=== PATIENT | female | born 1940 | race Caucasian/White ===

== ENCOUNTER → 2018-12-23 14:48 | Outpatient (CLI) | payer MEDICARE, OTHER, SELFPAY ==
[2018-12-22 13:47] VITALS: BMI 26.0
[2018-12-23 16:11] LABS: Mucous, Urine 0 SEEN /hpf (<or=2+)
[2018-12-23 16:23] LABS: Color, Urine Yellow (Yellow); Glucose, Dipstick Normal (Normal); Ketone-Dipstick Negative (Negative); Leukocyte Esterase-Dipstick 500 /ul (Negative); Nitrite-Dipstick Positive (Negative); Occult Blood-Urine 250 /ul (Negative); Protein-Dipstick 30 mg/dl (Negative); Urine Bilirubin Dipstick Negative (Negative); Urine Clarity Cloudy (Clear); Urine Urobilinogen Normal (Normal)
[2018-12-23 17:07] LABS: Bacteria 1+ /hpf (None Seen); Red Blood Cells-Urine 25-50 SEEN /hpf (0-5); Squamous Epithelial Cells - UA 0-5 SEEN /hpf (5-10); White Blood Cells 10-25 SEEN /hpf (0-5)
== END ==
PROVIDERS: Referring Provider Physician Assistant; Visit Provider Physician Assistant
DX: R30.0 Dysuria (principal)
CPT/HCPCS: 81001; 87077; 87086; 87088; 87186

== ENCOUNTER → 2020-07-12 16:30 | Outpatient (CLI) | payer MEDICARE, OTHER, SELFPAY ==
[2019-07-15 10:30] VITALS: BMI 26.0
--- NOTE | 2020-07-12 16:34 | RAD_ITS ---
STUDY: X-RAY - LEFT HAND REASON FOR EXAM: Female, 80 years old. fell today, 3rd and 4th mtp joints painful and starting to bruise TECHNIQUE: 3 view(s) of the hand. COMPARISON: None. FINDINGS: Normal radiocarpal articulation. Normal distal radioulnar joint. Normal visualized carpal bones. Normal carpal articulations Normal carpometacarpal articulation of the thumb. Normal second through fifth carpometacarpal joints. Normal metacarpi. No visualized acute fracture. Some mild degenerative changes are present in several digits. The soft tissue structures are unremarkable. RAD/Hand Min 3 Views IMPRESSION: No visualized acute process. Electronically Signed: Norris Jane MD at 17:37 EDT , Service support ,
== END ==
PROVIDERS: Referring Provider Physician Assistant Surgical; Visit Provider Physician Assistant Surgical
DX: S60.222A Contusion of left hand, initial encounter (principal); S60.00XA Contusion of unspecified finger without damage to nail, initial encounter; W19.XXXA Unspecified fall, initial encounter
CPT/HCPCS: 73130

== ENCOUNTER 2021-06-05 10:02 | Outpatient (CLI) | payer MEDICARE, OTHER, SELFPAY ==
[2021-06-05 12:07] LABS: Absolute Lymphocyte Count 20.85 X10^3/uL (0.83-4.51); Absolute Neutrophil Count 4.3 X10^3/uL (2.0-7.7); Basophil# 0.08 X10^3/uL; Basophil% 0.3 % (0-1); Eosinophil# 0.19 X10^3/uL; Eosinophils% 0.7 % (0-5); Hematocrit 37.7 % (37-47); Hemoglobin 11.7 g/dL (12.0-15.0); Lymphocyte # 20.85 X10^3/ul (0.83-4.51); Lymphocyte % 80.5 % (19-41); Mean Corpuscular Hgb 29.5 pg (27.0-32.0); Mean Platelet Vol. 10.4 fl (6.2-12.0); Monocyte# 0.44 X10^3/uL; Monocyte% 1.7 % (0-10); NRBC Flagged by Analyzer 0 % (0-5); Neutrophil % 16.6 % (47-70); POSITIVE DIFFERENTIAL YES; POSITIVE MORPHOLOGY YES; Platelet Count 229 K/mm3 (150-450); RBC Distribution Width CV 14.2 % (11.6-14.6); RBC Distribution Width SD 49.2 fl (35.1-43.9); Red Blood Count 3.97 M/mm3 (4.2-5.4); White Blood Count 25.9 K/mm3 (4.4-11.0)
[2021-06-05 12:15] LABS: Differential Indicated SCAN CRITERIA MET
[2021-06-05 12:27] LABS: Vitamin D,25 Hydroxy 20.4 ng/mL
[2021-06-05 12:43] LABS: AST(SGOT) 22 U/L (15-37); Alanine Aminotransfer ALT/SGPT 23 U/L (13-56); Albumin, Serum 3.5 g/dL (3.2-5.0); Alkaline Phosphatase 76 U/L (45-117); Anion Gap 4 (5-15); BUN 15 mg/dL (7-18); Calcium,Total 9.2 mg/dL (8.5-10.1); Chloride 111 mmol/L (98-107); Cholesterol 188 mg/dL (200); EST Glomerular Filtration Rate 56 mL/min (>60); Est Glom Filt Rate - Afr Amer 68 mL/min (>60); Globulin 3.6 g/dL (2.2-4.2); Glucose 99 mg/dL (74-106); High Density Lipoprotein 76 mg/dL; Potassium 4.7 mmol/L (3.5-5.1); Protein, Total 7.1 g/dL (6.4-8.2); Sodium Level 140 mmol/L (136-145); Thyroid Stim Hormone (TSH) 6.33 uIU/mL (0.358-3.74); Triglycerides 89 mg/dL; Very Low Density Lipoprotein 18 mg/dL (5-40)
[2021-06-05 13:49] LABS: Free T3 2.6 pg/mL (2.18-3.98); T4 Free Direct 0.81 ng/dL (0.76-1.46)
== END 2021-06-05 23:59 | disposition home or self-care (01) ==
LOC: BIMLAB 10:03
PROVIDERS: PCP Internal Medicine; Referring Provider Internal Medicine; Visit Provider Internal Medicine
DX: I35.0 Nonrheumatic aortic (valve) stenosis (principal); I35.1 Nonrheumatic aortic (valve) insufficiency; R03.0 Elevated blood-pressure reading, without diagnosis of hypertension; H40.9 Unspecified glaucoma; E55.9 Vitamin D deficiency, unspecified
CPT/HCPCS: 36415; 80053; 80061; 82306; 84439; 84443; 84481; 85025

== ENCOUNTER 2021-06-05 14:10 | Outpatient (CLI) | payer MEDICARE, OTHER, SELFPAY ==
--- NOTE | 2021-06-05 14:11 | ECHOD_ITS ---
Reason For Study: Preop Procedure This was a 2D Doppler, Color Flow transthoracic echocardiogram. Exam performed in department. Left Ventricle Normal LV size. Left ventricular systolic function is normal. Stage 1 diastolic dysfunction. No regional wall motion abnormalities noted. Right Ventricle Normal RV size. Normal systolic function. Atria Normal left atrium. Normal right atrium. Mitral Valve Normal mitral valve. Mild (1+) eccentric mitral valve insufficiency. Tricuspid Valve Normal tricuspid valve. Mild to moderate (1-2+) tricuspid valve insufficiency. Pulmonary artery systolic pressure is 40 mmHg. Aortic Valve Trisinus/trileaflet aortic valve. Moderate focal aortic valve calcification. Peak aortic valve gradient 78 mmHg. Mean aortic valve gradient 41 mmHg. Severe aortic stenosis. Mild (1+) aortic valve insufficiency. Pericardium/Pleural No pericardial effusion. MMode/2D Measurements & Calculations LVIDd: 4.6 cm IVSd: 0.78 cm LVOT diam: 1.8 cm LVIDs: 2.6 cm LVPWd: 0.81 cm LVOT area: 2.5 cm2 RVDd: 2.9 cm FS: 43.5 % Ao root diam: 2.6 cm LAV(MOD-bp): 35.2 ml LVAd ap4: 22.5 cm2 LAV(MOD-bp) Indexed: 23.6 ml/m2 LVLd ap4: 7.2 cm LAV(MOD-sp2): 41.9 ml EDV(MOD-sp4): 57.5 ml LAV(MOD-sp4): 28.6 ml EDV(sp4-el): 59.9 ml LVAs ap4: 11.0 cm2 LVLs ap4: 5.5 cm ESV(MOD-sp4): 17.7 ml ESV(sp4-el): 18.6 ml EF(MOD-sp4): 69.2 % EF(sp4-el): 69.0 % SV(MOD-sp4): 39.8 ml SV(sp4-el): 41.4 ml LA A4 area: 13.0 cm2 LA dimension(2D): 4.3 cm RA A4 area: 12.7 cm2 Doppler Measurements & Calculations MV E max moi: 84.1 cm/sec Med Peak E' Moi: 6.9 cm/sec Ao V2 max: 442.7 cm/sec MV A max moi: 115.4 cm/sec E/E' med: 12.2 Ao max P.4 mmHg MV E/A: 0.73 Ao V2 mean: 302.6 cm/sec Ao mean P.1 mmHg Ao V2 VTI: 106.4 cm THALIA(I,D): 0.74 cm2 THALIA(V,D): 0.74 cm2 AI max moi: 481.0 cm/sec LV V1 max: 130.0 cm/sec SV(LVOT): 78.6 ml AI max P.8 mmHg LV V1 max P.8 mmHg AI dec slope: 357.3 cm/sec2 LV V1 mean P.5 mmHg AI P1/2t: 394.4 msec LV V1 mean: 87.8 cm/sec LV V1 VTI: 31.1 cm PA V2 max: 102.0 cm/sec TR max moi: 303.6 cm/sec TR max P.9 mmHg ECHO/Echo Complete Interpretation Summary Normal LV size. Left ventricular systolic function is normal. Stage 1 diastolic dysfunction. Severe aortic stenosis. Mild (1+) aortic valve insufficiency. Mean aortic valve gradient 41 mmHg. Ordering Physician: Megan Bernardo Referring Physician: Megan Bernardo Performed By: Ilana Eldridge RDCS, RVT
--- NOTE | 2021-06-06 10:10 | EKG12_ITS ---
Test Reason : PRE OP Blood Pressure : / mmHG Vent. Rate : 063 BPM Atrial Rate : 063 BPM P-R Int : 170 ms QRS Dur : 084 ms QT Int : 428 ms P-R-T Axes : 066 002 046 degrees QTc Int : 437 ms Normal sinus rhythm Nonspecific ST abnormality Abnormal ECG Confirmed by WILL ALONZO, ENOCH ([id number]), publishing editor RUSTY GABRIEL ([id number]) on 06/06/2021 10:11:14 AM Referred By: Megan Bernardo Confirmed By:ENOCH SOLIS MD
== END 2021-06-05 23:59 | disposition home or self-care (01) ==
PROVIDERS: PCP Internal Medicine; Referring Provider Internal Medicine; Visit Provider Internal Medicine
DX: Z01.818 Encounter for other preprocedural examination (principal); I35.0 Nonrheumatic aortic (valve) stenosis; I35.1 Nonrheumatic aortic (valve) insufficiency; H40.9 Unspecified glaucoma; I10 Essential (primary) hypertension; E55.9 Vitamin D deficiency, unspecified
CPT/HCPCS: 36415; 80053; 80061; 82306; 84439; 84443; 84481; 85025; 93005; 93306

== ENCOUNTER 2021-06-13 07:58 | Outpatient (CLI) | payer MEDICARE, OTHER, SELFPAY | END 2021-06-13 23:59 | disposition home or self-care (01) | PROVIDERS: PCP Internal Medicine; Referring Provider Internal Medicine; Visit Provider Internal Medicine | DX: C91.10 Chronic lymphocytic leukemia of B-cell type not having achieved remission (principal) | CPT/HCPCS: 36415 ==

== ENCOUNTER → 2021-08-23 | Outpatient (CLI) | payer MEDICARE, OTHER, SELFPAY ==
--- NOTE | 2021-08-23 12:19 | US_ITS ---
STUDY: SUPERFICIAL ULTRASOUND - REASON FOR EXAM: Female, 81 years old. soft tissue lump left inner knee TECHNIQUE: A superficial ultrasound was performed with real-time and static jeffers-scale imaging. COMPARISON: None. FINDINGS: Limited images area of clinical concern medial aspect of the left knee. No definite fluid collection or soft tissue abnormality identified in the region. US/Ext Non Vasc Limited/Soft Tiss IMPRESSION: No definite abnormality. Electronically Signed: Brenda Mart MD at 4:15 EDT ,
--- NOTE | 2021-08-23 12:19 | CDU_ITS ---
Reason For Study: Tinnitus, HTN Rt. Velocities/BP Lt. Velocities/BP Prox CCA 104.7/20.0 cm/sec. Prox CCA 78.3/15.7 cm/sec. Mid CCA 89.1/16.0 cm/sec. Mid CCA 67.3/15.7 cm/sec. Dist CCA 43.4/10.8 cm/sec. Dist CCA 67.3/16.8 cm/sec. Prox ICA 55.3/13.5 cm/sec. Prox ICA 55.3/12.4 cm/sec. Mid ICA 65.1/15.7 cm/sec. Mid ICA 112.4/25.6 cm/sec. Dist ICA 104.7/18.8 cm/sec. Dist ICA 83.9/19.0 cm/sec. Rt. ICA/CCA = 1.2. Lt. ICA/CCA = 1.7. Prox ECA 132.1/13.3 cm/sec. Prox ECA 47.6/6.9 cm/sec. Rt. Vert. 95.5/13.3 cm/sec. Lt. Vert. 75.0/15.7 cm/sec. Right Extracranial There is intimal thickening but no significant atherosclerotic plaque noted in the right common carotid artery. There is intimal thickening but no significant atherosclerotic plaque noted in the right internal carotid artery. There is homogeneous, smooth atherosclerotic plaque noted in the right external carotid artery. Antegrade flow is noted in the right vertebral artery. Left Extracranial There is intimal thickening but no significant atherosclerotic plaque noted in the left common carotid artery. There is intimal thickening but no significant atherosclerotic plaque noted in the left internal carotid artery. There is homogeneous, smooth atherosclerotic plaque noted in the left external carotid artery. Antegrade flow is noted in the left vertebral artery. Procedure Carotid Duplex [id number]. This is a Carotid Duplex examination using B-mode, color flow and specral Doppler. The exam was diagnostic. Exam performed in department. VL/Carotid Duplex Ultrasound Interpretation Summary Intimal thickening of the proximal right internal carotid artery with less than 50% stenosis Less than 50% stenosis right external carotid artery Minimal smooth plaque at the proximal left internal carotid artery with less th an 50% stenosis Less than 50% stenosis left external carotid artery Patent and antegrade vertebral arteries bilaterally Ordering Physician: Megan Bernardo Performed By: Marlon Anne RVT
== END | disposition home or self-care (01) ==
PROVIDERS: PCP Internal Medicine; Referring Provider Internal Medicine; Visit Provider Internal Medicine
DX: I10 Essential (primary) hypertension (principal); I79.8 Other disorders of arteries, arterioles and capillaries in diseases classified elsewhere; I35.1 Nonrheumatic aortic (valve) insufficiency; I35.0 Nonrheumatic aortic (valve) stenosis; H93.19 Tinnitus, unspecified ear; M79.9 Soft tissue disorder, unspecified
CPT/HCPCS: 76882; 93880

== ENCOUNTER → 2021-09-14 | Outpatient (CLI) | payer MEDICARE, OTHER, SELFPAY ==
--- NOTE | 2021-09-14 16:30 | RAD_ITS ---
STUDY: XR Chest 2 Views 09/14/2021 4:34 PM REASON FOR EXAM: Female, 81 years old. CHEST PAIN aortic valve stenosis COMPARISON: None TECHNIQUE: XR Chest 2 Views FINDINGS: There is no demonstrated pleural abnormality. Normal heart size. Normal mediastinum. Normal juan manuel. Prominent appearing increased interstitial lung markings. Normal visualized pulmonary arteries. There is atherosclerotic calcification of the aortic arch with tortuosity. There are diffuse degenerative changes of the visualized thoracic spine. There is degenerative osteoarthritis of the bilateral shoulders. There is no demonstrated abnormality of the visualized soft tissue structures of the upper abdomen. RAD/Chest PA and Lateral IMPRESSION: There are no acute findings. Electronically Signed: Terrence Nice MD at 16:44 EDT ,
[2021-09-14 17:53] LABS: Absolute Lymphocyte Count 23.56 X10^3/uL (0.83-4.51); Basophil# 0.09 X10^3/uL; Basophil% 0.3 % (0-1); Eosinophil# 0.11 X10^3/uL; Eosinophils% 0.4 % (0-5); Hematocrit 36.3 % (37-47); Hemoglobin 11.3 g/dL (12.0-15.0); Lymphocyte # 23.56 X10^3/ul (0.83-4.51); Lymphocyte % 80.4 % (19-41); Mean Corp Hgb Conc 31.1 g/dL (32-36); Mean Corpuscular Hgb 29.4 pg (27.0-32.0); Mean Corpuscular Volume 94.5 fL (81-99); Mean Platelet Vol. 10.5 fl (6.2-12.0); Monocyte# 0.51 X10^3/uL; Monocyte% 1.7 % (0-10); NRBC Flagged by Analyzer 0 % (0-5); Neutrophil # 4.97 X10^3/uL (2.7-7.7); POSITIVE DIFFERENTIAL YES; POSITIVE MORPHOLOGY YES; Platelet Count 276 K/mm3 (150-450); RBC Distribution Width CV 13.9 % (11.6-14.6); RBC Distribution Width SD 48.3 fl (35.1-43.9); Red Blood Count 3.84 M/mm3 (4.2-5.4); White Blood Count 29.3 K/mm3 (4.4-11.0)
[2021-09-14 18:02] LABS: Prothrombin Time (Protime)PT. 12.8 SECONDS (11.7-14.9)
[2021-09-14 18:03] LABS: Partial Thromboplast Time 29.2 Seconds (24.1-36.2)
[2021-09-14 18:32] LABS: Differential Indicated SCAN CRITERIA MET
[2021-09-14 18:48] LABS: Anion Gap 4 (5-15); BUN 26 mg/dL (7-18); BUN/Creat Ratio 22.4 RATIO (10-20); Calcium,Total 9.1 mg/dL (8.5-10.1); Chloride 110 mmol/L (98-107); Creatinine, Serum 1.16 mg/dL (0.55-1.02); EST Glomerular Filtration Rate 48 mL/min (>60); Est Glom Filt Rate - Afr Amer 58 mL/min (>60); Glucose 99 mg/dL (74-106); Potassium 4.9 mmol/L (3.5-5.1); Sodium Level 140 mmol/L (136-145)
[2021-09-14 18:52] LABS: Anisocytosis RARE; Atypical Lymphocyte 1+ %; Macrocytosis RARE; Platelet Estimate ADEQUATE (ADEQ); Red Cell Morphology N CHROM NORMAL (NORM C&C)
[2021-09-15 13:53] LABS: Pathologist Review Reviewed
== END | disposition home or self-care (01) ==
PROVIDERS: PCP Internal Medicine; Visit Provider Internal Medicine Cardiovascular Disease
DX: I65.29 Occlusion and stenosis of unspecified carotid artery (principal); C91.10 Chronic lymphocytic leukemia of B-cell type not having achieved remission; I35.2 Nonrheumatic aortic (valve) stenosis with insufficiency; I10 Essential (primary) hypertension; S60.222A Contusion of left hand, initial encounter; S60.00XA Contusion of unspecified finger without damage to nail, initial encounter
CPT/HCPCS: 36415; 71046; 80048; 85025; 85610; 85730

== ENCOUNTER 2021-09-29 08:24 | Day surgery (SDC) | payer MEDICARE, OTHER, SELFPAY ==
--- NOTE | 2021-09-26 18:40 | HP.PCM_ITS ---
History and Physical Date of Admission: 09/29/21 [facility] [address] [place] [address] OFFICE VISIT Date of Service:? 09/14/21 MR#: [id number] Acct: [id number] Name:ASHLEY ROQUE Rep #: [id number] : 1940 Provider: Dr. Maurice Puri MD Age/Sex:? 81/F Location[place] [facility] [place] Status: Signed HPI HPI History of Present Illness Surgical H&P: Yes Details: This is an 81-year-old white female who presents today for outpatient cardiovascular consultation based upon concerns of aortic valve stenosis/insufficiency.? She states that she has been diagnosed with a cardiac murmur.? This led to evaluation with a transthoracic echocardiogram.? Based upon the transthoracic echocardiogram report she was diagnosed with severe aortic valve stenosis and mild aortic valve insufficiency. She also states she has been diagnosed with carotid artery disease based upon a recent carotid artery duplex study.? The report is noted below. Overall the patient states she remains active.? She states she works approximately 20 hours/week at [employer].? She notes that overall she believes she feels well.? She states she has had 2 episodes where she felt chest tightness.? She felt it was related to her bra being tight .? However she states she has not sure if that is what it was or whether it was truly something else.? She appears to deny ongoing chest discomfort on a routine basis at rest or with exertion.? She denies any episodes compatible with acute CHF or pulmonary edema.? She does not seem to complain of progressive shortness of breath/dyspnea.? She remains without any near-syncope or syncope.? She remains active. To the best of her knowledge she has not had cardiovascular studies in the past.? She is noted in the office today to have an ECG that demonstrated sinus rhythm with an occasional PAC. She states she has a sister with a similar heart valve problem that recently had a TAVR procedure performed at [facility]. Of note she also carries a diagnosis of CLL.? She follows with [facility] hematology oncology.? She notes thus far she has been stable and has not required any therapy. She did have lipid labs performed on 06-05-2021.? The total cholesterol was 188 with an LDL of 94 and an HDL 76.? The triglycerides are 89.? Of note the patient is not on lipid-lowering medical therapy. Intake Vital Signs ? 06/06/2207:43 09/14/2213:28 09/14/2213:33 Height 4 ft 11 in 4 ft 11 in 4 ft 11 in Weight: ? ? 120 lb BMI ? ? 24.2 BP ? ? 134/84 H Blood Pressure Location ? ? Lt brachial Position ? ? Sitting Respiration ? ? 16 Pulse ? ? 64 Pulse Source ? ? Auscultation Intake Visit Reasons:?AORTIC STENOSIS/REF. ETHEL Youth Worker Required: No Accompanied by: Daughter Allergies No Known Allergies Allergy (Verified 09/14/21 14:33) Medications calcium carbonate 600 mg calcium (1,500 mg) tablet (Calcium) 600 mg PO DAILY 06/05/21 [History Confirmed 09/14/21] magnesium 200 mg tablet 200 mg PO DAILY 06/05/21 [History Confirmed 09/14/21] zinc acetate 25 mg (zinc) capsule (Galzin) 25 mg PO DAILY 06/05/21 [History Confirmed 09/14/21] lisinopril 10 mg tablet 10 mg PO DAILY #60 tabs 08/09/21 [Rx Confirmed 09/14/21] ascorbic acid (vitamin C) 500 mg capsule 500 mg PO DAILY PRN 09/14/21 [History Confirmed 09/14/21] aspirin 81 mg tablet,delayed release 81 mg PO DAILY #1 TAB 09/14/21 [Rx Confirmed 09/14/21] PFSH Medical History? Aortic regurgitation Aortic stenosis Diarrhea Incontinence Limb weakness Nonrheumatic aortic (valve) stenosis with insufficiency Shoulder pain Surgical History? History of bilateral cataract extraction Family History? Other Colon cancer Diabetes Myocardial infarction Social History? household members:? other details: number of children:? 4 current occupational status:? 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 Former smoker alcohol intake:? never substance use type:? does not use caffeine:? Yes Type: tea Number of servings: 1 ROS Const Const: Negative for fatigue, weakness, body ache, fever(s), headache(s), chills, frequent falls, night sweats, daytime sleepiness, difficulty sleeping, excessive sweating, weight gain, weight loss, increased appetite, poor appetite, anorexia or other Eyes Eyes: Negative for blurry vision or double vision ENT ENT: Negative for headache(s), dizziness or balance problems Cardio Chest Pain: No Palpitations: No Edema: None Muscle aches with walking: None Resp Respiratory: Negative for SOB with activity, SOB at rest, SOB orthopnea\SOB lying down, Cough, Coughing up blood/hemoptysis, chest congestion, pain on inspiration, snoring, stridor, wheezing, crackles, paroxysmal nocturnal dyspnea or other Musc Musc: Negative for muscle aches/ myalgia, muscle weakness, joint pain or balance problems Neuro Neuro: Negative for dizziness, lightheadedness, near syncope, syncope, orthostatic symptoms, frequent falls, headache(s), weakness, confusion, memory loss, restless legs, blurry vision, double vision, vertigo, seizures, lack of coordination or other Endo Endo: Negative for fatigue or excessive sweating Cardiology Exam Const Appearance: cooperative, healthy appearing, comfortable, no acute distress, well developed and well groomed Nutritional Appearance: average body habitus Orientation: alert, awake and oriented x3 Head Head: normal to inspection, normocephalic and atraumatic Ears: hearing grossly normal bilaterally Nose: external nose normal Face and Sinus: face symmetric Eyes Eyelids: eyelids normal Conjunctivae: conjunctivae normal Pupils: PERRL EOM: EOM intact bilaterally Neck Neck: normal visual inspection and full ROM Carotids: delayed carotid upstroke Chest Chest inspection: normal inspection of the chest, symmetric chest movement and normal respiratory effort Auscultation: Bilateral: Clear to Auscultation Cardio Palpation: normal PMI Rate: regular rate Rhythm: regular rhythm Heart sounds: S1 normal, S2 normal, murmur and diminished A2 Murmur: Grade 3/6, harsh, mid systolic, crescendo, LLSB, LVOT, sternal notch and radiates to carotids Grade 2/6 soft diastolic murmur at the lower left sternal border GI GI: normal to inspection, soft and bowel sounds present Neuro General: patient alert, patient awake, patient oriented x3 and moves all extremities Skin Skin: no rashes or lesions noted Extremities Pulses: Normal: Right Radial Pulse and Left Radial Pulse Lower Extremity Edema: None: Bilateral Musculoskel Musculoskeletal: joint tenderness Supplemental Info Supplemental Information Transthoracic echocardiogram: 06-05-2021 Reason For Study: Preop Procedure This was a 2D Doppler, Color Flow transthoracic echocardiogram. Exam performed in department. Left Ventricle Normal LV size. Left ventricular systolic function is normal. Stage 1 diastolic dysfunction. No regional wall motion abnormalities noted. Right Ventricle Normal RV size. Normal systolic function. Atria Normal left atrium. Normal right atrium. Mitral Valve Normal mitral valve. Mild (1+) eccentric mitral valve insufficiency. Tricuspid Valve Normal tricuspid valve. Mild to moderate (1-2+) tricuspid valve insufficiency. Pulmonary artery systolic pressure is 40 mmHg. Aortic Valve Trisinus/trileaflet aortic valve. Moderate focal aortic valve calcification. Peak aortic valve gradient 78 mmHg. Mean aortic valve gradient 41 mmHg. Severe aortic stenosis. Mild (1+) aortic valve insufficiency. Pericardium/Pleural No pericardial effusion. MMode/2D Measurements & Calculations LVIDd: 4.6 cm ? IVSd: 0.78 cm ? LVOT diam: 1.8 cm LVIDs: 2.6 cm ? LVPWd: 0.81 cm? LVOT area: 2.5 cm2 RVDd: 2.9 cm? FS: 43.5 % ? Ao root diam: 2.6 cm? LAV(MOD-bp): 35.2 ml ? LVAd ap4: 22.5 cm2 ? LAV(MOD-bp) Indexed: 23.6 ml/m2 ? LVLd ap4: 7.2 cm ? LAV(MOD-sp2): 41.9 ml ? EDV(MOD- sp4): 57.5 ml ? LAV(MOD-sp4): 28.6 ml ? EDV(sp4- el): 59.9 ml ? LVAs ap4: 11.0 cm2 ? LVLs ap4: 5.5 cm ? ESV(MOD- sp4): 17.7 ml ? ESV(sp4- el): 18.6 ml ? EF(MOD- sp4): 69.2 % ? EF(sp4- el): 69.0 % ? _ SV(MOD-sp4): 39.8 ml? SV(sp4-el): 41.4 ml ? LA A4 area: 13.0 cm2 ? _ LA dimension(2D): 4.3 cm ? RA A4 area: 12.7 cm2 Doppler Measurements & Calculations MV E max moi: 84.1 cm/sec? Med Peak E' Moi: 6.9 cm/sec ? ? ? Ao V2 max: 442.7 cm/sec MV A max moi: 115.4 cm/sec ? E/E' med: 12.2? Ao max P.4 mmHg MV E/A: 0.73 ? Ao V2 mean: 302.6 cm/sec ? Ao mean P.1 mmHg ? Ao V2 VTI: 106.4 cm ? THALIA(I,D): 0.74 cm2 ? THALIA(V,D): 0.74 cm2 ? _ AI max moi: 481.0 cm/sec ? LV V1 max: 130.0 cm/sec ? SV(LVOT): 78.6 ml AI max P.8 mmHg ? LV V1 max P.8 mmHg AI dec slope: 357.3 cm/sec2? LV V1 mean P.5 mmHg AI P1/2t: 394.4 msec ? LV V1 mean: 87.8 cm/sec ? LV V1 VTI: 31.1 cm ? _ PA V2 max: 102.0 cm/sec? TR max moi: 303.6 cm/sec ? TR max P.9 mmHg ECHO/Echo Complete Interpretation Summary Normal LV size. Left ventricular systolic function is normal. Stage 1 diastolic dysfunction. Severe aortic stenosis. Mild (1+) aortic valve insufficiency. Mean aortic valve gradient 41 mmHg. ? Ordering Physician: Megan Bernardo Referring Physician: Megan Bernardo Performed By: Ilana Eldridge, EPIFANIO, RVT Carotid artery study: 08/23/2021 Interpretation Summary Intimal thickening of the proximal right internal carotid artery with less than 50% stenosis Less than 50% stenosis right external carotid artery Minimal smooth plaque at the proximal left internal carotid artery with less than 50% stenosis Less than 50% stenosis left external carotid artery Patent and antegrade vertebral arteries bilaterally Labs: ?? ? LDL Cholesterol 94 mg/dL (0-130) ?? ? HDL Cholesterol 76 mg/dL (40-) ?? ? Triglycerides 89 mg/dL (-199) ?? ? VLDL Cholesterol 18 mg/dL (5-40) Diagnostics: ?? ? Electrocardiogram ? Echocardiogram ? Pulmonary: ?? ? No Data to Display Assessment and Plan Assessment and Plan (1) Nonrheumatic aortic (valve) stenosis with insufficiency: ?Status:?Acute ?Plan: She does have both aortic valve stenosis/insufficiency. Based upon her examination and her echocardiogram the aortic valve stenosis appears to be significant/severe. It is unclear as to whether or not her chest tightness that she describes is related to her aortic valve findings versus another cardiovascular finding versus a noncardiac issue. At the present time it was felt reasonable based upon her objective findings that she proceed with further diagnostic studies that would include a diagnostic cardiac catheterization to evaluate for any obvious CAD that would be required to know prior to proceeding to any type of aortic valve intervention. Following her evaluation she would then be referred to a tertiary care center to be evaluated for aortic valve replacement and depending upon her findings whether this would be surgically based or percutaneously based such as a TAVR procedure. (2) Essential hypertension: ?Status:?Acute ?Plan: She we will continue the patient care with adjustment of her medicines as deemed appropriate. (3) Carotid artery stenosis: ?Status:?Acute ?Plan: Her carotid arteries have been evaluated with carotid artery duplex study.? The results are noted below. 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 The present time it does not appear she requires additional therapy per her report or her daughter's report. ? ? ? Orders: Orders 12 Lead EKG performed by [facility] Today I10 - Essential (primary) hypertension, I35.2 - Nonrheumatic aortic (valve) stenosis with insufficiency ? Left & Right Heart Cath Today C91.10 - Chronic lymphocytic leukemia of B-cell type not having achieved remission, I10 - Essential (primary) hypertension, I35.2 - Nonrheumatic aortic (valve) stenosis with insufficiency, I65.29 - Occlusion and stenosis of unspecified carotid artery ? Basic Metabolic Profile (BMP) Today C91.10 - Chronic lymphocytic leukemia of B- cell type not having achieved remission, I10 - Essential (primary) hypertension, I35.2 - Nonrheumatic aortic (valve) stenosis with insufficiency, I65.29 - Occlusion and stenosis of unspecified carotid artery ? Partial Thromboplast Time Today C91.10 - Chronic lymphocytic leukemia of B-cell type not having achieved remission, I10 - Essential (primary) hypertension, I35.2 - Nonrheumatic aortic (valve) stenosis with insufficiency, I65.29 - Occlusion and stenosis of unspecified carotid artery, S60.00XA - Contusion of unspecified finger without damage to nail, initial encounter, S60.222A - Contusion of left hand, initial encounter ? Prothrombin Time w/INR Today C91.10 - Chronic lymphocytic leukemia of B-cell type not having achieved remission, I10 - Essential (primary) hypertension, I35.2 - Nonrheumatic aortic (valve) stenosis with insufficiency, I65.29 - Occlusion and stenosis of unspecified carotid artery, S60.00XA - Contusion of unspecified finger without damage to nail, initial encounter, S60.222A - Contusion of left hand, initial encounter ? CBC W/Diff, Automated Today C91.10 - Chronic lymphocytic leukemia of B-cell type not having achieved remission, I10 - Essential (primary) hypertension, I35.2 - Nonrheumatic aortic (valve) stenosis with insufficiency, I65.29 - Occlusion and stenosis of unspecified carotid artery, S60.00XA - Contusion of unspecified finger without damage to nail, initial encounter, S60.222A - Contusion of left hand, initial encounter ? Chest PA and Lateral Today C91.10 - Chronic lymphocytic leukemia of B-cell type not having achieved remission, I10 - Essential (primary) hypertension, I35.2 - Nonrheumatic aortic (valve) stenosis with insufficiency, I65.29 - Occlusion and stenosis of unspecified carotid artery ? Medications: New aspirin 81 mg? PO DAILY 1 TAB 0RF ? ? Plan Details Additional Comments: The above was discussed with the patient with her daughter present. The cardiac catheterization procedure with respect to the risks and benefits were discussed. The patient and daughter had the opportunity to ask questions and have their questions answered as best as possible. They were agreeable with this approach. Thank you for allowing me to participate in the care of your patient.? Please don't hesitate to call if any issues arise. This note was generated using a voice recognition system and there may be incorrect words, spelling or punctuation that were not noted when reviewing the office note prior to saving. Follow Up: ? ? 3 Months (PFM ) COVID (Procedure Consent) Procedure Criteria Procedure Criteria: Yes Elective The surgeon/proceduralist and patient have discussed in detail the risk of exposure to and/or potential harm posed by the COVID-19 virus with having a surgery/procedure at this time versus the risk of? delaying the surgery/procedure. It is not possible to know either the risk of delaying the surgery or procedure or chance of getting an infection with perfect accuracy, but a joint decision was made between the patient and the surgeon/proceduralist ?to proceed at this time with the scheduled surgery/procedure as indicated on the consent form. Coding Level of Care Code Off vis,new,level 5 Diagnoses Nonrheumatic aortic (valve) stenosis with insufficiency? I35.2 Essential hypertension? I10 Carotid artery stenosis? I65.29 CLL (chronic lymphocytic leukemia)? C91.10 Coding Level of Care Code Off vis,new,level 5 Diagnoses Nonrheumatic aortic (valve) stenosis with insufficiency? I35.2 Essential hypertension? I10 Carotid artery stenosis? I65.29 CLL (chronic lymphocytic leukemia)? C91.10 09/14/21 1601 <Electronically signed by Maurice Puri MD> Date Maurice Gutierrezigndasia Signature: Date (if applicable) CC:? Dr. Megan Bernardo MD ~ Assessment & Plan Addt'l Comments I have re-examined the patient. There are no clinical changes since date of exam
[2021-09-28 09:02] VITALS: BMI 24.2
[2021-09-29 10:50] LABS: Blood Gas Specimen Type VEN; VBG BASE EXCESS -11 mmol/L (-1.0-3.5); VBG Bicarbonate 16 mmol/L (22-26); VBG PO2 48 mmHg (25-40); VBG SO2 79 % (50-70); VBG TCO2 17 mmol/L (23-33); VBG pCO2 35.3 mmHg (41-51); VBG pH 7.27 (7.32-7.42)
[2021-09-29 10:50] LABS: Blood Gas Specimen Type VEN; VBG BASE EXCESS -10 mmol/L (-1.0-3.5); VBG Bicarbonate 17 mmol/L (22-26); VBG PO2 45 mmHg (25-40); VBG SO2 74 % (50-70); VBG TCO2 19 mmol/L (23-33); VBG pCO2 38.9 mmHg (41-51); VBG pH 7.26 (7.32-7.42)
[2021-09-29 10:56] LABS: Base Excess -11 mmol/L (-2 to +2); Bicarbonate 16.7 mmol/L (22-26); Blood Gas Specimen Type ART; PO2 84 mmHG (75-100); SO2 95 % (95-99); Total Carbon Dioxide 18 mmol/L; pCO2 37.5 mmHg (35-45); pH 7.26 (7.35-7.45)
[2021-09-29 11:05] LABS: Blood Gas Specimen Type VEN; VBG BASE EXCESS -11 mmol/L (-1.0-3.5); VBG Bicarbonate 17 mmol/L (22-26); VBG PO2 49 mmHg (25-40); VBG SO2 78 % (50-70); VBG TCO2 18 mmol/L (23-33); VBG pCO2 38.9 mmHg (41-51); VBG pH 7.24 (7.32-7.42)
--- NOTE | 2021-09-29 11:45 | CL.D_ITS ---
Patient Name: ASHLEY ALCANTAR Study Date: 09/29/2021 Performing: Maurice Puri MD Ht: 59.05 inches 150 cm : 1940 Wt: 119.05 lbs 54 kg Age: 81 Gender: female BSA: 1.48 PROCEDURE(S) PERFORMED [id number])RHC/LHC/COR CLINICAL PROFILE AND INDICATIONS Indications: Valvular Disease, Pre-Operative Evaluation Heart Failure: None Stress/Imaging Stress/Image Study Performed: No Angina Classification Anginal Classification w/in 2 Weeks: No symptoms CAD Presentations: No Sxs, no angina. CONCLUSIONS Right heart pressures - Normal Intracardiac shunting: None Single vessel CAD of the LAD: non obstructive RECOMMENDATIONS Risk factor modification Medical therapy Surgery consult for Valve Replacement surgery (possible TAVR) DESCRIPTION OF PROCEDURE The patient arrived to the procedure lab. The risks and benefits of the procedure as well as a full d escription of our services here and current unavailability of surgical backup were fully explained to the patient and/or their significant other prior to the catheterization. The Timeout was completed, verifying the correct patient and procedure. The patient's procedural site was prepped and draped in the usual fashion. Local anesthetic was given subcutaneously to right radial region with Lidocaine 2% . Local anesthetic was given subcutaneously to right groin region with Lidocaine 2%. Using a modified Seldinger technique, arterial access was obtained via the right femoral artery, a 4Fr sheath was ins erted Venous access was obtained via the right brachiocephalic vein, a 7Fr sheath was inserted. A 7Fr thermal dilution catheter was inserted and right heart pressures were recorded, it was then advanced to PA position for cardiac outputs. Thermal dilution cardiac outputs were then recorded. O2 saturations were then obtained. Left Coronary Artery selective angiography was performed in multip le views using a 4 Fr. JL5 catheter. Right Coronary Artery selective angiography was then performed i n multiple views using a 4 Fr. 3DRC catheter. The Thermal dilution catheter was then removed.The mac rial sheath was pulled and manual compression applied until hemostasis is achieved.. The venous sheat h was then pulled and manual compression applied until hemostasis achieved CORONARY ANGIOGRAPHY DOMINANCE: Co- Dominant LEFT HEART ASSESSMENT Left Ventricular Ejection Fraction: Not assessed RIGHT HEART ASSESSMENT Thermal CO: 3.96 Thermal CI: 2.68 Paula CO: 8 Paula CI: 5.41 PW: 03/11 9 PA: 25/01 17 RV: 27/04 9 RA: 11/05 5 PVR: 162 SVR: 1677 Right Heart pressures - normal Intracardiac shunting: None LEFT MAIN: Angiographically normal LEFT ANTERIOR DESCENDING ARTERY: MID LAD: 25 % Stenosis CIRCUMFLEX ARTERY: Angiographically normal RIGHT CORONARY ARTERY: Angiographically normal COMPLICATIONS No Complications PROCEDURE MEDICATIONS Versed 1 mg IV Fentanyl 50 mcg IV Versed 1 mg IV Fentanyl 50 mcg IV SUMMARY OF HEMODYNAMIC DATA Time AIR REST ECG 08:48:37 RA 11/05 (5) SV 10:42:25 RV 27/04, 9 10:42:40 PA 25/01 (17) PA 10:43:02 PW 03/11 (9) PV 10:44:38 AO 111/70 (88) SA 10:58:26 Type SV CO (l/m) CI (l/m/ HR Time AIR REST Thermal 69.50 3.96 2.68 57 08:48:37 Paula 140.40 8.00 5.41 57 08:48:37 Label % O2 Pres/Loc Time AIR REST AO 94 PV 10:52:10 SVC 77 11:00:36 IVC 78 SV 11:00:40 PA 73 PA 11:00:47 Signed By Maurice Puri MD On 09/29/2021 11:44:35 AM Maurice Puri MD
== END 2021-09-29 15:24 | disposition home or self-care (01) ==
LOC: CLSP 08:26
PROVIDERS: PCP Internal Medicine; Referring Provider Internal Medicine Cardiovascular Disease; Visit Provider Internal Medicine Cardiovascular Disease
DX: I35.2 Nonrheumatic aortic (valve) stenosis with insufficiency (principal); C91.10 Chronic lymphocytic leukemia of B-cell type not having achieved remission; I10 Essential (primary) hypertension; Z87.891 Personal history of nicotine dependence; Z79.82 Long term (current) use of aspirin
CPT/HCPCS: 82803; 93456; 99152; 99153; J7040; C1751; C1769; C1894; Q9967

== ENCOUNTER → 2021-10-18 | Outpatient (CLI) | payer MEDICARE, OTHER, SELFPAY ==
[2021-10-18 15:53] LABS: Mucous, Urine 0 SEEN /hpf (<or=2+); Red Blood Cells-Urine 0 SEEN /hpf (0-5); Squamous Epithelial Cells - UA 0 SEEN /hpf (5-10)
[2021-10-18 16:03] LABS: Color, Urine Straw (Yellow); Glucose, Dipstick Normal (Normal); Ketone-Dipstick Negative (Negative); Leukocyte Esterase-Dipstick 25 /ul (Negative); Nitrite-Dipstick Negative (Negative); Occult Blood-Urine Negative /ul (Negative); Protein-Dipstick Negative (Negative); Specific Gravity, Urine 1.015 (1.002-1.030); Urine Bilirubin Dipstick Negative (Negative); Urine Clarity Clear (Clear); Urine Urobilinogen Normal (Normal)
[2021-10-18 23:40] LABS: Bacteria 1+ /hpf (None Seen); White Blood Cells 0-5 SEEN /hpf (0-5)
== END | disposition home or self-care (01) ==
LOC: LABSPEC 15:18
PROVIDERS: PCP Internal Medicine; Referring Provider Physician Assistant; Visit Provider Physician Assistant
DX: R53.83 Other fatigue (principal)
CPT/HCPCS: 81001; 87086; 87088

== ENCOUNTER → 2022-02-23 | Outpatient (CLI) | payer MEDICARE, OTHER, SELFPAY | END | disposition home or self-care (01) | LOC: LABSPEC 09:56 | PROVIDERS: PCP Internal Medicine; Referring Provider Physician Assistant Surgical; Visit Provider Physician Assistant Surgical | DX: N39.0 Urinary tract infection, site not specified (principal); R31.9 Hematuria, unspecified | CPT/HCPCS: 87077; 87086; 87088; 87186 ==

== ENCOUNTER → 2022-03-29 | Outpatient (CLI) | payer MEDICARE, OTHER, SELFPAY ==
[2022-03-29 17:49] LABS: Bacteria 0 SEEN /hpf (None Seen); Mucous, Urine 0 SEEN /hpf (<or=2+); Red Blood Cells-Urine 0 SEEN /hpf (0-5)
[2022-03-29 19:32] LABS: Color, Urine Straw (Yellow); Glucose, Dipstick Normal (Normal); Ketone-Dipstick Negative (Negative); Leukocyte Esterase-Dipstick 25 /ul (Negative); Nitrite-Dipstick Negative (Negative); Occult Blood-Urine Negative /ul (Negative); Protein-Dipstick 15 mg/dl (Negative); Specific Gravity, Urine 1.015 (1.002-1.030); Urine Bilirubin Dipstick Negative (Negative); Urine Clarity Clear (Clear); Urine Urobilinogen Normal (Normal)
[2022-03-29 21:10] LABS: Squamous Epithelial Cells - UA 0-5 SEEN /hpf (5-10); White Blood Cells 0-5 SEEN /hpf (0-5)
== END | disposition home or self-care (01) ==
PROVIDERS: PCP Internal Medicine; Visit Provider Physician Assistant Surgical
DX: R30.0 Dysuria (principal); N39.0 Urinary tract infection, site not specified; R31.9 Hematuria, unspecified
CPT/HCPCS: 81001; 87086; 87088

== ENCOUNTER → 2022-04-04 | Outpatient (CLI) | payer MEDICARE, OTHER, SELFPAY ==
[2022-04-04 15:02] LABS: Absolute Lymphocyte Count 23.94 X10^3/uL (0.83-4.51); Absolute Neutrophil Count 5.9 X10^3/uL (2.0-7.7); Basophil# 0.09 X10^3/uL; Basophil% 0.3 % (0-1); Eosinophil# 0.17 X10^3/uL; Eosinophils% 0.5 % (0-5); Hematocrit 36.7 % (37-47); Hemoglobin 11.2 g/dL (12.0-15.0); Lymphocyte # 23.94 X10^3/ul (0.83-4.51); Lymphocyte % 77.2 % (19-41); Mean Corp Hgb Conc 30.5 g/dL (32-36); Mean Corpuscular Hgb 28.8 pg (27.0-32.0); Mean Corpuscular Volume 94.3 fL (81-99); Mean Platelet Vol. 9.8 fl (6.2-12.0); Monocyte# 0.84 X10^3/uL; Monocyte% 2.7 % (0-10); NRBC Flagged by Analyzer 0 % (0-5); Neutrophil # 5.88 X10^3/uL (2.7-7.7); POSITIVE COUNT YES; POSITIVE DIFFERENTIAL YES; POSITIVE MORPHOLOGY YES; Platelet Count 249 K/mm3 (150-450); RBC Distribution Width CV 12.6 % (11.6-14.6); RBC Distribution Width SD 43.5 fl (35.1-43.9); Red Blood Count 3.89 M/mm3 (4.2-5.4)
--- NOTE | 2022-04-04 15:05 | CT_ITS ---
EXAM: CT ABDOMEN AND PELVIS WITH INTRAVENOUS CONTRAST CLINICAL INDICATION: abd pain TECHNIQUE: Helically acquired images were obtained of the abdomen and pelvis with intravenous contrast. This CT exam was performed using one or more of the following dose reduction techniques: automated exposure control, adjustment of the mA and/or kV according to patient size, and/or use of iterative reconstruction technique. This report was created using [employer] report generation technology. CONTRAST: gastrografin and amp; 75mL Isovue 300 COMPARISON: None. FINDINGS: LOWER THORAX: Unremarkable. Lung bases are clear. No cardiomegaly. No significant pericardial effusion. ABDOMEN: LIVER: Unremarkable. Homogeneous. No focal mass. GALLBLADDER AND BILE DUCTS: Unremarkable. No calcified gallstones. No gallbladder distention or wall edema. No intra- or extrahepatic biliary ductal dilation. PANCREAS: Unremarkable. No focal cystic or solid mass. SPLEEN: Unremarkable. Normal size without focal cystic or solid mass. ADRENALS: Unremarkable. No nodules. KIDNEYS AND URETERS: There are low-density lesions on both kidneys compatible with simple cysts. No follow-up imaging is necessary. No hydronephrosis. STOMACH AND BOWEL: There are several borderline dilated loops of small bowel in the left lower abdomen which may represent enteritis. Contrast is seen throughout the small bowel and position of the colon with no evidence of obstruction. PELVIS: APPENDIX: No evidence of acute appendicitis. BLADDER: Unremarkable. REPRODUCTIVE: There is a low-density mass anterior to the uterus that measures 7.2 x 7.9 x 6.3 cm and may represent a large exophytic fibroid. ABDOMEN and PELVIS: INTRAPERITONEAL SPACE: There is free fluid seen within the upper abdomen and pelvis. No free air. BONES/JOINTS: Unremarkable. No suspicious lytic or blastic abnormality. SOFT TISSUES: There are small bilateral inguinal hernias slightly larger on the right than on the left with fluid extending into the hernia sac. VASCULATURE: There are multiple varices in the pelvis which may represent pelvic congestion syndrome. Abdominal aorta is non-dilated. LYMPH NODES: Unremarkable. No enlarged lymph nodes. CT/Abdomen/Pelvis WITH Contrast IMPRESSION: 1. Low-density mass in the pelvis which may represent a large exophytic fibroid. Further evaluation with pelvic ultrasound may be beneficial. 2. Moderate amount of free fluid in the abdomen and pelvis which may represent ascites. 3. 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 4. Borderline dilated loops of small bowel in the lower abdomen which may represent enteritis. There is no obstruction. Electronically Signed: Rodrigue Wood MD at 17:45 EST ,
[2022-04-04 15:08] LABS: Differential Indicated SCAN CRITERIA MET
[2022-04-04 15:20] LABS: ALB/GLOB Ratio 0.9 RATIO (0.9-2.4); AST(SGOT) 17 U/L (15-37); Alanine Aminotransfer ALT/SGPT 13 U/L (13-56); Albumin, Serum 3.1 g/dL (3.2-5.0); Alkaline Phosphatase 72 U/L (45-117); Anion Gap 6 (5-15); BUN 13 mg/dL (7-18); BUN/Creat Ratio 13.1 RATIO (10-20); Calcium,Total 8.9 mg/dL (8.5-10.1); Chloride 109 mmol/L (98-107); Creatinine, Serum 0.99 mg/dL (0.55-1.02); EST Glomerular Filtration Rate 57 mL/min (>60); Est Glom Filt Rate - Afr Amer 69 mL/min (>60); Globulin 3.6 g/dL (2.2-4.2); Glucose 107 mg/dL (74-106); Protein, Total 6.7 g/dL (6.4-8.2); Sodium Level 141 mmol/L (136-145)
[2022-04-04 15:51] LABS: Atypical Lymphocyte 1+ %; Differential Comment SEE COMMENTS; Reactive Lymphocyte 1+
[2022-04-04 15:52] LABS: Anisocytosis RARE; Macrocytosis RARE; Platelet Estimate ADEQUATE (ADEQ); Red Cell Morphology N CHROM NORMAL (NORM C&C)
[2022-04-06 09:48] LABS: Pathologist Review Reviewed
== END | disposition home or self-care (01) ==
LOC: CT 14:58
PROVIDERS: PCP Internal Medicine; Referring Provider Surgery; Visit Provider Surgery
DX: K46.9 Unspecified abdominal hernia without obstruction or gangrene (principal); K40.90 Unilateral inguinal hernia, without obstruction or gangrene, not specified as recurrent; R10.9 Unspecified abdominal pain
CPT/HCPCS: 36415; 74177; 80053; 85025; Q9967; A4216

== ENCOUNTER 2022-04-05 10:03 | Outpatient (CLI) | payer MEDICARE, OTHER, SELFPAY ==
--- NOTE | 2022-04-05 15:46 | US_ITS ---
INDICATION: PELVIC MASS SEEN ON CT EXAMINATION: Ultrasound US Pelvis Non-OB Complete TECHNIQUE: Transabdominal and transvaginal pelvic ultrasound was performed. Grayscale, spectral waveform, and color flow Doppler evaluation of the adnexa. COMPARISON: None. FINDINGS: UTERUS: Anteverted. The uterus measures 5.9 x 4.7 x 2.7 cm. There is a large pedunculated fibroid on the left measuring 6.1 x 8.4 x 6.4 cm The endometrial stripe measures 3 mm in AP diameter which is within normal limits. The normal ovaries are not visualized due to bowel gas producing artifact FREE FLUID: Moderate US/Pelvic (Non ) IMPRESSION: Large pedunculated fibroid in the left adnexa with moderate ascites. No definitive evidence for ovarian mass however the ovaries are not visualized due to bowel gas producing artifact MRI would be helpful for further evaluation if clinically warranted Electronically Signed: Damon Zambrano MD at 16:31 EST ,
== END 2022-04-05 23:59 | disposition home or self-care (01) ==
PROVIDERS: PCP Internal Medicine; Referring Provider Surgery; Visit Provider Surgery
DX: R93.5 Abnormal findings on diagnostic imaging of other abdominal regions, including retroperitoneum (principal); R19.00 Intra-abdominal and pelvic swelling, mass and lump, unspecified site; R10.9 Unspecified abdominal pain
CPT/HCPCS: 36415; 76856; 86304

== ENCOUNTER → 2022-04-06 | Outpatient (CLI) | payer MEDICARE, OTHER, SELFPAY ==
[2022-04-06 16:57] LABS: Potassium 3.7 mmol/L (3.5-5.1)
== END | disposition home or self-care (01) ==
LOC: LAB 15:46
PROVIDERS: PCP Internal Medicine; Referring Provider Surgery; Visit Provider Surgery
DX: E87.6 Hypokalemia (principal)
CPT/HCPCS: 36415; 84132

== ENCOUNTER → 2022-04-16 | Outpatient (CLI) | payer MEDICARE, OTHER, SELFPAY ==
[2022-04-16 15:37] LABS: Anion Gap 9 (5-15); BUN 19 mg/dL (7-18); BUN/Creat Ratio 15.3 RATIO (10-20); Calcium,Total 8.7 mg/dL (8.5-10.1); Chloride 107 mmol/L (98-107); Creatinine, Serum 1.24 mg/dL (0.55-1.02); EST Glomerular Filtration Rate 44 mL/min (>60); Est Glom Filt Rate - Afr Amer 53 mL/min (>60); Glucose 121 mg/dL (74-106); Potassium 3.8 mmol/L (3.5-5.1); Sodium Level 137 mmol/L (136-145)
== END | disposition home or self-care (01) ==
PROVIDERS: PCP Internal Medicine; Referring Provider Surgery; Visit Provider Surgery
DX: E87.6 Hypokalemia (principal)
CPT/HCPCS: 36415; 80048

== ENCOUNTER → 2022-04-25 | Outpatient (CLI) | payer MEDICARE, OTHER, SELFPAY ==
--- NOTE | 2022-04-25 14:47 | CT_ITS ---
STUDY: CT CHEST WITHOUT CONTRAST REASON FOR EXAM: Female, 81 years old. CHRONIC LYMPHOCYTIC LEUKEMIA RADIATION DOSAGE (If Supplied By Facility): CTDIvol = ( 8.26 ) mGy, DLP = ( 224.78 ) mGycm TECHNIQUE: Transaxial imaging was performed without the administration of intravenous contrast material. Multiplanar coronal and sagittal images were reformatted. Individualized dose optimization techniques were used for this CT. COMPARISON: Comparison is made with prior chest radiograph dated 09/14/2021. FINDINGS: CHEST There are small bilateral axillary lymph nodes. Scarring at the lung apices more prominent on the right side. No focal consolidation or mass lesion is seen. There is no demonstrated pleural abnormality. Status post covered stent of the aortic valve and the proximal descending thoracic aorta. Normal mediastinum. Normal hilar regions. Normal unenhanced pulmonary arteries. Normal aorta arch and descending thoracic aorta. There are degenerative changes of the thoracic spine. Fluid surrounding the liver and spleen in keeping with ascites. CT/Chest WITH Contrast IMPRESSION: Ascites in the upper abdomen. Scarring at the lung apices more prominent on the right side. Small bilateral axillary lymph nodes. Mild scarring at the lung apices more prominent on the right side. Electronically Signed: Mahad Rojas MD at 15:27 [facility] ,
== END | disposition home or self-care (01) ==
LOC: CT 14:46
PROVIDERS: PCP Internal Medicine; Referring Provider Obstetrics & Gynecology Gynecologic Oncology; Visit Provider Obstetrics & Gynecology Gynecologic Oncology
DX: C91.10 Chronic lymphocytic leukemia of B-cell type not having achieved remission (principal)
CPT/HCPCS: 71260; Q9967

== ENCOUNTER 2022-04-28 10:23 | Inpatient (IN) | payer MEDICARE, OTHER, SELFPAY ==
[2022-04-28 10:25] VITALS: BP 104/60; PULSE 74; RESP 16; TEMP 36.2; O2SAT 97; BMI 23.6
--- NOTE | 2022-04-28 10:47 | EX.ED.DYSGE1 ---
HPI History of Present Illness Chief Complaint: Abd Pain Informant: patient Narrative Narrative: Patient presents stating that her doctor called her and advised she needs to be admitted for IV antibiotics. Patient was initially seen by her primary care physician in late March with lower abdominal pain. She was found to have an inguinal hernia and was evaluated by Dr. Morse on April 04. A CT scan was performed that revealed a pelvic mass, questionable fibroid and moderate free fluid. An ultrasound revealed a large fibroid with moderate ascites. Ovaries are not well visualized. Patient's CA125 is elevated. She has now been following with Dr. Mar, GynOnc at [facility]. About a week ago she had a very small amount of fluid removed with paracentesis. This revealed no evidence of malignant cells, but sufficient fluid quantity for further testing was not possible. Patient underwent ultrasound-guided paracentesis yesterday at [facility]. She states they removed 2.3 L of fluid from her abdomen. She received a phone call this morning that the fluid is infected and she needs to present to the local hospital to be admitted for IV antibiotics. I was able to review the lab findings that are available in [facility]. Her abdominal fluid contained 1531 white blood cells and 3000 RBCs. Differential includes 55% neutrophils, 26% lymphocytes, 18% monocytes. Patient reports having intermittent fevers for the last several weeks. She believes her last fever was at least 2 days ago, but states she has been taking Tylenol regularly. She reports that her abdominal pain seems to be improved after the paracentesis yesterday. [facility] Medical History Aortic regurgitation Aortic stenosis CKD (chronic kidney disease) Contact with and (suspected) exposure to other viral communicable diseases Diarrhea History of right and left heart catheterization (LHC) (~09/29/21) Incontinence Limb weakness Mixed hyperlipidemia Nonrheumatic aortic (valve) stenosis with insufficiency Shoulder pain Urinary tract infection with hematuria Home Medications aspirin 81 mg tablet,delayed release 81 mg PO DAILY #1 TAB 09/14/21 [Rx Last Taken 04/26/22] ferrous sulfate 325 mg (65 mg iron) tablet 325 mg PO QODAY 01/29/22 [History Last Taken 04/25/22] amoxicillin 500 mg capsule 500 mg PO TID sinus pain #21 caps 04/21/22 [Rx Last Taken 04/27/22] atorvastatin 20 mg tablet 20 mg PO QHS CHOLESTEROL 04/28/22 [History Last Taken Unknown] lisinopril 40 mg tablet 40 mg PO DAILY BP 04/28/22 [History Last Taken 04/23/22] Allergy/AdvReac Type Severity Reaction Status Date / Time Keflex Allergy Severe Swollen Uncoded 04/28/22 10:24 lips Family History Other Colon cancer Diabetes Myocardial infarction Surgical History History of bilateral cataract extraction S/P TAVR (transcatheter aortic valve replacement) (~12/14/21) Social History household members: other details: number of children: 4 current occupational 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 Smoking Status: Former smoker alcohol intake: never substance use type: does not use caffeine: Yes Type: tea Number of servings: 1 ROS ROS ED Constitutional Constitutional ED: Reports fever(s); Denies chills Eyes Eyes: Denies change in vision or discharge from eye(s) ENT ENT ED: Denies discharge from eye(s), rhinorrhea or sore throat Cardiovascular Cardiovascular: Denies chest pain or palpitations Respiratory/Chest Respiratory/Chest: Denies cough or dyspnea Gastrointestinal Gastrointestinal: Reports abdominal pain; Denies diarrhea, nausea or vomiting Genitourinary Genitourinary ED: Denies difficulty urinating or dysuria Musculoskeletal Musculoskeletal: Denies back pain or extremity pain Integumentary Denies Abrasions or rash Neurologic Neurologic: Denies headache(s) or weakness Psychiatric Psychiatric: Denies anxiety or depression Allergic/Immunologic Allergic/Immunologic ED: Denies lip swelling or urticaria EXAM Physical Exam Const Vital Signs: 04/28/22 10:25 Temperature 97.2 F L Temperature Source Temporal Pulse Rate 74 Respiratory Rate 16 Blood Pressure 104/60 Blood Pressure Mean 74 Pulse Ox 97 Oxygen Delivery Method Room Air Positive well nourished and well developed General Appearance ED: well developed HEENT Reports normocephalic and head/scalp atraumatic Eyes PERRL and EOMs intact bilaterally Neck supple Chest Wall inspection of chest normal and palpation of chest normal Resp normal respiratory effort and clear to auscultation bilaterally Cardio regular rate and regular rhythm GI GI Narrative: Abdomen is soft and mildly distended. No focal tenderness. Dressing in place to left lower quadrant at her paracentesis site. Palpation: soft Back/Spine no CVA tenderness Extremity normal to inspection Neuro oriented x3 and no sensory deficits noted Sensorium / Orientation: alert Motor Exam: strength 5/5 throughout Psych mental status grossly normal Skin no rashes or lesions noted MDM MDM MDM Narrative Medical decision making narrative: Lab work obtained along with blood cultures. Patient given a dose of IV Zosyn. Lab work from outside hospital was reviewed. Lab Data Attestation: I reviewed the patient's lab results. Labs: Laboratory Results - last 24 hr 04/28/22 04/28/22 04/28/22 11:05 11:05 11:05 WBC 53.6 H* RBC 3.21 L Hgb 9.0 L Hct 28.8 L MCV 89.7 MCH 28.0 MCHC 31.3 L RDW Std Deviation 45.3 H RDW Coeff of Zack 13.9 Plt Count 574 H MPV 9.4 Immature Gran % (Auto) 0.400 Neut % (Auto) 20.5 L Lymph % (Auto) 77.1 H Logan % (Auto) 1.5 Eos % (Auto) 0.4 Baso % (Auto) 0.1 Absolute Neuts (auto) 11.0 H Absolute Lymphs (auto) 41.32 H Nucleated RBC % 0 PT 15.6 H INR 1.3 APTT 48.6 H Sodium 136 Potassium 3.4 L Chloride 108 H Carbon Dioxide 18.0 L Anion Gap 10 BUN 24 H Creatinine 1.12 H Estim Creat Clear Calc 32.50 Est GFR (MDRD) Af Amer 60 Est GFR (MDRD) Non-Af 49 L BUN/Creatinine Ratio 21.4 H Glucose 118 H Calcium 8.1 L Total Bilirubin 0.30 Direct Bilirubin 0.11 AST 18 ALT 9 L Alkaline Phosphatase 71 Total Protein 5.5 L Albumin 1.7 L Globulin 3.8 Treatment and Re-Evaluation Narrative: White blood cell count today is 53.6 up from 31,000 earlier this month. She does have a history of CLL with chronically elevated white count. She has 20% neutrophils and 77% lymphocytes. Coags are largely unremarkable. Chemistry studies reveal slightly low potassium at 3.4. Bicarb slightly low at 18. BUN is 24 and creatinine is 1.12. This does appear to be consistent with her baseline. LFTs are unremarkable. Blood cultures are pending. I have given the patient a dose of Zosyn. I will speak with hospitalist regarding admission for further antibiotic therapy while awaiting culture results from her paracentesis fluid. Discharge Plan Triage Chief Complaint: Abd Pain ED Provider: Monica Dueñas Dx/Rx/DC Orders Clinical Impression: Peritonitis Prescriptions: No Action aspirin 81 mg tablet,delayed release (DR/EC) 81 mg PO DAILY Qty: 1 0RF ferrous sulfate 325 mg (65 mg iron) tablet 325 mg PO QODAY lisinopril 40 mg tablet 40 mg PO DAILY Label Comments: TAKE 1 TABLET BY MOUTH ONCE DAILY atorvastatin 20 mg tablet 20 mg PO QHS amoxicillin 500 mg capsule 500 mg PO TID Qty: 21 0RF Primary Care Provider: Megan Bernardo Referrals: Megan Bernardo MD [Primary Care Provider] - Disposition Disposition: Acute Care Hospital [facility]
[2022-04-28 11:31] LABS: Basophil% 0.1 % (0-1); Eosinophils% 0.4 % (0-5); Hematocrit 28.8 % (37-47); Lymphocyte # 41.32 X10^3/ul (0.83-4.51); Lymphocyte % 77.1 % (19-41); Mean Corp Hgb Conc 31.3 g/dL (32-36); Mean Corpuscular Volume 89.7 fL (81-99); Mean Platelet Vol. 9.4 fl (6.2-12.0); Monocyte% 1.5 % (0-10); Neutrophil # 10.96 X10^3/uL (2.7-7.7); Neutrophil % 20.5 % (47-70); POSITIVE COUNT YES; POSITIVE DIFFERENTIAL YES; POSITIVE MORPHOLOGY YES; Platelet Count 574 K/mm3 (150-450); RBC Distribution Width CV 13.9 % (11.6-14.6); RBC Distribution Width SD 45.3 fl (35.1-43.9); Red Blood Count 3.21 M/mm3 (4.2-5.4); White Blood Count 53.6 K/mm3 (4.4-11.0)
[2022-04-28 11:32] LABS: Absolute Lymphocyte Count 41.32 X10^3/uL (0.83-4.51); Basophil# 0.06 X10^3/uL; Eosinophil# 0.19 X10^3/uL; NRBC Flagged by Analyzer 0 % (0-5)
[2022-04-28 11:38] LABS: International Normalized Ratio 1.3; Partial Thromboplast Time 48.6 Seconds (24.1-36.2); Prothrombin Time (Protime)PT. 15.6 SECONDS (11.7-14.9)
[2022-04-28 11:40] LABS: Differential Indicated SCAN CRITERIA MET
[2022-04-28 11:45] LABS: BUN 24 mg/dL (7-18); Creatinine, Serum 1.12 mg/dL (0.55-1.02); Glucose 118 mg/dL (74-106)
[2022-04-28 11:46] LABS: AST(SGOT) 18 U/L (15-37); Alanine Aminotransfer ALT/SGPT 9 U/L (13-56); Albumin, Serum 1.7 g/dL (3.2-5.0); Alkaline Phosphatase 71 U/L (45-117); Anion Gap 10 (5-15); BUN/Creat Ratio 21.4 RATIO (10-20); Bilirubin, Direct 0.11 mg/dL (0.00-0.30); Calcium,Total 8.1 mg/dL (8.5-10.1); Chloride 108 mmol/L (98-107); EST Glomerular Filtration Rate 49 mL/min (>60); Est Glom Filt Rate - Afr Amer 60 mL/min (>60); Globulin 3.8 g/dL (2.2-4.2); Potassium 3.4 mmol/L (3.5-5.1); Protein, Total 5.5 g/dL (6.4-8.2); Sodium Level 136 mmol/L (136-145)
[2022-04-28 12:04] LABS: Differential Comment SCANNED
[2022-04-28 12:35] VITALS: BP 104/78; PULSE 74; RESP 16; TEMP 36.6; O2SAT 99
[2022-04-28 12:43] VITALS: BMI 24.0
[2022-04-28 13:31] VITALS: BP 111/48; PULSE 67; RESP 18; TEMP 36.6; O2SAT 100
--- NOTE | 2022-04-28 15:05 | PCM.HP.STD ---
HPI - General General Date of Admission: 04/28/22 Date of Service: 04/28/22 Chief Complaint: Abnormal outpatient lab HPI Narrative ASHLEY ALCANTAR, is a 81 F who presents to the emergency room at [facility] at the direction of her personnel manager/oncology physician. Patient had a paracentesis performed yesterday at the [facility] under her doctors direction, it returned white blood cells in the paracentesis fluid and she was advised to go to the emergency room and be admitted for IV antibiotics for possible peritonitis. 2.3 L of fluid was removed yesterday, emergency room physician told me that her white blood cell count was 1531 in the fluid. Patient denies any fevers or chills recently, she states that approximately 2 weeks ago she did not feel well and at that time she did have some chills and felt feverish. Patient states earlier this month that she had a CAT scan performed due to abdominal distention, it showed an abnormality in the pelvic area with fluid accumulation, there was discussion between the surgeon who ordered the CAT scan and the patient's primary care physician about who should follow-up on this fluid, patient became impatient and was referred to an ENGINEERING DESIGN SUPERVISOR-oncologist at the [facility], she went for a second opinion to another gynecological oncologist and he ordered a paracentesis after first trying to remove some fluid in his office approximately a week ago without obtaining very much fluid. Again, 2.3 L were removed yesterday. There was noted to be 1531 white cells in the fluid with 55% neutrophils, there were 3000 red blood cells noted. Culture results were not back at this time. Patient has a history of CLL, she does not take any medications for this. Lab in the emergency room today showed a white blood cell count at 53.6, hemoglobin was 9, platelet count was 574,000. Chemistry profile was abnormal for creatinine of 1.12, BUN 24, and a potassium of 3.4. I talked by phone with Dr. Patricio who is the patient's oncologist in town for her CLL, he states that her total white blood cell count on April 18 of this year was 49,000. Blood cultures were obtained in the emergency room, patient was given IV Zosyn will be admitted to [place] [id number] for spontaneous bacterial peritonitis. Patient does not look toxic at this point. [facility] Medical History (Updated 04/28/22 @ 13:02 by Scarlett Ospina) Anxiety Aortic regurgitation Aortic stenosis CKD (chronic kidney disease) Contact with and (suspected) exposure to other viral communicable diseases Diarrhea History of right and left heart catheterization (LHC) (~09/29/21) Incontinence Limb weakness Mixed hyperlipidemia Nonrheumatic aortic (valve) stenosis with insufficiency Shoulder pain Urinary tract infection with hematuria Home Medications aspirin 81 mg tablet,delayed release 81 mg PO DAILY #1 TAB 09/14/21 [Rx Last Taken 04/26/22] ferrous sulfate 325 mg (65 mg iron) tablet 325 mg PO QODAY 01/29/22 [History Last Taken 04/25/22] amoxicillin 500 mg capsule 500 mg PO TID sinus pain #21 caps 04/21/22 [Rx Last Taken 04/27/22] atorvastatin 20 mg tablet 20 mg PO QHS CHOLESTEROL 04/28/22 [History Last Taken Unknown] lisinopril 40 mg tablet 40 mg PO DAILY BP 04/28/22 [History Last Taken 04/23/22] Allergy/AdvReac Type Severity Reaction Status Date / Time cephalexin [From Keflex] Allergy Severe Other Verified 04/28/22 13:13 Family History Other Colon cancer Diabetes Myocardial infarction Surgical History History of bilateral cataract extraction S/P TAVR (transcatheter aortic valve replacement) (~12/14/21) Social History household members: other details: number of children: 4 current occupational 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 Smoking Status: Former smoker alcohol intake: never substance use type: does not use caffeine: Yes Type: tea Number of servings: 1 ROS Constitutional Constitutional: Denies anorexia, change in weight, chills, fatigue, fever(s), malaise, night sweats or weakness Eyes Eyes: Denies blurry vision, change in vision, discharge from eye(s) or eye pain Cardiovascular Cardiovascular: Denies chest pain, claudication, dyspnea on exertion, edema, lightheadedness or palpitations Respiratory/Chest Respiratory/Chest: Denies cough, dyspnea, hemoptysis, productive cough, shortness of breath at rest or shortness of breath with exertion Gastrointestinal Gastrointestinal: Denies abdominal pain, constipation, diarrhea, dyspepsia, hematemesis, hematochezia, melena, nausea or vomiting Genitourinary Genitourinary: Denies difficulty urinating, dysuria, hematuria, nocturia, urinary frequency, urinary hesitancy, urinary incontinence or urinary urgency Musculoskeletal Musculoskeletal: Denies back pain, joint pain, joint stiffness, joint swelling, myalgias or neck pain Neurologic Neurologic: Denies abnormal gait, abnormal speech, confusion, disequilibrium, dizziness, focal weakness, headache(s), loss of vision, numbness, other visual disturbances, paresthesias, syncope or tingling Psychiatric Psychiatric: Denies anxiety, cognitive impairment, depression, irritability, mood swings or suicidal ideation Endocrine Endocrinology: Denies change in body appearance, cold intolerance, excessive sweating, heat intolerance, polydipsia or polyuria Hematologic/Lymphatic Hematologic/Lymphatic: Denies none, anemia, easy bleeding, easy bruising or lymphadenopathy Allergic/Immunologic Allergic/Immunologic: Denies rhinitis, urticaria, eczemia or asthma Vital Signs Vital Signs Vital Signs: 04/28/22 10:25 04/28/22 12:35 04/28/22 13:31 Temperature 97.2 F L 97.8 F 97.9 F Temperature Source Temporal Oral Oral Pulse Rate 74 74 67 Respiratory Rate 16 16 18 Blood Pressure 104/60 104/78 111/48 L Blood Pressure Mean 74 86 69 Blood Pressure Source Monitor Blood Pressure Position Semi-Fowlers Blood Pressure Location Right Arm Pulse Ox 97 99 100 Oxygen Delivery Method Room Air Room Air Room Air Weight Weight: 52.1 kg Body Mass Index (BMI) 24.0 Physical Exam Const alert, oriented x3, no apparent distress, average body habitus and healthy appearing Constitutional Narrative: Patient appears her stated age General Appearance: cooperative, well kempt and well developed Orientation / Consciousness: awake, oriented to person, oriented to place and oriented to time HEENT normocephalic, head/scalp atraumatic, hearing grossly normal bilaterally and moist oral mucous membranes Eyes PERRL, EOMs intact bilaterally and conjunctivae normal Neck supple, no JVD, thyroid normal and no carotid bruits General: trachea midline Resp normal respiratory effort, no retractions, no use of accessory muscles and clear to auscultation bilaterally Auscultation: Negative for rales, rhonchi or wheezes Cardio regular rate, regular rhythm, S1 normal heart sound, S2 normal heart sound, no murmurs, no rub and no gallops GI normal to inspection, nondistended, normoactive bowel sounds, soft to palpation, non-tender and non-distended GI Narrative: No rebound abdominal tenderness was noted Extremity no clubbing, cyanosis or edema Skin no rashes or lesions noted General Skin Exam: no breakdown Neuro oriented x3, CN's II-XII intact bilaterally, moves all extremities, no focal motor deficits and no sensory deficits noted Sensorium / Orientation: awake, alert, oriented to person, oriented to place and oriented to time Speech: speech normal Psych affect normal Results Lab / Micro Data Result Diagrams: 04/28/22 11:05 04/28/22 11:05 Labs: Laboratory Results - last 24 hr 04/28/22 11:05: WBC 53.6 H*, RBC 3.21 L, Hgb 9.0 L, Hct 28.8 L, MCV 89.7, MCH 28.0, MCHC 31.3 L, RDW Std Deviation 45.3 H, RDW Coeff of Zack 13.9, Plt Count 574 H, MPV 9.4, Immature Gran % (Auto) 0.400, Neut % (Auto) 20.5 L, Lymph % (Auto) 77.1 H, [place] % (Auto) 1.5, Eos % (Auto) 0.4, Baso % (Auto) 0.1, Absolute Neuts (auto) 11.0 H, Absolute Lymphs (auto) 41.32 H, Nucleated RBC % 0, Differential Comment SCANNED, Diff Path Review July foll 04/28/22 11:05: PT 15.6 H, INR 1.3, APTT 48.6 H 04/28/22 11:05: Sodium 136, Potassium 3.4 L, Chloride 108 H, Carbon Dioxide 18.0 L, Anion Gap 10, BUN 24 H, Creatinine 1.12 H, Estim Creat Clear Calc 32.50, Est GFR (MDRD) Af Amer 60, Est GFR (MDRD) Non-Af 49 L, BUN/Creatinine Ratio 21.4 H, Glucose 118 H, Calcium 8.1 L, Total Bilirubin 0.30, Direct Bilirubin 0.11, AST 18, ALT 9 L, Alkaline Phosphatase 71, Total Protein 5.5 L, Albumin 1.7 L, Globulin 3.8 Assessment & Plan Assessment/Plan (1) Peritonitis: PLAN: Plan 1. Spontaneous bacterial peritonitis-patient was admitted to [facility] 3, IV Zosyn will be continued, CBC will be repeated tomorrow morning. #2 chronic lymphocytic leukemia-patient is not under treatment for this, complicates care, medical course, recovery, and prognosis #3 pelvic mass-etiology unclear at this point, patient is undergoing a further work-up as an outpatient #4 essential hypertension-patient will remain on lisinopril #5 hyperlipidemia-patient is on atorvastatin Total clinical time spent by myself addressing the patient's medical issues, reviewing the data, and discussing her care with her caregivers: 75 minutes Charges/Coding Visit Charges Inpatient E&M: 00138 Init Hosp L3
[2022-04-28] MEDS: Ferrous Sulfate 325 MG Tablet PO (17:34)
[2022-04-28] MEDS: Acetaminophen 325 MG Tablet 650 MG PO (19:39)
[2022-04-28 19:49] VITALS: BP 107/43; PULSE 79; RESP 16; TEMP 37.3; O2SAT 99
[2022-04-28] MEDS: 0.9% Saline Lock 10 ML Syringe IV (21:40)
[2022-04-29 04:00] VITALS: BP 101/47; PULSE 72; RESP 16; TEMP 36.8; O2SAT 94
[2022-04-29] MEDS: Acetaminophen 325 MG Tablet 650 MG PO ×2 (04:05→19:56)
[2022-04-29 05:04] LABS: Absolute Lymphocyte Count 39.33 X10^3/uL (0.83-4.51); Absolute Neutrophil Count 9.2 X10^3/uL (2.0-7.7); Basophil# 0.07 X10^3/uL; Basophil% 0.1 % (0-1); Eosinophils% 0.8 % (0-5); Hematocrit 28.9 % (37-47); Hemoglobin 8.8 g/dL (12.0-15.0); Lymphocyte # 39.33 X10^3/ul (0.83-4.51); Lymphocyte % 78.3 % (19-41); Mean Corp Hgb Conc 30.4 g/dL (32-36); Mean Corpuscular Hgb 27.5 pg (27.0-32.0); Mean Corpuscular Volume 90.3 fL (81-99); Mean Platelet Vol. 9.1 fl (6.2-12.0); Monocyte# 0.95 X10^3/uL; Monocyte% 1.9 % (0-10); NRBC Flagged by Analyzer 0 % (0-5); Neutrophil # 9.22 X10^3/uL (2.7-7.7); Neutrophil % 18.3 % (47-70); POSITIVE COUNT YES; POSITIVE DIFFERENTIAL YES; POSITIVE MORPHOLOGY YES; Platelet Count 529 K/mm3 (150-450); RBC Distribution Width CV 13.8 % (11.6-14.6); RBC Distribution Width SD 45.4 fl (35.1-43.9)
[2022-04-29 05:08] LABS: Differential Indicated SCAN CRITERIA MET
[2022-04-29 05:09] LABS: White Blood Count 50.3 K/mm3 (4.4-11.0)
[2022-04-29 06:23] LABS: Differential Comment SCANNED; Smudge Cells 2+
[2022-04-29] MEDS: Ondansetron 4 MG/2 ML Vial IV (09:24)
[2022-04-29] MEDS: 0.9% Saline Lock 10 ML Syringe IV ×2 (09:24→20:59)
[2022-04-29] MEDS: Enoxaparin 40 MG/0.4 ML Syringe SC (09:25)
[2022-04-29] MEDS: Aspirin E.C. 81 MG Tablet PO (09:25)
--- NOTE | 2022-04-29 09:28 | NURSING ---
Dr. Das in to see patient states patient is nauseated. Patient has breakfast at bedside was eating it with no nausea. In to give patient Zofran iv for nausea. Patient on the phone with daughter wont hang up the phone to talk to nurse. Zofran given. Patient continues to talk on phone.
[2022-04-29 10:00] VITALS: BP 97/43; PULSE 71; RESP 18; TEMP 36.8; O2SAT 96
[2022-04-29 14:00] VITALS: BP 102/58; PULSE 78; RESP 18; TEMP 36.9; O2SAT 95
--- NOTE | 2022-04-29 14:40 | PN.HOSP_ITS ---
Subjective Subjective Patient was seen and examined today, she does not complain of any fevers or chills, she is complaining of some slight nausea today. I went over with her the possibility of having infectious diseases see the patient tomorrow to see if she needs continued antibiotics, I talked with Dr. Rdz by phone and I think it is best that he evaluate her for continued antibiotic usage. I will attempt to call tomorrow to see if I can get culture results from the patient's peritoneal fluid. Objective Data Objective Data Vital Signs: Vital Signs Temp Pulse Resp BP Pulse Ox O2 Del Method 98.3 F 71 18 97/43 L 96 Room Air 04/29/22 10:00 04/29/22 10:00 04/29/22 10:00 04/29/22 10:00 04/29/22 10:00 04/29/22 10:00 Oxygen Delivery Method Room Air Weight: 52.1 kg Body Mass Index (BMI) 24.0 Intake & Output: Intake and Output for Last 24 Hours 04/27/22 04/28/22 04/29/22 23:59 23:59 23:59 Intake Total 630 / 630 450 / 450 Balance 630 / 630 450 / 450 Lab / Micro Data Result Diagrams: 04/29/22 04:30 04/28/22 11:05 Labs: Laboratory Results - last 24 hr 04/29/22 04:30: WBC 50.3 H*, RBC 3.20 L, Hgb 8.8 L, Hct 28.9 L, MCV 90.3, MCH 27.5, MCHC 30.4 L, RDW Std Deviation 45.4 H, RDW Coeff of Zack 13.8, Plt Count 529 H, MPV 9.1, Immature Gran % (Auto) 0.600, Neut % (Auto) 18.3 L, Lymph % (Auto) 78.3 H, [place] % (Auto) 1.9, Eos % (Auto) 0.8, Baso % (Auto) 0.1, Absolute Neuts (auto) 9.2 H, Absolute Lymphs (auto) 39.33 H, Nucleated RBC % 0, Differential Comment SCANNED, Diff Path Review May foll, Smudge Cells 2+ Physical Exam Narrative alert, oriented x3, no apparent distress, average body habitus and healthy appearing Constitutional Narrative: Patient appears her stated age General Appearance: cooperative, well kempt and well developed Orientation / Consciousness: awake, oriented to person, oriented to place and oriented to time HEENT normocephalic, head/scalp atraumatic, hearing grossly normal bilaterally and moist oral mucous membranes Eyes PERRL, EOMs intact bilaterally and conjunctivae normal Neck supple, no JVD, thyroid normal and no carotid bruits General: trachea midline Resp normal respiratory effort, no retractions, no use of accessory muscles and clear to auscultation bilaterally Auscultation: Negative for rales, rhonchi or wheezes Cardio regular rate, regular rhythm, S1 normal heart sound, S2 normal heart sound, no murmurs, no rub and no gallops GI normal to inspection, nondistended, normoactive bowel sounds, soft to palpation, non-tender and non-distended GI Narrative: No rebound abdominal tenderness was noted Extremity no clubbing, cyanosis or edema Skin no rashes or lesions noted General Skin Exam: no breakdown Neuro oriented x3, CN's II-XII intact bilaterally, moves all extremities, no focal motor deficits and no sensory deficits noted Sensorium / Orientation: awake, alert, oriented to person, oriented to place and oriented to time Speech: speech normal Psych affect normal Assessment & Plan Assessment/Plan (1) Peritonitis: PLAN: Plan 1. Spontaneous bacterial peritonitis-patient will remain on IV Zosyn for now, I will attempt to obtain culture results on her peritoneal fluid tomorrow from the [facility]. I will have infectious diseases see the patient tomorrow. #2 chronic lymphocytic leukemia-patient is not under treatment for this, complicates care, medical course, recovery, and prognosis #3 pelvic mass-etiology unclear at this point, patient is undergoing a further work-up as an outpatient #4 essential hypertension-nursing found out today the patient does not take daily lisinopril, her blood pressure has been low at times during her hospitalization here, I have elected to stop her lisinopril #5 hyperlipidemia-patient is on atorvastatin Total clinical time spent by myself addressing the patient's medical issues, reviewing the data, and discussing her care with her caregivers: 35 minutes Charges/Coding Visit Charges Inpatient E&M: 11132 Subs Hosp L2
[2022-04-29 19:50] VITALS: BP 115/55; PULSE 75; RESP 16; TEMP 37.4; O2SAT 99
[2022-04-30 02:13] VITALS: BP 113/55; PULSE 69; RESP 20; TEMP 36.7; O2SAT 100
[2022-04-30 06:15] VITALS: BP 97/43; PULSE 66; RESP 18; TEMP 37; O2SAT 97
[2022-04-30] MEDS: Ondansetron 4 MG/2 ML Vial IV (06:25)
[2022-04-30] MEDS: 0.9% Saline Lock 10 ML Syringe IV (06:27)
[2022-04-30] MEDS: Aspirin E.C. 81 MG Tablet PO (07:27)
[2022-04-30 08:22] LABS: Absolute Lymphocyte Count 57.39 X10^3/uL (0.83-4.51); Absolute Neutrophil Count 10.3 X10^3/uL (2.0-7.7); Basophil# 0.11 X10^3/uL; Basophil% 0.2 % (0-1); Eosinophil# 0.59 X10^3/uL; Eosinophils% 0.8 % (0-5); Hematocrit 36.7 % (37-47); Hemoglobin 10.9 g/dL (12.0-15.0); Lymphocyte # 57.39 X10^3/ul (0.83-4.51); Lymphocyte % 82.5 % (19-41); Mean Corp Hgb Conc 29.7 g/dL (32-36); Mean Corpuscular Hgb 27.2 pg (27.0-32.0); Mean Corpuscular Volume 91.5 fL (81-99); Mean Platelet Vol. 9.1 fl (6.2-12.0); Monocyte% 1.1 % (0-10); NRBC Flagged by Analyzer 0 % (0-5); Neutrophil # 10.29 X10^3/uL (2.7-7.7); Neutrophil % 14.8 % (47-70); POSITIVE COUNT YES; POSITIVE DIFFERENTIAL YES; POSITIVE MORPHOLOGY YES; Platelet Count 726 K/mm3 (150-450); RBC Distribution Width CV 14.1 % (11.6-14.6); RBC Distribution Width SD 46.5 fl (35.1-43.9); Red Blood Count 4.01 M/mm3 (4.2-5.4)
[2022-04-30 08:27] VITALS: BP 101/58; PULSE 70; RESP 18; TEMP 37.2; O2SAT 97
[2022-04-30 08:27] LABS: Differential Indicated SCAN CRITERIA MET; White Blood Count 69.6 K/mm3 (4.4-11.0)
[2022-04-30 08:28] VITALS: RESP 18
[2022-04-30] MEDS: Ferrous Sulfate 325 MG Tablet PO (10:58)
[2022-04-30] MEDS: Enoxaparin 40 MG/0.4 ML Syringe SC (10:58)
--- NOTE | 2022-04-30 11:30 | CASEMGMT ---
RN?CM?ELECTRONICS TEACHER?CM?to room to meet with patient for initial transition planning/care coordination?assessment.?RN?CM?introduced self and role at [facility].? Pt voices understanding and consents to?assessment?at this time.? Pt resting in bed in no distress at this time.? Pt is A/O at this time and answers all questions appropriately.?? Care providers, pharmacy, and demographics verified/updated at this time. PCP: Dr Bernardo Specialists: Dr Patricio-oncology, Dr Mar-DIRECTOR EMPLOYEE SAFETY AND HEALTH/ON @ [facility], Dr Puri-cardiology Preferred Pharmacy: [facility] Insurance: [employer] Prescription Benefit:?Yes Living Will/HPOA:?Pt does not currently have LW/HCPOA and declines info at this time. LNOK: daughter, Giovanna. 3 sons. Living Arrangements: Lives alone in one-story home. No steps to enter thru one of the entrances, but does have a flight of stairs to enter, depending on where she becerra. She states she is independent w/ADL's and IADL's and manages her own medications. She works part-time @ [email or web address] in the [employer]. Transportation:?Pt states drives self and states no transportation concerns at this time.? DME: ? Denies using any DME and denies needs.? HHC/SNF: Denies hx of either and denies needs for HHC. No needs identified. Pt wishes to return home and states has no concerns with going home at time of discharge.? CM?to follow for any discharge planning/needs.? Pt voices no further concerns/needs at this time.? Advised pt to ask for?CM?if any further questions/concerns/needs arise.? Voices understanding. PLAN:??Home Lisa CAVANAUGHN?RN?CM
[2022-04-30 13:27] VITALS: BP 111/48; PULSE 72; RESP 18; TEMP 37.1; O2SAT 97
[2022-04-30 13:50] LABS: Pathologist Review Reviewed
[2022-04-30 13:52] LABS: Pathologist Review Reviewed
[2022-04-30 14:07] LABS: Pathologist Review Reviewed
--- NOTE | 2022-04-30 14:37 | PCM.CONS.GEN ---
Assessment & Plan Assessment/Plan (1) CLL (chronic lymphocytic leukemia): (2) Ascites: PLAN: Mildly elevated peritoneal wbc count, suspect this is due to her high wbc from her CLL. Reviewed [facility] records. Fluid cx remains neg. Ok for d/c home off of abx. Will follow as needed, thank you, d/w Dr. Das HPI Consult Data Date of Consult: 04/30/22 HPI Narrative Reason for Consultation: abnormal peritoneal fluid HPI Narrative: ASHLEY ALCANTAR, is a 81 F with h/o CLL, presented due to abnormal paracentesis results. Reports about a month of progressive abd pain, distension. CT showed ascities, had tap done 04/27/22. Told to go to ED for iv abx. No fever. Abd fluid slowly returning. Full ROS performed and neg except as noted above. [facility] Medical History Anxiety Aortic regurgitation Aortic stenosis CKD (chronic kidney disease) Contact with and (suspected) exposure to other viral communicable diseases Diarrhea History of right and left heart catheterization (LHC) (~09/29/21) Incontinence Limb weakness Mixed hyperlipidemia Nonrheumatic aortic (valve) stenosis with insufficiency Shoulder pain Urinary tract infection with hematuria Home Medications aspirin 81 mg tablet,delayed release 81 mg PO DAILY #1 TAB 09/14/21 [Rx Last Taken 04/26/22] ferrous sulfate 325 mg (65 mg iron) tablet 325 mg PO QODAY 01/29/22 [History Last Taken 04/25/22] amoxicillin 500 mg capsule 500 mg PO TID sinus pain #21 caps 04/21/22 [Rx Last Taken 04/27/22] atorvastatin 20 mg tablet 20 mg PO QHS CHOLESTEROL 04/28/22 [History Last Taken Unknown] lisinopril 40 mg tablet 40 mg PO DAILY BP 04/28/22 [History Last Taken 04/23/22] Allergy/AdvReac Type Severity Reaction Status Date / Time cephalexin [From Keflex] Allergy Severe Other Verified 04/28/22 13:13 Family History Other Colon cancer Diabetes Myocardial infarction Surgical History History of bilateral cataract extraction S/P TAVR (transcatheter aortic valve replacement) (~12/14/21) Social History household members: other details: number of children: 4 current occupational 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 Smoking Status: Former smoker alcohol intake: never substance use type: does not use caffeine: Yes Type: tea Number of servings: 1 Physical Exam Const alert, oriented x3 and no apparent distress General Appearance: cooperative and well developed HEENT normocephalic and head/scalp atraumatic Eyes PERRL and EOMs intact bilaterally Neck supple and No nodes Resp normal air movement and clear to auscultation bilaterally Cardio regular rate and regular rhythm GI soft to palpation, non-tender and non-distended Extremity General Extremity: Negative for edema Skin no rashes or lesions noted Neuro CN's II-XII intact bilaterally Medical Records Data Attestation: I reviewed the patient's medical records Lab / Micro Data Result Diagrams: 04/30/22 08:12 04/28/22 11:05 Labs: Laboratory Results - last 24 hr 04/28/22 11:05: Diff Path Review Reviewed 04/29/22 04:30: Diff Path Review Reviewed 04/30/22 08:12: WBC 69.6 H*, RBC 4.01 L, Hgb 10.9 L, Hct 36.7 L, MCV 91.5, MCH 27.2, MCHC 29.7 L, RDW Std Deviation 46.5 H, RDW Coeff of Zack 14.1, Plt Count 726 H, MPV 9.1, Immature Gran % (Auto) 0.600, Neut % (Auto) 14.8 L, Lymph % (Auto) 82.5 H, [place] % (Auto) 1.1, Eos % (Auto) 0.8, Baso % (Auto) 0.2, Absolute Neuts (auto) 10.3 H, Absolute Lymphs (auto) 57.39 H, Nucleated RBC % 0, Differential Comment COMMENT, Diff Path Review Reviewed
--- NOTE | 2022-04-30 14:50 | DCINST_ITS ---
Discharge Instructions Diet Discharge Diet: No restrictions Activity Discharge Activity: Return to Normal Activity Weight Bearing Status: Full weight bearing Follow Up Care Test Results: Test results from this visit will be discussed in further detail at your follow- up appointment, if applicable. Discharge Plan Admission Admit Date/Time: 04/28/22 11:58 Primary Reason for Your Visit: white blood cell in ascitics Attending Provider: Haim Das Primary Care Provider: Megan Bernardo Consulting Providers: Vince Rdz Instructions Additional Instructions / Restrictions: Follow up with Dr. Mra as directed Discharge Orders/Prescriptions Prescriptions: Continued aspirin 81 mg tablet,delayed release (DR/EC) 81 mg PO DAILY Qty: 1 0RF ferrous sulfate 325 mg (65 mg iron) tablet 325 mg PO QODAY lisinopril 40 mg tablet 40 mg PO DAILY Label Comments: TAKE 1 TABLET BY MOUTH ONCE DAILY atorvastatin 20 mg tablet 20 mg PO QHS Discontinued amoxicillin 500 mg capsule 500 mg PO TID Qty: 21 0RF Referrals / Follow Up: Megan Bernardo MD [Primary Care Provider] - Disposition Disposition (needs filled in before D/C Order can be placed): Home, Self Care
--- NOTE | 2022-04-30 15:26 | PCM.DC.SUM ---
Providers Date of Admission: 04/28/22 Date of Discharge: 04/30/22 Primary Care Physician: Dr. Megan Bernardo MD Consultations 04/29/22 14:21 Consult: Infectious Disease Routine Consulting Provider: Vince Rdz Reason for Consult: de-escalation of antibiotics, ? peritonitis EMERGENT Consult: No MD Notified: Yes Date Notified: 04/29/22 Time Notified: 14:21 Method of Notification: Verbal Reason For Visit: PERITONITIS Diagnosis Discharge Diagnosis (1) CLL (chronic lymphocytic leukemia): Status: Chronic Code(s): C91.10 - Chronic lymphocytic leukemia of B-cell type not having achieved remission (2) Ascites: Status: Acute Code(s): R18.8 - Other ascites (3) Peritonitis: Status: Acute Code(s): K65.9 - Peritonitis, unspecified Plan 1. Presence of white blood cells in ascitic fluid-no evidence of spontaneous bacterial peritonitis #2 chronic lymphocytic leukemia-patient is not under treatment for this, complicates care, medical course, recovery, and prognosis #3 pelvic mass-etiology unclear at this point, patient is undergoing a further work-up as an outpatient #4 essential hypertension-nursing found out today the patient does not take daily lisinopril, her blood pressure has been low at times during her hospitalization here, I have elected to stop her lisinopril #5 hyperlipidemia-patient is on atorvastatin Total clinical time spent by myself addressing the patient's medical issues, reviewing the data, and discussing her care with her caregivers: 35 minutes Medications at Discharge Home Medications aspirin 81 mg tablet,delayed release 81 mg PO DAILY #1 TAB 09/14/21 ferrous sulfate 325 mg (65 mg iron) tablet 325 mg PO QODAY 01/29/22 atorvastatin 20 mg tablet 20 mg PO QHS CHOLESTEROL 04/28/22 lisinopril 40 mg tablet 40 mg PO DAILY BP 04/28/22 Hospital Course Operations None Procedures None Summary of Care Provided Minutes Spent on Discharge: 31 Hospital Course: This 81-year-old white female was seen in the emergency room at [facility] after being directed to go to the emergency room due to an abnormal paracentesis which had been performed today earlier in [place], patient had been told that she had an elevated white blood cell count and her peritoneal fluid and she should be admitted to the hospital for IV antibiotic therapy. Lab obtained in the emergency room showed an elevated white blood cell count-however the patient had a chronically elevated white blood cell count due to chronic lymphocytic leukemia. Patient was afebrile, she did not appear to be unwell, and she had no fever or abdominal pain. Patient was admitted to [place] [address] for suspected spontaneous bacterial peritonitis, she was placed on IV Zosyn, she remained asymptomatic during her hospital stay and did not run a temperature. I contacted infectious diseases and have them see the patient, they saw the patient on 04/30/22 and did not feel that the patient needed to be continued on antibiotics and that she could go home on no antibiotic treatment. In addition I called the patient's gynecological oncologist-Dr. Juan Mar-in [place] and talked with him at length about her care, he did not know that she had been admitted to the hospital in [place] and was okay with the patient going home on no antibiotics with follow-up to him. It did not appear that the patient had spontaneous bacterial peritonitis, she only had the presence of white blood cells in the patient's ascitic fluid. On 04/30/2022, patient was seen and examined: On examination she appeared in good health and spirits, she does not appear to be in any distress. Vital signs as documented. Skin warm and dry and without overt rashes. Neck without JVD, thyroid appears normal, trachea is midline, neck is supple. Lungs clear, normal air movement was noted. Heart exam notable for regular rhythm, normal sounds and absence of murmurs, rubs or gallops. Abdomen unremarkable and without evidence of organomegaly, masses, or abdominal aortic enlargement, bowel sounds are present in all 4 quadrants, no abdominal tenderness was noted. Extremities nonedematous, no cyanosis was noted, no clubbing was noted. Neuro: Cranial nerves II through XII are grossly intact, no focal motor deficits were noted, sensation to light touch and pinprick is intact, motor exam 5/5 throughout. Psych: Patient is alert and oriented x3, she does not appear anxious or depressed, she does not appear agitated. On 04/30/2022, patient was seen and examined and felt to be in stable condition for discharge home Weight / BMI Weight Weight: 52.1 kg Body Mass Index (BMI) 24.0 ABG / Lab / Microbiology Data Result Diagrams: 04/30/22 08:12 04/28/22 11:05 Laboratory: Laboratory Results - last 24 hr 04/28/22 11:05: Diff Path Review Reviewed 04/29/22 04:30: Diff Path Review Reviewed 04/30/22 08:12: WBC 69.6 H*, RBC 4.01 L, Hgb 10.9 L, Hct 36.7 L, MCV 91.5, MCH 27.2, MCHC 29.7 L, RDW Std Deviation 46.5 H, RDW Coeff of Zack 14.1, Plt Count 726 H, MPV 9.1, Immature Gran % (Auto) 0.600, Neut % (Auto) 14.8 L, Lymph % (Auto) 82.5 H, [place] % (Auto) 1.1, Eos % (Auto) 0.8, Baso % (Auto) 0.2, Absolute Neuts (auto) 10.3 H, Absolute Lymphs (auto) 57.39 H, Nucleated RBC % 0, Differential Comment COMMENT, Diff Path Review Reviewed D/C Instructions Discharge Diet: No restrictions Weight Bearing Status: Full weight bearing Meaningful Use Info Meaningful Use Diagnoses (Choose all that apply): None applicable Discharge Plan Admission Admit Date/Time: 04/28/22 11:58 Primary Reason for Your Visit: white blood cell in ascitics Attending Provider: Haim Das Primary Care Provider: Megan Bernardo Consulting Providers: Vince Rdz Instructions Additional Instructions / Restrictions: Follow up with Dr. Mar as directed Discharge Orders/Prescriptions Prescriptions: Continued aspirin 81 mg tablet,delayed release (DR/EC) 81 mg PO DAILY Qty: 1 0RF ferrous sulfate 325 mg (65 mg iron) tablet 325 mg PO QODAY lisinopril 40 mg tablet 40 mg PO DAILY Label Comments: TAKE 1 TABLET BY MOUTH ONCE DAILY atorvastatin 20 mg tablet 20 mg PO QHS Discontinued amoxicillin 500 mg capsule 500 mg PO TID Qty: 21 0RF Referrals / Follow Up: Megan Bernardo MD [Primary Care Provider] - Disposition Disposition (needs filled in before D/C Order can be placed): Home, Self Care Charges/Coding Visit Charges Inpatient E&M: 76599 Disch Hosp >30min
== END 2022-04-30 16:10 | disposition home or self-care (01) | DRG 948 ==
LOC: ED 11:59 → MS3 12:15
PROVIDERS: Admitting Provider Internal Medicine; Emergency Provider Emergency Medicine; PCP Internal Medicine; Visit Provider Internal Medicine
DX: R18.8 Other ascites (principal); C91.10 Chronic lymphocytic leukemia of B-cell type not having achieved remission; E78.2 Mixed hyperlipidemia; I12.9 Hypertensive chronic kidney disease with stage 1 through stage 4 chronic kidney disease, or unspecified chronic kidney disease; N18.9 Chronic kidney disease, unspecified; Z79.82 Long term (current) use of aspirin; Z79.899 Other long term (current) drug therapy; Z87.891 Personal history of nicotine dependence
CPT/HCPCS: 36415; 71260; 80048; 80076; 85025; 85610; 85730; 87040; 99284; J7050; Q9967; A4216; J2405

== ENCOUNTER 2022-05-20 13:30 | Emergency (ER) | payer MEDICARE, OTHER, SELFPAY ==
[2022-05-20] VITALS (9 sets, daily range): BP systolic 118–127; BP diastolic 62–71; PULSE 94–110; RESP 16–30; TEMP 35.6; O2SAT 87–99; BMI 25.0
--- NOTE | 2022-05-20 14:03 | EDS_ITS ---
HPI History of Present Illness Chief Complaint: Shortness of Breath Informant: patient and family Onset/Context/Timing Onset: Yesterday Context: gradual Quality: Positive for Dyspnea on exertion and Orthopnea Worsened by: Lying flat Relieved by: Nothing Associated Symptoms cough, sore throat and green sputum; Negative for rhinorrhea, post nasal drip, ear pain, fever or chills Chest Pain: Positive for - (Patient has chest pain with deep breathing only) Narrative Narrative: Patient presents with shortness of breath that began yesterday evening. Patient states it is gradually gotten worse. Patient states her breathing is worse whenever she lays flat and with any exertion. Patient states she has some pain in her chest with deep breathing. Patient coughed with some green sputum. Patient also admits to mild sore throat. Patient states her primary care physic ahmet prescribed her Zithromax yesterday. Patient took 2 pills yesterday and 1 today. Patient states she does not feel much better. Patient did have a recent laparoscopy procedure for ascites. PE Risk Factors: Positive for Cancer and Recent surgery PFSH [facility] Medical History Acute maxillary sinusitis, unspecified Acute sinusitis Acute sinusitis Anxiety Aortic regurgitation Aortic stenosis CKD (chronic kidney disease) Contact with and (suspected) exposure to other viral communicable diseases Contusion of left hand including fingers Diarrhea Elevated blood pressure reading in office without diagnosis of hypertension Elevated TSH Glaucoma Hematuria History of right and left heart catheterization (LHC) (~09/29/21) Incontinence Limb weakness Mixed hyperlipidemia Nonrheumatic aortic (valve) stenosis with insufficiency Post herpetic neuralgia Preop exam for internal medicine Shoulder pain Strain of right trapezius muscle Tinnitus Urinary tract infection with hematuria UTI (urinary tract infection) Home Medications aspirin 81 mg tablet,delayed release 81 mg PO DAILY #1 TAB 09/14/21 [Rx Last Taken 04/26/22] ferrous sulfate 325 mg (65 mg iron) tablet 325 mg PO QODAY 01/29/22 [History Last Taken 04/25/22] atorvastatin 20 mg tablet 20 mg PO QHS CHOLESTEROL 04/28/22 [History Last Taken Unknown] lisinopril 40 mg tablet 40 mg PO DAILY BP 04/28/22 [History Last Taken 04/23/22] furosemide 20 mg tablet 20 mg PO BID #180 tabs 05/14/22 [Rx Last Taken Unknown] potassium chloride 10 mEq tablet,extended release(part/cryst) 10 meq PO DAILY #90 tabs 05/14/22 [Rx Last Taken Unknown] azithromycin 250 mg tablet See Rx Instructions PO .COMPLEX #6 tabs 05/19/22 [Rx Last Taken Unknown] guaifenesin 100 mg/5 mL oral liquid 200 mg (10 mL) PO Q4H PRN cough #200 mL 05/19/22 [Rx Last Taken Unknown] Allergy/AdvReac Type Severity Reaction Status Date / Time cephalexin [From Keflex] Allergy Severe Other Verified 05/20/22 13:53 Family History Other Colon cancer Diabetes Myocardial infarction Surgical History History of bilateral cataract extraction History of transcatheter aortic valve replacement (TAVR) (~12/14/21) Social History household members: other details: number of children: 4 current occupational status: employed current occupation: [employer] Smoking Status: Former smoker alcohol intake: never substance use type: does not use caffeine: Yes Type: tea Number of servings: 1 ROS ROS ED Constitutional Constitutional ED: Denies chills or fever(s) Eyes Eyes: Denies blurry vision or change in vision ENT ENT ED: Reports sore throat; Denies rhinorrhea Cardiovascular Cardiovascular: Denies chest pain or palpitations Respiratory/Chest Respiratory/Chest: Reports cough and dyspnea Gastrointestinal Gastrointestinal: Reports abdominal pain; Denies nausea or vomiting Genitourinary Genitourinary ED: Denies dysuria or hematuria Musculoskeletal Musculoskeletal: Reports back pain; Denies neck pain Integumentary Denies abscess or rash Neurologic Neurologic: Denies headache(s) or weakness Allergic/Immunologic Allergic/Immunologic ED: Denies mouth swelling or urticaria EXAM Physical Exam Const Vital Signs: 05/20/22 13:31 05/20/22 13:47 05/20/22 13:54 Temperature 96.0 F L Temperature Source Temporal Pulse Rate 102 H 96 94 Respiratory Rate 16 20 H 30 H Respiratory Effort Respiratory Depth Respiratory Pattern Blood Pressure 118/68 125/62 H 125/62 H Blood Pressure Mean 84 83 83 Pulse Ox 96 92 92 Oxygen Delivery Method Room Air Room Air Room Air Oxygen Flow Rate (L/min) 05/20/22 14:21 05/20/22 15:00 05/20/22 15:27 Temperature Temperature Source Pulse Rate Respiratory Rate Respiratory Effort Normal Non-Labored Respiratory Depth Normal Respiratory Pattern Normal Blood Pressure Blood Pressure Mean Pulse Ox 87 94 Oxygen Delivery Method Room Air Room Air Nasal Cannula Oxygen Flow Rate (L/min) 2 05/20/22 16:13 Temperature Temperature Source Pulse Rate 98 Respiratory Rate 16 Respiratory Effort Respiratory Depth Respiratory Pattern Blood Pressure 127/71 H Blood Pressure Mean 89 Pulse Ox 95 Oxygen Delivery Method Nasal Cannula Oxygen Flow Rate (L/min) 2 Positive well nourished and well developed General Appearance ED: well developed HEENT Reports moist mucous membranes Neck supple and no JVD Resp normal respiratory effort Auscultation: diminished lung sounds diffuse Cardio regular rate and regular rhythm GI normal to inspection, nondistended, normoactive bowel sounds and non-tender Palpation: soft; Negative for guarding Extremity normal to inspection General Extremety ED: Negative for edema or tenderness General Extremity: Negative for edema Neuro oriented x3, CN's II-XII intact bilaterally and no sensory deficits noted Sensorium / Orientation: alert Motor Exam: strength 5/5 throughout Psych mental status grossly normal Skin no rashes or lesions noted MDM MDM MDM Narrative Medical decision making narrative: Differential diagnosis includes pulmonary embolism, cardiac dysrhythmia, cardiac ischemia, pneumonia, ascites, congestive heart failure, and pleural effusions. EKG will be obtained to assess for cardiac dysrhythmia and cardiac ischemia. CBC will be obtained to assess for leukocytosis and anemia. Comprehensive metabolic profile will be obtained to assess for hepatic function, renal function, and electrolyte abnormality. High-sensitivity troponin will be obtained to assess for cardiac ischemia. BNP will be obtained to assess for congestive heart failure. CTA of the chest will be obtained to assess for pulmonary embolism. Lab Data Attestation: I reviewed the patient's lab results. Lab results narrative: CBC was reviewed. Patient has a white blood cell count of 58.3. Previous outpatient labs were reviewed and this is consistent with prior results. Patient has a history of CLL. There is a mild anemia with a hemoglobin of 10.5 and hematocrit 34.9. Platelets were normal. Comprehensive metabolic profile was reviewed and was essentially within normal limits. BNP was reviewed and was normal at 90. High-sensitivity troponin was normal at 21. Labs: Laboratory Results - last 24 hr 05/20/22 05/20/22 05/20/22 13:53 13:53 13:53 WBC 58.3 H* RBC 3.76 L Hgb 10.5 L Hct 34.9 L MCV 92.8 MCH 27.9 MCHC 30.1 L RDW Std Deviation 50.3 H RDW Coeff of Zack 15.6 H Plt Count 365 MPV 9.6 Immature Gran % (Auto) 0.400 Neut % (Auto) 15.7 L Lymph % (Auto) 81.[address] [facility] % (Auto) 1.7 Eos % (Auto) 0.5 Baso % (Auto) 0.2 Absolute Neuts (auto) 9.1 H Absolute Lymphs (auto) 47.54 H Nucleated RBC % 0 Diff Path Review May foll Toxic Vacuolation 2+ Sodium 137 Potassium 3.4 L Chloride 103 Carbon Dioxide 25.0 Anion Gap 9 BUN 17 Creatinine 1.13 H Estim Creat Clear Calc 32.98 Est GFR (MDRD) Af Amer 59 L Est GFR (MDRD) Non-Af 49 L BUN/Creatinine Ratio 15.0 Glucose 121 H Calcium 7.8 L Total Bilirubin 0.40 AST 29 ALT 12 L Alkaline Phosphatase 75 Troponin I High Sens 21 B-Natriuretic Peptide 90.4 Total Protein 5.4 L Albumin 1.8 L Globulin 3.6 Albumin/Globulin Ratio 0.5 L Radiography Diagnostic Testing: Clinical Impression(s) from Imaging Studies Chest CTA 05/20/22 14:12 IMPRESSION: Interval development of large right pleural effusion or hepatic hydrothorax. Mild left pleural effusion. Persistent ascites in the upper abdomen. Moderate atelectasis in the right lung base and atelectasis in the left lung base. No evidence of pulmonary embolism. Electronically Signed: Dacia Enriquez MD at 15:18 EST , CTA of the chest was obtained. On my independent review, there is no evidence of pulmonary embolism or aortic dissection. There is a right pleural effusion and a mild left pleural effusion. Radiologist also interpreted the CT scan and noted some persistent ascites in the upper abdomen and atelectasis in the bases bilaterally. EKG Initial EKG: Attestation: I personally reviewed and interpreted this EKG as follows: Interpretation: Sinus Rhythm (92) and Non-Specific ST Changes Comments: EKG was obtained. On my independent interpretation, it showed a normal sinus rhythm with a rate of 92. [place] interval, QRS interval, and QTc intervals were all normal. [place] was normal. There are nonspecific ST-T wave changes. Prior EKG tracings: available for review Prior: Unchanged (06/05/2021) Treatment and Re-Evaluation Narrative: Patient had an episode where she felt anxious and her oxygen saturation dropped into the 80s. Patient was placed on oxygen at that time. Patient was given a dose of Lasix for the pleural effusion. Patient is feeling better. Patient was given a dose of Ativan to help with her anxiety. Patient was able to ambulate down the sultana on room air and maintain oxygen saturation of 93%. Patient wants to go home. Patient was instructed to continue the antibiotic as prescribed until gone. Patient was instructed to follow-up with her primary care physician in 5 to 7 days. Patient was instructed return if worse in any way. Patient and family understood and were agreeable to plan. All questions were answered. Discharge Plan Triage Chief Complaint: Shortness of Breath ED Provider: Khari Clarke Dx/Rx/DC Orders Clinical Impression: Dyspnea, CLL (chronic lymphocytic leukemia), Pleural effusion Instructions: ED Dyspnea, ED Pleural Effusion Prescriptions: No Action aspirin 81 mg tablet,delayed release (DR/EC) 81 mg PO DAILY Qty: 1 0RF ferrous sulfate 325 mg (65 mg iron) tablet 325 mg PO QODAY lisinopril 40 mg tablet 40 mg PO DAILY Hold Instructions: hypotension Label Comments: TAKE 1 TABLET BY MOUTH ONCE DAILY atorvastatin 20 mg tablet 20 mg PO QHS furosemide 20 mg tablet 20 mg PO BID Qty: 180 3RF potassium chloride 10 mEq tablet,ER particles/crystals 10 meq PO DAILY Qty: 90 3RF azithromycin 250 mg tablet See Rx Instructions PO .COMPLEX Qty: 6 0RF Rx Instructions: For 250 mg dose pack: take 500 mg today (day 1), then 250 mg for 4 days (days 2-5) PO guaifenesin 100 mg/5 mL liquid 200 mg PO Q4H PRN (Reason: cough) Qty: 200 0RF Primary Care Provider: Megan Bernardo Referrals: Megan Bernardo MD [Primary Care Provider] - 5-7 Days Disposition Disposition: Home, Self Care
--- NOTE | 2022-05-20 14:11 | EKG12_ITS ---
Test Reason : SOB Blood Pressure : / mmHG Vent. Rate : 092 BPM Atrial Rate : 092 BPM P-R Int : 154 ms QRS Dur : 078 ms QT Int : 388 ms P-R-T Axes : 087 027 083 degrees QTc Int : 479 ms Normal sinus rhythm Nonspecific ST and T wave abnormality Abnormal ECG When compared with ECG of 05-JUN-2021 15:19, Nonspecific T wave abnormality now evident in Anterolateral leads Confirmed by WILL ALONZO, ENOCH ([id number]), videotape editor RUSTY GABRIEL ([id number]) on 05/22/2022 11:14:21 AM Referred By: Confirmed By:ENOCH SOLIS MD
--- NOTE | 2022-05-20 14:12 | CT_ITS ---
HISTORY: SOB for a couple days, placed on antibiotics for respiratory illness. TECHNIQUE: CT angiogram of the chest was performed after the intravenous administration of 100 mL Isovue 370. Post-processing of the angiographic images was performed with multiplanar reformation and 3D reconstruction. Individualized dose optimization techniques were used for this CT. 1161 images. COMPARISON: 04/25/2022. FINDINGS: CENTRAL AIRWAYS: Narrowing of the right middle and lower lobe airways. LUNGS: Mild right upper lobe groundglass opacities. Moderate right middle and lower lobe atelectasis. Mild left lower lobe atelectasis. PLEURA: Large right pleural effusion with leftward mediastinal shift. Mild left pleural effusion. HEART/PERICARDIUM: Heart within normal limits in size. No pericardial effusion. PULMONARY ARTERIES: No filling defect. AORTA/VESSELS: No thoracic aortic aneurysm or dissection flap. Aortic valve prosthesis in place. MEDIASTINUM/CJ: No pathologically enlarged lymph nodes. OSSEOUS STRUCTURES: Degenerative change. Mild chest wall edema. UPPER ABDOMEN: Persistent ascites. CT/CTA Chest W/WO Contrast IMPRESSION: Interval development of large right pleural effusion or hepatic hydrothorax. Mild left pleural effusion. Persistent ascites in the upper abdomen. Moderate atelectasis in the right lung base and atelectasis in the left lung base. No evidence of pulmonary embolism. Electronically Signed: Dacia Enriquez MD at 15:18 EST ,
[2022-05-20 14:22] LABS: Absolute Lymphocyte Count 47.54 X10^3/uL (0.83-4.51); Absolute Neutrophil Count 9.1 X10^3/uL (2.0-7.7); Basophil% 0.2 % (0-1); Eosinophil# 0.31 X10^3/uL; Eosinophils% 0.5 % (0-5); Hematocrit 34.9 % (37-47); Hemoglobin 10.5 g/dL (12.0-15.0); Lymphocyte # 47.54 X10^3/ul (0.83-4.51); Lymphocyte % 81.5 % (19-41); Mean Corp Hgb Conc 30.1 g/dL (32-36); Mean Corpuscular Hgb 27.9 pg (27.0-32.0); Mean Corpuscular Volume 92.8 fL (81-99); Mean Platelet Vol. 9.6 fl (6.2-12.0); Monocyte# 1.01 X10^3/uL; Monocyte% 1.7 % (0-10); NRBC Flagged by Analyzer 0 % (0-5); Neutrophil % 15.7 % (47-70); POSITIVE COUNT YES; POSITIVE DIFFERENTIAL YES; POSITIVE MORPHOLOGY YES; Platelet Count 365 K/mm3 (150-450); RBC Distribution Width CV 15.6 % (11.6-14.6); RBC Distribution Width SD 50.3 fl (35.1-43.9); Red Blood Count 3.76 M/mm3 (4.2-5.4); White Blood Count 58.3 K/mm3 (4.4-11.0)
[2022-05-20 14:23] LABS: Differential Indicated SCAN CRITERIA MET
--- NOTE | 2022-05-20 14:30 | NURSING ---
call from lab , WBC 53.8. Dr tomas made aware.
[2022-05-20 14:40] LABS: ALB/GLOB Ratio 0.5 RATIO (0.9-2.4); AST(SGOT) 29 U/L (15-37); Alanine Aminotransfer ALT/SGPT 12 U/L (13-56); Albumin, Serum 1.8 g/dL (3.2-5.0); Alkaline Phosphatase 75 U/L (45-117); Anion Gap 9 (5-15); BUN 17 mg/dL (7-18); Calcium,Total 7.8 mg/dL (8.5-10.1); Chloride 103 mmol/L (98-107); Creatinine, Serum 1.13 mg/dL (0.55-1.02); EST Glomerular Filtration Rate 49 mL/min (>60); Est Glom Filt Rate - Afr Amer 59 mL/min (>60); Estimated Creatinine Clearance 32.98 ml/min; Globulin 3.6 g/dL (2.2-4.2); Glucose 121 mg/dL (74-106); Potassium 3.4 mmol/L (3.5-5.1); Protein, Total 5.4 g/dL (6.4-8.2); Sodium Level 137 mmol/L (136-145); Troponin-I HS 21 pg/mL (3.0-54.0)
[2022-05-20 14:46] LABS: Vacuolated Cells 2+
[2022-05-20 14:51] LABS: BNP,B-Type NATRIURETIC PEPTIDE 90.4 pg/mL (0-100)
[2022-05-20] MEDS: Furosemide 40 MG/4 ML Vial IV (16:14)
[2022-05-20] MEDS: LORazepam 0.5 MG Tablet PO (18:26)
[2022-05-22 09:32] LABS: Pathologist Review Reviewed
== END 2022-05-20 18:44 | disposition home or self-care (01) ==
PROVIDERS: Emergency Provider Emergency Medicine; PCP Internal Medicine; Visit Provider Emergency Medicine
DX: C91.10 Chronic lymphocytic leukemia of B-cell type not having achieved remission (principal); J90 Pleural effusion, not elsewhere classified; R06.00 Dyspnea, unspecified; J02.9 Acute pharyngitis, unspecified; N18.9 Chronic kidney disease, unspecified; Z87.891 Personal history of nicotine dependence; E78.2 Mixed hyperlipidemia
CPT/HCPCS: 71275; 80053; 83880; 84484; 85025; 93005; 96374; 99285; Q9967; A4216; J1940

== ENCOUNTER 2022-05-24 12:28 | Inpatient (IN) | payer MEDICARE, OTHER, SELFPAY ==
[2022-05-24] VITALS (9 sets, daily range): BP systolic 93–130; BP diastolic 52–89; PULSE 63–85; RESP 16–26; TEMP 36.1–36.7; O2SAT 88–98; BMI 56.9; BMI 25.2
--- NOTE | 2022-05-24 | FLU_PTH ---
PATIENT: ASHLEY ALCANTAR LOC: MS3 U#:[id number] AGE/SX: 81/F ROOM: [facility] RE05/25/[address]: Dr. Piedad Hester MD : 1940 BED: 1 DIS: 05/31/2022 SPEC #: [id number] RECD: 05/24/22 14:46 STATUS: TYLER REDanie #: [id number] JIMENA: 05/24/22 00:[address]: Sai Lee DEPT: CYTOLOGY RECD BY: Karen Ramires ENTERED: 05/25/22 07:36 SP TYPE: Fluid OTHR DR: Dr. Megan Bernardo MD Tissues: Pleural fluid, NOS Procedures: Special Stain Group II Surgery Specimen Level IV Cytospin Fluid HEADER OPERATION: Thoracentesis PRE-OP DIAGNOSIS: Pleural effusion TISSUE SUBMITTED: Thoracentesis fluid for cytology DIAGNOSIS CYTOLOGY Thoracentesis fluid for cytology (cytospin and cell block): Negative for malignant cells. Bloody specimen. See comment. SJ:bess 05/28/2022 COMMENT Correlation with clinical findings and appropriate follow up are necessary. CYTOLOGY STUDY Slides are reviewed. CYTOLOGY GROSS Received is 90 ml of red cloudy fluid labeled with the patient's name and and designated per the requisition as thoracentesis. Submitted for cytology preparation including cell block. / bess 05/25/2022 TC: CPT: 91758, [id number]
--- NOTE | 2022-05-24 12:52 | RAD_ITS ---
STUDY: X-RAY CHEST REASON FOR EXAM: Female, 81 years old. , [place], absent breath sounds distal half on right TECHNIQUE: PA and lateral views of the chest. COMPARISON: Comparison is made with prior study dated 09/14/2021. FINDINGS: EKG electrodes are seen. New large right pleural effusion with compressive atelectasis and/or infiltration in the right lung base. Blunting of the left cosmetic angle with increased markings at the left lung base. There is evidence of a stent in the region of the aortic valve. Normal size heart. Normal mediastinum and juan manuel. Normal visualized pulmonary arteries. Normal visualized aortic arch and descending thoracic aorta. There is demineralization of the osseous structures. Normal visualized ribs, clavicles, and shoulders. There is no demonstrated abnormality of the visualized soft tissue structures of the upper abdomen. RAD/Chest PA and Lateral IMPRESSION: Large right pleural effusion with compressive atelectasis in the right lung. Blunting of the left costophrenic angle with atelectasis at the left lung base. Stent is seen in the region of the aortic valve. Electronically Signed: Mahad Rojas MD at 14:02 EST ,
[2022-05-24 13:14] LABS: Absolute Lymphocyte Count 52.11 X10^3/uL (0.83-4.51); Absolute Neutrophil Count 7.8 X10^3/uL (2.0-7.7); Basophil# 0.14 X10^3/uL; Basophil% 0.2 % (0-1); Eosinophil# 0.59 X10^3/uL; Hematocrit 33.9 % (37-47); Lymphocyte # 52.11 X10^3/ul (0.83-4.51); Mean Corp Hgb Conc 29.5 g/dL (32-36); Mean Corpuscular Hgb 27.3 pg (27.0-32.0); Mean Corpuscular Volume 92.6 fL (81-99); Mean Platelet Vol. 9.1 fl (6.2-12.0); Monocyte# 1.06 X10^3/uL; Monocyte% 1.7 % (0-10); NRBC Flagged by Analyzer 0 % (0-5); Neutrophil # 7.84 X10^3/uL (2.7-7.7); Neutrophil % 12.6 % (47-70); POSITIVE COUNT YES; POSITIVE DIFFERENTIAL YES; POSITIVE MORPHOLOGY YES; Platelet Count 396 K/mm3 (150-450); RBC Distribution Width CV 15.9 % (11.6-14.6); RBC Distribution Width SD 52.1 fl (35.1-43.9); Red Blood Count 3.66 M/mm3 (4.2-5.4)
[2022-05-24 13:27] LABS: Differential Indicated SCAN CRITERIA MET; White Blood Count 62.1 K/mm3 (4.4-11.0)
[2022-05-24 13:31] LABS: ALB/GLOB Ratio 0.6 RATIO (0.9-2.4); AST(SGOT) 29 U/L (15-37); Alanine Aminotransfer ALT/SGPT 15 U/L (13-56); Alkaline Phosphatase 71 U/L (45-117); Anion Gap 10 (5-15); BUN 23 mg/dL (7-18); BUN/Creat Ratio 14.3 RATIO (10-20); Calcium,Total 8.1 mg/dL (8.5-10.1); Chloride 99 mmol/L (98-107); Creatinine, Serum 1.61 mg/dL (0.55-1.02); EST Glomerular Filtration Rate 33 mL/min (>60); Est Glom Filt Rate - Afr Amer 39 mL/min (>60); Estimated Creatinine Clearance 52.57 ml/min; Globulin 3.6 g/dL (2.2-4.2); Glucose 102 mg/dL (74-106); Potassium 3.5 mmol/L (3.5-5.1); Protein, Total 5.6 g/dL (6.4-8.2); Sodium Level 135 mmol/L (136-145)
--- NOTE | 2022-05-24 14:03 | EDS_ITS ---
HPI History of Present Illness Chief Complaint: General Illness Detail of Chief Complaint: Dyspnea, dyspnea on exertion and pulse ox of 81% after activity Informant: patient, family and PCP Onset/Context/Timing Onset: Days Context: Gradual Onset Timing: Continuous and Waxes and wanes Quality: Shortness of breath is worse with activity Location: Not applicable Current Severity: Mild Maximum Severity: Severe Worsened by: Activity or exertion Relieved by: Better with rest Associated Symptoms Associated Symptoms: Patient was recently seen and declined admission. Please read HPI narrativ Narrative Narrative: Patient is an 81-year-old woman who was sent to the emergency room by her primary care physician Dr. Megan Bernardo. Pulse ox was 81% after walking. She is tachypneic at rest. She reports dyspnea on exertion. She had a recent procedure at the [facility] to diagnose intra-abdominal mass. C125 level was elevated. She was referred to Dr. Vince Morse. She subsequently was transferred to [facility] for work-up. Patient does have MyChart. The path report is not available for her review. She was seen May 20 in the emergency department. She was noted to have a significant pleural effusion on the right and small pleural effusion on the left. She declined admission. Patient denies fever or chills. She has had occasional sweats. She reports increased abdominal girth. She states the fluid has been drawn more than once while admitted at the [facility]. Cytology is not known. She has not had a thoracentesis performed. Prior similar symptoms: Yes Recent Illness/Hospitalization: Yes [facility] Medical History Acute maxillary sinusitis, unspecified Acute sinusitis Acute sinusitis Anxiety Aortic regurgitation Aortic stenosis CKD (chronic kidney disease) Contact with and (suspected) exposure to other viral communicable diseases Contusion of left hand including fingers Diarrhea Elevated blood pressure reading in office without diagnosis of hypertension Elevated TSH Glaucoma Hematuria History of right and left heart catheterization (LHC) (~09/29/21) Incontinence Limb weakness Mixed hyperlipidemia Nonrheumatic aortic (valve) stenosis with insufficiency Post herpetic neuralgia Preop exam for internal medicine Shoulder pain Strain of right trapezius muscle Tinnitus Urinary tract infection with hematuria UTI (urinary tract infection) Home Medications aspirin 81 mg tablet,delayed release 81 mg PO DAILY #1 TAB 09/14/21 [Rx Last Taken 04/26/22] ferrous sulfate 325 mg (65 mg iron) tablet 325 mg PO QODAY 01/29/22 [History Last Taken 04/25/22] atorvastatin 20 mg tablet 20 mg PO QHS CHOLESTEROL 04/28/22 [History Last Taken Unknown] lisinopril 40 mg tablet 40 mg PO DAILY BP 04/28/22 [History Last Taken 04/23/22] furosemide 20 mg tablet 20 mg PO BID #180 tabs 05/14/22 [Rx Last Taken Unknown] potassium chloride 10 mEq tablet,extended release(part/cryst) 10 meq PO DAILY #90 tabs 05/14/22 [Rx Last Taken Unknown] guaifenesin 100 mg/5 mL oral liquid 200 mg (10 mL) PO Q4H PRN cough #200 mL 05/19/22 [Rx Last Taken Unknown] escitalopram oxalate 5 mg tablet (Lexapro) 5 mg PO DAILY #30 tabs 05/21/22 [Rx Last Taken Unknown] Allergy/AdvReac Type Severity Reaction Status Date / Time cephalexin [From Keflex] Allergy Severe Other Verified 05/24/22 11:08 Family History Other Colon cancer Diabetes Myocardial infarction Surgical History History of bilateral cataract extraction History of transcatheter aortic valve replacement (TAVR) (~12/14/21) Social History household members: other details: number of children: 4 current occupational 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 Smoking Status: Former smoker alcohol intake: never substance use type: does not use caffeine: Yes Type: tea Number of servings: 1 ROS ROS ED Constitutional Constitutional ED: Reports sweats; Denies chills, fever(s), subjective or weight loss Eyes Eyes: Denies blurry vision, change in vision or diplopia ENT ENT ED: Denies ear pain, rhinorrhea or sore throat Cardiovascular Cardiovascular: Reports orthopnea; Denies chest pain, palpitations, paroxysmal nocturnal dyspnea or racing heartbeat Respiratory/Chest Respiratory/Chest: Reports cough, dyspnea, dyspnea on exertion and orthopnea; Denies paroxysmal nocturnal dyspnea Gastrointestinal Gastrointestinal: Reports other Details: Increased abdominal girth ; Denies abdominal pain, constipation, diarrhea, melena, nausea or vomiting Genitourinary Genitourinary ED: Denies dysuria, hematuria or urinary frequency Musculoskeletal Musculoskeletal: Denies arthralgias, back pain or myalgias Integumentary Denies rash Neurologic Neurologic: Reports weakness; Denies paresthesias Endocrine Endocrinology: Denies cold intolerance or heat intolerance Hematologic/Lymphatic Hematologic/Lymphatic: Reports anemia and other Details: History of CLL EXAM Physical Exam Const Vital Signs: 05/24/22 12:30 05/24/22 13:25 05/24/22 13:29 Temperature 97.0 F L Temperature Source Temporal Pulse Rate 85 72 Respiratory Rate 16 24 H Respiratory Effort Short of Breath Respiratory Pattern Tachypnea Blood Pressure 116/66 104/65 Blood Pressure Mean 82 78 Pulse Ox 93 88 Oxygen Delivery Method Room Air Room Air Oxygen Flow Rate (L/min) 05/24/22 15:16 Temperature Temperature Source Pulse Rate 65 Respiratory Rate 16 Respiratory Effort Respiratory Pattern Blood Pressure 94/52 L Blood Pressure Mean 66 Pulse Ox 96 Oxygen Delivery Method Nasal Cannula Oxygen Flow Rate (L/min) 1 Positive well nourished and well developed Constitutional Narrative: Patient is tachypneic at rest. There is no use of accessory muscles. General Appearance ED: well developed and pallor; Negative for cyanotic, diaphoretic or NAD HEENT Reports moist mucous membranes HEENT Narrative: Head is atraumatic normocephalic. Ears are normal. Nares are patent. Posterior pharynx is normal. Eyes PERRL and EOMs intact bilaterally General Eye ED: Negative for scleral icterus Neck no lymphadenopathy, supple and no JVD Chest Wall inspection of chest normal and palpation of chest normal Resp No normal respiratory effort and No clear to auscultation bilaterally Resp Narrative: There are no breath sounds 1/2-2/3 of the right hemothorax. There is dullness to percussion consistent with an effusion. Auscultation: rales left base Cardio regular rate, regular rhythm, S1 normal heart sound, S2 normal heart sound and no murmurs GI non-tender and non-distended; Negative for hepatosplenomegaly GI Narrative: Patient has a fluid wave. There is shifting dullness to percussion consistent with Auscultation: hypoactive bowel sounds Palpation: soft; Negative for tender, guarding, splenomegaly, mass or rebound tenderness present Back/Spine no CVA tenderness Cervical Spine: Negative for cervical spine tenderness Thoracic Spine / Upper Back: Negative for thoracic spinal tenderness Lumbar Spine / Lower Back: Negative for lumbar spinal tenderness Extremity Negative for normal to inspection General Extremety ED: Yes edema General Extremity: edema Neuro oriented x3, CN's II-XII intact bilaterally and no sensory deficits noted Sensorium / Orientation: alert Psych Mood & Affect: depressed Skin No no rashes or lesions noted, no wounds and No skin turgor normal General Skin Exam: pallor; Negative for jaundice MDM MDM MDM Narrative Medical decision making narrative: Suspect patient's hypoxia, respiratory symptoms are due to a large right pleural effusion. X-ray was obtained to confirm suspicion for a large right pleural effusion. CBC was obtained because patient appears pale and to compare to prior. We will also obtain electrolyte panel to assess BUN/creatinine and electrolyte. Liver profile was obtained to assess transaminases and determine if there is any concern for metastasis of this intra-abdominal mass. Ultrasound-guided thoracentesis was ordered. This was performed by Dr. Glasgow. 1700 cc of bloody cloudy fluid was obtained. Fluid was sent for site allergy. Patient is scheduled for paracentesis tomorrow. The biological science technician fish will contact Dr. Murrieta to change orders for paracentesis to be performed at [facility] which would be much more convenient for the patient. Lab Data Attestation: I reviewed the patient's lab results. Lab results narrative: White count is 62,000 with predominant lymphocytes consistent with CLL. Comprehensive metabolic panel is marked for BUN/creatinine of 23 and 1.61. GFR is 33. Total albumin and total protein are low at 2.0 and 5.6 respectively. Creatinine is elevated from baseline 1.16-1.61. Postthoracentesis chest x-ray reveals residual right pleural effusion. There is no evidence of pneumothorax. Labs: Laboratory Results - last 24 hr 05/24/22 05/24/22 13:00 13:00 WBC 62.1 H* RBC 3.66 L Hgb 10.0 L Hct 33.9 L MCV 92.6 MCH 27.3 MCHC 29.5 L RDW Std Deviation 52.1 H RDW Coeff of Zack 15.9 H Plt Count 396 MPV 9.1 Immature Gran % (Auto) 0.500 Neut % (Auto) 12.6 L Lymph % (Auto) 84.0 H [place] % (Auto) 1.7 Eos % (Auto) 1.0 Baso % (Auto) 0.2 Absolute Neuts (auto) 7.8 H Absolute Lymphs (auto) 52.11 H Eosinophils % (Manual) 0.59 Nucleated RBC % 0 Differential Comment SCANNED Diff Path Review May foll Smudge Cells 3+ Sodium 135 L Potassium 3.5 Chloride 99 Carbon Dioxide 26.0 Anion Gap 10 BUN 23 H Creatinine 1.61 H Estim Creat Clear Calc 52.57 Est GFR (MDRD) Af Amer 39 L Est GFR (MDRD) Non-Af 33 L BUN/Creatinine Ratio 14.3 Glucose 102 Calcium 8.1 L Total Bilirubin 0.30 AST 29 ALT 15 Alkaline Phosphatase 71 Total Protein 5.6 L Albumin 2.0 L Globulin 3.6 Albumin/Globulin Ratio 0.6 L Radiography Chest X-Ray - ED: 2 View and Read by ED Physician (There is a small left pleural effusion. There is a significant right pleural effusion which occupies two thirds of one half of the right thorax. The right cardiac silhouette is obscured. There is no significant bony abnormalities noted. This was independently reviewed and interpreted by me.) Diagnostic Testing: Clinical Impression(s) from Imaging Studies Chest X-Ray 05/24/22 12:52 IMPRESSION: Large right pleural effusion with compressive atelectasis in the right lung. Blunting of the left costophrenic angle with atelectasis at the left lung base. Stent is seen in the region of the aortic valve. Electronically Signed: Mahad Rojas MD at 14:02 EST , Thoracentesis Ultrasound 05/24/22 14:12 IMPRESSION: Ultrasound-guided right thoracentesis. Electronically Signed: Mahad Rojas MD at 15:09 EST , Chest X-Ray 05/24/22 14:55 IMPRESSION: No evidence of pneumothorax following right thoracentesis. Electronically Signed: Mahad Rojas MD at 15:10 EST , Treatment and Re-Evaluation Narrative: Patient was 95% on 1 L. Oxygen was removed. Patient dropped to 88%. She was placed back on oxygen. There was a good waveform when pulse ox read 88%. Will contact hospitalist for observation for oxygen therapy and discussed possibility of having the paracentesis done here at [facility] versus [facility]. Discharge Plan Dx/Rx/DC Orders Clinical Impression: Bilateral pleural effusion, Abdominal ascites, Elevated CA-125, Hypoxia, Abdominal mass, CLL (chronic lymphocytic leukemia), Malignant ascites, Acute kidney insufficiency Disposition Disposition: Acute Care Hospital [facility]
--- NOTE | 2022-05-24 14:12 | US_ITS ---
PROCEDURE: ULTRASOUND GUIDED THORACENTESIS. DATE: 05/24/2022. INDICATION: Female, 81 years old. Right pleural effusion. PHYSICIAN: Mahad Rojas M.D. PROCEDURE: The risks, benefits, and alternatives to the procedure were explained to the patient. The specific risks of bleeding, infection, and pneumothorax requiring chest tube insertion were discussed and accepted. Written informed consent was obtained. Ultrasonographic evaluation of the right lower pleural space was carried out. An adequate pocket was identified. The patient was placed in the sitting, upright position. The overlying skin was prepped and draped in sterile fashion. 1% lidocaine was administered subcutaneously for local anesthesia. Under ultrasound guidance, a 5 Filipino thoracentesis needle/catheter system was advanced into the right posterior lower pleural fluid collection. Approximately 1750 mL of blood tinged fluid was drained. The catheter was removed, and a sterile dressing was applied. A specimen was collected and sent to the laboratory for analysis, as requested by the referring clinician. The patient tolerated the procedure well. A chest x-ray was ordered. US/Thoracentesis W US IMPRESSION: Ultrasound-guided right thoracentesis. Electronically Signed: Mahad Rojas MD at 15:09 EST ,
[2022-05-24 14:20] LABS: Smudge Cells 3+
[2022-05-24 14:24] LABS: Differential Comment SCANNED; Eosinophil 0.59 % (0-5)
[2022-05-24] MEDS: Lidocaine 2% (20 ml mdv) 20 ML Vial INFILT (14:40)
--- NOTE | 2022-05-24 14:55 | RAD_ITS ---
STUDY: X-RAY CHEST REASON FOR EXAM: Female, 81 years old. Dyspnea, hypoxia due to large right pleural effusion TECHNIQUE: AP inspiration and expiration views. COMPARISON: Comparison is made with prior study done earlier in the day. FINDINGS: The patient is status post right thoracentesis. Mild residual pleural-parenchymal changes are seen at the right lung base. There is no evidence of pneumothorax. RAD/Chest Insp/Exp 2 View IMPRESSION: No evidence of pneumothorax following right thoracentesis. Electronically Signed: Mahad Rojas MD at 15:10 EST ,
--- NOTE | 2022-05-24 15:47 | PCM.HP.STD ---
HPI - General General Date of Admission: 05/24/22 Date of Service: 05/24/22 Chief Complaint: Shortness of breath, cough for 6 days HPI Narrative ASHLEY ALCANTAR, is a 81 F with history of CLL, pelvic mass with recent laparoscopic biopsy including clinic main campus on 05/16 came to ED for shortness of breath, could not lay flat, exertional dyspnea and cough for 6 days. She came to ED on 05/20 for cough sore throat, exertional dyspnea and orthopnea. Her PCP prescribed Zithromax and cough guaifenesin on 05/19. She was sent home and she was able to ambulate and maintain pulse ox 93% on room air. She saw her PCP Dr. Megan Bernardo for worsening shortness of breath, increasing right pleural effusion, hypoxic, pulse ox 81% on walking and tachypneic therefore sent to ED. Biopsy result from pelvic mass still not available. In ED today, she has exertional dyspnea,Hypoxic 88% on room air, BP 100/65 heart rate 72/min. Chest x-ray shows a large right pleural effusion. Therefore had ultrasound-guided right thoracocentesis today. She had 1700 mL mild bloody thoracocentesis. Patient states she had paracentesis done during laparoscopic biopsy and requires weekly paracentesis. She already had 3 paracentesis in the month of May 2022. She wants to come to [facility] for paracentesis. Besides that, she has history of CLL with her last admission in April 2022. [facility] Medical History Acute maxillary sinusitis, unspecified Acute sinusitis Acute sinusitis Anxiety Aortic regurgitation Aortic stenosis CKD (chronic kidney disease) Contact with and (suspected) exposure to other viral communicable diseases Contusion of left hand including fingers Diarrhea Elevated blood pressure reading in office without diagnosis of hypertension Elevated TSH Glaucoma Hematuria History of right and left heart catheterization (LHC) (~09/29/21) Incontinence Limb weakness Mixed hyperlipidemia Nonrheumatic aortic (valve) stenosis with insufficiency Post herpetic neuralgia Preop exam for internal medicine Shoulder pain Strain of right trapezius muscle Tinnitus Urinary tract infection with hematuria UTI (urinary tract infection) Home Medications aspirin 81 mg tablet,delayed release 81 mg PO DAILY #1 TAB 09/14/21 [Rx Last Taken 04/26/22] ferrous sulfate 325 mg (65 mg iron) tablet 325 mg PO QODAY 01/29/22 [History Last Taken 04/25/22] atorvastatin 20 mg tablet 20 mg PO QHS CHOLESTEROL 04/28/22 [History Last Taken Unknown] lisinopril 40 mg tablet 40 mg PO DAILY BP 04/28/22 [History Last Taken 04/23/22] furosemide 20 mg tablet 20 mg PO BID #180 tabs 05/14/22 [Rx Last Taken Unknown] potassium chloride 10 mEq tablet,extended release(part/cryst) 10 meq PO DAILY #90 tabs 05/14/22 [Rx Last Taken Unknown] guaifenesin 100 mg/5 mL oral liquid 200 mg (10 mL) PO Q4H PRN cough #200 mL 05/19/22 [Rx Last Taken Unknown] escitalopram oxalate 5 mg tablet (Lexapro) 5 mg PO DAILY #30 tabs 05/21/22 [Rx Last Taken Unknown] Allergy/AdvReac Type Severity Reaction Status Date / Time cephalexin [From Keflex] Allergy Severe Other Verified 05/24/22 11:08 Family History Other Colon cancer Diabetes Myocardial infarction Surgical History History of bilateral cataract extraction History of transcatheter aortic valve replacement (TAVR) (~12/14/21) Social History household members: other details: number of children: 4 current occupational 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 Smoking Status: Former smoker alcohol intake: never substance use type: does not use caffeine: Yes Type: tea Number of servings: 1 ROS ROS Narrative Constitutional: Reports fatigue and weakness, not able to lay flat. HEENT: Reports systems reviewed and no addt'l complaints, except as documented Respiratory/Chest: Mild cough, improved after thoracocentesis. Dyspnea at rest and minimal exertion. Orthopnea. Large right pleural effusion. CVS: No chest pain pressure or tightness. Had cardiac cath in September 2021, no significant CAD Gastrointestinal: Denies coffee ground emesis, hematemesis or vomiting Genitourinary: External urinary catheter, no urine output. Feels urge for urination. Denies burning urination Musculoskeletal: Reports joint pain and limited range of motion. Bilateral lower leg swelling/edema Neurologic: Denies seizure-like activity skin: No ulcer. No rash Endocrinology: Reports systems reviewed and no addt'l complaints, except as documented Hematologic/Lymphatic: CLL. Follows [facility] oncologist. Reports systems reviewed and no addt'l complaints, except as documented Rest 14 ROS are negative except as mentioned in HPI Vital Signs Vital Signs Vital Signs: 05/24/22 12:30 05/24/22 13:25 05/24/22 13:29 Temperature 97.0 F L Temperature Source Temporal Pulse Rate 85 72 Respiratory Rate 16 24 H Respiratory Effort Short of Breath Respiratory Pattern Tachypnea Blood Pressure 116/66 104/65 Blood Pressure Mean 82 78 Pulse Ox 93 88 Oxygen Delivery Method Room Air Room Air Oxygen Flow Rate (L/min) 05/24/22 15:16 Temperature Temperature Source Pulse Rate 65 Respiratory Rate 16 Respiratory Effort Respiratory Pattern Blood Pressure 94/52 L Blood Pressure Mean 66 Pulse Ox 96 Oxygen Delivery Method Nasal Cannula Oxygen Flow Rate (L/min) 1 Weight Weight: 272 lb 7.861 oz Body Mass Index (BMI) 56.9 Physical Exam Narrative Physical exam General: Alert, Oriented x3, Cooperative, BMI 25.2 kg/m? HEENT: Atraumatic, PERRLA, EOMI, Normocephalic Oral: Oral mucosa moist. No Gingival or Mucosal Lesions/ Ulcerations Neck: Supple, No JVD, Negative Carotid Bruits Lungs: Air entry diminished in bilateral lung bases. Status post thoracocentesis. Dressing dry. No crepitation/rhonchi Cardiovascular: Regular rate, Regular Rhythm, Normal S1, Normal S2, no audible murmur. Abdomen: Bowel Sounds Present, Soft, Non Tender, mild distention, ascites. : No renal angle tenderness. No suprapubic tenderness. Extremities: Bilateral LE, pitting edema 3+, Capillary Refill Less than 3 Seconds Skin: No rashes, No breakdown Musculoskeletal: No Tenderness to Palpation of Joints or Extremities, ROM restricted due to swelling. Neurological: Cranial nerves II-XII grossly intact, DTR 2+/4 and Symmetrical, Neuro grossly intact Psych/Mental Status: Flat affect. Results Lab / Micro Data Result Diagrams: 05/24/22 13:00 05/24/22 13:00 Labs: Laboratory Results - last 24 hr 05/24/22 13:00: WBC 62.1 H*, RBC 3.66 L, Hgb 10.0 L, Hct 33.9 L, MCV 92.6, MCH 27.3, MCHC 29.5 L, RDW Std Deviation 52.1 H, RDW Coeff of Zack 15.9 H, Plt Count 396, MPV 9.1, Immature Gran % (Auto) 0.500, Neut % (Auto) 12.6 L, Lymph % (Auto) 84.0 H, [place] % (Auto) 1.7, Eos % (Auto) 1.0, Baso % (Auto) 0.2, Absolute Neuts (auto) 7.8 H, Absolute Lymphs (auto) 52.11 H, Eosinophils % (Manual) 0.59, Nucleated RBC % 0, Differential Comment SCANNED, Diff Path Review May foll, Smudge Cells 3+ 05/24/22 13:00: Sodium 135 L, Potassium 3.5, Chloride 99, Carbon Dioxide 26.0, Anion Gap 10, BUN 23 H, Creatinine 1.61 H, Estim Creat Clear Calc 52.57, Est GFR (MDRD) Af Amer 39 L, Est GFR (MDRD) Non-Af 33 L, BUN/Creatinine Ratio 14.3, Glucose 102, Calcium 8.1 L, Total Bilirubin 0.30, AST 29, ALT 15, Alkaline Phosphatase 71, Total Protein 5.6 L, Albumin 2.0 L, Globulin 3.6, Albumin/Globulin Ratio 0.6 L Radiology Impression Chest X-Ray 05/24/22 12:52 IMPRESSION: Large right pleural effusion with compressive atelectasis in the right lung. Blunting of the left costophrenic angle with atelectasis at the left lung base. Stent is seen in the region of the aortic valve. Electronically Signed: Mahad Rojas MD at 14:02 EST , Thoracentesis Ultrasound 05/24/22 14:12 IMPRESSION: Ultrasound-guided right thoracentesis. Electronically Signed: Mahad Rojas MD at 15:09 EST , Chest X-Ray 05/24/22 14:55 IMPRESSION: No evidence of pneumothorax following right thoracentesis. Electronically Signed: Mahad Rojas MD at 15:10 EST , Assessment & Plan Assessment/Plan (1) Bilateral pleural effusion: (2) Malignant ascites: PLAN: Plan 1. Right large pleural effusion most likely malignant and associated with mild cough, dyspnea at rest and hypoxia: Chest x-ray shows two third of right chest filled with pleural effusion. Had ultrasound-guided thoracocentesis by Dr. Alfonso, 1750 mL blood-tinged fluid drained. Pleural fluid cytology and culture ordered. Pleural fluid analysis pending. Patient is on 1 to 2 L of oxygen. She can lay flat/supine. Cough is also better. Continue guaifenesin and incentive spirometry. She had Zithromax as an outpatient. I think cough is due to large pleural effusion. 2. Ascites most likely malignant ascites status post 3 paracentesis in 2022: I ordered ultrasound-guided paracentesis for tomorrow AM. Labs ordered. 3. Pelvic mass: Patient had ultrasound in April 2022 which shows large pedunculated fibroid in left adnexa and moderate ascites. She had laparoscopic biopsy with ascites drainage on 04/15/2022Saturday as per daughter. As per daughter, mass is situated in the left adnexal area. Pathology of the mass is pending. Advised follow-up with PCP and [facility] oncologist 4. Chronic lymphocytic leukemia oncologist: She follows at the [facility]. She has chronically elevated WBC count. WBC 62,000, H&H 10/34%, platelet count 396,000. Mild chronic normocytic normochromic anemia 5. Aortic stenosis/AI status post TAVR in November 2021: Last echo in January 2020 to include in clinic. EF 65%. RV normal in size and systolic function. RA moderately dilated. Status post TAVR, portico prosthetic AV size #25. Mild 1+ AR. Mild MR and TR. She had right and left cardiac cath by Dr. Puri in September 2021 reported right heart pressure normal, no intracardiac shunting. Mid LAD 25% otherwise angiographically normal coronary arteries. ALC 52,000 6. RINA on CKD stage IIIb most likely due to recurrent paracentesis: BUN/creatinine 23/1.61. Last BUN/creatinine 17/1.13 on 05/20/2022 with estimated creatinine 132 mL/min. Patient also on furosemide 20 mg twice daily. Hold Lasix and lisinopril. 7. Essential hypertension-BP in ED is low therefore hold antihypertensive medication. 8. Hyperlipidemia-patient is on atorvastatin Living will/advanced directive/end of life care: Patient doesn't have living will or advanced directive. Her daughter is power of document review attorney for health. After discussion of benefits/risks procedures involved with full code, DNR CC arrest and DNR CC, the patient and her daughter opted for full code. Patient does want artificial life support including intubation, tube feed, ventilator and/chest compression, central venous catheter, vasopressor and DC shock if needed Total time spent in [id number] encounter in discussion of advanced directive 17 minutes. Laboratory Results 05/24/22 13:00: WBC 62.1 H*, RBC 3.66 L, Hgb 10.0 L, Hct 33.9 L, MCV 92.6, MCH 27.3, MCHC 29.5 L, RDW Std Deviation 52.1 H, RDW Coeff of Zack 15.9 H, Plt Count 396, MPV 9.1, Immature Gran % (Auto) 0.500, Neut % (Auto) 12.6 L, Lymph % (Auto) 84.0 H, [place] % (Auto) 1.7, Eos % (Auto) 1.0, Baso % (Auto) 0.2, Absolute Neuts (auto) 7.8 H, Absolute Lymphs (auto) 52.11 H, Eosinophils % (Manual) 0.59, Nucleated RBC % 0, Differential Comment SCANNED, Diff Path Review May foll, Smudge Cells 3+ 05/24/22 13:00: Sodium 135 L, Potassium 3.5, Chloride 99, Carbon Dioxide 26.0, Anion Gap 10, BUN 23 H, Creatinine 1.61 H, Estim Creat Clear Calc 52.57, Est GFR (MDRD) Af Amer 39 L, Est GFR (MDRD) Non-Af 33 L, BUN/Creatinine Ratio 14.3, Glucose 102, Calcium 8.1 L, Total Bilirubin 0.30, AST 29, ALT 15, Alkaline Phosphatase 71, Total Protein 5.6 L, Albumin 2.0 L, Globulin 3.6, Albumin/Globulin Ratio 0.6 L 05/24/22 14:13: Fluid Glucose Pending, Fluid Total Protein Pending, Fluid LDH Pending 05/24/22 14:25: Fluid Source Pending, Fluid Color Pending, Fluid Appearance Pending, Fluid WBC Pending, Fluid RBC Pending, Fluid Tot Cell Count Pending, Fl Pathologist Comment Pending, Fluid Comment 2 Pending Charges/Coding Visit Charges Inpatient E&M: 93034 Init Hosp L3 Procedures Hospitalists Procedures: 84538 Advncd Care Plan 30 Min
[2022-05-24 15:53] LABS: Glucose, Body Fluid 109 mg/dL (40-70); LDH,Body Fluid 496 Units/l (Not Establ.); Protein, Body Fluid 3.1 g/dL (Not Establ.)
[2022-05-24 16:02] LABS: Body Fluid Mononuclear WBC # 0.685 10^3/uL; Body Fluid Mononuclear WBC % 86.1 %; Body Fluid Polynuclear WBC % 13.9 %; Body Fluid Total Cells Counted 0.932 10^3/ul; Red Cell Count/Body Fluid 0.051 10^6/ul; White Blood Count/Body Fluid 0.795 10^3/uL
[2022-05-24 16:20] LABS: LDH 419 U/L (84-246)
[2022-05-24 18:48] LABS: Auto B Fluid Analyzer BKGD Ct COUNTS W/IN LIMITS (W/IN LIMITS); Lymphocytes 47 %; Macrophages 2 %; Mesothelial Cells 28 %; Monocytes 8 %; Neutrophil (Segs) 15 %
[2022-05-24 18:49] LABS: Appearance/Body Fluid CLOUDY; Color/Body Fluid RED; Source- Body Fluid THORACENTESIS
[2022-05-24 18:50] LABS: Body Fluid QC Type(s) BF1Q
[2022-05-24] MEDS: guaiFENesin/D-Methorphan TAB.SR.12H 2 TABLET PO (21:39)
[2022-05-25] VITALS (11 sets, daily range): BP systolic 95–109; BP diastolic 49–73; PULSE 58–68; RESP 16–18; TEMP 36.6–36.9; O2SAT 93–96; BMI 25.9
[2022-05-25 06:01] LABS: Absolute Lymphocyte Count 41.75 X10^3/uL (0.83-4.51); Basophil# 0.17 X10^3/uL; Basophil% 0.3 % (0-1); Eosinophil# 0.89 X10^3/uL; Eosinophils% 1.7 % (0-5); Hematocrit 30.3 % (37-47); Lymphocyte # 41.75 X10^3/ul (0.83-4.51); Lymphocyte % 80.3 % (19-41); Mean Corp Hgb Conc 29.7 g/dL (32-36); Mean Corpuscular Hgb 27.5 pg (27.0-32.0); Mean Corpuscular Volume 92.7 fL (81-99); Mean Platelet Vol. 9.7 fl (6.2-12.0); Monocyte# 0.97 X10^3/uL; Monocyte% 1.9 % (0-10); NRBC Flagged by Analyzer 0 % (0-5); Neutrophil % 15.4 % (47-70); POSITIVE COUNT YES; POSITIVE DIFFERENTIAL YES; POSITIVE MORPHOLOGY YES; Platelet Count 357 K/mm3 (150-450); RBC Distribution Width CV 16.2 % (11.6-14.6); RBC Distribution Width SD 53.1 fl (35.1-43.9); Red Blood Count 3.27 M/mm3 (4.2-5.4)
[2022-05-25 06:14] LABS: Differential Indicated SCAN CRITERIA MET
[2022-05-25 06:24] LABS: Albumin, Serum 1.5 g/dL (3.2-5.0); Anion Gap 6 (5-15); BUN 23 mg/dL (7-18); BUN/Creat Ratio 17.8 RATIO (10-20); Calcium,Total 7.7 mg/dL (8.5-10.1); Chloride 101 mmol/L (98-107); Creatinine, Serum 1.29 mg/dL (0.55-1.02); EST Glomerular Filtration Rate 42 mL/min (>60); Est Glom Filt Rate - Afr Amer 51 mL/min (>60); Estimated Creatinine Clearance 29.72 ml/min; Glucose 100 mg/dL (74-106); Potassium 3.7 mmol/L (3.5-5.1); Sodium Level 134 mmol/L (136-145)
[2022-05-25 06:49] LABS: Differential Comment SCANNED; Smudge Cells 1+
[2022-05-25] MEDS: Escitalopram Oxalate 10 MG Tablet 5 MG PO (08:42)
[2022-05-25] MEDS: Potassium Chloride Oral Tablet 10 MEQ PO (08:42)
[2022-05-25] MEDS: guaiFENesin/D-Methorphan TAB.SR.12H 2 TABLET PO ×2 (08:42→21:51)
[2022-05-25 10:34] LABS: Pathologist Comment/Body Fluid Reviewed
[2022-05-25 10:37] LABS: Pathologist Review Reviewed
--- NOTE | 2022-05-25 12:09 | PCM.PN.HOSP ---
Reason for Visit Reason for Visit: Diagnoses Pleural effusion, not elsewhere classified (05/24/22) Malignant ascites (05/24/22) Subjective Subjective Breathing ok after thoracentesis. Abdomen is slightly distress, but nontender. Objective Data Objective Data Vital Signs: Vital Signs Temp Pulse Resp BP Pulse Ox O2 Del Method O2 Flow Rate 36.8 C 61 18 99/51 L 93 Nasal Cannula 3 05/25/22 10:51 05/25/22 10:51 05/25/22 10:51 05/25/22 10:51 05/25/22 10:51 05/25/22 10:51 05/25/22 10:51 Oxygen Flow Rate (L/min) [4] 2 Oxygen Flow Rate (L/min) [3] 4 Oxygen Flow Rate (L/min) [2] 4 Oxygen Flow Rate (L/min) [1 ( 4 Initial Baseline)] Oxygen Flow Rate (L/min) 3 Oxygen Delivery Method [4] Nasal Cannula Oxygen Delivery Method [3] Nasal Cannula Oxygen Delivery Method [2] Nasal Cannula Oxygen Delivery Method [1 ( Nasal Cannula Initial Baseline)] Oxygen Delivery Method Nasal Cannula Weight: 56 kg Body Mass Index (BMI) 25.9 Intake & Output: Intake and Output for Last 24 Hours 05/23/22 05/24/22 05/25/22 23:59 23:59 23:59 Intake Total 400 / 400 Output Total 1750 / 1750 Balance -1750 / -1750 400 / 400 Lab / Micro Data Result Diagrams: 05/25/22 04:40 05/25/22 04:40 Labs: Laboratory Results - last 24 hr 05/24/22 13:00: WBC 62.1 H*, RBC 3.66 L, Hgb 10.0 L, Hct 33.9 L, MCV 92.6, MCH 27.3, MCHC 29.5 L, RDW Std Deviation 52.1 H, RDW Coeff of Zack 15.9 H, Plt Count 396, MPV 9.1, Immature Gran % (Auto) 0.500, Neut % (Auto) 12.6 L, Lymph % (Auto) 84.0 H, [place] % (Auto) 1.7, Eos % (Auto) 1.0, Baso % (Auto) 0.2, Absolute Neuts (auto) 7.8 H, Absolute Lymphs (auto) 52.11 H, Eosinophils % (Manual) 0.59, Nucleated RBC % 0, Differential Comment SCANNED, Diff Path Review Reviewed, Smudge Cells 3+ 05/24/22 13:00: Sodium 135 L, Potassium 3.5, Chloride 99, Carbon Dioxide 26.0, Anion Gap 10, BUN 23 H, Creatinine 1.61 H, Estim Creat Clear Calc 52.57, Est GFR (MDRD) Af Amer 39 L, Est GFR (MDRD) Non-Af 33 L, BUN/Creatinine Ratio 14.3, Glucose 102, Calcium 8.1 L, Total Bilirubin 0.30, AST 29, ALT 15, Alkaline Phosphatase 71, Total Protein 5.6 L, Albumin 2.0 L, Globulin 3.6, Albumin/Globulin Ratio 0.6 L 05/24/22 13:00: Lactate Dehydrogenase 419 H 05/24/22 13:00: Magnesium 2.0 05/24/22 14:13: Fluid Glucose 109 H, Fluid Total Protein 3.1, Fluid LDH 496 05/24/22 14:25: Fluid Source THORACENTESIS, Fluid Color RED, Fluid Appearance CLOUDY, Fluid WBC 0.795, Fluid RBC 0.051, Fluid Tot Cell Count 0.932 H, Fld Polynuclear WBCs # 0.110, Fld Polynuclear WBCs % 13.9, Fluid Mononuclear WBCs 0.685, Fld Mononuclear WBCs % 86.1, Fluid Neutrophils 15, Fluid Lymphocytes 47, Fluid Monocytes 8, Fluid Macrophages 2, Fld Mesothelial Cells 28, Fl Pathologist Comment Reviewed, Fluid Comment 2 SEE COMMENT 05/25/22 04:40: WBC 52.0 H*, RBC 3.27 L, Hgb 9.0 L, Hct 30.3 L, MCV 92.7, MCH 27.5, MCHC 29.7 L, RDW Std Deviation 53.1 H, RDW Coeff of Zack 16.2 H, Plt Count 357, MPV 9.7, Immature Gran % (Auto) 0.400, Neut % (Auto) 15.4 L, Lymph % (Auto) 80.3 H, [place] % (Auto) 1.9, Eos % (Auto) 1.7, Baso % (Auto) 0.3, Absolute Neuts (auto) 8.0 H, Absolute Lymphs (auto) 41.75 H, Nucleated RBC % 0, Differential Comment SCANNED, Diff Path Review May foll, Smudge Cells 1+ H 05/25/22 04:40: Sodium 134 L, Potassium 3.7, Chloride 101, Carbon Dioxide 27.0, Anion Gap 6, BUN 23 H, Creatinine 1.29 H, Estim Creat Clear Calc 29.72, Est GFR (MDRD) Af Amer 51 L, Est GFR (MDRD) Non-Af 42 L, BUN/Creatinine Ratio 17.8, Glucose 100, Calcium 7.7 L, Albumin 1.5 L Radiography Diagnostic Testing: Radiology Impression Chest X-Ray 05/24/22 12:52 IMPRESSION: Large right pleural effusion with compressive atelectasis in the right lung. Blunting of the left costophrenic angle with atelectasis at the left lung base. Stent is seen in the region of the aortic valve. Electronically Signed: Mahad Rojas MD at 14:02 EST , Thoracentesis Ultrasound 05/24/22 14:12 IMPRESSION: Ultrasound-guided right thoracentesis. Electronically Signed: Mahad Rojas MD at 15:09 EST , Chest X-Ray 05/24/22 14:55 IMPRESSION: No evidence of pneumothorax following right thoracentesis. Electronically Signed: Mahad Rojas MD at 15:10 EST , Physical Exam Const alert and no apparent distress HEENT head/scalp atraumatic Neck no lymphadenopathy Resp normal respiratory effort and no retractions Resp Narrative: diminished RLL. Cardio regular rate, regular rhythm, S1 normal heart sound and S2 normal heart sound GI normal to inspection, nondistended, normoactive bowel sounds Extremity Extremity Narrative: +2 edema bilateral LE. Neuro oriented x3 and moves all extremities Psych affect normal Assessment & Plan Assessment/Plan (1) Bilateral pleural effusion: PLAN: R>L S/P right sided thoracentesis w removal of 1.75L Appear exudative. Cannot rule out communication with ascites (2) Malignant ascites: PLAN: suspected 2/2 pelvic mass hold off on paracentesis for now as abdomen appear soft. furosemide (3) Hypoalbuminemia: PLAN: Albumin 1.5. Complicates pleural effusion and ascites Will give albumin (4) Hypotension: PLAN: Replace albumin. Start midodrine (5) Pelvic mass: PLAN: had biopsy last week follow up with Dr. Mar Tentative plan for neoadjuvant chemotherapy, then surgery (6) RINA (acute kidney injury): PLAN: Resolved RINA on CKD stage IIIb most likely due to recurrent paracentesis: BUN/creatinine 23/1.61. Last BUN/creatinine 17/1.13 on 05/20/2022 with estimated creatinine 132 mL/min. PLAN: Plan Chronic conditions: Chronic lymphocytic leukemia oncologist: She follows at the [facility]. She has chronically elevated WBC count. WBC 62,000, H&H 10/34%, platelet count 396,000. Mild chronic normocytic normochromic anemia Aortic stenosis/AI status post TAVR in November 2021: Last echo in January 2020 to include in clinic. EF 65%. RV normal in size and systolic function. RA moderately dilated. Status post TAVR, portico prosthetic AV size #25. Mild 1+ AR. Mild MR and TR. She had right and left cardiac cath by Dr. Puri in September 2021 reported right heart pressure normal, no intracardiac shunting. Mid LAD 25% otherwise angiographically normal coronary arteries. ALC 52,000 Essential hypertension-BP in ED is low therefore hold antihypertensive medication. Hyperlipidemia-patient is on atorvastatin VTE prophylaxis: SCDs. Charges/Coding Visit Charges Inpatient E&M: 71098 Subs Hosp L3
[2022-05-25 12:35] LABS: Pathologist Review Reviewed
[2022-05-25] MEDS: Ondansetron 4 MG/2 ML Vial IV (12:50)
[2022-05-25] MEDS: 0.9% Saline Lock 10 ML Syringe IV ×2 (12:51→15:07)
[2022-05-25] MEDS: Albumin Human 25% (50 mL) 12.5 GM/50 ML IV.SOLN IV (13:56)
--- NOTE | 2022-05-25 15:18 | CASEMGMT ---
REG VERNON Readmission Note Previous Admission:? 04/28/22-04/30/22? Diagnosis:?peritonitis DC Disposition: Home Current Admission? Current diagnosis: hypoxia, malignant pleural effusion Pt presented to the ER with shortness of breath. Pt is 81 F with history of CLL, pelvic mass with recent laparoscopic biopsy at [facility] on 05/16. Pt reports she has followed up with [facility] physicians since last hospital stay. Pt reports she is I in ADL's at home and has been taking her medications as ordered. Per notes, pt receives weekly paracentesis. Pt currently on oxygen in hospital but does not have at home. Discussed homegoing oxygen process should pt need oxygen upon dc. Provided pt with a verbal local in network list of DME companies, pt chose [employer]. Green sheet on the chart. Pt denies any homegoing needs or services/education in the home. DC Plan: Home, follow for oxygen
[2022-05-25] MEDS: Midodrine HCl 5 MG Tablet 10 MG PO (17:41)
[2022-05-25] MEDS: Furosemide 40 MG Tablet PO (17:41)
[2022-05-25] MEDS: Enoxaparin 40 MG/0.4 ML Syringe SC (21:49)
[2022-05-25] MEDS: traZODone 50 MG Tablet 25 MG PO (21:50)
[2022-05-26] VITALS (9 sets, daily range): BP systolic 91–127; BP diastolic 43–82; PULSE 54–57; RESP 16–18; TEMP 36.7–37; O2SAT 94–97; BMI 26.6
--- NOTE | 2022-05-26 05:55 | RAD_ITS ---
INDICATION: pleural effusion EXAMINATION/TECHNIQUE: X-RAY - XR Chest 1 View AP portable. 6:08 AM COMPARISON: 05/24/2022. FINDINGS: LINES/DEVICES: None. LUNGS: Large right pleural effusion is increased. Increased consolidation or atelectasis in the right lung base. Minimal left pleural effusion is decreased. No pneumothorax. MEDIASTINUM: Unremarkable. CARDIAC SILHOUETTE: Not enlarged. Vascular stent. BONES AND SOFT TISSUES: No acute abnormalities. RAD/Chest 1 View (Portable) IMPRESSION: Increased right pleural effusion and basilar atelectasis/consolidation. Electronically Signed: Brenda Mart MD at 7:10 EST ,
[2022-05-26 07:03] LABS: Absolute Lymphocyte Count 38.51 X10^3/uL (0.83-4.51); Basophil# 0.18 X10^3/uL; Basophil% 0.4 % (0-1); Eosinophil# 0.72 X10^3/uL; Eosinophils% 1.5 % (0-5); Hematocrit 29.6 % (37-47); Hemoglobin 8.9 g/dL (12.0-15.0); Lymphocyte # 38.51 X10^3/ul (0.83-4.51); Mean Corp Hgb Conc 30.1 g/dL (32-36); Mean Corpuscular Hgb 27.6 pg (27.0-32.0); Mean Corpuscular Volume 91.9 fL (81-99); Mean Platelet Vol. 9.7 fl (6.2-12.0); Monocyte# 0.94 X10^3/uL; NRBC Flagged by Analyzer 0 % (0-5); Neutrophil # 6.97 X10^3/uL (2.7-7.7); Neutrophil % 14.7 % (47-70); POSITIVE COUNT YES; POSITIVE DIFFERENTIAL YES; POSITIVE MORPHOLOGY YES; Platelet Count 352 K/mm3 (150-450); RBC Distribution Width CV 16.2 % (11.6-14.6); RBC Distribution Width SD 53.1 fl (35.1-43.9); Red Blood Count 3.22 M/mm3 (4.2-5.4)
[2022-05-26 07:14] LABS: Differential Indicated SCAN CRITERIA MET; White Blood Count 47.5 K/mm3 (4.4-11.0)
[2022-05-26 07:46] LABS: ALB/GLOB Ratio 0.6 RATIO (0.9-2.4); AST(SGOT) 24 U/L (15-37); Alanine Aminotransfer ALT/SGPT 10 U/L (13-56); Albumin, Serum 1.7 g/dL (3.2-5.0); Alkaline Phosphatase 55 U/L (45-117); Anion Gap 6 (5-15); BUN 19 mg/dL (7-18); BUN/Creat Ratio 16.5 RATIO (10-20); Calcium,Total 7.6 mg/dL (8.5-10.1); Chloride 100 mmol/L (98-107); Creatinine, Serum 1.15 mg/dL (0.55-1.02); EST Glomerular Filtration Rate 48 mL/min (>60); Est Glom Filt Rate - Afr Amer 58 mL/min (>60); Estimated Creatinine Clearance 34.36 ml/min; Globulin 2.9 g/dL (2.2-4.2); Glucose 90 mg/dL (74-106); Potassium 3.3 mmol/L (3.5-5.1); Protein, Total 4.6 g/dL (6.4-8.2); Sodium Level 135 mmol/L (136-145)
--- NOTE | 2022-05-26 07:50 | PN.HOSP_ITS ---
Reason for Visit Reason for Visit: Diagnoses Other disorders of plasma-protein metabolism, not elsewhere classified ( 3) Hypotension, unspecified (05/25/22) Pleural effusion, not elsewhere classified (05/25/22) Acute kidney failure, unspecified (05/25/22) Malignant ascites (05/25/22) Intra-abdominal and pelvic swelling, mass and lump, unspecified site (05/25/22) Subjective Subjective Still feels short of breath. Abdomen still feels flat. Objective Data Objective Data Vital Signs: Vital Signs Temp Pulse Resp BP Pulse Ox O2 Del Method O2 Flow Rate 36.9 C 54 L 16 99/64 94 Nasal Cannula 2 05/26/22 03:00 05/26/22 04:01 05/26/22 03:00 05/26/22 03:00 05/26/22 07:14 05/26/22 07:14 05/26/22 07:14 Oxygen Flow Rate (L/min) [4] 2 Oxygen Flow Rate (L/min) [3] 4 Oxygen Flow Rate (L/min) [2] 4 Oxygen Flow Rate (L/min) [1 ( 4 Initial Baseline)] Oxygen Flow Rate (L/min) 2 Oxygen Delivery Method [4] Nasal Cannula Oxygen Delivery Method [3] Nasal Cannula Oxygen Delivery Method [2] Nasal Cannula Oxygen Delivery Method [1 ( Nasal Cannula Initial Baseline)] Oxygen Delivery Method Nasal Cannula Weight: 57.7 kg Body Mass Index (BMI) 26.6 Intake & Output: Intake and Output for Last 24 Hours 05/24/22 05/25/22 05/26/22 23:59 23:59 23:59 Intake Total 450 / 450 550 / 550 Output Total 1750 / 1750 400 / 400 Balance -1750 / -1750 450 / 450 150 / 150 Lab / Micro Data Result Diagrams: 05/26/22 05:32 05/26/22 05:32 Labs: Laboratory Results - last 24 hr 05/24/22 13:00: Diff Path Review Reviewed 05/24/22 14:25: Fl Pathologist Comment Reviewed 05/25/22 04:40: Diff Path Review Reviewed 05/26/22 05:32: WBC 47.5 H*, RBC 3.22 L, Hgb 8.9 L, Hct 29.6 L, MCV 91.9, MCH 2 7.6, MCHC 30.1 L, RDW Std Deviation 53.1 H, RDW Coeff of Zack 16.2 H, Plt Count 352, MPV 9.7, Immature Gran % (Auto) 0.400, Neut % (Auto) 14.7 L, Lymph % (Auto) 81.0 H, [place] % (Auto) 2.0, Eos % (Auto) 1.5, Baso % (Auto) 0.4, Absolute Neuts (auto) 7.0, Absolute Lymphs (auto) 38.51 H, Nucleated RBC % 0 05/26/22 05:32: Sodium 135 L, Potassium 3.3 L, Chloride 100, Carbon Dioxide 29.0, Anion Gap 6, BUN 19 H, Creatinine 1.15 H, Estim Creat Clear Calc 34.36, Est GFR (MDRD) Af Amer 58 L, Est GFR (MDRD) Non-Af 48 L, BUN/Creatinine Ratio 16.5, Glucose 90, Calcium 7.6 L, Total Bilirubin 0.30, AST 24, ALT 10 L, Alkaline Phosphatase 55, Total Protein 4.6 L, Albumin 1.7 L, Globulin 2.9, Albumin/Globulin Ratio 0.6 L Radiography Diagnostic Testing: Radiology Impression Chest X-Ray 05/26/22 05:55 IMPRESSION: Increased right pleural effusion and basilar atelectasis/consolidation. Electronically Signed: Brenda Mart MD at 7:10 EST , Physical Exam Const alert and no apparent distress Resp Resp Narrative: Diminished breath sounds in the right lower lobe with dullness to percussion. Cardio regular rate, regular rhythm, S1 normal heart sound and S2 normal heart sound GI GI Narrative: More distended today but soft. Extremity normal to inspection Assessment & Plan Assessment/Plan (1) Bilateral pleural effusion: PLAN: R>L Appear exudative. Cannot rule out communication with ascites 05/25: S/P right sided thoracentesis w removal of 1.75L 05/26: Repeat chest x-ray shows reaccumulation of the pleural effusion. Discussed with patient. Recommend patient have a thoracentesis. That be performed on the unless becomes cutely urgent in the interim. (2) Malignant ascites: PLAN: suspected 2/2 pelvic mass hold off on paracentesis for now as abdomen appear soft. furosemide Abdomen appears more distended. Patient may require repeat paracentesis. (3) Hypoalbuminemia: PLAN: Albumin 1.5. Complicates pleural effusion and ascites Will give albumin again (4) Hypotension: PLAN: Replace albumin. Start midodrine (5) Pelvic mass: PLAN: had biopsy last week. Reviewed on MyChart that the final pathology is st ill pending. This was the patient's daughter who was able to pull that up. 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 Not further identified beyond that. follow up with Dr. Mar Tentative plan for neoadjuvant chemotherapy, then surgery (6) RINA (acute kidney injury): PLAN: Resolved RINA on CKD stage IIIb most likely due to recurrent paracentesis: BUN/creatinine 23/1.61. Last BUN/creatinine 17/1.13 on 05/20/2022 with estimated creatinine 132 mL/min. PLAN: Plan Chronic conditions: * Chronic lymphocytic leukemia oncologist: She follows at the [facility]. She has chronically elevated WBC count. WBC 62,000, H&H 10/34%, platelet count 396,000. Mild chronic normocytic normochromic anemia * Aortic stenosis/AI status post TAVR in November 2021: Last echo in January 2020 to include in clinic. EF 65%. RV normal in size and systolic function. RA moderately dilated. Status post TAVR, portico prosthetic AV size #25. Mild 1+ AR. Mild MR and TR. She had right and left cardiac cath by Dr. Puri in September 2021 reported right heart pressure normal, no intracardiac shunting. Mid LAD 25% otherwise angiographically normal coronary arteries. ALC 52,000 * Essential hypertension-BP in ED is low therefore hold antihypertensive medication. * Hyperlipidemia-patient is on atorvastatin VTE prophylaxis: SCDs. Case discussed with the patient's daughter at bedside. Review through [facility], recent results, surgical notes. Charges/Coding Visit Charges Inpatient E&M: 44946 Subs Hosp L3
[2022-05-26] MEDS: Midodrine HCl 5 MG Tablet 10 MG PO ×3 (08:22→17:09)
[2022-05-26] MEDS: Potassium Chloride Oral Tablet 10 MEQ PO (08:22)
[2022-05-26 08:40] LABS: Anisocytosis 1+; Hypochromasia 1+; Poikilocytosis 1+; Polychromasia RARE; Tear Drop Cell RARE
[2022-05-26 08:41] LABS: Burr Cells 1+; Ovalocyte 1+; Platelet Estimate ADEQUATE (ADEQ)
[2022-05-26] MEDS: Aspirin E.C. 81 MG Tablet PO (10:42)
[2022-05-26] MEDS: Escitalopram Oxalate 10 MG Tablet 5 MG PO (10:43)
[2022-05-26] MEDS: guaiFENesin/D-Methorphan TAB.SR.12H 2 TABLET PO ×2 (10:44→20:40)
[2022-05-26] MEDS: Furosemide 40 MG Tablet PO ×2 (10:46→17:51)
[2022-05-26] MEDS: Enoxaparin 40 MG/0.4 ML Syringe SC (12:15)
[2022-05-26] MEDS: Spironolactone 25 MG Tablet PO (16:58)
[2022-05-26] MEDS: 0.9% Saline Lock 10 ML Syringe IV ×2 (16:59→17:51)
[2022-05-26] MEDS: Albumin Human 25% (50 mL) 12.5 GM/50 ML IV.SOLN IV (16:59)
[2022-05-26] MEDS: Ferrous Sulfate 325 MG Tablet PO (17:02)
[2022-05-26] MEDS: traZODone 50 MG Tablet 25 MG PO (20:39)
[2022-05-27] VITALS (7 sets, daily range): BP systolic 105–163; BP diastolic 52–60; PULSE 52–64; RESP 18–20; TEMP 36.8–37; O2SAT 88–96; BMI 24.5
[2022-05-27 05:58] LABS: Absolute Neutrophil Count 7.2 X10^3/uL (2.0-7.7); Basophil# 0.13 X10^3/uL; Basophil% 0.3 % (0-1); Eosinophil# 0.56 X10^3/uL; Eosinophils% 1.2 % (0-5); Hematocrit 29.6 % (37-47); Hemoglobin 8.9 g/dL (12.0-15.0); Lymphocyte % 80.3 % (19-41); Mean Corp Hgb Conc 30.1 g/dL (32-36); Mean Corpuscular Hgb 27.6 pg (27.0-32.0); Mean Corpuscular Volume 91.6 fL (81-99); Mean Platelet Vol. 9.5 fl (6.2-12.0); Monocyte# 0.97 X10^3/uL; Monocyte% 2.1 % (0-10); NRBC Flagged by Analyzer 0 % (0-5); Neutrophil # 7.22 X10^3/uL (2.7-7.7); Neutrophil % 15.7 % (47-70); POSITIVE COUNT YES; POSITIVE DIFFERENTIAL YES; POSITIVE MORPHOLOGY YES; Platelet Count 376 K/mm3 (150-450); RBC Distribution Width CV 16.4 % (11.6-14.6); RBC Distribution Width SD 53.7 fl (35.1-43.9); Red Blood Count 3.23 M/mm3 (4.2-5.4)
[2022-05-27 06:02] LABS: Differential Indicated SCAN CRITERIA MET
[2022-05-27 06:03] LABS: White Blood Count 45.9 K/mm3 (4.4-11.0)
[2022-05-27 06:20] LABS: Differential Comment SCANNED; Smudge Cells 2+
[2022-05-27 06:36] LABS: Anion Gap 7 (5-15); BUN 20 mg/dL (7-18); BUN/Creat Ratio 18.2 RATIO (10-20); Calcium,Total 7.7 mg/dL (8.5-10.1); Chloride 99 mmol/L (98-107); EST Glomerular Filtration Rate 50 mL/min (>60); Est Glom Filt Rate - Afr Amer 61 mL/min (>60); Estimated Creatinine Clearance 33.24 ml/min; Glucose 98 mg/dL (74-106); Potassium 3.6 mmol/L (3.5-5.1); Sodium Level 135 mmol/L (136-145)
--- NOTE | 2022-05-27 07:22 | PN.HOSP_ITS ---
Reason for Visit Reason for Visit: Diagnoses Other disorders of plasma-protein metabolism, not elsewhere classified ( 3) Hypotension, unspecified (05/25/22) Pleural effusion, not elsewhere classified (05/25/22) Acute kidney failure, unspecified (05/25/22) Malignant ascites (05/25/22) Intra-abdominal and pelvic swelling, mass and lump, unspecified site (05/25/22) Objective Data Objective Data Vital Signs: Vital Signs Temp Pulse Resp BP Pulse Ox O2 Del Method O2 Flow Rate 36.9 C 56 L 18 106/52 L 93 Nasal Cannula 2.5 05/27/22 02:06 05/27/22 02:06 05/27/22 02:06 05/27/22 02:06 05/27/22 03:53 05/27/22 03:53 05/27/22 03:53 Oxygen Flow Rate (L/min) [4] 2 Oxygen Flow Rate (L/min) [3] 4 Oxygen Flow Rate (L/min) [2] 4 Oxygen Flow Rate (L/min) [1 ( 4 Initial Baseline)] Oxygen Flow Rate (L/min) 2.5 Oxygen Delivery Method [4] Nasal Cannula Oxygen Delivery Method [3] Nasal Cannula Oxygen Delivery Method [2] Nasal Cannula Oxygen Delivery Method [1 ( Nasal Cannula Initial Baseline)] Oxygen Delivery Method Nasal Cannula Weight: 53.4 kg Body Mass Index (BMI) 24.5 Intake & Output: Intake and Output for Last 24 Hours 05/25/22 05/26/22 05/27/22 23:59 23:59 23:59 Intake Total 450 / 450 1250 / 1250 Output Total 400 / 400 Balance 450 / 450 850 / 850 Lab / Micro Data Result Diagrams: 05/27/22 04:53 05/27/22 04:53 Labs: Laboratory Results - last 24 hr 05/26/22 05:32: Diff Path Review July, Platelet Estimate ADEQUATE, Polychromasia RARE, Hypochromasia 1+, Poikilocytosis 1+, Anisocytosis 1+, Tear Drop Cells RARE, Ovalocytes 1+, Crystal Cells 1+ 05/26/22 05:32: Sodium 135 L, Potassium 3.3 L, Chloride 100, Carbon Dioxide 29 .0, Anion Gap 6, BUN 19 H, Creatinine 1.15 H, Estim Creat Clear Calc 34.36, Est GFR (MDRD) Af Amer 58 L, Est GFR (MDRD) Non-Af 48 L, BUN/Creatinine Ratio 16.5, Glucose 90, Calcium 7.6 L, Total Bilirubin 0.30, AST 24, ALT 10 L, Alkaline Phosphatase 55, Total Protein 4.6 L, Albumin 1.7 L, Globulin 2.9, Al bumin/Globulin Ratio 0.6 L 05/27/22 04:53: WBC 45.9 H*, RBC 3.23 L, Hgb 8.9 L, Hct 29.6 L, MCV 91.6, MCH 27.6, MCHC 30.1 L, RDW Std Deviation 53.7 H, RDW Coeff of Zack 16.4 H, Plt Count 376, MPV 9.5, Immature Gran % (Auto) 0.400, Neut % (Auto) 15.7 L, Lymph % (Auto) 80.3 H, [place] % (Auto) 2.1, Eos % (Auto) 1.2, Baso % (Auto) 0.3, Absolute Neuts (auto) 7.2, Absolute Lymphs (auto) 36.80 H, Nucleated RBC % 0, Differential Comment SCANNED, Diff Path Review May foll, Smudge Cells 2+ 05/27/22 04:53: Sodium 135 L, Potassium 3.6, Chloride 99, Carbon Dioxide 29.0, Anion Gap 7, BUN 20 H, Creatinine 1.10 H, Estim Creat Clear Calc 33.24, Est GFR (MDRD) Af Amer 61, Est GFR (MDRD) Non-Af 50 L, BUN/Creatinine Ratio 18.2, Glucose 98, Calcium 7.7 L Assessment & Plan Assessment/Plan (1) Bilateral pleural effusion: PLAN: R>L Appear exudative. Cannot rule out communication with ascites 05/25: S/P right sided thoracentesis w removal of 1.75L 05/26: Repeat chest x-ray shows reaccumulation of the pleural effusion. Discussed with patient. Recommend patient have a thoracentesis. That be performed on the unless becomes cutely urgent in the interim. (2) Malignant ascites: PLAN: suspected 2/2 pelvic mass hold off on paracentesis for now as abdomen appear soft. furosemide Abdomen appears more distended. Patient may require repeat paracentesis. (3) Hypoalbuminemia: PLAN: Albumin 1.5. Complicates pleural effusion and ascites Will give albumin again (4) Hypotension: PLAN: Replace albumin. Start midodrine (5) Pelvic mass: PLAN: had biopsy last week. Reviewed on MyChart that the final pathology is still pending. This was the patient's daughter who was able to pull that up. 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 Not further identified beyond that. follow up with Dr. Mar Tentative plan for neoadjuvant chemotherapy, then surgery (6) RINA (acute kidney injury): PLAN: Resolved RINA on CKD stage IIIb most likely due to recurrent paracentesis: BUN/creatinine 23/1.61. Last BUN/creatinine 17/1.13 on 05/20/2022 with estimated creatinine 132 mL/min. PLAN: Plan Chronic conditions: * Chronic lymphocytic leukemia oncologist: She follows at the [facility]. She has chronically elevated WBC count. WBC 62,000, H&H 10/34%, platelet count 396,000. Mild chronic normocytic normochromic anemia * Aortic stenosis/AI status post TAVR in November 2021: Last echo in January 2020 to include in clinic. EF 65%. RV normal in size and systolic function. RA moderately dilated. Status post TAVR, portico prosthetic AV size #25. Mild 1+ AR. Mild MR and TR. She had right and left cardiac cath by Dr. Puri in September 2021 reported right heart pressure normal, no intracardiac shunting. Mid LAD 25% otherwise angiographically normal coronary arteries. ALC 52,000 * Essential hypertension-BP in ED is low therefore hold antihypertensive medi cation. * Hyperlipidemia-patient is on atorvastatin VTE prophylaxis: SCDs.
[2022-05-27] MEDS: guaiFENesin/D-Methorphan TAB.SR.12H 2 TABLET PO ×2 (08:14→20:48)
[2022-05-27] MEDS: Enoxaparin 40 MG/0.4 ML Syringe SC (08:14)
[2022-05-27] MEDS: Escitalopram Oxalate 10 MG Tablet 5 MG PO (08:15)
[2022-05-27] MEDS: Spironolactone 25 MG Tablet PO (08:15)
[2022-05-27] MEDS: Potassium Chloride Oral Tablet 10 MEQ PO (08:17)
[2022-05-27] MEDS: Midodrine HCl 5 MG Tablet 10 MG PO ×3 (08:17→18:33)
[2022-05-27] MEDS: Aspirin E.C. 81 MG Tablet PO (08:17)
[2022-05-27] MEDS: Furosemide 40 MG Tablet PO ×2 (08:17→18:34)
[2022-05-27] MEDS: Senna/Docusate Sodium 1 Tablet 2 TABLET PO (08:24)
--- NOTE | 2022-05-27 11:55 | PN.HOSP_ITS ---
Reason for Visit Reason for Visit: Diagnoses Other disorders of plasma-protein metabolism, not elsewhere classified ( 3) Hypotension, unspecified (05/25/22) Pleural effusion, not elsewhere classified (05/25/22) Acute kidney failure, unspecified (05/25/22) Malignant ascites (05/25/22) Intra-abdominal and pelvic swelling, mass and lump, unspecified site (05/25/22) Subjective Subjective Some dyspnea last night. Breathing okay currently. Objective Data Objective Data Vital Signs: Vital Signs Temp Pulse Resp BP Pulse Ox O2 Del Method O2 Flow Rate 36.8 C 64 20 H 105/55 L 95 Nasal Cannula 2.5 05/27/22 08:05 05/27/22 08:05 05/27/22 08:05 05/27/22 08:05 05/27/22 08:05 05/27/22 08:05 05/27/22 08:05 Oxygen Flow Rate (L/min) [4] 2 Oxygen Flow Rate (L/min) [3] 4 Oxygen Flow Rate (L/min) [2] 4 Oxygen Flow Rate (L/min) [1 ( 4 Initial Baseline)] Oxygen Flow Rate (L/min) 2.5 Oxygen Delivery Method [4] Nasal Cannula Oxygen Delivery Method [3] Nasal Cannula Oxygen Delivery Method [2] Nasal Cannula Oxygen Delivery Method [1 ( Nasal Cannula Initial Baseline)] Oxygen Delivery Method Nasal Cannula Weight: 53.4 kg Body Mass Index (BMI) 24.5 Intake & Output: Intake and Output for Last 24 Hours 05/25/22 05/26/22 05/27/22 23:59 23:59 23:59 Intake Total 450 / 450 1250 / 1250 Output Total 400 / 400 Balance 450 / 450 850 / 850 Lab / Micro Data Result Diagrams: 05/27/22 04:53 05/27/22 04:53 Labs: Laboratory Results - last 24 hr 05/27/22 04:53: WBC 45.9 H*, RBC 3.23 L, Hgb 8.9 L, Hct 29.6 L, MCV 91.6, MCH 27.6, MCHC 30.1 L, RDW Std Deviation 53.7 H, RDW Coeff of Zack 16.4 H, Plt Count 376, MPV 9.5, Immature Gran % (Auto) 0.400, Neut % (Auto) 15.7 L, Lymph % (Auto) 80.3 H, [place] % (Auto) 2.1, Eos % (Auto) 1.2, Baso % (Auto) 0.3, Absolute Neuts (auto) 7.2, Absolute Lymphs (auto) 36.80 H, Nucleated RBC % 0, Differential Comment SCANNED, Diff Path Review May foll, Smudge Cells 2+ 05/27/22 04:53: Sodium 135 L, Potassium 3.6, Chloride 99, Carbon Dioxide 29.0, Anion Gap 7, BUN 20 H, Creatinine 1.10 H, Estim Creat Clear Calc 33.24, Est GFR (MDRD) Af Amer 61, Est GFR (MDRD) Non-Af 50 L, BUN/Creatinine Ratio 18.2, Glucose 98, Calcium 7.7 L Physical Exam Const alert and no apparent distress HEENT head/scalp atraumatic and moist oral mucous membranes Resp normal respiratory effort and no retractions Resp Narrative: Diminished in right mid and lower lobes with dullness to percussion. Cardio regular rate, regular rhythm, S1 normal heart sound and S2 normal heart sound GI normal to inspection, nondistended, normoactive bowel sounds, soft to palpation, non-tender and non-distended Neuro Sensorium / Orientation: awake and alert Assessment & Plan Assessment/Plan (1) Bilateral pleural effusion: PLAN: R>L Appear exudative. Cannot rule out communication with ascites 05/25: S/P right sided thoracentesis w removal of 1.75L 05/26: Repeat chest x-ray shows reaccumulation of the pleural effusion. Discussed with patient. Recommend patient have a thoracentesis. That be performed on the unless becomes cutely urgent in the interim. (2) Malignant ascites: PLAN: suspected 2/2 pelvic mass hold off on paracentesis for now as abdomen appear soft. furosemide Abdomen appears more distended. Patient may require repeat paracentesis. (3) Hypoalbuminemia: PLAN: Albumin 1.5. Complicates pleural effusion and ascites Will give albumin again (4) Hypotension: PLAN: Replace albumin. Start midodrine (5) Pelvic mass: PLAN: had biopsy last week. Reviewed on MyChart that the final pathology is still pending. This was the patient's daughter who was able to pull that up. 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 Not further identified beyond that. Did inform the patient about this finding on the surgical report which was not known to her. follow up with Dr. Mar Tentative plan for neoadjuvant chemotherapy, then surgery (6) RINA (acute kidney injury): PLAN: Resolved RINA on CKD stage IIIb most likely due to recurrent paracentesis: BUN/creatinine 23/1.61. Last BUN/creatinine 17/1.13 on 05/20/2022 with estimated creatinine 132 mL/min. PLAN: Plan Chronic conditions: * Chronic lymphocytic leukemia oncologist: She follows at the [facility]. She has chronically elevated WBC count. WBC 62,000, H&H 10/34%, platelet count 396,000. Mild chronic normocytic normochromic anemia * Aortic stenosis/AI status post TAVR in November 2021: Last echo in January 2020 to include in clinic. EF 65%. RV normal in size and systolic function. RA moderately dilated. Status post TAVR, portico prosthetic AV size #25. Mild 1+ AR. Mild MR and TR. She had right and left cardiac cath by Dr. Puri in September 2021 reported right heart pressure normal, no intracardiac shunting. Mid LAD 25% otherwise angiographically normal coronary arteries. ALC 52,000 * Essential hypertension-BP in ED is low therefore hold antihypertensive medication. * Hyperlipidemia-patient is on atorvastatin VTE prophylaxis: SCDs. Charges/Coding Visit Charges Inpatient E&M: 69295 Subs Hosp L2
[2022-05-27] MEDS: 0.9% Saline Lock 10 ML Syringe IV (15:33)
[2022-05-27] MEDS: Ondansetron 4 MG/2 ML Vial IV (15:33)
[2022-05-27] MEDS: Acetaminophen 325 MG Tablet 650 MG PO (18:41)
[2022-05-27] MEDS: traZODone 50 MG Tablet 25 MG PO (20:47)
[2022-05-28] VITALS (16 sets, daily range): BP systolic 93–145; BP diastolic 41–76; PULSE 50–105; RESP 12–22; TEMP 36.6–37.1; O2SAT 87–98; BMI 24.5
[2022-05-28 05:45] LABS: Absolute Lymphocyte Count 46.11 X10^3/uL (0.83-4.51); Absolute Neutrophil Count 8.1 X10^3/uL (2.0-7.7); Basophil# 0.24 X10^3/uL; Basophil% 0.4 % (0-1); Eosinophil# 0.68 X10^3/uL; Eosinophils% 1.2 % (0-5); Hematocrit 31.1 % (37-47); Hemoglobin 9.5 g/dL (12.0-15.0); Lymphocyte # 46.11 X10^3/ul (0.83-4.51); Mean Corp Hgb Conc 30.5 g/dL (32-36); Mean Corpuscular Hgb 27.9 pg (27.0-32.0); Mean Corpuscular Volume 91.2 fL (81-99); Mean Platelet Vol. 9.5 fl (6.2-12.0); Monocyte# 0.86 X10^3/uL; Monocyte% 1.5 % (0-10); NRBC Flagged by Analyzer 0 % (0-5); Neutrophil # 8.11 X10^3/uL (2.7-7.7); Neutrophil % 14.5 % (47-70); POSITIVE COUNT YES; POSITIVE DIFFERENTIAL YES; POSITIVE MORPHOLOGY YES; Platelet Count 439 K/mm3 (150-450); RBC Distribution Width CV 16.3 % (11.6-14.6); RBC Distribution Width SD 53.1 fl (35.1-43.9); Red Blood Count 3.41 M/mm3 (4.2-5.4)
[2022-05-28 06:04] LABS: International Normalized Ratio 1.1; Prothrombin Time (Protime)PT. 13.6 SECONDS (11.7-14.9)
[2022-05-28 06:11] LABS: Differential Indicated SCAN CRITERIA MET
[2022-05-28 06:12] LABS: White Blood Count 56.2 K/mm3 (4.4-11.0)
[2022-05-28 06:28] LABS: Anion Gap 10 (5-15); BUN 20 mg/dL (7-18); BUN/Creat Ratio 16.8 RATIO (10-20); Calcium,Total 8.2 mg/dL (8.5-10.1); Chloride 99 mmol/L (98-107); Creatinine, Serum 1.19 mg/dL (0.55-1.02); EST Glomerular Filtration Rate 46 mL/min (>60); Est Glom Filt Rate - Afr Amer 56 mL/min (>60); Estimated Creatinine Clearance 30.73 ml/min; Glucose 106 mg/dL (74-106); Potassium 3.7 mmol/L (3.5-5.1); Sodium Level 137 mmol/L (136-145)
[2022-05-28 06:42] LABS: Differential Comment SCANNED; Smudge Cells 2+
[2022-05-28] MEDS: guaiFENesin/D-Methorphan TAB.SR.12H 2 TABLET PO ×2 (07:33→21:04)
[2022-05-28] MEDS: Midodrine HCl 5 MG Tablet 10 MG PO ×3 (07:34→17:56)
[2022-05-28] MEDS: Potassium Chloride Oral Tablet 10 MEQ PO (07:34)
--- NOTE | 2022-05-28 08:21 | PN.HOSP_ITS ---
Reason for Visit Reason for Visit: Diagnoses Other disorders of plasma-protein metabolism, not elsewhere classified ( 3) Hypotension, unspecified (05/25/22) Pleural effusion, not elsewhere classified (05/25/22) Acute kidney failure, unspecified (05/25/22) Malignant ascites (05/25/22) Intra-abdominal and pelvic swelling, mass and lump, unspecified site (05/25/22) Subjective Subjective Went down for Thora centesis today with 2 L of blood-tinged fluid off. Was up ambulating the halls after exam did feel slightly lightheaded and had to sit down, had a pulse ox of 87 on room air and improved with 2 to 3 L. Reports poor p.o. intake which happens when she has worsening abdominal ascites and had some nausea yesterday, does report having bowel movements. Feels her abdomen is getting more distended. Denies worsening of breathing, no significant cough Objective Data Objective Data Vital Signs: Vital Signs Temp Pulse Resp BP Pulse Ox O2 Del Method O2 Flow Rate 97.8 F 60 20 H 117/69 94 Nasal Cannula 3 05/28/22 08:00 05/28/22 08:05 05/28/22 08:05 05/28/22 04:34 05/28/22 08:05 05/28/22 08:05 05/28/22 08:05 Oxygen Flow Rate (L/min) [4] 2 Oxygen Flow Rate (L/min) [3] 4 Oxygen Flow Rate (L/min) [2] 4 Oxygen Flow Rate (L/min) [1 ( 4 Initial Baseline)] Oxygen Flow Rate (L/min) 3 Oxygen Delivery Method [4] Nasal Cannula Oxygen Delivery Method [3] Nasal Cannula Oxygen Delivery Method [2] Nasal Cannula Oxygen Delivery Method [1 ( Nasal Cannula Initial Baseline)] Oxygen Delivery Method Nasal Cannula Weight: 53.4 kg Body Mass Index (BMI) 24.5 Intake & Output: Intake and Output for Last 24 Hours 05/26/22 05/27/22 05/28/22 23:59 23:59 23:59 Intake Total 1250 / 1250 360 / 360 Output Total 400 / 400 Balance 850 / 850 360 / 360 Lab / Micro Data Result Diagrams: 05/28/22 04:50 05/28/22 04:50 Labs: Laboratory Results - last 24 hr 05/28/22 04:50: WBC 56.2 H*, RBC 3.41 L, Hgb 9.5 L, Hct 31.1 L, MCV 91.2, MCH 27.9, MCHC 30.5 L, RDW Std Deviation 53.1 H, RDW Coeff of Zack 16.3 H, Plt Count 439, MPV 9.5, Immature Gran % (Auto) 0.400, Neut % (Auto) 14.5 L, Lymph % (Auto) 82.0 H, [place] % (Auto) 1.5, Eos % (Auto) 1.2, Baso % (Auto) 0.4, Absolute Neuts (auto) 8.1 H, Absolute Lymphs (auto) 46.11 H, Nucleated RBC % 0, Differential Comment SCANNED, Diff Path Review May marc, Smudge Cells 2+ 05/28/22 04:50: PT 13.6, INR 1.1 05/28/22 04:50: Sodium 137, Potassium 3.7, Chloride 99, Carbon Dioxide 28.0, Anion Gap 10, BUN 20 H, Creatinine 1.19 H, Estim Creat Clear Calc 30.73, Est GFR (MDRD) Af Amer 56 L, Est GFR (MDRD) Non-Af 46 L, BUN/Creatinine Ratio 16.8, Glucose 106, Calcium 8.2 L Physical Exam Narrative General: Alert, oriented, appears tired HEENT: Atraumatic, normocephalic Eyes: Anicteric, normal conjunctiva, extraocular movements grossly intact Neck: Supple Respiratory: Slightly diminished in right lower lobe, normal respiratory effort Cardiovascular: Regular rate and rhythm GI: Soft, no significant tenderness, is full but soft Extremities: Trace edema Musculoskeletal: Moving all extremities Neuro: No overt focal neurological deficits Skin: No rashes appreciated Psych: Cooperative Assessment & Plan Assessment/Plan (1) Bilateral pleural effusion: PLAN: Plan 81-year-old with history of CLL, TAVR November 2021, pelvic mass with recent laparoscopic biopsy at [facility] 05/16, hyper tension, CKD stage IIIb presented 05/24 with shortness of breath and cough for 6 days. She had been seen in her PCPs office on 05/19 and given Zithromax and guaifenesin and was sent home, she had been able to ambulate and maintain pulse ox at 93% on room air. Due to worsening symptoms she was sent to ED. She had an O2 sat of 88% on room air, exertional dyspnea, BP 100/65, chest x-ray with a large right pleural effusion and she had ultrasound-guided thoracentesis on 05/24 with a 1700 mL mildly bloody fluid. She also had a paracentesis done during laparoscopic biopsy and requires weekly paracenteses and already had 3 in the month of May 2022. Additional history of CLL with last admission April 2022. #Shortness of breath with mild hypoxia likely secondary to bilateral pleural effusions right greater than left -On admission chest x-ray shows two third of right chest cavity filled with pleural effusion and she had a ultrasound-guided thoracentesis by Dr. Rojsa 05/24 with 1700 cc of blood-tinged fluid drained. She is on 1 to 2 L of O2 and guaifenesin and incentive spirometry were continued. -Concern for exudative effusion -Thoracentesis to be performed 05/28 with 2L of serosanguinous fluid out -Did require 2 L of O2 to maintain an O2 sat of 88% on 05/27, saturations improved on room air 05/28 but still required O2 with ambulation -We will repeat a.m. chest x-ray #Ascites most likely malignant -status post 3 paracentesis in May 2022 -Furosemide resumed and spironolactone started -Has pelvic mass that had biopsy last week and pathology is pending. 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 and some nausea and concern for fluid reaccumulation. Will order abdominal paracentesis. Paracentesis will give further albumin and can likely be discharged home the next morning if stable #Hypoalbuminemia -Albumin 1.5 -This complicates pleural effusion and ascites and has received albumin, received albumin again today #Hypotension -Hold antihypertensives, albumin given, midodrine started #Aortic stenosis/AI status post TAVR November 2021 -Last echo January 2020 EF 65% -Had left cardiac cath by Dr. Puri September 2021 with normal right heart pressures and no intracardiac shunting, mid LAD 25% with otherwise angiographically normal coronary arteries #RINA on CKD stage IIIb -On admission creatinine 1.61 with her previous at 1.13 on 05/20, her Lasix and lisinopril were held on admission -RINA resolved and furosemide resumed #CLL -Follows with [facility] #DVT ppx: miesha subq Piedad Hester MD Time spent in the patient's overall evaluation,decision-making process, review of diagnostic data, adjustment of management, discussion with other providers, nursing nursing and ancillary staff involved in patient's care documentation, 45 Minutes Charges/Coding Visit Charges Inpatient E&M: 08880 Subs Hosp L2
[2022-05-28] MEDS: Spironolactone 25 MG Tablet PO (11:06)
[2022-05-28] MEDS: Aspirin E.C. 81 MG Tablet PO (11:06)
[2022-05-28] MEDS: Enoxaparin 40 MG/0.4 ML Syringe SC (11:07)
[2022-05-28] MEDS: Furosemide 40 MG Tablet PO ×2 (11:07→17:55)
[2022-05-28] MEDS: Escitalopram Oxalate 10 MG Tablet 5 MG PO (11:09)
--- NOTE | 2022-05-28 11:57 | US_ITS ---
PROCEDURE: ULTRASOUND GUIDED THORACENTESIS. DATE: 05/28/2022. INDICATION: Female, 81 years old. Right pleural effusion PHYSICIAN: Mahad Rojas M.D. PROCEDURE: The risks, benefits, and alternatives to the procedure were explained to the patient. The specific risks of bleeding, infection, and pneumothorax requiring chest tube insertion were discussed and accepted. Written informed consent was obtained. Ultrasonographic evaluation of the right lower pleural space was carried out. An adequate pocket was identified. The patient was placed in the sitting, upright position. The overlying skin was prepped and draped in sterile fashion. 1% lidocaine was administered subcutaneously for local anesthesia. Under ultrasound guidance, a 5 Azeri thoracentesis needle/catheter system was advanced into the right posterior lower pleural fluid collection. Approximately 2060 mL of blood tinged fluid was drained. The catheter was removed, and a sterile dressing was applied. The patient tolerated the procedure well. A chest x-ray was ordered. US/Thoracentesis W US IMPRESSION: Ultrasound-guided right thoracentesis. Electronically Signed: Mahad Rojas MD at 14:01 EST ,
[2022-05-28] MEDS: Lidocaine 2% (20 ml mdv) 20 ML Vial INFILT (12:45)
--- NOTE | 2022-05-28 12:50 | RAD_ITS ---
STUDY: X-RAY CHEST REASON FOR EXAM: Female, 81 years old. Post thora TECHNIQUE: AP inspiration and expiration views. COMPARISON: Comparison is made with prior study dated 05/26/2022. FINDINGS: The patient is status post right thoracentesis. Mild residual pleural parenchymal changes are seen at the right lung base. No evidence of pneumothorax. RAD/Chest Insp/Exp 2 View IMPRESSION: No evidence of pneumothorax following the right thoracentesis. Mild degree of residual pleural parenchymal changes at the right lung base. Electronically Signed: Mahad Rojas MD at 13:14 EST ,
--- NOTE | 2022-05-28 14:04 | CASEMGMT ---
Social Work? SW in to pt room to verify advance directives. Pt confirmed has AD and named?Martina Johnson, daughter , as agent. SW made pt aware documents are not on file and if pt would like to bring these documents in the documents can be dropped off at the Medical Records department. Pt voiced understanding.?? KAI Gomez?
[2022-05-28 14:16] LABS: Pathologist Review Reviewed
[2022-05-28 14:17] LABS: Pathologist Review Reviewed
[2022-05-28 14:17] LABS: Pathologist Review Reviewed
--- NOTE | 2022-05-28 17:52 | NURSING ---
albumin not on unit for pt adm
[2022-05-28] MEDS: Ferrous Sulfate 325 MG Tablet PO (17:56)
--- NOTE | 2022-05-28 19:42 | NURSING ---
albumin still not on unit for pt administration
[2022-05-28] MEDS: Albumin Human 25% (50 mL) 12.5 GM/50 ML IV.SOLN IV (20:58)
[2022-05-28] MEDS: 0.9% Saline Lock 10 ML Syringe IV (21:03)
[2022-05-28] MEDS: traZODone 50 MG Tablet 25 MG PO (21:05)
[2022-05-29] VITALS (7 sets, daily range): BP systolic 84–134; BP diastolic 42–64; PULSE 53–69; RESP 18–22; TEMP 37.1–37.3; O2SAT 95–97
[2022-05-29] MEDS: Acetaminophen 325 MG Tablet 650 MG PO (02:47)
[2022-05-29] MEDS: 0.9% Saline Lock 10 ML Syringe IV ×2 (02:49→12:57)
--- NOTE | 2022-05-29 02:56 | EKG12_ITS ---
Test Reason : CP Blood Pressure : / mmHG Vent. Rate : 055 BPM Atrial Rate : 055 BPM P-R Int : 168 ms QRS Dur : 090 ms QT Int : 504 ms P-R-T Axes : 070 054 075 degrees QTc Int : 482 ms Sinus bradycardia Otherwise normal ECG Confirmed by ISAIAH ALONZO, RUDDY ([id number]), editor sound RUSTY GABRIEL ([id number]) on 05/30/2022 1:28:33 PM Referred By: Confirmed By:RUDDY COLON MD
--- NOTE | 2022-05-29 05:55 | RAD_ITS ---
INDICATION: effusion EXAMINATION/TECHNIQUE: X-RAY - XR Chest 1 View COMPARISON: 05/28/2022 FINDINGS: LINES/DEVICES: None. LUNGS: There is large right pleural effusion has increased in size since the previous study. There is compressive atelectasis in the right lung. MEDIASTINUM AND CARDIOVASCULAR STRUCTURES: Cardiac silhouette not enlarged. Central airways and mediastinal contour are unremarkable. BONES AND SOFT TISSUES: Unremarkable. RAD/Chest 1 View (Portable) IMPRESSION: There is large right pleural effusion has increased in size since the previous study. There is compressive atelectasis in the right lung. Electronically Signed: Evgeny Goncalves MD at 7:08 EST ,
[2022-05-29 06:45] LABS: Absolute Lymphocyte Count 34.49 X10^3/uL (0.83-4.51); Absolute Neutrophil Count 6.6 X10^3/uL (2.0-7.7); Basophil# 0.11 X10^3/uL; Basophil% 0.3 % (0-1); Eosinophil# 0.53 X10^3/uL; Eosinophils% 1.2 % (0-5); Hematocrit 29.2 % (37-47); Hemoglobin 8.8 g/dL (12.0-15.0); Lymphocyte # 34.49 X10^3/ul (0.83-4.51); Lymphocyte % 80.6 % (19-41); Mean Corp Hgb Conc 30.1 g/dL (32-36); Mean Corpuscular Hgb 27.3 pg (27.0-32.0); Mean Corpuscular Volume 90.7 fL (81-99); Mean Platelet Vol. 9.4 fl (6.2-12.0); Monocyte% 2.1 % (0-10); NRBC Flagged by Analyzer 0 % (0-5); Neutrophil # 6.62 X10^3/uL (2.7-7.7); Neutrophil % 15.4 % (47-70); POSITIVE COUNT YES; POSITIVE DIFFERENTIAL YES; POSITIVE MORPHOLOGY YES; Platelet Count 367 K/mm3 (150-450); RBC Distribution Width CV 16.3 % (11.6-14.6); RBC Distribution Width SD 52.9 fl (35.1-43.9); Red Blood Count 3.22 M/mm3 (4.2-5.4)
[2022-05-29 06:54] LABS: Differential Indicated SCAN CRITERIA MET; White Blood Count 42.8 K/mm3 (4.4-11.0)
--- NOTE | 2022-05-29 07:00 | US_ITS ---
STUDY: ABDOMINAL ULTRASOUND - ascites survey. REASON FOR VISIT: Female, 81 years old recurrent abdominal ascites -- TECHNIQUE: Ultrasound evaluation of the 4 quadrants was performed with real-time and static jeffers-scale imaging. TECHNICAL QUALITY: Adequate. COMPARISON: None. FINDINGS: No significant amount of free fluid is seen. US/Abdomen Limited IMPRESSION: No significant amount of ascites. Paracentesis was not performed. Electronically Signed: Mahad Rojas MD at 11:18 EST ,
[2022-05-29 07:13] LABS: ALB/GLOB Ratio 0.7 RATIO (0.9-2.4); AST(SGOT) 23 U/L (15-37); Alanine Aminotransfer ALT/SGPT 13 U/L (13-56); Albumin, Serum 1.9 g/dL (3.2-5.0); Alkaline Phosphatase 50 U/L (45-117); Anion Gap 5 (5-15); BUN 24 mg/dL (7-18); BUN/Creat Ratio 19.7 RATIO (10-20); Chloride 98 mmol/L (98-107); Creatinine, Serum 1.22 mg/dL (0.55-1.02); EST Glomerular Filtration Rate 45 mL/min (>60); Est Glom Filt Rate - Afr Amer 54 mL/min (>60); Estimated Creatinine Clearance 29.97 ml/min; Globulin 2.8 g/dL (2.2-4.2); Glucose 98 mg/dL (74-106); Potassium 3.7 mmol/L (3.5-5.1); Protein, Total 4.7 g/dL (6.4-8.2); Sodium Level 134 mmol/L (136-145)
--- NOTE | 2022-05-29 08:03 | NURSING ---
Left floor via bed at this time to go to radiology for Paracentesis.
[2022-05-29 08:13] LABS: Differential Comment SCANNED; Hypochromasia 2+; Smudge Cells 3+
--- NOTE | 2022-05-29 08:26 | PCM.PN.HOSP ---
Reason for Visit Reason for Visit: Diagnoses Other disorders of plasma-protein metabolism, not elsewhere classified (05/25/22) Hypotension, unspecified (05/25/22) Pleural effusion, not elsewhere classified (05/25/22) Acute kidney failure, unspecified (05/25/22) Malignant ascites (05/25/22) Intra-abdominal and pelvic swelling, mass and lump, unspecified site (05/25/22) Subjective Subjective Reports having some lower abdominal soreness, does feel abdomen slightly more distended, ate slightly better last night but still poor appetite, breathing has improved Objective Data Objective Data Vital Signs: Vital Signs Temp Pulse Resp BP Pulse Ox O2 Del Method O2 Flow Rate 99.0 F 59 L 22 H 95/42 L 95 Nasal Cannula 2 05/29/22 02:35 05/29/22 02:35 05/29/22 02:35 05/29/22 02:35 05/29/22 02:35 05/29/22 07:51 05/29/22 07:51 Oxygen Flow Rate (L/min) [4] 2 Oxygen Flow Rate (L/min) [3] 4 Oxygen Flow Rate (L/min) [2] 4 Oxygen Flow Rate (L/min) [1 ( 4 Initial Baseline)] Oxygen Flow Rate (L/min) [At 2 REST with Oxygen] Oxygen Flow Rate (L/min) [ 3 AMBULATING with Oxygen #1] Oxygen Flow Rate (L/min) 2 Oxygen Delivery Method [4] Room Air Oxygen Delivery Method [3] Room Air Oxygen Delivery Method [2] Room Air Oxygen Delivery Method [1 ( Room Air Initial Baseline)] Oxygen Delivery Method Nasal Cannula Weight: 53.4 kg Body Mass Index (BMI) 24.5 Intake & Output: Intake and Output for Last 24 Hours 05/27/22 05/28/22 05/29/22 23:59 23:59 23:59 Intake Total 360 / 360 600 / 800 200 / 200 Output Total 4120 / 4120 Balance 360 / 360 -3520 / -3320 200 / 200 Lab / Micro Data Result Diagrams: 05/29/22 06:00 05/29/22 06:00 Labs: Laboratory Results - last 24 hr 05/26/22 05:32: Diff Path Review Reviewed 05/27/22 04:53: Diff Path Review Reviewed 05/28/22 04:50: Diff Path Review Reviewed 05/29/22 06:00: WBC 42.8 H*, RBC 3.22 L, Hgb 8.8 L, Hct 29.2 L, MCV 90.7, MCH 27.3, MCHC 30.1 L, RDW Std Deviation 52.9 H, RDW Coeff of Zack 16.3 H, Plt Count 367, MPV 9.4, Immature Gran % (Auto) 0.400, Neut % (Auto) 15.4 L, Lymph % (Auto) 80.6 H, Johnston % (Auto) 2.1, Eos % (Auto) 1.2, Baso % (Auto) 0.3, Absolute Neuts (auto) 6.6, Absolute Lymphs (auto) 34.49 H, Nucleated RBC % 0, Differential Comment SCANNED, Diff Path Review May foll, Smudge Cells 3+, Hypochromasia 2+ 05/29/22 06:00: Sodium 134 L, Potassium 3.7, Chloride 98, Carbon Dioxide 31.0, Anion Gap 5, BUN 24 H, Creatinine 1.22 H, Estim Creat Clear Calc 29.97, Est GFR (MDRD) Af Amer 54 L, Est GFR (MDRD) Non-Af 45 L, BUN/Creatinine Ratio 19.7, Glucose 98, Calcium 8.0 L, Total Bilirubin 0.30, AST 23, ALT 13, Alkaline Phosphatase 50, Total Protein 4.7 L, Albumin 1.9 L, Globulin 2.8, Albumin/Globulin Ratio 0.7 L Radiography Diagnostic Testing: Radiology Impression Thoracentesis Ultrasound 05/28/22 11:57 IMPRESSION: Ultrasound-guided right thoracentesis. Electronically Signed: Mahad Rojas MD at 14:01 EST , Chest X-Ray 05/28/22 12:50 IMPRESSION: No evidence of pneumothorax following the right thoracentesis. Mild degree of residual pleural parenchymal changes at the right lung base. Electronically Signed: Mahad Rojas MD at 13:14 EST , Chest X-Ray 05/29/22 05:55 IMPRESSION: There is large right pleural effusion has increased in size since the previous study. There is compressive atelectasis in the right lung. Electronically Signed: Evgeny Goncalves MD at 7:08 EST Reading Location ID and State: [facility] / [place] Tel , Service support , Physical Exam Narrative General: Alert, oriented, appears tired HEENT: Atraumatic, normocephalic Eyes: Anicteric, normal conjunctiva, extraocular movements grossly intact Neck: Supple Respiratory: Slightly diminished in right lower lobe, normal respiratory effort Cardiovascular: Regular rate and rhythm GI: Soft, slight tender in lower abdomen, is full but not firm Extremities: Trace edema Musculoskeletal: Moving all extremities Neuro: No overt focal neurological deficits Skin: No rashes appreciated Psych: Cooperative Assessment & Plan Assessment/Plan (1) Bilateral pleural effusion: PLAN: Plan 81-year-old with history of CLL, TAVR November 2021, pelvic mass with recent laparoscopic biopsy at [facility] 05/16, hyper tension, CKD stage IIIb presented 05/24 with shortness of breath and cough for 6 days. She had been seen in her PCPs office on 05/19 and given Zithromax and guaifenesin and was sent home, she had been able to ambulate and maintain pulse ox at 93% on room air. Due to worsening symptoms she was sent to ED. She had an O2 sat of 88% on room air, exertional dyspnea, BP 100/65, chest x-ray with a large right pleural effusion and she had ultrasound-guided thoracentesis on 05/24 with a 1700 mL mildly bloody fluid. She also had a paracentesis done during laparoscopic biopsy and requires weekly paracenteses and already had 3 in the month of May 2022. Additional history of CLL with last admission April 2022. #Shortness of breath with mild hypoxia likely secondary to bilateral pleural effusions right greater than left -On admission chest x-ray shows two third of right chest cavity filled with pleural effusion and she had a ultrasound-guided thoracentesis by Dr. Rojas 05/24 with 1700 cc of blood-tinged fluid drained. She is on 1 to 2 L of O2 and guaifenesin and incentive spirometry were continued. -Concern for exudative effusion -Thoracentesis to be performed 05/28 with 2L of serosanguinous fluid out -Did require 2 L of O2 to maintain an O2 sat of 88% on 05/27, saturations improved on room air 05/28 but still required O2 with ambulation -We will repeat a.m. chest x-ray -05/29: Reports breathing is improving, will need to reassess home O2 needs tomorrow prior to discharge, will also decrease Lasix as BUN and creatinine slightly increasing and breathing is improving #Ascites most likely malignant -status post 3 paracentesis in May 2022 -Furosemide resumed and spironolactone started -Has pelvic mass that had biopsy last week and pathology is pending. 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 and some nausea and concern for fluid reaccumulation. Will order abdominal paracentesis. Paracentesis will give further albumin and can likely be discharged home the next morning if stable -05/29: Reevaluate for paracentesis, ideally will have paracentesis today if applicable and DC tomorrow if stable #Hypoalbuminemia -Albumin 1.5 -This complicates pleural effusion and ascites and has received albumin, received albumin again today #Hypotension -Hold antihypertensives, albumin given, midodrine started #Aortic stenosis/AI status post TAVR November 2021 -Last echo January 2020 EF 65% -Had left cardiac cath by Dr. Puri September 2021 with normal right heart pressures and no intracardiac shunting, mid LAD 25% with otherwise angiographically normal coronary arteries #RINA on CKD stage IIIb -On admission creatinine 1.61 with her previous at 1.13 on 05/20, her Lasix and lisinopril were held on admission -RINA resolved and furosemide resumed -05/29: BUN and creatinine trending up, will scale back on Lasix very slightly and continue spironolactone #CLL -Follows with [facility] #DVT ppx: miesha marioq Piedad Hester MD Time spent in the patient's overall evaluation,decision-making process, review of diagnostic data, adjustment of management, discussion with other providers, nursing nursing and ancillary staff involved in patient's care documentation, 30 Minutes Charges/Coding Visit Charges Inpatient E&M: 48217 Subs Hosp L2
[2022-05-29] MEDS: Midodrine HCl 5 MG Tablet 10 MG PO ×3 (10:45→18:33)
[2022-05-29] MEDS: Escitalopram Oxalate 10 MG Tablet 5 MG PO (10:46)
[2022-05-29] MEDS: Aspirin E.C. 81 MG Tablet PO (10:46)
[2022-05-29] MEDS: guaiFENesin/D-Methorphan TAB.SR.12H 2 TABLET PO ×2 (10:46→20:28)
[2022-05-29] MEDS: Potassium Chloride Oral Tablet 10 MEQ PO (10:46)
[2022-05-29] MEDS: Enoxaparin 30 MG/0.3 ML Syringe SC (10:53)
--- NOTE | 2022-05-29 11:31 | NURSING ---
1045 lasix and aldactone held at this time due to bp 84/48. REG Johnson made aware. Will recheck.
[2022-05-29] MEDS: Albumin Human 25% (50 mL) 12.5 GM/50 ML IV.SOLN IV (12:46)
[2022-05-29 13:15] LABS: Pathologist Review Reviewed
[2022-05-29] MEDS: traZODone 50 MG Tablet 25 MG PO (20:35)
[2022-05-30] VITALS (10 sets, daily range): BP systolic 87–136; BP diastolic 48–65; PULSE 55–77; RESP 16–18; TEMP 36.6–37.4; O2SAT 91–96; BMI 24.7
[2022-05-30 06:18] LABS: Absolute Lymphocyte Count 32.41 X10^3/uL (0.83-4.51); Absolute Neutrophil Count 6.3 X10^3/uL (2.0-7.7); Basophil# 0.07 X10^3/uL; Basophil% 0.2 % (0-1); Eosinophil# 0.54 X10^3/uL; Eosinophils% 1.3 % (0-5); Hematocrit 29.4 % (37-47); Hemoglobin 8.9 g/dL (12.0-15.0); Lymphocyte # 32.41 X10^3/ul (0.83-4.51); Lymphocyte % 80.5 % (19-41); Mean Corp Hgb Conc 30.3 g/dL (32-36); Mean Corpuscular Hgb 27.7 pg (27.0-32.0); Mean Corpuscular Volume 91.6 fL (81-99); Mean Platelet Vol. 9.3 fl (6.2-12.0); Monocyte# 0.84 X10^3/uL; Monocyte% 2.1 % (0-10); NRBC Flagged by Analyzer 0 % (0-5); Neutrophil % 15.6 % (47-70); POSITIVE COUNT YES; POSITIVE DIFFERENTIAL YES; POSITIVE MORPHOLOGY YES; Platelet Count 352 K/mm3 (150-450); RBC Distribution Width CV 16.6 % (11.6-14.6); RBC Distribution Width SD 54.6 fl (35.1-43.9); Red Blood Count 3.21 M/mm3 (4.2-5.4)
[2022-05-30 06:34] LABS: Differential Indicated SCAN CRITERIA MET
[2022-05-30 06:36] LABS: White Blood Count 40.3 K/mm3 (4.4-11.0)
[2022-05-30 06:57] LABS: ALB/GLOB Ratio 0.7 RATIO (0.9-2.4); AST(SGOT) 19 U/L (15-37); Alanine Aminotransfer ALT/SGPT 10 U/L (13-56); Albumin, Serum 1.9 g/dL (3.2-5.0); Alkaline Phosphatase 51 U/L (45-117); Anion Gap 3 (5-15); BUN 26 mg/dL (7-18); BUN/Creat Ratio 24.3 RATIO (10-20); Chloride 101 mmol/L (98-107); Creatinine, Serum 1.07 mg/dL (0.55-1.02); EST Glomerular Filtration Rate 52 mL/min (>60); Est Glom Filt Rate - Afr Amer 63 mL/min (>60); Globulin 2.8 g/dL (2.2-4.2); Glucose 105 mg/dL (74-106); Potassium 4.3 mmol/L (3.5-5.1); Protein, Total 4.7 g/dL (6.4-8.2); Sodium Level 136 mmol/L (136-145)
[2022-05-30] MEDS: Potassium Chloride Oral Tablet 10 MEQ PO (08:42)
[2022-05-30] MEDS: Midodrine HCl 5 MG Tablet 10 MG PO ×3 (08:50→21:21)
[2022-05-30 09:02] LABS: Differential Comment SCANNED; Smudge Cells 2+
--- NOTE | 2022-05-30 10:20 | RAD_ITS ---
STUDY: X-RAY CHEST REASON FOR EXAM: Female, 81 years old. Increased cough, recent effusions w/ thoracentesis TECHNIQUE: Single AP portable view of the chest. COMPARISON: Comparison is made with prior study dated 05/29/2022. FINDINGS: EKG electrodes are seen. Progressive increase in size of the right pleural effusion. Patient status post mitral valve replacement. Normal size heart. Normal mediastinum and juan manuel. Normal visualized pulmonary arteries. There is atherosclerotic calcification of the aortic arch with tortuosity. Normal visualized thoracic spine. Sclerotic lesion seen in the proximal shaft of the right humerus. There is no demonstrated abnormality of the visualized soft tissue structures of the upper abdomen. RAD/Chest 1 View (Portable) IMPRESSION: Progressive increase in size of the right pleural effusion. Electronically Signed: Mahad Rojas MD at 15:30 EST ,
--- NOTE | 2022-05-30 10:47 | PCM.PN.HOSP ---
Reason for Visit Reason for Visit: Diagnoses Other disorders of plasma-protein metabolism, not elsewhere classified (05/25/22) Hypotension, unspecified (05/25/22) Pleural effusion, not elsewhere classified (05/25/22) Acute kidney failure, unspecified (05/25/22) Malignant ascites (05/25/22) Intra-abdominal and pelvic swelling, mass and lump, unspecified site (05/25/22) Subjective Subjective Still poor appetite, slight cough this morning she was worried her lungs may be feeling up again with fluid, no change in abdominal pain Objective Data Objective Data Vital Signs: Vital Signs Temp Pulse Resp BP Pulse Ox O2 Del Method O2 Flow Rate 98.6 F 77 18 128/48 H 91 Room Air 2 05/30/22 10:01 05/30/22 08:37 05/30/22 08:37 05/30/22 10:01 05/30/22 10:09 05/30/22 10:09 05/30/22 04:00 Oxygen Flow Rate (L/min) [4] 2 Oxygen Flow Rate (L/min) [3] 4 Oxygen Flow Rate (L/min) [2] 4 Oxygen Flow Rate (L/min) [1 ( 4 Initial Baseline)] Oxygen Flow Rate (L/min) [At 2 REST with Oxygen] Oxygen Flow Rate (L/min) [ 3 AMBULATING with Oxygen #1] Oxygen Flow Rate (L/min) 2 Oxygen Delivery Method [4] Room Air Oxygen Delivery Method [3] Room Air Oxygen Delivery Method [2] Room Air Oxygen Delivery Method [1 ( Room Air Initial Baseline)] Oxygen Delivery Method Room Air Weight: 53.6 kg Body Mass Index (BMI) 24.7 Intake & Output: Intake and Output for Last 24 Hours 05/28/22 05/29/22 05/30/22 23:59 23:59 23:59 Intake Total 600 / 800 730 / 730 Output Total 4120 / 4120 Balance -3520 / -3320 730 / 730 Lab / Micro Data Result Diagrams: 05/30/22 05:50 05/30/22 05:50 Labs: Laboratory Results - last 24 hr 05/29/22 06:00: Diff Path Review Reviewed 05/30/22 05:50: WBC 40.3 H*, RBC 3.21 L, Hgb 8.9 L, Hct 29.4 L, MCV 91.6, MCH 27.7, MCHC 30.3 L, RDW Std Deviation 54.6 H, RDW Coeff of Zack 16.6 H, Plt Count 352, MPV 9.3, Immature Gran % (Auto) 0.300, Neut % (Auto) 15.6 L, Lymph % (Auto) 80.5 H, Vinton % (Auto) 2.1, Eos % (Auto) 1.3, Baso % (Auto) 0.2, Absolute Neuts (auto) 6.3, Absolute Lymphs (auto) 32.41 H, Nucleated RBC % 0, Differential Comment SCANNED, Diff Path Review May foll, Smudge Cells 2+ 05/30/22 05:50: Sodium 136, Potassium 4.3, Chloride 101, Carbon Dioxide 32.0, Anion Gap 3 L, BUN 26 H, Creatinine 1.07 H, Estim Creat Clear Calc 34.30, Est GFR (MDRD) Af Amer 63, Est GFR (MDRD) Non-Af 52 L, BUN/Creatinine Ratio 24.3 H, Glucose 105, Calcium 8.0 L, Total Bilirubin 0.30, AST 19, ALT 10 L, Alkaline Phosphatase 51, Total Protein 4.7 L, Albumin 1.9 L, Globulin 2.8, Albumin/Globulin Ratio 0.7 L Radiography Diagnostic Testing: Radiology Impression Abdomen Ultrasound 05/29/22 07:00 IMPRESSION: No significant amount of ascites. Paracentesis was not performed. Electronically Signed: Mahad Rojas MD at 11:18 EST , Physical Exam Narrative General: Alert, oriented HEENT: Atraumatic, normocephalic Eyes: Anicteric, normal conjunctiva, extraocular movements grossly intact Neck: Supple Respiratory: Diminished breath sounds right middle and lower lobes, normal respiratory effort Cardiovascular: Regular rate and rhythm GI: Soft, slight tender in lower abdomen, is full but not firm Extremities: Trace edema Musculoskeletal: Moving all extremities Neuro: No overt focal neurological deficits Skin: No rashes appreciated Psych: Cooperative Assessment & Plan Assessment/Plan (1) Bilateral pleural effusion: PLAN: Plan 81-year-old with history of CLL, TAVR November 2021, pelvic mass with recent laparoscopic biopsy at [facility] 05/16, hyper tension, CKD stage IIIb presented 05/24 with shortness of breath and cough for 6 days. She had been seen in her PCPs office on 05/19 and given Zithromax and guaifenesin and was sent home, she had been able to ambulate and maintain pulse ox at 93% on room air. Due to worsening symptoms she was sent to ED. She had an O2 sat of 88% on room air, exertional dyspnea, BP 100/65, chest x-ray with a large right pleural effusion and she had ultrasound-guided thoracentesis on 05/24 with a 1700 mL mildly bloody fluid. She also had a paracentesis done during laparoscopic biopsy and requires weekly paracenteses and already had 3 in the month of May 2022. Additional history of CLL with last admission April 2022. #Shortness of breath with mild hypoxia likely secondary to bilateral pleural effusions right greater than left -On admission chest x-ray shows two third of right chest cavity filled with pleural effusion and she had a ultrasound-guided thoracentesis by Dr. Rojas 05/24 with 1700 cc of blood-tinged fluid drained. She is on 1 to 2 L of O2 and guaifenesin and incentive spirometry were continued. -Concern for exudative effusion -Thoracentesis to be performed 05/28 with 2L of serosanguinous fluid out -Did require 2 L of O2 to maintain an O2 sat of 88% on 05/27, saturations improved on room air 05/28 but still required O2 with ambulation -We will repeat a.m. chest x-ray -05/29: Reports breathing is improving, will need to reassess home O2 needs tomorrow prior to discharge, will also decrease Lasix as BUN and creatinine slightly increasing and breathing is improving -05/30: Had cough and slight downtrend in O2, repeat chest x-ray with reaccumulation of fluid. Pulmonology consulted, given she is not symptomatic they recommended obtaining walking pulse ox and supplemental O2 if needed and outpatient thoracentesis and paracentesis when symptomatic. If doing well tomorrow will ambulate and discharge if possible, adjusted timing of midodrine to optimize BP so that Lasix and spironolactone can be resumed #Ascites in setting of poorly differentiated carcinoma stage IIIb after omental biopsy at [facility] last month -status post 3 paracentesis in May 2022 -Furosemide resumed and spironolactone started -Has pelvic mass that had biopsy last week and pathology is pending. 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 and some nausea and concern for fluid reaccumulation. Will order abdominal paracentesis. Paracentesis will give further albumin and can likely be discharged home the next morning if stable -05/29: Reevaluate for paracentesis, ideally will have paracentesis today if applicable and DC tomorrow if stable -05/30: Abdominal exam benign, will follow-up outpatient #Hypoalbuminemia -Albumin 1.5 -This complicates pleural effusion and ascites and has received albumin #Hypotension -Hold antihypertensives, albumin given, midodrine started -05/30: Adjusted timing of midodrine and diuretics #Aortic stenosis/AI status post TAVR November 2021 -Last echo January 2020 EF 65% -Had left cardiac cath by Dr. Puri September 2021 with normal right heart pressures and no intracardiac shunting, mid LAD 25% with otherwise angiographically normal coronary arteries #RINA on CKD stage IIIb -On admission creatinine 1.61 with her previous at 1.13 on 05/20, her Lasix and lisinopril were held on admission -RINA resolved and furosemide resumed -05/29: BUN and creatinine trending up, will scale back on Lasix very slightly and continue spironolactone -05/30: Stable #CLL -Follows with [facility] #DVT ppx: miesha subq Piedad Hester MD Time spent in the patient's overall evaluation,decision-making process, review of diagnostic data, adjustment of management, discussion with other providers, nursing nursing and ancillary staff involved in patient's care documentation, 30 Minutes Charges/Coding Visit Charges Inpatient E&M: 58208 Subs Hosp L2
[2022-05-30] MEDS: Aspirin E.C. 81 MG Tablet PO (11:16)
[2022-05-30] MEDS: Spironolactone 25 MG Tablet 12.5 MG PO (11:16)
[2022-05-30] MEDS: Escitalopram Oxalate 10 MG Tablet 5 MG PO (11:17)
[2022-05-30] MEDS: Furosemide 20 MG Tablet PO (11:17)
[2022-05-30] MEDS: Enoxaparin 30 MG/0.3 ML Syringe SC (11:18)
[2022-05-30] MEDS: guaiFENesin/D-Methorphan TAB.SR.12H 2 TABLET PO ×2 (11:18→21:21)
--- NOTE | 2022-05-30 14:14 | CASEMGMT ---
Noted therapy is recommending further therapy. REG VERNON in to pt room. Pt with visitors at bedside, one being dtr. Discussed HHC. Pt dtr states that she was planning on taking pt to her home in [place] post hospitalization but she is unsure of how long she will stay with her. She asked if she could bring pt back to her home for the HHC visits. Made her aware that an agency could be set up that goes to [place]. They want to talk this over and decide if they want HHC right away or when pt returns back to her own home. They are aware that HHC can be set up as an outpt. REG VERNON to check back tomorrow.
--- NOTE | 2022-05-30 16:56 | CON.PCM.CC_ITS ---
Assessment & Plan Assessment/Plan (1) Bilateral pleural effusion: (2) Pelvic mass: PLAN: Plan RECOMMENDATIONS: 1. Obtain walking oximetry and provide supplemental oxygen if necessary 2. Hold on further thoracentesis unless symptomatic 3. Coordinate for chemotherapy as soon as possible 4. Arrange for outpatient thoracentesis and paracentesis when symptomatic 5. Consider supplementation of diet at home given frailty 6. Okay to discharge from a pulmonary perspective once supportive services in place IMPRESSIONS: 1. Recurrent right pleural effusion secondary to malignant ascites Clinical suspicion is the development of a rift in the diaphragm leading to rapid accumulation of right pleural effusion. Family is very clear that the patient wishes to be aggressive in management moving forward. Clinical suspici on is fluid will continue to rapidly reaccumulate until chemotherapy is initiated. If chemotherapy can slow down the rate, patient may benefit from paracentesis followed by thoracentesis. High clinical suspicion patient will require supplemental oxygen on ambulation. Patient instructed that she can keep her saturations above 90% at all times. Likely not prudent to continue with repeated thoracentesis until chemotherapy can be initiated. 2. 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 Family is clear that they want to follow-up with Dr. Patricio as an outpatient. We need to coordinate patient to initiate chemotherapy as soon as possible as the carcinomatosis is likely leading to rapid reaccumulation and problem #1. 3. Hypotension/aortic stenosis status post TAVR/hypoalbuminemia/acute kidney injury on CKD stage IIIb/CLL Complicates care, management, recovery and prognosis. Patient may require albumin infusions after thoracentesis and paracentesis. Management of patient's intravascular volume will be very difficult, especially with chemotherapy. Okay to continue with midodrine at this time. Patient will need to be closely monitored for orthostatic changes. HPI Consult Data Date of Consult: 05/30/22 HPI Narrative Reason for Consultation: Recurrent pleural effusion HPI Narrative: ASHLEY ALCANTAR is an 81 F, with past medical history listed below, who presents to [facility] on 05/24/2022 secondary to progressive shortness of breath and hypoxia. Patient reportedly was to see her primary care physician and developed hypoxia with ambulation to 81% on room air. Patient also noted to be tachypneic at rest. Patient recently had been seen at the [facility] [place] with a work-up secondary to an intra-abdominal mass and elevated CA125 levels. Patient had been seen in the emergency department on May 20 and noted to velez ve a significant right-sided pleural effusion, but declined admission at that time. Patient not reported any fevers, chills, nausea or vomiting. Patient does report anorexia. The work-up from [facility] was not available at the time of admission. In the ER, patient was afebrile, normotensive and saturating well on room air. Patient was tachypneic as high as 24 breaths/min. Laboratory work-up showed a white blood cell count of 62.1, hemoglobin of 10 and platelets of 396. Chemistries showed a bicarbonate of 26, creatinine of 1.6 and a normal glucose of 102. Chest x-ray showed a large right pleural effusion with atelectasis and slight blunting of the left costophrenic angle. Patient had a thoracentesis, but remained hypoxic, so was admitted to the hospital for further evaluation. Since admission, patient has had another subsequent thoracentesis with almost 2 L removed. Despite this procedure, patient has had reaccumulation in less than a week. Patient states that diagnosis is known from [facility] and they plan on following Dr. Patricio. Family is very adamant that the patient will be aggressive with therapy. Prior to the development of pleural effusion, patient had been receiving a paracentesis approximately once a week for this abdominal mass. The exact diagnosis of the abdominal mass is not available at this time. Patient overall feels subjectively unchanged. Patient states that she felt better after her thoracentesis, but this rapidly went back to the same level. Patient states she is relatively asymptomatic at rest, but gets short of breath with minimal exertion. Review of systems otherwise negative from a constitutional, HEENT, respiratory, cardiovascular, GI, genitourinary, musculoskeletal, skin, neurologic, psychiatric and hematologic system unless stated above. [facility] Medical History Acute maxillary sinusitis, unspecified Acute sinusitis Acute sinusitis Anxiety Aortic regurgitation Aortic stenosis CKD (chronic kidney disease) Contact with and (suspected) exposure to other viral communicable diseases Contusion of left hand including fingers Diarrhea Elevated blood pressure reading in office without diagnosis of hypertension Elevated TSH Glaucoma Hematuria History of right and left heart catheterization (LHC) (~09/29/21) Incontinence Limb weakness Mixed hyperlipidemia Nonrheumatic aortic (valve) stenosis with insufficiency Pelvic mass Post herpetic neuralgia Preop exam for internal medicine Shoulder pain Strain of right trapezius muscle Tinnitus Urinary tract infection with hematuria UTI (urinary tract infection) Home Medications aspirin 81 mg tablet,delayed release 81 mg PO DAILY #1 TAB 09/14/21 [Rx Last Taken 04/26/22] ferrous sulfate 325 mg (65 mg iron) tablet 325 mg PO QODAY 01/29/22 [History Last Taken 04/25/22] atorvastatin 20 mg tablet 20 mg PO QHS CHOLESTEROL 04/28/22 [History Last Taken Unknown] lisinopril 40 mg tablet 40 mg PO DAILY BP 04/28/22 [History Last Taken 04/23/22] furosemide 20 mg tablet 20 mg PO BID #180 tabs 05/14/22 [Rx Last Taken Unknown] potassium chloride 10 mEq tablet,extended release(part/cryst) 10 meq PO DAILY #90 tabs 05/14/22 [Rx Last Taken Unknown] guaifenesin 100 mg/5 mL oral liquid 200 mg (10 mL) PO Q4H PRN cough #200 mL 05/19/22 [Rx Last Taken Unknown] escitalopram oxalate 5 mg tablet (Lexapro) 5 mg PO DAILY #30 tabs 05/21/22 [Rx Last Taken Unknown] Allergy/AdvReac Type Severity Reaction Status Date / Time cephalexin [From Keflex] Allergy Severe Other Verified 05/24/22 11:08 Family History Other Colon cancer Diabetes Myocardial infarction Surgical History History of bilateral cataract extraction History of transcatheter aortic valve replacement (TAVR) (~12/14/21) Social History household members: other details: number of children: 4 current occupational 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 Smoking Status: Former smoker alcohol intake: never substance use type: does not use caffeine: Yes Type: tea Number of servings: 1 ROS ROS Narrative See HPI Physical Exam Const alert and no apparent distress General Appearance: frail HEENT head/scalp atraumatic and moist oral mucous membranes Eyes PERRL, EOMs intact bilaterally, conjunctivae normal and no scleral icterus Neck full ROM Neck Narrative: JVD noted Resp normal respiratory effort and no retractions Auscultation: diminished lung sounds; Negative for rales, rhonchi or wheezes Percussion: dullness Mid: right and Lower: right Cardio regular rate, regular rhythm, S1 normal heart sound, S2 normal heart sound, no murmurs, no rub and no gallops GI normal to inspection, nondistended, normoactive bowel sounds, soft to palpation, non-tender and non-distended Back/Spine no CVA tenderness Extremity no clubbing, cyanosis or edema Neuro oriented x3, CN's II-XII intact bilaterally and moves all extremities Medical Records Data Attestation: I reviewed the patient's medical records Medical records narrative: Review of thoracentesis labs are consistent with an exudate etiology Lab / Micro Data Attestation: I reviewed the patient's lab results. Result Diagrams: 05/30/22 05:50 05/30/22 05:50 Labs: Laboratory Results - last 24 hr 05/30/22 05:50: WBC 40.3 H*, RBC 3.21 L, Hgb 8.9 L, Hct 29.4 L, MCV 91.6, MCH 27.7, MCHC 30.3 L, RDW Std Deviation 54.6 H, RDW Coeff of Zack 16.6 H, Plt Count 352, MPV 9.3, Immature Gran % (Auto) 0.300, Neut % (Auto) 15.6 L, Lymph % (Auto) 80.5 H, [place] % (Auto) 2.1, Eos % (Auto) 1.3, Baso % (Auto) 0.2, Absolute Neuts (auto) 6.3, Absolute Lymphs (auto) 32.41 H, Nucleated RBC % 0, Differential Comment SCANNED, Diff Path Review May foll, Smudge Cells 2+ 05/30/22 05:50: Sodium 136, Potassium 4.3, Chloride 101, Carbon Dioxide 32.0, Anion Gap 3 L, BUN 26 H, Creatinine 1.07 H, Estim Creat Clear Calc 34.30, Est GFR (MDRD) Af Amer 63, Est GFR (MDRD) Non-Af 52 L, BUN/Creatinine Ratio 24.3 H, Glucose 105, Calcium 8.0 L, Total Bilirubin 0.30, AST 19, ALT 10 L, Alkaline Phosphatase 51, Total Protein 4.7 L, Albumin 1.9 L, Globulin 2.8, Albumin/Globulin Ratio 0.7 L Radiology Impression Chest X-Ray 05/30/22 10:20 IMPRESSION: Progressive increase in size of the right pleural effusion. Electronically Signed: Mahad Rojas MD at 15:30 EST , Charges/Coding Visit Charges Inpatient E&M: 52631 Init Hosp L2
[2022-05-30] MEDS: Ferrous Sulfate 325 MG Tablet PO (18:07)
[2022-05-30] MEDS: 0.9% Saline Lock 10 ML Syringe IV (22:33)
[2022-05-30] MEDS: Ondansetron 4 MG/2 ML Vial IV (22:33)
[2022-05-31] VITALS (10 sets, daily range): BP systolic 105–155; BP diastolic 51–89; PULSE 56–60; RESP 16–18; TEMP 36.8–37.2; O2SAT 87–98; BMI 24.5
[2022-05-31] MEDS: Midodrine HCl 5 MG Tablet 10 MG PO ×2 (06:31→15:53)
[2022-05-31] MEDS: Ondansetron 4 MG/2 ML Vial IV (09:13)
[2022-05-31 09:20] LABS: Pathologist Review Reviewed
[2022-05-31 09:38] LABS: Absolute Lymphocyte Count 48.04 X10^3/uL (0.83-4.51); Absolute Neutrophil Count 8.4 X10^3/uL (2.0-7.7); Basophil# 0.11 X10^3/uL; Basophil% 0.2 % (0-1); Eosinophil# 0.48 X10^3/uL; Eosinophils% 0.8 % (0-5); Hematocrit 31.7 % (37-47); Hemoglobin 9.7 g/dL (12.0-15.0); Lymphocyte # 48.04 X10^3/ul (0.83-4.51); Lymphocyte % 82.7 % (19-41); Mean Corp Hgb Conc 30.6 g/dL (32-36); Mean Corpuscular Hgb 27.6 pg (27.0-32.0); Mean Corpuscular Volume 90.3 fL (81-99); Mean Platelet Vol. 8.8 fl (6.2-12.0); Monocyte# 0.93 X10^3/uL; Monocyte% 1.6 % (0-10); NRBC Flagged by Analyzer 0 % (0-5); Neutrophil # 8.38 X10^3/uL (2.7-7.7); Neutrophil % 14.4 % (47-70); POSITIVE COUNT YES; POSITIVE DIFFERENTIAL YES; POSITIVE MORPHOLOGY YES; Platelet Count 399 K/mm3 (150-450); RBC Distribution Width CV 16.8 % (11.6-14.6); Red Blood Count 3.51 M/mm3 (4.2-5.4)
[2022-05-31 09:51] LABS: Differential Indicated SCAN CRITERIA MET; White Blood Count 58.1 K/mm3 (4.4-11.0)
[2022-05-31 09:54] LABS: Anion Gap 7 (5-15); BUN 28 mg/dL (7-18); BUN/Creat Ratio 23.9 RATIO (10-20); Chloride 98 mmol/L (98-107); Creatinine, Serum 1.17 mg/dL (0.55-1.02); EST Glomerular Filtration Rate 47 mL/min (>60); Est Glom Filt Rate - Afr Amer 57 mL/min (>60); Estimated Creatinine Clearance 31.25 ml/min; Glucose 103 mg/dL (74-106); Sodium Level 137 mmol/L (136-145)
--- NOTE | 2022-05-31 09:55 | PCM.PN.INT ---
Assessment & Plan Assessment/Plan (1) Bilateral pleural effusion: (2) Pelvic mass: PLAN: Plan RECOMMENDATIONS: 1. Confirmed that supplemental oxygen will be available at discharge 2. Hold on further thoracentesis unless symptomatic 3. Coordinate for chemotherapy as soon as possible 4. Arrange for outpatient thoracentesis and paracentesis when symptomatic 5. Consider supplementation of diet at home given frailty 6. Okay to discharge from a pulmonary perspective once supportive services in place IMPRESSIONS: 1. Recurrent right pleural effusion secondary to malignant ascites Clinical suspicion is the development of a rift in the diaphragm leading to rapid accumulation of right pleural effusion. Family is very clear that the patient wishes to be aggressive in management moving forward. Clinical suspicion is fluid will continue to rapidly reaccumulate until chemotherapy is initiated. If chemotherapy can slow down the rate, patient may benefit from paracentesis followed by thoracentesis. High clinical suspicion patient will require supplemental oxygen on ambulation. Patient instructed that she can keep her saturations above 90% at all times. Likely not prudent to continue with repeated thoracentesis until chemotherapy can be initiated. Once chemotherapy is initiated, may attempt drainage and monitor for reaccumulation. Anticipate pleural effusion will reaccumulate initially with subsequent ascites once pressure has equalized on the right. Unclear if patient will require outpatient pulmonary follow-up. Would defer to oncology. 2. 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 Family is clear that they want to follow-up with Dr. Patricio as an outpatient. We need to coordinate patient to initiate chemotherapy as soon as possible as the carcinomatosis is likely leading to rapid reaccumulation and problem #1. 3. Hypotension/aortic stenosis status post TAVR/hypoalbuminemia/acute kidney injury on CKD stage IIIb/CLL Complicates care, management, recovery and prognosis. Patient may require albumin infusions after thoracentesis and paracentesis. Management of patient's intravascular volume will be very difficult, especially with chemotherapy. Okay to continue with midodrine at this time. Patient will need to be closely monitored for orthostatic changes. Subjective Subjective Patient did well overnight. No subjective change in overall condition. Patient wants to get on with chemotherapy. Patient does feel subjectively that the oxygen is helpful, especially with movement. Objective Data Objective Data Vital Signs: Vital Signs Temp Pulse Resp BP Pulse Ox O2 Del Method O2 Flow Rate 36.8 C 58 L 18 105/55 L 93 Nasal Cannula 2 05/31/22 08:32 05/31/22 08:32 05/31/22 08:32 05/31/22 08:32 05/31/22 08:32 05/31/22 08:35 05/31/22 08:35 Oxygen Flow Rate (L/min) [4] 2 Oxygen Flow Rate (L/min) [3] 4 Oxygen Flow Rate (L/min) [2] 4 Oxygen Flow Rate (L/min) [1 ( 4 Initial Baseline)] Oxygen Flow Rate (L/min) [At 2 REST with Oxygen] Oxygen Flow Rate (L/min) [ 3 AMBULATING with Oxygen #1] Oxygen Flow Rate (L/min) 2 Oxygen Delivery Method [4] Room Air Oxygen Delivery Method [3] Room Air Oxygen Delivery Method [2] Room Air Oxygen Delivery Method [1 ( Room Air Initial Baseline)] Oxygen Delivery Method Nasal Cannula Weight: 53.4 kg Body Mass Index (BMI) 24.5 Intake & Output: Intake and Output for Last 24 Hours 05/29/22 05/30/22 05/31/22 23:59 23:59 23:59 Intake Total 730 / 730 Balance 730 / 730 Lab / Micro Data Attestation: I reviewed the patient's lab results. Result Diagrams: 05/31/22 09:25 05/31/22 09:25 Labs: Laboratory Results - last 24 hr 05/30/22 05:50: Diff Path Review Reviewed 05/31/22 09:25: WBC 58.1 H*, RBC 3.51 L, Hgb 9.7 L, Hct 31.7 L, MCV 90.3, MCH 27.6, MCHC 30.6 L, RDW Std Deviation 54.0 H, RDW Coeff of Zack 16.8 H, Plt Count 399, MPV 8.8, Immature Gran % (Auto) 0.300, Neut % (Auto) 14.4 L, Lymph % (Auto) 82.7 H, [place] % (Auto) 1.6, Eos % (Auto) 0.8, Baso % (Auto) 0.2, Absolute Neuts (auto) 8.4 H, Absolute Lymphs (auto) 48.04 H, Nucleated RBC % 0 05/31/22 09:25: Sodium 137, Potassium 5.0, Chloride 98, Carbon Dioxide 32.0, Anion Gap 7, BUN 28 H, Creatinine 1.17 H, Estim Creat Clear Calc 31.25, Est GFR (MDRD) Af Amer 57 L, Est GFR (MDRD) Non-Af 47 L, BUN/Creatinine Ratio 23.9 H, Glucose 103, Calcium 8.0 L Radiography Diagnostic Testing: Radiology Impression Chest X-Ray 05/30/22 10:20 IMPRESSION: Progressive increase in size of the right pleural effusion. Electronically Signed: Mahda Rojas MD at 15:30 EST , Physical Exam Const alert and no apparent distress General Appearance: frail HEENT head/scalp atraumatic and moist oral mucous membranes Eyes PERRL, EOMs intact bilaterally, conjunctivae normal and no scleral icterus Neck full ROM Neck Narrative: JVD noted Resp normal respiratory effort and no retractions Auscultation: diminished lung sounds; Negative for rales, rhonchi or wheezes Percussion: dullness Mid: right and Lower: right Cardio regular rate, regular rhythm, S1 normal heart sound, S2 normal heart sound, no murmurs, no rub and no gallops GI normal to inspection, nondistended, normoactive bowel sounds, soft to palpation, non-tender and non-distended Back/Spine no CVA tenderness Extremity no clubbing, cyanosis or edema Neuro oriented x3, CN's II-XII intact bilaterally and moves all extremities Charges/Coding Visit Charges Inpatient E&M: 40142 Subs Hosp L2
[2022-05-31 10:12] LABS: Differential Comment SCANNED; Red Cell Morphology NORM C+C NORMAL (NORM C&C)
[2022-05-31] MEDS: Potassium Chloride Oral Tablet 10 MEQ PO (10:39)
[2022-05-31] MEDS: Spironolactone 25 MG Tablet 12.5 MG PO (10:41)
[2022-05-31] MEDS: Aspirin E.C. 81 MG Tablet PO (10:42)
[2022-05-31] MEDS: Furosemide 20 MG Tablet PO (10:42)
[2022-05-31] MEDS: Escitalopram Oxalate 10 MG Tablet 5 MG PO (10:43)
[2022-05-31] MEDS: Enoxaparin 30 MG/0.3 ML Syringe SC (10:43)
[2022-05-31] MEDS: guaiFENesin/D-Methorphan TAB.SR.12H 2 TABLET PO (10:44)
--- NOTE | 2022-05-31 12:50 | CASEMGMT ---
Addendum entered by Anirudh Blackmon 05/31/22 16:06: Home amb testing has been completed. Pt qualifies for O2 @ 2 l/m w/exertion. Script received from Dr Hester and referral for O2 sent to [facility] via [facility]. Call to Rema @ [employer] and she was notified. Rema up to floor to deliver O2 to pt's room w/instructions. Addendum entered by Anirudh Blackmon 05/31/22 13:33: Per [employer] message, [facility]. Call placed to pt's dtr, Igovanna, and she was made aware. Also notified her [employer] will be reaching out to either her or her mother re: scheduling SOC. She voices understanding and has [facility] contact #. Original Note: RN CM NOTE: Per Dr Hester, pt is discharging home today. Call placed to pt's dtr, Giovanna. She confirms pt is discharging to her home in [place] and they do want HHC. [facility] Call placed to Marvin @ [facility], who states they will most likely be able to accept her, but to send referral through [facility] for official review/acceptance. Referral sent via [facility] at this time. RN CM did specify in referral that pt is going to her dtr's home in [place] initially and address provided in [facility]. Awaiting answer re: acceptance. Amb pulse ox to be completed prior to discharge. RN CM will follow. Per Dr Hester, Dr Martínez spoke w/Dr Patricio re: patient. Dtr made aware of same and was advised to call Dr Patricio's office to schedule an appt. She voices appreciation. Lisa WADDELL RN CM
[2022-05-31 13:04] LABS: Pathologist Review Reviewed
--- NOTE | 2022-05-31 13:38 | DCINST_ITS ---
Discharge Instructions Diet Discharge Diet: - (Would recommend adding Ensure or boost 3 times daily with meals) Activity Discharge Activity: Return to Normal Activity Follow Up Care Test Results: Test results from this visit will be discussed in further detail at your follow- up appointment, if applicable. Discharge Plan Admission Admit Date/Time: 05/25/22 15:08 Primary Reason for Your Visit: Shortness of breath and cough for 6 days Attending Provider: Piedad Hester Primary Care Provider: Megan Bernardo Consulting Providers: Sai Lee ; Khari Oliva ; Pravin Martínez ; Bud Hanna ; Wade Marcus ; Kane Borges ; Nani Crowder ALLEY WORKER Instructions Patient Instructions: VICTORIA RN Thoracentesis Dc Additional Instructions / Restrictions: DISCHARGE INSTRUCTIONS PLEASE READ *Please take this with you to your next doctors appointment* -You have an appointment with Dr. Patricio tomorrow 06/01/2022 at 8:30 AM. Please call his office for any questions or concerns. -Due to the fluid building up in your belly and your lung you were started spironolactone in addition to your furosemide which are water pills which you will take daily. Your furosemide was decreased to 20 mg daily because of your blood pressure and you will take 12.5 mg of spironolactone -Midodrine and spironolactone have been sent to your preferred pharmacy on file, [facility] in [place] -Your lisinopril was held due to your low blood pressure -Would recommend weighing yourself every morning and keeping a log of this, if you gain more than 3 pounds in 24 hours please call your primary provider -You had low blood pressure during your admission and was started on a medicine called midodrine, you will be discharged with this and you will take it 3 times daily. Would recommend taking these as close to 8 hours apart as possible. - Would recommend lab work (BMP) to check your potassium in 3 to 5 days through your primary care physician's office to assess if your need to restart potassium supplementation. Given that spironolactone was started as likely will not need further supplementation. Please call their office upon discharge to obtain order for lab work. -Please call your primary care provider's office upon discharge to schedule a hospital follow up within 1 week. -For any concerning signs or symptoms please call 911 or proceed to the nearest emergency department Discharge Orders/Prescriptions Prescriptions: New midodrine 5 mg Tablet 10 mg PO TID 30 Days Qty: 180 0RF spironolactone 25 mg Tablet 12.5 mg PO DAILY 30 Days Qty: 15 0RF Continued aspirin 81 mg tablet,delayed release (DR/EC) 81 mg PO DAILY Qty: 1 0RF ferrous sulfate 325 mg (65 mg iron) tablet 325 mg PO QODAY atorvastatin 20 mg tablet 20 mg PO QHS guaifenesin 100 mg/5 mL liquid 200 mg PO Q4H PRN (Reason: cough) Qty: 200 0RF escitalopram oxalate [Lexapro] 5 mg tablet 5 mg PO DAILY Qty: 30 1RF Changed furosemide 20 mg tablet 20 mg PO DAILY Qty: 180 3RF Discontinued lisinopril 40 mg tablet 40 mg PO DAILY Hold Instructions: hypotension Label Comments: TAKE 1 TABLET BY MOUTH ONCE DAILY potassium chloride 10 mEq tablet,ER particles/crystals 10 meq PO DAILY Qty: 90 3RF Referrals / Follow Up: Megan Bernardo MD [Primary Care Provider] - Within 1 Week Maurice Patricio DO [Med Staff - Active Staff] - 06/01/22 8:30 am Disposition Disposition (needs filled in before D/C Order can be placed): Home Health Service
--- NOTE | 2022-05-31 13:59 | PCM.DC.SUM ---
Providers Date of Admission: 05/25/22 Date of Discharge: 05/31/22 Primary Care Physician: Dr. Megan Bernardo MD Consultations 05/30/22 11:04 Consult: Tower Helper / Pulmonary Medicine Routine Consulting Provider: Pulmonary Medicine paula Perez Reason for Consult: recurrent R pleural effusion despite thoracentesis x2 EMERGENT Consult: No MD Notified: Yes Date Notified: 05/30/22 Time Notified: 11:04 Method of Notification: Moses spoke with Mauricio Reason For Visit: HYPOXIA, MALIGNANT PLEURAL EFFUSION, MALIGNANT Diagnosis Discharge Diagnosis (1) Bilateral pleural effusion: Status: Acute Code(s): J90 - Pleural effusion, not elsewhere classified (2) Pelvic mass: Status: Acute Code(s): R19.00 - Intra-abdominal and pelvic swelling, mass and lump, unspecified site Plan #Shortness of breath with mild hypoxia secondary to bilateral pleural effusions right greater than left #Ascites in setting of poorly differentiated carcinoma stage IIIb after omental biopsy at [facility] last month #Hypotension #Aortic stenosis/AI status post TAVR November 2021 #RINA resolved #CKD stage IIIb #CLL Medications at Discharge Home Medications aspirin 81 mg tablet,delayed release 81 mg PO DAILY #1 TAB 09/14/21 ferrous sulfate 325 mg (65 mg iron) tablet 325 mg PO QODAY 01/29/22 atorvastatin 20 mg tablet 20 mg PO QHS CHOLESTEROL 04/28/22 guaifenesin 100 mg/5 mL oral liquid 200 mg (10 mL) PO Q4H PRN cough #200 mL 05/19/22 escitalopram oxalate 5 mg tablet (Lexapro) 5 mg PO DAILY #30 tabs 05/21/22 furosemide 20 mg tablet 20 mg PO DAILY #180 tabs 05/31/22 midodrine 5 mg tablet 10 mg PO TID 30 days #180 tabs 05/31/22 spironolactone 25 mg tablet 12.5 mg PO DAILY 30 days #15 tabs 05/31/22 Hospital Course Procedures - (Thoracentesis x2) Summary of Care Provided Minutes Spent on Discharge: 40 Hospital Course: 81-year-old with history of CLL, TAVR November 2021, pelvic mass with recent laparoscopic biopsy at [facility] 05/16, hypertension, CKD stage IIIb presented 05/24 with shortness of breath and cough for 6 days. She had been seen in her PCPs office on 05/19 and given Zithromax and guaifenesin and was sent home, she had been able to ambulate and maintain pulse ox at 93% on room air. Due to worsening symptoms she was sent to ED. She had an O2 sat of 88% on room air, exertional dyspnea, BP 100/65, chest x-ray with a large right pleural effusion and she had ultrasound-guided thoracentesis on 05/24 with a 1700 mL mildly bloody fluid. She also had a paracentesis done during laparoscopic biopsy and requires weekly paracenteses and already had 3 in the month of May 2022. Additional history of CLL with last admission April 2022. While she was admitted there was concern for reaccumulated fluid which was confirmed and repeat thoracentesis done on 05/28 with 2 L of serosanguineous fluid out. O2 needs had decreased and she was doing better. Was evaluated to see if she needed further paracentesis and it was deemed she did not. Did have low blood pressure and was started on midodrine and was given albumin several times, once the spacing of the midodrine was adjusted this did help significantly. Initially did well on diuretics but after low BP these were decreased. Her hospital stay was complicated by RINA which resolved. On the day she was planned to be discharged 05/30 she reported increased dry cough and had some dullness that increased on the right side of her chest. Chest x-ray showed reaccumulation of effusion and pulmonology consulted. Review of external records showed her omental biopsy results as poorly differentiated carcinoma stage IIIb. Discussed with pulmonology and it was felt repeat thoracentesis would not be helpful as the fluid will continue to accumulate until the underlying malignancy was addressed and as long she was not overly symptomatic further thoracentesis could be done on an outpatient basis as needed. Dr. Martínez did talk to her cancer doctor, Dr. Patricio, who is aware of her diagnosis and present situation and set up an appointment for 06/01 at 8:30 AM. Prior to discharge she was ambulated to assess for home O2 needs. On day of discharge she had a little bit of nausea in the morning which she accounted to her room being too warm and this did improve and she was able to tolerate food and wanted to go home. Still some abdominal fullness but not overtly changed from the day prior. Denied other new or acute complaints. Discharge instructions as follows: DISCHARGE INSTRUCTIONS PLEASE READ *Please take this with you to your next doctors appointment* -You have an appointment with Dr. Patricio tomorrow 06/01/2022 at 8:30 AM. Please call his office for any questions or concerns. -Due to the fluid building up in your belly and your lung you were started spironolactone in addition to your furosemide which are water pills which you will take daily. Your furosemide was decreased to 20 mg daily because of your blood pressure and you will take 12.5 mg of spironolactone -Midodrine and spironolactone have been sent to your preferred pharmacy on file, [facility] on [facility] in [place] -Your lisinopril was held due to your low blood pressure -Would recommend weighing yourself every morning and keeping a log of this, if you gain more than 3 pounds in 24 hours please call your primary provider -You had low blood pressure during your admission and was started on a medicine called midodrine, you will be discharged with this and you will take it 3 times daily. Would recommend taking these as close to 8 hours apart as possible. -You will be discharged with home oxygen, please use this as directed. -- Would recommend lab work (BMP) to check your potassium in 3 to 5 days through your primary care physician's office to assess if your need to restart potassium supplementation. Given that spironolactone was started as likely will not need further supplementation. Please call their office upon discharge to obtain order for lab work. -Please call your primary care provider's office upon discharge to schedule a hospital follow up within 1 week. -For any concerning signs or symptoms please call 911 or proceed to the nearest emergency department Physical Exam Narrative General: Alert, oriented HEENT: Atraumatic, normocephalic Eyes: Anicteric, normal conjunctiva, extraocular movements grossly intact Neck: Supple Respiratory: Diminished breath sounds right middle and lower lobes, normal respiratory effort Cardiovascular: Regular rate and rhythm GI: Soft, slight tender in lower abdomen, is full but not firm Extremities: Trace edema Musculoskeletal: Moving all extremities Neuro: No overt focal neurological deficits Skin: No rashes appreciated Psych: Cooperative Weight / BMI Weight Weight: 53.4 kg Body Mass Index (BMI) 24.5 ABG / Lab / Microbiology Data Result Diagrams: 05/31/22 09:25 05/31/22 09:25 Laboratory: Laboratory Results - last 24 hr 05/30/22 05:50: Diff Path Review Reviewed 05/31/22 09:25: WBC 58.1 H*, RBC 3.51 L, Hgb 9.7 L, Hct 31.7 L, MCV 90.3, MCH 27.6, MCHC 30.6 L, RDW Std Deviation 54.0 H, RDW Coeff of Zack 16.8 H, Plt Count 399, MPV 8.8, Immature Gran % (Auto) 0.300, Neut % (Auto) 14.4 L, Lymph % (Auto) 82.7 H, Yancey % (Auto) 1.6, Eos % (Auto) 0.8, Baso % (Auto) 0.2, Absolute Neuts (auto) 8.4 H, Absolute Lymphs (auto) 48.04 H, Nucleated RBC % 0, Differential Comment SCANNED, Diff Path Review Reviewed, RBC Morphology NORM C+C 05/31/22 09:25: Sodium 137, Potassium 5.0, Chloride 98, Carbon Dioxide 32.0, Anion Gap 7, BUN 28 H, Creatinine 1.17 H, Estim Creat Clear Calc 31.25, Est GFR (MDRD) Af Amer 57 L, Est GFR (MDRD) Non-Af 47 L, BUN/Creatinine Ratio 23.9 H, Glucose 103, Calcium 8.0 L Radiography Diagnostic Testing: Radiology Impression Chest X-Ray 05/30/22 10:20 IMPRESSION: Progressive increase in size of the right pleural effusion. Electronically Signed: Mahad Rojas MD at 15:30 EST , D/C Instructions Discharge Diet: - (Would recommend adding Ensure or boost 3 times daily with meals) Meaningful Use Info Meaningful Use Diagnoses (Choose all that apply): None applicable Discharge Plan Admission Admit Date/Time: 05/25/22 15:08 Primary Reason for Your Visit: Shortness of breath and cough for 6 days Attending Provider: Piedad Hester Primary Care Provider: Megan Bernardo Consulting Providers: Sai Lee ; Khari Oliva ; Pravin Martínez ; Bud Hanna ; Wade Marcus ; Kane Borges ; Nani Crowder HAND SHAKER Instructions Patient Instructions: VICTORIA FINNEY Thoracentesis Dc Additional Instructions / Restrictions: DISCHARGE INSTRUCTIONS PLEASE READ *Please take this with you to your next doctors appointment* -You have an appointment with Dr. Patricio tomorrow 06/01/2022 at 8:30 AM. Please call his office for any questions or concerns. -Due to the fluid building up in your belly and your lung you were started spironolactone in addition to your furosemide which are water pills which you will take daily. Your furosemide was decreased to 20 mg daily because of your blood pressure and you will take 12.5 mg of spironolactone -Midodrine and spironolactone have been sent to your preferred pharmacy on file, [facility] [place] on [facility] in [place] -Your lisinopril was held due to your low blood pressure -Would recommend weighing yourself every morning and keeping a log of this, if you gain more than 3 pounds in 24 hours please call your primary provider -You had low blood pressure during your admission and was started on a medicine called midodrine, you will be discharged with this and you will take it 3 times daily. Would recommend taking these as close to 8 hours apart as possible. - Would recommend lab work (BMP) to check your potassium in 3 to 5 days through your primary care physician's office to assess if your need to restart potassium supplementation. Given that spironolactone was started as likely will not need further supplementation. Please call their office upon discharge to obtain order for lab work. -Please call your primary care provider's office upon discharge to schedule a hospital follow up within 1 week. -For any concerning signs or symptoms please call 911 or proceed to the nearest emergency department Discharge Orders/Prescriptions Prescriptions: New midodrine 5 mg Tablet 10 mg PO TID 30 Days Qty: 180 0RF spironolactone 25 mg Tablet 12.5 mg PO DAILY 30 Days Qty: 15 0RF Continued aspirin 81 mg tablet,delayed release (DR/EC) 81 mg PO DAILY Qty: 1 0RF ferrous sulfate 325 mg (65 mg iron) tablet 325 mg PO QODAY atorvastatin 20 mg tablet 20 mg PO QHS [facility]/5 mL liquid 200 mg PO Q4H PRN (Reason: cough) Qty: 200 0RF escitalopram oxalate [Lexapro] 5 mg tablet 5 mg PO DAILY Qty: 30 1RF Changed furosemide 20 mg tablet 20 mg PO DAILY Qty: 180 3RF Discontinued lisinopril 40 mg tablet 40 mg PO DAILY Hold Instructions: hypotension Label Comments: TAKE 1 TABLET BY MOUTH ONCE DAILY potassium chloride 10 mEq tablet,ER particles/crystals 10 meq PO DAILY Qty: 90 3RF Referrals / Follow Up: Megan Bernardo MD [Primary Care Provider] - Within 1 Week Maurice Patricio DO [Med Staff - Active Staff] - 06/01/22 8:30 am Disposition Disposition (needs filled in before D/C Order can be placed): Home Health Service Charges/Coding Visit Charges Inpatient E&M: 00973 Disch Hosp >30min
--- NOTE | 2022-05-31 15:10 | PHA.DC.MC ---
Pharmacy Service has performed discharge medication reconciliation and counseling for this patient. The patient was counseled on the following discharge medications and changes in medications for homegoing were reviewed. 1. ZOFRAN 2. ALDACTONE 3. MIDODRINE The Reason for Use, instructions for use, and potential side effects were reviewed for all new medications. The patient's questions regarding all of their medications were answered. The patient was able to verbally demonstrate an understanding of their discharge medications. Home Medications aspirin 81 mg tablet,delayed release 81 mg PO DAILY #1 TAB 09/14/21 ferrous sulfate 325 mg (65 mg iron) tablet 325 mg PO QODAY 01/29/22 atorvastatin 20 mg tablet 20 mg PO QHS CHOLESTEROL 04/28/22 guaifenesin 100 mg/5 mL oral liquid 200 mg (10 mL) PO Q4H PRN cough #200 mL 05/19/22 escitalopram oxalate 5 mg tablet (Lexapro) 5 mg PO DAILY #30 tabs 05/21/22 furosemide 20 mg tablet 20 mg PO DAILY #180 tabs 05/31/22 midodrine 5 mg tablet 10 mg PO TID 30 days #180 tabs 05/31/22 ondansetron 4 mg disintegrating tablet 4 mg PO Q8H PRN nausea and vomiting #20 tabs 05/31/22 spironolactone 25 mg tablet 12.5 mg PO DAILY 30 days #15 tabs 05/31/22 The patient's discharge medication list was reviewed for discrepancies and discrepancies were resolved. NOTE: patient and family requested an antinausea medication upon discharge, which was not originally ordered. Contacted hospitalist and she agreed to call in Zofran for the patient. Updated family and provided [employer] with information and directions for use. All questions answered at this time.
== END 2022-05-31 16:57 | disposition home health service (06) | DRG 187 ==
LOC: ED 15:54 → MS3 16:22
PROVIDERS: Admitting Provider Internal Medicine; Emergency Provider Emergency Medicine; PCP Internal Medicine; Visit Provider Internal Medicine
DX: J90 Pleural effusion, not elsewhere classified (principal); C48.1 Malignant neoplasm of specified parts of peritoneum; R18.0 Malignant ascites; N17.9 Acute kidney failure, unspecified; C91.10 Chronic lymphocytic leukemia of B-cell type not having achieved remission; E88.09 Other disorders of plasma-protein metabolism, not elsewhere classified; I95.9 Hypotension, unspecified; N18.32 Chronic kidney disease, stage 3b; E78.2 Mixed hyperlipidemia; I35.0 Nonrheumatic aortic (valve) stenosis; I12.9 Hypertensive chronic kidney disease with stage 1 through stage 4 chronic kidney disease, or unspecified chronic kidney disease; Z53.8 Procedure and treatment not carried out for other reasons; R09.02 Hypoxemia; Z79.82 Long term (current) use of aspirin; Z79.899 Other long term (current) drug therapy; Z87.891 Personal history of nicotine dependence; Z95.2 Presence of prosthetic heart valve
CPT/HCPCS: 32555; 36415; 71045; 71046; 76705; 80048; 80053; 82040; 82945; 83615; 83735; 84157; 85025; 85610; 88108; 88305; 88313; 89050; 93005; 94668; 97110; 97116; 97162; 97166; 97530; 97535; 99252; 99285; P9047; A4216; G0463; J2405

== ENCOUNTER → 2022-06-05 | Outpatient (CLI) | payer MEDICARE, OTHER, SELFPAY ==
--- NOTE | 2022-06-05 08:05 | US_ITS ---
PROCEDURE: ULTRASOUND GUIDED THORACENTESIS. DATE: June 05, 2022. INDICATION: Female, 81 years old. Right pleural effusion PHYSICIAN: Mahad Rojas M.D. PROCEDURE: The risks, benefits, and alternatives to the procedure were explained to the patient. The specific risks of bleeding, infection, and pneumothorax requiring chest tube insertion were discussed and accepted. Written informed consent was obtained. Ultrasonographic evaluation of the lower pleural space was carried out. An adequate pocket was identified. The patient was placed in the sitting, upright position. The overlying skin was prepped and draped in sterile fashion. 1% lidocaine was administered subcutaneously for local anesthesia. Under ultrasound guidance, a 5 Belarusian thoracentesis needle/catheter system was advanced into the right posterior lower pleural fluid collection. Approximately 2280 mL of blood-tinged fluid was drained. The catheter was removed, and a sterile dressing was applied. The patient tolerated the procedure well. A chest x-ray was ordered. US/Thoracentesis W US IMPRESSION: Ultrasound-guided right thoracentesis. Electronically Signed: Mahad Rojas MD at 9:31 EST ,
--- NOTE | 2022-06-05 08:15 | RAD_ITS ---
STUDY: X-RAY CHEST REASON FOR EXAM: Female, 81 years old. POST THORA TECHNIQUE: AP inspiration and expiration views. COMPARISON: Comparison is made with prior study May 30, 2022. FINDINGS: The patient is status post right thoracentesis. No evidence pneumothorax. RAD/Chest Insp/Exp 2 View IMPRESSION: No evidence of pneumothorax following the right thoracentesis. Electronically Signed: Mahad Rojas MD at 9:32 EST ,
[2022-06-05 08:25] VITALS: BP 110/65; BP 113/56; BP 114/56; BP 118/62; BP 152/68; BP 169/92; PULSE 76; PULSE 77; PULSE 78; RESP 18; RESP 20; RESP 22; TEMP 36.6; O2SAT 96; O2SAT 97
[2022-06-05] MEDS: Lidocaine 2% (20 ml mdv) 20 ML Vial INFILT (09:13)
== END | disposition home or self-care (01) ==
LOC: US 08:03
PROVIDERS: PCP Internal Medicine
DX: C91.10 Chronic lymphocytic leukemia of B-cell type not having achieved remission (principal)
CPT/HCPCS: 32555; 71046

== ENCOUNTER → 2022-06-07 | Outpatient (CLI) | payer MEDICARE, OTHER, SELFPAY ==
--- NOTE | 2022-06-07 08:07 | US_ITS ---
PROCEDURE: Ultrasound guided paracentesis. DATE OF EXAMINATION: June 07, 2022. INDICATION: Female, 81 years old. Ascites. PHYSICIAN: Mahad Rojas M.D. TECHNIQUE: The risks, benefits, and alternatives to the procedure were explained to the patient. The specific risks of bleeding, infection, and damage to bowel were detailed and accepted. Witnessed informed consent was obtained. The abdomen was ultrasonographically surveyed. An appropriate pocket of fluid was identified at the right lower quadrant. The skin were cleaned and prepped in the usual sterile fashion. Using ultrasound guidance, the peritoneal cavity was accessed with a 5-Kinyarwanda paracentesis needle/catheter system. The trocar was removed. A total of 2150 ml of maegan-colored fluid were removed from the peritoneal cavity. The catheter was removed and a sterile dressing was applied. The procedure was well tolerated. US/Thoracentesis W US IMPRESSION: Ultrasound guided paracentesis. Electronically Signed: Mahad Rojas MD at 9:50 EST ,
[2022-06-07 08:15] VITALS: BP 106/43; BP 111/47; BP 94/37; BP 97/36; BP 98/38; BP 99/42; BP 99/43; PULSE 56; PULSE 59; PULSE 60; PULSE 61; PULSE 65; PULSE 79; RESP 18; TEMP 35.9; O2SAT 100; O2SAT 95; O2SAT 97; O2SAT 98; O2SAT 99
[2022-06-07] MEDS: Lidocaine 2% (20 ml mdv) 20 ML Vial INFILT (08:24)
--- NOTE | 2022-06-07 08:35 | RAD_ITS ---
STUDY: X-RAY CHEST REASON FOR EXAM: Female, 81 years old. Pneumothorax -- immediately post thoracentesis TECHNIQUE: AP inspiration and expiration views. COMPARISON: Comparison is made with prior study of June 05, 2022. FINDINGS: The patient is status post thoracentesis. Minimal blunting of the right costophrenic angle persists. There is no evidence of pneumothorax. RAD/Chest Insp/Exp 2 View IMPRESSION: No evidence of pneumothorax. Minimal residual blunting of the right costophrenic angle. Electronically Signed: Mahad Rojas MD at 9:35 EST ,
== END | disposition home or self-care (01) ==
PROVIDERS: PCP Internal Medicine
DX: C91.10 Chronic lymphocytic leukemia of B-cell type not having achieved remission (principal); J95.811 Postprocedural pneumothorax
CPT/HCPCS: 32555; 71046

== ENCOUNTER → 2022-06-11 | Outpatient (CLI) | payer MEDICARE, OTHER, SELFPAY ==
--- NOTE | 2022-06-11 13:34 | US_ITS ---
EXAM: Fluoroscopically guided thoracentesis HISTORY: CHRONIC LYMPOCYTIC LEUKEMIA, difficulty breathing, right pleural effusion COMPARISON: None Technique: Ultrasound-guided FINDINGS: After informed consent was obtained, which included discussion of risks and benefits of the procedure including pneumothorax and chest tube placement, an appropriate site for thoracentesis was determined using sonographic guidance. The area was prepped and draped in a sterile manner and 1% lidocaine was used as local anesthetic. Under sonographic guidance, a valved Yeuh drainage catheter was advanced into the right hemithorax without difficulty. Approximately 2600 mL of red-tinged serous fluid was withdrawn from the right hemithorax without difficulty. Patient tolerated procedure well. A post procedural chest x-ray however did show a small right apical pneumothorax estimated at 5% or less of the right hemithorax and there was no mediastinal shift. US/Thoracentesis W US IMPRESSION: Successful sonographically guided thoracentesis, minimal right pneumothorax noted after the procedure Electronically Signed: Flip Felix MD at 14:58 EDT ,
[2022-06-11] MEDS: Lidocaine 2% (20 ml mdv) 20 ML Vial INFILT (13:57)
--- NOTE | 2022-06-11 14:11 | RAD_ITS ---
STUDY: X-RAY CHEST REASON FOR EXAM: Female, 81 years old. Postthoracentesis TECHNIQUE: 2 AP portable views, one in inspiration, one in expiration. COMPARISON: 06/07/2022 FINDINGS: There is a tiny, less than 5% right apical pneumothorax present after thoracentesis, no evidence of mediastinal shift. Lungs are otherwise clear and well expanded with near complete resolution of the previously noted large right pleural effusion. Normal size heart. Normal mediastinum and juan manuel. Normal visualized pulmonary arteries. Normal visualized aortic arch and descending thoracic aorta. There are diffuse degenerative changes of the visualized thoracic spine. Normal visualized ribs, clavicles, and shoulders. There is no demonstrated abnormality of the visualized soft tissue structures of the upper abdomen. RAD/Chest Insp/Exp 2 View IMPRESSION: Tiny right apical pneumothorax after thoracentesis, approximate 5% without mediastinal shift. Near complete resolution of the previous noted large right pleural effusion. Only a small residual right pleural effusion remains. Left lung is clear Electronically Signed: Flip Felix MD at 14:29 EDT ,
[2022-06-11 14:38] VITALS: BP 104/72; BP 107/64; BP 109/71; BP 111/63; BP 87/52; PULSE 91; PULSE 94; PULSE 97; RESP 18; TEMP 36.5; O2SAT 97; O2SAT 98; O2SAT 99
== END | disposition home or self-care (01) ==
PROVIDERS: PCP Internal Medicine; Visit Provider Internal Medicine Hematology & Oncology
DX: C91.10 Chronic lymphocytic leukemia of B-cell type not having achieved remission (principal)
CPT/HCPCS: 32555; 71046

== ENCOUNTER → 2022-06-13 | Outpatient (CLI) | payer MEDICARE, OTHER, SELFPAY ==
--- NOTE | 2022-06-13 12:08 | US_ITS ---
EXAM: US Abdomen Limited (quadrant) HISTORY: CHRONIC LYMPHOCYTIC LEUKEMIA COMPARISON: None Technique: Limited ultrasound of the abdomen to assess for possible ascites and paracentesis FINDINGS: No need to perform a paracentesis as there was no significant anechoic ascites noted within the abdomen or pelvis in the 4 quadrants visualized. US/Abdomen Limited IMPRESSION: Limited abdominal sonogram shows no significant ascites Electronically Signed: Flip Felix MD at 13:21 EDT ,
--- NOTE | 2022-06-13 12:25 | RAD_ITS ---
STUDY: X-RAY CHEST REASON FOR EXAM: Female, 81 years old. prior to thoracentesis TECHNIQUE: Single AP portable view of the chest. COMPARISON: 06/11/2022. FINDINGS: A previously noted small right apical pneumothorax has increased in size since the previous study now affecting approximately 10% of the right hemithorax. There is no mediastinal shift, and the patient is not overly short of breath. Nonetheless, the thoracentesis scheduled for today will be postponed. The left lung is clear and normally expanded. There is opacification the right lung base are likely combination of effusion and atelectasis. Normal size heart. Normal mediastinum and juan manuel. Normal visualized pulmonary arteries. Normal visualized aortic arch and descending thoracic aorta. There are diffuse degenerative changes of the visualized thoracic spine. There is degenerative osteoarthritis of the bilateral shoulders. There is no demonstrated abnormality of the visualized soft tissue structures of the upper abdomen. RAD/Chest 1 View IMPRESSION: Previous noted right pneumothorax is increased in size and now affects approximately 10% of the right hemithorax without mediastinal shift. Scheduled thoracentesis will be postponed until Saturday Right pleural effusion with associated atelectasis Left lung is clear Electronically Signed: Flip Felix MD at 12:54 EDT ,
== END | disposition home or self-care (01) ==
PROVIDERS: PCP Internal Medicine; Referring Provider Nurse Practitioner Family; Visit Provider Internal Medicine Hematology & Oncology
DX: C91.10 Chronic lymphocytic leukemia of B-cell type not having achieved remission (principal)
CPT/HCPCS: 32554; 71045; 76705

== ENCOUNTER → 2022-06-15 | Outpatient (CLI) | payer MEDICARE, OTHER, SELFPAY ==
--- NOTE | 2022-06-15 08:20 | RAD_ITS ---
STUDY: X-RAY CHEST REASON FOR EXAM: Female, 81 years old. Right-sided chest pain, known pneumothorax TECHNIQUE: Single AP portable view of the chest. COMPARISON: 06/13/2022 FINDINGS: The previously noted right apical pneumothorax has decreased in size since the previous study has returned to less than 5% of the right hemithorax and there is no mediastinal shift. There has been a slight increase in size of the right pleural effusion since the previous study, if there is large enough effusion to safely perform thoracentesis, it will be performed today. Left lung is free of a superimposed process. Normal size heart with stable appearance of the aortic valve stent. Normal mediastinum and juan manuel. Normal visualized pulmonary arteries. Normal visualized aortic arch and descending thoracic aorta. Normal visualized thoracic spine. Normal visualized ribs, clavicles, and shoulders. There is no demonstrated abnormality of the visualized soft tissue structures of the upper abdomen. RAD/Chest 1 View (Portable) IMPRESSION: Previous noted right pneumothorax has decreased in size since the previous study and occupies less than 5% of the right hemithorax. Thoracentesis will be performed if there is a large enough pleural effusion, for the exam to be performed safely There has been an increase in size of the previous noted right pleural effusion Left lung is free of a superimposed process Electronically Signed: Flip Felix MD at 8:43 EDT ,
--- NOTE | 2022-06-15 08:30 | US_ITS ---
EXAM: Ultrasound-guided thoracentesis HISTORY: CHRONIC LYMPHOCYTIC LEUKEMIA, right pleural effusion COMPARISON: None FINDINGS: The preprocedural chest x-ray showed a persistent though tiny right pneumothorax. Risks and benefits of the procedure were discussed with the patient including the possibility of increasing the size of the right pneumothorax and the possibility of chest tube insertion. Patient agreed to proceed. Appropriate site for thoracentesis was determined using sonographic guidance The area was prepped and draped in a sterile manner, 2% Xylocaine was used as local anesthetic. Under sonographic guidance, a 14-gauge valved drainage catheter was advanced into the right hemithorax, fluid return noted. Approximately 1680 mL of red-tinged serous fluid was withdrawn from the right hemithorax. Patient tolerated the procedure well with no immediate complications. Post procedural chest x-ray showed persistence of the small right apical pneumothorax, but it has not increased in size from the preprocedural study. US/Thoracentesis W US IMPRESSION: Successful sonographically guided thoracentesis Electronically Signed: Flip Felix MD at 10:21 EDT ,
[2022-06-15 09:25] VITALS: BP 105/64; BP 108/63; BP 118/62; BP 120/66; PULSE 86; PULSE 87; PULSE 88; PULSE 89; RESP 16; RESP 18; TEMP 36.6; O2SAT 96; O2SAT 97; O2SAT 98; O2SAT 99
[2022-06-15] MEDS: Lidocaine 2% (20 ml mdv) 20 ML Vial INFILT (09:30)
--- NOTE | 2022-06-15 09:35 | RAD_ITS ---
STUDY: X-RAY CHEST REASON FOR EXAM: Female, 81 years old. Postthoracentesis TECHNIQUE: Portable inspiratory and expiratory views COMPARISON: Earlier today FINDINGS: Persistence of a small right apical pneumothorax after thoracentesis. It is essentially unchanged from the pneumothorax noted preprocedurally. There is no mediastinal shift. Approximate size of the pneumothorax is 5% of the right hemithorax. Lungs are clear and well-expanded, previous noted right pleural effusion has resolved after thoracentesis Normal size heart. Normal mediastinum and juan manuel. Normal visualized pulmonary arteries. Normal visualized aortic arch and descending thoracic aorta. Normal visualized thoracic spine. Normal visualized ribs, clavicles, and shoulders. There is no demonstrated abnormality of the visualized soft tissue structures of the upper abdomen. RAD/Chest Insp/Exp 2 View IMPRESSION: Stable 5% or less right apical pneumothorax without mediastinal shift. Resolution of right pleural effusion after thoracentesis Electronically Signed: Flip Felix MD at 10:30 EDT ,
== END | disposition home or self-care (01) ==
PROVIDERS: PCP Internal Medicine; Referring Provider Nurse Practitioner Family; Visit Provider Nurse Practitioner Family
DX: J95.811 Postprocedural pneumothorax (principal); R07.89 Other chest pain; J90 Pleural effusion, not elsewhere classified
CPT/HCPCS: 32555; 71045; 71046

== ENCOUNTER → 2022-06-22 | Outpatient (CLI) | payer MEDICARE, OTHER, SELFPAY ==
--- NOTE | 2022-06-22 13:39 | US_ITS ---
PROCEDURE: ULTRASOUND GUIDED THORACENTESIS. DATE: June 22, 2022.. INDICATION: Female, 81 years old. Right pleural effusion. PHYSICIAN: Mahad Rojas M.D. PROCEDURE: The risks, benefits, and alternatives to the procedure were explained to the patient. The specific risks of bleeding, infection, and pneumothorax requiring chest tube insertion were discussed and accepted. Written informed consent was obtained. Ultrasonographic evaluation of the right lower pleural space was carried out. An adequate pocket was identified. The patient was placed in the sitting, upright position. The overlying skin was prepped and draped in sterile fashion. 1% lidocaine was administered subcutaneously for local anesthesia. Under ultrasound guidance, a 5 Latvian thoracentesis needle/catheter system was advanced into the right posterior lower pleural fluid collection. Approximately 1970 mL of maegan-colored fluid was drained. The catheter was removed, and a sterile dressing was applied. The patient tolerated the procedure well. A chest x-ray was ordered. US/Thoracentesis W US IMPRESSION: Ultrasound-guided right thoracentesis. Electronically Signed: Mahad Rojas MD at 14:41 EDT ,
--- NOTE | 2022-06-22 13:45 | RAD_ITS ---
STUDY: X-RAY CHEST REASON FOR EXAM: Female, 81 years old. Post thora TECHNIQUE: AP inspiration and expiration views. COMPARISON: Comparison is made with prior study of June 15, 2022. FINDINGS: The patient is status post right thoracentesis. There is no evidence of pneumothorax. _ RAD/Chest Insp/Exp 2 View IMPRESSION: No evidence of pneumothorax on the post right thoracentesis imaging. Electronically Signed: Mahad Rojas MD at 15:30 EDT ,
[2022-06-22] MEDS: Lidocaine 2% (20 ml mdv) 20 ML Vial INFILT (14:05)
[2022-06-22 14:29] VITALS: BP 109/69; BP 112/62; BP 113/62; BP 113/64; BP 135/98; PULSE 69; PULSE 72; PULSE 73; RESP 16; RESP 18; O2SAT 100; O2SAT 98; O2SAT 99
== END | disposition home or self-care (01) ==
LOC: US 13:38
PROVIDERS: PCP Internal Medicine; Visit Provider Nurse Practitioner Family
DX: C91.10 Chronic lymphocytic leukemia of B-cell type not having achieved remission (principal)
CPT/HCPCS: 32555; 71046

== ENCOUNTER → 2022-06-25 | Outpatient (CLI) | payer MEDICARE, OTHER, SELFPAY ==
--- NOTE | 2022-06-25 14:28 | US_ITS ---
PROCEDURE: ULTRASOUND GUIDED THORACENTESIS. DATE: June 25, 2022. INDICATION: Female, 81 years old. Right pleural effusion. PHYSICIAN: Mahad Rojas M.D. PROCEDURE: The risks, benefits, and alternatives to the procedure were explained to the patient. The specific risks of bleeding, infection, and pneumothorax requiring chest tube insertion were discussed and accepted. Written informed consent was obtained. Ultrasonographic evaluation of the right lower pleural space was carried out. An adequate pocket was identified. The patient was placed in the sitting, upright position. The overlying skin was prepped and draped in sterile fashion. 1% lidocaine was administered subcutaneously for local anesthesia. Under ultrasound guidance, a 5 Uzbek thoracentesis needle/catheter system was advanced into the right posterior lower pleural fluid collection. Approximately 1900 mL of maegan-colored fluid was drained. The catheter was removed, and a sterile dressing was applied. The patient tolerated the procedure well. A chest x-ray was ordered. US/Thoracentesis W US IMPRESSION: Ultrasound-guided right thoracentesis. Electronically Signed: Mahad Rojas MD at 15:40 EDT ,
[2022-06-25 15:05] VITALS: BP 108/54; BP 112/59; BP 95/46; BP 95/53; PULSE 66; PULSE 68; PULSE 71; PULSE 72; RESP 16; RESP 18; TEMP 36.2; O2SAT 96; O2SAT 98
[2022-06-25] MEDS: Lidocaine 2% (20 ml mdv) 20 ML Vial INFILT (15:15)
--- NOTE | 2022-06-25 15:24 | RAD_ITS ---
STUDY: X-RAY CHEST REASON FOR EXAM: Female, 81 years old. Pneumothorax -- immediately post thoracentesis TECHNIQUE: AP inspiration and expiration views following a right thoracentesis. COMPARISON: Comparison is made with prior study done earlier in the day. FINDINGS: There is no evidence of pneumothorax on the immediate post right thoracentesis. RAD/Chest Insp/Exp 2 View IMPRESSION: No evidence of pneumothorax on the post right thoracentesis. Electronically Signed: Mahad Rojas MD at 15:39 EDT ,
== END | disposition home or self-care (01) ==
LOC: US 14:28
PROVIDERS: PCP Internal Medicine; Visit Provider Nurse Practitioner Family
DX: J95.811 Postprocedural pneumothorax (principal); J90 Pleural effusion, not elsewhere classified
CPT/HCPCS: 32555; 71046

== ENCOUNTER 2022-06-29 20:34 | Emergency (ER) | payer MEDICARE, OTHER, SELFPAY ==
[2022-06-29 20:35] VITALS: BP 110/69; PULSE 70; RESP 16; TEMP 36.6; O2SAT 98; BMI 26.7
--- NOTE | 2022-06-29 20:38 | EKG12_ITS ---
Test Reason : CP Blood Pressure : / mmHG Vent. Rate : 063 BPM Atrial Rate : 063 BPM P-R Int : 154 ms QRS Dur : 074 ms QT Int : 428 ms P-R-T Axes : 073 023 063 degrees QTc Int : 437 ms Normal sinus rhythm Normal ECG Confirmed by JACOBO ALONZO, SHREYA ([id number]), supervising editor news reel NINFA GREEN ([id number]) on 07/02/2022 11:10:51 AM Referred By: PL Confirmed By:AVRIL CENTENO MD
[2022-06-29 21:00] LABS: Absolute Neutrophil Count 3.5 X10^3/uL (2.0-7.7); Basophil# 0.05 X10^3/uL; Basophil% 0.2 % (0-1); Eosinophil# 0.29 X10^3/uL; Eosinophils% 1.1 % (0-5); Hemoglobin 9.4 g/dL (12.0-15.0); Lymphocyte % 84.1 % (19-41); Mean Corp Hgb Conc 30.3 g/dL (32-36); Mean Corpuscular Hgb 29.3 pg (27.0-32.0); Mean Corpuscular Volume 96.6 fL (81-99); Mean Platelet Vol. 9.6 fl (6.2-12.0); Monocyte# 0.29 X10^3/uL; Monocyte% 1.1 % (0-10); NRBC Flagged by Analyzer 0 % (0-5); Neutrophil # 3.54 X10^3/uL (2.7-7.7); Neutrophil % 13.3 % (47-70); POSITIVE DIFFERENTIAL YES; POSITIVE MORPHOLOGY YES; Platelet Count 162 K/mm3 (150-450); RBC Distribution Width CV 20.5 % (11.6-14.6); RBC Distribution Width SD 70.4 fl (35.1-43.9); Red Blood Count 3.21 M/mm3 (4.2-5.4); White Blood Count 26.5 K/mm3 (4.4-11.0)
--- NOTE | 2022-06-29 21:00 | RAD_ITS ---
INDICATION: chest pain EXAMINATION/TECHNIQUE: X-RAY - XR Chest 1 View COMPARISON: 06/29/2022 at 10:54 hours. FINDINGS: LINES/DEVICES: None. LUNGS: No consolidation, edema or effusion. No pneumothorax. MEDIASTINUM AND CARDIOVASCULAR STRUCTURES: Cardiac silhouette not enlarged. There is an aortic stent in place. Central airways and mediastinal contour are unremarkable. BONES AND SOFT TISSUES: Unremarkable. RAD/Chest 1 View (Portable) IMPRESSION: No radiographic evidence of acute cardiopulmonary disease. Electronically Signed: Rohit Calixto DO at 22:43 EDT ,
[2022-06-29 21:07] LABS: Differential Indicated SCAN CRITERIA MET
[2022-06-29 21:19] LABS: Anion Gap 2 (5-15); BUN 23 mg/dL (7-18); BUN/Creat Ratio 24.4 RATIO (10-20); Calcium,Total 7.7 mg/dL (8.5-10.1); Chloride 106 mmol/L (98-107); Creatinine, Serum 0.94 mg/dL (0.55-1.02); EST Glomerular Filtration Rate 60 mL/min (>60); Est Glom Filt Rate - Afr Amer 73 mL/min (>60); Estimated Creatinine Clearance 42.29 ml/min; Glucose 101 mg/dL (74-106); Potassium 4.2 mmol/L (3.5-5.1); Sodium Level 135 mmol/L (136-145); Troponin-I HS (w/2H Reflex) 20 pg/mL (3.0-54.0)
[2022-06-29 21:22] LABS: Prothrombin Time (Protime)PT. 12.8 SECONDS (11.7-14.9)
[2022-06-29 22:04] LABS: Smudge Cells 2+
--- NOTE | 2022-06-29 22:12 | ED.VIS.CHEST ---
HPI History of Present Illness Chief Complaint: Chest Pain Informant: patient Onset/Context/Timing Onset: Today Narrative Narrative: Patient presents secondary to an episode of chest pain. Pain started around 8:15 PM and lasted approximately 30 minutes. She reportedly took 2 full aspirin at home and Tums. In route to the hospital the pain seemed to subside. While in triage she states she did belch but pain had subsided prior to this. She did have dinner shortly prior to onset of pain and she is unsure if this might be reflux related. She denies shortness of breath. She is pain-free at this time. Patient does have history of aortic valve replacement. She denies known history of coronary artery disease. I did find a heart cath from September 2021 at which time she was noted to have a 25% stenosis of the mid LAD with single-vessel disease only. [facility] Medical History Acute maxillary sinusitis, unspecified Acute sinusitis Anxiety Aortic regurgitation Aortic stenosis CKD (chronic kidney disease) CLL (chronic lymphocytic leukemia) Contact with and (suspected) exposure to other viral communicable diseases Contusion of left hand including fingers Diarrhea Elevated blood pressure reading in office without diagnosis of hypertension Elevated TSH Glaucoma Hematuria History of right and left heart catheterization (LHC) (~09/29/21) Hypotension Incontinence Limb weakness Mixed hyperlipidemia Nonrheumatic aortic (valve) stenosis with insufficiency Pelvic mass Post herpetic neuralgia Preop exam for internal medicine Recurrent right pleural effusion Shoulder pain Strain of right trapezius muscle Tinnitus Urinary tract infection with hematuria UTI (urinary tract infection) Home Medications aspirin 81 mg tablet,delayed release 81 mg PO DAILY #1 TAB 09/14/21 [Rx Last Taken 04/26/22] ferrous sulfate 325 mg (65 mg iron) tablet 325 mg PO QODAY 01/29/22 [History Last Taken 04/25/22] midodrine 5 mg tablet 10 mg PO TID 30 days #180 tabs 05/31/22 [Rx Last Taken Unknown] ondansetron 4 mg disintegrating tablet 4 mg PO Q8H PRN nausea and vomiting #20 tabs 05/31/22 [Rx Last Taken Unknown] escitalopram oxalate 5 mg tablet (Lexapro) 5 mg PO DAILY PRN PRN Anxiety 06/29/22 [History Last Taken Unknown] Allergy/AdvReac Type Severity Reaction Status Date / Time cephalexin [From Keflex] Allergy Severe Other Verified 06/29/22 20:36 Family History Other Colon cancer Diabetes Myocardial infarction Surgical History History of bilateral cataract extraction History of transcatheter aortic valve replacement (TAVR) (~12/14/21) Social History household members: other details: number of children: 4 current occupational status: employed current occupation: [employer] Smoking Status: Former smoker alcohol intake: never substance use type: does not use caffeine: Yes Type: tea Number of servings: 1 ROS ROS ED Constitutional Constitutional ED: Denies chills or fever(s) Eyes Eyes: Denies change in vision or discharge from eye(s) ENT ENT ED: Denies discharge from eye(s), rhinorrhea or sore throat Cardiovascular Cardiovascular: Reports chest pain; Denies palpitations Respiratory/Chest Respiratory/Chest: Denies cough or dyspnea Gastrointestinal Gastrointestinal: Denies abdominal pain, diarrhea, nausea or vomiting Genitourinary Genitourinary ED: Denies difficulty urinating or dysuria Musculoskeletal Musculoskeletal: Denies back pain or extremity pain Integumentary Denies Abrasions or rash Neurologic Neurologic: Denies headache(s) or weakness Psychiatric Psychiatric: Denies anxiety or depression Allergic/Immunologic Allergic/Immunologic ED: Denies lip swelling or urticaria EXAM Physical Exam Const Vital Signs: 06/29/22 20:35 06/29/22 20:51 06/29/22 23:51 Temperature 98 F Temperature Source Temporal Pulse Rate 70 76 Respiratory Rate 16 18 Blood Pressure 110/69 Blood Pressure Mean 82 Pulse Ox 98 98 Oxygen Delivery Method Room Air Room Air Positive well nourished and well developed General Appearance ED: well developed HEENT Reports normocephalic and head/scalp atraumatic Eyes PERRL and EOMs intact bilaterally Neck supple Chest Wall inspection of chest normal and palpation of chest normal Resp normal respiratory effort and clear to auscultation bilaterally Cardio regular rate and regular rhythm GI soft to palpation and non-tender Extremity normal to inspection Neuro oriented x3 and no sensory deficits noted Sensorium / Orientation: alert Motor Exam: strength 5/5 throughout Psych mental status grossly normal Skin no rashes or lesions noted Heart Score History: Slightly/Non-Suspicious ECG: Normal Age: >/= 65 years Risk Factors: 1 or 2 Risk Factors Troponin: </= Normal Limit Score: 3 MDM MDM MDM Narrative Medical decision making narrative: Patient had taken aspirin prior to arrival so therefore no aspirin given. Patient placed on cardiac catheterization technician. Labwork obtained to evaluate for leukocytosis, anemia, and electrolyte derangement. EKG obtained to evaluate for cardiac arrhythmia/ischemia. Chest x-ray obtained to evaluate for acute lung pathology, cardiac size, or mediastinal abnormality. History & Record Review Discussion w/independent historian: Patient and Family Lab Data Attestation: I reviewed the patient's lab results. Labs: Laboratory Results - last 24 hr 06/29/22 06/29/22 06/29/22 20:52 20:52 20:52 WBC 26.5 H RBC 3.21 L Hgb 9.4 L Hct 31.0 L MCV 96.6 MCH 29.3 MCHC 30.3 L RDW Std Deviation 70.4 H RDW Coeff of Zack 20.5 H Plt Count 162 MPV 9.6 Immature Gran % (Auto) 0.200 Neut % (Auto) 13.3 L Lymph % (Auto) 84.1 H [place] % (Auto) 1.1 Eos % (Auto) 1.1 Baso % (Auto) 0.2 Absolute Neuts (auto) 3.5 Absolute Lymphs (auto) 22.30 H Nucleated RBC % 0 Differential Comment SCANNED Diff Path Review May foll Smudge Cells 2+ Anisocytosis 2+ Microcytosis 1+ Macrocytosis 1+ PT 12.8 INR 1.0 Sodium 135 L Potassium 4.2 Chloride 106 Carbon Dioxide 27.0 Anion Gap 2 L BUN 23 H Creatinine 0.94 Estim Creat Clear Calc 42.29 Est GFR (MDRD) Af Amer 73 Est GFR (MDRD) Non-Af 60 BUN/Creatinine Ratio 24.4 H Glucose 101 Calcium 7.7 L Troponin I High Sens Cancelled 06/29/22 06/29/22 20:52 23:00 WBC RBC Hgb Hct MCV MCH MCHC RDW Std Deviation RDW Coeff of Zack Plt Count MPV Immature Gran % (Auto) Neut % (Auto) Lymph % (Auto) [place] % (Auto) Eos % (Auto) Baso % (Auto) Absolute Neuts (auto) Absolute Lymphs (auto) Nucleated RBC % Differential Comment Diff Path Review Smudge Cells Anisocytosis Microcytosis Macrocytosis PT INR Sodium Potassium Chloride Carbon Dioxide Anion Gap BUN Creatinine Estim Creat Clear Calc Est GFR (MDRD) Af Amer Est GFR (MDRD) Non-Af BUN/Creatinine Ratio Glucose Calcium Troponin I High Sens 20 21 Radiography Chest X-Ray - ED: 1 View, Read by ED Physician and Chronic Changes Diagnostic Testing: Clinical Impression(s) from Imaging Studies Chest X-Ray 06/29/22 21:00 IMPRESSION: No radiographic evidence of acute cardiopulmonary disease. Electronically Signed: Rohit Calixto DO at 22:43 EDT Reading Location ID and State: [facility] / [place] Tel [phone], Service support , EKG Initial EKG: Attestation: I personally reviewed and interpreted this EKG as follows: Interpretation: Sinus Rhythm (Sinus at 63 with no acute ischemia) Treatment and Re-Evaluation :: EKG reveals no evidence of acute ischemia. Chest x-ray per my interpretation was chronic changes with no acute findings. CBC reveals a white count of 26.5, but patient does have history of CLL and this is actually improved when compared to prior values. Chemistry studies unremarkable. Coags normal. Initial troponin is 20 with a 2-hour repeat at 21. Patient has had no further symptoms while in the emergency room. With 2 normal troponins I do feel she can safely be discharged to home. I was also able to review her cardiac cath from September of last year at which point it was noted she only had single-vessel disease with a 25% lesion in the mid LAD. Patient and family are comfortable with the plan. Return instructions provided. Discharge Plan Triage Chief Complaint: Chest Pain ED Provider: Monica Dueñas Dx/Rx/DC Orders Clinical Impression: Chest pain Instructions: ED Chest Pain, Uncertain Cause Prescriptions: No Action aspirin 81 mg tablet,delayed release (DR/EC) 81 mg PO DAILY Qty: 1 0RF ferrous sulfate 325 mg (65 mg iron) tablet 325 mg PO QODAY midodrine 5 mg Tablet 10 mg PO TID 30 Days Qty: 180 0RF ondansetron 4 mg tablet,disintegrating 4 mg PO Q8H PRN (Reason: nausea and vomiting) Qty: 20 0RF escitalopram oxalate [Lexapro] 5 mg tablet 5 mg PO DAILY PRN PRN (Reason: Anxiety) Primary Care Provider: Megan Bernardo Referrals: Megan Bernardo MD [Primary Care Provider] - 5-7 Days Disposition Disposition: Home, Self Care Discharge Date/Time: 06/29/22 23:51
[2022-06-29 22:19] LABS: Differential Comment SCANNED
[2022-06-29 22:20] LABS: Anisocytosis 2+; Macrocytosis 1+; Microcytosis 1+
[2022-06-29 23:00] LABS: Reflex Troponin-HS? (from REC) Y
[2022-06-29 23:28] LABS: Troponin-I HS 21 pg/mL (3.0-54.0)
[2022-06-29 23:51] VITALS: PULSE 76; RESP 18; O2SAT 98
[2022-07-02 13:05] LABS: Pathologist Review Reviewed
== END 2022-06-29 23:51 | disposition home or self-care (01) ==
PROVIDERS: Emergency Provider Emergency Medicine; PCP Internal Medicine; Visit Provider Emergency Medicine
DX: R07.9 Chest pain, unspecified (principal); N18.9 Chronic kidney disease, unspecified; Z87.891 Personal history of nicotine dependence; E78.2 Mixed hyperlipidemia; Z79.82 Long term (current) use of aspirin; J95.811 Postprocedural pneumothorax; J90 Pleural effusion, not elsewhere classified
CPT/HCPCS: 32555; 71045; 71046; 80048; 84484; 85025; 85610; 93005; 99283; A4216

== ENCOUNTER → 2022-06-29 | Outpatient (CLI) | payer MEDICARE, OTHER, SELFPAY ==
--- NOTE | 2022-06-29 10:30 | US_ITS ---
PROCEDURE: ULTRASOUND GUIDED THORACENTESIS. DATE: June 29, 2022. INDICATION: Female, 81 years old. Right pleural effusion. PHYSICIAN: Mahad Rojas M.D. PROCEDURE: The risks, benefits, and alternatives to the procedure were explained to the patient. The specific risks of bleeding, infection, and pneumothorax requiring chest tube insertion were discussed and accepted. Written informed consent was obtained. Ultrasonographic evaluation of the right lower pleural space was carried out. An adequate pocket was identified. The patient was placed in the sitting, upright position. The overlying skin was prepped and draped in sterile fashion. 1% lidocaine was administered subcutaneously for local anesthesia. Under ultrasound guidance, a 5 Greek thoracentesis needle/catheter system was advanced into the right posterior lower pleural fluid collection. Approximately 1660 mL of maegan-colored fluid fluid was drained. The catheter was removed, and a sterile dressing was applied. The patient tolerated the procedure well. A chest x-ray was ordered. US/Thoracentesis W US IMPRESSION: Ultrasound-guided right thoracentesis. Electronically Signed: Mahad Rojas MD at 12:08 EDT ,
[2022-06-29] MEDS: Lidocaine 2% (20 ml mdv) 20 ML Vial INFILT (10:48)
--- NOTE | 2022-06-29 10:55 | RAD_ITS ---
STUDY: X-RAY CHEST REASON FOR EXAM: Female, 81 years old. Pneumothorax -- immediately post thoracentesis TECHNIQUE: AP and special expiration views. COMPARISON: Comparison is made with prior study dated June 25, 2022. FINDINGS: The patient is status post right thoracentesis. There is no evidence of pneumothorax. RAD/Chest Insp/Exp 2 View IMPRESSION: No evidence of pneumothorax on the post right thoracentesis images. Electronically Signed: Mahad Rojas MD at 11:51 EDT ,
[2022-06-29 11:17] VITALS: BP 115/62; BP 118/52; PULSE 75; PULSE 79; RESP 18; TEMP 36.6; O2SAT 99
== END | disposition home or self-care (01) ==
LOC: US 10:29
PROVIDERS: PCP Internal Medicine; Referring Provider Nurse Practitioner Family; Visit Provider Nurse Practitioner Family
DX: J95.811 Postprocedural pneumothorax (principal); J90 Pleural effusion, not elsewhere classified
CPT/HCPCS: 32555; 71046

== ENCOUNTER → 2022-07-17 | Outpatient (CLI) | payer MEDICARE, OTHER, SELFPAY ==
--- NOTE | 2022-07-17 13:58 | VDLE_ITS ---
Reason For Study: LEG SWELLING RIGHT LEFT GSV is normal. GSV is normal. CFV is compressible, spontaneous, phasic, CFV is compressible, spontaneous, phasic, competent and demonstrates normal competent, and demonstrates normal augmentation. augmentation. FV is compressible, spontaneous, phasic, FV is compressible, spontaneous, phasic, competent and demonstrates normal competent and demonstrates normal augmentation. augmentation. POP V is compressible, spontaneous, phasic, POP V is compressible, spontaneous, phasic, competent and demonstrates normal competent and demonstrates normal augmentation. augmentation. T/P Trunk is compressible. T/P Trunk is compressible. PTV is compressible. PTV is compressible. RT PerV is compressible. LT PerV is compressible. Procedure This is a venous duplex using B-mode, color flow and spectral Doppler. Exam performed in department. The exam was diagnostic. A preliminary report was called and/or faxed to Dr. Patricio's office. VL/Venous Duplex US - Leo Extrem Interpretation Summary No evidence for acute deep venous thrombosis bilateral lower extremities with p atent and compressible bilateral great saphenous veins. Ordering Physician: Maurice Patricio Referring Physician: Megan Bernardo M.D. Performed By: Henry Daniels RVT
== END | disposition home or self-care (01) ==
LOC: CVS 13:55
PROVIDERS: PCP Internal Medicine; Referring Provider Internal Medicine Hematology & Oncology; Visit Provider Internal Medicine Hematology & Oncology
DX: C55 Malignant neoplasm of uterus, part unspecified (principal); M79.89 Other specified soft tissue disorders
CPT/HCPCS: 93970

== ENCOUNTER → 2022-11-27 | Outpatient (CLI) | payer MEDICARE, OTHER, SELFPAY ==
[2022-11-27 11:12] LABS: Absolute Lymphocyte Count 7.52 X10^3/uL (0.83-4.51); Absolute Neutrophil Count 0.8 X10^3/uL (2.0-7.7); Basophil# 0.02 X10^3/uL; Basophil% 0.2 % (0-1); Eosinophil# 0.01 X10^3/uL; Eosinophils% 0.1 % (0-5); Hematocrit 28.9 % (37-47); Hemoglobin 8.8 g/dL (12.0-15.0); Lymphocyte # 7.52 X10^3/ul (0.83-4.51); Lymphocyte % 86.5 % (19-41); Mean Corp Hgb Conc 30.4 g/dL (32-36); Mean Corpuscular Hgb 31.3 pg (27.0-32.0); Mean Corpuscular Volume 102.8 fL (81-99); Mean Platelet Vol. 11.4 fl (6.2-12.0); Monocyte# 0.32 X10^3/uL; Monocyte% 3.7 % (0-10); NRBC Flagged by Analyzer 0 % (0-5); Neutrophil # 0.81 X10^3/uL (2.7-7.7); Neutrophil % 9.4 % (47-70); POSITIVE COUNT YES; POSITIVE DIFFERENTIAL YES; Platelet Count 98 K/mm3 (150-450); RBC Distribution Width CV 13.3 % (11.6-14.6); RBC Distribution Width SD 49.8 fl (35.1-43.9); Red Blood Count 2.81 M/mm3 (4.2-5.4); White Blood Count 8.7 K/mm3 (4.4-11.0)
[2022-11-27 11:14] LABS: Differential Indicated SCAN CRITERIA MET
[2022-11-27 11:38] LABS: Platelet Estimate MOD DEC (ADEQ)
[2022-11-27 11:46] LABS: ALB/GLOB Ratio 0.9 RATIO (0.9-2.4); AST(SGOT) 16 U/L (15-37); Alanine Aminotransfer ALT/SGPT 16 U/L (13-56); Albumin, Serum 3.2 g/dL (3.2-5.0); Alkaline Phosphatase 78 U/L (45-117); Anion Gap 10 (5-15); BUN 28 mg/dL (7-18); BUN/Creat Ratio 24.3 RATIO (10-20); Calcium,Total 8.7 mg/dL (8.5-10.1); Chloride 109 mmol/L (98-107); Cholesterol 161 mg/dL (200); Creatinine, Serum 1.15 mg/dL (0.55-1.02); EST Glomerular Filtration Rate 48 mL/min (>60); Est Glom Filt Rate - Afr Amer 58 mL/min (>60); Globulin 3.5 g/dL (2.2-4.2); Glucose 89 mg/dL (74-106); High Density Lipoprotein 55 mg/dL; Potassium 3.6 mmol/L (3.5-5.1); Protein, Total 6.7 g/dL (6.4-8.2); Sodium Level 140 mmol/L (136-145); T4 Free Direct 0.88 ng/dL (0.76-1.46); Thyroid Stim Hormone (TSH) 4.86 uIU/mL (0.358-3.74); Triglycerides 123 mg/dL; Very Low Density Lipoprotein 25 mg/dL (5-40)
== END | disposition home or self-care (01) ==
LOC: LAB 09:49
PROVIDERS: PCP Internal Medicine; Referring Provider Internal Medicine; Visit Provider Internal Medicine
DX: E03.9 Hypothyroidism, unspecified (principal); C91.10 Chronic lymphocytic leukemia of B-cell type not having achieved remission; I10 Essential (primary) hypertension; E78.2 Mixed hyperlipidemia
CPT/HCPCS: 36415; 80053; 80061; 84439; 84443; 84481; 85025

== ENCOUNTER → 2023-04-02 | Outpatient (CLI) | payer MEDICARE, OTHER, SELFPAY ==
[2023-04-02 14:41] LABS: T4 Free Direct 0.98 ng/dL (0.76-1.46); Thyroid Stim Hormone (TSH) 4.39 uIU/mL (0.358-3.74)
== END | disposition home or self-care (01) ==
LOC: LAB 13:23
PROVIDERS: PCP Internal Medicine; Referring Provider Internal Medicine; Visit Provider Internal Medicine
DX: E03.9 Hypothyroidism, unspecified (principal)
CPT/HCPCS: 36415; 84439; 84443; 84481

== ENCOUNTER → 2023-07-23 | Outpatient (CLI) | payer MEDICARE, OTHER, SELFPAY ==
[2023-07-23 13:27] LABS: Free T3 1.3 pg/mL (2.18-3.98); T4 Free Direct 0.93 ng/dL (0.76-1.46); Thyroid Stim Hormone (TSH) 2.13 uIU/mL (0.358-3.74)
== END | disposition home or self-care (01) ==
LOC: LAB 10:48
PROVIDERS: PCP Internal Medicine; Referring Provider Internal Medicine; Visit Provider Internal Medicine
DX: E03.9 Hypothyroidism, unspecified (principal)
CPT/HCPCS: 36415; 84439; 84443; 84481

== ENCOUNTER → 2023-08-12 | Outpatient (CLI) | payer MEDICARE, OTHER, SELFPAY ==
--- NOTE | 2023-08-12 15:53 | RAD_ITS ---
INDICATION: Right wrist pain EXAMINATION/TECHNIQUE: X-RAY - RIGHT XR Wrist 2 Views COMPARISON: None. FINDINGS: 2 views of the right wrist. BONES: Normal anatomic alignment without evidence of fracture or subluxation. No concerning bony lesion or abnormal sclerosis to suggest lesion. JOINTS: Mild first CMC joint degenerative change. Mild radiocarpal degenerative change as well. SOFT TISSUES: Unremarkable. RAD/Wrist 2 Views IMPRESSION: Mild degenerative change as above without acute osseous abnormality of the right wrist. Electronically Signed: Reilly Burns MD at 3:20 EDT ,
== END | disposition home or self-care (01) ==
LOC: MTRAD 15:52
PROVIDERS: PCP Internal Medicine; Referring Provider Internal Medicine; Visit Provider Internal Medicine
DX: M25.531 Pain in right wrist (principal)
CPT/HCPCS: 73100

== ENCOUNTER → 2024-05-01 | Outpatient (CLI) | payer MEDICARE, OTHER, SELFPAY ==
[2024-05-01 14:22] LABS: Absolute Lymphocyte Count 10.03 X10^3/uL (0.83-4.51); Absolute Neutrophil Count 3.1 X10^3/uL (2.0-7.7); Basophil# 0.06 X10^3/uL; Basophil% 0.4 % (0-1); Eosinophil# 0.13 X10^3/uL; Eosinophils% 0.9 % (0-5); Hematocrit 37.3 % (37-47); Lymphocyte # 10.03 X10^3/ul (0.83-4.51); Lymphocyte % 69.5 % (19-41); Mean Corp Hgb Conc 32.2 g/dL (32-36); Mean Corpuscular Hgb 31.9 pg (27.0-32.0); Mean Corpuscular Volume 99.2 fL (81-99); Mean Platelet Vol. 9.8 fl (6.2-12.0); Monocyte# 1.06 X10^3/uL; Monocyte% 7.3 % (0-10); NRBC Flagged by Analyzer 0 % (0-5); Neutrophil # 3.14 X10^3/uL (2.7-7.7); Neutrophil % 21.8 % (47-70); POSITIVE DIFFERENTIAL YES; Platelet Count 177 K/mm3 (150-450); RBC Distribution Width CV 14.4 % (11.6-14.6); RBC Distribution Width SD 52.7 fl (35.1-43.9); Red Blood Count 3.76 M/mm3 (4.2-5.4); White Blood Count 14.4 K/mm3 (4.4-11.0)
[2024-05-01 14:24] LABS: Differential Indicated SCAN CRITERIA MET
[2024-05-01 15:05] LABS: ALB/GLOB Ratio 1.1 RATIO (0.9-2.4); AST(SGOT) 28 U/L (15-37); Alanine Aminotransfer ALT/SGPT 26 U/L (13-56); Albumin, Serum 3.5 g/dL (3.2-5.0); Alkaline Phosphatase 89 U/L (45-117); Anion Gap 6 (5-15); BUN 23 mg/dL (7-18); BUN/Creat Ratio 14.4 RATIO (10-20); Calcium,Total 8.6 mg/dL (8.5-10.1); Chloride 108 mmol/L (98-107); EST Glomerular Filtration Rate 33 mL/min (>60); Est Glom Filt Rate - Afr Amer 39 mL/min (>60); Free T3 2.4 pg/mL (2.18-3.98); Globulin 3.2 g/dL (2.2-4.2); Glucose 98 mg/dL (74-106); Magnesium 2.1 mg/dL (1.6-2.6); Potassium 4.4 mmol/L (3.5-5.1); Protein, Total 6.7 g/dL (6.4-8.2); Sodium Level 139 mmol/L (136-145); T4 Free Direct 1.07 ng/dL (0.76-1.46)
[2024-05-01 17:00] LABS: Differential Comment SCANNED
[2024-05-02 10:46] LABS: Vitamin D,25 Hydroxy 32.2 ng/mL
== END | disposition home or self-care (01) ==
LOC: LAB 13:42
PROVIDERS: PCP Internal Medicine; Referring Provider Internal Medicine; Visit Provider Internal Medicine
DX: C91.10 Chronic lymphocytic leukemia of B-cell type not having achieved remission (principal); C55 Malignant neoplasm of uterus, part unspecified; E87.6 Hypokalemia; I12.9 Hypertensive chronic kidney disease with stage 1 through stage 4 chronic kidney disease, or unspecified chronic kidney disease; N18.9 Chronic kidney disease, unspecified; E03.9 Hypothyroidism, unspecified; E55.9 Vitamin D deficiency, unspecified
CPT/HCPCS: 36415; 80053; 82306; 83735; 84439; 84443; 84481; 85025

== ENCOUNTER 2025-01-24 15:54 | Emergency (ER) | payer MEDICARE, OTHER, SELFPAY ==
[2025-01-24] VITALS (8 sets, daily range): BP systolic 113–164; BP diastolic 54–97; PULSE 52–63; RESP 13–21; TEMP 36.8; O2SAT 98–100; BMI 26.1
--- NOTE | 2025-01-24 16:13 | EDS_ITS ---
HPI History of Present Illness Chief Complaint: Chest Pain Informant: patient and family (Nephew) Narrative Narrative: 84-year-old female presenting to the emergency room for evaluation of chest pain. Patient states that 2 weeks ago she had some baked beans and afterwards had an uncomfortable feeling in her chest described as more is a heat sensation over the lower anterior chest. She states that it has been intermittent sometimes lasting 20 minutes and then gone for several hours. She states that she has not felt that now for about 30 minutes. She had it a couple times today. She has not felt much like eating over the past several days because she is afraid it is going to make it worse. She has a history of aortic valve replacement. She has a history of CLL and uterine cancer. She is on apixaban. She denies any vomiting but does endorse nausea. She has not ate much today. Daughter states that she told her to take a couple Tums and her symptoms have improved. She denies any leg symptoms. Patient had a heart cath with minimal LAD disease in 2021 [facility] Medical History Groin discomfort Cyst of right kidney Cyst of left kidney Fatty liver Recurrent right pleural effusion Pelvic mass Hypotension CLL (chronic lymphocytic leukemia) Anxiety Mixed hyperlipidemia Acute sinusitis CKD (chronic kidney disease) Contact with and (suspected) exposure to other viral communicable diseases Urinary tract infection with hematuria History of right and left heart catheterization (LHC) (~09/29/21) Nonrheumatic aortic (valve) stenosis with insufficiency Tinnitus Elevated TSH Preop exam for internal medicine Aortic regurgitation Aortic stenosis Elevated blood pressure reading in office without diagnosis of hypertension Glaucoma Contusion of left hand including fingers Acute maxillary sinusitis, unspecified Hematuria UTI (urinary tract infection) Post herpetic neuralgia Strain of right trapezius muscle Incontinence Limb weakness Diarrhea Shoulder pain Home Medications ?Medication ?Instructions ?Recorded ?Last Taken ?Type ferrous sulfate 325 mg (65 mg 325 mg PO QODAY 01/29/22 04/25/22 History iron) tablet Lactobacillus acidophilus 1 1,000 mmu cells PO DAILY 0 07/18/23 Unknown History billion cell capsule (Probiotic Gold Acidophilus) ascorbic acid (vitamin C) 500 mg 500 mg PO DAILY 07/17 Unknown History tablet cholecalciferol (vitamin D3) 25 25 mcg PO DAILY Unknown History mcg (1,000 unit) tablet pyridoxine (vitamin B6) 100 mg 100 mg PO DAILY 4 Unknown History tablet apixaban 5 mg tablet (Eliquis) 5 mg PO BID #180 tabs 0 04/07/24 Unknown Rx cranberry extract 200 mg capsule 200 mg PO QDAY Unknown History levothyroxine 75 mcg tablet 75 mcg PO DAILY #90 tabs 0 10/23/24 Unknown Rx olaparib 100 mg tablet (Lynparza) 100 mg PO BID Unknown History pantoprazole 20 mg tablet,delayed 20 mg PO DAILY #14 t abs 01/24/25 Unknown Rx release (Protonix) Allergy/AdvReac Type Severity Reaction Status Date / Time cephalexin (From Keflex) Allergy Severe Other Verified 01/24/25 15:54 Family History Other Colon cancer Diabetes Myocardial infarction Surgical History H/O: hysterectomy History of transcatheter aortic valve replacement (TAVR) (~12/14/21) History of bilateral cataract extraction Social History household members: other details: number of children: 4 current occupational 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 Smoking Status: Former smoker alcohol intake: never substance use type: does not use caffeine: Yes Type: tea Number of servings: 1 ROS ROS ED Constitutional Constitutional ED: Denies chills, fever(s) or weight loss Eyes Eyes: Denies change in vision or diplopia ENT ENT ED: Denies ear pain, rhinorrhea or sore throat Cardiovascular Cardiovascular: Reports as per HPI and chest pain; Denies orthopnea, palpitations or racing heartbeat Respiratory/Chest Respiratory/Chest: Denies cough, dyspnea or orthopnea Gastrointestinal Gastrointestinal: Reports nausea; Denies abdominal pain, diarrhea or vomiting Genitourinary Genitourinary ED: Denies dysuria, hematuria or urinary frequency Musculoskeletal Musculoskeletal: Reports back pain; Denies arthralgias or myalgias Integumentary Denies abscess or rash Neurologic Neurologic: Denies headache(s) or weakness Psychiatric Psychiatric: Denies anxiety, depression, suicidal ideation or suicidal thoughts Endocrine Endocrinology: Denies polydipsia, polyphagia or polyuria Allergic/Immunologic Allergic/Immunologic ED: Denies mouth swelling, tongue swelling or urticaria EXAM Physical Exam Const Vital Signs: 01/24/25 15:54 01/24/25 16:59 01/24/25 17:00 Temperature 98.3 F Temperature Source Oral Pulse Rate 63 54 L 52 L Respiratory Rate 16 19 H 13 Blood Pressure 113/97 H 139/54 H Blood Pressure Mean 102 78 Pulse Ox 100 100 100 Oxygen Delivery Method Room Air Room Air 01/24/25 17:37 01/24/25 17:45 01/24/25 18:00 Temperature Temperature Source Pulse Rate 53 L 58 L 55 L Respiratory Rate 17 13 Blood Pressure 161/67 H 162/62 H Blood Pressure Mean 94 91 Pulse Ox 100 100 100 Oxygen Delivery Method Room Air Room Air 01/24/25 19:00 Temperature Temperature Source Pulse Rate 52 L Respiratory Rate 21 H Blood Pressure 164/71 H Blood Pressure Mean 102 Pulse Ox 100 Oxygen Delivery Method Room Air Positive well nourished and well developed General Appearance ED: well developed HEENT Reports normocephalic, head/scalp atraumatic and moist mucous membranes Eyes PERRL and EOMs intact bilaterally Neck no lymphadenopathy, supple and no JVD Resp normal respiratory effort and clear to auscultation bilaterally Cardio regular rate, regular rhythm and no murmurs GI normal to inspection, nondistended, normoactive bowel sounds and non-tender Palpation: soft Back/Spine no CVA tenderness and normal ROM Extremity normal to inspection General Extremety ED: Negative for edema General Extremity: Negative for edema Neuro oriented x3 and CN's II-XII intact bilaterally Sensorium / Orientation: alert Motor Exam: strength 5/5 throughout Psych mental status grossly normal Mood & Affect: Negative for depressed or tearful Skin no rashes or lesions noted and no wounds MDM MDM MDM Narrative Medical decision making narrative: Differential diagnosis includes but not limited to acute coronary syndrome GERD aortic dissection aneurysm pleural effusion pancreatitis biliary colic EKG shows sinus bradycardia rate of 57. My independent interpretation of the chest x-ray is no acute process.2 cardiac enzymes are 24 and 23. Normal lipase. LFTs show direct bilirubin of 0.34 with a total bilirubin of 0.8. CBC is stable for the patient. Patient's had no events on the monitor Clinically I do not see evidence of ACS. I do wonder about her. I think it is reasonable to do a trial of Protonix. She may require further evaluation with EGD or continuation of Protonix or going up on dose. She is to follow-up with primary care 1 to 2 weeks. Intermittent Tums would be acceptable. History & Record Review Discussion w/independent historian: Patient and Family Lab Data Attestation: I reviewed the patient's lab results. Labs: Laboratory Results - last 24 hr 01/24/25 01/24/25 16:21 18:12 WBC 12.8 H RBC 3.67 L Hgb 11.8 L Hct 35.8 L MCV 97.5 MCH 32.2 H MCHC 33.0 RDW Std Deviation 51.7 H RDW Coeff of Zack 14.2 Plt Count 207 MPV 9.7 Immature Gran % (Auto) 0.400 Neut % (Auto) 25.9 L Lymph % (Auto) 70.8 H [place] % (Auto) 2.2 Eos % (Auto) 0.4 Baso % (Auto) 0.3 Absolute Neuts (auto) 3.3 Absolute Lymphs (auto) 9.07 H Nucleated RBC % 0 Differential Comment SCANNED Diff Path Review May foll Platelet Estimate ADEQUATE Sodium 139 Potassium 3.9 Chloride 101 Carbon Dioxide 24.6 Anion Gap 13 BUN 21 H Creatinine 1.39 H Estim Creat Clear Calc 23.35 L Est GFR (MDRD) Non-Af 37 L BUN/Creatinine Ratio 15.3 Glucose 119 H Calcium 9.7 Total Bilirubin 0.80 Direct Bilirubin 0.34 H AST 25 ALT 13 Alkaline Phosphatase 94 Troponin T High Sens 24 H Troponin T Hi Sens 2 Hr 23 H Total Protein 7.5 Albumin 4.2 Globulin 3.3 Lipase 20 EKG Initial EKG: Attestation: I personally reviewed and interpreted this EKG as follows: Comments: Sinus bradycardia ventricular to 47 bpm Discharge Plan Triage Chief Complaint: Chest Pain ED Provider: Swapnil Parson Dx/Rx/DC Orders Clinical Impression: GERD (gastroesophageal reflux disease), Chest pain Instructions: ED GERD (Adult) Prescriptions: New pantoprazole [Protonix] 20 mg tablet,delayed release (DR/EC) 20 mg PO DAILY Qty: 14 0RF No Action ferrous sulfate 325 mg (65 mg iron) tablet 325 mg PO QODAY ascorbic acid (vitamin C) 500 mg tablet 500 mg PO DAILY pyridoxine (vitamin B6) 100 mg tablet 100 mg PO DAILY cholecalciferol (vitamin D3) 25 mcg (1,000 unit) tablet 25 mcg PO DAILY Probiotic Gold Acidophilus 1 billion cell capsule 1,000 mmu cells PO DAILY cranberry extract 200 mg capsule 200 mg PO QDAY Rx Instructions: administer with a meal Lynparza 100 mg tablet 100 mg PO BID Eliquis 5 mg tablet 5 mg PO BID Qty: 180 3RF levothyroxine 75 mcg tablet 75 mcg PO DAILY Qty: 90 1RF Primary Care Provider: Megan eBrnardo Referrals: Megan Bernardo MD [Primary Care Provider, Internal Medicine - [facility]] - 1-2 Weeks Print Language: Citizen Of [place] Disposition Disposition: Home, Self Care
--- NOTE | 2025-01-24 16:28 | RAD_ITS ---
PROCEDURE: CHEST 1 VIEW (PORTABLE) 01/24/2025 REASON FOR EXAM: CHEST PAIN TECHNIQUE: Frontal view of the chest. FINDINGS: No focal consolidation. No pleural effusion or pneumothorax. Cardiac silhouette is within normal limits. TAVR noted. No acute fractures. RAD/Chest 1 View (Portable) IMPRESSION: No focal consolidations. Reading Location: [id number]
[2025-01-24 16:33] LABS: Hematocrit 35.8 % (37-47); Hemoglobin 11.8 g/dL (12.0-15.0); Immature Granulocytes Count 0.050 X10^3/uL (0.0-0.0); Mean Corp Hgb Conc 33.0 g/dL (32-36); Mean Corpuscular Volume 97.5 fL (81-99); Mean Platelet Vol. 9.7 fl (6.2-12.0); NRBC Flagged by Analyzer 0 % (0-5); POSITIVE DIFFERENTIAL YES; POSITIVE MORPHOLOGY YES; Platelet Count 207 K/mm3 (150-450); RBC Distribution Width CV 14.2 % (11.6-14.6); RBC Distribution Width SD 51.7 fl (35.1-43.9); Red Blood Count 3.67 M/mm3 (4.2-5.4); White Blood Count 12.8 K/mm3 (4.4-11.0)
[2025-01-24 16:39] LABS: Differential Indicated SCAN CRITERIA MET
--- OUTSIDE RECORDS SUMMARY | 2025-01-24 16:46 | XMS RPT_ITS | CCD ---
Author Organization [facility] Care Team Providers Care Deck Officer Name Role Phone Care Physician, No Primary Primary Care Provider Unavailable Care Physician, No Primary Referring Provider Un available CHAY Ramirze Attending Provider Dr. Vern Bernardo Attending Provider [phone] Dr. Vern Bernardo Primary Care Provider Dr. Constantino Crisostomo Attending Provider [phone] Vern Bernardo Referring Provider [phone] Vern Bernardo MD Primary Care Provider [phone] Care Physician, No Primary Primary Care Provider Unavailable Care Physician, No Primary Referring Provider Un available CHAY Ayers Attending Provider Unavailab Dr. Vince Pinon Attending Provider Kimberly Peoples Attending Provider Unavailable Dr. Ruddy Puri Attending Provider [phone] Dr. Ruddy Puri Referring Provider [phone] Dr. Ruddy Puri Other Provider [phone] Vern Bernardo Primary Care Provider Dr. Vern Bernardo Referring Provider [phone] Dr. Vern Bernardo Attending Provider [phone] CHAY Coffman Attending Provider Ruddy Puri Unavailable Nir Roth MD Unavailable Vern Bernardo MD Primary Care Provider [phone] Ruddy Puri Unavailable Gonzalez MD, Nir Unavailable Vern Bernardo MD Primary Care Provider Ruddy Puri Unavailable Ruddy Patricio DO Unavailable Vern Bernardo MD Primary Care Provider Ruddy Puri Unavailable Gonzalez ALONZO, Nir Unavailable Ruddy Patricio DO Unavailable Dr. Vern Bernardo Primary Care Provider Dr. Vern Bernardo Referring Provider Dr. Ruddy Puri Attending Provider CHAY Ibarra Attending Provider Dr. Vern Bernardo Attending Provider [phone] Vince Morse Attending Provider Dr. Vern Bernardo Primary Care Provider Dr. Vern Bernardo Referring Provider [phone] Ruddy Puri Attending Provider [phone] BRITTANI ANTONIO Attending Unavailable EMILY JACOBS Referring Unavailable VERN BERNARDO Primary Care Unavailable BRITTANI ANTONIO Referring Unavailable VERN BERNARDO Primary Care Unavailable Dr. Monica Dueñas Emergency Provider Dr. Haim Das Admit Provider Dr. Haim Das Attending Provider Dr. Haim Das Other Provider Dr. Vince Rdz Other Provider Scott FINNEY, Alexandra Abel Unavailable Unavaila ble Dr. Vern Bernardo Primary Care Provider Dr. Vern Bernardo Referring Provider [phone] João Palacios Emergency Provider Dr. Sai Lee Admit Provider Dr. Sai Lee Attending Provider Jesus, Dr. Gibbs Other Provider Dr. Khari Oliva Attending Provider Dr. Khari Oliva Other Provider Dr. Piedad Hester Attending Provider Dr. Piedad Hester Other Provider Dr. Pravin Martínez Other Provider Dr. Bud Hanna Other Provider Dr. Wade Marcus Other Provider Dr. Kane Borges Other Provider Unavailab james Crowder SUPERVISOR BOTTLE MACHINES, SUPERVISOR BOTTLE MACHINES-C Nani Other Provider Dr. Pravin Martínez Attending Provider Ary Borden MD Unavailable Jaye MULTICUT LINE OPERATOR.STORE LOSS PREVENTION MANAGER, Samra M Unavailable Dr. Vern Bernardo Primary Care Provider Dr. Vern Bernardo Referring Provider CHAY Ibarra Attending Provider Dr. Vern Bernardo Attending Provider Dr. Vince Morse Attending Provider Dr. Monica Dueñas Emergency Provider Dr. Haim Das Admit Provider Dr. Haim Das Attending Provider Dr. Haim Das Other Provider Dr. Vince Rdz Other Provider Dr. João Palacios Emergency Provider [phone] Sai Lee Admit Provider Dr. Sai Lee Attending Provider Jesus, Dr. Gibbs Other Provider Dr. Khari Oliva Attending Provider Dr. Khari Oliva Other Provider Dr. Piedad Hester Attending Provider Dr. Piedad Hester Other Provider Dr. Ruddy Puri Attending Provider Dr. Ruddy Puri Referring Provider Dr. Pravin Martínez Other Provider Dr. Bud Hanna Other Provider Dr. Wade Marcus Other Provider Dr. Kane Borges Other Provider Unavailab james Crowder SUPERVISOR BOTTLE MACHINES, SUPERVISOR BOTTLE MACHINES-C Nani Other Provider Dr. Pravin Martínez Attending Provider Dokt RN, Maegan Unavailable Unavailable Dr. Vern Bernardo Primary Care Provider Dr. Vern Bernardo Referring Provider CHAY Ibarra Attending Provider [phone] Vern Bernardo Attending Provider [phone] Vince Morse Attending Provider Dr. Monica Dueñas Emergency Provider Dr. Haim Das Admit Provider Dr. Haim Das Attending Provider Dr. Haim Das Other Provider Dr. Vince Rdz Other Provider Dr. João Palacios Emergency Provider Dr. Sai Lee Admit Provider Dr. Sai Lee Attending Provider Dr. Sai Lee Other Provider Dr. Khari Oliva Attending Provider Dr. Khari Oliva Other Provider Dr. Piedad Hester Attending Provider Dr. Piedad Hester Other Provider Dr. Ruddy Puri Attending Provider Dr. Ruddy Puri Referring Provider Dr. Pravin Martínez Other Provider Dr. Bud Hanna Other Provider Dr. Wade Marcus Other Provider Dr. Kane Borges Other Provider Unavailab james Crowder SUPERVISOR BOTTLE MACHINES, SUPERVISOR BOTTLE MACHINES-C Nani Other Provider Dr. Pravin Martínez Attending Provider Marla CARTWRIGHT, PA Terrell Saenz Attending Provider Dr. Constantino Crisostomo Attending Provider VISHAL PICHARDO Admitting Unavailable VISHAL PICHARDO Attending Unavailable VERN BERNARDO Primary Care Unavailable Dr. Piedad Hester Referring Provider Ruddy Puri Unavailable Gonzalez ALONZO, Nir Unavailable Blade RN, Maegan Unavailable Unavailable Dr. Vern Bernardo Primary Care Provider Dr. Vern Bernardo Attending Provider [phone] Tiffany Cedeño Unavailable Unavailabl e Ruddy Puri MD Unavailable Vern Bernardo MD Primary Care Provider [phone] Dr. Vern Bernardo Primary Care Provider Dr. Vern Bernardo Attending Provider [phone] Vern Bernardo MD Primary Care Provider Dr. Vern Bernardo Primary Care Provider Dr. Vern Bernardo Referring Provider [phone] Vickey CARTWRIGHT PA Armen Attending Provider Dr. Vern Bernardo Attending Provider [phone] Jaxson ALONZO, Ruddy F Unavailable [phone] Jaxson ALONZO, Ruddy F Unavailable Jaxson ALONZO, Ruddy F Unavailable Ethel ALONZO, Dr. Guzman Primary Care Provider Ethel ALONZO, Dr. Guzman Attending Provider Ethel ALONZO, Dr. Guzman Referring Provider Terrell Coffman Attending Provider Ethel ALONZO, Dr. Guzman Primary Care Provider Ethel ALONZO, Dr. Guzman Attending Provider Ethel ALONZO, Dr. Guzman Referring Provider Armen Ibarra Attending Provider Terrell Coffman Attending Unavailable Ethel, Vern Primary Care Unavailable EthelVern michelle Referring Unavailable EthelVern michelle Attending Unavailable Ethel, Vern Primary Care Unavailable EthelVern bui Attending Unavailable Ethel, Vern Primary Care Unavailable EthelVern michelle Referring Unavailable EthelVern Referring Unavailable Armen Ibarra Attending Unavailable Ethel, Vern Primary Care Unavailable MASCI, RUDDY A Attending Unavailable MASCI, RUDDY A Referring Unavailable ETHEL, VERN M Primary Care Unavailable MASCI, RUDDY A Referring Unavailable ETHEL, VERN M Primary Care Unavailable ETHEL, VERN Primary Care Unavailable MASCI, RUDDY A Referring Unavailable MASCI, RUDDY A Referring Unavailable ETHEL, VERN M Primary Care Unavailable MASCI, RUDDY A Referring Unavailable ETHEL, VERN M Primary Care Unavailable MASCI, RUDDY A Referring Unavailable ETHEL, VERN M Primary Care Unavailable MASCI, RUDDY A Referring Unavailable ETHEL, VERN M Primary Care Unavailable MASCI, RUDDY A Referring Unavailable ETHEL, VERN M Primary Care Unavailable MASCI, RUDDY A Referring Unavailable ETHEL, VERN M Primary Care Unavailable ETHEL, VERN M Primary Care Unavailable MASCI, RUDDY A Referring Unavailable ETHEL, VERN M Primary Care Unavailable ETHEL, VERN M Primary Care Unavailable ETHEL, VERN M Primary Care Unavailable VENKAT RUDDY A Referring Unavailable FRANKLYN CORONEL Attending Unavailable ETHELVERN Primary Care Unavailable VENKAT RUDDY Pardo Referring Unavailable ETHELVERN MICHELLE Primary Care Unavailable RUDDY PATRICIO A Referring Unavailable VERN BERNARDO Primary Care Unavailable VENKAT, RUDDY A Referring Unavailable VERN BERNARDO Primary Care Unavailable RUDDY PATRICIO A Referring Unavailable ETHEL VERN Saenz Primary Care Unavailable VENKAT RUDDY Pardo Attending Unavailable ETHELVERN Primary Care Unavailable VENKAT RUDDY A Referring Unavailable VERN BERNARDO Primary Care Unavailable VERN BERNARDO Primary Care Unavailable RUDDY PATRICIO A Referring Unavailable ETHELVERN Primary Care Unavailable Allergies Allergy Classification Reported Allergen(s) Allergy Type Date of Onset Reaction(s) Facility Cephalosporins (antibiotic) (1 source) Cephalexin Drug Allergy 12-22-2021 [facility] (20 sources) Cephalexin; Translations: [CEPHALEXIN] Drug Allergy 12-22-2021 [facility] Work Phone: Comment on above: SWOLLEN LIPS (20 sources) Adhesive Tape-Silicones; Translations: [ADHESIVE TAPE-SILICONES] Drug Allergy 07-05-2022 [facility] (1 source) Cephalexin Drug Allergy 10-16-2024 [facility] Repository Medications Current Medications Medication Drug Class(es) Dates Sig (Normalized) Sig (Original) acetaminophen 500 mg oral tablet (20 sources) Start: 05-16-2022 take 2 tablets by mouth every six hours acetaminophen (TYLENOL EXTRA STRENGTH) 500 mg tablet Take 2 tablets by mouth every 6 hours. 30 tablet 05/16/2022 12:17 PM EST 05/16/2022 Active Comment on above: Take 2 tablets by mo ut every 6 hours. ascorbic acid 500 mg oral tablet (20 sources) Vitamin C Start: 07-18-2023 take 1 tablet by mouth once daily Ascorbic Acid (Vitamin C) 500 mg tablet Active 500 mg PO DAILY July 18, 2023 12:00am Start: 06-05-2021 End: 06-01-2022 take 1 capsule by mouth once daily Ascorbic Acid (Vitamin C) 500 mg capsule Discontinued 500 mg PO DAILY September 14, 2021 2:34pm December 19, 2021 3:07pm Start: 06-05-2021 End: 09-14-2021 Ascorbic Acid (Vitamin C) Discontinued MG PO June 05, 2021 1:00am September 14, 2021 2:34pm Comment on above: Take 500 mg by mouth once daily. b12 (5 sources) Start: 11-26-2022 b12 Active PO November 25, 2022 11:00pm Start: 11-26-2022 b12 Active PO November 26, 2022 12:00am cephalexin 500 mg oral capsule (20 sources) Cephalosporin Antibacterial Start: 12-14-2021 End: 12-22-2021 take 1 capsule by mouth every twelve hours cephALEXin (KEFLEX) 500 mg capsule Take 1 capsule by mouth every 12 hours for 10 doses. 10 capsule 0 12/14/2021 12/22/2021 Discontinued Start: 10-18-2021 End: 10-19-2021 take 1 capsule by mouth three times daily Cephalexin 500 mg capsule Discontinued 500 mg PO THREE TIMES A DAY October 18, 2021 12:00am October 19, 2021 3:45pm Start: 10-18-2021 End: 10-19-2021 Comment on above: Take 1 capsule by mo [facility] every 12 hours for 10 doses. cholecalciferol 0.025 mg oral tablet (3 sources) Vitamin D Start: 07-18-19 24 take 1 tablet by mouth once daily Cholecalciferol (Vitamin D3) 25 mcg (1,000 unit) tablet Active 25 ug PO DAILY July 18, 2023 12:00am Cranberry Extract (2 sources) Non-Standardized Food Allergenic Extract, Non-Standardized Plant Allergenic Extract Start: 07-10-19 take 1 capsule by mouth once daily Cranberry Extract 200 mg capsule Active 200 mg PO daily July 09, 2024 12:00am administer with a meal doxycycline monohydrate 100 mg oral tablet (20 sources) Tetracycline-class Drug Start: 10-17-19 take 1 tablet by mouth twice daily Doxycycline Monohydrate 100 mg tablet Active 100 mg PO TWICE A DAY October 16, 2024 12:00am October 25, 2024 12:00am Start: 02-21-2022 End: 04-18-2022 take 1 capsule by mouth twice daily Doxycycline Hyclate 100 mg capsule Discontinued 100 mg PO TWICE A DAY March 29, 2022 1:00am April 07, 2022 1:00am April 08, 2022 1:04am Acute sinusitis, unspecified Comment on above: Take 100 mg by mouth twice daily. 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) , Uterine carcinosarcoma (HCC) For CT ABD/PEL W IVCON Routine order Administer, As Directed One Time Only, via Oral, Rectal, both Oral and Rectal, Enteric Tube, Stoma or Indwelling Catheter, Enteric Contrast as designated per enteric contrast guidelines 1 Each 04/13/2024 04/14/2024 Active Start: 06-05-2022 End: 05-12-2024 enteric contrast (will be pr ovided with radiology test) Indications: Carcinosarcoma (HCC) For CT CHESTABD/PEL W IVCON Routine order Administer, As Directed One Time Only, via Oral, Rectal, both Oral and Rectal, Enteric Tube, Stoma or Indwelling Catheter, Enteric Contrast as designated per enteric contrast guidelines 1 Each 06/05/2022 05/12/2024 Discontinued Start: 06-05-[address] (will be provided with radiology test) Indications: Carcinosarcoma (HCC) For CT CHESTABD/PEL W IVCON Routine order Administer, As Directed One Time Only, via Oral, Rectal, both Oral and Rectal, Enteric Tube, Stoma or Indwelling Catheter, Enteric Contrast as designated per enteric contrast guidelines 1 Each 06/05/2022 Active Start: 06-05-[address] (will be provided with radiology test) Indications: Carcinosarcoma (HCC) For CT CHESTABD/PEL W IVCON Routine order Administer, As Directed One Time Only, via Oral, Rectal, both Oral and Rectal, Enteric Tube, Stoma or Indwelling Catheter, Enteric Contrast as designated per enteric contrast guidelines 1 Each 0 06/05/2022 Active Comment on above: For CT CHESTABD/PEL W IVCON Routine order Administer, As Directed One Time Only, via Oral, Rectal, both Oral and Rectal, Enteric Tube, Stoma or Indwelling Catheter, Enteric Contrast as designated per enteric contrast guidelines ferrous sulfate 325 mg oral tablet (20 sources) Start: 01-29-2022 take 1 tablet by mouth every other day ferrous sulfate 325 mg (65 mg iron) tablet Take 325 mg by mouth every other day. 01/29/2022 Active Start: 01-29-2022 End: 05-11-2024 take 1 tablet by mouth every other day ferrous sulfate 325 mg (65 mg iron) tablet Take 1 tablet by mouth every other day. 01/29/2022 05/11/2024 Discontinued (Other) Start: 01-29-2022 take 1 tablet by rosa th once daily ferrous sulfate 325 mg (65 mg iron) tablet Take 1 tablet by mouth once daily. 0 01/29/2022 Active Comment on above: Take 1 tablet by rosa th once daily. Take 1 tablet by rosa th every other day. 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 Discontinue saline lock post exam. If Pt. has a central line or IVAD, may access for administration according to line specific nursing protocol. Once exam is complete flush line and de-access according to line specific nursing protocol in the CT contrast administration guidelines link. 1 Each 04/13/2024 04/14/2024 Active Start: 06-05-2022 End: 05-12-2024 iv contrast (will be provide d with radiology test) Indications: Carcinosarcoma (HCC) CT Chest ABD/PEL-Inject, intravenously, once for 1 dose.No IV access, insert saline lock prior to the beginning of sedation, infusion, injection of imaging exam. Discontinue saline lock post exam. If Pt. has a central line or IVAD, may access for administration according to line specific nursing protocol. Once exam is complete flush line and de-access according to line specific nursing protocol in the CT contrast administration guidelines link. 1 Each 06/05/2022 05/12/2024 Discontinued Start: 06-05-2022 iv contrast (w ill be provided with radiology test) Indications: Carcinosarcoma (HCC) CT Chest ABD/PEL-Inject, intravenously, once for 1 dose.No IV access, insert saline lock prior to the beginning of sedation, infusion, injection of imaging exam. Discontinue saline lock post exam. If Pt. has a central line or IVAD, may access for administration according to line specific nursing protocol. Once exam is complete flush line and de-access according to line specific nursing protocol in the CT contrast administration guidelines link. 1 Each 06/05/2022 Active Start: 06-05-2022 iv contrast (w ill be provided with radiology test) Indications: Carcinosarcoma (HCC) CT Chest ABD/PEL-Inject, intravenously, once for 1 dose.No IV access, insert saline lock prior to the beginning of sedation, infusion, injection of imaging exam. Discontinue saline lock post exam. If Pt. has a central line or IVAD, may access for administration according to line specific nursing protocol. Once exam is complete flush line and de-access according to line specific nursing protocol in the CT contrast administration guidelines link. 1 Each 0 06/05/2022 Active Start: 04-23-2022 End: 04-24-2022 iv contrast (will be provide d with radiology test) Indications: Lung nodules CT Chest W -Inject, intravenously, once for 1 dose.No IV access, insert saline lock prior to the beginning of sedation, infusion, injection of imaging exam. Discontinue saline lock post exam. If Pt. has a central line or IVAD, may access for administration according to line specific nursing protocol. Once exam is complete flush line and de-access according to line specific nursing protocol in the CT contrast administration guidelines link. 1 Each 0 04/23/2022 04/24/2022 Active Start: 10-11-2021 End: 10-12-2021 inject 1 dose intravenously once iv contrast (will be provided with radiology test) CTA CHST/ABD/PEL. No IV access, insert saline lock prior to the sedation, infusion, injection for imaging exam. Discontinue saline lock post exam. If Pt. has a central line or IVAD, may access for administration according to line specific nursing protocol. Once exam is complete flush line and de-access according to line specific nursing protocol in the CT contrast administration guidelines link. 1 Each 0 10/11/2021 10/12/2021 Active Comment on above: CTA CHST/ABD/PEL. No IV access, insert saline lock prior to the sedation, infusion, injection for imaging exam. Discontinue saline lock post exam. If Pt. has a central line or IVAD, may access for administration according to line specific nursing protocol. Once exam is complete flush line and de-access according to line specific nursing protocol in the CT contrast administration guidelines link. CT Chest W -Inject, intravenously, once for 1 dose.No IV access, insert saline lock prior to the beginning of sedation, infusion, injection of imaging exam. Discontinue saline lock post exam. If Pt. has a central line or IVAD, may access for administration according to line specific nursing protocol. Once exam is complete flush line and de-access according to line specific nursing protocol in the CT contrast administration guidelines link. CT Chest ABD/PEL-Inj ect, intravenously, once for 1 dose.No IV access, insert saline lock prior to the beginning of sedation, infusion, injection of imaging exam. Discontinue saline lock post exam. If Pt. has a central line or IVAD, may access for administration according to line specific nursing protocol. Once exam is complete flush line and de-access according to line specific nursing protocol in the CT contrast administration guidelines link. L.acidophilus-L.rha mnosus (PROBIOTIC) 15 billion cell capsule (20 sources) take 1 capsule by mouth once daily L.acidophilus-L.rha mnosus (PROBIOTIC) 15 billion cell capsule Take 1 capsule by mouth once daily. Active take 1 capsule by mo [facility] once daily L.acidophilus-L.rhamnosus (PROBIOTIC) 15 billion cell capsule Take 1 capsule by mouth once daily. 0 Active lactobacillus acidophilus [id number] unt oral capsule (3 sources) Start: 07-18-2023 take 1 capsule by mouth once daily Lactobacillus Acidophilus (Probiotic Gold Acidophilus) 1 billion cell capsule Active 1000 NMA PO DAILY July 18, 2023 12:00am levothyroxine sodium 0.075 mg oral tablet (20 sources) l-Thyroxi ne Start: 05-04-2024 take 1 tablet by mouth once daily Levothyroxine 75 mcg tablet Active 75 ug PO DAILY 90 May 04, 2024 11:23am Start: 11-27-2022 End: 05-04-2024 take 1 tablet by mouth once daily Levothyroxine 50 mcg tablet Discontinued 50 ug PO DAILY 90 March 27, 2024 11:39am May 04, 2024 11:24am Start: 10-16-2022 take 3 tablets by mo uth once daily in the morning levothyroxine (SYNTHROID) 25 mcg tablet Take 75 mcg by mouth daily at 6 am. 10/16/2022 Active Start: 10-16-2022 take 2 tablets by mo uth once daily, then take 6 tablets by mouth in the morning levothyroxine (SYNTHROID) 25 mcg tablet Take 50 mcg by mouth DAILY (6 AM). 10/16/2022 Active Start: 10-16-2022 take 1 tablet by rosa th once daily, then take 6 tablets by mouth in the morning levothyroxine (SYNTHROID) 25 mcg tablet Take 25 mcg by mouth DAILY (6 AM). 0 10/16/2022 Active Comment on above: Take 25 mcg by mouth DAILY (6 AM). Take 50 mcg by mouth DAILY (6 AM). lisinopril 5 mg oral tablet (20 sources) Angiotensin Converting Enzyme Inhibitor Start: take 2 tablets by mouth once daily Lisinopril 5 mg tablet Active 10 mg PO DAILY 90 July 09, 2024 4:29pm Start: 08-23-2023 take 1 tablet by rosa th once daily lisinopril (ZESTRIL) 5 mg tablet Take 1 tablet by mouth once daily. 30 tablet 5 08/23/2023 Active Start: 02-23-2022 End: 07-02-2022 take 1 tablet by mouth once daily Lisinopril 40 mg tablet Discontinued 40 mg PO DAILY April 28, 2022 1:00am May 31, 2022 2:54pm BP On Hold: hypotension Start: 01-29-2022 End: 01-29-2022 take 10 mg by mouth once daily Lisinopril 20 mg tablet Discontinued 10 mg PO DAILY 90 January 29, 2022 2:33pm January 29, 2022 2:35pm Start: 01-29-2022 End: 01-29-2022 take 10 mg by mouth once daily Lisinopril Discontinued 10 MG PO DAILY 90 January 29, 2022 2:33pm January 29, 2022 2:35pm Start: 01-29-2022 End: 05-24-2022 Start: 01-29-2022 End: 03-05-2022 take 40 mg by mouth once daily Lisinopril Active 40 MG PO DAILY March 05, 2022 2:16pm Start: 01-29-2022 End: 03-05-2022 take 1 tablet by mouth once daily Lisinopril 20 mg tablet Discontinued 20 mg PO DAILY 90 January 29, 2022 2:34pm March 05, 2022 3:16pm Start: 2021 End: 2021 take 1 tablet by mouth once daily Lisinopril 20 mg tablet Discontinued 20 mg PO DAILY 30 2 2021 10:44am 2021 2:14pm Start: 2021 End: 2021 Start: 06-07-2021 End: 07-09-2024 take 1 tablet by mouth once daily Lisinopril 10 mg tablet Discontinued 10 mg PO DAILY April 07, 2024 12:50pm July 09, 2024 4:29pm Comment on above: Take 10 mg by mouth once daily. Take 1 tablet by rosa th once daily. Take 1.5 tablets by mouth once daily. Take 20 mg by mouth once daily. Take 40 mg by mouth once daily. Take 10 mg by mouth once daily. Take only if BP 139/ or higher LORazepam 0.5 mg oral tablet (18 sources) Benzodiazepine Start: 06-02-19 End: 06-16-19 take 1 tablet by mouth twice daily as needed LORazepam (ATIVAN) 0.5 mg Indications: Uterine carcinosarcoma (HCC) , Omental metastasis (HCC) Take 1 tablet by mouth twice daily as needed for up to 14 days. 28 tablet 0 06/01/2022 06/15/2022 Active Comment on above: Take 1 tablet by rosa th twice daily as needed for up to 14 days. Magnesium (20 sources) Start: 06-06-19 take 200 mg by mouth once daily Magnesium Active 200 MG PO DAILY June 05, 2021 9:37am Start: 06-05-2021 End: 12-19-2021 take 1 tablet by mouth once daily Magnesium 200 mg tablet Discontinued 200 mg PO DAILY June 05, 2021 1:00am December 19, 2021 3:07pm Start: 06-05-2021 End: 12-19-2021 take 200 mg by mouth once daily Magnesium Discontinued 200 MG PO DAILY June 05, 2021 1:00am December 19, 2021 3:07pm Start: 06-05-2021 End: 12-19-2021 take 200 mg by mouth once daily Magnesium Discontinued 200 MG PO DAILY June 05, 2021 12:00am December 19, 2021 2:07pm Start: 06-05-2021 take 200 mg by mouth once maida y Magnesium Active 200 MG PO DAILY June 05, 2021 1:00am End: 05-11-2024 take 1 tablet by mouth once daily Magnesium 200 mg tab Take 1 tablet by mouth once daily. 05/11/2024 Discontinued (Patient chooses alternative therapy) take 1 tablet by rosa th once daily Magnesium 200 mg tab Take 1 tablet by mouth once daily. Active take 1 tablet by rosa th once daily Magnesium 200 mg tab Take 1 tablet by mouth once daily. 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 120 tablet 5 02/19/2023 12/25/2023 Discontinued Comment on above: Take 2 tablets (200 mg) by mouth two times a day. perflutren lipid microspheres 1.3 mL in NaCl (PF) 0.9% 10 mL injection (DEFINITY) (20 sources) Start: 12-13-2022 End: 03-13-2024 perflutren lipid microspheres 1.3 mL in NaCl (PF) 0.9% 10 mL injection (DEFINITY) Start: 06-26-2022 End: 12-13-2022 perflutren lipid microsphere s 1.3 mL in NaCl (PF) 0.9% 10 mL injection (DEFINITY) Start: 06-26-2022 End: 09-25-2023 perflutren lipid microsphere s 1.3 mL in NaCl (PF) 0.9% 10 mL injection (DEFINITY) Start: 06-01-2022 End: 12-13-2022 perflutren lipid microsphere s 1.3 mL in NaCl (PF) 0.9% 10 mL injection (DEFINITY) Start: 06-01-2022 End: 08-31-2023 perflutren lipid microsphere s 1.3 mL in NaCl (PF) 0.9% 10 mL injection (DEFINITY) Start: 02-23-2022 End: 12-13-2022 perflutren lipid microsphere s 1.3 mL in NaCl (PF) 0.9% 10 mL injection (DEFINITY) Start: 02-23-2022 End: 05-25-2023 perflutren lipid microsphere s 1.3 mL in NaCl (PF) 0.9% 10 mL injection (DEFINITY) Start: 12-22-2021 End: 12-13-2022 perflutren lipid microsphere s 1.3 mL in NaCl (PF) 0.9% 10 mL injection (DEFINITY) Start: 12-22-2021 End: 03-23-2023 perflutren lipid microsphere s 1.3 mL in NaCl (PF) 0.9% 10 mL injection (DEFINITY) Start: 12-14-2021 End: 12-14-2021 perflutren lipid microsphere s 1.3 mL in NaCl (PF) 0.9% 10 mL injection (DEFINITY) Start: 10-11-2021 End: 01-10-2023 perflutren lipid microsphere s 1.3 mL in NaCl (PF) 0.9% 10 mL injection (DEFINITY) prochlorperazine 10 mg oral tablet (20 sources) Phenothiazine Start: 06-01-2022 take 1 tablet by mouth every six hours as needed prochlorperazine (COMPAZINE) 10 mg tablet Take 1 tablet by mouth every 6 hours as needed. 30 tablet 2 06/01/2022 Active Comment on above: Take 1 tablet by rosa th every 6 hours as needed. 125 ml sodium chloride 9 mg/ml prefilled syringe (20 sources) Start: 10-11-2021 End: 03-13-2024 sodium chloride 0.9 % (flush) 10 mL (BD POSIFLUSH) Comment on above: Inject 2-10 mL intra venously as directed. For Echo procedure spironolactone 25 mg oral tablet (20 sources) Aldosterone Antagonist Start: 05-31-2022 take 12.5 mg by mouth once daily Spironolactone Active 12.5 MG PO DAILY May 31, 2022 1:00am End: 06-28-2022 spironolactone (ALDACTONE) 2 5 mg tablet Take 12.5 mg by mouth once daily. 0 06/28/2022 Discontinued Comment on above: Take 12.5 mg by mout h once daily. vitamin b6 100 mg oral tablet (3 sources) Start: 07-18-2023 take 1 tablet by mouth once daily Pyridoxine (Vitamin B6) 100 mg tablet Active 100 mg PO DAILY July 18, 2023 12:00am Completed/Discontinued Medications Medication Drug Class(es) Dates Sig (Normalized) Sig (Original) acetaminophen 325 mg / oxyCODONE hydrochloride 5 mg oral tablet (4 sources) Opioid Agonist Start: 07-02-2022 End: 07-05-2022 take 1 tablet by mouth every six hours as needed for pain oxyCODONE-acetamin ophen (PERCOCET) 5-325 mg tablet Indications: Pleural effusion Take 1 tablet by mouth every 6 hours as needed for pain for up to 3 days. 6 tablet 0 07/02/2022 07/05/2022 Comment on above: Take 1 tablet by rosa th every 6 hours as needed for pain for up to 3 days. amoxicillin 500 mg oral tablet (20 sources) Penicillin-class Antibacterial Start: 09-19-2023 End: 09-24-2023 take 1 tablet by mouth twice daily Amoxicillin 500 mg tablet Discontinued 500 mg PO TWICE A DAY 10 5 0 September 19, 2023 12:00am September 23, 2023 12:00am September 24, 2023 6:45am Start: 04-21-2022 End: 04-30-2022 take 1 capsule by mouth three times daily Amoxicillin 500 mg capsule Discontinued 500 mg PO THREE TIMES A DAY April 21, 2022 12:58pm April 30, 2022 4:19pm Acute sinusitis Acute sinusitis, unspecified sinus pain Start: 02-19-2021 End: 06-05-2021 take 1 capsule by mouth three times daily Amoxicillin 500 mg capsule Discontinued 500 mg PO THREE TIMES A DAY 20 February 19, 2021 1:00am June 05, 2021 9:35am Acute sinusitis Acute sinusitis, unspecified sinus pain Start: 07-15-2019 End: 07-25-2019 take 2 capsules by mouth twice daily Amoxicillin 500 mg capsule Discontinued 1000 mg PO TWICE A DAY 40 10 July 15, 2019 12:00am July 24, 2019 12:00am July 25, 2019 12:02am Start: 07-15-2019 End: 07-25-2019 take 1000 mg by mouth twice daily Amoxicillin Discontinued 1000 MG PO TWICE A DAY 40 July 15, 2019 12:00am July 25, 2019 12:02am Start: 07-15-2019 End: 07-25-2019 apixaban 5 mg oral tablet (20 sources) Factor Xa Inhibitor Start: 09-19-2023 End: 04-07-2024 take 1 tablet by mouth twice daily Apixaban (Eliquis) 5 mg tablet Discontinued 5 mg PO TWICE A DAY 180 February 05, 2024 10:56am April 07, 2024 12:50pm Start: 09-04-2023 take 1 tablet by rosa th twice daily apixaban (ELIQUIS) 5 mg (74 tabs) Take 1 tablet by mouth two times a day. 09/04/2023 Active Start: 09-04-2023 take 1 tablet by rosa th twice daily apixaban (ELIQUIS) 5 mg (74 tabs) Take 1 tablet by mouth two times a day. 0 09/04/2023 Active aspirin 81 mg chewable tablet (20 sources) Platelet Aggregation Inhibitor, Nonsteroidal Anti-inflammatory Drug Start: 12-14-2021 End: 05-11-2024 take 1 tablet by mouth once daily aspirin 81 mg chewable tablet Take 1 tablet by mouth once daily. 90 tablet 3 12/14/2021 05/11/2024 Discontinued (Discontinued by another Health Care Provider) Start: 09-14-2021 End: 09-19-2023 take 1 tablet by mouth once daily Aspirin 81 mg tablet,delayed release (DR/EC) Discontinued 81 mg PO DAILY 1 September 14, 2021 12:00am September 19, 2023 1:42pm Comment on above: Take 1 tablet by rosa th once daily. aspirin 400 mg / caffeine 32 mg oral tablet (20 sources) Platelet Aggregation Inhibitor, Nonsteroidal Anti-inflammatory Drug, Central Nervous System Stimulant, Methylxanthine Start: 11-27-2018 End: 06-05-2021 Aspirin-Caffeine (Anacin) 400-32 mg tablet Discontinued 1 {tbl} PO EVERY 6 HOURS November 27, 2018 12:00am June 05, 2021 9:35am Start: 11-27-2018 End: 06-05-2021 atorvastatin 20 mg oral tablet (20 sources) HMG-CoA Reductase Inhibitor Start: 03-05-2022 End: 06-01-2022 take 1 tablet by mouth at bedtime Atorvastatin 20 mg tablet Discontinued 20 mg PO AT BEDTIME 30 March 05, 2022 3:30pm April 28, 2022 12:31pm Comment on above: Take 20 mg by mouth daily at bedtime. azithromycin 250 mg oral tablet (20 sources) Macrolide Antimicrobial Start: 03-18-2024 End: 07-09-2024 Azithromycin (Zithromax) 250 mg tablet Discontinued 0 PO .COMPLEX 6 0 March 18, 2024 1:00am July 09, 2024 2:34pm For 250 mg dose pack: take 500 mg today (day 1), then 250 mg for 4 days (days 2-5) PO Start: 12-20-2022 End: 05-30-2023 Azithromycin (Zithromax) 250 mg tablet Discontinued 0 PO .COMPLEX 6 0 December 20, 2022 12:00am May 30, 2023 12:40pm For 250 mg dose pack: take 500 mg today (day 1), then 250 mg for 4 days (days 2-5) PO Start: 07-17-2022 End: 10-19-2022 azithromycin (ZITHROMAX Z-PA K) 250 mg tablet TAKE 2 TABS ON THE FIRST DAY, THEN ONE TAB DAILY FOR 4 DAYS. 6 tablet 0 07/17/2022 10/19/2022 Discontinued Start: 05-19-2022 End: 05-24-2022 Azithromycin 250 mg tablet D iscontinued 0 PO .COMPLEX 6 0 May 19, 2022 1:00am May 24, 2022 12:09pm For 250 mg dose pack: take 500 mg today (day 1), then 250 mg for 4 days (days 2-5) PO Start: 05-19-2022 End: 05-24-2022 Azithromycin Discontinued 0 PO .COMPLEX 6 May 19, 2022 1:00am May 24, 2022 12:09pm For 250 mg dose pack: take 500 mg today (day 1), then 250 mg for 4 days (days 2-5) PO Start: 10-30-2021 End: 11-05-2021 azithromycin (ZITHROMAX) 250 mg tablet 250 mg once daily. 0 10/30/2021 11/05/2021 Active Start: 10-19-2021 End: 10-19-2021 Azithromycin 250 mg tablet D iscontinued 250 mg PO daily 6 October 19, 2021 12:00am October 19, 2021 3:46pm 2 tablets today, then 1 tablet daily on days 2 through 5 Comment on above: 250 mg once daily. TAKE 2 TABS ON THE IRST DAY, THEN ONE TAB DAILY FOR 4 DAYS. bromfenac 0.7 mg/ml ophthalmic solution (6 sources) Nonsteroidal Anti-inflammatory Drug Start: 2 End: 2 PROLENSA 0.07 % drop once daily. 0 07/07/2021 11/03/2021 Discontinued (Course of therapy completed) Comment on above: once daily. calcium carbonate 1500 mg oral tablet (20 sources) Start: 2 End: 3 take 1 tablet by mouth once daily Calcium Carbonate (Calcium 600) 600 mg calcium (1,500 mg) tablet Discontinued 600 mg PO DAILY June 05, 2021 1:00am December 19, 2021 3:07pm Comment on above: Take 600 mg by mouth once daily. cyanocobalamin, vitamin B-12, (VITAMIN B-12 ORAL) (20 sources) End: 5 take 1 tablet by mouth once daily cyanocobalamin, vitamin B-12, (VITAMIN B-12 ORAL) Take 1 tablet by mouth once daily. 05/11/2024 Discontinued (Other) take 1 tablet by rosa th once daily cyanocobalamin, vitamin B-12, (VITAMIN B-12 ORAL) Take 1 tablet by mouth once daily. Active take 1 tablet by rosa th once daily cyanocobalamin, vitamin B-12, (VITAMIN B-12 ORAL) Take 1 tablet by mouth once daily. 0 Active End: 06-01-2022 cyanocobalamin, vitamin B-12 , (VITAMIN B-12 ORAL) Take by mouth. 0 06/01/2022 Discontinued cyanocobalamin, vitamin B-12, (VITAMIN B-12 ORAL) Take by mouth. 0 Active Comment on above: Take by mouth. Take 1 tablet by rosa th once daily. cyclobenzaprine hydrochloride 5 mg oral tablet (20 sources) Muscle Relaxant Start: 11-28-19 End: 12-23-19 take 1 tablet by mouth at bedtime as needed for muscle spasms Cyclobenzaprine 5 mg tablet Discontinued 5 mg PO AT BEDTIME as needed for muscle spasm 10 0 November 27, 2018 12:00am December 22, 2018 1:47pm Start: 11-27-2018 End: 12-22-2018 dexamethasone 4 mg oral tablet (20 sources) Corticosteroid Start: 10-19-2022 End: 05-11-2024 dexAMETHasone (DECADRON) 4 mg tablet Take 2 tablets 12 and 6 hours prior to chemotherapy treatment. 8 tablet 10/19/2022 05/11/2024 Discontinued (Course of therapy completed) Start: 06-01-2022 End: 06-26-2022 dexAMETHasone (DECADRON) 4 m g tablet Take 5 tablets 12 and 6 hours prior to chemotherapy treatment. 10 tablet 5 06/01/2022 06/26/2022 Discontinued Comment on above: Take 5 tablets 12 an d 6 hours prior to chemotherapy treatment. Take 2 tablets 12 an d 6 hours prior to chemotherapy treatment. docusate sodium 50 mg / sennosides, senior living 8.6 mg oral tablet (20 sources) Start: 05-16-19 End: 05-11-19 take 1-2 tablets by mouth once daily as needed, then take 1 tablet by mouth once daily as needed senna-docusate (SENNA WITH DOCUSATE SODIUM) 8.6-50 mg per tablet Take 1-2 tablets by mouth once daily. May increase or decrease as needed to have one soft bowel movement daily 30 tablet 05/16/2022 12:17 PM EST 05/16/2022 05/11/2024 Discontinued (Other) Comment on above: Take 1-2 tablets by mouth once daily. May increase or decrease as needed to have one soft bowel movement daily escitalopram 5 mg oral tablet (20 sources) Serotonin Reuptake Inhibitor Start: 05-21-19 End: 11-27-19 take 1 tablet by mouth once daily as needed for anxiety Escitalopram Oxalate (Lexapro) 5 mg tablet Discontinued 5 mg PO DAILY NEEDED as needed for Anxiety June 29, 2022 9:00pm November 26, 2022 11:30am Comment on above: Take 5 mg by mouth o nce daily. furosemide 20 mg oral tablet (20 sources) Loop Diuretic Start: 05-09-19 End: 05-14-19 take 10 mg by mouth twice daily Furosemide 20 mg tablet Discontinued 10 mg PO TWICE A DAY 0 May 09, 2022 8:07pm May 14, 2022 3:59pm Start: 05-07-2022 End: 05-09-2022 take 10 mg by mouth once daily Furosemide 20 mg tablet Discontinued 10 mg PO DAILY 10 3 0 May 07, 2022 1:00am May 09, 2022 1:00am May 09, 2022 8:07pm Start: 05-07-2022 End: 05-11-2024 take 1 tablet by mouth twice daily Furosemide 20 mg tablet Discontinued 20 mg PO TWICE A DAY 180 May 14, 2022 1:00am May 31, 2022 2:56pm Start: 05-07-2022 End: 05-09-2022 take 10 mg by mouth once daily Furosemide Discontinued 10 MG PO DAILY 10 May 07, 2022 1:00am May 09, 2022 8:07pm Start: 05-07-2022 End: 05-31-2022 take 10 mg by mouth twice daily Furosemide Discontinue d 10 MG PO TWICE A DAY 0 May 09, 2022 8:07pm May 14, 2022 3:59pm Start: 05-07-2022 End: 05-31-2022 take 20 mg by mouth once daily Furosemide Active 20 MG PO DAILY 180 May 31, 2022 2:56pm Comment on above: Take 20 mg by mouth twice daily. Take 20 mg by mouth as needed. gabapentin 100 mg oral capsule (20 sources) Anti-epileptic Agent Start: 9 End: 2 take 1 capsule by mouth three times daily Gabapentin 100 mg capsule Discontinued 100 mg PO THREE TIMES A DAY 30 0 December 22, 2018 12:00am June 05, 2021 9:35am 12 hr guaiFENesin 600 mg extended release oral tablet (20 sources) Start: 3 End: 4 take 1 tablet by mouth every twelve hours as needed for congestion, then take 1 tablet by mouth every twelve hours as needed for congestion Guaifenesin (Mucinex) 600 mg tablet extended release 12hr Discontinued 600 mg PO Q12H as needed for congestion 20 0 December 20, 2022 12:00am July 18, 2023 1:11pm Start: 05-19-2022 take 200 mg by mouth every four hours Guaifenesin Active 200 MG PO Q4H May 19, 2022 1:00am End: 07-02-2022 guaiFENesin 200 mg/5 mL liqd Take by mouth as needed. 0 07/02/2022 Discontinued Comment on above: Take by mouth as nee ded. hydroCHLOROthiazide 12.5 mg / lisinopril 20 mg oral tablet (20 sources) Thiazide Diuretic, Angiotensin Converting Enzyme Inhibitor Start: 2021 End: 11-03-2021 Lisinopril-Hydrochloro thiazide 20-12.5 mg tablet Discontinued 1 {tbl} PO DAILY 60 1 2021 12:00am August 23, 2021 1:44pm On Hold: Order Changed Start: 2021 End: 08-23-2021 take 1 tablet by mouth once daily Lisinopril-Hydrochlorothiazide Discontin ued 1 TABLET PO DAILY 60 2021 12:00am August 23, 2021 1:44pm On Hold: Order Changed Start: 2021 End: 08-23-2021 Comment on above: Take 1 tablet by rosa once daily. ibuprofen 200 mg oral capsule (20 sources) Nonsteroidal Anti-inflammatory Drug Start: 2018 End: 2021 take 1 capsule by mouth every six hours Ibuprofen (Motrin Ib) 200 mg capsule Discontinued 200 mg PO EVERY 6 HOURS November 27, 2018 12:00am June 05, 2021 9:35am magnesium oxide 200 mg oral tablet (20 sources) Start: 2021 End: 2022 take 1 tablet by mouth once daily magnesium oxide 200 mg magnesium tab Take 200 mg by mouth once daily. 0 06/05/2021 05/14/2022 Discontinued Comment on above: Take 200 mg by mouth once daily. methylPREDNISolone 4 mg oral tablet (3 sources) Corticosteroid Start: 2023 End: 2023 take 1 tablet by mouth once Methylprednisolone (Medrol (Asif)) 4 mg tablets,dose pack Discontinued 0 PO per package directions July 18, 2023 12:00am September 19, 2023 1:44pm PO PER PKG DIR for 6 days midodrine hydrochloride 5 mg oral tablet (20 sources) alpha-Adrenergic Agonist Start: 2022 End: 2022 midodrine (PROAMITINE) 5 mg tablet Take 5 mg by mouth as needed. 0 05/31/2022 07/02/2022 Discontinued Start: 05-31-2022 End: 11-26-2022 take 2 tablets by mouth three times daily Midodrine 5 mg Tablet Discontinued 10 mg PO THREE TIMES A DAY 180 30 May 31, 2022 1:00am November 26, 2022 11:30am Start: 05-31-2022 End: 11-26-2022 take 10 mg by mouth three times daily Midodrine Discontinued 10 MG PO THREE TIMES A DAY 180 30 May 31, 2022 1:00am November 26, 2022 11:30am Comment on above: Take 10 mg by mouth three times daily. Take 5 mg by mouth a s needed. nitrofurantoin, macrocrystals 25 mg / nitrofurantoin, monohydrate 75 mg oral capsule (20 sources) Nitrofuran Antibacterial Start: End: take 1 capsule by mouth twice daily at mealtime Nitrofurantoin Monohyd/M-Cryst 100 mg capsule Discontinued 100 mg PO TWICE A DAY 10 December 22, 2018 12:00am July 12, 2020 4:30pm must administer with a meal/food ondansetron 8 mg oral tablet (20 sources) Serotonin-3 Receptor Antagonist Start: 023 End: 025 take 1 tablet by mouth every eight hours as needed for nausea ondansetron (ZOFRAN) 8 mg tablet Indications: cancer chemotherapy-induced nausea and vomiting Take 1 tablet by mouth every 8 hours as needed for nausea/vomiting. 30 tablet 2 06/01/2022 05/11/2024 Discontinued (Patient chooses alternative therapy) Start: 05-31-2022 End: 05-11-2024 take 1 tablet by mouth every eight hours as needed for nausea and vomiting Ondansetron 4 mg tablet,disintegrating Discontinued 4 mg PO Q8H as needed for nausea and vomiting May 31, 2022 1:00am July 18, 2023 1:11pm Comment on above: Take 4 mg by mouth a s needed. Take 1 tablet by rosa th every 8 hours as needed for nausea/vomiting. oxyCODONE hydrochloride 5 mg oral tablet (9 sources) Opioid Agonist Start: 05-16-19 End: 06-02-19 take 1 tablet by mouth every six hours as needed for pain oxyCODONE IR (ROXICODONE) 5 mg immediate release tablet Indications: Postoperative state Take 1 tablet by mouth every 6 hours as needed for pain. 5 tablet 0 05/16/2022 06/01/2022 Discontinued Comment on above: Take 1 tablet by rosa th every 6 hours as needed for pain. microencapsulated potassium chloride 20 meq extended release oral tablet (20 sources) Start: 07-18-19 End: 10-20-19 take 1 tablet by mouth once daily potassium chloride ER (KLOR-CON) 20 mEq tablet Take 1 tablet by mouth once daily. 30 tablet 2 07/17/2022 10/19/2022 Discontinued Start: 05-14-2022 End: 07-02-2022 take 1 tablet by mouth once daily Potassium Chloride 10 mEq tablet,ER particles/crystals Discontinued 10 meq PO DAILY 90 May 14, 2022 1:00am May 31, 2022 2:55pm Start: 04-06-2022 End: 04-06-2022 take 1 tablet by mouth once daily Potassium Chloride 20 mEq tablet extended release Discontinued 20 meq PO DAILY April 06, 2022 1:00am April 06, 2022 3:59pm Start: 04-06-2022 End: 04-06-2022 Start: 04-04-2022 End: 06-01-2022 potassium chloride ER (K-DUR , KLOR-CON) 20 mEq tablet Take 20 mEq by mouth twice daily. 0 04/04/2022 06/01/2022 Discontinued Comment on above: Take 20 mEq by mouth twice daily. Take 1 tablet by rosa once daily. Take 10 mEq by mouth once daily. prednisoLONE acetate 10 mg/ml ophthalmic suspension (6 sources) Corticosteroid Start: 07-07-2021 End: 11-03-2021 prednisoLONE acetate (PRED FORTE, ECONOPRED PLUS) 1 % ophthalmic suspension Instill 1 drop into left eye six times a day Start after surgery, bring unopened bottle with you to surgery. 0 07/07/2021 11/03/2021 Discontinued (Course of therapy completed) Comment on above: Instill 1 drop into left eye six times a day Start after surgery, bring unopened bottle with you to surgery. predniSONE 10 mg oral tablet (20 sources) Start: 09-06-2023 End: 05-11-2024 predniSONE (DELTASONE) 10 mg tablet Indications: Tendonitis of wrist, right 6 tabs po day 1, then 5 tabs day 2, 4 tabs day 3, 3 tabs day 4, 2 tabs day 5, 1 tab day 6. 21 tablet 09/06/2023 05/11/2024 Discontinued (Other) Start: 11-27-2018 End: 12-02-2018 take 2 tablets by mouth once daily Prednisone 20 mg tablet Discontinued 40 mg PO DAILY 10 5 0 November 27, 2018 12:00am December 01, 2018 12:00am December 02, 2018 12:07am Start: 11-27-2018 End: 12-02-2018 take 40 mg by mouth once daily Prednisone Discontinued 40 MG PO DAILY 10 5 November 27, 2018 12:00am December 02, 2018 12:07am vit C/E/cuperic/zinc/lutein (EYE MULTIVIT-LUTEIN,C-E-CU-ZN, ORAL) (20 sources) End: 05-11-2024 vit C/E/cuperic/zinc/lutein (EYE MULTIVIT-LUTEIN,C-E-CU-ZN, ORAL) Take by mouth. 05/11/2024 Discontinued (Other) vit C/E/cuperic/ zinc/lutein (EYE MULTIVIT-LUTEIN,C-E-CU-ZN, ORAL) Take by mouth. Active vit C/E/cuperic/ zinc/lutein (EYE MULTIVIT-LUTEIN,C-E-CU-ZN, ORAL) Take by mouth. 0 Active Comment on above: Take by mouth. Zinc (19 sources) End: 05-11-2024 take 1 tablet by mouth once daily ZINC ORAL Take 1 tablet by mouth once daily. 05/11/2024 Discontinued (Patient chooses alternative therapy) take 1 tablet by mouth once maida y ZINC ORAL Take 1 tablet by mouth once daily. Active take 1 tablet by mouth once maida y ZINC ORAL Take 1 tablet by mouth once daily. 0 Active zinc acetate 25 mg oral capsule (20 sources) Start: 06-05-2021 End: 05-14-2022 take 1 capsule by mouth once daily Zinc Acetate (Galzin) 25 mg (zinc) capsule Discontinued 25 mg PO DAILY June 05, 2021 1:00am December 19, 2021 3:07pm Comment on above: Take 25 mg by mouth once daily. (4 sources) Start: 06-05-2021 End: 12-19-2021 Problems Active Problems Problem Classification Problem Date Documented Da te Episodic/Chronic Abdominal hernia (20 sources) Right inguinal hernia ; Translations: [Unilateral inguinal hernia, without obstruction or gangrene, not specified as recurrent] Episodic Abdominal pain (20 sources) Abdominal pain; Translations: [Unspecified abdominal pain] Episodic Administrative/social admission (4 sources) Persons encountering health services in other specified circumstances; Translations: [Other reasons for seeking consultation] Episodic Allergic reactions (4 sources) Contact dermatitis; Translations: [Unspecified contact dermatitis, unspecified cause] 07-18-2023 Episodic Benign neoplasm of uterus (1 source) Uterine leiomyoma; Translations: [Leiomyoma of uterus, unspecified] Episodic Cancer of ovary (3 sources) Malignant tumor of ovary; Translations: [Malignant neoplasm of unspecified ovary] Onset: 5 03-01-2023 Chronic Cancer of uterus (20 sources) Carcinosarcoma of uterus; Translations: [Malignant neoplasm of uterus, part unspecified] Onset: Chronic Cardiac dysrhythmias (20 sources) Cardiac arrhythmia; Translations: [Cardiac arrhythmia, unspecified] Chronic Chronic kidney disease (20 sources) Chronic kidney disease stage 3B ; Translations: [Stage 3b chronic kidney disease (HCC)] Onset: 3 Chronic Congestive heart failure; nonhypertensive (20 sources) Combined systolic and diastolic dysfunction; Translations: [Unspecified combined systolic (congestive) and diastolic (congestive) heart failure] Onset: 2 Chronic Coronary atherosclerosis and other heart disease (20 sources) Coronary atherosclerosis; Translations: [Atherosclerotic heart disease of [place] coronary artery with other forms of angina pectoris] Onset: 3 Chronic Deficiency and other anemia (2 sources) Anemia; Translations: [Anemia, unspecified] Episodic Diseases of white blood cells (20 sources) Lymphocytosis; 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)] Onset: 2 Chronic Disorders of lipid metabolism (20 sources) Mixed hyperlipidemia; Translations: [Mixed hyperlipidemia] 03-05-2022 Chronic Esophageal disorders (20 sources) Gastroesophageal reflux disease; Translations: [Gastro-esophageal reflux disease without esophagitis] Onset: 3 Chronic Essential hypertension (20 sources) Essential hypertension; Translations: [Essential (primary) hypertension] Onset: 2 Chronic Fever of unknown origin (1 source) Fever, unspecified; Translations: [Fever, unspecified] Onset: 5 Episodic Fluid and electrolyte disorders (20 sources) Hypokalemia; Translations: [Hypokalemia] 04-06-2022 Episodic Genitourinary symptoms and ill-defined conditions (20 sources) Blood in urine; Translations: [Hematuria, unspecified] 12-22-2018 Episodic Glaucoma (20 sources) Glaucoma; Translations: [Unspecified glaucoma] Chronic Heart valve disorders (20 sources) Aortic valve regurgitation; Translations: [Nonrheumatic aortic (valve) insufficiency] Onset: 2 Chronic Hypertension with complications and secondary hypertension (1 source) Hypertensive heart failure; Translations: [Hypertensive heart disease with heart failure] Chronic Immunizations and screening for infectious disease (20 sources) Contact with and (suspected) exposure to other viral communicable diseases; Translations: [Contact with or suspected exposure to other viral communicable disease] Episodic Leukemias (20 sources) Chronic lymphoid leukemia, disease; 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] Onset: Chronic Malignant neoplasm without specification of site (1 source) Malignant neoplastic disease; Translations: [Malignant (primary) neoplasm, unspecified] Chronic Neoplasms of unspecified nature or uncertain behavior (1 source) Neoplastic disease; Translations: [Neoplasm of unspecified behavior of unspecified site] Episodic Nonspecific chest pain (11 sources) Chest pain; Translations: [Chest pain, unspecified] 06-29-2022 Episodic Occlusion or stenosis of precerebral arteries (20 sources) Carotid artery stenosis; Translations: [Occlusion and stenosis of unspecified carotid artery] Chronic Other circulatory disease (20 sources) Elevated blood-pressure reading without diagnosis of hypertension; Translations: [Elevated blood-pressure reading, without diagnosis of hypertension] 06-05-2021 Episodic Other circulatory disease (4 sources) Elevated blood-pressure reading, without diagnosis of hypertension; Translations: [Elevated blood pressure reading without diagnosis of hypertension] Episodic Other circulatory disease (15 sources) Low blood pressure; Translations: [Hypotension, unspecified] 05-25-2022 Episodic Other circulatory disease (1 source) Hypotension, unspecified; Translations: [Hypotension, unspecified] 05-31-2022 Episodic Other connective tissue disease (20 sources) Mass of soft tissue; Translations: [Other specified soft tissue disorders] 08-09-2021 Episodic Other connective tissue disease (4 sources) Other specified soft tissue disorders; Translations: [Other disorders of soft tissue] Episodic Other connective tissue disease (2 sources) Pain in right hand; Translations: [Pain in right hand] 09-06-2023 Episodic Other connective tissue disease (1 source) Tendonitis of right wrist; Translations: [Other enthesopathies, not elsewhere classified] 09-06-2023 Episodic Other connective tissue disease (1 source) Radial styloid tenosynovitis; Translations: [Radial styloid tenosynovitis [de Quervain]] 09-06-2023 Episodic Other diseases of kidney and ureters (2 sources) Acute renal insufficiency; Translations: [Disorder of kidney and ureter, unspecified] 05-24-2022 Episodic Other diseases of kidney and ureters (2 sources) Disorder of kidney and ureter, unspecified; Translations: [Unspecified disorder of kidney and ureter] 05-24-2022 Episodic Other ear and sense organ disorders (20 sources) Tinnitus; Translations: [Tinnitus, unspecified ear] 2021 Episodic Other eye disorders (20 sources) H/O: Bilateral cataract extraction; Translations: [Cataract extraction status, right eye] 09-14-2021 Episodic Other gastrointestinal disorders (20 sources) Altered bowel function; Translations: [Change in bowel habit] 04-04-2022 Episodic Other gastrointestinal disorders (20 sources) Pelvic mass; Translations: [Intra-abdominal and pelvic swelling, mass and lump, unspecified site] 04-05-2022 Episodic Other gastrointestinal disorders (18 sources) Change in bowel habit; Translations: [Other symptoms involving digestive system] Episodic Other gastrointestinal disorders (1 source) Finding of abdomen; Translations: [Generalized intra-abdominal and pelvic swelling, mass and lump] Episodic Other gastrointestinal disorders (6 sources) Swelling; Translations: [Other intra-abdominal and pelvic swelling, mass and lump] Episodic Other gastrointestinal disorders (1 source) Other intra-abdominal and pelvic swelling, mass and lump; Translations: [Other intra-abdominal and pelvic swelling, mass and lump] Onset: Episodic Other gastrointestinal disorders (20 sources) Other ascites; Translations: [Other ascites] 04-30-2022 Episodic Other gastrointestinal disorders (2 sources) Abdominal mass; Translations: [Intra-abdominal and pelvic swelling, mass and lump, unspecified site] 05-24-2022 Episodic Other gastrointestinal disorders (12 sources) Intra-abdominal and pelvic swelling, mass and lump, unspecified site; Translations: [Abdominal or pelvic swelling, mass, or lump, unspecified site] 05-24-2022 Episodic Other inflammatory condition of skin (3 sources) Pruritus of skin; Translations: [Pruritus, unspecified] 05-30-2023 Episodic Other inflammatory condition of skin (1 source) Pruritus, unspecified; Translations: [Unspecified pruritic disorder] 05-30-2023 Episodic Other lower respiratory disease (1 source) Nodule of lung; Translations: [Solitary pulmonary nodule] Episodic Other lower respiratory disease (1 source) Multiple nodules of lung; Translations: [Other nonspecific abnormal finding of lung field] Episodic Other lower respiratory disease (17 sources) Dyspnea; Translations: [Dyspnea, unspecified] 05-20-2022 Episodic Other lower respiratory disease (16 sources) Hypoxia; Translations: [Hypoxemia] 05-24-2022 Episodic Other lower respiratory disease (1 source) Dyspnea, unspecified; Translations: [Other respiratory abnormalities] 05-24-2022 Episodic Other lower respiratory disease (11 sources) Hypoxemia; Translations: [Hypoxemia] 05-24-2022 Episodic Other nervous system disorders (3 sources) Neuropathy caused by chemical substance; 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 Other nervous system disorders (1 source) Drug-induced polyneuropathy; 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)] Onset: Chronic Other nervous system disorders (1 source) Numbness of hand; Translations: [Anesthesia of skin] 09-06-2023 Episodic Other non-traumatic joint disorders (2 sources) Pain in wrist; Translations: [Pain in right wrist] 08-12-2023 Episodic Other nutritional; endocrine; and metabolic disorders (1 source) Hypoalbuminemia; Translations: [Other disorders of plasma-protein metabolism, not elsewhere classified] 05-25-2022 Chronic Other nutritional; endocrine; and metabolic disorders (1 source) Other disorders of plasma-protein metabolism, not elsewhere classified; 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] 05-31-2022 Chronic Other upper respiratory infections (20 sources) Acute maxillary sinusitis; Translations: [Acute maxillary sinusitis, unspecified] Onset: Episodic Otitis media and related conditions (2 sources) Eustachian tube salpingitis; Translations: [Unspecified Eustachian salpingitis, unspecified ear] 09-19-2023 Episodic Christal-; endo-; and myocarditis; cardiomyopathy (except that caused by tuberculosis or sexually transmitted disease) (1 source) Pericardial effusion - noninflammatory; Translations: [Pericardial effusion (noninflammatory)] Episodic Peritonitis and intestinal abscess (4 sources) Peritonitis; Translations: [Peritonitis, unspecified] 04-28-2022 Episodic Pulmonary heart disease (3 sources) Chronic pulmonary embolism; Translations: [Chronic pulmonary embolism] Onset: 5 02-17-2024 Chronic Residual codes; unclassified (17 sources) Edema of lower extremity; Translations: [Localized edema] 05-14-2022 Episodic Residual codes; unclassified (1 source) Postoperative state; Translations: [Other specified postprocedural states] Episodic Residual codes; unclassified (11 sources) Localized edema; Translations: [Edema] 05-24-2022 Episodic Secondary malignancies (16 sources) Malignant ascites; Translations: [Malignant ascites] 05-24-2022 Chronic Secondary malignancies (20 sources) Malignant ascites; Translations: [Malignant ascites] 05-24-2022 Chronic Secondary malignancies (20 sources) Secondary malignant neoplasm of omentum; 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] Onset: 3 Chronic Secondary malignancies (1 source) Secondary malignant neoplasm of retroperitoneum and peritoneum; 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)] Onset: 3 Chronic Sprains and strains (20 sources) Strain of trapezius muscle; Translations: [Strain of other muscles, fascia and tendons at shoulder and upper arm level, right arm, initial encounter] 11-27-2018 Episodic Superficial injury; contusion (20 sources) Contusion of hand; Translations: [Contusion of left hand, initial encounter] 07-12-2020 Episodic Thyroid disorders (8 sources) Hypothyroidism; Translations: [Hypothyroidism, unspecified] 11-15-2022 Chronic Unclassified (5 sources) Discomfort of groin; Translations: [R10.30 - Lower abdominal pain, unspecified] Urinary tract infections (20 sources) Urinary tract infectious disease; Translations: [Urinary tract infection, site not specified] Episodic Viral infection (20 sources) Postherpetic neuralgia; Translations: [Other postherpetic nervous system involvement] 12-22-2018 Episodic Past or Other Problems Problem Classification Problem Date Documented Date Episodic/Chronic Acute and unspecified renal failure (20 sources) Injury of kidney; Translations: [Acute kidney failure, unspecified] Onset: 5 05-25-2022 Episodic Deficiency and other anemia (20 sources) Iron deficiency anemia; Translations: [Other iron deficiency anemias] Onset: 3 Episodic E Codes: Adverse effects of medical drugs (1 source) Adverse effect of antineoplastic and immunosuppressive drugs, initial encounter; 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)] Onset: 5 Episodic Other gastrointestinal disorders (20 sources) Ascites; Translations: [Other ascites] Onset: 3 Episodic Other screening for suspected conditions (not mental disorders or infectious disease) (20 sources) Raised TSH level; Translations: [Other specified abnormal findings of blood chemistry] Onset: 3 Episodic Pleurisy; pneumothorax; pulmonary collapse (20 sources) Pleural effusion; Translations: [Pleural effusion, not elsewhere classified] Onset: 3 05-20-2022 Episodic Residual codes; unclassified (20 sources) History of cardiac catheterization; Translations: [Other specified postprocedural states] Onset: 2 09-29-2021 Episodic Comment on above: RIGHT HEART ASSESSME NTThermal CO: 3.96 Thermal CI: 2.68Fick CO: 8 Paula CI: 5.41PW: 03/11 9PA: 25/01 17RV: 27/04 9RA: 11/05 5PVR: 162 SVR: 1677Right Heart pressures - normalIntracardiac shunting: NoneLEFT MAIN: Angiographically normal; LEFT ANTERIOR DESCENDING ARTERY: MID LAD: 25 % Stenosis; CIRCUMFLEX ARTERY: Angiographically normal; RIGHT CORONARY ARTERY: Angiographically normal; RECOMMENDATIONS: Surgery consult for Valve Replacement surgery (possible TAVR) per cardiac cath Dr. Puri 09/29/21 Screening and history of mental health and substance abuse codes (20 sources) Ex-smoker; Translations: [Personal history of nicotine dependence] Onset: 3 Episodic Results Test Name Value Interpretation Reference Range Facility CBC W Auto Differential pane l (Bld)on 12-28-2024 Basophils (Bld) [#/Vol] 0.15 10*3/uL High <0.11 [facility] Comment on above: Order Comment: Speci men Type: BLOOD SPECIMENOrdering Facility: [facility] Address: [address] [place] [address] Performed By: #### 5 7021-8 ####[facility] [id number] [place] [id number] [place] [facility] LABCLIA [id number] [address] OF [facility] Basophils/100 WBC (Bld) 1.0 % Normal [facility] Comment on above: Order Comment: Speci men Type: BLOOD SPECIMENOrdering Facility: [facility] Address: [address] [place] [address] Performed By: #### 5 7021-8 ####[facility] MILLTOWNCLIA [id number] [place] [address] [place] [facility] LABCLIA [id number] [place] [id number] [place] Dacrocytes LM Ql (Bld) Few Normal Cl [facility] Comment on above: Order Comment: Speci men Type: BLOOD SPECIMENOrdering Facility: [facility] Address: [address] [place] [address] Performed By: #### 5 7021-8 ####[facility] HOS[facility]ITALWNCLIA [id number] [place] [address] [place] [facility] LABCLIA [id number] [place] [address] [place] Differential cell count method Nom (Bld) Manual Normal [facility] Comment on above: Order Comment: Speci men Type: BLOOD SPECIMENOrdering Facility: [facility] Address: [address] [place] [address] Performed By: #### 5 7021-8 ####[facility] MILLWNCLIA [id number] [place] [address] [place] [facility] LABCLIA [id number] [place] [address] [place] Eosinophils (Bld) [#/Vol] 0.31 10*3/uL Normal <0.46 [facility] Comment on above: Order Comment: Speci men Type: BLOOD SPECIMENOrdering Facility: [facility] Address: [address] [place] [address] Performed By: #### 5 7021-8 ####[facility] MILLWNCLIA [id number] [address] LABCLIA [id number] [facility] [address] [place] [address] [place] Eosinophils/100 WBC (Bld) 2.0 % Normal [facility] Comment on above: Order Comment: Speci men Type: BLOOD SPECIMENOrdering Facility: [facility] Address: [address] [place] [address] Performed By: #### 5 7021-8 ####[facility] MILLWNCLIA [id number] [address] LABCLIA [id number] [facility] [address] [place] [address] [place] Erythrocyte distribution width (RBC) [Ratio] 14.5 % Normal 11.5-15.0 [facility] Comment on above: Order Comment: Speci men Type: BLOOD SPECIMENOrdering Facility: [facility] Address: [address] [place] [address] Performed By: #### 5 7021-8 ####[facility] HOSPITALWSCLIA [id number] [address] LABCLIA [id number] [address] [place] [address] [place] Hematocrit (Bld) [Volume fraction] 37.4 % Normal 36.0-46.0 [facility] Comment on above: Order Comment: Speci men Type: BLOOD SPECIMENOrdering Facility: [facility] Address: [address] [place], [place] [address] Performed By: #### 5 7021-8 ####[facility]OS[facility]ITALWNCLIA [id number] [address] LABCLIA [id number] [facility] [address] [place] [address] [place] Hemoglobin (Bld) [Mass/Vol] 12.3 g/dL Normal 11.5-15.5 [facility] Comment on above: Order Comment: Speci men Type: BLOOD SPECIMENOrdering Facility: [facility] Address: [address] [place] [address] Performed By: #### 5 7021-8 ####[facility]OS[facility]ITALWNCLIA [id number] [address] LABCLIA [id number] [place] [address] [place] Lymphocytes (Bld) [#/Vol] 10.86 10*3/uL High 1.00-4.00 [facility] Comment on above: Order Comment: Speci men Type: BLOOD SPECIMENOrdering Facility: [facility] Address: [address] [place] [address] Performed By: #### 5 7021-8 ####[facility]NCLIA [id number] [address] LABCLIA [id number] [place] [id number] [place] Lymphocytes/100 WBC (Bld) 71.0 % Normal [facility] Comment on above: Order Comment: Speci men Type: BLOOD SPECIMENOrdering Facility: [facility] Address: [address] [place] [address] Performed By: #### 5 7021-8 ####[facility]CL[facility] [id number] [address] LABCLIA [id number] [place] [id number] [place] MCH (RBC) [Entitic mass] 31.7 pg Normal 26.0-34.0 [facility] Comment on above: Order Comment: Speci men Type: BLOOD SPECIMENOrdering Facility: [facility] Address: [address] [place] [address] Performed By: #### 5 7021-8 ####[facility] MILLTOWNCLIA [id number] [address] LABCLIA [id number] [place] [address] [place] MCHC (RBC) [Mass/Vol] 32.9 g/dL Normal 30.5-36.0 [facility] Comment on above: Order Comment: Speci men Type: BLOOD SPECIMENOrdering Facility: [facility] Address: [address] [place] [address] Performed By: #### 5 7021-8 ####[facility] [id number] [address] LABCLIA [id number] [place] [address] [place] MCV (RBC) [Entitic vol] 96.4 fL Normal 80.0-100.0 [facility] Comment on above: Order Comment: Speci men Type: BLOOD SPECIMENOrdering Facility: [facility] Address: [address] [place] [address] Performed By: #### 5 7021-8 ####[facility]OSPITALWNCLIA [id number] [address] LABCLIA [id number] [place] [address] [place] Monocytes (Bld) [#/Vol] 1.07 10*3/uL High <0.87 [facility] Comment on above: Order Comment: Speci men Type: BLOOD SPECIMENOrdering Facility: [facility] Address: [address] [place] [address] Performed By: #### 5 7021-8 ####[facility] MILLTOWNCLIA [id number] [address] LABCLIA [id number] [address] [address] [place] Monocytes/100 WBC (Bld) 7.0 % Normal [facility] Comment on above: Order Comment: Speci men Type: BLOOD SPECIMENOrdering Facility: [facility] Address: [address] [place] [address] Performed By: #### 5 7021-8 ####[facility] MILLTOWNCLIA [id number] [place] [address] [place] [facility] LABCLIA [id number] [place] [address] [place] Neutrophils (Bld) [#/Vol] 2.91 10*3/uL Normal 1.45-7.50 [facility] Comment on above: Order Comment: Speci men Type: BLOOD SPECIMENOrdering Facility: [facility] Address: [address] [place] [address] Performed By: #### 5 7021-8 ####[facility] MILLWNCLIA [id number] [address] LABCLIA [id number] [address] [place] Neutrophils/100 WBC (Bld) 19.0 % Normal [facility] Comment on above: Order Comment: Speci men Type: BLOOD SPECIMENOrdering Facility: [facility] Address: [address] [place] [address] Performed By: #### 5 7021-8 ####[facility] MILLTOWNCLIA [id number] [place] [address] [place] [facility] LABCLIA [id number] [place] [address] [place] Nucleated RBC (Bld) [#/Vol] 10*3/uL Normal <0.01 [facility] Comment on above: Order Comment: Speci men Type: BLOOD SPECIMENOrdering Facility: [facility] Address: [address] [place] [address] Performed By: #### 5 7021-8 ####[facility] MILLTOWNCLIA [id number] [place] [address] [place] [facility] LABCLIA [id number] [place] [address] [place] Nucleated RBC/100 WBC (Bld) [Ratio] 0.0 /100 WBC Normal [facility] Comment on above: Order Comment: Speci men Type: BLOOD SPECIMENOrdering Facility: [facility] Address: [address] [place] [address] Performed By: #### 5 7021-8 ####[facility]ITALWNCLIA [id number] [place] [address] [place] [facility] LABCLIA [id number] [place] [address] [place] Ovalocytes LM Ql (Bld) Few Normal Cl [facility] Comment on above: Order Comment: Speci men Type: BLOOD SPECIMENOrdering Facility: [facility] Address: [address] [place] [address] Performed By: #### 5 7021-8 ####[facility]ITALWNCLIA [id number] [place] [address] [place] [facility] LABCLIA [id number] [address] [place] [facility] [place] Platelet mean volume (Bld) [Entitic vol] 9.9 fL Normal 9.0-12.7 [facility] Comment on above: Order Comment: Speci men Type: BLOOD SPECIMENOrdering Facility: [facility] Address: [address] [place] [address] Performed By: #### 5 7021-8 ####[facility] MILLTOWNCLIA [id number] [place] [address] [place] [facility] LABCLIA [id number] [address] [address] [place] Platelets (Bld) [#/Vol] 170 10*3/uL Normal 150-400 [facility] Comment on above: Order Comment: Speci men Type: BLOOD SPECIMENOrdering Facility: [facility] Address: [address] [place] [address] Performed By: #### 5 7021-8 ####[facility] MILLTOWNCLIA [id number] [address] LABCLIA [id number] [place] [address] [place] Platelets Estimate (Bld) [#/Vol] Adequate Normal [facility] Comment on above: Order Comment: Speci men Type: BLOOD SPECIMENOrdering Facility: [facility] Address: [address] [place] [address] Performed By: #### 5 7021-8 ####[facility]ITALWNCLIA [id number] [address] LABCLIA [id number] [address] [address] [place] RBC (Bld) [#/Vol] 3.88 10*6/uL Low 3.90-5.20 [facility] Comment on above: Order Comment: Speci men Type: BLOOD SPECIMENOrdering Facility: [facility] Address: [address] [place] [address] Performed By: #### 5 7021-8 ####[facility] MILLWNCLIA [id number] [address] LABCLIA [id number] [address] [address] [place] RED CELL MORPH Reviewed: see result s of individual morphologies Normal [facility] Comment on above: Order Comment: Speci men Type: BLOOD SPECIMENOrdering Facility: [facility] Address: [address] [place] [address] Performed By: #### 5 7021-8 ####[facility]ITALWNCLIA [id number] [address] LABCLIA [id number] [place] [address] [place] Target cells LM Ql (Bld) Few Normal [facility] Comment on above: Order Comment: Speci men Type: BLOOD SPECIMENOrdering Facility: [facility] Address: [address] [place] [address] Performed By: #### 5 7021-8 ####[facility] [id number] [address] LABCLIA [id number] [place] [address] [place] WBC (Bld) [#/Vol] 15.29 10*3/uL High 3.70-11.00 [facility] Comment on above: Order Comment: Speci men Type: BLOOD SPECIMENOrdering Facility: [facility] Address: [address] [place] [address] Performed By: #### 5 7021-8 ####[facility] [id number] [address] LABCLIA [id number] [place] [address] [place] Cancer Ag125 SerPl-aCncon Cancer Ag 125 Qn 19 [arb'U]/mL Normal <39 [facility] Comment on above: Order Comment: Speci men Type: BLOOD SPECIMENOrdering Facility: [facility] Address: [address] [place] [address] Result Comment: CA 1 25 test methodology used is the Electrochemiluminescence Immunoassay by [employer]. Results obtained with different methods or kits cannot be used interchangeably.The reference interval is based on the 95th percentile of 240 apparently healthy premenopausal and postmenopausal women. At a cutoff value of 65 U/mL, the test sensitivity to distinguish ovarian carcinoma (FIGO stage I to IV) versus benign gynecological disease is 79%, with a specificity of 82%.Reference: Cancer Antigen 125 (CA 125 II) [package insert V 1.0 [place]]. [employer], [place], [place] (December 2014) Performed By: #### 1 0334-1 ####[facility] LABCLIA [id number] [place] [address] [place] Comprehensive metabolic 2000 panelon 12-28-2024 Albumin [Mass/Vol] 4.2 g/dL Normal 3.9-4.9 [facility] Comment on above: Order Comment: Speci men Type: BLOOD SPECIMENOrdering Facility: [facility] Address: [address] [place] [address] Performed By: #### 2 4323-8 ####[facility] HOSPITALWSCLIA [id number] [place] [address] [place] ALP [Catalytic activity/Vol] 89 U/L Normal 34-123 [facility] Comment on above: Order Comment: Speci men Type: BLOOD SPECIMENOrdering Facility: [facility] Address: [address] [place] [address] Performed By: #### 2 4323-8 ####[facility] HOSPITALWNCLIA [id number] [place] [address] [place] ALT [Catalytic activity/Vol] 10 U/L Normal 7-38 [facility] Comment on above: Order Comment: Speci men Type: BLOOD SPECIMENOrdering Facility: [facility] Address: [address] [place] [address] Performed By: #### 2 4323-8 ####[facility] HOSPITALWNCLIA [id number] [place] [address] [place] Anion gap [Moles/Vol] 15 mmol/L Normal 8-15 [facility] Comment on above: Order Comment: Speci men Type: BLOOD SPECIMENOrdering Facility: [facility] Address: [address] [place] [address] Performed By: #### 2 4323-8 ####[facility] HOSPITALWNCLIA [id number] [place] [address] [place] AST [Catalytic activity/Vol] 23 U/L Normal 13-35 [facility] Comment on above: Order Comment: Speci men Type: BLOOD SPECIMENOrdering Facility: [facility] Address: [address] [place] [address] Performed By: #### 2 4323-8 ####[facility] PINELLASNCLIA [id number] [place] [address] [place] Bilirubin [Mass/Vol] 0.9 mg/dL Normal 0.2-1.3 [facility] Comment on above: Order Comment: Speci men Type: BLOOD SPECIMENOrdering Facility: [facility] Address: [address] [place] [address] Performed By: #### 2 4323-8 ####[facility] PINELLASNCLIA [id number] [place] [address] [place] Calcium [Mass/Vol] 9.2 mg/dL Normal 8.5-10.2 [facility] Comment on above: Order Comment: Speci men Type: BLOOD SPECIMENOrdering Facility: [facility] Address: [address] [place] [address] Performed By: #### 2 4323-8 ####[facility] P[facility]LLASNCLIA [id number] [place] [address] [place] Chloride [Moles/Vol] 104 mmol/L Normal 98-107 [facility] Comment on above: Order Comment: Speci men Type: BLOOD SPECIMENOrdering Facility: [facility] Address: [address] [place] [address] Performed By: #### 2 4323-8 ####[facility] MARIANNEWNCLIA [id number] [place] [address] [place] CO2 [Moles/Vol] 19 mmol/L Low 22-30 [facility] Comment on above: Order Comment: Speci men Type: BLOOD SPECIMENOrdering Facility: [facility] Address: [address] [place] [address] Performed By: #### 2 4323-8 ####[facility] P[facility]LLASNCLIA [id number] [place] [address] [place] Creatinine [Mass/Vol] 1.50 mg/dL High 0.58-0.96 [facility] Comment on above: Order Comment: Speci men Type: BLOOD SPECIMENOrdering Facility: [facility] Address: [address] [place] [address] Performed By: #### 2 4323-8 ####[facility] P[facility]LLASNCLIA [id number] [place] [address] [place] eGFRcr SerPlBld CKD-EPI 2020 34 mL/min/1.73m??? Low >=60 [facility] Comment on above: Order Comment: Speci men Type: BLOOD SPECIMENOrdering Facility: [facility] Address: [address] [place] [address] Result Comment: Irina mated Glomerular Filtration Rate (eGFR) is calculated using the 2020 CKD-EPI creatinine equation. This equation utilizes serum creatinine, sex, and age as parameters. The creatinine assay has traceable calibration to isotope dilution-mass spectrometry. Refer to KDIGO guidelines for clinical interpretation. In patients with unstable renal function, e.g. those with acute kidney injury, the eGFR may not accurately reflect actual GFR. Performed By: #### 2 4323-8 ####[facility] ANDRESWNCLIA [id number] [place] [address] [place] Glucose [Mass/Vol] 99 mg/dL Normal 74-99 [facility] Comment on above: Order Comment: Speci men Type: BLOOD SPECIMENOrdering Facility: [facility] Address: [address] [place], [place] [address] Result Comment: The [place] Diabetes Association (ADA) provides guidance for cutoff values for fasting glucose and random glucose. The ADA defines fasting as no caloric intake for at least 8 hours. Fasting plasma glucose results between 100 to 125 mg/dL indicate increased risk for diabetes (prediabetes).Fasting plasma glucose results greater than or equal to 126 mg/dL meet the criteria for diagnosis of diabetes. In the absence of unequivocal hyperglycemia, results should be confirmed by repeat testing. In a patient with classic symptoms of hyperglycemia or hyperglycemic crisis, random plasma glucose results greater than or equal to 200 mg/dL meet the criteria for diagnosis of diabetes.Reference: Standards of Medical Care in Diabetes 2016, [place] Diabetes Association. Diabetes Care. 2016.39(Suppl 1). Performed By: #### 2 4323-8 ####[facility]THTOWNCLIA [id number] [place] [address] [place] Potassium [Moles/Vol] 4.3 mmol/L Normal 3.7-5.1 [facility] Comment on above: Order Comment: Speci men Type: BLOOD SPECIMENOrdering Facility: [facility] Address: [address] [place], [place] [address] Performed By: #### 2 4323-8 ####[facility]THTOWNCLIA [id number] [place] [address] [place] Protein [Mass/Vol] 6.7 g/dL Normal 6.3-8.0 [facility] Comment on above: Order Comment: Speci men Type: BLOOD SPECIMENOrdering Facility: [facility] Address: [address] [place], [place] [address] Performed By: #### 2 4323-8 ####[facility] HOSPITALWNCLIA [id number] [place] [address] [place] Sodium [Moles/Vol] 138 mmol/L Normal 136-144 [facility] Comment on above: Order Comment: Speci men Type: BLOOD SPECIMENOrdering Facility: [facility] Address: [address] [place] [address] Performed By: #### 2 4323-8 ####[facility] ROSALIAA [id number] [place] [address] [place] Urea nitrogen [Mass/Vol] 22 mg/dL High 7-21 [facility] Comment on above: Order Comment: Speci men Type: BLOOD SPECIMENOrdering Facility: [facility] Address: [address] [place] [address] Performed By: #### 2 4323-8 ####[facility]ERTA [id number] [place] [address] [place] CNPNon 12-21-2024 CNPN Normal [facility] CBC W Auto Differential pane l (Bld)on 12-01-2024 Basophils (Bld) [#/Vol] 0.16 10*3/uL High <0.11 [facility] Comment on above: Order Comment: Speci men Type: BLOOD SPECIMENOrdering Facility: [facility] Address: [address] [place] [address] Performed By: #### 5 7021-8 ####[facility] MARIANNEWGRICELA [id number] [address] STATES [facility] LABORATORYCLIA [id number] [place] [address] [place] Basophils/100 WBC (Bld) 1.0 % Normal [facility] Comment on above: Order Comment: Speci men Type: BLOOD SPECIMENOrdering Facility: [facility] Address: [address] [place] [address] Performed By: #### 5 7021-8 ####[facility]THTOWNCLIA [id number] [address] LABORATORYCLIA [id number] [place] [address] [place] Differential cell count method Nom (Bld) Manual Normal [facility] Comment on above: Order Comment: Speci men Type: BLOOD SPECIMENOrdering Facility: [facility] Address: [address] [place] [address] Performed By: #### 5 7021-8 ####[facility] HOSPITALWNCLIA [id number] [address] LABORATORYCLIA [id number] [place] [address] [place] Eosinophils (Bld) [#/Vol] 0.32 10*3/uL Normal <0.46 [facility] Comment on above: Order Comment: Speci men Type: BLOOD SPECIMENOrdering Facility: [facility] Address: [address] [place] [address] Performed By: #### 5 7021-8 ####[facility] HOSPITALLIA [id number] [address] LABORATORYCLIA [id number] [place] [address] [place] Eosinophils/100 WBC (Bld) 2.0 % Normal [facility] Comment on above: Order Comment: Speci men Type: BLOOD SPECIMENOrdering Facility: [facility] Address: [address] [place] [address] Performed By: #### 5 7021-8 ####[facility] HOSPITALLIA [id number] [address] LABORATORYCLIA [id number] [place] [address] [place] Erythrocyte distribution width (RBC) [Ratio] 14.7 % Normal 11.5-15.0 [facility] Comment on above: Order Comment: Speci men Type: BLOOD SPECIMENOrdering Facility: [facility] Address: [address] [place] [address] Performed By: #### 5 7021-8 ####[facility] HOSPITALWNCLIA [id number] [address] LABORATORYCLIA [id number] [place] [address] [place] Hematocrit (Bld) [Volume fraction] 40.0 % Normal 36.0-46.0 [facility] Comment on above: Order Comment: Speci men Type: BLOOD SPECIMENOrdering Facility: [facility] Address: [address] [place] [address] Performed By: #### 5 7021-8 ####[facility] HOSPITALLIA [id number] [address] LABORATORYCLIA [id number] [place] [address] [place] Hemoglobin (Bld) [Mass/Vol] 13.1 g/dL Normal 11.5-15.5 [facility] Comment on above: Order Comment: Speci men Type: BLOOD SPECIMENOrdering Facility: [facility] Address: [address] [place] [address] Performed By: #### 5 7021-8 ####[facility] HOSPITALLIA [id number] [address] LABORATORYIA [id number] [place] [address] [place] Lymphocytes (Bld) [#/Vol] 12.57 10*3/uL High 1.00-4.00 [facility] Comment on above: Order Comment: Speci men Type: BLOOD SPECIMENOrdering Facility: [facility] Address: [address] [place] [address] Performed By: #### 5 7021-8 ####[facility] MILLTOWNCLIA [id number] [address] LABORATORYCLIA [id number] [address] Lymphocytes/100 WBC (Bld) 79.0 % Normal [facility] Comment on above: Order Comment: Speci men Type: BLOOD SPECIMENOrdering Facility: [facility] Address: [address] [place] [address] Performed By: #### 5 7021-8 ####[facility] MILLWNCLIA [id number] [address] LABORATORYCLIA [id number] [place] [address] [place] MCH (RBC) [Entitic mass] 32.3 pg Normal 26.0-34.0 [facility] Comment on above: Order Comment: Speci men Type: BLOOD SPECIMENOrdering Facility: [facility] Address: [address] [place] [address] Performed By: #### 5 7021-8 ####[facility]TOWNCLIA [id number] [address] LABORATORYCLIA [id number] [place] [address] [place] MCHC (RBC) [Mass/Vol] 32.8 g/dL Normal 30.5-36.0 [facility] Comment on above: Order Comment: Speci men Type: BLOOD SPECIMENOrdering Facility: [facility] Address: [address] [place] [address] Performed By: #### 5 7021-8 ####[facility] MILLTOWNCLIA [id number] [address] LABORATORYCLIA [id number] [address] STATES OF [facility] MCV (RBC) [Entitic vol] 98.5 fL Normal 80.0-100.0 [facility] Comment on above: Order Comment: Speci men Type: BLOOD SPECIMENOrdering Facility: [facility] Address: [address] [place] [address] Performed By: #### 5 7021-8 ####[facility] HOSPITALWNCLIA [id number] [address] LABORATORYCLIA [id number] [place] [address] [place] Monocytes (Bld) [#/Vol] 0.48 10*3/uL Normal <0.87 [facility] Comment on above: Order Comment: Speci men Type: BLOOD SPECIMENOrdering Facility: [facility] Address: [address] [place] [address] Performed By: #### 5 7021-8 ####[facility] HOSPITALWSCLIA [id number] [address] LABORATORYCLIA [id number] [address] Monocytes/100 WBC (Bld) 3.0 % Normal [facility] Comment on above: Order Comment: Speci men Type: BLOOD SPECIMENOrdering Facility: [facility] Address: [address] [place] [address] Performed By: #### 5 7021-8 ####[facility]LLASNCLIA [id number] [address] LABORATORYCLIA [id number] [address] [place] Neutrophils (Bld) [#/Vol] 2.39 10*3/uL Normal 1.45-7.50 [facility] Comment on above: Order Comment: Speci men Type: BLOOD SPECIMENOrdering Facility: [facility] Address: [address] [place] [address] Performed By: #### 5 7021-8 ####[facility] MILLTOWNCLIA [id number] [address] LABORATORYCLIA [id number] [place] [address] [place] Neutrophils/100 WBC (Bld) 15.0 % Normal [facility] Comment on above: Order Comment: Speci men Type: BLOOD SPECIMENOrdering Facility: [facility] Address: [address] [place] [address] Performed By: #### 5 7021-8 ####[facility] HOSPITALWNCLIA [id number] [address] LABORATORYCLIA [id number] [place] [address] [place] Nucleated RBC (Bld) [#/Vol] 10*3/uL Normal <0.01 [facility] Comment on above: Order Comment: Speci men Type: BLOOD SPECIMENOrdering Facility: [facility] Address: [address] [place] [address] Performed By: #### 5 7021-8 ####[facility]THTOWNCLIA [id number] [address] LABORATORYCLIA [id number] [place] [address] [place] Nucleated RBC/100 WBC (Bld) [Ratio] 0.0 /100 WBC Normal [facility] Comment on above: Order Comment: Speci men Type: BLOOD SPECIMENOrdering Facility: [facility] Address: [address] [place] [address] Performed By: #### 5 7021-8 ####[facility] MILLTOWNCLIA [id number] [address] LABORATORYCLIA [id number] [place] [address] [place] Ovalocytes LM Ql (Bld) Few Normal Cl [facility] Comment on above: Order Comment: Speci men Type: BLOOD SPECIMENOrdering Facility: [facility] Address: [address] [place] [address] Performed By: #### 5 7021-8 ####[facility] MILLTOWNCLIA [id number] [address] LABORATORYCLIA [id number] [place] [address] [place] Platelet mean volume (Bld) [Entitic vol] 9.4 fL Normal 9.0-12.7 [facility] Comment on above: Order Comment: Speci men Type: BLOOD SPECIMENOrdering Facility: [facility] Address: [address] [place] [address] Performed By: #### 5 7021-8 ####[facility] MILLTOWNCLIA [id number] [address] LABORATORYCLIA [id number] [place] [address] [place] Platelets (Bld) [#/Vol] 145 10*3/uL Low 150-400 [facility] Comment on above: Order Comment: Speci men Type: BLOOD SPECIMENOrdering Facility: [facility] Address: [address] [place] [address] Performed By: #### 5 7021-8 ####[facility] MILLTOWNCLIA [id number] [address] LABORATORYCLIA [id number] [place] [address] [place] Platelets Estimate (Bld) [#/Vol] Decreased Normal [facility] Comment on above: Order Comment: Speci men Type: BLOOD SPECIMENOrdering Facility: [facility] Address: [address] [place] [address] Performed By: #### 5 7021-8 ####[facility] ANDRESTOWNCLIA [id number] [address] LABORATORYCLIA [id number] [place] [address] [facility] [place] RBC (Bld) [#/Vol] 4.06 10*6/uL Normal 3.90-5.20 [facility] Comment on above: Order Comment: Speci men Type: BLOOD SPECIMENOrdering Facility: [facility] Address: [address] [place] [address] Performed By: #### 5 7021-8 ####[facility] HOSPITALWNCLIA [id number] [address] LABORATORYCLIA [id number] [place] [address] [place] RED CELL MORPH Reviewed: see result s of individual morphologies Normal [facility] Comment on above: Order Comment: Speci men Type: BLOOD SPECIMENOrdering Facility: [facility] Address: [address] [place] [address] Performed By: #### 5 7021-8 ####[facility] HOSPITALWNCLIA [id number] [address] LABORATORYCLIA [id number] [place] [address] [place] WBC (Bld) [#/Vol] 15.91 10*3/uL High 3.70-11.00 [facility] Comment on above: Order Comment: Speci men Type: BLOOD SPECIMENOrdering Facility: [facility] Address: [address] [place] [address] Performed By: #### 5 7021-8 ####[facility] MILLTOWNCLIA [id number] [address] LABORATORYCLIA [id number] [place] [address] [place] Cancer Ag125 SerPl-aCncon Cancer Ag 125 Qn 19 [arb'U]/mL Normal <39 [facility] Comment on above: Order Comment: Speci men Type: BLOOD SPECIMENOrdering Facility: [facility] Address: [address] [place] [address] Result Comment: CA 1 25 test methodology used is the Electrochemiluminescence Immunoassay by [employer]. Results obtained with different methods or kits cannot be used interchangeably.The reference interval is based on the 95th percentile of 240 apparently healthy premenopausal and postmenopausal women. At a cutoff value of 65 U/mL, the test sensitivity to distinguish ovarian carcinoma (FIGO stage I to IV) versus benign gynecological disease is 79%, with a specificity of 82%.Reference: Cancer Antigen 125 (CA 125 II) [package insert V 1.0 [place]]. [employer], [place], [place] (December 2014) Performed By: #### 1 0334-1 ####[facility] LABCLIA [id number] [place] [address] [place] Comprehensive metabolic 2000 panelon 12-01-2024 Albumin [Mass/Vol] 4.4 g/dL Normal 3.9-4.9 [facility] Comment on above: Order Comment: Speci men Type: BLOOD SPECIMENOrdering Facility: [facility] Address: [address] [place] [address] Performed By: #### 2 4323-8 ####[facility] [id number] [place] [address] [place] ALP [Catalytic activity/Vol] 96 U/L Normal 34-123 [facility] Comment on above: Order Comment: Speci men Type: BLOOD SPECIMENOrdering Facility: [facility] Address: [address] [place] [address] Performed By: #### 2 4323-8 ####[facility] MILLTOWNCLIA [id number] [place] [address] [place] ALT [Catalytic activity/Vol] 13 U/L Normal 7-38 [facility] Comment on above: Order Comment: Speci men Type: BLOOD SPECIMENOrdering Facility: [facility] Address: [address] [place] [address] Performed By: #### 2 4323-8 ####[facility] MILLTOWNCLIA [id number] [place] [address] [place] Anion gap [Moles/Vol] 13 mmol/L Normal 8-15 [facility] Comment on above: Order Comment: Speci men Type: BLOOD SPECIMENOrdering Facility: [facility] Address: [address] [place] [address] Performed By: #### 2 4323-8 ####[facility] MILLTOWNCLIA [id number] [place] [address] [place] AST [Catalytic activity/Vol] 25 U/L Normal 13-35 [facility] Comment on above: Order Comment: Speci men Type: BLOOD SPECIMENOrdering Facility: [facility] Address: [address] [place] [address] Performed By: #### 2 4323-8 ####[facility] MILLTOWNCLIA [id number] [place] [address] [place] Bilirubin [Mass/Vol] 0.7 mg/dL Normal 0.2-1.3 [facility] Comment on above: Order Comment: Speci men Type: BLOOD SPECIMENOrdering Facility: [facility] Address: [address] [place] [address] Performed By: #### 2 4323-8 ####[facility] MILLTOWNCLIA [id number] [place] [address] [place] Calcium [Mass/Vol] 9.6 mg/dL Normal 8.5-10.2 [facility] Comment on above: Order Comment: Speci men Type: BLOOD SPECIMENOrdering Facility: [facility] Address: [address] [place] [address] Performed By: #### 2 4323-8 ####[facility] HOSPITALWNCLIA [id number] [place] [address] [place] Chloride [Moles/Vol] 102 mmol/L Normal 98-107 [facility] Comment on above: Order Comment: Speci men Type: BLOOD SPECIMENOrdering Facility: [facility] Address: [address] [place] [address] Performed By: #### 2 4323-8 ####[facility] HOSPITALWNCLIA [id number] [place] [address] [place] CO2 [Moles/Vol] 23 mmol/L Normal 22-30 [facility] Comment on above: Order Comment: Speci men Type: BLOOD SPECIMENOrdering Facility: [facility] Address: [address] [place] [address] Performed By: #### 2 4323-8 ####[facility] [id number] [place] [address] [place] Creatinine [Mass/Vol] 1.23 mg/dL High 0.58-0.96 [facility] Comment on above: Order Comment: Speci men Type: BLOOD SPECIMENOrdering Facility: [facility] Address: [address] [place] [address] Performed By: #### 2 4323-8 ####[facility] PINELLASNCLIA [id number] [place] [address] [place] eGFRcr SerPlBld CKD-EPI 2020 43 mL/min/1.73m??? Low >=60 [facility] Comment on above: Order Comment: Speci men Type: BLOOD SPECIMENOrdering Facility: [facility] Address: [address] [place] [address] Result Comment: Irina mated Glomerular Filtration Rate (eGFR) is calculated using the 2020 CKD-EPI creatinine equation. This equation utilizes serum creatinine, sex, and age as parameters. The creatinine assay has traceable calibration to isotope dilution-mass spectrometry. Refer to KDIGO guidelines for clinical interpretation. In patients with unstable renal function, e.g. those with acute kidney injury, the eGFR may not accurately reflect actual GFR. Performed By: #### 2 4323-8 ####[facility] WILLISTONChar [id number] [place] [address] [place] Glucose [Mass/Vol] 117 mg/dL High 74-99 [facility] Comment on above: Order Comment: Zeus stanton Type: BLOOD SPECIMENOrdering Facility: [facility] Address: [address] [place] [address] Result Comment: The [place] Diabetes Association (ADA) provides guidance for cutoff values for fasting glucose and random glucose. The ADA defines fasting as no caloric intake for at least 8 hours. Fasting plasma glucose results between 100 to 125 mg/dL indicate increased risk for diabetes (prediabetes).Fasting plasma glucose results greater than or equal to 126 mg/dL meet the criteria for diagnosis of diabetes. In the absence of unequivocal hyperglycemia, results should be confirmed by repeat testing. In a patient with classic symptoms of hyperglycemia or hyperglycemic crisis, random plasma glucose results greater than or equal to 200 mg/dL meet the criteria for diagnosis of diabetes.Reference: Standards of Medical Care in Diabetes 2016, [place] Diabetes Association. Diabetes Care. 2016.39(Suppl 1). Performed By: #### 2 4323-8 ####[facility] [id number] [place] [address] [place] Potassium [Moles/Vol] 4.6 mmol/L Normal 3.7-5.1 [facility] Comment on above: Order Comment: Zeus stanton Type: BLOOD SPECIMENOrdering Facility: [facility] Address: [address] [place] [address] Performed By: #### 2 4323-8 ####[facility] [id number] [place] [address] [place] Protein [Mass/Vol] 6.9 g/dL Normal 6.3-8.0 [facility] Comment on above: Order Comment: Speci men Type: BLOOD SPECIMENOrdering Facility: [facility] Address: [address] [place] [address] Performed By: #### 2 4323-8 ####[facility] [id number] [place] [address] [place] Sodium [Moles/Vol] 138 mmol/L Normal 136-144 [facility] Comment on above: Order Comment: Speci men Type: BLOOD SPECIMENOrdering Facility: [facility] Address: [address] [place] [address] Performed By: #### 2 4323-8 ####[facility] [id number] [address] STATES [facility] Urea nitrogen [Mass/Vol] 29 mg/dL High 7-21 [facility] Comment on above: Order Comment: Speci men Type: BLOOD SPECIMENOrdering Facility: [facility] Address: [address] [place] [address] Performed By: #### 2 4323-8 ####[facility] [id number] [place] [address] [place] CBC W Auto Differential pane l (Bld)on 11-02-2024 Basophils (Bld) [#/Vol] 0.14 10*3/uL High <0.11 [facility] Comment on above: Order Comment: Speci men Type: BLOOD SPECIMENOrdering Facility: [facility] Address: [address] [place] [address] Performed By: #### 5 7021-8 ####[facility] [id number] [address] STATES OF [facility] LABORATORYCLIA [id number] [place] [address] [place] Basophils/100 WBC (Bld) 1.0 % Normal [facility] Comment on above: Order Comment: Speci men Type: BLOOD SPECIMENOrdering Facility: [facility] Address: [address] [place] [address] Performed By: #### 5 7021-8 ####[facility] MILLWNCLIA [id number] [address] LABORATORYCLIA [id number] [place] [address] [place] Differential cell count method Nom (Bld) Manual Normal [facility] Comment on above: Order Comment: Speci men Type: BLOOD SPECIMENOrdering Facility: [facility] Address: [address] [place] [address] Performed By: #### 5 7021-8 ####[facility] HOSPITALWSCLIA [id number] [address] LABORATORYCLIA [id number] [place] [address] [place] Eosinophils (Bld) [#/Vol] 0.14 10*3/uL Normal <0.46 [facility] Comment on above: Order Comment: Speci men Type: BLOOD SPECIMENOrdering Facility: [facility] Address: [address] [place] [address] Performed By: #### 5 7021-8 ####[facility] HOSPITALWNCLIA [id number] [address] LABORATORYCLIA [id number] [place] [address] [place] Eosinophils/100 WBC (Bld) 1.0 % Normal [facility] Comment on above: Order Comment: Speci men Type: BLOOD SPECIMENOrdering Facility: [facility] Address: [address] [place], [place] [address], [place] [address] Performed By: #### 5 7021-8 ####[facility] ANDRESMIRALIA [id number] [address] LABORATORYCLIA [id number] [place] [address] [place] Erythrocyte distribution width (RBC) [Ratio] 14.4 % Normal 11.5-15.0 [facility] Comment on above: Order Comment: Speci men Type: BLOOD SPECIMENOrdering Facility: [facility] Address: [facility] [place] [address] Performed By: #### 5 7021-8 ####[facility]LLASGRICELA [id number] [address] LABORATORYIA [id number] [place] [address] [place] Hematocrit (Bld) [Volume fraction] 35.7 % Low 36.0-46.0 [facility] Comment on above: Order Comment: Speci men Type: BLOOD SPECIMENOrdering Facility: [facility] Address: [facility] [place] [address] Performed By: #### 5 7021-8 ####[facility] ANDRESMIRALIA [id number] [address] LABORATORYIA [id number] [place] [address] [place] Hemoglobin (Bld) [Mass/Vol] 11.7 g/dL Normal 11.5-15.5 [facility] Comment on above: Order Comment: Speci men Type: BLOOD SPECIMENOrdering Facility: [facility] Address: [facility] [place] [id number] Performed By: #### 5 7021-8 ####[facility] ANDRESMIRALIA [id number] [place] [address] LABORATORYCLIA [id number] [place] [address] [place] Lymphocytes (Bld) [#/Vol] 10.61 10*3/uL High 1.00-4.00 [facility] Comment on above: Order Comment: Speci men Type: BLOOD SPECIMENOrdering Facility: [facility] Address: [address] [place] [address] Performed By: #### 5 7021-8 ####[facility] MILLTOWNCLIA [id number] [address] LABORATORYCLIA [id number] [address] Lymphocytes/100 WBC (Bld) 77.0 % Normal [facility] Comment on above: Order Comment: Speci men Type: BLOOD SPECIMENOrdering Facility: [facility] Address: [address] [place] [address] Performed By: #### 5 7021-8 ####[facility] MILLTOWNCLIA [id number] [address] LABORATORYCLIA [id number] [address] MCH (RBC) [Entitic mass] 32.2 pg Normal 26.0-34.0 [facility] Comment on above: Order Comment: Speci men Type: BLOOD SPECIMENOrdering Facility: [facility] Address: [address] [place] [address] Performed By: #### 5 7021-8 ####[facility] MILLTOWNCLIA [id number] [address] LABORATORYCLIA [id number] [place] [address] [place] MCHC (RBC) [Mass/Vol] 32.8 g/dL Normal 30.5-36.0 [facility] Comment on above: Order Comment: Speci men Type: BLOOD SPECIMENOrdering Facility: [facility] Address: [address] [place] [address] Performed By: #### 5 7021-8 ####[facility] MILLTOWNCLIA [id number] [address] LABORATORYCLIA [id number] [place] [address] [place] MCV (RBC) [Entitic vol] 98.3 fL Normal 80.0-100.0 [facility] Comment on above: Order Comment: Speci men Type: BLOOD SPECIMENOrdering Facility: [facility] Address: [address] [place] [address] Performed By: #### 5 7021-8 ####[facility] [id number] [address] LABORATORYIA [id number] [place] [address] [place] Monocytes (Bld) [#/Vol] 0.41 10*3/uL Normal <0.87 [facility] Comment on above: Order Comment: Speci men Type: BLOOD SPECIMENOrdering Facility: [facility] Address: [address] [place] [address] Performed By: #### 5 7021-8 ####[facility] MILLWNCLIA [id number] [address] LABORATORYCLIA [id number] [address] [place] Monocytes/100 WBC (Bld) 3.0 % Normal [facility] Comment on above: Order Comment: Speci men Type: BLOOD SPECIMENOrdering Facility: [facility] Address: [address] [place] [address] Performed By: #### 5 7021-8 ####[facility]CL[facility] [id number] [address] LABORATORYCLIA [id number] [place] [address] [place] Neutrophils (Bld) [#/Vol] 2.48 10*3/uL Normal 1.45-7.50 [facility] Comment on above: Order Comment: Speci men Type: BLOOD SPECIMENOrdering Facility: [facility] Address: [address] [place] [address] Performed By: #### 5 7021-8 ####[facility] MILLWNCLIA [id number] [address] LABORATORYCLIA [id number] [place] [address] [place] Neutrophils/100 WBC (Bld) 18.0 % Normal [facility] Comment on above: Order Comment: Speci men Type: BLOOD SPECIMENOrdering Facility: [facility] Address: [address] [place] [address] Performed By: #### 5 7021-8 ####[facility]CL[facility] [id number] [address] LABORATORYCLIA [id number] [place] [address] [place] Nucleated RBC (Bld) [#/Vol] 10*3/uL Normal <0.01 [facility] Comment on above: Order Comment: Speci men Type: BLOOD SPECIMENOrdering Facility: [facility] Address: [address] [place] [address] Performed By: #### 5 7021-8 ####[facility] MILLTOWNCLIA [id number] [address] LABORATORYCLIA [id number] [place] [address] [place] Nucleated RBC/100 WBC (Bld) [Ratio] 0.0 /100 WBC Normal [facility] Comment on above: Order Comment: Speci men Type: BLOOD SPECIMENOrdering Facility: [facility] Address: [address] [place] [address] Performed By: #### 5 7021-8 ####[facility] HOSPITALWNCLIA [id number] [address] LABORATORYCLIA [id number] [place] [address] [place] Ovalocytes LM Ql (Bld) Few Normal [facility] Comment on above: Order Comment: Speci men Type: BLOOD SPECIMENOrdering Facility: [facility] Address: [address] [place] [address] Performed By: #### 5 7021-8 ####[facility] [id number] [address] LABORATORYCLIA [id number] [place] [address] [place] Platelet mean volume (Bld) [Entitic vol] 10.1 fL Normal 9.0-12.7 [facility] Comment on above: Order Comment: Speci men Type: BLOOD SPECIMENOrdering Facility: [facility] Address: [address] [place] [address] Performed By: #### 5 7021-8 ####[facility] [id number] [address] LABORATORYCLIA [id number] [place] [address] [place] Platelets (Bld) [#/Vol] 222 10*3/uL Normal 150-400 [facility] Comment on above: Order Comment: Speci men Type: BLOOD SPECIMENOrdering Facility: [facility] Address: [address] [place] [address] Performed By: #### 5 7021-8 ####[facility] MILLTOWNCLIA [id number] [address] LABORATORYCLIA [id number] [place] [address] [place] Platelets Estimate (Bld) [#/Vol] Adequate Normal [facility] Comment on above: Order Comment: Speci men Type: BLOOD SPECIMENOrdering Facility: [facility] Address: [address] [place] [address] Performed By: #### 5 7021-8 ####[facility] HOSPITALWNCLIA [id number] [address] LABORATORYCLIA [id number] [place] [address] [place] [facility] RBC (Bld) [#/Vol] 3.63 10*6/uL Low 3.90-5.20 [facility] Comment on above: Order Comment: Speci men Type: BLOOD SPECIMENOrdering Facility: [facility] Address: [address] [place] [address] Performed By: #### 5 7021-8 ####[facility] HOSPITALWNCLIA [id number] [address] LABORATORYCLIA [id number] [place] [address] [place] RBC FRAGMENTS Few Abnormal None Seen [facility] Comment on above: Order Comment: Speci men Type: BLOOD SPECIMENOrdering Facility: [facility] Address: [address] [place] [address] Performed By: #### 5 7021-8 ####[facility] MILLTOWNCLIA [id number] [address] LABORATORYCLIA [id number] [address] [place] RED CELL MORPH Reviewed: see result s of individual morphologies Normal [facility] Comment on above: Order Comment: Speci men Type: BLOOD SPECIMENOrdering Facility: [facility] Address: [address] [place] [address] Performed By: #### 5 7021-8 ####[facility] [id number] [address] LABORATORYCLIA [id number] [address] WBC (Bld) [#/Vol] 13.78 10*3/uL High 3.70-11.00 [facility] Comment on above: Order Comment: Speci men Type: BLOOD SPECIMENOrdering Facility: [facility] Address: [address] [place] [address] Performed By: #### 5 7021-8 ####[facility] [id number] [address] LABORATORYCLIA [id number] [address] Cancer Ag125 SerPl-aCncon Cancer Ag 125 Qn 21 [arb'U]/mL Normal <39 [facility] Comment on above: Order Comment: Speci men Type: BLOOD SPECIMENOrdering Facility: [facility] Address: [address] [place] [address] Result Comment: CA 1 25 test methodology used is the Electrochemiluminescence Immunoassay by [employer]. Results obtained with different methods or kits cannot be used interchangeably.The reference interval is based on the 95th percentile of 240 apparently healthy premenopausal and postmenopausal women. At a cutoff value of 65 U/mL, the test sensitivity to distinguish ovarian carcinoma (FIGO stage I to IV) versus benign gynecological disease is 79%, with a specificity of 82%.Reference: Cancer Antigen 125 (CA 125 II) [package insert V 1.0 [place]]. [employer], [place], [place] (December 2014) Performed By: #### 1 0334-1 ####[facility] LABCLIA [id number] [place] [address] [place] Comprehensive metabolic 2000 panelon 11-02-2024 Albumin [Mass/Vol] 3.9 g/dL Normal 3.9-4.9 [facility] Comment on above: Order Comment: Speci men Type: BLOOD SPECIMENOrdering Facility: [facility] Address: [address] [place] [address] Performed By: #### 2 4323-8 ####[facility] MILLWNCLIA [id number] [place] [address] [place] ALP [Catalytic activity/Vol] 90 U/L Normal 34-123 [facility] Comment on above: Order Comment: Speci men Type: BLOOD SPECIMENOrdering Facility: [facility] Address: [address] [place] [address] Performed By: #### 2 4323-8 ####[facility] HOSPITALWNCLIA [id number] [place] [address] [place] ALT [Catalytic activity/Vol] 7 U/L Normal 7-38 [facility] Comment on above: Order Comment: Speci men Type: BLOOD SPECIMENOrdering Facility: [facility] Address: [address] [place] [address] Performed By: #### 2 4323-8 ####[facility] HOSPITALWNCLIA [id number] [place] [address] [place] Anion gap [Moles/Vol] 12 mmol/L Normal 8-15 [facility] Comment on above: Order Comment: Speci men Type: BLOOD SPECIMENOrdering Facility: [facility] Address: [address] [place] [address] Performed By: #### 2 4323-8 ####[facility] HOSPITALWNCLIA [id number] [place] [address] [place] AST [Catalytic activity/Vol] 16 U/L Normal 13-35 [facility] Comment on above: Order Comment: Speci men Type: BLOOD SPECIMENOrdering Facility: [facility] Address: [address] [place] [address] Performed By: #### 2 4323-8 ####[facility] HOSPITALWNCBLUE MOUNTAIN [facility]ITAL, INC[facility] [id number] [place] [address] [place] Bilirubin [Mass/Vol] 0.3 mg/dL Normal 0.2-1.3 [facility] Comment on above: Order Comment: Speci men Type: BLOOD SPECIMENOrdering Facility: [facility] Address: [address] [place] [address] Performed By: #### 2 4323-8 ####[facility] [id number] [place] [address] [place] Calcium [Mass/Vol] 9.3 mg/dL Normal 8.5-10.2 [facility] Comment on above: Order Comment: Speci men Type: BLOOD SPECIMENOrdering Facility: [facility] Address: [address] [place] [address] Performed By: #### 2 4323-8 ####[facility]LLASNCBLUE MOUNTAIN HOSP[facility], INC[facility] [id number] [place] [address] [place] Chloride [Moles/Vol] 103 mmol/L Normal 98-107 [facility] Comment on above: Order Comment: Speci men Type: BLOOD SPECIMENOrdering Facility: [facility] Address: [address] [place], [place] [address] Performed By: #### 2 4323-8 ####[facility] PINELLASNCLI [id number] [place] [address] [place] CO2 [Moles/Vol] 21 mmol/L Low 22-30 [facility] Comment on above: Order Comment: Speci men Type: BLOOD SPECIMENOrdering Facility: [facility] Address: [address] [place] [address] Performed By: #### 2 4323-8 ####[facility] ANDRESARDMORENCBLUE MOUNTAIN HOSPITAL, INC. [id number] [place] [address] [place] Creatinine [Mass/Vol] 1.30 mg/dL High 0.58-0.96 [facility] Comment on above: Order Comment: Zeus men Type: BLOOD SPECIMENOrdering Facility: [facility] Address: [address] [place] [address] Performed By: #### 2 4323-8 ####[facility] PINELLASNCLI [id number] [place] [address] [place] eGFRcr SerPlBld CKD-EPI 2020 40 mL/min/1.73m??? Low >=60 [facility] Comment on above: Order Comment: Zeus men Type: BLOOD SPECIMENOrdering Facility: [facility] Address: [address] [place] [address] Result Comment: Irina mated Glomerular Filtration Rate (eGFR) is calculated using the 2020 CKD-EPI creatinine equation. This equation utilizes serum creatinine, sex, and age as parameters. The creatinine assay has traceable calibration to isotope dilution-mass spectrometry. Refer to KDIGO guidelines for clinical interpretation. In patients with unstable renal function, e.g. those with acute kidney injury, the eGFR may not accurately reflect actual GFR. Performed By: #### 2 4323-8 ####[facility]ITALL[facility] [id number] [place] [address] [place] Glucose [Mass/Vol] 96 mg/dL Normal 74-99 [facility] Comment on above: Order Comment: Zeus men Type: BLOOD SPECIMENOrdering Facility: [facility] Address: [address] [place] [address] Result Comment: The [place] Diabetes Association (ADA) provides guidance for cutoff values for fasting glucose and random glucose. The ADA defines fasting as no caloric intake for at least 8 hours. Fasting plasma glucose results between 100 to 125 mg/dL indicate increased risk for diabetes (prediabetes).Fasting plasma glucose results greater than or equal to 126 mg/dL meet the criteria for diagnosis of diabetes. In the absence of unequivocal hyperglycemia, results should be confirmed by repeat testing. In a patient with classic symptoms of hyperglycemia or hyperglycemic crisis, random plasma glucose results greater than or equal to 200 mg/dL meet the criteria for diagnosis of diabetes.Reference: Standards of Medical Care in Diabetes 2016, [place] [employer] Association. Diabetes Care. 2016.39(Suppl 1). Performed By: #### 2 4323-8 ####[facility] MILLTOWNCLIA [id number] [place] [address] [place] Potassium [Moles/Vol] 4.7 mmol/L Normal 3.7-5.1 [facility] Comment on above: Order Comment: Speci men Type: BLOOD SPECIMENOrdering Facility: [facility] Address: [address] [place] [address] Performed By: #### 2 4323-8 ####[facility] HOSPITALWSCLIA [id number] [place] [address] [place] Protein [Mass/Vol] 6.5 g/dL Normal 6.3-8.0 [facility] Comment on above: Order Comment: Rubinai men Type: BLOOD SPECIMENOrdering Facility: [facility] Address: [address] [place] [address] Performed By: #### 2 4323-8 ####[facility] HOSPITALWSCLIA [id number] [place] [address] [place] Sodium [Moles/Vol] 136 mmol/L Normal 136-144 [facility] Comment on above: Order Comment: Speci men Type: BLOOD SPECIMENOrdering Facility: [facility] Address: [address] [place] [address] Performed By: #### 2 4323-8 ####[facility] HOSPITALWNCLIA [id number] [place] [address] [place] Urea nitrogen [Mass/Vol] 27 mg/dL High 7-21 [facility] Comment on above: Order Comment: Speci men Type: BLOOD SPECIMENOrdering Facility: [facility] Address: [place] [id number] Performed By: #### 2 4323-8 ####[facility] [id number] [place], [place] [address] [place] [address] [place] Urgent Care Visit Reporton 0 10-16-2024 Urgent Care Visit Report [facility] [address] [place] [id number] OFFICE VISIT Date of Service: 10/16/24 MR#: [id number] Acct: [id number] Name: ASHLEY ALCANTAR Rep #: [id number] : 1940 Provider: CHAY Lacy Age/Sex: 84/F Location: [facility] Status: Signed Intake Vital Signs 07/09/24 14:44 10/16/24 10:56 Height 4 ft 10 in Weight: 127 lb BMI 26.5 BP 124/68 H 138/66 H Blood Pressure Location Rt brachial Lt brachial Position Sitting Sitting Respiration 16 16 Pulse 56 L 63 Pulse Source Monitor NIBP Temp 98.0 F 98.5 F Temp Source Temporal Oral Pulse Oximetry (%) 96 97 Oxygen Delivery Method room air room air Intake Visit Reasons: CONCERN FOR SINUS INFECTION Chief Complaint: ST, left ear, left face, drainage, VELEZ Sink Cutter Required: No Is patient in pain?: Yes Allergies cephalexin (From Keflex) Allergy (Severe, Verified 10/16/24 10:56) Other Is last menstrual period known: No Post menopausal: Yes Patient : No Have you fallen in the past year?: No Nurse's Note: ST, left ear, left face, drainage, VELEZ x 24 hours. declines covid testing, concern for sinus infection [facility] Medical History (Updated 10/16/24 @ 11:24 by Armen CARTWRIGHT, PA) Groin discomfort Cyst of right kidney Cyst of left kidney Fatty liver Recurrent right pleural effusion Pelvic mass Hypotension CLL (chronic lymphocytic leukemia) Anxiety Mixed hyperlipidemia Acute sinusitis CKD (chronic kidney disease) Contact with and (suspected) exposure to other viral communicable diseases Urinary tract infection with hematuria History of right and left heart catheterization (LHC) ( 09/29/21) Nonrheumatic aortic (valve) stenosis with insufficiency Tinnitus Elevated TSH Preop exam for internal medicine Aortic regurgitation Aortic stenosis Elevated blood pressure reading in office without diagnosis of hypertension Glaucoma Contusion of left hand including fingers Acute maxillary sinusitis, unspecified Hematuria UTI (urinary tract infection) Post herpetic neuralgia Strain of right trapezius muscle Incontinence Limb weakness Diarrhea Shoulder pain Surgical History H/O: hysterectomy History of transcatheter aortic valve replacement (TAVR) ( 12/14/21) History of bilateral cataract extraction Family History Other Colon cancer Diabetes Myocardial infarction Social History household members: other details: number of children: 4 current occupational status: employed current occupation: [employer] Smoking Status: Former smoker alcohol intake: never substance use type: does not use caffeine: Yes Type: tea Number of servings: 1 HPI HPI Chief Complaint: ST, left ear, left face, drainage, VELEZ Details: ASHLEY ALCANTAR, is a 84 F who presents to the office today for complaint sore throat, left ear pain, left facial pressure and pain as well as sinus headache. Patient states this feels like most of the previous sinus infections she has had in the past. She denies fever, chills or sweats. No nausea, vomiting or diarrhea. No hemoptysis, shortness of breath or difficulty breathing. No other associated symptoms or alleviating/aggravating factors. ROS Const Constitutional: No other (As above) Exam Const General: cooperative and healthy appearing HENMT Head: normal to inspection Ears: hearing grossly normal bilaterally, TM's normal bilaterally and EAC's normal Nose: nasal discharge purulent Face and sinus: sinus tenderness frontal and maxillary Mouth: oral mucosae normal Throat: abnormal tonsil bilaterally erythema and hypertrophy 1+ and postnasal drainage Resp Effort Inspection: normal respiratory effort Auscultation: Bilateral: Clear to Auscultation Cardio Palpation: normal PMI Rate: regular rate Rhythm: regular rhythm Neuro General: patient alert and CN's II-XI intact bilaterally Psych Appearance: grossly normal Mental Status: mental status grossly normal Coding Level of Care Code Off vis,est,level 3 Diagnoses Acute sinusitis J01.90 Assessment and Plan Assessment and Plan (1) Acute sinusitis: Status: Acute Plan: Doxycycline and Atrovent as prescribed today. Encouraged to get plenty of rest, drink lots of clear liquids, and use Tylenol or Ibuprofen (unless contraindicated) for fever and comfort. Patient also educated on other symptomatic management techniques. To be seen in 7-10 days if no improvement; sooner if worsening of symptoms. Patient advised of potential red flags and when appropriate to report to the ED. Patient verbalized understanding and agreement with all the above. Orders: Ord (more content not included)... Normal [facility] CBC W Auto Differential pane l (Bld)on 10-05-2024 Basophils (Bld) [#/Vol] 0.00 10*3/uL Normal <0.11 [facility] Comment on above: Order Comment: Specarnoldo stanton Type: BLOOD SPECIMENOrdering Facility: [facility] Address: [address] [place] [address] Performed By: #### 5 7021-8 ####[facility] [id number] [address] LABORATORYCLIA [id number] [address] OF [facility] Basophils/100 WBC (Bld) 0.0 % Normal [facility] Comment on above: Order Comment: Specarnoldo stanton Type: BLOOD SPECIMENOrdering Facility: [facility] Address: [address] [place] [address] Performed By: #### 5 7021-8 ####[facility] [id number] [address] LABORATORYCLIA [id number] [address] [place] Differential cell count method Nom (Bld) Manual Normal [facility] Comment on above: Order Comment: Speci men Type: BLOOD SPECIMENOrdering Facility: [facility] Address: [address] [place] [address] Performed By: #### 5 7021-8 ####[facility] MILLTOWNCLIA [id number] [address] LABORATORYCLIA [id number] [place] [address] [place] Eosinophils (Bld) [#/Vol] 0.15 10*3/uL Normal <0.46 [facility] Comment on above: Order Comment: Speci men Type: BLOOD SPECIMENOrdering Facility: [facility] Address: [address] [place] [address] Performed By: #### 5 7021-8 ####[facility]ITALWNCLIA [id number] [address] LABORATORYCLIA [id number] [place] [address] [place] Eosinophils/100 WBC (Bld) 1.0 % Normal [facility] Comment on above: Order Comment: Speci men Type: BLOOD SPECIMENOrdering Facility: [facility] Address: [address] [place] [address] Performed By: #### 5 7021-8 ####[facility] ANDRESTOWNCLIA [id number] [address] LABORATORYCLIA [id number] [place] [address] [place] Erythrocyte distribution width (RBC) [Ratio] 14.6 % Normal 11.5-15.0 [facility] Comment on above: Order Comment: Speci men Type: BLOOD SPECIMENOrdering Facility: [facility] Address: [address] [place] [address] Performed By: #### 5 7021-8 ####[facility] MILLTOWNCLIA [id number] [address] LABORATORYCLIA [id number] [place] [address] [place] Hematocrit (Bld) [Volume fraction] 33.9 % Low 36.0-46.0 [facility] Comment on above: Order Comment: Speci men Type: BLOOD SPECIMENOrdering Facility: [facility] Address: [address] [place] [address] Performed By: #### 5 7021-8 ####[facility] [id number] [address] LABORATORYCLIA [id number] [place] [address] [place] Hemoglobin (Bld) [Mass/Vol] 11.3 g/dL Low 11.5-15.5 [facility] Comment on above: Order Comment: Speci men Type: BLOOD SPECIMENOrdering Facility: [facility] Address: [address] [place] [address] Performed By: #### 5 7021-8 ####[facility] [id number] [address] LABORATORYCLIA [id number] [place] [address] [place] Lymphocytes (Bld) [#/Vol] 11.26 10*3/uL High 1.00-4.00 [facility] Comment on above: Order Comment: Speci men Type: BLOOD SPECIMENOrdering Facility: [facility] Address: [address] [place], [place] [address] Performed By: #### 5 7021-8 ####[facility] [id number] [address] LABORATORYCLIA [id number] [place] [address] [place] Lymphocytes/100 WBC (Bld) 77.0 % Normal [facility] Comment on above: Order Comment: Speci men Type: BLOOD SPECIMENOrdering Facility: [facility] Address: [address] [place] [address] Performed By: #### 5 7021-8 ####[facility] [id number] [address] LABORATORYCLIA [id number] [place] [address] [place] MCH (RBC) [Entitic mass] 32.6 pg Normal 26.0-34.0 [facility] Comment on above: Order Comment: Speci men Type: BLOOD SPECIMENOrdering Facility: [facility] Address: [address] [place] [address] Performed By: #### 5 7021-8 ####[facility] [id number] [address] LABORATORYCLIA [id number] [place] [address] [place] MCHC (RBC) [Mass/Vol] 33.3 g/dL Normal 30.5-36.0 [facility] Comment on above: Order Comment: Speci men Type: BLOOD SPECIMENOrdering Facility: [facility] Address: [address] [place] [address] Performed By: #### 5 7021-8 ####[facility] [id number] [address] LABORATORYCLIA [id number] [place] [address] [place] MCV (RBC) [Entitic vol] 97.7 fL Normal 80.0-100.0 [facility] Comment on above: Order Comment: Speci men Type: BLOOD SPECIMENOrdering Facility: [facility] Address: [address] [place] [address] Performed By: #### 5 7021-8 ####[facility] MILLTOWNCLIA [id number] [address] LABORATORYCLIA [id number] [place] [address] [place] Monocytes (Bld) [#/Vol] 0.88 10*3/uL High <0.87 [facility] Comment on above: Order Comment: Speci men Type: BLOOD SPECIMENOrdering Facility: [facility] Address: [address] [place] [address] Performed By: #### 5 7021-8 ####[facility] [id number] [address] LABORATORYCLIA [id number] [place] [address] [place] Monocytes/100 WBC (Bld) 6.0 % Normal [facility] Comment on above: Order Comment: Speci men Type: BLOOD SPECIMENOrdering Facility: [facility] Address: [address] [place] [address] Performed By: #### 5 7021-8 ####[facility] HOSPITALWNCLIA [id number] [address] LABORATORYCLIA [id number] [place] [address] [place] Neutrophils (Bld) [#/Vol] 2.34 10*3/uL Normal 1.45-7.50 [facility] Comment on above: Order Comment: Speci men Type: BLOOD SPECIMENOrdering Facility: [facility] Address: [address] [place] [address] Performed By: #### 5 7021-8 ####[facility] MILLTOWNCLIA [id number] [address] LABORATORYCLIA [id number] [place] [address] [place] Neutrophils/100 WBC (Bld) 16.0 % Normal [facility] Comment on above: Order Comment: Speci men Type: BLOOD SPECIMENOrdering Facility: [facility] Address: [address] [place] [address] Result Comment: Diff erential done with albumin Performed By: #### 5 7021-8 ####[facility] MILLTOWNCLIA [id number] [address] LABORATORYCLIA [id number] [place] [address] [place] Nucleated RBC (Bld) [#/Vol] 10*3/uL Normal <0.01 [facility] Comment on above: Order Comment: Speci men Type: BLOOD SPECIMENOrdering Facility: [facility] Address: [address] [place] [address] Performed By: #### 5 7021-8 ####[facility]OSPITALWNCLIA [id number] [address] LABORATORYCLIA [id number] [place] [address] [place] Nucleated RBC/100 WBC (Bld) [Ratio] 0.0 /100 WBC Normal [facility] Comment on above: Order Comment: Speci men Type: BLOOD SPECIMENOrdering Facility: [facility] Address: [address] [place] [address] Performed By: #### 5 7021-8 ####[facility]OS[facility]ITALWNCLIA [id number] [address] LABORATORYCLIA [id number] [place] [address] [place] Ovalocytes LM Ql (Bld) Few Normal [facility] Comment on above: Order Comment: Speci men Type: BLOOD SPECIMENOrdering Facility: [facility] Address: [address] [place] [address] Performed By: #### 5 7021-8 ####[facility] MILLTOWNCLIA [id number] [address] LABORATORYCLIA [id number] [place] [address] [place] Platelet mean volume (Bld) [Entitic vol] 9.8 fL Normal 9.0-12.7 [facility] Comment on above: Order Comment: Speci men Type: BLOOD SPECIMENOrdering Facility: [facility] Address: [address] [place] [address] Performed By: #### 5 7021-8 ####[facility]ITALWNCLIA [id number] [address] LABORATORYCLIA [id number] [place] [address] [place] Platelets (Bld) [#/Vol] 173 10*3/uL Normal 150-400 [facility] Comment on above: Order Comment: Speci men Type: BLOOD SPECIMENOrdering Facility: [facility] Address: [address] [place] [address] Performed By: #### 5 7021-8 ####[facility] MARIANNEWNCLIA [id number] [address] LABORATORYCLIA [id number] [place] [address] [place] Platelets Estimate (Bld) [#/Vol] Adequate Normal [facility] Comment on above: Order Comment: Speci men Type: BLOOD SPECIMENOrdering Facility: [facility] Address: [address] [place], [place] [address] Performed By: #### 5 7021-8 ####[facility] MILLTOWNCLIA [id number] [address] LABORATORYCLIA [id number] [place] [address] [place] RBC (Bld) [#/Vol] 3.47 10*6/uL Low 3.90-5.20 [facility] Comment on above: Order Comment: Speci men Type: BLOOD SPECIMENOrdering Facility: [facility] Address: [address] [place] [address] Performed By: #### 5 7021-8 ####[facility]OS[facility]ITALWNCLIA [id number] [address] LABORATORYCLIA [id number] [place] [address] [place] [facility] RED CELL MORPH Reviewed: see result s of individual morphologies Normal [facility] Comment on above: Order Comment: Speci men Type: BLOOD SPECIMENOrdering Facility: [facility] Address: [address] [place] [address] Performed By: #### 5 7021-8 ####[facility] [id number] [address] LABORATORYCLIA [id number] [place] [address] [place] WBC (Bld) [#/Vol] 14.62 10*3/uL High 3.70-11.00 [facility] Comment on above: Order Comment: Speci men Type: BLOOD SPECIMENOrdering Facility: [facility] Address: [address] [place] [address] Performed By: #### 5 7021-8 ####[facility] [id number] [address] LABORATORYCLIA [id number] [place] [address] [place] Cancer Ag125 SerPl-aCncon Cancer Ag 125 Qn 19 [arb'U]/mL Normal <39 [facility] Comment on above: Order Comment: Speci men Type: BLOOD SPECIMENOrdering Facility: [facility] Address: [address] [place] [address] Result Comment: CA 1 25 test methodology used is the Electrochemiluminescence Immunoassay by [employer]. Results obtained with different methods or kits cannot be used interchangeably.The reference interval is based on the 95th percentile of 240 apparently healthy premenopausal and postmenopausal women. At a cutoff value of 65 U/mL, the test sensitivity to distinguish ovarian carcinoma (FIGO stage I to IV) versus benign gynecological disease is 79%, with a specificity of 82%.Reference: Cancer Antigen 125 (CA 125 II) [package insert V 1.0 [place]]. [employer], [place], [place] (December 2014) Performed By: #### 1 0334-1 ####[facility] LABCLIA [id number] [address] OF [facility] Comprehensive metabolic 2000 panelon 10-05-2024 Albumin [Mass/Vol] 4.1 g/dL Normal 3.9-4.9 [facility] Comment on above: Order Comment: Speci men Type: BLOOD SPECIMENOrdering Facility: [facility] Address: [address] [place] [address] Performed By: #### 2 4323-8 ####[facility] [id number] [address] [place] LABCLIA [id number] [place], [place] [address] [place] [address] OF [facility] ALP [Catalytic activity/Vol] 84 U/L Normal 34-123 [facility] Comment on above: Order Comment: Speci men Type: BLOOD SPECIMENOrdering Facility: [facility] Address: [address] [place] [address] Performed By: #### 2 4323-8 ####[facility]LLASNCA [id number] [address] [place] LABCLIA [id number] [place] [address] [place] ALT [Catalytic activity/Vol] 8 U/L Normal 7-38 [facility] Comment on above: Order Comment: Speci men Type: BLOOD SPECIMENOrdering Facility: [facility] Address: [address] [place] [address] Performed By: #### 2 4323-8 ####[facility] MILLTOWNCLIA [id number] [address] [place] LABCLIA [id number] [place] [address] [place] Anion gap [Moles/Vol] 15 mmol/L Normal 8-15 [facility] Comment on above: Order Comment: Speci men Type: BLOOD SPECIMENOrdering Facility: [facility] Address: [address] [place] [address] Performed By: #### 2 4323-8 ####[facility] MILLTOWNCLIA [id number] [address] [place] LABCLIA [id number] [facility] [place] [address] [place] AST [Catalytic activity/Vol] 24 U/L Normal 13-35 [facility] Comment on above: Order Comment: Speci men Type: BLOOD SPECIMENOrdering Facility: [facility] Address: [address] [place] [address] Performed By: #### 2 4323-8 ####[facility] MILLTOWNCLIA [id number] [address] [facility] [place] LABCLIA [id number] [place] [address] [place] Bilirubin [Mass/Vol] 0.7 mg/dL Normal 0.2-1.3 [facility] Comment on above: Order Comment: Speci men Type: BLOOD SPECIMENOrdering Facility: [facility] Address: [address] [place] [address] Performed By: #### 2 4323-8 ####[facility] MILLTOWNCLIA [id number] [place] [address] [place] [facility] [place] LABCLIA [id number] [place] [address] [place] Calcium [Mass/Vol] 9.1 mg/dL Normal 8.5-10.2 [facility] Comment on above: Order Comment: Speci men Type: BLOOD SPECIMENOrdering Facility: [facility] Address: [address] [place], [place] [address] Performed By: #### 2 4323-8 ####[facility] MILLTOWNCLIA [id number] [place] [address] [place] [facility] [place] LABCLIA [id number] [place] [address] [place] Chloride [Moles/Vol] 103 mmol/L Normal 98-107 [facility] Comment on above: Order Comment: Speci men Type: BLOOD SPECIMENOrdering Facility: [facility] Address: [address] [place] [address] Performed By: #### 2 4323-8 ####[facility] MILLTOWNCLIA [id number] [place] [address] [place] [facility] [place] LABCLIA [id number] [place] [address] [place] CO2 [Moles/Vol] 20 mmol/L Low 22-30 [facility] Comment on above: Order Comment: Speci men Type: BLOOD SPECIMENOrdering Facility: [facility] Address: [address] [place] [address] Performed By: #### 2 4323-8 ####[facility] MILLTOWNCLIA [id number] [place] [address] [place] [facility] [place] LABCLIA [id number] [place] [address] [place] [facility] Creatinine [Mass/Vol] 1.26 mg/dL High 0.58-0.96 [facility] Comment on above: Order Comment: Zeus stanton Type: BLOOD SPECIMENOrdering Facility: [facility] Address: [address] [place] [address] Performed By: #### 2 4323-8 ####[facility] [id number] [address] LABCLIA [id number] [address] Creatinine and Glomerular filtration rate.predicted panel (S/P/Bld) 42 mL/min/1.73m??? Low >=60 [facility] Comment on above: Order Comment: Zeus stanton Type: BLOOD SPECIMENOrdering Facility: [facility] Address: [address] [place] [address] Result Comment: Irina mated Glomerular Filtration Rate (eGFR) is calculated using the 2020 CKD-EPI creatinine equation. This equation utilizes serum creatinine, sex, and age as parameters. The creatinine assay has traceable calibration to isotope dilution-mass spectrometry. Refer to KDIGO guidelines for clinical interpretation. In patients with unstable renal function, e.g. those with acute kidney injury, the eGFR may not accurately reflect actual GFR. Performed By: #### 2 4323-8 ####[facility] [id number] [address] LABCLIA [id number] [place] [address] [place] [facility] Glucose [Mass/Vol] 99 mg/dL Normal 74-99 [facility] Comment on above: Order Comment: Zeus stanton Type: BLOOD SPECIMENOrdering Facility: [facility] Address: [address] [place] [address] Result Comment: The [place] Diabetes Association (ADA) provides guidance for cutoff values for fasting glucose and random glucose. The ADA defines fasting as no caloric intake for at least 8 hours. Fasting plasma glucose results between 100 to 125 mg/dL indicate increased risk for diabetes (prediabetes).Fasting plasma glucose results greater than or equal to 126 mg/dL meet the criteria for diagnosis of diabetes. In the absence of unequivocal hyperglycemia, results should be confirmed by repeat testing. In a patient with classic symptoms of hyperglycemia or hyperglycemic crisis, random plasma glucose results greater than or equal to 200 mg/dL meet the criteria for diagnosis of diabetes.Reference: Standards of Medical Care in Diabetes 2016, [place] Diabetes Association. Diabetes Care. 2016.39(Suppl 1). Performed By: #### 2 4323-8 ####[facility] MILLTOWNCLIA [id number] [address] [place] LABCLIA [id number] [place] [address] [place] Potassium [Moles/Vol] 4.7 mmol/L Normal 3.7-5.1 [facility] Comment on above: Order Comment: Zeus stanton Type: BLOOD SPECIMENOrdering Facility: [facility] Address: [address] [place] [address] Performed By: #### 2 4323-8 ####[facility]ITALWNCLIA [id number] [address] [place] LABCLIA [id number] [place] [address] [place] Protein [Mass/Vol] 6.2 g/dL Low 6.3-8.0 [facility] Comment on above: Order Comment: Zeus stanton Type: BLOOD SPECIMENOrdering Facility: [facility] Address: [address] [place] [address] Performed By: #### 2 4323-8 ####[facility] MILLTOWNCLIA [id number] [address] [place] LABCLIA [id number] [place] [address] [place] Sodium [Moles/Vol] 138 mmol/L Normal 136-144 [facility] Comment on above: Order Comment: Speci men Type: BLOOD SPECIMENOrdering Facility: [facility] Address: [address] [place] [address] Performed By: #### 2 4323-8 ####[facility]ITALWNCLIA [id number] [address] [place] LABCLIA [id number] [place] [address] [place] Urea nitrogen [Mass/Vol] 22 mg/dL High 7-21 [facility] Comment on above: Order Comment: Speci men Type: BLOOD SPECIMENOrdering Facility: [facility] Address: [address] [place] [address] Performed By: #### 2 4323-8 ####[facility] [id number] [address] [place] LABCLIA [id number] [place] [address] [place] CBC W Auto Differential pane l (Bld)on 09-07-2024 Basophils (Bld) [#/Vol] 0.00 10*3/uL Normal <0.11 [facility] Comment on above: Order Comment: Speci men Type: BLOOD SPECIMENOrdering Facility: [facility] Address: [address] [place] [address] Performed By: #### 5 7021-8 ####[facility] [id number] [address] LABORATORYCLIA [id number] [address] STATES OF [facility] Basophils/100 WBC (Bld) 0.0 % Normal [facility] Comment on above: Order Comment: Speci men Type: BLOOD SPECIMENOrdering Facility: [facility] Address: [address] [place] [address] Performed By: #### 5 7021-8 ####[facility] HOSPITALWNCLIA [id number] [address] LABORATORYCLIA [id number] [place] [address] [place] Differential cell count method Nom (Bld) Manual Normal [facility] Comment on above: Order Comment: Speci men Type: BLOOD SPECIMENOrdering Facility: [facility] Address: [address] [place] [address] Performed By: #### 5 7021-8 ####[facility] HOSPITALWNCLIA [id number] [address] LABORATORYCLIA [id number] [place] [address] [place] Eosinophils (Bld) [#/Vol] 0.15 10*3/uL Normal <0.46 [facility] Comment on above: Order Comment: Speci men Type: BLOOD SPECIMENOrdering Facility: [facility] Address: [address] [place] [address] Performed By: #### 5 7021-8 ####[facility]ITALLIA [id number] [address] LABORATORYCLIA [id number] [place] [address] [place] Eosinophils/100 WBC (Bld) 1.0 % Normal [facility] Comment on above: Order Comment: Speci men Type: BLOOD SPECIMENOrdering Facility: [facility] Address: [address] [place] [address] Performed By: #### 5 7021-8 ####[facility] HOSPITALWNCLIA [id number] [address] LABORATORYCLIA [id number] [place] [address] [place] Erythrocyte distribution width (RBC) [Ratio] 14.3 % Normal 11.5-15.0 [facility] Comment on above: Order Comment: Speci men Type: BLOOD SPECIMENOrdering Facility: [facility] Address: [address] [place] [address] Performed By: #### 5 7021-8 ####[facility]OSPITALWNCLIA [id number] [address] LABORATORYCLIA [id number] [place] [address] [place] Hematocrit (Bld) [Volume fraction] 38.0 % Normal 36.0-46.0 [facility] Comment on above: Order Comment: Speci men Type: BLOOD SPECIMENOrdering Facility: [facility] Address: [address] [place] [address] Performed By: #### 5 7021-8 ####[facility] [id number] [address] LABORATORYCLIA [id number] [place] [address] [place] Hemoglobin (Bld) [Mass/Vol] 12.3 g/dL Normal 11.5-15.5 [facility] Comment on above: Order Comment: Speci men Type: BLOOD SPECIMENOrdering Facility: [facility] Address: [address] [place] [address] Performed By: #### 5 7021-8 ####[facility]OS[facility]ITALLIA [id number] [address] LABORATORYCLIA [id number] [place] [address] [place] Lymphocytes (Bld) [#/Vol] 8.53 10*3/uL High 1.00-4.00 [facility] Comment on above: Order Comment: Speci men Type: BLOOD SPECIMENOrdering Facility: [facility] Address: [address] [place] [address] Performed By: #### 5 7021-8 ####[facility] MILLTOWNCLIA [id number] [address] LABORATORYCLIA [id number] [address] STATES OF [facility] Lymphocytes/100 WBC (Bld) 57.0 % Normal [facility] Comment on above: Order Comment: Speci men Type: BLOOD SPECIMENOrdering Facility: [facility] Address: [address] [place] [address] Performed By: #### 5 7021-8 ####[facility] MILLWNCLIA [id number] [address] LABORATORYCLIA [id number] [place] [address] [place] MCH (RBC) [Entitic mass] 31.8 pg Normal 26.0-34.0 [facility] Comment on above: Order Comment: Speci men Type: BLOOD SPECIMENOrdering Facility: [facility] Address: [address] [place] [address] Performed By: #### 5 7021-8 ####[facility] MILLTOWNCLIA [id number] [address] LABORATORYCLIA [id number] [place] [address] [place] MCHC (RBC) [Mass/Vol] 32.4 g/dL Normal 30.5-36.0 [facility] Comment on above: Order Comment: Speci men Type: BLOOD SPECIMENOrdering Facility: [facility] Address: [address] [place], [place] [address] Performed By: #### 5 7021-8 ####[facility] MILLTOWNCLIA [id number] [address] LABORATORYCLIA [id number] [place] [address] [place] MCV (RBC) [Entitic vol] 98.2 fL Normal 80.0-100.0 [facility] Comment on above: Order Comment: Speci men Type: BLOOD SPECIMENOrdering Facility: [facility] Address: [address] [place] [address] Performed By: #### 5 7021-8 ####[facility] HOSPITALWNCLIA [id number] [address] LABORATORYCLIA [id number] [place] [address] [place] Monocytes (Bld) [#/Vol] 0.90 10*3/uL High <0.87 [facility] Comment on above: Order Comment: Speci men Type: BLOOD SPECIMENOrdering Facility: [facility] Address: [address] [place] [address] Performed By: #### 5 7021-8 ####[facility]OSPITALWNCLIA [id number] [address] LABORATORYCLIA [id number] [address] [place] Monocytes/100 WBC (Bld) 6.0 % Normal [facility] Comment on above: Order Comment: Speci men Type: BLOOD SPECIMENOrdering Facility: [facility] Address: [address] [place] [address] Performed By: #### 5 7021-8 ####[facility]OS[facility]ITALWNCLIA [id number] [address] LABORATORYCLIA [id number] [place] [address] [place] Neutrophils (Bld) [#/Vol] 5.39 10*3/uL Normal 1.45-7.50 [facility] Comment on above: Order Comment: Speci men Type: BLOOD SPECIMENOrdering Facility: [facility] Address: [address] [place] [address] Performed By: #### 5 7021-8 ####[facility] ANDRESTOWNCLIA [id number] [address] LABORATORYCLIA [id number] [place] [address] [place] Neutrophils/100 WBC (Bld) 36.0 % Normal [facility] Comment on above: Order Comment: Speci men Type: BLOOD SPECIMENOrdering Facility: [facility] Address: [address] [place] [address] Performed By: #### 5 7021-8 ####[facility]OS[facility]ITALWNCLIA [id number] [address] LABORATORYCLIA [id number] [place] [address] [place] Nucleated RBC (Bld) [#/Vol] 10*3/uL Normal <0.01 [facility] Comment on above: Order Comment: Speci men Type: BLOOD SPECIMENOrdering Facility: [facility] Address: [address] [place] [address] Performed By: #### 5 7021-8 ####[facility] ANDRESTOWNCLIA [id number] [address] LABORATORYCLIA [id number] [place] [address] [place] Nucleated RBC/100 WBC (Bld) [Ratio] 0.0 /100 WBC Normal [facility] Comment on above: Order Comment: Speci men Type: BLOOD SPECIMENOrdering Facility: [facility] Address: [address] [place] [address] Performed By: #### 5 7021-8 ####[facility]TOWNCLIA [id number] [address] LABORATORYCLIA [id number] [place] [address] [place] Ovalocytes LM Ql (Bld) Few Normal Cl [facility] Comment on above: Order Comment: Speci men Type: BLOOD SPECIMENOrdering Facility: [facility] Address: [address] [place] [address] Performed By: #### 5 7021-8 ####[facility] MILLTOWNCLIA [id number] [address] LABORATORYCLIA [id number] [place] [address] [place] Platelet mean volume (Bld) [Entitic vol] 10.1 fL Normal 9.0-12.7 [facility] Comment on above: Order Comment: Speci men Type: BLOOD SPECIMENOrdering Facility: [facility] Address: [address] [place] [address] Performed By: #### 5 7021-8 ####[facility]TOWNCLIA [id number] [address] LABORATORYCLIA [id number] [place] [address] [place] Platelets (Bld) [#/Vol] 244 10*3/uL Normal 150-400 [facility] Comment on above: Order Comment: Speci men Type: BLOOD SPECIMENOrdering Facility: [facility] Address: [address] [place] [address] Performed By: #### 5 7021-8 ####[facility] MILLTOWNCLIA [id number] [address] LABORATORYCLIA [id number] [place] [address] [place] Platelets Estimate (Bld) [#/Vol] Adequate Normal [facility] Comment on above: Order Comment: Speci men Type: BLOOD SPECIMENOrdering Facility: [facility] Address: [address] [place] [address] Performed By: #### 5 7021-8 ####[facility] ANDRESMIRALIA [id number] [address] LABORATORYCLIA [id number] [place] [address] [place] RBC (Bld) [#/Vol] 3.87 10*6/uL Low 3.90-5.20 [facility] Comment on above: Order Comment: Speci men Type: BLOOD SPECIMENOrdering Facility: [facility] Address: [address] [place] [address] Performed By: #### 5 7021-8 ####[facility]LLASNCLIA [id number] [address] LABORATORYCLIA [id number] [address] [place] RBC FRAGMENTS Few Abnormal None Seen [facility] Comment on above: Order Comment: Speci men Type: BLOOD SPECIMENOrdering Facility: [facility] Address: [address] [place] [address] Performed By: #### 5 7021-8 ####[facility] ANDRESMIRALIA [id number] [address] LABORATORYCLIA [id number] [address] [place] CELL MORPH Reviewed: see result s of individual morphologies Normal [facility] Comment on above: Order Comment: Speci men Type: BLOOD SPECIMENOrdering Facility: [facility] Address: [address] [place] [address] Performed By: #### 5 7021-8 ####[facility] PINELLASTAYLORLIA [id number] [address] LABORATORYCLIA [id number] [place] [address] [place] WBC (Bld) [#/Vol] 14.96 10*3/uL High 3.70-11.00 [facility] Comment on above: Order Comment: Speci men Type: BLOOD SPECIMENOrdering Facility: [facility] Address: [address] [place] [address] Performed By: #### 5 7021-8 ####[facility] [id number] [address] LABORATORYCLIA [id number] [address] [place] CNPNon 09-07-2024 CNPN Normal [facility] Cancer Ag125 SerPl-aCncon Cancer Ag 125 Qn 21 [arb'U]/mL Normal <39 [facility] Comment on above: Order Comment: Speci [facility] Type: BLOOD SPECIMENOrdering Facility: [facility] Address: [address] [place] [address] Result Comment: CA 1 25 test methodology used is the Electrochemiluminescence Immunoassay by [employer]. Results obtained with different methods or kits cannot be used interchangeably.The reference interval is based on the 95th percentile of 240 apparently healthy premenopausal and postmenopausal women. At a cutoff value of 65 U/mL, the test sensitivity to distinguish ovarian carcinoma (FIGO stage I to IV) versus benign gynecological disease is 79%, with a specificity of 82%.Reference: Cancer Antigen 125 (CA 125 II) [package insert V 1.0 [place]]. [employer], [place], [place] (December 2014) Performed By: #### 1 0334-1 ####[facility] LABCLIA [id number] [place] [address] [place] Comprehensive metabolic 2000 panelon 09-07-2024 Albumin [Mass/Vol] 4.5 g/dL Normal 3.9-4.9 [facility] Comment on above: Order Comment: Speci men Type: BLOOD SPECIMENOrdering Facility: [facility] Address: [address] [place] [address] Performed By: #### 2 4323-8 ####[facility] MILLTOWNCLIA [id number] [place] [address] [place] ALP [Catalytic activity/Vol] 93 U/L Normal 34-123 [facility] Comment on above: Order Comment: Speci men Type: BLOOD SPECIMENOrdering Facility: [facility] Address: [address] [place] [address] Performed By: #### 2 4323-8 ####[facility] MILLTOWNCLIA [id number] [place] [address] [place] ALT [Catalytic activity/Vol] 9 U/L Normal 7-38 [facility] Comment on above: Order Comment: Speci men Type: BLOOD SPECIMENOrdering Facility: [facility] Address: [address] [place] [address] Performed By: #### 2 4323-8 ####[facility] MILLTOWNCLIA [id number] [place] [address] [place] Anion gap [Moles/Vol] 19 mmol/L High 8-15 [facility] Comment on above: Order Comment: Speci men Type: BLOOD SPECIMENOrdering Facility: [facility] Address: [address] [place] [address] Performed By: #### 2 4323-8 ####[facility] MILLTOWNCLIA [id number] [place] [address] [place] AST [Catalytic activity/Vol] 21 U/L Normal 13-35 [facility] Comment on above: Order Comment: Speci men Type: BLOOD SPECIMENOrdering Facility: [facility] Address: [address] [place] [address] Performed By: #### 2 4323-8 ####[facility] MILLTOWNCLIA [id number] [place] [address] [place] Bilirubin [Mass/Vol] 0.6 mg/dL Normal 0.2-1.3 [facility] Comment on above: Order Comment: Speci men Type: BLOOD SPECIMENOrdering Facility: [facility] Address: [address] [place] [address] Performed By: #### 2 4323-8 ####[facility] MILLTOWNCLIA [id number] [place] [address] [place] Calcium [Mass/Vol] 9.7 mg/dL Normal 8.5-10.2 [facility] Comment on above: Order Comment: Speci men Type: BLOOD SPECIMENOrdering Facility: [facility] Address: [address] [place] [address] Performed By: #### 2 4323-8 ####[facility] P[facility]LLASNCLIA [id number] [place] [address] [place] Chloride [Moles/Vol] 99 mmol/L Normal 98-107 [facility] Comment on above: Order Comment: Speci men Type: BLOOD SPECIMENOrdering Facility: [facility] Address: [address] [place] [address] Performed By: #### 2 4323-8 ####[facility] MILLWNCLIA [id number] [place] [address] [place] CO2 [Moles/Vol] 19 mmol/L Low 22-30 [facility] Comment on above: Order Comment: Speci men Type: BLOOD SPECIMENOrdering Facility: [facility] Address: [address] [place] [address] Performed By: #### 2 4323-8 ####[facility] MILLTOWNCLIA [id number] [place] [address] [place] Creatinine [Mass/Vol] 1.47 mg/dL High 0.58-0.96 [facility] Comment on above: Order Comment: Zeus stanton Type: BLOOD SPECIMENOrdering Facility: [facility] Address: [address] [place] [address] Performed By: #### 2 4323-8 ####[facility] [id number] [place] [address] [place] Creatinine and Glomerular filtration rate.predicted panel (S/P/Bld) 35 mL/min/1.73m??? Low >=60 [facility] Comment on above: Order Comment: Zeus stanton Type: BLOOD SPECIMENOrdering Facility: [facility] Address: [address] [place] [address] Result Comment: Irina mated Glomerular Filtration Rate (eGFR) is calculated using the 2020 CKD-EPI creatinine equation. This equation utilizes serum creatinine, sex, and age as parameters. The creatinine assay has traceable calibration to isotope dilution-mass spectrometry. Refer to KDIGO guidelines for clinical interpretation. In patients with unstable renal function, e.g. those with acute kidney injury, the eGFR may not accurately reflect actual GFR. Performed By: #### 2 4323-8 ####[facility] [id number] [place] [address] [place] Glucose [Mass/Vol] 118 mg/dL High 74-99 [facility] Comment on above: Order Comment: Zeus stanton Type: BLOOD SPECIMENOrdering Facility: [facility] Address: [address] [place] [address] Result Comment: The [place] Diabetes Association (ADA) provides guidance for cutoff values for fasting glucose and random glucose. The ADA defines fasting as no caloric intake for at least 8 hours. Fasting plasma glucose results between 100 to 125 mg/dL indicate increased risk for diabetes (prediabetes).Fasting plasma glucose results greater than or equal to 126 mg/dL meet the criteria for diagnosis of diabetes. In the absence of unequivocal hyperglycemia, results should be confirmed by repeat testing. In a patient with classic symptoms of hyperglycemia or hyperglycemic crisis, random plasma glucose results greater than or equal to 200 mg/dL meet the criteria for diagnosis of diabetes.Reference: Standards of Medical Care in Diabetes 2016, [place] Diabetes Association. Diabetes Care. 2016.39(Suppl 1). Performed By: #### 2 4323-8 ####[facility] MILLTOWNCLIA [id number] [place] [address] [place] Potassium [Moles/Vol] 4.7 mmol/L Normal 3.7-5.1 [facility] Comment on above: Order Comment: Speci men Type: BLOOD SPECIMENOrdering Facility: [facility] Address: [address] [place] [address] Performed By: #### 2 4323-8 ####[facility] MILLTOWNCLIA [id number] [place] [address] [place] Protein [Mass/Vol] 7.1 g/dL Normal 6.3-8.0 [facility] Comment on above: Order Comment: Speci men Type: BLOOD SPECIMENOrdering Facility: [facility] Address: [address] [place] [address] Performed By: #### 2 4323-8 ####[facility]LLASNCLIA [id number] [place] [address] [place] Sodium [Moles/Vol] 137 mmol/L Normal 136-144 [facility] Comment on above: Order Comment: Speci men Type: BLOOD SPECIMENOrdering Facility: [facility] Address: [address] [place] [address] Performed By: #### 2 4323-8 ####[facility] MILLTOWNCLIA [id number] [place] [address] [place] Urea nitrogen [Mass/Vol] 20 mg/dL Normal 7-21 [facility] Comment on above: Order Comment: Speci men Type: BLOOD SPECIMENOrdering Facility: [facility] Address: [address] [place] [address] Performed By: #### 2 4323-8 ####[facility] MILLTOWNCLIA [id number] [place] [address] [place] CBC W Auto Differential pane l (Bld)on 08-31-2024 Basophils (Bld) [#/Vol] 0.00 10*3/uL Normal <0.11 [facility] Comment on above: Order Comment: Speci men Type: BLOOD SPECIMENOrdering Facility: [facility] Address: [address] [place] [address] Performed By: #### 5 7021-8 ####[facility] MILLTOWNCLIA [id number] [address] LABORATORYCLIA [id number] [place] [address] [place] Basophils/100 WBC (Bld) 0.0 % Normal [facility] Comment on above: Order Comment: Speci men Type: BLOOD SPECIMENOrdering Facility: [facility] Address: [address] [place] [address] Performed By: #### 5 7021-8 ####[facility]ITALL[facility] [id number] [address] LABORATORYCLIA [id number] [place] [address] [place] [facility] Differential cell count method Nom (Bld) Manual Normal [facility] Comment on above: Order Comment: Speci men Type: BLOOD SPECIMENOrdering Facility: [facility] Address: [address] [place] [address] Performed By: #### 5 7021-8 ####[facility] HOSPITALWNCLIA [id number] [address] LABORATORYCLIA [id number] [place] [address] [place] Eosinophils (Bld) [#/Vol] 0.20 10*3/uL Normal <0.46 [facility] Comment on above: Order Comment: Speci men Type: BLOOD SPECIMENOrdering Facility: [facility] Address: [address] [place] [address] Performed By: #### 5 7021-8 ####[facility] MILLTOWNCLIA [id number] [address] LABORATORYCLIA [id number] [place] [address] [place] Eosinophils/100 WBC (Bld) 2.0 % Normal [facility] Comment on above: Order Comment: Speci men Type: BLOOD SPECIMENOrdering Facility: [facility] Address: [address] [place] [address] Performed By: #### 5 7021-8 ####[facility]CL[facility] [id number] [address] LABORATORYCLIA [id number] [place] [address] [place] Erythrocyte distribution width (RBC) [Ratio] 14.1 % Normal 11.5-15.0 [facility] Comment on above: Order Comment: Speci men Type: BLOOD SPECIMENOrdering Facility: [facility] Address: [address] [place] [address] Performed By: #### 5 7021-8 ####[facility] MILLTOWNCLIA [id number] [address] LABORATORYCLIA [id number] [place] [address] [place] Hematocrit (Bld) [Volume fraction] 37.0 % Normal 36.0-46.0 [facility] Comment on above: Order Comment: Speci men Type: BLOOD SPECIMENOrdering Facility: [facility] Address: [address] [place] [address] Performed By: #### 5 7021-8 ####[facility] MILLTOWNCLIA [id number] [address] LABORATORYCLIA [id number] [place] [address] [place] Hemoglobin (Bld) [Mass/Vol] 11.8 g/dL Normal 11.5-15.5 [facility] Comment on above: Order Comment: Speci men Type: BLOOD SPECIMENOrdering Facility: [facility] Address: [address] [place] [address] Performed By: #### 5 7021-8 ####[facility] MILLTOWNCLIA [id number] [address] LABORATORYCLIA [id number] [place] [address] [place] Lymphocytes (Bld) [#/Vol] 5.72 10*3/uL High 1.00-4.00 [facility] Comment on above: Order Comment: Speci men Type: BLOOD SPECIMENOrdering Facility: [facility] Address: [address] [place] [address] Performed By: #### 5 7021-8 ####[facility] HOSPITALWNCLIA [id number] [address] LABORATORYCLIA [id number] [place] [address] [place] Lymphocytes/100 WBC (Bld) 56.0 % Normal [facility] Comment on above: Order Comment: Speci men Type: BLOOD SPECIMENOrdering Facility: [facility] Address: [address] [place] [address] Performed By: #### 5 7021-8 ####[facility]LLASNCLIA [id number] [address] LABORATORYCLIA [id number] [place] [address] [place] MCH (RBC) [Entitic mass] 31.6 pg Normal 26.0-34.0 [facility] Comment on above: Order Comment: Speci men Type: BLOOD SPECIMENOrdering Facility: [facility] Address: [address] [place] [address] Performed By: #### 5 7021-8 ####[facility] HOSPITALWNCLIA [id number] [address] LABORATORYCLIA [id number] [address] [place] MCHC (RBC) [Mass/Vol] 31.9 g/dL Normal 30.5-36.0 [facility] Comment on above: Order Comment: Speci men Type: BLOOD SPECIMENOrdering Facility: [facility] Address: [address] [place] [address] Performed By: #### 5 7021-8 ####[facility] [id number] [address] LABORATORYCLIA [id number] [place] [address] [place] MCV (RBC) [Entitic vol] 98.9 fL Normal 80.0-100.0 [facility] Comment on above: Order Comment: Speci men Type: BLOOD SPECIMENOrdering Facility: [facility] Address: [address] [place] [address] Performed By: #### 5 7021-8 ####[facility] [id number] [address] LABORATORYCLIA [id number] [address] [place] Monocytes (Bld) [#/Vol] 0.20 10*3/uL Normal <0.87 [facility] Comment on above: Order Comment: Speci men Type: BLOOD SPECIMENOrdering Facility: [facility] Address: [address] [place] [address] Performed By: #### 5 7021-8 ####[facility] MILLTOWNCLIA [id number] [address] LABORATORYCLIA [id number] [place] [address] [place] Monocytes/100 WBC (Bld) 2.0 % Normal [facility] Comment on above: Order Comment: Speci men Type: BLOOD SPECIMENOrdering Facility: [facility] Address: [address] [place] [address] Performed By: #### 5 7021-8 ####[facility] MILLTOWNCLIA [id number] [address] LABORATORYCLIA [id number] [place] [address] [place] Neutrophils (Bld) [#/Vol] 4.09 10*3/uL Normal 1.45-7.50 [facility] Comment on above: Order Comment: Speci men Type: BLOOD SPECIMENOrdering Facility: [facility] Address: [address] [place] [address] Performed By: #### 5 7021-8 ####[facility] MILLTOWNCLIA [id number] [address] LABORATORYCLIA [id number] [place] [address] [place] Neutrophils/100 WBC (Bld) 40.0 % Normal [facility] Comment on above: Order Comment: Speci men Type: BLOOD SPECIMENOrdering Facility: [facility] Address: [address] [place], [place] [address] Performed By: #### 5 7021-8 ####[facility] MILLTOWNCLIA [id number] [address] LABORATORYCLIA [id number] [place] [address] [place] Nucleated RBC (Bld) [#/Vol] 10*3/uL Normal <0.01 [facility] Comment on above: Order Comment: Speci men Type: BLOOD SPECIMENOrdering Facility: [facility] Address: [address] [place] [address] Performed By: #### 5 7021-8 ####[facility] [id number] [address] LABORATORYCLIA [id number] [place] [address] [place] Nucleated RBC/100 WBC (Bld) [Ratio] 0.0 /100 WBC Normal [facility] Comment on above: Order Comment: Speci men Type: BLOOD SPECIMENOrdering Facility: [facility] Address: [address] [place] [address] Performed By: #### 5 7021-8 ####[facility] [id number] [address] LABORATORYCLIA [id number] [address] [place] Ovalocytes LM Ql (Bld) Few Normal Cl [facility] Comment on above: Order Comment: Speci men Type: BLOOD SPECIMENOrdering Facility: [facility] Address: [address] [place] [address] Performed By: #### 5 7021-8 ####[facility] [id number] [address] LABORATORYCLIA [id number] [place] [address] [place] [facility] Platelet mean volume (Bld) [Entitic vol] 10.3 fL Normal 9.0-12.7 [facility] Comment on above: Order Comment: Speci men Type: BLOOD SPECIMENOrdering Facility: [facility] Address: [address] [place] [address] Performed By: #### 5 7021-8 ####[facility] MILLTOWNCLIA [id number] [address] LABORATORYCLIA [id number] [place] [address] [place] Platelets (Bld) [#/Vol] 167 10*3/uL Normal 150-400 [facility] Comment on above: Order Comment: Speci men Type: BLOOD SPECIMENOrdering Facility: [facility] Address: [facility] [place] [address] Performed By: #### 5 7021-8 ####[facility] HOSPITALWNCLIA [id number] [address] LABORATORYCLIA [id number] [place] [address] [place] Platelets Estimate (Bld) [#/Vol] Adequate Normal [facility] Comment on above: Order Comment: Speci men Type: BLOOD SPECIMENOrdering Facility: [facility] Address: [facility] [place] [address] Performed By: #### 5 7021-8 ####[facility] HOSPITALWNCLIA [id number] [address] LABORATORYCLIA [id number] [place] [address] [place] RBC (Bld) [#/Vol] 3.74 10*6/uL Low 3.90-5.20 [facility] Comment on above: Order Comment: Speci men Type: BLOOD SPECIMENOrdering Facility: [facility] Address: [address] [place] [address] Performed By: #### 5 7021-8 ####[facility] MILLTOWNCLIA [id number] [address] LABORATORYCLIA [id number] [place] [address] [place] RBC FRAGMENTS Few Abnormal None Seen [facility] Comment on above: Order Comment: Speci men Type: BLOOD SPECIMENOrdering Facility: [facility] Address: [address] [place] [address] Performed By: #### 5 7021-8 ####[facility] [id number] [address] LABORATORYCLIA [id number] [place] [address] [place] RED CELL MORPH Reviewed: see result s of individual morphologies Normal [facility] Comment on above: Order Comment: Speci men Type: BLOOD SPECIMENOrdering Facility: [facility] Address: [address] [place] [address] Performed By: #### 5 7021-8 ####[facility] [id number] [address] LABORATORYCLIA [id number] [place] [address] [place] WBC (Bld) [#/Vol] 10.22 10*3/uL Normal 3.70-11.00 [facility] Comment on above: Order Comment: Speci men Type: BLOOD SPECIMENOrdering Facility: [facility] Address: [address] [place] [address] Performed By: #### 5 7021-8 ####[facility] [id number] [address] LABORATORYCLIA [id number] [place] [address] [place] CNPNon 08-31-2024 CNPN Normal [facility] Cancer Ag125 SerPl-aCncon Cancer Ag 125 Qn 20 [arb'U]/mL Normal <39 [facility] Comment on above: Order Comment: Speci men Type: BLOOD SPECIMENOrdering Facility: [facility] Address: [address] [place] [address] Result Comment: CA 1 25 test methodology used is the Electrochemiluminescence Immunoassay by [employer]. Results obtained with different methods or kits cannot be used interchangeably.The reference interval is based on the 95th percentile of 240 apparently healthy premenopausal and postmenopausal women. At a cutoff value of 65 U/mL, the test sensitivity to distinguish ovarian carcinoma (FIGO stage I to IV) versus benign gynecological disease is 79%, with a specificity of 82%.Reference: Cancer Antigen 125 (CA 125 II) [package insert V 1.0 [place]]. [employer]jug, [place], [place] (December 2014) Performed By: #### 1 0334-1 ####[facility] LABCLIA [id number] [place] [address] [place] Comprehensive metabolic 2000 panelon 08-31-2024 Albumin [Mass/Vol] 3.9 g/dL Normal 3.9-4.9 [facility] Comment on above: Order Comment: Speci men Type: BLOOD SPECIMENOrdering Facility: [facility] Address: [address] [place] [address] Performed By: #### 2 4323-8 ####[facility] [id number] [place] [address] [place] ALP [Catalytic activity/Vol] 78 U/L Normal 34-123 [facility] Comment on above: Order Comment: Speci men Type: BLOOD SPECIMENOrdering Facility: [facility] Address: [address] [place] [address] Performed By: #### 2 4323-8 ####[facility] [id number] [place] [address] [place] ALT [Catalytic activity/Vol] 7 U/L Normal 7-38 [facility] Comment on above: Order Comment: Speci men Type: BLOOD SPECIMENOrdering Facility: [facility] Address: [address] [place] [address] Performed By: #### 2 4323-8 ####[facility] MILLTOWNCLIA [id number] [place] [address] [place] Anion gap [Moles/Vol] 14 mmol/L Normal 8-15 [facility] Comment on above: Order Comment: Speci men Type: BLOOD SPECIMENOrdering Facility: [facility] Address: [address] [place] [address] Performed By: #### 2 4323-8 ####[facility] MILLWNCLIA [id number] [place] [address] [place] AST [Catalytic activity/Vol] 18 U/L Normal 13-35 [facility] Comment on above: Order Comment: Speci men Type: BLOOD SPECIMENOrdering Facility: [facility] Address: [address] [place] [address] Performed By: #### 2 4323-8 ####[facility] HOSPITALWNCLIA [id number] [place] [address] [place] Bilirubin [Mass/Vol] 0.5 mg/dL Normal 0.2-1.3 [facility] Comment on above: Order Comment: Speci men Type: BLOOD SPECIMENOrdering Facility: [facility] Address: [address] [place] [address] Performed By: #### 2 4323-8 ####[facility] MILLTOWNCLIA [id number] [place] [address] [place] Calcium [Mass/Vol] 8.9 mg/dL Normal 8.5-10.2 [facility] Comment on above: Order Comment: Speci men Type: BLOOD SPECIMENOrdering Facility: [facility] Address: [address] [place] [address] Performed By: #### 2 4323-8 ####[facility] MILLWNCLIA [id number] [place] [address] [place] Chloride [Moles/Vol] 101 mmol/L Normal 98-107 [facility] Comment on above: Order Comment: Speci men Type: BLOOD SPECIMENOrdering Facility: [facility] Address: [address] [place] [address] Performed By: #### 2 4323-8 ####[facility] [id number] [place] [address] [place] CO2 [Moles/Vol] 22 mmol/L Normal 22-30 [facility] Comment on above: Order Comment: Speci men Type: BLOOD SPECIMENOrdering Facility: [facility] Address: [address] [place] [address] Performed By: #### 2 4323-8 ####[facility] [id number] [place] [address] [place] Creatinine [Mass/Vol] 1.34 mg/dL High 0.58-0.96 [facility] Comment on above: Order Comment: Speci men Type: BLOOD SPECIMENOrdering Facility: [facility] Address: [address] [place] [address] Performed By: #### 2 4323-8 ####[facility] [id number] [place] [address] [facility] Creatinine and Glomerular filtration rate.predicted panel (S/P/Bld) 39 mL/min/1.73m??? Low >=60 [facility] Comment on above: Order Comment: Speci men Type: BLOOD SPECIMENOrdering Facility: [facility] Address: [address] [place] [address] Result Comment: Irina mated Glomerular Filtration Rate (eGFR) is calculated using the 2020 CKD-EPI creatinine equation. This equation utilizes serum creatinine, sex, and age as parameters. The creatinine assay has traceable calibration to isotope dilution-mass spectrometry. Refer to KDIGO guidelines for clinical interpretation. In patients with unstable renal function, e.g. those with acute kidney injury, the eGFR may not accurately reflect actual GFR. Performed By: #### 2 4323-8 ####[facility] [id number] [place] [address] [place] Glucose [Mass/Vol] 98 mg/dL Normal 74-99 [facility] Comment on above: Order Comment: Speci men Type: BLOOD SPECIMENOrdering Facility: [facility] Address: [address] [place] [address] Result Comment: The [place] Diabetes Association (ADA) provides guidance for cutoff values for fasting glucose and random glucose. The ADA defines fasting as no caloric intake for at least 8 hours. Fasting plasma glucose results between 100 to 125 mg/dL indicate increased risk for diabetes (prediabetes).Fasting plasma glucose results greater than or equal to 126 mg/dL meet the criteria for diagnosis of diabetes. In the absence of unequivocal hyperglycemia, results should be confirmed by repeat testing. In a patient with classic symptoms of hyperglycemia or hyperglycemic crisis, random plasma glucose results greater than or equal to 200 mg/dL meet the criteria for diagnosis of diabetes.Reference: Standards of Medical Care in Diabetes 2016, [place] Diabetes Association. Diabetes Care. 2016.39(Suppl 1). Performed By: #### 2 4323-8 ####[facility]NCLIA [id number] [place] [address] [place] Potassium [Moles/Vol] 4.2 mmol/L Normal 3.7-5.1 [facility] Comment on above: Order Comment: Rubinai men Type: BLOOD SPECIMENOrdering Facility: [facility] Address: [address] [place] [address] Performed By: #### 2 4323-8 ####[facility]NCL[facility] [id number] [place] [address] [place] Protein [Mass/Vol] 6.5 g/dL Normal 6.3-8.0 [facility] Comment on above: Order Comment: Rubinai men Type: BLOOD SPECIMENOrdering Facility: [facility] Address: [address] [place] [address] Performed By: #### 2 4323-8 ####[facility]CL[facility] [id number] [place] [address] [place] Sodium [Moles/Vol] 137 mmol/L Normal 136-144 [facility] Comment on above: Order Comment: Speci men Type: BLOOD SPECIMENOrdering Facility: [facility] Address: [address] [place] [address] Performed By: #### 2 4323-8 ####[facility] [id number] [place] [address] [place] Urea nitrogen [Mass/Vol] 17 mg/dL Normal 7-21 [facility] Comment on above: Order Comment: Speci men Type: BLOOD SPECIMENOrdering Facility: [facility] Address: [address] [place] [address] Performed By: #### 2 4323-8 ####[facility]CL[facility] [id number] [place] [address] [place] Laboratory - Microbiology an d Antimicrobial susceptibilityOrdered By: Terrell Gutiérrez on 08-25-2024 SARS-CoV-2 (COVID-19) RNA MARYJO+probe Ql (Unsp spec) Not detected [facility] No Panel InformationOrdered By: Terrell Gutiérrez on 08-25-2024 Influenza Types A,B Rapid (Clinic) Negative [facility] Urgent Care Visit Reporton 0 08-25-2024 Urgent Care Visit Report [facility] [address] [place] [address] OFFICE VISIT Date of Service: 08/25/24 MR#: [id number] Acct: [id number] Name: ASHLEY ALCANTAR Rep #: [id number] : 1940 Provider: CHAY Fernández Age/Sex: 84/F Location: [facility] Status: Signed Intake Vital Signs 07/09/24 14:44 08/25/24 16:33 Height 4 ft 10 in Weight: 127 lb BMI 26.5 BP 124/68 H 120/80 Blood Pressure Location Rt brachial Position Sitting Sitting Respiration 16 Pulse 56 L 64 Pulse Source Monitor Temp 98.0 F 98.3 F Temp Source Temporal Oral Pulse Oximetry (%) 96 99 Oxygen Delivery Method room air room air Intake Visit Reasons: NAUSEA/BA/FEVER Accompanied by: Self Allergies cephalexin (From Keflex) Allergy (Severe, Verified 08/25/24 16:29) Other Medications ???Medication ???Instructions ???Recorded ???Confirmed ???Type ferrous sulfate 325 mg (65 mg 325 mg PO QODAY 01/29/22 08/25/24 History iron) tablet b12 PO 11/26/22 08/25/24 History Lactobacillus acidophilus 1 1,000 mmu cells PO DAILY 07/18/23 08/25/24 History billion cell capsule (Probiotic Gold Acidophilus) ascorbic acid (vitamin C) 500 mg 500 mg PO DAILY 07/18/23 08/25/24 History tablet cholecalciferol (vitamin D3) 25 25 mcg PO DAILY 07/18/23 08/25/24 History mcg (1,000 unit) tablet olaparib 100 mg tablet (Lynparza) 100 mg PO BID 07/18/23 08/25/24 H istory pyridoxine (vitamin B6) 100 mg 100 mg PO DAILY 07/18/23 08/25/24 History tablet apixaban 5 mg tablet (Eliquis) 5 mg PO BID #180 tabs 04/07/24 Rx levothyroxine 75 mcg tablet 75 mcg PO DAILY #90 tabs 05/04/24 08/25/24 Rx cranberry extract 200 mg capsule 200 mg PO QDAY 07/09/24 08/25/24 H istory lisinopril 5 mg tablet 10 mg (2 x 5 mg) PO DAILY #90 tabs 07/09/24 08/25/24 Rx Have you fallen in the past year?: No Nurse's Note: Patient has nausea,BA and fever with Leo ear pain. Patient states it started Sun night and she woke up around 2am and throw up and had diarrhea. Patient hasn't puked or had diarrhea since then. Patient states last night that she had a fever of 100.6. [facility] Medical History (Updated 07/09/24 @ 16:[address] Vern Bernardo MD) Groin discomfort Cyst of right kidney Cyst of left kidney Fatty liver Recurrent right pleural effusion Pelvic mass Hypotension CLL (chronic lymphocytic leukemia) Anxiety Mixed hyperlipidemia Acute sinusitis CKD (chronic kidney disease) Contact with and (suspected) exposure to other viral communicable diseases Urinary tract infection with hematuria History of right and left heart catheterization (LHC) ( 09/29/21) Nonrheumatic aortic (valve) stenosis with insufficiency Tinnitus Elevated TSH Preop exam for internal medicine Aortic regurgitation Aortic stenosis Elevated blood pressure reading in office without diagnosis of hypertension Glaucoma Contusion of left hand including fingers Acute maxillary sinusitis, unspecified Hematuria UTI (urinary tract infection) Post herpetic neuralgia Strain of right trapezius muscle Incontinence Limb weakness Diarrhea Shoulder pain Surgical History H/O: hysterectomy History of transcatheter aortic valve replacement (TAVR) ( 12/14/21) History of bilateral cataract extraction Family History Other Colon cancer Diabetes Myocardial infarction Social History household members: other details: number of children: 4 current occupational 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 Though patient notes feeling much better today, nonetheless would like to be screened for COVID-19 and influenza. Currently no complaints of fever, chills, sweats, lightheadedness/dizziness, chest pain or shortness of breath or dyspnea on exertion. Unsure if close contacts recently dx???d w/ similar URI complaints. No rrxh-nno-npidxoz taken to assist. Patient admits to eating potato salad 2 evenings ago and developed the above symptoms within an hour or 2 afterwards. No other associated symptoms and no other alleviating/aggravating factors. ROS Const Constitutional: No other (As above) Exam Const General: cooperative, healthy appearing and no acute distre (more content not included)... Normal [facility] CNPNon 08-18-2024 CNPN Normal [facility] CBC W Auto Differential pane l (Bld)on 08-17-2024 Basophils (Bld) [#/Vol] 0.00 10*3/uL Normal <0.11 [facility] Comment on above: Order Comment: Speci men Type: BLOOD SPECIMENOrdering Facility: [facility] Address: [address] [place] [address] Performed By: #### 5 7021-8 ####[facility] [id number] [address] LABORATORYCLIA [id number] [place] [address] [place] Basophils/100 WBC (Bld) 0.0 % Normal [facility] Comment on above: Order Comment: Speci men Type: BLOOD SPECIMENOrdering Facility: [facility] Address: [address] [place] [address] Performed By: #### 5 7021-8 ####[facility] [id number] [address] LABORATORYCLIA [id number] [place] [address] [place] Differential cell count method Nom (Bld) Manual Normal [facility] Comment on above: Order Comment: Speci men Type: BLOOD SPECIMENOrdering Facility: [facility] Address: [address] [place] [address] Performed By: #### 5 7021-8 ####[facility] [id number] [address] LABORATORYCLIA [id number] [place] [address] [place] Eosinophils (Bld) [#/Vol] 0.14 10*3/uL Normal <0.46 [facility] Comment on above: Order Comment: Speci men Type: BLOOD SPECIMENOrdering Facility: [facility] Address: [address] [place] [address] Performed By: #### 5 7021-8 ####[facility] MILLTOWSCLIA [id number] [address] LABORATORYCLIA [id number] [place] [address] [place] Eosinophils/100 WBC (Bld) 1.0 % Normal [facility] Comment on above: Order Comment: Speci men Type: BLOOD SPECIMENOrdering Facility: [facility] Address: [address] [place] [address] Performed By: #### 5 7021-8 ####[facility] [id number] [address] LABORATORYCLIA [id number] [address] [facility] Erythrocyte distribution width (RBC) [Ratio] 14.6 % Normal 11.5-15.0 [facility] Comment on above: Order Comment: Speci men Type: BLOOD SPECIMENOrdering Facility: [facility] Address: [address] [place] [address] Performed By: #### 5 7021-8 ####[facility] [id number] [address] LABORATORYCLIA [id number] [address] [place] Hematocrit (Bld) [Volume fraction] 38.1 % Normal 36.0-46.0 [facility] Comment on above: Order Comment: Speci men Type: BLOOD SPECIMENOrdering Facility: [facility] Address: [address] [place] [address] Performed By: #### 5 7021-8 ####[facility] MARIANNEWTAYLORLIA [id number] [address] LABORATORYCLIA [id number] [place] [address] [place] Hemoglobin (Bld) [Mass/Vol] 12.4 g/dL Normal 11.5-15.5 [facility] Comment on above: Order Comment: Speci men Type: BLOOD SPECIMENOrdering Facility: [facility] Address: [address] [place] [address] Performed By: #### 5 7021-8 ####[facility] HOSPITALWTAYLORLIA [id number] [address] LABORATORYCLIA [id number] [place] [address] [place] Lymphocytes (Bld) [#/Vol] 10.00 10*3/uL High 1.00-4.00 [facility] Comment on above: Order Comment: Speci men Type: BLOOD SPECIMENOrdering Facility: [facility] Address: [address] [place] [address] Performed By: #### 5 7021-8 ####[facility] ALYSONTAYLORLIA [id number] [address] LABORATORYCLIA [id number] [place] [address] [place] Lymphocytes/100 WBC (Bld) 71.0 % Normal [facility] Comment on above: Order Comment: Speci men Type: BLOOD SPECIMENOrdering Facility: [facility] Address: [address] [place] [address] Performed By: #### 5 7021-8 ####[facility] MARIANNEWTAYLORLIA [id number] [address] LABORATORYCLIA [id number] [place] [address] [place] [facility] MCH (RBC) [Entitic mass] 31.8 pg Normal 26.0-34.0 [facility] Comment on above: Order Comment: Speci men Type: BLOOD SPECIMENOrdering Facility: [facility] Address: [address] [place] [address] Performed By: #### 5 7021-8 ####[facility] MILLTOWNCLIA [id number] [address] LABORATORYCLIA [id number] [place] [address] [place] [facility] MCHC (RBC) [Mass/Vol] 32.5 g/dL Normal 30.5-36.0 [facility] Comment on above: Order Comment: Speci men Type: BLOOD SPECIMENOrdering Facility: [facility] Address: [address] [place] [address] Performed By: #### 5 7021-8 ####[facility] HOSPITALWNCLIA [id number] [address] LABORATORYCLIA [id number] [address] [facility] MCV (RBC) [Entitic vol] 97.7 fL Normal 80.0-100.0 [facility] Comment on above: Order Comment: Speci men Type: BLOOD SPECIMENOrdering Facility: [facility] Address: [address] [place] [address] Performed By: #### 5 7021-8 ####[facility]CLIA [id number] [address] LABORATORYCLIA [id number] [place] [address] [place] Monocytes (Bld) [#/Vol] 0.56 10*3/uL Normal <0.87 [facility] Comment on above: Order Comment: Speci men Type: BLOOD SPECIMENOrdering Facility: [facility] Address: [address] [place] [address] Performed By: #### 5 7021-8 ####[facility]TOWNCLIA [id number] [address] LABORATORYCLIA [id number] [place] [address] [place] Monocytes/100 WBC (Bld) 4.0 % Normal [facility] Comment on above: Order Comment: Speci men Type: BLOOD SPECIMENOrdering Facility: [facility] Address: [address] [place] [address] Performed By: #### 5 7021-8 ####[facility] [id number] [address] LABORATORYCLIA [id number] [place] [address] [place] Neutrophils (Bld) [#/Vol] 3.38 10*3/uL Normal 1.45-7.50 [facility] Comment on above: Order Comment: Speci men Type: BLOOD SPECIMENOrdering Facility: [facility] Address: [address] [place] [address] Performed By: #### 5 7021-8 ####[facility] HOSPITALLIA [id number] [address] LABORATORYCLIA [id number] [place] [address] [place] Neutrophils/100 WBC (Bld) 24.0 % Normal [facility] Comment on above: Order Comment: Speci men Type: BLOOD SPECIMENOrdering Facility: [facility] Address: [address] [place] [address] Performed By: #### 5 7021-8 ####[facility] MILLTOWNCLIA [id number] [address] LABORATORYCLIA [id number] [place] [address] [place] Nucleated RBC (Bld) [#/Vol] 10*3/uL Normal <0.01 [facility] Comment on above: Order Comment: Speci men Type: BLOOD SPECIMENOrdering Facility: [facility] Address: [address] [place] [address] Performed By: #### 5 7021-8 ####[facility] HOSPITALWNCLIA [id number] [address] LABORATORYCLIA [id number] [place] [address] [place] Nucleated RBC/100 WBC (Bld) [Ratio] 0.0 /100 WBC Normal [facility] Comment on above: Order Comment: Speci men Type: BLOOD SPECIMENOrdering Facility: [facility] Address: [address] [place] [address] Performed By: #### 5 7021-8 ####[facility] HOSPITALLIA [id number] [address] LABORATORYCLIA [id number] [place] [address] [place] Ovalocytes LM Ql (Bld) Few Normal [facility] Comment on above: Order Comment: Speci men Type: BLOOD SPECIMENOrdering Facility: [facility] Address: [address] [place] [address] Performed By: #### 5 7021-8 ####[facility] HOSPITALWNCLIA [id number] [address] LABORATORYCLIA [id number] [place] [address] [place] Platelet mean volume (Bld) [Entitic vol] 10.6 fL Normal 9.0-12.7 [facility] Comment on above: Order Comment: Speci men Type: BLOOD SPECIMENOrdering Facility: [facility] Address: [address] [place] [address] Performed By: #### 5 7021-8 ####[facility]LLASNCLIA [id number] [address] LABORATORYCLIA [id number] [place] [address] [place] Platelets (Bld) [#/Vol] 169 10*3/uL Normal 150-400 [facility] Comment on above: Order Comment: Speci men Type: BLOOD SPECIMENOrdering Facility: [facility] Address: [address] [place] [address] Performed By: #### 5 7021-8 ####[facility] [id number] [address] LABORATORYCLIA [id number] [place] [address] [place] Platelets Estimate (Bld) [#/Vol] Adequate Normal [facility] Comment on above: Order Comment: Speci men Type: BLOOD SPECIMENOrdering Facility: [facility] Address: [address] [place] [address] Performed By: #### 5 7021-8 ####[facility] HOSPITALLIA [id number] [address] LABORATORYCLIA [id number] [place] [address] [place] RBC (Bld) [#/Vol] 3.90 10*6/uL Normal 3.90-5.20 [facility] Comment on above: Order Comment: Speci men Type: BLOOD SPECIMENOrdering Facility: [facility] Address: [address] [place] [address] Performed By: #### 5 7021-8 ####[facility] MILLTOWNCLIA [id number] [address] LABORATORYCLIA [id number] [place] [address] [place] RBC FRAGMENTS Few Abnormal None Seen [facility] Comment on above: Order Comment: Speci men Type: BLOOD SPECIMENOrdering Facility: [facility] Address: [address] [place] [address] Performed By: #### 5 7021-8 ####[facility] MILLWNCLIA [id number] [address] LABORATORYCLIA [id number] [place] [address] [place] RED CELL MORPH Reviewed: see result s of individual morphologies Normal [facility] Comment on above: Order Comment: Speci men Type: BLOOD SPECIMENOrdering Facility: [facility] Address: [address] [place] [address] Performed By: #### 5 7021-8 ####[facility] HOSPITALWNCLIA [id number] [address] LABORATORYCLIA [id number] [place] [address] [place] WBC (Bld) [#/Vol] 14.09 10*3/uL High 3.70-11.00 [facility] Comment on above: Order Comment: Speci men Type: BLOOD SPECIMENOrdering Facility: [facility] Address: [address] [place] [address] Performed By: #### 5 7021-8 ####[facility] MILLTOWNCLIA [id number] [address] LABORATORYCLIA [id number] [address] [place] [facility] Comprehensive metabolic 2000 panelon 08-17-2024 Albumin [Mass/Vol] 4.2 g/dL Normal 3.9-4.9 [facility] Comment on above: Order Comment: Speci men Type: BLOOD SPECIMENOrdering Facility: [facility] Address: [address] [place] [address] Performed By: #### 2 4323-8 ####[facility] HOSPITALLIA [id number] [place] [address] [place] ALP [Catalytic activity/Vol] 83 U/L Normal 34-123 [facility] Comment on above: Order Comment: Speci men Type: BLOOD SPECIMENOrdering Facility: [facility] Address: [address] [place] [address] Performed By: #### 2 4323-8 ####[facility] PINELLASTAYLORLIA [id number] [place] [address] [place] ALT [Catalytic activity/Vol] 10 U/L Normal 7-38 [facility] Comment on above: Order Comment: Speci men Type: BLOOD SPECIMENOrdering Facility: [facility] Address: [address] [place] [address] Performed By: #### 2 4323-8 ####[facility] HOSPITALLIA [id number] [place] [address] [place] Anion gap [Moles/Vol] 13 mmol/L Normal 8-15 [facility] Comment on above: Order Comment: Speci men Type: BLOOD SPECIMENOrdering Facility: [facility] Address: [address] [place] [address] Performed By: #### 2 4323-8 ####[facility] PINELLASNCLIA [id number] [place] [address] [place] AST [Catalytic activity/Vol] 22 U/L Normal 13-35 [facility] Comment on above: Order Comment: Speci men Type: BLOOD SPECIMENOrdering Facility: [facility] Address: [address] [place] [address] Performed By: #### 2 4323-8 ####[facility] ANDRESALEXWNCLIA [id number] [place] [address] [place] Bilirubin [Mass/Vol] 0.7 mg/dL Normal 0.2-1.3 [facility] Comment on above: Order Comment: Speci men Type: BLOOD SPECIMENOrdering Facility: [facility] Address: [address] [place] [address] Performed By: #### 2 4323-8 ####[facility] PINELLASTAYLORLIA [id number] [place] [address] [place] Calcium [Mass/Vol] 9.1 mg/dL Normal 8.5-10.2 [facility] Comment on above: Order Comment: Speci men Type: BLOOD SPECIMENOrdering Facility: [facility] Address: [address] [place] [address] Performed By: #### 2 4323-8 ####[facility] HOSPITALKEANUA [id number] [place] [address] [place] Chloride [Moles/Vol] 102 mmol/L Normal 98-107 [facility] Comment on above: Order Comment: Speci men Type: BLOOD SPECIMENOrdering Facility: [facility] Address: [address] [place] [address] Performed By: #### 2 4323-8 ####[facility] MILLTOWNCLIA [id number] [place] [address] [place] CO2 [Moles/Vol] 18 mmol/L Low 22-30 [facility] Comment on above: Order Comment: Speci men Type: BLOOD SPECIMENOrdering Facility: [facility] Address: [address] [place] [address] Performed By: #### 2 4323-8 ####[facility] PINELLASTAYLORLI [id number] [place] [address] [place] Creatinine [Mass/Vol] 1.30 mg/dL High 0.58-0.96 [facility] Comment on above: Order Comment: Zeus stanton Type: BLOOD SPECIMENOrdering Facility: [facility] Address: [address] [place] [address] Performed By: #### 2 4323-8 ####[facility] [id number] [place] [address] [place] Creatinine and Glomerular filtration rate.predicted panel (S/P/Bld) 40 mL/min/1.73m??? Low >=60 [facility] Comment on above: Order Comment: Zeus stanton Type: BLOOD SPECIMENOrdering Facility: [facility] Address: [address] [place] [address] Result Comment: Irina mated Glomerular Filtration Rate (eGFR) is calculated using the 2020 CKD-EPI creatinine equation. This equation utilizes serum creatinine, sex, and age as parameters. The creatinine assay has traceable calibration to isotope dilution-mass spectrometry. Refer to KDIGO guidelines for clinical interpretation. In patients with unstable renal function, e.g. those with acute kidney injury, the eGFR may not accurately reflect actual GFR. Performed By: #### 2 4323-8 ####[facility] [id number] [place] [address] [place] Glucose [Mass/Vol] 97 mg/dL Normal 74-99 [facility] Comment on above: Order Comment: Zeus stanton Type: BLOOD SPECIMENOrdering Facility: [facility] Address: [address] [place] [address] Result Comment: The [place] Diabetes Association (ADA) provides guidance for cutoff values for fasting glucose and random glucose. The ADA defines fasting as no caloric intake for at least 8 hours. Fasting plasma glucose results between 100 to 125 mg/dL indicate increased risk for diabetes (prediabetes).Fasting plasma glucose results greater than or equal to 126 mg/dL meet the criteria for diagnosis of diabetes. In the absence of unequivocal hyperglycemia, results should be confirmed by repeat testing. In a patient with classic symptoms of hyperglycemia or hyperglycemic crisis, random plasma glucose results greater than or equal to 200 mg/dL meet the criteria for diagnosis of diabetes.Reference: Standards of Medical Care in Diabetes 2016, [place] [employer] Association. Diabetes Care. 2016.39(Suppl 1). Performed By: #### 2 4323-8 ####[facility] HOSPITALLIChar [id number] [place] [address] [place] Potassium [Moles/Vol] 4.6 mmol/L Normal 3.7-5.1 [facility] Comment on above: Order Comment: Speci men Type: BLOOD SPECIMENOrdering Facility: [facility] Address: [address] [place] [address] Performed By: #### 2 4323-8 ####[facility]ONChar [id number] [place] [address] [place] Protein [Mass/Vol] 6.7 g/dL Normal 6.3-8.0 [facility] Comment on above: Order Comment: Speci men Type: BLOOD SPECIMENOrdering Facility: [facility] Address: [address] [place] [address] Performed By: #### 2 4323-8 ####[facility] HOSPITALLI [id number] [place] [address] [place] Sodium [Moles/Vol] 133 mmol/L Low 136-144 [facility] Comment on above: Order Comment: Speci men Type: BLOOD SPECIMENOrdering Facility: [facility] Address: [address] [place], [place] [address] Performed By: #### 2 4323-8 ####[facility] HOSPITALLI [id number] [place] [address] [place] Urea nitrogen [Mass/Vol] 24 mg/dL High 7-21 [facility] Comment on above: Order Comment: Speci men Type: BLOOD SPECIMENOrdering Facility: [facility] Address: [address] [place] [address] Performed By: #### 2 4323-8 ####[facility] HOSPITALWTAYLORLIA [id number] [place] [address] [place] CBC W Auto Differential pane l (Bld)on 08-10-2024 Anisocytosis Ql (Bld) Present Normal [facility] Comment on above: Order Comment: Speci men Type: BLOOD SPECIMENOrdering Facility: [facility] Address: [address] [place] [address] Performed By: #### 5 7021-8 ####[facility] HOSPITALWTAYLORA [id number] [address] LABORATORYCLIA [id number] [place] [address] [place] Basophils (Bld) [#/Vol] 0.00 10*3/uL Normal <0.11 [facility] Comment on above: Order Comment: Speci men Type: BLOOD SPECIMENOrdering Facility: [facility] Address: [address] [place] [address] Performed By: #### 5 7021-8 ####[facility] PINELLASTAYLORLIA [id number] [address] LABORATORYCLIA [id number] [place] [address] [place] Basophils/100 WBC (Bld) 0.0 % Normal [facility] Comment on above: Order Comment: Speci men Type: BLOOD SPECIMENOrdering Facility: [facility] Address: [address] [place] [address] Performed By: #### 5 7021-8 ####[facility] HOSPITALWNCLIA [id number] [address] LABORATORYCLIA [id number] [place] [address] [place] Differential cell count method Nom (Bld) Manual Normal [facility] Comment on above: Order Comment: Speci men Type: BLOOD SPECIMENOrdering Facility: [facility] Address: [address] [place] [address] Performed By: #### 5 7021-8 ####[facility] HOSPITALWSCLIA [id number] [address] LABORATORYCLIA [id number] [place] [address] [place] Eosinophils (Bld) [#/Vol] 0.18 10*3/uL Normal <0.46 [facility] Comment on above: Order Comment: Speci men Type: BLOOD SPECIMENOrdering Facility: [facility] Address: [address] [place] [address] Performed By: #### 5 7021-8 ####[facility] [id number] [address] LABORATORYIA [id number] [place] [address] [place] Eosinophils/100 WBC (Bld) 1.0 % Normal [facility] Comment on above: Order Comment: Speci men Type: BLOOD SPECIMENOrdering Facility: [facility] Address: [address] [place] [address] Performed By: #### 5 7021-8 ####[facility] [id number] [address] LABORATORYCLIA [id number] [place] [address] [place] Erythrocyte distribution width (RBC) [Ratio] 15.8 % High 11.5-15.0 [facility] Comment on above: Order Comment: Speci men Type: BLOOD SPECIMENOrdering Facility: [facility] Address: [address] [place] [address] Performed By: #### 5 7021-8 ####[facility] MILLALEXWNCLIA [id number] [address] LABORATORYCLIA [id number] [place] [address] [place] Hematocrit (Bld) [Volume fraction] 38.3 % Normal 36.0-46.0 [facility] Comment on above: Order Comment: Speci men Type: BLOOD SPECIMENOrdering Facility: [facility] Address: [facility] [place] [address] Performed By: #### 5 7021-8 ####[facility] HOSPITALWTAYLORLIA [id number] [address] LABORATORYCLIA [id number] [place] [address] [place] Hemoglobin (Bld) [Mass/Vol] 12.7 g/dL Normal 11.5-15.5 [facility] Comment on above: Order Comment: Speci men Type: BLOOD SPECIMENOrdering Facility: [facility] Address: [facility] [place] [address] Performed By: #### 5 7021-8 ####[facility]ALEXWNCLIA [id number] [address] LABORATORYCLIA [id number] [place] [address] [place] Lymphocytes (Bld) [#/Vol] 14.11 10*3/uL High 1.00-4.00 [facility] Comment on above: Order Comment: Speci men Type: BLOOD SPECIMENOrdering Facility: [facility] Address: [address] [place] [address] Performed By: #### 5 7021-8 ####[facility] HOSPITALWTAYLORLIA [id number] [address] LABORATORYCLIA [id number] [place] [address] [place] Lymphocytes/100 WBC (Bld) 78.0 % Normal [facility] Comment on above: Order Comment: Speci men Type: BLOOD SPECIMENOrdering Facility: [facility] Address: [address] [place] [address] Performed By: #### 5 7021-8 ####[facility] HOSPITALLIA [id number] [address] LABORATORYCLIA [id number] [place] [address] [place] MCH (RBC) [Entitic mass] 32.2 pg Normal 26.0-34.0 [facility] Comment on above: Order Comment: Speci men Type: BLOOD SPECIMENOrdering Facility: [facility] Address: [address] [place] [address] Performed By: #### 5 7021-8 ####[facility] [id number] [address] LABORATORYCLIA [id number] [place] [address] [place] MCHC (RBC) [Mass/Vol] 33.2 g/dL Normal 30.5-36.0 [facility] Comment on above: Order Comment: Speci men Type: BLOOD SPECIMENOrdering Facility: [facility] Address: [address] [place] [address] Performed By: #### 5 7021-8 ####[facility] [id number] [address] LABORATORYCLIA [id number] [place] [address] [place] MCV (RBC) [Entitic vol] 97.0 fL Normal 80.0-100.0 [facility] Comment on above: Order Comment: Speci men Type: BLOOD SPECIMENOrdering Facility: [facility] Address: [address] [place] [address] Performed By: #### 5 7021-8 ####[facility]TOWNCLIA [id number] [address] LABORATORYCLIA [id number] [place] [address] [place] Monocytes (Bld) [#/Vol] 0.18 10*3/uL Normal <0.87 [facility] Comment on above: Order Comment: Speci men Type: BLOOD SPECIMENOrdering Facility: [facility] Address: [address] [place] [address] Performed By: #### 5 7021-8 ####[facility] PINELLASNCLIA [id number] [address] LABORATORYCLIA [id number] [place] [address] [place] Monocytes/100 WBC (Bld) 1.0 % Normal [facility] Comment on above: Order Comment: Speci men Type: BLOOD SPECIMENOrdering Facility: [facility] Address: [address] [place] [address] Performed By: #### 5 7021-8 ####[facility] PINELLASNCLIA [id number] [address] LABORATORYCLIA [id number] [place] [address] [place] Neutrophils (Bld) [#/Vol] 3.62 10*3/uL Normal 1.45-7.50 [facility] Comment on above: Order Comment: Speci men Type: BLOOD SPECIMENOrdering Facility: [facility] Address: [address] [place] [address] Performed By: #### 5 7021-8 ####[facility] MILLTOWNCLIA [id number] [address] LABORATORYCLIA [id number] [place] [address] [place] [facility] Neutrophils/100 WBC (Bld) 20.0 % Normal [facility] Comment on above: Order Comment: Speci men Type: BLOOD SPECIMENOrdering Facility: [facility] Address: [address] [place] [address] Performed By: #### 5 7021-8 ####[facility] HOSPITALWNCLIA [id number] [address] LABORATORYCLIA [id number] [place] [address] [place] Nucleated RBC (Bld) [#/Vol] 10*3/uL Normal <0.01 [facility] Comment on above: Order Comment: Speci men Type: BLOOD SPECIMENOrdering Facility: [facility] Address: [address] [place] [address] Performed By: #### 5 7021-8 ####[facility] [id number] [address] LABORATORYCLIA [id number] [place] [address] [place] Nucleated RBC/100 WBC (Bld) [Ratio] 0.0 /100 WBC Normal [facility] Comment on above: Order Comment: Speci men Type: BLOOD SPECIMENOrdering Facility: [facility] Address: [address] [place] [address] Performed By: #### 5 7021-8 ####[facility] PINELLASNCLIA [id number] [address] LABORATORYCLIA [id number] [place] [address] [place] Ovalocytes LM Ql (Bld) Few Normal Cl [facility] Comment on above: Order Comment: Speci men Type: BLOOD SPECIMENOrdering Facility: [facility] Address: [address] [place] [address] Performed By: #### 5 7021-8 ####[facility] HOSPITALWNCLIA [id number] [address] LABORATORYCLIA [id number] [place] [address] [place] Platelet mean volume (Bld) [Entitic vol] 10.4 fL Normal 9.0-12.7 [facility] Comment on above: Order Comment: Speci men Type: BLOOD SPECIMENOrdering Facility: [facility] Address: [address] [place] [address] Performed By: #### 5 7021-8 ####[facility] HOSPITALLIA [id number] [address] LABORATORYCLIA [id number] [place] [address] [place] Platelets (Bld) [#/Vol] 199 10*3/uL Normal 150-400 [facility] Comment on above: Order Comment: Speci men Type: BLOOD SPECIMENOrdering Facility: [facility] Address: [address] [place] [address] Performed By: #### 5 7021-8 ####[facility] HOSPITALWNCLIA [id number] [address] LABORATORYCLIA [id number] [place] [address] [place] Platelets Estimate (Bld) [#/Vol] Adequate Normal [facility] Comment on above: Order Comment: Speci men Type: BLOOD SPECIMENOrdering Facility: [facility] Address: [address] [place] [address] Performed By: #### 5 7021-8 ####[facility] MILLTOWNCLIA [id number] [address] LABORATORYCLIA [id number] [place] [address] [place] RBC (Bld) [#/Vol] 3.95 10*6/uL Normal 3.90-5.20 [facility] Comment on above: Order Comment: Speci men Type: BLOOD SPECIMENOrdering Facility: [facility] Address: [address] [place] [address] Performed By: #### 5 7021-8 ####[facility]LLASTAYLORLIA [id number] [address] LABORATORYCLIA [id number] [place] [address] [place] RED CELL MORPH Reviewed: see result s of individual morphologies Normal [facility] Comment on above: Order Comment: Speci men Type: BLOOD SPECIMENOrdering Facility: [facility] Address: [address] [place] [address] Performed By: #### 5 7021-8 ####[facility] PINELLASNCLIA [id number] [address] LABORATORYCLIA [id number] [place] [address] [place] WBC (Bld) [#/Vol] 18.09 10*3/uL High 3.70-11.00 [facility] Comment on above: Order Comment: Speci men Type: BLOOD SPECIMENOrdering Facility: [facility] Address: [address] [place] [address] Performed By: #### 5 7021-8 ####[facility] MILLWNCLIA [id number] [address] LABORATORYCLIA [id number] [address] [place] CNOVSPon 08-10-2024 CNOVSP Normal [facility] CNPNon 08-10-2024 CNPN Normal [facility] Cancer Ag125 SerPl-aCncon Cancer Ag 125 Qn 18 [arb'U]/mL Normal <39 [facility] Comment on above: Order Comment: Speci men Type: BLOOD SPECIMENOrdering Facility: [facility] Address: [address] [place] [address] Result Comment: CA 1 25 test methodology used is the Electrochemiluminescence Immunoassay by [employer]. Results obtained with different methods or kits cannot be used interchangeably.The reference interval is based on the 95th percentile of 240 apparently healthy premenopausal and postmenopausal women. At a cutoff value of 65 U/mL, the test sensitivity to distinguish ovarian carcinoma (FIGO stage I to IV) versus benign gynecological disease is 79%, with a specificity of 82%.Reference: Cancer Antigen 125 (CA 125 II) [package insert V 1.0 [place]]. [facility], [place], [place] (December 2014) Performed By: #### 1 0334-1 ####[facility] LABCLIA [id number] [place] [address] [place] Comprehensive metabolic 2000 panelon 08-10-2024 Albumin [Mass/Vol] 4.3 g/dL Normal 3.9-4.9 [facility] Comment on above: Order Comment: Speci men Type: BLOOD SPECIMENOrdering Facility: [facility] Address: [address] [place] [address] Performed By: #### 2 4323-8 ####[facility] PINELLASDEB [id number] [place] [address] [place] ALP [Catalytic activity/Vol] 84 U/L Normal 34-123 [facility] Comment on above: Order Comment: Speci men Type: BLOOD SPECIMENOrdering Facility: [facility] Address: [address] [place] [address] Performed By: #### 2 4323-8 ####[facility] P[facility]LLASDEB [id number] [place] [address] [place] ALT [Catalytic activity/Vol] 11 U/L Normal 7-38 [facility] Comment on above: Order Comment: Speci men Type: BLOOD SPECIMENOrdering Facility: [facility] Address: [address] [place] [address] Performed By: #### 2 4323-8 ####[facility] HOSPITALWTAYLORLIA [id number] [place] [address] [place] Anion gap [Moles/Vol] 11 mmol/L Normal 8-15 [facility] Comment on above: Order Comment: Speci men Type: BLOOD SPECIMENOrdering Facility: [facility] Address: [address] [place] [address] Performed By: #### 2 4323-8 ####[facility] PINELLASNCLIChar [id number] [place] [address] [place] AST [Catalytic activity/Vol] Normal [facility] Comment on above: Order Comment: Speci men Type: BLOOD SPECIMENOrdering Facility: [facility] Address: [address] [place] [address] Result Comment: Unab le to assay. Specimen significantly hemolyzed. Performed By: #### 2 4323-8 ####[facility] P[facility]LLASTAYLORLIA [id number] [place] [address] [place] Bilirubin [Mass/Vol] 0.6 mg/dL Normal 0.2-1.3 [facility] Comment on above: Order Comment: Speci men Type: BLOOD SPECIMENOrdering Facility: [facility] Address: [address] [place] [address] Performed By: #### 2 4323-8 ####[facility] HOSPITALWNCLIA [id number] [place] [address] [place] Calcium [Mass/Vol] 9.3 mg/dL Normal 8.5-10.2 [facility] Comment on above: Order Comment: Speci men Type: BLOOD SPECIMENOrdering Facility: [facility] Address: [address] [place] [address] Performed By: #### 2 4323-8 ####[facility] HOSPITALWNCLIA [id number] [place] [address] [place] Chloride [Moles/Vol] 99 mmol/L Normal 98-107 [facility] Comment on above: Order Comment: Speci men Type: BLOOD SPECIMENOrdering Facility: [facility] Address: [address] [place] [address] Performed By: #### 2 4323-8 ####[facility] P[facility]LLASNCLIA [id number] [place] [address] [place] CO2 [Moles/Vol] 22 mmol/L Normal 22-30 [facility] Comment on above: Order Comment: Speci men Type: BLOOD SPECIMENOrdering Facility: [facility] Address: [address] [place] [address] Performed By: #### 2 4323-8 ####[facility] HOSPITALLIA [id number] [place] [address] [place] Creatinine [Mass/Vol] 1.51 mg/dL High 0.58-0.96 [facility] Comment on above: Order Comment: Speci men Type: BLOOD SPECIMENOrdering Facility: [facility] Address: [address] [place] [address] Performed By: #### 2 4323-8 ####[facility] P[facility]LLASNCLIA [id number] [place] [address] [place] Creatinine and Glomerular filtration rate.predicted panel (S/P/Bld) 34 mL/min/1.73m??? Low >=60 [facility] Comment on above: Order Comment: Speci men Type: BLOOD SPECIMENOrdering Facility: [facility] Address: [address] [place] [address] Result Comment: Irina mated Glomerular Filtration Rate (eGFR) is calculated using the 2020 CKD-EPI creatinine equation. This equation utilizes serum creatinine, sex, and age as parameters. The creatinine assay has traceable calibration to isotope dilution-mass spectrometry. Refer to KDIGO guidelines for clinical interpretation. In patients with unstable renal function, e.g. those with acute kidney injury, the eGFR may not accurately reflect actual GFR. Performed By: #### 2 4323-8 ####[facility] [id number] [place] [address] [place] Glucose [Mass/Vol] 97 mg/dL Normal 74-99 [facility] Comment on above: Order Comment: Zeus stanton Type: BLOOD SPECIMENOrdering Facility: [facility] Address: [address] [place] [address] Result Comment: The [place] Diabetes Association (ADA) provides guidance for cutoff values for fasting glucose and random glucose. The ADA defines fasting as no caloric intake for at least 8 hours. Fasting plasma glucose results between 100 to 125 mg/dL indicate increased risk for diabetes (prediabetes).Fasting plasma glucose results greater than or equal to 126 mg/dL meet the criteria for diagnosis of diabetes. In the absence of unequivocal hyperglycemia, results should be confirmed by repeat testing. In a patient with classic symptoms of hyperglycemia or hyperglycemic crisis, random plasma glucose results greater than or equal to 200 mg/dL meet the criteria for diagnosis of diabetes.Reference: Standards of Medical Care in Diabetes 2016, [place] Diabetes Association. Diabetes Care. 2016.39(Suppl 1). Performed By: #### 2 4323-8 ####[facility] HOSPITALLIA [id number] [place] [address] [place] Potassium [Moles/Vol] 5.5 mmol/L High 3.7-5.1 [facility] Comment on above: Order Comment: Zeus stanton Type: BLOOD SPECIMENOrdering Facility: [facility] Address: [address] [place] [address] Performed By: #### 2 4323-8 ####[facility] HOSPITALWTAYLORLIA [id number] [place] [address] [place] Protein [Mass/Vol] 7.1 g/dL Normal 6.3-8.0 [facility] Comment on above: Order Comment: Speci men Type: BLOOD SPECIMENOrdering Facility: [facility] Address: [address] [place] [address] Performed By: #### 2 4323-8 ####[facility] HOSPITALEliasDEB [id number] [place] [address] [place] Sodium [Moles/Vol] 132 mmol/L Low 136-144 [facility] Comment on above: Order Comment: Speci men Type: BLOOD SPECIMENOrdering Facility: [facility] Address: [address] [place] [address] Performed By: #### 2 4323-8 ####[facility] P[facility]LLASTAYLORChar [id number] [place] [address] [place] Urea nitrogen [Mass/Vol] 40 mg/dL High 7-21 [facility] Comment on above: Order Comment: Speci men Type: BLOOD SPECIMENOrdering Facility: [facility] Address: [address] [place] [address] Performed By: #### 2 4323-8 ####[facility] PINELLASGRICELA [id number] [place] [address] [place] CBC W Auto Differential pane l (Bld)on 07-13-2024 Basophils (Bld) [#/Vol] 0.00 10*3/uL Normal <0.11 [facility] Comment on above: Order Comment: Speci men Type: BLOOD SPECIMENOrdering Facility: [facility] Address: [address] [place] [address] Performed By: #### 5 7021-8 ####[facility] P[facility]LLASDEB [id number] [address] LABORATORYCLIA [id number] [place] [address] [place] Basophils/100 WBC (Bld) 0.0 % Normal [facility] Comment on above: Order Comment: Speci men Type: BLOOD SPECIMENOrdering Facility: [facility] Address: [address] [place] [address] Performed By: #### 5 7021-8 ####[facility] MILLTOWNCLIA [id number] [address] LABORATORYCLIA [id number] [place] [address] [place] Differential cell count method Nom (Bld) Manual Normal [facility] Comment on above: Order Comment: Speci men Type: BLOOD SPECIMENOrdering Facility: [facility] Address: [address] [place] [address] Performed By: #### 5 7021-8 ####[facility] MILLTOWNCLIA [id number] [address] LABORATORYCLIA [id number] [place] [address] [place] Eosinophils (Bld) [#/Vol] 0.36 10*3/uL Normal <0.46 [facility] Comment on above: Order Comment: Speci men Type: BLOOD SPECIMENOrdering Facility: [facility] Address: [address] [place] [address] Performed By: #### 5 7021-8 ####[facility] MILLTOWNCLIA [id number] [address] LABORATORYCLIA [id number] [place] [address] [place] Eosinophils/100 WBC (Bld) 2.0 % Normal [facility] Comment on above: Order Comment: Speci men Type: BLOOD SPECIMENOrdering Facility: [facility] Address: [address] [place] [address] Performed By: #### 5 7021-8 ####[facility] ANDRESTOWNCLIA [id number] [address] LABORATORYCLIA [id number] [place] [address] [place] Erythrocyte distribution width (RBC) [Ratio] 13.9 % Normal 11.5-15.0 [facility] Comment on above: Order Comment: Speci men Type: BLOOD SPECIMENOrdering Facility: [facility] Address: [address] [place] [address] Performed By: #### 5 7021-8 ####[facility] P[facility]LLASTAYLORLIA [id number] [address] LABORATORYCLIA [id number] [place] [address] [place] [facility] Hematocrit (Bld) [Volume fraction] 37.4 % Normal 36.0-46.0 [facility] Comment on above: Order Comment: Speci men Type: BLOOD SPECIMENOrdering Facility: [facility] Address: [address] [place] [address] Performed By: #### 5 7021-8 ####[facility] MARIANNEWNCLIA [id number] [address] LABORATORYCLIA [id number] [place] [address] [place] Hemoglobin (Bld) [Mass/Vol] 12.4 g/dL Normal 11.5-15.5 [facility] Comment on above: Order Comment: Speci men Type: BLOOD SPECIMENOrdering Facility: [facility] Address: [address] [place] [address] Performed By: #### 5 7021-8 ####[facility] MILLTOWNCLIA [id number] [address] LABORATORYCLIA [id number] [place] [address] [place] Lymphocytes (Bld) [#/Vol] 13.77 10*3/uL High 1.00-4.00 [facility] Comment on above: Order Comment: Speci men Type: BLOOD SPECIMENOrdering Facility: [facility] Address: [address] [place] [address] Performed By: #### 5 7021-8 ####[facility] MILLTOWNCLIA [id number] [address] LABORATORYCLIA [id number] [place] [address] [place] Lymphocytes/100 WBC (Bld) 77.0 % Normal [facility] Comment on above: Order Comment: Speci men Type: BLOOD SPECIMENOrdering Facility: [facility] Address: [address] [place] [address] Performed By: #### 5 7021-8 ####[facility]TOWNCLIA [id number] [address] LABORATORYCLIA [id number] [place] [address] [place] MCH (RBC) [Entitic mass] 32.1 pg Normal 26.0-34.0 [facility] Comment on above: Order Comment: Speci men Type: BLOOD SPECIMENOrdering Facility: [facility] Address: [address] [place] [address] Performed By: #### 5 7021-8 ####[facility] MILLTOWNCLIA [id number] [address] LABORATORYCLIA [id number] [place] [address] [place] MCHC (RBC) [Mass/Vol] 33.2 g/dL Normal 30.5-36.0 [facility] Comment on above: Order Comment: Speci men Type: BLOOD SPECIMENOrdering Facility: [facility] Address: [address] [place] [address] Performed By: #### 5 7021-8 ####[facility] HOSPITALWNCLIA [id number] [address] LABORATORYCLIA [id number] [place] [address] [place] MCV (RBC) [Entitic vol] 96.9 fL Normal 80.0-100.0 [facility] Comment on above: Order Comment: Speci men Type: BLOOD SPECIMENOrdering Facility: [facility] Address: [address] [place] [address] Performed By: #### 5 7021-8 ####[facility] [id number] [address] LABORATORYIA [id number] [place] [address] [place] Monocytes (Bld) [#/Vol] 0.36 10*3/uL Normal <0.87 [facility] Comment on above: Order Comment: Speci men Type: BLOOD SPECIMENOrdering Facility: [facility] Address: [address] [place] [address] Performed By: #### 5 7021-8 ####[facility] P[facility]LLASNCLIA [id number] [address] LABORATORYCLIA [id number] [address] [place] Monocytes/100 WBC (Bld) 2.0 % Normal [facility] Comment on above: Order Comment: Speci men Type: BLOOD SPECIMENOrdering Facility: [facility] Address: [address] [place] [address] Performed By: #### 5 7021-8 ####[facility] MILLTOWNCLIA [id number] [address] LABORATORYCLIA [id number] [place] [address] [place] Neutrophils (Bld) [#/Vol] 3.40 10*3/uL Normal 1.45-7.50 [facility] Comment on above: Order Comment: Speci men Type: BLOOD SPECIMENOrdering Facility: [facility] Address: [address] [place] [address] Performed By: #### 5 7021-8 ####[facility] MILLTOWNCLIA [id number] [address] LABORATORYCLIA [id number] [place] [address] [place] Neutrophils/100 WBC (Bld) 19.0 % Normal [facility] Comment on above: Order Comment: Speci men Type: BLOOD SPECIMENOrdering Facility: [facility] Address: [address] [place] [address] Performed By: #### 5 7021-8 ####[facility] HOSPITALWNCLIA [id number] [address] LABORATORYCLIA [id number] [place] [address] [place] Nucleated RBC (Bld) [#/Vol] 10*3/uL Normal <0.01 [facility] Comment on above: Order Comment: Speci men Type: BLOOD SPECIMENOrdering Facility: [facility] Address: [address] [place] [address] Performed By: #### 5 7021-8 ####[facility] MILLTOWNCLIA [id number] [address] LABORATORYCLIA [id number] [place] [address] [place] Nucleated RBC/100 WBC (Bld) [Ratio] 0.0 /100 WBC Normal [facility] Comment on above: Order Comment: Speci men Type: BLOOD SPECIMENOrdering Facility: [facility] Address: [address] [place] [address] Performed By: #### 5 7021-8 ####[facility] MILLTOWNCLIA [id number] [address] LABORATORYCLIA [id number] [place] [address] [place] Ovalocytes LM Ql (Bld) Few Normal [facility] Comment on above: Order Comment: Speci men Type: BLOOD SPECIMENOrdering Facility: [facility] Address: [address] [place] [address] Performed By: #### 5 7021-8 ####[facility] [id number] [address] LABORATORYCLIA [id number] [place] [address] [place] Platelet mean volume (Bld) [Entitic vol] 9.8 fL Normal 9.0-12.7 [facility] Comment on above: Order Comment: Speci men Type: BLOOD SPECIMENOrdering Facility: [facility] Address: [address] [place] [address] Performed By: #### 5 7021-8 ####[facility] HOSPITALWNCLIA [id number] [address] LABORATORYCLIA [id number] [place] [address] [place] Platelets (Bld) [#/Vol] 180 10*3/uL Normal 150-400 [facility] Comment on above: Order Comment: Speci men Type: BLOOD SPECIMENOrdering Facility: [facility] Address: [address] [place], [place] [address] Performed By: #### 5 7021-8 ####[facility] MILLTOWNCLIA [id number] [address] LABORATORYCLIA [id number] [address] [place] Platelets Estimate (Bld) [#/Vol] Adequate Normal [facility] Comment on above: Order Comment: Speci men Type: BLOOD SPECIMENOrdering Facility: [facility] Address: [address] [place] [address] Performed By: #### 5 7021-8 ####[facility] P[facility]LLASNCLIA [id number] [address] LABORATORYCLIA [id number] [place] [address] [place] [facility] RBC (Bld) [#/Vol] 3.86 10*6/uL Low 3.90-5.20 [facility] Comment on above: Order Comment: Speci men Type: BLOOD SPECIMENOrdering Facility: [facility] Address: [address] [place] [address] Performed By: #### 5 7021-8 ####[facility] P[facility]LLASNCLIA [id number] [address] LABORATORYCLIA [id number] [address] RED CELL MORPH Reviewed: see result s of individual morphologies Normal [facility] Comment on above: Order Comment: Speci men Type: BLOOD SPECIMENOrdering Facility: [facility] Address: [address] [place] [address] Performed By: #### 5 7021-8 ####[facility] HOSPITALWNCLIA [id number] [address] LABORATORYCLIA [id number] [address] WBC (Bld) [#/Vol] 17.88 10*3/uL High 3.70-11.00 [facility] Comment on above: Order Comment: Speci men Type: BLOOD SPECIMENOrdering Facility: [facility] Address: [address] [place] [address] Performed By: #### 5 7021-8 ####[facility] [id number] [address] LABORATORYCLIA [id number] [address] Cancer Ag125 SerPl-aCncon Cancer Ag 125 Qn 20 [arb'U]/mL Normal <39 [facility] Comment on above: Order Comment: Zeus stanton Type: BLOOD SPECIMENOrdering Facility: [facility] Address: [address] [place] [address] Result Comment: CA 1 25 test methodology used is the Electrochemiluminescence Immunoassay by [employer]. Results obtained with different methods or kits cannot be used interchangeably.The reference interval is based on the 95th percentile of 240 apparently healthy premenopausal and postmenopausal women. At a cutoff value of 65 U/mL, the test sensitivity to distinguish ovarian carcinoma (FIGO stage I to IV) versus benign gynecological disease is 79%, with a specificity of 82%.Reference: Cancer Antigen 125 (CA 125 II) [package insert V 1.0 [place]]. [facility], [place], [place] (December 2014) Performed By: #### 1 0334-1 ####[facility] LABCLIA [id number] [address] [place] Comprehensive metabolic 2000 panelon 07-13-2024 Albumin [Mass/Vol] 4.2 g/dL Normal 3.9-4.9 [facility] Comment on above: Order Comment: Rubinai romy Type: BLOOD SPECIMENOrdering Facility: [facility] Address: [address] [place] [address] Performed By: #### 2 4323-8 ####[facility] MILLTOWNCLIA [id number] [place] [address] [place] ALP [Catalytic activity/Vol] 82 U/L Normal 34-123 [facility] Comment on above: Order Comment: Speci men Type: BLOOD SPECIMENOrdering Facility: [facility] Address: [address] [place] [address] Performed By: #### 2 4323-8 ####[facility] MILLTOWNCLIA [id number] [place] [address] [place] ALT [Catalytic activity/Vol] 11 U/L Normal 7-38 [facility] Comment on above: Order Comment: Speci men Type: BLOOD SPECIMENOrdering Facility: [facility] Address: [address] [place] [address] Performed By: #### 2 4323-8 ####[facility] HOSPITALLIA [id number] [place] [address] [place] Anion gap [Moles/Vol] 12 mmol/L Normal 8-15 [facility] Comment on above: Order Comment: Speci men Type: BLOOD SPECIMENOrdering Facility: [facility] Address: [address] [place] [address] Performed By: #### 2 4323-8 ####[facility] HOSPITALWNCLIA [id number] [place] [address] [place] AST [Catalytic activity/Vol] 28 U/L Normal 13-35 [facility] Comment on above: Order Comment: Speci men Type: BLOOD SPECIMENOrdering Facility: [facility] Address: [address] [place] [address] Performed By: #### 2 4323-8 ####[facility] HOSPITALWNCLIA [id number] [place] [address] [place] Bilirubin [Mass/Vol] 0.7 mg/dL Normal 0.2-1.3 [facility] Comment on above: Order Comment: Speci men Type: BLOOD SPECIMENOrdering Facility: [facility] Address: [address] [place] [address] Performed By: #### 2 4323-8 ####[facility] HOSPITALWNCLIA [id number] [place] [address] [place] Calcium [Mass/Vol] 9.6 mg/dL Normal 8.5-10.2 [facility] Comment on above: Order Comment: Speci men Type: BLOOD SPECIMENOrdering Facility: [facility] Address: [address] [place] [address] Performed By: #### 2 4323-8 ####[facility]LLASNCLIA [id number] [place] [address] [place] Chloride [Moles/Vol] 99 mmol/L Normal 98-107 [facility] Comment on above: Order Comment: Speci men Type: BLOOD SPECIMENOrdering Facility: [facility] Address: [address] [place], [place] [address] Performed By: #### 2 4323-8 ####[facility] PINELLASNCA [id number] [place] [address] [place] CO2 [Moles/Vol] 23 mmol/L Normal 22-30 [facility] Comment on above: Order Comment: Speci men Type: BLOOD SPECIMENOrdering Facility: [facility] Address: [address] [place] [address] Performed By: #### 2 4323-8 ####[facility] PINELLASNCA [id number] [place] [address] [place] Creatinine [Mass/Vol] 1.44 mg/dL High 0.58-0.96 [facility] Comment on above: Order Comment: Speci men Type: BLOOD SPECIMENOrdering Facility: [facility] Address: [address] [place] [address] Performed By: #### 2 4323-8 ####[facility] HOSPITALWNCLIA [id number] [place] [address] [place] Creatinine and Glomerular filtration rate.predicted panel (S/P/Bld) 36 mL/min/1.73m??? Low >=60 [facility] Comment on above: Order Comment: eZus stanton Type: BLOOD SPECIMENOrdering Facility: [facility] Address: [address] [place] [address] Result Comment: Irina mated Glomerular Filtration Rate (eGFR) is calculated using the 2020 CKD-EPI creatinine equation. This equation utilizes serum creatinine, sex, and age as parameters. The creatinine assay has traceable calibration to isotope dilution-mass spectrometry. Refer to KDIGO guidelines for clinical interpretation. In patients with unstable renal function, e.g. those with acute kidney injury, the eGFR may not accurately reflect actual GFR. Performed By: #### 2 4323-8 ####[facility] [id number] [place] [address] [place] Glucose [Mass/Vol] 100 mg/dL High 74-99 [facility] Comment on above: Order Comment: Zeus stanton Type: BLOOD SPECIMENOrdering Facility: [facility] Address: [address] [place] [address] Result Comment: The [place] Diabetes Association (ADA) provides guidance for cutoff values for fasting glucose and random glucose. The ADA defines fasting as no caloric intake for at least 8 hours. Fasting plasma glucose results between 100 to 125 mg/dL indicate increased risk for diabetes (prediabetes).Fasting plasma glucose results greater than or equal to 126 mg/dL meet the criteria for diagnosis of diabetes. In the absence of unequivocal hyperglycemia, results should be confirmed by repeat testing. In a patient with classic symptoms of hyperglycemia or hyperglycemic crisis, random plasma glucose results greater than or equal to 200 mg/dL meet the criteria for diagnosis of diabetes.Reference: Standards of Medical Care in Diabetes 2016, [place] Diabetes Association. Diabetes Care. 2016.39(Suppl 1). Performed By: #### 2 4323-8 ####[facility] HOSPITALLIA [id number] [place] [address] [place] Potassium [Moles/Vol] 4.5 mmol/L Normal 3.7-5.1 [facility] Comment on above: Order Comment: Speci men Type: BLOOD SPECIMENOrdering Facility: [facility] Address: [address] [place] [address] Performed By: #### 2 4323-8 ####[facility] MILLTOWNCLIA [id number] [place] [address] [place] Protein [Mass/Vol] 6.6 g/dL Normal 6.3-8.0 [facility] Comment on above: Order Comment: Speci men Type: BLOOD SPECIMENOrdering Facility: [facility] Address: [address] [place] [address] Performed By: #### 2 4323-8 ####[facility]ASNCLIA [id number] [place] [address] [place] Sodium [Moles/Vol] 134 mmol/L Low 136-144 [facility] Comment on above: Order Comment: Speci men Type: BLOOD SPECIMENOrdering Facility: [facility] Address: [address] [place] [address] Performed By: #### 2 4323-8 ####[facility] MILLALEXWNCLIA [id number] [place] [address] [place] Urea nitrogen [Mass/Vol] 29 mg/dL High 7-21 [facility] Comment on above: Order Comment: Speci men Type: BLOOD SPECIMENOrdering Facility: [facility] Address: [address] [place] [address] Performed By: #### 2 4323-8 ####[facility] MILLWNCLIA [id number] [place] [address] [place] MR/Balbina 07-09-2024 MR/BMS.IMB [facility] [address] [place] [address] OFFICE VISIT Date of Service: 07/09/24 MR#: [id number] Acct: [id number] Name: ASHLEY ALCANTAR Rep #: [id number] : 1940 Provider: Dr. Vern forman MD Age/Sex: 84/F Location: [facility] Status: Signed Intake Vital Signs 09/19/23 13:40 07/09/24 14:44 Height 4 ft 10 in 4 ft 10 in Weight: 124 lb 127 lb BMI 25.9 26.5 BP 146/74 H 124/68 H Blood Pressure Location Lt brachial Rt brachial Position Sitting Sitting Respiration 18 16 Pulse 100 56 L Pulse Source Monitor Monitor Temp 98.2 F 98.0 F Temp Source Temporal Temporal Pulse Oximetry (%) 98 96 Oxygen Delivery Method room air room air Intake Visit Reasons: Arm Redness, Nausea Chief Complaint: Arm Redness, Nausea Sink Cutter Required: No Accompanied by: Self Is patient in pain?: No Allergies cephalexin (From Keflex) Allergy (Severe, Verified 07/09/24 14:34) Other Medications ???Medication ???Instructions ???Recorded ???Confirmed ???Type ferrous sulfate 325 mg (65 mg 325 mg PO QODAY 01/29/22 07/09/24 History iron) tablet b12 PO 11/26/22 07/09/24 History Lactobacillus acidophilus 1 1,000 mmu cells PO DAILY 07/18/23 07/09/24 History billion cell capsule (Probiotic Gold Acidophilus) ascorbic acid (vitamin C) 500 mg 500 mg PO DAILY 07/18/23 07/09/24 History tablet cholecalciferol (vitamin D3) 25 25 mcg PO DAILY 07/18/23 07/09/24 History mcg (1,000 unit) tablet olaparib 100 mg tablet (Lynparza) 100 mg PO BID 07/18/23 07/09/24 H istory pyridoxine (vitamin B6) 100 mg 100 mg PO DAILY 07/18/23 07/09/24 History tablet apixaban 5 mg tablet (Eliquis) 5 mg PO BID #180 tabs 04/07/2401/23 Rx levothyroxine 75 mcg tablet 75 mcg PO DAILY #90 tabs 05/04/24 07/09/24 Rx cranberry extract 200 mg capsule 200 mg PO QDAY 07/09/24 07/09/24 H istory lisinopril 5 mg tablet 10 mg (2 x 5 mg) PO DAILY #90 tabs 07/09/24 07/09/24 Rx Have you fallen in the past year?: No PFSH Medical History (Updated 07/09/24 @ 16:[address] Vern Bernardo MD) Groin discomfort Cyst of right kidney Cyst of left kidney Fatty liver Recurrent right pleural effusion Pelvic mass Hypotension CLL (chronic lymphocytic leukemia) Anxiety Mixed hyperlipidemia Acute sinusitis CKD (chronic kidney disease) Contact with and (suspected) exposure to other viral communicable diseases Urinary tract infection with hematuria History of right and left heart catheterization (LHC) ( 09/29/21) Nonrheumatic aortic (valve) stenosis with insufficiency Tinnitus Elevated TSH Preop exam for internal medicine Aortic regurgitation Aortic stenosis Elevated blood pressure reading in office without diagnosis of hypertension Glaucoma Contusion of left hand including fingers Acute maxillary sinusitis, unspecified Hematuria UTI (urinary tract infection) Post herpetic neuralgia Strain of right trapezius muscle Incontinence Limb weakness Diarrhea Shoulder pain Surgical History H/O: hysterectomy History of transcatheter aortic valve replacement (TAVR) ( 12/14/21) History of bilateral cataract extraction Family History Other Colon cancer Diabetes Myocardial infarction Social History household members: other details: number of children: 4 current occupational 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 Smoking Status: Former smoker alcohol intake: never substance use type: does not use caffeine: Yes Type: tea Number of servings: 1 HPI HPI Chief Complaint: Arm Redness, Nausea Details: ASHLEY ALCANTAR, is a 84 F who presents to the office today for an acute care follow-up visit. She has hypertension and we discussed that issue in some detail. She will start on lisinopril 5 mg every day. She has been previously on 10 mg however she has been reluctant to take it every day and has been doing more of a catch-up routine if it is elevated she will take it. I have advised strongly against doing that and recommend she take it each morning same time a day. She would monitor blood pressures at home and report those in the next few weeks. The second issue which she really did present for was that she had a recent shingles vaccine, second dose. She believes the first 1 was in the left arm but not sure. This was done through pharmacy. With the second dose, she developed injection site redness, soreness, mild swelling, nausea, flulike feeling. She seemed to be relatively unaware that all of those are potential side effects with this very immunogenic vaccine. We reviewed that in detail. She now has improvement in the redness (more content not included)... Normal [facility] CBC W Auto Differential pane l (Bld)on 06-08-2024 Basophils (Bld) [#/Vol] 0.00 10*3/uL Normal <0.11 [facility] Comment on above: Order Comment: Speci men Type: BLOOD SPECIMENOrdering Facility: [facility] Address: [address] [place] [address] Performed By: #### 5 7021-8 ####[facility] [id number] [address] LABORATORYCLIA [id number] [place] [address] [place] Basophils/100 WBC (Bld) 0.0 % Normal [facility] Comment on above: Order Comment: Speci men Type: BLOOD SPECIMENOrdering Facility: [facility] Address: [address] [place] [address] Performed By: #### 5 7021-8 ####[facility] [id number] [address] LABORATORYCLIA [id number] [place] [address] [place] Differential cell count method Nom (Bld) Manual Normal [facility] Comment on above: Order Comment: Speci men Type: BLOOD SPECIMENOrdering Facility: [facility] Address: [address] [place] [address] Performed By: #### 5 7021-8 ####[facility] ANDRESTOWNCLIA [id number] [address] LABORATORYCLIA [id number] [place] [address] [place] Eosinophils (Bld) [#/Vol] 0.32 10*3/uL Normal <0.46 [facility] Comment on above: Order Comment: Speci men Type: BLOOD SPECIMENOrdering Facility: [facility] Address: [address] [place] [address] Performed By: #### 5 7021-8 ####[facility] MARIANNEWNCLIA [id number] [address] LABORATORYCLIA [id number] [place] [address] [place] Eosinophils/100 WBC (Bld) 2.0 % Normal [facility] Comment on above: Order Comment: Speci men Type: BLOOD SPECIMENOrdering Facility: [facility] Address: [address] [place] [address] Performed By: #### 5 7021-8 ####[facility] ANDRESTOWNCLIA [id number] [address] LABORATORYCLIA [id number] [place] [address] [place] Erythrocyte distribution width (RBC) [Ratio] 14.2 % Normal 11.5-15.0 [facility] Comment on above: Order Comment: Speci men Type: BLOOD SPECIMENOrdering Facility: [facility] Address: [address] [place] [address] Performed By: #### 5 7021-8 ####[facility] MILLTOWNCLIA [id number] [address] LABORATORYCLIA [id number] [place] [address] [place] Hematocrit (Bld) [Volume fraction] 38.2 % Normal 36.0-46.0 [facility] Comment on above: Order Comment: Speci men Type: BLOOD SPECIMENOrdering Facility: [facility] Address: [address] [place] [address] Performed By: #### 5 7021-8 ####[facility] [id number] [address] LABORATORYIA [id number] [place] [address] [place] Hemoglobin (Bld) [Mass/Vol] 12.6 g/dL Normal 11.5-15.5 [facility] Comment on above: Order Comment: Speci men Type: BLOOD SPECIMENOrdering Facility: [facility] Address: [facility] [place] [address] Performed By: #### 5 7021-8 ####[facility] [id number] [address] LABORATORYCLIA [id number] [place] [address] [place] Lymphocytes (Bld) [#/Vol] 12.49 10*3/uL High 1.00-4.00 [facility] Comment on above: Order Comment: Speci men Type: BLOOD SPECIMENOrdering Facility: [facility] Address: [facility] [place] [address] Performed By: #### 5 7021-8 ####[facility]LLASNCLIA [id number] [address] LABORATORYIA [id number] [place] [address] [place] [facility] Lymphocytes/100 WBC (Bld) 79.0 % Normal [facility] Comment on above: Order Comment: Speci men Type: BLOOD SPECIMENOrdering Facility: [facility] Address: [address] [place] [address] Performed By: #### 5 7021-8 ####[facility]OS[facility]ITALLIA [id number] [address] LABORATORYCLIA [id number] [place] [address] [place] MCH (RBC) [Entitic mass] 32.6 pg Normal 26.0-34.0 [facility] Comment on above: Order Comment: Speci men Type: BLOOD SPECIMENOrdering Facility: [facility] Address: [address] [place] [address] Performed By: #### 5 7021-8 ####[facility] [id number] [address] LABORATORYCLIA [id number] [place] [address] [place] MCHC (RBC) [Mass/Vol] 33.0 g/dL Normal 30.5-36.0 [facility] Comment on above: Order Comment: Speci men Type: BLOOD SPECIMENOrdering Facility: [facility] Address: [address] [place] [address] Performed By: #### 5 7021-8 ####[facility] [id number] [address] LABORATORYCLIA [id number] [address] STATES OF [facility] MCV (RBC) [Entitic vol] 99.0 fL Normal 80.0-100.0 [facility] Comment on above: Order Comment: Speci men Type: BLOOD SPECIMENOrdering Facility: [facility] Address: [address] [place] [address] Performed By: #### 5 7021-8 ####[facility] MILLTOWNCLIA [id number] [address] LABORATORYCLIA [id number] [place] [address] [place] Monocytes (Bld) [#/Vol] 0.47 10*3/uL Normal <0.87 [facility] Comment on above: Order Comment: Speci men Type: BLOOD SPECIMENOrdering Facility: [facility] Address: [facility] [place] [address] Performed By: #### 5 7021-8 ####[facility] HOSPITALWNCLIA [id number] [address] LABORATORYCLIA [id number] [place] [address] [place] Monocytes/100 WBC (Bld) 3.0 % Normal [facility] Comment on above: Order Comment: Speci men Type: BLOOD SPECIMENOrdering Facility: [facility] Address: [facility] [place] [address] Performed By: #### 5 7021-8 ####[facility]OS[facility]ITALWNCLIA [id number] [address] LABORATORYCLIA [id number] [place] [address] [place] Neutrophils (Bld) [#/Vol] 2.53 10*3/uL Normal 1.45-7.50 [facility] Comment on above: Order Comment: Speci men Type: BLOOD SPECIMENOrdering Facility: [facility] Address: [address] [place] [place] [address] Performed By: #### 5 7021-8 ####[facility] MILLTOWNCLIA [id number] [address] LABORATORYCLIA [id number] [place] [address] [place] Neutrophils/100 WBC (Bld) 16.0 % Normal [facility] Comment on above: Order Comment: Speci men Type: BLOOD SPECIMENOrdering Facility: [facility] Address: [address] [place] [address] Performed By: #### 5 7021-8 ####[facility] MILLWNCLIA [id number] [address] LABORATORYCLIA [id number] [place] [address] [place] Nucleated RBC (Bld) [#/Vol] 10*3/uL Normal <0.01 [facility] Comment on above: Order Comment: Speci men Type: BLOOD SPECIMENOrdering Facility: [facility] Address: [address] [place] [address] Performed By: #### 5 7021-8 ####[facility]OS[facility]ITALWNCLIA [id number] [address] LABORATORYCLIA [id number] [place] [address] [place] Nucleated RBC/100 WBC (Bld) [Ratio] 0.0 /100 WBC Normal [facility] Comment on above: Order Comment: Speci men Type: BLOOD SPECIMENOrdering Facility: [facility] Address: [address] [place] [address] Performed By: #### 5 7021-8 ####[facility]OS[facility]ITALWNCLIA [id number] [address] LABORATORYCLIA [id number] [place] [address] [place] Ovalocytes LM Ql (Bld) Few Normal [facility] Comment on above: Order Comment: Speci men Type: BLOOD SPECIMENOrdering Facility: [facility] Address: [address] [place] [address] Performed By: #### 5 7021-8 ####[facility] MILLTOWNCLIA [id number] [address] LABORATORYCLIA [id number] [place] [address] [place] Platelet mean volume (Bld) [Entitic vol] 10.1 fL Normal 9.0-12.7 [facility] Comment on above: Order Comment: Speci men Type: BLOOD SPECIMENOrdering Facility: [facility] Address: [address] [place] [address] Performed By: #### 5 7021-8 ####[facility]LL[facility]NCLIA [id number] [address] LABORATORYCLIA [id number] [place] [address] [place] Platelets (Bld) [#/Vol] 143 10*3/uL Low 150-400 [facility] Comment on above: Order Comment: Speci men Type: BLOOD SPECIMENOrdering Facility: [facility] Address: [address] [place] [address] Performed By: #### 5 7021-8 ####[facility] MARIANNEWNCLIA [id number] [address] LABORATORYCLIA [id number] [place] [address] [place] Platelets Estimate (Bld) [#/Vol] Decreased Normal [facility] Comment on above: Order Comment: Speci men Type: BLOOD SPECIMENOrdering Facility: [facility] Address: [address] [place] [address] Performed By: #### 5 7021-8 ####[facility] MILLTOWNCLIA [id number] [address] [facility] LABORATORYCLIA [id number] [place] [address] [place] RBC (Bld) [#/Vol] 3.86 10*6/uL Low 3.90-5.20 [facility] Comment on above: Order Comment: Speci men Type: BLOOD SPECIMENOrdering Facility: [facility] Address: [address] [place] [address] Performed By: #### 5 7021-8 ####[facility]ITALLIA [id number] [address] LABORATORYIA [id number] [place] [address] [place] RED CELL MORPH Reviewed: see result s of individual morphologies Normal [facility] Comment on above: Order Comment: Speci men Type: BLOOD SPECIMENOrdering Facility: [facility] Address: [address] [place] [address] Performed By: #### 5 7021-8 ####[facility] [id number] [address] LABORATORYCLIA [id number] [place] [address] [place] WBC (Bld) [#/Vol] 15.81 10*3/uL High 3.70-11.00 [facility] Comment on above: Order Comment: Speci men Type: BLOOD SPECIMENOrdering Facility: [facility] Address: [address] [place] [address] Performed By: #### 5 7021-8 ####[facility] [id number] [address] LABORATORYCLIA [id number] [place] [address] [place] Cancer Ag125 SerPl-aCncon Cancer Ag 125 Qn 19 [arb'U]/mL Normal <39 [facility] Comment on above: Order Comment: Speci men Type: BLOOD SPECIMENOrdering Facility: [facility] Address: [address] [place] [address] Result Comment: CA 1 25 test methodology used is the Electrochemiluminescence Immunoassay by [employer]. Results obtained with different methods or kits cannot be used interchangeably.The reference interval is based on the 95th percentile of 240 apparently healthy premenopausal and postmenopausal women. At a cutoff value of 65 U/mL, the test sensitivity to distinguish ovarian carcinoma (FIGO stage I to IV) versus benign gynecological disease is 79%, with a specificity of 82%.Reference: Cancer Antigen 125 (CA 125 II) [package insert V 1.0 [place]]. [employer], [place], [place] (December 2014) Performed By: #### 1 0334-1 ####[facility] LABCLIA [id number] [place] [address] [place] Comprehensive metabolic 2000 panelon 06-08-2024 Albumin [Mass/Vol] 4.3 g/dL Normal 3.9-4.9 [facility] Comment on above: Order Comment: Speci men Type: BLOOD SPECIMENOrdering Facility: [facility] Address: [address] [place] [address] Performed By: #### 2 4323-8 ####[facility] [id number] [place] [address] [place] ALP [Catalytic activity/Vol] 85 U/L Normal 34-123 [facility] Comment on above: Order Comment: Speci men Type: BLOOD SPECIMENOrdering Facility: [facility] Address: [address] [place] [address] Performed By: #### 2 4323-8 ####[facility] [id number] [place] [address] [place] ALT [Catalytic activity/Vol] 9 U/L Normal 7-38 [facility] Comment on above: Order Comment: Speci men Type: BLOOD SPECIMENOrdering Facility: [facility] Address: [address] [place] [address] Performed By: #### 2 4323-8 ####[facility] MILLTOWNCLIA [id number] [place] [address] [place] Anion gap [Moles/Vol] 10 mmol/L Normal 8-15 [facility] Comment on above: Order Comment: Speci men Type: BLOOD SPECIMENOrdering Facility: [facility] Address: [address] [place] [address] Performed By: #### 2 4323-8 ####[facility] MILLTOWNCLIA [id number] [place] [address] [place] AST [Catalytic activity/Vol] 18 U/L Normal 13-35 [facility] Comment on above: Order Comment: Speci men Type: BLOOD SPECIMENOrdering Facility: [facility] Address: [address] [place] [address] Performed By: #### 2 4323-8 ####[facility] MILLWNCLIA [id number] [place] [address] [place] Bilirubin [Mass/Vol] 0.5 mg/dL Normal 0.2-1.3 [facility] Comment on above: Order Comment: Speci men Type: BLOOD SPECIMENOrdering Facility: [facility] Address: [address] [place] [address] Performed By: #### 2 4323-8 ####[facility] MILLTOWNCLIA [id number] [place] [address] [place] Calcium [Mass/Vol] 9.3 mg/dL Normal 8.5-10.2 [facility] Comment on above: Order Comment: Speci men Type: BLOOD SPECIMENOrdering Facility: [facility] Address: [address] [place] [address] Performed By: #### 2 4323-8 ####[facility] MILLTOWNCLIA [id number] [place] [address] [place] Chloride [Moles/Vol] 103 mmol/L Normal 98-107 [facility] Comment on above: Order Comment: Speci men Type: BLOOD SPECIMENOrdering Facility: [facility] Address: [address] [place] [address] Performed By: #### 2 4323-8 ####[facility] [id number] [place] [address] [place] CO2 [Moles/Vol] 25 mmol/L Normal 22-30 [facility] Comment on above: Order Comment: Speci men Type: BLOOD SPECIMENOrdering Facility: [facility] Address: [address] [place] [address] Performed By: #### 2 4323-8 ####[facility] [id number] [place] [address] [place] Creatinine [Mass/Vol] 1.23 mg/dL High 0.58-0.96 [facility] Comment on above: Order Comment: Speci men Type: BLOOD SPECIMENOrdering Facility: [facility] Address: [address] [place] [address] Performed By: #### 2 4323-8 ####[facility] [id number] [place] [address] [facility] Creatinine and Glomerular filtration rate.predicted panel (S/P/Bld) 43 mL/min/1.73m??? Low >=60 [facility] Comment on above: Order Comment: Speci men Type: BLOOD SPECIMENOrdering Facility: [facility] Address: [address] [place] [address] Result Comment: Irina mated Glomerular Filtration Rate (eGFR) is calculated using the 2020 CKD-EPI creatinine equation. This equation utilizes serum creatinine, sex, and age as parameters. The creatinine assay has traceable calibration to isotope dilution-mass spectrometry. Refer to KDIGO guidelines for clinical interpretation. In patients with unstable renal function, e.g. those with acute kidney injury, the eGFR may not accurately reflect actual GFR. Performed By: #### 2 4323-8 ####[facility]CL[facility] [id number] [place] [address] [place] Glucose [Mass/Vol] 92 mg/dL Normal 74-99 [facility] Comment on above: Order Comment: Zeus stanton Type: BLOOD SPECIMENOrdering Facility: [facility] Address: [address] [place], [place] [address] Result Comment: The [place] Diabetes Association (ADA) provides guidance for cutoff values for fasting glucose and random glucose. The ADA defines fasting as no caloric intake for at least 8 hours. Fasting plasma glucose results between 100 to 125 mg/dL indicate increased risk for diabetes (prediabetes).Fasting plasma glucose results greater than or equal to 126 mg/dL meet the criteria for diagnosis of diabetes. In the absence of unequivocal hyperglycemia, results should be confirmed by repeat testing. In a patient with classic symptoms of hyperglycemia or hyperglycemic crisis, random plasma glucose results greater than or equal to 200 mg/dL meet the criteria for diagnosis of diabetes.Reference: Standards of Medical Care in Diabetes 2016, [place] Diabetes Association. Diabetes Care. 2016.39(Suppl 1). Performed By: #### 2 4323-8 ####[facility]LLASNCA [id number] [place] [address] [place] Potassium [Moles/Vol] 4.7 mmol/L Normal 3.7-5.1 [facility] Comment on above: Order Comment: Zeus stanton Type: BLOOD SPECIMENOrdering Facility: [facility] Address: [address] [place] [address] Performed By: #### 2 4323-8 ####[facility] [id number] [place] [address] [place] Protein [Mass/Vol] 6.6 g/dL Normal 6.3-8.0 [facility] Comment on above: Order Comment: Zeus stanton Type: BLOOD SPECIMENOrdering Facility: [facility] Address: [address] [place] [address] Performed By: #### 2 4323-8 ####[facility]LLASNCLIA [id number] [place] [address] [place] Sodium [Moles/Vol] 138 mmol/L Normal 136-144 [facility] Comment on above: Order Comment: Speci men Type: BLOOD SPECIMENOrdering Facility: [facility] Address: [address] [place] [address] Performed By: #### 2 4323-8 ####[facility]NCLI [id number] [place] [address] [place] Urea nitrogen [Mass/Vol] 23 mg/dL High 7-21 [facility] Comment on above: Order Comment: Speci men Type: BLOOD SPECIMENOrdering Facility: [facility] Address: [address] [place] [address] Performed By: #### 2 4323-8 ####[facility] H[facility]ITALLIA [id number] [place] [address] [place] CNPNon 05-18-2024 CNPN Normal [facility] Prot/Creat Uron 05-14-2024 Protein/Creatinine (U) [Mass ratio] 0.12 mg/mg Normal <0.15 [facility] Comment on above: Order Comment: Speci men Type: URINE SPECIMENOrdering Facility: [facility] Address: [address] [place] [address] Result Comment: Adul t Proteinuria Categories:<0.15 mg/mg is considered normal to mildly increased0.15 - 0.50 mg/mg is considered moderately increased>0.50 mg/mg is considered severely increasedKDIGO. (2013). KDIGO 2012 Clinical Practice Guideline for the Evaluation and Management of Chronic Kidney Disease. Official Journal of the International Society of Nephrology, 3(1), 1-150. Performed By: #### 2 890-2 ####[facility] LABORATORYCLIA [id number] [place] [address] [place] Protein/Creatinine (U) [Mass ratio]on 05-14-2024 Creatinine (U) [Mass/Vol] 40.5 mg/dL Low 42.2-237.9 [facility] Comment on above: Order Comment: Speci men Type: URINE SPECIMENOrdering Facility: [facility] Address: [address] [place] [address] Performed By: #### 2 890-2 ####[facility] LABORATORYIA [id number] [place] [id number] [place] Protein (U) [Mass/Vol] 5 mg/dL Normal 0-20 Cl [facility] Comment on above: Order Comment: Speci men Type: URINE SPECIMENOrdering Facility: [facility] Address: [address] [place] [address] Performed By: #### 2 890-2 ####[facility]ITAL[facility] [id number] [place] [id number] [place] US KIDNEY/BLADDERon 05-14-19 25 US KIDNEY/BLADDER Normal [facility] Urinalysis complete panel (U )on 05-14-2024 Bacteria LM.HPF (Urine sed) [#/Area] Negative Normal Negative [facility] Comment on above: Order Comment: Speci men Type: URINE SPECIMENOrdering Facility: [facility] Address: [address] [place] [address] Performed By: #### 2 4356-8 ####[facility] LABCLIA [id number] [place] [address] [place] Bilirubin Ql (U) Negative Normal Negative [facility] Comment on above: Order Comment: Speci men Type: URINE SPECIMENOrdering Facility: [facility] Address: [address] [place] [address] Performed By: #### 2 4356-8 ####[facility] LABCLIA [id number] [place] [address] [place] Clarity (Unsp spec) Clear Normal Clear [facility] Comment on above: Order Comment: Speci men Type: URINE SPECIMENOrdering Facility: [facility] Address: [address] [place] [address] Performed By: #### 2 4356-8 ####[facility] LABCLIA [id number] [place] [address] [place] Color (U) Yellow Normal Yellow [facility] Comment on above: Order Comment: Speci men Type: URINE SPECIMENOrdering Facility: [facility] Address: [address] [place] [address] Performed By: #### 2 4356-8 ####[facility] LABCLIA [id number] [place] [address] [place] Epithelial cells LM.HPF (Urine sed) [#/Area] None Seen Normal [facility] Comment on above: Order Comment: Speci men Type: URINE SPECIMENOrdering Facility: [facility] Address: [address] [place] [address] Performed By: #### 2 4356-8 ####[facility] LABCLIA [id number] [place] [address] [place] Glucose Test strip (U) [Mass/Vol] Negative Normal Negative [facility] Comment on above: Order Comment: Speci men Type: URINE SPECIMENOrdering Facility: [facility] Address: [address] [place] [address] Performed By: #### 2 4356-8 ####[facility] LABCLIA [id number] [place] [address] [place] Hemoglobin Ql (U) Negative Normal Negative [facility] Comment on above: Order Comment: Speci men Type: URINE SPECIMENOrdering Facility: [facility] Address: [address] [place] [address] Performed By: #### 2 4356-8 ####[facility] LABCLIA [id number] [address] [address] [id number] [address] [place] Hyaline casts (Urine sed) [#/Area] 0 /[LPF] Normal 0 /LPF [facility] Comment on above: Order Comment: Speci men Type: URINE SPECIMENOrdering Facility: [facility] Address: [address] [place] [address] Performed By: #### 2 4356-8 ####[facility] LABCLIA [id number] [place] [address] [place] Ketones Ql (U) Negative Normal Negative [facility] Comment on above: Order Comment: Speci men Type: URINE SPECIMENOrdering Facility: [facility] Address: [address] [place] [address] Performed By: #### 2 4356-8 ####[facility] LABCLIA [id number] [place] [address] [place] Leukocyte esterase Test strip Ql (U) Negative Normal Negative [facility] Comment on above: Order Comment: Speci men Type: URINE SPECIMENOrdering Facility: [facility] Address: [address] [place] [address] Performed By: #### 2 4356-8 ####[facility] LABCLIA [id number] [place] [address] [place] Nitrite Ql (U) Negative Normal Negative [facility] Comment on above: Order Comment: Speci men Type: URINE SPECIMENOrdering Facility: [facility] Address: [address] [place] [address] Performed By: #### 2 4356-8 ####[facility] LABCLIA [id number] [place] [address] [place] pH (U) 6.0 [pH] Normal <8.5 [facility] Comment on above: Order Comment: Speci men Type: URINE SPECIMENOrdering Facility: [facility] Address: [address] [place] [address] Performed By: #### 2 4356-8 ####[facility] LABCLIA [id number] [place] [address] [place] Protein (U) [Mass/Vol] Negative Normal Negative [facility] Comment on above: Order Comment: Speci men Type: URINE SPECIMENOrdering Facility: [facility] Address: [address] [place] [address] Performed By: #### 2 4356-8 ####[facility] LABIA [id number] [place] [address] [place] RBC LM.HPF (Urine sed) [#/Area] 0-2 /HPF Normal 0-2 /HPF [facility] Comment on above: Order Comment: Speci men Type: URINE SPECIMENOrdering Facility: [facility] Address: [address] [place] [address] Performed By: #### 2 4356-8 ####[facility] LABIA [id number] [place] [address] [place] Specific gravity (U) [Rel density] 1.008 Normal 1.005-1.030 [facility] Comment on above: Order Comment: Speci men Type: URINE SPECIMENOrdering Facility: [facility] Address: [address] [place] [address] Performed By: #### 2 4356-8 ####[facility] LABIA [id number] [place] [address] [place] Urobilinogen Ql (U) 0.2 EU/dL Normal 0.2-1.0 EU/dL [facility] Comment on above: Order Comment: Speci men Type: URINE SPECIMENOrdering Facility: [facility] Address: [address] [place] [address] Performed By: #### 2 4356-8 ####[facility] LABIA [id number] [place] [address] [place] WBC LM.HPF (Urine sed) [#/Area] 0-5 /HPF Normal 0-5 /HPF [facility] Comment on above: Order Comment: Speci men Type: URINE SPECIMENOrdering Facility: [facility] Address: [address] [place] [address] Performed By: #### 2 4356-8 ####[facility] LABCLIA [id number] [id number] [place], [place] [id number] [place] CNPNon 05-12-2024 CNPN Normal [facility] CBC W Auto Differential pane l (Bld)on 05-11-2024 Basophils (Bld) [#/Vol] 0.00 10*3/uL Normal <0.11 [facility] Comment on above: Order Comment: Speci men Type: BLOOD SPECIMENOrdering Facility: [facility] Address: [address] [place] [address] Performed By: #### 5 7021-8 ####[facility] MILLTOWTAYLORLIA [id number] [address] LABORATORYCLIA [id number] [place] [address] [place] Basophils/100 WBC (Bld) 0.0 % Normal [facility] Comment on above: Order Comment: Speci men Type: BLOOD SPECIMENOrdering Facility: [facility] Address: [address] [place] [address] Performed By: #### 5 7021-8 ####[facility] MILLTOWNCLIA [id number] [address] LABORATORYCLIA [id number] [place] [address] [place] Differential cell count method Nom (Bld) Manual Normal [facility] Comment on above: Order Comment: Speci men Type: BLOOD SPECIMENOrdering Facility: [facility] Address: [address] [place] [address] Performed By: #### 5 7021-8 ####[facility] [id number] [address] LABORATORYCLIA [id number] [place] [address] [place] Eosinophils (Bld) [#/Vol] 0.00 10*3/uL Normal <0.46 [facility] Comment on above: Order Comment: Speci men Type: BLOOD SPECIMENOrdering Facility: [facility] Address: [address] [place] [address] Performed By: #### 5 7021-8 ####[facility] [id number] [address] LABORATORYCLIA [id number] [place] [address] [place] Eosinophils/100 WBC (Bld) 0.0 % Normal [facility] Comment on above: Order Comment: Speci men Type: BLOOD SPECIMENOrdering Facility: [facility] Address: [address] [place] [address] Performed By: #### 5 7021-8 ####[facility] [id number] [address] LABORATORYCLIA [id number] [place] [address] [place] Erythrocyte distribution width (RBC) [Ratio] 14.5 % Normal 11.5-15.0 [facility] Comment on above: Order Comment: Speci men Type: BLOOD SPECIMENOrdering Facility: [facility] Address: [address] [place] [address] Performed By: #### 5 7021-8 ####[facility]ALLIA [id number] [address] LABORATORYCLIA [id number] [place] [address] [place] Hematocrit (Bld) [Volume fraction] 38.6 % Normal 36.0-46.0 [facility] Comment on above: Order Comment: Speci men Type: BLOOD SPECIMENOrdering Facility: [facility] Address: [address] [place] [address] Performed By: #### 5 7021-8 ####[facility] [id number] [address] LABORATORYCLIA [id number] [place] [address] [place] Hemoglobin (Bld) [Mass/Vol] 12.6 g/dL Normal 11.5-15.5 [facility] Comment on above: Order Comment: Speci men Type: BLOOD SPECIMENOrdering Facility: [facility] Address: [address] [place] [address] Performed By: #### 5 7021-8 ####[facility] [id number] [address] LABORATORYCLIA [id number] [place] [address] [place] Lymphocytes (Bld) [#/Vol] 13.80 10*3/uL High 1.00-4.00 [facility] Comment on above: Order Comment: Speci men Type: BLOOD SPECIMENOrdering Facility: [facility] Address: [address] [place] [address] Performed By: #### 5 7021-8 ####[facility] HOSPITALWNCLIA [id number] [address] LABORATORYCLIA [id number] [place] [address] [place] Lymphocytes/100 WBC (Bld) 76.0 % Normal [facility] Comment on above: Order Comment: Speci men Type: BLOOD SPECIMENOrdering Facility: [facility] Address: [address] [place] [address] Performed By: #### 5 7021-8 ####[facility] MILLTOWNCLIA [id number] [address] LABORATORYCLIA [id number] [address] MCH (RBC) [Entitic mass] 32.1 pg Normal 26.0-34.0 [facility] Comment on above: Order Comment: Speci men Type: BLOOD SPECIMENOrdering Facility: [facility] Address: [address] [place] [address] Performed By: #### 5 7021-8 ####[facility] [id number] [address] LABORATORYCLIA [id number] [address] [facility] MCHC (RBC) [Mass/Vol] 32.6 g/dL Normal 30.5-36.0 [facility] Comment on above: Order Comment: Speci men Type: BLOOD SPECIMENOrdering Facility: [facility] Address: [address] [place] [address] Performed By: #### 5 7021-8 ####[facility]LLASNCLIA [id number] [address] LABORATORYCLIA [id number] [address] MCV (RBC) [Entitic vol] 98.2 fL Normal 80.0-100.0 [facility] Comment on above: Order Comment: Speci men Type: BLOOD SPECIMENOrdering Facility: [facility] Address: [address] [place] [address] Performed By: #### 5 7021-8 ####[facility]NCLIA [id number] [address] LABORATORYCLIA [id number] [place] [address] [place] Monocytes (Bld) [#/Vol] 0.91 10*3/uL High <0.87 [facility] Comment on above: Order Comment: Speci men Type: BLOOD SPECIMENOrdering Facility: [facility] Address: [address] [place] [address] Performed By: #### 5 7021-8 ####[facility] HOSPITALWNCLIA [id number] [address] LABORATORYCLIA [id number] [place] [address] [place] Monocytes/100 WBC (Bld) 5.0 % Normal C [facility] Comment on above: Order Comment: Speci men Type: BLOOD SPECIMENOrdering Facility: [facility] Address: [address] [place] [address] Performed By: #### 5 7021-8 ####[facility] [id number] [address] LABORATORYCLIA [id number] [place] [address] [place] Neutrophils (Bld) [#/Vol] 3.45 10*3/uL Normal 1.45-7.50 [facility] Comment on above: Order Comment: Speci men Type: BLOOD SPECIMENOrdering Facility: [facility] Address: [address] [place] [address] Performed By: #### 5 7021-8 ####[facility] HOS[facility]ITALWNCLIA [id number] [address] LABORATORYCLIA [id number] [place] [address] [place] Neutrophils/100 WBC (Bld) 19.0 % Normal [facility] Comment on above: Order Comment: Speci men Type: BLOOD SPECIMENOrdering Facility: [facility] Address: [address] [place] [address] Result Comment: Diff erential done with albumin Performed By: #### 5 7021-8 ####[facility] MARIANNEWNCLIA [id number] [address] LABORATORYCLIA [id number] [place] [address] [place] Nucleated RBC (Bld) [#/Vol] 10*3/uL Normal <0.01 [facility] Comment on above: Order Comment: Speci men Type: BLOOD SPECIMENOrdering Facility: [facility] Address: [address] [place] [address] Performed By: #### 5 7021-8 ####[facility] HOSPITALWNCLIA [id number] [address] LABORATORYCLIA [id number] [place] [address] [place] Nucleated RBC/100 WBC (Bld) [Ratio] 0.0 /100 WBC Normal [facility] Comment on above: Order Comment: Speci men Type: BLOOD SPECIMENOrdering Facility: [facility] Address: [address] [place] [address] Performed By: #### 5 7021-8 ####[facility]ALL[facility] [id number] [address] LABORATORYCLIA [id number] [place] [address] [place] Ovalocytes LM Ql (Bld) Few Normal [facility] Comment on above: Order Comment: Speci men Type: BLOOD SPECIMENOrdering Facility: [facility] Address: [address] [place] [address] Performed By: #### 5 7021-8 ####[facility] HOSPITALWNCLIA [id number] [address] LABORATORYCLIA [id number] [place] [address] [place] Platelet mean volume (Bld) [Entitic vol] 10.3 fL Normal 9.0-12.7 [facility] Comment on above: Order Comment: Speci men Type: BLOOD SPECIMENOrdering Facility: [facility] Address: [address] [place] [address] Performed By: #### 5 7021-8 ####[facility] MILLTOWNCLIA [id number] [address] LABORATORYCLIA [id number] [place] [address] [place] Platelets (Bld) [#/Vol] 157 10*3/uL Normal 150-400 [facility] Comment on above: Order Comment: Speci men Type: BLOOD SPECIMENOrdering Facility: [facility] Address: [address] [place] [address] Performed By: #### 5 7021-8 ####[facility]ALL[facility] [id number] [address] LABORATORYCLIA [id number] [place] [address] [place] Platelets Estimate (Bld) [#/Vol] Adequate Normal [facility] Comment on above: Order Comment: Speci men Type: BLOOD SPECIMENOrdering Facility: [facility] Address: [address] [place] [address] Performed By: #### 5 7021-8 ####[facility] MILLTOWNCLIA [id number] [address] LABORATORYCLIA [id number] [place] [address] [place] RBC (Bld) [#/Vol] 3.93 10*6/uL Normal 3.90-5.20 [facility] Comment on above: Order Comment: Speci men Type: BLOOD SPECIMENOrdering Facility: [facility] Address: [address] [place] [address] Performed By: #### 5 7021-8 ####[facility] [id number] [address] LABORATORYCLIA [id number] [place] [address] [place] RED CELL MORPH Reviewed: see result s of individual morphologies Normal [facility] Comment on above: Order Comment: Speci men Type: BLOOD SPECIMENOrdering Facility: [facility] Address: [address] [place] [address] Performed By: #### 5 7021-8 ####[facility]LLASNCA [id number] [address] LABORATORYIA [id number] [place] [address] [place] WBC (Bld) [#/Vol] 18.16 10*3/uL High 3.70-11.00 [facility] Comment on above: Order Comment: Speci men Type: BLOOD SPECIMENOrdering Facility: [facility] Address: [address] [place] [address] Performed By: #### 5 7021-8 ####[facility] [id number] [address] LABORATORYIA [id number] [place] [address] [place] CNOVSPon 05-11-2024 CNOVSP Normal [facility] Cancer Ag125 SerPl-aCncon Cancer Ag 125 Qn 18 [arb'U]/mL Normal <39 [facility] Comment on above: Order Comment: Speci men Type: BLOOD SPECIMENOrdering Facility: [facility] Address: [address] [place] [address] Result Comment: CA 1 25 test methodology used is the Electrochemiluminescence Immunoassay by [employer]. Results obtained with different methods or kits cannot be used interchangeably.The reference interval is based on the 95th percentile of 240 apparently healthy premenopausal and postmenopausal women. At a cutoff value of 65 U/mL, the test sensitivity to distinguish ovarian carcinoma (FIGO stage I to IV) versus benign gynecological disease is 79%, with a specificity of 82%.Reference: Cancer Antigen 125 (CA 125 II) [package insert V 1.0 [place]]. [employer], [place], [place] (December 2014) Performed By: #### 1 0334-1 ####[facility] LABCLIA [id number] [place] [address] [place] Comprehensive metabolic 2000 panelon 05-11-2024 Albumin [Mass/Vol] 4.5 g/dL Normal 3.9-4.9 [facility] Comment on above: Order Comment: Speci men Type: BLOOD SPECIMENOrdering Facility: [facility] Address: [address] [place] [address] Performed By: #### 2 4323-8 ####[facility] [id number] [place] [address] [place] ALP [Catalytic activity/Vol] 98 U/L Normal 34-123 [facility] Comment on above: Order Comment: Speci men Type: BLOOD SPECIMENOrdering Facility: [facility] Address: [address] [place] [address] Performed By: #### 2 4323-8 ####[facility] [id number] [place] [address] [place] ALT [Catalytic activity/Vol] 14 U/L Normal 7-38 [facility] Comment on above: Order Comment: Speci men Type: BLOOD SPECIMENOrdering Facility: [facility] Address: [address] [place] [address] Performed By: #### 2 4323-8 ####[facility] MILLTOWNCLIA [id number] [place] [address] [place] Anion gap [Moles/Vol] 10 mmol/L Normal 8-15 [facility] Comment on above: Order Comment: Speci men Type: BLOOD SPECIMENOrdering Facility: [facility] Address: [address] [place] [address] Performed By: #### 2 4323-8 ####[facility] MARIANNEWNCLIA [id number] [place] [address] [place] AST [Catalytic activity/Vol] 27 U/L Normal 13-35 [facility] Comment on above: Order Comment: Speci men Type: BLOOD SPECIMENOrdering Facility: [facility] Address: [address] [place] [address] Performed By: #### 2 4323-8 ####[facility]CL[facility] [id number] [place] [address] [place] Bilirubin [Mass/Vol] 1.0 mg/dL Normal 0.2-1.3 [facility] Comment on above: Order Comment: Speci men Type: BLOOD SPECIMENOrdering Facility: [facility] Address: [address] [place] [address] Performed By: #### 2 4323-8 ####[facility] P[facility]LLASTAYLORLIA [id number] [place] [address] [place] Calcium [Mass/Vol] 9.8 mg/dL Normal 8.5-10.2 [facility] Comment on above: Order Comment: Speci men Type: BLOOD SPECIMENOrdering Facility: [facility] Address: [address] [place] [address] Performed By: #### 2 4323-8 ####[facility]NCLIA [id number] [place] [address] [place] Chloride [Moles/Vol] 102 mmol/L Normal 98-107 [facility] Comment on above: Order Comment: Speci men Type: BLOOD SPECIMENOrdering Facility: [facility] Address: [address] [place] [address] Performed By: #### 2 4323-8 ####[facility] [id number] [place] [address] [place] CO2 [Moles/Vol] 24 mmol/L Normal 22-30 [facility] Comment on above: Order Comment: Speci men Type: BLOOD SPECIMENOrdering Facility: [facility] Address: [address] [place] [address] Performed By: #### 2 4323-8 ####[facility] [id number] [place] [address] [place] Creatinine [Mass/Vol] 1.42 mg/dL High 0.58-0.96 [facility] Comment on above: Order Comment: Speci men Type: BLOOD SPECIMENOrdering Facility: [facility] Address: [address] [place] [address] Performed By: #### 2 4323-8 ####[facility] [id number] [address] [facility] Creatinine and Glomerular filtration rate.predicted panel (S/P/Bld) 37 mL/min/1.73m??? Low >=60 [facility] Comment on above: Order Comment: Speci men Type: BLOOD SPECIMENOrdering Facility: [facility] Address: [address] [place] [address] Result Comment: Irina mated Glomerular Filtration Rate (eGFR) is calculated using the 2020 CKD-EPI creatinine equation. This equation utilizes serum creatinine, sex, and age as parameters. The creatinine assay has traceable calibration to isotope dilution-mass spectrometry. Refer to KDIGO guidelines for clinical interpretation. In patients with unstable renal function, e.g. those with acute kidney injury, the eGFR may not accurately reflect actual GFR. Performed By: #### 2 4323-8 ####[facility] HOSPITALWNCLIA [id number] [place] [address] [place] Glucose [Mass/Vol] 103 mg/dL High 74-99 [facility] Comment on above: Order Comment: Speci men Type: BLOOD SPECIMENOrdering Facility: [facility] Address: [address] [place] [address] Result Comment: The [place] Diabetes Association (ADA) provides guidance for cutoff values for fasting glucose and random glucose. The ADA defines fasting as no caloric intake for at least 8 hours. Fasting plasma glucose results between 100 to 125 mg/dL indicate increased risk for diabetes (prediabetes).Fasting plasma glucose results greater than or equal to 126 mg/dL meet the criteria for diagnosis of diabetes. In the absence of unequivocal hyperglycemia, results should be confirmed by repeat testing. In a patient with classic symptoms of hyperglycemia or hyperglycemic crisis, random plasma glucose results greater than or equal to 200 mg/dL meet the criteria for diagnosis of diabetes.Reference: Standards of Medical Care in Diabetes 2016, [place] Diabetes Association. Diabetes Care. 2016.39(Suppl 1). Performed By: #### 2 4323-8 ####[facility]NCLIA [id number] [place] [address] [place] Potassium [Moles/Vol] 4.8 mmol/L Normal 3.7-5.1 [facility] Comment on above: Order Comment: Speci men Type: BLOOD SPECIMENOrdering Facility: [facility] Address: [address] [place] [address] Performed By: #### 2 4323-8 ####[facility]ASNCLIA [id number] [place] [address] [place] Protein [Mass/Vol] 7.1 g/dL Normal 6.3-8.0 [facility] Comment on above: Order Comment: Speci men Type: BLOOD SPECIMENOrdering Facility: [facility] Address: [address] [place], [place] [address] Performed By: #### 2 4323-8 ####[facility]ASNCLIA [id number] [place] [address] [place] Sodium [Moles/Vol] 136 mmol/L Normal 136-144 [facility] Comment on above: Order Comment: Speci men Type: BLOOD SPECIMENOrdering Facility: [facility] Address: [address] [place] [address] Performed By: #### 2 4323-8 ####[facility]ITALL[facility] [id number] [place] [address] [place] Urea nitrogen [Mass/Vol] 28 mg/dL High 7-21 [facility] Comment on above: Order Comment: Speci men Type: BLOOD SPECIMENOrdering Facility: [facility] Address: [address] [place] [address] Performed By: #### 2 4323-8 ####[facility] [id number] [place] [address] [place] Vitamin D,25 Hydroxyon 05-02 Vitamin D 25-OH 32.2 ng/mL Normal [facility] Comment on above: Result Comment: Nicole min D 25(OH) Status Range Deficiency <20 ng/mL (50nmol/L) Insufficiency 20 - 30 ng/mL (50 - 75 nmol/L) Sufficiency 30 - 100 ng/mL (75 - 250 nmol/L) Toxicity >100 ng/mL (>250 nmol/L) Performed By: #### L 501.99000, L506.0400, L501.5200, L506.1000, L100.0100, L500.4050, L501.9520 #### [facility] [address] [place], [place], [id number] Absolute lymphocyte countOrd ered By: Vern Bernardo on 05-01-2024 Lymphocytes Auto (Unsp spec) [#/Vol] 10.03 10*3/uL High 0.83-4.51 [facility] Absolute neutrophil countOrd ered By: Vern Bernardo on 05-01-2024 Neutrophils (Bld) [#/Vol] 3.1 10*3/uL 2.0-7.7 [facility] Albumin to globulin ratioOrd ered By: Vern Bernardo on 05-01-2024 Albumin/Globulin [Mass ratio] 1.1 {ratio} 0.9-2.4 [facility] Automated lymphocyte count a s percentage of total leukocytesOrdered By: Vern Bernardo on 05-01-2024 Lymphocytes/100 WBC Auto (Unsp spec) 69.5 % High 19-41 [facility] Basophil percentageOrdered B y: Vern Bernardo on 05-01-2024 Basophils/100 WBC (Bld) 0.4 % 0-1 [facility] Bilirubin, totalOrdered By: Vern Bernardo on 05-01-2024 Bilirubin [Mass/Vol] 0.60 mg/dL 0.20-1.00 [facility] Comment on above: For patients on eltr ombopag therapy, use of Dimension [place] TBIL is not recommended. Blood manual differential co mment interpretation (narrative result)Ordered By: Vern Bernardo on 05-01-2024 Manual differential comment Joe (Bld) [Interp] SCANNED [facility] Blood urea nitrogen (BUN)/cr eatinine ratioOrdered By: Vern Bernardo on 05-01-2024 Urea nitrogen/Creatinine [Mass ratio] 14.4 mg/mg 10-20 [facility] CBC W/Diff, Automatedon 04-03 SMEAR COMMENT SCANNED Normal [facility] Comment on above: Performed By: #### L 501.50373, L506.0400, L501.5200, L506.1000, L100.0100, L500.4050, L501.9520 #### [facility] Laboratory [facility] [place], [address] Carbon dioxide measurementOr dered By: Vern Bernardo on 05-01-2024 CO2 [Moles/Vol] 25.0 mmol/L 21.0-32.0 [facility] Chloride measurementOrdered By: Vern Bernardo on 05-01-2024 Chloride [Moles/Vol] 108 mmol/L High 98-107 [facility] Comprehensive Metabolic Prof ilon 05-01-2024 Albumin [Mass/Vol] 3.5 g/dL Normal 3.2-5.0 [facility] Comment on above: Performed By: #### L 501.90709, L506.0400, L501.5200, L506.1000, L100.0100, L500.4050, L501.9520 #### [facility] [address] [place], [address] Albumin/Globulin [Mass ratio] 1.1 {ratio} Normal 0.9-2.4 [facility] Comment on above: Performed By: #### L 501.72569, L506.0400, L501.5200, L506.1000, L100.0100, L500.4050, L501.9520 #### [facility] [address] [place], [address] ALK P 89 U/L Normal 45-117 [facility] Comment on above: Performed By: #### L 501.57444, L506.0400, L501.5200, L506.1000, L100.0100, L500.4050, L501.9520 #### [facility] [address] [place], [address] ALT [Catalytic activity/Vol] 26 U/L Normal 13-56 [facility] Comment on above: Performed By: #### L 501.02723, L506.0400, L501.5200, L506.1000, L100.0100, L500.4050, L501.9520 #### [facility] [address] [place], [address] AST [Catalytic activity/Vol] 28 U/L Normal 15-37 [facility] Comment on above: Performed By: #### L 501.82201, L506.0400, L501.5200, L506.1000, L100.0100, L500.4050, L501.9520 #### [facility] [address] [place], [address] Bilirubin [Mass/Vol] 0.60 mg/dL Normal 0.20-1.00 [facility] Comment on above: Result Comment: For patients on eltrombopag therapy, use of Dim[place] TBIL is not recommended. Performed By: #### L 501.83223, L506.0400, L501.5200, L506.1000, L100.0100, L500.4050, L501.9520 #### [facility] [address] [place], [address] BUN/CRE 14.4 RATIO Normal 10-20 [facility] Comment on above: Performed By: #### L 501.43133, L506.0400, L501.5200, L506.1000, L100.0100, L500.4050, L501.9520 #### [facility] [address] [place], [address] CA,Total 8.6 mg/dL Normal 8.5-10.1 [facility] Comment on above: Performed By: #### L 501.43225, L506.0400, L501.5200, L506.1000, L100.0100, L500.4050, L501.9520 #### [facility] [address] [place], [address] Chloride [Moles/Vol] 108 mmol/L High 98-107 [facility] Comment on above: Performed By: #### L 501.46992, L506.0400, L501.5200, L506.1000, L100.0100, L500.4050, L501.9520 #### [facility] [address] [place], [address] CO2 [Moles/Vol] 25.0 mmol/L Normal 21.0-32.0 [facility] Comment on above: Performed By: #### L 501.88515, L506.0400, L501.5200, L506.1000, L100.0100, L500.4050, L501.9520 #### [facility] [address] [place], [address] Creatinine [Mass/Vol] 1.60 mg/dL High 0.55-1.02 [facility] Comment on above: Result Comment: The validity of the calculated GFR GFRAA in patients over 70 years has not been determined. Clinical correlation is essential. Performed By: #### L 501.37728, L506.0400, L501.5200, L506.1000, L100.0100, L500.4050, L501.9520 #### [facility] [address] [place], [address] EST GFR - AA 39 mL/min Low >60 [facility] Comment on above: Result Comment: Afri can [place]ian GFR Calc Performed By: #### L 501.74461, L506.0400, L501.5200, L506.1000, L100.0100, L500.4050, L501.9520 #### [facility] [address] [place], [address] GAP 6 Normal 5-15 [facility] Comment on above: Performed By: #### L 501.55713, L506.0400, L501.5200, L506.1000, L100.0100, L500.4050, L501.9520 #### [facility] [address] [place], [address] GFR/1.73 sq M.predicted among non-blacks MDRD (S/P/Bld) [Vol rate/Area] 33 mL/min/{1.73_m2} Low >60 [facility] Comment on above: Result Comment: Non- GFR Calc Performed By: #### L 501.75308, L506.0400, L501.5200, L506.1000, L100.0100, L500.4050, L501.9520 #### [facility] [address] [place], [address] Globulin (S) [Mass/Vol] 3.2 g/dL Normal 2.2-4.2 [facility] Comment on above: Performed By: #### L 501.96647, L506.0400, L501.5200, L506.1000, L100.0100, L500.4050, L501.9520 #### [facility] [address] [place], [address] Glucose [Mass/Vol] 98 mg/dL Normal 74-106 [facility] Comment on above: Performed By: #### L 501.48376, L506.0400, L501.5200, L506.1000, L100.0100, L500.4050, L501.9520 #### [facility] [address] [place], [address] Potassium [Moles/Vol] 4.4 mmol/L Normal 3.5-5.1 [facility] Comment on above: Performed By: #### L 501.24257, L506.0400, L501.5200, L506.1000, L100.0100, L500.4050, L501.9520 #### [facility] [address] [place], [address] Sodium [Moles/Vol] 139 mmol/L Normal 136-145 [facility] Comment on above: Performed By: #### L 501.46077, L506.0400, L501.5200, L506.1000, L100.0100, L500.4050, L501.9520 #### [facility] [address] [place], [address] T PROT 6.7 g/dL Normal 6.4-8.2 [facility] Comment on above: Performed By: #### L 501.42173, L506.0400, L501.5200, L506.1000, L100.0100, L500.4050, L501.9520 #### [facility] [address] [place], [address] Urea nitrogen [Mass/Vol] 23 mg/dL High 7-18 [facility] Comment on above: Performed By: #### L 501.28156, L506.0400, L501.5200, L506.1000, L100.0100, L500.4050, L501.9520 #### [facility] [address] [place], [place], [id number] Direct serum free thyroxine (FT4) measurementOrdered By: Vern Bernardo on 05-01-2024 Free T4 [Mass/Vol] 1.07 ng/dL 0.76-1.46 [facility] Eosinophil percentageOrdered By: Vern Bernardo on 05-01-2024 Eosinophils/100 WBC (Bld) 0.9 % 0-5 [facility] Erythrocyte distribution wid th ratioOrdered By: Vern Bernardo on 05-01-2024 Erythrocyte distribution width (RBC) [Ratio] 14.4 % 11.6-14.6 [facility] Erythrocyte distribution wid th standard deviationOrdered By: Vern Bernardo on 05-01-2024 Erythrocyte distribution width (RBC) [Ratio] 52.7 fl High 35.1-43.9 [facility] Free T3on 05-01-2024 Free T3 [Mass/Vol] 2.4 pg/mL Normal 2.18-3.98 [facility] Comment on above: Performed By: #### L 501.48333, L506.0400, L501.5200, L506.1000, L100.0100, L500.4050, L501.9520 #### [facility] [address] [place], [place], [id number] Free H3Jwqgwth By: Vern bui on 05-01-2024 Free T3 [Mass/Vol] 2.4 pg/mL 2.18-3.98 [facility] Glomerular filtration rate ( GFR) estimationOrdered By: Vern Bernardo on 05-01-2024 GFR/1.73 sq M.predicted among non-blacks MDRD (S/P/Bld) [Vol rate/Area] 33 mL/min/{1.73_m2} Low >60 [facility] Comment on above: Non- GFR Calc Glucose measurementOrdered B y: Vern Bernardo on 05-01-2024 Glucose [Mass/Vol] 98 mg/dL 74-106 [facility] Hematocrit Auto (Bld) [Volum e fraction]Ordered By: Vern Bernardo on 05-01-2024 Hematocrit (Bld) [Volume fraction] 37.3 % 37-47 [facility] Hemoglobin measurementOrdere d By: Vern Bernardo on 05-01-2024 Hemoglobin (Bld) [Mass/Vol] 12.0 g/dL 12.0-15.0 [facility] Immature granulocytes/100 WB C Auto (Bld)Ordered By: Vern Bernardo on 05-01-2024 Immature granulocytes/100 WBC (Bld) 0.100 % 0.0-0.9 [facility] Comment on above: IG% - Immature Granu locytes (promyelocytes, myelocytes and metamyelocytes) > 1% indicates that a LEFT SHIFT is Present. Laboratory - Chemistry and C hemistry - challengeOrdered By: Vern Bernardo on 05-01-2024 AST [Catalytic activity/Vol] 28 U/L 15-37 [facility] MCV (mean corpuscular volume ) determinationOrdered By: Vern Bernardo on 05-01-2024 MCV (RBC) [Entitic vol] 99.2 fL High 81-99 [facility] Magnesiumon 05-01-2024 Magnesium [Mass/Vol] 2.1 mg/dL Normal 1.6-2.6 [facility] Comment on above: Performed By: #### L 501.83531, L506.0400, L501.5200, L506.1000, L100.0100, L500.4050, L501.9520 #### [facility] [address], [address] Magnesium measurementOrdered By: Vern Bernardo on 05-01-2024 Magnesium [Mass/Vol] 2.1 mg/dL 1.6-2.6 [facility] Mean corpuscular hemoglobin (MCH) determinationOrdered By: Vern Bernardo on 05-01-2024 MCH (RBC) [Entitic mass] 31.9 pg 27.0-32.0 [facility] Mean corpuscular hemoglobin concentration (MCHC) determinationOrdered By: Vern Bernardo on 05-01-2024 MCHC (RBC) [Mass/Vol] 32.2 g/dL 32-36 [facility] Mean platelet volume determi nationOrdered By: Vern Bernardo on 05-01-2024 Platelet mean volume (Bld) [Entitic vol] 9.8 fL 6.2-12.0 [facility] Monocyte percentageOrdered B y: Vern Bernardo on 05-01-2024 Monocytes/100 WBC (Bld) 7.3 % 0-10 [facility] Neutrophil percentageOrdered By: Vern Bernardo on 05-01-2024 Neutrophils/100 WBC (Bld) 21.8 % Low 47-70 [facility] Nucleated red blood cell per centageOrdered By: Vern Bernardo on 05-01-2024 Nucleated RBC/100 WBC (Bld) [Ratio] 0 % 0-5 [facility] Platelet countOrdered By: Lisy Bernardo on 05-01-2024 Platelets (Bld) [#/Vol] 177 10*3/uL 150-450 [facility] Potassium measurementOrdered By: Vern Bernardo on 05-01-2024 Potassium [Moles/Vol] 4.4 mmol/L 3.5-5.1 [facility] RBC Auto (Bld) [#/Vol]Ordere d By: Vern Bernardo on 05-01-2024 RBC (Bld) [#/Vol] 3.76 10*6/uL Low 4.2-5.4 [facility] Serum anion gap measurementO rdered By: Vern Bernardo on 05-01-2024 Anion gap [Moles/Vol] 6 mmol/L 5-15 [facility] Serum globulin measurementOr dered By: Vern Bernardo on 05-01-2024 Globulin (S) [Mass/Vol] 3.2 g/dL 2.2-4.2 [facility] Serum or plasma alanine mcgovern otransferase (ALT) measurementOrdered By: Vern Bernardo on 05-01-2024 ALT [Catalytic activity/Vol] 26 U/L 13-56 [facility] Serum or plasma albumin pedro urement (mass/volume)Ordered By: Vern Bernardo on 05-01-2024 Albumin [Mass/Vol] 3.5 g/dL 3.2-5.0 [facility] Serum or plasma alkaline sujatha sphatase measurementOrdered By: Vern Bernardo on 05-01-2024 ALP [Catalytic activity/Vol] 89 U/L 45-117 [facility] Serum or plasma calcium pedro urement (mass/volume)Ordered By: Vern Bernardo on 05-01-2024 Calcium [Mass/Vol] 8.6 mg/dL 8.5-10.1 [facility] Serum or plasma creatinine m easurement (mass/volume)Ordered By: Vern Bernardo on 05-01-2024 Creatinine [Mass/Vol] 1.60 mg/dL High 0.55-1.02 [facility] Comment on above: The validity of the calculated GFR & GFRAA in patients over 70 years has not been determined. Clinical correlation is essential. Serum or plasma thyroid stim ulating hormone (TSH) measurement (units/volume)Ordered By: Vern Bernardo on 05-01-2024 TSH Qn 4.270 uIU/mL High 0.358-3.740 [facility] Serum or plasma urea nitroge n measurement (mass/volume)Ordered By: Vern Bernardo on 05-01-2024 Urea nitrogen [Mass/Vol] 23 mg/dL High 7-18 [facility] Sodium levelOrdered By: Lulú Bernardo on 05-01-2024 Sodium [Moles/Vol] 139 mmol/L 136-145 [facility] T4 Free Directon 05-01-2024 T4 FREE DIRECT 1.07 ng/dL Normal 0.76-1.46 [facility] [facility] Comment on above: Performed By: #### L 501.77395, L506.0400, L501.5200, L506.1000, L100.0100, L500.4050, L501.9520 #### [facility] [address] [facility]. [place], [place], [id number] Thyroid Stim Hormone (TSH)on 05-01-2024 TSH 4.270 uIU/mL High 0.358-3.740 [facility] Comment on above: Performed By: #### L 501.50584, L506.0400, L501.5200, L506.1000, L100.0100, L500.4050, L501.9520 #### [facility] [address] [facility] [place], [place], [id number] Total proteinOrdered By: Danae Bernardo on 05-01-2024 Protein [Mass/Vol] 6.7 g/dL 6.4-8.2 [facility] White blood cell (WBC) count Ordered By: Vern Bernardo on 05-01-2024 WBC (Bld) [#/Vol] 14.4 10*3/uL High 4.4-11.0 [facility] CNPNon 04-28-2024 CNPN Normal [facility] US ABD RIGHT UPPER QUADRANTo n 04-27-2024 US ABD RIGHT UPPER QUADRANT Normal [facility] US ABD SPLEEN -NBon 04-27-19 US ABD SPLEEN -NB Normal [facility] CNPNon 04-24-2024 CNPN Normal [facility] CNPNon 04-23-2024 CNPN Normal [facility] CBC W Auto Differential pane l (Bld)on 04-17-2024 Basophils (Bld) [#/Vol] 0.00 10*3/uL Normal <0.11 [facility] Comment on above: Order Comment: Speci men Type: BLOOD SPECIMENOrdering Facility: [facility] Address: [address] [place] [address] Performed By: #### 5 7021-8 ####[facility] MILLTOWNCLIA [id number] [address] LABORATORYCLIA [id number] [place] [address] [place] Basophils/100 WBC (Bld) 0.0 % Normal C [facility] Comment on above: Order Comment: Speci men Type: BLOOD SPECIMENOrdering Facility: [facility] Address: [address] [place] [address] Performed By: #### 5 7021-8 ####[facility] MILLWNCLIA [id number] [address] LABORATORYCLIA [id number] [place] [address] [place] Differential cell count method Nom (Bld) Manual Normal [facility] Comment on above: Order Comment: Speci men Type: BLOOD SPECIMENOrdering Facility: [facility] Address: [address] [place] [address] Performed By: #### 5 7021-8 ####[facility] HOSPITALWNCLIA [id number] [address] LABORATORYCLIA [id number] [place] [address] [place] Eosinophils (Bld) [#/Vol] 0.16 10*3/uL Normal <0.46 [facility] Comment on above: Order Comment: Speci men Type: BLOOD SPECIMENOrdering Facility: [facility] Address: [address] [place] [address] Performed By: #### 5 7021-8 ####[facility] MILLTOWNCLIA [id number] [address] LABORATORYCLIA [id number] [place] [address] [place] Eosinophils/100 WBC (Bld) 1.0 % Normal [facility] Comment on above: Order Comment: Speci men Type: BLOOD SPECIMENOrdering Facility: [facility] Address: [address] [place] [address] Performed By: #### 5 7021-8 ####[facility] MILLTOWNCLIA [id number] [address] LABORATORYCLIA [id number] [place] [address] [place] Erythrocyte distribution width (RBC) [Ratio] 14.2 % Normal 11.5-15.0 [facility] Comment on above: Order Comment: Speci men Type: BLOOD SPECIMENOrdering Facility: [facility] Address: [address] [place] [address] Performed By: #### 5 7021-8 ####[facility] HOSPITALWSCLIA [id number] [address] LABORATORYCLIA [id number] [place] [address] [place] Hematocrit (Bld) [Volume fraction] 37.9 % Normal 36.0-46.0 [facility] Comment on above: Order Comment: Speci men Type: BLOOD SPECIMENOrdering Facility: [facility] Address: [address] [place] [address] Performed By: #### 5 7021-8 ####[facility] HOSPITALWNCLIA [id number] [address] LABORATORYCLIA [id number] [place] [address] [place] Hemoglobin (Bld) [Mass/Vol] 12.6 g/dL Normal 11.5-15.5 [facility] Comment on above: Order Comment: Speci men Type: BLOOD SPECIMENOrdering Facility: [facility] Address: [address] [place] [address] Performed By: #### 5 7021-8 ####[facility] ANDRESALEXWNCLIA [id number] [address] LABORATORYCLIA [id number] [place] [address] [place] Lymphocytes (Bld) [#/Vol] 13.51 10*3/uL High 1.00-4.00 [facility] Comment on above: Order Comment: Speci men Type: BLOOD SPECIMENOrdering Facility: [facility] Address: [address] [place] [address] Performed By: #### 5 7021-8 ####[facility]LLASNCLIA [id number] [address] LABORATORYCLIA [id number] [address] [place] Lymphocytes/100 WBC (Bld) 82.0 % Normal [facility] Comment on above: Order Comment: Speci men Type: BLOOD SPECIMENOrdering Facility: [facility] Address: [address] [place] [address] Performed By: #### 5 7021-8 ####[facility] P[facility]LLASNCLIA [id number] [address] LABORATORYCLIA [id number] [place] [address] [place] MCH (RBC) [Entitic mass] 32.6 pg Normal 26.0-34.0 [facility] Comment on above: Order Comment: Speci men Type: BLOOD SPECIMENOrdering Facility: [facility] Address: [address] [place] [address] Performed By: #### 5 7021-8 ####[facility] HOSPITALWNCLIA [id number] [address] [facility] LABORATORYCLIA [id number] [place] [address] [place] MCHC (RBC) [Mass/Vol] 33.2 g/dL Normal 30.5-36.0 [facility] Comment on above: Order Comment: Speci men Type: BLOOD SPECIMENOrdering Facility: [facility] Address: [address] [place] [address] Performed By: #### 5 7021-8 ####[facility] MILLTOWNCLIA [id number] [address] LABORATORYCLIA [id number] [place] [address] [place] [facility] MCV (RBC) [Entitic vol] 97.9 fL Normal 80.0-100.0 [facility] Comment on above: Order Comment: Speci men Type: BLOOD SPECIMENOrdering Facility: [facility] Address: [address] [place] [address] Performed By: #### 5 7021-8 ####[facility] MILLTOWNCLIA [id number] [address] LABORATORYCLIA [id number] [address] [facility] Monocytes (Bld) [#/Vol] 0.66 10*3/uL Normal <0.87 [facility] Comment on above: Order Comment: Speci men Type: BLOOD SPECIMENOrdering Facility: [facility] Address: [address] [place] [address] Performed By: #### 5 7021-8 ####[facility] MILLTOWNCLIA [id number] [address] LABORATORYCLIA [id number] [address] [place] Monocytes/100 WBC (Bld) 4.0 % Normal C [facility] Comment on above: Order Comment: Speci men Type: BLOOD SPECIMENOrdering Facility: [facility] Address: [address] [place] [address] Performed By: #### 5 7021-8 ####[facility] HOSPITALWNCLIA [id number] [address] LABORATORYCLIA [id number] [place] [address] [place] Neutrophils (Bld) [#/Vol] 2.14 10*3/uL Normal 1.45-7.50 [facility] Comment on above: Order Comment: Speci men Type: BLOOD SPECIMENOrdering Facility: [facility] Address: [address] [place] [address] Performed By: #### 5 7021-8 ####[facility]LLASNCLIA [id number] [address] LABORATORYCLIA [id number] [place] [address] [place] Neutrophils/100 WBC (Bld) 13.0 % Normal [facility] Comment on above: Order Comment: Speci men Type: BLOOD SPECIMENOrdering Facility: [facility] Address: [address] [place] [address] Result Comment: Diff erential done with albumin Performed By: #### 5 7021-8 ####[facility]LLASNCLIA [id number] [address] LABORATORYCLIA [id number] [place] [address] [place] Nucleated RBC (Bld) [#/Vol] 10*3/uL Normal <0.01 [facility] Comment on above: Order Comment: Speci men Type: BLOOD SPECIMENOrdering Facility: [facility] Address: [address] [place] [address] Performed By: #### 5 7021-8 ####[facility] MILLTOWNCLIA [id number] [address] LABORATORYCLIA [id number] [place] [address] [place] Nucleated RBC/100 WBC (Bld) [Ratio] 0.0 /100 WBC Normal [facility] Comment on above: Order Comment: Speci men Type: BLOOD SPECIMENOrdering Facility: [facility] Address: [address] [place] [address] Performed By: #### 5 7021-8 ####[facility] HOSPITALLIA [id number] [address] LABORATORYIA [id number] [place] [address] [place] Ovalocytes LM Ql (Bld) Few Normal Cl [facility] Comment on above: Order Comment: Speci men Type: BLOOD SPECIMENOrdering Facility: [facility] Address: [address] [place] [address] Performed By: #### 5 7021-8 ####[facility] HOSPITALLIA [id number] [address] LABORATORYIA [id number] [place] [address] [place] Platelet mean volume (Bld) [Entitic vol] 9.8 fL Normal 9.0-12.7 [facility] Comment on above: Order Comment: Speci men Type: BLOOD SPECIMENOrdering Facility: [facility] Address: [address] [place] [address] Performed By: #### 5 7021-8 ####[facility]ASNCLIA [id number] [address] LABORATORYIA [id number] [place] [address] [place] Platelets (Bld) [#/Vol] 172 10*3/uL Normal 150-400 [facility] Comment on above: Order Comment: Speci men Type: BLOOD SPECIMENOrdering Facility: [facility] Address: [address] [place] [address] Performed By: #### 5 7021-8 ####[facility] HOSPITALWNCLIA [id number] [address] LABORATORYCLIA [id number] [place] [address] [place] Platelets Estimate (Bld) [#/Vol] Adequate Normal [facility] Comment on above: Order Comment: Speci men Type: BLOOD SPECIMENOrdering Facility: [facility] Address: [address] [place] [address] Performed By: #### 5 7021-8 ####[facility]OSPITALLIA [id number] [address] LABORATORYCLIA [id number] [place] [address] [place] RBC (Bld) [#/Vol] 3.87 10*6/uL Low 3.90-5.20 [facility] Comment on above: Order Comment: Speci men Type: BLOOD SPECIMENOrdering Facility: [facility] Address: [address] [place] [address] Performed By: #### 5 7021-8 ####[facility] HOSPITALLIA [id number] [address] LABORATORYCLIA [id number] [place] [address] [place] RED CELL MORPH Reviewed: see result s of individual morphologies Normal [facility] Comment on above: Order Comment: Speci men Type: BLOOD SPECIMENOrdering Facility: [facility] Address: [address] [place] [address] Performed By: #### 5 7021-8 ####[facility] ANDRESWNCLIA [id number] [address] LABORATORYCLIA [id number] [place] [address] [place] [facility] [place] WBC (Bld) [#/Vol] 16.48 10*3/uL High 3.70-11.00 [facility] Comment on above: Order Comment: Speci men Type: BLOOD SPECIMENOrdering Facility: [facility] Address: [address] [place] [address] Performed By: #### 5 7021-8 ####[facility] [id number] [address] LABORATORYCLIA [id number] [address] [place] ABD/PEL W IVCONon 025 CT ABD/PEL W IVCON Normal [facility] CT CHEST WO IVCONon 04-17-[address] CHEST WO IVCON Normal [facility] Cancer Ag125 SerPl-aCncon Cancer Ag 125 Qn 18 [arb'U]/mL Normal <39 [facility] Comment on above: Order Comment: Speci men Type: BLOOD SPECIMENOrdering Facility: [facility] Address: [address] [place] [address] Result Comment: CA 1 25 test methodology used is the Electrochemiluminescence Immunoassay by [employer]. Results obtained with different methods or kits cannot be used interchangeably.The reference interval is based on the 95th percentile of 240 apparently healthy premenopausal and postmenopausal women. At a cutoff value of 65 U/mL, the test sensitivity to distinguish ovarian carcinoma (FIGO stage I to IV) versus benign gynecological disease is 79%, with a specificity of 82%.Reference: Cancer Antigen 125 (CA 125 II) [package insert V 1.0 [place]]. [employer], [place], [place] (December 2014) Performed By: #### 1 0334-1 ####[facility] LABCLIA [id number] AMANDA [place]ÑEZDESK [id number] [id number] [place] Comprehensive metabolic 2000 panelon 04-17-2024 Albumin [Mass/Vol] 4.0 g/dL Normal 3.9-4.9 [facility] Comment on above: Order Comment: Speci men Type: BLOOD SPECIMENOrdering Facility: [facility] Address: [address] [place] [address] Performed By: #### 2 4323-8 ####[facility] MILLTOWNCLIA [id number] [place] [address] [place] ALP [Catalytic activity/Vol] 86 U/L Normal 34-123 [facility] Comment on above: Order Comment: Speci men Type: BLOOD SPECIMENOrdering Facility: [facility] Address: [address] [place] [address] Performed By: #### 2 4323-8 ####[facility] MILLWNCLIA [id number] [place] [address] [place] ALT [Catalytic activity/Vol] 12 U/L Normal 7-38 [facility] Comment on above: Order Comment: Speci men Type: BLOOD SPECIMENOrdering Facility: [facility] Address: [address] [place] [address] Performed By: #### 2 4323-8 ####[facility] HOSPITALWNCLIA [id number] [place] [address] [place] Anion gap [Moles/Vol] 10 mmol/L Normal 8-15 [facility] Comment on above: Order Comment: Speci men Type: BLOOD SPECIMENOrdering Facility: [facility] Address: [address] [place] [address] Performed By: #### 2 4323-8 ####[facility] MILLTOWNCLIA [id number] [place] [address] [place] AST [Catalytic activity/Vol] 21 U/L Normal 13-35 [facility] Comment on above: Order Comment: Speci men Type: BLOOD SPECIMENOrdering Facility: [facility] Address: [address] [place] [address] Performed By: #### 2 4323-8 ####[facility] SHIELDSNCLIA [id number] [place] [address] [place] Bilirubin [Mass/Vol] 0.5 mg/dL Normal 0.2-1.3 [facility] Comment on above: Order Comment: Speci men Type: BLOOD SPECIMENOrdering Facility: [facility] Address: [address] [place] [address] Performed By: #### 2 4323-8 ####[facility] HOSPITALWGRICELA [id number] [place] [address] [place] Calcium [Mass/Vol] 9.5 mg/dL Normal 8.5-10.2 [facility] Comment on above: Order Comment: Speci men Type: BLOOD SPECIMENOrdering Facility: [facility] Address: [address] [place] [address] Performed By: #### 2 4323-8 ####[facility] ANDRESARDMOREGRICELA [id number] [place] [address] [place] Chloride [Moles/Vol] 103 mmol/L Normal 98-107 [facility] Comment on above: Order Comment: Speci men Type: BLOOD SPECIMENOrdering Facility: [facility] Address: [address] [place] [address] Performed By: #### 2 4323-8 ####[facility]LL[facility]NCLIA [id number] [place] [address] [place] CO2 [Moles/Vol] 24 mmol/L Normal 22-30 [facility] Comment on above: Order Comment: Speci men Type: BLOOD SPECIMENOrdering Facility: [facility] Address: [address] [place] [address] Performed By: #### 2 4323-8 ####[facility] P[facility]LLASNCLI [id number] [place] [address] [place] Creatinine [Mass/Vol] 1.22 mg/dL High 0.58-0.96 [facility] Comment on above: Order Comment: Speci romy Type: BLOOD SPECIMENOrdering Facility: [facility] Address: [address] [place] [address] Performed By: #### 2 4323-8 ####[facility] [id number] [place] [address] [place] Creatinine and Glomerular filtration rate.predicted panel (S/P/Bld) 44 mL/min/1.73m??? Low >=60 [facility] Comment on above: Order Comment: Zeus stanton Type: BLOOD SPECIMENOrdering Facility: [facility] Address: [address] [place] [address] Result Comment: Irina mated Glomerular Filtration Rate (eGFR) is calculated using the 2020 CKD-EPI creatinine equation. This equation utilizes serum creatinine, sex, and age as parameters. The creatinine assay has traceable calibration to isotope dilution-mass spectrometry. Refer to KDIGO guidelines for clinical interpretation. In patients with unstable renal function, e.g. those with acute kidney injury, the eGFR may not accurately reflect actual GFR. Performed By: #### 2 4323-8 ####[facility] [id number] [place] [address] [place] Glucose [Mass/Vol] 102 mg/dL High 74-99 [facility] Comment on above: Order Comment: Speci romy Type: BLOOD SPECIMENOrdering Facility: [facility] Address: [address] [place] [address] Result Comment: The [place] Diabetes Association (ADA) provides guidance for cutoff values for fasting glucose and random glucose. The ADA defines fasting as no caloric intake for at least 8 hours. Fasting plasma glucose results between 100 to 125 mg/dL indicate increased risk for diabetes (prediabetes).Fasting plasma glucose results greater than or equal to 126 mg/dL meet the criteria for diagnosis of diabetes. In the absence of unequivocal hyperglycemia, results should be confirmed by repeat testing. In a patient with classic symptoms of hyperglycemia or hyperglycemic crisis, random plasma glucose results greater than or equal to 200 mg/dL meet the criteria for diagnosis of diabetes.Reference: Standards of Medical Care in Diabetes 2016, [place] Diabetes Association. Diabetes Care. 2016.39(Suppl 1). Performed By: #### 2 4323-8 ####[facility] MILLWTAYLORLIA [id number] [place] [address] [place] Potassium [Moles/Vol] 4.8 mmol/L Normal 3.7-5.1 [facility] Comment on above: Order Comment: Speci men Type: BLOOD SPECIMENOrdering Facility: [facility] Address: [address] [place] [address] Performed By: #### 2 4323-8 ####[facility] HOS[facility]ITALLIA [id number] [place] [address] [place] Protein [Mass/Vol] 6.7 g/dL Normal 6.3-8.0 [facility] Comment on above: Order Comment: Rubinai men Type: BLOOD SPECIMENOrdering Facility: [facility] Address: [address] [place] [address] Performed By: #### 2 4323-8 ####[facility] HOSPITALLIA [id number] [place] [address] [place] Sodium [Moles/Vol] 137 mmol/L Normal 136-144 [facility] Comment on above: Order Comment: Speci men Type: BLOOD SPECIMENOrdering Facility: [facility] Address: [address] [place] [address] Performed By: #### 2 4323-8 ####[facility]NCLIA [id number] [place] [address] [place] Urea nitrogen [Mass/Vol] 27 mg/dL High 7-21 [facility] Comment on above: Order Comment: Speci men Type: BLOOD SPECIMENOrdering Facility: [facility] Address: [address] [place] [address] Performed By: #### 2 4323-8 ####[facility] MARIANNEWTAYLORLIA [id number] [place] [address] [place] CBC W Auto Differential pane l (Bld)on 02-17-2024 Basophils (Bld) [#/Vol] 0.00 10*3/uL Normal <0.11 [facility] Comment on above: Order Comment: Speci men Type: BLOOD SPECIMENOrdering Facility: [facility] Address: [address] [place] [address] Performed By: #### 5 7021-8 ####[facility]LLASNCLIA [id number] [address] LABORATORYCLIA [id number] [place] [address] [place] Basophils/100 WBC (Bld) 0.0 % Normal [facility] Comment on above: Order Comment: Speci men Type: BLOOD SPECIMENOrdering Facility: [facility] Address: [address] [place] [address] Performed By: #### 5 7021-8 ####[facility] PINELLASTAYLORLIA [id number] [address] LABORATORYCLIA [id number] [place] [address] [place] Differential cell count method Nom (Bld) Manual Normal [facility] Comment on above: Order Comment: Speci men Type: BLOOD SPECIMENOrdering Facility: [facility] Address: [address] [place] [address] Performed By: #### 5 7021-8 ####[facility] PINELLASTAYLORLIA [id number] [address] LABORATORYCLIA [id number] [place] [address] [place] Eosinophils (Bld) [#/Vol] 0.16 10*3/uL Normal <0.46 [facility] Comment on above: Order Comment: Speci men Type: BLOOD SPECIMENOrdering Facility: [facility] Address: [address] [place] [address] Performed By: #### 5 7021-8 ####[facility] MILLTOWNCLIA [id number] [address] LABORATORYCLIA [id number] [place] [address] [place] Eosinophils/100 WBC (Bld) 1.0 % Normal [facility] Comment on above: Order Comment: Speci men Type: BLOOD SPECIMENOrdering Facility: [facility] Address: [address] [place] [address] Performed By: #### 5 7021-8 ####[facility] MILLTOWNCLIA [id number] [address] LABORATORYCLIA [id number] [place] [address] [place] Erythrocyte distribution width (RBC) [Ratio] 14.5 % Normal 11.5-15.0 [facility] Comment on above: Order Comment: Speci men Type: BLOOD SPECIMENOrdering Facility: [facility] Address: [address] [place] [address] Performed By: #### 5 7021-8 ####[facility] MILLTOWNCLIA [id number] [address] LABORATORYCLIA [id number] [place] [address] [place] Hematocrit (Bld) [Volume fraction] 38.0 % Normal 36.0-46.0 [facility] Comment on above: Order Comment: Speci men Type: BLOOD SPECIMENOrdering Facility: [facility] Address: [address] [place] [address] Performed By: #### 5 7021-8 ####[facility] ANDRESTOWNCLIA [id number] [address] LABORATORYCLIA [id number] [place] [address] [place] Hemoglobin (Bld) [Mass/Vol] 12.4 g/dL Normal 11.5-15.5 [facility] Comment on above: Order Comment: Speci men Type: BLOOD SPECIMENOrdering Facility: [facility] Address: [address] [place] [address] Performed By: #### 5 7021-8 ####[facility] ANDRESWNCLIA [id number] [address] LABORATORYCLIA [id number] [place] [address] [place] Lymphocytes (Bld) [#/Vol] 11.74 10*3/uL High 1.00-4.00 [facility] Comment on above: Order Comment: Speci men Type: BLOOD SPECIMENOrdering Facility: [facility] Address: [address] [place] [address] Performed By: #### 5 7021-8 ####[facility] ANDRESTOWNCLIA [id number] [address] LABORATORYCLIA [id number] [place] [address] [place] Lymphocytes/100 WBC (Bld) 72.0 % Normal [facility] Comment on above: Order Comment: Speci men Type: BLOOD SPECIMENOrdering Facility: [facility] Address: [address] [place] [address] Performed By: #### 5 7021-8 ####[facility]LLASNCLIA [id number] [address] LABORATORYCLIA [id number] [place] [address] [place] [facility] MCH (RBC) [Entitic mass] 32.1 pg Normal 26.0-34.0 [facility] Comment on above: Order Comment: Speci men Type: BLOOD SPECIMENOrdering Facility: [facility] Address: [address] [place] [address] Performed By: #### 5 7021-8 ####[facility] H[facility]ITALLIA [id number] [address] LABORATORYCLIA [id number] [place] [address] [place] [facility] MCHC (RBC) [Mass/Vol] 32.6 g/dL Normal 30.5-36.0 [facility] Comment on above: Order Comment: Speci men Type: BLOOD SPECIMENOrdering Facility: [facility] Address: [address] [place] [address] Performed By: #### 5 7021-8 ####[facility] HOSPITALLIA [id number] [address] LABORATORYCLIA [id number] [address] [place] MCV (RBC) [Entitic vol] 98.4 fL Normal 80.0-100.0 [facility] Comment on above: Order Comment: Speci men Type: BLOOD SPECIMENOrdering Facility: [facility] Address: [address] [place], [place] [address] Performed By: #### 5 7021-8 ####[facility]LLASNCLIA [id number] [address] LABORATORYCLIA [id number] [place] [address] [place] Monocytes (Bld) [#/Vol] 0.49 10*3/uL Normal <0.87 [facility] Comment on above: Order Comment: Speci men Type: BLOOD SPECIMENOrdering Facility: [facility] Address: [address] [place] [address] Performed By: #### 5 7021-8 ####[facility]ITALLIA [id number] [address] LABORATORYCLIA [id number] [place] [address] [place] Monocytes/100 WBC (Bld) 3.0 % Normal [facility] Comment on above: Order Comment: Speci men Type: BLOOD SPECIMENOrdering Facility: [facility] Address: [address] [place] [address] Performed By: #### 5 7021-8 ####[facility] [id number] [address] LABORATORYCLIA [id number] [place] [address] [place] Neutrophils (Bld) [#/Vol] 3.91 10*3/uL Normal 1.45-7.50 [facility] Comment on above: Order Comment: Speci men Type: BLOOD SPECIMENOrdering Facility: [facility] Address: [address] [place] [address] Performed By: #### 5 7021-8 ####[facility]OS[facility]ITALLIA [id number] [address] LABORATORYCLIA [id number] [place] [address] [place] Neutrophils/100 WBC (Bld) 24.0 % Normal [facility] Comment on above: Order Comment: Speci men Type: BLOOD SPECIMENOrdering Facility: [facility] Address: [address] [place] [address] Performed By: #### 5 7021-8 ####[facility] MILLTOWNCLIA [id number] [address] LABORATORYCLIA [id number] [address] [place] Nucleated RBC (Bld) [#/Vol] 10*3/uL Normal <0.01 [facility] Comment on above: Order Comment: Speci men Type: BLOOD SPECIMENOrdering Facility: [facility] Address: [address] [place] [address] Performed By: #### 5 7021-8 ####[facility] HOSPITALWNCLIA [id number] [address] LABORATORYCLIA [id number] [place] [address] [place] Nucleated RBC/100 WBC (Bld) [Ratio] 0.0 /100 WBC Normal [facility] Comment on above: Order Comment: Speci men Type: BLOOD SPECIMENOrdering Facility: [facility] Address: [address] [place] [address] Performed By: #### 5 7021-8 ####[facility] HOSPITALWNCLIA [id number] [address] LABORATORYCLIA [id number] [address] [place] Ovalocytes LM Ql (Bld) Few Normal [facility] Comment on above: Order Comment: Speci men Type: BLOOD SPECIMENOrdering Facility: [facility] Address: [address] [place] [address] Performed By: #### 5 7021-8 ####[facility] HOSPITALWNCLIA [id number] [address] LABORATORYCLIA [id number] [place] [address] [place] Platelet mean volume (Bld) [Entitic vol] 10.4 fL Normal 9.0-12.7 [facility] Comment on above: Order Comment: Speci men Type: BLOOD SPECIMENOrdering Facility: [facility] Address: [address] [place] [address] Performed By: #### 5 7021-8 ####[facility] MILLTOWNCLIA [id number] [address] LABORATORYCLIA [id number] [place] [address] [place] Platelets (Bld) [#/Vol] 154 10*3/uL Normal 150-400 [facility] Comment on above: Order Comment: Speci men Type: BLOOD SPECIMENOrdering Facility: [facility] Address: [address] [place] [address] Performed By: #### 5 7021-8 ####[facility] HOSPITALWSCLIA [id number] [address] LABORATORYCLIA [id number] [place] [address] [place] Platelets Estimate (Bld) [#/Vol] Adequate Normal [facility] Comment on above: Order Comment: Speci men Type: BLOOD SPECIMENOrdering Facility: [facility] Address: [address] [place] [address] Performed By: #### 5 7021-8 ####[facility]ITALLIA [id number] [address] LABORATORYCLIA [id number] [place] [address] [place] RBC (Bld) [#/Vol] 3.86 10*6/uL Low 3.90-5.20 [facility] Comment on above: Order Comment: Speci men Type: BLOOD SPECIMENOrdering Facility: [facility] Address: [address] [place] [address] Performed By: #### 5 7021-8 ####[facility]LLASNCLIA [id number] [address] LABORATORYCLIA [id number] [place] [address] [place] RED CELL MORPH Reviewed: see result s of individual morphologies Normal [facility] Comment on above: Order Comment: Speci men Type: BLOOD SPECIMENOrdering Facility: [facility] Address: [address] [place] [address] Performed By: #### 5 7021-8 ####[facility]LLASNCBLUE [facility]OUNT[facility], [facility] [id number] [address] LABORATORYCLIA [id number] [place] [address] [place] WBC (Bld) [#/Vol] 16.31 10*3/uL High 3.70-11.00 [facility] Comment on above: Order Comment: Speci men Type: BLOOD SPECIMENOrdering Facility: [facility] Address: [address] [place] [address] Performed By: #### 5 7021-8 ####[facility]LLASNCBLUE MOUNTAIN [facility], INC[facility] [id number] [address] LABORATORYCLIA [id number] [place] [address] [place] CNOVSPon 02-17-2024 CNOVSP Normal [facility] Cancer Ag125 SerPl-aCncon Cancer Ag 125 Qn 18 [arb'U]/mL Normal <39 [facility] Comment on above: Order Comment: Speci men Type: BLOOD SPECIMENOrdering Facility: [facility] Address: [address] [place] [address] Result Comment: CA 1 25 test methodology used is the Electrochemiluminescence Immunoassay by [employer]. Results obtained with different methods or kits cannot be used interchangeably.The reference interval is based on the 95th percentile of 240 apparently healthy premenopausal and postmenopausal women. At a cutoff value of 65 U/mL, the test sensitivity to distinguish ovarian carcinoma (FIGO stage I to IV) versus benign gynecological disease is 79%, with a specificity of 82%.Reference: Cancer Antigen 125 (CA 125 II) [package insert V 1.0 [place]]. [employer]vin Adjug, [place], [place] (December 2014) Performed By: #### 1 0334-1 ####[facility] LABCLIA [id number] [place] [address] [place] Comprehensive metabolic 2000 panelon 02-17-2024 Albumin [Mass/Vol] 4.3 g/dL Normal 3.9-4.9 [facility] Comment on above: Order Comment: Speci men Type: BLOOD SPECIMENOrdering Facility: [facility] Address: [address] [place] [address] Performed By: #### 2 4323-8 ####[facility] [id number] [place] [address] [place] ALP [Catalytic activity/Vol] 103 U/L Normal 34-123 [facility] Comment on above: Order Comment: Speci men Type: BLOOD SPECIMENOrdering Facility: [facility] Address: [address] [place] [address] Performed By: #### 2 4323-8 ####[facility] [id number] [place] [address] [place] ALT [Catalytic activity/Vol] 15 U/L Normal 7-38 [facility] Comment on above: Order Comment: Speci men Type: BLOOD SPECIMENOrdering Facility: [facility] Address: [address] [place] [address] Performed By: #### 2 4323-8 ####[facility] HOSPITALLIA [id number] [place] [address] [place] Anion gap [Moles/Vol] 10 mmol/L Normal 8-15 [facility] Comment on above: Order Comment: Speci men Type: BLOOD SPECIMENOrdering Facility: [facility] Address: [address] [place] [address] Performed By: #### 2 4323-8 ####[facility] MILLWNCLIA [id number] [place] [address] [place] AST [Catalytic activity/Vol] 27 U/L Normal 13-35 [facility] Comment on above: Order Comment: Speci men Type: BLOOD SPECIMENOrdering Facility: [facility] Address: [address] [place] [address] Performed By: #### 2 4323-8 ####[facility] P[facility]LLASNCLIA [id number] [place] [address] [place] Bilirubin [Mass/Vol] 0.6 mg/dL Normal 0.2-1.3 [facility] Comment on above: Order Comment: Speci men Type: BLOOD SPECIMENOrdering Facility: [facility] Address: [address] [place] [address] Performed By: #### 2 4323-8 ####[facility] HOSPITALLIA [id number] [place] [address] [place] Calcium [Mass/Vol] 9.3 mg/dL Normal 8.5-10.2 [facility] Comment on above: Order Comment: Speci men Type: BLOOD SPECIMENOrdering Facility: [facility] Address: [address] [place], [place] [address] Performed By: #### 2 4323-8 ####[facility]LLASNCLIA [id number] [place] [address] [place] Chloride [Moles/Vol] 101 mmol/L Normal 98-107 [facility] Comment on above: Order Comment: Speci men Type: BLOOD SPECIMENOrdering Facility: [facility] Address: [address] [place] [address] Performed By: #### 2 4323-8 ####[facility]LLASNCBL[facility]OUNT[facility], INC[facility] [id number] [place] [address] [place] CO2 [Moles/Vol] 21 mmol/L Low 22-30 [facility] Comment on above: Order Comment: Speci men Type: BLOOD SPECIMENOrdering Facility: [facility] Address: [address] [place] [address] Performed By: #### 2 4323-8 ####[facility]ASNCBL[facility], INC[facility] [id number] [place] [address] [place] Creatinine [Mass/Vol] 1.33 mg/dL High 0.58-0.96 [facility] Comment on above: Order Comment: Speci men Type: BLOOD SPECIMENOrdering Facility: [facility] Address: [address] [place] [address] Performed By: #### 2 4323-8 ####[facility] PINELLASNCA [id number] [place] [address] [place] Creatinine and Glomerular filtration rate.predicted panel (S/P/Bld) 40 mL/min/1.73m??? Low >=60 [facility] Comment on above: Order Comment: Speci men Type: BLOOD SPECIMENOrdering Facility: [facility] Address: [address] [place] [address] Result Comment: Irina mated Glomerular Filtration Rate (eGFR) is calculated using the 2020 CKD-EPI creatinine equation. This equation utilizes serum creatinine, sex, and age as parameters. The creatinine assay has traceable calibration to isotope dilution-mass spectrometry. Refer to KDIGO guidelines for clinical interpretation. In patients with unstable renal function, e.g. those with acute kidney injury, the eGFR may not accurately reflect actual GFR. Performed By: #### 2 4323-8 ####[facility] HOSPITALWNCLIA [id number] [place] [address] [place] Glucose [Mass/Vol] 95 mg/dL Normal 74-99 [facility] Comment on above: Order Comment: Speci men Type: BLOOD SPECIMENOrdering Facility: [facility] Address: [address] [place] [address] Result Comment: The [place] Diabetes Association (ADA) provides guidance for cutoff values for fasting glucose and random glucose. The ADA defines fasting as no caloric intake for at least 8 hours. Fasting plasma glucose results between 100 to 125 mg/dL indicate increased risk for diabetes (prediabetes).Fasting plasma glucose results greater than or equal to 126 mg/dL meet the criteria for diagnosis of diabetes. In the absence of unequivocal hyperglycemia, results should be confirmed by repeat testing. In a patient with classic symptoms of hyperglycemia or hyperglycemic crisis, random plasma glucose results greater than or equal to 200 mg/dL meet the criteria for diagnosis of diabetes.Reference: Standards of Medical Care in Diabetes 2016, [place] Diabetes Association. Diabetes Care. 2016.39(Suppl 1). Performed By: #### 2 4323-8 ####[facility] MILLTOWNCLIA [id number] [place] [address] [place] Potassium [Moles/Vol] 4.6 mmol/L Normal 3.7-5.1 [facility] Comment on above: Order Comment: Speci men Type: BLOOD SPECIMENOrdering Facility: [facility] Address: [address] [place] [address] Performed By: #### 2 4323-8 ####[facility] MILLALEXWNCLIA [id number] [place] [address] [place] Protein [Mass/Vol] 6.6 g/dL Normal 6.3-8.0 [facility] Comment on above: Order Comment: Speci men Type: BLOOD SPECIMENOrdering Facility: [facility] Address: [address] [place], [place] [address] Performed By: #### 2 4323-8 ####[facility] MILLALEXWNCLIA [id number] [place] [address] [place] Sodium [Moles/Vol] 132 mmol/L Low 136-144 [facility] Comment on above: Order Comment: Speci men Type: BLOOD SPECIMENOrdering Facility: [facility] Address: [address] [place] [address] Performed By: #### 2 4323-8 ####[facility] HOSPITALWTAYLORLIA [id number] [place] [address] [place] [facility] Urea nitrogen [Mass/Vol] 22 mg/dL High 10-19 [facility] Comment on above: Order Comment: Speci men Type: BLOOD SPECIMENOrdering Facility: [facility] Address: [address] [place] [address] Performed By: #### 2 4323-8 ####[facility]LLASNCLIA [id number] [address] CBC W Auto Differential pane l (Bld)on 01-20-2024 Basophils (Bld) [#/Vol] 0.00 10*3/uL Normal <0.11 [facility] Comment on above: Order Comment: Speci men Type: BLOOD SPECIMENOrdering Facility: [facility] Address: [address] [place] [address] Performed By: #### 5 7021-8 ####[facility] PINELLASGRICELA [id number] [address] LABORATORYCLIA [id number] [address] [facility] Basophils/100 WBC (Bld) 0.0 % Normal [facility] Comment on above: Order Comment: Speci men Type: BLOOD SPECIMENOrdering Facility: [facility] Address: [address] [place] [address] Performed By: #### 5 7021-8 ####[facility] P[facility]LLASNCLIA [id number] [address] LABORATORYCLIA [id number] [place] [address] [place] Differential cell count method Nom (Bld) Manual Normal [facility] Comment on above: Order Comment: Speci men Type: BLOOD SPECIMENOrdering Facility: [facility] Address: [address] [place] [address] Performed By: #### 5 7021-8 ####[facility] MILLTOWNCLIA [id number] [address] LABORATORYCLIA [id number] [place] [address] [place] Eosinophils (Bld) [#/Vol] 0.19 10*3/uL Normal <0.46 [facility] Comment on above: Order Comment: Speci men Type: BLOOD SPECIMENOrdering Facility: [facility] Address: [address] [place] [address] Performed By: #### 5 7021-8 ####[facility] MILLTOWNCLIA [id number] [address] LABORATORYCLIA [id number] [place] [address] [place] Eosinophils/100 WBC (Bld) 1.0 % Normal [facility] Comment on above: Order Comment: Speci men Type: BLOOD SPECIMENOrdering Facility: [facility] Address: [address] [place] [address] Performed By: #### 5 7021-8 ####[facility] MILLTOWNCLIA [id number] [address] LABORATORYCLIA [id number] [place] [address] [place] Erythrocyte distribution width (RBC) [Ratio] 14.4 % Normal 11.5-15.0 [facility] Comment on above: Order Comment: Speci men Type: BLOOD SPECIMENOrdering Facility: [facility] Address: [address] [place] [address] Performed By: #### 5 7021-8 ####[facility] ANDRESTOWNCLIA [id number] [address] LABORATORYCLIA [id number] [place] [address] [place] Hematocrit (Bld) [Volume fraction] 39.5 % Normal 36.0-46.0 [facility] Comment on above: Order Comment: Speci men Type: BLOOD SPECIMENOrdering Facility: [facility] Address: [address] [place] [address] Performed By: #### 5 7021-8 ####[facility] HOSPITALWTAYLORLIA [id number] [address] LABORATORYCLIA [id number] [place] [address] [place] Hemoglobin (Bld) [Mass/Vol] 12.7 g/dL Normal 11.5-15.5 [facility] Comment on above: Order Comment: Speci men Type: BLOOD SPECIMENOrdering Facility: [facility] Address: [address] [place] [address] Performed By: #### 5 7021-8 ####[facility] HOSPITALWTAYLORLIA [id number] [address] LABORATORYCLIA [id number] [place] [address] [place] Lymphocytes (Bld) [#/Vol] 13.98 10*3/uL High 1.00-4.00 [facility] Comment on above: Order Comment: Speci men Type: BLOOD SPECIMENOrdering Facility: [facility] Address: [address] [place] [address] Performed By: #### 5 7021-8 ####[facility] PINELLASTAYLORLIA [id number] [address] LABORATORYCLIA [id number] [place] [address] [place] Lymphocytes/100 WBC (Bld) 73.0 % Normal [facility] Comment on above: Order Comment: Speci men Type: BLOOD SPECIMENOrdering Facility: [facility] Address: [address] [place] [address] Performed By: #### 5 7021-8 ####[facility]OS[facility]ITALLIA [id number] [address] LABORATORYIA [id number] [place] [address] [place] MCH (RBC) [Entitic mass] 32.0 pg Normal 26.0-34.0 [facility] Comment on above: Order Comment: Speci men Type: BLOOD SPECIMENOrdering Facility: [facility] Address: [address] [place] [address] Performed By: #### 5 7021-8 ####[facility] [id number] [address] LABORATORYCLIA [id number] [place] [address] [place] MCHC (RBC) [Mass/Vol] 32.2 g/dL Normal 30.5-36.0 [facility] Comment on above: Order Comment: Speci men Type: BLOOD SPECIMENOrdering Facility: [facility] Address: [address] [place], [place] [address] Performed By: #### 5 7021-8 ####[facility]OS[facility]ITALLIA [id number] [address] LABORATORYCLIA [id number] [place] [address] [place] MCV (RBC) [Entitic vol] 99.5 fL Normal 80.0-100.0 [facility] Comment on above: Order Comment: Speci men Type: BLOOD SPECIMENOrdering Facility: [facility] Address: [address] [place] [address] Performed By: #### 5 7021-8 ####[facility] HOSPITALWSCLIA [id number] [address] LABORATORYCLIA [id number] [place] [address] [place] Monocytes (Bld) [#/Vol] 0.57 10*3/uL Normal <0.87 [facility] Comment on above: Order Comment: Speci men Type: BLOOD SPECIMENOrdering Facility: [facility] Address: [address] [place] [address] Performed By: #### 5 7021-8 ####[facility] [id number] [address] LABORATORYCLIA [id number] [place] [address] [place] Monocytes/100 WBC (Bld) 3.0 % Normal [facility] Comment on above: Order Comment: Speci men Type: BLOOD SPECIMENOrdering Facility: [facility] Address: [address] [place] [address] Performed By: #### 5 7021-8 ####[facility] HOSPITALLIA [id number] [address] LABORATORYCLIA [id number] [place] [address] [place] Neutrophils (Bld) [#/Vol] 4.40 10*3/uL Normal 1.45-7.50 [facility] Comment on above: Order Comment: Speci men Type: BLOOD SPECIMENOrdering Facility: [facility] Address: [address] [place] [address] Performed By: #### 5 7021-8 ####[facility] MILLTOWNCLIA [id number] [address] LABORATORYCLIA [id number] [place] [address] [place] Neutrophils/100 WBC (Bld) 23.0 % Normal [facility] Comment on above: Order Comment: Speci men Type: BLOOD SPECIMENOrdering Facility: [facility] Address: [address] [place] [address] Performed By: #### 5 7021-8 ####[facility] HOSPITALWNCLIA [id number] [address] LABORATORYCLIA [id number] [place] [address] [place] Nucleated RBC (Bld) [#/Vol] 10*3/uL Normal <0.01 [facility] Comment on above: Order Comment: Speci men Type: BLOOD SPECIMENOrdering Facility: [facility] Address: [address] [place] [address] Performed By: #### 5 7021-8 ####[facility] HOSPITALWNCLIA [id number] [address] LABORATORYCLIA [id number] [place] [address] [place] Nucleated RBC/100 WBC (Bld) [Ratio] 0.0 /100 WBC Normal [facility] Comment on above: Order Comment: Speci men Type: BLOOD SPECIMENOrdering Facility: [facility] Address: [address] [place] [address] Performed By: #### 5 7021-8 ####[facility] [id number] [address] LABORATORYCLIA [id number] [place] [address] [place] Ovalocytes LM Ql (Bld) Few Normal Cl [facility] Comment on above: Order Comment: Speci men Type: BLOOD SPECIMENOrdering Facility: [facility] Address: [address] [place], [place] [address] Performed By: #### 5 7021-8 ####[facility] MILLTOWNCLIA [id number] [address] LABORATORYCLIA [id number] [place] [address] [place] Platelet mean volume (Bld) [Entitic vol] 10.4 fL Normal 9.0-12.7 [facility] Comment on above: Order Comment: Speci men Type: BLOOD SPECIMENOrdering Facility: [facility] Address: [address] [place] [address] Performed By: #### 5 7021-8 ####[facility] MILLTOWNCLIA [id number] [address] LABORATORYCLIA [id number] [place] [address] [place] Platelets (Bld) [#/Vol] 161 10*3/uL Normal 150-400 [facility] Comment on above: Order Comment: Speci men Type: BLOOD SPECIMENOrdering Facility: [facility] Address: [address] [place] [address] Performed By: #### 5 7021-8 ####[facility] HOSPITALWNCLIA [id number] [address] LABORATORYCLIA [id number] [place] [address] [place] Platelets Estimate (Bld) [#/Vol] Adequate Normal [facility] Comment on above: Order Comment: Speci men Type: BLOOD SPECIMENOrdering Facility: [facility] Address: [address] [place] [address] Performed By: #### 5 7021-8 ####[facility] MILLTOWNCLIA [id number] [address] LABORATORYCLIA [id number] [address] [place] RBC (Bld) [#/Vol] 3.97 10*6/uL Normal 3.90-5.20 [facility] Comment on above: Order Comment: Speci men Type: BLOOD SPECIMENOrdering Facility: [facility] Address: [facility] [place] [address] Performed By: #### 5 7021-8 ####[facility]ASNCLIA [id number] [address] [facility]ORYCENTR[facility] [id number] [place] [address] [place] [facility] RED CELL MORPH Reviewed: see result s of individual morphologies Normal [facility] Comment on above: Order Comment: Speci men Type: BLOOD SPECIMENOrdering Facility: [facility] Address: [facility] [place] [address] Performed By: #### 5 7021-8 ####[facility] HOS[facility]ITALWNCLIA [id number] [address] LABORATORYCLIA [id number] [place] [address] [place] WBC (Bld) [#/Vol] 19.15 10*3/uL High 3.70-11.00 [facility] Comment on above: Order Comment: Speci men Type: BLOOD SPECIMENOrdering Facility: [facility] Address: [facility] [place] [address] Performed By: #### 5 7021-8 ####[facility] MILLTOWNCLIA [id number] [address] [facility] LABORATORYCLIA [id number] [place] [address] [place] Cancer Ag125 SerPl-aCncon Cancer Ag 125 Qn 20 [arb'U]/mL Normal <39 [facility] Comment on above: Order Comment: Speci men Type: BLOOD SPECIMENOrdering Facility: [facility] Address: [address] [place] [address] Result Comment: CA 1 25 test methodology used is the Electrochemiluminescence Immunoassay by [employer]. Results obtained with different methods or kits cannot be used interchangeably.The reference interval is based on the 95th percentile of 240 apparently healthy premenopausal and postmenopausal women. At a cutoff value of 65 U/mL, the test sensitivity to distinguish ovarian carcinoma (FIGO stage I to IV) versus benign gynecological disease is 79%, with a specificity of 82%.Reference: Cancer Antigen 125 (CA 125 II) [package insert V 1.0 [place]]. [employer], [place], [place] (December 2014) Performed By: #### 1 0334-1 ####[facility] LABCLIA [id number] [place] [address] [facility] [place] Comprehensive metabolic 2000 panelon 01-20-2024 Albumin [Mass/Vol] 4.3 g/dL Normal 3.9-4.9 [facility] Comment on above: Order Comment: Speci men Type: BLOOD SPECIMENOrdering Facility: [facility] Address: [address] [place] [address] Performed By: #### 2 4323-8 ####[facility]LLASNCRUBIA [id number] [place] [address] [place] ALP [Catalytic activity/Vol] 99 U/L Normal 34-123 [facility] Comment on above: Order Comment: Speci men Type: BLOOD SPECIMENOrdering Facility: [facility] Address: [address] [place] [address] Performed By: #### 2 4323-8 ####[facility]LL[facility]NCBL[facility] [id number] [place] [address] [place] ALT [Catalytic activity/Vol] 15 U/L Normal 7-38 [facility] Comment on above: Order Comment: Speci men Type: BLOOD SPECIMENOrdering Facility: [facility] Address: [address] [place] [address] Performed By: #### 2 4323-8 ####[facility] MILLTOWNCLIA [id number] [place] [address] [place] Anion gap [Moles/Vol] 13 mmol/L Normal 8-15 [facility] Comment on above: Order Comment: Speci men Type: BLOOD SPECIMENOrdering Facility: [facility] Address: [address] [place] [address] Performed By: #### 2 4323-8 ####[facility] MILLWNCLIA [id number] [place] [address] [place] AST [Catalytic activity/Vol] 28 U/L Normal 13-35 [facility] Comment on above: Order Comment: Speci men Type: BLOOD SPECIMENOrdering Facility: [facility] Address: [address] [place] [address] Performed By: #### 2 4323-8 ####[facility] HOSPITALWNCLIA [id number] [place] [address] [place] Bilirubin [Mass/Vol] 0.7 mg/dL Normal 0.2-1.3 [facility] Comment on above: Order Comment: Speci men Type: BLOOD SPECIMENOrdering Facility: [facility] Address: [address] [place], [place] [address] Performed By: #### 2 4323-8 ####[facility] MILLTOWNCLIA [id number] [place] [address] [place] Calcium [Mass/Vol] 9.4 mg/dL Normal 8.5-10.2 [facility] Comment on above: Order Comment: Speci men Type: BLOOD SPECIMENOrdering Facility: [facility] Address: [address] [place] [address] Performed By: #### 2 4323-8 ####[facility] [id number] [place] [address] [place] Chloride [Moles/Vol] 103 mmol/L Normal 98-107 [facility] Comment on above: Order Comment: Speci men Type: BLOOD SPECIMENOrdering Facility: [facility] Address: [address] [place] [address] Performed By: #### 2 4323-8 ####[facility] [id number] [place] [address] [place] CO2 [Moles/Vol] 20 mmol/L Low 22-30 [facility] Comment on above: Order Comment: Speci men Type: BLOOD SPECIMENOrdering Facility: [facility] Address: [address] [place] [address] Performed By: #### 2 4323-8 ####[facility] [id number] [place] [address] [place] Creatinine [Mass/Vol] 1.34 mg/dL High 0.58-0.96 [facility] Comment on above: Order Comment: Speci men Type: BLOOD SPECIMENOrdering Facility: [facility] Address: [address] [place] [address] Performed By: #### 2 4323-8 ####[facility] [id number] [place] [address] [place] Creatinine and Glomerular filtration rate.predicted panel (S/P/Bld) 39 mL/min/1.73m??? Low >=60 [facility] Comment on above: Order Comment: Speci men Type: BLOOD SPECIMENOrdering Facility: [facility] Address: [address] [place] [address] Result Comment: Irina mated Glomerular Filtration Rate (eGFR) is calculated using the 2020 CKD-EPI creatinine equation. This equation utilizes serum creatinine, sex, and age as parameters. The creatinine assay has traceable calibration to isotope dilution-mass spectrometry. Refer to KDIGO guidelines for clinical interpretation. In patients with unstable renal function, e.g. those with acute kidney injury, the eGFR may not accurately reflect actual GFR. Performed By: #### 2 4323-8 ####[facility]LLASDEB [id number] [place] [address] [place] Glucose [Mass/Vol] 96 mg/dL Normal 74-99 [facility] Comment on above: Order Comment: Zeus stanton Type: BLOOD SPECIMENOrdering Facility: [facility] Address: [address] [place] [address] Result Comment: The [place] Diabetes Association (ADA) provides guidance for cutoff values for fasting glucose and random glucose. The ADA defines fasting as no caloric intake for at least 8 hours. Fasting plasma glucose results between 100 to 125 mg/dL indicate increased risk for diabetes (prediabetes).Fasting plasma glucose results greater than or equal to 126 mg/dL meet the criteria for diagnosis of diabetes. In the absence of unequivocal hyperglycemia, results should be confirmed by repeat testing. In a patient with classic symptoms of hyperglycemia or hyperglycemic crisis, random plasma glucose results greater than or equal to 200 mg/dL meet the criteria for diagnosis of diabetes.Reference: Standards of Medical Care in Diabetes 2016, [place] Diabetes Association. Diabetes Care. 2016.39(Suppl 1). Performed By: #### 2 4323-8 ####[facility] [id number] [place] [address] [place] Potassium [Moles/Vol] 4.1 mmol/L Normal 3.7-5.1 [facility] Comment on above: Order Comment: Zeus stanton Type: BLOOD SPECIMENOrdering Facility: [facility] Address: [address] [place] [address] Performed By: #### 2 4323-8 ####[facility] PINELLASTAYLORLIA [id number] [place] [address] [place] Protein [Mass/Vol] 7.0 g/dL Normal 6.3-8.0 [facility] Comment on above: Order Comment: Speci men Type: BLOOD SPECIMENOrdering Facility: [facility] Address: [address] [place] [address] Performed By: #### 2 4323-8 ####[facility] MILLWNCLIA [id number] [place] [address] [place] Sodium [Moles/Vol] 136 mmol/L Normal 136-144 [facility] Comment on above: Order Comment: Speci men Type: BLOOD SPECIMENOrdering Facility: [facility] Address: [address] [place] [address] Performed By: #### 2 4323-8 ####[facility] HOSPITALWSCLIA [id number] [place] [address] [place] Urea nitrogen [Mass/Vol] 28 mg/dL High 7-21 [facility] Comment on above: Order Comment: Speci men Type: BLOOD SPECIMENOrdering Facility: [facility] Address: [address] [place] [address] Performed By: #### 2 4323-8 ####[facility] MILLWSCLIA [id number] [address] [place] No Panel InformationOrdered By: Vern Bernardo on 07-23-2023 Free Triiodothyronine (T3) pg/dL 1.3 pg/mL 2.18-3.98 [facility] Serum or plasma thyroid stim ulating hormone (TSH) measurement (units/volume)Ordered By: Vern Bernardo on 07-23-2023 TSH Qn 2.13 uIU/mL 0.358-3.74 [facility] Thin prep Papanicolaou smear with manual screeningOrdered By: Vern Bernardo on 07-23-2023 Thin prep Papanicolaou smear with manual screening 0.93 ng/dL 0.76-1.46 [facility] Laboratory - Chemistry and C hemistry - challengeOrdered By: Vernsheyla MuñizEthel on 04-02-2023 Free T4 [Mass/Vol] 0.98 ng/dL 0.76-1.46 [facility] No Panel InformationOrdered By: Vern Bernardo on 04-02-2023 Free Triiodothyronine (T3) pg/dL 2.0 pg/mL 2.18-3.98 [facility] Thyroid Stimulating Hormone (TSH) 4.39 uIU/mL 0.358-3.74 [facility] Absolute lymphocyte countOrd ered By: Vern Bernardo on 11-27-2022 Lymphocytes Auto (Unsp spec) [#/Vol] 7.52 10*3/uL 0.83-4.51 [facility] Basophil percentageOrdered B y: Vern Bernardo on 11-27-2022 Basophils/100 WBC (Bld) 0.2 % 0-1 [facility] Bilirubin [Mass/Vol] 0.30 mg/dL 0.20-1.00 [facility] Comment on above: For patients on eltr ombopag therapy, use of Dimension [place] TBIL is not recommended. Chloride [Moles/Vol] 109 mmol/L 98-107 [facility] Cholesterol [Mass/Vol] 161 mg/dL <200 [facility] Comment on above: <200 mg/dL Desirable 200-240 mg/dL Borderline >240 mg/dL High Risk Eosinophils/100 WBC (Bld) 0.1 % 0-5 [facility] Glucose [Mass/Vol] 89 mg/dL 74-106 [facility] Neutrophils (Bld) [#/Vol] 0.8 10*3/uL 2.0-7.7 [facility] Neutrophils/100 WBC (Bld) 9.4 % 47-70 [facility] Potassium [Moles/Vol] 3.6 mmol/L 3.5-5.1 [facility] Protein [Mass/Vol] 6.7 g/dL 6.4-8.2 [facility] Sodium [Moles/Vol] 140 mmol/L 136-145 [facility] Triglyceride [Mass/Vol] 123 mg/dL <199 [facility] Comment on above: The drugs N-Acetylcy steine and Metamizole may falsely depress this assay.Serum Triglycerides Reference Interval Normal <150 mg/dL Borderline high 150 - 199 mg/dL High 200 - 499 mg/dL Very High > or = 500 mg/dL WBC (Bld) [#/Vol] 8.7 10*3/uL 4.4-11.0 [facility] Blood erythrocytes count (nu mber/volume)Ordered By: Vern Bernardo on 11-27-2022 RBC (Bld) [#/Vol] 2.81 10*6/uL 4.2-5.4 [facility] Blood hemoglobin measurement (mass/volume)Ordered By: Vern Bernardo on 11-27-2022 Hemoglobin (Bld) [Mass/Vol] 8.8 g/dL 12.0-15.0 [facility] Blood lymphocytes/100 leukoc ytesOrdered By: Vern Bernardo on 11-27-2022 Lymphocytes/100 WBC (Bld) 86.5 % 19-41 [facility] Blood manual differential co mment interpretation (narrative result)Ordered By: Vern Bernardo on 11-27-2022 Manual differential comment Joe (Bld) [Interp] COMMENT [facility] Comment on above: LYMPHOCYTOSIS.NEUTRO PENIA. Blood monocytes/100 leukocyt esOrdered By: Vern Bernardo on 11-27-2022 Monocytes/100 WBC (Bld) 3.7 % 0-10 [facility] Blood platelet adequacy dete ction by light microscopyOrdered By: Vern Bernardo on 11-27-2022 Platelets LM Ql (Bld) MOD DEC ADEQ [facility] Blood platelet mean volumeOr dered By: Vern Bernardo on 11-27-2022 Platelet mean volume (Bld) [Entitic vol] 11.4 fL 6.2-12.0 [facility] Determination of erythrocyte mean corpuscular volume (MCV)Ordered By: Vern Bernardo on 11-27-2022 MCV (RBC) [Entitic vol] 102.8 fL 81-99 [facility] Hematocrit Auto (Bld) [Volum e fraction]Ordered By: Vern Bernardo on 11-27-2022 Hematocrit (Bld) [Volume fraction] 28.9 % 37-47 [facility] Laboratory - Chemistry and C hemistry - challengeOrdered By: Vern Bernardo on 11-27-2022 ALP [Catalytic activity/Vol] 78 U/L 45-117 [facility] ALT [Catalytic activity/Vol] 16 U/L 13-56 [facility] CO2 [Moles/Vol] 21.0 mmol/L 21.0-32.0 [facility] Free T4 [Mass/Vol] 0.88 ng/dL 0.76-1.46 [facility] Globulin (S) [Mass/Vol] 3.5 g/dL 2.2-4.2 [facility] Urea nitrogen/Creatinine [Mass ratio] 24.3 mg/mg 10-20 [facility] Laboratory - Hematology and Cell countsOrdered By: Vern Bernardo on 11-27-2022 Erythrocyte distribution width (RBC) [Entitic vol] 49.8 fL 35.1-43.9 [facility] Erythrocyte distribution width (RBC) [Ratio] 13.3 % 11.6-14.6 [facility] Immature granulocytes/100 WBC (Bld) 0.100 % 0.0-0.9 [facility] Comment on above: IG% - Immature Granu locytes (promyelocytes, myelocytes and metamyelocytes) > 1% indicates that a LEFT SHIFT is Present. MCH (RBC) [Entitic mass] 31.3 pg 27.0-32.0 [facility] Nucleated RBC/100 WBC (Bld) [Ratio] 0 % 0-5 [facility] MCHC Auto (RBC) [Mass/Vol]Or dered By: Vern Bernardo on 11-27-2022 MCHC (RBC) [Mass/Vol] 30.4 g/dL 32-36 [facility] No Panel InformationOrdered By: Vern Bernardo on 11-27-2022 Estimated GFR (MDRD) Amer 58 mL/min >60 [facility] Comment on above: GFR Calc Estimated GFR (MDRD) Non-Af Amer 48 mL/min >60 [facility] Comment on above: Non- GFR Calc Free Triiodothyronine (T3) pg/dL 2.0 pg/mL 2.18-3.98 [facility] Thyroid Stimulating Hormone (TSH) 4.86 uIU/mL 0.358-3.74 [facility] Platelets bldOrdered By: Danae Bernardo on 11-27-2022 Platelets (Bld) [#/Vol] 98 10*3/uL 150-450 [facility] Serum or plasma albumin pedro urement (mass/volume)Ordered By: Vern Bernardo on 11-27-2022 Albumin [Mass/Vol] 3.2 g/dL 3.2-5.0 [facility] Serum or plasma albumin/glob ulin mass ratioOrdered By: Vern Bernardo on 11-27-2022 Albumin/Globulin [Mass ratio] 0.9 {ratio} 0.9-2.4 [facility] Serum or plasma calcium pedro urement (mass/volume)Ordered By: Vern Bernardo on 11-27-2022 Calcium [Mass/Vol] 8.7 mg/dL 8.5-10.1 [facility] Serum or plasma cholesterol in HDL measurement (mass/volume)Ordered By: Vern Bernardo on 11-27-2022 Cholesterol in HDL [Mass/Vol] 55 mg/dL >40 [facility] Comment on above: The drugs N-Acetylcy steine and Metamizole may falsely depress this assay. Reference Range HDL <40 mg/dL Low HDL Cholesterol HDL >or= 60 mg/dL High HDL Cholesterol Serum or plasma cholesterol in VLDL measurement (mass/volume)Ordered By: Vern Bernardo on 11-27-2022 Cholesterol in VLDL [Mass/Vol] 25 mg/dL 5-40 [facility] Serum or plasma creatinine m easurement (mass/volume)Ordered By: Vern Bernardo on 11-27-2022 Creatinine [Mass/Vol] 1.15 mg/dL 0.55-1.02 [facility] Comment on above: The validity of the calculated GFR & GFRAA in patients over 70 years has not been determined. Clinical correlation is essential. Serum or plasma low density lipoprotein (LDL) cholesterol measurement (mass/volume)Ordered By: Vern Bernardo on 11-27-2022 Cholesterol in LDL [Mass/Vol] 81 mg/dL 0-130 [facility] Serum or plasma urea nitroge n measurement (mass/volume)Ordered By: Vern Bernardo on 11-27-2022 Urea nitrogen [Mass/Vol] 28 mg/dL 7-18 [facility] Thin prep Papanicolaou smear with manual screeningOrdered By: Vern Bernardo on 11-27-2022 Thin prep Papanicolaou smear with manual screening 16 U/L 15-37 [facility] Thin prep Papanicolaou smear with manual screening 10 5-15 [facility] XR CHEST 2V FRONTAL/LATon [facility] XR CHEST 2V FRONTAL/LATon [facility] XR CHEST 2V FRONTAL/LATon [facility] XR CHEST 2V FRONTAL/LATon [facility] No Panel Informationon 07-05 [facility] ANES POSTPROC EVALon 023 ANES POSTPROC EVAL HNO ID: [id number] Author: Yasmeen Castellanos MD Service: Anesthesiology Author Type: Anesthesiologist Type: Anesthesia Postprocedure Evaluation Filed: 07/02/2022 1:59 PM Note Text: POST ANESTHESIA EVALUATION NOTE : 1940 Procedure Summary Date: 07/02/22 [facility] An[facility]hesia Start: 1219 Anesthesia Stop: 1308 Procedure: INSERTION PLEURAL CATHETER (Right) Diagnosis: Pleural effusion (Pleural effusion [J90]) Surgeons: Vishal Pichardo MD Responsible Provider: Yasmeen Castellanos MD Anesthesia Type: MAC ASA Status: 3 Anesthesia Type: MAC Last Vitals Vitals Value Taken Time BP 122/62 07/02/22 1345 Temp 36.2 ?C (97.2 ?F) 07/02/22 1313 Pulse 63 07/02/22 1348 Resp 25 07/02/22 1348 SpO2 98 % 07/02/22 1348 Vitals shown include unvalidated device data. Post Anesthesia Patient Status Patient Evaluation: PACU. PACU/ICU Patient Condition: stable. Anticipated Disposition: phase 2 then home. Neurological Status: aware and responsive. Pulmonary Status: breathing comfortably on room air Airway Control: returned to baseline unsupported. Cardiovascular Status: stable. Pain Management: clinically adequate - multimodal analgesia pain management approach Postoperative Hydration: acceptable. Intraoperative Events: no significant anesthesia events Post Operative Nausea/Vomiting Status: no significant post operative nausea or vomiting Recommendation: continue current plan of care. Anesthesia Observations No Documentation SIGNATURE: Yasmeen Castellanos MD PATIENT NAME: Ashley Alcantar DATE: July 02, 2022 TIME: 1:58 PM CSN: [id number] [facility] ANES PRE-OPon 07-02-2022 ANES PRE-OP HNO ID: [id number] Author: Yasmeen Castellanos MD Service: Anesthesiology Author Type: Anesthesiologist Type: Anesthesia Preprocedure Evaluation Filed: 07/02/2022 11:24 AM Note Text: ANESTHESIOLOGY DAY OF SURGERY NOTE : 1940 Procedure Information Date/Time: 07/02/22 1142 Procedure: INSERTION PLEURAL CATHETER (Right) [facility] Surgeons: Vishal Pichardo MD Estimated body mass index is 24.54 kg/m? as calculated from the following: Height as of 06/28/22: 147.3 cm (4' 10). Weight as of 06/28/22: 53.3 kg (117 lb 6.4 oz). Most recent hematocrit and potassium results: Hematocrit 32.6 06/26/2022 Potassium 4.0 06/26/2022 Relevant Problems CARDIO (+) Coronary artery disease involving tangirnaq coronary artery of tangirnaq heart without angina pectoris (+) Nonrheumatic aortic valve insufficiency (+) Nonrheumatic aortic valve stenosis (+) Nonrheumatic mitral valve regurgitation (+) Primary hypertension GI (+) GERD (gastroesophageal reflux disease) -RENAL (+) CKD (chronic kidney disease) Other (+) CLL (chronic lymphocytic leukemia) (HCC) I - PHYSICAL EVALUATION AIRWAY Patient intubated: No. Tracheostomy tube not present Mallampati: II. TM distance: >3 FB. Neck ROM: full ROM without neurological symptoms. Mouth opening: adequate. Short neck: no. Thick neck: no DENTAL Dental findings: teeth intact. Additional exam findings: no II - ANESTHESIA PLAN ASA Score: 3 Anesthetic Plan: MAC The patient is not a current smoker. Beta Simran Monitoring Plan Monitoring plan: standard ASA. Post Procedure Analgesic Plan Postoperative analgesic plan: multimodal analgesia. Patient / Surrogate agrees to blood products: blood products not planned DNR status not reviewed with patient and/or family prior to surgery. Significant changes in the patient condition since the History and Physical, not otherwise documented in primary service progress note: no. Potential Anesthesia issues that may suggest increased risk of complications or contraindication to planned procedure: none. No vitals data found for the desired time range. Facility-Administered Medications as of 07/02/2022 Medication Dose Route Frequency - lidocaine (PF) 10 mg/mL (1 %) 1-2 mg injection (XYLOCAINE) 0.1-0.2 mL INTRADERMAL PRN - lactated ringers iv infusion 5-30 mL/hr INTRAVENOUS CONTINUOUS - NaCl 0.9% iv flush bag 20 mL INTRAVENOUS PRN - clindamycin iv piggyback 900 mg in D5W 50 mL (CLEOCIN) 900 mg INTRAVENOUS Pre-Op Once Outpatient Medications as of 07/02/2022 Medication Sig - senna-docusate (SENNA WITH DOCUSATE SODIUM) 8.6-50 mg per tablet Take 1-2 tablets by mouth once daily. May increase or decrease as needed to have one soft bowel movement daily - furosemide (LASIX) 20 mg tablet Take 20 mg by mouth twice daily. - ferrous sulfate 325 mg (65 mg iron) tablet Take 1 tablet by mouth every other day. - aspirin 81 mg chewable tablet Take 1 tablet by mouth once daily. - potassium chloride ER (KLOR-CON M10) 10 mEq tablet Take 10 mEq by mouth once daily. - iv contrast (will be provided with radiology test) CT Chest ABD/PEL-Inject, intravenously, once for 1 dose.No IV access, insert saline lock prior to the beginning of sedation, infusion, injection of imaging exam. Discontinue saline lock post exam. If Pt. has a central line or IVAD, may access for administration according to line specific nursing protocol. Once exam is complete flush line and de-access according to line specific nursing protocol in the CT contrast administration guidelines link. (Patient not taking: Reported on 06/28/2022) - enteric contrast (will be provided with radiology test) For CT CHESTABD/PEL W IVCON Routine order Administer, As Directed One Time Only, via Oral, Rectal, both Oral and Rectal, Enteric Tube, Stoma or Indwelling Catheter, Enteric Contrast as designated per enteric contrast guidelines (Patient not taking: Reported on 06/28/2022) - midodrine (PROAMITINE) 5 mg tablet Take 5 mg by mouth as needed. - ondansetron orally disintegrating (ZOFRAN ODT) 4 mg disintegrating tablet Take 4 mg by mouth as needed. - guaiFENesin 200 mg/5 mL liqd Take by mouth as needed. (Patient not taking: No sig reported) - prochlorperazine (COMPAZINE) 10 mg tablet Take 1 tablet by mouth every 6 hours as needed. - ondansetron (ZOFRAN) 8 mg tablet Take 1 tablet by mouth every 8 hours as needed for nausea/vomiting. - acetaminophen (TYLENOL EXTRA STRENGTH) 500 mg tablet Take 2 tablets by mouth every 6 hours. - lisinopril (ZESTRIL, PRINIVIL) 40 mg tablet Take 40 mg by mouth once daily. (Patient not taking: No sig reported) - vit C/E/cuperic/zinc/lutein (EYE MULTIVIT-LUTEIN,C-E-CU-ZN, ORAL) Take by mouth. (Patient not taking: Reported on 06/28/2022) I have interviewed and examined the patient. I have reviewed the medical record and/or the pre-anesthesia evaluation, pertinent labs, and test results. This (more content not included)... [facility] BRIEF OP NOTon 07-02-2022 BRIEF OP NOT HNO ID: [id number] Author: Vishal Pichardo MD Service: General Surgery Author Type: Physician Type: Brief Op Note Filed: 07/02/2022 1:11 PM Note Text: BRIEF OPERATIVE NOTATION FOR SURGICAL PROCEDURE. Ashley Alcantar 1940 [id number] female LOG ID: [id number] Surgery/Procedure Date: 07/02/2022 Incision/Procedure Start Time: 12:42 PM Incision Close/Procedure End Time: 1:00 PM Surgeon(s)/Proceduralist(s ) and Pole Framer(s): Surgeon(s) and Role: * Vishal Pichardo MD - Primary Physician Pole Framer: Clarita Hardin PA-C REFERRING PHYSICIAN: Venkat Outpatient DEPT: GUILLERMO PROVIDER: Nancy POS: [id number] ANESTHESIA: Monitored Anesthesia Care ASA CLASS: 3 - Severe DIAGNOSIS: right pleural effusion PROCEDURE: 55655 - Insertion of Tunnelled Pleural Catheter - Right and 93377 - Ultrasound Guidance for Needle Placement IVF: 800 EBL: minimal Specimens: Right pleural effusion 1550cc ADDITIONAL DIAGNOSES: FINDINGS: as above COMPLICATIONS: None PMHx - PAST MEDICAL HISTORY Diagnosis Date Anemia Aortic stenosis CLL (chronic lymphocytic leukemia) (HCC) Essential hypertension COMORBIDITIES - Cancer Metastasis and Chronic Pulmonary Post Op Occurrences - None Wound Classification - Clean Operative note dictated in the dictation system. - [id number] Vishal Pichardo MD [facility] CYTOLOGY NON-GYNon CASE REPORT [facility] Comment on above: Order Comment: Speci romy Type: THORACENTESIS Ordering Facility: [facility] Address: [address] [place] [address] Result Comment: [facility] Cytology Report Case: [id number] Authorizing Provider: Vishal Pichardo MD Collected: 07/02/2022 12:53 PM Ordering Location: [facility] Surgery Received: 07/02/2022 03:02 PM Pathologist: Anna Neely MD Specimen: PLEURAL FLUID RIGHT Performed By: #### C YTONON #### [facility] CLIA [id number] [address] [place] [address] [facility] CLIA [id number] [address] [place], [place] [address] [place] [address] OF [place] CLINICAL HISTORY [facility] Comment on above: Order Comment: Zeus stanton Type: THORACENTESIS Ordering Facility: [facility] Address: [address] [place] [address] Result Comment: Pre- op diagnosis: Pleural effusion [J90] Performed By: #### C YTONON #### [facility] CLIA [id number] [address] [place], [place] [address] CLIA [id number] [address] FINAL DIAGNOSIS [facility] Comment on above: Order Comment: Zeus stanton Type: THORACENTESIS Ordering Facility: [facility] Address: [address] [place] [address] Result Comment: A - PLEURAL FLUID RIGHT Rare atypical cells present. The following cell blocks were associated with this case: A1 Cell Block, Alcohol Fixed Performed By: #### C YTONON #### [facility] CLIA [id number] [address] [facility] CLIA [id number] [address] FINAL PERFORMING LAB [facility] Comment on above: Order Comment: Speci men Type: THORACENTESIS Ordering Facility: [facility] Address: [address] [place] [address] Result Comment: Tech nical component, field marketing team leader screening performed at [facility], [address] [id number] CLIA# [id number] Diagnostic interpretation performed at [facility], [facility] [id number] CLIA# [id number] Cost Controller: Raffi Aviles M.D. Performed By: #### C YTONON #### [facility] CLIA [id number] [address] [place] [address] [facility] CLIA [id number] [address] GROSS DESCRIPTION [facility] Comment on above: Order Comment: Speci men Type: THORACENTESIS Ordering Facility: [facility] Address: [address] [place] [address] Result Comment: A. P LEURAL FLUID RIGHT 400 cc cloudy maegan fluid with material. ThinPrep and Cell Block prepared. Performed By: #### C YTONON #### [facility] CLIA [id number] [address] [place] [facility] CLIA [id number] [address] ORDER COMMENT [facility] Comment on above: Order Comment: Speci men Type: THORACENTESIS Ordering Facility: [facility] Address: [address] [place] [address] Result Comment: Pre- op diagnosis: Pleural effusion [J90] Performed By: #### C YTONON #### [facility] CLIA [id number] [address] [id number] [facility] CLIA [id number] [address] [place] [address] [facility] HISTORY PHYSICALon HISTORY PHYSICAL HNO ID: [id number] Author: Vishal Pichardo MD Service: General Surgery Author Type: Physician Type: HANDP Filed: 07/02/2022 11:32 AM Note Text: HISTORY AND PHYSICAL Ashley Alcantar 1940 REFERRING PHYSICIAN: Ruddy Patricio DO CHIEF COMPLAINT: Consult (Pleurex cath consult referred by Dr patricio) HPI: The patient is a 81 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 Ashley is have recurrent accumulation of right pleural effusion. Ashley has had the need for multiple thoracenteses at this point twice a week. The patient underwent thoracentesis this past Saturday and had I understand 1600 cc of fluid removed. I obtained a chest x-ray today that already shows significant reaccumulation of the fluid. She is scheduled to have repeat thoracentesis tomorrow. The patient is referred for evaluation for placement of a tunnelled right pleural catheter or Pleurex catheter. Additionally, the patient will be traveling down to [place] for second opinion at [facility]. The family tells me that they are planning to start driving on July 06 but that the visit at [facility] is not scheduled until July 12. The patient is being seen by me today at the request of Dr. Patricio for my opinion and advice regarding rapidly recurring reaccumulating right pleural fluid. PAST MEDICAL HISTORY PAST MEDICAL HISTORY Diagnosis Date Anemia Aortic stenosis CLL (chronic lymphocytic leukemia) (HCC) Essential hypertension PAST SURGICAL HISTORY PAST SURGICAL HISTORY Procedure Laterality Date ANESTH, SECTION 11/19/1970 PARACENTESIS x2 PERCUTANEOUS AORTIC VALVE REPLACEMENT 11/2021 REMV CATARACT EXTRACAP,INSERT LENS Right 06/20/2021 REMV CATARACT EXTRACAP,INSERT LENS Left 07/11/2021 TONSILLECTOMY AND ADENOIDECTOMY age 28 TOOTH EXTRACTION 11/01/2021 CURRENT MEDICATIONS Current Outpatient Medications Medication Sig Dispense Refill midodrine (PROAMITINE) 5 mg tablet Take 5 mg by mouth as needed. ondansetron orally disintegrating (ZOFRAN ODT) 4 mg disintegrating tablet Take 4 mg by mouth as needed. prochlorperazine (COMPAZINE) 10 mg tablet Take 1 tablet by mouth every 6 hours as needed. 30 tablet 2 ondansetron (ZOFRAN) 8 mg tablet Take 1 tablet by mouth every 8 hours as needed for nausea/vomiting. 30 tablet 2 acetaminophen (TYLENOL EXTRA STRENGTH) 500 mg tablet Take 2 tablets by mouth every 6 hours. 30 tablet 0 senna-docusate (SENNA WITH DOCUSATE SODIUM) 8.6-50 mg per tablet Take 1-2 tablets by mouth once daily. May increase or decrease as needed to have one soft bowel movement daily 30 tablet 0 ferrous sulfate 325 mg (65 mg iron) tablet Take 1 tablet by mouth every other day. aspirin 81 mg chewable tablet Take 1 tablet by mouth once daily. 90 tablet 3 potassium chloride ER (KLOR-CON M10) 10 mEq tablet Take 10 mEq by mouth once daily. iv contrast (will be provided with radiology test) CT Chest ABD/PEL-Inject, intravenously, once for 1 dose.No IV access, insert saline lock prior to the beginning of sedation, infusion, injection of imaging exam. Discontinue saline lock post exam. If Pt. has a central line or IVAD, may access for administration according to line specific nursing protocol. Once exam is complete flush line and de-access according to line specific nursing protocol in the CT contrast administration guidelines link. (Patient not taking: Reported on 06/28/2022) 1 Each 0 enteric contrast (will be provided with radiology test) For CT CHESTABD/PEL W IVCON Routine order Administer, As Directed One Time Only, via Oral, Rectal, both Oral and Rectal, Enteric Tube, Stoma or Indwelling Catheter, Enteric Contrast as designated per enteric contrast guidelines (Patient not taking: Reported on 06/28/2022) 1 Each 0 guaiFENesin 200 mg/5 mL liqd Take by mouth as needed. (Patient not taking: No sig reported) lisinopril (ZESTRIL, PRINIVIL) 40 mg tablet Take 40 mg by mouth once daily. (Patient not taking: No sig reported) furosemide (LASIX) 20 mg tablet Take 20 mg by mouth twice daily. (Patient not taking: Reported on 06/28/2022) vit C/E/cuperic/zinc/lutein (EYE MULTIVIT-LUTEIN,C-E-CU-ZN, ORAL) Take by mouth. (Patient not taking: Reported on 06/28/2022) Current Facility-Administered Medications Medication Dose Route Frequency Provider Last Rate Last Admin perflutren lipid microspheres 1.3 mL in NaCl (PF) 0.9% 10 mL injection (DEFINITY) INTRAVENOUS DIRECTED PRN Ruddy Mazariegosi, DO sodium chloride 0.9 % (flush) 10 mL (BD POSIFLUSH) 10 mL INTRAVENOUS DIRECTED PRN Ruddy Pardo Masci, DO perflutren lipid microspheres 1.3 mL in NaCl (PF) 0.9% 10 mL injection (DEFINITY) INTRAVENOUS DIRECTED PRN Ruddy Pardo Masci, DO sodium chloride 0.9 % (flush) 10 mL (BD POSIFLUSH) 10 mL INTRAVENOUS DIRECTED PRN Ruddy Mazariegosi, DO perflutren lipid microspheres 1.3 mL in NaCl (PF) 0.9% 10 mL injection (DEFINITY) INTRAVENOUS DIRECTED PRN Nir Roth MD sodium chl (more content not included)... [facility] OPERATIVE NOon 07-02-2022 OPERATIVE NO HNO ID: [id number] Author: Vishal Pichardo MD Service: General Surgery Author Type: Physician Type: Operative Report Filed: 2022 5:59 AM Note Text: [facility] - Operative Report ASHLEY ALCANTAR : 1940 AGE: 82. SEX: F PATIENT TYPE: A [facility] [place] LOCATION: [facility] ATTENDING PHYSICIAN: Vishal Pichardo M.D. CSN NUMBER: [id number] DATE OF SURGERY/PROCEDURE: 07/02/2022 INCISION/PROCEDURE START TIME: 4:42 p.m. INCISION CLOSE/PROCEDURE END TIME: 1:00 p.m. PREOPERATIVE DIAGNOSIS: Right pleural effusion. POSTOPERATIVE DIAGNOSIS: Right pleural effusion status post placement of PleurX catheter draining 1550 mL of pleural fluid. SURGEON: Vishal Pichardo M.D. ELECTRIC LINEMAN: none SURGERY/PROCEDURE: Ultrasound guidance for right tunneled pleural catheter/PleurX insertion. ANESTHESIA: Monitored anesthetic care. LOGIN ID#: [id number] ANESTHESIOLOGIST: Dr. Castellanos. ASA: 3. INTRAVENOUS FLUIDS: 800 mL. ESTIMATED BLOOD LOSS: Minimal. TOTAL PLEURAL FLUID ASPIRATED: 1550 mL, approximately 400 sent for cytology. DRAINS: The PleurX catheter was dressed. COMPLICATIONS: None. DISPOSITION: Patient taken to PACU in stable condition. DESCRIPTION OF PROCEDURE: Patient's left chest was marked in the holding area. The patient concurred this as the site that has been undergoing thoracentesis. She had dullness to percussion. Decreased breath sounds about mcc up the right pleural side. Sign-in was performed, verifying patient, site, procedure, position, critical nursing information, VTE, and antibiotic prophylaxis. Patient had sequential compression devices placed, received 900 mg of clindamycin due to a Keflex allergy. She was brought back to the operative suite. After she was sedated, the right chest and upper abdomen were prepped and draped in usual fashion. Prior to prepping, ultrasound was used to demonstrate a nice pleural fluid pocket just at the level of the nipple on the anterior axillary line, in which the site was marked. After the site was prepped, a time-out was performed verifying patient site, procedure, position. Local anesthetic was injected in the skin. Finally, it was used to access the pleural space returning straw-colored with slightly blood-tinged fluid. A Seldinger needle was inserted returning straw-colored to slightly blood-tinged fluid and a wire was inserted through the Seldinger needle and it was withdrawn. This wire was secured. Local anesthetic was injected at the planned tube insertion, actually skin excision site, and then local anesthetic was tunneled from the skin site to the thoracic site. Following this, incision made on the wire and the wire and incision on the chest. The catheter tunneled from the right upper quadrant abdominal site to the wire. Then, an introducer sheath and dilator were inserted through the wire. The wire and introducer were removed. Fluid was allowed to roll out of the introducer sheath into a bucket, which was then caught. Following this, the catheter was inserted into the thoracic space. The introducer sheath removed. The catheter was affixed to a syringe and aspiration of fluid both through the syringe and then using the PleurX bottle for a total of 1550 mL was performed. Once this was aspirated, the catheter was capped. The thoracic site was closed with interrupted 4-0 Monocryl suture. The catheter exit site was secured with a 3-0 silk. Dermabond was applied on thoracic site, a dressing site there, and the PleurX dressing applied over the tube exit of the skin site. Following this, the patient was brought to recovery in stable condition with plans for postprocedure chest x- ray. Vishal Pichardo M.D. RG:[id number] /[id number] [facility] XR CHEST 1V FRONTAL PORTon 0 07-02-2022 XR CHEST 1V FRONTAL PORT * * *Final Report* * * DATE OF EXAM: Jul 02 2022 1:29PM MDX [id number] - XR CHEST 1V FRONTAL PORT / PROCEDURE REASON: Evaluate tube, line or lead position * * * * Physician Interpretation * * * * EXAMINATION: CHEST RADIOGRAPH (PORTABLE SINGLE VIEW AP) Exam Date/Time: 07/02/2022 1:29 PM CLINICAL HISTORY: Evaluate tube, line or lead position MQ: XCPR_5 Comparison: 06/28/2022 RESULT: Lines, tubes, and devices: Left thoracotomy tube with its tip on the upper right medially. Aortic root stent Lungs and pleura: Previous large right pleural effusion has been drained. The lungs are well expanded and clear. Cardiomediastinal silhouette: Stable cardiomediastinal silhouette. Other: . IMPRESSION: Chest appears clear. Thoracotomy tube in satisfactory position. Dental Equipment Installer And Servicer: NARGIS Transcribe Date/Time: Jul 02 2022 1:45P Dictated by : YADY MARKS MD This examination was interpreted and the report reviewed and electronically signed by: YADY MARKS MD on Jul 02 2022 1:46PM EST [id number] [facility] Absolute lymphocyte countOrd ered By: ED PROVIDER on 06-29-2022 Lymphocytes Auto (Unsp spec) [#/Vol] 22.30 10*3/uL 0.83-4.51 [facility] Basophil percentageOrdered B y: ED PROVIDER on 06-29-2022 Basophil percentage 101 mg/dL 74-106 [facility] Basophil percentage 135 mmol/L 136-145 [facility] Basophil percentage 4.2 mmol/L 3.5-5.1 [facility] Basophil percentage 106 mmol/L 98-107 [facility] Basophils (Bld) [#/Vol] 26.5 10*3/uL 4.4-11.0 [facility] Basophils (Bld) [#/Vol] 3.5 10*3/uL 2.0-7.7 [facility] Basophils/100 WBC (Bld) 13.3 % 47-70 [facility] Basophils/100 WBC (Bld) 1.1 % 0-5 [facility] Basophils/100 WBC (Bld) 0.2 % 0-1 [facility] Blood erythrocytes count (nu mber/volume)Ordered By: ED PROVIDER on 06-29-2022 RBC (Bld) [#/Vol] 3.21 10*6/uL 4.2-5.4 [facility] Blood hemoglobin measurement (mass/volume)Ordered By: ED PROVIDER on 06-29-2022 Hemoglobin (Bld) [Mass/Vol] 9.4 g/dL 12.0-15.0 [facility] Blood lymphocytes/100 leukoc ytesOrdered By: ED PROVIDER on 06-29-2022 Lymphocytes/100 WBC (Bld) 84.1 % 19-41 [facility] Blood manual differential co mment interpretation (narrative result)Ordered By: ED PROVIDER on 06-29-2022 Manual differential comment Joe (Bld) [Interp] SCANNED [facility] Blood monocytes/100 leukocyt esOrdered By: ED PROVIDER on 06-29-2022 Monocytes/100 WBC (Bld) 1.1 % 0-10 [facility] Blood platelet mean volumeOr dered By: ED PROVIDER on 06-29-2022 Platelet mean volume (Bld) [Entitic vol] 9.6 fL 6.2-12.0 [facility] Determination of erythrocyte mean corpuscular volume (MCV)Ordered By: ED PROVIDER on 06-29-2022 MCV (RBC) [Entitic vol] 96.6 fL 81-99 [facility] Hematocrit Auto (Bld) [Volum e fraction]Ordered By: ED PROVIDER on 06-29-2022 Hematocrit (Bld) [Volume fraction] 31.0 % 37-47 [facility] INR in Blood by Coagulation assayOrdered By: ED PROVIDER on 06-29-2022 INR Coag (Bld) [Relative time] 1.0 {INR} [facility] MCHC Auto (RBC) [Mass/Vol]Or dered By: ED PROVIDER on 06-29-2022 MCHC (RBC) [Mass/Vol] 30.3 g/dL 32-36 [facility] Macrocytes detectionOrdered By: ED PROVIDER on 06-29-2022 Macrocytes Ql (Bld) 1+ [facility] No Panel InformationOrdered By: Dr. Dueñas on 06-29-2022 21 pg/mL 3.0-54.0 [facility] No Panel InformationOrdered By: ED PROVIDER on 06-29-2022 29.3 pg 27.0-32.0 [facility] 20.5 % 11.6-14.6 [facility] 70.4 fl 35.1-43.9 [facility] 0.200 % 0.0-0.9 [facility] 0 % 0-5 [facility] 2+ [facility] 12.8 SECONDS 11.7-14.9 [facility] 60 mL/min >60 [facility] 73 mL/min >60 [facility] 42.29 ml/min [facility] 24.4 RATIO 10-20 [facility] 27.0 mmol/L 21.0-32.0 [facility] Platelets bldOrdered By: ED PROVIDER on 06-29-2022 Platelets (Bld) [#/Vol] 162 10*3/uL 150-450 [facility] Review by pathologistOrdered By: ED PROVIDER on 06-29-2022 Pathologist review Joe (Unsp spec) [Interp] May foll [facility] Pathologist review Joe (Unsp spec) [Interp] Reviewed [facility] Serum or plasma calcium pedro urement (mass/volume)Ordered By: ED PROVIDER on 06-29-2022 Calcium [Mass/Vol] 7.7 mg/dL 8.5-10.1 [facility] Serum or plasma creatinine m easurement (mass/volume)Ordered By: ED PROVIDER on 06-29-2022 Creatinine [Mass/Vol] 0.94 mg/dL 0.55-1.02 [facility] Serum or plasma urea nitroge n measurement (mass/volume)Ordered By: ED PROVIDER on 06-29-2022 Urea nitrogen [Mass/Vol] 23 mg/dL 7-18 [facility] Smudge cell detectionOrdered By: ED PROVIDER on 06-29-2022 Smudge cells LM Ql (Bld) 2+ [facility] Thin prep Papanicolaou smear with manual screeningOrdered By: ED PROVIDER on 06-29-2022 Thin prep Papanicolaou smear with manual screening 1+ [facility] Thin prep Papanicolaou smear with manual screening 2 5-15 [facility] XR CHEST 2V FRONTAL/LATon [facility] CBC W Auto Differential pane l (Bld)on 06-01-2022 Anisocytosis Ql (Bld) Present [facility] Basophils (Bld) [#/Vol] 0.00 10*3/uL <0.11 k/uL [facility] Basophils/100 WBC (Bld) 0.0 % [facility] Differential cell count method Nom (Bld) Manual [facility] Eosinophils (Bld) [#/Vol] 0.72 10*3/uL High <0.46 k/uL [facility] Eosinophils/100 WBC (Bld) 1.0 % [facility] Erythrocyte distribution width (RBC) [Ratio] 17.1 % High 11.5 - 15.0 % [facility] Hematocrit (Bld) [Volume fraction] 33.7 % Low 36.0 - 46.0 % [facility] Hemoglobin (Bld) [Mass/Vol] 10.3 g/dL Low 11.5 - 15.5 g/dL [facility] Lymphocytes (Bld) [#/Vol] 62.24 10*3/uL High 1.00 - 4.00 k/uL [facility] Lymphocytes/100 WBC (Bld) 87.0 % [facility] MCH (RBC) [Entitic mass] 27.6 pg 26.0 - 34.0 pg [facility] MCHC (RBC) [Mass/Vol] 30.6 g/dL 30.5 - 36.0 g/dL [facility] MCV (RBC) [Entitic vol] 90.3 fL 80.0 - 100.0 fL [facility] Monocytes (Bld) [#/Vol] 0.72 10*3/uL <0.87 k/uL [facility] Monocytes/100 WBC (Bld) 1.0 % [facility] Neutrophils (Bld) [#/Vol] 7.87 10*3/uL High 1.45 - 7.50 k/uL [facility] Neutrophils/100 WBC (Bld) 11.0 % [facility] Nucleated RBC (Bld) [#/Vol] <0.01 k/uL [facility] Nucleated RBC/100 WBC (Bld) [Ratio] 0.0 /100 WBC [facility] Ovalocytes LM Ql (Bld) Few Cl [facility] Platelet mean volume (Bld) [Entitic vol] 9.1 fL 9.0 - 12.7 fL [facility] Platelets (Bld) [#/Vol] 472 10*3/uL High 150 - 400 k/uL [facility] Platelets Estimate (Bld) [#/Vol] Increased [facility] Polychromasia LM Ql (Bld) Slight [facility] RBC (Bld) [#/Vol] 3.73 10*6/uL Low 3.90 - 5.2 0 m/uL [facility] Red Cell Morph Reviewed: see result s of individual morphologies [facility] WBC (Bld) [#/Vol] 71.54 10*3/uL High 3.70 - 11.00 k/uL [facility] Comprehensive metabolic 2000 panelon 06-01-2022 Albumin [Mass/Vol] 2.9 g/dL Low 3.9 - 4.9 g/dL [facility] ALP [Catalytic activity/Vol] 64 U/L 34 - 123 U/L [facility] ALT [Catalytic activity/Vol] 7 U/L 7 - 38 U/L [facility] Anion gap [Moles/Vol] 8 mmol/L Low 9 - 18 mmol/L [facility] AST [Catalytic activity/Vol] 20 U/L 13 - 35 U/L [facility] Bilirubin [Mass/Vol] 0.3 mg/dL 0.2 - 1 .3 mg/dL [facility] Calcium [Mass/Vol] 8.6 mg/dL 8.5 - 10. 2 mg/dL [facility] Chloride [Moles/Vol] 97 mmol/L 97 - 10 5 mmol/L [facility] CO2 [Moles/Vol] 28 mmol/L 22 - 30 mmol/L [facility] Creatinine [Mass/Vol] 1.34 mg/dL High 0.58 - 0.96 mg/dL [facility] Estimated Glomerular Filtration Rate 40 mL/min/1.73m Low >=60 mL/min/1.73 m [facility] Glucose [Mass/Vol] 115 mg/dL High 74 - 99 mg/dL [facility] Potassium [Moles/Vol] 4.8 mmol/L 3.7 - 5.1 mmol/L [facility] Protein [Mass/Vol] 5.5 g/dL Low 6.3 - 8.0 g/dL [facility] Sodium [Moles/Vol] 133 mmol/L Low 136 - 144 mmol/L [facility] Urea nitrogen [Mass/Vol] 32 mg/dL High 7 - 21 mg/dL [facility] REFERRAL FOR ADDITIONAL BIOM ARKER AND MOLECULAR TESTINGon 06-01-2022 APMOLR [facility] Absolute lymphocyte countOrd ered By: Dr. Hester on 05-31-2022 Lymphocytes Auto (Unsp spec) [#/Vol] 48.04 10*3/uL 0.83-4.51 [facility] Basophil percentageOrdered B y: Dr. Hester on 05-31-2022 Basophil percentage 103 mg/dL 74-106 [facility] Basophil percentage 137 mmol/L 136-145 [facility] Basophil percentage 5.0 mmol/L 3.5-5.1 [facility] Basophil percentage 98 mmol/L 98-107 [facility] Basophils (Bld) [#/Vol] 58.1 10*3/uL 4.4-11.0 [facility] Basophils (Bld) [#/Vol] 8.4 10*3/uL 2.0-7.7 [facility] Basophils/100 WBC (Bld) 0.2 % 0-1 [facility] Basophils/100 WBC (Bld) 14.4 % 47-70 [facility] Basophils/100 WBC (Bld) 0.8 % 0-5 [facility] Chloride [Moles/Vol] 98 mmol/L 98-107 [facility] Eosinophils/100 WBC (Bld) 0.8 % 0-5 [facility] Glucose [Mass/Vol] 103 mg/dL 74-106 [facility] Comment on above: Fasting Glucose resu lt from 100 to 125 mg/dL suggests IMPAIRED HOMEOSTASIS per A.D.A. criteria. Neutrophils (Bld) [#/Vol] 8.4 10*3/uL 2.0-7.7 [facility] Neutrophils/100 WBC (Bld) 14.4 % 47-70 [facility] Potassium [Moles/Vol] 5.0 mmol/L 3.5-5.1 [facility] Sodium [Moles/Vol] 137 mmol/L 136-145 [facility] WBC (Bld) [#/Vol] 58.1 10*3/uL 4.4-11.0 [facility] Comment on above: CRITICAL VALUE VERIF IED. CALLED TO AKKLAVG19/02/23 0948 Kennedi Buchanan.RESULTS READ BACK BY SAME . Blood erythrocytes count (nu mber/volume)Ordered By: Dr. Hester on 05-31-2022 RBC (Bld) [#/Vol] 3.51 10*6/uL 4.2-5.4 [facility] Blood hemoglobin measurement (mass/volume)Ordered By: Dr. Hester on 05-31-2022 Hemoglobin (Bld) [Mass/Vol] 9.7 g/dL 12.0-15.0 [facility] Blood lymphocytes/100 leukoc ytesOrdered By: Dr. Hester on 05-31-2022 Lymphocytes/100 WBC (Bld) 82.7 % 19-41 [facility] Blood manual differential co mment interpretation (narrative result)Ordered By: Dr. Hester on 05-31-2022 Manual differential comment Joe (Bld) [Interp] SCANNED [facility] Blood monocytes/100 leukocyt esOrdered By: Dr. Hester on 05-31-2022 Monocytes/100 WBC (Bld) 1.6 % 0-10 [facility] Blood platelet mean volumeOr dered By: Dr. Hester on 05-31-2022 Platelet mean volume (Bld) [Entitic vol] 8.8 fL 6.2-12.0 [facility] Determination of erythrocyte mean corpuscular volume (MCV)Ordered By: Dr. Hester on 05-31-2022 MCV (RBC) [Entitic vol] 90.3 fL 81-99 [facility] Hematocrit Auto (Bld) [Volum e fraction]Ordered By: Dr. Hester on 05-31-2022 Hematocrit (Bld) [Volume fraction] 31.7 % 37-47 [facility] Laboratory - Chemistry and C hemistry - challengeOrdered By: Dr. Hester on 05-31-2022 CO2 [Moles/Vol] 32.0 mmol/L 21.0-32.0 [facility] Urea nitrogen/Creatinine [Mass ratio] 23.9 mg/mg 10-20 [facility] Laboratory - Hematology and Cell countsOrdered By: Dr. Hester on 05-31-2022 Erythrocyte distribution width (RBC) [Entitic vol] 54.0 fL 35.1-43.9 [facility] Erythrocyte distribution width (RBC) [Ratio] 16.8 % 11.6-14.6 [facility] Immature granulocytes/100 WBC (Bld) 0.300 % 0.0-0.9 [facility] Comment on above: IG% - Immature Granu locytes (promyelocytes, myelocytes and metamyelocytes) > 1% indicates that a LEFT SHIFT is Present. MCH (RBC) [Entitic mass] 27.6 pg 27.0-32.0 [facility] Nucleated RBC/100 WBC (Bld) [Ratio] 0 % 0-5 [facility] MCHC Auto (RBC) [Mass/Vol]Or dered By: Dr. Hester on 05-31-2022 MCHC (RBC) [Mass/Vol] 30.6 g/dL 32-36 [facility] No Panel InformationOrdered By: Dr. Hester on 05-31-2022 Estimated Creatinine Clearance Calc 31.25 ml/min [facility] Estimated GFR (MDRD) Amer 57 mL/min >60 [facility] Comment on above: GFR Calc Estimated GFR (MDRD) Non-Af Amer 47 mL/min >60 [facility] Comment on above: Non- GFR Calc 27.6 pg 27.0-32.0 [facility] 16.8 % 11.6-14.6 [facility] 54.0 fl 35.1-43.9 [facility] 0.300 % 0.0-0.9 [facility] 0 % 0-5 [facility] 47 mL/min >60 [facility] 57 mL/min >60 [facility] 31.25 ml/min [facility] 23.9 RATIO 10-20 [facility] 32.0 mmol/L 21.0-32.0 [facility] Platelets bldOrdered By: Dr. Hester on 05-31-2022 Platelets (Bld) [#/Vol] 399 10*3/uL 150-450 [facility] RBC morphologyOrdered By: Dr Mikhail Hester on 05-31-2022 RBC morphology finding Nom (Bld) NORM C+C NORMAL NORM C&C [facility] Review by pathologistOrdered By: Dr. Hester on 05-31-2022 Pathologist review Joe (Unsp spec) [Interp] Reviewed [facility] Comment on above: Previous reported re sult: Kristel tran Edited by: WEI on 05/31/22:1304Absolute lymphocytosis suggestive of low grade lympho-proliferative disorder.Normocytic anemia.Clinical correlation is necessary. Rao Perez M.D. 05/31/22 AMENDED REPORT 05/31/22 1304 PATH REV previously reported as: Kristel tran Serum or plasma calcium pedro urement (mass/volume)Ordered By: Dr. Hester on 05-31-2022 Calcium [Mass/Vol] 8.0 mg/dL 8.5-10.1 [facility] Serum or plasma creatinine m easurement (mass/volume)Ordered By: Dr. Hester on 05-31-2022 Creatinine [Mass/Vol] 1.17 mg/dL 0.55-1.02 [facility] Comment on above: The validity of the calculated GFR & GFRAA in patients over 70 years has not been determined. Clinical correlation is essential. Serum or plasma urea nitroge n measurement (mass/volume)Ordered By: Dr. Hester on 05-31-2022 Urea nitrogen [Mass/Vol] 28 mg/dL 7-18 [facility] Thin prep Papanicolaou smear with manual screeningOrdered By: Dr. Hester on 05-31-2022 Thin prep Papanicolaou smear with manual screening 7 5-15 [facility] Basophil percentageOrdered B y: Dr. Hester on 05-30-2022 Basophil percentage 4.7 g/dL 6.4-8.2 [facility] Basophil percentage 0.30 mg/dL 0.20-1.00 [facility] Bilirubin [Mass/Vol] 0.30 mg/dL 0.20-1.00 [facility] Comment on above: For patients on eltr ombopag therapy, use of Dimension [place] TBIL is not recommended. Protein [Mass/Vol] 4.7 g/dL 6.4-8.2 [facility] Laboratory - Chemistry and C hemistry - challengeOrdered By: Dr. Hester on 05-30-2022 ALP [Catalytic activity/Vol] 51 U/L [facility] ALT [Catalytic activity/Vol] 10 U/L [facility] Globulin (S) [Mass/Vol] 2.8 g/dL 2.2-4.2 [facility] No Panel InformationOrdered By: Dr. Hester on 05-30-2022 2.8 g/dL 2.2-4.2 [facility] 51 U/L [facility] 10 U/L [facility] Serum or plasma albumin pedro urement (mass/volume)Ordered By: Dr. Hester on 05-30-2022 Albumin [Mass/Vol] 1.9 g/dL 3.2-5.0 [facility] Serum or plasma albumin/glob ulin mass ratioOrdered By: Dr. Hester on 05-30-2022 Albumin/Globulin [Mass ratio] 0.7 {ratio} 0.9-2.4 [facility] Smudge cell detectionOrdered By: Dr. Hester on 05-30-2022 Smudge cells LM Ql (Bld) 2+ [facility] Thin prep Papanicolaou smear with manual screeningOrdered By: Dr. Hester on 05-30-2022 Thin prep Papanicolaou smear with manual screening 19 U/L 15-37 [facility] Hypochromatic red blood cell detectionOrdered By: Dr. Hester on 05-29-2022 Hypochromia Ql (Bld) 2+ [facility] INR in Blood by Coagulation assayOrdered By: Dr. Oliva on 05-28-2022 INR Coag (Bld) [Relative time] 1.1 {INR} [facility] Laboratory - CoagulationOrde red By: Dr. Oliva on 05-28-2022 PT Coag (PPP) [Time] 13.6 s 11.7-14.9 [facility] No Panel InformationOrdered By: Dr. Oliva on 05-28-2022 13.6 SECONDS 11.7-14.9 [facility] Blood violetta cells detection b y light microscopyOrdered By: Dr. Oliva on 05-26-2022 [place] cells LM Ql (Bld) 1+ [facility] Blood platelet adequacy dete ction by light microscopyOrdered By: Dr. Oliva on 05-26-2022 Platelets LM Ql (Bld) ADEQUATE ADEQ [facility] Blood poikilocytosis detecti on by light microscopyOrdered By: Dr. Oliva on 05-26-2022 Poikilocytosis LM Ql (Bld) 1+ [facility] Blood polychromasia detectio n by light microscopyOrdered By: Dr. Oliva on 05-26-2022 Polychromasia LM Ql (Bld) RARE [facility] Laboratory - Hematology and Cell countsOrdered By: Dr. Oliva on 05-26-2022 Anisocytosis Ql (Bld) 1+ [facility] No Panel InformationOrdered By: Dr. Oliva on 05-26-2022 1+ [facility] Ovalocyte detectionOrdered B y: Dr. Oliva on 05-26-2022 Ovalocytes LM Ql (Bld) 1+ [facility] Teardrop cell detectionOrder ed By: Dr. Oliva on 05-26-2022 Dacrocytes LM Ql (Bld) RARE [facility] Absolute lymphocyte countOrd ered By: Dr. Palacios on 05-24-2022 Lymphocytes Auto (Unsp spec) [#/Vol] 52.11 10*3/uL 0.83-4.51 [facility] Basophil percentageOrdered B y: Dr. Lee on 05-24-2022 Basophil percentage 419 U/L [facility] LDH [Catalytic activity/Vol] 419 U/L [facility] Basophil percentageOrdered B y: Dr. Palacios on 05-24-2022 Basophils/100 WBC (Bld) 0.2 % 0-1 [facility] Bilirubin [Mass/Vol] 0.30 mg/dL 0.20-1.00 [facility] Comment on above: For patients on eltr ombopag therapy, use of Dimension [place] TBIL is not recommended. Chloride [Moles/Vol] 99 mmol/L 98-107 [facility] Eosinophils/100 WBC (Bld) 1.0 % 0-5 [facility] Glucose [Mass/Vol] 102 mg/dL 74-106 [facility] Comment on above: Fasting Glucose resu lt from 100 to 125 mg/dL suggests IMPAIRED HOMEOSTASIS per A.D.A. criteria. Neutrophils (Bld) [#/Vol] 7.8 10*3/uL 2.0-7.7 [facility] Neutrophils/100 WBC (Bld) 12.6 % 47-70 [facility] Potassium [Moles/Vol] 3.5 mmol/L 3.5-5.1 [facility] Protein [Mass/Vol] 5.6 g/dL 6.4-8.2 [facility] Sodium [Moles/Vol] 135 mmol/L 136-145 [facility] WBC (Bld) [#/Vol] 62.1 10*3/uL 4.4-11.0 [facility] Comment on above: CRITICAL VALUE VERIF IED. [facility]05/24/22 1326 Kennedi Buchanan.RESULTS READ BACK BY SAME. Blood eosinophils/100 leukoc ytesOrdered By: Dr. Palacios on 05-24-2022 Eosinophils/100 WBC (Bld) 0.59 % 0-5 [facility] Blood erythrocytes count (nu mber/volume)Ordered By: Dr. Palacios on 05-24-2022 RBC (Bld) [#/Vol] 3.66 10*6/uL 4.2-5.4 [facility] Blood hemoglobin measurement (mass/volume)Ordered By: Dr. Palacios on 05-24-2022 Hemoglobin (Bld) [Mass/Vol] 10.0 g/dL 12.0-15.0 [facility] Blood lymphocytes/100 leukoc ytesOrdered By: Dr. Palacios on 05-24-2022 Lymphocytes/100 WBC (Bld) 84.0 % 19-41 [facility] Blood manual differential co mment interpretation (narrative result)Ordered By: Dr. Palacios on 05-24-2022 Manual differential comment Joe (Bld) [Interp] SCANNED [facility] Blood monocytes/100 leukocyt esOrdered By: Dr. Palacios on 05-24-2022 Monocytes/100 WBC (Bld) 1.7 % 0-10 [facility] Blood platelet mean volumeOr dered By: Dr. Palacios on 05-24-2022 Platelet mean volume (Bld) [Entitic vol] 9.1 fL 6.2-12.0 [facility] Body fluid appearanceOrdered By: Dr. Palacios on 05-24-2022 Appearance (Body fld) CLOUDY [facility] Body fluid color determinati onOrdered By: Dr. Palacios on 05-24-2022 Color (Body fld) RED [facility] Body fluid erythrocytes coun t (number/volume)Ordered By: Dr. Palacios on 05-24-2022 RBC (Body fld) [#/Vol] 51 10*3/uL [facility] Body fluid lactate dehydroge nase measurement (enzymatic activity/volume) by pyruvateOrdered By: Dr. Palacios on 05-24-2022 LDH Pyruvate to lactate reaction (Body fld) [Catalytic activity/Vol] 496 Units/l Not Establ. [facility] Body fluid leukocytes count (number/volume)Ordered By: Dr. Palacios on 05-24-2022 WBC (Body fld) [#/Vol] 0.795 10*3/uL [facility] Body fluid lymphocytes/100 l eukocytesOrdered By: Dr. Palacios on 05-24-2022 Lymphocytes/100 WBC (Body fld) 47 % [facility] Body fluid macrophage countO rdered By: Dr. Palacios on 05-24-2022 Macrophages (Body fld) [#/Vol] 2 % [facility] Body fluid mesothelial cell percentageOrdered By: Dr. Palacios on 05-24-2022 Mesothelial cells/100 WBC (Body fld) 28 % [facility] Body fluid protein measureme nt (mass/volume)Ordered By: Dr. Palacios on 05-24-2022 Protein (Body fld) [Mass/Vol] 3.1 g/dL Not Establ. [facility] Body fluid segmented neutrop hils count (number/volume)Ordered By: Dr. Palacios on 05-24-2022 Segmented neutrophils (Body fld) [#/Vol] 15 % [facility] Determination of erythrocyte mean corpuscular volume (MCV)Ordered By: Dr. Palacios on 05-24-2022 MCV (RBC) [Entitic vol] 92.6 fL 81-99 [facility] Hematocrit Auto (Bld) [Volum e fraction]Ordered By: Dr. Palacios on 05-24-2022 Hematocrit (Bld) [Volume fraction] 33.9 % 37-47 [facility] Laboratory - Chemistry and C hemistry - challengeOrdered By: Dr. Palacios on 05-24-2022 ALP [Catalytic activity/Vol] 71 U/L 45-117 [facility] ALT [Catalytic activity/Vol] 15 U/L 13-56 [facility] CO2 [Moles/Vol] 26.0 mmol/L 21.0-32.0 [facility] Globulin (S) [Mass/Vol] 3.6 g/dL 2.2-4.2 [facility] Urea nitrogen/Creatinine [Mass ratio] 14.3 mg/mg 10-20 [facility] Laboratory - Chemistry and C hemistry - challengeOrdered By: Dr. Lee on 05-24-2022 Magnesium [Mass/Vol] 2.0 mg/dL 1.6-2.6 [facility] Laboratory - Hematology and Cell countsOrdered By: Dr. Palacios on 05-24-2022 Erythrocyte distribution width (RBC) [Entitic vol] 52.1 fL 35.1-43.9 [facility] Erythrocyte distribution width (RBC) [Ratio] 15.9 % 11.6-14.6 [facility] Immature granulocytes/100 WBC (Bld) 0.500 % 0.0-0.9 [facility] Comment on above: IG% - Immature Granu locytes (promyelocytes, myelocytes and metamyelocytes) > 1% indicates that a LEFT SHIFT is Present. MCH (RBC) [Entitic mass] 27.3 pg 27.0-32.0 [facility] Nucleated RBC/100 WBC (Bld) [Ratio] 0 % 0-5 [facility] MCHC Auto (RBC) [Mass/Vol]Or dered By: Dr. Palacios on 05-24-2022 MCHC (RBC) [Mass/Vol] 29.5 g/dL 32-36 [facility] Mononuclear cells Auto (Body fld) [#/Vol]Ordered By: Dr. Palacios on 05-24-2022 Mononuclear cells (Body fld) [#/Vol] 0.685 10*3/uL [facility] No Panel InformationOrdered By: Dr. Palacios on 05-24-2022 Body Fluid Comment 2 SEE COMMENT [facility] Body Fluid Mononuclear WBCs (%) 86.1 % [facility] Body Fluid Pathologist Comment Reviewed [facility] Comment on above: Previous reported re sult: May follow Edited by: WEI on 05/25/22:1032Negative for malignant cells.Bloody specimen.Please also refer to cytology report [id number].Rao Perez M.D. 05/25/22 AMENDED REPORT 05/25/22 1032 PATH COMM/BF previously reported as: May follow Body Fluid Polynuclear WBCs (#) 0.110 10^3/uL [facility] Body Fluid Polynuclear WBCs (%) 13.9 % [facility] 13.9 % [facility] 86.1 % [facility] 0.110 10^3/uL [facility] Reviewed [facility] SEE COMMENT [facility] Body Fluid Glucose 109 mg/dL 40-70 [facility] 109 mg/dL 40-70 [facility] Estimated Creatinine Clearance Calc 52.57 ml/min [facility] Estimated GFR (MDRD) Amer 39 mL/min >60 [facility] Comment on above: GFR Calc Estimated GFR (MDRD) Non-Af Amer 33 mL/min >60 [facility] Comment on above: Non- GFR Calc No Panel InformationOrdered By: Dr. Lee on 05-24-2022 2.0 mg/dL 1.6-2.6 [facility] Platelets bldOrdered By: Dr. Palacios on 05-24-2022 Platelets (Bld) [#/Vol] 396 10*3/uL 150-450 [facility] Review by pathologistOrdered By: Dr. Palacios on 05-24-2022 Pathologist review Joe (Unsp spec) [Interp] May marc [facility] Serum or plasma albumin pedro urement (mass/volume)Ordered By: Dr. Palacios on 05-24-2022 Albumin [Mass/Vol] 2.0 g/dL 3.2-5.0 [facility] Serum or plasma albumin/glob ulin mass ratioOrdered By: Dr. Palacios on 05-24-2022 Albumin/Globulin [Mass ratio] 0.6 {ratio} 0.9-2.4 [facility] Serum or plasma calcium pedro urement (mass/volume)Ordered By: Dr. Palacios on 05-24-2022 Calcium [Mass/Vol] 8.1 mg/dL 8.5-10.1 [facility] Serum or plasma creatinine m easurement (mass/volume)Ordered By: Dr. Palacios on 05-24-2022 Creatinine [Mass/Vol] 1.61 mg/dL 0.55-1.02 [facility] Comment on above: The validity of the calculated GFR & GFRAA in patients over 70 years has not been determined. Clinical correlation is essential. Serum or plasma urea nitroge n measurement (mass/volume)Ordered By: Dr. Palacios on 05-24-2022 Urea nitrogen [Mass/Vol] 23 mg/dL 7-18 [facility] Smudge cell detectionOrdered By: Dr. Palacios on 05-24-2022 Smudge cells LM Ql (Bld) 3+ [facility] Specimen source identificati on of body fluidOrdered By: Dr. Palacios on 05-24-2022 Specimen source Nom (Body fld) THORACENTESIS [facility] Thin prep Papanicolaou smear with manual screeningOrdered By: Dr. Palacios on 05-24-2022 Thin prep Papanicolaou smear with manual screening 8 % [facility] Thin prep Papanicolaou smear with manual screening 29 U/L 15-37 [facility] Thin prep Papanicolaou smear with manual screening 10 5-15 [facility] Total cell countOrdered By: Dr. Palacios on 05-24-2022 Cells counted Molgen (Bld/Tiss) [#] 0.932 10^3/ul 0.000-0.000 [facility] Comment on above: This is the Total Nu mber of Nucleated Cell Types in the Body Fluid. Absolute lymphocyte countOrd ered By: Dr. Clarke on 05-20-2022 Lymphocytes Auto (Unsp spec) [#/Vol] 47.54 10*3/uL 0.83-4.51 [facility] Basophil percentageOrdered B y: Dr. Clarke on 05-20-2022 Basophil percentage 121 mg/dL 74-106 [facility] Basophil percentage 5.4 g/dL 6.4-8.2 [facility] Basophil percentage 0.40 mg/dL 0.20-1.00 [facility] Basophil percentage 137 mmol/L 136-145 [facility] Basophil percentage 3.4 mmol/L 3.5-5.1 [facility] Basophil percentage 103 mmol/L 98-107 [facility] Basophils (Bld) [#/Vol] 58.3 10*3/uL 4.4-11.0 [facility] Basophils (Bld) [#/Vol] 9.1 10*3/uL 2.0-7.7 [facility] Basophils/100 WBC (Bld) 0.2 % 0-1 [facility] Basophils/100 WBC (Bld) 15.7 % 47-70 [facility] Basophils/100 WBC (Bld) 0.5 % 0-5 [facility] Bilirubin [Mass/Vol] 0.40 mg/dL 0.20-1.00 [facility] Comment on above: For patients on eltr ombopag therapy, use of Dimension [place] TBIL is not recommended. Chloride [Moles/Vol] 103 mmol/L 98-107 [facility] Eosinophils/100 WBC (Bld) 0.5 % 0-5 [facility] Glucose [Mass/Vol] 121 mg/dL 74-106 [facility] Comment on above: Fasting Glucose resu lt from 100 to 125 mg/dL suggests IMPAIRED HOMEOSTASIS per A.D.A. criteria. Neutrophils (Bld) [#/Vol] 9.1 10*3/uL 2.0-7.7 [facility] Neutrophils/100 WBC (Bld) 15.7 % 47-70 [facility] Potassium [Moles/Vol] 3.4 mmol/L 3.5-5.1 [facility] Protein [Mass/Vol] 5.4 g/dL 6.4-8.2 [facility] Sodium [Moles/Vol] 137 mmol/L 136-145 [facility] WBC (Bld) [#/Vol] 58.3 10*3/uL 4.4-11.0 [facility] Blood erythrocytes count (nu mber/volume)Ordered By: Dr. Clarke on 05-20-2022 RBC (Bld) [#/Vol] 3.76 10*6/uL 4.2-5.4 [facility] Blood hemoglobin measurement (mass/volume)Ordered By: Dr. Clarke on 05-20-2022 Hemoglobin (Bld) [Mass/Vol] 10.5 g/dL 12.0-15.0 [facility] Blood lymphocytes/100 leukoc ytesOrdered By: Dr. Clarke on 05-20-2022 Lymphocytes/100 WBC (Bld) 81.5 % 19-41 [facility] Blood monocytes/100 leukocyt esOrdered By: Dr. Clarke on 05-20-2022 Monocytes/100 WBC (Bld) 1.7 % 0-10 [facility] Blood platelet mean volumeOr dered By: Dr. Clarke on 05-20-2022 Platelet mean volume (Bld) [Entitic vol] 9.6 fL 6.2-12.0 [facility] Blood vacuolated neutrophils detection by light microscopyOrdered By: Dr. Clarke on 05-20-2022 Neutrophils.vacuolated LM Ql (Bld) 2+ [facility] Determination of erythrocyte mean corpuscular volume (MCV)Ordered By: Dr. Clarke on 05-20-2022 MCV (RBC) [Entitic vol] 92.8 fL 81-99 [facility] Hematocrit Auto (Bld) [Volum e fraction]Ordered By: Dr. Clarke on 05-20-2022 Hematocrit (Bld) [Volume fraction] 34.9 % 37-47 [facility] Laboratory - Chemistry and C hemistry - challengeOrdered By: Dr. Clarke on 05-20-2022 ALP [Catalytic activity/Vol] 75 U/L 45-117 [facility] ALT [Catalytic activity/Vol] 12 U/L 13-56 [facility] CO2 [Moles/Vol] 25.0 mmol/L 21.0-32.0 [facility] Globulin (S) [Mass/Vol] 3.6 g/dL 2.2-4.2 [facility] Natriuretic peptide B (Bld) [Mass/Vol] 90.4 pg/mL 0-100 [facility] Urea nitrogen/Creatinine [Mass ratio] 15.0 mg/mg 10-20 [facility] Laboratory - Hematology and Cell countsOrdered By: Dr. Clarke on 05-20-2022 Erythrocyte distribution width (RBC) [Entitic vol] 50.3 fL 35.1-43.9 [facility] Erythrocyte distribution width (RBC) [Ratio] 15.6 % 11.6-14.6 [facility] Immature granulocytes/100 WBC (Bld) 0.400 % 0.0-0.9 [facility] Comment on above: IG% - Immature Granu locytes (promyelocytes, myelocytes and metamyelocytes) > 1% indicates that a LEFT SHIFT is Present. MCH (RBC) [Entitic mass] 27.9 pg 27.0-32.0 [facility] Nucleated RBC/100 WBC (Bld) [Ratio] 0 % 0-5 [facility] MCHC Auto (RBC) [Mass/Vol]Or dered By: Dr. Clarke on 05-20-2022 MCHC (RBC) [Mass/Vol] 30.1 g/dL 32-36 [facility] No Panel InformationOrdered By: Dr. Clarke on 05-20-2022 Estimated Creatinine Clearance Calc 32.98 ml/min [facility] Estimated GFR (MDRD) Amer 59 mL/min >60 [facility] Comment on above: GFR Calc Estimated GFR (MDRD) Non-Af Amer 49 mL/min >60 [facility] Comment on above: Non- GFR Calc Troponin I High Sensitivity 21 pg/mL 3.0-54.0 [facility] Comment on above: Please Note: New [place] t Units and Gender Specific Reference Ranges. For more information see Policy Stat Procedure [place] High Sensitivity Troponin (TNIH) and attachments. 27.9 pg 27.0-32.0 [facility] 15.6 % 11.6-14.6 [facility] 50.3 fl 35.1-43.9 [facility] 0.400 % 0.0-0.9 [facility] 0 % 0-5 [facility] 49 mL/min >60 [facility] 59 mL/min >60 [facility] 32.98 ml/min [facility] 15.0 RATIO 10-20 [facility] 3.6 g/dL 2.2-4.2 [facility] 21 pg/mL 3.0-54.0 [facility] 75 U/L 45-117 [facility] 12 U/L 13-56 [facility] 25.0 mmol/L 21.0-32.0 [facility] 90.4 pg/mL 0-100 [facility] Platelets bldOrdered By: Dr. Clakre on 05-20-2022 Platelets (Bld) [#/Vol] 365 10*3/uL 150-450 [facility] Review by pathologistOrdered By: Dr. Clarke on 05-20-2022 Pathologist review Joe (Unsp spec) [Interp] Kristel tran [facility] Pathologist review Joe (Unsp spec) [Interp] Reviewed [facility] Comment on above: Previous reported re sult: Kristel tran Edited by: RGOOD on 05/22/22:0931Absolute lymphocytosis suggestive of low grade lympho-proliferative disorder.Normocytic anemia.Clinical correlation is necessary. Rao Perez M.D. 05/22/22 AMENDED REPORT 05/22/22 0931 PATH REV previously reported as: Kristel tran Serum or plasma albumin pedro urement (mass/volume)Ordered By: Dr. Clarke on 05-20-2022 Albumin [Mass/Vol] 1.8 g/dL 3.2-5.0 [facility] Serum or plasma albumin/glob ulin mass ratioOrdered By: Dr. Clarke on 05-20-2022 Albumin/Globulin [Mass ratio] 0.5 {ratio} 0.9-2.4 [facility] Serum or plasma calcium pedro urement (mass/volume)Ordered By: Dr. Clarke on 05-20-2022 Calcium [Mass/Vol] 7.8 mg/dL 8.5-10.1 [facility] Serum or plasma creatinine m easurement (mass/volume)Ordered By: Dr. Clarke on 05-20-2022 Creatinine [Mass/Vol] 1.13 mg/dL 0.55-1.02 [facility] Comment on above: The validity of the calculated GFR & GFRAA in patients over 70 years has not been determined. Clinical correlation is essential. Serum or plasma urea nitroge n measurement (mass/volume)Ordered By: Dr. Clarke on 05-20-2022 Urea nitrogen [Mass/Vol] 17 mg/dL 7-18 [facility] Thin prep Papanicolaou smear with manual screeningOrdered By: Dr. Clarke on 05-20-2022 Thin prep Papanicolaou smear with manual screening 29 U/L 15-37 [facility] Thin prep Papanicolaou smear with manual screening 9 5-15 [facility] Laboratory - Microbiology an d Antimicrobial susceptibilityOrdered By: Dr. Dueñas on 05-03-2022 Bacteria identified Cx Nom (Bld) No growth in 5 days. [facility] No Panel InformationOrdered By: Dr. Dueñas on 05-03-2022 No growth in 5 days. [facility] Absolute lymphocyte countOrd ered By: Dr. Das on 04-30-2022 Lymphocytes Auto (Unsp spec) [#/Vol] 57.39 10*3/uL 0.83-4.51 [facility] Basophil percentageOrdered B y: Dr. Das on 04-30-2022 Basophils (Bld) [#/Vol] 69.6 10*3/uL 4.4-11.0 [facility] Basophils (Bld) [#/Vol] 10.3 10*3/uL 2.0-7.7 [facility] Basophils/100 WBC (Bld) 0.2 % 0-1 [facility] Basophils/100 WBC (Bld) 14.8 % 47-70 [facility] Basophils/100 WBC (Bld) 0.8 % 0-5 [facility] Eosinophils/100 WBC (Bld) 0.8 % 0-5 [facility] Neutrophils (Bld) [#/Vol] 10.3 10*3/uL 2.0-7.7 [facility] Neutrophils/100 WBC (Bld) 14.8 % 47-70 [facility] WBC (Bld) [#/Vol] 69.6 10*3/uL 4.4-11.0 [facility] Comment on above: CRITICAL VALUE VERIF IED. CALLED TO AMANDA FINNEY (MS3)04/30/22 0820 Nikolas Conway.RESULTS READ BACK BY SAME. Blood erythrocytes count (nu mber/volume)Ordered By: Dr. Das on 04-30-2022 RBC (Bld) [#/Vol] 4.01 10*6/uL 4.2-5.4 [facility] Blood hemoglobin measurement (mass/volume)Ordered By: Dr. Das on 04-30-2022 Hemoglobin (Bld) [Mass/Vol] 10.9 g/dL 12.0-15.0 [facility] Blood lymphocytes/100 leukoc ytesOrdered By: Dr. Das on 04-30-2022 Lymphocytes/100 WBC (Bld) 82.5 % 19-41 [facility] Blood manual differential co mment interpretation (narrative result)Ordered By: Dr. Das on 04-30-2022 Manual differential comment Joe (Bld) [Interp] COMMENT [facility] Comment on above: LYMPHOCYTOSIS.LEUKOC YTOSIS. Blood monocytes/[address] leukocyt esOrdered [address]: [address] Das on 04-30-2022 Monocytes/100 WBC (Bld) 1.1 % 0-10 [facility] Blood platelet mean volumeOr dered By: Dr. Das on 04-30-2022 Platelet mean volume (Bld) [Entitic vol] 9.1 fL 6.2-12.0 [facility] Determination of erythrocyte mean corpuscular volume (MCV)Ordered By: Dr. Das on 04-30-2022 MCV (RBC) [Entitic vol] 91.5 fL 81-99 [facility] Hematocrit Auto (Bld) [Volum e fraction]Ordered By: Dr. Das on 04-30-2022 Hematocrit (Bld) [Volume fraction] 36.7 % 37-47 [facility] Laboratory - Hematology and Cell countsOrdered By: Dr. Das on 04-30-2022 Erythrocyte distribution width (RBC) [Entitic vol] 46.5 fL 35.1-43.9 [facility] Erythrocyte distribution width (RBC) [Ratio] 14.1 % 11.6-14.6 [facility] Immature granulocytes/100 WBC (Bld) 0.600 % 0.0-0.9 [facility] Comment on above: IG% - Immature Granu locytes (promyelocytes, myelocytes and metamyelocytes) > 1% indicates that a LEFT SHIFT is Present. MCH (RBC) [Entitic mass] 27.2 pg 27.0-32.0 [facility] Nucleated RBC/100 WBC (Bld) [Ratio] 0 % 0-5 [facility] MCHC Auto (RBC) [Mass/Vol]Or dered By: Dr. Das on 04-30-2022 MCHC (RBC) [Mass/Vol] 29.7 g/dL 32-36 [facility] No Panel InformationOrdered By: Dr. Das on 04-30-2022 27.2 pg 27.0-32.0 [facility] 14.1 % 11.6-14.6 [facility] 46.5 fl 35.1-43.9 [facility] 0.600 % 0.0-0.9 [facility] 0 % 0-5 [facility] Platelets bldOrdered By: Dr. Das on 04-30-2022 Platelets (Bld) [#/Vol] 726 10*3/uL 150-450 [facility] Review by pathologistOrdered By: Dr. Das on 04-30-2022 Pathologist review Joe (Unsp spec) [Interp] Reviewed [facility] Comment on above: Previous reported re sult: Kristel tran Edited by: RGOOD on 04/30/22:1406Marked Lymphocytosis consistent with lymphoproliferative disorder.Normocytic anemia.Thrombocytosis.Clinical correlation necessary.Keshav Werner D.O. 04/30/22 AMENDED REPORT 04/30/22 1406 PATH REV previously reported as: Kristel tran Smudge cell detectionOrdered By: Dr. Das on 04-29-2022 Smudge cells LM Ql (Bld) 2+ [facility] Absolute lymphocyte countOrd ered By: Dr. Dueñas on 04-28-2022 Lymphocytes Auto (Unsp spec) [#/Vol] 41.32 10*3/uL 0.83-4.51 [facility] Basophil percentageOrdered B y: Dr. Dueñas on 04-28-2022 Basophil percentage 118 mg/dL 74-106 [facility] Basophil percentage 5.5 g/dL 6.4-8.2 [facility] Basophil percentage 0.30 mg/dL 0.20-1.00 [facility] Basophil percentage 136 mmol/L 136-145 [facility] Basophil percentage 3.4 mmol/L 3.5-5.1 [facility] Basophil percentage 108 mmol/L 98-107 [facility] Basophils/100 WBC (Bld) 0.1 % 0-1 [facility] Bilirubin [Mass/Vol] 0.30 mg/dL 0.20-1.00 [facility] Comment on above: For patients on eltr ombopag therapy, use of Dimension [place] TBIL is not recommended. Chloride [Moles/Vol] 108 mmol/L 98-107 [facility] Eosinophils/100 WBC (Bld) 0.4 % 0-5 [facility] Glucose [Mass/Vol] 118 mg/dL 74-106 [facility] Comment on above: Fasting Glucose resu lt from 100 to 125 mg/dL suggests IMPAIRED HOMEOSTASIS per A.D.A. criteria. Neutrophils (Bld) [#/Vol] 11.0 10*3/uL 2.0-7.7 [facility] Neutrophils/100 WBC (Bld) 20.5 % 47-70 [facility] Potassium [Moles/Vol] 3.4 mmol/L 3.5-5.1 [facility] Protein [Mass/Vol] 5.5 g/dL 6.4-8.2 [facility] Sodium [Moles/Vol] 136 mmol/L 136-145 [facility] WBC (Bld) [#/Vol] 53.6 10*3/uL 4.4-11.0 [facility] Blood erythrocytes count (nu mber/volume)Ordered By: Dr. Dueñas on 04-28-2022 RBC (Bld) [#/Vol] 3.21 10*6/uL 4.2-5.4 [facility] Blood hemoglobin measurement (mass/volume)Ordered By: Dr. Dueñas on 04-28-2022 Hemoglobin (Bld) [Mass/Vol] 9.0 g/dL 12.0-15.0 [facility] Blood lymphocytes/100 leukoc ytesOrdered By: Dr. Dueñas on 04-28-2022 Lymphocytes/100 WBC (Bld) 77.1 % 19-41 [facility] Blood manual differential co mment interpretation (narrative result)Ordered By: Dr. Dueñas on 04-28-2022 Manual differential comment Joe (Bld) [Interp] SCANNED [facility] Comment on above: LYMPHOCYTOSIS Blood monocytes/100 leukocyt esOrdered By: Dr. Dueñas on 04-28-2022 Monocytes/100 WBC (Bld) 1.5 % 0-10 [facility] Blood platelet mean volumeOr dered By: Dr. Dueñas on 04-28-2022 Platelet mean volume (Bld) [Entitic vol] 9.4 fL 6.2-12.0 [facility] Determination of erythrocyte mean corpuscular volume (MCV)Ordered By: Dr. Dueñas on 04-28-2022 MCV (RBC) [Entitic vol] 89.7 fL 81-99 [facility] Direct bilirubinOrdered By: Dr. Dueñas on 04-28-2022 Bilirubin.direct [Mass/Vol] 0.11 mg/dL 0.00-0.30 [facility] Hematocrit Auto (Bld) [Volum e fraction]Ordered By: Dr. Dueñas on 04-28-2022 Hematocrit (Bld) [Volume fraction] 28.8 % 37-47 [facility] INR in Blood by Coagulation assayOrdered By: Dr. Dueñas on 04-28-2022 INR Coag (Bld) [Relative time] 1.3 {INR} [facility] Laboratory - Chemistry and C hemistry - challengeOrdered By: Dr. Dueñas on 04-28-2022 ALP [Catalytic activity/Vol] 71 U/L 45-117 [facility] ALT [Catalytic activity/Vol] 9 U/L 13-56 [facility] CO2 [Moles/Vol] 18.0 mmol/L 21.0-32.0 [facility] Globulin (S) [Mass/Vol] 3.8 g/dL 2.2-4.2 [facility] Urea nitrogen/Creatinine [Mass ratio] 21.4 mg/mg 10- [facility] Laboratory - CoagulationOrde red By: Dr. Dueñas on 04-28-2022 aPTT Coag (Bld) [Time] 48.6 s 24.1-36.2 [facility] PT Coag (PPP) [Time] 15.6 s 11.7-14.9 [facility] Laboratory - Hematology and Cell countsOrdered By: Dr. Dueñas on 04-28-2022 Erythrocyte distribution width (RBC) [Entitic vol] 45.3 fL 35.1-43.9 [facility] Erythrocyte distribution width (RBC) [Ratio] 13.9 % 11.6-14.6 [facility] Immature granulocytes/100 WBC (Bld) 0.400 % 0.0-0.9 [facility] Comment on above: IG% - Immature Granu locytes (promyelocytes, myelocytes and metamyelocytes) > 1% indicates that a LEFT SHIFT is Present. MCH (RBC) [Entitic mass] 28.0 pg 27.0-32.0 [facility] Nucleated RBC/100 WBC (Bld) [Ratio] 0 % 0-5 [facility] MCHC Auto (RBC) [Mass/Vol]Or dered By: Dr. Dueñas on 04-28-2022 MCHC (RBC) [Mass/Vol] 31.3 g/dL 32-36 [facility] No Panel InformationOrdered By: Dr. Dueñas on 04-28-2022 Estimated Creatinine Clearance Calc 32.50 ml/min [facility] Estimated GFR (MDRD) Amer 60 mL/min >60 [facility] Comment on above: GFR Calc Estimated GFR (MDRD) Non-Af Amer 49 mL/min >60 [facility] Comment on above: Non- GFR Calc 15.6 SECONDS 11.7-14.9 [facility] 48.6 Seconds 24.1-36.2 [facility] 49 mL/min >60 [facility] 60 mL/min >60 [facility] 32.50 ml/min [facility] 21.4 RATIO 10-20 [facility] 3.8 g/dL 2.2-4.2 [facility] 71 U/L 45-117 [facility] 9 U/L 13-56 [facility] 18.0 mmol/L 21.0-32.0 [facility] Platelets bldOrdered By: Dr. Dueñas on 04-28-2022 Platelets (Bld) [#/Vol] 574 10*3/uL 150-450 [facility] Review by pathologistOrdered By: Dr. Dueñas on 04-28-2022 Pathologist review Joe (Unsp spec) [Interp] July [facility] Serum or plasma albumin pedro urement (mass/volume)Ordered By: Dr. Dueñas on 04-28-2022 Albumin [Mass/Vol] 1.7 g/dL 3.2-5.0 [facility] Serum or plasma calcium pedro urement (mass/volume)Ordered By: Dr. Dueñas on 04-28-2022 Calcium [Mass/Vol] 8.1 mg/dL 8.5-10.1 [facility] Serum or plasma creatinine m easurement (mass/volume)Ordered By: Dr. Dueñas on 04-28-2022 Creatinine [Mass/Vol] 1.12 mg/dL 0.55-1.02 [facility] Comment on above: The validity of the calculated GFR & GFRAA in patients over 70 years has not been determined. Clinical correlation is essential. Serum or plasma urea nitroge n measurement (mass/volume)Ordered By: Dr. Dueñas on 04-28-2022 Urea nitrogen [Mass/Vol] 24 mg/dL 7-18 [facility] Thin prep Papanicolaou smear with manual screeningOrdered By: Dr. Dueñas on 04-28-2022 Thin prep Papanicolaou smear with manual screening 18 U/L 15-37 [facility] Thin prep Papanicolaou smear with manual screening 10 5-15 [facility] BODY FLUID CELL COUNTon 04-02 Clarity (Unsp spec) Slightly Cloudy Abnormal Clear [facility] Clarity (Unsp spec) Clear Clear [facility] RBC Manual cnt (Body fld) [#/Vol] 3000 /uL High <2,000 /uL [facility] Specimen source Nom (Body fld) ABDOMINAL FLUID. [facility] WBC Manual cnt (Body fld) [#/Vol] 1531 /uL High <1,000 /uL [facility] Laboratory - Specimen inform ationon 04-27-2022 Color (Body fld) [facility] PROTEIN BFLon 04-27-2022 Protein (Body fld) [Mass/Vol] 3.9 g/dL See Comment g/dL [facility] US PARACENTESIS (POC) DDI US E ONLYon 04-27-2022 [facility] CA 125 Don 04-19-2022 Cancer Ag 125 Qn 474 [arb'U]/mL High <39 U/mL [facility] CA 19-9 Don 04-19-2022 Cancer Ag 19-9 Qn 4.5 [arb'U]/mL <36.0 U/mL [facility] CNPNon 04-19-2022 CNPN Telephone (AGGYNONPO B) -- ASHLEY ALCANTAR ([id number]) 1940 F Date Time Provider Department 04/19/22 BRITTANI ANTONIO During your visit today, we recorded the following information about you: Vida Johnston 04/19/2022 1:13 PM Signed Spoke to Daughter and she stated that they got a second opinion with [facility] Dr. Borden and said that he wanted to do chemo before surgery and they agree with him. Asked for surgery and any associated appts. Vida Jonhston 04/19/22 Allergies As of Date: 04/19/2022 Noted Allergy Reaction KEFLEX (CEPHALEXIN) 12/22/2021 2 - Rash Comments: Mouth blisters, thrush Date Reviewed: 04/19/2022 Reviewed by: Marisa Handy - Fully Assessed Reason for Visit: Appointment [186] Prescriptions as of 04/19/2022 - vit C/E/cuperic/zinc/lutein (EYE MULTIVIT-LUTEIN,C-E-CU-ZN, ORAL) Take by mouth. - cyanocobalamin, vitamin B-12, (VITAMIN B-12 ORAL) Take by mouth. - ferrous sulfate 325 mg (65 mg iron) tablet Take 1 tablet by mouth once daily. - lisinopril (PRINIVIL) 20 mg tablet Take 1.5 tablets by mouth once daily. - aspirin 81 mg chewable tablet Take 1 tablet by mouth once daily. - magnesium oxide 200 mg magnesium tab Take 200 mg by mouth once daily. - ascorbic acid, vitamin C, 500 mg cap Take 500 mg by mouth once daily. - Zinc Acetate, Oral, 25 mg (zinc) cap Take 25 mg by mouth once daily. Facility-Administered Medications as of 04/19/2022 - perflutren lipid microspheres 1.3 mL in NaCl (PF) 0.9% 10 mL injection (DEFINITY) - sodium chloride 0.9 % (flush) 10 mL (BD POSIFLUSH) - perflutren lipid microspheres 1.3 mL in NaCl (PF) 0.9% 10 mL injection (DEFINITY) - sodium chloride 0.9 % (flush) 10 mL (BD POSIFLUSH) Problem List As Of Date 04/19/2022 Noted Resolved Nonrheumatic aortic valve stenosis [I35.0] 10/11/2021 Leukocytosis [D72.829] 12/13/2021 CLL (chronic lymphocytic leukemia) (HCC) [C91.1*12/14/2021 Primary hypertension [I10] 12/14/2021 Chronic diastolic heart failure (HCC) [I50.32] 12/14/2021 Nonrheumatic mitral valve regurgitation [I34.0] 12/14/2021 Nonrheumatic aortic valve insufficiency [I35.1] 12/14/2021 Nonrheumatic tricuspid valve regurgitation [I36*12/14/2021 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 Encounter Status:Closed by VIDA JOHNSTON on 04/19/22 [facility] CBC W Auto Differential pane l (Bld)on 04-18-2022 Basophils (Bld) [#/Vol] 0.00 10*3/uL <0.11 k/uL [facility] Basophils/100 WBC (Bld) 0.0 % [facility] Differential cell count method Nom (Bld) Manual [facility] Eosinophils (Bld) [#/Vol] 0.49 10*3/uL High <0.46 k/uL [facility] Eosinophils/100 WBC (Bld) 1.0 % [facility] Erythrocyte distribution width (RBC) [Ratio] 13.2 % 11.5 - 15.0 % [facility] Hematocrit (Bld) [Volume fraction] 34.5 % Low 36.0 - 46.0 % [facility] Hemoglobin (Bld) [Mass/Vol] 10.5 g/dL Low 11.5 - 15.5 g/dL [facility] Lymphocytes (Bld) [#/Vol] 39.81 10*3/uL High 1.00 - 4.00 k/uL [facility] Lymphocytes/100 WBC (Bld) 81.0 % [facility] MCH (RBC) [Entitic mass] 27.9 pg 26.0 - 34.0 pg [facility] MCHC (RBC) [Mass/Vol] 30.4 g/dL Low 30.5 - 36.0 g/dL [facility] MCV (RBC) [Entitic vol] 91.8 fL 80.0 - 100.0 fL [facility] Monocytes (Bld) [#/Vol] 0.49 10*3/uL <0.87 k/uL [facility] Monocytes/100 WBC (Bld) 1.0 % [facility] Neutrophils (Bld) [#/Vol] 8.36 10*3/uL High 1.45 - 7.50 k/uL [facility] Neutrophils/100 WBC (Bld) 17.0 % [facility] Nucleated RBC (Bld) [#/Vol] <0.01 k/uL [facility] Nucleated RBC/100 WBC (Bld) [Ratio] 0.0 /100 WBC [facility] Platelet mean volume (Bld) [Entitic vol] 9.8 fL 9.0 - 12.7 fL [facility] Platelets (Bld) [#/Vol] 528 10*3/uL High 150 - 400 k/uL [facility] Platelets Estimate (Bld) [#/Vol] Increased [facility] RBC (Bld) [#/Vol] 3.76 10*6/uL Low 3.90 - 5.2 0 m/uL [facility] Red Cell Morph Reviewed: unremarkable [facility] WBC (Bld) [#/Vol] 49.15 10*3/uL High 3.70 - 11.00 k/uL [facility] Basophils (Bld) [#/Vol] 0.00 10*3/uL Normal <0.11 [facility] Comment on above: Order Comment: Speci men Type: BLOOD SPECIMEN Ordering Facility: [facility] Address: [address] [place] [address] Performed By: #### 5 7021-8 #### [facility] CLIA [id number] [address] Basophils/100 WBC (Bld) 0.0 % Normal A [facility] Comment on above: Order Comment: Speci men Type: BLOOD SPECIMEN Ordering Facility: [facility] Address: [address] [place] [address] Performed By: #### 5 7021-8 #### [facility] CLIA [id number] [address] Differential cell count method Nom (Bld) Manual Normal [facility] Comment on above: Order Comment: Speci men Type: BLOOD SPECIMEN Ordering Facility: [facility] Address: [address] [place] [address] Performed By: #### 5 7021-8 #### [facility] CLIA [id number] [address] [facility] Eosinophils (Bld) [#/Vol] 0.49 10*3/uL High <0.46 [facility] Comment on above: Order Comment: Speci men Type: BLOOD SPECIMEN Ordering Facility: [facility] Address: [address] [address] Performed By: #### 5 7021-8 #### [facility] CLIA [id number] [address] [address] Eosinophils/100 WBC (Bld) 1.0 % Normal [facility] Comment on above: Order Comment: Speci men Type: BLOOD SPECIMEN Ordering Facility: [facility] Address: [address] [address] Performed By: #### 5 7021-8 #### [facility] CLIA [id number] [address] [place] Erythrocyte distribution width (RBC) [Ratio] 13.2 % Normal 11.5-15.0 [facility] Comment on above: Order Comment: Speci men Type: BLOOD SPECIMEN Ordering Facility: [facility] Address: [address] [address] Performed By: #### 5 7021-8 #### [facility] CLIA [id number] [address] [place] Hematocrit (Bld) [Volume fraction] 34.5 % Low 36.0-46.0 [facility] Comment on above: Order Comment: Speci men Type: BLOOD SPECIMEN Ordering Facility: [facility] Address: [address] [place] [address] Performed By: #### 5 7021-8 #### [facility] CLIA [id number] [address] [place] Hemoglobin (Bld) [Mass/Vol] 10.5 g/dL Low 11.5-15.5 [facility] Comment on above: Order Comment: Speci men Type: BLOOD SPECIMEN Ordering Facility: [facility] Address: [address] [place] [address] Performed By: #### 5 7021-8 #### [facility] CLIA [id number] [address] [place] Lymphocytes (Bld) [#/Vol] 39.81 10*3/uL High 1.00-4.00 [facility] Comment on above: Order Comment: Speci men Type: BLOOD SPECIMEN Ordering Facility: [facility] Address: [address] [place] [address] Performed By: #### 5 7021-8 #### [facility] CLIA [id number] [address] [place] Lymphocytes/100 WBC (Bld) 81.0 % Normal [facility] Comment on above: Order Comment: Speci men Type: BLOOD SPECIMEN Ordering Facility: [facility] Address: [address] [address] Performed By: #### 5 7021-8 #### [facility] CLIA [id number] [address] MCH (RBC) [Entitic mass] 27.9 pg Normal 26.0-34.0 [facility] Comment on above: Order Comment: Speci men Type: BLOOD SPECIMEN Ordering Facility: [facility] Address: [address] [address] Performed By: #### 5 7021-8 #### [facility] CLIA [id number] [address] MCHC (RBC) [Mass/Vol] 30.4 g/dL Low 30.5-36.0 [facility] Comment on above: Order Comment: Speci men Type: BLOOD SPECIMEN Ordering Facility: [facility] Address: [address] [address] Performed By: #### 5 7021-8 #### [facility] CLIA [id number] [address] MCV (RBC) [Entitic vol] 91.8 fL Normal 80.0-100.0 A [facility] Comment on above: Order Comment: Speci men Type: BLOOD SPECIMEN Ordering Facility: [facility] Address: [address] [address] Performed By: #### 5 7021-8 #### [facility] CLIA [id number] [address] Monocytes (Bld) [#/Vol] 0.49 10*3/uL Normal <0.87 [facility] Comment on above: Order Comment: Speci men Type: BLOOD SPECIMEN Ordering Facility: [facility] Address: [address] [place] [address] Performed By: #### 5 7021-8 #### [facility] CLIA [id number] [address] [place] Monocytes/100 WBC (Bld) 1.0 % Normal A [facility] Comment on above: Order Comment: Speci men Type: BLOOD SPECIMEN Ordering Facility: [facility] Address: [address] [place] [address] Performed By: #### 5 7021-8 #### [facility] CLIA [id number] [address] [place] Neutrophils (Bld) [#/Vol] 8.36 10*3/uL High 1.45-7.50 [facility] Comment on above: Order Comment: Speci men Type: BLOOD SPECIMEN Ordering Facility: [facility] Address: [address] [place] [address] Performed By: #### 5 7021-8 #### [facility] CLIA [id number] [address] Neutrophils/100 WBC (Bld) 17.0 % Normal [facility] Comment on above: Order Comment: Speci men Type: BLOOD SPECIMEN Ordering Facility: [facility] Address: [address] [place] [address] Result Comment: Diff erential done with albumin Performed By: #### 5 7021-8 #### [facility] CLIA [id number] [address] [place] Nucleated RBC (Bld) [#/Vol] 10*3/uL Normal <0.01 [facility] Comment on above: Order Comment: Speci men Type: BLOOD SPECIMEN Ordering Facility: [facility] Address: [address] [place] [address] Performed By: #### 5 7021-8 #### [facility] CLIA [id number] [address] [place] Nucleated RBC/100 WBC (Bld) [Ratio] 0.0 /100 WBC Normal [facility] Comment on above: Order Comment: Speci men Type: BLOOD SPECIMEN Ordering Facility: [facility] Address: [address] [place] [address] Performed By: #### 5 7021-8 #### [facility] CLIA [id number] [address] Platelet mean volume (Bld) [Entitic vol] 9.8 fL Normal 9.0-12.7 [facility] Comment on above: Order Comment: Speci men Type: BLOOD SPECIMEN Ordering Facility: [facility] Address: [address] [place] [address] Performed By: #### 5 7021-8 #### [facility] CLIA [id number] [address] [place] Platelets (Bld) [#/Vol] 528 10*3/uL High 150-400 [facility] Comment on above: Order Comment: Speci men Type: BLOOD SPECIMEN Ordering Facility: [facility] Address: [address] [place] [address] Performed By: #### 5 7021-8 #### [facility] CLIA [id number] [address] Platelets Estimate (Bld) [#/Vol] Increased Normal [facility] Comment on above: Order Comment: Speci men Type: BLOOD SPECIMEN Ordering Facility: [facility] Address: [address] [place] [address] Performed By: #### 5 7021-8 #### [facility] CLIA [id number] [address] [place] RBC (Bld) [#/Vol] 3.76 10*6/uL Low 3.90-5.20 [facility] Comment on above: Order Comment: Speci men Type: BLOOD SPECIMEN Ordering Facility: [facility] Address: [address] [place] [address] Performed By: #### 5 7021-8 #### [facility] CLIA [id number] [address] RED CELL MORPH Reviewed: unremarkable Normal [facility] Comment on above: Order Comment: Speci men Type: BLOOD SPECIMEN Ordering Facility: [facility] Address: [address] [address] Performed By: #### 5 7021-8 #### [facility] CLIA [id number] [address] OF [facility] WBC (Bld) [#/Vol] 49.15 10*3/uL High 3.70-11.00 [facility] Comment on above: Order Comment: Zeus stanton Type: BLOOD SPECIMEN Ordering Facility: [facility] Address: [address] [address] Result Comment: Revi ewed Performed By: #### 5 7021-8 #### [facility] CLIA [id number] [address] CEA BLDon 04-18-2022 Carcinoembryonic Ag [Mass/Vol] 1.6 ng/mL <3.0 ng/mL [facility] CEA SerPl-mCncon 04-18-2022 Carcinoembryonic Ag [Mass/Vol] 1.6 ng/mL Normal <3.0 [facility] Comment on above: Order Comment: Specarnoldo stanton Type: BLOOD SPECIMEN Ordering Facility: [facility] Address: [address] [place] [address] Result Comment: This is a [employer] assay using chemiluminescence test methodology. Results determined by different manufacturers may not be comparable Performed By: #### 2 039-6, 25062-0 #### [facility] CLIA [id number] [address] [place] [address] OF [facility] CNOVSPon 04-18-2022 CNOVSP Visit (SP) Office (AGGYNONPOB) -- ASHLEY ALCANTAR ([id number]) 1940 F Date Time Provider Department 04/18/22 11:30 AM BRITTANI ANTONIO During your visit today, we recorded the following information about you: Temperature Pulse Blood pressure Weight 98.5 degrees 80/minute 102/64 53.6 kg Height 1.486 m Brittani Antonio MD 04/23/2022 5:44 PM Signed GYNECOLOGIC ONCOLOGY HISTORY AND PHYSICAL EXAMINATION SERVICE DATE: 04/18/22 SERVICE TIME: 3:30 PM PRIMARY CARE PHYSICIAN: Vern Bernardo MD CHIEF COMPLAINT/HISTORY OF PRESENT ILLNESS/ROS: CC: Pelvic mass Referring Provider: Emily Jacobs MD HPI: Patient noted lower abdominal pain in bilateral lower quadrants in January 2022 which continued and worsened into March leading toevaluation with her PCP and general surgeon which led to CT reviewed below. She was also told she had bilateral inguinal hernias. Taking tylenol extra strength 1-2 times daily for her abdominal pain. She reports occasional nausea and loss of appetite but nothing sustained. Denies bloating or increasing abdominal girth. Denies changes in bowel or bladder habits, no constipation or diarrhea. The history is provided by the patient and a caregiver (patient's daughter). ROS: Review of Systems Constitutional: Negative for activity change, diaphoresis, fever and unexpected weight change. HENT: Negative for ear pain, hearing loss and mouth sores. Eyes: Negative for pain and visual disturbance. Respiratory: Negative for cough, chest tightness and shortness of breath. Cardiovascular: Negative for chest pain and palpitations. Gastrointestinal: Positive for abdominal pain. Negative for constipation, diarrhea, nausea and vomiting. Endocrine: Negative for cold intolerance and heat intolerance. Genitourinary: Positive for pelvic pain. Negative for dysuria, frequency, hematuria, urgency, vaginal bleeding, vaginal discharge and vaginal pain. Musculoskeletal: Negative for arthralgias and myalgias. Skin: Negative for rash and wound. Neurological: Negative for dizziness, syncope, light-headedness and headaches. Psychiatric/Behavioral: Negative for agitation. The patient is not nervous/anxious. 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 HRT use: No. History of abnormal pap: Denies Last pap: >15 years ago Last HPV: >15 years ago Last mammogram: Maybe >10 years ago Last colonoscopy: Has never had -- no history of CRC screening, denies melena or bloody stools FAMILY HISTORY Problem Relation Age of Onset other (ALS) Mother other (CHF) Mother Emphysema Father Heart Sister Heart Attack Sister Tuberculosis Sister Tuberculosis Sister Colon Cancer Sister Diabetes Sister Diabetes Brother Diabetes Brother Diabetes Brother other (atrial fibrillation) Child Social History Socioeconomic History Marital status: Tobacco Use Smoking status: Former Packs/day: 0.50 Years: 25.00 Pack years: 12.5 Types: Cigarettes Quit date: 06/03/2014 Years since quittin.8 Smokeless tobacco: Never Vaping Use Vaping Use: Never used Substance and Sexual Activity Alcohol use: Never Drug use: Never Social History Narrative Lives by herself but her daughter and niece are her neighbor in the [place] area. MEDICATIONS / ALLERGIES: Current Outpatient Medications Medication Sig vit C/E/cuperic/zinc/lutein (EYE MULTIVIT-LUTEIN,C-E-CU-ZN, ORAL) Take by mouth. cyanocobalamin, vitamin B-12, (VITAMIN B-12 ORAL) Take by mouth. ferrous sulfate 325 mg (65 mg iron) tablet Take 1 tablet by mouth once daily. lisinopril (PRINIVIL) 20 mg tablet Take 1.5 tablets by mouth once daily. (Patient taking differently: Take 40 mg by mouth once daily.) aspirin 81 mg chewable tablet Take 1 tablet by mouth once daily. magnesium oxide 200 mg magnesium tab Take 200 mg by mouth once daily. ascorbic acid, vitamin C, 500 mg cap Take 500 (more content not included)... Normal [facility] Cancer Ag125 SerPl-aCncon Cancer Ag 125 Qn 474 [arb'U]/mL High <39 [facility] Comment on above: Order Comment: Zeus stanton Type: BLOOD SPECIMEN Ordering Facility: [facility] Address: [address] [place] [id number] Result Comment: CA 1 25 test methodology used is the Electrochemiluminescence Immunoassay by [employer]. Results obtained with different methods or kits cannot be used interchangeably. The reference interval is based on the 95th percentile of 240 apparently healthy premenopausal and postmenopausal women. At a cutoff value of 65 U/mL, the test sensitivity to distinguish ovarian carcinoma (FIGO stage I to IV) versus benign gynecological disease is 79%, with a specificity of 82%. Reference: Cancer Antigen 125 (CA 125 II) [package insert V 1.0 [place]]. [employer], [place], [place] (December 2014) Please note testing method change from Siemens Centaur to [employer] electrochemiluminescence immunoassay on 03/06/2022. Parallel testing using both instruments was performed on all patient specimens between 03/06/2022-05/29/2022. The Siemens Centaur value for this patient sample was 443.7 Performed By: #### 1 0334-1 #### [facility] CLIA [id number] [address] Cancer Ag19-9 SerPl-aCncon 0 04-18-2022 Cancer Ag 19-9 Qn 4.5 [arb'U]/mL Normal <36.0 [facility] Comment on above: Order Comment: Zeus stanton Type: BLOOD SPECIMEN Ordering Facility: [facility] Address: [address] [place] [phone] Result Comment: Can er antigen 19-9 test is used as an aid in monitoring response to treatment or recurrence in patients with established pancreatic, hepatobiliary, or gastrointestinal malignancies. Clinical correlation is required. Please note testing method change from Siemens Centaur to [employer] electrochemiluminescence immunoassay on 03/06/2022. Parallel testing using both instruments was performed on all patient specimens between 03/06/2022-05/29/2022. The [employer] Centaur value for this patient sample was <1.20 Performed By: #### 2 4108-3 #### [facility] CLIA [id number] [address] [place] Renal function 2000 panelon 04-18-2022 Albumin [Mass/Vol] 3.4 g/dL Low 3.9 - 4.9 g/dL [facility] Anion gap [Moles/Vol] 14 mmol/L 9 - 18 mmol/L [facility] Calcium [Mass/Vol] 9.2 mg/dL 8.5 - 10. 2 mg/dL [facility] Chloride [Moles/Vol] 104 mmol/L 97 - 10 5 mmol/L [facility] CO2 [Moles/Vol] 19 mmol/L Low 22 - 30 mmol/L [facility] Creatinine [Mass/Vol] 1.12 mg/dL High 0.58 - 0.96 mg/dL [facility] Estimated Glomerular Filtration Rate 49 mL/min/1.73m Low >=60 mL/min/1.73 m [facility] Glucose [Mass/Vol] 103 mg/dL High 74 - 99 mg/dL [facility] Phosphate [Mass/Vol] 4.1 mg/dL 2.7 - 4 .8 mg/dL [facility] Potassium [Moles/Vol] 3.9 mmol/L 3.7 - 5.1 mmol/L [facility] Sodium [Moles/Vol] 137 mmol/L 136 - 144 mmol/L [facility] Urea nitrogen [Mass/Vol] 20 mg/dL 7 - 21 mg/dL [facility] Albumin [Mass/Vol] 3.4 g/dL Low 3.9-4.9 [facility] Comment on above: Order Comment: Speci men Type: BLOOD SPECIMEN Ordering Facility: [facility] Address: [address] [address] Performed By: #### 2 039-6, 07352-2 #### [facility] CLIA [id number] [address] OF [facility] Anion gap [Moles/Vol] 14 mmol/L Normal 9-18 [facility] Comment on above: Order Comment: Speci men Type: BLOOD SPECIMEN Ordering Facility: [facility] Address: [address] [address] Performed By: #### 2 039-6, 35886-8 #### [facility] CLIA [id number] [address] [place] Calcium [Mass/Vol] 9.2 mg/dL Normal 8.5-10.2 [facility] Comment on above: Order Comment: Speci men Type: BLOOD SPECIMEN Ordering Facility: [facility] Address: [address] [place] [address] Performed By: #### 2 039-6, 68433-9 #### [facility] CLIA [id number] [address] [place] Chloride [Moles/Vol] 104 mmol/L Normal 97-105 [facility] Comment on above: Order Comment: Speci men Type: BLOOD SPECIMEN Ordering Facility: [facility] Address: [address] [place] [address] Performed By: #### 2 039-6, 30480-5 #### [facility] CLIA [id number] [address] CO2 [Moles/Vol] 19 mmol/L Low 22-30 [facility] Comment on above: Order Comment: Speci men Type: BLOOD SPECIMEN Ordering Facility: [facility] Address: [address] [place] [address] Performed By: #### 2 039-6, 85350-4 #### [facility] CLIA [id number] [address] [place] Creatinine [Mass/Vol] 1.12 mg/dL High 0.58-0.96 [facility] Comment on above: Order Comment: Speci men Type: BLOOD SPECIMEN Ordering Facility: [facility] Address: [address] [place] [address] Performed By: #### 2 039-6, 69833-9 #### [facility] CLIA [id number] [address] [place] ESTIMATED GLOMERULAR FILTRATION RATE 49 mL/min/1.73m??? Low >=60 [facility] Comment on above: Order Comment: Speci men Type: BLOOD SPECIMEN Ordering Facility: [facility] Address: [address] [address] Result Comment: Irina mated Glomerular Filtration Rate (eGFR) is calculated using the 2020 CKD-EPI creatinine equation. This equation utilizes serum creatinine, sex, and age as parameters. The creatinine assay has traceable calibration to isotope dilution-mass spectrometry. Refer to KDIGO guidelines for clinical interpretation. In patients with unstable renal function, e.g. those with acute kidney injury, the eGFR may not accurately reflect actual GFR. Performed By: #### 2 039-6, 73884-7 #### [facility] CLIA [id number] 1 [place] [address] [place] Glucose [Mass/Vol] 103 mg/dL High 74-99 [facility] Comment on above: Order Comment: Zeus stanton Type: BLOOD SPECIMEN Ordering Facility: [facility] Address: [address] [place] [address] Result Comment: The [place] Diabetes Association (ADA) provides guidance for cutoff values for fasting glucose and random glucose. The ADA defines fasting as no caloric intake for at least 8 hours. Fasting plasma glucose results between 100 to 125 mg/dL indicate increased risk for diabetes (prediabetes). Fasting plasma glucose results greater than or equal to 126 mg/dL meet the criteria for diagnosis of diabetes. In the absence of unequivocal hyperglycemia, results should be confirmed by repeat testing. In a patient with classic symptoms of hyperglycemia or hyperglycemic crisis, random plasma glucose results greater than or equal to 200 mg/dL meet the criteria for diagnosis of diabetes. Reference: Standards of Medical Care in Diabetes 2016, [place] Diabetes Association. Diabetes Care. 2016.39(Suppl 1). Performed By: #### 2 039-6, 33226-7 #### [facility] CLIA [id number] 1 [place] [address] [place] Phosphate [Mass/Vol] 4.1 mg/dL Normal 2.7-4.8 [facility] Comment on above: Order Comment: Zeus stanton Type: BLOOD SPECIMEN Ordering Facility: [facility] Address: [address] [place], [place] [id number] Performed By: #### 2 039-6, 88746-7 #### [facility] CLIA [id number] [address] [place] Potassium [Moles/Vol] 3.9 mmol/L Normal 3.7-5.1 [facility] Comment on above: Order Comment: Speci men Type: BLOOD SPECIMEN Ordering Facility: [facility] Address: [address] [place] [address] Performed By: #### 2 039-6, 73552-5 #### [facility] CLIA [id number] [address] [place] Sodium [Moles/Vol] 137 mmol/L Normal 136-144 [facility] Comment on above: Order Comment: Speci men Type: BLOOD SPECIMEN Ordering Facility: [facility] Address: [address] [place] [address] Performed By: #### 2 039-6, 43295-0 #### [facility] CLIA [id number] [address] STATES OF [facility] Urea nitrogen [Mass/Vol] 20 mg/dL Normal 7-21 [facility] Comment on above: Order Comment: Speci men Type: BLOOD SPECIMEN Ordering Facility: [facility] Address: [address] [place] [address] Performed By: #### 2 039-6, 31706-5 #### [facility] CLIA [id number] [address] TYPE AND SCREEN,30 DAYon ABO A [facility] HIstorical Ab Scr Status Negative [facility] Rh Nom (Bld) Positive [facility] ABO A Normal [facility] Comment on above: Order Comment: Speci men Type: BLOOD SPECIMEN Ordering Facility: [facility] Address: [address] [place] [address] Performed By: #### T SCR30 #### [facility] CLIA [id number] [address] HISTORICAL AB SCR STATUS Negative Normal [facility] Comment on above: Order Comment: Speci men Type: BLOOD SPECIMEN Ordering Facility: [facility] Address: [address] [place] [address] Performed By: #### T SCR30 #### [facility] CLIA [id number] 1 [place] [address] [place] Rh Nom (Bld) Positive Normal [facility] Comment on above: Order Comment: Speci men Type: BLOOD SPECIMEN Ordering Facility: [facility] Address: [address] [address] Performed By: #### T SCR30 #### [facility] CLIA [id number] [address] [place] Basophil percentageOrdered B y: Dr. Morse on 04-16-2022 Basophil percentage 121 mg/dL 74-106 [facility] Basophil percentage 137 mmol/L 136-145 [facility] Basophil percentage 3.8 mmol/L 3.5-5.1 [facility] Basophil percentage 107 mmol/L 98-107 [facility] Chloride [Moles/Vol] 107 mmol/L 98-107 [facility] Glucose [Mass/Vol] 121 mg/dL 74-106 [facility] Comment on above: Fasting Glucose resu lt from 100 to 125 mg/dL suggests IMPAIRED HOMEOSTASIS per A.D.A. criteria. Potassium [Moles/Vol] 3.8 mmol/L 3.5-5.1 [facility] Sodium [Moles/Vol] 137 mmol/L 136-145 [facility] [facility] - Chemistry and C hemistry - challengeOrdered By: Dr. Morse on 04-16-2022 CO2 [Moles/Vol] 21.0 mmol/L 21.0-32.0 [facility] Urea nitrogen/Creatinine [Mass ratio] 15.3 mg/mg 10-20 [facility] No Panel InformationOrdered By: Dr. Morse on 04-16-2022 Estimated GFR (MDRD) Amer 53 mL/min >60 [facility] Comment on above: GFR Calc Estimated GFR (MDRD) Non-Af Amer 44 mL/min >60 [facility] Comment on above: Non- GFR Calc 44 mL/min >60 [facility] 53 mL/min >60 [facility] 15.3 RATIO 10-20 [facility] 21.0 mmol/L 21.0-32.0 [facility] Serum or plasma calcium pedro urement (mass/volume)Ordered By: Dr. Morse on 04-16-2022 Calcium [Mass/Vol] 8.7 mg/dL 8.5-10.1 [facility] Serum or plasma creatinine m easurement (mass/volume)Ordered By: Dr. Morse on 04-16-2022 Creatinine [Mass/Vol] 1.24 mg/dL 0.55-1.02 [facility] Comment on above: The validity of the calculated GFR & GFRAA in patients over 70 years has not been determined. Clinical correlation is essential. Serum or plasma urea nitroge n measurement (mass/volume)Ordered By: Dr. Morse on 04-16-2022 Urea nitrogen [Mass/Vol] 19 mg/dL 7-18 [facility] Thin prep Papanicolaou smear with manual screeningOrdered By: Dr. Morse on 04-16-2022 Thin prep Papanicolaou smear with manual screening 9 5-15 [facility] Basophil percentageOrdered B y: Dr. Morse on 04-06-2022 Basophil percentage 3.7 mmol/L 3.5-5.1 [facility] Potassium [Moles/Vol] 3.7 mmol/L 3.5-5.1 [facility] No Panel InformationOrdered By: Dr. Morse on 04-05-2022 CA 125 Antigen Serial Monitor Not Reportable [facility] Not Reportable [facility] Serum or plasma cancer antig en 125 (CA-125) measurement (units/volume)Ordered By: Dr. Morse on 04-05-2022 Cancer Ag 125 Qn 290.0 [arb'U]/mL 0.0-38.1 [facility] Comment on above: [facility] [employer] El ectrochemiluminescence Immunoassay(ECLIA)Values obtained with different assay methods or kits cannotbe used interchangeably. Results cannot be interpreted asabsolute evidence of the presence or absence of malignantdisease.Performed at: [employer] [id number] Director: Yousuf Myers PhD, Phone: [phone] Absolute lymphocyte countOrd ered By: Dr. Morse on 04-04-2022 Lymphocytes Auto (Unsp spec) [#/Vol] 23.94 10*3/uL 0.83-4.51 [facility] Basophil percentageOrdered B y: Dr. Morse on 04-04-2022 Basophil percentage 107 mg/dL 74-106 [facility] Basophil percentage 6.7 g/dL 6.4-8.2 [facility] Basophil percentage 0.70 mg/dL 0.20-1.00 [facility] Basophil percentage 141 mmol/L 136-145 [facility] Basophil percentage 3.0 mmol/L 3.5-5.1 [facility] Basophil percentage 109 mmol/L 98-107 [facility] Basophils (Bld) [#/Vol] 31.0 10*3/uL 4.4-11.0 [facility] Basophils (Bld) [#/Vol] 5.9 10*3/uL 2.0-7.7 [facility] Basophils/100 WBC (Bld) 0.3 % 0-1 [facility] Basophils/100 WBC (Bld) 19.0 % 47-70 [facility] Basophils/100 WBC (Bld) 0.5 % 0-5 [facility] Bilirubin [Mass/Vol] 0.70 mg/dL 0.20-1.00 [facility] Comment on above: For patients on eltr ombopag therapy, use of [employer] [place] TBIL is not recommended. Chloride [Moles/Vol] 109 mmol/L 98-107 [facility] Eosinophils/100 WBC (Bld) 0.5 % 0-5 [facility] Glucose [Mass/Vol] 107 mg/dL 74-106 [facility] Comment on above: Fasting Glucose resu lt from 100 to 125 mg/dL suggests IMPAIRED HOMEOSTASIS per A.D.A. criteria. Neutrophils (Bld) [#/Vol] 5.9 10*3/uL 2.0-7.7 [facility] Neutrophils/100 WBC (Bld) 19.0 % 47-70 [facility] Potassium [Moles/Vol] 3.0 mmol/L 3.5-5.1 [facility] Protein [Mass/Vol] 6.7 g/dL 6.4-8.2 [facility] Sodium [Moles/Vol] 141 mmol/L 136-145 [facility] WBC (Bld) [#/Vol] 31.0 10*3/uL 4.4-11.0 [facility] Comment on above: CRITICAL VALUE VERIF IED. CALLED TO LARON ÁLVAREZ RN (SURGERY)04/04/22 1507 Nikolas Conway.RESULTS READ BACK BY SAME. Blood erythrocytes count (nu mber/volume)Ordered By: Dr. Morse on 04-04-2022 RBC (Bld) [#/Vol] 3.89 10*6/uL 4.2-5.4 [facility] Blood hemoglobin measurement (mass/volume)Ordered By: Dr. Morse on 04-04-2022 Hemoglobin (Bld) [Mass/Vol] 11.2 g/dL 12.0-15.0 [facility] Blood lymphocytes/100 leukoc ytesOrdered By: Dr. Morse on 04-04-2022 Lymphocytes/100 WBC (Bld) 77.2 % 19-41 [facility] Blood manual differential co mment interpretation (narrative result)Ordered By: Dr. Morse on 04-04-2022 Manual differential comment Joe (Bld) [Interp] SEE COMMENTS [facility] Comment on above: LYMPHOCYTOSIS NOTEDL EUKOCYTOSIS NOTED Blood monocytes/100 leukocyt esOrdered By: Dr. Morse on 04-04-2022 Monocytes/100 WBC (Bld) 2.7 % 0-10 [facility] Blood platelet adequacy dete ction by light microscopyOrdered By: Dr. Morse on 04-04-2022 Platelets LM Ql (Bld) ADEQUATE ADEQ [facility] Blood platelet mean volumeOr dered By: Dr. Morse on 04-04-2022 Platelet mean volume (Bld) [Entitic vol] 9.8 fL 6.2-12.0 [facility] Determination of erythrocyte mean corpuscular volume (MCV)Ordered By: Dr. Morse on 04-04-2022 MCV (RBC) [Entitic vol] 94.3 fL 81-99 [facility] Hematocrit Auto (Bld) [Volum e fraction]Ordered By: Dr. Morse on 04-04-2022 Hematocrit (Bld) [Volume fraction] 36.7 % 37-47 [facility] Laboratory - Chemistry and C hemistry - challengeOrdered By: Dr. Morse on 04-04-2022 ALP [Catalytic activity/Vol] 72 U/L 45-117 [facility] ALT [Catalytic activity/Vol] 13 U/L 13-56 [facility] CO2 [Moles/Vol] 26.0 mmol/L 21.0-32.0 [facility] Globulin (S) [Mass/Vol] 3.6 g/dL 2.2-4.2 [facility] Urea nitrogen/Creatinine [Mass ratio] 13.1 mg/mg 10-20 [facility] Laboratory - Hematology and Cell countsOrdered By: Dr. Morse on 04-04-2022 Anisocytosis Ql (Bld) RARE [facility] Erythrocyte distribution width (RBC) [Entitic vol] 43.5 fL 35.1-43.9 [facility] Erythrocyte distribution width (RBC) [Ratio] 12.6 % 11.6-14.6 [facility] Immature granulocytes/100 WBC (Bld) 0.300 % 0.0-0.9 [facility] Comment on above: IG% - Immature Granu locytes (promyelocytes, myelocytes and metamyelocytes) > 1% indicates that a LEFT SHIFT is Present. MCH (RBC) [Entitic mass] 28.8 pg 27.0-32.0 [facility] Nucleated RBC/100 WBC (Bld) [Ratio] 0 % 0-5 [facility] MCHC Auto (RBC) [Mass/Vol]Or dered By: Dr. Morse on 04-04-2022 MCHC (RBC) [Mass/Vol] 30.5 g/dL 32-36 [facility] Macrocytes detectionOrdered By: Dr. Morse on 04-04-2022 Macrocytes Ql (Bld) RARE [facility] No Panel InformationOrdered By: Dr. Morse on 04-04-2022 Atypical Lymphocytes 1+ % [facility] Estimated GFR (MDRD) Amer 69 mL/min >60 [facility] Comment on above: GFR Calc Estimated GFR (MDRD) Non-Af Amer 57 mL/min >60 [facility] Comment on above: Non- GFR Calc Reactive Lymphocytes 1+ [facility] 28.8 pg 27.0-32.0 [facility] 12.6 % 11.6-14.6 [facility] 43.5 fl 35.1-43.9 [facility] 0.300 % 0.0-0.9 [facility] 0 % 0-5 [facility] 1+ % [facility] 1+ [facility] RARE [facility] 57 mL/min >60 [facility] 69 mL/min >60 [facility] 13.1 RATIO 10-20 [facility] 3.6 g/dL 2.2-4.2 [facility] 72 U/L 45-117 [facility] 13 U/L 13-56 [facility] 26.0 mmol/L 21.0-32.0 [facility] Platelets bldOrdered By: Dr. Morse on 04-04-2022 Platelets (Bld) [#/Vol] 249 10*3/uL 150-450 [facility] RBC morphologyOrdered By: Dr Mikhail Morse on 04-04-2022 RBC morphology finding Nom (Bld) N CHROM NORMAL NORM C&C [facility] Review by pathologistOrdered By: Dr. Morse on 04-04-2022 Pathologist review Joe (Unsp spec) [Interp] Reviewed [facility] Comment on above: Previous reported re sult: Kristel tran Edited by: RGOOD on 04/06/22:0947Absolute lymphocytosis suggestive of lymphoproliferative disorder.Normocytic anemia.Clinical correlation necessary.Keshav Werner D.O. 04/06/22 AMENDED REPORT 04/06/22 0947 PATH REV previously reported as: Kristel tran Serum or plasma albumin pedro urement (mass/volume)Ordered By: Dr. Morse on 04-04-2022 Albumin [Mass/Vol] 3.1 g/dL 3.2-5.0 [facility] Serum or plasma albumin/glob ulin mass ratioOrdered By: Dr. oMrse on 04-04-2022 Albumin/Globulin [Mass ratio] 0.9 {ratio} 0.9-2.4 [facility] Serum or plasma calcium pedro urement (mass/volume)Ordered By: Dr. Morse on 04-04-2022 Calcium [Mass/Vol] 8.9 mg/dL 8.5-10.1 [facility] Serum or plasma creatinine m easurement (mass/volume)Ordered By: Dr. Morse on 04-04-2022 Creatinine [Mass/Vol] 0.99 mg/dL 0.55-1.02 [facility] Comment on above: The validity of the calculated GFR & GFRAA in patients over 70 years has not been determined. Clinical correlation is essential. Serum or plasma urea nitroge n measurement (mass/volume)Ordered By: Dr. Morse on 04-04-2022 Urea nitrogen [Mass/Vol] 13 mg/dL 7-18 [facility] Thin prep Papanicolaou smear with manual screeningOrdered By: Dr. Morse on 04-04-2022 Thin prep Papanicolaou smear with manual screening 17 U/L 15-37 [facility] Thin prep Papanicolaou smear with manual screening 6 5-15 [facility] Bacteria identified Cx Nom ( U)Ordered By: Armen Hurd on 03-31-2022 Culture, urine Mixed Gram Pos & Gra m Neg Org [facility] Culture, urineOrdered By: Shanel Hurd on 03-31-2022 Bacteria identified Cx Nom (U) Mixed Gram Pos & Gram Neg Org [facility] Basophil percentageOrdered B y: Armen Hurd on 03-29-2022 Basophil percentage 0-5 SEEN /hpf 0-5 [facility] Bilirubin Test strip Ql (U)O rdered By: Armen Hurd on 03-29-2022 Bilirubin Ql (U) Negative Negative [facility] Ketones Test strip Ql (U)Ord ered By: Armen Hurd on 03-29-2022 Ketones Ql (U) Negative Negative [facility] Laboratory - Chemistry and C hemistry - challengeon 03-29-2022 Bilirubin Ql (U) Negative [facility] Glucose Ql (U) Negative [facility] Ketones Ql (U) Negative [facility] pH (U) 6.0 [pH] [facility] Specific gravity (U) [Rel density] 1.005 [facility] Urobilinogen (U) [Mass/Vol] Negative [facility] Laboratory - Hematology and Cell countson 03-29-2022 Hemoglobin Ql (U) Negative [facility] Laboratory - Specimen inform ationon 03-29-2022 Clarity (U) Cloudy [facility] Color (U) YELLOW [facility] Laboratory - Urinalysison Nitrite Ql (U) Negative [facility] Protein Ql (U) Negative [facility] Mucus LM Ql (Urine sed)Order ed By: Armen Hurd on 03-29-2022 Mucus Ql (Urine sed) 0 SEEN /hpf [facility] Nitrite Test strip Ql (U)Ord ered By: Armen Hurd on 03-29-2022 Nitrite Ql (U) Negative Negative [facility] No Panel Informationon 03-29 Urine Leukocytes Positive [facility] Urine Non-Hemolyzed Blood Negative [facility] YELLOW [facility] Cloudy [facility] Negative [facility] 1.005 [facility] 6.0 [facility] Positive [facility] Protein Test strip Ql (U)Ord ered By: Armen Hurd on 03-29-2022 Protein Ql (U) 15 mg/dl Negative [facility] Squamous epithelial cells de tection in urine sediment by light microscopyOrdered By: Armen Hurd on 03-29-2022 Epithelial cells.squamous LM Ql (Urine sed) 0-5 SEEN /hpf 5-10 [facility] Urine blood detectionOrdered By: Armen Hurd on 03-29-2022 RBC Ql (U) Negative Negative [facility] RBC Ql (U) 0 SEEN /hpf 0-5 [facility] Urine clarityOrdered By: Eren Hurd on 03-29-2022 Clarity (U) Clear Clear [facility] Urine color determinationOrd ered By: Armen Hurd on 03-29-2022 Color (U) Straw Yellow [facility] Urine glucose detectionOrder ed By: Armen Hurd on 03-29-2022 Glucose Ql (U) Normal mg/dl Normal [facility] Urine leukocyte esterase det ection by dipstickOrdered By: Armen Hurd on 03-29-2022 Leukocyte esterase Test strip Ql (U) 25 /ul Negative [facility] Urine pHOrdered By: Armen cuadra on 03-29-2022 pH (U) 6.0 [pH] 5.0 - 8.0 [facility] Urine sediment bacteria coun t by microscopy (number/high power field)Ordered By: Armen Hurd on 03-29-2022 Bacteria LM.HPF (Urine sed) [#/Area] 0 /[HPF] None Seen [facility] Urine specific gravity measu rementOrdered By: Armen Hurd on 03-29-2022 Specific gravity (U) [Rel density] 1.015 1.002-1.030 [facility] Urobilinogen Auto test strip Ql (U)Ordered By: Armen Hurd on 03-29-2022 Urobilinogen Ql (U) Normal mg/dl Normal [facility] Culture, urineOrdered By: Shanel Hurd on 02-25-2022 Bacteria identified Cx Nom (U) Escherichia coli [facility] Laboratory - Chemistry and C hemistry - challengeon 02-21-2022 Bilirubin Ql (U) Negative [facility] Glucose Ql (U) Negative [facility] Ketones Ql (U) Negative [facility] pH (U) 5.0 [pH] [facility] Specific gravity (U) [Rel density] 1.020 [facility] Urobilinogen (U) [Mass/Vol] Negative [facility] Laboratory - Hematology and Cell countson 02-21-2022 Hemoglobin Ql (U) Moderate [facility] Laboratory - Specimen inform ationon 02-21-2022 Clarity (U) Turbid [facility] Color (U) YELLOW [facility] Laboratory - Urinalysison Nitrite Ql (U) Negative [facility] Protein Ql (U) Negative [facility] No Panel Informationon 02-21 Urine Leukocytes Positive [facility] Urine Non-Hemolyzed Blood Non-Hemolyzed [facility] CREATININE, BLOOD (POC)on Creatinine [Mass/Vol] 1.10 mg/dL 0.7 - 1.4 mg/dL [facility] eGFR (POCT) 50 mL/min/1.73 m2 [facility] CTA CHEST/ABD/PEL (GATED) W IVCONon 11-03-2021 Radiology Result ACTIONABLE Abnormal [facility] XR CHEST 2V FRONTAL/LATon [facility] Basophil percentageon 2021 Basophil percentage 0-5 SEEN /hpf 0-5 [facility] Work Phone: Bilirubin Test strip Ql (U)o n 10-18-2021 Bilirubin Ql (U) Negative Negative [facility] Work Phone: Ketones Test strip Ql (U)on 10-18-2021 Ketones Ql (U) Negative Negative [facility] Work Phone: Laboratory - Chemistry and C hemistry - challengeon 10-18-2021 Bilirubin Ql (U) Negative [facility] Work Phone: Glucose Ql (U) Negative [facility] Work Phone: Ketones Ql (U) Trace (5) [facility] Work Phone: pH (U) 6.0 [pH] [facility] Work Phone: Specific gravity (U) [Rel density] 1.020 [facility] Work Phone: [phone] Urobilinogen (U) [Mass/Vol] Negative [facility] Work Phone: Laboratory - Hematology and Cell countson 10-18-2021 Hemoglobin Ql (U) Trace [facility] Work Phone: Laboratory - Microbiology an d Antimicrobial susceptibilityon 10-18-2021 SARS-CoV-2 (COVID-19) RNA MARYJO+probe Ql (Unsp spec) Not detected [facility] Work Phone: Laboratory - Specimen inform ationon 10-18-2021 Clarity (U) Hazy [facility] Work Phone: Color (U) STRAW [facility] Work Phone: Laboratory - Urinalysison Nitrite Ql (U) Negative [facility] Work Phone: Protein Ql (U) Negative [facility] Work Phone: Mucus LM Ql (Urine sed)on Mucus Ql (Urine sed) 0 SEEN /hpf [facility] Work Phone: Nitrite Test strip Ql (U)on 10-18-2021 Nitrite Ql (U) Negative Negative [facility] Work Phone: No Panel Informationon 10-18 Influenza Types A,B Rapid (Clinic) Not detected [facility] Work Phone: Urine Leukocytes Positive [facility] Work Phone: Urine Non-Hemolyzed Blood Non-Hemolyzed [facility] Work Phone: Protein Test strip Ql (U)on 10-18-2021 Protein Ql (U) Negative Negative [facility] Work Phone: Squamous epithelial cells de tection in urine sediment by light microscopyon 10-18-2021 Epithelial cells.squamous LM Ql (Urine sed) 0 SEEN /hpf 5-10 [facility] Work Phone: Urine blood detectionon 09-30-2021 RBC Ql (U) Negative Negative [facility] Work Phone: RBC Ql (U) 0 SEEN /hpf 0-5 [facility] Work Phone: Urine clarityon 10-18-2021 Clarity (U) Clear Clear [facility] Work Phone: Urine color determinationon 10-18-2021 Color (U) Straw Yellow [facility] Work Phone: Urine glucose detectionon Glucose Ql (U) Normal mg/dl Normal [facility] Work Phone: Urine leukocyte esterase det ection by dipstickon 10-18-2021 Leukocyte esterase Test strip Ql (U) 25 /ul Negative [facility] Work Phone: Urine pHon 10-18-2021 pH (U) 6.0 [pH] 5.0 - 8.0 [facility] Work Phone: Urine sediment bacteria coun t by microscopy (number/high power field)on 10-18-2021 Bacteria LM.HPF (Urine sed) [#/Area] 1 /[HPF] None Seen [facility] Work Phone: Urine specific gravity measu rementon 10-18-2021 Specific gravity (U) [Rel density] 1.015 1.002-1.030 [facility] Work Phone: Urobilinogen Auto test strip Ql (U)on 10-18-2021 Urobilinogen Ql (U) Normal mg/dl Normal [facility] Work Phone: [phone] Base excesson 09-29-2021 Base excess Calc (BldV) [Moles/Vol] -11 mmol/L -2-2 [facility] Work Phone: [phone] Basophil percentageon 2021 Basophil percentage 16.7 mmol/L 22-26 [facility] Work Phone: [phone] Basophils/100 WBC (Bld) 95 % 95-99 [facility] Work Phone: [phone] CO2 (BldA) [Partial pressure ]on 09-29-2021 CO2 (Bld) [Partial pressure] 37.5 mm[Hg] 35-45 [facility] Work Phone: [phone] HCO3 (BldA) [Moles/Vol]on HCO3 (Bld) [Moles/Vol] 17 mmol/L 22-26 [facility] Work Phone: Laboratory - Chemistry and C hemistry - challengeon 09-29-2021 CO2 [Moles/Vol] 18 mmol/L 23-33 [facility] Work Phone: No Panel Informationon 09-29 Bed Mix Venous Bld PCO2 at Pat Temp 38.9 mmHg 41-51 [facility] Work Phone: [phone] Blood Gas Specimen Type ROBERTO [facility] Work Phone: Venous Blood Base Excess -11 mmol/L -1.0-3.5 [facility] Work Phone: Blood Gas Total CO2 18 mmol/L [facility] Work Phone: Oxygen (BldA) [Partial press ure]on 09-29-2021 Oxygen (Bld) [Partial pressure] 84 mmHG 75-100 [facility] Work Phone: PO2 venouson 09-29-2021 Oxygen (BldV) [Partial pressure] 49 mm[Hg] 25-40 [facility] Work Phone: Vital signson 09-29-2021 Oxygen saturation in Blood 78 % 50-70 [facility] Work Phone: pH measurementon 09-29-2021 pH (Unsp spec) 7.24 [pH] 7.32-7.42 [facility] Work Phone: pH (Unsp spec) 7.26 [pH] 7.35-7.45 [facility] Work Phone: Absolute lymphocyte counton 09-14-2021 Lymphocytes Auto (Unsp spec) [#/Vol] 23.56 10*3/uL 0.83-4.51 [facility] Work Phone: Basophil percentageon 2021 Basophils/100 WBC (Bld) 0.3 % 0-1 [facility] Work Phone: Chloride [Moles/Vol] 110 mmol/L 98-107 [facility] Work Phone: Eosinophils/100 WBC (Bld) 0.4 % 0-5 [facility] Work Phone: Glucose [Mass/Vol] 99 mg/dL 74-106 [facility] Work Phone: Neutrophils (Bld) [#/Vol] 5.0 10*3/uL 2.0-7.7 [facility] Work Phone: Neutrophils/100 WBC (Bld) 17.0 % 47-70 [facility] Work Phone: Potassium [Moles/Vol] 4.9 mmol/L 3.5-5.1 [facility] Work Phone: Sodium [Moles/Vol] 140 mmol/L 136-145 [facility] Work Phone: [phone] WBC (Bld) [#/Vol] 29.3 10*3/uL 4.4-11.0 [facility] Work Phone: Blood erythrocytes count (nu mber/volume)on 09-14-2021 RBC (Bld) [#/Vol] 3.84 10*6/uL 4.2-5.4 [facility] Work Phone: Blood hemoglobin measurement (mass/volume)on 09-14-2021 Hemoglobin (Bld) [Mass/Vol] 11.3 g/dL 12.0-15.0 [facility] Work Phone: [phone] Blood lymphocytes/100 leukoc yteson 09-14-2021 Lymphocytes/100 WBC (Bld) 80.4 % 19-41 [facility] Work Phone: Blood manual differential co mment interpretation (narrative result)on 09-14-2021 Manual differential comment Joe (Bld) [Interp] SEE COMMENT [facility] Work Phone: Comment on above: LYMPHOCYTOSIS NOTED Blood monocytes/100 leukocyt eson 09-14-2021 Monocytes/100 WBC (Bld) 1.7 % 0-10 [facility] Work Phone: Blood platelet adequacy dete ction by light microscopyon 09-14-2021 Platelets LM Ql (Bld) ADEQUATE ADEQ [facility] Work Phone: [phone] Blood platelet mean volumeon 09-14-2021 Platelet mean volume (Bld) [Entitic vol] 10.5 fL 6.2-12.0 [facility] Work Phone: Determination of erythrocyte mean corpuscular volume (MCV)on 09-14-2021 MCV (RBC) [Entitic vol] 94.5 fL 81-99 [facility] Work Phone: Hematocrit Auto (Bld) [Volum e fraction]on 09-14-2021 Hematocrit (Bld) [Volume fraction] 36.3 % 37-47 [facility] Work Phone: [phone] INR in Blood by Coagulation assayon 09-14-2021 INR Coag (Bld) [Relative time] 1.0 {INR} [facility] Work Phone: [phone] Laboratory - Chemistry and C hemistry - challengeon 09-14-2021 CO2 [Moles/Vol] 26.0 mmol/L 21.0-32.0 [facility] Work Phone: Urea nitrogen/Creatinine [Mass ratio] 22.4 mg/mg 10-20 [facility] Work Phone: Laboratory - Coagulationon 0 09-14-2021 aPTT Coag (Bld) [Time] 29.2 s 24.1-36.2 [facility] Work Phone: PT Coag (PPP) [Time] 12.8 s 11.7-14.9 [facility] Work Phone: [phone] Laboratory - Hematology and Cell countson 09-14-2021 Anisocytosis Ql (Bld) RARE [facility] Work Phone: Erythrocyte distribution width (RBC) [Entitic vol] 48.3 fL 35.1-43.9 [facility] Work Phone: Erythrocyte distribution width (RBC) [Ratio] 13.9 % 11.6-14.6 [facility] Work Phone: Immature granulocytes/100 WBC (Bld) 0.200 % 0.0-0.9 [facility] Work Phone: Comment on above: IG% - Immature Granu locytes (promyelocytes, myelocytes and metamyelocytes) > 1% indicates that a LEFT SHIFT is Present. MCH (RBC) [Entitic mass] 29.4 pg 27.0-32.0 [facility] Work Phone: Nucleated RBC/100 WBC (Bld) [Ratio] 0 % 0-5 [facility] Work Phone: MCHC Auto (RBC) [Mass/Vol]on 06-16-2022 MCHC (RBC) [Mass/Vol] 31.1 g/dL 32-36 [facility] Work Phone: Macrocytes detectionon 09-14 Macrocytes Ql (Bld) RARE [facility] Work Phone: No Panel Informationon 09-14 Atypical Lymphocytes 1+ % [facility] Work Phone: Estimated GFR (MDRD) Amer 58 mL/min >60 [facility] Work Phone: Comment on above: GFR Calc Estimated GFR (MDRD) Non-Af Amer 48 mL/min >60 [facility] Work Phone: Comment on above: Non- GFR Calc Platelets bldon 09-14-2021 Platelets (Bld) [#/Vol] 276 10*3/uL 150-450 [facility] Work Phone: RBC morphologyon 09-14-2021 RBC morphology finding Nom (Bld) N CHROM NORMAL NORM C&C [facility] Work Phone: Review by pathologiston 08-30 Pathologist review Joe (Unsp spec) [Interp] Reviewed [facility] Work Phone: Comment on above: Previous reported re sult: Kristel tran Edited by: RGOOD on 09/15/21:1353Absolute lymphocytosis suggestive of low grade lympho-proliferative disorder.Clinical correlation is necessary. Rao Perez M.D. 09/15/21 AMENDED REPORT 09/15/21 1353 PATH REV previously reported as: Kristel tran Serum or plasma calcium pedro urement (mass/volume)on 09-14-2021 Calcium [Mass/Vol] 9.1 mg/dL 8.5-10.1 [facility] Work Phone: Serum or plasma creatinine m easurement (mass/volume)on 09-14-2021 Creatinine [Mass/Vol] 1.16 mg/dL 0.55-1.02 [facility] Work Phone: Comment on above: The validity of the calculated GFR & GFRAA in patients over 70 years has not been determined. Clinical correlation is essential. Serum or plasma urea nitroge n measurement (mass/volume)on 09-14-2021 Urea nitrogen [Mass/Vol] 26 mg/dL 7-18 [facility] Work Phone: Thin prep Papanicolaou smear with manual screeningon 09-14-2021 Thin prep Papanicolaou smear with manual screening 4 5-15 [facility] Work Phone: Comprehensive metabolic 2000 panelon 08-03-2021 Albumin [Mass/Vol] 4.5 g/dL 3.9 - 4.9 g/dL [facility] ALP [Catalytic activity/Vol] 69 U/L 34 - 123 U/L [facility] ALT [Catalytic activity/Vol] 12 U/L 7 - 38 U/L [facility] Anion gap [Moles/Vol] 13 mmol/L 9 - 18 mmol/L [facility] AST [Catalytic activity/Vol] 25 U/L 13 - 35 U/L [facility] Bilirubin [Mass/Vol] 0.7 mg/dL 0.2 - 1 .3 mg/dL [facility] Calcium [Mass/Vol] 9.6 mg/dL 8.5 - 10. 2 mg/dL [facility] Chloride [Moles/Vol] 108 mmol/L High 97 - 10 5 mmol/L [facility] CO2 [Moles/Vol] 18 mmol/L Low 22 - 30 mmol/L [facility] Creatinine [Mass/Vol] 1.42 mg/dL High 0.58 - 0.96 mg/dL [facility] Estimated Glomerular Filtration Rate 37 mL/min/1.73m Low >=60 mL/min/1.73 m [facility] Glucose [Mass/Vol] 103 mg/dL High 74 - 99 mg/dL [facility] Potassium [Moles/Vol] 4.3 mmol/L 3.7 - 5.1 mmol/L [facility] Protein [Mass/Vol] 7.3 g/dL 6.3 - 8.0 g/dL [facility] Sodium [Moles/Vol] 139 mmol/L 136 - 144 mmol/L [facility] Urea nitrogen [Mass/Vol] 40 mg/dL High 7 - 21 mg/dL [facility] LD LACTATE DEHYDROon 05-05-2 022 LDH [Catalytic activity/Vol] 202 U/L 135 - 214 U/L [facility] RETIC COUNTon 08-03-2021 Reticulocytes (Bld) [#/Vol] 0.25881 10*3/uL 0.018 - 0.100 M/uL [facility] Reticulocytes (Bld) [#/Vol]o n 08-03-2021 Reticulocytes/100 RBC (Bld) 1.5 % 0.4 - 2.0 % [facility] URIC ACID BLOODon 08-03-2021 Urate [Mass/Vol] 7.5 mg/dL High 2.5 - 6.6 mg/dL [facility] No Panel Informationon 06-13 Miscellaneous Test See comment [facility]: Comment on above: TEST RESULT LIMITSCo mp panel: Leukemia/LymphomaFlow InterpretationChronic lymphocytic leukemia (CLL), bi-clonal, positive for CD19, CD20 and CD22 and negative for CD38, see commentFlow Comment CLL FISH testing and IGHV mutation analysis are recommended for prognosis assessment on initial workup of CLL patients.Two monoclonal B cell populations were detected which have an identical phenotype except for light chain expression. The presence of biclonal CLL has been reported. The clinical significance is unknown. (Am J Clin Pathol 2000; 113:798-804.)Clinical InformationA recent CBC has been reviewed in preparing this report and it shows significant lymphocytosis.Specimen Type Peripheral bloodAssessment of Leukocytes A CD5+/CD23+ monoclonal B cell population is detected with labda light chain restriction, representing 98% of B-cells and 80% of leukocytes, immunophenotype consistent with chronic lymphocytic leukemia/small lymphocytic lymphoma. CD38 expression is negative.A second and minor CD5+/CD23+ monoclonal B cell population is detected with kappa light chain restriction, representing 2% of B-cells and 2% of leukocytes, immunophenotype consistent with chronic lymphocytic leukemia/small lymphocytic lymphoma. CD38 expression is negative.There is no loss of, or aberrant expression of, the lopez T cell antigens to suggest a neoplastic T cell process.CD4:CD8 ratio 1.4No circulating blasts are detected.There is no immunophenotypic evidence of abnormal myeloid maturation.Analysis of the leukocyte population shows: granulocytes 10%, monocytes 1%, lymphocytes 89%, blasts <0.1%, B cells 82%, T cells 6%, NK cells 1%.Viability 93%Immunophenotypic Profile Abnormal cell population: present-80% of total cells (Phenotype below),2% of total cells (Phenotype below)Analysis and Gating Strategy 8 color analysis with CD45/SSCPhenotype Chart CD2 N N CD3 N NCD4 N N CD5 P PCD7 N N CD8 N NCD10 N N CD11b N NCD11c PD PD CD13 N NCD14 N N CD15 N NCD16 N N CD19 P PCD20 PD PD CD22 PD PDCD23 PB PB CD33 N NCD34 N N CD38 N NCD45 P P CD56 N NCD57 N N CD103 N VMN120 N N [facility]-7 N NHLA-DR P P KAPPA N PDLAMBDA PD N CD64 N NResulting Path Name Suleman Nicolas M.D. Ph.DComment: Each antibody in this assay was utilized to assess for potential abnormalities of studied cell populations or to characterize identified abnormalities.This test was developed and its performance characteristics determined by [facility]. It has not been cleared or approved by the U.S. Food and Drug Administration.The FDA has determined that such clearance or approval is not necessary. This test is used for clinical purposes. It should not be regarded as investigational or for research. ____ TESTING PERFORMED AT [facility]. ORIGINAL REPORT ON FILE IN LAB CONTAINS ADDITIONAL TEST SITE INFORMATION. Absolute lymphocyte counton 06-05-2021 Lymphocytes Auto (Unsp spec) [#/Vol] 20.85 10*3/uL 0.83-4.51 [facility] Work Phone: Basophil percentageon 2021 Basophils/100 WBC (Bld) 0.3 % 0-1 [facility] Work Phone: Bilirubin [Mass/Vol] 0.70 mg/dL 0.20-1.00 [facility] Work Phone: [phone] Comment on above: For patients on eltr ombopag therapy, use of [employer] [place] TBIL is not recommended. Chloride [Moles/Vol] 111 mmol/L 98-107 [facility] Work Phone: [phone] Cholesterol [Mass/Vol] 188 mg/dL <200 [facility] Work Phone: [phone] Comment on above: <200 mg/dL Desirable 200-240 mg/dL Borderline >240 mg/dL High Risk Eosinophils/100 WBC (Bld) 0.7 % 0-5 [facility] Work Phone: [phone] Glucose [Mass/Vol] 99 mg/dL 74-106 [facility] Work Phone: [phone] Neutrophils (Bld) [#/Vol] 4.3 10*3/uL 2.0-7.7 [facility] Work Phone: [phone] Neutrophils/100 WBC (Bld) 16.6 % 47-70 [facility] Work Phone: [phone] Potassium [Moles/Vol] 4.7 mmol/L 3.5-5.1 [facility] Work Phone: [phone] Protein [Mass/Vol] 7.1 g/dL 6.4-8.2 [facility] Work Phone: [phone] Sodium [Moles/Vol] 140 mmol/L 136-145 [facility] Work Phone: [phone] Triglyceride [Mass/Vol] 89 mg/dL <199 [facility] Work Phone: [phone] Comment on above: The drugs N-Acetylcy steine and Metamizole may falsely depress this assay.Serum Triglycerides Reference Interval Normal <150 mg/dL Borderline high 150 - 199 mg/dL High 200 - 499 mg/dL Very High > or = 500 mg/dL WBC (Bld) [#/Vol] 25.9 10*3/uL 4.4-11.0 [facility] Work Phone: [phone] Blood erythrocytes count (nu mber/volume)on 06-05-2021 RBC (Bld) [#/Vol] 3.97 10*6/uL 4.2-5.4 [facility] Work Phone: Blood hemoglobin measurement (mass/volume)on 06-05-2021 Hemoglobin (Bld) [Mass/Vol] 11.7 g/dL 12.0-15.0 [facility] Work Phone: Blood lymphocytes/100 leukoc yteson 06-05-2021 Lymphocytes/100 WBC (Bld) 80.5 % 19-41 [facility] Work Phone: Blood manual differential co mment interpretation (narrative result)on 06-05-2021 Manual differential comment Joe (Bld) [Interp] COMMENT [facility] Work Phone: Comment on above: LYMPHOCYTOSIS. Blood monocytes/100 leukocyt eson 06-05-2021 Monocytes/100 WBC (Bld) 1.7 % 0-10 [facility] Work Phone: Blood platelet mean volumeon 06-05-2021 Platelet mean volume (Bld) [Entitic vol] 10.4 fL 6.2-12.0 [facility] Work Phone: Determination of erythrocyte mean corpuscular volume (MCV)on 06-05-2021 MCV (RBC) [Entitic vol] 95.0 fL 81-99 [facility] Work Phone: Hematocrit Auto (Bld) [Volum e fraction]on 06-05-2021 Hematocrit (Bld) [Volume fraction] 37.7 % 37-47 [facility] Work Phone: Laboratory - Chemistry and C hemistry - challengeon 06-05-2021 ALP [Catalytic activity/Vol] 76 U/L 45-117 [facility] Work Phone: ALT [Catalytic activity/Vol] 23 U/L 13-56 [facility] Work Phone: CO2 [Moles/Vol] 25.0 mmol/L 21.0-32.0 [facility] Work Phone: Globulin (S) [Mass/Vol] 3.6 g/dL 2.2-4.2 [facility] Work Phone: Urea nitrogen/Creatinine [Mass ratio] 15.0 mg/mg 10-20 [facility] Work Phone: Free T4 [Mass/Vol] 0.81 ng/dL 0.76-1.46 [facility] Work Phone: Laboratory - Hematology and Cell countson 06-05-2021 Erythrocyte distribution width (RBC) [Entitic vol] 49.2 fL 35.1-43.9 [facility] Work Phone: Erythrocyte distribution width (RBC) [Ratio] 14.2 % 11.6-14.6 [facility] Work Phone: Immature granulocytes/100 WBC (Bld) 0.200 % 0.0-0.9 [facility] Work Phone: Comment on above: IG% - Immature Granu locytes (promyelocytes, myelocytes and metamyelocytes) > 1% indicates that a LEFT SHIFT is Present. MCH (RBC) [Entitic mass] 29.5 pg 27.0-32.0 [facility] Work Phone: Nucleated RBC/100 WBC (Bld) [Ratio] 0 % 0-5 [facility] Work Phone: MCHC Auto (RBC) [Mass/Vol]on 06-05-2021 MCHC (RBC) [Mass/Vol] 31.0 g/dL 32-36 [facility] Work Phone: No Panel Informationon 06-05 Estimated GFR (MDRD) Amer 68 mL/min >60 [facility] Work Phone: Comment on above: GFR Calc Estimated GFR (MDRD) Non-Af Amer 56 mL/min >60 [facility] Work Phone: Comment on above: Non- GFR Calc Thyroid Stimulating Hormone (TSH) 6.33 uIU/mL 0.358-3.74 [facility] Work Phone: Vitamin D 25-Hydroxy 20.4 ng/mL [facility] Work Phone: Comment on above: Vitamin D 25(OH) Sta tus Range Deficiency <20 ng/mL (50nmol/L) Insufficiency 20 - 30 ng/mL (50 - 75 nmol/L) Sufficiency 30 - 100 ng/mL (75 - 250 nmol/L) Toxicity >100 ng/mL (>250 nmol/L) Free Triiodothyronine (T3) pg/dL 2.6 pg/mL 2.18-3.98 [facility] Work Phone: Platelets bldon 06-05-2021 Platelets (Bld) [#/Vol] 229 10*3/uL 150-450 [facility] Work Phone: Serum or plasma albumin perdo urement (mass/volume)on 06-05-2021 Albumin [Mass/Vol] 3.5 g/dL 3.2-5.0 [facility] Work Phone: Serum or plasma albumin/glob ulin mass ratioon 06-05-2021 Albumin/Globulin [Mass ratio] 1.0 {ratio} 0.9-2.4 [facility] Work Phone: Serum or plasma calcium pedro urement (mass/volume)on 06-05-2021 Calcium [Mass/Vol] 9.2 mg/dL 8.5-10.1 [facility] Work Phone: Serum or plasma cholesterol in HDL measurement (mass/volume)on 06-05-2021 Cholesterol in HDL [Mass/Vol] 76 mg/dL >40 [facility] Work Phone: Comment on above: The drugs N-Acetylcy steine and Metamizole may falsely depress this assay. Reference Range HDL <40 mg/dL Low HDL Cholesterol HDL >or= 60 mg/dL High HDL Cholesterol Serum or plasma cholesterol in VLDL measurement (mass/volume)on 06-05-2021 Cholesterol in VLDL [Mass/Vol] 18 mg/dL 5-40 [facility] Work Phone: Serum or plasma creatinine m easurement (mass/volume)on 06-05-2021 Creatinine [Mass/Vol] 1.00 mg/dL 0.55-1.02 [facility] Work Phone: Comment on above: The validity of the calculated GFR & GFRAA in patients over 70 years has not been determined. Clinical correlation is essential. Serum or plasma low density lipoprotein (LDL) cholesterol measurement (mass/volume)on 06-05-2021 Cholesterol in LDL [Mass/Vol] 94 mg/dL 0-130 [facility] Work Phone: Serum or plasma urea nitroge n measurement (mass/volume)on 06-05-2021 Urea nitrogen [Mass/Vol] 15 mg/dL 7-18 [facility] Work Phone: Thin prep Papanicolaou smear with manual screeningon 06-05-2021 Thin prep Papanicolaou smear with manual screening 22 U/L 15-37 [facility] Work Phone: Thin prep Papanicolaou smear with manual screening 4 5-15 [facility] Work Phone: ABDOM PARACENTESIS DX/THER W IMAGING GUIDANCE [facility] Culture, urine Bacteria identified Cx Nom (U) Positive [facility] Work Phone: Bacteria identified Cx Nom (U) Escherichia coli [facility] Work Phone: Bacteria identified Cx Nom (U) Mixed Gram Pos & Gram Neg Org [facility] Work Phone: Vital Signs Date Time Vital Sign Value Performing Clinician Facility 10-16-2024 10:56-0400 Body temperature 98.5 [degF] Dr. Vern Bernardo MD Work Phone: [facility] 10-16-2024 10:56-0400 Diastolic blood pressure 66 mm[Hg] Dr. Vern Bernardo MD Work Phone: [facility] 10-16-2024 10:56-0400 Heart rate 63 /min Dr. Vern Bernardo MD Work Phone: [facility] 10-16-2024 10:56-0400 Respiratory rate 16 /min Dr. Vern Bernardo MD Work Phone: [facility] 10-16-2024 10:56-0400 SaO2% (BldA) [Mass fraction] 97 % Dr. Vern Bernardo MD Work Phone: [facility] 10-16-2024 10:56-0400 Systolic blood pressure 138 mm[Hg] Dr. Vern Bernardo MD Work Phone: [facility] 08-25-2024 16:33-0400 Body temperature 98.3 [degF] Dr. Vern Bernardo MD Work Phone: [facility] 08-25-2024 16:33-0400 Diastolic blood pressure 80 mm[Hg] Dr. Vern Bernardo MD Work Phone: [facility] 08-25-2024 16:33-0400 Heart rate 64 /min Dr. Vern Bernardo MD Work Phone: [facility] 08-25-2024 16:33-0400 SaO2% (BldA) [Mass fraction] 99 % Dr. Vern Bernardo MD Work Phone: [facility] 08-25-2024 16:33-0400 Systolic blood pressure 120 mm[Hg] Dr. Vern Bernardo MD Work Phone: [facility] 08-10-2024 08:51-0400 Body height 147 cm Ruddy Patricio DO Work Phone: [facility] 08-10-2024 08:51-0400 Body mass index (BMI) [Ratio] 26.87 kg/m2 Ruddy Patricio DO Work Phone: [facility] 08-10-2024 08:51-0400 Body temperature 96.91 [degF] Ruddy Patricio DO Work Phone: [facility] 08-10-2024 08:51-0400 Body weight 58.06 kg Ruddy Patricio DO Work Phone: [facility] 08-10-2024 08:51-0400 Diastolic blood pressure 58 mm[Hg] Ruddy Masci DO Work Phone: [facility] 08-10-2024 08:51-0400 Heart rate 50 /min Ruddy Mazariegosi DO Work Phone: [facility] 08-10-2024 08:51-0400 SaO2% (BldA) [Mass fraction] 99 % Ruddy Patricio DO Work Phone: [facility] 08-10-2024 08:51-0400 Systolic blood pressure 120 mm[Hg] Ruddy Patricio DO Work Phone: [facility] 07-09-2024 14:44-0400 Body height 147.[address] Vern Bernardo MD Work Phone: [facility] 07-09-2024 14:44-0400 Body mass index (BMI) [Ratio] 26.5 kg/m2 Dr. Vern Bernardo MD Work Phone: [facility] 07-09-2024 14:44-0400 Body temperature 98 [degF] Dr. Vern Bernardo MD Work Phone: [facility] 07-09-2024 14:44-0400 Body weight 57.[address] Vern Bernardo MD Work Phone: [facility] 07-09-2024 14:44-0400 Diastolic blood pressure 68 mm[Hg] Dr. Vern Bernardo MD Work Phone: [facility] 07-09-2024 14:44-0400 Heart rate 56 /min Dr. Vern Bernardo MD Work Phone: [facility] 07-09-2024 14:44-0400 Respiratory rate 16 /min Dr. Vern Bernardo MD Work Phone: [facility] 07-09-2024 14:44-0400 SaO2% (BldA) [Mass fraction] 96 % Dr. Vern Bernardo MD Work Phone: [facility] 07-09-2024 14:44-0400 Systolic blood pressure 124 mm[Hg] Dr. Vern Bernardo MD Work Phone: [facility] 05-11-2024 11:52-0500 Body mass index (BMI) [Ratio] 27.4 kg/m2 Franklyn Coronel M[employer] LINE OPERATOR.STORE LOSS PREVENTION MANAGER Work Phone: [facility] 05-11-2024 11:52-0500 Body temperature 97.39 [degF] Franklyn Coronel M[employer]IC[employer] LINE OPERATOR.STORE LOSS PREVENTION MANAGER Work Phone: [facility] 05-11-2024 11:52-0500 Body weight 59.2 kg Franklyn Coronel M[employer]IC[employer] LINE OPERATOR.STORE LOSS PREVENTION MANAGER Work Phone: [facility] 05-11-2024 11:52-0500 Diastolic blood pressure 75 mm[Hg] Franklyn Coronel M[employer]IC[employer] LINE OPERATOR.STORE LOSS PREVENTION MANAGER Work Phone: [facility] 05-11-2024 11:52-0500 Heart rate 91 /min Franklyn Coronel M[employer]IC[employer] LINE OPERATOR.STORE LOSS PREVENTION MANAGER Work Phone: [facility] 05-11-2024 11:52-0500 SaO2% (BldA) [Mass fraction] 93 % Franklyn Coronel M[employer]IC[employer] LINE OPERATOR.STORE LOSS PREVENTION MANAGER Work Phone: [facility] 05-11-2024 11:52-0500 Systolic blood pressure 122 mm[Hg] Franklyn Coronel M[employer]IC[employer] LINE OPERATOR.STORE LOSS PREVENTION MANAGER Work Phone: [facility] 02-17-2024 08:38-0500 Body mass index (BMI) [Ratio] 27.6 kg/m2 Ruddy Masci DO Work Phone: [facility] 02-17-2024 08:38-0500 Body temperature 97.59 [degF] Ruddy Masci DO Work Phone: [facility] 02-17-2024 08:38-0500 Body weight 59.65 kg Ruddy Masci DO Work Phone: [facility] 02-17-2024 08:38-0500 Diastolic blood pressure 80 mm[Hg] Ruddy Masci DO Work Phone: [facility] 02-17-2024 08:38-0500 Heart rate 54 /min Ruddy Masci DO Work Phone: [facility] 02-17-2024 08:38-0500 SaO2% (BldA) [Mass fraction] 98 % Ruddy Masci DO Work Phone: [facility] 02-17-2024 08:38-0500 Systolic blood pressure 131 mm[Hg] Ruddy Masci DO Work Phone: [facility] 11-25-2023 08:50-0400 Body mass index (BMI) [Ratio] 26.76 kg/m2 Ruddy Masci DO Work Phone: [facility] 11-25-2023 08:50-0400 Body temperature 97.3 [degF] Ruddy Masci DO Work Phone: [facility] 11-25-2023 08:50-0400 Body weight 57.83 kg Ruddy Masci DO Work Phone: [facility] 11-25-2023 08:50-0400 Diastolic blood pressure 72 mm[Hg] Ruddy Masci DO Work Phone: [facility] 11-25-2023 08:50-0400 Heart rate 53 /min Ruddy Masci DO Work Phone: [facility] 11-25-2023 08:50-0400 SaO2% (BldA) [Mass fraction] 99 % Ruddy Masci DO Work Phone: [facility] 11-25-2023 08:50-0400 Systolic blood pressure 126 mm[Hg] Ruddy Masci DO Work Phone: [facility] 08-23-2023 08:27-0400 Body mass index (BMI) [Ratio] 25.5 kg/m2 Ruddy Masci DO Work Phone: [facility] 08-23-2023 08:27-0400 Body temperature 97.9 [degF] Ruddy Masci DO Work Phone: [facility] 08-23-2023 08:27-0400 Body weight 55.11 kg Ruddy Masci DO Work Phone: [facility] 08-23-2023 08:27-0400 Diastolic blood pressure 59 mm[Hg] Ruddy Patricio DO Work Phone: [facility] 08-23-2023 08:27-0400 Heart rate 56 /min Ruddy Patricio DO Work Phone: [facility] 08-23-2023 08:27-0400 SaO2% (BldA) [Mass fraction] 97 % Ruddy Patricio DO Work Phone: [facility] 08-23-2023 08:27-0400 Systolic blood pressure 103 mm[Hg] Ruddy Patricio DO Work Phone: [facility] 07-18-2023 08:58-0400 Body height 147.[address] Vern Bernardo Work Phone: [facility] 07-18-2023 08:58-0400 Body mass index (BMI) [Ratio] 24.8 kg/m2 Dr. Vern Bernardo Work Phone: [facility] 07-18-2023 08:58-0400 Body temperature 98.2 [degF] Dr. Vern Bernardo Work Phone: [facility] 07-18-2023 08:58-0400 Body weight 53.[address] Vern Bernardo Work Phone: [facility] 07-18-2023 08:58-0400 Diastolic blood pressure 68 mm[Hg] Dr. Vern Bernardo Work Phone: [facility] 07-18-2023 08:58-0400 Heart rate 57 /min Dr. Vern Bernardo Work Phone: [facility] 07-18-2023 08:58-0400 Respiratory rate 18 /min Dr. Vern Bernardo Work Phone: [facility] 07-18-2023 08:58-0400 SaO2% (BldA) [Mass fraction] 97 % Dr. Vern Bernardo Work Phone: [facility] 07-18-2023 08:58-0400 Systolic blood pressure 108 mm[Hg] Dr. Vern Bernardo Work Phone: [facility] 05-30-2023 11:37-0500 Body mass index (BMI) [Ratio] 24 kg/m2 Dr. Vern Bernardo Work Phone: [facility] 05-30-2023 11:37-0500 Body temperature 97.8 [degF] Dr. Vern Bernardo Work Phone: [facility] 05-30-2023 11:37-0500 Body weight 52.[address] Vern Bernardo Work Phone: [facility] 05-30-2023 11:37-0500 Diastolic blood pressure 86 mm[Hg] Dr. Vern Bernardo Work Phone: [facility] 05-30-2023 11:37-0500 Heart rate 70 /min Dr. Vern Bernardo Work Phone: [facility] 05-30-2023 11:37-0500 Respiratory rate 16 /min Dr. Vern Bernardo Work Phone: [facility] 05-30-2023 11:37-0500 SaO2% (BldA) [Mass fraction] 99 % Dr. Vern Bernardo Work Phone: [facility] 05-30-2023 11:37-0500 Systolic blood pressure 142 mm[Hg] Dr. Vern Bernardo Work Phone: [facility] 12-20-2022 15:00-0400 Body height 147.[address] Vern Bernardo Work Phone: [facility] 12-20-2022 15:00-0400 Body mass index (BMI) [Ratio] 22.8 kg/m2 Dr. Vern Bernardo Work Phone: [facility] 12-20-2022 15:00-0400 Body temperature 97.3 [degF] Dr. Vern Bernardo Work Phone: [facility] 12-20-2022 15:00-0400 Body weight 49.[address] Vern Bernardo Work Phone: [facility] 12-20-2022 15:00-0400 Diastolic blood pressure 71 mm[Hg] Dr. Vern Bernardo Work Phone: [facility] 12-20-2022 15:00-0400 Heart rate 69 /min Dr. Vern Bernardo Work Phone: [facility] 12-20-2022 15:00-0400 Respiratory rate 18 /min Dr. Vern Bernardo Work Phone: [facility] 12-20-2022 15:00-0400 SaO2% (BldA) [Mass fraction] 97 % Dr. Vern Bernardo Work Phone: [facility] 12-20-2022 15:00-0400 Systolic blood pressure 113 mm[Hg] Dr. Vern Bernardo Work Phone: [facility] 12-05-2022 09:27-0400 Body temperature 97.59 [degF] Treatment Wstr Work Phone: [facility] 12-05-2022 09:27-0400 Body weight 50.12 kg Treatment Wstr Work Phone: [facility] 12-05-2022 09:27-0400 Diastolic blood pressure 60 mm[Hg] Treatment Wstr Work Phone: [facility] 12-05-2022 09:27-0400 Heart rate 61 /min Treatment Wstr Work Phone: [facility] 12-05-2022 09:27-0400 Respiratory rate 18 /min Treatment Wstr Work Phone: [facility] 12-05-2022 09:27-0400 SaO2% (BldA) [Mass fraction] 99 % Treatment Wstr Work Phone: [facility] 12-05-2022 09:27-0400 Systolic blood pressure 119 mm[Hg] Treatment Wstr Work Phone: [facility] 11-28-2022 14:35-0400 Body temperature 97.81 [degF] Ruddy Mazariegosi DO Work Phone: [facility] 11-28-2022 14:35-0400 Body weight 48.53 kg Ruddy Delilahi DO Work Phone: [facility] 11-28-2022 14:35-0400 Diastolic blood pressure 58 mm[Hg] Ruddy Delilahi DO Work Phone: [facility] 11-28-2022 14:35-0400 Heart rate 60 /min Ruddy Delilahi DO Work Phone: [facility] 11-28-2022 14:35-0400 SaO2% (BldA) [Mass fraction] 96 % Ruddy Mazariegosi DO Work Phone: [facility] 11-28-2022 14:35-0400 Systolic blood pressure 123 mm[Hg] Ruddy Mazariegosi DO Work Phone: [facility] 11-26-2022 11:26-0400 Body height 147.[address] Vern Bernardo Work Phone: [facility] 11-26-2022 11:26-0400 Body mass index (BMI) [Ratio] 22.1 kg/m2 Dr. Vern Bernardo Work Phone: [facility] 11-26-2022 11:26-0400 Body temperature 98.2 [degF] Dr. Vern Bernardo Work Phone: [facility] 11-26-2022 11:26-0400 Body weight 48.[address] Vern Bernardo Work Phone: [facility] 11-26-2022 11:26-0400 Diastolic blood pressure 74 mm[Hg] Dr. Vern Bernardo Work Phone: [facility] 11-26-2022 11:26-0400 Heart rate 70 /min Dr. Vern Bernardo Work Phone: [facility] 11-26-2022 11:26-0400 Respiratory rate 16 /min Dr. Vern Bernardo Work Phone: [facility] 11-26-2022 11:26-0400 SaO2% (BldA) [Mass fraction] 98 % Dr. Vern Bernardo Work Phone: [facility] 11-26-2022 11:26-0400 Systolic blood pressure 128 mm[Hg] Dr. Vern Bernardo Work Phone: [facility] 11-13-2022 08:25-0400 Body temperature 97.5 [degF] Treatment Wstr Work Phone: [facility] 11-13-2022 08:25-0400 Body weight 48.99 kg Treatment Wstr Work Phone: [facility] 11-13-2022 08:25-0400 Diastolic blood pressure 54 mm[Hg] Treatment Wstr Work Phone: [facility] 11-13-2022 08:25-0400 Heart rate 61 /min Treatment Wstr Work Phone: [facility] 11-13-2022 08:25-0400 Respiratory rate 16 /min Treatment Wstr Work Phone: [facility] 11-13-2022 08:25-0400 Systolic blood pressure 114 mm[Hg] Treatment Wstr Work Phone: [facility] 11-05-2022 10:42-0400 Body temperature 97 [degF] Ruddy Masci DO Work Phone: [facility] 11-05-2022 10:42-0400 Body weight 50.35 kg Ruddy Masci DO Work Phone: [facility] 11-05-2022 10:42-0400 Diastolic blood pressure 54 mm[Hg] Ruddy Masci DO Work Phone: [facility] 11-05-2022 10:42-0400 Heart rate 58 /min Ruddy Masci DO Work Phone: [facility] 11-05-2022 10:42-0400 SaO2% (BldA) [Mass fraction] 99 % Ruddy Masci DO Work Phone: [facility] 11-05-2022 10:42-0400 Systolic blood pressure 126 mm[Hg] Ruddy Patricio DO Work Phone: [facility] 08-01-2022 08:00-0400 Body temperature 97.59 [degF] Treatment Wstr Work Phone: [facility] 08-01-2022 08:00-0400 Body weight 48.99 kg Treatment Wstr Work Phone: [facility] 08-01-2022 08:00-0400 Diastolic blood pressure 60 mm[Hg] Treatment Wstr Work Phone: [facility] 08-01-2022 08:00-0400 Heart rate 63 /min Treatment Wstr Work Phone: [facility] 08-01-2022 08:00-0400 SaO2% (BldA) [Mass fraction] 98 % Treatment Wstr Work Phone: [facility] 08-01-2022 08:00-0400 Systolic blood pressure 129 mm[Hg] Treatment Wstr Work Phone: [facility] 07-26-2022 13:34-0400 Body height 147.3 cm Vishal Pichardo MD Work Phone: [facility] 07-26-2022 13:34-0400 Body temperature 97.59 [degF] Vishal Pichardo MD Work Phone: [facility] 07-26-2022 13:34-0400 Body weight 49.8 kg Vishal Pichardo MD Work Phone: [facility] 07-26-2022 13:34-0400 Diastolic blood pressure 68 mm[Hg] Vishal Pichardo MD Work Phone: [facility] 07-26-2022 13:34-0400 Heart rate 84 /min Vishal Pichardo MD Work Phone: [facility] 07-26-2022 13:34-0400 SaO2% (BldA) [Mass fraction] 98 % Vishal Pichardo MD Work Phone: [facility] 07-26-2022 13:34-0400 Systolic blood pressure 122 mm[Hg] Vishal Pichardo MD Work Phone: [facility] 07-25-2022 08:23-0400 Body temperature 97.11 [degF] Treatment Wstr Work Phone: [facility] 07-25-2022 08:23-0400 Body weight 49.67 kg Treatment Wstr Work Phone: [facility] 07-25-2022 08:23-0400 Diastolic blood pressure 62 mm[Hg] Treatment Wstr Work Phone: [facility] 07-25-2022 08:23-0400 Heart rate 68 /min Treatment Wstr Work Phone: [facility] 07-25-2022 08:23-0400 Respiratory rate 18 /min Treatment Wstr Work Phone: [facility] 07-25-2022 08:23-0400 SaO2% (BldA) [Mass fraction] 98 % Treatment Wstr Work Phone: [facility] 07-25-2022 08:23-0400 Systolic blood pressure 135 mm[Hg] Treatment Wstr Work Phone: [facility] 07-04-2022 08:59-0400 Body temperature 97.3 [degF] Treatment Wstr Work Phone: [facility] 07-04-2022 08:59-0400 Diastolic blood pressure 61 mm[Hg] Treatment Wstr Work Phone: [facility] 07-04-2022 08:59-0400 Heart rate 73 /min Treatment Wstr Work Phone: [facility] 07-04-2022 08:59-0400 Respiratory rate 16 /min Treatment Wstr Work Phone: [facility] 07-04-2022 08:59-0400 Systolic blood pressure 99 mm[Hg] Treatment Wstr Work Phone: [facility] 06-29-2022 23:51-0400 Heart rate 76 /min Dr. Vern Bernardo Work Phone: [facility] 06-29-2022 23:51-0400 Respiratory rate 18 /min Dr. Vern Bernardo Work Phone: [facility] 06-29-2022 23:51-0400 SaO2% (BldA) [Mass fraction] 98 % Dr. Vern Bernardo Work Phone: [facility] 06-29-2022 20:35-0400 Body height 147.[address] Vern Bernardo Work Phone: [facility] 06-29-2022 20:35-0400 Body mass index (BMI) [Ratio] 26.7 kg/m2 Dr. Vern Bernardo Work Phone: [facility] 06-29-2022 20:35-0400 Body temperature 98 [degF] Dr. Vern Bernardo Work Phone: [facility] 06-29-2022 20:35-0400 Body weight 58.[address] Vern Bernardo Work Phone: [facility] 06-29-2022 20:35-0400 Diastolic blood pressure 69 mm[Hg] Dr. Vern Bernardo Work Phone: [facility] 06-29-2022 20:35-0400 Systolic blood pressure 110 mm[Hg] Dr. Vern Bernardo Work Phone: [facility] 06-29-2022 11:17-0400 Body temperature 97.8 [degF] Dr. Vern Bernardo Work Phone: [facility] 06-29-2022 11:17-0400 Diastolic blood pressure 52 mm[Hg] Dr. Vern Bernardo Work Phone: [facility] 06-29-2022 11:17-0400 Heart rate 75 /min Dr. Vern Bernardo Work Phone: [facility] 06-29-2022 11:17-0400 Respiratory rate 18 /min Dr. Vern Bernardo Work Phone: [facility] 06-29-2022 11:17-0400 Systolic blood pressure 118 mm[Hg] Dr. Vern Bernardo Work Phone: [facility] 06-27-2022 09:00-0400 Body temperature 97.9 [degF] Treatment Wstr Work Phone: [facility] 06-27-2022 09:00-0400 Diastolic blood pressure 50 mm[Hg] Treatment Wstr Work Phone: [facility] 06-27-2022 09:00-0400 Heart rate 68 /min Treatment Wstr Work Phone: [facility] 06-27-2022 09:00-0400 Systolic blood pressure 104 mm[Hg] Treatment Wstr Work Phone: [facility] 06-25-2022 15:05-0400 Body temperature 97.2 [degF] Dr. Vern Bernardo Work Phone: [facility] 06-25-2022 15:05-0400 Diastolic blood pressure 53 mm[Hg] Dr. Vern Bernardo Work Phone: [facility] 06-25-2022 15:05-0400 Heart rate 66 /min Dr. Vern Bernardo Work Phone: [facility] 06-25-2022 15:05-0400 Respiratory rate 18 /min Dr. Vern Bernardo Work Phone: [facility] 06-25-2022 15:05-0400 Systolic blood pressure 95 mm[Hg] Dr. Vern Bernardo Work Phone: [facility] 06-25-2022 10:33-0400 Body temperature 98.2 [degF] Dr. Vern Bernardo Work Phone: [facility] 06-25-2022 10:33-0400 Diastolic blood pressure 50 mm[Hg] Dr. Vern Bernardo Work Phone: [facility] 06-25-2022 10:33-0400 Heart rate 67 /min Dr. Vern Bernardo Work Phone: [facility] 06-25-2022 10:33-0400 Respiratory rate 16 /min Dr. Vern Bernardo Work Phone: [facility] 06-25-2022 10:33-0400 SaO2% (BldA) [Mass fraction] 95 % Dr. Vern Bernardo Work Phone: [facility] 06-25-2022 10:33-0400 Systolic blood pressure 105 mm[Hg] Dr. Vern Bernardo Work Phone: [facility] 06-22-2022 14:29-0400 Diastolic blood pressure 64 mm[Hg] Dr. Vern Bernardo Work Phone: [facility] 06-22-2022 14:29-0400 Heart rate 72 /min Dr. Vern Bernardo Work Phone: [facility] 06-22-2022 14:29-0400 Respiratory rate 18 /min Dr. Vern Bernardo Work Phone: [facility] 06-22-2022 14:29-0400 Systolic blood pressure 113 mm[Hg] Dr. Vern Bernardo Work Phone: [facility] 06-15-2022 09:25-0400 Body temperature 97.8 [degF] Dr. Vern Bernardo Work Phone: [facility] 06-15-2022 09:25-0400 Diastolic blood pressure 62 mm[Hg] Dr. Vern Bernardo Work Phone: [facility] 06-15-2022 09:25-0400 Heart rate 88 /min Dr. Vern Bernardo Work Phone: [facility] 06-15-2022 09:25-0400 Respiratory rate 16 /min Dr. Vern Bernardo Work Phone: [facility] 06-15-2022 09:25-0400 Systolic blood pressure 118 mm[Hg] Dr. Vern Bernardo Work Phone: [facility] 06-13-2022 13:00-0400 Body temperature 97.7 [degF] Treatment Wstr Work Phone: [facility] 06-13-2022 13:00-0400 Body weight 48.08 kg Treatment Wstr Work Phone: [facility] 06-13-2022 13:00-0400 Diastolic blood pressure 76 mm[Hg] Treatment Wstr Work Phone: [facility] 06-13-2022 13:00-0400 Heart rate 86 /min Treatment Wstr Work Phone: [facility] 06-13-2022 13:00-0400 Systolic blood pressure 137 mm[Hg] Treatment Wstr Work Phone: [facility] 06-11-2022 14:38-0400 Body temperature 97.7 [degF] Dr. Vern Bernardo Work Phone: [facility] 06-11-2022 14:38-0400 Diastolic blood pressure 71 mm[Hg] Dr. Vern Bernardo Work Phone: [facility] 06-11-2022 14:38-0400 Heart rate 94 /min Dr. Vern Bernardo Work Phone: [facility] 06-11-2022 14:38-0400 Inhaled oxygen flow rate 2 L/min Dr. Vern Bernardo Work Phone: [facility] 06-11-2022 14:38-0400 Respiratory rate 18 /min Dr. Vern Bernardo Work Phone: [facility] 06-11-2022 14:38-0400 Systolic blood pressure 109 mm[Hg] Dr. Vern Bernardo Work Phone: [facility] 06-07-2022 08:15-0500 Body temperature 96.6 [degF] Dr. Vern Bernardo Work Phone: [facility] 06-07-2022 08:15-0500 Diastolic blood pressure 42 mm[Hg] Dr. Vern Bernardo Work Phone: [facility] 06-07-2022 08:15-0500 Heart rate 56 /min Dr. Vern Bernardo Work Phone: [facility] 06-07-2022 08:15-0500 Inhaled oxygen flow rate 2 L/min Dr. Vern Bernardo Work Phone: [facility] 06-07-2022 08:15-0500 Respiratory rate 18 /min Dr. Vern Bernardo Work Phone: [facility] 06-07-2022 08:15-0500 Systolic blood pressure 99 mm[Hg] Dr. Vern Bernardo Work Phone: [facility] 06-05-2022 08:25-0500 Body temperature 97.8 [degF] Dr. Vern Bernardo Work Phone: [facility] 06-05-2022 08:25-0500 Diastolic blood pressure 56 mm[Hg] Dr. Vern Bernardo Work Phone: [facility] 06-05-2022 08:25-0500 Heart rate 77 /min Dr. Vern Bernardo Work Phone: [facility] 06-05-2022 08:25-0500 Inhaled oxygen flow rate 2 L/min Dr. Vern Bernardo Work Phone: [facility] 06-05-2022 08:25-0500 Respiratory rate 18 /min Dr. Vern Bernardo Work Phone: [facility] 06-05-2022 08:25-0500 Systolic blood pressure 114 mm[Hg] Dr. Vern Bernardo Work Phone: [facility] 06-01-2022 08:47-0500 Body temperature 97.5 [degF] Ruddy Patricio DO Work Phone: [facility] 06-01-2022 08:47-0500 Body weight 52.62 kg Ruddy Patricio DO Work Phone: [facility] 06-01-2022 08:47-0500 Diastolic blood pressure 64 mm[Hg] Ruddy Mazariegosi DO Work Phone: [facility] 06-01-2022 08:47-0500 Heart rate 71 /min Ruddy Mazariegosi DO Work Phone: [facility] 06-01-2022 08:47-0500 SaO2% (BldA) [Mass fraction] 97 % Ruddy Mazariegosi DO Work Phone: [facility] 06-01-2022 08:47-0500 Systolic blood pressure 112 mm[Hg] Ruddy Mazariegosi DO Work Phone: [facility] 05-31-2022 14:52-0500 Body temperature 98.4 [degF] Dr. Vern Bernardo Work Phone: [facility] 05-31-2022 14:52-0500 Diastolic blood pressure 89 mm[Hg] Dr. Vern Bernardo Work Phone: [facility] 05-31-2022 14:52-0500 Heart rate 56 /min Dr. Vern Bernardo Work Phone: [facility] 05-31-2022 14:52-0500 Respiratory rate 18 /min Dr. Vren Bernardo Work Phone: [facility] 05-31-2022 14:52-0500 SaO2% (BldA) [Mass fraction] 94 % Dr. Vern Bernrado Work Phone: [facility] 05-31-2022 14:52-0500 Systolic blood pressure 123 mm[Hg] Dr. Vern Bernardo Work Phone: [facility] 05-31-2022 14:21-0500 Inhaled oxygen flow rate 2 L/min Dr. Vern Bernardo Work Phone: [facility] 05-31-2022 05:47-0500 Body mass index (BMI) [Ratio] 24.5 kg/m2 Dr. Vern Bernardo Work Phone: [facility] 05-31-2022 05:47-0500 Body weight 53.[address] Vern Bernardo Work Phone: [facility] 05-29-2022 10:42-0500 Body height 147.[address] Vern Bernardo Work Phone: [facility] 05-24-2022 16:03-0500 Body temperature 98 [degF] Dr. Vern Bernardo Work Phone: [facility] 05-24-2022 16:03-0500 Diastolic blood pressure 53 mm[Hg] Dr. Vern Bernardo Work Phone: [facility] 05-24-2022 16:03-0500 Heart rate 65 /min Dr. Vern Bernardo Work Phone: [facility] 05-24-2022 16:03-0500 Inhaled oxygen flow rate 1 L/min Dr. Vern Bernardo Work Phone: [facility] 05-24-2022 16:03-0500 Respiratory rate 22 /min Dr. Vern Bernardo Work Phone: [facility] 05-24-2022 16:03-0500 SaO2% (BldA) [Mass fraction] 94 % Dr. Vern Bernardo Work Phone: [facility] 05-24-2022 16:03-0500 Systolic blood pressure 97 mm[Hg] Dr. Vern Bernardo Work Phone: [facility] 05-24-2022 12:30-0500 Body height 147.[address] Vern Bernardo Work Phone: [facility] 05-24-2022 12:30-0500 Body mass index (BMI) [Ratio] 56.9 kg/m2 Dr. Vern Bernardo Work Phone: [facility] 05-24-2022 12:30-0500 Body weight 123.[address] Vern Bernardo Work Phone: [facility] 05-24-2022 11:07-0500 Body temperature 97.8 [degF] Dr. Vern Bernardo Work Phone: [facility] 05-24-2022 11:07-0500 Body weight 56.[address] Vern Bernardo Work Phone: [facility] 05-24-2022 11:07-0500 Diastolic blood pressure 58 mm[Hg] Dr. Vern Bernardo Work Phone: [facility] 05-24-2022 11:07-0500 Heart rate 80 /min Dr. Vern Bernardo Work Phone: [facility] 05-24-2022 11:07-0500 Respiratory rate 16 /min Dr. Vern Bernardo Work Phone: [facility] 05-24-2022 11:07-0500 SaO2% (BldA) [Mass fraction] 90 % Dr. Vern Bernardo Work Phone: [facility] 05-24-2022 11:07-0500 Systolic blood pressure 113 mm[Hg] Dr. Vern Bernardo Work Phone: [facility] 05-20-2022 18:39-0500 Heart rate 110 /min Dr. Vern Bernardo Work Phone: [facility] 05-20-2022 18:39-0500 SaO2% (BldA) [Mass fraction] 99 % Dr. Vern Bernardo Work Phone: [facility] 05-20-2022 16:13-0500 Diastolic blood pressure 71 mm[Hg] Dr. Vern Bernardo Work Phone: [facility] 05-20-2022 16:13-0500 Inhaled oxygen flow rate 2 L/min Dr. Vern Bernardo Work Phone: [facility] 05-20-2022 16:13-0500 Respiratory rate 16 /min Dr. Vern Bernardo Work Phone: [facility] 05-20-2022 16:13-0500 Systolic blood pressure 127 mm[Hg] Dr. Vern Bernardo Work Phone: [facility] 05-20-2022 13:31-0500 Body height 147.[address] Vern Bernardo Work Phone: [facility] 05-20-2022 13:31-0500 Body mass index (BMI) [Ratio] 25 kg/m2 Dr. Vern Bernardo Work Phone: [facility] 05-20-2022 13:31-0500 Body temperature 96 [degF] Dr. Vern Bernardo Work Phone: [facility] 05-20-2022 13:31-0500 Body weight 54.[address] Vern Bernardo Work Phone: [facility] 05-14-2022 15:10-0500 Body height 148.6 cm Pacc 1 Work Phone: [facility] 05-14-2022 15:10-0500 Body temperature 98.91 [degF] Pacc 1 Work Phone: [facility] 05-14-2022 15:10-0500 Body weight 57.61 kg Pacc 1 Work Phone: [facility] 05-14-2022 15:10-0500 Diastolic blood pressure 70 mm[Hg] Pacc 1 Work Phone: [facility] 05-14-2022 15:10-0500 Heart rate 99 /min Pacc 1 Work Phone: [facility] 05-14-2022 15:10-0500 Respiratory rate 14 /min Pacc 1 Work Phone: [facility] 05-14-2022 15:10-0500 SaO2% (BldA) [Mass fraction] 98 % Pacc 1 Work Phone: [facility] 05-14-2022 15:10-0500 Systolic blood pressure 118 mm[Hg] [facility] 1 Work Phone: [facility] 04-30-2022 15:51-0500 Body height 147.[address] Vern Bernardo Work Phone: [facility] 04-30-2022 15:51-0500 Body weight 52.[address] Vern Bernardo Work Phone: [facility] 04-30-2022 13:27-0500 Body temperature 98.8 [degF] Dr. Vern Bernardo Work Phone: [facility] 04-30-2022 13:27-0500 Diastolic blood pressure 48 mm[Hg] Dr. Vern Bernardo Work Phone: [facility] 04-30-2022 13:27-0500 Heart rate 72 /min Dr. Vern Bernardo Work Phone: [facility] 04-30-2022 13:27-0500 Respiratory rate 18 /min Dr. Vern Bernardo Work Phone: [facility] 04-30-2022 13:27-0500 SaO2% (BldA) [Mass fraction] 97 % Dr. Vern Bernardo Work Phone: [facility] 04-30-2022 13:27-0500 Systolic blood pressure 111 mm[Hg] Dr. Vern Bernardo Work Phone: [facility] 04-28-2022 12:43-0500 Body mass index (BMI) [Ratio] 24 kg/m2 Dr. Vern Bernardo Work Phone: [facility] 04-28-2022 12:35-0500 Body temperature 97.8 [degF] Dr. Vern Bernardo Work Phone: [facility] 04-28-2022 12:35-0500 Diastolic blood pressure 78 mm[Hg] Dr. Vern Bernardo Work Phone: [facility] 04-28-2022 12:35-0500 Heart rate 74 /min Dr. Vern Bernardo Work Phone: [facility] 04-28-2022 12:35-0500 Respiratory rate 16 /min Dr. Vern Bernardo Work Phone: [facility] 04-28-2022 12:35-0500 SaO2% (BldA) [Mass fraction] 99 % Dr. Vern Bernardo Work Phone: [facility] [facility] 04-28-2022 12:35-0500 Systolic blood pressure 104 mm[Hg] Dr. Vern Bernardo Work Phone: [facility] 04-28-2022 10:25-0500 Body height 149.[address] Vern Bernardo Work Phone: [facility] 04-28-2022 10:25-0500 Body mass index (BMI) [Ratio] 23.6 kg/m2 Dr. Vern Bernardo Work Phone: [facility] 04-28-2022 10:25-0500 Body weight 53.[address] Vern Bernardo Work Phone: [facility] 04-27-2022 10:36-0500 Body weight 53.34 kg Hepatology [address] 04-27-2022 10:36-0500 Diastolic blood pressure 58 mm[Hg] Hepatology [address] 04-27-2022 10:36-0500 Heart rate 73 /min Hep[facility]ology [address] 04-27-2022 10:36-0500 Respiratory rate 16 /min Hepatology [address] 04-27-2022 10:36-0500 SaO2% (BldA) [Mass fraction] 99 % [facility] [address] 04-27-2022 10:36-0500 Systolic blood pressure 126 mm[Hg] Hepatology [address] 04-27-2022 09:56-0500 Body temperature 97.2 [degF] Hepatology [address] 04-19-2022 11:14-0500 Body height 148.6 cm Ary Borden MD Work Phone: [facility] 04-19-2022 11:14-0500 Body temperature 98.4 [degF] Ary Borden MD Work Phone: [facility] 04-19-2022 11:14-0500 Body weight 53.07 kg Ary Borden MD Work Phone: [facility] 04-19-2022 11:14-0500 Diastolic blood pressure 57 mm[Hg] Ary Borden MD Work Phone: [facility] 04-19-2022 11:14-0500 Heart rate 87 /min Ary Borden MD Work Phone: [facility] 04-19-2022 11:14-0500 SaO2% (BldA) [Mass fraction] 100 % Ary Borden MD Work Phone: [facility] 04-19-2022 11:14-0500 Systolic blood pressure 131 mm[Hg] Ary Borden MD Work Phone: [facility] 04-18-2022 11:41-0500 Body height 148.6 cm Brittani Antonio MD Work Phone: [facility] 04-18-2022 11:41-0500 Body temperature 98.49 [degF] Brittani Antonio MD Work Phone: [facility] 04-18-2022 11:41-0500 Body weight 53.62 kg Brittani Antonio MD Work Phone: [facility] 04-18-2022 11:41-0500 Diastolic blood pressure 64 mm[Hg] Brittani Antonio MD Work Phone: [facility] 04-18-2022 11:41-0500 Heart rate 80 /min Brittani Antonio MD Work Phone: [facility] 04-18-2022 11:41-0500 SaO2% (BldA) [Mass fraction] 99 % Brittani Antonio MD Work Phone: [facility] 04-18-2022 11:41-0500 Systolic blood pressure 102 mm[Hg] Brittani Antonio MD Work Phone: [facility] 04-13-2022 11:08-0500 Body weight 53.8 kg Emily Jacobs MD Work Phone: [facility] 04-13-2022 11:08-0500 Diastolic blood pressure 68 mm[Hg] Emily Jacobs MD Work Phone: [facility] 04-13-2022 11:08-0500 Systolic blood pressure 112 mm[Hg] Emily Jacobs MD Work Phone: [facility] 04-04-2022 14:07-0500 Body temperature 97.3 [degF] Dr. Vern Bernardo Work Phone: [facility] 04-04-2022 14:07-0500 Diastolic blood pressure 67 mm[Hg] Dr. Vern Bernardo Work Phone: [facility] 04-04-2022 14:07-0500 Heart rate 68 /min Dr. Vern Bernardo Work Phone: [facility] 04-04-2022 14:07-0500 Respiratory rate 17 /min Dr. Vern Bernardo Work Phone: [facility] 04-04-2022 14:07-0500 SaO2% (BldA) [Mass fraction] 99 % Dr. Vern Bernardo Work Phone: [facility] 04-04-2022 14:07-0500 Systolic blood pressure 126 mm[Hg] Dr. Vern Bernardo Work Phone: [facility] 04-04-2022 10:33-0500 Body temperature 97.5 [degF] Dr. Vern Bernardo Work Phone: [facility] 04-04-2022 10:33-0500 Body weight 54.[address] Vern Bernardo Work Phone: [facility] 04-04-2022 10:33-0500 Diastolic blood pressure 76 mm[Hg] Dr. Vern Bernardo Work Phone: [facility] 04-04-2022 10:33-0500 Heart rate 85 /min Dr. Vern Bernardo Work Phone: [facility] 04-04-2022 10:33-0500 Respiratory rate 16 /min Dr. Vern Bernardo Work Phone: [facility] 04-04-2022 10:33-0500 SaO2% (BldA) [Mass fraction] 96 % Dr. Vern Bernardo Work Phone: [facility] 04-04-2022 10:33-0500 Systolic blood pressure 135 mm[Hg] Dr. Vern Bernardo Work Phone: [facility] 04-03-2022 10:10-0500 Body height 149.[address] Vern Bernardo Work Phone: [facility] 03-29-2022 15:38-0500 Body temperature 98 [degF] Dr. Vern Bernardo Work Phone: [facility] 03-29-2022 15:38-0500 Diastolic blood pressure 80 mm[Hg] Dr. Vern Bernardo Work Phone: [facility] 03-29-2022 15:38-0500 Heart rate 73 /min Dr. Vern Bernardo Work Phone: [facility] 03-29-2022 15:38-0500 Respiratory rate 16 /min Dr. Vern Brenardo Work Phone: [facility] 03-29-2022 15:38-0500 SaO2% (BldA) [Mass fraction] 73 % Dr. Vern Bernardo Work Phone: [facility] 03-29-2022 15:38-0500 Systolic blood pressure 118 mm[Hg] Dr. Vern Bernardo Work Phone: [facility] 02-23-2022 15:08-0500 Diastolic blood pressure 60 mm[Hg] Nir Roth MD Work Phone: [facility] 02-23-2022 15:08-0500 Systolic blood pressure 156 mm[Hg] Nir Roth MD Work Phone: [facility] 02-23-2022 15:07-0500 Body height 148.6 cm Nir Roth MD Work Phone: [facility] 02-23-2022 15:07-0500 Body weight 53.48 kg Nir Roth MD Work Phone: [facility] 02-23-2022 15:07-0500 Heart rate 54 /min Nir Roth MD Work Phone: [facility] 02-23-2022 15:07-0500 Respiratory rate 17 /min Nir Roth MD Work Phone: [facility] 02-23-2022 15:07-0500 SaO2% (BldA) [Mass fraction] 100 % Nir Roth MD Work Phone: [facility] 02-21-2022 17:29-0500 Body temperature 97.1 [degF] Dr. Vern Bernardo Work Phone: [facility] 02-21-2022 17:29-0500 Diastolic blood pressure 72 mm[Hg] Dr. Vern Bernardo Work Phone: [facility] 02-21-2022 17:29-0500 Heart rate 60 /min Dr. Vern Bernardo Work Phone: [facility] 02-21-2022 17:29-0500 Respiratory rate 14 /min Dr. Vern Bernardo Work Phone: [facility] 02-21-2022 17:29-0500 SaO2% (BldA) [Mass fraction] 98 % Dr. Vern Bernardo Work Phone: [facility] 02-21-2022 17:29-0500 Systolic blood pressure 152 mm[Hg] Dr. Vern Bernardo Work Phone: [facility] 01-29-2022 14:01-0400 Body height 149.[address] Vern Bernardo Work Phone: [facility] Work Phone: 01-29-2022 14:01-0400 Body mass index (BMI) [Ratio] 24.1 kg/m2 Dr. Vern Bernardo Work Phone: [facility] 01-29-2022 14:01-0400 Body weight 54.[address] Vern Bernardo Work Phone: [facility] 01-29-2022 14:01-0400 Diastolic blood pressure 60 mm[Hg] Dr. Vern Bernardo Work Phone: [facility] 01-29-2022 14:01-0400 Heart rate 64 /min Dr. Vern Bernardo Work Phone: [facility] 01-29-2022 14:01-0400 Respiratory rate 16 /min Dr. Vern Bernardo Work Phone: [facility] 01-29-2022 14:01-0400 Systolic blood pressure 132 mm[Hg] Dr. Vern Bernardo Work Phone: [facility] 12-25-2021 10:23-0400 Body temperature 97.59 [degF] Ruddy Patricio DO Work Phone: [facility] 12-25-2021 10:23-0400 Body weight 53.98 kg Ruddy Mazariegosi DO Work Phone: [facility] 12-25-2021 10:23-0400 Diastolic blood pressure 59 mm[Hg] Ruddy Patricio DO Work Phone: [facility] 12-25-2021 10:23-0400 Heart rate 55 /min Ruddy Mazariegosi DO Work Phone: [facility] 12-25-2021 10:23-0400 Systolic blood pressure 158 mm[Hg] Ruddy Patricio DO Work Phone: [facility] 12-22-2021 08:06-0400 Body height 147.3 cm Khadijah Bartone PA-C Work Phone: [facility] 12-22-2021 08:06-0400 Body weight 51.71 kg Khadijah Bartone PA-C Work Phone: [facility] 12-22-2021 08:06-0400 Diastolic blood pressure 60 mm[Hg] Khadijah Bartone PA-C Work Phone: [facility] 12-22-2021 08:06-0400 Heart rate 57 /min Khadijah Bartone PA-C Work Phone: [facility] 12-22-2021 08:06-0400 Systolic blood pressure 147 mm[Hg] Khadijah Bartone PA-C Work Phone: [facility] 12-19-2021 15:05-0400 Diastolic blood pressure 60 mm[Hg] Dr. Vern Bernardo Work Phone: [facility] Work Phone: 12-19-2021 15:05-0400 Heart rate 56 /min Dr. Vern Bernardo Work Phone: [facility] Work Phone: 12-19-2021 15:05-0400 Respiratory rate 16 /min Dr. Vern Bernardo Work Phone: [facility] Work Phone: 12-19-2021 15:05-0400 Systolic blood pressure 138 mm[Hg] Dr. Vern Bernardo Work Phone: [facility] Work Phone: 12-13-2021 13:12-0400 Body height 146.5 cm [facility] 12-13-2021 13:12-0400 Body weight 52.16 kg [facility] 12-13-2021 13:12-0400 Diastolic blood pressure 53 mm[Hg] [facility] 12-13-2021 13:12-0400 Heart rate 52 /min [facility] 12-13-2021 13:12-0400 SaO2% (BldA) [Mass fraction] 100 % [facility] 12-13-2021 13:12-0400 Systolic blood pressure 119 mm[Hg] [facility] 11-03-2021 09:33-0400 Diastolic blood pressure 59 mm[Hg] Nir Roth MD Work Phone: [facility] 11-03-2021 09:33-0400 Systolic blood pressure 150 mm[Hg] Nir Roth MD Work Phone: [facility] 11-03-2021 09:28-0400 Body height 146.5 cm Nir Roth MD Work Phone: [facility] 11-03-2021 09:28-0400 Body weight 52.62 kg Nir Roth MD Work Phone: [facility] 11-03-2021 09:28-0400 Heart rate 54 /min Nir Roth MD Work Phone: [facility] 11-03-2021 09:28-0400 SaO2% (BldA) [Mass fraction] 100 % Nir Roth MD Work Phone: [facility] 10-18-2021 11:25-0400 Body temperature 98 [degF] Dr. Vern Bernardo Work Phone: [facility] Work Phone: 10-18-2021 11:25-0400 Diastolic blood pressure 62 mm[Hg] Dr. Vern Bernardo Work Phone: [facility] Work Phone: 10-18-2021 11:25-0400 Heart rate 55 /min Dr. Vern Beranrdo Work Phone: [facility] Work Phone: 10-18-2021 11:25-0400 Respiratory rate 14 /min Dr. Vern Bernardo Work Phone: [facility] Work Phone: 10-18-2021 11:25-0400 SaO2% (BldA) [Mass fraction] 99 % Dr. Vern Bernardo Work Phone: [facility] Work Phone: 10-18-2021 11:25-0400 Systolic blood pressure 124 mm[Hg] Dr. Vern Bernardo Work Phone: [facility] Work Phone: 09-29-2021 08:46-0400 Body height 149.86 cm No Primary Care Physician [facility] Work Phone: 09-29-2021 08:46-0400 Body weight 54.43 kg No Primary Care Physician [facility] Work Phone: 09-28-2021 09:02-0400 Body mass index (BMI) [Ratio] 24.2 kg/m2 No Primary Care Physician [facility] Work Phone: 09-14-2021 14:33-0400 Body height 149.86 cm No Primary Care Physician [facility] Work Phone: 09-14-2021 14:33-0400 Body mass index (BMI) [Ratio] 24.2 kg/m2 No Primary Care Physician [facility] Work Phone: 09-14-2021 14:33-0400 Body weight 54.43 kg No Primary Care Physician [facility] Work Phone: 09-14-2021 14:33-0400 Diastolic blood pressure 84 mm[Hg] No Primary Care Physician [facility] Work Phone: 09-14-2021 14:33-0400 Heart rate 64 /min No Primary Care Physician [facility] Work Phone: 09-14-2021 14:33-0400 Respiratory rate 16 /min No Primary Care Physician [facility] Work Phone: 09-14-2021 14:33-0400 Systolic blood pressure 134 mm[Hg] No Primary Care Physician [facility] Work Phone: 08-09-2021 15:39-0400 Body mass index (BMI) [Ratio] 44 kg/m2 No Primary Care Physician [facility] Work Phone: 08-09-2021 15:39-0400 Body temperature 98.2 [degF] No Primary Care Physician [facility] Work Phone: 08-09-2021 15:39-0400 Body weight 98.88 kg No Primary Care Physician [facility] Work Phone: 08-09-2021 15:39-0400 Diastolic blood pressure 74 mm[Hg] No Primary Care Physician [facility] Work Phone: 08-09-2021 15:39-0400 Heart rate 68 /min No Primary Care Physician [facility] Work Phone: 08-09-2021 15:39-0400 Respiratory rate 14 /min No Primary Care Physician [facility] Work Phone: 08-09-2021 15:39-0400 SaO2% (BldA) [Mass fraction] 97 % No Primary Care Physician [facility] Work Phone: 08-09-2021 15:39-0400 Systolic blood pressure 102 mm[Hg] No Primary Care Physician [facility] Work Phone: 08-09-2021 15:39-0400 Body height 149.86 cm No Primary Care Physician [facility] Work Phone: 08-09-2021 15:39-0400 Body mass index (BMI) [Ratio] 44 kg/m2 No Primary Care Physician [facility] Work Phone: 08-09-2021 15:39-0400 Body temperature 98.2 [degF] No Primary Care Physician [facility] Work Phone: 08-09-2021 15:39-0400 Body weight 98.88 kg No Primary Care Physician [facility] Work Phone: 08-09-2021 15:39-0400 Diastolic blood pressure 74 mm[Hg] No Primary Care Physician [facility] Work Phone: 08-09-2021 15:39-0400 Heart rate 68 /min No Primary Care Physician [facility] Work Phone: 08-09-2021 15:39-0400 Respiratory rate 14 /min No Primary Care Physician [facility] Work Phone: 08-09-2021 15:39-0400 SaO2% (BldA) [Mass fraction] 97 % No Primary Care Physician [facility] Work Phone: 08-09-2021 15:39-0400 Systolic blood pressure 102 mm[Hg] No Primary Care Physician [facility] Work Phone: 08-03-2021 15:23-0400 Body height 147 cm Ruddy Mazariegosearthmine Work Phone: [facility] 08-03-2021 15:23-0400 Body temperature 97.3 [degF] Ruddy Mazariegosi DO Work Phone: [facility] 08-03-2021 15:23-0400 Body weight 53.3 kg Ruddy Mazariegosi DO Work Phone: [facility] 08-03-2021 15:23-0400 Diastolic blood pressure 53 mm[Hg] Ruddy Mazariegosi DO Work Phone: [facility] 08-03-2021 15:23-0400 Heart rate 79 /min Ruddy Mazariegosi DO Work Phone: [facility] 08-03-2021 15:23-0400 SaO2% (BldA) [Mass fraction] 98 % Ruddy Mazariegosi Startist Work Phone: [facility] 08-03-2021 15:23-0400 Systolic blood pressure 105 mm[Hg] Ruddy Delilahi DO Work Phone: [facility] 2021 08:42-0400 Diastolic blood pressure 80 mm[Hg] No Primary Care Physician [facility] Work Phone: 2021 08:42-0400 Heart rate 58 /min No Primary Care Physician [facility] Work Phone: 2021 08:42-0400 Respiratory rate 16 /min No Primary Care Physician [facility] Work Phone: 2021 08:42-0400 SaO2% (BldA) [Mass fraction] 99 % No Primary Care Physician [facility] Work Phone: 2021 08:42-0400 Systolic blood pressure 168 mm[Hg] No Primary Care Physician [facility] Work Phone: 2021 08:42-0400 Diastolic blood pressure 80 mm[Hg] No Primary Care Physician [facility] Work Phone: 2021 08:42-0400 Heart rate 58 /min No Primary Care Physician [facility] Work Phone: 2021 08:42-0400 Respiratory rate 16 /min No Primary Care Physician [facility] Work Phone: 2021 08:42-0400 SaO2% (BldA) [Mass fraction] 99 % No Primary Care Physician [facility] Work Phone: 2021 08:42-0400 Systolic blood pressure 168 mm[Hg] No Primary Care Physician [facility] Work Phone: 06-07-2021 14:37-0500 Body temperature 97.7 [degF] No Primary Care Physician [facility] Work Phone: 06-07-2021 14:37-0500 Diastolic blood pressure 98 mm[Hg] No Primary Care Physician [facility] Work Phone: 06-07-2021 14:37-0500 Heart rate 69 /min No Primary Care Physician [facility] Work Phone: 06-07-2021 14:37-0500 Respiratory rate 16 /min No Primary Care Physician [facility] Work Phone: 06-07-2021 14:37-0500 SaO2% (BldA) [Mass fraction] 98 % No Primary Care Physician [facility] Work Phone: 06-07-2021 14:37-0500 Systolic blood pressure 220 mm[Hg] No Primary Care Physician [facility] Work Phone: 06-07-2021 13:37-0500 Body temperature 97.7 [degF] No Primary Care Physician [facility] Work Phone: 06-07-2021 13:37-0500 Diastolic blood pressure 98 mm[Hg] No Primary Care Physician [facility] Work Phone: 06-07-2021 13:37-0500 Heart rate 69 /min No Primary Care Physician [facility] Work Phone: 06-07-2021 13:37-0500 Respiratory rate 16 /min No Primary Care Physician [facility] Work Phone: 06-07-2021 13:37-0500 SaO2% (BldA) [Mass fraction] 98 % No Primary Care Physician [facility] Work Phone: 06-07-2021 13:37-0500 Systolic blood pressure 220 mm[Hg] No Primary Care Physician [facility] Work Phone: 06-05-2021 08:43-0500 Body mass index (BMI) [Ratio] 24.6 kg/m2 No Primary Care Physician [facility] Work Phone: 06-05-2021 08:43-0500 Body temperature 96.3 [degF] No Primary Care Physician [facility] Work Phone: 06-05-2021 08:43-0500 Body weight 55.33 kg No Primary Care Physician [facility] Work Phone: 06-05-2021 08:43-0500 Diastolic blood pressure 78 mm[Hg] No Primary Care Physician [facility] Work Phone: 06-05-2021 08:43-0500 Heart rate 78 /min No Primary Care Physician [facility] Work Phone: 06-05-2021 08:43-0500 Respiratory rate 16 /min No Primary Care Physician [facility] Work Phone: 06-05-2021 08:43-0500 SaO2% (BldA) [Mass fraction] 98 % No Primary Care Physician [facility] Work Phone: 06-05-2021 08:43-0500 Systolic blood pressure 180 mm[Hg] No Primary Care Physician [facility] Work Phone: 06-05-2021 07:43-0500 Body height 149.86 cm No Primary Care Physician [facility] Work Phone: 06-05-2021 07:43-0500 Body mass index (BMI) [Ratio] 24.6 kg/m2 No Primary Care Physician [facility] Work Phone: 06-05-2021 07:43-0500 Body temperature 96.3 [degF] No Primary Care Physician [facility] Work Phone: 06-05-2021 07:43-0500 Body weight 55.33 kg No Primary Care Physician [facility] Work Phone: 06-05-2021 07:43-0500 Diastolic blood pressure 78 mm[Hg] No Primary Care Physician [facility] Work Phone: 06-05-2021 07:43-0500 Heart rate 78 /min No Primary Care Physician [facility] Work Phone: 06-05-2021 07:43-0500 Respiratory rate 16 /min No Primary Care Physician [facility] Work Phone: 06-05-2021 07:43-0500 SaO2% (BldA) [Mass fraction] 98 % No Primary Care Physician [facility] Work Phone: 06-05-2021 07:43-0500 Systolic blood pressure 180 mm[Hg] No Primary Care Physician [facility] Work Phone: Encounters Encounter Date Encounter Type Care Provider Facility Start: 12-28-2024 End: 12-28-2024 ambulatory RUDDY PATRICIO Facility:[facility] Start: 12-01-2024 End: 12-01-2024 ambulatory RUDDY A MASCI Facility:[facility] Start: 11-18-2024 End: 11-18-2024 Refill Tiffany ROSEN Hematology/Oncology Comment on above: Refill Request Start: 11-02-2024 End: 11-02-2024 ambulatory VERN BERNARDO Facility:[facility] Start: 10-16-2024 End: 10-16-2024 Patient encounter procedure Armen Hurd [place] [facility] Work Phone: Start: 10-16-2024 End: 10-16-[address] Vern Bernardo MD Work Phone: [facility] Start: 10-05-2024 End: 10-05-2024 ambulatory RUDDY A MASCI Facility:[facility] Start: 09-07-2024 End: 09-07-2024 Telephone encounter Ruddy A Masci DO Work Phone: Hematology/Oncology Comment on above: Results (Blood press ure) Start: 09-07-2024 End: 09-07-2024 ambulatory RUDDY A MASCI Facility:[facility] Start: 08-31-2024 End: 08-31-2024 Telephone encounter Ruddy A Masci DO Work Phone: Hematology/Oncology Comment on above: Blood Pressure Start: 08-31-2024 End: 08-31-2024 ambulatory RUDDY A MASCI Facility:[facility] Start: 08-25-2024 End: 08-25-2024 Patient encounter procedure Terrell Gutiérrez [place] [facility] Work Phone: Start: 08-25-2024 End: 08-25-[address] 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 Vern Bernardo MD -[facility] Work Phone: Start: 07-09-2024 End: 07-09-2024 ambulatory Vern Bernardo Facility:[facility] Start: 06-08-2024 End: 06-08-2024 ambulatory VERN BERNARDO Facility:[facility] Start: 05-18-2024 End: 05-18-2024 Telephone encounter Ruddy Patricio DO Work Phone: Hematology/Oncology Comment on above: Results Start: 05-14-2024 End: 05-14-2024 ambulatory RUDDY PATRICIO Facility:[facility] Start: 05-14-2024 End: 05-14-2024 Subsequent hospital visit by physician [facility] Work Phone: Radiology Comment on above: RINA (acute kidney in jury) (HCC) [N17.9] Start: 05-12-2024 End: 05-13-2024 Telephone encounter Ruddy Patricio DO Work Phone: Hematology/Oncology Comment on above: Results Start: 05-11-2024 End: 05-11-2024 ambulatory Franklyn Coronel APRN.[employer]NAGER Work Phone: Hematology/Oncology Comment on above: Uterine carcinosarco ma (HCC) (Primary Dx); 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 Vern Bernardo MD -Laboratory Work Phone: Start: 05-01-2024 End: 05-01-2024 ambulatory Vern Bernardo Facility:[facility] Start: 04-28-2024 End: 04-29-2024 Telephone encounter Ruddy Patricio DO Work Phone: Hematology/Oncology Comment on above: Results Start: 04-27-2024 End: 04-27-2024 ambulatory RUDDY PATRICIO Facility:[facility] Start: 04-27-2024 End: 04-27-2024 Subsequent [facility] Work Phone: Radiology Comment on above: Abnormal CT of liver [R93.2] Start: 04-24-2024 End: 04-24-2024 Telephone encounter Tiffany ROSNE Hematology/Oncology Comment on above: 2024 Mary darden Start: 04-23-2024 End: 04-23-2024 Telephone encounter Ruddy Patricio DO Work Phone: Hematology/Oncology Comment on above: Results Start: 04-17-2024 End: 04-17-2024 ambulatory RUDDY PATRICIO Facility:[facility] Start: 04-17-2024 End: 04-17-2024 Subsequent hospital visit by physician [facility] Work Phone: Cat Scan Comment on above: Malignant neoplasm m etastatic to omentum (HCC) [C78.6] Start: 04-10-2024 End: 04-13-2024 Refill Ruddy Patricio DO Work Phone: Hematology/Oncology Start: 03-09-2024 End: 03-10-2024 Social Work Tiffany ROSEN Hematology/Oncology Start: 02-17-2024 End: 02-17-2024 Patient encounter procedure Ruddy Patriico DO Work Phone: Hematology/Oncology Start: 02-17-2024 End: 02-17-2024 ambulatory Ruddy Patricio DO Work Phone: Hematology/Oncology Comment on above: Uterine carcinosarco ma (HCC) (Primary Dx); 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); Pleural effusion; CLL (chronic lymphocytic leukemia) (HCC); Chemotherapy-induced neuropathy (HCC); Other chronic pulmonary embolism without acute cor pulmonale (HCC) Start: 01-20-2024 End: 01-20-2024 ambulatory RUDDY PATRICIO Facility:[facility] Start: 12-25-2023 End: 12-30-2023 Telephone encounter Ruddy Patricio DO Work Phone: Hematology/Oncology Comment on above: Patient Question Start: 11-25-2023 End: 11-25-2023 ambulatory Ruddy Patricio DO Work Phone: Hematology/Oncology Comment on above: Uterine carcinosarco ma (HCC) (Primary Dx); 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); CLL (chronic lymphocytic leukemia) (HCC) Start: 11-25-2023 End: 11-25-2023 Patient encounter procedure Ruddy Patricio DO Work Phone: Hematology/Oncology Start: 10-01-2023 Telephone encounter Ruddy arevalo DO Work Phone: Hematology/Oncology Comment on above: Patient Question Start: 09-24-2023 Telephone encounter Amarilis tineo PA-C Work Phone: Orthopaedics Comment on above: Patient Question Start: 09-06-2023 Telephone encounter Ruddy arevalo DO Work Phone: Hematology/Oncology Comment on above: Patient Question Start: 09-06-2023 End: 09-06-2023 Subsequent hospital visit by physician Preeti [facility] Chris Shoemaker Work Phone: Radiology Comment on above: Pain of right hand [ M79.641] Start: 09-06-2023 End: 09-06-2023 Patient encounter procedure Amarilis Garduno PA-C Work Phone: Orthopaedics Comment on above: De Quervain's diseas e (tenosynovitis) (Primary Dx); Pain of right hand; Tendonitis of wrist, right; Bilateral hand numbness Start: 09-02-2023 Telephone encounter Ruddy arevalo DO Work Phone: Hematology/Oncology Comment on above: Results Start: 08-23-2023 End: 08-23-2023 ambulatory Ruddy Patricio DO Work Phone: Hematology/Oncology Comment on above: Uterine carcinosarco ma (HCC) (Primary Dx); 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 Vern Bernardo Work Phone: [facility] Work Phone: Start: 07-23-2023 End: 07-23-[address] Vern Bernardo Work Phone: [facility]-Laboratory Work Phone: Start: 07-18-2023 End: 07-18-[address] Vern Bernardo Work Phone: [facility] Work Phone: Start: 05-30-2023 End: 05-30-[address] Vern Bernardo Work Phone: [facility] Work Phone: Start: 05-20-2023 Telephone encounter Ruddy arevalo DO Work Phone: Hematology/Oncology Start: 05-13-2023 Telephone encounter Ruddy arevalo DO Work Phone: Hematology/Oncology Comment on above: Results Start: 04-02-2023 End: 04-02-[address] Vern Bernardo Work Phone: [facility] Work Phone: Start: 04-02-2023 End: 04-02-[address] Vern Bernardo Work Phone: [facility]-Laboratory Work Phone: Start: 03-21-2023 Telephone encounter Ruddy arevalo DO Work Phone: Hematology/Oncology Comment on above: Results Start: 03-12-2023 Telephone encounter Maegan Murguia RN He matology/Oncology Comment on above: Chief Of Service - O ther (Oral Anti-Cancer Agents Follow-up (olaparib) ) Start: 03-01-2023 Telephone encounter Ruddy arevalo DO Work Phone: Hematology/Oncology Comment on above: Chief Of Service - O ther (Received olaparib ) Start: 02-19-2023 Refill Ruddy Juares Work Phone: Hematology/Oncology Comment on above: Refill Request Start: 02-08-2023 Telephone encounter Maegan Murguia RN He matology/Oncology Comment on above: Chief Of Service - O ther (Oral Anti-Cancer Agents (Olaparib) ) Start: 01-31-2023 Telephone encounter Ruddy arevalo DO Work Phone: Hematology/Oncology Comment on above: Appointment Start: 12-28-2022 Telephone encounter Tiffany ROSEN Hematology/Oncology Comment on above: Social Work Services Start: 12-21-2022 Telephone encounter Ruddy arevalo DO Work Phone: Hematology/Oncology Comment on above: Question Start: 12-20-2022 End: 12-20-[address] 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 Start: 11-28-2022 Telephone encounter Ruddy arevalo DO Work Phone: Hematology/Oncology Comment on above: Results Start: 11-27-2022 End: 11-27-[address] Vern Bernardo Work Phone: [facility] Work Phone: Start: 11-27-2022 End: 11-27-[address] Vern Bernardo Work Phone: [facility]-Laboratory Work Phone: Start: 11-26-2022 End: 11-26-[address] 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) Start: 11-05-2022 End: 11-05-2022 ambulatory Ruddy Patricio DO Work Phone: Hematology/Oncology Comment on above: Uterine carcinosarco ma (HCC) (Primary Dx); CLL (chronic lymphocytic leukemia) (HCC) Start: 11-05-2022 End: 11-05-2022 Patient encounter procedure Ruddy Patricio DO [facility] Phone[facility] Start: 11-02-2022 Orders Only Ruddy Patricio D O Work Phone: Hematology/Oncology Comment on above: Uterine carcinosarco ma (HCC) (Primary Dx); 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) Start: 10-01-2022 Telephone encounter Ruddy arevalo DO Work Phone: Hematology/Oncology Comment on above: Patient Update; CHEM O RESTART Start: 09-06-2022 End: 09-06-2022 Subsequent hospital visit by physician Xr [facility] Chris Mob Work Phone: Radiology Comment on above: Pleural effusion [J9 0] Start: 08-30-2022 Telephone encounter Ruddy arevalo DO Work Phone: Hematology/Oncology Comment on above: Results Start: 08-29-2022 Telephone encounter Vishal Pichardo MD Work Phone: General Surgery Comment on above: Patient Question Start: 08-01-2022 Telephone encounter Ruddy arevalo DO Work Phone: Hematology/Oncology Comment on above: Results (Low potassi um) Start: 08-01-2022 End: 08-01-2022 ambulatory Treatment Rm 10 Rubin [facility] Work Phone: Hematology/Oncology Comment on above: Uterine carcinosarco ma (HCC) (Primary Dx); 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) Start: 07-31-2022 Orders Only Ruddy Juares Work Phone: Hematology/Oncology Comment on above: Uterine carcinosarco ma (HCC) (Primary Dx); 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); S/P TAVR (transcatheter aortic valve replacement); CLL (chronic lymphocytic leukemia) (HCC) Start: 07-26-2022 End: 07-26-2022 Patient encounter procedure Vishal Pichardo MD Work Phone: General Surgery Comment on above: Pleural effusion (Pr imary Dx) Start: 07-25-2022 End: 07-25-2022 Subsequent hospital visit by physician Xr [facility] Work Phone: Radiology Comment on above: Pleural effusion [J9 0] Start: 07-25-2022 End: 07-25-2022 ambulatory Treatment Rm 8 [facility] Work Phone: Hematology/Oncology Comment on above: Uterine carcinosarco ma (HCC) (Primary Dx); 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 Records Start: 07-18-2022 End: 07-18-2022 Nursing evaluation of patient and report Nurse Yousif [facility] [employer] Work Phone: General Surgery Comment on above: Pleural effusion (Pr imary Dx) Start: 07-18-2022 Telephone encounter Ruddy arevalo DO Work Phone: Hematology/Oncology Comment on above: Patient Question Start: 07-17-2022 End: 07-17-[address] Vern Bernardo Work Phone: [facility] Work Phone: Start: 07-17-2022 End: 07-17-2022 Dr. 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 Start: 07-11-2022 End: 07-11-2022 Nutrition therapy Regina Westfall RD Work Phone: Nutrition Therapy Comment on above: Nutrition Counseling Start: 07-05-2022 End: 07-05-2022 Subsequent hospital visit by physician Xr [facility] [employer] Work Phone: Radiology Comment on above: Pleural effusion [J9 0] Start: 07-05-2022 Telephone encounter Regina granda PA-C Work Phone: General Surgery Comment on above: Results Start: 07-05-2022 End: 07-05-2022 Patient encounter procedure Regina Ramirez PA-C Work Phone: General Surgery Comment on above: Pleural effusion (Pr imary Dx); Chest discomfort Start: 07-04-2022 End: 07-04-2022 ambulatory Treatment Rm 10 Rubin [facility] Work Phone: Hematology/Oncology Comment on above: Uterine carcinosarco ma (HCC) (Primary Dx); 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 Start: 06-29-2022 End: 06-29-2022 Emergency department patient visit Dr. Vern Bernardo Work Phone: [facility] Work Phone: Start: 06-29-2022 End: 06-29-2022 Dr. Vern Bernardo Work Phone: [facility]-Emergency Department Start: 06-29-2022 End: 06-29-[address] Vern Bernardo Work Phone: [facility] Work Phone: Start: 06-29-2022 End: 06-29-2022 Dr. Vern Bernardo Work Phone: [facility] Start: 06-28-2022 End: 06-28-2022 Subsequent hospital visit by physician Xr [facility] Work Phone: Radiology Comment on above: Pleural effusion [J9 0] Start: 06-27-2022 Telephone encounter Ruddy arevalo DO Work Phone: Hematology/Oncology Comment on above: Patient Update Start: 06-27-2022 End: 06-27-2022 ambulatory Treatment Rm 5 Rubin [facility] Work Phone: Hematology/Oncology Comment on above: Uterine carcinosarco ma (HCC) (Primary Dx); Omental metastasis (HCC) Start: 06-26-2022 Telephone encounter Ruddy arevalo DO Work Phone: Hematology/Oncology Comment on above: Results (Echocardiog jaime) Start: 06-25-2022 End: 06-25-2022 Dr. Vern Bernardo Work Phone: [facility] Start: 06-25-2022 End: 06-25-2022 Orders Only Ruddy Patricio DO Work Phone: Hematology/Oncology Comment on above: Uterine carcinosarco ma (HCC) (Primary Dx); Omental metastasis (HCC); Other ascites; Pleural effusion; CLL (chronic lymphocytic leukemia) (HCC); S/P TAVR (transcatheter aortic valve replacement); Elevated cancer antigen 125 (CA 125) Patient Update Start: 06-25-2022 End: 06-25-2022 Dr. Vern Bernardo Work Phone: [facility] Start: 06-22-2022 End: 06-22-2022 Dr. Vern Bernardo Work Phone: [facility] Start: 06-18-2022 Telephone encounter Financial Navigator Rubin Work Phone: Financial Services Comment on above: Benefits Investigati on Start: 06-15-2022 End: 06-15-[address] Vern Bernardo Work Phone: [facility] Work Phone: Start: 06-15-2022 End: 06-15-[address] Vern Bernardo Work Phone: [facility] Start: 06-15-2022 End: 06-15-2022 Dr. Vern Bernardo Work Phone: [facility] Start: 06-14-2022 Telephone encounter Maegan Murguia RN He matology/Oncology Comment on above: Chief Of Service - O ther (Toxicity Check ) Start: 06-13-2022 Telephone encounter Ruddy arevalo DO Work Phone: Hematology/Oncology Comment on above: Patient Update Start: 06-13-2022 End: 06-13-2022 ambulatory Treatment Rm 5 Rubin [facility] Work Phone: Hematology/Oncology Comment on above: Uterine carcinosarco ma (HCC) (Primary Dx); Omental metastasis (HCC) Start: 06-13-2022 End: 06-13-[address] Vern Bernardo Work Phone: [facility] Work Phone: Start: 06-13-2022 End: 06-13-[address] Vern Bernardo Work Phone: [facility] Start: 06-13-2022 End: 06-13-2022 Dr. Vern Bernardo Work Phone: [facility] Start: 06-12-2022 Orders Only Ruddy Pardo Venkat Juares Work Phone: Hematology/Oncology Comment on above: Uterine carcinosarco ma (HCC) (Primary Dx); Omental metastasis (HCC); Other ascites; Pleural effusion; CLL (chronic lymphocytic leukemia) (HCC) Start: 06-11-2022 End: 06-11-[address] Vern Bernardo Work Phone: [facility] Work Phone: Start: 06-11-2022 End: 06-11-[address] Vern Bernardo Work Phone: [facility] Start: 06-11-2022 End: 06-11-2022 Dr. Vern Bernardo Work Phone: [facility] Start: 06-08-2022 Telephone encounter Tiffany ROSEN Hematology/Oncology Comment on above: Social Work Services Start: 06-08-2022 End: 06-08-[address] Work Phone: [facility] Start: 06-08-2022 End: 06-08-2022 Nutrition therapy Regina Westfall RD Work Phone: Nutrition Therapy Comment on above: Nutrition Assessment Start: 06-07-2022 Telephone encounter Maegan Murguia RN He matology/Oncology Comment on above: Chief Of Service - O ther (C1D1 Post Treatment Call (Taxol/Carbo) ) Start: 06-07-2022 End: 06-07-[address] Vern Bernardo Work Phone: [facility] Work Phone: Start: 06-07-2022 End: 06-07-[address] Vern Bernardo Work Phone: [facility] Start: 06-07-2022 End: 06-07-2022 Dr. Vern Bernardo Work Phone: [facility], [facility] Start: 06-05-2022 End: 06-06-2022 ambulatory Ary Borden MD Work Phone: Gynecology Oncology Comment on above: Carcinosarcoma (HCC) (Primary Dx) Start: 06-05-2022 End: 06-06-2022 Telemedicine consultation with patient Ary Borden MD Work Phone: [facility] Start: 06-05-2022 Telephone encounter Ruddy arevalo DO Work Phone: Hematology/Oncology Comment on above: chemo appt. Start: 06-05-2022 End: 06-05-[address] Vern Bernardo Work Phone: [facility] Work Phone: Start: 06-05-2022 End: 06-05-[address] Vern Bernardo Work Phone: [facility] Start: 06-05-2022 End: 06-05-2022 Dr. Vern Bernardo Work Phone: [facility] Start: 06-04-2022 Telephone encounter Ruddy arevalo DO Work Phone: Hematology/Oncology Comment on above: Patient Question Returning Patient's Call Appointment Start: 06-04-2022 End: 06-04-2022 seedling puller [facility] Work Phone: Hematology/Oncology Comment on above: Encounter for educat ion (Primary Dx) Start: 06-01-2022 End: 06-01-2022 ambulatory Ruddy Patricio DO Work Phone: Hematology/Oncology Comment on above: Uterine carcinosarco ma (HCC) (Primary Dx); Omental metastasis (HCC); Other ascites; Pleural effusion; CLL (chronic lymphocytic leukemia) (HCC); S/P TAVR (transcatheter aortic valve replacement) Start: 06-01-2022 End: 06-01-2022 Patient encounter procedure Ruddy Patricio Work Phone: [facility] Comment on above: Chemo appointment Start: 06-01-2022 Telephone encounter Maegan Murguia RN He matology/Oncology Comment on above: Chief Of Service - O ther (Introduction ) Orders AVS 06/01/22 Start: 05-31-2022 Non-patient / Non-visit Dr. Lisy Bernardo Work Phone: [facility] Start: 05-31-2022 Dr. Vern ruedar Work Phone: [facility] Start: 05-31-2022 Non-patient / Non-visit Dr. Lisy Bernardo Work Phone: [facility] Start: 05-31-2022 Dr. Vern ruedar Work Phone: [facility] Start: 05-30-2022 Non-patient / Non-visit Dr. Lisy Bernardo Work Phone: [facility] Start: 05-30-2022 Dr. Vern Be hner Work Phone: [facility] Start: 05-30-2022 Non-patient / Non-visit Dr. Lisy Bernardo Work Phone: [facility] Start: 05-30-2022 Dr. Vern ruedar Work Phone: [facility] Start: 05-29-2022 Telephone encounter Samra Cee APRN.CNP Work Phone: Gynecology Oncology Comment on above: Results (Biopsy resu lts) Start: 05-29-2022 Non-patient / Non-visit Dr. Lisy Bernardo Work Phone: [facility] Start: 05-29-2022 Dr. Vern Be hner Work Phone: [facility] Start: 05-29-2022 End: 05-29-2022 Non-patient / Non-visit Dr. Vern Bernardo Work Phone: [facility] Start: 05-29-2022 End: 05-29-2022 Dr. Vern Bernardo Work Phone: [facility] Start: 05-28-2022 Non-patient / Non-visit Dr. Lisy Bernardo Work Phone: [facility] Start: 05-28-2022 Dr. Vern Be hner Work Phone: [facility] Start: 05-27-2022 Non-patient / Non-visit Dr. Lisy Bernardo Work Phone: [facility] Start: 05-27-2022 Dr. Vern ruedar Work Phone: [facility] Start: 05-26-2022 Telephone encounter Helena sutton MD Work Phone: Gynecology Comment on above: Patient Question Start: 05-26-2022 Non-patient / Non-visit Dr. Lisy Bernardo Work Phone: [facility] Start: 05-26-2022 Dr. Vern Be hner Work Phone: [facility] Start: 05-25-2022 End: 05-31-2022 Evaluation and management of inpatient Dr. Vern Bernardo Work Phone: [facility] Start: 05-25-2022 End: 05-31-2022 Dr. Vern Bernardo Work Phone: [facility] Start: 05-25-2022 Non-patient / Non-visit Dr. Lisy Bernardo Work Phone: [facility] Start: 05-25-2022 Dr. Vern Be hner Work Phone: [facility] Start: 05-24-2022 Evaluation and management of inpatient Dr. Vern Bernardo Work Phone: [facility] 3 Start: 05-24-2022 Non-patient / Non-visit Dr. Lisy Bernardo Work Phone: [facility] Start: 05-24-[address] Lulú Bernardo Work Phone: [facility] Work Phone: Start: 05-24-2022 Dr. Vern ruedar Work Phone: [facility] Start: 05-24-2022 Telephone encounter Alexandra Chavez RN Gynecology Oncology Comment on above: Returning Patient's Call Appointment Patient Update Start: 05-24-2022 End: 05-24-[address] Vern Bernardo Work Phone: [facility] [place] Start: 05-24-2022 End: 05-24-2022 Dr. Vern Bernardo Work Phone: [facility] Start: 05-21-2022 End: 05-21-2022 ambulatory Samra Cee MULTICUT LINE OPERATOR.STORE LOSS PREVENTION MANAGER Work Phone: Gynecology Oncology Comment on above: Post-operative state (Primary Dx) Start: 05-21-2022 End: 05-21-2022 Telemedicine consultation with patient Samra Saenz Jaye MULTICUT LINE OPERATOR.STORE LOSS PREVENTION MANAGER Work Phone: [facility] Start: 05-20-2022 ambulatory Ary Martínez Work Phone: Gynecology Oncology Comment on above: Test results Start: 05-20-2022 End: 05-20-2022 Emergency department patient visit Dr. Vern Bernardo Work Phone: [facility]-Emergency Department Start: 05-20-2022 End: 05-20-2022 Dr. Vern Bernardo Work Phone: [facility]-Emergency Department Start: 05-15-2022 Preprocedural examination done Marisel Cook APRN.STORE LOSS PREVENTION MANAGER Work Phone: Gynecology Oncology Start: 05-15-2022 Telephone encounter Marisel ravi Joey MULTICUT LINE OPERATOR.STORE LOSS PREVENTION MANAGER Work Phone: Gynecology Oncology Comment on above: Question Returning Patient's Call (Verified name and . Patient wanted to know what her Potassium level was because her PCP called in a script for potassium and should she take the potassium dose in the morning before her surgery. I informed the patient that her potassium level is 3.6 and she should take her dose tonight and tomorrow. Also that we will have her potassium level redrawn tomorrow. Patient was appreciative for the information. 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; Gastroesophageal reflux disease, unspecified whether esophagitis present; Chronic kidney disease, unspecified CKD stage; Iron deficiency anemia, unspecified iron deficiency anemia type; Other ascites Start: 05-14-2022 End: 05-14-2022 Preprocedural examination done [place] [id number] Work Phone: Pre Anesthesia Start: 05-09-2022 End: 05-09-2022 ambulatory Ary Borden MD Work Phone: Gynecology Oncology Comment on above: Pre/Post-Op Informat ion Educational circumst ances (Primary Dx) Start: 05-09-2022 E-mail encounter fro m caregiver Ary Borden MD Work Phone: [facility] Start: 05-09-2022 End: 05-09-2022 Telemedicine consultation with patient Packaging Mechanic Onc Nurse Ca 4 Work Phone: [facility] Start: 05-03-2022 End: 05-04-2022 Manual pelvic examination Ary Borden MD Work Phone: Gynecology Oncology Comment on above: Other intra-abdomina l and pelvic swelling, mass and lump (Primary Dx); Other abnormal tumor markers; Neoplasm of unspecified behavior of unspecified site ; Preop examination Start: 05-03-2022 End: 05-04-2022 Preprocedural examination done Ary Borden MD Work Phone: Gynecology Oncology Start: 05-03-2022 End: 05-04-2022 Telemedicine consultation with patient Ary Borden MD Work Phone: [facility] Start: 04-30-2022 Non-patient / Non-visit Dr. Lisy Bernardo Work Phone: [facility] Start: 04-30-2022 Dr. Vern ruedar Work Phone: [facility] Start: 04-29-2022 Non-patient / Non-visit Dr. Lisy Bernardo Work Phone: [facility] Start: 04-29-2022 Dr. Vern ruedar Work Phone: [facility] Start: 04-28-2022 Non-patient / Non-visit Dr. Lisy Bernardo Work Phone: [facility] Start: 04-28-2022 Dr. Vern Be hner Work Phone: [facility] Start: 04-28-[address] chopra MULTICUT LINE OPERATOR.STORE LOSS PREVENTION MANAGER Work Phone: Gastroenterology Comment on above: Results (Paracentesi s 04/27 positive for SBP ) Start: 04-28-2022 End: 04-30-2022 Evaluation and management of inpatient Dr. Vern Bernardo Work Phone: [facility] 3 Start: 04-28-2022 End: 04-30-2022 Dr. Vern Bernardo Work Phone: [facility] Start: 04-27-2022 End: 04-27-2022 Subsequent hospital visit by physician Hepatology Procedures Q3 Gastroenterology Comment on above: Other intra-abdomina l and pelvic swelling, mass and lump [R19.09] Start: 04-25-2022 End: 04-25-[address] Vern Bernardo Work Phone: [facility] Work Phone: Start: 04-25-2022 End: 04-25-[address] Vern Bernardo Work Phone: [facility] Start: 04-25-2022 End: 04-25-2022 Dr. Vern Bernardo Work Phone: [facility] Start: 04-23-2022 Manual pelvic examination Samra Cee MULTICUT LINE OPERATOR.STORE LOSS PREVENTION MANAGER Work Phone: Gynecology Oncology Comment on above: Other intra-abdomina l and pelvic swelling, mass and lump (Primary Dx) Lung nodules (Primar y Dx) Start: 04-23-2022 Telephone encounter Alexandra Chavez dial lathe operator Oncology Comment on above: Returning Patient's Call Start: 04-20-2022 Telephone encounter Alexandra Chavez dial lathe operator Oncology Comment on above: Returning Patient's Call (Returning daughter's call) Start: 04-19-2022 Telephone encounter Brittani Antonio MD Work Phone: [facility] Gynecology Oncology Comment on above: Appointment Start: 04-19-2022 End: 04-19-2022 Manual pelvic examination Ary Borden MD Work Phone: Gynecology Oncology Comment on above: Other intra-abdomina l and pelvic swelling, mass and lump (Primary Dx); Other ascites Start: 04-19-2022 End: 04-19-2022 Patient encounter procedure Ary Borden MD Work Phone: [facility] Start: 04-18-2022 End: 04-19-2022 ambulatory BRITTANI ANTONIO Facility:[facility] Start: 04-18-2022 End: 04-18-2022 Manual pelvic examination Brittani Antonio MD Work Phone: [facility] Gynecology Oncology Comment on above: Generalized abdomina l or pelvic swelling or mass or lump (Primary Dx) Other intra-abdomina l and pelvic swelling, mass and lump (Primary Dx); Other abnormal tumor markers Start: 04-18-2022 End: 04-18-2022 ambulatory BRITTANI ANTONIO Facility:[facility] Start: 04-18-2022 End: 04-18-2022 Patient encounter procedure Brittani Antonio MD Work Phone: [facility] Start: 04-16-2022 End: 04-16-[address] Vern Bernardo Work Phone: [facility] Start: 04-16-2022 End: 04-16-2022 Dr. Vern Bernardo Work Phone: [facility] Start: 04-13-2022 End: 04-13-2022 Patient encounter procedure Emily Jacobs MD Work Phone: OB/Gynecology Comment on above: Uterine leiomyoma, u nspecified location (Primary Dx); Elevated cancer antigen 125 (CA-125); Other ascites Start: 04-06-2022 End: 04-06-[address] Vern Bernardo Work Phone: [facility] Work Phone: Start: 04-06-2022 End: 04-06-[address] Vern Bernardo Work Phone: [facility] Start: 04-06-2022 End: 04-06-2022 Dr. Vern Bernardo Work Phone: [facility] Start: 04-05-2022 End: 04-05-[address] Vern Bernardo Work Phone: [facility] Work Phone: Start: 04-05-2022 End: 04-05-[address] [facility] Start: 04-05-2022 End: 04-05-2022 Dr. Vern Bernardo [facility] Start: 04-04-2022 End: 04-04-[address] Vern Bernardo [facility] Start: 04-04-2022 End: 04-04-2022 Dr. Vern Bernardo Work Phone: [facility] Start: 04-04-2022 End: 04-04-[address] Vern Bernardo Work Phone: [facility] Start: 04-04-2022 End: 04-04-2022 Dr. Vern Bernardo Work Phone: [facility] Start: 04-04-2022 End: 04-04-[address] Vern Bernardo Work Phone: [facility] Start: 04-04-2022 End: 04-04-2022 Dr. Vern Bernardo Work Phone: [facility] Start: 03-29-2022 End: 03-29-[address] Vern Bernardo Work Phone: [facility] Work Phone: Start: 03-29-2022 End: 03-29-[address] Vern Bernardo [facility] Start: 03-29-2022 End: 03-29-2022 Dr. Vern Bernardo [facility] Start: 03-29-2022 End: 03-29-[address] Vern Bernardo Work Phone: [facility] Start: 03-29-2022 End: 03-29-2022 Dr. 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 Vern Bernardo Work Phone: [facility] Work Phone: Start: 02-23-2022 End: 02-23-[address] Vern Bernardo [facility] Start: 02-21-2022 End: 02-21-[address] Vern Bernardo Work Phone: [facility] Start: 02-10-2022 Telephone encounter Rosa Miller Cardiology Comment on above: Post Dc Program Call - Fyi Start: 01-29-2022 End: 01-29-[address] Vern Bernardo Work Phone: [facility] Start: 12-27-2021 Telephone encounter Ruddy Pardo Toño irina DO Work Phone: Hematology/Oncology Comment on above: Follow Up (Low iron) Start: 12-25-2021 End: 12-25-2021 ambulatory Ruddy Pardo Venkat DO Work Phone: Hematology/Oncology Comment on above: CLL (chronic lymphoc ytic leukemia) (HCC) (Primary Dx); Stage 3b chronic kidney disease (HCC); Other iron deficiency anemia Start: 12-25-2021 End: 12-25-2021 Patient encounter procedure Ruddy Patricio DO Work Phone: 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) Start: 12-13-2021 End: 12-13-2021 Admission to same day surgery center Anesthesia Clearance Work Phone: Cardiothoracic Start: 12-13-2021 End: 12-13-2021 Patient encounter procedure [facility] Cardiology Comment on above: Nonrheumatic aortic valve stenosis (Primary Dx); Pre-op exam; Other elevated white blood cell (WBC) count Encounter for preope rative anesthesiology assessment for cardiac surgery (Primary Dx) Start: 12-13-2021 End: 12-13-2021 Preprocedural examination done [facility] Start: 12-01-2021 ambulatory Mindi Ratliff APRN.STORE LOSS PREVENTION MANAGER Work Phone: Cardiology Comment on above: [place] TAVR Start: 11-20-2021 ambulatory Nani Burns Pulmonar y Medicine Start: 11-13-2021 ambulatory Eliza ALANIZ RN.STORE LOSS PREVENTION MANAGER Work Phone: Pulmonary Medicine Start: 11-06-2021 End: 11-06-2021 ambulatory Pulm J-2 Pulmonary Medicine Comment on above: Spirometry Start: 11-06-2021 End: 11-06-2021 Patient encounter status Pulm J-2 Pulmonary Medicine Start: 11-06-2021 End: 11-06-2021 Patient encounter procedure Swapnil Serna MD Work Phone: Cardiothoracic Comment on above: Nonrheumatic aortic valve stenosis (Primary Dx) Start: 11-03-2021 End: 11-03-2021 Patient encounter status Xr J1 Work Phone: Radiology Start: 11-03-2021 End: 11-03-2021 Subsequent hospital visit by physician Xr Chest Main J1 Work Phone: Radiology Comment on above: Encounter for prepro cedural cardiovascular examination [Z01.810] Start: 11-03-2021 End: 11-03-[address] (I-Stat) Work Phone: Radiology Start: 11-03-2021 End: 11-03-2021 Subsequent hospital visit by physician Ct Main F30 (I-Stat) Work Phone: Radiology Comment on above: Encounter for prepro cedural cardiovascular examination [Z01.810] Start: 11-03-2021 End: 11-03-2021 Patient encounter procedure Nir Roth MD Work Phone: Cardiology Comment on above: Nonrheumatic aortic valve stenosis (Primary Dx); 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 Vern Bernardo Work Phone: [facility], Specimen Start: 10-18-2021 End: 10-18-[address] Vern Bernardo Work Phone: [facility] Start: 10-11-2021 ambulatory Janneth Stover Larisa CHAPMANN.SENIOR CIVIL ENGINEER Work Phone: [facility] Start: 10-11-2021 Patient encounter procedure Janneth Stover Larisa LOMELI.SENIOR CIVIL ENGINEER Work Phone: Cardiology Comment on above: tavr referral Start: 10-11-2021 Patient encounter status Janneth Stover Larsia LOMELI.SENIOR CIVIL ENGINEER Work Phone: Cardiology Start: 10-06-2021 Patient encounter status Skyler Freire MD Work Phone: Cardiothoracic Start: 10-06-2021 Telephone encounter Skyler vazquez MD Work Phone: Cardiothoracic Comment on above: Case Review Start: 09-29-2021 End: 09-29-2021 Admission to same day surgery center No Primary Care Physician [facility] Surgical/Special Procedures Start: 09-26-2021 Non-patient / Non-visit No [facility] Care Physician [facility] Start: 09-14-2021 End: 09-14-2021 Patient encounter procedure No Primary Care Physician [facility]-Radiology, [facility] Start: 09-14-2021 End: 09-14-2021 Patient encounter procedure No Primary Care Physician [facility] Start: 08-23-2021 Non-patient / Non-visit No Shanda gutierrez Care Physician [facility] Start: 08-23-2021 End: 08-23-2021 Patient encounter procedure No Primary Care Physician [facility]-Cardiovascular Services Start: 08-09-2021 End: 08-09-2021 Patient encounter procedure No Primary Care Physician [facility] Start: 08-08-2021 ambulatory [facility] Provider Hematology /Oncology Comment on above: results Start: 08-08-2021 E-mail encounter fro m caregiver [facility] Provider [facility] Start: 08-03-2021 End: 08-03-2021 ambulatory Ruddy Patricio DO Work Phone: Hematology/Oncology Comment on above: CLL (chronic lymphoc ytic leukemia) (HCC) (Primary Dx); Lymphocytosis; Anemia, unspecified type Start: 08-03-2021 End: 08-03-2021 Patient encounter procedure Ruddy Patricio DO Work Phone: [facility] Start: 2021 End: 2021 Patient encounter procedure No Primary Care Physician [facility] Start: 06-13-2021 End: 06-13-2021 Patient encounter procedure No Primary Care Physician [facility], [facility] Start: 06-07-2021 End: 06-07-2021 Emergency department patient visit No Primary Care Physician [facility] Start: 06-07-2021 End: 06-07-2021 Patient encounter procedure No Primary Care Physician [facility] Start: 06-05-2021 Non-patient / Non-visit No Shanda gutierrez Care Physician [facility] Start: 06-05-2021 End: 06-05-2021 Patient encounter procedure No Primary Care Physician [facility]-Cardiovascular Services Start: 06-05-2021 End: 06-05-2021 Patient encounter procedure No Primary Care Physician [facility], [facility] Start: 06-05-2021 Patient encounter status No Primary Care Physician [facility] Start: 06-05-2021 End: 06-05-2021 Emergency department patient visit No Primary Care Physician [facility] Start: 06-05-2021 End: 06-05-2021 Patient encounter procedure No Primary Care Physician [facility] Start: 03-30-2021 End: 03-30-2021 Patient encounter procedure No Primary Care Physician [facility] Procedures Date Procedure Procedure Detail Performing Clinician Start: 05-01-2024 Measurement of renal function Dr. Vern Bernardo MD Work Phone: Comment on above: GFR Calc Start: 05-01-2024 Vitamin D, 25-hydrox y measurement Dr. Vern Bernardo MD Work Phone: Comment on above: Vitamin D 25(OH) Sta tus Range Deficiency <20 ng/mL (50nmol/L) Insufficiency 20 - 30 ng/mL (50 - 75 nmol/L) Sufficiency 30 - 100 ng/mL (75 - 250 nmol/L) Toxicity >100 ng/mL (>250 nmol/L) Start: 09-06-2022 Radiologic exam ches t 2 views Ruddy Patricio DO Work Phone: Start: 07-25-2022 Radiologic exam ches t 2 views Vishal Pichardo MD Work Phone: Start: 07-17-2022 Radiologic exam ches t 2 views Ruddy Patricio DO Work Phone: Start: 07-05-2022 Radiologic exam ches t single view Regina Ramirez PA-C Work Phone: Start: 06-29-2022 End: 06-29-2022 Plain chest X-ray Dr. Vern Bernardo Work Phone: Start: 06-29-2022 Ultrasonic guidance for thoracentesis Dr. Vern Bernardo Work Phone: Start: 06-28-2022 Radiologic exam ches t 2 views Vishal Pichardo MD Work Phone: Start: 06-25-2022 Plain chest X-ray Dr. Jolanta Bernardo Work Phone: Start: 06-25-2022 Ultrasonic guidance for thoracentesis Dr[address] Vern Bernardo Work Phone: Start: 06-25-2022 Plain chest X-ray Dr. Jolanta Bernardo Work Phone: Start: 06-22-2022 Plain chest X-ray Dr. Jolanta Bernardo Work Phone: Start: 06-22-2022 Ultrasonic guidance for thoracentesis Dr. Vern Bernardo Work Phone: Start: 06-15-2022 Plain chest X-ray Dr. Jolanta Bernardo Work Phone: Start: 06-15-2022 Ultrasonic guidance for thoracentesis Dr. Vern Bernardo Work Phone: Start: 06-15-2022 Plain chest X-ray Dr. Jolanta Bernardo Work Phone: Start: 06-13-2022 End: 06-13-2022 Plain chest X-ray Dr. Vern Bernardo Work Phone: Start: 06-11-2022 Plain chest X-ray Dr. Jolanta Bernardo Work Phone: Start: 06-11-2022 Ultrasonic guidance for thoracentesis Dr. Vern Bernardo Work Phone: Start: 06-07-2022 Plain chest X-ray Dr. Jolanta Bernardo Work Phone: Start: 06-07-2022 Ultrasonic guidance for thoracentesis Dr. Vern Bernardo Work Phone: Start: 06-05-2022 Plain chest X-ray Dr. Jolanta Bernardo Work Phone: Start: 06-05-2022 Ultrasonic guidance for thoracentesis Dr. Vern Bernardo Work Phone: Start: 06-01-2022 Gen seq analys jackie org/hemtolmphoid modesta 51/> gen Ruddy A Delilahi DO Work Phone: Start: 05-30-2022 Plain chest X-ray Dr. Jolanta Bernardo Work Phone: Start: 05-29-2022 End: 05-29-2022 Plain chest X-ray Dr. Vern Bernardo Work Phone: Start: 05-28-2022 Plain chest X-ray Dr. Jolanta Bernardo Work Phone: Start: 05-28-2022 Ultrasonic guidance for thoracentesis Dr. Vern Bernardo Work Phone: Start: 05-26-2022 Plain chest X-ray Dr. Jolanta Bernardo Work Phone: Start: 05-24-2022 Plain chest X-ray Dr. Jolanta Bernardo Work Phone: Start: 05-24-2022 Ultrasonic guidance for thoracentesis Dr. Vern Bernardo Work Phone: Start: 05-24-2022 Plain chest X-ray Dr. Jolanta Bernardo Work Phone: Start: 05-20-2022 CT angiography of ch est with contrast Dr. Vern Bernardo Work Phone: Start: 04-27-2022 Abdom paracentesis d x/ther w/imaging guidance Samra Cee MULTICUT LINE OPERATOR.STORE LOSS PREVENTION MANAGER Work Phone: Start: 04-27-[address] MULTICUT LINE OPERATOR.STORE LOSS PREVENTION MANAGER Work Phone: Start: 04-27-2022 Cell count misc body fluids w/differential count Ave Pino MULTICUT LINE OPERATOR.STORE LOSS PREVENTION MANAGER Work Phone: Start: 04-27-2022 Cul bact xcpt urine blood/stool aerobic isol [address] Pino MULTICUT LINE OPERATOR.STORE LOSS PREVENTION MANAGER Work Phone: Start: 04-27-2022 Protein [facility] [address] MULTICUT LINE OPERATOR.STORE LOSS PREVENTION MANAGER Work Phone: Start: 04-27-2022 US PARACENTESIS (POC ) DDI USE ONLY Ave Velaalaina MULTICUT LINE OPERATOR.STORE LOSS PREVENTION MANAGER Work Phone: Start: 04-25-2022 CT of thorax with contrast Dr. Vern Bernardo Work Phone: Start: 04-18-2022 End: 04-18-2022 Antibody screen Brittani Antonio MD Work Phone: Comment on above: Order Comment: Speci men Type: BLOOD SPECIMEN Ordering Facility: [facility] Address: [address] [place], [place] [id number] Performed By: #### T [id number] #### [facility] CLIA [id number] [address] Start: 04-05-[address] Jolanta Bernardo Work Phone: Start: 04-04-2022 Computed tomography of abdomen and pelvis with contrast Dr. Vern Bernardo Work Phone: Start: 11-06-2021 Spmtry w/vc expirato ry lorri w/wo mxml vol vntj Janneth Peres MULTICUT LINE OPERATOR.SENIOR CIVIL ENGINEER Work Phone: Start: 11-03-2021 Radiologic exam ches t 2 views Janneth Peres MULTICUT LINE OPERATOR.SENIOR CIVIL ENGINEER Work Phone: Start: 11-03-2021 CTA CHEST/ABD/PEL (G ATED) W IVCON Janneth Stover Held MULTICUT LINE OPERATOR.SENIOR CIVIL ENGINEER Work Phone: Start: 11-03-2021 Creatinine [Mass/vol ume] in Serum or Plasma [facility] Provider Start: 09-14-2021 Plain chest X-ray No Pr imary Care Physician Start: 08-23-2021 Ultrasonography of limb No Primary Care Physician Bacteria identified in Blood by Culture Dr. Vern Bernardo Work Phone: Laboratory test resu lt abnormal Other abnormal tumor markers Brittani Antonio MD Work Phone: Laboratory test resu lt abnormal Other abnormal tumor markers Ary Borden MD Work Phone: Urine culture Dr. Vern Be hner Work Phone: Urine culture Dr. Vern Be hner Work Phone: Urine culture Dr. Vern Be hner Work Phone: Dr. Vern Carson ner Work Phone: Plan of Treatment Date Care Activity Detail Author Start: 11-03-2027 Diabetes Screening Diabetes Screening [facility] Start: 09-08-2027 Diabetes Screening Diabetes Screening [facility] Start: 09-01-2027 Diabetes Screening Diabetes Screening [facility] Start: 08-18-2027 Diabetes Screening Diabetes Screening [facility] Start: 08-11-2027 Diabetes Screening Diabetes Screening [facility] Start: 05-11-2027 Diabetes Screening Diabetes Screening [facility] Start: 04-17-2027 Diabetes Screening Diabetes Screening [facility] Start: 02-16-2027 Diabetes Screening Diabetes Screening [facility] Start: 12-22-2026 Diabetes Screening Diabetes Screening [facility] Start: 11-24-2026 Diabetes Screening Diabetes Screening [facility] Start: 09-29-2026 Diabetes Screening Diabetes Screening [facility] Start: 09-16-2026 Diabetes Screening Diabetes Screening [facility] Start: 09-03-2026 Diabetes Screening Diabetes Screening [facility] Start: 09-01-2026 Diabetes Screening Diabetes Screening [facility] Start: 08-20-2026 Diabetes Screening Diabetes Screening [facility] Start: 07-25-2026 Diabetes Screening Diabetes Screening [facility] Start: 05-20-2026 Diabetes Screening [facility] Start: 05-09-2026 Diabetes Screening [facility] Start: 03-19-2026 Diabetes Screening [facility] Start: 12-12-2025 Diabetes Screening [facility] Start: 12-05-2025 DIABETES SCREEN [facility]CRE[facility] Start: 11-28-2025 DIABETES SCREEN [facility]CRE[facility] Start: 11-09-2025 DIABETES SCREEN DIABETES SCREEN [facility] Start: 11-05-2025 DIABETES SCREEN DIABETES SCREEN [facility] Start: 10-19-2025 DIABETES SCREEN DIABETES SCRE[facility] Start: 09-03-2025 DIABETES SCREEN DIABETES SCREEN [facility] Start: 08-23-2025 DIABETES SCREEN DIABETES SCREEN [facility] Start: 08-01-2025 DIABETES SCREEN DIABETES SCREEN [facility] Start: 07-25-2025 DIABETES SCREEN DIABETES SCREEN [facility] Start: 07-17-2025 DIABETES SCREEN DIABETES SCREEN [facility] Start: 07-04-2025 DIABETES SCREEN DIABETES SCREEN [facility] Start: 06-26-2025 DIABETES SCREEN DIABETES SCREEN [facility] Start: 06-13-2025 DIABETES SCREEN DIABETES SCREEN [facility] Start: 06-06-2025 DIABETES SCREEN DIABETES SCREEN [facility] Start: 06-01-2025 DIABETES SCREEN DIABETES SCREEN [facility] Start: 05-14-2025 DIABETES SCREEN DIABETES SCREEN [facility] Start: 02-08-2025 End: 02-08-2025 [facility] Comment on above: QMO. (SO)CBC/CMP(S)/CA125 6 MO OV/EARLY LABS QMO(SO)CBC/CMP(S)/CA 125* LAB EARLY/6 MO OV* Start: 01-25-2025 End: 01-25-2025 [facility] Comment on above: QMO. (SO)CBC/CMP(S)/CA125 QMO(SO)CBC/CMP(S)/CA 125* Start: 12-28-2024 End: 12-28-2024 [facility] Comment on above: QMO. (SO)CBC/CMP(S)/CA125 QMO(SO)CBC/CMP(S)/CA 125* Start: 12-15-2024 DIABETES SCREEN DIABETES SCREEN [facility] Start: 12-13-2024 DIABETES SCREEN DIABETES SCREEN [facility] Start: 12-01-2024 End: 12-01-2024 [facility] Comment on above: QMO. (SO)CBC/CMP(S)/CA125 QMO(SO)CBC/CMP(S)/CA 125* Start: 11-30-2024 [facility]enza [facility] Start: 11-03-2024 DIABETES SCREEN DIABETES SCREEN [facility] Start: 11-02-2024 End: 11-02-2024 ambulatory [facility] Laboratory Comment on above: QMO. (SO)CBC/CMP(S)/CA125 QMO(SO)CBC/CMP(S)/CA 125* Start: 10-05-2024 End: 10-05-2024 ambulatory [facility] Laboratory Comment on above: QMO. (SO)CBC/CMP(S)/CA125 QMO(SO)CBC/CMP(S)/CA 125* Start: 09-07-2024 End: 09-07-2024 ambulatory [facility] Comment on above: QMO. (SO)CBC/CMP(S)/CA125 QMO(SO)CBC/CMP(S)/CA 125* Start: 08-17-2024 End: 08-17-2024 ambulatory 08/17/2024 8:30 AM EDT Results Only [facility] [address] [place] [address] CBC CMP* [facility] Comment on above: CBC CMP* Start: 08-10-2024 End: 08-10-2024 ambulatory [facility] Comment on above: CBC/CMP/CA125 3 MO OV Start: 08-03-2024 DIABETES SCREEN DIABETES SCREEN [facility] Start: 07-13-2024 End: 07-13-2024 ambulatory 07/13/2024 8:30 AM EDT [facility] [address] [place] [address] CBC/CMP/CA125 [facility] Comment on above: CBC/CMP/CA125 Start: 07-09-2024 Patient referral [facility] Work Phone: Start: 06-08-2024 End: 06-08-2024 ambulatory 06/08/2024 8:30 AM EDT Results Only [facility] Laboratory [address] [place] [address] CBC/CMP/CA125 [facility] Comment on above: CBC/CMP/CA125 Start: 05-14-2024 End: 05-14-2024 Patient encounter procedure 05/14/2024 1:45 PM EST Appointment Radiology [address] [place] [address] Dx: RINA (acute kidney injury) (HCC) [N17.9] Radiology Comment on above: Dx: RINA (acute kidney injury) (HCC) [N17 .9] Start: 05-12-2024 End: 08-11-2024 Protein/Creatinine [Mass Ratio] in Urine PROTEIN / CREATININE RATIO Lab Routine RINA (acute kidney injury) (HCC) Expected: 05/12/2024, Expires: 08/11/2024 [facility] Comment on above: Expected: 05/12/2024, Expires: Start: 05-12-2024 End: 08-11-2024 Urinalysis complete panel - Urine URINALYSIS, WITH MICROSCOPIC Lab Routine RINA (acute kidney injury) (HCC) Expected: 05/12/2024, Expires: 08/11/2024 [facility] Comment on above: Expected: 05/12/2024, Expires: Start: 05-11-2024 End: 05-11-2024 ambulatory [facility] Comment on above: (SO)CBC/CMP(S)/CA125* 3 MO OV/LABS EARLY* QMO (SO)CBC/CMP(S)/C A125* Start: 04-30-2024 Shingrix Vaccine (2 of 2) Shingrix Vaccine (2 of 2) [facility] Start: 04-27-2024 End: 04-27-2024 Patient encounter procedure 04/27/2024 10:45 AM EST Appointment Radiology [address] [place] [address] of liver [R93.2] Radiology Comment on above: Abnormal CT of liver [R93.2] Start: 04-17-2024 End: 04-17-2024 ambulatory 04/17/2024 9:30 AM EST Results Only [facility] [address] [place] [address] QMO CBC/CMP/CA125 [facility] Comment on above: QMO CBC/CMP/CA125 Start: 04-17-2024 End: 04-17-2024 Patient encounter procedure Cat Scan Comment on above: 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] Start: 04-01-2024 Advance Directive Discussion Advance Directive Discussion [facility] Start: 02-17-2024 End: 02-17-2024 ambulatory [facility] Comment on above: QMO (SO)CBC/CMP/CA125* CBC/CMP/CA125/3 MO O V* QMO (SO)CBC/CMP(S)/C A125* (LAB EARLY)/3 MO OV* Start: 01-20-2024 End: 01-20-2024 ambulatory [facility] Comment on above: QMO (SO)CBC/CMP* QMO (SO)CBC/CMP(S)* Start: 12-23-2023 End: 12-23-2023 ambulatory 12/23/2023 8:15 AM EDT Results Only [facility] [address] [place] [address] QMO (SO)CBC/CMP* [facility] Comment on above: QMO (SO)CBC/CMP* Start: 12-01-2023 Covid-19 Vaccine ( season) Covid-19 Vaccine ( season) [facility] Start: 12-01-2023 Influenza vaccination Influenza Vaccine (#1) [facility] Start: 11-25-2023 End: 11-25-2023 ambulatory [facility] Comment on above: Q2WK (SO)CBC/CMP/CEA* CBC/CMP/CEA/3 MO OV* * Start: 11-11-2023 End: 11-11-2023 ambulatory [facility] Comment on above: Q2WK (SO)CBC/CMP* Q2WK (SO)CBC/CMP(S)* Start: 10-28-2023 End: 10-28-2023 ambulatory [facility] Comment on above: Q2WK (SO)CBC/CMP* Q2WK (SO)CBC/CMP(S)* Start: 10-14-2023 End: 10-14-2023 ambulatory [facility] [place] Laboratory Comment on above: Q2WK (SO)CBC/CMP* Q2WK (SO)CBC/CMP(S)* Start: 09-30-2023 End: 09-30-2023 ambulatory [facility] Comment on above: Q2WK (SO)CBC/CMP* Q2WK (SO)CBC/CMP(S)* Start: 09-16-2023 End: 09-16-2023 ambulatory 09/16/2023 8:15 AM EDT Results Only [facility] Laboratory [address] [place] [address] Q2WK (SO)CBC/CMP* [facility] Comment on above: Q2WK (SO)CBC/CMP* Start: 09-06-2023 End: 09-06-2023 Patient encounter procedure 09/06/2023 1:00 PM EDT Office Visit Orthopaedics [address] [place] [address] Amarilis Garduno PA-C [address] [place] [address] RT ARM TENDONITIS Orthopaedics Comment on above: RT ARM TENDONITIS Start: 09-02-2023 End: 09-02-2023 ambulatory 09/02/2023 8:15 AM EDT Results Only [facility] Laboratory [address] [place] [address] Q2WK (SO)CBC/CMP* [facility] Comment on above: Q2WK (SO)CBC/CMP* Start: 08-23-2023 End: 08-23-2023 Follow-up encounter 08/23/2023 8:00 AM EDT Visit (SP) Office Hematology/Oncology [address] [place] [address] Ruddy Patricio DO [address] [place] [address] follow up ov* Hematology/Oncology Comment on above: follow up ov* Start: 08-23-2023 End: 08-23-2023 ambulatory [facility] [place] [facility] Laboratory Comment on above: monthly labs/ request diomedes* CBC/CMP/CA125/monthl y labs/ request diomedes* Start: 07-26-2023 End: 07-26-2023 ambulatory 07/26/2023 10:00 AM EDT Results Only [facility] [place] [facility] Laboratory [address] [place] [address] monthly labs/ request diomedes* [place] [facility] Laboratory Comment on above: monthly labs/ request diomedes* Start: 04-01-2023 Advance Directive Discussion Advance Directive Discussion [facility] Start: 04-01-2023 Behavioral Health Screening Behavioral Health Screening [facility] Start: 04-01-2023 Depression Assessment Depression Assessment [facility] Start: 11-30-2022 Covid-19 Vaccine () Covid-19 Vaccine () [facility] Start: 11-30-2022 Influenza vaccination [facility] Start: 09-05-2022 End: 07-07-2023 Ct abdomen & pelvis w/contrast material CT ABD/PEL W IVCON Radiology Routine Carcinosarcoma (HCC) Expected: 09/05/2022 (Approximate), Expires: 07/07/2023 [facility] Work Phone: Comment on above: Expected: 09/05/2022 (Approximate), Expi res: 07/07/2023 Start: 09-05-2022 End: 07-07-2023 CT CHEST W IVCON CT CHEST W IVCON Radiology Routine Carcinosarcoma (HCC) Expected: 09/05/2022 (Approximate), Expires: 07/07/2023 [facility] Work Phone: Comment on above: Expected: 09/05/2022 (Approximate), Expi res: 07/07/2023 Start: 08-29-2022 End: 10-29-2022 CBC W Auto Differential panel - Blood CBC + DIFF Lab STAT 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) Expected: 08/29/2022, Expires: 10/29/2022 [facility] Work Phone: Comment on above: Expected: 08/29/2022, Expires: Start: 08-01-2022 End: 10-01-2022 Basic metabolic 2000 panel - Serum or Plasma BASIC METABOLIC PNL Lab STAT 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) CLL (chronic lymphocytic leukemia) (HCC) Expected: 08/01/2022, Expires: 10/01/2022 [facility] Work Phone: Comment on above: Expected: 08/01/2022, Expires: Start: 08-01-2022 End: 10-01-2022 CBC W Auto Differential panel - Blood CBC + DIFF Lab STAT 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) CLL (chronic lymphocytic leukemia) (HCC) Expected: 08/01/2022, Expires: 10/01/2022 [facility] Work Phone: Comment on above: Expected: 08/01/2022, Expires: Start: 07-04-2022 End: 09-03-2022 Basic metabolic 2000 panel - Serum or Plasma BASIC METABOLIC PNL Lab STAT Uterine carcinosarcoma (HCC) CLL (chronic lymphocytic leukemia) (HCC) Expected: 07/04/2022, Expires: 09/03/2022 [facility] Work Phone: Comment on above: Expected: 07/04/2022, Expires: 3 Start: 07-04-2022 End: 09-03-2022 CBC W Auto Differential panel - Blood CBC + DIFF Lab STAT Uterine carcinosarcoma (HCC) CLL (chronic lymphocytic leukemia) (HCC) Expected: 07/04/2022, Expires: 09/03/2022 [facility] Work Phone: Comment on above: Expected: 07/04/2022, Expires: 3 Start: 06-30-2022 [facility] Start: 06-29-2022 [facility] Start: 06-29-2022 Thoracentesis needle/cath pleura w/imaging [facility] Start: 06-29-2022 Patient discharge [facility] Start: 06-29-2022 Vital signs measurements [facility] Start: 06-26-2022 End: 08-26-2022 Cancer Ag 125 [Units/volume] in Serum or Plasma CA 125 BLD Lab Routine Uterine carcinosarcoma (HCC) Omental metastasis (HCC) Other ascites Pleural effusion CLL (chronic lymphocytic leukemia) (HCC) S/P TAVR (transcatheter aortic valve replacement) Elevated cancer antigen 125 (CA 125) Expected: 06/26/2022, Expires: 08/26/2022 [facility] Work Phone: Comment on above: Expected: 06/26/2022, Expires: 3 Start: 06-26-2022 End: 08-26-2022 CBC W Auto Differential panel - Blood CBC + DIFF Lab STAT Uterine carcinosarcoma (HCC) Omental metastasis (HCC) Other ascites Pleural effusion CLL (chronic lymphocytic leukemia) (HCC) S/P TAVR (transcatheter aortic valve replacement) Expected: 06/26/2022, Expires: 08/26/2022 [facility] Work Phone: Comment on above: Expected: 06/26/2022, Expires: 3 Start: 06-26-2022 End: 08-26-2022 Chronic hepatitis differentiation between hepatitis B and C virus panel - Serum or Plasma HEP REMOTE PANEL BL Lab Routine Uterine carcinosarcoma (HCC) Omental metastasis (HCC) Other ascites Pleural effusion CLL (chronic lymphocytic leukemia) (HCC) S/P TAVR (transcatheter aortic valve replacement) Expected: 06/26/2022, Expires: 08/26/2022 [facility] Work Phone: Comment on above: Expected: 06/26/2022, Expires: 3 Start: 06-26-2022 End: 08-26-2022 Comprehensive metabolic 2000 panel - Serum or Plasma COMP METABOLIC PANEL Lab STAT Uterine carcinosarcoma (HCC) Omental metastasis (HCC) Other ascites Pleural effusion CLL (chronic lymphocytic leukemia) (HCC) S/P TAVR (transcatheter aortic valve replacement) Expected: 06/26/2022, Expires: 08/26/2022 [facility] Work Phone: Comment on above: Expected: 06/26/2022, Expires: 3 Start: 06-25-2022 Patient discharge [facility] Start: 06-25-2022 Vital signs measurements [facility] Start: 06-22-2022 Patient discharge [facility] Start: 06-22-2022 Vital signs measurements [facility] Start: 06-15-2022 Patient discharge [facility] Start: 06-15-2022 Vital signs measurements [facility] Start: 06-13-2022 End: 08-13-2022 Basic metabolic 2000 panel - Serum or Plasma BASIC METABOLIC PNL Lab STAT Uterine carcinosarcoma (HCC) Omental metastasis (HCC) Other ascites Pleural effusion CLL (chronic lymphocytic leukemia) (HCC) Expected: 06/13/2022, Expires: 08/13/2022 [facility] Work Phone: Comment on above: Expected: 06/13/2022, Expires: 3 Start: 06-13-2022 End: 08-13-2022 CBC W Auto Differential panel - Blood CBC + DIFF Lab STAT Uterine carcinosarcoma (HCC) Omental metastasis (HCC) Other ascites Pleural effusion CLL (chronic lymphocytic leukemia) (HCC) Expected: 06/13/2022, Expires: 08/13/2022 [facility] Work Phone: Comment on above: Expected: 06/13/2022, Expires: 3 Start: 06-13-2022 Thoracentesis needle/cath pleura w/o imaging [facility] Start: 06-13-2022 Patient discharge [facility] Start: 06-13-2022 Ultrasonic guidance for thoracentesis Thoracentesis W US [facility] Start: 06-13-2022 Plain chest X-ray Chest Insp/Exp 2 View [facility] Start: 06-13-2022 Vital signs measurements [facility] Start: 06-11-2022 Patient discharge [facility] Start: 06-11-2022 Vital signs measurements [facility] Start: 06-07-2022 Patient discharge [facility] Start: 06-07-2022 Vital signs measurements [facility] Start: 06-05-2022 Patient discharge [facility] Start: 06-05-2022 Vital signs measurements [facility] Start: 06-01-2022 End: 08-01-2022 Cancer Ag 125 [Units/volume] in Serum or Plasma [facility] Work Phone: Comment on above: Expected: 06/01/2022, Expires: 3 Start: 06-01-2022 End: 08-01-2022 Chronic hepatitis differentiation between hepatitis B and C virus panel - Serum or Plasma [facility] Work Phone: Comment on above: Expected: 06/01/2022, Expires: 3 Start: 05-31-2022 Patient discharge [facility] Start: 05-31-2022 Referral to service [facility] Start: 05-30-2022 Consultation [facility] Start: 05-28-2022 Glucose measurement, body fluid [facility] Start: 05-28-2022 Vital signs measurements [facility] Start: 05-28-2022 [facility] Start: 05-25-2022 Admission procedure [facility] Start: 05-25-2022 Application of intermittent pneumatic compression device [facility] Start: 05-25-2022 [facility] Start: 05-25-2022 Bacteria identified in Body fluid by Culture [facility] Start: 05-25-2022 Cell count and Differential panel - Body fluid [facility] Start: 05-24-2022 Oxygen therapy [facility] Start: 05-24-2022 Ambulation without limitation [facility] Start: 05-24-2022 Assessment of risk of venous thromboembolism [facility] Start: 05-24-2022 Insertion of catheter into peripheral vein [facility] Start: 05-24-2022 Measuring intake and output [facility] Start: 05-24-2022 Providing care according to standard [facility] Start: 05-24-2022 Referral to occupational therapist [facility] Start: 05-24-2022 Referral to service [facility] Start: 05-24-2022 [facility] Start: 05-24-2022 Following clinical pathway protocol [facility] Start: 05-24-2022 Cell count and Differential panel - Body fluid [facility] Start: 05-24-2022 Glucose measurement, body fluid [facility] Start: 05-24-2022 Verification routine [facility] Start: 05-24-2022 Admission procedure [facility] Start: 05-24-2022 Bacteria identified in Body fluid by Culture [facility] Start: 05-24-2022 Microscopic observation [Identifier] in Body fluid by Cyto stain [facility] Start: 05-20-2022 [facility] Start: 05-05-2022 COVID-19 VACCINE (6 - Pfizer risk series) COVID-19 VACCINE (6 - Pfizer risk series) [facility] Start: 05-03-2022 End: 05-03-2023 aPTT in Platelet poor plasma by Coagulation assay ACTIVATED PTT Lab Routine Other intra-abdominal and pelvic swelling, mass and lump Other abnormal tumor markers Neoplasm of unspecified behavior of unspecified site Preop examination Expected: 05/03/2022, Expires: 05/03/2023 [facility] Work Phone: Comment on above: Expected: 05/03/2022, Expires: Start: 05-03-2022 End: 05-31-2022 CBC panel - Blood by Automated count CBC Lab Routine Other intra-abdominal and pelvic swelling, mass and lump Other abnormal tumor markers Preop examination Expected: 05/03/2022 (Approximate), Expires: 05/31/2022 [facility] Work Phone: Comment on above: Expected: 05/03/2022 (Approximate), Expi res: 05/31/2022 Start: 05-03-2022 End: 05-31-2022 Comprehensive metabolic 2000 panel - Serum or Plasma COMP METABOLIC PANEL Lab Routine Other intra-abdominal and pelvic swelling, mass and lump Other abnormal tumor markers Preop examination Expected: 05/03/2022 (Approximate), Expires: 05/31/2022 [facility] Work Phone: Comment on above: Expected: 05/03/2022 (Approximate), Expi res: 05/31/2022 Start: 05-03-2022 End: 2022 CONFIRM BLOOD TYPE CONFIRM BLOOD TYPE Blood Bank Routine Other intra-abdominal and pelvic swelling, mass and lump Other abnormal tumor markers Preop examination Expected: 05/03/2022 (Approximate), Expires: 2022 [facility] Work Phone: Comment on above: Expected: 05/03/2022 (Approximate), Expi res: 2022 Start: 05-03-2022 End: 05-03-2023 PT panel - Platelet poor plasma by Coagulation assay PROTHROMBIN TIME/PT Lab Routine Other intra-abdominal and pelvic swelling, mass and lump Other abnormal tumor markers Neoplasm of unspecified behavior of unspecified site Preop examination Expected: 05/03/2022, Expires: 05/03/2023 [facility] Work Phone: Comment on above: Expected: 05/03/2022, Expires: 4 Start: 05-03-2022 End: 05-03-2023 TYPE AND SCREEN,30 DAY TYPE AND SCREEN,30 DAY Blood Bank Routine Other intra-abdominal and pelvic swelling, mass and lump Other abnormal tumor markers Preop examination Expected: 05/03/2022, Expires: 05/03/2023 [facility] Work Phone: Comment on above: Expected: 05/03/2022, Expires: 4 Start: 04-30-2022 Patient discharge [facility] Start: 04-29-2022 Consultation [facility] Start: 04-28-2022 Following clinical pathway protocol [facility] Start: 04-28-2022 Ambulation without limitation [facility] Start: 04-28-2022 Assessment of risk of venous thromboembolism [facility] Start: 04-28-2022 Catheterization of vein [facility] Start: 04-28-2022 Insertion of catheter into peripheral vein [facility] Start: 04-28-2022 Providing care according to standard [facility] Start: 04-28-2022 [facility] Start: 04-28-2022 Verification routine [facility] Start: 04-28-2022 Admission procedure [facility] Start: 04-28-2022 Blood culture [facility] Start: 04-04-2022 Patient referral [facility] Work Phone: Start: 04-01-2022 ADVANCE DIRECTIVE DISCUSSION ADVANCE DIRECTIVE DISCUSSION [facility] Start: 04-01-2022 DEPRESSION ASSESSMENT DEPRESSION ASSESSMENT [facility] Start: 12-25-2021 End: 02-24-2022 CBC W Auto Differential panel - Blood CBC + DIFF Lab STAT CLL (chronic lymphocytic leukemia) (HCC) Lymphocytosis Anemia, unspecified type Expected: 12/25/2021, Expires: 02/24/2022 [facility] Work Phone: Comment on above: Expected: 12/25/2021, Expires: 2 Start: 12-25-2021 End: 02-24-2022 Ferritin [Mass/volume] in Serum or Plasma [facility] Work Phone: Comment on above: Expected: 12/25/2021, Expires: 2 Start: 12-25-2021 End: 02-24-2022 Iron and Iron binding capacity panel - Serum or Plasma [facility] Work Phone: Comment on above: Expected: 12/25/2021, Expires: 2 Start: 12-21-2021 COVID-19 VACCINE (5 - Booster for Pfizer series) COVID-19 VACCINE (5 - Booster for Pfizer series) [facility] Start: 12-14-2021 End: 02-13-2022 CBC panel - Blood by Automated count CBC Lab Routine S/P TAVR (transcatheter aortic valve replacement) Expected: 12/14/2021, Expires: 02/13/2022 [facility] Work Phone: Comment on above: Expected: 12/14/2021, Expires: 2 Start: 12-14-2021 End: 02-13-2022 Comprehensive metabolic 2000 panel - Serum or Plasma COMP METABOLIC PANEL Lab Routine S/P TAVR (transcatheter aortic valve replacement) Expected: 12/14/2021, Expires: 02/13/2022 [facility] Work Phone: Comment on above: Expected: 12/14/2021, Expires: 2 Start: 12-14-2021 End: 02-13-2022 HIGH SENSITIVITY TROPONIN T HIGH SENSITIVITY TROPONIN T Lab Routine S/P TAVR (transcatheter aortic valve replacement) Expected: 12/14/2021, Expires: 02/13/2022 [facility] Work Phone: Comment on above: Expected: 12/14/2021, Expires: 2 Start: 12-14-2021 End: 02-13-2022 Natriuretic peptide.B prohormone N-Terminal [Mass/volume] in Serum or Plasma NT PRO BNP Lab Routine S/P TAVR (transcatheter aortic valve replacement) 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) Expected: 12/14/2021, Expires: 02/13/2022 [facility] Work Phone: Comment on above: Expected: 12/14/2021, Expires: 2 Start: 12-01-2021 End: 01-31-2022 CBC W Auto Differential panel - Blood CBC + DIFF Lab STAT Aortic valve disorder Expected: 12/01/2021, Expires: 01/31/2022 [facility] Work Phone: Comment on above: Expected: 12/01/2021, Expires: 2 Start: 12-01-2021 End: 01-31-2022 Comprehensive metabolic 2000 panel - Serum or Plasma COMP METABOLIC PANEL Lab STAT Aortic valve disorder Expected: 12/01/2021, Expires: 01/31/2022 [facility] Work Phone: Comment on above: Expected: 12/01/2021, Expires: 2 Start: 12-01-2021 End: 01-31-2022 CONFIRM BLOOD TYPE CONFIRM BLOOD TYPE Blood Bank Routine Nonrheumatic aortic valve stenosis Expected: 12/01/2021, Expires: 01/31/2022 [facility] Work Phone: Comment on above: Expected: 12/01/2021, Expires: 2 Start: 12-01-2021 End: 01-31-2022 Natriuretic peptide.B prohormone N-Terminal [Mass/volume] in Serum or Plasma NT PRO BNP Lab STAT Nonrheumatic aortic valve stenosis Acute diastolic (congestive) heart failure (HCC) Expected: 12/01/2021, Expires: 01/31/2022 [facility] Work Phone: Comment on above: Expected: 12/01/2021, Expires: 2 Start: 12-01-2021 End: 01-31-2022 PT panel - Platelet poor plasma by Coagulation assay PROTHROMBIN TIME/PT Lab STAT Nonrheumatic aortic valve stenosis Expected: 12/01/2021, Expires: 01/31/2022 [facility] Work Phone: Comment on above: Expected: 12/01/2021, Expires: 2 Start: 12-01-2021 End: 04-02-2022 SARS-CoV-2 (COVID-19) RNA [Presence] in Respiratory specimen by MARYJO with probe detection INTERMEDIATE RAPID COVID Microbiology Routine Nonrheumatic aortic valve stenosis Expected: 12/01/2021, Expires: 04/02/2022 [facility] Work Phone: Comment on above: Expected: 12/01/2021, Expires: 3 Start: 12-01-2021 End: 01-31-2022 TYPE AND SCREEN,30 DAY TYPE AND SCREEN,30 DAY Blood Bank Routine Nonrheumatic aortic valve stenosis Expected: 12/01/2021, Expires: 01/31/2022 [facility] Work Phone: Comment on above: Expected: 12/01/2021, Expires: 2 Start: 11-30-2021 Influenza vaccination [facility] Start: 11-06-2021 End: 01-06-2022 CBC W Auto Differential panel - Blood CBC + DIFF Lab Routine Encounter for preprocedural cardiovascular examination Aortic valve disorder Expected: 11/06/2021 (Approximate), Expires: 01/06/2022 [facility] Work Phone: Comment on above: Expected: 11/06/2021 (Approximate), Expi res: 01/06/2022 Start: 11-06-2021 End: 01-06-2022 Comprehensive metabolic 2000 panel - Serum or Plasma COMP METABOLIC PANEL Lab Routine Encounter for preprocedural cardiovascular examination Aortic valve disorder Expected: 11/06/2021 (Approximate), Expires: 01/06/2022 [facility] Work Phone: Comment on above: Expected: 11/06/2021 (Approximate), Expi res: 01/06/2022 Start: 11-06-2021 End: 01-06-2022 HIGH SENSITIVITY TROPONIN T HIGH SENSITIVITY TROPONIN T Lab Routine Encounter for preprocedural cardiovascular examination Aortic valve disorder Expected: 11/06/2021 (Approximate), Expires: 01/06/2022 [facility] Work Phone: Comment on above: Expected: 11/06/2021 (Approximate), Expi res: 01/06/2022 Start: 11-06-2021 End: 01-06-2022 Natriuretic peptide.B prohormone N-Terminal [Mass/volume] in Serum or Plasma NT PRO BNP Lab Routine Encounter for preprocedural cardiovascular examination Aortic valve disorder Heart failure due to valvular disease, unspecified failure chronicity, combined (HCC) Expected: 11/06/2021 (Approximate), Expires: 01/06/2022 [facility] Work Phone: Comment on above: Expected: 11/06/2021 (Approximate), Expi res: 01/06/2022 Start: 10-15-2021 COVID-19 VACCINE (5 - Booster for Pfizer series) COVID-19 VACCINE (5 - Booster for Pfizer series) [facility] Start: 10-11-2021 End: 12-11-2021 CREATININE BLD CREATININE BLD Lab Routine Nonrheumatic aortic valve stenosis Encounter for preprocedural cardiovascular examination Aortic valve disorder Expected: 10/11/2021, Expires: 12/11/2021 [facility] Work Phone: Comment on above: Expected: 10/11/2021, Expires: 2 Start: 09-29-2021 Pulse taking [facility] Work Phone: Start: 09-29-2021 Notification of physician [facility] Work Phone: Start: 09-29-2021 Patient discharge [facility] Work Phone: Start: 09-29-2021 Provision of activity privileges [facility] Work Phone: Start: 09-29-2021 Scheduling [facility] Work Phone: Start: 09-29-2021 Taking patient vital signs [facility] Work Phone: Start: 09-29-2021 Vascular disease risk assessment [facility] Work Phone: Start: 09-29-2021 End: 09-29-2021 [facility] Work Phone: Start: 09-29-2021 Vital signs measurements [facility] Work Phone: Start: 08-03-2021 End: 10-03-2021 JERALD DIRECT [facility] Work Phone: Comment on above: Expected: 08/03/2021, Expires: 2 Start: 08-03-2021 End: 10-03-2021 COPPER BLOOD [facility] Work Phone: Comment on above: Expected: 08/03/2021, Expires: 2 Start: 08-03-2021 End: 10-03-2021 FERRITIN BLD [facility] Work Phone: Comment on above: Expected: 08/03/2021, Expires: 2 Start: 08-03-2021 End: 10-03-2021 FLOW CYTOMETRY PERIPHERAL BLOOD LEUK/LYMPH (FCLEUK) [facility] Work Phone: Comment on above: Expected: 08/03/2021, Expires: 2 Start: 08-03-2021 End: 10-03-2021 Haptoglobin [Mass/volume] in Serum or Plasma [facility] Work Phone: Comment on above: Expected: 08/03/2021, Expires: 2 Start: 08-03-2021 End: 10-03-2021 IRON + TIBC [facility] Work Phone: Comment on above: Expected: 08/03/2021, Expires: 2 Start: 08-03-2021 End: 10-03-2021 VITAMIN B12 BLOOD [facility] Work Phone: Comment on above: Expected: 08/03/2021, Expires: 2 Start: 06-07-2021 Patient referral [facility] Work Phone: Start: 04-27-2021 COVID-19 VACCINE (4 - Booster for Pfizer series) COVID-19 VACCINE (4 - Booster for Pfizer series) [facility] Start: 04-01-2021 ADVANCE DIRECTIVE DISCUSSION ADVANCE DIRECTIVE DISCUSSION [facility] Start: 04-01-2021 DEPRESSION ASSESSMENT DEPRESSION ASSESSMENT [facility] Start: 07-02-2004 BONE DENSITY BONE DENSITY [facility] Start: 07-02-2004 Bone Density Screening Bone Density Screening [facility] Start: 07-02-2004 PNEUMOCOCCAL: 65+ (1 - PCV) PNEUMOCOCCAL: 65+ (1 - PCV) [facility] Start: 07-02-2004 PNEUMOVAX AGE 65 AND OVER WITH 5YR LOOKBACK (#1) PNEUMOVAX AGE 65 AND OVER WITH 5YR LOOKBACK (#1) [facility] Start: 07-02-2004 Screening for osteoporosis Bone Density Screening [facility] Start: 06-30-2004 Medicare Annual Wellness Visit Medicare Annual Wellness Visit [facility] Start: 1999 RSV Vaccine (1 - 1-dose 60+ series) RSV Vaccine (1 - 1-dose 60+ series) [facility] Start: 07-02-1989 SHINGRIX VACCINE (1 of 2) SHINGRIX VACCINE (1 of 2) [facility] Start: 07-02-1958 SHINGRIX VACCINE (1 of 2) SHINGRIX VACCINE (1 of 2) [facility] Start: 07-02-1958 Urine microalbumin profile [facility] Start: 07-02-1957 Anxiety Screening Anxiety Screening [facility] Start: 07-02-1957 Depression Screening Depression Screening [facility] Start: 07-02-1957 Hepatitis B surface antibody level LDL CHOLESTEROL [facility] Start: 07-02-1950 Screening for malignant neoplasm of cervix Cervical Cancer Screening [facility] Start: 07-02-1945 Pneumococcal Vaccine: 65+ (1 - PCV) Pneumococcal Vaccine: 65+ (1 - PCV) [facility] Start: 07-02-1945 Pneumococcal Vaccine: 65+ (1 of 2 - PCV) Pneumococcal Vaccine: 65+ (1 of 2 - PCV) [facility] Start: 07-02-1945 PNEUMOCOCCAL: 65+ (1 - PCV) PNEUMOCOCCAL: 65+ (1 - PCV) [facility] Abdom paracentesis dx/ther w/imaging guidance IMAGING GUIDED PARACENTESIS Radiology Routine Other intra-abdominal and pelvic swelling, mass and lump Ordered: 04/19/2022 [facility] Work Phone: Comment on above: Ordered: 04/19/2022 End: 04-23-2023 Abdom paracentesis dx/ther w/imaging guidance ABDOM PARACENTESIS DX/THER W IMAGING GUIDANCE Endoscopy Routine Other intra-abdominal and pelvic swelling, mass and lump 1 Occurrences starting 04/23/2022 until 04/23/2023 [facility] Work Phone: Comment on above: 1 Occurrences starting 04/23/2022 until 04/23/2023 Albumin [Mass/volume ] in Body fluid [facility] Work Phone: Comment on above: Release Upon Ordering for 1 Occurrences starting 04/27/2022, 1 completed Amylase [Enzymatic activity/volume] in Body fluid [facility] Work Phone: Comment on above: Release Upon Ordering for 1 Occurrences starting 04/27/2022, 1 completed Bacteria identified in Blood by Culture Blood Culture [facility] Bacteria identified in Body fluid by Culture BODY FLUID CULTURE AND GRAM STAIN Microbiology Routine Other intra-abdominal and pelvic swelling, mass and lump 04/27/2022 10:25 AM [facility] Work Phone: Bacteria identified in Unspecified specimen by Anaerobe culture [facility] Work Phone: Comment on above: Release Upon Ordering for 1 Occurrences starting 04/27/2022 End: 11-16-2023 Basic metabolic 2000 panel - Serum or Plasma BASIC METABOLIC PNL Lab STAT 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) CLL (chronic lymphocytic leukemia) (HCC) Once per week for 52 Occurrences starting 11/17/2022 until 11/16/2023 [facility] Work Phone: Comment on above: Once per week for 52 Occurrences startin g 11/17/2022 until 11/16/2023 BF MANUAL DIFF BF MANUAL DIFF L ab Routine Other intra-abdominal and pelvic swelling, mass and lump 04/27/2022 10:25 AM [facility] Work Phone: End: 07-16-2023 Cancer Ag 125 [Units/volume] in Serum or Plasma CA 125 BLD Lab Routine 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) CLL (chronic lymphocytic leukemia) (HCC) Elevated cancer antigen 125 (CA 125) Every 3 weeks for 18 Occurrences starting 07/16/2022 until 07/16/2023 [facility] Work Phone: Comment on above: Every 3 weeks for 18 Occurrences startin g 07/16/2022 until 07/16/2023 End: 02-29-2024 Cancer Ag 125 [Units/volume] in Serum or Plasma CA 125 BLD Lab Routine 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, unspecified laterality (HCC) Once per month for 20 Occurrences starting 03/01/2023 until 02/29/2024 [facility] Work Phone: Comment on above: Once per month for 20 Occurrences starti ng 03/01/2023 until 02/29/2024 End: 04-13-2025 Cancer Ag 125 [Units/volume] in Serum or Plasma CA 125 Lab Routine 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, unspecified laterality (HCC) Once per week for 52 Occurrences starting 04/13/2024 until 04/13/2025 [facility] Comment on above: Once per week for 52 Occurrences startin g 04/13/2024 until 04/13/2025 CBC W Auto Different ial panel - Blood CBC + DIFF Lab Routine Lymphocytosis Anemia, unspecified type 08/03/2021 4:07 PM EDT [facility] Work Phone: End: 07-16-2023 CBC W Auto Differential panel - Blood CBC + DIFF Lab STAT 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) CLL (chronic lymphocytic leukemia) (HCC) Every 3 weeks for 18 Occurrences starting 07/16/2022 until 07/16/2023 [facility] Work Phone: Comment on above: Every 3 weeks for 18 Occurrences startin g 07/16/2022 until 07/16/2023 End: 02-29-2024 CBC W Auto Differential panel - Blood CBC + DIFF Lab STAT Uterine carcinosarcoma (HCC) Once per month for 20 Occurrences starting 03/01/2023 until 02/29/2024 [facility] Work Phone: Comment on above: Once per month for 20 Occurrences starti ng 03/01/2023 until 02/29/2024 End: 04-13-2025 CBC W Auto Differential panel - Blood COMPLETE BLOOD COUNT AND DIFFERENTIAL Lab STAT 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) Once per week for 52 Occurrences starting 04/13/2024 until 04/13/2025 [facility] Comment on above: Once per week for 52 Occurrences startin g 04/13/2024 until 04/13/2025 End: 07-16-2023 Comprehensive metabolic 2000 panel - Serum or Plasma COMP METABOLIC PANEL Lab STAT 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) CLL (chronic lymphocytic leukemia) (HCC) Every 3 weeks for 18 Occurrences starting 07/16/2022 until 07/16/2023 [facility] Work Phone: Comment on above: Every 3 weeks for 18 Occurrences startin g 07/16/2022 until 07/16/2023 End: 02-29-2024 Comprehensive metabolic 2000 panel - Serum or Plasma COMP METABOLIC PANEL Lab STAT Uterine carcinosarcoma (HCC) Once per month for 20 Occurrences starting 03/01/2023 until 02/29/2024 [facility] Work Phone: Comment on above: Once per month for 20 Occurrences starti ng 03/01/2023 until 02/29/2024 End: 04-13-2025 Comprehensive metabolic 2000 panel - Serum or Plasma COMPREHENSIVE METABOLIC PANEL Lab Routine 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) Once per week for 52 Occurrences starting 04/13/2024 until 04/13/2025 [facility] Comment on above: Once per week for 52 Occurrences startin g 04/13/2024 until 04/13/2025 End: 05-13-2025 CT Abdomen and Pelvis W contrast IV CT ABD/PEL W IVCON Radiology Routine 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) 1 Occurrences starting 04/13/2024 until 05/13/2025 [facility] Comment on above: 1 Occurrences starting 04/13/2024 until 05/13/2025 CT Abdomen and Pelvi s W contrast IV CT ABD/PEL W IVCON Radiology Routine 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) 04/17/2024 11:05 AM [facility] End: 05-23-2023 CT CHEST W IVCON CT CHEST W IVCON Radiology Routine Lung nodules 1 Occurrences starting 04/23/2022 until 05/23/2023 [facility] Work Phone: Comment on above: 1 Occurrences starting 04/23/2022 until 05/23/2023 End: 05-13-2025 CT Chest WO contrast CT CHEST WO IVCON Radiology Routine 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) 1 Occurrences starting 04/13/2024 until 05/13/2025 [facility] Work Phone: Comment on above: 1 Occurrences starting 04/13/2024 until 05/13/2025 CT Chest WO contrast CT CHEST WO IVCON Radiology Routine 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) 04/17/2024 11:05 AM EST [facility] Work Phone: End: 08-12-2023 CTA CHEST/ABD/PEL (GATED) W IVCON CTA CHEST/ABD/PEL (GATED) W IVCON Radiology Routine Encounter for preprocedural cardiovascular examination Aortic valve disorder 1 Occurrences starting 10/11/2021 until 11/10/2022 [facility] Work Phone: Comment on above: 1 Occurrences starting 10/11/2021 until 11/10/2022 CYTOLOGY NON-CONFERENCE RESERVATIONIST [facility] Work Phone: Comment on above: Ordered: 04/19/2022 CYTOLOGY NON-CONFERENCE RESERVATIONIST [facility] Work Phone: Comment on above: Release Upon Ordering for 1 Occurrences starting 04/27/2022 End: 10-11-2022 ECG COMPLETE ECG COMPLETE ECG Routine Aortic valve disorder 1 Occurrences starting 10/11/2021 until 10/11/2022 [facility] Work Phone: Comment on above: 1 Occurrences starting 10/11/2021 until 10/11/2022 End: 12-01-2022 ECG COMPLETE ECG COMPLETE ECG Routine Aortic valve disorder 1 Occurrences starting 12/01/2021 until 12/01/2022 [facility] Work Phone: Comment on above: 1 Occurrences starting 12/01/2021 until 12/01/2022 End: 12-14-2022 ECG COMPLETE ECG COMPLETE ECG Routine S/P TAVR (transcatheter aortic valve replacement) 1 Occurrences starting 12/14/2021 until 12/14/2022 [facility] Work Phone: Comment on above: 1 Occurrences starting 12/14/2021 until 12/14/2022 End: 05-03-2023 ECG COMPLETE ECG COMPLETE ECG Routine Other intra-abdominal and pelvic swelling, mass and lump Other abnormal tumor markers Preop examination 1 Occurrences starting 05/03/2022 until 05/03/2023 [facility] Work Phone: Comment on above: 1 Occurrences starting 05/03/2022 until 05/03/2023 End: 12-01-2022 ECHO TRANSESOPHAGEAL ECHO TRANSESOPHAGEAL Cardiology Routine Nonrheumatic aortic valve stenosis 1 Occurrences starting 12/01/2021 until 12/01/2022 [facility] Work Phone: Comment on above: 1 Occurrences starting 12/01/2021 until 12/01/2022 End: 10-11-2022 Echocardiography ECHO Cardiology Routine Encounter for preprocedural cardiovascular examination Aortic valve disorder 1 Occurrences starting 10/11/2021 until 10/11/2022 [facility] Work Phone: Comment on above: 1 Occurrences starting 10/11/2021 until 10/11/2022 End: 12-14-2022 Echocardiography ECHO Cardiology Routine S/P TAVR (transcatheter aortic valve replacement) 1 Occurrences starting 12/14/2021 until 12/14/2022 [facility] Work Phone: Comment on above: 1 Occurrences starting 12/14/2021 until 12/14/2022 End: 12-22-2022 Echocardiography ECHO Cardiology Routine S/P TAVR (transcatheter aortic valve replacement) 1 Occurrences starting 12/22/2021 until 12/22/2022 [facility] Work Phone: Comment on above: 1 Occurrences starting 12/22/2021 until 12/22/2022 End: 02-23-2023 Echocardiography ECHO Cardiology Routine 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) 1 Occurrences starting 02/23/2022 until 02/23/2023 [facility] Work Phone: Comment on above: 1 Occurrences starting 02/23/2022 until 02/23/2023 End: 06-02-2023 Echocardiography ECHO Cardiology Routine 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) 1 Occurrences starting 06/01/2022 until 06/02/2023 [facility] Work Phone: Comment on above: 1 Occurrences starting 06/01/2022 until 06/02/2023 End: 06-27-2023 Echocardiography ECHO Cardiology STAT S/P TAVR (transcatheter aortic valve replacement) Pericardial effusion (noninflammatory) Uterine carcinosarcoma (HCC) 1 Occurrences starting 06/26/2022 until 06/27/2023 [facility] Work Phone: Comment on above: 1 Occurrences starting 06/26/2022 until 06/27/2023 Glucose measurement, body fluid [facility] Hematocrit [Volume Fraction] of Blood [facility] Hemoglobin [Mass/vol ume] in Blood [facility] Lactate dehydrogenas e [Enzymatic activity/volume] in Body fluid by Pyruvate to lactate reaction [facility] Leukocytes [#/volume ] in Blood [facility] End: 11-10-2022 LUNG DIFFUSION CAPACITY (DLCO) LUNG DIFFUSION CAPACITY (DLCO) PFT Routine Encounter for preprocedural cardiovascular examination Aortic valve disorder 1 Occurrences starting 10/11/2021 until 11/10/2022 [facility] Work Phone: Comment on above: 1 Occurrences starting 10/11/2021 until 11/10/2022 Magnesium [Mass/volu me] in Serum or Plasma [facility] End: 11-02-2023 Magnesium [Mass/volume] in Serum or Plasma MAGNESIUM BLD Lab STAT 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) Every 3 weeks for 18 Occurrences starting 11/03/2022 until 11/02/2023 [facility] Work Phone: Comment on above: Every 3 weeks for 18 Occurrences startin g 11/03/2022 until 11/02/2023 Mean corpuscular hemoglobin concentration determination [facility] Mean corpuscular hemoglobin determination [facility] Neutrophil count [facility] Neutrophil percent differential count [facility] End: 11-10-2022 NM SPECT/CT CARDIAC AMYLOID NM SPECT/CT CARDIAC AMYLOID Radiology Routine Encounter for preprocedural cardiovascular examination Aortic valve disorder 1 Occurrences starting 10/11/2021 until 11/10/2022 [facility] Work Phone: Comment on above: 1 Occurrences starting 10/11/2021 until 11/10/2022 Patient Education [facility] Work Phone: Patient referral [facility] Work Phone: Platelets [#/volume] in Blood [facility] Protein [Mass/volume ] in Body fluid [facility] Protein [Mass/volume ] in Body fluid [facility] End: 11-10-2022 Radiologic exam chest 2 views XR CHEST 2V FRONTAL/LAT Radiology Routine Encounter for preprocedural cardiovascular examination Aortic valve disorder 1 Occurrences starting 10/11/2021 until 11/10/2022 [facility] Work Phone: Comment on above: 1 Occurrences starting 10/11/2021 until 11/10/2022 End: 12-31-2022 Radiologic exam chest 2 views XR CHEST 2V FRONTAL/LAT Radiology Routine Nonrheumatic aortic valve stenosis 1 Occurrences starting 12/01/2021 until 12/31/2022 [facility] Work Phone: Comment on above: 1 Occurrences starting 12/01/2021 until 12/31/2022 End: 06-01-2023 Radiologic exam chest 2 views XR CHEST 2V FRONTAL/LAT Radiology Routine Other intra-abdominal and pelvic swelling, mass and lump Other abnormal tumor markers Preop examination 1 Occurrences starting 05/03/2022 until 06/01/2023 [facility] Work Phone: Comment on above: 1 Occurrences starting 05/03/2022 until 06/01/2023 Red blood cell count [facility] RED BLOOD CELLS, ADULT RED BLOOD CELLS, ADULT Blood Bank Routine Nonrheumatic aortic valve stenosis 1 Occurrences starting 12/01/2021 [facility] Work Phone: Comment on above: 1 Occurrences starting 12/01/2021 Red cell distributio n width determination [facility] REFER FOR ADMIT INTERVIEW REFER FOR ADMIT INTERVIEW Procedures Routine Other intra-abdominal and pelvic swelling, mass and lump Other abnormal tumor markers Preop examination Ordered: 05/03/2022 [facility] Work Phone: Comment on above: Ordered: 05/03/2022 Specimen description [facility] Specimen processing [facility] End: 11-10-2022 SPIROMETRY BASELINE ONLY SPIROMETRY BASELINE ONLY PFT Routine Encounter for preprocedural cardiovascular examination Aortic valve disorder 1 Occurrences starting 10/11/2021 until 11/10/2022 [facility] Work Phone: Comment on above: 1 Occurrences starting 10/11/2021 until 11/10/2022 SPIROMETRY BASELINE ONLY SPIROME TRY BASELINE ONLY PFT Routine Encounter for preprocedural cardiovascular examination Aortic valve disorder 11/06/2021 10:23 AM EDT [facility] Work Phone: End: 05-23-2025 US Abdomen RUQ US ABD RIGHT UPPER QUADRANT Radiology Routine Abnormal CT of liver 1 Occurrences starting 04/23/2024 until 05/23/2025 [facility] Work Phone: Comment on above: 1 Occurrences starting 04/23/2024 until 05/23/2025 US Abdomen RUQ US ABD RIGHT UPP ER QUADRANT Radiology Routine Abnormal CT of liver 04/27/2024 11:29 AM EST [facility] Work Phone: End: 06-11-2025 US Kidney - bilateral and Urinary bladder US KIDNEY/BLADDER Radiology Routine RINA (acute kidney injury) (HCC) 1 Occurrences starting 05/12/2024 until 06/11/2025 [facility] Work Phone: Comment on above: 1 Occurrences starting 05/12/2024 until 06/11/2025 US Kidney - bilatera l and Urinary bladder US KIDNEY/BLADDER Radiology Routine RINA (acute kidney injury) (HCC) 05/14/2024 2:19 PM EST [facility] Work Phone: XR Hand - right PA a nd Lateral and Oblique XR HAND GENERAL 3V PA/LAT/OBL RIGHT Radiology Routine Pain of right hand 09/06/2023 1:51 PM EDT [facility] Work Phone: End: 10-05-2024 XR Hand - right PA and Lateral and Oblique XR HAND GENERAL 3V PA/LAT/OBL RIGHT Radiology Routine Pain of right hand 1 Occurrences starting 09/06/2023 until 10/05/2024 [facility] Work Phone: Comment on above: 1 Occurrences starting 09/06/2023 until 10/05/2024 [facility] Immunizations Immunization Date Immunization Notes Care Provider [facility] 07-04-[address] Vern Bernardo MD Work Phone: [facility] 03-05-[address] Vern Bernardo MD Work Phone: [facility] 02-25-2024 influenza virus vaccine, unspecified formulation Tiffany ROSEN [facility] 04-05-2023 Pneumococcal Vaccine PCV20 (Prevnar 20) Dr. Vern Bernardo MD Work Phone: [facility] 04-04-2023 RSV Adult Recombinan t (Arexvy) Dr. Vern Bernardo MD Work Phone: [facility] 12-20-2022 influenza, injectabl e, quadrivalent, preservative free Dr. Vern Bernardo Work Phone: [facility] 12-20-2022 influenza virus vaccine, unspecified formulation Ruddy Patricio DO Work Phone: [facility] 03-10-2022 Covid Pfizer Bivalen t Booster Dr. Vern Bernardo Work Phone: [facility] 01-19-2022 Influenza, high dose seasonal Dr. Vern Bernardo MD Work Phone: [facility] 01-19-2022 influenza, high dose seasonal, preservative-free Dr. Vern Bernardo Work Phone: [facility] 01-19-2022 influenza, injectabl e, quadrivalent, preservative free Dr. Vern Bernardo MD Work Phone: [facility] 01-19-2022 influenza virus vaccine, unspecified formulation Nir Roth MD Work Phone: [facility] 08-20-2021 Covid (Pfizer) Dr. Vern bui Work Phone: [facility] 12-26-2020 Covid (Pfizer) Dr. Vern bui Work Phone: [facility] 05-12-2020 Covid (Pfizer) Dr. Vren bui Work Phone: [facility] 04-21-2020 Covid (Pfizer) Dr. Vern bui Work Phone: [facility] 01-30-2020 Influenza, injectabl e, Madin [place] Canine Kidney, preservative free, quadrivalent Dr. Vern Bernardo MD Work Phone: [facility] 03-12-2019 influenza, injectabl e, quadrivalent, preservative free Dr. Vern Bernardo MD Work Phone: [facility] 01-16-2018 Influenza, injectabl e, Madin [place] Canine Kidney, preservative free, quadrivalent Dr. Vern Bernardo MD Work Phone: [facility] 04-29-2017 Influenza, injectabl e, Madin Frank[place] Canine Kidney, preservative free, quadrivalent Dr. Vern Bernardo MD Work Phone: [facility] Payers Date Payer Category Payer Self-pay [id number] 2020 Unknown [employer] [id number] 2020-Present [phone] [place] [place] [address] Indemnity [id number] 2006 Private Health Insurance [employer] [id number] 2006 Unknown [id number] 2006 Unknown [id number] 2004 Medicare MEDICARE MEDICAR E A AND B [id number] 2004-Present [phone] [place] [address] Medicare [id number] 2004 Medicare [id number] 2004 Medicare [id number] Unknown [id number] Unknown [id number] Unknown [id number] Unknown [id number] Social History Date Type Detail Facility Start: 06-07-2021 End: 07-18-2023 Tobacco smoking status VAIS Unknown if ever smoked [facility] Start: 1940 Sex Assigned At Female W [facility] Start: 08-03-2021 End: 12-22-2021 Tobacco smoking status NHIS Ex-smoker [facility] Start: 06-03-1989 End: 06-03-2014 History of tobacco use Current smoker [facility] Start: 08-03-2021 End: 12-22-2021 Tobacco use and exposure Smokeless tobacco non-user [facility] Start: 08-03-2021 End: 08-10-2024 Alcohol intake Lifetime non-drinker (finding) [facility] Start: 08-03-2021 History SDOH Alcohol Frequency 1 [facility] Start: 1940 Sex Assigned At Not on file [facility] Start: 07-24-2021 End: 02-23-2022 Exposure to SARS-CoV-2 (event) Not sure [facility] Start: 06-03-1989 End: 06-03-2014 History of tobacco use Cigarette Smoker [facility] Start: 08-03-2021 End: 04-13-2022 Cigarettes smoked current (pack per day) - Reported 0.5 [facility] Start: 04-13-2022 End: 10-19-2022 Tobacco use panel [facility] Start: 07-05-2021 Adult Depression Screening Assessment 2 [facility] Start: 06-04-2022 Gender identity Identifies as female gender (finding) [facility] Start: 06-04-2022 Sexual orientation Heterosexual (fin ding) [facility] Medical Equipment Procedure Code Equipment Code Equipment Origin al Text Equipment Identifier Dates [id number] Implant - [id number] Start: 12-14-2021 Goals Date Patient Goal Desired Activity /State Functional Status Date Assessment Result Facility 05-31-2022 Functional status Chair;Bathroom Privileg e [facility] Work Phone: 04-30-2022 Functional status Ambulates;Up ad james [facility] Work Phone: 12-15-2021 Are you deaf, or do you have serious difficulty hearing No [facility] 12-15-2021 Are you blind, or do you have serious difficulty seeing, even when wearing glasses No [facility] 12-15-2021 Do you have serious difficulty walking or climbing stairs No [facility] 12-15-2021 Do you have difficul ty dressing or bathing No [facility] 12-15-2021 Because of a physica l, mental, or emotional condition, do you have difficulty doing errands alone such as visiting a physician's office or shopping No [facility] Mental Status Date Assessment Result Facility 06-29-2022 Cognitive function Awake;Alert;[facility] Work Phone: 06-25-2022 Cognitive function Awake;Alert;A ppropriate;Fol lows Commands [facility] Work Phone: 06-22-2022 Cognitive function Awake;Alert;A ppropriate;Fol lows Commands [facility] Work Phone: 06-15-2022 Cognitive function Awake;Alert;[facility] Work Phone: 06-11-2022 Cognitive function Awake;Alert;[facility] Work Phone: 06-07-2022 Cognitive function Awake;Alert;A ppropriate;Fol lows Commands [facility] Work Phone: 06-05-2022 Cognitive function Awake;Alert;A ppropriate;Fol lows Commands [facility] Work Phone: 05-31-2022 Cognitive function Voice/Name [facility] Work Phone: 05-28-2022 Cognitive function Awake;Alert [facility] Work Phone: 05-24-2022 Cognitive function Level Of Cons ciousness Awake;Alert;Appropriate;Fol lows Commands [facility] Work Phone: 05-24-2022 Cognitive function Level Of Cons ciousness Awake;Alert;Appropriate;Fol lows Commands [facility] Work Phone: 04-30-2022 Cognitive function Voice/Name [facility] Work Phone: 12-15-2021 Because of a physica l, mental, or emotional condition, do you have serious difficulty concentrating, remembering, or making decisions No [facility] Clinical Notes 08-03-2021 to 11-18-2024 Telephone Encounter - Sherine Martinez LPN - 11/18/2024 11:24 AM EDTTelephone Encounter - Sherine Martinez LPN - 11/18/2024 11:24 AM EDT Note Date & Type Note Facility 11-18-2024 Telephone encounter Note Form atting of this note might be different from the original. Pended. Sherine Martinez LPN [facility] 11-18-2024 Miscellaneous Notes Formattin g of this note might be different from the original. Pended. Sherine Martinez LPN November 18, 2024 Fax received from [place] requesting [place] new [place] for pt's Lynparza. Please send script to: [facility] [id number] [place] [address], [place] [address] Thank you, MARCELLE Hagan documented in this encounter [facility] 11-18-2024 Telephone encounter Note Form atting of this note might be different from the original. November 18, 2024 Fax received from [place] requesting a new prescription for pt's Lynparza. Please send script to: [facility]: [id number] [place] [address], [place] [address] Thank you, MARCELLE Hagan [facility] 10-16-2024 Progress note [facility] 10-16-2024 Progress note Note Date/Time October 16, 2024 11:25am [facility] [address], [address] [place] [address] OFFICE VISIT Date of Service: 10/16/24 MR#: [id number] Acct: [id number] Name: ASHLEY ALCANTAR Rep #: [id number] : 1940 Provider: CHAY Hess Age/Sex: 84/F Location: [facility] Status: Signed Intake Vital Signs 07/09/24 14:44 10/16/24 10:56 Height 4 ft 10 in Weight: 127 lb BMI 26.5 BP 124/68 H 138/66 H Blood Pressure Location Rt brachial Lt brachial Position Sitting Sitting Respiration 16 16 Pulse 56 L 63 Pulse Source Monitor NIBP Temp 98.0 F 98.5 F Temp Source Temporal Oral Pulse Oximetry (%) 96 97 Oxygen Delivery Method room air room air Intake Visit Reasons: CONCERN FOR SINUS INFECTION Chief Complaint: ST, left ear, left face, drainage, VELEZ Sink Cutter Required: No Is patient in pain?: Yes Allergies cephalexin (From Keflex) Allergy (Severe, Verified 10/16/24 10:56) Other Is last menstrual period known: No Post menopausal: Yes Patient : No Have you fallen in the past year?: No Nurse's Note: ST, left ear, left face, drainage, VELEZ x 24 hours. declines covid testing, concern for sinus infection [facility] Medical History (Updated 10/16/24 @ 11:24 by Armen CARTWRIGHT, PA) Groin discomfort Cyst of right kidney Cyst of left kidney Fatty liver Recurrent right pleural effusion Pelvic mass Hypotension CLL (chronic lymphocytic leukemia) Anxiety Mixed hyperlipidemia Acute sinusitis CKD (chronic kidney disease) Contact with and (suspected) exposure to other viral communicable diseases Urinary tract infection with hematuria History of right and left heart catheterization (LHC) (~09/29/21) Nonrheumatic aortic (valve) stenosis with insufficiency Tinnitus Elevated TSH Preop exam for internal medicine Aortic regurgitation Aortic stenosis Elevated blood pressure reading in office without diagnosis of hypertension Glaucoma Contusion of left hand including fingers Acute maxillary sinusitis, unspecified Hematuria UTI (urinary tract infection) Post herpetic neuralgia Strain of right trapezius muscle Incontinence Limb weakness Diarrhea Shoulder pain Surgical History H/O: hysterectomy History of transcatheter aortic valve replacement (TAVR) (~12/14/21) History of bilateral cataract extraction Family History Other Colon cancer Diabetes Myocardial infarction Social History household members: other details: number of children: 4 current occupational 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 Patient states this feels like most of the previous sinus infections she has hadin the past. She denies fever, chills or sweats. No nausea, vomiting or diarrhea. No hemoptysis, shortness of breath or difficulty breathing. No otherassociated symptoms or alleviating/aggravating factors. ROS Const Constitutional: No other (As above) Exam Const General: cooperative and healthy appearing HENKY Head: normal to inspection Ears: hearing grossly normal bilaterally, TM's normal bilaterally and EAC's normal Nose: nasal discharge purulent Face and sinus: sinus tenderness frontal and maxillary Mouth: oral mucosae normal Throat: abnormal tonsil bilaterally erythema and hypertrophy 1+ and postnasal drainage Resp Effort & Inspection: normal respiratory effort Auscultation: Bilateral: Clear to Auscultation Cardio Palpation: normal PMI Rate: regular rate Rhythm: regular rhythm Neuro General: patient alert and CN's II-XI intact bilaterally Psych Appearance: grossly normal Mental Status: mental status grossly normal Coding Level of Care Code Off vis,est,level 3 Diagnoses Acute sinusitis J01.90 Assessment and Plan Assessment and Plan (1) Acute sinusitis: Status: Acute Plan: Doxycycline and Atrovent as prescribed today. Encouraged to get plenty of rest,drink lots of clear liquids, and use Tylenol or Ibuprofen (unless contraindicated) for fever and comfort. Patient also educated on other symptomatic management techniques. To be seen in 7-10 days if no improvement; sooner if worsening of symptoms. Patient advised of potential red flags and when appropriate to report to the ED. Patient verbalized understanding and agreement with all the above. Orders: Orders POC Rapid SARS Antigen Today Medications: New doxycycline monohydrate 100 mg PO BID 10 days 20 tabs 0RF ipratropium bromide administer into each nostril 2 sprays intranasal BID-TID PRN 30 mL 0RF postnasal drainage Clinical Quality Measures Falls Risk Screening/Assistive Devices Have you fallen in the past year?: No 10/16/24 1812 <Electronically signed by Armen CARTWRIGHT> Date _ Armen CARTWRIGHT Cosigner Signature: Date (if applicable) CC: ~ [facility] Work Phone: [phone] Telephone encounter Note* Telephone Encounter - Gloria Barreto LPN - 09/07/2024 2:14 PM EDT Patient stopped in to the office with last week's blood pressure readin/67 HR 61 135/69 HR 54 126/66 HR 57 141/72 HR 49 145/75 HR 58 130/74 HR 62 Patient is not taking lisinopril as instructed. Dr. Patricio is aware of readings. Gloria Barreto LPN [facility]06-09-2025 Miscellaneous Notes* Telephone Encounter - Gloria Barreto LPN - 09/07/2024 2:14 PM EDT Patient stopped in to the office with last week's blood pressure readin/67 HR 61 135/69 HR 54 126/66 HR 57 141/72 HR 49 145/75 HR 58 130/74 HR 62 Patient is not taking lisinopril as instructed. Dr. Patricio is aware of readings. Gloria Barreto LPN [facility] Telephone encounter Note * Telephone Encounter - Gloria Barreto LPN - 08/31/2024 1:39 PM EDT Patient notified and verbalized understanding. Gloria Barreto LPN [facility]06-02-2025 Miscellaneous Notes* Telephone Encounter - Gloria Barreto LPN - 08/31/2024 1:39 PM EDT Patient notified and verbalized understanding. Gloria Barreto LPN * Telephone Encounter - Ruddy Patricio DO - 08/31/2024 1:06 PM EDT Blood pressures are doing pretty well off lisinopril. She can continue taking blood pressure perhaps twice a week and update us every 2 weeks. * Telephone Encounter - Gloria Barreto LPN - 08/31/2024 10:00 AM EDT Patient stopped by the desk today to drop off her current BP readings: 08/26/2024 129/64 HR56 08/27/2024 119/68 HR55 08/31/2024 148/68 and 132/64 HR49-52 Patient is currently holding lisinopril. Gloria Barreto LPN [facility] Telephone encounter Note * Telephone Encounter - Ruddy Patricio DO - 08/31/2024 1:06 PM EDT Blood pressures are doing pretty well off lisinopril. She can continue taking blood pressure perhaps twice a week and update us every 2 weeks. [facility]06-02-2025 Telephone encounter Note* Telephone Encounter - Gloria Barreto LPN - 08/31/2024 10:00 AM EDT Patient stopped by the desk today to drop off her current BP readings: 08/26/2024 129/64 HR56 08/27/2024 119/68 HR55 08/31/2024 148/68 and 132/64 HR49-52 Patient is currently holding lisinopril. Gloria Barreto LPN [facility]05-12-2025 History of Present illness Narrative* Ruddy Patricio DO - 08/10/2024 8:50 AM EDT Oncologic problem(s): 1) Uterine carcinosarcoma. 2) CLL. HPI: The patient is an 84-year-old female has a past medical history significant for hypertension and aortic stenosis. She had a CBC on 06/05/2021 as part of work-up for cataract surgery. She was incidentally found to have a white count of 25,900. Hemoglobin was 11.7 g/dL and the platelet count was 229,000. Differential significant for an absolute lymphocyte count of 20,850. Flow cytometry in mid May identified 2 populations of CD5 positive, CD23 positive monoclonal B cells. 1 representing 98% was lambda light chain restricted and the other 2% was kappa light chain restricted. Chemistry panel revealed a normal total bilirubin, AST, ALT and alkaline phosphatase. Total protein, albumin and globulin levels were normal. Serum creatinine was 1.0 mg/dL. Serum calcium was 9.2 mg/dL. As of initial visit: She has no complaints today. She is active. 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 She lives independently and is capable of all ADLs and IADLs. She has noticed some increase inshortness of breath over the last several weeks. She is scheduled to see a plastic die maker apprentice in [place] history of aortic stenosis. She has not had any unusual bleeding or unexplained bruising. 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 Didn't feel much different. She was seen by her PCP on 04/04/2022 with complaints of change in bowel habits associated with pain and pressure in the lower abdomen. She was referred to general surgery. On exam she was observed to have a right inguinal hernia most noticeable when she stood upright. It was easily reducible. In themedial right groin she had a somewhat mobile 1/2 cm subcutaneous nodule that was not reducible. Limited ultrasound suggested was a cystic lesion with some internal debris. Unclear whether it extendedsubfascially. An abdominal pelvic CT scan on 04/04/2022 revealed a low-density mass anterior to the uterus that measured 7.2 x 7.9 x 6.3 cm potentially representing a large exophytic fibroid. There was free fluid observed in the upper abdomen and pelvis. Small bilateral inguinal hernias were also noted slightly larger on the right with fluid extending into the hernia sacs. Multiple varices were observed in the pelvis potentially representing pelvic congestion syndrome. Pelvic ultrasound 04/05 demonstrated a large pedunculated fibroid in the left adnexa with moderate ascites. There was no definitive evidence for an ovarian mass however the ovaries were not visualized due to bowel gas producing artifact. Patient was evaluated by Dr. Borden at [facility]. Radiographic imaging was obtained. CT chest 04/25 demonstrated upper abdominal ascites with scarring at the lung apices more prominent on the right. There were small bilateral axillary lymph nodes and mild scarring of the lung apicesmost prominent on the right. Patient underwent diagnostic laparoscopy, peritoneal biopsies and drainage of ascites on 05/16/2022 at [facility] by Dr. Ary Borden. 4 L of ascites was aspirated during the procedure. 3 of which were submitted for cytology. A friable mass was identified in the pelvis adherent to the sigmoid colon and this was easily biopsied as it was quite friable. Frozen section of the mass demonstrated poorly differentiated carcinoma. Pathology: A and B. 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 Mismatch repair (MMR) interpretation: Proficient (microsatellite stable) Results Mismatch Repair Protein Immunohistochemistry Results: MLH1: Normal/Intact Nuclear Expression PMS2: Normal/Intact Nuclear Expression MSH2: Normal/Intact Nuclear Expression MSH6: Normal/Intact Nuclear Expression A - PELVIC FLUID. - ascities Atypical cells present. Patient had 1 visit to the [facility] ED on 05/20. Admitted to [facility] after saw PCP 05/24/2022. Patient had a right-sided thoracentesis ultrasound-guided on 05/24/2022. Approximately 1750 mL of blood-tinged fluid was drained. Cytology was negative for malignant cells. She underwent a second right sided ultrasound-guided thoracentesis on 05/28/2022. 2060 mL of blood-tinged fluid was drained. Cytology was not performed. An ultrasound of the abdomen on 05/29 did not identify a significant amount of ascites. Previous therapy: 1) Carboplatin and paclitaxel. Started cycle 1 on 06/06/2022. Competed 4 cycles. Had PleurX removed. Radical tumor reductive surgery including total abdominal hysterectomy and bilateral salpingo-oophorectomy, infracolic omentectomy, small bowel oversew, and bilateral inguinal herniorrhaphy on 09/19/22. Pathology: A: Ovary and fallopian tube, left: OVARY, CARCINOSARCOMA WITH HETEROLOGOUS ELEMENTS. (SEE SYNOPTIC AND COMMENT) FALLOPIAN TUBE, HIGH GRADE CARCINOMA IN A BACKGROUND OF FIBROSIS AND THERAPY RELATED CHANGES. B: Ovary and fallopian tube, right: Ovary, no tumor present. Fallopian tube, no tumor present. C: Uterus and cervix: Uterine cervix, no tumor present. Inactive endometrium. Adenomyosis. Uterine leiomyomata. Adenomyoma. Uterine serosa, dense fibrous adhesions. D: Left inguinal hernia sac: Fibroadipose and fibrous tissue with mesothelial lining, consistent with hernia sac. No tumor present. E: Omentum: Fibroadipose tissue with scattered chronic inflammation, no tumor present. The tumor shows extensive therapy related changes. The tumors a bi-phasic appearance, with portionsof tumor consistent with a high grade carcinoma component with foci of a sarcomatous component. Immunohistochemical stains are performed and show the tumor cells to be positive for MOC31, cytokeratin7, PAX- 8, WT-1, p53 (aberrant, cytoplasmic), ER (rare, weak) and LA (10%, moderate). Areas of spindled cells are positive for desmin, while negative for caldesmon, myogenin, myoD1, lopez-cytokeratin and cytokeratin 7. The sarcomatous component is predominantly a high grade spindled sarcoma, with focal heterologous component of cartilaginous differentiation; focally, rhabdoid features are seen but are not entirely supported by immunohistochemical stains. The findings are consistent with a carcinosarcoma with heterologous elements. Addendum 1 This addendum is issued to report findings of immunohistochemical studies performed at the request of the treating clinician. Immunohistochemistry for DNA mismatch repair proteins was performed using formalin-fixed, paraffin-embedded sections of the tumor. Both tumor cell nuclei and stromal cells have positive expression ofMLH1, MSH2, MSH6, and PMS2. Carcinomas with intact positive IHC expression of mismatch repair proteins are typically sporadic/microsatellite stable in nature. However, a subset of MSI- high carcinomas is associated with intact positive expression of mismatch repair proteins. Consider referral to genetic counseling if there is family history suggestive of a hereditary cancer syndrome She made a very nice recovery from surgery. She received Taxol at 175 mg meter squared on day 1 with cycle 5. For about a week she had malaise,loss of appetite, abdominal pain and diarrhea. Received 3 further cycles of carboplatin and Taxol following surgery. Last 2 cycles Taxol was dose to 80 mg meter squared weekly on days 1 and 8. Current therapy: 1) Olaparib. Started 01/2023. Was started on olaparib 200 mg twice daily secondary to renal function. Had worsening CKD with acute on chronic kidney disease while on that dose. Decreased to 100 mg BID. Underwent diagnostic laparotomy of abdomen, peritoneum and omentum JF--path in Care Everywhere. Presents for ongoing oncologic management. Interim history: Had injection site reaction to second Shingrix injection about months ago. Had flu-like symptoms for about a week, but they self resolved. Tolerating apixaban well with no unusual bleeding or unexplained bruising-Verified. Normal appetite. No nausea. Occasional reflux--if eats peppers. No recent abdominal pain. Occasional constipation. Occasionally has to push on bladder to void completely. Still has transient symptoms of numbness in the hands and feet. Still working at [employer] up to 25 to 30 hours a week. PMH, medications and allergies personally reviewed by me today. Any changes documented in appropriate section. ROS: Constitutional: Denies episodes of fever and night sweats. Neuro: Denies VELZE, vertigo, dizziness and imbalance. HEENT: No recent change in voice, vision or hearing. Resp: See HPI. CVS: Denies exertional chest pain, PND, orthopnea. GI: See HPI. : Denies dysuria or gross hematuria. Endo: Denies hot flashes. Denies polyuria and polydipsia. Denies heat and cold intolerance. Musculoskeletal: Denies bone, back, joint and muscular pain. Derm: Denies rash. Denies jaundice and diffuse pruritis. Heme: Denies unusual bleeding and unexplained bruising. Psych: Normal mood. PHYSICAL EXAM: Vitals: Blood pressure 120/58, pulse (!) 50, temperature 36.1 C (96.9 F), temperature source Temporal, height 147 cm (4' 9.87), weight 58.1 kg (128 lb), SpO2 99%. Well-appearing and in no acute distress. EYES: Sclerae are anicteric bilaterally. LYMPHATIC: There is no palpable cervical or supraclavicular adenopathy. RESPIRATORY: Clear inspiratory vesicular sounds throughout. CARDIOVASCULAR: Rhythm is regular. ABDOMEN: The abdomen is nondistended. No organomegaly. No tenderness. No fluid wave. SKIN: No jaundice. 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 -Underwent exploratory laparotomy 01/09/2023. Multiple biopsies all negative for disease. -No concerning symptoms or exam findings today. -CA125 remains in normal range as of 07/13/2024. -Per her oncologist at [facility]: We discussed that her imaging and labs are all consistent withno evidence of disease. We recommended that she continue the Olaparib maintenance, and if tolerating the 100mg BID that this would be fine to continue given her CKD. We discussed options for follow-up include coming here every [address] and follow-up, versus having scans (CT chest/abdome n/pelvis with contrast) every 6 months and letting our team know if there are any concerns for progression/recurrence, or a combination of follow-ups here and at home. We recommended 2 years of olaparib maintenance so long as she continues to tolerate it without evidence of recurrence. We recommended continuing eliquis while on treatment given risk of VTE and current PE. Plan: -Continue Lynparza 100 mg twice daily. -Monthly CBC/CMP/CA125. -Imaging every 6 months--scheduled for CTs at [facility] in September. Office visit in 6 months. -Follow-up with PCP for management of blood pressure and other healthcare needs. (C91.10) CLL (chronic lymphocytic leukemia) (HCC) Assessment: -Incidentally diagnosed with CLL when establishing medical care for need for cataract surgery. -Counts overall stable. Plan: -Routine monitoring as above. (J90) Pleural effusion Assessment: -Thoracentesis 07/02/2022. -Cytology showed rare atypical cells. -No exam evidence of recurrence. Plan: -Monitor by exam and imaging as above. 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 -Allows continued therapy. Plan: -Monitor. (I27.82) Other chronic pulmonary embolism without acute cor pulmonale (HCC) Assessment: -Diagnosed on CT at [facility] 08/2023. -Tolerating apixaban well with no unusual bleeding Bruising. -CBC reviewed. Platelet count normal. Allows continued therapy. Plan: -Continue apixaban 5 mg twice daily. Portions of this documentation were copied and pasted from my previous office visit note dated 02/17/2024 in order to provide a cohesive continuity of the history. The note has been reviewed and edited and updated as necessary. I spent a total of 20 minutes on the date of the service which included preparing to see the patient, [id number] patient care, completing clinical documentation, performing a medically appropriate examination, counseling and educating the patient/family/caregiver, communicating with other HCPs (not separately reported), and communicating results to the patient/family/caregiver. Ruddy Patricio DO documented in this encounterC[facility] Evaluation note* Diagnosis Onset Date Resolution Status Admit Date Essential hypertension acute Ap ril 2024 2:32pm Groin discomfort acute July 092024 2:32pm Right inguinal hernia acute Apr 2024 2:32pm CKD (chronic kidney disease) chronic July 09, 2024 2:32pm CLL (chronic lymphocytic leukemia) chronic July 09, 2024 2:32pm [employer] Work Phone: 1(343) 360-523604-10-2025 Evaluation note* Diagnosis Onset Date Resolution Status Admit Date Essential hypertension acute Ap ril 2024 2:32pm Groin discomfort acute July 092024 2:32pm Right inguinal hernia acute Apr 2024 2:32pm CKD (chronic kidney disease) chronic July 09, 2024 2:32pm CLL (chronic lymphocytic leukemia) chronic July 09, 2024 2:32pm Acute sinusitis acute September 10:41am [facility] [employer] Work Phone: 1(902) 887-342102-17-2025 Telephone encounter Note* Telephone Encounter - Gloria Barreto LPN - 05/18/2024 1:22 PM EST Patient aware of all information. All medication instructions reviewed. Gloria Barreto LPN [facility]02-17-2025 Miscellaneous Notes* Telephone Encounter - Gloria Barreto LPN - 05/18/2024 1:22 PM EST Patient aware of all information. All medication instructions reviewed. Gloria Barreto LPN * Telephone Encounter - Gloria Barreto LPN - 05/18/2024 1:06 PM EST Left message for patient to contact office. Gloria Barreto LPN * Telephone Encounter - Ruddy Patricio DO - 05/18/2024 12:56 PM EST Can let her know the urine test and the ultrasound showed no particular reason as to why serum creatinine elevated. Could be from Lynparza or episodes of low blood pressure and/or dehydration. Encourage adequate hydration, take blood pressure every morning and hold lisinopril (she is on very low-dose) if systolic blood pressure under 120. Follow-up lab work as scheduled. Ruddy Patricio DO documented in this encounterCleveland [facility]02-[facility]-2025 Telephone encounter Note * Telephone Encounter - Gloria Barreto LPN - 05/18/2024 1:06 PM EST Left message for patient to contact office. Gloria Barreto LPN [facility]02-17-2025 Telephone encounter Note* Telephone Encounter - Ruddy Patricio DO - 05/18/2024 12:56 PM EST Can let her know the urine test and the ultrasound showed no particular reason as to why serum creatinine elevated. Could be from Lynparza or episodes of low blood pressure and/or dehydration. Encourage adequate hydration, take blood pressure every morning and hold lisinopril (she is on very low-dose) if systolic blood pressure under 120. Follow-up lab work as scheduled. Ruddy Patricio DO [facility]02-13-2025 History of Present illness Narrative* Ave Mccarty RDMS - 05/14/2024 1:45 PM EST Radiology Service Progress Note PATIENT NAME: Ashley Alcantar DATE OF SERVICE: May 14, 2024 TIME: 2:23 PM PATIENT IDENTITY VERIFICATION COMPLETED USING TWO (2) IDENTIFIERS: Name and Date of confirmedby patient verbally. FALL SCREENING: Has the patient had 2 falls in the last year or 1 fall with injury or currently using an Ambulatory Assistive Device (Walker, Cane, Wheelchair, Crutches, etc.)? No PATIENT GENDER DATA: Assigned female at . status: : No status:NO. PATIENT RELEVANT IMPLANT DATA REVIEWED: Not Applicable PATIENT PRESENTS WITH AN IMPLANTABLE OR ATTACHED RURAL ELECTRIFICATION ENGINEER: No RADIOLOGY DEPARTMENT: Ultrasound PERIPHERAL IV DATA: Not applicable SIGNED BY: Ave Mccarty RDMS RVT May 14, 2024 2:23 PM documented in this encounterCleveland Clinic [facility]02-13-2025 Note[facility]02-12-[facility] Telephone encounter Note* Telephone Encounter - Sherine Martinez LPN - 05/13/2024 11:54 AM EST Pt notified of results, reviewed labs. Pt voices understanding Sherine Martinez LPN [facility]02-12-2025 Miscellaneous Notes* Telephone Encounter - Sherine Martinez LPN - 05/13/2024 11:54 AM EST Pt notified of results, reviewed labs. Pt voices understanding Sherine Martinez LPN * Telephone Encounter - Gloria Barreto LPN - 05/13/2024 11:46 AM EST Left message for patient to contact office for questions. Gloria Barreto LPN * Telephone Encounter - Marisa Prieto - 05/13/2024 8:48 AM EST Ultrasound scheduled Patient has questions regarding results * Telephone Encounter - Hayley Jeronimo LPN - 05/12/2024 4:58 PM EST Message left on voicemail to check her my chart concerning recent lab results. Hayley Jeronimo LPN * Telephone Encounter - Ruddy Patricio DO - 05/12/2024 4:41 PM EST Her kidney function has been gradually getting worse the last few times it has been checked. Pleasehave her provide urine sample and get ultrasound of kidney and bladder. Avoid NSAIDs. Tylenol okay to take for pain if needed. Ruddy Patricio DO documented in this encounterC[facility]02-12-2025 Telephone encounter Note * Telephone Encounter - Gloria Barreto LPN - 05/13/2024 11:46 AM EST Left message for patient to contact office for questions. Gloria Barreto LPN [facility]02-12-2025 Telephone encounter Note* Telephone Encounter - Marisa Prieto - 05/13/2024 8:48 AM EST Ultrasound scheduled Patient has questions regarding results [facility] Work Phone: 1(220) 891-584402-11-2025 Telephone encounter Note* Telephone Encounter - Hayley Jeronimo LPN - 05/12/2024 4:58 PM EST Message left on voicemail to check her my chart concerning recent lab results. Hayley Jeronimo LPN [facility]02-11-2025 Telephone encounter Note* Telephone Encounter - Ruddy Patricio DO - 05/12/2024 4:41 PM EST Her kidney function has been gradually getting worse the last few times it has been checked. Pleasehave her provide urine sample and get ultrasound of kidney and bladder. Avoid NSAIDs. Tylenol okay to take for pain if needed. Ruddy Patricio DO [facility]02-10-2025 Note[facility]02-10-2025 History of Present illness Narrative* Franklyn Coronel APRN.STORE LOSS PREVENTION MANAGER - 05/11/2024 11:50 AM EST Chief Complaint Patient presents with: Established Patient HPI: Ashley Alcantar is a 83 year old female who presents here today for follow up uterine carcinosarcoma. Per Dr. Patricio's previous note: H/o hypertension and aortic stenosis. She had a CBC on 06/05/2021 as part of work-up for cataract surgery. She was incidentally found to have a white count of 25,900. Hemoglobin was 11.7 g/dL and the platelet count was 229,000. Differential significant for an absolute lymphocyte count of 20,850. Flow cytometry in mid May identified 2 populations of CD5 positive, CD23 positive monoclonal B cells. 1 representing 98% was lambda light chain restricted and the other 2% was kappa light chain restricted. Chemistry panel revealed a normal total bilirubin, AST, ALT and alkaline phosphatase. Total protein, albumin and globulin levels were normal. Serum creatinine was 1.0 mg/dL. Serum calcium was 9.2 mg/dL. As of initial visit: She has no complaints today. She is active. 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 She lives independently and is capable of all ADLs and IADLs. She has noticed some increase inshortness of breath over the last several weeks. She is scheduled to see a plastic die maker apprentice in August history of aortic stenosis. She has not had any unusual bleeding or unexplained bruising. 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 Didn't feel much different. She was seen by her PCP on 04/04/2022 with complaints of change in bowel habits associated with pain and pressure in the lower abdomen. She was referred to general surgery. On exam she was observed to have a right inguinal hernia most noticeable when she stood upright. It was easily reducible. In themedial right groin she had a somewhat mobile 1/2 cm subcutaneous nodule that was not reducible. Limited ultrasound suggested was a cystic lesion with some internal debris. Unclear whether it extendedsubfascially. An abdominal pelvic CT scan on 04/04/2022 revealed a low-density mass anterior to the uterus that measured 7.2 x 7.9 x 6.3 cm potentially representing a large exophytic fibroid. There was free fluid observed in the upper abdomen and pelvis. Small bilateral inguinal hernias were also noted slightly larger on the right with fluid extending into the hernia sacs. Multiple varices were observed in the pelvis potentially representing pelvic congestion syndrome. Pelvic ultrasound 04/05 demonstrated a large pedunculated fibroid in the left adnexa with moderate ascites. There was no definitive evidence for an ovarian mass however the ovaries were not visualized due to bowel gas producing artifact. Patient was evaluated by Dr. Borden at [facility]. Radiographic imaging was obtained. CT chest 04/25 demonstrated upper abdominal ascites with scarring at the lung apices more prominent on the right. There were small bilateral axillary lymph nodes and mild scarring of the lung apicesmost prominent on the right. Patient underwent diagnostic laparoscopy, peritoneal biopsies and drainage of ascites on 05/16/2022 at [facility] by Dr. Ary Borden. 4 L of ascites was aspirated during the procedure. 3 of which were submitted for cytology. A friable mass was identified in the pelvis adherent to the sigmoid colon and this was easily biopsied as it was quite friable. Frozen section of the mass demonstrated poorly differentiated carcinoma. Pathology: A and B. 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 Mismatch repair (MMR) interpretation: Proficient (microsatellite stable) Results Mismatch Repair Protein Immunohistochemistry Results: MLH1: Normal/Intact Nuclear Expression PMS2: Normal/Intact Nuclear Expression MSH2: Normal/Intact Nuclear Expression MSH6: Normal/Intact Nuclear Expression A - PELVIC FLUID. - ascities Atypical cells present. Patient had 1 visit to the [facility] ED on 05/20. Admitted to [facility] after saw PCP 05/24/2022. Patient had a right-sided thoracentesis ultrasound-guided on 05/24/2022. Approximately 1750 mL of blood-tinged fluid was drained. Cytology was negative for malignant cells. She underwent a second right sided ultrasound-guided thoracentesis on 05/28/2022. 2060 mL of blood-tinged fluid was drained. Cytology was not performed. An ultrasound of the abdomen on 05/29 did not identify a significant amount of ascites. Previous therapy: 1) Carboplatin and paclitaxel. Started cycle 1 on 06/06/2022. Competed 4 cycles. Had PleurX removed. Radical tumor reductive surgery including total abdominal hysterectomy and bilateral salpingo-oophorectomy, infracolic omentectomy, small bowel oversew, and bilateral inguinal herniorrhaphy on 09/19/22. Pathology: A: Ovary and fallopian tube, left: OVARY, CARCINOSARCOMA WITH HETEROLOGOUS ELEMENTS. (SEE SYNOPTIC AND COMMENT) FALLOPIAN TUBE, HIGH GRADE CARCINOMA IN A BACKGROUND OF FIBROSIS AND THERAPY RELATED CHANGES. B: Ovary and fallopian tube, right: Ovary, no tumor present. Fallopian tube, no tumor present. C: Uterus and cervix: Uterine cervix, no tumor present. Inactive endometrium. Adenomyosis. Uterine leiomyomata. Adenomyoma. Uterine serosa, dense fibrous adhesions. D: Left inguinal hernia sac: Fibroadipose and fibrous tissue with mesothelial lining, consistent with hernia sac. No tumor present. E: Omentum: Fibroadipose tissue with scattered chronic inflammation, no tumor present. The tumor shows extensive therapy related changes. The tumors a bi-phasic appearance, with portionsof tumor consistent with a high grade carcinoma component with foci of a sarcomatous component. Immunohistochemical stains are performed and show the tumor cells to be positive for MOC31, cytokeratin7, PAX- 8, WT-1, p53 (aberrant, cytoplasmic), ER (rare, weak) and LA (10%, moderate). Areas of spindled cells are positive for desmin, while negative for caldesmon, myogenin, myoD1, lopez-cytokeratin and cytokeratin 7. The sarcomatous component is predominantly a high grade spindled sarcoma, with focal heterologous component of cartilaginous differentiation; focally, rhabdoid features are seen but are not entirely supported by immunohistochemical stains. The findings are consistent with a carcinosarcoma with heterologous elements. Addendum 1 This addendum is issued to report findings of immunohistochemical studies performed at the request of the treating clinician. Immunohistochemistry for DNA mismatch repair proteins was performed using formalin-fixed, paraffin-embedded sections of the tumor. Both tumor cell nuclei and stromal cells have positive expression ofMLH1, MSH2, MSH6, and PMS2. Carcinomas with intact positive IHC expression of mismatch repair proteins are typically sporadic/microsatellite stable in nature. However, a subset of MSI- high carcinomas is associated with intact positive expression of mismatch repair proteins. Consider referral to genetic counseling if there is family history suggestive of a hereditary cancer syndrome She made a very nice recovery from surgery. She received Taxol at 175 mg meter squared on day 1 with cycle 5. For about a week she had malaise,loss of appetite, abdominal pain and diarrhea. Received 3 further cycles of carboplatin and Taxol following surgery. Last 2 cycles Taxol was dose to 80 mg meter squared weekly on days 1 and 8. Current therapy: 1) Olaparib. Was started on olaparib 200 mg twice daily secondary to renal function. Had worsening CKD with acute on chronic kidney disease while on that dose. Decreased to 100 mg BID. Underwent diagnostic laparotomy of abdomen, peritoneum and omentum JF--path in Care Everywhere. Was not made aware but she had a CT when she was at [facility] in August. Multiple pulmonary emboli.Started on apixaban. Found to have right inguinal hernia. She was told that as part of her debulking surgery she had a dirty repair of the hernia previously. Tolerating apixaban well with no unusual bleeding or unexplained bruising. No new concerns today. Appetite:Good. Wt. stable. Energy level:I'm ok if I keep moving. Works at [employer]-3-4 days/week. Denies fevers. Mouth:denies sores Resp:denies cough or sob Cardiac:denies chest pain/palpitations GI:denies abd pain, n/v, moving bowels regularly :denies dysuria/hematuria Extrem:denies new pain Endo:denies hot flashes Neuro:denies symptoms of neuropathy, L trigger finger 4th finger Skin:denies rashes Heme:denies bleeding, on eliquis The ROS is otherwise negative. Past medical history, appointments, medications, allergies reviewed. No changes. EXAM: BP 122/75 Pulse 91 Temp 36.3 C (97.4 F) (Temporal) Wt 59.2 kg (130 lb 8.2 oz) SpO2 93% BMI 27.40 kg/m APPEARANCE Well appearing, alert, in no acute distress, well-hydrated, well nourished. HEART RRR with normal S1 and S2, no murmurs LUNG clear to auscultation LYMPH NODES No cervical lymphadenopathy, No supraclavicular lymphadenopathy, and No axillary lymphadenopathy. ABDOMEN bowel sounds normoactive, soft, non-tender, non-distended EXTREMITIES No edema NEURO Awake, alert and oriented x 3, Normal gait, and No involuntary motions. SKIN Skin color, texture, turgor normal, no suspicious rashes or lesions LABS: Latest Ref Rng 02/17/2024 04/17/2024 05/11/2024 WBC 3.70 - 11.00 k/uL 16.31 (H) 16.48 (H) 18.16 (H) (P) RBC 3.90 - 5.20 m/uL 3.86 (L) 3.87 (L) 3.93 (P) Hemoglobin 11.5 - 15.5 g/dL 12.4 12.6 12.6 (P) Hematocrit 36.0 - 46.0 % 38.0 37.9 38.6 (P) MCV 80.0 - 100.0 fL 98.4 97.9 98.2 (P) MCH 26.0 - 34.0 pg 32.1 32.6 32.1 (P) MCHC 30.5 - 36.0 g/dL 32.6 33.2 32.6 (P) RDW-CV 11.5 - 15.0 % 14.5 14.2 14.5 (P) Platelet Count 150 - 400 k/uL 154 172 157 (P) MPV 9.0 - 12.7 fL 10.4 9.8 10.3 (P) NRBC /100 WBC 0.0 0.0 Absolute nRBC <0.01 k/uL <0.01 <0.01 Neut% % 24.0 13.0 Abs Neut (ANC) 1.45 - 7.50 k/uL 3.91 2.14 Lymph% % 72.0 82.0 Abs Lymph 1.00 - 4.00 k/uL 11.74 (H) 13.51 (H) [place]% % 3.0 4.0 Abs [place] <0.87 k/uL 0.49 0.66 Eosin% % 1.0 1.0 Abs Eosin <0.46 k/uL 0.16 0.16 Baso% % 0.0 0.0 Abs Baso <0.11 k/uL 0.00 0.00 Platelet Estimate Adequate Adequate Red Cell Morph Reviewed: see results of individual morphologies Reviewed: see results of individualmorphologies Ovalocytes Few Few DTYPE Manual Manual CMP/CA125: Pending ASSESSMENT/PLAN: 1. 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 CLL (chronic lymphocytic leukemia) (HCC) - ICD9: 204.10, ICD10: C91.10 4. Chemotherapy-induced neuropathy (HCC) - ICD9: 357.6, E933.1, ICD10: G62.0, T45.1X5A - Overall tolerating lynparza well. - Reviewed CBC/imaging with pt. - CMP/CA125 pending. - Multiple questions answered. - Continue eliquis-no bleeding issues. - Continue lynparza at current dose. - Follow up with Dr. Patricio in 3 months with CBC/CMP/CA125. - Pt. aware to call office with any questions/concerns. The patient indicates understanding of these issues and agrees with the plan. All documentation from previous visit of 02/17/24-Dr. Patricio was copied and pasted, documentation has been reviewed and edited as necessary for today's visit. Franklyn oCronel APRN.JOSE documented in this encounterCleveland Clinic [facility]01-29-2025 Telephone encounter Note * Telephone Encounter - Sherine Martinez LPN - 04/29/2024 8:44 AM EST Pt notified of results and voices understanding. Sherine Martinez LPN [facility]01-29-2025 Miscellaneous Notes* Telephone Encounter - Sherine Martinez LPN - 04/29/2024 8:44 AM EST Pt notified of results and voices understanding. Sherine Martinez LPN * Telephone Encounter - Ruddy Patricio DO - 04/28/2024 6:02 PM EST Can let her know the ultrasound showed fatty liver without evidence of cirrhosis. Ruddy Patricio DO documented in this encounterC[facility] Telephone encounter Note * Telephone Encounter - Ruddy Patricio DO - 04/28/2024 6:02 PM EST Can let her know the ultrasound showed fatty liver without evidence of cirrhosis. Ruddy Patricio DO [facility]01-27-2025 History of Present illness Narrative* Mirian Banuelos RDMS - 04/27/2024 10:45 AM EST Radiology Service Progress Note PATIENT NAME: Ashley Alcantar DATE OF SERVICE: April 27, 2024 TIME: 3:08 PM PATIENT IDENTITY VERIFICATION COMPLETED USING TWO (2) IDENTIFIERS: Name and Date of confirmedby patient verbally. FALL SCREENING: Has the patient had 2 falls in the last year or 1 fall with injury or currently using an Ambulatory Assistive Device (Walker, Cane, Wheelchair, Crutches, etc.)? No PATIENT GENDER DATA: Assigned female at . status: : No status:NO. PATIENT RELEVANT IMPLANT DATA REVIEWED: Not Applicable PATIENT PRESENTS WITH AN IMPLANTABLE OR ATTACHED RURAL ELECTRIFICATION ENGINEER: No RADIOLOGY DEPARTMENT: Ultrasound PERIPHERAL IV DATA: Not applicable SIGNED BY: Mirian Banuelos RDMS April 27, 2024 3:08 PM documented in this encounterC[facility]01-27-[facility]25 [facility] Telephone encounter Note* Telephone Encounter - Tiffany To LISW - 04/24/2024 11:12 AM EST SOCIAL WORK FOLLOW UP NOTE: [facility] Date of service: April 24, 2024 Fax received this date that pt has been approved for free Lynparza through 03/31/2025. Fax states pt's meds will be sipped to her in 3-5 business days. Fax sent to internal scanning, no other needs identified. Company info: [employer] P: [phone] SILAS Hagan-S [facility]01-24-2025 Miscellaneous Notes* Telephone Encounter - Tiffany To LISW - 04/24/2024 11:12 AM EST SOCIAL WORK FOLLOW UP NOTE: [facility]ER CENTER Date of service: April 24, 2024 Fax received this date that pt has been approved for free Lynparza through 03/31/2025. Fax states pt's meds will be sipped to her in 3-5 business days. Fax sent to internal scanning, no other needs identified. Company info: [employer] P: [phone] SILAS Hagan-S documented in this encounterC[facility]01-23-[facility]25 Telephone encounter Note * Telephone Encounter - Marisa Prieto - 04/23/2024 10:07 AM EST Patient scheduled [facility] Work Phone: [phone] 442-149601-23-2025 Miscellaneous Notes* Telephone Encounter - Marisa Prieto - 04/23/2024 10:07 AM EST Patient scheduled * Telephone Encounter - Marisa Prieto - 04/23/2024 9:53 AM EST 1st attempt. Message left for patient to schedule Ultrasound. * Telephone Encounter - Gloria Barreto LPN - 04/23/2024 9:10 AM EST PSS- please contact patient to schedule US liver. She is aware of all information. Gloria Barreto LPN * Telephone Encounter - Gloria Barreto LPN - 04/23/2024 8:42 AM EST Left message for patient to contact office. Gloria Barreto LPN * Telephone Encounter - Ruddy Patricio DO - 04/23/2024 8:27 AM EST Can let her know the CT scan showed no evidence of cancer. The radiologist commented that the livermay appear cirrhotic. CT scan is a very unreliable way of assessing if so please schedule for ultrasound as filed under this encounter. Ruddy Patricio DO documented in this encounterC[facility]01-23-2025 [facility]01[facility] Telephone encounter Note* Telephone Encounter - Marisa Prieto - 04/23/2024 9:53 AM EST 1st attempt. Message left for patient to schedule Ultrasound. [facility]01-23-[facility]25 Telephone encounter Note* Telephone Encounter - Gloria Barreto LPN - 04/23/2024 9:10 AM EST PSS- please contact patient to schedule US liver. She is aware of all information. Gloria Barreto LPN [facility]01-23-2025 Telephone encounter Note* Telephone Encounter - Gloria Barreto LPN - 04/23/2024 8:42 AM EST Left message for patient to contact office. Gloria Barreto LPN [facility]01-23-2025 Telephone encounter Note* Telephone Encounter - Ruddy Patricio DO - 04/23/2024 8:27 AM EST Can let her know the CT scan showed no evidence of cancer. The radiologist commented that the livermay appear cirrhotic. CT scan is a very unreliable way of assessing if so please schedule for ultrasound as filed under this encounter. Ruddy Patricio DO [facility]01-17-2025 History of Present illness Narrative* Reef Rosa Sheridan, (R) - 04/17/2024 10:20 AM EST Radiology Service Progress Note DATE OF SERVICE: April 17, 2024 TIME: 12:46 PM PATIENT IDENTITY VERIFICATION COMPLETED USING TWO (2) STANDARD IDENTIFIERS: Name and Date of confirmed by patient verbally. FALL SCREENING: Has the patient had 2 falls in the last year or 1 fall with injury or currently using an Ambulatory Assistive Device (Walker, Cane, Wheelchair, Crutches, etc.)? No PATIENT GENDER DATA: Assigned female at . status: : No status:NO. PATIENT RELEVANT IMPLANT DATA REVIEWED: Yes PATIENT PRESENTS WITH AN IMPLANTABLE OR ATTACHED RURAL ELECTRIFICATION ENGINEER: No ALLERGIES: Reviewed and unchanged CONTRAST ALLERGY: NO. EXAM: CT -CONTRAST INDUCED NEPHROPATHY RISK FACTORS: Patient age > 60 years CREATININE: Creatinine Date Value Ref Range Status 04/17/2024 1.22 (H) 0.58 - 0.96 mg/dL Final 02/17/2024 1.33 (H) 0.58 - 0.96 mg/dL Final 01/20/2024 1.34 (H) 0.58 - 0.96 mg/dL Final Estimated Glomerular Filtration Rate Date Value Ref Range Status 04/17/2024 44 (L) >=60 mL/min/1.73m Final Comment: Estimated Glomerular Filtration Rate (eGFR) is calculated using the 2020 CKD-EPI creatinine equation. This equation utilizes serum creatinine, sex, and age as parameters. The creatinine assay has traceable calibration to isotope dilution- mass spectrometry. Refer to KDIGO guidelines for clinical interpretation. In patients with unstable renal function, e.g. those with acute kidney injury, the eGFRmay not accurately reflect actual GFR. P.O.C.T. RESULTS: POC done: Yes, See Lab Tab April 17, 2024 TREATMENT: N/A PERIPHERAL IV DATA: Ambulatory: A peripheral IV was started in the Left antecubital site with a Angio cath: 22 gauge. RADIOLOGY DEPARTMENT: CT; Exam(s) Completed: Chest Abdomen Pelvis SIGNATURE: RT Rito(R) PATIENT NAME: Ashley Alcantar DATE: April 17, 2024 TIME: 12:46 PM documented in this encounterCleveland Clinic [facility]01-17-2025 [facility]01-13-2025 Telephone encounter Note* Telephone Encounter - Amina Cadena - 04/13/2024 9:33 AM EST Patient called back and has been scheduled for this week Saturday04/17/24 @ 9:20 am arrival for lab work and CT Scans. Patient confirmed this date and these times. Amina Rodriges [facility]01-13-2025 Miscellaneous Notes* Telephone Encounter - Amina Cadena - 04/13/2024 9:33 AM EST Patient called back and has been scheduled for this week Saturday04/17/24 @ 9:20 am arrival for lab work and CT Scans. Patient confirmed this date and these times. Amina Rodriges * Telephone Encounter - Amina Cadena - 04/13/2024 9:07 AM EST I called and left a message for Ashley to call us back to schedule the CT scans and labwork sometime soon(This month), as she is schedule next month for the next monthly lab work with the follow-up visit Please see below for scheduling Amina Parisi Pss * Telephone Encounter - Sherine Martinez LPN - 04/13/2024 8:40 AM EST Orders pended. PSS please schedule monthly labs and CT as able with pt's availability. * Telephone Encounter - Ruddy Patricio DO - 04/10/2024 4:53 PM EST Schedule her for monthly CBC/CMP/CA125. Go ahead and pend orders for CT chest, abdomen pelvis with IV contrast. As scheduled otherwise. Ruddy Patricio DO * Telephone Encounter - Sherine Martinez LPN - 04/10/2024 11:31 AM EST Pt calls and states she was told by Dr Dex Hale at [facility] that she should be getting a monthly lab draw while on [facility] and she was to get a CT scan in March. Last note here with Dr Patricio states monthly CBC/CMP. Pt has not had labs scheduled since January and next lab draw scheduled for May with OV. Note from August at [facility] states: We discussed options for follow-up include coming here every [address] scans and follow-up, versus having scans (CT chest/abdomen/pelvis with contrast) every 6 months and letting our team know if there are any concerns for progression/recurrence, or a combination of follow- ups here and at home. Plan: Tentatively placed follow-up orders for 1-year CT / Labs here, may reassess pending patient preference I will have the PSR's reach out to her to get Monthly CBC/CMP labs scheduled. CT? documented in this encounterCleveland Clinic [facility]01-13-2025 Telephone encounter Note * Telephone Encounter - Amina Cadena - 04/13/2024 9:07 AM EST I called and left a message for Ashley to call us back to schedule the CT scans and labwork sometime soon(This month), as she is schedule next month for the next monthly lab work with the follow-up visit Please see below for scheduling Amina Parisi Pss [facility]01-13-2025 Telephone encounter Note* Telephone Encounter - Sherine Martinez LPN - 04/13/2024 8:40 AM EST Orders pended. PSS please schedule monthly labs and CT as able with pt's availability. [facility]01-10-2025 Telephone encounter Note* Telephone Encounter - Ruddy Patricio DO - 04/10/2024 4:53 PM EST Schedule her for monthly CBC/CMP/CA125. Go ahead and pend orders for CT chest, abdomen pelvis with IV contrast. As scheduled otherwise. Ruddy Patricio DO [facility]01-10-2025 Telephone encounter Note* Telephone Encounter - Sherine Martinez LPN - 04/10/2024 11:31 AM EST Pt calls and states she was told by Dr Dex Hale at [facility] that she should be getting a monthly lab draw while on lynparza and she was to get a CT scan in March. Last note here with Dr Patricio states monthly CBC/CMP. Pt has not had labs scheduled since January and next lab draw scheduled for May with OV. Note from August at [facility] states: We discussed options for follow-up include coming here every [address] and follow-up, versus having scans (CT chest/abdomen/pelvis with contrast) every 6 months and letting our team know if there are any concerns for progression/recurrence, or a combination of follow- ups here and at home. Plan: Tentatively placed follow-up orders for 1-year CT / Labs here, may reassess pending patient preference I will have the PSR's reach out to her to get Monthly CBC/CMP labs scheduled. CT? [facility]12-10-2024 [facility]12-10-2024 History of Present illness Narrative* Tiffany To LISW - 03/10/2024 11:41 AM EST SOCIAL WORK FOLLOW UP NOTE: [facility]CER CENTER Date of service: March 09, 2024 SW met with pt this date and reviewed re-enrollment forms she received from [employer] for 2024 renewal of Mary assistance. SW completed application with pt and obtained her signature. SW reviewedwith physician and obtained his signature as well. SW also printed 3 [employer] closures and faxed along with this application today. Forms sent to internal scanning. No other needs identified at this time, pt reports she is doing very well. SILAS Hagan-Neelam documented in this encounterCleveland Clinic [facility]11-18-2024 [facility]11-18-2024 History of Present illness Narrative* Ruddy Patricio DO - 02/17/2024 8:52 AM EST Oncologic problem(s): 1) Uterine carcinosarcoma. 2) CLL. HPI: The patient is an 83-year-old female has a past medical history significant for hypertension and aortic stenosis. She had a CBC on 06/05/2021 as part of work-up for cataract surgery. She was incidentally found to have a white count of 25,900. Hemoglobin was 11.7 g/dL and the platelet count was 229,000. Differential significant for an absolute lymphocyte count of 20,850. Flow cytometry in mid May identified 2 populations of CD5 positive, CD23 positive monoclonal B cells. 1 representing 98% was lambda light chain restricted and the other 2% was kappa light chain restricted. Chemistry panel revealed a normal total bilirubin, AST, ALT and alkaline phosphatase. Total protein, albumin and globulin levels were normal. Serum creatinine was 1.0 mg/dL. Serum calcium was 9.2 mg/dL. As of initial visit: She has no complaints today. She is active. 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 She lives independently and is capable of all ADLs and IADLs. She has noticed some increase inshortness of breath over the last several weeks. She is scheduled to see a plastic die maker apprentice in [place] history of aortic stenosis. She has not had any unusual bleeding or unexplained bruising. 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 Didn't feel much different. She was seen by her PCP on 04/04/2022 with complaints of change in bowel habits associated with pain and pressure in the lower abdomen. She was referred to general surgery. On exam she was observed to have a right inguinal hernia most noticeable when she stood upright. It was easily reducible. In themedial right groin she had a somewhat mobile 1/2 cm subcutaneous nodule that was not reducible. Limited ultrasound suggested was a cystic lesion with some internal debris. Unclear whether it extendedsubfascially. An abdominal pelvic CT scan on 04/04/2022 revealed a low-density mass anterior to the uterus that measured 7.2 x 7.9 x 6.3 cm potentially representing a large exophytic fibroid. There was free fluid observed in the upper abdomen and pelvis. Small bilateral inguinal hernias were also noted slightly larger on the right with fluid extending into the hernia sacs. Multiple varices were observed in the pelvis potentially representing pelvic congestion syndrome. Pelvic ultrasound 04/05 demonstrated a large pedunculated fibroid in the left adnexa with moderate ascites. There was no definitive evidence for an ovarian mass however the ovaries were not visualized due to bowel gas producing artifact. Patient was evaluated by Dr. Borden at [facility]. Radiographic imaging was obtained. CT chest 04/25 demonstrated upper abdominal ascites with scarring at the lung apices more prominent on the right. There were small bilateral axillary lymph nodes and mild scarring of the lung apicesmost prominent on the right. Patient underwent diagnostic laparoscopy, peritoneal biopsies and drainage of ascites on 05/16/2022 at [facility] by Dr. Ary Borden. 4 L of ascites was aspirated during the procedure. 3 of which were submitted for cytology. A friable mass was identified in the pelvis adherent to the sigmoid colon and this was easily biopsied as it was quite friable. Frozen section of the mass demonstrated poorly differentiated carcinoma. Pathology: A and B. 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 Mismatch repair (MMR) interpretation: Proficient (microsatellite stable) Results Mismatch Repair Protein Immunohistochemistry Results: MLH1: Normal/Intact Nuclear Expression PMS2: Normal/Intact Nuclear Expression MSH2: Normal/Intact Nuclear Expression MSH6: Normal/Intact Nuclear Expression A - PELVIC FLUID. - ascities Atypical cells present. Patient had 1 visit to the [facility] ED on 05/20. Admitted to [facility] after saw PCP 05/24/2022. Patient had a right-sided thoracentesis ultrasound-guided on 05/24/2022. Approximately 1750 mL of blood-tinged fluid was drained. Cytology was negative for malignant cells. She underwent a second right sided ultrasound-guided thoracentesis on 05/28/2022. 2060 mL of blood-tinged fluid was drained. Cytology was not performed. An ultrasound of the abdomen on 05/29 did not identify a significant amount of ascites. Previous therapy: 1) Carboplatin and paclitaxel. Started cycle 1 on 06/06/2022. Competed 4 cycles. Had PleurX removed. Radical tumor reductive surgery including total abdominal hysterectomy and bilateral salpingo-oophorectomy, infracolic omentectomy, small bowel oversew, and bilateral inguinal herniorrhaphy on 09/19/22. Pathology: A: Ovary and fallopian tube, left: OVARY, CARCINOSARCOMA WITH HETEROLOGOUS ELEMENTS. (SEE SYNOPTIC AND COMMENT) FALLOPIAN TUBE, HIGH GRADE CARCINOMA IN A BACKGROUND OF FIBROSIS AND THERAPY RELATED CHANGES. B: Ovary and fallopian tube, right: Ovary, no tumor present. Fallopian tube, no tumor present. C: Uterus and cervix: Uterine cervix, no tumor present. Inactive endometrium. Adenomyosis. Uterine leiomyomata. Adenomyoma. Uterine serosa, dense fibrous adhesions. D: Left inguinal hernia sac: Fibroadipose and fibrous tissue with mesothelial lining, consistent with hernia sac. No tumor present. E: Omentum: Fibroadipose tissue with scattered chronic inflammation, no tumor present. The tumor shows extensive therapy related changes. The tumors a bi-phasic appearance, with portionsof tumor consistent with a high grade carcinoma component with foci of a sarcomatous component. Immunohistochemical stains are performed and show the tumor cells to be positive for MOC31, cytokeratin7, PAX- 8, WT-1, p53 (aberrant, cytoplasmic), ER (rare, weak) and LA (10%, moderate). Areas of spindled cells are positive for desmin, while negative for caldesmon, myogenin, myoD1, lopez-cytokeratin and cytokeratin 7. The sarcomatous component is predominantly a high grade spindled sarcoma, with focal heterologous component of cartilaginous differentiation; focally, rhabdoid features are seen but are not entirely supported by immunohistochemical stains. The findings are consistent with a carcinosarcoma with heterologous elements. Addendum 1 This addendum is issued to report findings of immunohistochemical studies performed at the request of the treating clinician. Immunohistochemistry for DNA mismatch repair proteins was performed using formalin-fixed, paraffin-embedded sections of the tumor. Both tumor cell nuclei and stromal cells have positive expression ofMLH1, MSH2, MSH6, and PMS2. Carcinomas with intact positive IHC expression of mismatch repair proteins are typically sporadic/microsatellite stable in nature. However, a subset of MSI- high carcinomas is associated with intact positive expression of mismatch repair proteins. Consider referral to genetic counseling if there is family history suggestive of a hereditary cancer syndrome She made a very nice recovery from surgery. She received Taxol at 175 mg meter squared on day 1 with cycle 5. For about a week she had malaise,loss of appetite, abdominal pain and diarrhea. Received 3 further cycles of carboplatin and Taxol following surgery. Last 2 cycles Taxol was dose to 80 mg meter squared weekly on days 1 and 8. Current therapy: 1) Olaparib. Was started on olaparib 200 mg twice daily secondary to renal function. Had worsening CKD with acute on chronic kidney disease while on that dose. Decreased to 100 mg BID. Underwent diagnostic laparotomy of abdomen, peritoneum and omentum JF--path in Care Everywhere. Presents for ongoing oncologic management. Interim history: I was not made aware but she had a CT when she was at [facility] in August. Multiple pulmonary emboli. Started on apixaban. Found to have right inguinal hernia. She was told that as part of her debulking surgery she had a dirty repair of the hernia previously. Tolerating apixaban well with no unusual bleeding or unexplained bruising. Good appetite. Too good. No nausea. No reflux. Occasional RUQ pain. Lifting can trigger it. Occasional sharp pain off and on right groin. Started several months ago. Had hernia repair at [facility] summer 2022. Pain relieved when stands. Bowels moving regularly. Still has transient symptoms of numbness in the hands and feet. Still working at [employer] up to 25 to 30 hours a week. PMH, medications and allergies personally reviewed by me today. Any changes documented in appropriate section. ROS: Constitutional: Denies episodes of fever and night sweats. Neuro: Denies VELEZ, vertigo, dizziness and imbalance. HEENT: No recent change in voice, vision or hearing. Resp: See HPI. CVS: Denies exertional chest pain, PND, orthopnea. GI: See HPI. : Denies dysuria or gross hematuria. Endo: Denies hot flashes. Denies polyuria and polydipsia. Denies heat and cold intolerance. Musculoskeletal: Denies bone, back, joint and muscular pain. Derm: Denies rash. Denies jaundice and diffuse pruritis. Heme: Denies unusual bleeding and unexplained bruising. Psych: Normal mood. PHYSICAL EXAM: Vitals:Blood pressure 131/80, pulse (!) 54, temperature 36.4 C (97.6 F), temperature source Temporal, weight 59.6 kg (131 lb 8 oz), SpO2 98%. Well-appearing and in no acute distress. EYES: Sclerae are anicteric bilaterally. LYMPHATIC: There is no palpable cervical or supraclavicular adenopathy. RESPIRATORY: Clear inspiratory vesicular sounds throughout. CARDIOVASCULAR: Rhythm is regular. ABDOMEN: The abdomen is nondistended. No organomegaly. No tenderness. No fluid wave. SKIN: No jaundice. 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 -Underwent exploratory laparotomy 01/09/2023. Multiple biopsies all negative for disease. -No concerning symptoms or exam findings today. -CA125 remains in normal range. Plan: -Continue Lynparza 100 mg twice daily. -Monthly CBC/CMP. -Continue monitoring CA125 every 3 months. -Imaging as indicated clinically or biochemically. -Follow-up with PCP for management of blood pressure and other healthcare needs. (C91.10) CLL (chronic lymphocytic leukemia) (HCC) Assessment: -Incidentally diagnosed with CLL when establishing medical care for need for cataract surgery. She was also diagnosed with aortic stenosis. -Counts overall stable. Plan: -Routine monitoring as above. (J90) Pleural effusion Assessment: -Thoracentesis 07/02/2022. -Cytology showed rare atypical cells. -No exam evidence of recurrence. Plan: -Monitor by exam. 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 -Allows continued therapy. Plan: -Monitor. (I27.82) Other chronic pulmonary embolism without acute cor pulmonale (HCC) Assessment: -Diagnosed on CT at [facility] 08/2023. -Tolerating apixaban well with no unusual bleeding Bruising. -CBC reviewed. Platelet count normal. Allows continued therapy. Plan: Continue apixaban 5 mg twice daily. Portions of this documentation were copied and pasted from previous office visit notes in order to provide a cohesive continuity of the history. The note has been reviewed and edited and updated as necessary. I spent a total of 20 minutes on the date of the service which included preparing to see the patient, [id number] patient care, completing clinical documentation, obtaining and/or reviewing separately obtained history, performing a medically appropriate examination, counseling and educating the pat ient/family/caregiver, ordering medications, tests, or procedures, communicating with other HCPs (not separately reported), and communicating results to the patient/family/caregiver. Ruddy Patricio DO documented in this encounterCleveland Clinic [facility]09-30-2024 Telephone encounter Note * Telephone Encounter - Gloria Barreto LPN - 12/30/2023 11:44 AM EDT Left message for Giovanna to check NextDigest messages. Gloria Barreto LPN [facility]09-30-2024 Miscellaneous Notes* Telephone Encounter - Gloria Barreto LPN - 12/30/2023 11:44 AM EDT Left message for Giovanna to check [employer] messages. Gloria Barreto LPN * Telephone Encounter - Ruddy Patricio DO - 12/25/2023 2:40 PM EDT The following approved medication requests have been transmitted electronically. Requested Prescriptions Signed Prescriptions Disp Refills olaparib (LYNPARZA) 100 mg tablet 60 tablet 5 Sig: Take 1 tablet (100 mg) by mouth two times a day. Authorizing Provider: RUDDY PATRICIO DO * Telephone Encounter - Gloria Barreto LPN - 12/25/2023 1:31 PM EDT Patient has been enrolled to receive free Lynparza through the [employer] ([employer]) Program with approval dates 02/18/2023 through 03/31/2024. Please send Rx. Gloria Barreto LPN * Telephone Encounter - Marisa Prieto - 12/25/2023 1:10 PM EDT Patient called stating Dr. Patricio was going to speak with nurse about her chemo pill. She doesn't know the name of it, however, states it is very expensive. She has a few left and wasn't sure if someone was working on this for her. Please advise [facility] Telephone encounter Note * Telephone Encounter - Ruddy Patricio DO - 12/25/2023 2:40 PM EDT The following approved medication requests have been transmitted electronically. Requested Prescriptions Signed Prescriptions Disp Refills olaparib (LYNPARZA) 100 mg tablet 60 tablet 5 Sig: Take 1 tablet (100 mg) by mouth two times a day. Authorizing Provider: RUDDY PATRICIO DO [facility]09-25-[facility]24 Telephone encounter Note* Telephone Encounter - Gloria Barreto LPN - 12/25/2023 1:31 PM EDT Patient has been enrolled to receive free Lynparza through the [employer] ([employer]) Program with approval dates 02/18/2023 through 03/31/2024. Please send Rx. Gloria Barreto LPN [facility]09-25-[facility] Telephone encounter Note* Telephone Encounter - Marisa Prieto - 12/25/2023 1:10 PM EDT Patient called stating Dr. Patricio was going to speak with nurse about her chemo pill. She doesn't know the name of it, however, states it is very expensive. She has a few left and wasn't sure if someone was working on this for her. 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 HPI: The patient is an 83-year-old female has a past medical history significant for hypertension and aortic stenosis. She had a CBC on 06/05/2021 as part of work-up for cataract surgery. She was incidentally found to have a white count of 25,900. Hemoglobin was 11.7 g/dL and the platelet count was 229,000. Differential significant for an absolute lymphocyte count of 20,850. Flow cytometry in mid May identified 2 populations of CD5 positive, CD23 positive monoclonal B cells. 1 representing 98% was lambda light chain restricted and the other 2% was kappa light chain restricted. Chemistry panel revealed a normal total bilirubin, AST, ALT and alkaline phosphatase. Total protein, albumin and globulin levels were normal. Serum creatinine was 1.0 mg/dL. Serum calcium was 9.2 mg/dL. As of initial visit: She has no complaints today. She is active. 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 She lives independently and is capable of all ADLs and IADLs. She has noticed some increase inshortness of breath over the last several weeks. She is scheduled to see a plastic die maker apprentice in [place] history of aortic stenosis. She has not had any unusual bleeding or unexplained bruising. 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 Didn't feel much different. She was seen by her PCP on 04/04/2022 with complaints of change in bowel habits associated with pain and pressure in the lower abdomen. She was referred to general surgery. On exam she was observed to have a right inguinal hernia most noticeable when she stood upright. It was easily reducible. In themedial right groin she had a somewhat mobile 1/2 cm subcutaneous nodule that was not reducible. Limited ultrasound suggested was a cystic lesion with some internal debris. Unclear whether it extendedsubfascially. An abdominal pelvic CT scan on 04/04/2022 revealed a low-density mass anterior to the uterus that measured 7.2 x 7.9 x 6.3 cm potentially representing a large exophytic fibroid. There was free fluid observed in the upper abdomen and pelvis. Small bilateral inguinal hernias were also noted slightly larger on the right with fluid extending into the hernia sacs. Multiple varices were observed in the pelvis potentially representing pelvic congestion syndrome. Pelvic ultrasound 04/05 demonstrated a large pedunculated fibroid in the left adnexa with moderate ascites. There was no definitive evidence for an ovarian mass however the ovaries were not visualized due to bowel gas producing artifact. Patient was evaluated by Dr. Borden at [facility]. Radiographic imaging was obtained. CT chest 04/25 demonstrated upper abdominal ascites with scarring at the lung apices more prominent on the right. There were small bilateral axillary lymph nodes and mild scarring of the lung apicesmost prominent on the right. Patient underwent diagnostic laparoscopy, peritoneal biopsies and drainage of ascites on 05/16/2022 at [facility] by Dr. Ary Borden. 4 L of ascites was aspirated during the procedure. 3 of which were submitted for cytology. A friable mass was identified in the pelvis adherent to the sigmoid colon and this was easily biopsied as it was quite friable. Frozen section of the mass demonstrated poorly differentiated carcinoma. Pathology: A and B. 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 Mismatch repair (MMR) interpretation: Proficient (microsatellite stable) Results Mismatch Repair Protein Immunohistochemistry Results: MLH1: Normal/Intact Nuclear Expression PMS2: Normal/Intact Nuclear Expression MSH2: Normal/Intact Nuclear Expression MSH6: Normal/Intact Nuclear Expression A - PELVIC FLUID. - ascities Atypical cells present. Patient had 1 visit to the [facility] ED on 05/20. Admitted to [facility] after saw PCP 05/24/2022. Patient had a right-sided thoracentesis ultrasound-guided on 05/24/2022. Approximately 1750 mL of blood-tinged fluid was drained. Cytology was negative for malignant cells. She underwent a second right sided ultrasound-guided thoracentesis on 05/28/2022. 2060 mL of blood-tinged fluid was drained. Cytology was not performed. An ultrasound of the abdomen on 05/29 did not identify a significant amount of ascites. Previous therapy: 1) Carboplatin and paclitaxel. Started cycle 1 on 06/06/2022. Competed 4 cycles. Had PleurX removed. Radical tumor reductive surgery including total abdominal hysterectomy and bilateral salpingo-oophorectomy, infracolic omentectomy, small bowel oversew, and bilateral inguinal herniorrhaphy on 09/19/22. Pathology: A: Ovary and fallopian tube, left: OVARY, CARCINOSARCOMA WITH HETEROLOGOUS ELEMENTS. (SEE SYNOPTIC AND COMMENT) FALLOPIAN TUBE, HIGH GRADE CARCINOMA IN A BACKGROUND OF FIBROSIS AND THERAPY RELATED CHANGES. B: Ovary and fallopian tube, right: Ovary, no tumor present. Fallopian tube, no tumor present. C: Uterus and cervix: Uterine cervix, no tumor present. Inactive endometrium. Adenomyosis. Uterine leiomyomata. Adenomyoma. Uterine serosa, dense fibrous adhesions. D: Left inguinal hernia sac: Fibroadipose and fibrous tissue with mesothelial lining, consistent with hernia sac. No tumor present. E: Omentum: Fibroadipose tissue with scattered chronic inflammation, no tumor present. The tumor shows extensive therapy related changes. The tumors a bi-phasic appearance, with portionsof tumor consistent with a high grade carcinoma component with foci of a sarcomatous component. Immunohistochemical stains are performed and show the tumor cells to be positive for MOC31, cytokeratin7, PAX- 8, WT-1, p53 (aberrant, cytoplasmic), ER (rare, weak) and LA (10%, moderate). Areas of spindled cells are positive for desmin, while negative for caldesmon, myogenin, myoD1, lopez-cytokeratin and cytokeratin 7. The sarcomatous component is predominantly a high grade spindled sarcoma, with focal heterologous component of cartilaginous differentiation; focally, rhabdoid features are seen but are not entirely supported by immunohistochemical stains. The findings are consistent with a carcinosarcoma with heterologous elements. Addendum 1 This addendum is issued to report findings of immunohistochemical studies performed at the request of the treating clinician. Immunohistochemistry for DNA mismatch repair proteins was performed using formalin-fixed, paraffin-embedded sections of the tumor. Both tumor cell nuclei and stromal cells have positive expression ofMLH1, MSH2, MSH6, and PMS2. Carcinomas with intact positive IHC expression of mismatch repair proteins are typically sporadic/microsatellite stable in nature. However, a subset of MSI- high carcinomas is associated with intact positive expression of mismatch repair proteins. Consider referral to genetic counseling if there is family history suggestive of a hereditary cancer syndrome She made a very nice recovery from surgery. She received Taxol at 175 mg meter squared on day 1 with cycle 5. For about a week she had malaise,loss of appetite, abdominal pain and diarrhea. Received 3 further cycles of carboplatin and Taxol following surgery. Last 2 cycles Taxol was dose to 80 mg meter squared weekly on days 1 and 8. Current therapy: 1) Olaparib. Was started on olaparib 200 mg twice daily secondary to renal function. Had worsening CKD with acute on chronic kidney disease while on that dose. Decreased to 100 mg BID. Underwent diagnostic laparotomy of abdomen, peritoneum and omentum JF--path in Care Everywhere. Presents for ongoing oncologic management. Interim history: Only complaint is the tendinitis and tenosynovitis of her right arm. She is under the care of her PCP and orthopedic surgery for this. Good appetite. No nausea. No abdominal pain. Bowels moving regularly. Still some symptoms of numbness in the hands and feet but this is fleeting in nature and is not a constant symptom. Tolerating Lynparza well without any subjective side effect. Still working [place] [employer] up to 25 to 30 hours a week. She is now allowed to have a water bottlewith her. PMH, medications and allergies personally reviewed by me today. Any changes documented in appropriate section. ROS: Constitutional: Denies episodes of fever and night sweats. Neuro: Denies VELEZ, vertigo, dizziness and imbalance. HEENT: No recent change in voice, vision or hearing. Resp: See HPI. CVS: Denies exertional chest pain, PND, orthopnea. GI: See HPI. : Denies dysuria or gross hematuria. Endo: Denies hot flashes. Denies polyuria and polydipsia. Denies heat and cold intolerance. Musculoskeletal: Denies bone, back, joint and muscular pain. Derm: Denies rash. Denies jaundice and diffuse pruritis. Heme: Denies unusual bleeding and unexplained bruising. Psych: Normal mood. PHYSICAL EXAM: Vitals:Blood pressure 126/72, pulse (!) 53, temperature 36.3 C (97.3 F), temperature source Temporal, weight 57.8 kg (127 lb 8 oz), SpO2 99%. Well-appearing and in no acute distress. EYES: Sclerae are anicteric bilaterally. LYMPHATIC: There is no palpable cervical or supraclavicular adenopathy. RESPIRATORY: Clear inspiratory vesicular sounds throughout. CARDIOVASCULAR: Rhythm is regular. ABDOMEN: The abdomen is nondistended. No organomegaly. No tenderness. No fluid wave. SKIN: No jaundice. 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 -Underwent exploratory laparotomy 01/09/2023. Multiple biopsies all negative for disease. -No concerning symptoms or exam findings today. -CA125 has remained in normal range. -Reviewed recent labs. Plan: -Continue Lynparza 100 mg twice daily. -Monthly CBC/CMP.. -Continue monitoring CA125 every 3 months. -Imaging as indicated clinically or biochemically. -Follow-up with PCP for management of blood pressure and other healthcare needs. (C91.10) CLL (chronic lymphocytic leukemia) (HCC) Assessment: -Incidentally diagnosed with CLL when establishing medical care for need for cataract surgery. She was also diagnosed with aortic stenosis. -Counts overall stable. Plan: -Routine monitoring as above. Portions of this documentation were copied and pasted from previous office visit notes in order to provide a cohesive continuity of the history. The note has been reviewed and edited and updated as necessary. I spent a total of 15 minutes on the date of the service which included preparing to see the patient, [id number] patient care, completing clinical documentation, obtaining and/or reviewing separately obtained history, performing a medically appropriate examination, counseling and educating the pat ient/family/caregiver, ordering medications, tests, or procedures, communicating with other HCPs (not separately reported), and communicating results to the patient/family/caregiver. Ruddy Patricio DO documented in this encounterC[facility]07-[facility] Telephone encounter Note * Telephone Encounter - Maegan Murguia RN - 10/01/2023 3:50 PM EDT Daughter informed that Dr. Patricio is out of the office until 10/14/23. Daughter is going to contact prescribing doctor or PCP for a refill. Maegan Murguia RN [facility]07-02-2024 Miscellaneous Notes* Telephone Encounter - Maegan Murguia RN - 10/01/2023 3:50 PM EDT Daughter informed that Dr. Patricio is out of the office until 10/14/23. Daughter is going to contact prescribing doctor or PCP for a refill. Maegan Murguia RN * Telephone Encounter - Marisa Prieto - 10/01/2023 3:25 PM EDT Patient called stating she was prescribed a blood thinner for clots by a provider in [place]. She states Dr. Patricio is aware of this and told her to continue taking as prescribed. She states she has 3 days left and is asking if she should get a refill or stop taking all together documented in this encounterC[facility]07[facility] Telephone encounter Note * Telephone Encounter - Marisa Prieto - 10/01/2023 3:25 PM EDT Patient called stating she was prescribed a blood thinner for clots by a provider in [place]. She states Dr. Patricio is aware of this and told her to continue taking as prescribed. She states she has 3 days left and is asking if she should get a refill or stop taking all together [facility] Work Phone: [phone]) 308-494206-26-2024 Telephone encounter Note* Telephone Encounter - Vicky Langston MA - 09/25/2023 1:55 PM EDT Patient stopped by the office. She did not have any forms that needed to be filled out. The paperwork she had was for her record. They were asking for a letter with supporting documentation for the reason that she was off. This information was faxed to Jenn Newman at [phone]. Confirmation received. [facility]06-26-2024 Miscellaneous Notes* Telephone Encounter - Vicky Langston MA - 09/25/2023 1:55 PM EDT Patient stopped by the office. She did not have any forms that needed to be filled out. The paperwork she had was for her record. They were asking for a letter with supporting documentation for the reason that she was off. [facility] at [phone]. Confirmation received. * Telephone Encounter - Amarilis Garduno PA-C - 09/24/2023 2:25 PM EDT Fine with her being off work. 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 Patient states that she will be bringing a form into the office. Madeline Chan RN documented in this encounterC[facility]06-[facility] Telephone encounter Note * Telephone Encounter - Amarilis Garduno PA-C - 09/24/2023 2:25 PM EDT Fine with her being off work. 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 [facility]06-[facility] Telephone encounter Note* Telephone Encounter - Madeline Chan RN - 09/24/2023 12:40 PM EDT Patient calling asking if she can have a form filled out to be off of work for a couple more weeks.States that she works at [employer] and is concerned about returning to work right away stating that her tendonitis is just starting to feel better. Patient states that she will be bringing a form into the office. Madeline Chan RN [facility]06-10-20[facility] Telephone encounter Note* Telephone Encounter - Hayley Jeronimo LPN - 09/09/2023 8:56 AM EDT spoke with pt. , informed Dr. Patricio did not need to see her. Keep upcoming appts. For labs. Pt. Voiced understanding. Hayley Jeronimo LPN [facility]06-10-2024 Miscellaneous Notes* Telephone Encounter - Hayley Jeronimo LPN - 09/09/2023 8:56 AM EDT spoke with pt. , informed Dr. Patricio did not need to see her. Keep upcoming appts. For labs. Pt. Voiced understanding. Hayley Jeronimo LPN * Telephone Encounter - Ruddy Patricio DO - 09/06/2023 5:15 PM EDT I do not necessarily have to see her for an office visit for this. She should continue Eliquis as prescribed. We have her scheduled for routine follow-up blood work. Ruddy Patricio DO * Telephone Encounter - Vera Shi - 09/06/2023 1:44 PM EDT Patients daughter stopped by and said that pt just had scans done at [facility] where they found blood clots on her lungs and started her on Eliquis on 09/03. Patient is wondering if would like to see her for an office visit. I scanned in the report her daughter brought into her chart. Vera Webb documented in this encounterC[facility]06-[facility] Telephone encounter Note * Telephone Encounter - Ruddy Patricio DO - 09/06/2023 5:15 PM EDT I do not necessarily have to see her for an office visit for this. She should continue Eliquis as prescribed. We have her scheduled for routine follow-up blood work. Ruddy Patricio DO [facility]06-07-[facility] History of Present illness Narrative* Amarilis Garduno PA-C - 09/06/2023 1:53 PM EDT Amairlis Garduno PA-C Department of Orthopaedics Orthopaedics [address] [place] [id number] Dept: [phone] Dept September 06, 2023 CHIEF COMPLAINT: New and Pain of the Right Wrist Ms. Ashley Alcantar is a 83 year old female who presents with multiple complaints, first she has pain and swelling along the radial aspect of her wrist which has been bothering her for the past several months. She also has some swelling and discomfort in the right index finger. She complains that one of the fingers on her right hand occasionally locks up, she cannot recall which finger it is. She also complains of some numbness and tingling in both hands. She is very active, works at [id number]. She also enjoys gardening. She lives alone. She is unable to tolerate oral NSAIDs asshe has chronic kidney disease, she is also anticoagulated following an aortic valve replacement. She has uterine cancer and receives chemotherapy. She tried some braces that she obtained [id number], they are uncomfortable and put pressure on the knuckles. [id number]. ASSESSMENT: M79.641 Pain of right hand (primary encounter diagnosis) M77.8 Tendonitis of wrist, right PLAN: She certainly seems to have some first dorsal compartment tendinitis. We discussed trying an oral steroid taper and getting her into a more appropriate brace. I suspect that the remainder of the swelling in her hands is due to arthritis. Will get an x-ray for further evaluation. If tendinitisdoes not resolve we can certainly have her back and try a corticosteroid injection. I suggested trying some pmfq-wtg-[id number] topical Voltaren. Once we get her wrist tendinitis seldom we could always order an EMG, though I suspect that the numbness and tingling in her hands may be related to her chemotherapy treatments. Ms. Ashley Alcantar was advised as to contrast therapies and/or to take analgesics/anti-inflammatoriesas needed and all contraindications were reviewed. OBJECTIVE: Ms. Ashley Alcantar is a pleasant 83 year old in no apparent distress. Gen:There were no vitals taken for this visit. nl development, non obese, no deformities ENT: Normocephalic, normal hearing, moist mucosa CV: Pulses:Radial= 2+ and symmetric, capillary refill < 2 secs, no peripheral edema/varicosities Skin: no rash, bruising or lesions. Good turgor. Psych: cooperative and appropriate, alert and oriented x 3, good mood and affect. Musculoskeletal: Right wrist with moderate edema over the first dorsal compartment, tenderness palpation over the first dorsal compartment. Patient is nontender at the basal joint, grind testing does not elicit pain.There is arthritic changes throughout the knuckles, most notably at the index finger metacarpal phalangeal joint. Patient is able to form a loose composite fist and extend all digits without any locking or catching, there is no palpable discomfort, locking or catching in any of the A1 mary sites on any of the digits on the right hand. Subjective numbness in all the digits on the right hand. Imaging: Ordered today Supporting Subjective Information Below: Past Surgical History: PAST SURGICAL HISTORY Procedure Laterality Date ANESTH, SECTION 11/19/1970 PARACENTESIS x2 PERCUTANEOUS AORTIC VALVE REPLACEMENT 11/2021 REMV CATARACT EXTRACAP,INSERT LENS Right 06/20/2021 REMV CATARACT EXTRACAP,INSERT LENS Left 07/11/2021 TONSILLECTOMY & ADENOIDECTOMY <AGE 11 age 28 TOOTH EXTRACTION 11/01/2021 Medications: Current Outpatient Medications Medication Sig apixaban (ELIQUIS) 5 mg (74 tabs) Take 1 tablet by mouth two times a day. ZINC ORAL Take 1 tablet by mouth once daily. Magnesium 200 mg tab Take 1 tablet by mouth once daily. L.acidophilus-L.rhamnosus (PROBIOTIC) 15 billion cell capsule Take 1 capsule by mouth once daily. olaparib (LYNPARZA) 100 mg tablet Take 2 tablets (200 mg) by mouth two times a day. levothyroxine (SYNTHROID) 25 mcg tablet Take 50 mcg by mouth DAILY (6 AM). cyanocobalamin, vitamin B-12, (VITAMIN B-12 ORAL) Take 1 tablet by mouth once daily. ferrous sulfate 325 mg (65 mg iron) tablet Take 1 tablet by mouth every other day. predniSONE (DELTASONE) 10 mg tablet 6 tabs po day 1, then 5 tabs day 2, 4 tabs day 3, 3 tabs day 4,2 tabs day 5, 1 tab day 6. lisinopril (ZESTRIL) 5 mg tablet Take 1 tablet by mouth once daily. dexAMETHasone (DECADRON) 4 mg tablet Take 2 tablets 12 and 6 hours prior to chemotherapy treatment.(Patient not taking: Reported on 04/23/2023) iv contrast (will be provided with radiology test) CT Chest ABD/PEL-Inject, intravenously, once for1 dose.No IV access, insert saline lock prior to the beginning of sedation, infusion, injection of imaging exam. Discontinue saline lock post exam. If Pt. has a central line or IVAD, may access for administration according to line specific nursing protocol. Once exam is complete flush line and de-access according to line specific nursing protocol in the CT contrast administration guidelines link. enteric contrast (will be provided with radiology test) For CT CHESTABD/PEL W IVCON Routine order Administer, As Directed One Time Only, via Oral, Rectal, both Oral and Rectal, Enteric Tube, Stoma orIndwelling Catheter, Enteric Contrast as designated per enteric contrast guidelines (Patient taking differently: For CT CHESTABD/PEL W IVCON Routine order Administer, As Directed One Time Only, via Oral, Rectal, both Oral and Rectal, Enteric Tube, Stoma or Indwelling Catheter, Enteric Contrast as designated per enteric contrast guidelines) ondansetron orally disintegrating (ZOFRAN ODT) 4 mg disintegrating tablet Take 4 mg by mouth as needed. (Patient not taking: Reported on 04/23/2023) prochlorperazine (COMPAZINE) 10 mg tablet Take 1 tablet by mouth every 6 hours as needed. (Patient not taking: Reported on 04/23/2023) ondansetron (ZOFRAN) 8 mg tablet Take 1 tablet by mouth every 8 hours as needed for nausea/vomiting. (Patient not taking: Reported on 04/23/2023) acetaminophen (TYLENOL EXTRA STRENGTH) 500 mg tablet Take 2 tablets by mouth every 6 hours. senna-docusate (SENNA WITH DOCUSATE SODIUM) 8.6-50 mg per tablet Take 1-2 tablets by mouth once daily. May increase or decrease as needed to have one soft bowel movement daily (Patient not taking: Reported on 04/23/2023) furosemide (LASIX) 20 mg tablet Take 20 mg by mouth as needed. (Patient not taking: Reported on 08/23/2023) vit C/E/cuperic/zinc/lutein (EYE MULTIVIT-LUTEIN,C-E-CU-ZN, ORAL) Take by mouth. (Patient not taking: Reported on 09/11/2022) aspirin 81 mg chewable tablet Take 1 tablet by mouth once daily. Current Facility-Administered Medications Medication Dose Route Frequency perflutren lipid microspheres 1.3 mL in NaCl (PF) 0.9% 10 mL injection (DEFINITY) INTRAVENOUS DIRECTED PRN sodium chloride 0.9 % (flush) 10 mL (BD POSIFLUSH) 10 mL INTRAVENOUS DIRECTED PRN sodium chloride 0.9 % (flush) 10 mL (BD POSIFLUSH) 10 mL INTRAVENOUS DIRECTED PRN Allergies: Keflex [Cephalexin] and Adhesive Tape-Silicones ROS: General (negative for fatigue, malaise, weight loss/gain) HEENT (negative for headache, earache, recent vision changes, sinus pain, sore throat) Respiratory (no recent shortness of breath, hemoptysis) CV (negative for chest tightness, palpitations) Musculoskeletal (see HPI) Psych (no depression, anxiety) This note was partially generated using [employer] voice recognition system, and there may be some incorrect words, spellings, and punctuation that were not noted in checking the note before saving. Amarilis Garduno PA-C * Vicky Langston MA - 09/06/2023 12:59 PM EDT AMB ROOMING INTAKE FLOWSHEET DATA Pain Pain Level: 8 Pain Location: Wrist-Right Description: Sharp Duration Amount of Time: 1 Duration Units: Months Frequency: Intermittent Intervention/Comfort measure: Cold Patient here today for right wrist pain that starts at her thumb and goes up to the elbow. She is right hand dominant. Works at [employer]. documented in this encounterC[facility] History of Present illness Narrative* Marisa Hall RT(R) - 09/06/2023 1:50 PM EDT Radiology Service Progress Note PATIENT NAME: Ashley Alcantar DATE OF SERVICE: September 06, 2023 TIME: 2:09 PM PATIENT IDENTITY VERIFICATION COMPLETED USING TWO (2) IDENTIFIERS: Name and Date of confirmedby patient verbally. FALL SCREENING: Has the patient had 2 falls in the last year or 1 fall with injury or currently using an Ambulatory Assistive Device (Walker, Cane, Wheelchair, Crutches, etc.)? No PATIENT GENDER DATA: Female. status: : No status: NO. PATIENT RELEVANT IMPLANT DATA REVIEWED: Not Applicable PATIENT PRESENTS WITH AN IMPLANTABLE OR ATTACHED RURAL ELECTRIFICATION ENGINEER: No RADIOLOGY DEPARTMENT: General X-ray: Exam(s) Completed: Upper Extremity X- Ray(s): Hand, right PERIPHERAL IV DATA: Not applicable SIGNED BY: RT Ivanna(R) September 06, 2023 2:09 PM documented in this encounterCleveland [facility]06-[facility] Telephone encounter Note * Telephone Encounter - Vera Shi - 09/06/2023 1:44 PM EDT Patients daughter stopped by and said that pt just had scans done at [facility] where they found blood clots on her lungs and started her on Eliquis on 09/03. Patient is wondering if would like to see her for an office visit. I scanned in the report her daughter brought into her chart. Vera Webb [facility]06-03-[facility]24 Telephone encounter Note* Telephone Encounter - Hayley Jeronimo LPN - 09/02/2023 2:54 PM EDT FYArnoldo pt. Wanted Dr. Patricio to be aware that this next week pt. Will be going to [facility] for her check up. Hayley Jeronimo LPN [facility]06-03-2024 Miscellaneous Notes* Telephone Encounter - Hayley Jeronimo LPN - 09/02/2023 2:54 PM EDT MINERV[place] pt. Wanted Dr. Patricio to be aware that this next week pt. Will be going to [facility] for her check up. Hayley Jeronimo LPN * Telephone Encounter - Hayley Jeronimo LPN - 09/02/2023 2:51 PM EDT Pt. Notified of kidney function results, recheck as scheduled. Pt. Voiced understanding. Hayley Jeronimo LPN * Telephone Encounter - Ruddy Patricio DO - 09/02/2023 2:31 PM EDT Kidney function stable. Recheck as scheduled. documented in this encounterC[facility]06-[facility] Telephone encounter Note * Telephone Encounter - Hayley Jeronimo LPN - 09/02/2023 2:51 PM EDT Pt. Notified of kidney function results, recheck as scheduled. Pt. Voiced understanding. Hayley Jeronimo LPN [facility]06-[facility] Telephone encounter Note* Telephone Encounter - Ruddy Patricio DO - 09/02/2023 2:31 PM EDT Kidney function stable. Recheck as scheduled. 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 HPI: The patient is an 82-year-old female has a past medical history significant for hypertension and aortic stenosis. She had a CBC on 06/05/2021 as part of work-up for cataract surgery. She was incidentally found to have a white count of 25,900. Hemoglobin was 11.7 g/dL and the platelet count was 229,000. Differential significant for an absolute lymphocyte count of 20,850. Flow cytometry in mid May identified 2 populations of CD5 positive, CD23 positive monoclonal B cells. 1 representing 98% was lambda light chain restricted and the other 2% was kappa light chain restricted. Chemistry panel revealed a normal total bilirubin, AST, ALT and alkaline phosphatase. Total protein, albumin and globulin levels were normal. Serum creatinine was 1.0 mg/dL. Serum calcium was 9.2 mg/dL. As of initial visit: She has no complaints today. She is active. 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 She lives independently and is capable of all ADLs and IADLs. She has noticed some increase inshortness of breath over the last several weeks. She is scheduled to see a plastic die maker apprentice in [place] history of aortic stenosis. She has not had any unusual bleeding or unexplained bruising. 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 Didn't feel much different. She was seen by her PCP on 04/04/2022 with complaints of change in bowel habits associated with pain and pressure in the lower abdomen. She was referred to general surgery. On exam she was observed to have a right inguinal hernia most noticeable when she stood upright. It was easily reducible. In themedial right groin she had a somewhat mobile 1/2 cm subcutaneous nodule that was not reducible. Limited ultrasound suggested was a cystic lesion with some internal debris. Unclear whether it extendedsubfascially. An abdominal pelvic CT scan on 04/04/2022 revealed a low-density mass anterior to the uterus that measured 7.2 x 7.9 x 6.3 cm potentially representing a large exophytic fibroid. There was free fluid observed in the upper abdomen and pelvis. Small bilateral inguinal hernias were also noted slightly larger on the right with fluid extending into the hernia sacs. Multiple varices were observed in the pelvis potentially representing pelvic congestion syndrome. Pelvic ultrasound 04/05 demonstrated a large pedunculated fibroid in the left adnexa with moderate ascites. There was no definitive evidence for an ovarian mass however the ovaries were not visualized due to bowel gas producing artifact. Patient was evaluated by Dr. Borden at [facility]. Radiographic imaging was obtained. CT chest 04/25 demonstrated upper abdominal ascites with scarring at the lung apices more prominent on the right. There were small bilateral axillary lymph nodes and mild scarring of the lung apicesmost prominent on the right. Patient underwent diagnostic laparoscopy, peritoneal biopsies and drainage of ascites on 05/16/2022 at [facility] by Dr. Ary Borden. 4 L of ascites was aspirated during the procedure. 3 of which were submitted for cytology. A friable mass was identified in the pelvis adherent to the sigmoid colon and this was easily biopsied as it was quite friable. Frozen section of the mass demonstrated poorly differentiated carcinoma. Pathology: A and B. 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 Mismatch repair (MMR) interpretation: Proficient (microsatellite stable) Results Mismatch Repair Protein Immunohistochemistry Results: MLH1: Normal/Intact Nuclear Expression PMS2: Normal/Intact Nuclear Expression MSH2: Normal/Intact Nuclear Expression MSH6: Normal/Intact Nuclear Expression A - PELVIC FLUID. - ascities Atypical cells present. Patient had 1 visit to the [facility] ED on 05/20. Admitted to [facility] after saw PCP 05/24/2022. Patient had a right-sided thoracentesis ultrasound-guided on 05/24/2022. Approximately 1750 mL of blood-tinged fluid was drained. Cytology was negative for malignant cells. She underwent a second right sided ultrasound-guided thoracentesis on 05/28/2022. 2060 mL of blood-tinged fluid was drained. Cytology was not performed. An ultrasound of the abdomen on 05/29 did not identify a significant amount of ascites. Previous therapy: 1) Carboplatin and paclitaxel. Started cycle 1 on 06/06/2022. Competed 4 cycles. Had PleurX removed. Radical tumor reductive surgery including total abdominal hysterectomy and bilateral salpingo-oophorectomy, infracolic omentectomy, small bowel oversew, and bilateral inguinal herniorrhaphy on 09/19/22. Pathology: A: Ovary and fallopian tube, left: OVARY, CARCINOSARCOMA WITH HETEROLOGOUS ELEMENTS. (SEE SYNOPTIC AND COMMENT) FALLOPIAN TUBE, HIGH GRADE CARCINOMA IN A BACKGROUND OF FIBROSIS AND THERAPY RELATED CHANGES. B: Ovary and fallopian tube, right: Ovary, no tumor present. Fallopian tube, no tumor present. C: Uterus and cervix: Uterine cervix, no tumor present. Inactive endometrium. Adenomyosis. Uterine leiomyomata. Adenomyoma. Uterine serosa, dense fibrous adhesions. D: Left inguinal hernia sac: Fibroadipose and fibrous tissue with mesothelial lining, consistent with hernia sac. No tumor present. E: Omentum: Fibroadipose tissue with scattered chronic inflammation, no tumor present. The tumor shows extensive therapy related changes. The tumors a bi-phasic appearance, with portionsof tumor consistent with a high grade carcinoma component with foci of a sarcomatous component. Immunohistochemical stains are performed and show the tumor cells to be positive for MOC31, cytokeratin7, PAX- 8, WT-1, p53 (aberrant, cytoplasmic), ER (rare, weak) and LA (10%, moderate). Areas of spindled cells are positive for desmin, while negative for caldesmon, myogenin, myoD1, lopez-cytokeratin and cytokeratin 7. The sarcomatous component is predominantly a high grade spindled sarcoma, with focal heterologous component of cartilaginous differentiation; focally, rhabdoid features are seen but are not entirely supported by immunohistochemical stains. The findings are consistent with a carcinosarcoma with heterologous elements. Addendum 1 This addendum is issued to report findings of immunohistochemical studies performed at the request of the treating clinician. Immunohistochemistry for DNA mismatch repair proteins was performed using formalin-fixed, paraffin-embedded sections of the tumor. Both tumor cell nuclei and stromal cells have positive expression ofMLH1, MSH2, MSH6, and PMS2. Carcinomas with intact positive IHC expression of mismatch repair proteins are typically sporadic/microsatellite stable in nature. However, a subset of MSI- high carcinomas is associated with intact positive expression of mismatch repair proteins. Consider referral to genetic counseling if there is family history suggestive of a hereditary cancer syndrome She made a very nice recovery from surgery. She received Taxol at 175 mg meter squared on day 1 with cycle 5. For about a week she had malaise,loss of appetite, abdominal pain and diarrhea. Received 3 further cycles of carboplatin and Taxol following surgery. Last 2 cycles Taxol was dose to 80 mg meter squared weekly on days 1 and 8. Current therapy: 1) Olaparib. Underwent diagnostic laparotomy of abdomen, peritoneum and omentum JF--path in Care Everywhere. Presents for ongoing oncologic management. Interim history: Was started on olaparib 200 mg twice daily secondary to renal function. Decreased to 100 mg BID. She was diagnosed with tendinitis and tenosynovitis of her right arm. Occasionally has some symptoms of numbness in the hands and feet but this is fleeting in nature and is not a constant symptom. Tolerating Lynparza well without any subjective side effect. Still working at [employer] up to 25 to 30 hours a week. She is not allowed to have a water bottlewith her, only allowed to drink when she is on break. PMH, medications and allergies personally reviewed by me today. Any changes documented in appropriate section. ROS: Constitutional: Denies episodes of fever and night sweats. Neuro: Denies VELEZ, vertigo, dizziness and imbalance. HEENT: No recent change in voice, vision or hearing. Resp: See HPI. CVS: Denies exertional chest pain, PND, orthopnea. GI: See HPI. : Denies dysuria or gross hematuria. Endo: Denies hot flashes. Denies polyuria and polydipsia. Denies heat and cold intolerance. Musculoskeletal: Denies bone, back, joint and muscular pain. Derm: Denies rash. Denies jaundice and diffuse pruritis. Heme: Denies unusual bleeding and unexplained bruising. Psych: Normal mood. PHYSICAL EXAM: Vitals: Blood pressure 103/59, pulse (!) 56, temperature 36.6 C (97.9 F), temperature source Temporal, weight 55.1 kg (121 lb 8 oz), SpO2 97%. Well-appearing and in no acute distress. EYES: Sclerae are anicteric bilaterally. LYMPHATIC: There is no palpable cervical or supraclavicular adenopathy. RESPIRATORY: Still has auscultatory findings of small effusion right base. Otherwise clear inspiratory vesicular sounds throughout. Contract tube underskin it is tender but there is no redness or induration. CARDIOVASCULAR: Rhythm is regular. ABDOMEN: The abdomen is nondistended. No organomegaly. No tenderness. No fluid wave. SKIN: No jaundice. LABS: Latest Ref Rn 08/21/2023 WBC 3.70 - 11.00 k/uL 19.38 (H) RBC 3.90 - 5.20 m/uL 3.94 Hemoglobin 11.5 - 15.5 g/dL 12.8 Hematocrit 36.0 - 46.0 % 39.9 MCV 80.0 - 100.0 fL 101.3 (H) MCH 26.0 - 34.0 pg 32.5 MCHC 30.5 - 36.0 g/dL 32.1 RDW-CV 11.5 - 15.0 % 13.8 Platelet Count 150 - 400 k/uL 163 MPV 9.0 - 12.7 fL 10.2 NRBC /100 WBC 0.0 Absolute nRBC <0.01 k/uL <0.01 Neut% % 15.0 Abs Neut (ANC) 1.45 - 7.50 k/uL 2.91 Lymph% % 81.0 Abs Lymph 1.00 - 4.00 k/uL 15.70 (H) [place]% % 3.0 Abs [place] <0.87 k/uL 0.58 Eosin% % 0.0 Abs Eosin <0.46 k/uL 0.00 Baso% % 1.0 Abs Baso <0.11 k/uL 0.19 (H) Platelet Estimate Adequate Red Cell Morph Reviewed: see results of individual morphologies Ovalocytes Few RBC Fragments None Seen Few ! 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 -Underwent exploratory laparotomy 01/09/2023. Multiple biopsies all negative for disease. -Olaparib started 200 mg twice daily due to chronic kidney disease. -No concerning symptoms or exam findings today. -CA125 has remained in normal range. -Had worsening CKD with acute on chronic kidney disease while on olaparib. -Reviewed recent labs. Serum creatinine increased. Mild hyperkalemia. She has been using [id number] mg pretty much on a consistent basis every day. Plan: -Note provided to her employer to allow her to have a water bottle with her so she can keep well-hydrated. -Every other week CBC/CMP for the time being. -Decrease lisinopril to 5 mg, but hold unless SBP >140 or DBP >90 -Continue monitoring CA125 every 3 months. -Imaging as indicated clinically or biochemically. (C91.10) CLL (chronic lymphocytic leukemia) ([facility]) Assessment: -Incidentally diagnosed with CLL when establishing medical care for need for cataract surgery. She was also diagnosed with aortic stenosis. -Some mild progression of lymphocytosis but no lymphadenopathy or symptoms otherwise. Plan: -Routine monitoring as above. Portions of this documentation were copied and pasted from previous office visit notes in order to provide a cohesive continuity of the history. The note has been reviewed and edited and updated as necessary. I spent a total of 20 minutes on the date of the service which included preparing to see the patient, [id number] patient care, completing clinical documentation, obtaining and/or reviewing separately obtained history, performing a medically appropriate examination, counseling and educating the pat ient/family/caregiver, ordering medications, tests, or procedures, communicating with other HCPs (not separately reported), and communicating results to the patient/family/caregiver. Ruddy Patricio DO documented in this encounterC[facility] Clinic [facility]04-30-[facility] Telephone encounter Note * Telephone Encounter - Maegan Murguia RN - 07/30/2023 8:35 AM EDT Daughter notified. Maegan Murguia RN [facility]04-30-[facility] Telephone encounter Note* Telephone Encounter - Maegan Murguia RN - 07/30/2023 8:35 AM EDT ----- Message from Ruddy Patricio DO sent at 07/29/2023 4:58 PM EDT ----- White blood cell count is elevated from the CLL. Other blood counts are doing well however. So no need for CLL treatment. CA125 remains within normal range which is good news. Follow-up as scheduled.When she is here for lab work repeat CBC/CMP/CA125. [facility]04-30-[facility] Miscellaneous Notes* Telephone Encounter - Maegan Murguia RN - 07/30/2023 8:35 AM EDT Daughter notified. Maegan Murguia RN * Telephone Encounter - Maegan Murguia RN - 07/30/2023 8:35 AM EDT ----- Message from Ruddy Patricio DO sent at 07/29/2023 4:58 PM EDT ----- White blood cell count is elevated from the CLL. Other blood counts are doing well however. So no need for CLL treatment. CA125 remains within normal range which is good news. Follow-up as scheduled.When she is here for lab work repeat CBC/CMP/CA125. documented in this encounterC[facility]04-25-[facility] Telephone encounter Note * Telephone Encounter - Vera Shi - 07/25/2023 4:53 PM EDT Patient called in and scheduled Thanks [facility]04-25-2024 Miscellaneous Notes* Telephone Encounter - Vera Shi - 07/25/2023 4:53 PM EDT Patient called in and scheduled Thanks * Telephone Encounter - Vera Shi - 07/24/2023 4:51 PM EDT Called and spoke with patients daughter Giovanna. She stated she will talk to patient about scheduling because patient is going to have scan/labs and follow up in [place] on July 30. She will call in to schedule monthly labs and 3 month ov. Vera Webb * Telephone Encounter - Ruddy Patricio DO - 07/24/2023 12:51 PM EDT Yes, needs to continue monthly CBC/CMP starting this week. Also add CA125 this week. She should be having an office visit at least every 3 months with me or [employer]--due now. Ruddy Patricio DO * Telephone Encounter - Gloria Barreto LPN - 07/24/2023 10:20 AM EDT Patient's daughter, Giovanna, calling office to see if patient should be getting monthly labs (CBC/CMP). Patient is on Lynparza and does not have any follow up scheduled here. How often does she need CA 125? Last OV 04/23/2023. Gloria Barreto LPN documented in this encounterCleveland Clinic [facility]04-[facility] Telephone encounter Note * Telephone Encounter - Vera Shi - 07/24/2023 4:51 PM EDT Called and spoke with patients daughter Giovanna. She stated she will talk to patient about scheduling because patient is going to have scan/labs and follow up in [place] on July 30. She will call in to schedule monthly labs and 3 month ov. Vera Webb [facility]04-24-[facility] Telephone encounter Note* Telephone Encounter - Ruddy Patricio DO - 07/24/2023 12:51 PM EDT Yes, needs to continue monthly CBC/CMP starting this week. Also add CA125 this week. She should be having an office visit at least every 3 months with me or [employer]--due now. Ruddy Patricio DO [facility]04-24-[facility] Telephone encounter Note* Telephone Encounter - Gloria Barreto LPN - 07/24/2023 10:20 AM EDT Patient's daughter, Giovanna, calling office to see if patient should be getting monthly labs (CBC/CMP). Patient is on Lynparza and does not have any follow up scheduled here. How often does she need CA 125? Last OV 04/23/2023. Gloria Barreto LPN [facility]02-19-[facility] Miscellaneous Notes* Telephone Encounter - Hayley Jeronimo LPN - 05/20/2023 3:38 PM EST ----- Message from Ruddy Patricio, sent at 05/20/2023 12:26 PM EST ----- Kidney function better. Continue Lynparza 100 mg BID. documented in this encounterCleveland Clinic [facility]02-13-2024 Miscellaneous Notes* Telephone Encounter - Hayley Jeronimo LPN - 05/14/2023 8:24 AM EST Lab appt. Scheduled for 05/20 Hayley Jeronimo LPN * Telephone Encounter - Gloria Barreto LPN - 05/13/2023 3:09 PM EST Patient's daughter notified and verbalized understanding. Daughter will have patient check her schedule and call back to schedule labs for next week. Gloria Barreto LPN * Telephone Encounter - Gloria Barreto LPN - 05/13/2023 8:33 AM EST Left message for patient's daughter, Giovanna, to contact office. Gloria Barreto LPN * Telephone Encounter - Gloria Barreto LPN - 05/13/2023 8:33 AM EST ----- Message from Ruddy Patricio DO sent at 05/10/2023 5:06 PM EST ----- Decrease Lynparza to 100 mg twice daily. Recheck CBC/CMP in a week. documented in this encounterCleveland Clinic [facility]12-[facility]-2023 Miscellaneous Notes* Telephone Encounter - Hayley Jeronimo LPN - 03/21/2023 9:57 AM EST Spoke with pt.encouraged her that she needed to drink more fluids. Hayley Jeronimo LPN * Telephone Encounter - Ruddy Patricio DO - 03/21/2023 9:49 AM EST Thank you. Just encourage plenty of liberal hydration. Recheck as scheduled. Ruddy Patricio DO * Telephone Encounter - Sherine Martinez LPN - 03/21/2023 8:31 AM EST Daughter denies Lasix use. Daughter states fluid intake and appetite have been normal. Sherine Matrinez LPN * Telephone Encounter - Hayley Jeronimo LPN - 03/21/2023 8:28 AM EST ----- Message from Ruddy Patricio DO sent at 03/20/2023 1:47 PM EST ----- Serum creatinine is increased a little bit. This may be from some mild dehydration. Has she been using Lasix lately? documented in [facility] encounterC[facility] Miscellaneous Notes* Telephone Encounter - Maegan Murguia RN - 03/12/2023 4:07 PM EST ORAL ANTI-CANCER AGENTS FOLLOW-UP PHONE CALL/VISIT Patient identified by name and date of . YES Patient is on cycle 1, week 2, day 8 of olaparib for Uterine carcinosarcoma SYMPTOM ASSESSMENT Headache: No Visual Changes: No Dizziness: No Do you have any periods of confusion? No Mood changes: No Mouth or throat pain: No Appetite: no changes in appetite, appetite good Taste changes: No Nausea: No Vomiting: No Heartburn: No. Weight gain/loss: No Episodes of palpitations/chest discomfort/pressure/pain No Shortness of breath: No Cough: No Diarrhea: yes, a couple episodes yesterday, took imodium which helped. Constipation: no Bladder/Urinary Changes: None Pain: No=0 (pain 0 on a scale of 0-10). Fever: No Chills: No Cold sensitivity: No Numbness/weakness: wake up in the middle of the night and her fingers are asleep. Resolves when I'm up and moving around. Started prior to olaparib. Patient instructed to follow-up with her PCP regarding this. Edema: No Skin changes: No Itching: No Yellowing of skin or eyes: No Musculoskeletal/joint changes/issues No Bleeding issues: No Activity Level: good Do you need to take naps? No Blood pressure: patient stated her BP has been higher than usual, in the 140's. Patient was instructed to contact her PCP with her BP readings for further guidance on managing. Does the patient need interventions or same day appointment:No ADDITIONAL FOLLOW UP: The next outreach call is due on: TBD and was scheduled patient instructed to call with any worsening symptoms The following lab tests are due: CBC/CMP 03/19/23 Verified patient is aware of next appointment in the cancer center: Yes. Verified patient verbalized how to correctly refill the oral agent prescription. Yes Does the patient have any financial difficulties affording this medication? No Patient verbalizes understanding of when to seek Medical Attention? YES Patient verbalizes understanding of after-hours and weekend phone number? YES Patient verbalized importance of medication compliance in taking the oral agent as prescribed. Patient instructed to call if unable to comply. Maegan Murguia RN * Telephone Encounter - Maegan Murguia RN - 03/12/2023 9:33 AM EST ORAL ANTI-CANCER AGENTS FOLLOW-UP PHONE CALL/VISIT Called patient, no answer, unable to leave a VM d/t VM box being full. Maegan Murguia RN documented in this encounterC[facility]12-07-[facility] Miscellaneous Notes* Telephone Encounter - Gely Rogel - 03/07/2023 4:56 PM EST Spoke with pt and scheduled as directed * Telephone Encounter - Gely Rogel - 03/05/2023 10:21 AM EST Spoke with pt's daughter as her number is listed as primary. Pt's daughter stated pt is at work andwould be best to schedule with. Pt's daughter also informed that the pt's VM may be full. That she would reach out to PT and have her contact us to schedule. * Telephone Encounter - Maegan Murguia RN - 03/04/2023 4:03 PM EST Patient started/will start taking Lynparza on March 05. CBC/CMP in 2 weeks then CBC/CMP/CA125 then OV in about 4-6 weeks after starting. Please contact patient to schedule lab appointments and OV. Patient also asked about getting COVID, RSV, pneumonia, and shingles vaccines. Patient informed shecan get these vaccines. Maegan Murguia RN * Telephone Encounter - Maegan Murguia RN - 03/04/2023 3:20 PM EST Called patient, no answer, unable to leave a VM d/t VM being full. Maegan Murguia RN * Telephone Encounter - Amina Cadena - 03/04/2023 2:13 PM EST Patient called back, Maegan was not available. Patient requested Maegan call back sometimes after 3:15 pm. Thank you, Amina Parisi Pss * Telephone Encounter - Maegan Murguia RN - 03/04/2023 10:04 AM EST [facility] Care Coordination FOLLOW-UP NOTE Care Coordination Plan: called patient, no answer, left a VM requesting a call back from patient. Maegan Murguia RN March 04, 2023 * Telephone Encounter - Maegan Murguia RN - 03/01/2023 5:04 PM EST Tried to call patient however there was an error message when dialed and the call was unable to connect. Will try again on Saturday. Maegan Murguia RN * Telephone Encounter - Ruddy Patricio DO - 03/01/2023 5:00 PM EST She can start Saturday. Agree with follow-up plan for lab work and OV as outlined below. Ruddy Patricio DO * Telephone Encounter - Maegan Murguia RN - 03/01/2023 4:45 PM EST Please advise when patient can start olaparib. CBC/CMP in 2 weeks then CBC/CMP/CA125 then OV in about 4-6 weeks after starting? Orders pended. Maegan Murguia RN * Telephone Encounter - Gely Rogel - 03/01/2023 4:39 PM EST Pt calling in stating that she got her Lynparza Pt is wondering what the next steps are Please contact and advise Thank you! documented in this encounterC[facility]11-21-2023 Miscellaneous Notes* Telephone Encounter - Hermes Moore RPh - 02/19/2023 4:54 PM EST Ashley Rhodes has been approved for free drug for Lynparza. Please sign this order to have order sent to appropriate pharmacy. Thank you Hermes Moore PharmD Clinical Pharmacist, Oncology [facility] P: ; F: Pool: P [facility] Pool #: [id number] documented in this encounterC[facility]11-13-2023 Miscellaneous Notes* Telephone Encounter - Maegan Murguia RN - 02/11/2023 11:07 AM EST [facility] Care Coordination FOLLOW-UP NOTE Patient identified by name and date of . YES Care Coordination Plan: patient informed of Dr. Patricio's response, stated understanding. Patient will call this nurse once she has a delivery date. Maegan Murguia RN February 11, 2023 * Telephone Encounter - Ruddy Patricio DO - 02/10/2023 4:54 PM EST The oncologist at [facility] recommended a lower starting dose which is what I prescribed. It should have no impact on her CLL at all. I would encourage her to try it because it may help her maintain remission significantly longer than if she does not take them. If she has significant side effects, we can either stop or dose reduce the drug. Ruddy Patricio DO * Telephone Encounter - Maegan Murguia RN - 02/08/2023 1:46 PM EST Spoke to patient to complete lynparza education. Patient stated she looked up the medication onlineand is concerned about starting this medication due to already being anemic, having CLL, etc. Patient is asking what her quality of life will be while on this medication and if the benefits outweigh the risks related to side effects. Patient stated she does not feel she had a good discussion with the doctor in [place] about the benefits to taking this medication. Do you want to set her up with an OV to discuss or this nurse can relay a message to her? Thank you. Maegan Murguia RN * Telephone Encounter - Maegan Murguia RN - 02/08/2023 1:25 PM EST ORAL ANTI-CANCER AGENTS EDUCATION patient called today for oral medication education of lynparza for Ovarian Cancer READINESS TO LEARN Cognitive Ability: Alert and oriented Motivation to Learn: Interested Family Support: Unable to assess - Family not present Instruction Provided to: Patient Patient learns best by: Multiple Methods Factors affecting learning: None Physical limitation affecting learning: None JOSEPH ASSESSMENT: 1.) Verified that patient knows that the oral agents are for cancer and are taken by mouth. Yes 2.) Medication review completed during visit. No 3.) Patient is able to swallow pills. Yes 4.) Patient is able to read the drug label/information. Yes 5.) Patient is able to open the medication bottles and packages. Yes 6.) Has patient taken other pills for cancer? No 7.) Is patient experiencing any symptoms that would affect their ability to keep down pills, for example nausea or vomiting? No 8.) Verified that patient understands prescription delivery, benefit investigation and refill process. Yes DRUG-SPECIFIC EDUCATION: 1.) Verified patient knows the drug name. Yes 2.) Verified patient understands the dose and schedule of oral anti cancer agent. Yes 3.) Verified patient knows what to do if a medication dose is missed. Yes 4.) Verified patient understands where to store the drug. Yes 5.) Verified patient understands potential side effects and how to manage them. Yes 6.)Verified patient understands handling precautions of oral anti cancer agent. Yes 7.) Verified patient was given written instructions and understands when and whom to call with questions. Yes 8.) Verified patient understands where and how to return drug. Yes 9.) Verified patient received drug specific adult education handout and neutropenic wallet card Yes EVALUATE: The patient demonstrated an understanding of all the above education using the teach-back method. Yes Instructed to call us with any questions, concerns, and/or unresolved symptoms. Will continue to follow up and provide reinforcement of teaching topics as needed. Maegan Murguia RN documented in this encounterC[facility]11-03-2023 Miscellaneous Notes* Telephone Encounter - Sherine Martinez LPN - 02/01/2023 9:08 AM EDT I requested records, I will scan them into her chart. Sherine Martinez LPN * Telephone Encounter - Maegan Murguia RN - 01/31/2023 3:47 PM EDT [facility] Care Coordination FOLLOW-UP NOTE Care Coordination Plan: called daughter, no answer, left a VM requesting a call back. Called and spoke to patient. Patient informed that an OV is not needed at this time. Dr. Patricio sent in a prescription for the lynparza; [facility] was [facility] to the [facility]. [facility] will start the prior authorization process and see if we are able to fill at our pharmacy. If we are able to fill the medication, [facility] will contact patient to discuss cost and set up a delivery date. Patient was instructed to call us when shereceives a delivery date, then we can set up her OV and lab appointments. Patient aware this nurse will call her within the next week to discuss lynparza information. Patient stated understanding. Maegan Murguia RN January 31, 2023 * Telephone Encounter - Sherine Martinez LPN - 01/31/2023 11:00 AM EDT Called and spoke to daughter. They have an order to start an oral medication, she has the paperworkwith the name of the medication, she sent the info in a JPEG image in a Next[employer] message. OK to make apt? Sherine Martinez LPN * Telephone Encounter - Mickey RodrigesMarisa - 01/31/2023 10:40 AM EDT Patient called in stating she needs an appt with Dr. Patricio and to have a maintenance chemo that a provider from [place] requests. She states Dr. Patricio is aware of treatment. Please advise. documented in this encounterC[facility]09-29-2023 Miscellaneous Notes* Telephone Encounter - Tiffany To LISW - 12/28/2022 1:03 PM EDT SOCIAL WORK FOLLOW UP NOTE: [facility]CER CENTER Date of service: December 28, 2022 Ashley Alcantar is being seen for a follow up social work visit. Today's visit includes: patient TOPICS ADDRESSED: SW spoke to pt this date. Pt is inquiring about an extension on her paxcuf-[id number]-[id number] date. Pt is asking for a letter completed by Dr. Patricio allowing her to be off through 01/16/23. SWcompleted letter and reviewed with Dr. Patricio. SW called pt and informed her letter is ready to pickup. PLAN: Continue follow up as needed F/U APPOINTMENT: PRN Assigned SW listed in Care Team tab: Yes MARCELLE Hagan documented in this encounterC[facility] Clinic [facility]09-22-2023 Miscellaneous Notes* Telephone Encounter - Giovanna Ferrari - 12/21/2022 12:41 PM EDT Cancelled as directed. Spoke with patient's daughter and advised the same. Giovanna Ferrari * Telephone Encounter - Ruddy Patricio DO - 12/21/2022 12:26 PM EDT No. And agree she has completed chemotherapy for now. Ruddy Patricio DO * Telephone Encounter - Gloria Barreto LPN - 12/21/2022 12:09 PM EDT I spoke with patient's daughter, Giovanna. Last treatment 12/12/2022. Scheduled for treatment here 12/25/2022 and 01/01/2023. Patient has follow up appointments at [facility] beginning 01/07/2023, and is to be off of chemotherapy for at least [address] Patricio- does patient need to keep lab and OV appointment 12/24/2022? Gloria Barreto LPN * Telephone Encounter - Giovanna Ferrari - 12/21/2022 11:46 AM EDT Patient called in. She stated she thought she was done with infusions, but she is scheduled fro next week. Please advise. Giovanna Ferrari documented in this encounterC[facility]09-06-2023 History of Present illness Narrative* Alistair Wood RN - 12/05/2022 10:41 AM EDT Prelim ANC 1.83 per lab. documented in this encounterCleveland Clinic [facility]08-31-2023 Miscellaneous Notes* Telephone Encounter - Gely Escobar - 11/29/2022 8:33 AM EDT Scheduled lab. Spoke with pt's daughter and informed of apt * Telephone Encounter - Hayley Jeronimo LPN - 11/29/2022 8:14 AM EDT Appt. Notes edited to reflect CBC next week. PSS please reach out to pt. And schedule lab appt. Just prior to treatment on 12/05 Hayley Jeronimo LPN * Telephone Encounter - Ruddy Patricio DO - 11/28/2022 7:38 PM EDT She needs a repeat CBC when here for chemotherapy next week. Ruddy Patricio DO documented in this encounterCleveland Clinic [facility]08-30-2023 History of Present illness Narrative* Ruddy Patricio DO - 11/28/2022 2:43 PM EDT Oncologic problem(s): 1) Uterine carcinosarcoma. 2) CLL. HPI: The patient is an 82-year-old female has a past medical history significant for hypertension and aortic stenosis. She had a CBC on 06/05/2021 as part of work-up for cataract surgery. She was incidentally found to have a white count of 25,900. Hemoglobin was 11.7 g/dL and the platelet count was 229,000. Differential significant for an absolute lymphocyte count of 20,850. Flow cytometry in mid May identified 2 populations of CD5 positive, CD23 positive monoclonal B cells. 1 representing 98% was lambda light chain restricted and the other 2% was kappa light chain restricted. Chemistry panel revealed a normal total bilirubin, AST, ALT and alkaline phosphatase. Total protein, albumin and globulin levels were normal. Serum creatinine was 1.0 mg/dL. Serum calcium was 9.2 mg/dL. As of initial visit: She has no complaints today. She is active. 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 She lives independently and is capable of all ADLs and IADLs. She has noticed some increase inshortness of breath over the last several weeks. She is scheduled to see a plastic die maker apprentice in [place] history of aortic stenosis. She has not had any unusual bleeding or unexplained bruising. 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 Didn't feel much different. She was seen by her PCP on 04/04/2022 with complaints of change in bowel habits associated with pain and pressure in the lower abdomen. She was referred to general surgery. On exam she was observed to have a right inguinal hernia most noticeable when she stood upright. It was easily reducible. In themedial right groin she had a somewhat mobile 1/2 cm subcutaneous nodule that was not reducible. Limited ultrasound suggested was a cystic lesion with some internal debris. Unclear whether it extendedsubfascially. An abdominal pelvic CT scan on 04/04/2022 revealed a low-density mass anterior to the uterus that measured 7.2 x 7.9 x 6.3 cm potentially representing a large exophytic fibroid. There was free fluid observed in the upper abdomen and pelvis. Small bilateral inguinal hernias were also noted slightly larger on the right with fluid extending into the hernia sacs. Multiple varices were observed in the pelvis potentially representing pelvic congestion syndrome. Pelvic ultrasound 04/05 demonstrated a large pedunculated fibroid in the left adnexa with moderate ascites. There was no definitive evidence for an ovarian mass however the ovaries were not visualized due to bowel gas producing artifact. Patient was evaluated by Dr. Borden at [facility]. Radiographic imaging was obtained. CT chest 04/25 demonstrated upper abdominal ascites with scarring at the lung apices more prominent on the right. There were small bilateral axillary lymph nodes and mild scarring of the lung apicesmost prominent on the right. Patient underwent diagnostic laparoscopy, peritoneal biopsies and drainage of ascites on 05/16/2022 at [facility] by Dr. Ary Borden. 4 L of ascites was aspirated during the procedure. 3 of which were submitted for cytology. A friable mass was identified in the pelvis adherent to the sigmoid colon and this was easily biopsied as it was quite friable. Frozen section of the mass demonstrated poorly differentiated carcinoma. Pathology: A and B. 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 Mismatch repair (MMR) interpretation: Proficient (microsatellite stable) Results Mismatch Repair Protein Immunohistochemistry Results: MLH1: Normal/Intact Nuclear Expression PMS2: Normal/Intact Nuclear Expression MSH2: Normal/Intact Nuclear Expression MSH6: Normal/Intact Nuclear Expression A - PELVIC FLUID. - ascities Atypical cells present. Patient had 1 visit to the [facility] ED on 05/20. Admitted to [facility] after saw PCP 05/24/2022. Patient had a right-sided thoracentesis ultrasound-guided on 05/24/2022. Approximately 1750 mL of blood-tinged fluid was drained. Cytology was negative for malignant cells. She underwent a second right sided ultrasound-guided thoracentesis on 05/28/2022. 2060 mL of blood-tinged fluid was drained. Cytology was not performed. An ultrasound of the abdomen on 05/29 did not identify a significant amount of ascites. Current therapy: 1) Carboplatin and paclitaxel. Started cycle 1 on 06/06/2022. Competed 4 cycles. Had PleurX removed. Radical tumor reductive surgery including total abdominal hysterectomy and bilateral salpingo-oophorectomy, infracolic omentectomy, small bowel oversew, and bilateral inguinal herniorrhaphy on 09/19/22. Pathology: A: Ovary and fallopian tube, left: OVARY, CARCINOSARCOMA WITH HETEROLOGOUS ELEMENTS. (SEE SYNOPTIC AND COMMENT) FALLOPIAN TUBE, HIGH GRADE CARCINOMA IN A BACKGROUND OF FIBROSIS AND THERAPY RELATED CHANGES. B: Ovary and fallopian tube, right: Ovary, no tumor present. Fallopian tube, no tumor present. C: Uterus and cervix: Uterine cervix, no tumor present. Inactive endometrium. Adenomyosis. Uterine leiomyomata. Adenomyoma. Uterine serosa, dense fibrous adhesions. D: Left inguinal hernia sac: Fibroadipose and fibrous tissue with mesothelial lining, consistent with hernia sac. No tumor present. E: Omentum: Fibroadipose tissue with scattered chronic inflammation, no tumor present. The tumor shows extensive therapy related changes. The tumors a bi-phasic appearance, with portionsof tumor consistent with a high grade carcinoma component with foci of a sarcomatous component. Immunohistochemical stains are performed and show the tumor cells to be positive for MOC31, cytokeratin7, PAX- 8, WT-1, p53 (aberrant, cytoplasmic), ER (rare, weak) and LA (10%, moderate). Areas of spindled cells are positive for desmin, while negative for caldesmon, myogenin, myoD1, lopez-cytokeratin and cytokeratin 7. The sarcomatous component is predominantly a high grade spindled sarcoma, with focal heterologous component of cartilaginous differentiation; focally, rhabdoid features are seen but are not entirely supported by immunohistochemical stains. The findings are consistent with a carcinosarcoma with heterologous elements. Addendum 1 This addendum is issued to report findings of immunohistochemical studies performed at the request of the treating clinician. Immunohistochemistry for DNA mismatch repair proteins was performed using formalin-fixed, paraffin-embedded sections of the tumor. Both tumor cell nuclei and stromal cells have positive expression ofMLH1, MSH2, MSH6, and PMS2. Carcinomas with intact positive IHC expression of mismatch repair proteins are typically sporadic/microsatellite stable in nature. However, a subset of MSI- high carcinomas is associated with intact positive expression of mismatch repair proteins. Consider referral to genetic counseling if there is family history suggestive of a hereditary cancer syndrome She made a very nice recovery from surgery. She received Taxol at 175 mg meter squared on day 1 with cycle 5. For about a week she had malaise,loss of appetite, abdominal pain and diarrhea. Presents for ongoing oncologic management. Interim history: She continues to tolerate treatment overall very well. First week typically has loss of appetite. Occasional right and left lower quadrant pain. No symptoms of sensory neuropathy. PMH, medications and allergies personally reviewed by me today. Any changes documented in appropriate section. ROS: Constitutional: Denies episodes of fever and night sweats. Neuro: Denies VELEZ, vertigo, dizziness and imbalance. HEENT: No recent change in voice, vision or hearing. Resp: See HPI. CVS: Denies exertional chest pain, PND, orthopnea. GI: See HPI. : Denies dysuria or gross hematuria. Endo: Denies hot flashes. Denies polyuria and polydipsia. Denies heat and cold intolerance. Musculoskeletal: Denies bone, back, joint and muscular pain. Derm: Denies rash. Denies jaundice and diffuse pruritis. Heme: Denies unusual bleeding and unexplained bruising. Psych: Normal mood. PHYSICAL EXAM: Vitals: Blood pressure 123/58, pulse 60, temperature 36.6 C (97.8 F), weight 48.5 kg (107 lb), [id number] %. Well-appearing and in no acute distress. EYES: Sclerae are anicteric bilaterally. LYMPHATIC: There is no palpable cervical or supraclavicular adenopathy. RESPIRATORY: Still has auscultatory findings of small effusion right base. Otherwise clear inspiratory vesicular sounds throughout. Contract tube underskin it is tender but there is no redness or induration. CARDIOVASCULAR: Rhythm is regular. ABDOMEN: The abdomen is nondistended. No organomegaly. No tenderness. No fluid wave. SKIN: No jaundice. 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 Good pathologic response and she tolerated therapy very well. -She completed 6 cycles of therapy on 11/13. Plan at that time was for her to return to [facility] for recommendations on maintenance therapy. She was not scheduled for anything. But now scheduled for surgery in December. -Continues tolerate treatment well. Plan: -She will contact her surgeon at [facility] to see if she is to continue chemotherapy for the timebeing. -She will contact cardiology at [facility] regarding need for echocardiogram for preperative evaluation. (C91.10) CLL (chronic lymphocytic leukemia) ([facility]) Assessment: -Incidentally diagnosed with CLL when establishing medical care for need for cataract surgery. She was also diagnosed with aortic stenosis. -Lymphocyte count decreased initially with chemotherapy and is now stable around 11,000 cells per microliter. Plan: -Routine monitoring throughout chemotherapy. Portions of this documentation were copied and pasted from previous office visit notes in order to provide a cohesive continuity of the history. The note has been reviewed and edited and updated as necessary. I spent a total of 20 minutes on the date of the service which included preparing to see the patient, [id number] patient care, completing clinical documentation, obtaining and/or reviewing separately obtained history, performing a medically appropriate examination, counseling and educating the pat ient/family/caregiver, ordering medications, tests, or procedures, communicating with other HCPs (not separately reported), and communicating results to the patient/family/caregiver. Ruddy Patricio DO documented in this encounterCleveland [facility] History of Present illness Narrative* Ruddy Patricio DO - 11/05/2022 10:48 AM EDT Oncologic problem(s): 1) Uterine carcinosarcoma. 2) CLL. HPI: The patient is an 82-year-old female has a past medical history significant for hypertension and aortic stenosis. She had a CBC on 06/05/2021 as part of work-up for cataract surgery. She was incidentally found to have a white count of 25,900. Hemoglobin was 11.7 g/dL and the platelet count was 229,000. Differential significant for an absolute lymphocyte count of 20,850. Flow cytometry in mid May identified 2 populations of CD5 positive, CD23 positive monoclonal B cells. 1 representing 98% was lambda light chain restricted and the other 2% was kappa light chain restricted. Chemistry panel revealed a normal total bilirubin, AST, ALT and alkaline phosphatase. Total protein, albumin and globulin levels were normal. Serum creatinine was 1.0 mg/dL. Serum calcium was 9.2 mg/dL. As of initial visit: She has no complaints today. She is active. 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 She lives independently and is capable of all ADLs and IADLs. She has noticed some increase inshortness of breath over the last several weeks. She is scheduled to see a plastic die maker apprentice in August forthe history of aortic stenosis. She has not had any unusual bleeding or unexplained bruising. 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 Didn't feel much different. She was seen by her PCP on 04/04/2022 with complaints of change in bowel habits associated with pain and pressure in the lower abdomen. She was referred to general surgery. On exam she was observed to have a right inguinal hernia most noticeable when she stood upright. It was easily reducible. In themedial right groin she had a somewhat mobile 1/2 cm subcutaneous nodule that was not reducible. Limited ultrasound suggested was a cystic lesion with some internal debris. Unclear whether it extendedsubfascially. An abdominal pelvic CT scan on 04/04/2022 revealed a low-density mass anterior to the uterus that measured 7.2 x 7.9 x 6.3 cm potentially representing a large exophytic fibroid. There was free fluid observed in the upper abdomen and pelvis. Small bilateral inguinal hernias were also noted slightly larger on the right with fluid extending into the hernia sacs. Multiple varices were observed in the pelvis potentially representing pelvic congestion syndrome. Pelvic ultrasound 04/05 demonstrated a large pedunculated fibroid in the left adnexa with moderate ascites. There was no definitive evidence for an ovarian mass however the ovaries were not visualized due to bowel gas producing artifact. Patient was evaluated by Dr. Borden at [facility]. Radiographic imaging was obtained. CT chest 04/25 demonstrated upper abdominal ascites with scarring at the lung apices more prominent on the right. There were small bilateral axillary lymph nodes and mild scarring of the lung apicesmost prominent on the right. Patient underwent diagnostic laparoscopy, peritoneal biopsies and drainage of ascites on 05/16/2022 at [facility] by Dr. Ary Borden. 4 L of ascites was aspirated during the procedure. 3 of which were submitted for cytology. A friable mass was identified in the pelvis adherent to the sigmoid colon and this was easily biopsied as it was quite friable. Frozen section of the mass demonstrated poorly differentiated carcinoma. Pathology: A and B. 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 Mismatch repair (MMR) interpretation: Proficient (microsatellite stable) Results Mismatch Repair Protein Immunohistochemistry Results: MLH1: Normal/Intact Nuclear Expression PMS2: Normal/Intact Nuclear Expression MSH2: Normal/Intact Nuclear Expression MSH6: Normal/Intact Nuclear Expression A - PELVIC FLUID. - ascities Atypical cells present. Patient had 1 visit to the [facility] ED on 05/20. Admitted to [facility] after saw PCP 05/24/2022. Patient had a right-sided thoracentesis ultrasound-guided on 05/24/2022. Approximately 1750 mL of blood-tinged fluid was drained. Cytology was negative for malignant cells. She underwent a second right sided ultrasound-guided thoracentesis on 05/28/2022. 2060 mL of blood-tinged fluid was drained. Cytology was not performed. An ultrasound of the abdomen on 05/29 did not identify a significant amount of ascites. Current therapy: 1) Carboplatin and paclitaxel. Started cycle 1 on 06/06/2022. Competed 4 cycles. Had PleurX removed. Presents for ongoing oncologic management. Interim history: Radical tumor reductive surgery including total abdominal hysterectomy and bilateral salpingo-oophorectomy, infracolic omentectomy, small bowel oversew, and bilateral inguinal herniorrhaphy on 09/19/22. Pathology: A: Ovary and fallopian tube, left: OVARY, CARCINOSARCOMA WITH HETEROLOGOUS ELEMENTS. (SEE SYNOPTIC AND COMMENT) FALLOPIAN TUBE, HIGH GRADE CARCINOMA IN A BACKGROUND OF FIBROSIS AND THERAPY RELATED CHANGES. B: Ovary and fallopian tube, right: Ovary, no tumor present. Fallopian tube, no tumor present. C: Uterus and cervix: Uterine cervix, no tumor present. Inactive endometrium. Adenomyosis. Uterine leiomyomata. Adenomyoma. Uterine serosa, dense fibrous adhesions. D: Left inguinal hernia sac: Fibroadipose and fibrous tissue with mesothelial lining, consistent with hernia sac. No tumor present. E: Omentum: Fibroadipose tissue with scattered chronic inflammation, no tumor present. The tumor shows extensive therapy related changes. The tumors a bi-phasic appearance, with portionsof tumor consistent with a high grade carcinoma component with foci of a sarcomatous component. Immunohistochemical stains are performed and show the tumor cells to be positive for MOC31, cytokeratin7, PAX- 8, WT-1, p53 (aberrant, cytoplasmic), ER (rare, weak) and LA (10%, moderate). Areas of spindled cells are positive for desmin, while negative for caldesmon, myogenin, myoD1, lopez-cytokeratin and cytokeratin 7. The sarcomatous component is predominantly a high grade spindled sarcoma, with focal heterologous component of cartilaginous differentiation; focally, rhabdoid features are seen but are not entirely supported by immunohistochemical stains. The findings are consistent with a carcinosarcoma with heterologous elements. Addendum 1 This addendum is issued to report findings of immunohistochemical studies performed at the request of the treating clinician. Immunohistochemistry for DNA mismatch repair proteins was performed using formalin-fixed, paraffin-embedded sections of the tumor. Both tumor cell nuclei and stromal cells have positive expression ofMLH1, MSH2, MSH6, and PMS2. Carcinomas with intact positive IHC expression of mismatch repair proteins are typically sporadic/microsatellite stable in nature. However, a subset of MSI- high carcinomas is associated with intact positive expression of mismatch repair proteins. Consider referral to genetic counseling if there is family history suggestive of a hereditary cancer syndrome She made a very nice recovery from surgery. Presents for ongoing oncologic management. Interim history: She received Taxol at 175 mg meter squared on day 1 with cycle 5. For about a week she had malaise,loss of appetite, abdominal pain and diarrhea. Symptoms of recovered this past week. She received her 1 unit red blood cell transfusion last week as well. Appetite improving. Bowels moving more regularly. No symptoms of sensory neuropathy. PMH, medications and allergies personally reviewed by me today. Any changes documented in appropriate section. ROS: Constitutional: Denies episodes of fever and night sweats. Neuro: Denies VELEZ, vertigo, dizziness and imbalance. HEENT: No recent change in voice, vision or hearing. Resp: See HPI. CVS: Denies exertional chest pain, PND, orthopnea. GI: See HPI. : Denies dysuria or gross hematuria. Endo: Denies hot flashes. Denies polyuria and polydipsia. Denies heat and cold intolerance. Musculoskeletal: Denies bone, back, joint and muscular pain. Derm: Denies rash. Denies jaundice and diffuse pruritis. Heme: Denies unusual bleeding and unexplained bruising. Psych: Normal mood. PHYSICAL EXAM: Vitals: Blood pressure 126/54, pulse (!) 58, temperature 36.1 C (97 F), weight 50.3 kg (111 lb), SpO2 99 %. Well-appearing and in no acute distress. EYES: Sclerae are anicteric bilaterally. LYMPHATIC: There is no palpable cervical or supraclavicular adenopathy. RESPIRATORY: Still has auscultatory findings of small effusion right base. Otherwise clear inspiratory vesicular sounds throughout. Contract tube underskin it is tender but there is no redness or induration. CARDIOVASCULAR: Rhythm is regular. ABDOMEN: The abdomen is nondistended. No organomegaly. No tenderness. No fluid wave. Extremities: Mild symmetric nonpitting edema about one third of the way up the lower legs bilaterally. No calf tenderness. SKIN: No jaundice or rash. No petechiae. LABS: Component Latest Ref Rng & Units 10/19/2022 11/05/2022 WBC 3.70 - 11.00 k/uL 14.08 (H) 9.12 RBC 3.90 - 5.20 m/uL 3.16 (L) 2.91 (L) Hemoglobin 11.5 - 15.5 g/dL 10.2 (L) 9.3 (L) Hematocrit 36.0 - 46.0 % 32.7 (L) 30.5 (L) MCV 80.0 - 100.0 fL 103.5 (H) 104.8 (H) MCH 26.0 - 34.0 pg 32.3 32.0 MCHC 30.5 - 36.0 g/dL 31.2 30.5 RDW-CV 11.5 - 15.0 % 13.9 13.9 Platelet Count 150 - 400 k/uL 149 (L) 129 (L) MPV 9.0 - 12.7 fL 9.9 10.5 NRBC /100 WBC 0.0 Absolute nRBC <0.01 k/uL <0.01 Neut% % 16.0 Abs Neut (ANC) 1.45 - 7.50 k/uL 2.25 Lymph% % 81.0 Abs Lymph 1.00 - 4.00 k/uL 11.40 (H) [place]% % 2.0 Abs [place] <0.87 k/uL 0.28 Eosin% % 1.0 Abs Eosin <0.46 k/uL 0.14 Baso% % 0.0 Abs Baso <0.11 k/uL 0.00 Platelet Estimate Decreased Red Cell Morph Reviewed: see results of individual morphologies Anisocytosis Present Ovalocytes Few Tear Drop Few DTYPE Manual ASSESSMENT/PLAN: (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 Good pathologic response and she tolerated therapy very well. -Discussed plan for two further cycles. Following that she will return to [facility] for imaging and recommendations on maintenance therapy. -We also discussed changing to paclitaxel on day 1 only rather than doing a split dose. This was recommended by her gynecologic oncology surgeon at [facility]. Plan: -Okay for cycle #6 on Saturday. Change paclitaxel back to day 1 and 8 schedule. -Monitor CA125. -Scheduled to return to [facility] for laparoscopy and recommendations on maintenance therapy. (C91.10) CLL (chronic lymphocytic leukemia) ([facility]) Assessment: -Incidentally diagnosed with CLL when establishing medical care for need for cataract surgery. She was also diagnosed with aortic stenosis. -Lymphocyte count decreased initially with chemotherapy and is now stable around 11,000 cells per microliter. Plan: -Routine monitoring throughout chemotherapy. Portions of this documentation were copied and pasted from previous office visit notes in order to provide a cohesive continuity of the history. The note has been reviewed and edited and updated as necessary. I spent a total of 25 minutes on the date of the service which included preparing to see the patient, [id number] patient care, completing clinical documentation, obtaining and/or reviewing separately obtained history, performing a medically appropriate examination, counseling and educating the pat ient/family/caregiver, ordering medications, tests, or procedures, communicating with other HCPs (not separately reported), and communicating results to the patient/family/caregiver. Ruddy Patricio DO documented in this encounterCleveland Clinic [facility]2023 Miscellaneous Notes* Telephone Encounter - Gely Escobar - 10/01/2022 4:09 PM EDT Scheduled as directed. Spoke with pt's daughter and confirmed apts * Telephone Encounter - Maegan Murguia RN - 10/01/2022 1:44 PM EDT Patient will need CBC/CMP/CA-125/OV with Dr. Patricio prior to next chemotherapy treatment. Thank you. Maegan Murguia RN * Telephone Encounter - Gely Escobar - 10/01/2022 1:24 PM EDT Pt's daughter calling in stating that pt's follow from surgery is scheduled for 10/16 and that she would be good to restart chemo after. Please advise on next steps for scheduling. Thank you! documented in this encounterCleveland Clinic [facility]06-08-2023 History of Present illness Narrative* Marisa Hall, RT(R) - 09/06/2022 1:30 PM EDT Radiology Service Progress Note PATIENT NAME: Ashley Alcantar DATE OF SERVICE: September 06, 2022 TIME: 2:13 PM PATIENT IDENTITY VERIFICATION COMPLETED USING TWO (2) IDENTIFIERS: Name and Date of confirmedby patient verbally. FALL SCREENING: Has the patient had 2 falls in the last year or 1 fall with injury or currently using an Ambulatory Assistive Device (Walker, Cane, Wheelchair, Crutches, etc.)? No PATIENT GENDER DATA: Female. status: : No status: NO. PATIENT RELEVANT IMPLANT DATA REVIEWED: Not Applicable RADIOLOGY DEPARTMENT: General X-ray: Exam(s) Completed: Chest X-Ray PERIPHERAL IV DATA: Not applicable SIGNED BY: RT Ivanna(R) September 06, 2022 2:13 PM documented in this encounterCleveland Clinic [facility]06-02-2023 Miscellaneous Notes* Telephone Encounter - Marisa Rodriges - 08/31/2022 12:07 PM EDT Appointment scheduled * Telephone Encounter - Hayley Felix LPN - 08/31/2022 11:52 AM EDT Pt. Called office, given information PSS please put on lab schedule for Sunday 09/03 @ 9:30 am CBC Hayley Felix LPN * Telephone Encounter - Gloria Barreto LPN - 08/31/2022 8:26 AM EDT Message left for patient's daughter, Giovanna LOTT), to contact office for information and to schedule lab appointment for Saturday. Gloria Barreto LPN * Telephone Encounter - Ruddy Patricio DO - 08/30/2022 7:04 PM EDT ANC is very low. Advise her to go to [place] ED if develops fever. Recheck CBC on Saturday. Ruddy Patricio DO documented in this encounterCleveland Clinic [facility]05-31-2023 Miscellaneous Notes* Telephone Encounter - Gloria Barreto LPN - 08/29/2022 3:[address] Patricio- the pleurx catheter stays in for the time being.. Patient's daughter is aware. Gloria Barreto LPN * Telephone Encounter - Gloria Barreto LPN - 08/29/2022 3:51 PM EDT Patient's daughter notified. She is also still wanting an answer to question below regarding when drain can be removed? Prior tosurgery in August in [place]? I did tell her that I thought the drain would remain in but did want to clarify. Gloria Barreto LPN * Telephone Encounter - Ruddy Patricio DO - 08/29/2022 3:40 PM EDT Her CA125 has come down, so hopefully pleural fluid is slowing, so okay to extend time between draining. Ruddy Patricio DO * Telephone Encounter - Mary Jang RN - 08/29/2022 2:46 PM EDT Ashley called. She had been draining her Plurex catheter every 2 days, which is what Dr. Pichardo told her to do. This last week, her niece could not get to it and it had to wait for 3 days, but theyonly got 25 mL out. Ashley is asking if they can extend the drainage to 3 or 4 days instead of every other day? Also, Ashley states that she is going to [place] to have surgery done and she would like to know if she has to keep the catheter in when she goes in August of if she can have it removed? Advised that I would send a message to both Dr. Pichardo and Dr. Patricio and ask for advice. Mary Jang RN documented in this encounterCleveland Clinic [facility]05-31-2023 Miscellaneous Notes* Telephone Encounter - Marisa Arevalo Pss - 08/29/2022 3:54 PM EDT Completed * Telephone Encounter - Sherine Martinez LPN - 08/29/2022 3:49 PM EDT Please make lab apt for 08/30/22 for a morning apt. she is unsure when she will be in. Please schedule CBC possible transfusion. Sherine Martinez LPN * Telephone Encounter - Ruddy Patricio DO - 08/29/2022 3:31 PM EDT Filed. Ruddy Patricio DO * Telephone Encounter - Sherine Martinez LPN - 08/29/2022 2:29 PM EDT Yes. CBC possible tx. Her hgb was 8 on 08/23. I called and spoke to daughter. She was unsure if she would be able to get here by 3:30 today, if not she will be in tomorrow. Pended cbc possible tx. Sherine Martinez LPN * Telephone Encounter - Marisa Arevalo Pss - 08/29/2022 2:17 PM EDT Patient states when she was in on 08/23 for chemo, she was informed by nurse to come in for labs today. Please advise. documented in this encounterCleveland Clinic [facility]05-04-2023 Miscellaneous Notes* Telephone Encounter - Ruddy Patricio DO - 08/02/2022 12:39 PM EDT Noted. Thank you. Ruddy Patricio DO * Telephone Encounter - Marisa Arevalo Pss - 08/02/2022 10:49 AM EDT Patient called and states she takes prescription potassium. Prescribed by Dr. Patricio. She states she had forgotten to take them for about 6 days, however, she is taking them again. * Telephone Encounter - Hayley Felix LPN - 08/02/2022 8:08 AM EDT Spoke with pts. Daughter believes her mother is taking an OTC potassium. Informed to have her mother contact office and let us know. Hayley Felix LPN * Telephone Encounter - Ruddy Patricio DO - 08/01/2022 7:34 PM EDT Verify she's been taking potassium as prescribed. Ruddy Patricio DO documented in this encounterCleveland Clinic [facility]04-27-2023 History of Present illness Narrative* Vishal Pichardo MD - 07/26/2022 2:49 PM EDT FOLLOW UP VISIT - POST OP - NAME: Ashley Alcantar [facility] NO[facility] [id number] DATE OF SERVICE: 07/26/2022 : 1940 REFERRING PHYSICIAN: Vern Bernardo MD Ashley is a patient I am following for a recurring right pleural effusion. The patient was requiring frequent thoracenteses prior to the placement of the catheter. I saw her on June 28, 2022 and noted: Ashley has had the need for multiple thoracenteses at this point twice a week. The patient underwent thoracentesis this past Saturday and had I understand 1600 cc of fluid removed. I obtained a chest x-ray today that already shows significant reaccumulation of the fluid. She is scheduled to have repeat thoracentesis tomorrow. The patient is referred for evaluation for placement of a tunnelled right pleural catheter or Pleurex catheter. Additionally, the patient will be traveling down to [place] for second opinion at [facility]. The family tells me that they are planning to start driving on July 06 but that the visit [facility] is not scheduled until July 12. The patient is being seen by me at the request of Dr. Patricio for my opinion and advice regarding rapidly recurring reaccumulating right pleural fluid. We discussed the rationale for placing the catheter including the fact that if we kept tapping her dry every 2 days there was a decent chance she would get an auto pleurodesis and that the fluid would not be able to reaccumulate. I performed a right breast thoracic pleurex catheter placement on July 02, 2022. I drained a total of 1550 mL of fluid at that time. The postprocedure chest x-ray demonstrated that she was tapped nearly completely dry. Patient was seen by Regina Ramirez and had 250 cc of fluid drained on July 05. The patient traveled to [place]. She did not drain her system at all during that time. She presented to Dr. Patricio's office asking to have the catheter removed because she felt it was causing her itching and was an annoyance. A chest x-ray was obtained at that time on July 17 which demonstrated reaccumulation of fluid to the right hemithorax approximately one half the hemithorax. I was contacted and I recommended they perform drainage of the system every other day as initially directed. The patient presents to me today with a family member. They last drained the catheter on Saturday and removed proximately 1000 cc. A chest x-ray was obtained yesterday which still demonstrated some accumulated fluid but was significantly less than that seen on the chest x-ray from July 17 Output from the pleurex catheter has been VITALS: Blood pressure 122/68, pulse 84, temperature 36.4 C (97.6 F), height 147.3 cm (4' 10), weight 49.8 kg (109 lb 12.8 oz), SpO2 98 %. On examination, the pleurex catheter incision sites are clean and intact. The catheter was attachedto a vaccuum bottle. 700cc was evacuated from the right chest. The dressing was replaced. Assessment IMPRESSION: Status post drainage of right thoracic pleurex catheter placement PLAN: If the patient notes any problems or signs of wound infections, she should contact me immediately. The patient should continue drainage every other day as directed. I reiterated the importance reasonfor the catheter to be drained every other day. I have ordered a chest x-ray for today to assess whether she had complete evacuation of the fluid. The patient stated she was also concerned because she was told she had a pneumothorax after her previous thoracenteses and that she should not fly an airplane. I informed her that since the Pleurx catheter has been in place she has had multiple x-rays and has no pneumothoraces and should not develop a pneumothorax while draining the Pleurx catheter. Diagnoses: (J90) Pleural effusion (primary encounter diagnosis) Return to Clinic: The patient is instructed to follow-up with me as needed. Vishal Pichardo MD documented in this encounterCleveland Clinic [facility]04-26-2023 History of Present illness Narrative* Bob Ledbetter RT(R) - 07/25/2022 11:40 AM EDT Radiology Service Progress Note PATIENT NAME: Ashley Alcantar DATE OF SERVICE: July 25, 2022 TIME: 11:38 AM PATIENT IDENTITY VERIFICATION COMPLETED USING TWO (2) IDENTIFIERS: Name and Date of confirmedby patient verbally. FALL SCREENING: Has the patient had 2 falls in the last year or 1 fall with injury or currently using an Ambulatory Assistive Device (Walker, Cane, Wheelchair, Crutches, etc.)? No PATIENT GENDER DATA: Female. status: : No status: NO. PATIENT RELEVANT IMPLANT DATA REVIEWED: Not Applicable RADIOLOGY DEPARTMENT: General X-ray: Exam(s) Completed: Chest X-Ray PERIPHERAL IV DATA: Not applicable SIGNED BY: RT Larry(R) July 25, 2022 11:38 AM documented in this [facility]04-[facility] Miscellaneous Notes* Telephone Encounter - Maegan Murguia RN - 07/24/2022 4:55 PM EDT Patients daughter informed that patient does not need to take the dexamethasone prior to treatmentsgoing forward. Daughter stated patient filled the dexamethasone already and might take it because she has it on hand, daughter informed that would be fine but going forward, she does not need to filland take prior to chemo. Daughter stated understanding. Maegan Murguia RN * Telephone Encounter - Marisa Rodriges - 07/24/2022 4:26 PM EDT Patient called asking if she is to take medication prior to treatment scheduled tomorrow morning. She states there are 5 pills. Please advise patient. Appointment is at 830. documented in this encounterCleveland Clinic [facility]04-20-2023 Miscellaneous Notes* Telephone Encounter - Marisa Rodriges - 07/19/2022 3:12 PM EDT Please disregard. They were able to pull records online. * Telephone Encounter - Marisa Rodriges - 07/19/2022 3:09 PM EDT Received call from Dr. Bernardo's office requesting last office notes/labs/testing. documented in this [facility]04-19-[facility] Nurse Note* Mary Jang RN - 07/18/2022 5:24 PM EDT Ashley received a call from Dr. Patricio's office, stating that she needed to have her Plurex catheter drained, but the family does not feel comfortable draining it. Patient here with daughter and niece. Family instructed on sterile procedure. Reviewed how to remove the cap, cleanse it with alcohol, make sure the roller clamp is closed before connecting the bottle to the patient, listen for the click when the tubing is connected, remove the guard on the bottle before piercing the bottle, move theroller clamp into the open position slowly to avoid Ashley having chest pain as she has had previously. Removed 1100 mL of serosanguinous fluid, Ashley denied any shortness of breath or chest pain and tolerated the procedure well. Family instructed on closing the roller clamp before disconnectingthe tubing from the patient's chest tube, instructed not to touch the end of the chest tube and howto properly align the cap with the chest tube, applying the soft foam dressing against the patientsskin, coiling the chest tube neatly, covering it with gauze and how to properly maneuver the patient's skin so that the dressing does not pull when she stands up. The family was also instructed on how to properly dispose of the drainage. The family was given the opportunity to ask question. Advisedthat if they had any additional questions, please call the office. They voiced understanding. Dr. Lary Blakely assisted during the entire procedure. Mary Jang RN documented in this encounterC[facility] Miscellaneous Notes* Telephone Encounter - Gloria Barreto LPN - 07/18/2022 4:21 PM EDT Patient's daughter is aware of CXR results. They will drain fluid with pleurx cath as instructed. Gloria Barreto LPN * Telephone Encounter - Ruddy Patricio DO - 07/18/2022 4:04 PM EDT Needs to use the PleurX to drain it. Ruddy Patricio DO * Telephone Encounter - Gloria Barreto LPN - 07/18/2022 3:32 PM EDT Today's xray result: IMPRESSION: Interval development of large amount of fluid and atelectasis at the right base. Right hemithorax is approximately one half opacified. Similar to 06/28/2022 Gloria Barreto LPN * Telephone Encounter - Gloria Barreto LPN - 07/18/2022 10:21 AM EDT Patient's daughter is aware that xray results are still pending. Daughter states patient denies SOB and in the 2 weeks she's had the pleurx cath in, she hasn't had to drain it once. Daughter is aware that we will contact her/patient when xray is resulted. Gloria Barreto LPN * Telephone Encounter - Marisa Arevalo Pss - 07/18/2022 10:14 AM EDT Patient calling for xray results from yesterday. Also would like to have drainage tube removed. She is asking if she can contact Dr. Pichardo to remove. documented in this encounterC[facility]04[facility] History of Present illness Narrative* Regina Westfall RD - 07/11/2022 10:52 AM EDT Oncology Nutrition Therapy Reassessment Called patient during phone appointment time. Pt did not answer. Left message to call back. Signed by: Regina Westfall RD, LD documented in this encounterC[facility]04-[facility] Miscellaneous Notes* Telephone Encounter - Renee Parrish LPN - 07/05/2022 3:16 PM EDT Called and spoke to patient daughter Giovanna, updated chest xray was okay. And updated per Amandawho spoke to Dr Pichardo that rash maybe from the adhesive on the drape used during surgery. Giovanna voiced understanding. Renee Parrish LPN * Telephone Encounter - Regina Ramirez PA-C - 07/05/2022 2:45 PM EDT Please let patient know chest xray looked good, no concerning findings documented in this encounterC[facility]04[facility] History of Present illness Narrative* Regina Ramirez PA-C - 07/05/2022 2:25 PM EDT Ashley Alcantar is a 82 year old female who presents with family members for PleurX drainage teaching.Patient underwent placement of PleurX catheter by Dr. Pichardo on 07/02/22 for a right pleural effusion. She had 1550 mL of pleural fluid drained at that time. Patient denies any concerns since PleurX placement. Her family who is with her today is concerned about a rash lateral to the dressing site. Patient states she had not noticed this herself and is unsure when it presented. Family members are unsure when this was first noticed but think possibly within the last day or so. Patient denies fever, chills, itching or burning. On examination: Patient alert, cooperative, pleasant and in no acute distress Rash lateral to dressing site, suspect contact dermatitis from surgical drape adhesive-Dr. Pichardo notified, per RG okay to proceed with drainage. Remainder of dressing site and site directly around catheter without any skin disturbance. Catheter c/d/I Adhesive added to patient's allergy list Patient and family instructed to follow up with PCP if rash worsens or is not resolving in the nextfew days Patient and family members instructed in PleurX drainage process and had opportunity to ask questions and have questions answered Pt complaining of chest discomfort during drainage procedure, drainage stopped. 250 mL total of blood-tinged serous fluid drained New dressing placed Chest xray ordered and reviewed, no concerning findings noted Patient will attempt next drainage on Saturday Patient to contact office immediately if any questions or concerns Patient verbalized understanding of all above and agreed with the plan. Regina Ramirez PA-C documented in this [facility]04-06-[facility] History of Present illness Narrative* Jacqui Kauffman RT(R) - 07/05/2022 2:20 PM EDT Radiology Service Progress Note PATIENT NAME: Ashley Alcantar DATE OF SERVICE: July 05, 2022 TIME: 2:16 PM PATIENT IDENTITY VERIFICATION COMPLETED USING TWO (2) IDENTIFIERS: Name and Date of confirmedby patient verbally. FALL SCREENING: Has the patient had 2 falls in the last year or 1 fall with injury or currently using an Ambulatory Assistive Device (Walker, Cane, Wheelchair, Crutches, etc.)? No PATIENT GENDER DATA: Female. status: : No status: NO. PATIENT RELEVANT IMPLANT DATA REVIEWED: Yes RADIOLOGY DEPARTMENT: General X-ray: Exam(s) Completed: Chest X-Ray PA only PERIPHERAL IV DATA: Not applicable SIGNED BY: RT Ivan(R) July 05, 2022 2:16 PM documented in this [facility]04-06-2023 Instructions* Patient Instructions* Regina Ramirez PA-C - 07/05/2022 2:03 PM EDT -Check chest xray today documented in this [facility]04-03-2023 NoteHNO ID: [id number] Author: RT Lashanda(R) Service: Radiology Author Type: Technologist Type: Progress Notes Filed: 07/02/2022 1:31 PM Note Text: Radiology Service Progress Note PATIENT NAME: Ashley Alcantar DATE OF SERVICE: July 02, 2022 TIME: 1:30 PM PATIENT IDENTITY VERIFICATION COMPLETED USING TWO (2) IDENTIFIERS: Name and Date of confirmed by patient verbally. FALL SCREENING: Has the patient had 2 falls in the last year or 1 fall with injury or currently using an Ambulatory Assistive Device (Walker, Cane, Wheelchair, Crutches, etc.)? Inpatient: Screened on floor PATIENT GENDER DATA: Female. status: : No status: N/A PATIENT RELEVANT IMPLANT DATA REVIEWED: Not Applicable RADIOLOGY DEPARTMENT: General X-ray: Exam(s) Completed: Chest X-Ray PERIPHERAL IV DATA: Not applicable SIGNED BY: RT Lashanda(R) July 02, 2022 1:30 PMRegency Hospital [id number] History of Present illness Narrative* Marisa Hall RT(R) - 06/28/2022 8:40 AM EDT Radiology Service Progress Note PATIENT NAME: Ashley Alcantar DATE OF SERVICE: June 28, 2022 TIME: 9:33 AM PATIENT IDENTITY VERIFICATION COMPLETED USING TWO (2) IDENTIFIERS: Name and Date of confirmedby patient verbally. FALL SCREENING: Has the patient had 2 falls in the last year or 1 fall with injury or currently using an Ambulatory Assistive Device (Walker, Cane, Wheelchair, Crutches, etc.)? No PATIENT GENDER DATA: Female. status: : No status: NO. PATIENT RELEVANT IMPLANT DATA REVIEWED: Not Applicable RADIOLOGY DEPARTMENT: General X-ray: Exam(s) Completed: Chest X-Ray PERIPHERAL IV DATA: Not applicable SIGNED BY: RT Ivanna(R) June 28, 2022 9:33 AM documented in this encounterC[facility]03-29-2023 Miscellaneous Notes* Telephone Encounter - Ruddy Patricio DO - 06/27/2022 7:52 PM EDT Yes, dose changed. Ruddy Patricio DO * Telephone Encounter - Giovanna Lua RN - 06/27/2022 10:07 AM EDT Pt experiencing restless legs today due to the IV Benadryl. States she has never had this issue before. Pt currently receiving 50mg as a premed. OK to decrease to 25mg for next treatment? Please advise. documented in this encounterC[facility]03-29-2023 Miscellaneous Notes* Telephone Encounter - Gely Escobar - 06/27/2022 9:13 AM EDT Spoke with pt and son. Pt scheduled * Telephone Encounter - Giovanna Lua RN - 06/27/2022 8:57 AM EDT Pt notified chairside. Son will help pt schedule with printed products assembler. * Telephone Encounter - Hayley Felix LPN - 06/26/2022 4:42 PM EDT Left message on daughters voicemail to contact office tomorrow concerning low albumin and need for nutrition assessment with Regina Westfall. Hayley Felix LPN * Telephone Encounter - Ruddy Patricio DO - 06/26/2022 4:29 PM EDT The low albumin in the bloodstream is due to increased metabolism from cancer. Please schedule her to see Regina Westfall for nutrition assessment. Ruddy Patricio DO * Telephone Encounter - Giovanna Ferrari - 06/26/2022 3:21 PM EDT Spoke with patient's daughter and scheduled echo on 07/17, same day prior to Dr. Patricio appointment as she has to take the entire day off from work for each appointment. Giovanna Ferrari * Telephone Encounter - Lexis Guevara RN - 06/26/2022 2:45 PM EDT Call to patient, spoke with daughter. Patient is out with her son at time of phone call. Below message from Dr. Patricio relayed to Giovanna. Questions answered. Giovanna Rhodes is asking about patient's low albumin today. States she was getting infusions in the hospital. PSS: please call patient/daughter and schedule ECHO for Saturday AM on 07/16/22. Chen Guevara RN * Telephone Encounter - Ruddy Patricio DO - 06/26/2022 1:34 PM EDT Can let her or her daughter know that the echocardiogram from today showed that her heart function is normal but there is fluid in the pericardial sac around the heart. I spoke with one of the cardiologists who reviewed the images. Right now the fluid does not seem to be causing any consequence to her cardiac function but I was advised to repeat the echocardiogram in about 3 weeks. If she develops any chest pain, chest pressure, lightheadedness or worsening shortness of breath then she needs togo to the ER right away. Schedule next echo Saturday, 07/16. Ruddy Patricio DO documented in this encounterC[facility]03-27-2023 Miscellaneous Notes* Telephone Encounter - Ruddy Patricio DO - 06/25/2022 5:29 PM EDT I'm seeing her for OV tomorrow. Ruddy Patricio DO * Telephone Encounter - Hayley Felix LPN - 06/25/2022 4:33 PM EDT Fluid was sent 1 time 05/24/2022 Thoracentesis fluid for cytology 90 ml fluid sent results: Negative for malignant cells Bloody specimen Correlation with clinical findings and appropriate follow up are necessary Slides were reviewed , signed by Dr. Roa Perez @ [facility] Hayley Felix LPN * Telephone Encounter - Ruddy Patricio DO - 06/25/2022 3:40 PM EDT Can you see if they have been sending fluid for cytology? Ruddy Patricio DO * Telephone Encounter - Gloria Barreto LPN - 06/25/2022 3:30 PM EDT MINERVA Farrell from [facility] called to inform Dr. Patricio that the patient is now requiring a thoracentesis twice a week and has for the last 3 weeks. Gloria Barreto LPN documented in this encounterC[facility]03-20-2023 Miscellaneous Notes* Telephone Encounter - Herbert Worthy - 06/18/2022 8:56 AM EDT This is a 1st-time treatment report for this patient. The patient is active with Medicare A & [employer] with [facility] life and casualty supplement and has a $ 226.00 deductible, with an Udt-Xv-Lrtrdg of $ 1600.00 OOP and has $ 1600.00 remaining. An estimate shows patient's financial responsibility is $ 209.00 for each treatment in 2022 until the Ejf-Ol-Rrqrla max is reached. The reference number for this estimate is [id number]. This patient is receiveing treatment for a Chemo treatment. The patient currently has a self pay balance of $ 0.00. EC Hardship letter sent no. documented in this encounterC[facility]03-16-2023 Miscellaneous Notes* Telephone Encounter - Maegan Murguia RN - 06/14/2022 12:24 PM EDT TOXICITY CHECK SYMPTOM ASSESSMENT The patient is on Carboplatin/Paclitaxel Headache: No Visual Changes: No Dizziness: No Do you have any periods of confusion? No Mood changes: No Mouth or throat pain: No Appetite: no changes in appetite, appetite good really good last week Taste changes: No Nausea: No Vomiting: No Heartburn: No. Weight gain/loss: No Episodes of palpitations/chest discomfort/pressure/pain No Shortness of breath: No Cough: No Diarrhea: no Constipation: no Bladder/Urinary Changes: None Pain: No=0 (pain 0 on a scale of 0-10). Fever: No Chills: No Cold sensitivity: No Numbness/weakness: No Edema: No Skin changes: No Itching: No Yellowing of skin or eyes: No Musculoskeletal/joint changes/issues No Bleeding issues: No Activity Level: Good. Patient did not sleep well last night d/t receiving steroids with treatment. Daughter advised to have patient try melatonin or benadryl if needed for sleep disturbances, daughter stated understanding. Spoke to daughter who has no symptom concerns today. Does the patient need interventions or same day appointment:No Reinforced CURRENT treatment education based on current and anticipated symptoms. Discussed port/line care and patient verbalizes understanding: Not Applicable Patient instructed to contact office or after hours Hematology/Oncology fellow for: temperature ? 100.4; questions or concerns. Patient verbalized understanding of when to seek medical attention and after hours number protocol. Maegan Murguia RN documented in this encounterC[facility]03-15-2023 Miscellaneous Notes* Telephone Encounter - Gloria Barreto LPN - 06/13/2022 3:20 PM EDT Patient's daughter, Giovanna, is aware of symptoms to watch for and to go to ED if needed. Gloria Barreto LPN * Telephone Encounter - Ruddy Patricio DO - 06/13/2022 2:43 PM EDT Noted. Thank you. I am sure they instructed her to go to the ER if she develops chest pain or difficulty breathing. Best to verify that with her. Ruddy Patricio DO * Telephone Encounter - Gloria Barreto LPN - 06/13/2022 1:22 PM EDT ODILON Rizo, from [facility], contacted the office to update Dr. Patricio. Patient had a thoracentesis on Saturday and developed a small pneumothorax that has slightly increased in size as of today. Radiologist does not feel that this needs intervention at this point but did caution patient against flying to [place] until completely healed. Patient is scheduled for another thoracentesis on Saturday (standing order from [facility] [place]). Gloria Barreto LPN documented in this encounterC[facility]03-10-2023 Miscellaneous Notes* Telephone Encounter - SILAS Hagan - 06/08/2022 3:18 PM EST SOCIAL WORK DISTRESS ASSESSMENT Referral made due to:Moderate distress Contact was made: By telephone call with patient PHQ-9 06/01/2022 Score 17 Pt noted on the PRO report for a 17 on a recent PHQ and a 9/10 on the NCCN distress scale. Problems Addressed: Practical: N/A Family: N/A Emotional: Nervousness and Worry - Pt reports she struggles with anxiety from time to time and has been feeling much better since beginning the Ambien prescription from Dr. Patricio. She reports she will worry and gets a little anxious. She reports she has excellent supports including her daughter. She reports she is feeling better since beginning chemotherapy and not having any side effects currently. Spiritual Concerns: N/A Physical Problems: N/A Exercising: No Stress Management: No Is the patient's distress related to a change in quality of life? No Patient with current Suicidal Ideation: No MENTAL HEALTH HISTORY: Yes Diagnosis: Pt reports she has a history of anxiety. Substance Use and Treatment History: denied History of Abuse: denied History of combat/trauma: No INTERVENTION/PLAN: Monitor patient response to treatment Communicate pertinent medical/psychosocial information to Cancer Center team Provide emotional support to patient/family Continue follow up as needed Resources and Referrals: Internal: Nael Gaffney External: [facility] Follow up appointment with SW in: PRN Assigned SW listed in Care Team tab: Yes Assessment Completed SILAS Hagan-Neelam documented in this encounterC[facility]03-10-20[facility] History of Present illness Narrative* Regina Westfall, RD - 06/08/2022 11:00 AM EST Oncology Nutrition Therapy Initial Assessment I have communicated my name and active licensure. The patient's identity and physical location wereverified at the time of this visit. Either the patient or their legal sales representative marine supplies has been informed of the risks and benefits of -- and alternatives to -- treatment through a remote evaluation andconsents to proceed with the evaluation remotely. RECOMMENDED MALNUTRITION DIAGNOSIS: SEVERE PROTEIN-CALORIE MALNUTRITION In the context of Chronic Illness or Injury based on: Unintentional Weight Loss: >5% in 1 month Insufficient Energy Intake: Less than 75% energy intake compared to estimated needs for greater than or equal to 1 month Some elements copied from my note on NA first note, have been updated and all reflect current decision making from today, 06/08/2022 Nutriscore: No Data Recorded Nutrition Diagnosis: Malnutrition, related to, poor intake and weight loss, as evidenced by patientrecords and interview. Nutrition Intervention: -Consider meal prepping prior to treatment. - aim for 5-6 small/frequent meals - incorporate lean sources of protein/plant based proteins at meals - Stay well hydrated - sip on fluids throughout the day - continue supplementation: Ensure Plus Nutrition Monitoring & Evaluation: PO intake Supplement tolerance Wt status Biochemical Markers Skin integrity Plan of care Date of last encounter: NA first encounter Patient met goal(s): No Patient Condition: Pt presents for nutrition counseling for CLL. Pt is currently being treated with Paclitaxel, carboplatin. Pt denies food allergies/intolerances. Interval History: An ultrasound of the abdomen on 05/29 did not identify a significant amount of ascites. Discharged yesterday. Decreased appetite. Occasional nausea. Bowels moved yesterday. No black or bloody stools. Bladder--can void to completion. Denies pain. I have confirmed and edited as necessary the interval history obtained by Dr. Patricio on 06/01/22 and all reflect current status. Nutrition Assessment: Patient is at risk from a nutritional standpoint. Diet History (24hr recall): Breakfast - ensure, 2 eggs, pc toast, grapes, coffee Snack - Lunch - Cottage cheese, fruit cocktail, bowl of soup, salad, ensure 1/2 Snack - Dinner - Mohawk - chicken Pt states that If she has an appetite she will eat. Discussed eating small frequent meals. Using ONS regularly. She does not like the idea of eating on a schedule or routine. Emphasized the importance of intake of nutrition and fluids even if the body is not queuing for it. Stated she understands. Educational materials provided: none this visit Readiness to Learn: Cognitive ability: Confused at times Motivation to learn: Disinterested / avoidant Family support: Unable to assess - Family not present Instruction provided to: Patient Patient learns best by: Multiple Methods Factors affecting learning: None Physical limitations affecting learning: None Anthropometrics: HT/WT/BMI HEIGHT WEIGHT BODY MASS INDEX 12/14/2021 53.978 kg 25.15 12/22/2021 4' 10 51.71 kg 23.83 12/25/2021 53.978 kg 24.87 02/23/2022 4' 10.5 53.479 kg 24.22 04/13/2022 53.797 kg 24.37 04/18/2022 4' 10.5 53.615 kg 24.28 04/19/2022 4' 10.5 53.071 kg 24.04 04/27/2022 53.343 kg 24.16 05/14/2022 4' 10.5 57.607 kg 26.09 05/16/2022 4' 10.5 57.607 kg 26.09 06/01/2022 52.617 kg 23.83 Estimated body mass index is 23.83 kg/m as calculated from the following: Height as of 05/16/22: 148.6 cm (4' 10.5). Weight as of 06/01/22: 52.6 kg (116 lb). Resting Metabolic Rate: 889 Weight Change: 8.7% WEIGHT LOSS Dosing Weight: 52.6 kg Estimated kilocalorie needs: 7937-6974 kilocalories determined by 30-35 kcal/kg Estimated protein needs: 63-79 grams determined by 1.2-1.5 g/kg Dosing weight Estimated fluid needs: 1800 milliliters based on 1 mL per kcal Nutrition Focused Physical Exam: Unable to perform exam due to patient unavailable, will re-attemptduring reassessment. Potential Signs of Inflammation: chronic condition Allergies: Keflex [Cephalexin] Medications: Current Outpatient Medications Medication Sig Dispense Refill iv contrast (will be provided with radiology test) CT Chest ABD/PEL-Inject, intravenously, once for1 dose.No IV access, insert saline lock prior to the beginning of sedation, infusion, injection of imaging exam. Discontinue saline lock post exam. If Pt. has a central line or IVAD, may access for administration according to line specific nursing protocol. Once exam is complete flush line and de-access according to line specific nursing protocol in the CT contrast administration guidelines link.1 Each 0 enteric contrast (will be provided with radiology test) For CT CHESTABD/PEL W IVCON Routine order Administer, As Directed One Time Only, via Oral, Rectal, both Oral and Rectal, Enteric Tube, Stoma orIndwelling Catheter, Enteric Contrast as designated per enteric contrast guidelines 1 Each 0 midodrine (PROAMITINE) 5 mg tablet Take 10 mg by mouth three times daily. ondansetron orally disintegrating (ZOFRAN ODT) 4 mg disintegrating tablet Take 4 mg by mouth as needed. spironolactone (ALDACTONE) 25 mg tablet Take 12.5 mg by mouth once daily. guaiFENesin 200 mg/5 mL liqd Take by mouth as needed. (Patient not taking: Reported on 06/01/2022) dexAMETHasone (DECADRON) 4 mg tablet Take 5 tablets 12 and 6 hours prior to chemotherapy treatment.10 tablet 5 prochlorperazine (COMPAZINE) 10 mg tablet Take 1 tablet by mouth every 6 hours as needed. 30 tablet2 ondansetron (ZOFRAN) 8 mg tablet Take 1 tablet by mouth every 8 hours as needed for nausea/vomiting. 30 tablet 2 LORazepam (ATIVAN) 0.5 mg Take 1 tablet by mouth twice daily as needed for up to 14 days. 28 tablet0 acetaminophen (TYLENOL EXTRA STRENGTH) 500 mg tablet Take 2 tablets by mouth every 6 hours. 30 tablet 0 senna-docusate (SENNA WITH DOCUSATE SODIUM) 8.6-50 mg per tablet Take 1-2 tablets by mouth once daily. May increase or decrease as needed to have one soft bowel movement daily 30 tablet 0 lisinopril (ZESTRIL, PRINIVIL) 40 mg tablet Take 40 mg by mouth once daily. (Patient not taking: Reported on 06/01/2022) furosemide (LASIX) 20 mg tablet Take 20 mg by mouth twice daily. vit C/E/cuperic/zinc/lutein (EYE MULTIVIT-LUTEIN,C-E-CU-ZN, ORAL) Take by mouth. (Patient not taking: Reported on 06/01/2022) ferrous sulfate 325 mg (65 mg iron) tablet Take 1 tablet by mouth once daily. aspirin 81 mg chewable tablet Take 1 tablet by mouth once daily. 90 tablet 3 Current Facility-Administered Medications Medication Dose Route Frequency Provider Last Rate Last Admin perflutren lipid microspheres 1.3 mL in NaCl (PF) 0.9% 10 mL injection (DEFINITY) INTRAVENOUS DIRECTED PRN Ruddy Patricio, sodium chloride 0.9 % (flush) 10 mL (BD POSIFLUSH) 10 mL INTRAVENOUS DIRECTED PRN Ruddy Patricio DO perflutren lipid microspheres 1.3 mL in NaCl (PF) 0.9% 10 mL injection (DEFINITY) INTRAVENOUS DIRECTED PRN Nir Roth MD sodium chloride 0.9 % (flush) 10 mL (BD POSIFLUSH) 10 mL INTRAVENOUS DIRECTED PRN Nir Roth MD perflutren lipid microspheres 1.3 mL in NaCl (PF) 0.9% 10 mL injection (DEFINITY) INTRAVENOUS DIRECTED PRN Nir Roth MD sodium chloride 0.9 % (flush) 10 mL (BD POSIFLUSH) 10 mL INTRAVENOUS DIRECTED PRN Nir Roth MD Need for Follow up: Will follow up as needed Referred/Supervised by: Dr. Venkat PRINCE Billing Type: Initial Assess/15 min 2 units Billed Time: 30 minutes Signed by: Regina Westfall RD, LD documented in this encounterCleveland Clinic [facility] Miscellaneous Notes* Telephone Encounter - Maegan Murguia RN - 06/07/2022 9:59 AM EST CYCLE 1/DAY 1 POST TREATMENT CALL Today's date: June 07, 2022 Treatment Regimen: Carboplatin/Taxol C1D1 Date: 06/06/2022 Called patient to follow-up on symptom management. Spoke with patients daughter SYMPTOM ASSESSMENT Neuro: None CV/Resp: None GI/: None. Patient took compazine yesterday, denies nausea concerns. Daughter stated patient had an increased appetite yesterday which patient hasn't had much of an appetite for awhile. Per daughter she was eating like a horse. Discussed steroids with daughter and how most people have increased appetites after receiving steroids. Daughter will continue to monitor patients appetite and will encourageboost/ensures/breakfast carnation drinks if needed along the way to help maintain weight. Patient is meeting with air hammer operator tomorrow and daughter aware Regina will have great advice for helping maintain weight during treatment. Integument: None Activity: Patient reported unchanged from normal baseline. Pain: No=0 (pain 0 on a scale of 0-10). Fever: No Chills: No Any new referrals needed? No Reinforced CURRENT treatment education based on current and anticipated symptoms. Discussed port/line care and patient verbalizes understanding: Not Applicable Patient instructed to contact office or after hours Hematology/Oncology fellow for: temperature ? 100.4; questions or concerns. Patient verbalized understanding of when to seek medical attention and after hours number protocol. Maegan Murguia RN documented in this encounterCleveland Clinic [facility]03-07-[facility] History of Present illness Narrative* Ary Borden MD - 06/05/2022 2:40 PM EST TELEVISIT PROGRESS NOTE This is a telephone encounter initiated for an established patient, parent or guardian not originating from a related Evaluation & Management service provided within the previous 7 days nor leading to an Evaluation & Management service or procedure within the next 24 hours or soonest available appointment. Gynecologic Oncology [facility] Follow up Re: Ashley Alcantar [facility]#: [id number] Date of service: 06/05/2022 Dr. Brittani Rodriguez presents today for a follow-up televisit regarding carcinosarcoma compatible with cirilo kuo. Briefly, she is an 81 year old female who has a past medical history of Anemia, Aorticstenosis, CLL (chronic lymphocytic leukemia) (HCC), and Essential hypertension. She was initially referred for evaluation of pelvic mass, elevated CA 125, and ascites. Patient was seen by Dr. Brittani Antonio on 04/18/2022. HPI taken from Dr. Antonio's 04/18/2022 note: Patient noted lower abdominal pain in bilateral lower quadrants in January 2022 which continued and worsened into March leading to evaluation with her PCP and general surgeon which led to CT reviewed below. She was also told she had bilateral inguinal hernias. Taking tylenol extra strength 1-2times daily for her abdominal pain. She reports occasional nausea and loss of appetite but nothingsustained. Denies bloating or increasing abdominal girth. Denies changes in bowel or bladder habits, no constipation or diarrhea. TREATMENT HISTORY: Pelvic US 04/05/2022: FINDINGS: UTERUS: Anteverted. The uterus measures 5.9 x 4.7 x 2.7 cm. There is a large pedunculated fibroid on the left measuring 6.1 x 8.4 x 6.4 cm The endometrial stripe measures 3 mm in AP diameter which is within normal limits. The normal ovaries are not visualized due to bowel gas producing artifact FREE FLUID: Moderate IMPRESSION: Large pedunculated fibroid in the left adnexa with moderate ascites. No definitive evidence for ovarian mass however the ovaries are not visualized due to bowel gas producing artifact CT w/ IV contrast, chest/abdomen/pelvis 11/03/2021: From Results of report- ABDOMEN: The liver, gallbladder, spleen, and pancreas appear normal. The adrenal glands appear normal. Multiple bilateral renal cyst (largest measures 2.7 cm on the right and 4.2 cm and left Both kidneys are normal in size, shape, and density. There is no abnormal mass or hydronephrosis. PELVIS: There is no significant retroperitoneal adenopathy. No free fluid or free air within the abdomen or pelvis. Small bowel containing RIGHT inguinal hernia. Mild prominence of pelvic vasculature and gonadal veins. The bowel appears unremarkable on this non-GI contrast examination. The urinary bladder appears normal. There are scattered phleboliths within the deep pelvis. BONES: Diffuse osteopenia ASSESSMENT/PLAN per Dr. Antonio 04/18/2022- Ashley Alcantar is a 81 year old with a recently diagnosed pelvic mass upon work up for abdominal pain. 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 -We reviewed the pelvic mass imaging in detail and reviewed radiologic findings arguing for and against malignancy. Specifically, we discussed that on my comparison of most recent CT abdomen/pelvis 04/04/[address] chest/abdomen/pelvis from 11/03/2021 there is interval development of an 8cm non enhancing, heterogenous appearing, mass that appears anterior to the uterus and may represent an ovarian cystic mass and less likely a fibroid given is recent development despite ultrasound appearance consisted with solid components of the mass -We discussed that complex pelvic masses can be malignant in 5-7% of all cases but that given the appearance of her mass, my recommendation would be to proceed with removal for definitive pathologic evaluation. We discussed that not removing the mass could lead to spread of a cancer, increase in size of mass leading to worsening or new symptoms. -Role for surgical removal vs surveillance and risks and benefits of each was discussed. - Once removed, we discussed the 3 likely outcomes of frozen section and final pathology would be benign, borderline, and carcinoma. We reviewed that borderline tumors are not malignant, but require additional peritoneal and omental biopsies for staging to determine spread. We briefly discussed their risk for recurrence, mostly as borderline tumors in contralateral ovary (if not removed). We alsodiscussed staging lymphadenectomy, omentectomy, possible open surgery in the event of a carcinoma. # Preoperative Discussion: - We made a shared decision to proceed with exam under anesthesia, diagnostic laparoscopy, removal of pelvic mass, total laparoscopic hysterectomy and bilateral salpingoophorectomy, possible omentectomy and lymphadenectomy, possible blood transfusion and any other indicated procedure. With intraoper ative frozen section to guide need for omentectomy or lymphadenectomy. -We discussed the general recovery time frame and symptoms and the risks of the surgery, including but not limited to: bleeding requiring a transfusion, infection, VTE, injury to adjacent structures,pain, and poor healing/cosmesis. [ ] f/u T&S, tumor markers, CBC, RFP [ ] cardiac clearance from her Griddle Attendant, Ruddy Puri 04/05/2022 CA 125 290 04/18/2022 Tumor markers CEA 1.6 CA 125 474 CA 19-9 4.5 04/19/2022 Consult: 81yo female presents today with her daughter for a second opinion regarding pedunculated fibroid, elevated CA 125, and ascites. - Reports mild abdominal distention. - Daughter reports her mother underwent TF MALCOLM with 25 mm Portico NG on 12/14/2021. 02/23/2022 LVEF65%. - 04/05/2022 elevated CA 125 at 290 - 04/18/2022 tumor markers CEA at 1.6; CA 125 at 474; CA 19-9 at 4.5 - Reviewed evidence of ascites on 04/04/2022 CT scan which is new compared to her 11/03/2021 scan. A low-density mass anterior to the uterus measuring 7.2 x 7.9 x 6.3 cm which has increased in size when compared to previous imaging. Discussed a plan for ultrasound guided paracentesis performed in office today as long as there is a safe window to draw off the fluid. Otherwise we will schedule her for a CT guided paracentesis. Plan to send the fluid off for cytologic and protein staining studies. Patient agreed to proceed and consent was obtained. Patient tolerated the procedure well. Not much fluid drawn from today's paracentesis. Plan to send the collected fluid off for cytology and put in an order for CT guided paracentesis in case the submitted fluid is not satisfactory for evaluation. - Discussed a plan to initiate neoadjuvant systemic chemotherapy if her paracentesis studies come back showing evidence of malignant cells and gynecologic primary. The patient can pursue chemotherapyin [place]. If she has favorable response to chemotherapy then we will plan for interval debulking s urgery which will be less extensive as compared to primary cytoreductive surgery. Reviewed an article cited below discussing about 30-day mortality after primary cytoreductive surgery for advanced ovarian cancer in the elderly. A copy of the study was provided to her daughter. - Few tiny (< 3 mm) pulmonary nodules on 11/03/2021 CT scan. Plan to obtain CT chest now for re-assessment. 04/19/2022 US guided paracentesis (30 cc hazy colorless fluid) ABDOMINAL FLUID Negative for malignant cells 04/27/2022 CT guided paracentesis (1400 cc cloudy yellow fluid with material) ABDOMINAL FLUID Negative for malignant cells 05/03/2022 Televisit: The first phone call was made to the patient's daughter. Discussed that the cytologic studies of her paracenteses were negative for malignant cells but lab showed elevated WBC which was consistent with her history of CLL. No growth on culture. Daughter reports her mother is feeling better after the paracenteses but the ascites is starting to come back already. Discussed a planfor a laparoscopy and biopsies with possible removal of ovaries and tubes. Daughter reports her mother will be leaving to [place] this Saturday to celebrate her sister's birthday and plan to come back next Saturday. Reviewed a plan for surgery on 05/16. As daughter does not have power of consumer attorney,she can't sign the consent form for her mother's surgery. Another phone call was made to the patient. Reviewed the plan for surgery and an informed consent was obtained over the phone today. Thirty-day mortality after primary cytoreductive surgery for advanced ovarian cancer in the elderly. Nohemy MM, Zakia BA, Nicki RG, Nelia DR, Pablo HJ. Obstet Gynecol. 2010;118(3):537-547. 05/07/2022 [facility] ED 81-year-old female history of aortic valve replacement (anticoagulated with aspirin), CLL, presents today complaints of abdominal distention and ascites. Patient is currently visiting from [place] and will be returning to [place] in 5 days. Approximate 10 days ago she had a paracentesis. She would like to have her paracentesis performed and that she can follow-up at her home. She denies any chest pain or shortness of breath. No vomiting or diarrhea. No abnormal bleeding. No jaundice. No other complaints. Left Prior to Treatment Completion 05/16/2022 Surgery - Diagnostic laparoscopy, peritoneal biopsies, and drainage of ascites PREOPERATIVE DIAGNOSIS: Ascites and pelvic mass. POSTOPERATIVE DIAGNOSIS: Ascites and pelvic mass. SPECIMENS: Omental biopsy and peritoneal cytology. FINDINGS: 4L ascites. Sub-cm nodules of the omentum, miliary. 3cm friable nodule of the sigmoid colon, biopsied and sent for frozen - poorly differentiated carcinoma. Stage IIIB PELVIC FLUID Atypical cells present. FINAL DIAGNOSIS A and B. 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 Diagnosis Comment Sections show fragments of high-grade malignant neoplasm with spindled and epithelioid features (predominantly spindled). Immunohistochemical stains are performed to assist in the diagnosis. Cytokeratin AE1/3, CAM5.2, FLORY, and CK7 are positive in the epithelioid component. P53 shows an aberrant staining pattern (null), and p16 is diffusely and strongly positive in both spindled and epithelioid components. WT1 and SMARCA4 are positive, Roscoe 8 and CD10 stains are focal and weak. The tumor cells are negative for desmin, HMB45, ALK, SMA, CDX2, GATA3, CK20, ER and LA. MMR is proficient. 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 The immunoprofile is not specific but compatible with m llerian origin if the possibility of other primary sites is excluded. Clinical and radiographic correlation is recommended. This case has been reviewed at the gynecological pathology consensus meeting with Blanca Ramos, Naheed Marmolejo, Giorgio, and Neris with concurrence. Mismatch Repair Protein Immunohistochemistry Results: MLH1: Normal/Intact Nuclear Expression PMS2: Normal/Intact Nuclear Expression MSH2: Normal/Intact Nuclear Expression MSH6: Normal/Intact Nuclear Expression NEGATIVE for HER2 (ERBB2) Expression Score: 0 05/21/2022 Televisit with Samra Cee APRN.STORE LOSS PREVENTION MANAGER ASSESSMENT: 81 year old female with ascites and pelvic mass s/p Diagnostic laparoscopy, peritoneal biopsies, and drainage of ascites on 05/16/22. PLAN: 1. Patient informed that final pathology is still in process~ daughter present for visit today, patient request that our office call her daughter Giovanna with the pathology results. 2. Postop restrictions reviewed. 3. Patient informed that she has a post op follow up apt scheduled with Dr. Borden on 06/07/22. 05/25 - 05/31/2022 [facility] admission - HYPOXIA, MALIGNANT PLEURAL EFFUSION, MALIGNANT Hospital Course Procedures (Thoracentesis x2) Hospital Course: 81-year-old with history of CLL, TAVR November 2021, pelvic mass with recent laparoscopic biopsy at [facility] 05/16, hypertension, CKD stage IIIb presented 05/24 with shortness of breath and cough for 6 days. She had been seen in her PCPs office on 05/19 and given Zithromax and guaifenesin andwas sent home, she had been able to ambulate and maintain pulse ox at 93% on room air. Due to worsening symptoms she was sent to ED. She had an O2 sat of 88% on room air, exertional dyspnea, BP 100/65, chest x-ray with a large right pleural effusion and she had ultrasound-guided thoracentesis on 05/24 with a 1700mL mildly bloody fluid. She also had a paracentesis done during laparoscopic biopsy and requires weekly paracenteses and already had 3 in the month of May 2022. Additional history of CLL with last admission April 2022. While she was admitted there was concern for reaccumulated fluid which was confirmed and repeat thoracentesis done on 05/28 with 2 L of serosanguineous fluid out. O2 needs had decreased and she was doing better. Was evaluated to see if she needed further paracentesis and it was deemed she did not. Did have low blood pressure and was started on midodrine and was given albumin several times, once the spacing of the midodrine was adjusted this did help significantly. Initially did well on diuretics but after low BP these were decreased. Her hospital stay was complicated by RINA which resolved. On the dayshe was planned to be discharged 05/30 she reported increased dry cough and had some dullness that increased on the right side of her chest. Chest x-ray showedreaccumulation of effusion and pulmonology consulted. Review of external records showed her omental biopsy results as poorly differentiated carcinoma stage IIIb. Discussed with pulmonolog y and it was felt repeat thoracentesis would not be helpful as the fluid will continue to accumulate until the underlying malignancy was addressed and as long she was not overly symptomatic further thoracentesis could be done on an outpatient basis as needed. Dr. Martínez did talk to her cancer doctor, Dr. Patricio, who is aware of her diagnosis and present situation and set up an appointment for 06/01 at 8:30 AM. Prior to discharge she was ambulated to assess for home O2 needs. On day of discharge she had a little bit of nausea in the morning which she accounted to her room being too warm and this did improve and she was able to tolerate food and wantedto go home. Still some abdominal fullness but not overtly changed from the day prior. Denied other new or acute complaints. 05/30/2022 CXR IMPRESSION: Progressive increase in size of the right pleural effusion. 06/01/2022 CA 125 236 HEALTH MAINTENANCE: Last pap: >15 years ago Last HPV: >15 years ago Last mammogram: Maybe >10 years ago Last colonoscopy: Has never had -- no history of CRC screening, denies melena or bloody stools SUBJECTIVE/INTERVAL HISTORY: Patient is feeling better after her thoracentesis this morning. She is scheduled for a paracentesisthis . She denies any shortness of breath, nausea, vomiting, constipation, problems urinating, unexplained weight loss, or vaginal bleeding. OBJECTIVE: Deferred for televisit IMPRESSION/PLAN: 06/05/2022 Dx: carcinosarcoma compatible with m llerian origin Patient and her daughter present for a 15 minute televisit. Daughter reports that her mother underwent a thoracentesis this morning at [facility] during which 2.2 L of fluid was drawnoff. Patient is feeling much better now. She could breath better. She is scheduled for a paracentesis this . Reviewed the pathology of her omental biopsies showing carcinosarcoma which is more aggressive than the common serous carcinoma. Informed them that I spoke with Dr. Patricio today to review my recommendation for a frequent lower dose of chemo regimen with D1 D8 taxol 60 mg/m2 and D1 carboplatin AUC of 5. Her response to treatment will be evaluated with interval CA [address] scan will be obtained after 3 cycles. Depending on her response, we will evaluate her for interval debulking surgery accordingly. Patient and daughter expressed understanding and agreement with the plan. Plan to have patient follow up here in 9 weeks. ATTESTATION: By signing my name below, Iris Morales, attest that this documentation has been prepared under the direction and in the presence of Ary Borden MD. Electronically signed: Jeremy Frances, June 05, 2022 4:14 PM Provider Attestation: Ary Morales MD, personally performed the services described in this documentation. All medicalrecord entries made by the jeremy were at my direction and in my presence. I have reviewed the chart and discharge instructions (if applicable) and agree that the record reflects my personal performance and is accurate and complete. Ary Borden MD June 06, 2022 4:31 AM I have confirmed and edited as necessary, the history of the present illness (HPI). Interval changes in the history of present illness are noted. I have confirmed and edited as necessary, the PFSH and ROS obtained by others. I saw the patient and personally participated in the joseph components and agree with the documented findings and plan. Sincerely, Ary Borden M.D. Reviewed and corrected by Ary Borden M.D. The previous note written by Dr. Borden dated 05/03/2022 was copied forward and the necessary changes were made. CC: Vern Bernardo MD (PCP) Dr. Ruddy Patricio documented in this encounterCleveland Clinic [facility]03-07-[facility]23 Miscellaneous Notes* Telephone Encounter - Hayley Felix LPN - 06/05/2022 8:40 AM EST Spoke with Giovanna( pts. Daughter) informed in looking at the schedule we have no openings until Saturday to start her mothers treatment. She is scheduled for televisit today with Dr. Borden and we wanted to be sure he didn't want to do the surgery first. Daughter informed that Dr. Borden stated the surgery will be done after pt. Has had her chemo treatment. Daughter aware that if we get an opening for chemo prior to Sunday 06/11 we will contact her. Daughter also stated that they were told the fluid in her lungs would decrease after she starts chemo and that is why they wanted to get started PHUONG. Hayley Felix LPN documented in this encounterCleveland Clinic [facility]03-06-2023 Miscellaneous Notes* Telephone Encounter - Alexandra Chavez RN - 06/04/2022 3:19 PM EST Called [facility] and spoke to Brynn FINNEY who is familiar with this family. After discussing the patient's symptoms, Brynn voiced that she could possibly get patient in at 0800 on 06/05. An order for a therapeutic Thoracentesis was faxed to [facility] today 06/04 at [phone]. Brynn voices that she will call Giovanna and make a plan for tomorrow 06/05, but will direct her to ER if warranted. Appreciative of the team effort. Alexandra Chavez RN Gyn/Onc Chief Of Service documented in this encounterCleveland Clinic [facility]03-06-2023 Miscellaneous Notes* Telephone Encounter - Alexandra Chavez RN - 06/04/2022 2:52 PM EST Returned patient's daughter's Giovanna's call about her concerns regarding the patient receiving athoracentesis. Giovanna voices that she would like to bring the patient to receive a thoracentesistomorrow 06/05 to [facility] when she has to bring the patient for her 230 pm appointment. Giovannaalsromel voices that maybe Chris can get her in today and asked that a standing order be sent to Chris. When the patient's symptoms were reviewed, it was found that patient was discharged home with 02 a week ago and is currently SOB while on 02. Giovanna also voiced that patient's right side of her chest is filling up and so is her abdomen. Advised Giovanna that seeing as though her mom is symptomatic that she may worsen overnight. It was advised to her not to wait for the appointment tomorrow and to take patient to the ER. Giovanna voices again that maybe Chris can get her in today and asked that a standing order is sent to Chris. Discussed with Giovanna that I will call the [facility] RN to speak to her about an appointment for thoracentesis. [phone]. Giovanna appreciative of call. Alexandra Chavez RN Gyn/Onc Chief Of Service documented in this encounterCleveland Clinic [facility]03-06-2023 Miscellaneous Notes* Telephone Encounter - Maegan Murguia RN - 06/04/2022 11:47 AM EST Daughter aware we received [employer] message from 06/01 and our office will work on getting her scheduled sooner if possible. Maegan Murguia RN * Telephone Encounter - Elizabeth Hester Pss - 06/04/2022 9:04 AM EST Daughter calling asking if there is anywhere she can take her mother to in order to begin chemo sooner than next June 11. Please advise and call daughter. documented in this encounterCleveland Clinic [facility]03-06-2023 Nurse Note* Maegan Murguia RN - 06/04/2022 11:46 AM EST This visit was completed via telephone. Maegan Murguia RN * Maegan Murguia RN - 06/04/2022 11:42 AM EST ONCOLOGY PATIENT EDUCATION NOTE TOPIC: Chemotherapy, Medications: Carboplatin/Taxol/Herceptin READINESS TO LEARN: COGNITIVE ABILITY: Alert and oriented MOTIVATION TO LEARN: Interested FAMILY SUPPORT: High - Very involved in pt care INSTRUCTION PROVIDED TO: Patient and family member INSTRUCTION PROVIDED BY: Nurse Coordinator PATIENT LEARNS BEST BY: Multiple Methods FACTORS AFFECTING LEARNING: None PHYSICAL LIMITATIONS AFFECTING LEARNING: None LEARNING RESPONSE DIAGNOSIS: Uterine carcinosarcoma METHOD OF INSTRUCTION: Individual instruction Written instruction - handouts Verbal instruction PATIENT/FAMILY RESPONSE: Verbalizes understanding of: CHEMOTHERAPY-Regimen, toxicity and side effects FOLLOW UP PLAN: Patient instructed to call with any further issues Recommend - Recommend continued instruction and follow up as directed Follow up phone call. Contact information given. SUPPLEMENTAL MATERIAL: Written material was provided at this visit with the following information: - Chemotherapy education was provided by a pharmacist YES - Side effect management information was provided/discussed including but not limited to: abdominaldiscomfort, anemia, appetite changes, arthralgia, bowel habit changes, diet, electrolyte disturbances, fatigue, hair loss, hypersensitivity reaction, infection, mouth hygiene, mucositis, myalgia, naus ea/vomitting, neuropathy, neutropenia, peripheral neuropathy, rash, shortness of breath, skin changes, taste changes, thrombocytopenia YES - Provided important phone numbers and contacts during and after hours. YES - Provided information on symptoms that require immediate assistance. YES - Provided Chemotherapy when to call handouts YES - Preventing infection. YES - Treatment schedule and confirmation of appointment times. YES - Available support groups. YES - The importance of contraception during the course of chemotherapy YES - Neutropenic fever protocol discussed with patient, which included the importance of reporting anyfever of 100.4F (38.0C) or greater to the healthcare team as noted on the provided wallet card and/or magnet. YES Time Spent: 60 minutes REFERRAL (RECOMMENDATION): Nutrition and Social Work Maegan Murguia RN * Maegan Murguia RN - 06/04/2022 11:42 AM EST Chief Of Service Pre Chemo Patient identified by name and date of . YES Confirmed date and time for chemotherapy ? YES Other appointments (labs, imaging) discussed? YES Discussed where to park (validation consultant), charge for parking YES Discussed where to report (building/floor) YES Any pre-medications ordered? YES Described the infusion room and what to expect. (What to wear, what to bring [iPad, books] amount of time treatment can take, meals and CC options for food) YES Note: Discussed whether the patient can eat prior to labs and treatment. YES Who is driving you to and from treatment? Daughter Discussed why it is important to bring someone with you. Yes, for the first treatment Resources discussed (music therapy, Art therapy, pet therapy, etc.) NO Education on chemotherapy (drug, side effects) discussed and that the patient will be receiving a C1D1 call within 7 days of treatment. YES Other topics discussed, interventions needed: Maegan Murguia RN documented in this encounterC[facility] Miscellaneous Notes* Telephone Encounter - Gloria Barreto LPN - 06/04/2022 7:[address] Sandy Harvey tried to get her in sooner here but there is nothing available. Gloria Barreto LPN documented in this encounterC[facility]03[facility] Miscellaneous Notes* Telephone Encounter - Candice Ford RN - 06/01/2022 11:52 AM EST Patient scheduled for 06/11 (first available). Candice Ford RN * Telephone Encounter - Gely Shawn - 06/01/2022 10:49 AM ESTSummary: AVS 06/01/22 Check out comments: Labs today. Chemotherapy teaching. Nutrition consult. Echo when able. Does not have to be before chemotherapy start. CBC/CMP/Hep remote/CA125 today. Straight back for first cycle. OV/CBC/CMP/Hep remote/CA125 for cycle #2. Labs - done Chemo ED - 06/14 Nutrition - Echo - 06/08 Nurse manager branch is working on the START documented in this encounterC[facility]03[facility] Miscellaneous Notes* Telephone Encounter - Ruddy Patricio DO - 06/01/2022 10:12 AM EST Orders filed. Ruddy Patricio DO * Telephone Encounter - Hayley Felix LPN - 06/01/2022 10:03 AM EST Please sign orders so pt. Can get labs today. Hayley Felix LPN documented in this encounterC[facility]03-[facility] Miscellaneous Notes* Telephone Encounter - Maegan Murguia RN - 06/01/2022 10:10 AM EST Met with patient and introduced myself. Patient was given a My Journey binder with chemocare information, office contact information, thermometer, and additional chemotherapy resource booklets. Patient aware this nurse will review on scheduled appointment date. Maegan Murguia RN documented in this encounterC[facility]03[facility] History of Present illness Narrative* Ruddy Patricio, DO - 06/01/2022 8:20 AM EST Oncologic problem(s): 1) CLL. HPI: The patient is an 81-year-old female has a past medical history significant for hypertension and aortic stenosis. She had a CBC on 06/05/2021 as part of work-up for cataract surgery. She was incidentally found to have a white count of 25,900. Hemoglobin was 11.7 g/dL and the platelet count was 229,000. Differential significant for an absolute lymphocyte count of 20,850. Flow cytometry in mid May identified 2 populations of CD5 positive, CD23 positive monoclonal B cells. 1 representing 98% was lambda light chain restricted and the other 2% was kappa light chain restricted. Chemistry panel revealed a normal total bilirubin, AST, ALT and alkaline phosphatase. Total protein, albumin and globulin levels were normal. Serum creatinine was 1.0 mg/dL. Serum calcium was 9.2 mg/dL. As of initial visit: She has no complaints today. She is active. 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 She lives independently and is capable of all ADLs and IADLs. She has noticed some increase inshortness of breath over the last several weeks. She is scheduled to see a plastic die maker apprentice in [place] history of aortic stenosis. She has not had any unusual bleeding or unexplained bruising. 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 Didn't feel much different. Presents for ongoing oncologic management. Interim history: She was seen by her PCP on 04/04/2022 with complaints of change in bowel habits associated with pain and pressure in the lower abdomen. She was referred to general surgery. On exam she was observed to have a right inguinal hernia most noticeable when she stood upright. It was easily reducible. In themedial right groin she had a somewhat mobile 1/2 cm subcutaneous nodule that was not reducible. Limited ultrasound suggested was a cystic lesion with some internal debris. Unclear whether it extendedsubfascially. An abdominal pelvic CT scan on 04/04/2022 revealed a low-density mass anterior to the uterus that measured 7.2 x 7.9 x 6.3 cm potentially representing a large exophytic fibroid. There was free fluid observed in the upper abdomen and pelvis. Small bilateral inguinal hernias were also noted slightly larger on the right with fluid extending into the hernia sacs. Multiple varices were observed in the pelvis potentially representing pelvic congestion syndrome. Pelvic ultrasound 04/05 demonstrated a large pedunculated fibroid in the left adnexa with moderate ascites. There was no definitive evidence for an ovarian mass however the ovaries were not visualized due to bowel gas producing artifact. Patient was evaluated by Dr. Borden at [facility]. Radiographic imaging was obtained. CT chest 04/25 demonstrated upper abdominal ascites with scarring at the lung apices more prominent on the right. There were small bilateral axillary lymph nodes and mild scarring of the lung apicesmost prominent on the right. Patient underwent diagnostic laparoscopy, peritoneal biopsies and drainage of ascites on 05/16/2022 at [facility] by Dr. Ary Borden. 4 L of ascites was aspirated during the procedure. 3 of which were submitted for cytology. A friable mass was identified in the pelvis adherent to the sigmoid colon and this was easily biopsied as it was quite friable. Frozen section of the mass demonstrated poorly differentiated carcinoma. Pathology: A and B. 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 Mismatch repair (MMR) interpretation: Proficient (microsatellite stable) Results Mismatch Repair Protein Immunohistochemistry Results: MLH1: Normal/Intact Nuclear Expression PMS2: Normal/Intact Nuclear Expression MSH2: Normal/Intact Nuclear Expression MSH6: Normal/Intact Nuclear Expression A - PELVIC FLUID. - ascities Atypical cells present. Patient had 1 visit to the [facility] ED on 05/20. Admitted to [facility] after saw PCP 05/24/2022. Patient had a right-sided thoracentesis ultrasound-guided on 05/24/2022. Approximately 1750 mL of blood-tinged fluid was drained. Cytology was negative for malignant cells. She underwent a second right sided ultrasound-guided thoracentesis on 05/28/2022. 2060 mL of blood-tinged fluid was drained. Cytology was not performed. An ultrasound of the abdomen on 05/29 did not identify a significant amount of ascites. Discharged yesterday. Decreased appetite. Occasional nausea. Bowels moved yesterday. No black or bloody stools. Bladder--can void to completion. Denies pain. PMH, medications and allergies personally reviewed by me today. Any changes documented in appropriate section. ROS: Constitutional: Denies episodes of fever and night sweats. Not significantly fatigued. Normal appetite. Neuro: Denies VELEZ, vertigo, dizziness and imbalance. Denies symptoms of neuropathy. HEENT: No recent change in voice, vision or hearing. Resp: Denies cough, wheeze and hemoptysis. Denies shortness of breath at rest. CVS: Denies exertional chest pain, PND, orthopnea and LE edema. GI: Denies dysgeusia. Denies symptoms of stomatitis. Denies dysphagia and odynophagia. Denies reflux, n/v, change in bowel habits and abdominal pain. : Denies dysuria or gross hematuria. No symptoms of bladder outlet obstruction. Endo: Denies hot flashes. Denies polyuria and polydipsia. Denies heat and cold intolerance. Musculoskeletal: Denies bone, back, joint and muscular pain. Derm: Denies rash. Denies jaundice and diffuse pruritis. Heme: Denies unusual bleeding and unexplained bruising. Psych: Normal mood. PHYSICAL EXAM: Vitals: Blood pressure 112/64, pulse 71, temperature 36.4 C (97.5 F), weight 52.6 kg (116 lb), [id number] %. Well-appearing and in no acute distress. EYES: Sclerae are anicteric bilaterally. LYMPHATIC: There is no palpable cervical, supraclavicular, axillary or inguinal adenopathy. RESPIRATORY: Inspiratory breath sounds are of normal intensity in all sweet. No rales, wheezes or rhonchi. CARDIOVASCULAR: Rhythm is regular. ABDOMEN: The abdomen is nondistended. No organomegaly. No tenderness. Extremities: No swelling or edema. SKIN: No jaundice or rash. No petechiae. LABS: Component Latest Ref Rng & Units 12/15/2021 12/25/2021 WBC 3.70 - 11.00 k/uL 15.76 (H) 25.62 (H) RBC 3.90 - 5.20 m/uL 3.36 (L) 3.42 (L) Hemoglobin 11.5 - 15.5 g/dL 9.8 (L) 10.1 (L) Hematocrit 36.0 - 46.0 % 30.7 (L) 31.6 (L) MCV 80.0 - 100.0 fL 91.4 92.4 MCH 26.0 - 34.0 pg 29.2 29.5 MCHC 30.5 - 36.0 g/dL 31.9 32.0 RDW-CV 11.5 - 15.0 % 13.2 13.6 Platelet Count 150 - 400 k/uL 109 (L) 173 MPV 9.0 - 12.7 fL 10.0 9.3 NRBC /100 WBC 0.0 Absolute nRBC <0.01 k/uL <0.01 Neut% % 17.0 Abs Neut (ANC) 1.45 - 7.50 k/uL 2.68 Lymph% % 83.0 Abs Lymph 1.00 - 4.00 k/uL 13.08 (H) [place]% % 0.0 Abs [place] <0.87 k/uL 0.00 Eosin% % 0.0 Abs Eosin <0.46 k/uL 0.00 Baso% % 0.0 Abs Baso <0.11 k/uL 0.00 Platelet Estimate Decreased Red Cell Morph Reviewed: see results of individual morphologies Ovalocytes Few DTYPE Manual ASSESSMENT/PLAN: (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 -Unclear if there is a plan for upfront surgery but certainly she would require chemotherapy at some point in her disease course. I recommended carboplatin and paclitaxel with the possible addition of trastuzumab based on her to testing. I discussed the natural history, treated course, and prognosis of stage IIIB with the patient and daughter. Explained goals of care are prolongation of survival and palliation of symptoms. Also discussed the rationale, logistics, potential risks (including but not limited to alopecia, infusion reactions, neuropathy, cytopenias, fatigue, nausea and vomiting, diarrhea, infections and the small potential for as a consequence of severe toxicity/complications of therapy), benefits and alternatives, as well as the personnel involved in the administration of carboplatin and paclitaxel with potential addition of trastuzumab. I answered her questions in detail and she verbalized understanding and agreed with the recommended therapy. Please see the electronic consent document for details of doses and schedule. -Discussed plan with career services manager. Plan: -CBC/CMP/Hep remote/CA125 today. -Chemotherapy teaching. -Nutrition consult. -Echo when able. Does not have to be before chemotherapy start. -Straight back for first cycle. -OV/CBC/CMP/Hep remote/CA125 for cycle #2. -Plan to begin treatment next Saturday. Patient has appointment with Dr. Borden on 06/04. We will proceed with treatment on Saturday if he agrees with the plan. (C91.10) CLL (chronic lymphocytic leukemia) (HCC) Assessment: -Incidentally diagnosed with CLL when establishing medical care for need for cataract surgery. She was also diagnosed with aortic stenosis. -Again discussed indications for treatment of CLL. She has no clear indication at this point. Plan: -Routine monitoring throughout chemotherapy. Portions of this documentation were copied and pasted from previous office visit notes in order to provide a cohesive continuity of the history. The note has been reviewed and edited and updated as necessary. I spent a total of 60 minutes on the date of the service which included preparing to see the patient, [id number] patient care, completing clinical documentation, obtaining and/or reviewing separately obtained history, performing a medically appropriate examination, counseling and educating the pat ient/family/caregiver, ordering medications, tests, or procedures, communicating with other HCPs (not separately reported), independently interpreting results (not separately reported), communicatingresults to the patient/family/caregiver, and care coordination (not separately reported). Ruddy Patricio DO documented in this encounterC[facility]03-02-[address] Hester [facility] May 31, 2022 2:15pm Note Date/Time May 31, 2022 2:06 pm [facility] Medical Records Department [address] [place] [address] Discharge Summary 05/31/22 1359 MR#: [id number] Acct: [id number] Name: KATHARINEASHLEY A Rep #:[id number] : 1940 81 From: Piedad Hester MD PCP: Dr. Vern Bernardo MD Status:ADM IN Location: [place] [address]1 Providers Date of Admission: 05/25/22 Date of Discharge: 05/31/22 Primary Care Physician: Dr. Vern Bernardo MD Consultations 05/30/22 11:04 Consult: Analysis Specialist / Pulmonary Medicine Routine Consulting Provider: Pulmonary Medicine paula [place] Reason for Consult: recurrent R pleural effusion despite thoracentesis x2 EMERGENT Consult: No MD Notified: Yes Date Notified: 05/30/22 Time Notified: 11:04 Method of Notification: Moses spoke with Mauricio Reason For Visit: HYPOXIA, MALIGNANT PLEURAL EFFUSION, MALIGNANT Diagnosis Discharge Diagnosis (1) Bilateral pleural effusion: Status: Acute Code(s): J90 - Pleural effusion, not elsewhere classified (2) Pelvic mass: Status: Acute Code(s): R19.00 - Intra-abdominal and pelvic swelling, mass and lump, unspecified site Plan #Shortness of breath with mild hypoxia secondary to bilateral pleural effusions right greater than left #Ascites in setting of poorly differentiated carcinoma stage IIIb after omental biopsy at [facility] last month #Hypotension #Aortic stenosis/AI status post TAVR November 2021 #RINA resolved #CKD stage IIIb #CLL Medications at Discharge Home Medications aspirin 81 mg tablet,delayed release 81 mg PO DAILY #1 TAB 09/14/21 ferrous sulfate 325 mg (65 mg iron) tablet 325 mg PO QODAY 01/29/22 atorvastatin 20 mg tablet 20 mg PO QHS CHOLESTEROL 04/28/22 guaifenesin 100 mg/5 mL oral liquid 200 mg (10 mL) PO Q4H PRN cough #200 mL 05/19/22 escitalopram oxalate 5 mg tablet (Lexapro) 5 mg PO DAILY #30 tabs 05/21/22 furosemide 20 mg tablet 20 mg PO DAILY #180 tabs 05/31/22 midodrine 5 mg tablet 10 mg PO TID 30 days #180 tabs 05/31/22 spironolactone 25 mg tablet 12.5 mg PO DAILY 30 days #15 tabs 05/31/22 Hospital Course Procedures - (Thoracentesis x2) Summary of Care Provided Minutes Spent on Discharge: 40 Hospital Course: 81-year-old with history of CLL, TAVR November 2021, pelvic mass with recent laparoscopic biopsy at [facility] 05/16, hypertension, CKD stage IIIb presented 05/24 with shortness of breath and cough for 6 days. She had been seen in her PCPs office on 05/19 and given Zithromax and guaifenesin andwas sent home, she had been able to ambulate and maintain pulse ox at 93% on room air. Due to worsening symptoms she was sent to ED. She had an O2 sat of 88% on room air, exertional dyspnea, BP 100/65, chest x-ray with a large right pleural effusion and she had ultrasound-guided thoracentesis on 05/24 with a 1700mL mildly bloody fluid. She also had a paracentesis done during laparoscopic biopsy and requires weekly paracenteses and already had 3 in the month of May 2022. Additional history of CLL with last admission April 2022. While she was admitted there was concern for reaccumulated fluid which was confirmed and repeat thoracentesis done on 05/28 with 2 L of serosanguineous fluid out. O2 needs had decreased and she was doing better. Was evaluated to see if she needed further paracentesis and it was deemed she did not. Did have low blood pressure and was started on midodrine and was given albumin several times, once the spacing of the midodrine was adjusted this did help significantly. Initially did well on diuretics but after low BP these were decreased. Her hospital stay was complicated by RINA which resolved. On the dayshe was planned to be discharged 05/30 she reported increased dry cough and had some dullness that increased on the right side of her chest. Chest x-ray showedreaccumulation of effusion and pulmonology consulted. Review of external records showed her omental biopsy results as poorly differentiated carcinoma stage IIIb. Discussed with pulmonology and it was felt repeat thoracentesis would not be helpful as the fluid will continue to accumulate until the underlying malignancy was addressed and as long she was not overly symptomatic further thoracentesis could be done on an outpatient basis as needed. Dr. Martínez did talk to her cancer doctor, Dr. Patricio, who is aware of her diagnosis and present situation and set up an appointment for 06/01 at 8:30 AM. Prior to discharge she was ambulated to assess for home O2 needs. On day of discharge she had a little bit of nausea in the morning which she accounted to her room being too warm and this did improve and she was able to tolerate food and wantedto go home. Still some abdominal fullness but not overtly changed from the day prior. Denied other new or acute complaints. Discharge instructions as follows: DISCHARGE INSTRUCTIONS PLEASE READ *Please take this with you to your next doctors appointment* -You have an appointment with Dr. Patricio tomorrow 06/01/2022 at 8:30 AM. Please call his office for any questions or concerns. -Due to the fluid building up in your belly and your lung you were started spironolactone in addition to your furosemide which are water pills which you will take daily. Your furosemide was decreased to 20 mg daily because of your blood pressure and you will take 12.5 mg of spironolactone -Midodrine and spironolactone have been sent to your preferred pharmacy on file,[facility] in [place] -Your lisinopril was held due to your low blood pressure -Would recommend weighing yourself every morning and keeping a log of this, if you gain more than 3 pounds in 24 hours please call your primary provider -You had low blood pressure during your admission and was started on a medicine called midodrine, you will be discharged with this and you will take it 3 times daily. Would recommend taking these as close to 8 hours apart as possible. -You will be discharged with home oxygen, please use this as directed. -- Would recommend lab work (BMP) to check your potassium in 3 to 5 days throughyour primary care physician's office to assess if your need to restart potassiumsupplementation. Given that spironolactone was started as likely will not need further supplementation. Please call their office upon discharge to obtain order for lab work. -Please call your primary care provider's office upon discharge to schedule a hospital follow up within 1 week. -For any concerning signs or symptoms please call 911 or proceed to the nearest emergency department Physical Exam Narrative General: Alert, oriented HEENT: Atraumatic, normocephalic Eyes: Anicteric, normal conjunctiva, extraocular movements grossly intact Neck: Supple Respiratory: Diminished breath sounds right middle and lower lobes, normal respiratory effort Cardiovascular: Regular rate and rhythm GI: Soft, slight tender in lower abdomen, is full but not firm Extremities: Trace edema Musculoskeletal: Moving all extremities Neuro: No overt focal neurological deficits Skin: No rashes appreciated Psych: Cooperative Weight / BMI Weight Weight: 53.4 kg Body Mass Index (BMI) 24.5 ABG / Lab / Microbiology Data Result Diagrams: 05/31/22 09:25 05/31/22 09:25 Laboratory: Laboratory Results - last 24 hr 05/30/22 05:50: Diff Path Review Reviewed 05/31/22 09:25: WBC 58.1 H*, RBC 3.51 L, Hgb 9.7 L, Hct 31.7 L, MCV 90.3, MCH 27.6, MCHC 30.6 L, RDW Std Deviation 54.0 H, RDW Coeff of Zack 16.8 H, Plt Count 399, MPV 8.8, Immature Gran % (Auto) 0.300, Neut % (Auto) 14.4 L, Lymph % (Auto)82.7 H, [place] % (Auto) 1.6, Eos % (Auto) 0.8, Baso % (Auto) 0.2, Absolute Neuts (auto) 8.4 H, Absolute Lymphs (auto) 48.04 H, Nucleated RBC % 0, Differential Comment SCANNED, Diff Path Review Reviewed, RBC Morphology NORM C+C 05/31/22 09:25: Sodium 137, Potassium 5.0, Chloride 98, Carbon Dioxide 32.0, Anion Gap 7, BUN 28 H, Creatinine 1.17 H, Estim Creat Clear Calc 31.25, Est GFR (MDRD) Af Amer 57 L, Est GFR (MDRD) Non-Af 47 L, BUN/Creatinine Ratio 23.9 H, Glucose 103, Calcium 8.0 L Radiography Diagnostic Testing: Radiology Impression Chest X-Ray 05/30/22 10:20 IMPRESSION: Progressive increase in size of the right pleural effusion. Electronically Signed: Mahad Rojas MD at 15:30 EST , D/C Instructions Discharge Diet: - (Would recommend adding Ensure or boost 3 times daily with meals) Meaningful Use Info Meaningful Use Diagnoses (Choose all that apply): None applicable Discharge Plan Admission Admit Date/Time: 05/25/22 15:08 Primary Reason for Your Visit: Shortness of breath and cough for 6 days Attending Provider: Piedad Hester Primary Care Provider: Vern Bernardo Consulting Providers: Sai Lee ; Khari Oliva ; Pravin Martínez ; Bud Hanna ; Wade Marcus ; Kane Borges ; Nani Crowder SUPERVISOR [employer] Instructions Patient Instructions: VICTORIA RN Thoracentesis Dc Additional Instructions / Restrictions: DISCHARGE INSTRUCTIONS PLEASE READ *Please take this with you to your next doctors appointment* -You have an appointment with Dr. Patricio tomorrow 06/01/2022 at 8:30 AM. Please call his office for any questions or concerns. -Due to the fluid building up in your belly and your lung you were started spironolactone in addition to your furosemide which are water pills which you will take daily. Your furosemide was decreased to 20 mg daily because of your blood pressure and you will take 12.5 mg of spironolactone -Midodrine and spironolactone have been sent to your preferred pharmacy on file,[facility] on [facility] in [place] -Your lisinopril was held due to your low blood pressure -Would recommend weighing yourself every morning and keeping a log of this, if you gain more than 3 pounds in 24 hours please call your primary provider -You had low blood pressure during your admission and was started on a medicine called midodrine, you will be discharged with this and you will take it 3 times daily. Would recommend taking these as close to 8 hours apart as possible. - Would recommend lab work (BMP) to check your potassium in 3 to 5 days through your primary care physician's office to assess if your need to restart potassiumsupplementation. Given that spironolactone was started as likely will not need further supplementation. Please call their office upon discharge to obtain order for lab work. -Please call your primary care provider's office upon discharge to schedule a hospital follow up within 1 week. -For any concerning signs or symptoms please call 911 or proceed to the nearest emergency department Discharge Orders/Prescriptions Prescriptions: New midodrine 5 mg Tablet 10 mg PO TID 30 Days Qty: 180 0RF spironolactone 25 mg Tablet 12.5 mg PO DAILY 30 Days Qty: 15 0RF Continued aspirin 81 mg tablet,delayed release (DR/EC) 81 mg PO DAILY Qty: 1 0RF ferrous sulfate 325 mg (65 mg iron) tablet 325 mg PO QODAY atorvastatin 20 mg tablet 20 mg PO QHS guaifenesin 100 mg/5 mL liquid 200 mg PO Q4H PRN (Reason: cough) Qty: 200 0RF escitalopram oxalate [Lexapro] 5 mg tablet 5 mg PO DAILY Qty: 30 1RF Changed furosemide 20 mg tablet 20 mg PO DAILY Qty: 180 3RF Discontinued lisinopril 40 mg tablet 40 mg PO DAILY Hold Instructions: hypotension Label Comments: TAKE 1 TABLET BY MOUTH ONCE DAILY potassium chloride 10 mEq tablet,ER particles/crystals 10 meq PO DAILY Qty: 90 3RF Referrals / Follow Up: Vern Bernardo MD [Primary Care Provider] - Within 1 Week Ruddy Patricio DO [Med Staff - Active Staff] - 06/01/22 8:30 am Disposition Disposition (needs filled in before D/C Order can be placed): Home Health Service Charges/Coding Visit Charges Inpatient E&M: 76111 Disch Hosp >30min 05/31/22 1415 <Electronically signed by Piedad Hester MD> Cosigner Signature (if applicable): CC: Dr. Vern Bernardo MD; Dr. Piedad Hester MD~ Signed [facility] Work Phone: 1(570) 529-394203-02-[address] Hester [facility] May 31, 2022 1:59pm Note Date/Time May 31, 2022 1:42 pm [facility] Medical Records Department [address] [place] [address] Instructions for Home/Discharge Instructions 05/31/22 1338 MR#: [id number] Acct: [id number] Name: ASHLEY ALCANTAR Rep #:[id number] : 1940 81 From: Piedad Hester MD PCP: Dr. Vern Bernardo MD Status:ADM IN Discharge Instructions Diet Discharge Diet: - (Would recommend adding Ensure or boost 3 times daily with meals) Activity Discharge Activity: Return to Normal Activity Follow Up Care Test Results: Test results from this visit will be discussed in further detail at your follow- up appointment, if applicable. Discharge Plan Admission Admit Date/Time: 05/25/22 15:08 Primary Reason for Your Visit: Shortness of breath and cough for 6 days Attending Provider: Piedad Hester Primary Care Provider: Vern Bernardo Consulting Providers: Sai Lee ; Khari Oliva ; Pravin Martínez ; Bud Hanna ; Wade Marcus ; Kane Borges ; Nani Crowder [employer] Instructions Patient Instructions: VICTORIA RN Thoracentesis Dc Additional Instructions / Restrictions: DISCHARGE INSTRUCTIONS PLEASE READ *Please take this with you to your next doctors appointment* -You have an appointment with Dr. Patricio tomorrow 06/01/2022 at 8:30 AM. Please call his office for any questions or concerns. -Due to the fluid building up in your belly and your lung you were started spironolactone in addition to your furosemide which are water pills which you will take daily. Your furosemide was decreased to 20 mg daily because of your blood pressure and you will take 12.5 mg of spironolactone -Midodrine and spironolactone have been sent to your preferred pharmacy on file,[facility] in [place] -Your lisinopril was held due to your low blood pressure -Would recommend weighing yourself every morning and keeping a log of this, if you gain more than 3 pounds in 24 hours please call your primary provider -You had low blood pressure during your admission and was started on a medicine called midodrine, you will be discharged with this and you will take it 3 times daily. Would recommend taking these as close to 8 hours apart as possible. - Would recommend lab work (BMP) to check your potassium in 3 to 5 days through your primary care physician's office to assess if your need to restart potassiumsupplementation. Given that spironolactone was started as likely will not need further supplementation. Please call their office upon discharge to obtain order for lab work. -Please call your primary care provider's office upon discharge to schedule a hospital follow up within 1 week. -For any concerning signs or symptoms please call 911 or proceed to the nearest emergency department Discharge Orders/Prescriptions Prescriptions: New midodrine 5 mg Tablet 10 mg PO TID 30 Days Qty: 180 0RF spironolactone 25 mg Tablet 12.5 mg PO DAILY 30 Days Qty: 15 0RF Continued aspirin 81 mg tablet,delayed release (DR/EC) 81 mg PO DAILY Qty: 1 0RF ferrous sulfate 325 mg (65 mg iron) tablet 325 mg PO QODAY atorvastatin 20 mg tablet 20 mg PO QHS aifenesin 100 mg/5 mL liquid 200 mg PO Q4H PRN (Reason: cough) Qty: 200 0RF escitalopram oxalate [Lexapro] 5 mg tablet 5 mg PO DAILY Qty: 30 1RF Changed furosemide 20 mg tablet 20 mg PO DAILY Qty: 180 3RF Discontinued lisinopril 40 mg tablet 40 mg PO DAILY Hold Instructions: hypotension Label Comments: TAKE 1 TABLET BY MOUTH ONCE DAILY potassium chloride 10 mEq tablet,ER particles/crystals 10 meq PO DAILY Qty: 90 3RF Referrals / Follow Up: Vern Bernardo MD [Primary Care Provider] - Within 1 Week Ruddy Patricio DO [Med Staff - Active Staff] - 06/01/22 8:30 am Disposition Disposition (needs filled in before D/C Order can be placed): Home Health Service 05/31/22 4438<Electronically signed by Piedad Hester MD>Piedad Hester MD CC: [employer]-Kerrie Crowder; Dr. Pravin Martínez MD; Dr. Bud Hanna DO; Dr. Cayla DO; Dr. Wade Marcus MD; Dr. Vern Bernardo MD; Dr. Sai Lee MD; Dr. Kane Borges MD ~ Signed [facility] Work Phone: 1(427) 745-242503-02-[address] Martínez [facility] May 31, 2022 1:59pm Note Date/Time May 31, 2022 9:58 am [facility] Medical Records Department [address] [place] [address] Progress Note - Analysis Specialist 05/31/22 0955 MR#: [id number] Acct: [id number] Name: ASHLEY ALCANTAR Rep #:[id number] : 1940 81 From: Pravin Martínez MD PCP: Dr. Vern Bernardo MD Status:ADM IN [facility] Assessment & Plan Assessment/Plan (1) Bilateral pleural effusion: (2) Pelvic mass: PLAN: Plan RECOMMENDATIONS: 1. Confirmed that supplemental oxygen will be available at discharge 2. Hold on further thoracentesis unless symptomatic 3. Coordinate for chemotherapy as soon as possible 4. Arrange for outpatient thoracentesis and paracentesis when symptomatic 5. Consider supplementation of diet at home given frailty 6. Okay to discharge from a pulmonary perspective once supportive services in place IMPRESSIONS: 1. Recurrent right pleural effusion secondary to malignant ascites Clinical suspicion is the development of a rift in the diaphragm leading to rapid accumulation of right pleural effusion. Family is very clear that the patient wishes to be aggressive in management moving forward. Clinical suspicion is fluid will continue to rapidly reaccumulate until chemotherapy is initiated. If chemotherapy can slow down the rate, patient may benefit from paracentesis followed by thoracentesis. High clinical suspicion patient will require supplemental oxygen on ambulation. Patient instructed that she can keepher saturations above 90% at all times. Likely not prudent to continue with repeated thoracentesis until chemotherapy can be initiated. Once chemotherapy is initiated, may attempt drainage and monitor for reaccumulation. Anticipate pleural effusion will reaccumulate initially with subsequent ascites once pressure has equalized on the right. Unclear if patient will require outpatientpulmonary follow-up. Would defer to oncology. 2. 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 Family is clear that they want to follow-up with Dr. Patricio as an outpatient. We need to coordinate patient to initiate chemotherapy as soon as possible as the carcinomatosis is likely leading to rapid reaccumulation and problem #1. 3. Hypotension/aortic stenosis status post TAVR/hypoalbuminemia/acute kidneyinjury on CKD stage IIIb/CLL Complicates care, management, recovery and prognosis. Patient may requirealbumin infusions after thoracentesis and paracentesis. Management of patient'sintravascular volume will be very difficult, especially with chemotherapy. Okayto continue with midodrine at this time. Patient will need to be closely monitored for orthostatic changes. Subjective Subjective Patient did well overnight. No subjective change in overall condition. Patientwants to get on with chemotherapy. Patient does feel subjectively that the oxygen is helpful, especially with movement. Objective Data Objective Data Vital Signs: Vital Signs Temp Pulse Resp BP Pulse Ox O2 Del Method O2 Flow Rate 36.8 C 58 L 18 105/55 L 93 Nasal Cannula 2 05/31/22 08:32 05/31/22 08:32 05/31/22 08:32 05/31/22 08:32 05/31/22 08:32 05/31/22 08:35 05/31/22 08:35 Oxygen Flow Rate (L/min) [4] 2 Oxygen Flow Rate (L/min) [3] 4 Oxygen Flow Rate (L/min) [2] 4 Oxygen Flow Rate (L/min) [1 ( 4 Initial Baseline)] Oxygen Flow Rate (L/min) [At 2 REST with Oxygen] Oxygen Flow Rate (L/min) [ 3 AMBULATING with Oxygen #1] Oxygen Flow Rate (L/min) 2 Oxygen Delivery Method [4] Room Air Oxygen Delivery Method [3] Room Air Oxygen Delivery Method [2] Room Air Oxygen Delivery Method [1 ( Room Air Initial Baseline)] Oxygen Delivery Method Nasal Cannula Weight: 53.4 kg Body Mass Index (BMI) 24.5 Intake & Output: Intake and Output for Last 24 Hours 05/29/22 05/30/22 05/31/22 23:59 23:59 23:59 Intake Total 730 / 730 Balance 730 / 730 Lab / Micro Data Attestation: I reviewed the patient's lab results. Result Diagrams: 05/31/22 09:25 05/31/22 09:25 Labs: Laboratory Results - last 24 hr 05/30/22 05:50: Diff Path Review Reviewed 05/31/22 09:25: WBC 58.1 H*, RBC 3.51 L, Hgb 9.7 L, Hct 31.7 L, MCV 90.3, MCH 27.6, MCHC 30.6 L, RDW Std Deviation 54.0 H, RDW Coeff of Zack 16.8 H, Plt Count 399, MPV 8.8, Immature Gran % (Auto) 0.300, Neut % (Auto) 14.4 L, Lymph % (Auto)82.7 H, [place] % (Auto) 1.6, Eos % (Auto) 0.8, Baso % (Auto) 0.2, Absolute Neuts (auto) 8.4 H, Absolute Lymphs (auto) 48.04 H, Nucleated RBC % 0 05/31/22 09:25: Sodium 137, Potassium 5.0, Chloride 98, Carbon Dioxide 32.0, Anion Gap 7, BUN 28 H, Creatinine 1.17 H, Estim Creat Clear Calc 31.25, Est GFR (MDRD) Af Amer 57 L, Est GFR (MDRD) Non-Af 47 L, BUN/Creatinine Ratio 23.9 H, Glucose 103, Calcium 8.0 L Radiography Diagnostic Testing: Radiology Impression Chest X-Ray 05/30/22 10:20 IMPRESSION: Progressive increase in size of the right pleural effusion. Electronically Signed: Mahad Rojas MD at 15:30 EST Reading Location ID and State: [facility] / [place] , Service support , Physical Exam Const alert and no apparent distress General Appearance: frail HEENT head/scalp atraumatic and moist oral mucous membranes Eyes PERRL, EOMs intact bilaterally, conjunctivae normal and no scleral icterus Neck full ROM Neck Narrative: JVD noted Resp normal respiratory effort and no retractions Auscultation: diminished lung sounds; Negative for rales, rhonchi or wheezes Percussion: dullness Mid: right and Lower: right Cardio regular rate, regular rhythm, S1 normal heart sound, S2 normal heart sound, no murmurs, no rub and no gallops GI normal to inspection, nondistended, normoactive bowel sounds, soft to palpation,non-tender and non-distended Back/Spine no CVA tenderness Extremity no clubbing, cyanosis or edema Neuro oriented x3, CN's II-XII intact bilaterally and moves all extremities Charges/Coding Visit Charges Inpatient E&M: 22248 Subs Hosp L2 05/31/22 1359 <Electronically signed by Pravin Martínez MD> Cosigner Signature (if applicable): CC: ~ Signed [facility] Work Phone: 1(170) 496-222803-01-[address] Hester [facility] May 30, 2022 5:45pm Note Date/Time May 30, 2022 10:4 7am [facility] Medical Records Department [address] [place] [address] Progress Note - Hospitalist 05/30/22 1047 MR#: [id number] Acct: [id number] Name: ASHLEY ALCANTAR Rep #:[id number] : 1940 81 From: Piedad Hester MD PCP: Dr. Vern Bernardo MD Status:ADM IN Location: [place] [address]-1 Reason for Visit Reason for Visit: Diagnoses Other disorders of plasma-protein metabolism, not elsewhere classified (05/25/22) Hypotension, unspecified (05/25/22) Pleural effusion, not elsewhere classified (05/25/22) Acute kidney failure, unspecified (05/25/22) Malignant ascites (05/25/22) Intra-abdominal and pelvic swelling, mass and lump, unspecified site (05/25/22) Subjective Subjective Still poor appetite, slight cough this morning she was worried her lungs may be feeling up again with fluid, no change in abdominal pain Objective Data Objective Data Vital Signs: Vital Signs Temp Pulse Resp BP Pulse Ox O2 Del Method O2 Flow Rate 98.6 F 77 18 128/48 H 91 Room Air 2 05/30/22 10:01 05/30/22 08:37 05/30/22 08:37 05/30/22 10:01 05/30/22 10:09 05/30/22 10:09 05/30/22 04:00 Oxygen Flow Rate (L/min) [4] 2 Oxygen Flow Rate (L/min) [3] 4 Oxygen Flow Rate (L/min) [2] 4 Oxygen Flow Rate (L/min) [1 ( 4 Initial Baseline)] Oxygen Flow Rate (L/min) [At 2 REST with Oxygen] Oxygen Flow Rate (L/min) [ 3 AMBULATING with Oxygen #1] Oxygen Flow Rate (L/min) 2 Oxygen Delivery Method [4] Room Air Oxygen Delivery Method [3] Room Air Oxygen Delivery Method [2] Room Air Oxygen Delivery Method [1 ( Room Air Initial Baseline)] Oxygen Delivery Method Room Air Weight: 53.6 kg Body Mass Index (BMI) 24.7 Intake & Output: Intake and Output for Last 24 Hours 05/28/22 05/29/22 05/30/22 23:59 23:59 23:59 Intake Total 600 / 800 730 / 730 Output Total 4120 / 4120 Balance -3520 / -3320 730 / 730 Lab / Micro Data Result Diagrams: 05/30/22 05:50 05/30/22 05:50 Labs: Laboratory Results - last 24 hr 05/29/22 06:00: Diff Path Review Reviewed 05/30/22 05:50: WBC 40.3 H*, RBC 3.21 L, Hgb 8.9 L, Hct 29.4 L, MCV 91.6, MCH 27.7, MCHC 30.3 L, RDW Std Deviation 54.6 H, RDW Coeff of Zack 16.6 H, Plt Count 352, MPV 9.3, Immature Gran % (Auto) 0.300, Neut % (Auto) 15.6 L, Lymph % (Auto)80.5 H, [place] % (Auto) 2.1, Eos % (Auto) 1.3, Baso % (Auto) 0.2, Absolute Neuts (auto) 6.3, Absolute Lymphs (auto) 32.41 H, Nucleated RBC % 0, Differential Comment SCANNED, Diff Path Review May foll, Smudge Cells 2+ 05/30/22 05:50: Sodium 136, Potassium 4.3, Chloride 101, Carbon Dioxide 32.0, Anion Gap 3 L, BUN 26 H, Creatinine 1.07 H, Estim Creat Clear Calc 34.30, Est GFR (MDRD) Af Amer 63, Est GFR (MDRD) Non-Af 52 L, BUN/Creatinine Ratio 24.3 H, Glucose 105, Calcium 8.0 L, Total Bilirubin 0.30, AST 19, ALT 10 L, Alkaline Phosphatase 51, Total Protein 4.7 L, Albumin 1.9 L, Globulin 2.8, Albumin/Globulin Ratio 0.7 L Radiography Diagnostic Testing: Radiology Impression Abdomen Ultrasound 05/29/22 07:00 IMPRESSION: No significant amount of ascites. Paracentesis was not performed. Electronically Signed: Mahad Rojas MD at 11:18 EST , Physical Exam Narrative General: Alert, oriented HEENT: Atraumatic, normocephalic Eyes: Anicteric, normal conjunctiva, extraocular movements grossly intact Neck: Supple Respiratory: Diminished breath sounds right middle and lower lobes, normal respiratory effort Cardiovascular: Regular rate and rhythm GI: Soft, slight tender in lower abdomen, is full but not firm Extremities: Trace edema Musculoskeletal: Moving all extremities Neuro: No overt focal neurological deficits Skin: No rashes appreciated Psych: Cooperative Assessment & Plan Assessment/Plan (1) Bilateral pleural effusion: PLAN: Plan 81-year-old with history of CLL, TAVR November 2021, pelvic mass with recent laparoscopic biopsy at [facility] 05/16, hyper tension, CKD stage IIIb presented 05/24 with shortness of breath and cough for 6 days. She had been seen in her PCPs office on 05/19 and given Zithromax and guaifenesin andwas sent home, she had been able to ambulate and maintain pulse ox at 93% on room air. Due to worsening symptoms she was sent to ED. She had an O2 sat of 88% on room air, exertional dyspnea, BP 100/65, chest x-ray with a large right pleural effusion and she had ultrasound-guided thoracentesis on 05/24 with a 1700mL mildly bloody fluid. She also had a paracentesis done during laparoscopic biopsy and requires weekly paracenteses and already had 3 in the month of May 2022. Additional history of CLL with last admission April 2022. #Shortness of breath with mild hypoxia likely secondary to bilateral pleural effusions right greater than left -On admission chest x-ray shows two third of right chest cavity filled with pleural effusion and she had a ultrasound-guided thoracentesis by Dr. Rojas 05/24 with 1700 cc of blood-tinged fluid drained. She is on 1 to 2 L of O2 and guaifenesin and incentive spirometry were continued. -Concern for exudative effusion -Thoracentesis to be performed 05/28 with 2L of serosanguinous fluid out -Did require 2 L of O2 to maintain an O2 sat of 88% on 05/27, saturations improved on room air 05/28 but still required O2 with ambulation -We will repeat a.m. chest x-ray -05/29: Reports breathing is improving, will need to reassess home O2 needs tomorrow prior to discharge, will also decrease Lasix as BUN and creatinine slightly increasing and breathing is improving -05/30: Had cough and slight downtrend in O2, repeat chest x-ray with reaccumulation of fluid. Pulmonology consulted, given she is not symptomatic they recommended obtaining walking pulse ox and supplemental O2 if needed and outpatient thoracentesis and paracentesis when symptomatic. If doing well tomorrow will ambulate and discharge if possible, adjusted timing of midodrine to optimize BP so that Lasix and spironolactone can be resumed #Ascites in setting of poorly differentiated carcinoma stage IIIb after omental biopsy at [facility] last month -status post 3 paracentesis in May 2022 -Furosemide resumed and spironolactone started -Has pelvic mass that had biopsy last week and pathology is pending. 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 and some nausea and concern for fluid reaccumulation. Will order abdominal paracentesis. Paracentesis willgive further albumin and can likely be discharged home the next morning if stable -05/29: Reevaluate for paracentesis, ideally will have paracentesis today if applicable and DC tomorrow if stable -05/30: Abdominal exam benign, will follow-up outpatient #Hypoalbuminemia -Albumin 1.5 -This complicates pleural effusion and ascites and has received albumin #Hypotension -Hold antihypertensives, albumin given, midodrine started -05/30: Adjusted timing of midodrine and diuretics #Aortic stenosis/AI status post TAVR November 2021 -Last echo January 2020 EF 65% -Had left cardiac cath by Dr. Puri September 2021 with normal right heart pressures and no intracardiac shunting, mid LAD 25% with otherwise angiographically normal coronary arteries #RINA on CKD stage IIIb -On admission creatinine 1.61 with her previous at 1.13 on 05/20, her Lasix and lisinopril were held on admission -RINA resolved and furosemide resumed -05/29: BUN and creatinine trending up, will scale back on Lasix very slightly and continue spironolactone -05/30: Stable #CLL -Follows with [facility] #DVT ppx: miesha subq Piedad Hester MD Time spent in the patient's overall evaluation,decision-making process, review of diagnostic data, adjustment of management, discussion with other providers, nursing nursing and ancillary staff involved in patient's care documentation, 30Minutes Charges/Coding Visit Charges Inpatient E&M: 95783 Subs Hosp L2 05/30/22 4285 <Electronically signed by Piedad Hester MD> Cosigner Signature (if applicable): CC: ~ Signed [facility] Work Phone: 1(115) 932-465003-01-[address] Martínez [facility] May 30, 2022 5:08pm Note Date/Time May 30, 2022 5:[address] [facility] Medical Records Department [address] [place] [address] Consultation - Analysis Specialist 05/30/22 1656 MR#: [id number] Acct: [id number] Name: ASHLEY ALCANTAR Rep #:[id number] : 1940 81 From: Pravin Martínez MD PCP: Dr. Vern Bernardo MD Status:ADM IN [facility] Assessment & Plan Assessment/Plan (1) Bilateral pleural effusion: (2) Pelvic mass: PLAN: Plan RECOMMENDATIONS: 1. Obtain walking oximetry and provide supplemental oxygen if necessary 2. Hold on further thoracentesis unless symptomatic 3. Coordinate for chemotherapy as soon as possible 4. Arrange for outpatient thoracentesis and paracentesis when symptomatic 5. Consider supplementation of diet at home given frailty 6. Okay to discharge from a pulmonary perspective once supportive services in place IMPRESSIONS: 1. Recurrent right pleural effusion secondary to malignant ascites Clinical suspicion is the development of a rift in the diaphragm leading to rapid accumulation of right pleural effusion. Family is very clear that the patient wishes to be aggressive in management moving forward. Clinical suspicion is fluid will continue to rapidly reaccumulate until chemotherapy is initiated. If chemotherapy can slow down the rate, patient may benefit from paracentesis followed by thoracentesis. High clinical suspicion patient will require supplemental oxygen on ambulation. Patient instructed that she can keepher saturations above 90% at all times. Likely not prudent to continue with repeated thoracentesis until chemotherapy can be initiated. 2. 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 Family is clear that they want to follow-up with Dr. Patricio as an outpatient. We need to coordinate patient to initiate chemotherapy as soon as possible as the carcinomatosis is likely leading to rapid reaccumulation and problem #1. 3. Hypotension/aortic stenosis status post TAVR/hypoalbuminemia/acute kidneyinjury on CKD stage IIIb/CLL Complicates care, management, recovery and prognosis. Patient may requirealbumin infusions after thoracentesis and paracentesis. Management of patient'sintravascular volume will be very difficult, especially with chemotherapy. Okayto continue with midodrine at this time. Patient will need to be closely monitored for orthostatic changes. HPI Consult Data Date of Consult: 05/30/22 HPI Narrative Reason for Consultation: Recurrent pleural effusion HPI Narrative: ASHLEY ALCANTAR is an 81 F, with past medical history listed below, who presents [facility] on 05/24/2022 secondary to progressive shortness of breath and hypoxia. Patient reportedly was to see her primary care physician and developed hypoxia with ambulation to 81% on room air. Patient also noted jonathon tachypneic at rest. Patient recently had been seen at the [facility] with a work-up secondary to an intra-abdominal mass and elevated CA125 levels. Patient had been seen in the emergency department on May 20 and noted to have a significant right-sided pleural effusion, but declined admission at that time. Patient not reported any fevers, chills, nausea or vomiting. Patient does report anorexia. The work-up from [facility] was not available at the time of admission. In the ER, patient was afebrile, normotensive and saturating well on room air. Patient was tachypneic as high as 24 breaths/min. Laboratory work-up showed a white blood cell count of 62.1, hemoglobin of 10 and platelets of 396. Chemistries showed a bicarbonate of 26, creatinine of 1.6 and a normal glucose of 102. Chest x-ray showed a large right pleural effusion with atelectasis and slight blunting of the left costophrenic angle. Patient had a thoracentesis, but remained hypoxic, so was admitted to the hospital for further evaluation. Since admission, patient has had another subsequent thoracentesis with almost 2 L removed. Despite this procedure, patient has had reaccumulation in less than a week. Patient states that diagnosis is known from [facility] and they plan on following Dr. Patricio. Family is very adamant that the patient will be aggressive with therapy. Prior to the development of pleural effusion, patient had been receiving a paracentesis approximately once a week for this abdominal mass. The exact diagnosis of the abdominal mass is not available at this time. Patient overall feels subjectively unchanged. Patient states that she felt better after her thoracentesis, but this rapidly went back to the same level. Patient states she is relatively asymptomatic at rest, but gets short of breath with minimal exertion. Review of systems otherwise negative from a constitutional, HEENT, respiratory, cardiovascular, GI, genitourinary, musculoskeletal, skin, neurologic, psychiatric and hematologic system unless stated above. [facility] Medical History Acute maxillary sinusitis, unspecified Acute sinusitis Acute sinusitis Anxiety Aortic regurgitation Aortic stenosis CKD (chronic kidney disease) Contact with and (suspected) exposure to other viral communicable diseases Contusion of left hand including fingers Diarrhea Elevated blood pressure reading in office without diagnosis of hypertension Elevated TSH Glaucoma Hematuria History of right and left heart catheterization (LHC) (~09/29/21) Incontinence Limb weakness Mixed hyperlipidemia Nonrheumatic aortic (valve) stenosis with insufficiency Pelvic mass Post herpetic neuralgia Preop exam for internal medicine Shoulder pain Strain of right trapezius muscle Tinnitus Urinary tract infection with hematuria UTI (urinary tract infection) Home Medications aspirin 81 mg tablet,delayed release 81 mg PO DAILY #1 TAB 09/14/21 [Rx Last Taken 04/26/22] ferrous sulfate 325 mg (65 mg iron) tablet 325 mg PO QODAY 01/29/22 [History Last Taken 04/25/22] atorvastatin 20 mg tablet 20 mg PO QHS CHOLESTEROL 04/28/22 [History Last Taken Unknown] lisinopril 40 mg tablet 40 mg PO DAILY BP 04/28/22 [History Last Taken 04/23/22] furosemide 20 mg tablet 20 mg PO BID #180 tabs 05/14/22 [Rx Last Taken Unknown] potassium chloride 10 mEq tablet,extended release(part/cryst) 10 meq PO DAILY #90 tabs 05/14/22 [Rx Last Taken Unknown] guaifenesin 100 mg/5 mL oral liquid 200 mg (10 mL) PO Q4H PRN cough #200 mL 05/19/22 [Rx Last Taken Unknown] escitalopram oxalate 5 mg tablet (Lexapro) 5 mg PO DAILY #30 tabs 05/21/22 [Rx Last Taken Unknown] Allergy/AdvReac Type Severity Reaction Status Date / Time cephalexin [From Keflex] Allergy Severe Other Verified 05/24/22 11:08 Family History Other Colon cancer Diabetes Myocardial infarction Surgical History History of bilateral cataract extraction History of transcatheter aortic valve replacement (TAVR) (~12/14/21) Social History household members: other details: number of children: 4 current occupational 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 Smoking Status: Former smoker alcohol intake: never substance use type: does not use caffeine: Yes Type: tea Number of servings: 1 ROS ROS Narrative See HPI Physical Exam Const alert and no apparent distress General Appearance: frail HEENT head/scalp atraumatic and moist oral mucous membranes Eyes PERRL, EOMs intact bilaterally, conjunctivae normal and no scleral icterus Neck full ROM Neck Narrative: JVD noted Resp normal respiratory effort and no retractions Auscultation: diminished lung sounds; Negative for rales, rhonchi or wheezes Percussion: dullness Mid: right and Lower: right Cardio regular rate, regular rhythm, S1 normal heart sound, S2 normal heart sound, no murmurs, no rub and no gallops GI normal to inspection, nondistended, normoactive bowel sounds, soft to palpation,non-tender and non-distended Back/Spine no CVA tenderness Extremity no clubbing, cyanosis or edema Neuro oriented x3, CN's II-XII intact bilaterally and moves all extremities Medical Records Data Attestation: I reviewed the patient's medical records Medical records narrative: Review of thoracentesis labs are consistent with an exudate etiology Lab / Micro Data Attestation: I reviewed the patient's lab results. Result Diagrams: 05/30/22 05:50 05/30/22 05:50 Labs: Laboratory Results - last 24 hr 05/30/22 05:50: WBC 40.3 H*, RBC 3.21 L, Hgb 8.9 L, Hct 29.4 L, MCV 91.6, MCH 27.7, MCHC 30.3 L, RDW Std Deviation 54.6 H, RDW Coeff of Zack 16.6 H, Plt Count 352, MPV 9.3, Immature Gran % (Auto) 0.300, Neut % (Auto) 15.6 L, Lymph % (Auto)80.5 H, [place] % (Auto) 2.1, Eos % (Auto) 1.3, Baso % (Auto) 0.2, Absolute Neuts (auto) 6.3, Absolute Lymphs (auto) 32.41 H, Nucleated RBC % 0, Differential Comment SCANNED, Diff Path Review May foll, Smudge Cells 2+ 05/30/22 05:50: Sodium 136, Potassium 4.3, Chloride 101, Carbon Dioxide 32.0, Anion Gap 3 L, BUN 26 H, Creatinine 1.07 H, Estim Creat Clear Calc 34.30, Est GFR (MDRD) Af Amer 63, Est GFR (MDRD) Non-Af 52 L, BUN/Creatinine Ratio 24.3 H, Glucose 105, Calcium 8.0 L, Total Bilirubin 0.30, AST 19, ALT 10 L, Alkaline Phosphatase 51, Total Protein 4.7 L, Albumin 1.9 L, Globulin 2.8, Albumin/Globulin Ratio 0.7 L Radiology Impression Chest X-Ray 05/30/22 10:20 IMPRESSION: Progressive increase in size of the right pleural effusion. Electronically Signed: Mahad Rojas MD at 15:30 EST , Charges/Coding Visit Charges Inpatient E&M: 69241 Init Hosp L2 05/30/22 1708 <Electronically signed by Pravin Martínez MD> Cosigner Signature (if applicable): CC: [employer] Nani Crowder; Dr. Pravin Martínez MD; Dr. Bud Hanna DO; Dr. Cayla DO; Dr. Wade Marcus MD; Dr. Vern Bernardo MD; Dr. Sai Lee MD; Dr. Kane Borges MD~ Signed [facility] Work Phone: 1(935) 928-783202-28-[address] Hester [facility] May 29, 2022 4:59pm Note Date/Time May 29, 2022 8:32am [facility] Medical Records Department [address] [place] [address] Progress Note - Hospitalist 05/29/22 0826 MR#: [id number] Acct: [id number] Name: ASHLEY ALCANTAR Rep #:[id number] : 1940 81 From: Piedad Hester MD PCP: Dr. Vern Bernardo MD Status:ADM IN Location: MS3 [id number] Reason for Visit Reason for Visit: Diagnoses Other disorders of plasma-protein metabolism, not elsewhere classified (05/25/22) Hypotension, unspecified (05/25/22) Pleural effusion, not elsewhere classified (05/25/22) Acute kidney failure, unspecified (05/25/22) Malignant ascites (05/25/22) Intra-abdominal and pelvic swelling, mass and lump, unspecified site (05/25/22) Subjective Subjective Reports having some lower abdominal soreness, does feel abdomen slightly more distended, ate slightly better last night but still poor appetite, breathing hasimproved Objective Data Objective Data Vital Signs: Vital Signs Temp Pulse Resp BP Pulse Ox O2 Del Method O2 Flow Rate 99.0 F 59 L 22 H 95/42 L 95 Nasal Cannula 2 05/29/22 02:35 05/29/22 02:35 05/29/22 02:35 05/29/22 02:35 05/29/22 02:35 05/29/22 07:51 05/29/22 07:51 Oxygen Flow Rate (L/min) [4] 2 Oxygen Flow Rate (L/min) [3] 4 Oxygen Flow Rate (L/min) [2] 4 Oxygen Flow Rate (L/min) [1 ( 4 Initial Baseline)] Oxygen Flow Rate (L/min) [At 2 REST with Oxygen] Oxygen Flow Rate (L/min) [ 3 AMBULATING with Oxygen #1] Oxygen Flow Rate (L/min) 2 Oxygen Delivery Method [4] Room Air Oxygen Delivery Method [3] Room Air Oxygen Delivery Method [2] Room Air Oxygen Delivery Method [1 ( Room Air Initial Baseline)] Oxygen Delivery Method Nasal Cannula Weight: 53.4 kg Body Mass Index (BMI) 24.5 Intake & Output: Intake and Output for Last 24 Hours 05/27/22 05/28/22 05/29/22 23:59 23:59 23:59 Intake Total 360 / 360 600 / 800 200 / 200 Output Total 4120 / 4120 Balance 360 / 360 -3520 / -3320 200 / 200 Lab / Micro Data Result Diagrams: 05/29/22 06:00 05/29/22 06:00 Labs: Laboratory Results - last 24 hr 05/26/22 05:32: Diff Path Review Reviewed 05/27/22 04:53: Diff Path Review Reviewed 05/28/22 04:50: Diff Path Review Reviewed 05/29/22 06:00: WBC 42.8 H*, RBC 3.22 L, Hgb 8.8 L, Hct 29.2 L, MCV 90.7, MCH 27.3, MCHC 30.1 L, RDW Std Deviation 52.9 H, RDW Coeff of Zack 16.3 H, Plt Count 367, MPV 9.4, Immature Gran % (Auto) 0.400, Neut % (Auto) 15.4 L, Lymph % (Auto)80.6 H, [place] % (Auto) 2.1, Eos % (Auto) 1.2, Baso % (Auto) 0.3, Absolute Neuts (auto) 6.6, Absolute Lymphs (auto) 34.49 H, Nucleated RBC % 0, Differential Comment SCANNED, Diff Path Review May foll, Smudge Cells 3+, Hypochromasia 2+ 05/29/22 06:00: Sodium 134 L, Potassium 3.7, Chloride 98, Carbon Dioxide 31.0, Anion Gap 5, BUN 24 H, Creatinine 1.22 H, Estim Creat Clear Calc 29.97, Est GFR (MDRD) Af Amer 54 L, Est GFR (MDRD) Non-Af 45 L, BUN/Creatinine Ratio 19.7, Glucose 98, Calcium 8.0 L, Total Bilirubin 0.30, AST 23, ALT 13, Alkaline Phosphatase 50, Total Protein 4.7 L, Albumin 1.9 L, Globulin 2.8, Albumin/Globulin Ratio 0.7 L Radiography Diagnostic Testing: Radiology Impression Thoracentesis Ultrasound 05/28/22 11:57 IMPRESSION: Ultrasound-guided right thoracentesis. Electronically Signed: Mahad Rojas MD at 14:01 EST , Chest X-Ray 05/28/22 12:50 IMPRESSION: No evidence of pneumothorax following the right thoracentesis. Mild degree of residual pleural parenchymal changes at the right lung base. Electronically Signed: Mahad Rojas MD at 13:14 EST , Chest X-Ray 05/29/22 05:55 IMPRESSION: There is large right pleural effusion has increased in size since the previous study. There is compressive atelectasis in the right lung. Electronically Signed: Evgeny Goncalves MD at 7:08 EST , Physical Exam Narrative General: Alert, oriented, appears tired HEENT: Atraumatic, normocephalic Eyes: Anicteric, normal conjunctiva, extraocular movements grossly intact Neck: Supple Respiratory: Slightly diminished in right lower lobe, normal respiratory effort Cardiovascular: Regular rate and rhythm GI: Soft, slight tender in lower abdomen, is full but not firm Extremities: Trace edema Musculoskeletal: Moving all extremities Neuro: No overt focal neurological deficits Skin: No rashes appreciated Psych: Cooperative Assessment & Plan Assessment/Plan (1) Bilateral pleural effusion: PLAN: Plan 81-year-old with history of CLL, TAVR November 2021, pelvic mass with recent laparoscopic biopsy at [facility] 05/16, hyper tension, CKD stage IIIb presented 05/24 with shortness of breath and cough for 6 days. She had been seen in her PCPs office on 05/19 and given Zithromax and guaifenesin andwas sent home, she had been able to ambulate and maintain pulse ox at 93% on room air. Due to worsening symptoms she was sent to ED. She had an O2 sat of 88% on room air, exertional dyspnea, BP 100/65, chest x-ray with a large right pleural effusion and she had ultrasound-guided thoracentesis on 05/24 with a 1700mL mildly bloody fluid. She also had a paracentesis done during laparoscopic biopsy and requires weekly paracenteses and already had 3 in the month of May 2022. Additional history of CLL with last admission April 2022. #Shortness of breath with mild hypoxia likely secondary to bilateral pleural effusions right greater than left -On admission chest x-ray shows two third of right chest cavity filled with pleural effusion and she had a ultrasound-guided thoracentesis by Dr. Rojas 05/24 with 1700 cc of blood-tinged fluid drained. She is on 1 to 2 L of O2 and guaifenesin and incentive spirometry were continued. -Concern for exudative effusion -Thoracentesis to be performed 05/28 with 2L of serosanguinous fluid out -Did require 2 L of O2 to maintain an O2 sat of 88% on 05/27, saturations improved on room air 05/28 but still required O2 with ambulation -We will repeat a.m. chest x-ray -05/29: Reports breathing is improving, will need to reassess home O2 needs tomorrow prior to discharge, will also decrease Lasix as BUN and creatinine slightlyincreasing and breathing is improving #Ascites most likely malignant -status post 3 paracentesis in May 2022 -Furosemide resumed and spironolactone started -Has pelvic mass that had biopsy last week and pathology is pending. 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 and some nausea and concern for fluid reaccumulation. Will order abdominal paracentesis. Paracentesis willgive further albumin and can likely be discharged home the next morning if stable -05/29: Reevaluate for paracentesis, ideally will have paracentesis today if applicable and DC tomorrow if stable #Hypoalbuminemia -Albumin 1.5 -This complicates pleural effusion and ascites and has received albumin, received albumin again today #Hypotension -Hold antihypertensives, albumin given, midodrine started #Aortic stenosis/AI status post TAVR November 2021 -Last echo January 2020 EF 65% -Had left cardiac cath by Dr. Puri September 2021 with normal right heart pressures and no intracardiac shunting, mid LAD 25% with otherwise angiographically normal coronary arteries #RINA on CKD stage IIIb -On admission creatinine 1.61 with her previous at 1.13 on 05/20, her Lasix and lisinopril were held on admission -RINA resolved and furosemide resumed -05/29: BUN and creatinine trending up, will scale back on Lasix very slightly and continue spironolactone #CLL -Follows with [facility] #DVT ppx: miesha subq Piedad Hester MD Time spent in the patient's overall evaluation,decision-making process, review of diagnostic data, adjustment of management, discussion with other providers, nursing nursing and ancillary staff involved in patient's care documentation, 30Minutes Charges/Coding Visit Charges Inpatient E&M: 21723 Subs Hosp L2 05/29/22 0839 <Electronically signed by Piedad Hester MD> Cosigner Signature (if applicable): CC: ~ Signed ADDENDUM by Dr. Piedad Hestre MD on 05/29/22 at 1659 Addendum Patient went down for paracentesis but did not have enough fluid for drain, did however have episode of low BP that was symptomatic earlier, has made adjustments to her Lasix and spironolactone and she got another dose of the albumin. Spoke with her and family member at bedside this afternoon. If BP better and doing all right tomorrow will plan to DC 05/29/22 1659<Electronically signed by Piedad Hester MD> Cosigner Signature (if applicable): cc: ~* Signed [facility] Work Phone: 1(146) 285-240802-28-2023 Miscellaneous Notes* Telephone Encounter - Samra Cee APRN.STORE LOSS PREVENTION MANAGER - 05/29/2022 10:24 AM EST Per patient request called and reviewed pathology with patients daughter Giovanna: FINAL DIAGNOSIS A and B. 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 Diagnosis Comment Sections show fragments of high-grade malignant neoplasm with spindled and epithelioid features (predominantly spindled). Immunohistochemical stains are performed to assist in the diagnosis. Cytokeratin AE1/3, CAM5.2, FLORY, and CK7 are positive in the epithelioid component. P53 shows an aberrant staining pattern (null), and p16 is diffusely and strongly positive in both spindled and epithelioid components. WT1 and SMARCA4 are positive, Roscoe 8 and CD10 stains are focal and weak. The tumor cells are negative for desmin, HMB45, ALK, SMA, CDX2, GATA3, CK20, ER and LA. MMR is proficient. 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 The immunoprofile is not specific but compatible with cirilo avila origin if the possibility of other primary sites is excluded. Clinical and radiographic correlation is recommended. This case has been reviewed at the gynecological pathology consensus meeting with Blanca Ramos, Naheed Marmolejo, Giorgio, and Neris with concurrence. Results Mismatch Repair Protein Immunohistochemistry Results: MLH1: Normal/Intact Nuclear Expression PMS2: Normal/Intact Nuclear Expression MSH2: Normal/Intact Nuclear Expression MSH6: Normal/Intact Nuclear Expression Patients daughter reports that Ashley is currently admitted to [facility] for SOB and need for thoracentesis. Advised daughter that Dr. Borden would review pathology and discuss plan for treatment at Ashley's follow up next week. Patients daughter is concerned that she has an aggressive cancer, is currently admitted, and keeps filling up with fluid. Patients daughter advised to speak with provider currently caring for Ashley to discuss if she would like to initiate transfer to [facility]. Samra Cee APRN.JOSE documented in this encounterC[facility] Hester [facility] May 28, 2022 5:43pm Note Date/Time May 28, 2022 8:33am [facility] Medical Records Department [address] [place] [id number] Progress Note - Hospitalist 05/28/22 0821 MR#: [id number] Acct: [id number] Name: ASHLEY ALCANTAR Rep #:[id number] : 1940 81 From: Piedad Hester MD PCP: Dr. Vern Bernardo MD Status:ADM IN Location: [place] [id number] Reason for Visit Reason for Visit: Diagnoses Other disorders of plasma-protein metabolism, not elsewhere classified (05/25/22) Hypotension, unspecified (05/25/22) Pleural effusion, not elsewhere classified (05/25/22) Acute kidney failure, unspecified (05/25/22) Malignant ascites (05/25/22) Intra-abdominal and pelvic swelling, mass and lump, unspecified site (05/25/22) Subjective Subjective Went down for Thora centesis today with 2 L of blood-tinged fluid off. Was up ambulating the halls after exam did feel slightly lightheaded and had to sit down, had a pulse ox of 87 on room air and improved with 2 to 3 L. Reports poorp.o. intake which happens when she has worsening abdominal ascites and had some nausea yesterday, does report having bowel movements. Feels her abdomen is getting more distended. Denies worsening of breathing, no significant cough Objective Data Objective Data Vital Signs: Vital Signs Temp Pulse Resp BP Pulse Ox O2 Del Method O2 Flow Rate 97.8 F 60 20 H 117/69 94 Nasal Cannula 3 05/28/22 08:00 05/28/22 08:05 05/28/22 08:05 05/28/22 04:34 05/28/22 08:05 05/28/22 08:05 05/28/22 08:05 Oxygen Flow Rate (L/min) [4] 2 Oxygen Flow Rate (L/min) [3] 4 Oxygen Flow Rate (L/min) [2] 4 Oxygen Flow Rate (L/min) [1 ( 4 Initial Baseline)] Oxygen Flow Rate (L/min) 3 Oxygen Delivery Method [4] Nasal Cannula Oxygen Delivery Method [3] Nasal Cannula Oxygen Delivery Method [2] Nasal Cannula Oxygen Delivery Method [1 ( Nasal Cannula Initial Baseline)] Oxygen Delivery Method Nasal Cannula Weight: 53.4 kg Body Mass Index (BMI) 24.5 Intake & Output: Intake and Output for Last 24 Hours 05/26/22 05/27/22 05/28/22 23:59 23:59 23:59 Intake Total 1250 / 1250 360 / 360 Output Total 400 / 400 Balance 850 / 850 360 / 360 Lab / Micro Data Result Diagrams: 05/28/22 04:50 05/28/22 04:50 Labs: Laboratory Results - last 24 hr 05/28/22 04:50: WBC 56.2 H*, RBC 3.41 L, Hgb 9.5 L, Hct 31.1 L, MCV 91.2, MCH 27.9, MCHC 30.5 L, RDW Std Deviation 53.1 H, RDW Coeff of Zack 16.3 H, Plt Count 439, MPV 9.5, Immature Gran % (Auto) 0.400, Neut % (Auto) 14.5 L, Lymph % (Auto)82.0 H, [place] % (Auto) 1.5, Eos % (Auto) 1.2, Baso % (Auto) 0.4, Absolute Neuts (auto) 8.1 H, Absolute Lymphs (auto) 46.11 H, Nucleated RBC % 0, Differential Comment SCANNED, Diff Path Review May foll, Smudge Cells 2+ 05/28/22 04:50: PT 13.6, INR 1.1 05/28/22 04:50: Sodium 137, Potassium 3.7, Chloride 99, Carbon Dioxide 28.0, Anion Gap 10, BUN 20 H, Creatinine 1.19 H, Estim Creat Clear Calc 30.73, Est GFR(MDRD) Af Amer 56 L, Est GFR (MDRD) Non-Af 46 L, BUN/Creatinine Ratio 16.8, Glucose 106, Calcium 8.2 L Physical Exam Narrative General: Alert, oriented, appears tired HEENT: Atraumatic, normocephalic Eyes: Anicteric, normal conjunctiva, extraocular movements grossly intact Neck: Supple Respiratory: Slightly diminished in right lower lobe, normal respiratory effort Cardiovascular: Regular rate and rhythm GI: Soft, no significant tenderness, is full but soft Extremities: Trace edema Musculoskeletal: Moving all extremities Neuro: No overt focal neurological deficits Skin: No rashes appreciated Psych: Cooperative Assessment & Plan Assessment/Plan (1) Bilateral pleural effusion: PLAN: Plan 81-year-old with history of CLL, TAVR November 2021, pelvic mass with recent laparoscopic biopsy at [facility] 05/16, hyper tension, CKD stage IIIb presented 05/24 with shortness of breath and cough for 6 days. She had been seen in her PCPs office on 05/19 and given Zithromax and guaifenesin andwas sent home, she had been able to ambulate and maintain pulse ox at 93% on room air. Due to worsening symptoms she was sent to ED. She had an O2 sat of 88% on room air, exertional dyspnea, BP 100/65, chest x-ray with a large right pleural effusion and she had ultrasound-guided thoracentesis on 05/24 with a 1700mL mildly bloody fluid. She also had a paracentesis done during laparoscopic biopsy and requires weekly paracenteses and already had 3 in the month of May 2022. Additional history of CLL with last admission April 2022. #Shortness of breath with mild hypoxia likely secondary to bilateral pleural effusions right greater than left -On admission chest x-ray shows two third of right chest cavity filled with pleural effusion and she had a ultrasound-guided thoracentesis by Dr. Rojas 05/24 with 1700 cc of blood-tinged fluid drained. She is on 1 to 2 L of O2 and guaifenesin and incentive spirometry were continued. -Concern for exudative effusion -Thoracentesis to be performed 05/28 with 2L of serosanguinous fluid out -Did require 2 L of O2 to maintain an O2 sat of 88% on 05/27, saturations improved on room air 05/28 but still required O2 with ambulation -We will repeat a.m. chest x-ray #Ascites most likely malignant -status post 3 paracentesis in May 2022 -Furosemide resumed and spironolactone started -Has pelvic mass that had biopsy last week and pathology is pending. 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 and some nausea and concern for fluid reaccumulation. Will order abdominal paracentesis. Paracentesis willgive further albumin and can likely be discharged home the next morning if stable #Hypoalbuminemia -Albumin 1.5 -This complicates pleural effusion and ascites and has received albumin, received albumin again today #Hypotension -Hold antihypertensives, albumin given, midodrine started #Aortic stenosis/AI status post TAVR November 2021 -Last echo January 2020 EF 65% -Had left cardiac cath by Dr. Puri September 2021 with normal right heart pressures and no intracardiac shunting, mid LAD 25% with otherwise angiographically normal coronary arteries #RINA on CKD stage IIIb -On admission creatinine 1.61 with her previous at 1.13 on 05/20, her Lasix and lisinopril were held on admission -RINA resolved and furosemide resumed #CLL -Follows with [facility] #DVT ppx: miesha subq Piedad Hester MD Time spent in the patient's overall evaluation,decision-making process, review of diagnostic data, adjustment of management, discussion with other providers, nursing nursing and ancillary staff involved in patient's care documentation, 45Minutes Charges/Coding Visit Charges Inpatient E&M: 97027 Subs Hosp L2 05/28/22 1743 <Electronically signed by Piedad Hester MD> Cosigner Signature (if applicable): CC: ~ Signed [facility] Work Phone: 1(827) 584-658302-26-[address] Oliva [facility] May 27, 2022 11:57am Note Date/Time May 27, 2022 11:57am [facility] Medical Records Department [address] [place] [address] Progress Note - Hospitalist 05/27/22 1155 MR#: [id number] Acct: [id number] Name: ASHLEY ALCANTAR Rep #:[id number] : 1940 81 From: Khari Olvia DO PCP: Dr. Vern Bernardo MD Status:ADM IN Location: [place] [address] Reason for Visit Reason for Visit: Diagnoses Other disorders of plasma-protein metabolism, not elsewhere classified (05/25/22) Hypotension, unspecified (05/25/22) Pleural effusion, not elsewhere classified (05/25/22) Acute kidney failure, unspecified (05/25/22) Malignant ascites (05/25/22) Intra-abdominal and pelvic swelling, mass and lump, unspecified site (05/25/22) Subjective Subjective Some dyspnea last night. Breathing okay currently. Objective Data Objective Data Vital Signs: Vital Signs Temp Pulse Resp BP Pulse Ox O2 Del Method O2 Flow Rate 36.8 C 64 20 H 105/55 L 95 Nasal Cannula 2.5 05/27/22 08:05 05/27/22 08:05 05/27/22 08:05 05/27/22 08:05 05/27/22 08:05 05/27/22 08:05 05/27/22 08:05 Oxygen Flow Rate (L/min) [4] 2 Oxygen Flow Rate (L/min) [3] 4 Oxygen Flow Rate (L/min) [2] 4 Oxygen Flow Rate (L/min) [1 ( 4 Initial Baseline)] Oxygen Flow Rate (L/min) 2.5 Oxygen Delivery Method [4] Nasal Cannula Oxygen Delivery Method [3] Nasal Cannula Oxygen Delivery Method [2] Nasal Cannula Oxygen Delivery Method [1 ( Nasal Cannula Initial Baseline)] Oxygen Delivery Method Nasal Cannula Weight: 53.4 kg Body Mass Index (BMI) 24.5 Intake & Output: Intake and Output for Last 24 Hours 05/25/22 05/26/22 05/27/22 23:59 23:59 23:59 Intake Total 450 / 450 1250 / 1250 Output Total 400 / 400 Balance 450 / 450 850 / 850 Lab / Micro Data Result Diagrams: 05/27/22 04:53 05/27/22 04:53 Labs: Laboratory Results - last 24 hr 05/27/22 04:53: WBC 45.9 H*, RBC 3.23 L, Hgb 8.9 L, Hct 29.6 L, MCV 91.6, MCH 27.6, MCHC 30.1 L, RDW Std Deviation 53.7 H, RDW Coeff of Zack 16.4 H, Plt Count 376, MPV 9.5, Immature Gran % (Auto) 0.400, Neut % (Auto) 15.7 L, Lymph % (Auto)80.3 H, [place] % (Auto) 2.1, Eos % (Auto) 1.2, Baso % (Auto) 0.3, Absolute Neuts (auto) 7.2, Absolute Lymphs (auto) 36.80 H, Nucleated RBC % 0, Differential Comment SCANNED, Diff Path Review May foll, Smudge Cells 2+ 05/27/22 04:53: Sodium 135 L, Potassium 3.6, Chloride 99, Carbon Dioxide 29.0, Anion Gap 7, BUN 20 H, Creatinine 1.10 H, Estim Creat Clear Calc 33.24, Est GFR (MDRD) Af Amer 61, Est GFR (MDRD) Non-Af 50 L, BUN/Creatinine Ratio 18.2, Glucose 98, Calcium 7.7 L Physical Exam Const alert and no apparent distress HEENT head/scalp atraumatic and moist oral mucous membranes Resp normal respiratory effort and no retractions Resp Narrative: Diminished in right mid and lower lobes with dullness to percussion. Cardio regular rate, regular rhythm, S1 normal heart sound and S2 normal heart sound GI normal to inspection, nondistended, normoactive bowel sounds, soft to palpation,non-tender and non-distended Neuro Sensorium / Orientation: awake and alert Assessment & Plan Assessment/Plan (1) Bilateral pleural effusion: PLAN: R>L Appear exudative. Cannot rule out communication with ascites 05/25: S/P right sided thoracentesis w removal of 1.75L 05/26: Repeat chest x-ray shows reaccumulation of the pleural effusion. Discussed with patient. Recommend patient have a thoracentesis. That be performed on the unless becomes cutely urgent in the interim. (2) Malignant ascites: PLAN: suspected 2/2 pelvic mass hold off on paracentesis for now as abdomen appear soft. furosemide Abdomen appears more distended. Patient may require repeat paracentesis. (3) Hypoalbuminemia: PLAN: Albumin 1.5. Complicates pleural effusion and ascites Will give albumin again (4) Hypotension: PLAN: Replace albumin. Start midodrine (5) Pelvic mass: PLAN: had biopsy last week. Reviewed on MyChart that the final pathology is still pending. This was the patient's daughter who was able to pull that up. 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 Not further identified beyond that. Did inform the patient about this finding on the surgical report which was not known to her. follow up with Dr. 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 Last BUN/creatinine 17/1.13 on 05/20/2022 with estimated creatinine 132mL/min. PLAN: Plan Chronic conditions: * Chronic lymphocytic leukemia oncologist: She follows at the [facility]. She has chronically elevated WBC count. WBC 62,000, H&H 10/34%, platelet count 396,000. Mild chronic normocytic normochromic anemia * Aortic stenosis/AI status post TAVR in November 2021: Last echo in January 2020 to include in clinic. EF 65%. RV normal in size and systolic function. RA moderately dilated. Status post TAVR, portico prosthetic AV size #25. Mild 1+ AR. Mild MR and TR. She had right and left cardiac cath by Dr. Puri in September 2021 reported right heart pressure normal, no intracardiac shunting. Mid LAD 25% otherwise angiographically normal coronary arteries. ALC 52,000 * Essential hypertension-BP in ED is low therefore hold antihypertensive medication. * Hyperlipidemia-patient is on atorvastatin VTE prophylaxis: SCDs. Charges/Coding Visit Charges Inpatient E&M: 91886 Subs Hosp L2 05/27/22 1157 <Electronically signed by Khari Oliva DO> Cosigner Signature (if applicable): CC: ~ Signed [facility] Work Phone: 1([phone]) 577-993602-25-[address] Oliva [facility] May 26, 2022 2:39pm Note Date/Time May 26, 2022 7:54am [facility] Medical Records Department [address] [place] [address] Progress Note - Hospitalist 05/26/22 0750 MR#: [id number] Acct: [id number] Name: ASHLEY ALCANTAR Rep #:[id number] : 1940 81 From: Khari Oliva DO PCP: Dr. Vern Bernardo MD Status:ADM [id number] Reason for Visit Reason for Visit: Diagnoses Other disorders of plasma-protein metabolism, not elsewhere classified (05/25/22) Hypotension, unspecified (05/25/22) Pleural effusion, not elsewhere classified (05/25/22) Acute kidney failure, unspecified (05/25/22) Malignant ascites (05/25/22) Intra-abdominal and pelvic swelling, mass and lump, unspecified site (05/25/22) Subjective Subjective Still feels short of breath. Abdomen still feels flat. Objective Data Objective Data Vital Signs: Vital Signs Temp Pulse Resp BP Pulse Ox O2 Del Method O2 Flow Rate 36.9 C 54 L 16 99/64 94 Nasal Cannula 2 05/26/22 03:00 05/26/22 04:01 05/26/22 03:00 05/26/22 03:00 05/26/22 07:14 05/26/22 07:14 05/26/22 07:14 Oxygen Flow Rate (L/min) [4] 2 Oxygen Flow Rate (L/min) [3] 4 Oxygen Flow Rate (L/min) [2] 4 Oxygen Flow Rate (L/min) [1 ( 4 Initial Baseline)] Oxygen Flow Rate (L/min) 2 Oxygen Delivery Method [4] Nasal Cannula Oxygen Delivery Method [3] Nasal Cannula Oxygen Delivery Method [2] Nasal Cannula Oxygen Delivery Method [1 ( Nasal Cannula Initial Baseline)] Oxygen Delivery Method Nasal Cannula Weight: 57.7 kg Body Mass Index (BMI) 26.6 Intake & Output: Intake and Output for Last 24 Hours 05/24/22 05/25/22 05/26/22 23:59 23:59 23:59 Intake Total 450 / 450 550 / 550 Output Total 1750 / 1750 400 / 400 Balance -1750 / -1750 450 / 450 150 / 150 Lab / Micro Data Result Diagrams: 05/26/22 05:32 05/26/22 05:32 Labs: Laboratory Results - last 24 hr 05/24/22 13:00: Diff Path Review Reviewed 05/24/22 14:25: Fl Pathologist Comment Reviewed 05/25/22 04:40: Diff Path Review Reviewed 05/26/22 05:32: WBC 47.5 H*, RBC 3.22 L, Hgb 8.9 L, Hct 29.6 L, MCV 91.9, MCH 27.6, MCHC 30.1 L, RDW Std Deviation 53.1 H, RDW Coeff of Zack 16.2 H, Plt Count 352, MPV 9.7, Immature Gran % (Auto) 0.400, Neut % (Auto) 14.7 L, Lymph % (Auto)81.0 H, [place] % (Auto) 2.0, Eos % (Auto) 1.5, Baso % (Auto) 0.4, Absolute Neuts (auto) 7.0, Absolute Lymphs (auto) 38.51 H, Nucleated RBC % 0 05/26/22 05:32: Sodium 135 L, Potassium 3.3 L, Chloride 100, Carbon Dioxide 29.0, Anion Gap 6, BUN 19 H, Creatinine 1.15 H, Estim Creat Clear Calc 34.36, Est GFR (MDRD) Af Amer 58 L, Est GFR (MDRD) Non-Af 48 L, BUN/Creatinine Ratio 16.5, Glucose 90, Calcium 7.6 L, Total Bilirubin 0.30, AST 24, ALT 10 L, Alkaline Phosphatase 55, Total Protein 4.6 L, Albumin 1.7 L, Globulin 2.9, Albumin/Globulin Ratio 0.6 L Radiography Diagnostic Testing: Radiology Impression Chest X-Ray 05/26/22 05:55 IMPRESSION: Increased right pleural effusion and basilar atelectasis/consolidation. Electronically Signed: Brenda Mart MD at 7:10 EST , Physical Exam Const alert and no apparent distress Resp Resp Narrative: Diminished breath sounds in the right lower lobe with dullness to percussion. Cardio regular rate, regular rhythm, S1 normal heart sound and S2 normal heart sound GI GI Narrative: More distended today but soft. Extremity normal to inspection Assessment & Plan Assessment/Plan (1) Bilateral pleural effusion: PLAN: R>L Appear exudative. Cannot rule out communication with ascites 05/25: S/P right sided thoracentesis w removal of 1.75L 05/26: Repeat chest x-ray shows reaccumulation of the pleural effusion. Discussed with patient. Recommend patient have a thoracentesis. That be performed on the unless becomes cutely urgent in the interim. (2) Malignant ascites: PLAN: suspected 2/2 pelvic mass hold off on paracentesis for now as abdomen appear soft. furosemide Abdomen appears more distended. Patient may require repeat paracentesis. (3) Hypoalbuminemia: PLAN: Albumin 1.5. Complicates pleural effusion and ascites Will give albumin again (4) Hypotension: PLAN: Replace albumin. Start midodrine (5) Pelvic mass: PLAN: had biopsy last week. Reviewed on MyChart that the final pathology is still pending. This was the patient's daughter who was able to pull that up. 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 Not further identified beyond that. follow up with Dr. 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 Last BUN/creatinine 17/1.13 on 05/20/2022 with estimated creatinine 132mL/min. PLAN: Plan Chronic conditions: * Chronic lymphocytic leukemia oncologist: She follows at the [facility]. She has chronically elevated WBC count. WBC 62,000, H&H 10/34%, platelet count 396,000. Mild chronic normocytic normochromic anemia * Aortic stenosis/AI status post TAVR in November 2021: Last echo in January 2020 to include in clinic. EF 65%. RV normal in size and systolic function. RA moderately dilated. Status post TAVR, portico prosthetic AV size #25. Mild 1+ AR. Mild MR and TR. She had right and left cardiac cath by Dr. Puri in September 2021 reported right heart pressure normal, no intracardiac shunting. Mid LAD 25% otherwise angiographically normal coronary arteries. ALC 52,000 * Essential hypertension-BP in ED is low therefore hold antihypertensive medication. * Hyperlipidemia-patient is on atorvastatin VTE prophylaxis: SCDs. Case discussed with the patient's daughter at bedside. Review through [facility], recent results, surgical notes. Charges/Coding Visit Charges Inpatient E&M: 86072 [facility] Hosp L3 05/26/22 1439 <Electronically signed by Khari Oliva DO> Cosigner Signature (if applicable): CC: ~ Signed [facility] Work Phone: [phone]) 583-183702-25-2023 Miscellaneous Notes* Telephone Encounter - Helena Son MD - 05/26/2022 11:41 AM EST Phone call returned to patient's daughter - she reports patient is admitted to the hospital for shortness of breath and underwent thoracentesis for 2L. She is asking if her pathology is back and if she should be transferred to [facility]. I updated her that the pathology report is not yet resultedand that would be happy to care for her here at [facility] if they do decide to request transfer. Helena Son MD PGY6, Gynecologic Oncology Fellow May 26, 2022 11:44 AM Pager: documented in [facility] Oliva [facility] May 25, 2022 12:19pm Note Date/Time May 25, 2022 12:19pm [facility] Medical Records Department [address] [place] [address] [place] [address] Progress Note - Hospitalist 05/25/22 1209 MR#: [id number] Acct: [id number] Name: ASHLEY ALCANTAR Rep #:[id number] : 1940 81 From: Khari Oliva DO PCP: Dr. Vern Bernardo MD Status:ADM KAROL [place] [facility] [place] Reason for Visit Reason for Visit: Diagnoses Pleural effusion, not elsewhere classified (05/24/22) Malignant ascites (05/24/22) Subjective Subjective Breathing ok after thoracentesis. Abdomen is slightly distress, but nontender. Objective Data Objective Data Vital Signs: Vital Signs Temp Pulse Resp BP Pulse Ox O2 Del Method O2 Flow Rate 36.8 C 61 18 99/51 L 93 Nasal Cannula 3 05/25/22 10:51 05/25/22 10:51 05/25/22 10:51 05/25/22 10:51 05/25/22 10:51 05/25/22 10:51 05/25/22 10:51 Oxygen Flow Rate (L/min) [4] 2 Oxygen Flow Rate (L/min) [3] 4 Oxygen Flow Rate (L/min) [2] 4 Oxygen Flow Rate (L/min) [1 ( 4 Initial Baseline)] Oxygen Flow Rate (L/min) 3 Oxygen Delivery Method [4] Nasal Cannula Oxygen Delivery Method [3] Nasal Cannula Oxygen Delivery Method [2] Nasal Cannula Oxygen Delivery Method [1 ( Nasal Cannula Initial Baseline)] Oxygen Delivery Method Nasal Cannula Weight: 56 kg Body Mass Index (BMI) 25.9 Intake & Output: Intake and Output for Last 24 Hours 05/23/22 05/24/22 05/25/22 23:59 23:59 23:59 Intake Total 400 / 400 Output Total 1750 / 1750 Balance -1750 / -1750 400 / 400 Lab / Micro Data Result Diagrams: 05/25/22 04:40 05/25/22 04:40 Labs: Laboratory Results - last 24 hr 05/24/22 13:00: WBC 62.1 H*, RBC 3.66 L, Hgb 10.0 L, Hct 33.9 L, MCV 92.6, MCH 27.3, MCHC 29.5 L, RDW Std Deviation 52.1 H, RDW Coeff of Zack 15.9 H, Plt Count 396, MPV 9.1, Immature Gran % (Auto) 0.500, Neut % (Auto) 12.6 L, Lymph % (Auto)84.0 H, [place] % (Auto) 1.7, Eos % (Auto) 1.0, Baso % (Auto) 0.2, Absolute Neuts (auto) 7.8 H, Absolute Lymphs (auto) 52.11 H, Eosinophils % (Manual) 0.59, Nucleated RBC % 0, Differential Comment SCANNED, Diff Path Review Reviewed, Smudge Cells 3+ 05/24/22 13:00: Sodium 135 L, Potassium 3.5, Chloride 99, Carbon Dioxide 26.0, Anion Gap 10, BUN 23 H, Creatinine 1.61 H, Estim Creat Clear Calc 52.57, Est GFR(MDRD) Af Amer 39 L, Est GFR (MDRD) Non-Af 33 L, BUN/Creatinine Ratio 14.3, Glucose 102, Calcium 8.1 L, Total Bilirubin 0.30, AST 29, ALT 15, Alkaline Phosphatase 71, Total Protein 5.6 L, Albumin 2.0 L, Globulin 3.6, Albumin/Globulin Ratio 0.6 L 05/24/22 13:00: Lactate Dehydrogenase 419 H 05/24/22 13:00: Magnesium 2.0 05/24/22 14:13: Fluid Glucose 109 H, Fluid Total Protein 3.1, Fluid LDH 496 05/24/22 14:25: Fluid Source THORACENTESIS, Fluid Color RED, Fluid Appearance CLOUDY, Fluid WBC 0.795, Fluid RBC 0.051, Fluid Tot Cell Count 0.932 H, Fld Polynuclear WBCs # 0.110, Fld Polynuclear WBCs % 13.9, Fluid Mononuclear WBCs 0.685, Fld Mononuclear WBCs % 86.1, Fluid Neutrophils 15, Fluid Lymphocytes 47, Fluid Monocytes 8, Fluid Macrophages 2, Fld Mesothelial Cells 28, Fl PathologistComment Reviewed, Fluid Comment 2 SEE COMMENT 05/25/22 04:40: WBC 52.0 H*, RBC 3.27 L, Hgb 9.0 L, Hct 30.3 L, MCV 92.7, MCH 27.5, MCHC 29.7 L, RDW Std Deviation 53.1 H, RDW Coeff of Zack 16.2 H, Plt Count 357, MPV 9.7, Immature Gran % (Auto) 0.400, Neut % (Auto) 15.4 L, Lymph % (Auto)80.3 H, [place] % (Auto) 1.9, Eos % (Auto) 1.7, Baso % (Auto) 0.3, Absolute Neuts (auto) 8.0 H, Absolute Lymphs (auto) 41.75 H, Nucleated RBC % 0, Differential Comment SCANNED, Diff Path Review May foll, Smudge Cells 1+ H 05/25/22 04:40: Sodium 134 L, Potassium 3.7, Chloride 101, Carbon Dioxide 27.0, Anion Gap 6, BUN 23 H, Creatinine 1.29 H, Estim Creat Clear Calc 29.72, Est GFR (MDRD) Af Amer 51 L, Est GFR (MDRD) Non-Af 42 L, BUN/Creatinine Ratio 17.8, Glucose 100, Calcium 7.7 L, Albumin 1.5 L Radiography Diagnostic Testing: Radiology Impression Chest X-Ray 05/24/22 12:52 IMPRESSION: Large right pleural effusion with compressive atelectasis in the right lung. Blunting of the left costophrenic angle with atelectasis at the left lung base. Stent is seen in the region of the aortic valve. Electronically Signed: Mahad Rojas MD at 14:02 EST , Thoracentesis Ultrasound 05/24/22 14:12 IMPRESSION: Ultrasound-guided right thoracentesis. Electronically Signed: Mahad Rojas MD at 15:09 EST , Chest X-Ray 05/24/22 14:55 IMPRESSION: No evidence of pneumothorax following right thoracentesis. Electronically Signed: Mahad Rojas MD at 15:10 EST , Physical Exam Const alert and no apparent distress HEENT head/scalp atraumatic Neck no lymphadenopathy Resp normal respiratory effort and no retractions Resp Narrative: diminished RLL. Cardio regular rate, regular rhythm, S1 normal heart sound and S2 normal heart sound GI normal to inspection, nondistended, normoactive bowel sounds Extremity Extremity Narrative: +2 edema bilateral LE. Neuro oriented x3 and moves all extremities Psych affect normal Assessment & Plan Assessment/Plan (1) Bilateral pleural effusion: PLAN: R>L S/P right sided thoracentesis w removal of 1.75L Appear exudative. Cannot rule out communication with ascites (2) Malignant ascites: PLAN: suspected 2/2 pelvic mass hold off on paracentesis for now as abdomen appear soft. furosemide (3) Hypoalbuminemia: PLAN: Albumin 1.5. Complicates pleural effusion and ascites Will give albumin (4) Hypotension: PLAN: Replace albumin. Start midodrine (5) Pelvic mass: PLAN: had biopsy last week follow up with Dr. 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 Last BUN/creatinine 17/1.13 on 05/20/2022 with estimated creatinine 132mL/min. PLAN: Plan Chronic conditions: * Chronic lymphocytic leukemia oncologist: She follows at the [facility]. She has chronically elevated WBC count. WBC 62,000, H&H 10/34%, platelet count 396,000. Mild chronic normocytic normochromic anemia * Aortic stenosis/AI status post TAVR in November 2021: Last echo in January 2020 to include in clinic. EF 65%. RV normal in size and systolic function. RA moderately dilated. Status post TAVR, portico prosthetic AV size #25. Mild 1+ AR. Mild MR and TR. She had right and left cardiac cath by Dr. Puri in September 2021 reported right heart pressure normal, no intracardiac shunting. Mid LAD 25% otherwise angiographically normal coronary arteries. ALC 52,000 * Essential hypertension-BP in ED is low therefore hold antihypertensive medication. * Hyperlipidemia-patient is on atorvastatin VTE prophylaxis: SCDs. Charges/Coding Visit Charges Inpatient E&M: 81156 Subs Hosp L3 05/25/22 1219 <Electronically signed by Khari Oliva DO> Cosigner Signature (if applicable): CC: ~ Signed [facility] Work Phone: 1(491) 376-453202-23-2023 History and physical note Author Dr. Lee [facility] May 24, 2022 5:18pm Note Date/Time May 24, 2022 3:49pm [facility] Medical Records Department [address] [place] [address] H&P Exam - Hospitalist 05/24/22 1547 MR#: [id number] Acct: [id number] Name: ASHLEY ALCANTAR Rep #:[id number] : 1940 81 From: Sai Martínez PCP: Dr. Vern Bernardo MD Status:ADM KAROL [place] [facility] HPI - General General Date of Admission: 05/24/22 Date of Service: 05/24/22 Chief Complaint: Shortness of breath, cough for 6 days HPI Narrative ASHLEY ALCANTAR, is a 81 F with history of CLL, pelvic mass with recent laparoscopic biopsy including [facility] on 05/16 came to ED for shortness of breath, could not lay flat, exertional dyspnea and cough for 6 days. She came to ED on 05/20 for cough sore throat, exertional dyspnea and orthopnea. Her PCP prescribed Zithromax and cough guaifenesin on 05/19. She was sent home and she was able to ambulate and maintain pulse ox 93% on room air. She saw her PCP Dr. Vern Bernardo for worsening shortness of breath, increasingright pleural effusion, hypoxic, pulse ox 81% on walking and tachypneic therefore sent to ED. Biopsy result from pelvic mass still not available. In ED today, she has exertional dyspnea,Hypoxic 88% on room air, BP 100/65 heartrate 72/min. Chest x-ray shows a large right pleural effusion. Therefore had ultrasound-guided right thoracocentesis today. She had 1700 mL mild bloody thoracocentesis. Patient states she had paracentesis done during laparoscopic biopsy and requires weekly paracentesis. She already had 3 paracentesis in the month of May 2022. She wants to come [facility]acent[facility]. Besides that, she has history of CLL with her last admission in April 2022. [facility] Medical History Acute maxillary sinusitis, unspecified Acute sinusitis Acute sinusitis Anxiety Aortic regurgitation Aortic stenosis CKD (chronic kidney disease) Contact with and (suspected) exposure to other viral communicable diseases Contusion of left hand including fingers Diarrhea Elevated blood pressure reading in office without diagnosis of hypertension Elevated TSH Glaucoma Hematuria History of right and left heart catheterization (LHC) (~09/29/21) Incontinence Limb weakness Mixed hyperlipidemia Nonrheumatic aortic (valve) stenosis with insufficiency Post herpetic neuralgia Preop exam for internal medicine Shoulder pain Strain of right trapezius muscle Tinnitus Urinary tract infection with hematuria UTI (urinary tract infection) Home Medications aspirin 81 mg tablet,delayed release 81 mg PO DAILY #1 TAB 09/14/21 [Rx Last Taken 04/26/22] ferrous sulfate 325 mg (65 mg iron) tablet 325 mg PO QODAY 01/29/22 [History Last Taken 04/25/22] atorvastatin 20 mg tablet 20 mg PO QHS CHOLESTEROL 04/28/22 [History Last Taken Unknown] lisinopril 40 mg tablet 40 mg PO DAILY BP 04/28/22 [History Last Taken 04/23/22] furosemide 20 mg tablet 20 mg PO BID #180 tabs 05/14/22 [Rx Last Taken Unknown] potassium chloride 10 mEq tablet,extended release(part/cryst) 10 meq PO DAILY #90 tabs 05/14/22 [Rx Last Taken Unknown] guaifenesin 100 mg/5 mL oral liquid 200 mg (10 mL) PO Q4H PRN cough #200 mL 05/19/22 [Rx Last Taken Unknown] escitalopram oxalate 5 mg tablet (Lexapro) 5 mg PO DAILY #30 tabs 05/21/22 [Rx Last Taken Unknown] Allergy/AdvReac Type Severity Reaction Status Date / Time cephalexin [From Keflex] Allergy Severe Other Verified 05/24/22 11:08 Family History Other Colon cancer Diabetes Myocardial infarction Surgical History History of bilateral cataract extraction History of transcatheter aortic valve replacement (TAVR) (~12/14/21) Social History household members: other details: number of children: 4 current occupational 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 Smoking Status: Former smoker alcohol intake: never substance use type: does not use caffeine: Yes Type: tea Number of servings: 1 ROS ROS Narrative Constitutional: Reports fatigue and weakness, not able to lay flat. HEENT: Reports systems reviewed and no addt'l complaints, except as documented Respiratory/Chest: Mild cough, improved after thoracocentesis. Dyspnea at rest and minimal exertion. Orthopnea. Large right pleural effusion. CVS: No chest pain pressure or tightness. Had cardiac cath in September 2021, no significant CAD Gastrointestinal: Denies coffee ground emesis, hematemesis or vomiting Genitourinary: External urinary catheter, no urine output. Feels urge for urination. Denies burning urination Musculoskeletal: Reports joint pain and limited range of motion. Bilateral lower leg swelling/edema Neurologic: Denies seizure-like activity skin: No ulcer. No rash Endocrinology: Reports systems reviewed and no addt'l complaints, except as documented Hematologic/Lymphatic: CLL. Follows [facility] oncologist. Reports systems reviewed and no addt'l complaints, except as documented Rest 14 ROS are negative except as mentioned in HPI Vital Signs Vital Signs Vital Signs: 05/24/22 12:30 05/24/22 13:25 05/24/22 13:29 Temperature 97.0 F L Temperature Source Temporal Pulse Rate 85 72 Respiratory Rate 16 24 H Respiratory Effort Short of Breath Respiratory Pattern Tachypnea Blood Pressure 116/66 104/65 Blood Pressure Mean 82 78 Pulse Ox 93 88 Oxygen Delivery Method Room Air Room Air Oxygen Flow Rate (L/min) 05/24/22 15:16 Temperature Temperature Source Pulse Rate 65 Respiratory Rate 16 Respiratory Effort Respiratory Pattern Blood Pressure 94/52 L Blood Pressure Mean 66 Pulse Ox 96 Oxygen Delivery Method Nasal Cannula Oxygen Flow Rate (L/min) 1 Weight Weight: 272 lb 7.861 oz Body Mass Index (BMI) 56.9 Physical Exam Narrative Physical exam General: Alert, Oriented x3, Cooperative, BMI 25.2 kg/m? HEENT: Atraumatic, PERRLA, EOMI, Normocephalic Oral: Oral mucosa moist. No Gingival or Mucosal Lesions/ Ulcerations Neck: Supple, No JVD, Negative Carotid Bruits Lungs: Air entry diminished in bilateral lung bases. Status post thoracocentesis. Dressing dry. No crepitation/rhonchi Cardiovascular: Regular rate, Regular Rhythm, Normal S1, Normal S2, no audible murmur. Abdomen: Bowel Sounds Present, Soft, Non Tender, mild distention, ascites. : No renal angle tenderness. No suprapubic tenderness. Extremities: Bilateral LE, pitting edema 3+, Capillary Refill Less than 3 Seconds Skin: No rashes, No breakdown Musculoskeletal: No Tenderness to Palpation of Joints or Extremities, ROM restricted due to swelling. Neurological: Cranial nerves II-XII grossly intact, DTR 2+/4 and Symmetrical, Neuro grossly intact Psych/Mental Status: Flat affect. Results Lab / Micro Data Result Diagrams: 05/24/22 13:00 05/24/22 13:00 Labs: Laboratory Results - last 24 hr 05/24/22 13:00: WBC 62.1 H*, RBC 3.66 L, Hgb 10.0 L, Hct 33.9 L, MCV 92.6, MCH 27.3, MCHC 29.5 L, RDW Std Deviation 52.1 H, RDW Coeff of Zack 15.9 H, Plt Count 396, MPV 9.1, Immature Gran % (Auto) 0.500, Neut % (Auto) 12.6 L, Lymph % (Auto)84.0 H, [place] % (Auto) 1.7, Eos % (Auto) 1.0, Baso % (Auto) 0.2, Absolute Neuts (auto) 7.8 H, Absolute Lymphs (auto) 52.11 H, Eosinophils % (Manual) 0.59, Nucleated RBC % 0, Differential Comment SCANNED, Diff Path Review May foll, Smudge Cells 3+ 05/24/22 13:00: Sodium 135 L, Potassium 3.5, Chloride 99, Carbon Dioxide 26.0, Anion Gap 10, BUN 23 H, Creatinine 1.61 H, Estim Creat Clear Calc 52.57, Est GFR(MDRD) Af Amer 39 L, Est GFR (MDRD) Non-Af 33 L, BUN/Creatinine Ratio 14.3, Glucose 102, Calcium 8.1 L, Total Bilirubin 0.30, AST 29, ALT 15, Alkaline Phosphatase 71, Total Protein 5.6 L, Albumin 2.0 L, Globulin 3.6, Albumin/Globulin Ratio 0.6 L Radiology Impression Chest X-Ray 05/24/22 12:52 IMPRESSION: Large right pleural effusion with compressive atelectasis in the right lung. Blunting of the left costophrenic angle with atelectasis at the left lung base. Stent is seen in the region of the aortic valve. Electronically Signed: Mahad Rojas MD at 14:02 EST , Thoracentesis Ultrasound 05/24/22 14:12 IMPRESSION: Ultrasound-guided right thoracentesis. Electronically Signed: Mahad Rojas MD at 15:09 EST , Chest X-Ray 05/24/22 14:55 IMPRESSION: No evidence of pneumothorax following right thoracentesis. Electronically Signed: Mahad Rojas MD at 15:10 EST , Assessment & Plan Assessment/Plan (1) Bilateral pleural effusion: (2) Malignant ascites: PLAN: Plan 1. Right large pleural effusion most likely malignant and associated with mild cough, dyspnea at rest and hypoxia: Chest x-ray shows two third of right chest filled with pleural effusion. Had ultrasound-guided thoracocentesis by Dr. Alfonso, 1750 mL blood-tinged fluid drained. Pleural fluid cytology and culture ordered. Pleural fluid analysis pending. Patient is on 1 to 2 L of oxygen. She can lay flat/supine. Cough is also better. Continue guaifenesin and incentive spirometry. She had Zithromax as an outpatient. I think cough isdue to large pleural effusion. 2. Ascites most likely malignant ascites status post 3 paracentesis in banner2022: I ordered ultrasound-guided paracentesis for tomorrow AM. Labs ordered. 3. Pelvic mass: Patient had ultrasound in April 2022 which shows large pedunculated fibroid in left adnexa and moderate ascites. She had laparoscopic biopsy with ascites drainage on 04/15/2022Saturday as per daughter. As per daughter, mass is situated in the left adnexal area. Pathology of the mass is pending. Advised follow-up with PCP and [facility] oncologist 4. Chronic lymphocytic leukemia oncologist: She follows at the [facility]. She has chronically elevated WBC count. WBC 62,000, H&H 10/34%, platelet count 396,000. Mild chronic normocytic normochromic anemia 5. Aortic stenosis/AI status post TAVR in November 2021: Last echo in January2020 to include in clinic. EF 65%. RV normal in size and systolic function. RA moderately dilated. Status post TAVR, portico prosthetic AV size #25. Mild 1+ AR. Mild MR and TR. She had right and left cardiac cath by Dr. Jaxson Torres 2021 reported right heart pressure normal, no intracardiac shunting. Mid LAD 25% otherwise angiographically normal coronary arteries. ALC 52,000 6. RINA on CKD stage IIIb most likely due to recurrent paracentesis: BUN/creatinine 23/1.61. Last BUN/creatinine 17/1.13 on 05/20/2022 with estimatedcreatinine 132 mL/min. Patient also on furosemide 20 mg twice daily. Hold Lasix and lisinopril. 7. Essential hypertension-BP in ED is low therefore hold antihypertensive medication. 8. Hyperlipidemia-patient is on atorvastatin Living will/advanced directive/end of life care: Patient doesn't have living will or advanced directive. Her daughter is power of consumer attorney for health. After discussion of benefits/risks procedures involved with full code, DNR CC arrest and DNR CC, the patient and her daughter opted for full code. Patient does want artificial life support including intubation, tube feed, ventilator and/chest compression, central venous catheter, vasopressor and DC shock if needed Total time spent in [id number] encounter in discussion of advanced directive 17 minutes. Laboratory Results 05/24/22 13:00: WBC 62.1 H*, RBC 3.66 L, Hgb 10.0 L, Hct 33.9 L, MCV 92.6, MCH 27.3, MCHC 29.5 L, RDW Std Deviation 52.1 H, RDW Coeff of Zack 15.9 H, Plt Count 396, MPV 9.1, Immature Gran % (Auto) 0.500, Neut % (Auto) 12.6 L, Lymph % (Auto)84.0 H, [place] % (Auto) 1.7, Eos % (Auto) 1.0, Baso % (Auto) 0.2, Absolute Neuts (auto) 7.8 H, Absolute Lymphs (auto) 52.11 H, Eosinophils % (Manual) 0.59, Nucleated RBC % 0, Differential Comment SCANNED, Diff Path Review May foll, Smudge Cells 3+ 05/24/22 13:00: Sodium 135 L, Potassium 3.5, Chloride 99, Carbon Dioxide 26.0, Anion Gap 10, BUN 23 H, Creatinine 1.61 H, Estim Creat Clear Calc 52.57, Est GFR(MDRD) Af Amer 39 L, Est GFR (MDRD) Non-Af 33 L, BUN/Creatinine Ratio 14.3, Glucose 102, Calcium 8.1 L, Total Bilirubin 0.30, AST 29, ALT 15, Alkaline Phosphatase 71, Total Protein 5.6 L, Albumin 2.0 L, Globulin 3.6, Albumin/Globulin Ratio 0.6 L 05/24/22 14:13: Fluid Glucose Pending, Fluid Total Protein Pending, Fluid LDH Pending 05/24/22 14:25: Fluid Source Pending, Fluid Color Pending, Fluid Appearance Pending, Fluid WBC Pending, Fluid RBC Pending, Fluid Tot Cell Count Pending, Fl Pathologist Comment Pending, Fluid Comment 2 Pending Charges/Coding Visit Charges Inpatient E&M: 52189 Init Hosp L3 Procedures Hospitalists Procedures: 63447 Advncd Care Plan 30 Min 05/24/22 1718 <Electronically signed by Sai Lee MD> Cosigner Signature (if applicable): CC: Dr. Vern Bernardo MD; Dr. Sai Lee MD~ Signed [facility] Work Phone: [phone]) 892-981202-23-[address] Palacios [facility] May 24, 2022 3:47pm Note Date/Time May 24, 2022 2:03pm [facility] Medical Records Department [address] [place] [address] Emergency Department Summary 05/24/22 MR#: [id number] Acct: [id number] Name: ASHLEY ALCANTAR Rep #:[id number] : 1940 81 From: João Palacios MD PCP: Dr. Vern Bernardo MD Status:REG ER Location: ED HPI History of Present Illness Chief Complaint: General Illness Detail of Chief Complaint: Dyspnea, dyspnea on exertion and pulse ox of 81% after activity Informant: patient, family and PCP Onset/Context/Timing Onset: Days Context: Gradual Onset Timing: Continuous and Waxes and wanes Quality: Shortness of breath is worse with activity Location: Not applicable Current Severity: Mild Maximum Severity: Severe Worsened by: Activity or exertion Relieved by: Better with rest Associated Symptoms Associated Symptoms: Patient was recently seen and declined admission. Please read HPI narrativ Narrative Narrative: Patient is an 81-year-old woman who was sent to the emergency room by her primary care physician Dr. Vern Bernardo. Pulse ox was 81% after walking. Sheis tachypneic at rest. She reports dyspnea on exertion. She had a recent procedure at the [facility] to diagnose intra-abdominal mass. C125 level was elevated. She was referred to Dr. Vince Morse. She subsequently was transferred to [facility] for work-up. Patient does have MyChart. The path report is not available for her review. She was seen May 20 in the emergency department. She was noted to have a significant pleural effusion on the right and small pleural effusion on the left. She declined admission. Patient denies fever or chills. She has had occasional sweats. She reports increased abdominal girth. She states the fluid has been drawn more than once while admitted at the [facility]. Cytology is not known. Shehas not had a thoracentesis performed. Prior similar symptoms: Yes Recent Illness/Hospitalization: Yes [facility] Medical History Acute maxillary sinusitis, unspecified Acute sinusitis Acute sinusitis Anxiety Aortic regurgitation Aortic stenosis CKD (chronic kidney disease) Contact with and (suspected) exposure to other viral communicable diseases Contusion of left hand including fingers Diarrhea Elevated blood pressure reading in office without diagnosis of hypertension Elevated TSH Glaucoma Hematuria History of right and left heart catheterization (LHC) (~09/29/21) Incontinence Limb weakness Mixed hyperlipidemia Nonrheumatic aortic (valve) stenosis with insufficiency Post herpetic neuralgia Preop exam for internal medicine Shoulder pain Strain of right trapezius muscle Tinnitus Urinary tract infection with hematuria UTI (urinary tract infection) Home Medications aspirin 81 mg tablet,delayed release 81 mg PO DAILY #1 TAB 09/14/21 [Rx Last Taken 04/26/22] ferrous sulfate 325 mg (65 mg iron) tablet 325 mg PO QODAY 01/29/22 [History Last Taken 04/25/22] atorvastatin 20 mg tablet 20 mg PO QHS CHOLESTEROL 04/28/22 [History Last Taken Unknown] lisinopril 40 mg tablet 40 mg PO DAILY BP 04/28/22 [History Last Taken 04/23/22] furosemide 20 mg tablet 20 mg PO BID #180 tabs 05/14/22 [Rx Last Taken Unknown] potassium chloride 10 mEq tablet,extended release(part/cryst) 10 meq PO DAILY #90 tabs 05/14/22 [Rx Last Taken Unknown] guaifenesin 100 mg/5 mL oral liquid 200 mg (10 mL) PO Q4H PRN cough #200 mL 05/19/22 [Rx Last Taken Unknown] escitalopram oxalate 5 mg tablet (Lexapro) 5 mg PO DAILY #30 tabs 05/21/22 [Rx Last Taken Unknown] Allergy/AdvReac Type Severity Reaction Status Date / Time cephalexin [From Keflex] Allergy Severe Other Verified 05/24/22 11:08 Family History Other Colon cancer Diabetes Myocardial infarction Surgical History History of bilateral cataract extraction History of transcatheter aortic valve replacement (TAVR) (~12/14/21) Social History household members: other details: number of children: 4 current occupational 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 Smoking Status: Former smoker alcohol intake: never substance use type: does not use caffeine: Yes Type: tea Number of servings: 1 ROS ROS ED Constitutional Constitutional ED: Reports sweats; Denies chills, fever(s), subjective or weightloss Eyes Eyes: Denies blurry vision, change in vision or diplopia ENT ENT ED: Denies ear pain, rhinorrhea or sore throat Cardiovascular Cardiovascular: Reports orthopnea; Denies chest pain, palpitations, paroxysmal nocturnal dyspnea or racing heartbeat Respiratory/Chest Respiratory/Chest: Reports cough, dyspnea, dyspnea on exertion and orthopnea; Denies paroxysmal nocturnal dyspnea Gastrointestinal Gastrointestinal: Reports other Details: Increased abdominal girth ; Denies abdominal pain, constipation, diarrhea, melena, nausea or vomiting Genitourinary Genitourinary ED: Denies dysuria, hematuria or urinary frequency Musculoskeletal Musculoskeletal: Denies arthralgias, back pain or myalgias Integumentary Denies rash Neurologic Neurologic: Reports weakness; Denies paresthesias Endocrine Endocrinology: Denies cold intolerance or heat intolerance Hematologic/Lymphatic Hematologic/Lymphatic: Reports anemia and other Details: History of CLL EXAM Physical Exam Const Vital Signs: 05/24/22 12:30 05/24/22 13:25 05/24/22 13:29 Temperature 97.0 F L Temperature Source Temporal Pulse Rate 85 72 Respiratory Rate 16 24 H Respiratory Effort Short of Breath Respiratory Pattern Tachypnea Blood Pressure 116/66 104/65 Blood Pressure Mean 82 78 Pulse Ox 93 88 Oxygen Delivery Method Room Air Room Air Oxygen Flow Rate (L/min) 05/24/22 15:16 Temperature Temperature Source Pulse Rate 65 Respiratory Rate 16 Respiratory Effort Respiratory Pattern Blood Pressure 94/52 L Blood Pressure Mean 66 Pulse Ox 96 Oxygen Delivery Method Nasal Cannula Oxygen Flow Rate (L/min) 1 Positive well nourished and well developed Constitutional Narrative: Patient is tachypneic at rest. There is no use of accessory muscles. General Appearance ED: well developed and pallor; Negative for cyanotic, diaphoretic or NAD HEENT Reports moist mucous membranes HEENT Narrative: Head is atraumatic normocephalic. Ears are normal. Nares are patent. Posterior pharynx is normal. Eyes PERRL and EOMs intact bilaterally General Eye ED: Negative for scleral icterus Neck no lymphadenopathy, supple and no JVD Chest Wall inspection of chest normal and palpation of chest normal Resp No normal respiratory effort and No clear to auscultation bilaterally Resp Narrative: There are no breath sounds 1/2-2/3 of the right hemothorax. There is dullness to percussion consistent with an effusion. Auscultation: rales left base Cardio regular rate, regular rhythm, S1 normal heart sound, S2 normal heart sound and no murmurs GI non-tender and non-distended; Negative for hepatosplenomegaly GI Narrative: Patient has a fluid wave. There is shifting dullness to percussion consistent with Auscultation: hypoactive bowel sounds Palpation: soft; Negative for tender, guarding, splenomegaly, mass or rebound tenderness present Back/Spine no CVA tenderness Cervical Spine: Negative for cervical spine tenderness Thoracic Spine / Upper Back: Negative for thoracic spinal tenderness Lumbar Spine / Lower Back: Negative for lumbar spinal tenderness Extremity Negative for normal to inspection General Extremety ED: Yes edema General Extremity: edema Neuro oriented x3, CN's II-XII intact bilaterally and no sensory deficits noted Sensorium / Orientation: alert Psych Mood & Affect: depressed Skin No no rashes or lesions noted, no wounds and No skin turgor normal General Skin Exam: pallor; Negative for jaundice MDM MDM MDM Narrative Medical decision making narrative: Suspect patient's hypoxia, respiratory symptoms are due to a large right pleuraleffusion. X-ray was obtained to confirm suspicion for a large right pleural effusion. CBC was obtained because patient appears pale and to compare to prior. We will also obtain electrolyte panel to assess BUN/creatinine and electrolyte. Liver profile was obtained to assess transaminases and determine if there is any concern for metastasis of this intra-abdominal mass. Ultrasound-guided thoracentesis was ordered. This was performed by Dr. Glasgow. 1700 cc of bloody cloudy fluid was obtained. Fluid was sent for site allergy. Patient is scheduled for paracentesis tomorrow. The respiratory care technician will contact Dr. Murrieta to change orders for paracentesis to be performed at [facility] which would be much more convenient for the patient. Lab Data Attestation: I reviewed the patient's lab results. Lab results narrative: White count is 62,000 with predominant lymphocytes consistent with CLL. Comprehensive metabolic panel is marked for BUN/creatinine of 23 and 1.61. GFR is 33. Total albumin and total protein are low at 2.0 and 5.6 respectively. Creatinine is elevated from baseline 1.16-1.61. Postthoracentesis chest x-ray reveals residual right pleural effusion. There isno evidence of pneumothorax. Labs: Laboratory Results - last 24 hr 05/24/22 05/24/22 13:00 13:00 WBC 62.1 H* RBC 3.66 L Hgb 10.0 L Hct 33.9 L MCV 92.6 MCH 27.3 MCHC 29.5 L RDW Std Deviation 52.1 H RDW Coeff of Zack 15.9 H Plt Count 396 MPV 9.1 Immature Gran % (Auto) 0.500 Neut % (Auto) 12.6 L Lymph % (Auto) 84.0 H [place] % (Auto) 1.7 Eos % (Auto) 1.0 Baso % (Auto) 0.2 Absolute Neuts (auto) 7.8 H Absolute Lymphs (auto) 52.11 H Eosinophils % (Manual) 0.59 Nucleated RBC % 0 Differential Comment SCANNED Diff Path Review May foll Smudge Cells 3+ Sodium 135 L Potassium 3.5 Chloride 99 Carbon Dioxide 26.0 Anion Gap 10 BUN 23 H Creatinine 1.61 H Estim Creat Clear Calc 52.57 Est GFR (MDRD) Af Amer 39 L Est GFR (MDRD) Non-Af 33 L BUN/Creatinine Ratio 14.3 Glucose 102 Calcium 8.1 L Total Bilirubin 0.30 AST 29 ALT 15 Alkaline Phosphatase 71 Total Protein 5.6 L Albumin 2.0 L Globulin 3.6 Albumin/Globulin Ratio 0.6 L Radiography Chest X-Ray - ED: 2 View and Read by ED Physician (There is a small left pleuraleffusion. There is a significant right pleural effusion which occupies two thirds of one half of the right thorax. The right cardiac silhouette is obscured. There is no significant bony abnormalities noted. This was independently reviewed and interpreted by me.) Diagnostic Testing: Clinical Impression(s) from Imaging Studies Chest X-Ray 05/24/22 12:52 IMPRESSION: Large right pleural effusion with compressive atelectasis in the right lung. Blunting of the left costophrenic angle with atelectasis at the left lung base. Stent is seen in the region of the aortic valve. Electronically Signed: Mahad Rojas MD at 14:02 EST , Thoracentesis Ultrasound 05/24/22 14:12 IMPRESSION: Ultrasound-guided right thoracentesis. Electronically Signed: Mahad Rojas MD at 15:09 EST , Chest X-Ray 05/24/22 14:55 IMPRESSION: No evidence of pneumothorax following right thoracentesis. Electronically Signed: Mahad Rojas MD at 15:10 EST , Treatment and Re-Evaluation Narrative: Patient was 95% on 1 L. Oxygen was removed. Patient dropped to 88%. She was placed back on oxygen. There was a good waveform when pulse ox read 88%. Will contact hospitalist for observation for oxygen therapy and discussed possibilityof having the paracentesis done here at [facility] versus [facility]. Discharge Plan Dx/Rx/DC Orders Clinical Impression: Bilateral pleural effusion, Abdominal ascites, Elevated CA-125, Hypoxia, Abdominal mass, CLL (chronic lymphocytic leukemia), Malignant ascites, Acute kidney insufficiency Disposition Disposition: Acute Care Hospital [facility] What to do if you have Problems For any increased pain, shortness of breath, bleeding, nausea or vomiting, chestpain, or any unexpected problems, contact your Primary Care Provider. Call [facility] ([phone]) or report to the closest Emergency Room. Call 911 if necessary. 05/24/22 1547 <Electronically signed by João Palacios MD> Cosigner Signature (if applicable): CC: Dr. Vern Bernardo MD ~ Signed [facility] Work Phone: [phone]) 200-194402-23-2023 Miscellaneous Notes* Telephone Encounter - Alexandra Chavez RN - 05/24/2022 4:35 PM EST Called patient's daughter after speaking to Brynn at [facility] about a standing order for a therapeutic paracentesis.After consulting with Dr. Borden, it was advised to ask family if they would consider a pleurx drain instead. Patient and daughter wants to wait on pathology to get chemo started to decrease these symptoms. Family voiced wanting to think about the drain and will callthe office after they discuss it. Alexandra Chavez RN Gyn/Onc Chief Of Service [facility] Palacios [facility] May 24, 2022 3:47pm Note Date/Time May 24, 2022 2:03pm [facility] Medical Records Department [address] [place] [address] Emergency Department Summary 05/24/22 MR#: [id number] Acct: [id number] Name: ASHLEY ALCANTAR Rep #:[id number] : 1940 81 From: João Palacios MD PCP: Dr. Vern Bernardo MD Status:REG ER Location: ED HPI History of Present Illness Chief Complaint: General Illness Detail of Chief Complaint: Dyspnea, dyspnea on exertion and pulse ox of 81% after activity Informant: patient, family and PCP Onset/Context/Timing Onset: Days Context: Gradual Onset Timing: Continuous and Waxes and wanes Quality: Shortness of breath is worse with activity Location: Not applicable Current Severity: Mild Maximum Severity: Severe Worsened by: Activity or exertion Relieved by: Better with rest Associated Symptoms Associated Symptoms: Patient was recently seen and declined admission. Please read HPI narrativ Narrative Narrative: Patient is an 81-year-old woman who was sent to the emergency room by her primary care physician Dr. Vern Bernardo. Pulse ox was 81% after walking. Sheis tachypneic at rest. She reports dyspnea on exertion. She had a recent procedure at the [facility] to diagnose intra-abdominal mass. C125 level was elevated. She was referred to Dr. Vince Morse. She subsequently was transferred to [facility] for work-up. Patient does have MyChart. The path report is not available for her review. She was seen May 20 in the emergency department. She was noted to have a significant pleural effusion on the right and small pleural effusion on the left. She declined admission. Patient denies fever or chills. She has had occasional sweats. She reports increased abdominal girth. She states the fluid has been drawn more than once while admitted at the [facility]. Cytology is not known. Shehas not had a thoracentesis performed. Prior similar symptoms: Yes Recent Illness/Hospitalization: Yes [facility] Medical History Acute maxillary sinusitis, unspecified Acute sinusitis Acute sinusitis Anxiety Aortic regurgitation Aortic stenosis CKD (chronic kidney disease) Contact with and (suspected) exposure to other viral communicable diseases Contusion of left hand including fingers Diarrhea Elevated blood pressure reading in office without diagnosis of hypertension Elevated TSH Glaucoma Hematuria History of right and left heart catheterization (LHC) (~09/29/21) Incontinence Limb weakness Mixed hyperlipidemia Nonrheumatic aortic (valve) stenosis with insufficiency Post herpetic neuralgia Preop exam for internal medicine Shoulder pain Strain of right trapezius muscle Tinnitus Urinary tract infection with hematuria UTI (urinary tract infection) Home Medications aspirin 81 mg tablet,delayed release 81 mg PO DAILY #1 TAB 09/14/21 [Rx Last Taken 04/26/22] ferrous sulfate 325 mg (65 mg iron) tablet 325 mg PO QODAY 01/29/22 [History Last Taken 04/25/22] atorvastatin 20 mg tablet 20 mg PO QHS CHOLESTEROL 04/28/22 [History Last Taken Unknown] lisinopril 40 mg tablet 40 mg PO DAILY BP 04/28/22 [History Last Taken 04/23/22] furosemide 20 mg tablet 20 mg PO BID #180 tabs 05/14/22 [Rx Last Taken Unknown] potassium chloride 10 mEq tablet,extended release(part/cryst) 10 meq PO DAILY #90 tabs 05/14/22 [Rx Last Taken Unknown] guaifenesin 100 mg/5 mL oral liquid 200 mg (10 mL) PO Q4H PRN cough #200 mL 05/19/22 [Rx Last Taken Unknown] escitalopram oxalate 5 mg tablet (Lexapro) 5 mg PO DAILY #30 tabs 05/21/22 [Rx Last Taken Unknown] Allergy/AdvReac Type Severity Reaction Status Date / Time cephalexin [From Keflex] Allergy Severe Other Verified 05/24/22 11:08 Family History Other Colon cancer Diabetes Myocardial infarction Surgical History History of bilateral cataract extraction History of transcatheter aortic valve replacement (TAVR) (~12/14/21) Social History household members: other details: number of children: 4 current occupational status: employed 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 [employer] Smoking Status: Former smoker alcohol intake: never substance use type: does not use caffeine: Yes Type: tea Number of servings: 1 ROS ROS ED Constitutional Constitutional ED: Reports sweats; Denies chills, fever(s), subjective or weightloss Eyes Eyes: Denies blurry vision, change in vision or diplopia ENT ENT ED: Denies ear pain, rhinorrhea or sore throat Cardiovascular Cardiovascular: Reports orthopnea; Denies chest pain, palpitations, paroxysmal nocturnal dyspnea or racing heartbeat Respiratory/Chest Respiratory/Chest: Reports cough, dyspnea, dyspnea on exertion and orthopnea; Denies paroxysmal nocturnal dyspnea Gastrointestinal Gastrointestinal: Reports other Details: Increased abdominal girth ; Denies abdominal pain, constipation, diarrhea, melena, nausea or vomiting Genitourinary Genitourinary ED: Denies dysuria, hematuria or urinary frequency Musculoskeletal Musculoskeletal: Denies arthralgias, back pain or myalgias Integumentary Denies rash Neurologic Neurologic: Reports weakness; Denies paresthesias Endocrine Endocrinology: Denies cold intolerance or heat intolerance Hematologic/Lymphatic Hematologic/Lymphatic: Reports anemia and other Details: History of CLL EXAM Physical Exam Const Vital Signs: 05/24/22 12:30 05/24/22 13:25 05/24/22 13:29 Temperature 97.0 F L Temperature Source Temporal Pulse Rate 85 72 Respiratory Rate 16 24 H Respiratory Effort Short of Breath Respiratory Pattern Tachypnea Blood Pressure 116/66 104/65 Blood Pressure Mean 82 78 Pulse Ox 93 88 Oxygen Delivery Method Room Air Room Air Oxygen Flow Rate (L/min) 05/24/22 15:16 Temperature Temperature Source Pulse Rate 65 Respiratory Rate 16 Respiratory Effort Respiratory Pattern Blood Pressure 94/52 L Blood Pressure Mean 66 Pulse Ox 96 Oxygen Delivery Method Nasal Cannula Oxygen Flow Rate (L/min) 1 Positive well nourished and well developed Constitutional Narrative: Patient is tachypneic at rest. There is no use of accessory muscles. General Appearance ED: well developed and pallor; Negative for cyanotic, diaphoretic or NAD HEENT Reports moist mucous membranes HEENT Narrative: Head is atraumatic normocephalic. Ears are normal. Nares are patent. Posterior pharynx is normal. Eyes PERRL and EOMs intact bilaterally General Eye ED: Negative for scleral icterus Neck no lymphadenopathy, supple and no JVD Chest Wall inspection of chest normal and palpation of chest normal Resp No normal respiratory effort and No clear to auscultation bilaterally Resp Narrative: There are no breath sounds 1/2-2/3 of the right hemothorax. There is dullness to percussion consistent with an effusion. Auscultation: rales left base Cardio regular rate, regular rhythm, S1 normal heart sound, S2 normal heart sound and no murmurs GI non-tender and non-distended; Negative for hepatosplenomegaly GI Narrative: Patient has a fluid wave. There is shifting dullness to percussion consistent with Auscultation: hypoactive bowel sounds Palpation: soft; Negative for tender, guarding, splenomegaly, mass or rebound tenderness present Back/Spine no CVA tenderness Cervical Spine: Negative for cervical spine tenderness Thoracic Spine / Upper Back: Negative for thoracic spinal tenderness Lumbar Spine / Lower Back: Negative for lumbar spinal tenderness Extremity Negative for normal to inspection General Extremety ED: Yes edema General Extremity: edema Neuro oriented x3, CN's II-XII intact bilaterally and no sensory deficits noted Sensorium / Orientation: alert Psych Mood & Affect: depressed Skin No no rashes or lesions noted, no wounds and No skin turgor normal General Skin Exam: pallor; Negative for jaundice MDM MDM MDM Narrative Medical decision making narrative: Suspect patient's hypoxia, respiratory symptoms are due to a large right pleuraleffusion. X-ray was obtained to confirm suspicion for a large right pleural effusion. CBC was obtained because patient appears pale and to compare to prior. We will also obtain electrolyte panel to assess BUN/creatinine and electrolyte. Liver profile was obtained to assess transaminases and determine if there is any concern for metastasis of this intra-abdominal mass. Ultrasound-guided thoracentesis was ordered. This was performed by Dr. Glasgow. 1700 cc of bloody cloudy fluid was obtained. Fluid was sent for site allergy. Patient is scheduled for paracentesis tomorrow. The respiratory care technician will contact Dr. Murrieta to change orders for paracentesis to be performed at [facility] which would be much more convenient for the patient. Lab Data Attestation: I reviewed the patient's lab results. Lab results narrative: White count is 62,000 with predominant lymphocytes consistent with CLL. Comprehensive metabolic panel is marked for BUN/creatinine of 23 and 1.61. GFR is 33. Total albumin and total protein are low at 2.0 and 5.6 respectively. Creatinine is elevated from baseline 1.16-1.61. Postthoracentesis chest x-ray reveals residual right pleural effusion. There isno evidence of pneumothorax. Labs: Laboratory Results - last 24 hr 05/24/22 05/24/22 13:00 13:00 WBC 62.1 H* RBC 3.66 L Hgb 10.0 L Hct 33.9 L MCV 92.6 MCH 27.3 MCHC 29.5 L RDW Std Deviation 52.1 H RDW Coeff of Zack 15.9 H Plt Count 396 MPV 9.1 Immature Gran % (Auto) 0.500 Neut % (Auto) 12.6 L Lymph % (Auto) 84.0 H [place] % (Auto) 1.7 Eos % (Auto) 1.0 Baso % (Auto) 0.2 Absolute Neuts (auto) 7.8 H Absolute Lymphs (auto) 52.11 H Eosinophils % (Manual) 0.59 Nucleated RBC % 0 Differential Comment SCANNED Diff Path Review May foll Smudge Cells 3+ Sodium 135 L Potassium 3.5 Chloride 99 Carbon Dioxide 26.0 Anion Gap 10 BUN 23 H Creatinine 1.61 H Estim Creat Clear Calc 52.57 Est GFR (MDRD) Af Amer 39 L Est GFR (MDRD) Non-Af 33 L BUN/Creatinine Ratio 14.3 Glucose 102 Calcium 8.1 L Total Bilirubin 0.30 AST 29 ALT 15 Alkaline Phosphatase 71 Total Protein 5.6 L Albumin 2.0 L Globulin 3.6 Albumin/Globulin Ratio 0.6 L Radiography Chest X-Ray - ED: 2 View and Read by ED Physician (There is a small left pleuraleffusion. There is a significant right pleural effusion which occupies two thirds of one half of the right thorax. The right cardiac silhouette is obscured. There is no significant bony abnormalities noted. This was independently reviewed and interpreted by me.) Diagnostic Testing: Clinical Impression(s) from Imaging Studies Chest X-Ray 05/24/22 12:52 IMPRESSION: Large right pleural effusion with compressive atelectasis in the right lung. Blunting of the left costophrenic angle with atelectasis at the left lung base. Stent is seen in the region of the aortic valve. Electronically Signed: Mahad Rojas MD at 14:02 EST , Thoracentesis Ultrasound 05/24/22 14:12 IMPRESSION: Ultrasound-guided right thoracentesis. Electronically Signed: Mahad Rojas MD at 15:09 EST , Chest X-Ray 05/24/22 14:55 IMPRESSION: No evidence of pneumothorax following right thoracentesis. Electronically Signed: Mahad Rojas MD at 15:10 EST , Treatment and Re-Evaluation Narrative: Patient was 95% on 1 L. Oxygen was removed. Patient dropped to 88%. She was placed back on oxygen. There was a good waveform when pulse ox read 88%. Will contact hospitalist for observation for oxygen therapy and discussed possibilityof having the paracentesis done here at [facility] versus [facility]. Discharge Plan Dx/Rx/DC Orders Clinical Impression: Bilateral pleural effusion, Abdominal ascites, Elevated CA-125, Hypoxia, Abdominal mass, CLL (chronic lymphocytic leukemia), Malignant ascites, Acute kidney insufficiency Disposition Disposition: Acute Care Hospital [facility] What to do if you have Problems For any increased pain, shortness of breath, bleeding, nausea or vomiting, chestpain, or any unexpected problems, contact your Primary Care Provider. Call [facility] ([phone]) or report to the closest Emergency Room. Call 911 if necessary. 05/24/22 1547 <Electronically signed by João Palacios MD> Cosigner Signature (if applicable): CC: Dr. Vern Bernardo MD ~ Signed [facility] Work Phone: [phone]) 191-289502-23-2023 Miscellaneous Notes* Telephone Encounter - Alexandra Chavez RN - 05/24/2022 3:54 PM EST Patient's daughter calling into office to make us aware that patient is getting admitted overnight in [place] after being told to go to the ED by PCP this afternoon. Per Giovanna patient's PCP heardfluid on patient's lungs in addition to her abdomen being full of fluid which prompted him to direct family to ED. Upon going to ED per Giovanna nearly 2L of fluid was removed from patient's lungs. Giovanna voiced that while patient is admitted, it is planned to perform drainage of patient's abdominal fluid on tomorrow 05/25. Informed Giovanna that I will cancel the paracentesis for tomorrow . Much reassurance and emotional support given. Asked Giovanna to keep the office aware of patient's health status. Alexandra Chavez RN Gyn/Onc Chief Of Service documented in this encounterC[facility] Miscellaneous Notes* Telephone Encounter - Alexandra Chavez RN - 05/24/2022 11:21 AM EST Called patient's daughter to inform her that the patient has an appointment for paracentesis in Building here at [facility] on Thursday 05/25 at 0730 am. Giovanna appreciative of call. Alexandra Chavez RN Gyn/Onc Chief Of Service documented in this encounterC[facility]02-23-2023 Miscellaneous Notes* Telephone Encounter - Alexandra Chavez RN - 05/24/2022 11:02 AM EST Returned patient's daughter Giovanna's call in regards to patients 's abdomen filling up with fluid. Giovanna voices that the patient was drained on last Saturday but is now complaining of not being able to breathe when lying down so she can not sleep. Giovanna voices that the patient has mild swelling to her feet and ankles. That she also has a cough that is getting better. Patient has recently been to the ED, but no pneumonia was found per Giovanna. Giovanna voices patient's abdomen seems like it may be getting firm. Patient is able to move around and is stable at this time. Patienthas an appointment with her PCP today at 1130 am and is well enough to go to this appointment. Informed Giovanna to call the office and update us about the appointment today,. I also informed Giovanna that as a back up I will work on getting her an appointment to be drained.Giovanna agrees with plan . Alexandra Chavez RN Gyn/Onc Chief Of Service documented in this encounterC[facility]02-20-[facility] History of Present illness Narrative* Samra Cee, MULTICUT LINE OPERATOR.[facility] - 05/21/2022 8:53 AM EST TELEVISIT PROGRESS NOTE This is a telephone encounter initiated for an established patient, parent or guardian not originating from a related Evaluation & Management service provided within the previous 7 days nor leading to an Evaluation & Management service or procedure within the next 24 hours or soonest available appointment. Patient name and birthday verified: Yes Location of patient: Home DATE OF SERVICE: 05/21/2022 REASON FOR TELEVISIT: Postop SURGERY & DATE: Diagnostic laparoscopy, peritoneal biopsies, and drainage of ascites on 05/16/22. PATHOLOGY: In process SUBJECTIVE/INTERVAL HISTORY: Ashley Alcantar reports that she feels OK~ reports she is suffering from a chest cold and anxiety. Taking tylenol as needed for pain. No fever or chills. Reports minimal spotting. No shortness of breath or chest pain. Reports + cough~ states she was seen by her PCP for chest cold in which she was started on an antibiotic and was also seen in the ER yesterday. No incisional redness, swelling, or drainage. Patient reports that her appetite is fair. No abdominal pain, vomiting, diarrhea, or constipation. Reports intermittent nausea. No dysuria, gross hematuria, urinary frequency, urinary urgency, or incontinence. Her ECOG performance status is 1 (restricted in physically strenuous activity but ambulatory and able to carry out work of a light or sedentary nature). OBJECTIVE: Deferred for televisit ASSESSMENT: 81 year old female with ascites and pelvic mass s/p Diagnostic laparoscopy, peritoneal biopsies, and drainage of ascites on 05/16/22. PLAN: 1. Patient informed that final pathology is still in process~ daughter present for visit today, patient request that our office call her daughter Giovanna with the pathology results. 2. Postop restrictions reviewed. 3. Patient informed that she has a post op follow up apt scheduled with Dr. Borden on 06/07/22. Appointments for Next 60 Days Date Time Provider Location Dept Phone 05/21/2022 10:30 AM SAMRA CEE [facility] [phone] 06/07/2022 3:30 PM ARY BODREN [facility] [phone] 06/25/2022 8:50 AM RUDDY PATRICIO [facility] [phone] Samra Cee APRN.STORE LOSS PREVENTION MANAGER documented in this encounterC[facility] Clinic [facility]02-14-2023 Miscellaneous Notes* Telephone Encounter - Viktoriya Gupta RN - 05/15/2022 3:51 PM EST Verified name and . Patient wanted to know what her Potassium level was because her PCP called in a script for potassium and should she take the potassium dose in the morning before her surgery. Iinformed the patient that her potassium level is 3.6 and she should take her dose tonight and tomorrow. Also that we will have her potassium level redrawn tomorrow. Patient was appreciative for the information. Viktoriya Gupta RN Chief Of Service * Telephone Encounter - Viktoriya Gupta RN - 05/15/2022 3:48 PM EST ----- Message from Charlie Cobian Adm sent at 05/15/2022 2:44 PM EST ----- Regarding: Isabela Ph. [phone] Patient calling Wanted to know what her potassium level is from her blood test yesterday as her PCP has send in a Rx for potassium documented in this encounterC[facility]02-14-2023 Miscellaneous Notes* Telephone Encounter - Marisel Cook APRN.CNP - 05/15/2022 11:57 AM EST atient daughter Giovanna calling Has some questions regarding the procedure that patient is having tomorrow, 05/16 Ph. [phone] Called patient's daughter to answer questions Regarding mom's surgery tomorrow, discussed laparoscopic approach and possible removal of ovaries. Patient is satisfied with answers. OK for surgery tomorrow. Marisel Cook APRN.CNP documented in this encounterC[facility]02-14-2023 Miscellaneous Notes* Telephone Encounter - Ruddy Patricio DO - 05/15/2022 10:50 AM EST Yes, your increased lymphocyte count is not a contraindication to surgery. Ruddy Patricio DO * Telephone Encounter - Karina Enamorado APRN.CNP - 05/15/2022 10:02 AM EST Is pt optimized for surgery tomorrow? Hx CLL, under surveillance. Pt's at laparoscopy, biopsies possible removal of ovaries and tubes with Dr. Ary Borden Please review CBC with diff: WBC 59.90 05/14/2022 RBC 3.68 05/14/2022 Hemoglobin 10.2 05/14/2022 Hematocrit 33.8 05/14/2022 MCV 91.8 05/14/2022 MCH 27.7 05/14/2022 MCHC 30.2 05/14/2022 RDW-CV 14.8 05/14/2022 Platelet Count 422 05/14/2022 MPV 9.7 05/14/2022 Neut% 13.0 05/14/2022 Lymph% 86.0 05/14/2022 [place]% 0.0 05/14/2022 Baso% 0.0 05/14/2022 Abs Neut (Segs + Bands) 7.79 05/14/2022 Abs [place] 0.00 05/14/2022 Abs Eosin 0.60 05/14/2022 Abs Baso 0.00 05/14/2022 documented in this encounterC[facility]02-13-2023 Instructions* Patient Instructions* Karina Enamorado APRN.STORE LOSS PREVENTION MANAGER - 05/14/2022 3:27 PM EST PATIENT PREOPERATIVE INSTRUCTIONS Ary Borden MD has scheduled you for your procedure at this surgery center: [facility] Nursery [place] Scheduling Office: [phone] --[address] [place] [address]. Please read below carefully for your personalized instructions. Dietary Restrictions: - No solid food after midnight. - You may have 12 ounces of clear liquids (water, clear juices such as apple juice or gatorade, carbonated beverages, clear tea, black coffee, jello) until 2 hours before scheduled arrival at facility. No red/purple coloring and no creamer/sugar Medications: Unless instructed differently below, stay on all of your medications until your surgery. Approved medications to take the morning of surgery with a sip of water: NONE If you take any medications for erectile dysfunction-Cialis (Tadalafil), Levitra, Staxyn (Vardenafil) Viagra (Sildenenafil please do not take these for 48 hours before surgery. If you start any new medications after today's visit, please contact the surgeon's office. Blood Thinning Medications: - Stop NSAIDS (Ibuprofen, Advil, Aleve, Motrin, Celebrex, Mobic, etc.) 7 days before surgery, as directed by your surgeon. - Stop Aspirin 7 days before surgery, as directed by your surgeon. - Stop Vitamin E, ALL multi-vitamins, herbals and dietary supplements 7 days before surgery. - You may take Tylenol (Acetaminophen) or any of your pain medications that do not contain aspirin or NSAIDS as needed. Important Reminders: - Candy, mints, and tobacco products are NOT permitted the morning of surgery. - Hearing aids, dentures and glasses may be worn the morning of surgery. - NO jewelry, body piercings, makeup, hairpins or contacts are to be worn the day of surgery. If you develop symptoms such as a fever, cold, or flu, or have other changes to your health within TWO DAYS of scheduled surgery or the morning of surgery, please contact the surgery center above. Personal Belongings: -Please have photo ID and insurance cards. -If you do not have a copy of advance directives on file with us, please bring a copy with you on the day of surgery. - Leave ALL valuables and money at home or with family members. For Outpatient Procedures: - YOU MUST HAVE A RESPONSIBLE HEAVY MEDIA OPERATOR TAKE YOU HOME. A AUTO INSPECTION SPECIALIST OR DIRECTOR OF LEADERSHIP DEVELOPMENT CANNOT BE MADE A RESPONSIBLE HEAVY MEDIA OPERATOR. - We recommend that a responsible person stays with you overnight to take care of you. - You cannot stay in a hotel alone after outpatient surgery. You will not be permitted to have yoursurgery, if you do not have someone to take care of you. Arrival Time for Surgery: - To obtain your arrival time for surgery, call your physician's office the day before your surgery. - If your surgery is scheduled for Saturday, call the Saturday before. Your surgeon s stenographer secretary will tell you what time to call the office. - If you have not reached the departmental stenographer secretary by 5 P.M., call [phone] after 5 P.M. the day before your surgery. Please be aware that emergency situations arise, which may delay or change your surgical time. If this happens, we will notify you as soon as possible and regret any inconvenience. If you already have an Advance Directive, please fax a copy to [phone] or email to for it to be added to your chart. If you do not have an Advance Directive, you can find the appropriate form and more information at [email or web address]. We recommend that youcomplete the Advance Directive form found on the website and bring it with you the day of your surgery. It can be witnessed and scanned into your chart that day. Karina Enamorado APRN.JOSE documented in this encounterCleveland Clinic [facility]02-13-2023 History and physical note * Karina Enamorado APRN.CNP - 05/14/2022 3:21 PM EST HISTORY AND PHYSICAL EXAMINATION SERVICE DATE: 05/14/2022 SERVICE TIME: 10:08 AM PRIMARY CARE PHYSICIAN: Vern Brenardo MD REASON FOR VISIT: Ashley Alcantar is a 81 year old female who is scheduled for Procedure(s): laparoscopy, biopsies possible removal of ovaries and tubes (Bilateral) at the request of Dr. Clarke Borden for consultation. My final recommendation will be communicated back to the requesting physician by way of shared medical record or letter. Subjective The patient has the following: ACTIVE PROBLEM LIST Nonrheumatic Aortic Valve Stenosis Leukocytosis Cll (Chronic Lymphocytic Leukemia) (Hcc) Primary Hypertension Chronic Diastolic Heart Failure (Hcc) Nonrheumatic Mitral Valve Regurgitation Nonrheumatic Aortic Valve Insufficiency Nonrheumatic Tricuspid Valve Regurgitation S/P Tavr (Transcatheter Aortic Valve Replacement) Former Smoker Coronary Artery Disease Involving [place] Coronary Artery of [place] Heart Without Angina Pectoris Gerd (Gastroesophageal Reflux Disease) Ckd (Chronic Kidney Disease) Veronique (Iron Deficiency Anemia) Ascites COVID-19 Immunization Status COVID-19 VACCINE (Series Information) Completed 03/10/2022 Imm Admin: COVID-19 booster vaccine, age 12+ yr, bivalent (PFIZER-BIONTECH) 08/20/2021 Imm Admin: COVID-19 vaccine, age 12+ yr (PFIZER-BIONTECH - MEYERS TOP) 12/26/2020 Imm Admin: COVID-19 vaccine, age 12+ yr (PFIZER-BIONTECH - PURPLE TOP) Only the first 3 history entries have been loaded, but more history exists. CHIEF COMPLAINT: Pre-op exam HPI: Ashley Alcantar is a 81 year old seen for PAC due to scheduled above surgery because of a pelvic mass/ascites. 05/03/2022, Dr. Ary Borden Ashley Alcantar presents today with her daughter for a second opinion regarding pelvic mass, elevated CA 125, and ascites. Briefly, she is an 81 year old female who has a past medical history of Anemia, Aortic stenosis, CLL (chronic lymphocytic leukemia) (HCC), and Essential hypertension. Patientwas seen by Dr. Brittani Antonio on 04/18/2022. HPI taken from Dr. Antonio's 04/18/2022 note: Patient noted lower abdominal pain in bilateral lower quadrants in January 2022 which continued and worsened into March leading to evaluation with her PCP and general surgeon which led to CT reviewed below. She was also told she had bilateral inguinal hernias. Taking tylenol extra strength 1-2times daily for her abdominal pain. She reports occasional nausea and loss of appetite but nothing sustained. Denies bloating or increasing abdominal girth. Denies changes in bowel or bladder habits, no constipation or diarrhea. IMAGING- Pelvic US 04/05/2022: FINDINGS: UTERUS: Anteverted. The uterus measures 5.9 x 4.7 x 2.7 cm. There is a large pedunculated fibroid on the left measuring 6.1 x 8.4 x 6.4 cm The endometrial stripe measures 3 mm in AP diameter which is within normal limits. The normal ovaries are not visualized due to bowel gas producing artifact FREE FLUID: Moderate IMPRESSION: Large pedunculated fibroid in the left adnexa with moderate ascites. No definitive evidence for ovarian mass however the ovaries are not visualized due to bowel gas producing artifact CT w/ IV contrast, chest/abdomen/pelvis 11/03/2021: From Results of report- ABDOMEN: The liver, gallbladder, spleen, and pancreas appear normal. The adrenal glands appear normal. Multiple bilateral renal cyst (largest measures 2.7 cm on the right and 4.2 cm and left Both kidneys are normal in size, shape, and density. There is no abnormal mass or hydronephrosis. PELVIS: There is no significant retroperitoneal adenopathy. No free fluid or free air within the abdomen or pelvis. Small bowel containing RIGHT inguinal hernia. Mild prominence of pelvic vasculature and gonadal veins. The bowel appears unremarkable on this non-GI contrast examination. The urinary bladder appears normal. There are scattered phleboliths within the deep pelvis. BONES: Diffuse osteopenia REVIEW OF SYSTEMS: General: No weight loss, malaise or fevers. Neurological: No history of TIA's, stroke, SENIOR CIVIL ENGINEER tumor, impaired sensorium, hemiplegia, paraplegia orquadraplegia. No neurological symptoms or problems. Respiratory: No history of current cough or dyspnea, or pneumonia in the past 6 weeks. No history of respiratory/pulmonary symptoms or problems. Cardiovascular: Positive for: anticoagulation therapy (ASA), CHF, hypertension, murmur/valvular heart disease and valve surgery Negative for: arrhythmia, atrial fibrillation, CAD, chest pain, congenital heart defect, DVT/PE, hyperlipidemia, recent UT and open heart surgery. GI: See HPI. Positive for: GERD (otc rx as needed) Negative for: abdominal pain, dysphagia and ETOH >2 drinks/day. : Positive for: renal failure. Patient's renal failure is chronic. Negative for: nephrolithiasis and urinary tract infection. CONFERENCE RESERVATIONIST: See HPI. Endocrine: No history of diabetes. Has not taken steroids within the past 30 days. No history of endocrinological symptoms or problems. Hematology: Positive for: anemia, iron deficiency anemia and chronic anti- coagulation/platelet meds. Patient neris anti-coagulation/platelet medication(s): Aspirin. Negative for: bruises/bleeds easily and transfusion of at least 4 units within 72 hours prior to surgery. Oncology: +CLL, under surveillance by [facility] hematology/oncology Psych: No history of psychiatric symptoms or problems. Musculoskeletal: Positive for: swelling (on rx). Skin: Negative for lesions, rash and itching. PAST MEDICAL HISTORY Diagnosis Date Anemia Aortic stenosis CLL (chronic lymphocytic leukemia) (HCC) Essential hypertension PAST SURGICAL HISTORY Procedure Laterality Date ANESTH, SECTION 11/19/1970 PARACENTESIS x2 PERCUTANEOUS AORTIC VALVE REPLACEMENT 11/2021 REMV CATARACT EXTRACAP,INSERT LENS Right 06/20/2021 REMV CATARACT EXTRACAP,INSERT LENS Left 07/11/2021 TONSILLECTOMY & ADENOIDECTOMY <AGE 11 age 28 TOOTH EXTRACTION 11/01/2021 FAMILY HISTORY Problem Relation Age of Onset other (ALS) Mother other (CHF) Mother Emphysema Father Heart Sister Heart Attack Sister Tuberculosis Sister Tuberculosis Sister Colon Cancer Sister Diabetes Sister Diabetes Brother Diabetes Brother Diabetes Brother other (atrial fibrillation) Child Social History Tobacco Use Smoking status: Former Packs/day: 0.50 Years: 25.00 Pack years: 12.50 Types: Cigarettes Quit date: 06/03/2014 Years since quittin.9 Smokeless tobacco: Never Vaping Use Vaping Use: Never used Substance Use Topics Alcohol use: Never Drug use: Never Prior to Admission medications as of 05/14/22 1533 Medication Sig Last Dose Taking furosemide (LASIX) 20 mg tablet Take 20 mg by mouth twice daily. Taking Yes vit C/E/cuperic/zinc/lutein (EYE MULTIVIT-LUTEIN,C-E-CU-ZN, ORAL) Take by mouth. Taking Yes cyanocobalamin, vitamin B-12, (VITAMIN B-12 ORAL) Take by mouth. Taking Yes ferrous sulfate 325 mg (65 mg iron) tablet Take 1 tablet by mouth once daily. Taking Yes aspirin 81 mg chewable tablet Take 1 tablet by mouth once daily. Taking Yes ascorbic acid, vitamin C, 500 mg cap Take 500 mg by mouth once daily. Taking Yes lisinopril (ZESTRIL, PRINIVIL) 40 mg tablet Take 40 mg by mouth once daily. atorvastatin (LIPITOR) 20 mg tablet Take 20 mg by mouth daily at bedtime. potassium chloride ER (K-DUR, KLOR-CON) 20 mEq tablet Take 20 mEq by mouth twice daily. No medication comments found. ALLERGIES Allergen Reactions Keflex [Cephalexin] Rash Mouth blisters, thrush Objective PHYSICAL EXAM: General: alert and oriented (x3) and healthy appearance. Pertinent negatives noted - not distressed. Skin: normal color, no rash or lesions. HEENT: EOM intact and pupils equal round. Pertinent negatives noted - no carotid bruit. Cardiovascular: regular rate and rhythm, normal S1 and S2, no rub, murmurs, or gallop. Respiratory: normal breath sounds, no wheezes or crackles. No chest wall deformity or tenderness. Abdomen: bowel sounds present and distended. Pertinent negatives noted - not tender. Extremities: no deformity, no edema or tenderness, no joint swelling or clubbing. Positive for edema. Neurological: normal cognition and motor skills. Gait normal. No weakness or sensory deficit. PAIN ASSESSMENT: VITALS: BP 118/70 Pulse 99 Temp (Src) 98.9 (Temporal) Resp 14 Ht 4' 10.5 (1.49m) Wt 127 lb (57.6kg) SpO2 98% BMI 26.09 kg/(m^2). Diagnostic tests reviewed for today's visit: Lab Value Units Date High Low HB 10.2 g/dL 05/14/2022 15.5 11.5 HCT 33.8 % 05/14/2022 46.0 36.0 WBC 59.90 k/uL 05/14/2022 11.00 3.70 PLT 422 k/uL 05/14/2022 400 150 NA 139 mmol/L 05/14/2022 144 136 K 3.6 mmol/L 05/14/2022 5.1 3.7 GLUC 102 mg/dL 05/14/2022 99 74 BUN 19 mg/dL 05/14/2022 21 7 CREAT 1.02 mg/dL 05/14/2022 0.96 0.58 PTSEC 9.2 sec 05/14/2022 <13.1 INR 0.9 no uni* 05/14/2022 1.3 0.9 APTT 31.0 sec 05/14/2022 32.4 23.0 ALT 8 U/L 05/14/2022 38 7 AST 22 U/L 05/14/2022 35 13 TBILI <0.2 mg/dL 05/14/2022 1.3 0.2 TSH No results within date range. Lab Value Units Date High Low HCGQT No results within date range. UHCG No results within date range. HCG, BODY* No results within date range. Lab Value Units Date High Low ABORHD No results within date range. ABSCREEN No results within date range. No results found for: HBA1C Recent Results (from the past 8760 hour(s)) ECG COMPLETE Collection Time: 05/14/22 4:23 PM Result Value Ventricular Rate 92 Atrial Rate 92 P-R Interval 158 QRS Duration 78 QT Interval 374 QTC Calculation (Bazett) 462 Calculated P [place] 60 Calculated R [place] 10 Calculated T [place] 64 Impression NORMAL SINUS RHYTHM NORMAL ECG Recent Results (from the past 98200 hour(s)) ECHO Collection Time: 02/23/22 1:48 PM Impression CONCLUSIONS: - Exam indication: S/P TAVR (12/14/21) - The left ventricle is normal in size. Left ventricular systolic function is normal. EF = 65 5% (2D biplane) - The right ventricle is normal in size. Right ventricular systolic function is normal. - The right atrial cavity is moderately dilated. - S/P transcatheter aortic valve replacement. Portico prosthetic aortic valve (size #25). There is mild (1+) aortic valve regurgitation. The peak gradient is 29 mmHg, the mean gradient is 14 mmHg and the dimensionless valve index is 0.45. Prior pk/mn gradients: 24/10 mmHg. - Mild MR and TR. - Exam was compared with the prior CC echocardiographic exam performed on 12/14/2021 (LIMITED), similar findings (modest increase in TAVR gardients). * * * Final * * * Assessment Patient has the following medical conditions which may affect christal-operative course: S/P TAVR (transcatheter aortic valve replacement) Assessment: s/p 11/2021, daily ASA, following [facility] cardiology and local plastic die maker apprentice Dr. Puri, EF 65%, 1+ AVR post-op echo 01/202202/23/2022 Dr. Roth, [facility] CHIEF COMPLAINT: Follow-up post TF MALCOLM with 25 mm Portico NG on 12/14/2021 Mild CAD Hypertension HISTORY OF PRESENT ILLNESS: Ms. Alcantar remains well clinically. Her SBPs range between 130-150 mmHg. ECG today shows sinus rhythm. Echocardiogram today shows an LVEF of 65%. The RVSP is mildly elevated at 39 mmHg. There is 1-2+ MR, 1-2+ TR. The peak/mean transaortic gradients are 29/14 mmHg respectively, with trace to 1+ PVL. DI0.45. IMPRESSION: Good clinical and imaging result post TF MALCOLM. Her systolic blood pressures are little on the high side and we can try to optimize her antihypertensive medications with a general plastic die maker apprentice. PLAN AND RECOMMENDATIONS: She will have an echocardiogram performed locally around November next year and we can catch up onthe phone to discuss. Of increased lisinopril up to 30 mg daily and have asked her to keep an eye on the blood pressure and to follow-up with her local plastic die maker apprentice to tweak this if needed. Given that she has mild lipid buildup in her coronaries she should ideally be on a statin but I will leave this up to her local plastic die maker apprentice. Nir Roth MD, PhD, FRACP Primary hypertension Assessment: controlled on rx Last 14 BP Last 14 Encounter BP Readings: Date: BP: 05/14/2022 118/70 04/27/2022 126/58 04/19/2022 131/57 04/18/2022 102/64 04/13/2022 112/68 02/23/2022 156/60[right arm[ 12/25/2021 158/59 12/22/2021 147/60 12/14/2021 88/39 12/13/2021 119/53 12/05/2021 106/58 11/03/2021 150/59 08/03/2021 105/53 Nonrheumatic mitral valve regurgitation Assessment: mild MVR Nonrheumatic tricuspid valve regurgitation Assessment: mild TVR CLL (chronic lymphocytic leukemia) (HCC) Assessment: under surveillance, following [facility] oncology/hematology CBC with diff: WBC 59.90 05/14/2022 RBC 3.68 05/14/2022 Hemoglobin 10.2 05/14/2022 Hematocrit 33.8 05/14/2022 MCV 91.8 05/14/2022 MCH 27.7 05/14/2022 MCHC 30.2 05/14/2022 RDW-CV 14.8 05/14/2022 Platelet Count 422 05/14/2022 MPV 9.7 05/14/2022 Neut% 13.0 05/14/2022 Lymph% 86.0 05/14/2022 [place]% 0.0 05/14/2022 Baso% 0.0 05/14/2022 Abs Neut (Segs + Bands) 7.79 05/14/2022 Abs [place] 0.00 05/14/2022 Abs Eosin 0.60 05/14/2022 Abs Baso 0.00 05/14/2022 Chronic diastolic heart failure (HCC) Assessment: on rx, EF 65% 01/2022 Former smoker Assessment: 0.5ppd/25 years, denies asthma or COPD Coronary artery disease involving tangirnaq coronary artery of tangirnaq heart without angina pectoris Assessment: non-obstructing, c/w statin and ASA, denies CP, palpitations or SOB GERD (gastroesophageal reflux disease) Assessment: otc rx as needed CKD (chronic kidney disease) Assessment: Creatinine Date Value Ref Range Status 05/14/2022 1.02 (H) 0.58 - 0.96 mg/dL Final 04/18/2022 1.12 (H) 0.58 - 0.96 mg/dL Final 12/15/2021 1.36 (H) 0.58 - 0.96 mg/dL Final 12/13/2021 1.38 (H) 0.58 - 0.96 mg/dL Final VERONIQUE (iron deficiency anemia) Assessment: on rx Hemoglobin (g/dL) Date Value 05/14/2022 10.2 Hematocrit (%) Date Value 05/14/2022 33.8 WBC (k/uL) Date Value 05/14/2022 59.90 Ascites Assessment: on rx, s/p paracentesis 04/30/2022 IFD at [facility] Assessment Plan Assessment/Plan (1) CLL (chronic lymphocytic leukemia): (2) Ascites: PLAN: Mildly elevated peritoneal wbc count, suspect this is due to her high wbc from her CLL. Reviewed [facility] records. Fluid cx remains neg. Ok for d/c home off of abx. Minor Activity Status Index: METS: Walk indoors, such as around the house (1.75 METs) Do light work around the house, such as dusting or washing dishes (2.70 METs) Take care of self; that is eating, dressing, bathing, using the toilet (2.75 METs) Walk a block or two on level ground (2.75 METs) DASI Score: 9.95 Patient denies any chest pain or undue shortness of breath with the above physical activity. Clinical Frailty Scale: 4. Apparently vulnerable STOP-Bang Score: Has or is being treated for high blood pressure Patient over 50 years old Denies snoring loudly Denies feeling tired, fatigued, or sleepy during the daytime Has not been observed to stop breathing or choking/gasping during sleep BMI less than or equal to 35 kg/m^2 Does not have a large neck Non-male patient STOP-Bang Score: 2 [id number] Score: Age: >=75 Sex: female CHF history: Yes Hypertension history: Yes Stroke/TIA/thromboembolism history: No Vascular disease history: No Diabetes history: No [id number] Score: 5 ARISCAT Score: Age: >80 Preoperative SpO2: >=96% Respiratory infection in the last month: No Preoperative anemia: No Surgical incision: upper abdominal Duration of surgery: <2 hrs Emergency procedure: No ARISCAT Score: 31 ASA Class: 3 ANESTHESIA FINDINGS: Intubation History: No history of difficult intubation Significant Anesthesia Considerations: none Airway History: No history of difficult airway I - PHYSICAL EVALUATION AIRWAY Patient intubated: No. Tracheostomy tube not present Mallampati: II. TM distance: >3 FB. Neck ROM: full ROM without neurological symptoms. Mouth opening: adequate. Short neck: no. Thick neck: no Bowers present: no DENTAL Dental findings: teeth intact. Dentures, upper: partial. Dentures, lower: partial. II - ANESTHESIA PLAN ASA Score: 3 Anesthetic Plan: other Anesthetic plan additional comments: *PACC/TCI - anesthesia choice. Beta Simran Monitoring Plan Post Procedure Analgesic Plan Informed Consent Anesthetic risks, benefits, alternatives, personnel and consent discussed: yes. Patient / Responsible Alliance Party agrees to proceed: yes Patient / Surrogate agrees to blood products: Yes Prepared for Surgery: optimally prepared for surgery, pending [see comment]. Labs TE to surgeon's office and hematology/oncology to confirm if pt is optimized for surgery CONSULTS: Patient does not require consults for optimization at this time Planned Anesthetic: other anesthesia choice The Following Tests/Procedures Have Been Initiated: Orders Placed This Encounter lisinopril (ZESTRIL, PRINIVIL) 40 mg tablet Sig: Take 40 mg by mouth once daily. atorvastatin (LIPITOR) 20 mg tablet Sig: Take 20 mg by mouth daily at bedtime. potassium chloride ER (K-DUR, KLOR-CON) 20 mEq tablet Sig: Take 20 mEq by mouth twice daily. Instructions Given to Patient: Instructions located in the after visit summary. Patient given verbal and written preop instructions and voices comprehension and compliance. SIGNATURE: Karina Enamorado APRN.CNP PATIENT NAME: Ashley Alcantar DATE: May 14, 2022 TIME: 3:21 PM PAGER/CONTACT #: [facility] Instructions* Patient Instructions* Niki Armas RN - 05/09/2022 10:16 AM EST Images from the original note were not included. CONFERENCE RESERVATIONIST ONCOLOGY PHYSICIAN CONTACT INFORMATION Surgery Scheduling Office Surgeons: Dr. Sejal Merino Dr. Grey Silva Dr. Ary Gu Packaging Mechanic Oncology Nurse Practitioners: Samra Cee, MULTICUT LINE OPERATOR.STORE LOSS PREVENTION MANAGER Luna Barbosa, MULTICUT LINE OPERATOR.STORE LOSS PREVENTION MANAGER Vida Piña, MULTICUT LINE OPERATOR.STORE LOSS PREVENTION MANAGER Kendal Neely, MULTICUT LINE OPERATOR.STORE LOSS PREVENTION MANAGER Jannie Albert, MULTICUT LINE OPERATOR.STORE LOSS PREVENTION MANAGER Marisel Cook, MULTICUT LINE OPERATOR.STORE LOSS PREVENTION MANAGER After 4:30 pm or on holidays or weekends, call: or [phone]. Ask the operatorto page the university president oncologist avionics mechanic. PRE-OPERATIVE CHECKLIST: PATIENT INSTRUCTIONS PRIOR TO SURGERY Our guidelines have changed, so please read these instructions carefully. Your surgery may be cancelled if you do not follow these instructions. MY ARRIVAL TIME IS: I have been instructed not to have any solid food to eat after midnight prior to my surgery (this includes no gum, mints, smoking). I am allowed to drink small amounts (up to 12 oz) of clear liquids up until 2 hours prior to my arrival time. Clear liquids include water, fruit juices without pulp, carbonated beverages (i.e. damian natalie), electrolyte beverages (i.e. Gatorade), clear tea and black coffee, clear broth, popsicles and jello. (No milk). No alcohol the day before or day of surgery. I will bring this binder to all pre and post-operative appointments AND day of surgery. MEDICATION STOPPAGE: Unless my surgeon tells me differently, I will STOP THESE MEDICATIONS 7 DAYS PRIOR TO SURGERY: (Motrin/ibuprofen/Naproxen/Aleve/Advil), Aspirin, vitamin E, herbal medications, diet pills, and [id number] medications. Tylenol (acetaminophen) is okay. I will not wear jewelry, body piercing(s), makeup, nail divehi, hairpins, or contacts on the day ofsurgery. I am to leave valuables and money at home or with family members. If I am prescribed inhalers for breathing, I will use them and bring them to the hospital. Medication(s) to be taken on the morning of surgery with a few sips of water: If I am taking any of the following blood thinning medications - Aspirin, clopidogrel (Plavix), ticagrelor (Brilinta), prasugrel (Efficient), ticlodipine (Ticlid), warfarin (Coumadin), dibigatran (Pradaxa) or rivaroxaban (Xarelto) - I will discuss whether or not I should stop them before surgery with my surgeon. Discuss medication changes with your plastic die maker apprentice or primary care physician as well. If I stopped taking my blood-thinning medication, I will ask the surgeon when to resume taking it. If I am an outpatient, a responsible person will drive me home and it was suggested that someone stay with me for 24 hours. I understand that a business services representative or cabdriver is NOT a responsible caregiver. Patients with diabetes,I will not take my morning diabetes medication (pills) on the morning of surgery. If I am on insulin, someone has gone over those instructions with me for the morning of surgery. I understand if my surgery is delayed, I will notify the check in desk that I have diabetes. See the Diabetic GuidelinesBefore Surgery in the patient education section. If I have Obstructive Sleep Apnea and use a CPAP/BiPAP machine, I will bring my mask, tubing, and machine with me on the day of surgery. Pain management education material found in Your Surgical Guide was reviewed with me. To find out my arrival time for surgery, I must call my surgical nurse practitioner after 2pm the day beforesurgery. Pre-operative instructions given by: PREOP INSTRUCTIONS THE DAY OF SURGERY/CHECK IN Report to DESK J1-9 for surgery. A map is located in Your Surgical Guide Book. The online version of the surgical guide book can be found at: [email or web address] The address is [address] [place] [address]/[place] [address] INFECTION PREVENTION Please notify your doctor if you have any signs of an infection (i.e. fever, severe cough, nasal congestion, pain with urination, abnormal vaginal discharge, diarrhea, etc). Your surgeon will let you know if a bowel prep is needed before your surgery. If so, please see theattached instructions. Shower the night before surgery AND the morning of surgery with Hibiclens (provided by your surgeon). If you are allergic to Hibiclens or unable to obtain the Hibiclens, please wash with antibacterial soap. Wash your body from the neck down, focusing on your abdomen, belly button and external genitalia. Do not forget to scrub any skin folds and creases. No lotions, oils, creams, or powders after your shower. Underarm deodorant is okay. No shaving (abdominal or pubic hair) or douching the day before surgery. You may be asked to apply an antiseptic solution called Chlorhexidine Gluconate (CHG) which will beprovided to you on arrival to the preop area. Hand washing is extremely important in preventing infection (for both you as the patient and for the caregivers). HOSPITALIZATION Before you leave the hospital, you typically need to be able to eat/drink, urinate, and have your pain controlled with oral medication. Your surgeon or other members of your surgeon s team will discuss any other specific medical issues related to your discharge with you. Your surgeon may order intermittent compression sleeves. These are massaging leg pumps to help prevent blood clots after surgery. See Your Surgical Guide Book for more information. It is also very important that you walk as soon as possible and as frequently as possible after surgery. This will help decrease your risk of blood clots, exercise your lungs and speed up your recovery after surgery. If you are admitted to the hospital overnight, you will be given an incentive spirometer, which is a breathing machine that will help make sure that you are taking deep breaths and expanding your lungs while in the hospital. See Your Surgical Guide Book for more information. [facility] [employer] At the [facility], we have a multidisciplinary team of caregivers that includes fellows, residents, nurse practitioners, physician assistants, clinical nurse specialists, nurses, medical assistants, patient care nursing assistants, social workers, casework manager and many others. We all have different roles and responsibilities but we are all here to help. POSTOP: LAPAROSCOPIC SURGERY WHAT TO EXPECT AT HOME Recovery from surgery is generally 2-6 weeks, but sometimes longer for more strenuous activity. It is normal to be very tired during this time. It is normal to have some drainage or a small amount of vaginal bleeding after surgery which may last up to 6 weeks. You will most likely experience gas pain, abdominal swelling, or shoulder pain for 24-72 hours after surgery. This is from the carbon dioxide gas put into your abdomen to better visualize your organs. A warm shower, heating pad, and/or walking may help. You will have 1-5 small incisions on your abdomen. There will be dissolvable stitches under your skin that do not need to be removed. You will also have surgical glue or steri-strips (paper tape) on the incisions. These may be removed when they start to fall off on their own, or in 7-10 days. ACTIVITY No heavy lifting/pushing/pulling for 4-6 weeks. Do not lift anything more than 10-15 lbs (such as laundry, groceries, children, pets), vacuum, push heavy doors or grocery carts, etc. You may climb stairs as tolerated. Do not put anything in the vagina for 6 weeks after surgery unless otherwise instructed by your doctor (including tampons, douching, sexual intercourse, etc). No driving for about 2-3 weeks after surgery, while you are taking narcotic pain medication, or until you feel that you are ready. Avoid sitting or lying in bed for more than 2 hours at a time while you are awake to reduce your risk of blood clots. Return to work when directed by your surgeon. Please contact your surgeon s office if any FMLA or other paperwork is needed. WOUND CARE You will have 1-5 small incisions on your abdomen. If you have a dressing (big, white, square band-aid), please remove it 24 hour after your surgery. You may have surgical glue or steri-strips on theincisions and these may be removed once they start to fall off. Shower daily after surgery. Wash your incision with antibacterial soap (such as Dial). Pat your incision dry with a clean towel. No tub baths until wound is completely healed. Wash your hands frequently, especially before touching your incision, changing any dressings, afterusing the restroom, and before eating. PAIN MANAGEMENT You will be given prescriptions for a variety of pain medications (opioid and non-opioid) before you leave the hospital. Surgery will cause pain and everyone has a different pain tolerance. It is safer to find the right combination and amount of medicine to manage your pain. We recommend that you take the non-opioid medication (acetaminophen and ibuprofen) on a regular schedule after surgery. You can take these medications on an alternating schedule so that you are taking one or the other every 3-4 hours. The maximum total daily dose of acetaminophen is 4,000mg and the maximum totaldaily dose of ibuprofen is 2,400mg. Take the opioid prescription ONLY when your pain is severe and never take more pills or more frequent doses than prescribed. Opioids (narcotics) can cause serious side effects. The risks increase the longer they are used. Taking opioids may cause: constipation, drowsiness, itching, nausea/vomiting. More serious side effects of opioids may include: addiction or dependence, life threatening overdose, or dizziness leading to falls/injury. Keep your pain medication locked in a safe place. Never share your pain medication with others. If you have any remaining opioid pills after you recover from surgery, please bring them to a medication disposal station (located in many of the [facility] pharmacies). Do not flush them down the toilet. Constipation is a common problem after surgery. You should take a stool softener (i.e. colace) twice a day, especially if you are taking opioids. If a stool softener alone is not helping to manage your constipation, you can also take Miralax and/or milk of magnesia as needed. WHEN TO CALL THE DOCTOR Call your doctor if you have any of the following symptoms: Fever (>100.4 F or 38.0 C) or chills. Incision problems such as redness, warmth, swelling, or foul smelling drainage. Severe nausea or persistent vomiting. Bright red vaginal bleeding (soaking >1 pad/hour) or foul smelling vaginal drainage. Severe pain not relieved with pain medication. Pain and swelling in your legs, especially if it is only on one side and not the other. Pain with urination, cloudy urine, or foul smelling urine. Or if you have any other problems or questions. CALL 911 or go to the ED if you have any shortness of breath, difficulty breathing, or chest pain. Advance Directives Every adult has the right to direct their own medical care. Having an advance directive on file helps to ensure that you receive the care you want if a medical condition or injury renders you unable to make decisions or communicate. Forms can be found on the [facility] Advance Directives site. You do not need a funeral workers to complete advance directive documents. [email or web address] Talking about end-of-life issues is difficult, but it truly is a gift to your loved ones. We suggest using The [employer]versation Project (Content Analyticsationproject.org) to help guide you through discussing and thinking about your wishes/preferences, goals and values and completing your advance directive. After you complete the documents, talk to those people who may be involved with your healthcare decision making, and give them a copy of your forms to make sure your wishes are followed. Please bringa copy of your advance directive documents to your next appointment, or email to [email or web address] as an attachment in either PDF, TIFF, or JPEG format. You can also mail to: [facility] Health Information Management, Ab7 Advance Directive Processing [address] [place], [place] [address] documented in this encounterC[facility] History of Present illness Narrative* Niki Armas RN - 05/09/2022 9:48 AM EST DATE OF SERVICE: 05/09/2022 PROBLEM: Ashley Alcantar presents for pre-op teaching. PRE-OP DIAGNOSIS: Other intra-abdominal and pelvic swelling, mass and lump Other abnormal tumor markers Preop examination SCHEDULED SURGERY AND DATE: 05/16/2022 laparoscopy, biopsies possible removal of ovaries and tubes PRIMARY SURGEON: Ary Borden MD NURSING PREOP ASSESSMENT: Fevers, chills, cough, or nasal congestion: No Vaginal itching, burning, discharge, or odor: No Pain with urination, frequency, urgency, cloudy or foul smelling urine: No If yes to any of the above then MD notified: Not Applicable ADVANCED CARE PLANNING: Does the patient have an advanced directive: No Does [facility] have a copy of the patient's advanced directive: No Was advanced directive given to the patient: Yes PATIENT LEARNING ASSESSMENT: Individual patient/family learning needs evaluated and addressed: Yes Cognitive ability: Alert and oriented Motivation to learn: Eager Interested Factors affecting learning: None Physical limitations affecting learning: None Patient learns best by: Verbal Instruction Multiple Methods Method of instruction: Individual instruction Verbal instruction Instructions provided to: Patient via telephone. Family support: Unable to assess - Family not present PRE- AND POST-OPERATIVE TEACHING Pre-operative teaching and supplemental material provided and reviewed with patient: Your Surgical Guide Book Map Written pre-op and post-op instructions Antibacterial soap: Instructed pt to use unscented, antibacterial soap (Like Dial). Pre-operative instructions provided and reviewed with patient/family: No eating, drinking, or smoking after midnight prior to surgery unless otherwise directed No alcohol the day before surgery Medications as prescribed by anesthesia, internal medicine, surgeon, or SUPERVISOR BOTTLE MACHINES Stop NSAIDs, Aspirin (ASA), vitamins, herbal supplements, herbal teas, and diet pills 7-10 days prior to surgery OK to take tylenol prn pain unless otherwise directed by physician Call surgery coordinators if any other questions about surgery date or pre-op appointments Bowel prep instructions: NPO after midnight except clear fluids (12 oz) up to 2 hours before arrival time Day of surgery instructions provided and reviewed with patient/family: Arrival time (call surgical coordinators on the office day prior to surgery for verification) No jewelry, body piercing, makeup, contacts, lotions, nail divehi on fingers, or anything in hair on arrival to surgery Wear low healed shoes and loose fitting clothing Leave all valuables at home or with a family member Directions to [facility] and [facility] [place], operated by [facility] Parking/parking validation on the day prior to surgery Admission/check in (Report to DESK J1-9 for surgery) Holding area Placement of IV Surgical positioning Family waiting area Surgical recovery room Post-operative instructions provided and reviewed with patient/family: SEE PATIENT INSTRUCTION SECTION FOR DETAILS. ACTIVITY - No heavy lifting (>5-10 lbs), no pushing/pulling, OK to climb stairs DRIVING - No driving for 3 weeks unless prior approval from MD, OK to ride in a car. DIET - Advance diet as tolerated and as ordered by MD, drink 8 glasses of water a day, eat a diet high in protein and fiber unless otherwise directed by MD. CATHETER - Will be inserted during surgery, you may go home with a catheter for 7-10 days and will have to come back to the office for a voiding trial, UTI symptoms reviewed and patient instructed estefania ALONZO of any of these symptoms. INCISION CARE - Keep incision clean and dry, tressa to be removed 7-10 days after surgery, steristrips do not need to be removed by MD BATHING - OK to shower after surgery unless otherwise directed by MD, no tub baths. PAIN MEDICATION - IV pain medication after surgery, IV PEDIATRICIAN MANAGING PARTNER if ordered by MD, discharged home with aprescription for PO pain medication, pain management after surgery, side effects of pain medication(including constipation, dizziness, drowsiness, and medication interactions). VAGINAL CARE - Pelvic rest x6 weeks unless otherwise directed by MD. DVT PROPHYLAXIS - Early ambulation, SCDs, injectable anticoagulants (heparin, lovenox, etc) RESPIRATORY - Incentive spirometer, coughing/deep breathing exercises, ambulation. RETURN TO WORK - As directed by physician, please send any FMLA papers to physician's unit secretary. SYMPTOMS TO NOTIFY MD - Fever, chills, nausea, vomiting, increased or severe pain, heavy vaginal bleeding, foul smelling vaginal drainage, pain or swelling in extremities. URGENT SYMPTOMS - Call 911 or go to ER if any shortness of breath, difficulty breathing, or chest pain. HOW TO CONTACT PHYSICIAN - Physician's office phone number given to patient, if after hours patientinstructed to call recessing machine operator and ask for avionics mechanic university president onc resident. ESVIN program offered to patient: No, Additional teaching as indicated by patient/family learning needs. PATIENT LEARNING EVALUATION & FOLLOW UP PLAN: Patient and/or family express understanding of upcoming surgery, pre-operative preparation, the operative process, and post-operative instructions. Follow up plan: Complete - No need for follow-up Patient has a post-op appointment scheduled: Yes, post-op televisit scheduled with SUPERVISOR BOTTLE MACHINES. Messaged surgical nurse practitioner to schedule post-op visit with MD as well. Referral (recommentation): None Educator: Niki Armas RN [facility] [place] documented in this encounterCleveland Clinic [facility]02-02-[facility] Instructions* Patient Instructions* Samra Cee APRN.STORE LOSS PREVENTION MANAGER - 05/03/2022 4:28 PM EST Images from the original note were not included. Please visit the following website for the [facility] surgery guide. [email or web address] PATIENT SURGICAL CHECKLIST - NEXT STEPS Your surgeon's office will call you to arrange your surgery date and pre- admission testing appointments. You should receive a call within 2-5 business days from our scheduling team. (If you do not receive a call within 5 days - please call [phone]) Pre-admission testing appointments include: - Covid Testing (if indicated) - Preop exam either with [facility] (pre-anesthesia consultation clinic) or with the SUPERVISOR BOTTLE MACHINES from the surgical team - Preop nurse teaching appointment (can also be done over the phone) - Lab work - Any other testing that the provider orders for prior to surgery if needed You will receive a call from the doctor of dental surgery the business day prior to your surgery as to when and where to arrive on the day of your scheduled surgery CONFERENCE RESERVATIONIST ONCOLOGY PHYSICIAN CONTACT INFORMATION Surgery Scheduling Office Surgeons: Dr. Sejal Merino Dr. Grey Silva Dr. Ary Gu Packaging Mechanic Oncology Nurse Practitioners: Samra Cee, MULTICUT LINE OPERATOR.JOSE Barbosa MULTICUT LINE OPERATOR.JOSE Piña MULTICUT LINE OPERATOR.JOSE Neely MULTICUT LINE OPERATOR.JOSE Albert MULTICUT LINE OPERATOR.JOSE Cook APRN.JOSE After 4:30 pm or on holidays or weekends, call: or . Ask the operatorto page the university president oncologist avionics mechanic. PRE-OPERATIVE CHECKLIST: PATIENT INSTRUCTIONS PRIOR TO SURGERY Our guidelines have changed, so please read these instructions carefully. Your surgery may be cancelled if you do not follow these instructions. MY ARRIVAL TIME IS: I have been instructed not to have any solid food to eat after midnight prior to my surgery (this includes no gum, mints, smoking). I am allowed to drink small amounts (up to 12 oz) of clear liquids up until 2 hours prior to my arrival time. Clear liquids include water, fruit juices without pulp, carbonated beverages (i.e. damian natalie), electrolyte beverages (i.e. Gatorade), clear tea and black coffee, clear broth, popsicles and jello. (No milk). No alcohol the day before or day of surgery. I will bring this binder to all pre and post-operative appointments AND day of surgery. MEDICATION STOPPAGE: Unless my surgeon tells me differently, I will STOP THESE MEDICATIONS 7 DAYS PRIOR TO SURGERY: (Motrin/ibuprofen/Naproxen/Aleve/Advil), Aspirin, vitamin E, herbal medications, diet pills, and blat-psr-bnutvfv medications. Tylenol (acetaminophen) is okay. I will not wear jewelry, body piercing(s), makeup, nail divehi, hairpins, or contacts on the day ofsurgery. I am to leave valuables and money at home or with family members. If I am prescribed inhalers for breathing, I will use them and bring them to the hospital. Medication(s) to be taken on the morning of surgery with a few sips of water: If I am taking any of the following blood thinning medications - Aspirin, clopidogrel (Plavix), ticagrelor (Brilinta), prasugrel (Efficient), ticlodipine (Ticlid), warfarin (Coumadin), dibigatran (Pradaxa) or rivaroxaban (Xarelto) - I will discuss whether or not I should stop them before surgery with my surgeon. Discuss medication changes with your plastic die maker apprentice or primary care physician as well. If I stopped taking my blood-thinning medication, I will ask the surgeon when to resume taking it. If I am an outpatient, a responsible person will drive me home and it was suggested that someone stay with me for 24 hours. I understand that a business services representative or cabdriver is NOT a responsible caregiver. Patients with diabetes,I will not take my morning diabetes medication (pills) on the morning of surgery. If I am on insulin, someone has gone over those instructions with me for the morning of surgery. I understand if my surgery is delayed, I will notify the check in desk that I have diabetes. See the Diabetic GuidelinesBefore Surgery in the patient education section. If I have Obstructive Sleep Apnea and use a CPAP/BiPAP machine, I will bring my mask, tubing, and machine with me on the day of surgery. Pain management education material found in Your Surgical Guide was reviewed with me. To find out my arrival time for surgery, I must call my surgical nurse practitioner after 2pm the day beforesurgery. Pre-operative instructions given by: PREOP INSTRUCTIONS THE DAY OF SURGERY/CHECK IN - Report to DESK - for surgery. A map is located in Your Surgical Guide Book. - The online version of the surgical guide book can be found at: [email or web address] - The address is [address] [place] [address] INFECTION PREVENTION - Please notify your doctor if you have any signs of an infection (i.e. fever, severe cough, nasal congestion, pain with urination, abnormal vaginal discharge, diarrhea, etc). - Your surgeon will let you know if a bowel prep is needed before your surgery. If so, please see the attached instructions. - Shower the night before surgery AND the morning of surgery with Hibiclens (provided by your surgeon). If you are allergic to Hibiclens or unable to obtain the Hibiclens, please wash with antibacterial soap. Wash your body from the neck down, focusing on your abdomen, belly button and external genitalia. Do not forget to scrub any skin folds and creases. - No lotions, oils, creams, or powders after your shower. Underarm deodorant is okay. - No shaving (abdominal or pubic hair) or douching the day before surgery. - You may be asked to apply an antiseptic solution called Chlorhexidine Gluconate (CHG) which will be provided to you on arrival to the preop area. - Hand washing is extremely important in preventing infection (for both you as the patient and for the caregivers). HOSPITALIZATION - Before you leave the hospital, you typically need to be able to eat/drink, urinate, and have yourpain controlled with oral medication. Your surgeon or other members of your surgeon s team will discuss any other specific medical issues related to your discharge with you. - Your surgeon may order intermittent compression sleeves. These are massaging leg pumps to help prevent blood clots after surgery. See Your Surgical Guide Book for more information. - It is also very important that you walk as soon as possible and as frequently as possible after surgery. This will help decrease your risk of blood clots, exercise your lungs and speed up your recovery after surgery. - If you are admitted to the hospital overnight, you will be given an incentive spirometer, which is a breathing machine that will help make sure that you are taking deep breaths and expanding your lungs while in the hospital. See Your Surgical Guide Book for more information. KETTERING HEALTH TEAM - At the [facility], we have a multidisciplinary team of caregivers that includes fellows, residents, nurse practitioners, physician assistants, clinical nurse specialists, nurses, medical assistants, patient care nursing assistants, social workers, casework manager and many others. We all have different roles and responsibilities but we are all here to help. POSTOP: LAPAROSCOPIC SURGERY WHAT TO EXPECT AT HOME - Recovery from surgery is generally 2-6 weeks, but sometimes longer for more strenuous activity. It is normal to be very tired during this time. - It is normal to have some drainage or a small amount of vaginal bleeding after surgery which may last up to 6 weeks. - You will most likely experience gas pain, abdominal swelling, or shoulder pain for 24-72 hours after surgery. This is from the carbon dioxide gas put into your abdomen to better visualize your organs. A warm shower, heating pad, and/or walking may help. - You will have 1-5 small incisions on your abdomen. There will be dissolvable stitches under your skin that do not need to be removed. You will also have surgical glue or steri-strips (paper tape) on the incisions. These may be removed when they start to fall off on their own, or in 7-10 days. ACTIVITY - No heavy lifting/pushing/pulling for 4-6 weeks. Do not lift anything more than 10-15 lbs (such aslaundry, groceries, children, pets), vacuum, push heavy doors or grocery carts, etc. - You may climb stairs as tolerated. - Do not put anything in the vagina for 6 weeks after surgery unless otherwise instructed by your doctor (including tampons, douching, sexual intercourse, etc). - No driving for about 2-3 weeks after surgery, while you are taking narcotic pain medication, or until you feel that you are ready. - Avoid sitting or lying in bed for more than 2 hours at a time while you are awake to reduce your risk of blood clots. - Return to work when directed by your surgeon. Please contact your surgeon s office if any [facility] paperwork is needed. WOUND CARE - You will have 1-5 small incisions on your abdomen. If you have a dressing (big, white, square band-aid), please remove it 24 hour after your surgery. You may have surgical glue or steri-strips on the incisions and these may be removed once they start to fall off. - Shower daily after surgery. Wash your incision with antibacterial soap (such as Dial). Pat your incision dry with a clean towel. No tub baths until wound is completely healed. - Wash your hands frequently, especially before touching your incision, changing any dressings, after using the restroom, and before eating. PAIN MANAGEMENT - You will be given prescriptions for a variety of pain medications (opioid and non-opioid) before you leave the hospital. Surgery will cause pain and everyone has a different pain tolerance. - It is safer to find the right combination and amount of medicine to manage your pain. We recommend that you take the non-opioid medication (acetaminophen and ibuprofen) on a regular schedule after surgery. You can take these medications on an alternating schedule so that you are taking one or theother every 3-4 hours. The maximum total daily dose of acetaminophen is 4,000mg and the maximum total daily dose of ibuprofen is 2,400mg. Take the opioid prescription ONLY when your pain is severe and never take more pills or more frequent doses than prescribed. - Opioids (narcotics) can cause serious side effects. The risks increase the longer they are used. Taking opioids may cause: constipation, drowsiness, itching, nausea/vomiting. More serious side effects of opioids may include: addiction or dependence, life threatening overdose, or dizziness leadingto falls/injury. - Keep your pain medication locked in a safe place. Never share your pain medication with others. - If you have any remaining opioid pills after you recover from surgery, please bring them to a medication disposal station (located in many of the [facility] pharmacies). Do not flush them down the toilet. - Constipation is a common problem after surgery. You should take a stool softener (i.e. colace) twice a day, especially if you are taking opioids. If a stool softener alone is not helping to manage your constipation, you can also take Miralax and/or milk of magnesia as needed. WHEN TO CALL THE DOCTOR Call your doctor if you have any of the following symptoms: - Fever (>100.4 F or 38.0 C) or chills. - Incision problems such as redness, warmth, swelling, or foul smelling drainage. - Severe nausea or persistent vomiting. - Bright red vaginal bleeding (soaking >1 pad/hour) or foul smelling vaginal drainage. - Severe pain not relieved with pain medication. - Pain and swelling in your legs, especially if it is only on one side and not the other. - Pain with urination, cloudy urine, or foul smelling urine. - Or if you have any other problems or questions. - CALL 911 or go to the ED if you have any shortness of breath, difficulty breathing, or chest pain. documented in this encounterCleveland Clinic [facility]02-[facility]-2023 History of Present illness Narrative* Ary Borden MD - 05/03/2022 12:42 PM EST TELEVISIT PROGRESS NOTE This is a telephone encounter initiated for an established patient, parent or guardian not originating from a related Evaluation & Management service provided within the previous 7 days nor leading to an Evaluation & Management service or procedure within the next 24 hours or soonest available appointment. Gynecologic Oncology [facility] Follow up Re: Ashley Alcantar [facility]#: [id number] Date of service: 05/03/2022 Dr. Brittani Alcantar presents today with her daughter for a second opinion regarding pelvic mass, elevated CA 125, and ascites. Briefly, she is an 81 year old female who has a past medical history of Anemia, Aortic stenosis, CLL (chronic lymphocytic leukemia) (HCC), and Essential hypertension. Patientwas seen by Dr. Brittani Antonio on 04/18/2022. HPI taken from Dr. Antonio's 04/18/2022 note: Patient noted lower abdominal pain in bilateral lower quadrants in January 2022 which continued and worsened into March leading to evaluation with her PCP and general surgeon which led to CT reviewed below. She was also told she had bilateral inguinal hernias. Taking tylenol extra strength 1-2times daily for her abdominal pain. She reports occasional nausea and loss of appetite but nothing sustained. Denies bloating or increasing abdominal girth. Denies changes in bowel or bladder habits, no constipation or diarrhea. IMAGING- Pelvic US 04/05/2022: FINDINGS: UTERUS: Anteverted. The uterus measures 5.9 x 4.7 x 2.7 cm. There is a large pedunculated fibroid on the left measuring 6.1 x 8.4 x 6.4 cm The endometrial stripe measures 3 mm in AP diameter which is within normal limits. The normal ovaries are not visualized due to bowel gas producing artifact FREE FLUID: Moderate IMPRESSION: Large pedunculated fibroid in the left adnexa with moderate ascites. No definitive evidence for ovarian mass however the ovaries are not visualized due to bowel gas producing artifact CT w/ IV contrast, chest/abdomen/pelvis 11/03/2021: From Results of report- ABDOMEN: The liver, gallbladder, spleen, and pancreas appear normal. The adrenal glands appear normal. Multiple bilateral renal cyst (largest measures 2.7 cm on the right and 4.2 cm and left Both kidneys are normal in size, shape, and density. There is no abnormal mass or hydronephrosis. PELVIS: There is no significant retroperitoneal adenopathy. No free fluid or free air within the abdomen or pelvis. Small bowel containing RIGHT inguinal hernia. Mild prominence of pelvic vasculature and gonadal veins. The bowel appears unremarkable on this non-GI contrast examination. The urinary bladder appears normal. There are scattered phleboliths within the deep pelvis. BONES: Diffuse osteopenia ASSESSMENT/PLAN per Dr. Antonio 04/18/2022- Ashley Alcantar is a 81 year old with a recently diagnosed pelvic mass upon work up for abdominal pain. 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 -We reviewed the pelvic mass imaging in detail and reviewed radiologic findings arguing for and against malignancy. Specifically, we discussed that on my comparison of most recent CT abdomen/pelvis 04/04/[address] chest/abdomen/pelvis from 11/03/2021 there is interval development of an 8cm non enhancing, heterogenous appearing, mass that appears anterior to the uterus and may represent an ovarian cystic mass and less likely a fibroid given is recent development despite ultrasound appearance consisted with solid components of the mass -We discussed that complex pelvic masses can be malignant in 5-7% of all cases but that given the appearance of her mass, my recommendation would be to proceed with removal for definitive pathologic evaluation. We discussed that not removing the mass could lead to spread of a cancer, increase in size of mass leading to worsening or new symptoms. -Role for surgical removal vs surveillance and risks and benefits of each was discussed. - Once removed, we discussed the 3 likely outcomes of frozen section and final pathology would be benign, borderline, and carcinoma. We reviewed that borderline tumors are not malignant, but require additional peritoneal and omental biopsies for staging to determine spread. We briefly discussed their risk for recurrence, mostly as borderline tumors in contralateral ovary (if not removed). We alsodiscussed staging lymphadenectomy, omentectomy, possible open surgery in the event of a carcinoma. # Preoperative Discussion: - We made a shared decision to proceed with exam under anesthesia, diagnostic laparoscopy, removal of pelvic mass, total laparoscopic hysterectomy and bilateral salpingoophorectomy, possible omentectomy and lymphadenectomy, possible blood transfusion and any other indicated procedure. With intraoper ative frozen section to guide need for omentectomy or lymphadenectomy. -We discussed the general recovery time frame and symptoms and the risks of the surgery, including but not limited to: bleeding requiring a transfusion, infection, VTE, injury to adjacent structures,pain, and poor healing/cosmesis. [ ] f/u T&S, tumor markers, CBC, RFP [ ] cardiac clearance from her Griddle Attendant, Ruddy Puri 04/05/2022 CA 125 290 04/18/2022 Tumor markers CEA 1.6 CA 125 474 CA 19-9 4.5 04/19/2022 Consult: 81yo female presents today with her daughter for a second opinion regarding pedunculated fibroid, elevated CA 125, and ascites. - Reports mild abdominal distention. - Daughter reports her mother underwent TF MALCOLM with 25 mm Portico NG on 12/14/2021. 02/23/2022 LVEF65%. - 04/05/2022 elevated CA 125 at 290 - 04/18/2022 tumor markers CEA at 1.6; CA 125 at 474; CA 19-9 at 4.5 - Reviewed evidence of ascites on 04/04/2022 CT scan which is new compared to her 11/03/2021 scan. A low-density mass anterior to the uterus measuring 7.2 x 7.9 x 6.3 cm which has increased in size when compared to previous imaging. Discussed a plan for ultrasound guided paracentesis performed in office today as long as there is a safe window to draw off the fluid. Otherwise we will schedule her for a CT guided paracentesis. Plan to send the fluid off for cytologic and protein staining studies. Patient agreed to proceed and consent was obtained. Patient tolerated the procedure well. Not much fluid drawn from today's paracentesis. Plan to send the collected fluid off for cytology and put in an order for CT guided paracentesis in case the submitted fluid is not satisfactory for evaluation. - Discussed a plan to initiate neoadjuvant systemic chemotherapy if her paracentesis studies come back showing evidence of malignant cells and gynecologic primary. The patient can pursue chemotherapyin Chris. If she has favorable response to chemotherapy then we will plan for interval debulking s urgery which will be less extensive as compared to primary cytoreductive surgery. Reviewed an article cited below discussing about 30-day mortality after primary cytoreductive surgery for advanced ovarian cancer in the elderly. A copy of the study was provided to her daughter. - Few tiny (< 3 mm) pulmonary nodules on 11/03/2021 CT scan. Plan to obtain CT chest now for re-assessment. 04/19/2022 US guided paracentesis (30 cc hazy colorless fluid) ABDOMINAL FLUID Negative for malignant cells 04/27/2022 CT guided paracentesis (1400 cc cloudy yellow fluid with material) ABDOMINAL FLUID Negative for malignant cells HEALTH MAINTENANCE: Last pap: >15 years ago Last HPV: >15 years ago Last mammogram: Maybe >10 years ago Last colonoscopy: Has never had -- no history of CRC screening, denies melena or bloody stools SUBJECTIVE/INTERVAL HISTORY: Patient is feeling well and denies shortness of breath, nausea, vomiting, constipation, problems urinating, unexplained weight loss, or vaginal bleeding. OBJECTIVE: Deferred for televisit IMPRESSION/PLAN: 05/03/2022 Today I spent 15 minutes for a televisit with the patient and her daughter, with more than 50% of the total [id number] time of the visit in counseling / coordination of care. Dx: pelvic mass, elevated CA 125, and ascites The first phone call was made to the patient's daughter. Discussed that the cytologic studies of paracenteses were negative for malignant cells but lab showed elevated WBC which was consistent with her history of CLL. No growth on culture. Daughter reports her mother is feeling better after the paracenteses but the ascites is starting to come back already. Discussed a plan for a laparoscopy and biopsies with possible removal of ovaries and tubes. Daughter reports her mother will be leaving to [place] this Saturday to celebrate her sister's birthday and plan to come back next Saturday. Reviewed a plan for surgery on 05/16. As daughter does not have power of consumer attorney, she can't sign the consent form for her mother's surgery. Another phone call was made to the patient. Reviewed the plan forsurgery and an informed consent was obtained over the phone today. Resident/Fellow's history reviewed. Patient interviewed and examined. Assessment and plan reviewed with fellow. I have personally examined the patient and repeated the joseph components of the exam/history. The assessment and plan were formulated and discussed with the resident/fellow. ATTESTATION: By signing my name below, Iris Morales, attest that this documentation has been prepared under the direction and in the presence of Ary Borden MD. Electronically signed: Jeremy Frances, May 03, 2022 2:57 PM Provider Attestation: Ary Morales MD, personally performed the services described in this documentation. All medicalrecord entries made by the michaelaibelbert were at my direction and in my presence. I have reviewed the chart and discharge instructions (if applicable) and agree that the record reflects my personal performance and is accurate and complete. Ary Borden MD May 04, 2022 11:18 AM I have confirmed and edited as necessary, the history of the present illness (HPI). Interval changes in the history of present illness are noted. I have confirmed and edited as necessary, the PFSH and ROS obtained by others. I saw the patient and personally participated in the joseph components and agree with the documented findings and plan. Sincerely, Ary Borden M.D. Reviewed and corrected by Ary Borden M.D. The previous note written by Dr. Borden dated 04/19/2022 was copied forward and the necessary changes were made. CC: Vern Bernardo MD (PCP) Thirty-day mortality after primary cytoreductive surgery for advanced ovarian cancer in the elderly. Nohemy MM, Zakia BA, Nicki RG, Nelia VEGA, Samy HJ. Obstet Gynecol. 2010;118(3):537-547. [facility] Das [facility] April 29, 2022 3:01pm Note Date/Time April 29, 2022 2 :44pm [facility] Medical Records Department [address] [place] [id number] Progress Note - Hospitalist 04/29/22 1440 MR#: [id number] Acct: [id number] Name: ASHLEY ALCANTAR Rep #:[id number] : 1940 81 From: Haim Das DO PCP: Dr. Vern Bernardo MD Status:ADM IN [place]: [facility] [place]692-4 Subjective Subjective Patient was seen and examined today, she does not complain of any fevers or chills, she is complaining of some slight nausea today. I went over with her the possibility of having infectious diseases see the patient tomorrow to see ifshe needs continued antibiotics, I talked with Dr. Rdz by phone and I think it is best that he evaluate her for continued antibiotic usage. I will attempt to call tomorrow to see if I can get culture results from the patient's peritoneal fluid. Objective Data Objective Data Vital Signs: Vital Signs Temp Pulse Resp BP Pulse Ox O2 Del Method 98.3 F 71 18 97/43 L 96 Room Air 04/29/22 10:00 04/29/22 10:00 04/29/22 10:00 04/29/22 10:00 04/29/22 10:00 04/29/22 10:00 Oxygen Delivery Method Room Air Weight: 52.1 kg Body Mass Index (BMI) 24.0 Intake & Output: Intake and Output for Last 24 Hours 04/27/22 04/28/22 04/29/22 23:59 23:59 23:59 Intake Total 630 / 630 450 / 450 Balance 630 / 630 450 / 450 Lab / Micro Data Result Diagrams: 04/29/22 04:30 04/28/22 11:05 Labs: Laboratory Results - last 24 hr 04/29/22 04:30: WBC 50.3 H*, RBC 3.20 L, Hgb 8.8 L, Hct 28.9 L, MCV 90.3, MCH 27.5, MCHC 30.4 L, RDW Std Deviation 45.4 H, RDW Coeff of Zack 13.8, Plt Count 529 H, MPV 9.1, Immature Gran % (Auto) 0.600, Neut % (Auto) 18.3 L, Lymph % (Auto) 78.3 H, [place] % (Auto) 1.9, Eos % (Auto) 0.8, Baso % (Auto) 0.1, Absolute Neuts (auto) 9.2 H, Absolute Lymphs (auto) 39.33 H, Nucleated RBC % 0, Differential Comment SCANNED, Diff Path Review May foll, Smudge Cells 2+ Physical Exam Narrative alert, oriented x3, no apparent distress, average body habitus and healthy appearing Constitutional Narrative: Patient appears her stated age General Appearance: cooperative, well kempt and well developed Orientation / Consciousness: awake, oriented to person, oriented to place and oriented to time HEENT normocephalic, head/scalp atraumatic, hearing grossly normal bilaterally and moist oral mucous membranes Eyes PERRL, EOMs intact bilaterally and conjunctivae normal Neck supple, no JVD, thyroid normal and no carotid bruits General: trachea midline Resp normal respiratory effort, no retractions, no use of accessory muscles and clearto auscultation bilaterally Auscultation: Negative for rales, rhonchi or wheezes Cardio regular rate, regular rhythm, S1 normal heart sound, S2 normal heart sound, no murmurs, no rub and no gallops GI normal to inspection, nondistended, normoactive bowel sounds, soft to palpation,non-tender and non-distended GI Narrative: No rebound abdominal tenderness was noted Extremity no clubbing, cyanosis or edema Skin no rashes or lesions noted General Skin Exam: no breakdown Neuro oriented x3, CN's II-XII intact bilaterally, moves all extremities, no focal motor deficits and no sensory deficits noted Sensorium / Orientation: awake, alert, oriented to person, oriented to place andoriented to time Speech: speech normal Psych affect normal Assessment & Plan Assessment/Plan (1) Peritonitis: PLAN: Plan 1. Spontaneous bacterial peritonitis-patient will remain on IV Zosyn for now, Iwill attempt to obtain culture [facility] on [facility] I will have infectious diseases see the patient tomorrow. #2 chronic lymphocytic leukemia-patient is not under treatment for this, complicates care, medical course, recovery, and prognosis #3 pelvic mass-etiology unclear at this point, patient is undergoing a further work-up as an outpatient #4 essential hypertension-nursing found out today the patient does not take daily lisinopril, her blood pressure has been low at times during her hospitalization here, I have elected to stop her lisinopril #5 hyperlipidemia-patient is on atorvastatin Total clinical time spent by myself addressing the patient's medical issues, reviewing the data, and discussing her care with her caregivers: 35 minutes Charges/Coding Visit Charges Inpatient E&M: 85842 Subs Hosp L2 04/29/22 1501 <Electronically signed by Haim Das DO> Cosigner Signature (if applicable): CC: ~ Signed [facility] Work Phone: 1(153) 729-306001-28-2023 History and physical note Author Dr. Das [facility] April 28, 2022 3:26pm Note Date/Time April 28, 2022 3 :11pm [facility] Medical Records Department [address] [place] [address] H&P Exam - Hospitalist 04/28/22 1505 MR#: [id number] Acct: [id number] Name: ASHLEY ALCANTAR Rep #:[id number] : 1940 81 From: Haim Das DO PCP: Dr. Vern Bernardo MD Status:ADM IN Location: [place] AL557-9 HPI - General General Date of Admission: 04/28/22 Date of Service: 04/28/22 Chief Complaint: Abnormal outpatient lab HPI Narrative ASHLEY ALCANTAR, is a 81 F who presents to the emergency room at [facility] at the direction of her pressroom supervisor/oncology physician. Patient had aparacentesis performed yesterday at the [facility] under her doctors direction, it returned white blood cells in the paracentesis fluid and she was advised to go to the emergency room and be admitted for IV antibiotics for possible peritonitis. 2.3 L of fluid was removed yesterday, emergency room physician told me that her white blood cell count was 1531 in the fluid. Patient denies any fevers or chills recently, she states that approximately 2 weeks ago she did not feel well and at that time she did have some chills and felt feverish. Patient states earlier this month that she had a CAT scan performed due to abdominal distention, it showed an abnormality in the pelvic area with fluid accumulation, there was discussion between the surgeon who ordered the CAT scan and the patient's primary care physician about who should follow-up on this fluid, patient became impatient and was referred to an WASHERETTE MACHINE OPERATOR[facility], she went for a second opinion to another gynecological oncologist and he ordered a paracentesis after first trying to remove some fluid in his office approximately a week ago without obtaining very much fluid. Again, 2.3 L were removed yesterday. There was noted to be 1531 white cells in the fluid with 55% neutrophils, there were 3000 red blood cells noted. Culture results were not back at this time. Patient has a history of CLL, she does not take any medications for this. Lab in the emergency room today showed a white blood cell count at 53.6, hemoglobin was 9, platelet count was 574,000. Chemistry profile was abnormal for creatinine of 1.12, BUN 24, and a potassium of 3.4. I talked by phone with Dr. Patricio who is the patient's oncologist in [facility], he states that her total white blood cell count on April 18 of this year was 49,000. Blood cultures were obtained in the emergency room, patient was given IV Zosyn will be admitted to [place] [address] for spontaneous bacterial peritonitis. Patient does not look toxic at this point. [facility] Medical History (Updated 04/28/22 @ 13:02 by Scarlett Ospina) Anxiety Aortic regurgitation Aortic stenosis CKD (chronic kidney disease) Contact with and (suspected) exposure to other viral communicable diseases Diarrhea History of right and left heart catheterization (LHC) (~09/29/21) Incontinence Limb weakness Mixed hyperlipidemia Nonrheumatic aortic (valve) stenosis with insufficiency Shoulder pain Urinary tract infection with hematuria Home Medications aspirin 81 mg tablet,delayed release 81 mg PO DAILY #1 TAB 09/14/21 [Rx Last Taken 04/26/22] ferrous sulfate 325 mg (65 mg iron) tablet 325 mg PO QODAY 01/29/22 [History Last Taken 04/25/22] amoxicillin 500 mg capsule 500 mg PO TID sinus pain #21 caps 04/21/22 [Rx Last Taken 04/27/22] atorvastatin 20 mg tablet 20 mg PO QHS CHOLESTEROL 04/28/22 [History Last Taken Unknown] lisinopril 40 mg tablet 40 mg PO DAILY BP 04/28/22 [History Last Taken 04/23/22] Allergy/AdvReac Type Severity Reaction Status Date / Time cephalexin [From Keflex] Allergy Severe Other Verified 04/28/22 13:13 Family History Other Colon cancer Diabetes Myocardial infarction Surgical History History of bilateral cataract extraction S/P TAVR (transcatheter aortic valve replacement) (~12/14/21) Social History household members: other details: number of children: 4 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 occupational 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 Smoking Status: Former smoker alcohol intake: never substance use type: does not use caffeine: Yes Type: tea Number of servings: 1 ROS Constitutional Constitutional: Denies anorexia, change in weight, chills, fatigue, fever(s), malaise, night sweats or weakness Eyes Eyes: Denies blurry vision, change in vision, discharge from eye(s) or eye pain Cardiovascular Cardiovascular: Denies chest pain, claudication, dyspnea on exertion, edema, lightheadedness or palpitations Respiratory/Chest Respiratory/Chest: Denies cough, dyspnea, hemoptysis, productive cough, shortness of breath at rest or shortness of breath with exertion Gastrointestinal Gastrointestinal: Denies abdominal pain, constipation, diarrhea, dyspepsia, hematemesis, hematochezia, melena, nausea or vomiting Genitourinary Genitourinary: Denies difficulty urinating, dysuria, hematuria, nocturia, urinary frequency, urinary hesitancy, urinary incontinence or urinary urgency Musculoskeletal Musculoskeletal: Denies back pain, joint pain, joint stiffness, joint swelling, myalgias or neck pain Neurologic Neurologic: Denies abnormal gait, abnormal speech, confusion, disequilibrium, dizziness, focal weakness, headache(s), loss of vision, numbness, other visual disturbances, paresthesias, syncope or tingling Psychiatric Psychiatric: Denies anxiety, cognitive impairment, depression, irritability, mood swings or suicidal ideation Endocrine Endocrinology: Denies change in body appearance, cold intolerance, excessive sweating, heat intolerance, polydipsia or polyuria Hematologic/Lymphatic Hematologic/Lymphatic: Denies none, anemia, easy bleeding, easy bruising or lymphadenopathy Allergic/Immunologic Allergic/Immunologic: Denies rhinitis, urticaria, eczemia or asthma Vital Signs Vital Signs Vital Signs: 04/28/22 10:25 04/28/22 12:35 04/28/22 13:31 Temperature 97.2 F L 97.8 F 97.9 F Temperature Source Temporal Oral Oral Pulse Rate 74 74 67 Respiratory Rate 16 16 18 Blood Pressure 104/60 104/78 111/48 L Blood Pressure Mean 74 86 69 Blood Pressure Source Monitor Blood Pressure Position Semi-Fowlers Blood Pressure Location Right Arm Pulse Ox 97 99 100 Oxygen Delivery Method Room Air Room Air Room Air Weight Weight: 52.1 kg Body Mass Index (BMI) 24.0 Physical Exam Const alert, oriented x3, no apparent distress, average body habitus and healthy appearing Constitutional Narrative: Patient appears her stated age General Appearance: cooperative, well kempt and well developed Orientation / Consciousness: awake, oriented to person, oriented to place and oriented to time HEENT normocephalic, head/scalp atraumatic, hearing grossly normal bilaterally and moist oral mucous membranes Eyes PERRL, EOMs intact bilaterally and conjunctivae normal Neck supple, no JVD, thyroid normal and no carotid bruits General: trachea midline Resp normal respiratory effort, no retractions, no use of accessory muscles and clearto auscultation bilaterally Auscultation: Negative for rales, rhonchi or wheezes Cardio regular rate, regular rhythm, S1 normal heart sound, S2 normal heart sound, no murmurs, no rub and no gallops GI normal to inspection, nondistended, normoactive bowel sounds, soft to palpation,non-tender and non-distended GI Narrative: No rebound abdominal tenderness was noted Extremity no clubbing, cyanosis or edema Skin no rashes or lesions noted General Skin Exam: no breakdown Neuro oriented x3, CN's II-XII intact bilaterally, moves all extremities, no focal motor deficits and no sensory deficits noted Sensorium / Orientation: awake, alert, oriented to person, oriented to place andoriented to time Speech: speech normal Psych affect normal Results Lab / Micro Data Result Diagrams: 04/28/22 11:05 04/28/22 11:05 Labs: Laboratory Results - last 24 hr 04/28/22 11:05: WBC 53.6 H*, RBC 3.21 L, Hgb 9.0 L, Hct 28.8 L, MCV 89.7, MCH 28.0, MCHC 31.3 L, RDW Std Deviation 45.3 H, RDW Coeff of Zack 13.9, Plt Count 574 H, MPV 9.4, Immature Gran % (Auto) 0.400, Neut % (Auto) 20.5 L, Lymph % (Auto) 77.1 H, [place] % (Auto) 1.5, Eos % (Auto) 0.4, Baso % (Auto) 0.1, Absolute Neuts (auto) 11.0 H, Absolute Lymphs (auto) 41.32 H, Nucleated RBC % 0, Differential Comment SCANNED, Diff Path Review July04/28/22 11:05: PT 15.6 H, INR 1.3, APTT 48.6 H 04/28/22 11:05: Sodium 136, Potassium 3.4 L, Chloride 108 H, Carbon Dioxide 18.0L, Anion Gap 10, BUN 24 H, Creatinine 1.12 H, Estim Creat Clear Calc 32.50, Est GFR (MDRD) Af Amer 60, Est GFR (MDRD) Non-Af 49 L, BUN/Creatinine Ratio 21.4 H, Glucose 118 H, Calcium 8.1 L, Total Bilirubin 0.30, Direct Bilirubin 0.11, AST 18, ALT 9 L, Alkaline Phosphatase 71, Total Protein 5.5 L, Albumin 1.7 L, Globulin 3.8 Assessment & Plan Assessment/Plan (1) Peritonitis: PLAN: Plan 1. Spontaneous bacterial peritonitis-patient was admitted to [place] [address], IV Zosyn will be continued, CBC will be repeated tomorrow morning. #2 chronic lymphocytic leukemia-patient is not under treatment for this, complicates care, medical course, recovery, and prognosis #3 pelvic mass-etiology unclear at this point, patient is undergoing a further work-up as an outpatient #4 essential hypertension-patient will remain on lisinopril #5 hyperlipidemia-patient is on atorvastatin Total clinical time spent by myself addressing the patient's medical issues, reviewing the data, and discussing her care with her caregivers: 75 minutes Charges/Coding Visit Charges Inpatient E&M: 25032 Init Hosp L3 04/28/22 1526 <Electronically signed by Haim Das DO> Cosigner Signature (if applicable): CC: Dr. Vern Bernardo MD; Dr. Haim Das DO~ Signed [facility] Work Phone: 1(167) 401-980201-28-[address] Dueñas [facility] April 28, 2022 2:09pm Note Date/Time April 28, 2022 1 0:51am [facility] Medical Records Department [address] [place] [address] Emergency Department Summary 04/28/22 MR#: [id number] Acct: [id number] Name: ASHLEY ALCANTAR Rep #:[id number] : 1940 81 From: Monica Dueñas MD PCP: Dr. Vern Bernardo MD Status:ADM IN [facility] History of Present Illness Chief Complaint: Abd Pain Informant: patient Narrative Narrative: Patient presents stating that her doctor called her and advised she needs to be admitted for IV antibiotics. Patient was initially seen by her primary care physician in late March with lower abdominal pain. She was found to have an inguinal hernia and was evaluated by Dr. Morse on April 04. A CT scan was performed that revealed a pelvic mass, questionable fibroid and moderate free fluid. An ultrasound revealed a large fibroid with moderate ascites. Ovaries are not well visualized. Patient's CA125 is elevated. She has now been following with Dr. Borden, GynOnc at [facility]. About a week ago she had gomez small amount of fluid removed with paracentesis. This revealed no evidenceof malignant cells, but sufficient fluid quantity for further testing was not possible. Patient underwent ultrasound-guided paracentesis yesterday at [facility]. She states they removed 2.3 L of fluid from her abdomen. Shereceived a phone call this morning that the fluid is infected and she needs to present to the local hospital to be admitted for IV antibiotics. I was able to review the lab findings that are available in [facility]. Her abdominal fluid contained 1531 white blood cells and 3000 RBCs. Differential includes 55% neutrophils, 26% lymphocytes, 18% monocytes. Patient reports having intermittent fevers for the last several weeks. She believes her last fever was at least 2 days ago, but states she has been taking Tylenol regularly. She reports that her abdominal pain seems to be improved after the paracentesis yesterday. [facility] Medical History Aortic regurgitation Aortic stenosis CKD (chronic kidney disease) Contact with and (suspected) exposure to other viral communicable diseases Diarrhea History of right and left heart catheterization (LHC) (~09/29/21) Incontinence Limb weakness Mixed hyperlipidemia Nonrheumatic aortic (valve) stenosis with insufficiency Shoulder pain Urinary tract infection with hematuria Home Medications aspirin 81 mg tablet,delayed release 81 mg PO DAILY #1 TAB 09/14/21 [Rx Last Taken 04/26/22] ferrous sulfate 325 mg (65 mg iron) tablet 325 mg PO QODAY 01/29/22 [History Last Taken 04/25/22] amoxicillin 500 mg capsule 500 mg PO TID sinus pain #21 caps 04/21/22 [Rx Last Taken 04/27/22] atorvastatin 20 mg tablet 20 mg PO QHS CHOLESTEROL 04/28/22 [History Last Taken Unknown] lisinopril 40 mg tablet 40 mg PO DAILY BP 04/28/22 [History Last Taken 04/23/22] Allergy/AdvReac Type Severity Reaction Status Date / Time Keflex Allergy Severe Swollen Uncoded 04/28/22 10:24 lips Family History Other Colon cancer Diabetes Myocardial infarction Surgical History History of bilateral cataract extraction S/P TAVR (transcatheter aortic valve replacement) (~12/14/21) Social History household members: other details: number of children: 4 current occupational status: employed current occupation: [employer] Smoking Status: Former smoker alcohol intake: never substance use type: does not use caffeine: Yes Type: tea Number of servings: 1 ROS ROS ED Constitutional Constitutional ED: Reports fever(s); Denies chills Eyes Eyes: Denies change in vision or discharge from eye(s) ENT ENT ED: Denies discharge from eye(s), rhinorrhea or sore throat Cardiovascular Cardiovascular: Denies chest pain or palpitations Respiratory/Chest Respiratory/Chest: Denies cough or dyspnea Gastrointestinal Gastrointestinal: Reports abdominal pain; Denies diarrhea, nausea or vomiting Genitourinary Genitourinary ED: Denies difficulty urinating or dysuria Musculoskeletal Musculoskeletal: Denies back pain or extremity pain Integumentary Denies Abrasions or rash Neurologic Neurologic: Denies headache(s) or weakness Psychiatric Psychiatric: Denies anxiety or depression Allergic/Immunologic Allergic/Immunologic ED: Denies lip swelling or urticaria EXAM Physical Exam Const Vital Signs: 04/28/22 10:25 Temperature 97.2 F L Temperature Source Temporal Pulse Rate 74 Respiratory Rate 16 Blood Pressure 104/60 Blood Pressure Mean 74 Pulse Ox 97 Oxygen Delivery Method Room Air Positive well nourished and well developed General Appearance ED: well developed HEENT Reports normocephalic and head/scalp atraumatic Eyes PERRL and EOMs intact bilaterally Neck supple Chest Wall inspection of chest normal and palpation of chest normal Resp normal respiratory effort and clear to auscultation bilaterally Cardio regular rate and regular rhythm GI GI Narrative: Abdomen is soft and mildly distended. No focal tenderness. Dressing in place to left lower quadrant at her paracentesis site. Palpation: soft Back/Spine no CVA tenderness Extremity normal to inspection Neuro oriented x3 and no sensory deficits noted Sensorium / Orientation: alert Motor Exam: strength 5/5 throughout Psych mental status grossly normal Skin no rashes or lesions noted MDM MDM MDM Narrative Medical decision making narrative: Lab work obtained along with blood cultures. Patient given a dose of IV Zosyn. Lab work from outside hospital was reviewed. Lab Data Attestation: I reviewed the patient's lab results. Labs: Laboratory Results - last 24 hr 04/28/22 04/28/22 04/28/22 11:05 11:05 11:05 WBC 53.6 H* RBC 3.21 L Hgb 9.0 L Hct 28.8 L MCV 89.7 MCH 28.0 MCHC 31.3 L RDW Std Deviation 45.3 H RDW Coeff of Zack 13.9 Plt Count 574 H MPV 9.4 Immature Gran % (Auto) 0.400 Neut % (Auto) 20.5 L Lymph % (Auto) 77.1 H [place] % (Auto) 1.5 Eos % (Auto) 0.4 Baso % (Auto) 0.1 Absolute Neuts (auto) 11.0 H Absolute Lymphs (auto) 41.32 H Nucleated RBC % 0 PT 15.6 H INR 1.3 APTT 48.6 H Sodium 136 Potassium 3.4 L Chloride 108 H Carbon Dioxide 18.0 L Anion Gap 10 BUN 24 H Creatinine 1.12 H Estim Creat Clear Calc 32.50 Est GFR (MDRD) Af Amer 60 Est GFR (MDRD) Non-Af 49 L BUN/Creatinine Ratio 21.4 H Glucose 118 H Calcium 8.1 L Total Bilirubin 0.30 Direct Bilirubin 0.11 AST 18 ALT 9 L Alkaline Phosphatase 71 Total Protein 5.5 L Albumin 1.7 L Globulin 3.8 Treatment and Re-Evaluation Narrative: White blood cell count today is 53.6 up from 31,000 earlier this month. She does have a history of CLL with chronically elevated white count. She has 20% neutrophils and 77% lymphocytes. Coags are largely unremarkable. Chemistry studies reveal slightly low potassium at 3.4. Bicarb slightly low at 18. BUN is 24 and creatinine is 1.12. This does appear to be consistent with her baseline. LFTs are unremarkable. Blood cultures are pending. I have given the patient a dose of Zosyn. I will speak with hospitalist regarding admission for further antibiotic therapy while awaiting culture results from her paracentesis fluid. Discharge Plan Triage Chief Complaint: Abd Pain ED Provider: Monica Dueñas Dx/Rx/DC Orders Clinical Impression: Peritonitis Prescriptions: No Action aspirin 81 mg tablet,delayed release (DR/EC) 81 mg PO DAILY Qty: 1 0RF ferrous sulfate 325 mg (65 mg iron) tablet 325 mg PO QODAY lisinopril 40 mg tablet 40 mg PO DAILY Label Comments: TAKE 1 TABLET BY MOUTH ONCE DAILY atorvastatin 20 mg tablet 20 mg PO QHS amoxicillin 500 mg capsule 500 mg PO TID Qty: 21 0RF Primary Care Provider: Vern Bernardo Referrals: Vern Bernardo MD [Primary Care Provider] - Disposition Disposition: Acute Care Hospital [facility] What to do if you have Problems For any increased pain, shortness of breath, bleeding, nausea or vomiting, chestpain, or any unexpected problems, contact your Primary Care Provider. Call [facility] ([phone]) or report to the closest Emergency Room. Call 911 if necessary. 04/28/22 1409 <Electronically signed by Monica Dueñas MD> Cosigner Signature (if applicable): CC: Dr. Vern Bernardo MD ~ Signed [facility] Work Phone: 1(622) 651-913401-28-2023 Miscellaneous Notes* Telephone Encounter - Ave Pino APRN.CNP - 04/28/2022 7:50 AM EST Pt underwent initial diagnostic and therapeutic paracentesis at [facility] on 04/27. Cell count notable forTNC 1531 w/ 55% neutrophils, unclear if she has portal HTN by chart review and SAAG not able to be calculated. Pt is currently undergoing work up with Packaging Mechanic for a mass in her abd and new onset ascites,had reported sharp abd pain to the upper abd yesterday at time of procedure. Called pt, no answer, LMOM. Called pt's dtr, explained c/f for possible SBP and need for IV abx. Giovanna agreeable, would prefer to take pt to [facility]. All questions answered. Plan: - Dtr to take pt to [place] ER - Recommend IV antibiotics with ceftriaxone if no contraindication for 5 days - Send albumin serum so SAAG can be calculated - Follow up cx - GI consult Ave Pino APRN.JOSE [facility] encounterC[facility] Miscellaneous Notes* Sedation Documentation - Khadijah Perkins RN - 04/27/2022 10:25 AM EST 1023 bottle 1 1026 bottle 2 1035 needle out THE FOLLOWING WAS EVALUATED Motivation To Learn: Eager Family/Significant Other Support: Moderate - Family present but overwhelmed Cognitive Ability: Alert and oriented Patient Learns Best By: Verbal Instruction The Following Influencing Factors Were Barriers To This Education Session: None The Following Physical Limitations Were Barriers To This Education Session: None Instruction Provided To: Patient and family member Learning Topic: Procedure/Surgery: PARACENTESIS Patient Evaluation: Verbalizes understanding Follow Up Plan: Follow up as needed 2.3 liters of ascites fluid was removed via paracentesis. Khadijah Perkins RN documented in this encounterC[facility]01-[facility] Miscellaneous Notes* Telephone Encounter - Alexandra Chavez RN - 04/23/2022 9:11 AM EST Returned daughter Giovanna Wood's call regarding having difficulty scheduling patient's CT guided paracentesis . Informed Giovanna that I have scheduled the paracentesis here at [facility] in the [facility] on April 25 at 10 am. Explained to daughter that all the instructions are in My chart. Giovanna voices understanding . Alexandra Chavez RN Gyn/Onc Chief Of Service documented in this encounterC[facility] Miscellaneous Notes* Telephone Encounter - Alexandra Chavez RN - 04/20/2022 2:26 PM EST Returned call to daughter to address questions about CT imaging. Left message for daughter Giovanna to call office back with questions. [phone] Alexandra Chavez returned goods inspector/Onc Chief Of Service documented in this encounterC[facility]01[facility] Miscellaneous Notes* Telephone Encounter - Vida Johnston - 04/19/2022 1:09 PM EST Spoke to Daughter and she stated that they got a second opinion with [facility] Dr. Borden and said that he wanted to do chemo before surgery and they agree with him. Asked for surgery and any associated appts. Vida Georges 04/19/22 documented in this encounterC[facility]01[facility] History of Present illness Narrative* Ary Borden MD - 04/19/2022 10:50 AM EST Gynecologic Oncology [facility] Consultation Re: Ashley Alcantar [facility]#: [id number] Date of service: 04/19/2022 Dr. Brittani Alcantar presents today with her daughter for a second opinion regarding pelvic mass, elevated CA 125, and ascites. Briefly, she is a 81 year old female who has a past medical history of Anemia, Aortic stenosis, CLL (chronic lymphocytic leukemia) (HCC), and Essential hypertension. Patient was seen by Dr. Brittani Antonio on 04/18/2022. HPI taken from Dr. Antonio's 04/18/2022 note: Patient noted lower abdominal pain in bilateral lower quadrants in January 2022 which continued and worsened into March leading to evaluation with her PCP and general surgeon which led to CT reviewed below. She was also told she had bilateral inguinal hernias. Taking tylenol extra strength 1-2times daily for her abdominal pain. She reports occasional nausea and loss of appetite but nothing sustained. Denies bloating or increasing abdominal girth. Denies changes in bowel or bladder habits, no constipation or diarrhea. IMAGING- Pelvic US 04/05/2022: FINDINGS: UTERUS: Anteverted. The uterus measures 5.9 x 4.7 x 2.7 cm. There is a large pedunculated fibroid on the left measuring 6.1 x 8.4 x 6.4 cm The endometrial stripe measures 3 mm in AP diameter which is within normal limits. The normal ovaries are not visualized due to bowel gas producing artifact FREE FLUID: Moderate IMPRESSION: Large pedunculated fibroid in the left adnexa with moderate ascites. No definitive evidence for ovarian mass however the ovaries are not visualized due to bowel gas producing artifact CT w/ IV contrast, chest/abdomen/pelvis 11/03/2021: From Results of report- ABDOMEN: The liver, gallbladder, spleen, and pancreas appear normal. The adrenal glands appear normal. Multiple bilateral renal cyst (largest measures 2.7 cm on the right and 4.2 cm and left Both kidneys are normal in size, shape, and density. There is no abnormal mass or hydronephrosis. PELVIS: There is no significant retroperitoneal adenopathy. No free fluid or free air within the abdomen or pelvis. Small bowel containing RIGHT inguinal hernia. Mild prominence of pelvic vasculature and gonadal veins. The bowel appears unremarkable on this non-GI contrast examination. The urinary bladder appears normal. There are scattered phleboliths within the deep pelvis. BONES: Diffuse osteopenia ASSESSMENT/PLAN per Dr. Antonio 04/18/2022- Ashley Alcantar is a 81 year old with a recently diagnosed pelvic mass upon work up for abdominal pain. 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 -We reviewed the pelvic mass imaging in detail and reviewed radiologic findings arguing for and against malignancy. Specifically, we discussed that on my comparison of most recent CT abdomen/pelvis 04/04/[address] chest/abdomen/pelvis from 11/03/2021 there is interval development of an 8cm non enhancing, heterogenous appearing, mass that appears anterior to the uterus and may represent an ovarian cystic mass and less likely a fibroid given is recent development despite ultrasound appearance consisted with solid components of the mass -We discussed that complex pelvic masses can be malignant in 5-7% of all cases but that given the appearance of her mass, my recommendation would be to proceed with removal for definitive pathologic evaluation. We discussed that not removing the mass could lead to spread of a cancer, increase in size of mass leading to worsening or new symptoms. -Role for surgical removal vs surveillance and risks and benefits of each was discussed. - Once removed, we discussed the 3 likely outcomes of frozen section and final pathology would be benign, borderline, and carcinoma. We reviewed that borderline tumors are not malignant, but require additional peritoneal and omental biopsies for staging to determine spread. We briefly discussed their risk for recurrence, mostly as borderline tumors in contralateral ovary (if not removed). We alsodiscussed staging lymphadenectomy, omentectomy, possible open surgery in the event of a carcinoma. # Preoperative Discussion: - We made a shared decision to proceed with exam under anesthesia, diagnostic laparoscopy, removal of pelvic mass, total laparoscopic hysterectomy and bilateral salpingoophorectomy, possible omentectomy and lymphadenectomy, possible blood transfusion and any other indicated procedure. With intraoper ative frozen section to guide need for omentectomy or lymphadenectomy. -We discussed the general recovery time frame and symptoms and the risks of the surgery, including but not limited to: bleeding requiring a transfusion, infection, VTE, injury to adjacent structures,pain, and poor healing/cosmesis. [ ] f/u T&S, tumor markers, CBC, RFP [ ] cardiac clearance from her Griddle Attendant, Ruddy Puri 04/05/2022 CA 125 290 04/18/2022 Tumor markers CEA 1.6 CA 125 474 CA 19-9 4.5 ALLERGIES/MEDICATIONS: ALLERGIES Allergen Reactions Keflex [Cephalexin] Rash Mouth blisters, thrush Current Outpatient Medications Medication Sig Dispense Refill vit C/E/cuperic/zinc/lutein (EYE MULTIVIT-LUTEIN,C-E-CU-ZN, ORAL) Take by mouth. cyanocobalamin, vitamin B-12, (VITAMIN B-12 ORAL) Take by mouth. ferrous sulfate 325 mg (65 mg iron) tablet Take 1 tablet by mouth once daily. lisinopril (PRINIVIL) 20 mg tablet Take 1.5 tablets by mouth once daily. (Patient taking differently: Take 40 mg by mouth once daily.) 135 tablet 0 aspirin 81 mg chewable tablet Take 1 tablet by mouth once daily. 90 tablet 3 magnesium oxide 200 mg magnesium tab Take 200 mg by mouth once daily. ascorbic acid, vitamin C, 500 mg cap Take 500 mg by mouth once daily. Zinc Acetate, Oral, 25 mg (zinc) cap Take 25 mg by mouth once daily. Current Facility-Administered Medications Medication Dose Route Frequency Provider Last Rate Last Admin perflutren lipid microspheres 1.3 mL in NaCl (PF) 0.9% 10 mL injection (DEFINITY) INTRAVENOUS DIRECTED PRDelma Roth MD sodium chloride 0.9 % (flush) 10 mL (BD POSIFLUSH) 10 mL INTRAVENOUS DIRECTED PRDelma Roth MD perflutren lipid microspheres 1.3 mL in NaCl (PF) 0.9% 10 mL injection (DEFINITY) INTRAVENOUS DIRECTED PRDelma Roth MD sodium chloride 0.9 % (flush) 10 mL (BD POSIFLUSH) 10 mL INTRAVENOUS DIRECTED ARLENE Roth MD PAST MEDICAL HISTORY Diagnosis Date Anemia Aortic stenosis CLL (chronic lymphocytic leukemia) (HCC) Essential hypertension PAST SURGICAL HISTORY Procedure Laterality Date ANESTH, SECTION 11/19/1970 PERCUTANEOUS AORTIC VALVE REPLACEMENT 11/2021 REMV CATARACT EXTRACAP,INSERT LENS Right 06/20/2021 REMV CATARACT EXTRACAP,INSERT LENS Left 07/11/2021 TONSILLECTOMY & ADENOIDECTOMY <AGE 11 age 28 TOOTH EXTRACTION 11/01/2021 FAMILY HISTORY Problem Relation Age of Onset other (ALS) Mother other (CHF) Mother Emphysema Father Heart Sister Heart Attack Sister Tuberculosis Sister Tuberculosis Sister Colon Cancer Sister Diabetes Sister Diabetes Brother Diabetes Brother Diabetes Brother other (atrial fibrillation) Child Family history of breast, ovarian, uterine or colon cancer: Yes, sister colon cancer SOCIAL HISTORY Social History Tobacco Use Smoking status: Former Packs/day: 0.50 Years: 25.00 Pack years: 12.50 Types: Cigarettes Quit date: 06/03/2014 Years since quittin.8 Smokeless tobacco: Never Vaping Use Vaping Use: Never used Substance Use Topics Alcohol use: Never Drug use: Never She resides in [place]. OBSTETRICAL/GYNECOLOGIC HISTORY: OB History T5 L5 SAB0 IAB0 Ectopic0 Multiple0 Live Births5 LMP: No LMP recorded. Patient is postmenopausal. Hormonal contraceptives: No. HRT use: No. History of abnormal pap: Denies Last pap: >15 years ago Last HPV: >15 years ago Last mammogram: Maybe >10 years ago Last colonoscopy: Has never had -- no history of CRC screening, denies melena or bloody stools REVIEW OF SYSTEMS: Constitutional: No recent fever, chills, unexplained weight loss or fatigue. HEENT: No vision changes, headache, hearing changes or nasal drainage. Cardiovascular: No chest pain, SOB, dyspnea on exertion, palpitations or peripheral edema. Respiratory: No cough, wheezing, or shortness of breath. Gastrointestinal: +abdominal pain and abdominal distention, no nausea, vomiting, diarrhea or constipation. Genitourinary: No dysuria, gross hematuria or urinary incontinence Musculoskeletal: No muscle weakness or joint pain. Neurologic: No syncope, seizures, numbness or dizziness. Psychiatric: No depression, anxiety, crying or history of psychiatric disorder. Endocrine: No diabetes, thyroid disease, hot flashes or night sweats. Hematologic: No easy bruising, adenopathy or history of VTE. OBJECTIVE: BP 131/57 Pulse 87 Temp 36.9 C (98.4 F) Ht 148.6 cm (4' 10.5) Wt 53.1 kg (117 lb) SpO2 100% BMI 24.04 kg/m Female in no acute distress. Neck - Negative. Supraclavicular - Adenopathy absent. Cardiac - Regular rate and rhythm without murmur or gallop. Carotids 2+ without bruits. Respiratory - Clear to ausculation bilaterally. Abdominal - No CVA tenderness. The bowel sounds are positive. The abdomen is soft and nontender. Sleeve Tailor offered: Patient accepts, visit chaperoned by Samra Cee CNP; Alexandra Chavez RN INFORMED CONSENT Ashley Alcantar Medical Record: [id number] Procedure: US guided paracentesis The risks, benefits and anticipated outcomes of the procedure, the risks and benefits of the alternatives to the procedure and the roles and tasks of the personnel to be involved were discussed with the patient and the patient consents to the procedure and agrees to proceed. I verify that I personally obtained Ashley Alcantar's consent. Dept of GYNECOLOGY ONCOLOGY UNIVERSAL PROTOCOL / SAFETY CHECKLIST Procedure to be Performed: US guided paracentesis Sign In: A Moment of CARE was completed. Personnel directly involved with the procedure wore the appropriate PPE (Personal Protective Equipment). Patient/Surrogate Stated/Verified: PATIENT VERIFIED(optional for EMERGENT procedures): Patient name, Date of , Relevant allergies, and The intended procedure Time Out Communication: Intended patient and procedure match the source documents. Consent documented and matches the intended procedure. The patient underwent an ultrasound to identify pocket of fluid for paracentesis. Once this was identified the area was marked and the patient was prepped and draped. The area was anesthetized with 1% Xylocaine. A paracentesis was performed removing only a few mls of fluid. This was submitted for cytologic evaluation. Sign Out: IMPRESSION/PLAN: 04/19/2022 I spent 30 minutes in the visit, with more than 50% of the total [id number] time of the visit in counseling / coordination of care. 81yo female presents today with her daughter for a second opinion regarding pedunculated fibroid, elevated CA 125, and ascites. - Reports mild abdominal distention. - Daughter reports her mother underwent TF MALCOLM with 25 mm Portico NG on 12/14/2021. 02/23/2022 [id number]%. - 04/05/2022 elevated CA 125 at 290 - 04/18/2022 tumor markers CEA at 1.6; CA 125 at 474; CA 19-9 at 4.5 - Reviewed evidence of ascites on 04/04/2022 CT scan which is new compared to her 11/03/2021 scan. A low-density mass anterior to the uterus measuring 7.2 x 7.9 x 6.3 cm which has increased in size when compared to previous imaging. Discussed a plan for ultrasound guided paracentesis performed in office today as long as there is a safe window to draw off the fluid. Otherwise we will schedule her for a CT guided paracentesis. Plan to send the fluid off for cytologic and protein staining studies. Patient agreed to proceed and consent was obtained. Patient tolerated the procedure well. Not much fluid drawn from today's paracentesis. Plan to send the collected fluid off for cytology and put in an order for CT guided paracentesis in case the submitted fluid is not satisfactory for evaluation. - Discussed a plan to initiate neoadjuvant systemic chemotherapy if her paracentesis studies come back showing evidence of malignant cells and gynecologic primary. The patient can pursue chemotherapyin Chris. If she has favorable response to chemotherapy then we will plan for interval debulking s urgery which will be less extensive as compared to primary cytoreductive surgery. Reviewed an article cited below discussing about 30-day mortality after primary cytoreductive surgery for advanced ovarian cancer in the elderly. A copy of the study was provided to her daughter. - Few tiny (< 3 mm) pulmonary nodules on 11/03/2021 CT scan. Plan to obtain CT chest now for re-assessment. ATTESTATION: By signing my name below, IIris, attest that this documentation has been prepared under the direction and in the presence of Ary Borden MD. Electronically signed: Jeremy Frances, April 19, 2022 3:11 PM Provider Attestation: Ary Morales MD, personally performed the services described in this documentation. All medicalrecord entries made by the michaelaibe were at my direction and in my presence. I have reviewed the chart and discharge instructions (if applicable) and agree that the record reflects my personal performance and is accurate and complete. Ary Borden MD April 19, 2022 4:03 PM I have confirmed and edited as necessary, the history of the present illness (HPI). Interval changes in the history of present illness are noted. I have confirmed and edited as necessary, the PFSH and ROS obtained by others. I saw the patient and personally participated in the joseph components and agree with the documented findings and plan. Sincerely, Ary Borden M.D. Reviewed and corrected by Ary Borden M.D. CC: Vern Benrardo MD (PCP) Thirty-day mortality after primary cytoreductive surgery for advanced ovarian cancer in the elderly. Nohemy MM, Zaika BA, Nicki RG, Nelia VEGA, Pablo HJ. Obstet Gynecol. 2010;118(3):537-547. documented in this encounterCleveland Clinic [facility]01-18-[facility] NoteHNO ID: [id number] Author: Brittani Antonio MD Service: ? Author Type: Physician Type: Progress Notes Filed: 04/23/2022 5:44 PM Note Text: GYNECOLOGIC ONCOLOGY HISTORY AND PHYSICAL EXAMINATION SERVICE DATE: 04/18/22 SERVICE TIME: 3:30 PM PRIMARY CARE PHYSICIAN: Vern Bernardo MD CHIEF COMPLAINT/HISTORY OF PRESENT ILLNESS/ROS: CC: Pelvic mass Referring Provider: Emily Jacobs MD HPI: Patient noted lower abdominal pain in bilateral lower quadrants in January 2022 which continued and worsened into March leading toevaluation with her PCP and general surgeon which led to CT reviewed below. She was also told she had bilateral inguinal hernias. Taking tylenol extra strength 1-2 times daily for her abdominal pain. She reports occasional nausea and loss of appetite but nothing sustained. Denies bloating or increasing abdominal girth. Denies changes in bowel or bladder habits, no constipation or diarrhea. The history is provided by the patient and a caregiver (patient's daughter). ROS: Review of Systems Constitutional: Negative for activity change, diaphoresis, fever and unexpected weight change. HENT: Negative for ear pain, hearing loss and mouth sores. Eyes: Negative for pain and visual disturbance. Respiratory: Negative for cough, chest tightness and shortness of breath. Cardiovascular: Negative for chest pain and palpitations. Gastrointestinal: Positive for abdominal pain. Negative for constipation, diarrhea, nausea and vomiting. Endocrine: Negative for cold intolerance and heat intolerance. Genitourinary: Positive for pelvic pain. Negative for dysuria, frequency, hematuria, urgency, vaginal bleeding, vaginal discharge and vaginal pain. Musculoskeletal: Negative for arthralgias and myalgias. Skin: Negative for rash and wound. Neurological: Negative for dizziness, syncope, light-headedness and headaches. Psychiatric/Behavioral: Negative for agitation. The patient is not nervous/anxious. 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 HRT use: No. History of abnormal pap: Denies Last pap: >15 years ago Last HPV: >15 years ago Last mammogram: Maybe >10 years ago Last colonoscopy: Has never had -- no history of CRC screening, denies melena or bloody stools FAMILY HISTORY Problem Relation Age of Onset other (ALS) Mother other (CHF) Mother Emphysema Father Heart Sister Heart Attack Sister Tuberculosis Sister Tuberculosis Sister Colon Cancer Sister Diabetes Sister Diabetes Brother Diabetes Brother Diabetes Brother other (atrial fibrillation) Child Social History Socioeconomic History Marital status: Tobacco Use Smoking status: Former Packs/day: 0.50 Years: 25.00 Pack years: 12.5 Types: Cigarettes Quit date: 06/03/2014 Years since quittin.8 Smokeless tobacco: Never Vaping Use Vaping Use: Never used Substance and Sexual Activity Alcohol use: Never Drug use: Never Social History Narrative Lives by herself but her daughter and niece are her neighbor in the [place] area. MEDICATIONS / ALLERGIES: Current Outpatient Medications Medication Sig vit C/E/cuperic/zinc/lutein (EYE MULTIVIT-LUTEIN,C-E-CU-ZN, ORAL) Take by mouth. cyanocobalamin, vitamin B-12, (VITAMIN B-12 ORAL) Take by mouth. ferrous sulfate 325 mg (65 mg iron) tablet Take 1 tablet by mouth once daily. lisinopril (PRINIVIL) 20 mg tablet Take 1.5 tablets by mouth once daily. (Patient taking differently: Take 40 mg by mouth once daily.) aspirin 81 mg chewable tablet Take 1 tablet by mouth once daily. magnesium oxide 200 mg magnesium tab Take 200 mg by mouth once daily. ascorbic acid, vitamin C, 500 mg cap Take 500 mg by mouth once daily. Zinc Acetate, Oral, 25 mg (zinc) cap Take 25 mg by mouth once daily. Current Facility-Administered Medications Medication Dose Route Frequency perflutren lipid microspheres 1.3 mL in NaCl (PF) 0.9% 10 mL injection (DEFINITY) INTRAVENOUS DIRECTED PRN sodium chlori (more content not included)...[facility] 04-18-2022 History of Present illness Narrative* Brittani Antonio MD - 04/18/2022 11:30 AM EST GYNECOLOGIC ONCOLOGY HISTORY AND PHYSICAL EXAMINATION SERVICE DATE: 04/18/22 SERVICE TIME: 3:30 PM PRIMARY CARE PHYSICIAN: Vern Bernardo MD CHIEF COMPLAINT/HISTORY OF PRESENT ILLNESS/ROS: CC: Pelvic mass Referring Provider: Emily Jacobs MD HPI: Patient noted lower abdominal pain in bilateral lower quadrants in January 2022 which continued and worsened into March leading toevaluation with her PCP and general surgeon which led to CT reviewed below. She was also told she had bilateral inguinal hernias. Taking tylenol extra strength 1-2 times daily for her abdominal pain. She reports occasional nausea and loss of appetite but nothing sustained. Denies bloating or increasing abdominal girth. Denies changes in bowel or bladder habits, no constipation or diarrhea. The history is provided by the patient and a caregiver (patient's daughter). ROS: Review of Systems Constitutional: Negative for activity change, diaphoresis, fever and unexpected weight change. HENT: Negative for ear pain, hearing loss and mouth sores. Eyes: Negative for pain and visual disturbance. Respiratory: Negative for cough, chest tightness and shortness of breath. Cardiovascular: Negative for chest pain and palpitations. Gastrointestinal: Positive for abdominal pain. Negative for constipation, diarrhea, nausea and vomiting. Endocrine: Negative for cold intolerance and heat intolerance. Genitourinary: Positive for pelvic pain. Negative for dysuria, frequency, hematuria, urgency, vaginal bleeding, vaginal discharge and vaginal pain. Musculoskeletal: Negative for arthralgias and myalgias. Skin: Negative for rash and wound. Neurological: Negative for dizziness, syncope, light-headedness and headaches. Psychiatric/Behavioral: Negative for agitation. The patient is not nervous/anxious. 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 HRT use: No. History of abnormal pap: Denies Last pap: >15 years ago Last HPV: >15 years ago Last mammogram: Maybe >10 years ago Last colonoscopy: Has never had -- no history of CRC screening, denies melena or bloody stools FAMILY HISTORY Problem Relation Age of Onset other (ALS) Mother other (CHF) Mother Emphysema Father Heart Sister Heart Attack Sister Tuberculosis Sister Tuberculosis Sister Colon Cancer Sister Diabetes Sister Diabetes Brother Diabetes Brother Diabetes Brother other (atrial fibrillation) Child Social History Socioeconomic History Marital status: Tobacco Use Smoking status: Former Packs/day: 0.50 Years: 25.00 Pack years: 12.5 Types: Cigarettes Quit date: 06/03/2014 Years since quittin.8 Smokeless tobacco: Never Vaping Use Vaping Use: Never used Substance and Sexual Activity Alcohol use: Never Drug use: Never Social History Narrative Lives by herself but her daughter and niece are her neighbor in the [place] area. MEDICATIONS / ALLERGIES: Current Outpatient Medications Medication Sig vit C/E/cuperic/zinc/lutein (EYE MULTIVIT-LUTEIN,C-E-CU-ZN, ORAL) Take by mouth. cyanocobalamin, vitamin B-12, (VITAMIN B-12 ORAL) Take by mouth. ferrous sulfate 325 mg (65 mg iron) tablet Take 1 tablet by mouth once daily. lisinopril (PRINIVIL) 20 mg tablet Take 1.5 tablets by mouth once daily. (Patient taking differently: Take 40 mg by mouth once daily.) aspirin 81 mg chewable tablet Take 1 tablet by mouth once daily. magnesium oxide 200 mg magnesium tab Take 200 mg by mouth once daily. ascorbic acid, vitamin C, 500 mg cap Take 500 mg by mouth once daily. Zinc Acetate, Oral, 25 mg (zinc) cap Take 25 mg by mouth once daily. Current Facility-Administered Medications Medication Dose Route Frequency perflutren lipid microspheres 1.3 mL in NaCl (PF) 0.9% 10 mL injection (DEFINITY) INTRAVENOUS DIRECTED PRN sodium chloride 0.9 % (flush) 10 mL (BD POSIFLUSH) 10 mL INTRAVENOUS DIRECTED PRN perflutren lipid microspheres 1.3 mL in NaCl (PF) 0.9% 10 mL injection (DEFINITY) INTRAVENOUS DIRECTED PRN sodium chloride 0.9 % (flush) 10 mL (BD POSIFLUSH) 10 mL INTRAVENOUS DIRECTED PRN ALLERGIES ALLERGIES Allergen Reactions Keflex [Cephalexin] Rash Mouth blisters, thrush PHYSICAL EXAM: BP 102/64 (BP Site: Left Arm, BP Position: Sitting, BP Cuff Size: Regular Adult) Pulse 80 Temp 36.9 C (98.5 F) (Oral) Ht 148.6 cm (4' 10.5) Wt 53.6 kg (118 lb 3.2 oz) SpO2 99% BMI 24.28 kg/m Physical Exam Constitutional: Appearance: Normal appearance. HENT: Head: Normocephalic. Nose: Nose normal. Mouth/Throat: Mouth: Mucous membranes are moist. Eyes: Conjunctiva/sclera: Conjunctivae normal. Cardiovascular: Rate and Rhythm: Normal rate and regular rhythm. Pulses: Normal pulses. Heart sounds: Normal heart sounds. Pulmonary: Breath sounds: Normal breath sounds. Abdominal: General: Abdomen is flat. Palpations: Abdomen is soft. Tenderness: There is abdominal tenderness in the right lower quadrant and left lower quadrant. There is no guarding or rebound. Genitourinary: Comments: NEFG. Normal appearing cervix and vagina. No blood or discharge in vault. +CMT and adnexal tenderness. No palpable masses or nodularity. Unremarkable rectovaginal exam. Musculoskeletal: General: Normal range of motion. Skin: General: Skin is warm and dry. Neurological: General: No focal deficit present. Mental Status: She is alert and oriented to person, place, and time. LABS: CA-125: 290 on 04/09/2022 IMAGING: Pelvic US 04/05/2022: FINDINGS: UTERUS: Anteverted. The uterus measures 5.9 x 4.7 x 2.7 cm. There is a large pedunculated fibroid on the left measuring 6.1 x 8.4 x 6.4 cm The endometrial stripe measures 3 mm in AP diameter which is within normal limits. The normal ovaries are not visualized due to bowel gas producing artifact FREE FLUID: Moderate IMPRESSION: Large pedunculated fibroid in the left adnexa with moderate ascites. No definitive evidence for ovarian mass however the ovaries are not visualized due to bowel gas producing artifact CT w/ IV contrast, chest/abdomen/pelvis 11/03/2021: From Results of report- ABDOMEN: The liver, gallbladder, spleen, and pancreas appear normal. The adrenal glands appear normal. Multiple bilateral renal cyst (largest measures 2.7 cm on the right and 4.2 cm and left Both kidneys are normal in size, shape, and density. There is no abnormal mass or hydronephrosis. PELVIS: There is no significant retroperitoneal adenopathy. No free fluid or free air within the abdomen or pelvis. Small bowel containing RIGHT inguinal hernia. Mild prominence of pelvic vasculature and gonadal veins. The bowel appears unremarkable on this non-GI contrast examination. The urinary bladder appears normal. There are scattered phleboliths within the deep pelvis. BONES: Diffuse osteopenia CT chest/abdomen/pelvis 04/04/2021: Images imported for review ASSESSMENT/PLAN: Ashley Alcantar is a 81 year old with a recently diagnosed pelvic mass upon work up for abdominal pain. 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 -We reviewed the pelvic mass imaging in detail and reviewed radiologic findings arguing for and against malignancy. Specifically, we discussed that on my comparison of most recent CT abdomen/pelvis 04/04/[address] chest/abdomen/pelvis from 11/03/2021 there is interval development of an 8cm non enhancing, heterogenous appearing, mass that appears anterior to the uterus and may represent an ovarian cystic mass and less likely a fibroid given is recent development despite ultrasound appearance consistent with solid components of the mass -Role for surgical removal vs surveillance and risks and benefits of each was discussed. -We discussed that complex pelvic masses can be malignant in 5-7% of all cases but that given the appearance of her mass elevated tumor markers and lack of evidence of metastatic disease, my recommendation would be to proceed with removal for definitive pathologic evaluation. We discussed that not removing the mass could lead to spread of a cancer, increase in size of mass leading to worsening ornew symptoms. - Once removed, we discussed the 3 likely outcomes of frozen section and final pathology would be benign, borderline, and carcinoma. We reviewed that borderline tumors are not malignant, but require additional peritoneal and omental biopsies for staging to determine spread. We briefly discussed their risk for recurrence, mostly as borderline tumors in contralateral ovary (if not removed). We alsodiscussed staging lymphadenectomy, omentectomy, possible open surgery in the event of a carcinoma. Given risk of morbity/mortality with debilking surgery, we also discussed that in the event of evidence of metastatic disease at time of laparoscopy, plan would be to obtain biopsy and then proceed with neoadjuvant chemotherapy rather than primary debulking. # Preoperative Discussion: - We made a shared decision to proceed with exam under anesthesia, diagnostic laparoscopy, removal of pelvic mass, total laparoscopic hysterectomy and bilateral salpingoophorectomy, possible omentectomy and lymphadenectomy, possible blood transfusion and any other indicated procedure. With intraoper ative frozen section to guide need for omentectomy or lymphadenectomy. -We discussed the general recovery time frame and symptoms and the risks of the surgery, including but not limited to: bleeding requiring a transfusion, infection, VTE, injury to adjacent structures,pain, and poor healing/cosmesis. [ ] f/u T&S, tumor markers, CBC, RFP [ ] cardiac clearance from her Griddle Attendant, Ruddy Puri MD [ ] will need CT chest updated [ ] Patient is considering second opinion, which I encouraged. Medical Decision Making: Problems: High: Illness/injury w/ threat to life/body function Data: Unique test result(s) reviewed: 3+ Unique test(s) ordered: 3+ Risk: High: Decision on elective major surgery w/ risk factors Medical Decision Making Level: 5 - High Brittani Antonio MD, MS Gynecologic Oncologist documented [facility] encounterC[facility] History of Present illness Narrative* Emily Jacobs MD - 04/13/2022 11:00 AM EST Ashley Alcantar is a 81 year old female who presents as a new patient. HPI: Accompanied by her daughter Giovanna. Here as a new patient for a consultation regarding a pelvic mass and elevated CA-125. She was having generalized abdominal pain and therefore her PCP ordered a CT followed by a CA- 125 and pelvic US. CTAP showed a mass in the pelvis that could represent a large exophytic fibroid and moderate amount of free fluid in the abdomen and pelvis which may represent ascites. Pelvic US showed a large pedunculated fibroid on the left measuring 6.1 x 8.4 x 6.4 cm with an EMS of 3 mm, and ovaries unable to be visualized. CA-125 was She reports pain x 2 weeks. Noticing looser stools and occasional nausea as well. She states she was told many years ago that she had fibroids. She reports normal pap smears in the past. OB History No obstetric history on file. 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 Mechanic History Comments: Sexual Activity: No sexual activity data on record; No partner data on record Contraception: No contraception data on record PAST MEDICAL HISTORY Diagnosis Date Anemia Aortic stenosis CLL (chronic lymphocytic leukemia) (HCC) Essential hypertension PAST SURGICAL HISTORY Procedure Laterality Date ANESTH, SECTION 11/19/1970 REMV CATARACT EXTRACAP,INSERT LENS Right 06/20/2021 REMV CATARACT EXTRACAP,INSERT LENS Left 07/11/2021 TONSILLECTOMY & ADENOIDECTOMY <AGE 11 age 28 TOOTH EXTRACTION 11/01/2021 FAMILY HISTORY Problem Relation Age of Onset other (ALS) Mother other (CHF) Mother Emphysema Father Heart Sister Heart Attack Sister Tuberculosis Sister Tuberculosis Sister Diabetes Sister Diabetes Brother Diabetes Brother Diabetes Brother other (atrial fibrillation) Child Social History Tobacco Use Smoking status: Former Packs/day: 0.50 Years: 25.00 Pack years: 12.50 Types: Cigarettes Quit date: 06/03/2014 Years since quittin.8 Smokeless tobacco: Never Vaping Use Vaping Use: Never used Substance Use Topics Alcohol use: Never Drug use: Never Current Outpatient Medications Medication Sig cyanocobalamin, vitamin B-12, (VITAMIN B-12 ORAL) Take by mouth. ferrous sulfate 325 mg (65 mg iron) tablet Take 1 tablet by mouth once daily. lisinopril (PRINIVIL) 20 mg tablet Take 1.5 tablets by mouth once daily. (Patient taking differently: Take 40 mg by mouth once daily.) aspirin 81 mg chewable tablet Take 1 tablet by mouth once daily. doxycycline hyclate (VIBRAMYCIN) 100 mg capsule Take 100 mg by mouth twice daily. magnesium oxide 200 mg magnesium tab Take 200 mg by mouth once daily. ascorbic acid, vitamin C, 500 mg cap Take 500 mg by mouth once daily. calcium carbonate (CALTRATE) 600 mg calcium (1,500 mg) tab Take 600 mg by mouth once daily. Zinc Acetate, Oral, 25 mg (zinc) cap Take 25 mg by mouth once daily. Current Facility-Administered Medications Medication Dose Route Frequency perflutren lipid microspheres 1.3 mL in NaCl (PF) 0.9% 10 mL injection (DEFINITY) INTRAVENOUS DIRECTED PRN sodium chloride 0.9 % (flush) 10 mL (BD POSIFLUSH) 10 mL INTRAVENOUS DIRECTED PRN perflutren lipid microspheres 1.3 mL in NaCl (PF) 0.9% 10 mL injection (DEFINITY) INTRAVENOUS DIRECTED PRN sodium chloride 0.9 % (flush) 10 mL (BD POSIFLUSH) 10 mL INTRAVENOUS DIRECTED PRN Allergies As of Date: 04/13/2022 Allergen Noted Reaction KEFLEX [CEPHALEXIN] 12/22/2021 Rash Fully Assessed 04/13/2022 REVIEW OF SYSTEMS Abdomen: No vomiting. Expanded ROS: See HPI. Allergies and current medication updated:Yes EXAM: BP 112/68 Wt 118 lb 9.6 oz (53.8kg) GENERAL: pleasant, female in no apparent distress HEENT: Normocephalic, atraumatic, mucus membranes moist, and no lesions NECK: full range of motion DERMATOLOGY: Normal CHEST: Normal inspiratory effort NEURO: exam grossly non-focal EXTREMITIES: normal ASSESSMENT AND PLAN: Encounter Diagnosis ICD-10-CM 1. Uterine leiomyoma, unspecified location D25.9 CONSULT TO GYNECOLOGIC/ONCOLOGY 2. Elevated cancer antigen 125 (CA-125) R97.1 CONSULT TO GYNECOLOGIC/ONCOLOGY 3. Other ascites R18.8 CONSULT TO GYNECOLOGIC/ONCOLOGY Reviewed pelvic US, CT scan and CA-125 results with patient and her daughter that were completed byher PCP. Discussed concern would be for malignancy given pelvic mass, ascites, and elevated CA-125.However also discussed uterine fibroids are typically benign in nature, and benign fibroids can cause an elevated CA-125 as this is a non specific marker. Also discussed possibility of an adnexal mass given the fibroid is reported to be pedunculated and large in size. Radiology recommended MRI for further evaluation. Discussed patient with PCP who was considering paracentesis. Would recommend that patient have a consultation with [facility] for another opinion first. They are agreeable to seeing [facility]. Emily Jacobs DO Medical Decision Making: Problems: Moderate: New problem with uncertain prognosis Data: Unique source(s) for external note(s) reviewed: 1 Unique test(s) ordered: 1 Medical Decision Making Level: 3 - Low documented in this encounterC[facility]12-02-[facility] Miscellaneous Notes* Telephone Encounter - Gely Escobar - 03/02/2022 2:41 PM EST Pt is scheduled * Telephone Encounter - Bel Duval Pss - 02/27/2022 8:39 AM EST Spoke with patient who stated she was driving and would have to call back to schedule. Please schedule CBC/IRON STUDIES in about 2 months. Document and close once completed. * Telephone Encounter - Hayley Felix LPN - 02/26/2022 9:24 AM EST Pt. Notified of lab results, continue ferrous sulfate 325 every other day. Recheck labs in 2 months. PSS please reach out to pt. To get scheduled.Recheck CBC/iron studies in about 2 months. Hayley Felix LPN * Telephone Encounter - Ruddy Patricio DO - 02/25/2022 10:15 AM EST Let her know that her blood count did increase in the last few months. Continue ferrous sulfate 325mg once every other day if tolerating well. Recheck CBC/iron studies in about 2 months. Ruddy Patricio DO documented in this encounterC[facility]11-25-[facility]22 Instructions* Patient Instructions* Nir Roth MD - 02/23/2022 3:35 PM EST Echo in November next year at any [facility] facility Then we can do a phone visit Increase Prinivil to 30 mg/d and keep an eye on your BP Your regular plastic die maker apprentice can manage your BP and make medication adjustments documented in this encounterC[facility]11-25-[facility] History of Present illness Narrative* Nir Roth MD - 02/23/2022 3:15 PM EST Images from the original note were not included. [facility] Department of Cardiovascular Medicine SECTION OF INTERVENTIONAL CARDIOLOGY OUTPATIENT VISIT DATE February 23, 2022 OUTPATIENT VISIT TYPE ESTABLISHED PRIMARY CARE PHYSICIAN: Vern Bernardo [address] [place] [address] REFERRING PHYSICIAN: Nir Roth [facility] [address] [facility] [id number] CHIEF COMPLAINT: Follow-up post TF MALCOLM with 25 mm Portico NG on 12/14/2021 Mild CAD Hypertension HISTORY OF PRESENT ILLNESS: Ms. Alcantar remains well clinically. Her SBPs range between 130-150 mmHg. ECG today shows sinus rhythm. Echocardiogram today shows an LVEF of 65%. The RVSP is mildly elevated at 39 mmHg. There is 1-2+ MR, 1-2+ TR. The peak/mean transaortic gradients are 29/14 mmHg respectively, with trace to 1+ PVL. DI0.45. PAST CARDIAC HISTORY: See HPI PAST MEDICAL HISTORY Diagnosis Date Anemia Aortic stenosis CLL (chronic lymphocytic leukemia) (HCC) Essential hypertension PAST SURGICAL HISTORY Procedure Laterality Date ANESTH, SECTION 11/19/1970 REMV CATARACT EXTRACAP,INSERT LENS Right 06/20/2021 REMV CATARACT EXTRACAP,INSERT LENS Left 07/11/2021 TONSILLECTOMY & ADENOIDECTOMY <AGE 11 age 28 TOOTH EXTRACTION 11/01/2021 SOCIAL HISTORY Social History Tobacco Use Smoking status: Former Packs/day: 0.50 Years: 25.00 Pack years: 12.50 Types: Cigarettes Quit date: 06/03/2014 Years since quittin.7 Smokeless tobacco: Never Vaping Use Vaping Use: Never used Substance Use Topics Alcohol use: Never Drug use: Never FAMILY HISTORY Problem Relation Age of Onset other (ALS) Mother other (CHF) Mother Emphysema Father Heart Sister Heart Attack Sister Tuberculosis Sister Tuberculosis Sister Diabetes Sister Diabetes Brother Diabetes Brother Diabetes Brother other (atrial fibrillation) Child ALLERGIES: ALLERGIES Allergen Reactions Keflex [Cephalexin] Rash Mouth blisters, thrush MEDICATIONS: Current Outpatient Medications Medication Sig doxycycline hyclate (VIBRAMYCIN) 100 mg capsule Take 100 mg by mouth twice daily. ferrous sulfate 325 mg (65 mg iron) tablet Take 1 tablet by mouth once daily. aspirin 81 mg chewable tablet Take 1 tablet by mouth once daily. magnesium oxide 200 mg magnesium tab Take 200 mg by mouth once daily. ascorbic acid, vitamin C, 500 mg cap Take 500 mg by mouth once daily. calcium carbonate (CALTRATE) 600 mg calcium (1,500 mg) tab Take 600 mg by mouth once daily. Zinc Acetate, Oral, 25 mg (zinc) cap Take 25 mg by mouth once daily. lisinopril (PRINIVIL) 20 mg tablet Take 1.5 tablets by mouth once daily. Current Facility-Administered Medications Medication Dose Route Frequency perflutren lipid microspheres 1.3 mL in NaCl (PF) 0.9% 10 mL injection (DEFINITY) INTRAVENOUS DIRECTED PRN sodium chloride 0.9 % (flush) 10 mL (BD POSIFLUSH) 10 mL INTRAVENOUS DIRECTED PRN perflutren lipid microspheres 1.3 mL in NaCl (PF) 0.9% 10 mL injection (DEFINITY) INTRAVENOUS DIRECTED PRN sodium chloride 0.9 % (flush) 10 mL (BD POSIFLUSH) 10 mL INTRAVENOUS DIRECTED PRN REVIEW OF SYSTEMS: GENERAL: Negative for: Weight loss or gain, Fever or Chills, Weakness and Sleep difficulties. HEENT: Negative for: Headache, Impaired Vision, Glasses, Hearing Impairment, Ringing in Ears, Nosebleeds, Poor dental care, Bleeding Gums, Dentures NECK: Negative for: Swelling, Pain, Stiffness RESPIRATORY: Negative for: Cough, Blood in Sputum, Shortness of breath, Wheezing, Apnea GASTROINTESTINAL: Negative for: Trouble swallowing, Heartburn, Change in bowel habits, Blood in stool, Dark black stools MUSCULOSKELETAL: Negative for: Muscle or joint pain, Stiffness , Joint swelling NEUROLOGIC/PSYCHIATRIC: Negative for: Weakness, Paralysis, Numbness, Tingling, Tremor, Nervousness,Depressed mood, Memory loss SKIN: Negative for: Rashes, Itching HEMATOLOGICAL/LYMPHATIC: Negative for: Easy bruising , Easy bleeding ENDOCRINE: Negative for: Heat or cold intolerance, Excessive sweating, Frequent urination, Frequentthirst PHYSICAL EXAMINATION: BP 156/60[right arm[ Pulse 54 Resp 17 Ht 4' 10.5 (1.49m) Wt 117 lb 14.4 oz (53.5kg) [id number]% BMI 24.22 kg/(m^2). General: Well appearing, in no acute distress, speaking in complete sentences. Skin: No clubbing, no cyanosis. Head/Eyes: Extra ocular movements intact Mouth: Teeth in good repair. Neck: No jugular venous distention, no carotid bruits, carotids have a normal upstroke, no palpablethyromegaly. Lungs: Clear to auscultation and no rales Heart: Regular rhythm, PMI not displaced, S1, S2 normal, no S3, no S4, no heaves, no rub and no murmur. PV Pulses:Pulses intact Abdomen: Soft, nontender, bowel sounds normal, no palpable organomegaly, no bruits. Extremities: No peripheral edema . Grade 2/4 distal pulses bilaterally. Edema Scale: No Musculoskeletal: Normal gait and ambulation Neuro: Oriented to time, place and person CARDIOVASCULAR MEDICINE TESTING: Electrocardiogram: As described above Echocardiogram: As described above I have personally reviewed the Electrocardiogram and Echocardiogram. IMPRESSION: Good clinical and imaging result post TF MALCOLM. Her systolic blood pressures are little on the high side and we can try to optimize her antihypertensive medications with a general plastic die maker apprentice. PLAN AND RECOMMENDATIONS: She will have an echocardiogram performed locally around November next year and we can catch up onthe phone to discuss. Of increased lisinopril up to 30 mg daily and have asked her to keep an eye on the blood pressure and to follow-up with her local plastic die maker apprentice to tweak this if needed. Given that she has mild lipid buildup in her coronaries she should ideally be on a statin but I will leave this up to her local plastic die maker apprentice. Nir Roth MD, PhD, FRACP Clinical Staff, Review Rn liquor grinding mill operator Director, Plaque Imaging Core Laboratory, [facility] Department of Cardiovascular Medicine Heart [facility] V[facility] [place] [facility] Desk [id number] [place] [address] Office This letter was dictated using a voice recognition program, please excuse any typos. CONTACT INFORMATION: documented in this encounterCleveland [facility]11-12-2022 Miscellaneous Notes* Telephone Encounter - Rosa Ortiz RN - 02/10/2022 5:58 PM EST [facility] Contact Center Follow Up Phone Encounter Date: February 10, 2022 Time: 5:58 PM Service Provider: Nir Raya MD, PhD Reason for call: Follow up Comments: Pt states that she is doing ok since her TAVR. She is following up locally with her plastic die maker apprentice. I did remind her of upcoming appts with Dr Roth on 02/23/22. Rosa Ortiz RN documented in this encounterCleveland Clinic [facility]09-29-2022 Miscellaneous Notes* Telephone Encounter - Giovanna Ferrari - 12/28/2021 9:34 AM EDT Scheduled as directed. Giovanna Ferrari * Telephone Encounter - Gloria Barreto LPN - 12/27/2021 9:23 AM EDT Patient started her iron supplement and is tolerating it well so far. PSR's- please schedule patient for CBC/iron studies 02/19/2022 @ 8:30. No need to notify patient, she is aware. Gloria Barreto LPN * Telephone Encounter - Ruddy Patricio DO - 12/27/2021 6:20 AM EDT At her recent office visit, I had asked her to start an oral iron supplement. Please see if she hasdone so and if she is tolerating it well. Repeat CBC/iron studies in about 8 weeks. Can let her know that her hemoglobin level has come up more since she had her heart valve procedure which is good. Ruddy Patricio DO documented in this encounterCleveland Clinic [facility]09-26-2022 History of Present illness Narrative* Ruddy Patricio, DO - 12/25/2021 10:20 AM EDT Oncologic problem(s): 1) CLL. HPI: The patient is an 81-year-old female has a past medical history significant for hypertension and aortic stenosis. She had a CBC on 06/05/2021 as part of work-up for cataract surgery. She was incidentally found to have a white count of 25,900. Hemoglobin was 11.7 g/dL and the platelet count was 229,000. Differential significant for an absolute lymphocyte count of 20,850. Flow cytometry in mid May identified 2 populations of CD5 positive, CD23 positive monoclonal B cells. 1 representing 98% was lambda light chain restricted and the other 2% was kappa light chain restricted. Chemistry panel revealed a normal total bilirubin, AST, ALT and alkaline phosphatase. Total protein, albumin and globulin levels were normal. Serum creatinine was 1.0 mg/dL. Serum calcium was 9.2 mg/dL. She has no complaints today. She is active. 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 She lives independently and is capable of all ADLs and IADLs. She has noticed some increase in shortness of breath over the last several weeks. She is scheduled to see a plastic die maker apprentice in August for the history of aortic stenosis. She has not had any unusual bleeding or unexplained bruising. Presents for ongoing oncologic management. Interim history: She underwent TAVR. Does not feel much different. No infectious complications. PMH, medications and allergies personally reviewed by me today. Any changes documented in appropriate section. ROS: Constitutional: Denies episodes of fever and night sweats. Not significantly fatigued. Normal appetite. Neuro: Denies VELEZ, vertigo, dizziness and imbalance. Denies symptoms of neuropathy. HEENT: No recent change in voice, vision or hearing. Resp: Denies cough, wheeze and hemoptysis. Denies shortness of breath at rest. CVS: Denies exertional chest pain, PND, orthopnea and LE edema. GI: Denies dysgeusia. Denies symptoms of stomatitis. Denies dysphagia and odynophagia. Denies reflux, n/v, change in bowel habits and abdominal pain. : Denies dysuria or gross hematuria. No symptoms of bladder outlet obstruction. Endo: Denies hot flashes. Denies polyuria and polydipsia. Denies heat and cold intolerance. Musculoskeletal: Denies bone, back, joint and muscular pain. Derm: Denies rash. Denies jaundice and diffuse pruritis. Heme: Denies unusual bleeding and unexplained bruising. Psych: Normal mood. PHYSICAL EXAM: Vitals: Blood pressure 158/59, pulse (!) 55, temperature 36.4 C (97.6 F), temperature source Temporal, weight 54 kg (119 lb). Well-appearing and in no acute distress. EYES: Sclerae are anicteric bilaterally. LYMPHATIC: There is no palpable cervical, supraclavicular, axillary or inguinal adenopathy. RESPIRATORY: Inspiratory breath sounds are of normal intensity in all sweet. No rales, wheezes or rhonchi. CARDIOVASCULAR: Rhythm is regular. ABDOMEN: The abdomen is nondistended. No organomegaly. No tenderness. Extremities: No swelling or edema. SKIN: No jaundice or rash. No petechiae. LABS: Component Latest Ref Rng & Units 12/15/2021 12/25/2021 WBC 3.70 - 11.00 k/uL 15.76 (H) 25.62 (H) RBC 3.90 - 5.20 m/uL 3.36 (L) 3.42 (L) Hemoglobin 11.5 - 15.5 g/dL 9.8 (L) 10.1 (L) Hematocrit 36.0 - 46.0 % 30.7 (L) 31.6 (L) MCV 80.0 - 100.0 fL 91.4 92.4 MCH 26.0 - 34.0 pg 29.2 29.5 MCHC 30.5 - 36.0 g/dL 31.9 32.0 RDW-CV 11.5 - 15.0 % 13.2 13.6 Platelet Count 150 - 400 k/uL 109 (L) 173 MPV 9.0 - 12.7 fL 10.0 9.3 NRBC /100 WBC 0.0 Absolute nRBC <0.01 k/uL <0.01 Neut% % 17.0 Abs Neut (ANC) 1.45 - 7.50 k/uL 2.68 Lymph% % 83.0 Abs Lymph 1.00 - 4.00 k/uL 13.08 (H) [place]% % 0.0 Abs [place] <0.87 k/uL 0.00 Eosin% % 0.0 Abs Eosin <0.46 k/uL 0.00 Baso% % 0.0 Abs Baso <0.11 k/uL 0.00 Platelet Estimate Decreased Red Cell Morph Reviewed: see results of individual morphologies Ovalocytes Few DTYPE Manual ASSESSMENT/PLAN: (C91.10) CLL (chronic lymphocytic leukemia) (HCC) (primary encounter diagnosis) (D72.820) Lymphocytosis (D64.9) Anemia, unspecified type Assessment: -The patient is an 81-year-old female who was incidentally diagnosed with CLL when establishing medical care for need for cataract surgery. She was also diagnosed with aortic stenosis. -Absolute lymphocyte count lower now than it was in July. -Again discussed indications for treatment of CLL. She has no clear indication at this point. -She still has mild anemia. This may be secondary to chronic kidney disease. She was very surprisedto hear today that she did not have normal kidney function. I explained this to her in detail. Explained we will check iron levels and I recommended she start an oral iron supplement every other day. Plan: -Begin ferrous sulfate 3 and 25 mg every other day. -Add iron studies to today's lab work. If iron saturation less than 20% she will require parenteraliron. -She will follow-up with her PCP for management of her chronic kidney disease and other chronic medical issues. -Recheck in 6 months. Portions of this documentation were copied and pasted from previous office visit notes in order to provide a cohesive continuity of the history. The note has been reviewed and edited and updated as necessary. During this patient visit I have spent approximately 20 minutes out of 25 in counseling regarding treatment options, medications, and test results and coordinating care. Ruddy Patricio DO documented in this encounterCleveland Clinic [facility]09-23-2022 History of Present illness Narrative* Khadijah Tipton PA-C - 12/22/2021 8:00 AM EDT Images from the original note were not included. [facility] [place] [facility] Department of Cardiovascular Medicine SECTION OF INTERVENTIONAL CARDIOLOGY OUTPATIENT VISIT DATE December 22, 2021 OUTPATIENT VISIT TYPE ESTABLISHED PRIMARY CARE PHYSICIAN: Vern Bernardo [address] [place] [address] REFERRING PHYSICIAN: Nir Roth [facility] [address] [facility] [address] CHIEF COMPLAINT: Patient presents with: Follow Up HISTORY OF PRESENT ILLNESS: Ms. Alcantar is a 81 year old female who presents today for follow-up visit status post successful Transcatheter Aortic Valve Replacement with 25 mm Portico NG Valve on 12/14/21. PAST CARDIAC HISTORY: See HPI PAST MEDICAL HISTORY Diagnosis Date Anemia Aortic stenosis CLL (chronic lymphocytic leukemia) (HCC) Essential hypertension PAST SURGICAL HISTORY Procedure Laterality Date ANESTH, SECTION 11/19/1970 REMV CATARACT EXTRACAP,INSERT LENS Right 06/20/2021 REMV CATARACT EXTRACAP,INSERT LENS Left 07/11/2021 TONSILLECTOMY & ADENOIDECTOMY <AGE 11 age 28 TOOTH EXTRACTION 11/01/2021 SOCIAL HISTORY Social History Tobacco Use Smoking status: Former Packs/day: 0.50 Years: 25.00 Pack years: 12.50 Types: Cigarettes Quit date: 06/03/2014 Years since quittin.5 Smokeless tobacco: Never Vaping Use Vaping Use: Never used Substance Use Topics Alcohol use: Never Drug use: Never FAMILY HISTORY Problem Relation Age of Onset other (ALS) Mother other (CHF) Mother Emphysema Father Heart Sister Heart Attack Sister Tuberculosis Sister Tuberculosis Sister Diabetes Sister Diabetes Brother Diabetes Brother Diabetes Brother other (atrial fibrillation) Child ALLERGIES: ALLERGIES No Known Allergies MEDICATIONS: aspirin 81 mg chewable tablet^Take 1 tablet by mouth once daily.^Disp: 90 tablet^Rfl: 3 magnesium oxide 200 mg magnesium tab^Take 200 mg by mouth once daily.^Disp: ^Rfl: ascorbic acid, vitamin C, 500 mg cap^Take 500 mg by mouth once daily.^Disp: ^Rfl: calcium carbonate (CALTRATE) 600 mg calcium (1,500 mg) tab^Take 600 mg by mouth once daily.^Disp: ^Rfl: Zinc Acetate, Oral, 25 mg (zinc) cap^Take 25 mg by mouth once daily.^Disp: ^Rfl: lisinopril (ZESTRIL, PRINIVIL) 10 mg tablet^Take 1 tablet by mouth once daily.^Disp: 90 tablet^Rfl:3 REVIEW OF SYSTEMS: HEENT: Denies recent severe headaches, visual changes, difficulty swallowing. GASTROINTESTINAL: Denies melena, hematochezia, heartburn. GENITOURINARY: Denies hematuria. MUSCULOSKELETAL: Denies claudication or muscle myalgias. NEUROLOGIC: Denies unilateral paralysis, slurred speech. SKIN: Denies skin ulcers or lesions. HEMATOLOGICAL: Denies gingival bleeding, or prolonged epistaxis. ENDOCRINE:Denies heat or cold intolerance, excessive thirst or urination. All Other Remaining ROS negative. PHYSICAL EXAMINATION: BP 147/60 Pulse 57 Ht 4' 10 (1.47m) Wt 114 lb (51.7kg) BMI 23.83 kg/(m^2). General:well developed Skin:warm and dry Neck:no JVD, no carotid bruits, thyroid not palpable, no tenderness Lungs:clear to auscultation and no rales Heart:regular rhythm, S1, S2 normal, no S3, no S4, no heaves, no thrills, and no murmur PV Pulses:pulses intact, no varicosities Abdomen:soft, non-tender, bowel sounds present Extremities:normal exam Edema Scale:no Musculoskeletal:Normal gait and ambulation, Able to undergo exercise testing and/or participate in an exercise program. Neurologic:Oriented to time, place and person, Mood & Affect: appropriate CARDIOVASCULAR MEDICINE TESTING: Electrocardiogram: SINUS BRADYCARDIA (Stable LA 186) I have personally reviewed the Electrocardiogram. HISTORY Ashley Alcantar is an 81 year old female with pmhx of: Non-rheumatic aortic stenosis and aortic insufficiency, s/p TAVR 12/14/21 Chronic lymphocytic leukemia, not on current therapy Hypertension Chronic diastolic heart failure Mild (1-2+) mitral and tricuspid regurgitation ASSESSMENT/ IMPRESSION Prior to TAVR, She is not aware of any symptoms. She will sometimes notice a small ring around her ankle at the end of the day. Denies: chest pain, shortness of breath, PND, lightheadedness, and syncope Echo 11/03/21: EF = 68 5% Tricuspid aortic valve. There is moderately severe (3+) aortic valve regurgitation. There is moderately severe aortic valve stenosis caused by calcified valve and restricted opening. AV area is 0.91 cm (0.62 cm /m ) by continuity, Vmax. The peak gradient is 73 mmHg, the mean gradient is 40 mmHg and the dimensionless valve index is 0.21. On 12/14/21, she underwent Transcatheter Aortic Valve Replacement with 25 mm Portico NG Valve Post TAVR Echo: EF = 56 5% Portico prosthetic aortic valve (size #25). There is mild (1+) aortic valve regurgitation. The peakgradient is 24 mmHg, the mean gradient is 10 mmHg and the dimensionless valve index is 0.47. Patient developed a new LBBB post procedure QRS 84 > 144 with new borderline 1st degree AVB 172 > 204. We will keep her overnight to watch rhythm (LBBB, 1st degree AVB). Depending on what her ECG looks tomorrow morning, we will make further decisions. EKG pre procedure: NSB, LA 176, QRS 84 EKG post procedure: NSR, LA 200, QRS 142 Patient remained stable for discharge home with follow up. Today 12/22/21, she presents doing well but had allergy to Keflex and developed nausea, diarrhea, rash and mouth sores. She has bene tired because of this. Right groin incision well healed She denies chest pain, shortness of breath, dyspnea on exertion, orthopnea, PND, palpitations, lightheadedness, syncope, claudication, and leg swelling, coughing, wheezing PLAN AND RECOMMENDATIONS: Aspirin: 81 mg daily DAPT: N/a AC: N/a Beta Simran: N/a ACEI/ARB/ARNI: Resume Lisinopril 10 mg daily SGLT2 inhibitor: N/a Diuretic: N/a Aldosterone antagonist: N/a Statin: N/a Device therapy: Ziopatch at discharge Follow up/Disposition: Follow up with Dr. Roth 02/23/22 and yearly check up in October with Echo I spent a total of 45 minutes on the date of the service which included preparing to see the patient, [id number] patient care, completing clinical documentation, performing a medically appropriate examination, counseling and educating the patient/family/caregiver, ordering medications, tests, or p rocedures, and communicating results to the patient/family/caregiver. Khadijah Tipton PA-C documented in this encounterC[facility] Clinic [facility]09-17-2022 Miscellaneous Notes* Telephone Encounter - Nichole Pepe APRN.CNP - 12/16/2021 1:32 PM EDT [facility] Contact Center Follow Up Phone Encounter Date: December 16, 2021 Time: 1:32 PM Service Provider: Nir Roth MD Reason for call: Daughter is called about mom, patient, who reports she believes she is having an allergic reaction.Reports whole body itching, lip swelling and a lump in throat. Denies SOB or rash. Advised to take give patient Benadryl and to proceed to nearest ED or Urgent Care to be evaluated. Advised to discontinue antibiotic and be evaluated immediately. If new or worsening symptoms advised to call 911. Daughter and patient do not wish to for patient to be evaluated, they request a new antibiotic. Advised that if patient is having an allergic reaction that is impacting her lips and throat she needs to be seen. Daughter states understanding . Nichole Pepe APRN.JOSE documented in this encounterCleveland Clinic [facility]09-14-[facility] History of Present illness Narrative* Ned Iglesias MD - 12/13/2021 2:01 PM EDT Cardiothoracic Anesthesiology Preoperative Assessment Service Date: 12/13/2021 Service Time: 2:01 PM Primary Care Physician: Vern Bernardo MD Subjective Scheduled procedure: TAVR Surgeon: Gonzalez Scheduled date: 12/14/2021 HPI: [id number] presents for preop eval prior to TAVR Review no known heparin intolerance not taking anticoagulant/antiplatelet medication no non-cardiac IEDs present no known esophageal disorders blood transfusion consented - COVID-19 Immunization Status COVID-19 VACCINE (Series Information) Completed 08/20/2021 Imm Admin: COVID-19 vaccine, age 12+ yr (PFIZER-BIONTECH - MEYERS TOP) 12/26/2020 Imm Admin: COVID-19 vaccine, age 12+ yr (PFIZER-BIONTECH - PURPLE TOP) 05/12/2020 Imm Admin: COVID-19 vaccine, age 12+ yr (PFIZER-BIONTECH - PURPLE TOP) Only the first 3 history entries have been loaded, but more history exists. The patient has the following: ACTIVE PROBLEM LIST Nonrheumatic Aortic Valve Stenosis Leucocytosis PAST MEDICAL HISTORY Diagnosis Date Anemia Aortic stenosis CLL (chronic lymphocytic leukemia) (HCC) Essential hypertension PAST SURGICAL HISTORY Procedure Laterality Date ANESTH, SECTION 11/19/1970 REMV CATARACT EXTRACAP,INSERT LENS Right 06/20/2021 REMV CATARACT EXTRACAP,INSERT LENS Left 07/11/2021 TONSILLECTOMY & ADENOIDECTOMY <AGE 11 age 28 TOOTH EXTRACTION 11/01/2021 FAMILY HISTORY Problem Relation Age of Onset other (ALS) Mother other (CHF) Mother Emphysema Father Heart Sister Heart Attack Sister Tuberculosis Sister Tuberculosis Sister Diabetes Sister Diabetes Brother Diabetes Brother Diabetes Brother other (atrial fibrillation) Child Social History Tobacco Use Smoking status: Former Packs/day: 0.50 Years: 25.00 Pack years: 12.50 Types: Cigarettes Quit date: 06/03/2014 Years since quittin.5 Smokeless tobacco: Never Vaping Use Vaping Use: Never used Substance Use Topics Alcohol use: Never Drug use: Never INSTRUCTED TO TAKE HIGHLIGHTED MEDS DOS Prior to Admission medications as of 12/13/21 1251 Medication Sig Last Dose Taking sodium chloride 0.9 %, flush, (BD POSIFLUSH) syringe Inject 2-10 mL intravenously as directed. For Echo procedure lisinopril (ZESTRIL, PRINIVIL) 10 mg tablet Take 10 mg by mouth once daily. magnesium oxide 200 mg magnesium tab Take 200 mg by mouth once daily. ascorbic acid, vitamin C, 500 mg cap Take 500 mg by mouth once daily. calcium carbonate (CALTRATE) 600 mg calcium (1,500 mg) tab Take 600 mg by mouth once daily. Zinc Acetate, Oral, 25 mg (zinc) cap Take 25 mg by mouth once daily. No medication comments found. ALLERGIES No Known Allergies Objective Pain Assessment: Vitals: There were no vitals taken for this visit. Diagnostic tests reviewed for today's visit: Lab Value Units Date High Low HB 11.3 g/dL 12/13/2021 15.5 11.5 HCT 36.0 % 12/13/2021 46.0 36.0 WBC 30.79 k/uL 12/13/2021 11.00 3.70 PLT 215 k/uL 12/13/2021 400 150 NA 138 mmol/L 12/13/2021 144 136 K 4.9 mmol/L 12/13/2021 5.1 3.7 GLUC 92 mg/dL 12/13/2021 99 74 BUN 31 mg/dL 12/13/2021 21 7 CREAT 1.38 mg/dL 12/13/2021 0.96 0.58 CREAT 1.10 mg/dL 11/03/2021 1.4 0.7 PTSEC 10.3 sec 12/13/2021 13.0 9.7 INR 1.0 no uni* 12/13/2021 1.3 0.9 APTT No results within date range. ALT 13 U/L 12/13/2021 38 7 AST 23 U/L 12/13/2021 35 13 TBILI 0.8 mg/dL 12/13/2021 1.3 0.2 TSH No results within date range. Lab Value Units Date High Low HCGQT No results within date range. UHCG No results within date range. HCG, BODY* No results within date range. Lab Value Units Date High Low ABORHD No results within date range. ABSCREEN No results within date range. No results found for: HBA1C Recent Results (from the past 8760 hour(s)) ECG COMPLETE Collection Time: 12/13/21 11:18 AM Impression SINUS BRADYCARDIA NONSPECIFIC ST ABNORMALITY ABNORMAL ECG XR CHEST 2V FRONTAL/LAT Collection Time: 11/03/21 12:08 PM Impression IMPRESSION: See Result. Dental Equipment Installer And Servicer: PSCB Transcribe Date/Time: Nov 03 2021 3:07P Dictated by : NED BRIGHT MD This examination was interpreted and the report reviewed and electronically signed by: NED BRIGHT MD on Nov 03 2021 3:07PM EST Assessment No problem-specific Assessment & Plan notes found for this encounter. ANESTHESIA FINDINGS: Intubation History: No history of difficult intubation Significant Anesthesia Considerations: none Airway History: No history of difficult airway Prepared for Surgery: optimally prepared for surgery. The Following Tests/Procedures Have Been Initiated: No orders of the defined types were placed in this encounter. ASA Class: 4 Planned Anesthetic: MAC I - PHYSICAL EVALUATION AIRWAYTracheostomy tube not present Mallampati: I. TM distance: >3 FB. Neck ROM: full ROM without neurological symptoms. Mouth opening: adequate. Short neck: no. Thick neck: no DENTAL Dentures, upper: partial. Dentures, lower: partial. II - ANESTHESIA PLAN ASA Score: 4 Anesthetic Plan: MAC Informed Consent Anesthetic risks, benefits, alternatives, personnel and consent discussed: yes. Patient / Responsible Alliance Party agrees to proceed: yes Patient / Surrogate agrees to blood products: Yes Instructions Given to Patient: Instructions located in the after visit summary. Patient given verbal and written preop instructions and voices comprehension and compliance. Signature: Ned Iglesias MD Patient Name: Ashley Alcantar Date: December 13, 2021 Time: 2:01 PM Pager/Contact #: documented in this encounterCleveland Clinic [facility]09-14-2022 History of Present illness Narrative* Janneth Stover ADELA PeresN.SENIOR CIVIL ENGINEER - 12/13/2021 1:00 PM EDT Images from the original note were not included. [facility] [place] [facility] of Cardi[facility] Medicine SECTION OF INTERVENTIONAL CARDIOLOGY OUTPATIENT VISIT DATE December 13, 2021 OUTPATIENT VISIT TYPE ESTABLISHED FOLLOW UP Primary Griddle Attendant: Dr. Roth Chief Complaint: Patient here for cardiac follow up evaluation History of Present Illness: Patient is a 81 year old female who presents for follow up visit today. She was last seen by Dr. Roth on 11/03/2021 and myself on 11/06/2021. Since last vist the patient has not had any emergency room visits or hospitalizations. She noticed a little post-nasal drip this past week. She also states that she was exposed to COVIDon Saturday. Denies: chest pain, orthopnea, PND, lightheadedness, syncope, and leg swelling CARDIOVASCULAR MEDICINE TESTING: Electrocardiogram: SB Vent. rate 52 BPM LA interval 176 ms QRS duration 84 ms QT/QTc 442/411 ms P-R-T axes 58 9 23 Chest X-ray: completed, report pending at time of visit. Image reviewed. Laboratory Testing: Component Latest Ref Rng & Units 12/13/2021 Protein, Total 6.3 - 8.0 g/dL 6.9 Albumin 3.9 - 4.9 g/dL 4.3 Calcium 8.5 - 10.2 mg/dL 9.0 Bilirubin, Total 0.2 - 1.3 mg/dL 0.8 Alkaline Phosphatase 34 - 123 U/L 77 AST 13 - 35 U/L 23 ALT 7 - 38 U/L 13 Glucose 74 - 99 mg/dL 92 BUN 7 - 21 mg/dL 31 (H) Creatinine 0.58 - 0.96 mg/dL 1.38 (H) Sodium 136 - 144 mmol/L 138 Potassium 3.7 - 5.1 mmol/L 4.9 Chloride 97 - 105 mmol/L 108 (H) CO2 22 - 30 mmol/L 21 (L) Anion Gap 9 - 18 mmol/L 9 eGFR >=60 mL/min/1.73m 38 (L) WBC 3.70 - 11.00 k/uL 30.79 (H) RBC 3.90 - 5.20 m/uL 3.89 (L) Hemoglobin 11.5 - 15.5 g/dL 11.3 (L) Hematocrit 36.0 - 46.0 % 36.0 MCV 80.0 - 100.0 fL 92.5 MCH 26.0 - 34.0 pg 29.0 MCHC 30.5 - 36.0 g/dL 31.4 RDW-CV 11.5 - 15.0 % 13.2 Platelet Count 150 - 400 k/uL 215 MPV 9.0 - 12.7 fL 10.3 PT Sec 9.7 - 13.0 sec 10.3 PT INR 0.9 - 1.3 1.0 NT Pro BNP <450 pg/mL 324 CTA 11/03/2021: There is limited excursion of the valve cusps. The aortic annulus measures 2.5 x 2.0 cm; cross-sectional area = 3.7 cm2; circumference = 7.0 cm. The thoracic aorta is normal in course, caliber, and contour. The pelvic arteries, including the common femoral arteries are also normal in course, caliber, and contour. The minimal luminal caliber throughout = 6-7 mm. ECHO 11/03/2021: - The left ventricle is normal in size. Left ventricular systolic function is normal. EF = 68 5% (2D biplane) Grade I left ventricular diastolic dysfunction. - The right ventricle is normal in size. Right ventricular systolic function is normal. Estimated right ventricular systolic pressure is 28 mmHg consistent with normal pulmonary artery pressures. MITRAL VALVE There is mild (1+ - 2+) early systolic mitral valve regurgitation. There is mild thickening. The pressure half time is 72 msec. The peak mitral E/A ratio is 0.70. The average mitral E/e' ratio is 9.0. The mitral flow deceleration time is 250 msec. TRICUSPID VALVE The tricuspid valve leaflets are structurally normal. There is mild (1+ - 2+) tricuspid valve regurgitation. AORTIC VALVE There is moderately severe aortic valve stenosis caused by calcified valve and restricted opening. There is moderately severe (3+) aortic valve regurgitation. Tricuspid aortic valve. There is moderate thickening. There is moderate calcification. The peak gradient is 73 mmHg (peak velocity = 426.8 cm/s). The mean gradient is 40 mmHg. The LVOT mean velocity is 71.8 cm/s. The LVOT diameter is 2.1 cm. The aortic VTI is 117.9 cm. The mean velocity in the aortic valve is 299.4 cm/s. The dimensionlessvalve index is 0.21. AV area is 0.91 cm (0.62 cm /m ) by continuity, Vmax. The LVOT stroke volume index is 60 ml/m . REVIEW OF SYSTEMS: HEENT: Denies recent severe headaches, visual changes, difficulty swallowing. + glasses GASTROINTESTINAL: Denies melena, hematochezia, heartburn. + diarrhea off/on lately GENITOURINARY: Denies hematuria. MUSCULOSKELETAL: Denies claudication or muscle myalgias. NEUROLOGIC: Denies unilateral paralysis, slurred speech. SKIN: Denies skin ulcers or lesions. HEMATOLOGICAL: Denies gingival bleeding, or prolonged epistaxis. ENDOCRINE:Denies heat or cold intolerance, excessive thirst or urination. All Other Remaining ROS negative. PHYSICAL EXAM: BP 119/53 Pulse (!) 52 Ht 146.5 cm (4' 9.68) Wt 52.2 kg (115 lb) SpO2 100% BMI 24.30 kg/m General: Normal exam Neck : Neck veins are not distended Cardiac: Rhythm: regular rate and rhythm, Rate: normal, Murmur 1:2/6, systolic, low pitched, LSB, ,S1: normal intensity, S2: normal intensity Chest: Chest clear to percussion and auscultation Abdomen: Normal, Bowel Sounds: Present Extremities: normal exam of the extremities, no edema present Pulses: posterior tibial pulses present both; right radial pulse +2 Skin: No clubbing, no cyanosis. Neuro: Oriented to person, place and time, alert, cooperative, gait coordinated. HISTORY Ashley Alcantar is an 81 year old female with pmhx of: HTN CLL (stable, no therapy) Anemia (h/h- 12.2/37.8)- 08/03/2021 Tooth extraction- 11/01/2021 on azithromyocin ASSESSMENT: Ashley Alcantar has severe, aortic valve stenosis with symptoms of shortness of breath on exertion, noticed after climbing the stairs. NYHA FC II/III. CLL- stable, no medical therapy at this time. WBC are elevated but stable. IMPRESSION/PLAN: Ashley Alcantar is scheduled for TF-TAVR on 12/[address] Roth. She is scheduled for PORTICO valve and I did review the valve model with her and her daughter. Instructed to go to Desk J1-1 TODAY. Report to Desk J1-2 at 7:30 AM on 12/14. Nothing to eat or drink after midnight starting on Saturday Okay for to take the following medications with sips of water in AM: NO MEDICATIONS Hibiclens and Listerine provided. Explained to patient the need to use the Hibiclens soap and Listerine mouth wash the night before and morning of the procedure. Beta Simran: N/A Dental clearance: completed PPM: No Anticoagulation: No Contrast Allergy: No Coronavirus Testin12/13/2021 I explained to her/her daughter that if her test comes back positive, her procedure will be canceled and we will need to reschedule. KCCQ-12: 11/06 15 Ft W: 11/06 I spent a total of 35- minutes on the date of the service which included preparing to see the patient, [id number] patient care, completing clinical documentation, performing a medically appropriateexamination, and counseling and educating the patient/family/caregiver. Janneth Peres APRN.CNS documented in this encounterC[facility] Instructions* Patient Instructions* Janneth Peres APRN.CNS - 12/13/2021 12:27 PM EDT Instructed to go to Desk J1-1 TODAY. Report to Desk J1-2 at 7:30 AM on 12/14. Nothing to eat or drink after midnight starting on Saturday Okay for to take the following medications with sips of water in AM: NO MEDICATIONS Hibiclens and Listerine provided. Explained to patient the need to use the Hibiclens soap and Listerine mouth wash the night before and morning of the procedure. Janneth Peres APRN.CNS documented in this encounterC[facility] History of Present illness Narrative* Mindi Ratliff APRN.CNP - 12/01/2021 2:57 PM EDT I spoke with Ashley Alcantar on the phone. Will proceed with the following: No fasting is needed on pre-op day. Stop taking anticoagulation: No Dental clearance: Completed and scanned in [employer] Device check: No Contrast allergy: No Hello. Please schedule Ashley Alcantar, [phone] for COMMERCIAL TF-TAVR Evolut vs Portico Procedure on: 12/14/2021 Lab/CXR/EKG Appointment: 12/13/2021 Please schedule Structural Valve Clinic Visit on: 12/13/2021 Date of J4-1 Anesthesia only: 12/13/[address] Structural lab schedule on: 12/14/2021 at 7:30 CPT Code: 10967 Diagnosis Code: I35.9 DIESEL POWERPLANT MECHANIC: Dr. Roth Performing Physician: Dr. Roth OR: 80 1st Surgeon: Dr. Serna Please schedule bed reservation for post procedure-(should be a TCI) DICK schedule- intra/op Patient also needs INSURANCE PRECERTIFICATION ADL SCORE 6 SURVIVAL RATE GREATER THAN 1 YEAR Y (LOOKING FOR A YES) STS PROM EF Y (GREATER THAN 50%) Thank you! Request sent to scheduling. Mindi Ratliff APRN.CNP documented in this encounterC[facility] Evaluation note* Diagnosis Onset Date Resolution Status Carotid artery stenosis acut e Essential hypertension acute S/P TAVR (transcatheter aortic valve replacement) Nov acute CLL (chronic lymphocytic leukemia) chronic Cardiac dysrhythmia, unspecified acute Carotid artery stenosis acut e Essential hypertension acute S/P TAVR (transcatheter aortic valve replacement) Nov acute CLL (chronic lymphocytic leukemia) chronic Acute sinusitis acute Cystitis acute [facility] Work Phone: 1(639) 834-644609-01-2022 Evaluation note* Diagnosis Onset Date Resolution Status Carotid artery stenosis acut e Essential hypertension acute 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, acute CLL (chronic lymphocytic leukemia) chronic Cardiac dysrhythmia, unspecified acute Carotid artery stenosis acut e Essential hypertension acute 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, acute CLL (chronic lymphocytic leukemia) chronic Acute sinusitis acute Cystitis acute UTI (urinary tract infection) acute Right inguinal hernia acute Abdominal pain acute Change in bowel habit acute Hernia noneactive [facility] Work Phone: 1(319) 101-679209-01-2022 Evaluation note* Diagnosis Onset Date Resolution Status Cardiac dysrhythmia, unspecified acute Carotid artery stenosis acut e Essential hypertension acute 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, acute CLL (chronic lymphocytic leukemia) chronic Acute sinusitis acute Cystitis acute UTI (urinary tract infection) acute Right inguinal hernia acute Abdominal pain acute Change in bowel habit acute Hernia noneactive [facility] Work Phone: 1([phone]) 941-253909-01-2022 Evaluation note* Diagnosis Onset Date Resolution Status Cardiac dysrhythmia, unspecified acute Carotid artery stenosis acut e Essential hypertension acute 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, acute CLL (chronic lymphocytic leukemia) chronic Acute sinusitis acute Cystitis acute UTI (urinary tract infection) acute Right inguinal hernia acute Abdominal pain acute Change in bowel habit acute Hernia noneactive Peritonitis acute [facility] Work Phone: [phone]) 343-413309-01-2022 Evaluation note* Diagnosis Onset Date Resolution Status Cardiac dysrhythmia, unspecified acute Carotid artery stenosis acut e Essential hypertension acute 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, acute CLL (chronic lymphocytic leukemia) chronic Acute sinusitis acute Cystitis acute UTI (urinary tract infection) acute Right inguinal hernia acute Abdominal pain acute Change in bowel habit acute Hernia noneactive Ascites acute Peritonitis acute CLL (chronic lymphocytic leukemia) [facility] Work Phone: [phone]) 925-640109-01-2022 Evaluation note* Diagnosis Onset Date Resolution Status Essential hypertension acute History of transcatheter aor tic valve replacement (TAVR) November, acute Hypothyroidism acute Uterine cancer acute CLL (chronic lymphocytic leukemia) [facility] Work Phone: [phone]) 155-445309-01-2022 Evaluation note* Diagnosis Onset Date Resolution Status History of transcatheter aor tic valve replacement (TAVR) November, acute Hypothyroidism acute Need for influenza vaccination acute URI (upper respiratory infection) acute Uterine cancer acute CLL (chronic lymphocytic leukemia) [facility] [place] Work Phone: 1([phone]) 668-324209-01-2022 Evaluation note* Diagnosis Onset Date Resolution Status Pruritic condition acute Contact dermatitis acute Essential hypertension acute History of transcatheter aor tic valve replacement (TAVR) November, acute Hypothyroidism acute Uterine cancer acute CKD (chronic kidney disease) [facility] Work Phone: 1([phone]) 167-307908-22-2022 History of Present illness Narrative* Nani Burns - 11/20/2021 11:51 AM EDT Incidental Lung Nodule Enrollment Call attempt: 1st Attempt Call status: Complete Enrolled in Lung Nodule program: No Declined reason: Finding reviewed deemed low risk. No further work up recommended at this time. Letter/brochure notifying patient sent to patient s home mailing address. Lung Nodule Program Location: [place] documented in this encounterC[facility]08-[facility] History of Present illness Narrative* Eliza De Guzman APRN.CNP - 11/13/2021 9:57 AM EDT Incidental Lung Nodule Enrollment Call attempt: 1st Attempt Call status: Complete Enrolled in Lung Nodule program: Referred Lung Nodule outreach: No outreach - Very small nodule, letter and brochure sent Lung Nodule Program Location: [place] Letter sent to patient regarding incidental lung nodule(s). Eliza De Guzman APRN.CNP November 13, 2021 9:57 AM documented in this encounterC[facility]08-08-[facility]22 Instructions* Patient Instructions* Janneth Peres APRN.CNS - 11/06/2021 11:17 AM EDT Your case will be discussed with the valve team on SaturdayNovember 13. You will be contacted in about 2-3 weeks after the meeting to discuss the recommendations. If you have not heard from our officeafter that time, please feel free to contact Dr. Roth's office: [phone]. Reminder: Please obtain dental clearance phuong. Have the completed form faxed to our office. Keep the hard copy with you and bring it to your next appointment. We discussed pre-op planning which includes the need to come 1-2 days prior to surgery to have the following: An updated H&P with a provider in our office; pre-surgical labs/testing and to meet with anesthesia. The duration of the procedure is about 2 hours. Hospital stay following TF-TAVR is generally 1 day.Some patients may even be discharged the same day. Discharge time around 10:00 AM. Activity restriction is no heavy lifting of more than 10 pounds for 1 week following TAVR and no extensive walking. Also, post procedure no driving for up to 1-2 weeks. Follow-up after TAVR will be determined at the time of discharge. Janneth Peres APRN.CNS documented in this encounterC[facility]08-[facility] History of Present illness Narrative* Janneth Peres APRN.CNS - 11/06/2021 11:04 AM EDT Images from the original note were not included. [facility] [place] [facility] Department of Cardiovascular Medicine SECTION OF INTERVENTIONAL CARDIOLOGY OUTPATIENT VISIT DATE November 06, 2021 OUTPATIENT VISIT TYPE ESTABLISHED FOLLOW UP Primary Griddle Attendant: Dr. Roth Chief Complaint: Patient here for cardiac follow up evaluation History of Present Illness: Patient is a 81 year old female who presents for follow up visit today to discuss the evaluation process for aortic valve disease and treatment options which include TAVR. Ashley Alcatnar was last seen by Dr. Roth on 11/03/2021. She is here today with her daughter. She lives alone and is independent with ADL's. She remains quite active. Since last vist the patient has not had any change. Her was found on a pre-op exam for cataract surgery. She is not aware of any symptoms. She will sometimes notice a small ring around her ankle at the end of the day. Denies: chest pain, shortness of breath, PND, lightheadedness, and syncope CARDIOVASCULAR MEDICINE TESTING: CTA 11/03/2021: There is limited excursion of the valve cusps. The aortic annulus measures 2.5 x 2.0 cm; cross-sectional area = 3.7 cm2; circumference = 7.0 cm. The thoracic aorta is normal in course, caliber, and contour. The pelvic arteries, including the common femoral arteries are also normal in course, caliber, and contour. The minimal luminal caliber throughout = 6-7 mm. ECHO 11/03/2021: - The left ventricle is normal in size. Left ventricular systolic function is normal. EF = 68 5% (2D biplane) Grade I left ventricular diastolic dysfunction. - The right ventricle is normal in size. Right ventricular systolic function is normal. Estimated right ventricular systolic pressure is 28 mmHg consistent with normal pulmonary artery pressures. MITRAL VALVE There is mild (1+ - 2+) early systolic mitral valve regurgitation. There is mild thickening. The pressure half time is 72 msec. The peak mitral E/A ratio is 0.70. The average mitral E/e' ratio is 9.0. The mitral flow deceleration time is 250 msec. TRICUSPID VALVE The tricuspid valve leaflets are structurally normal. There is mild (1+ - 2+) tricuspid valve regurgitation. AORTIC VALVE There is moderately severe aortic valve stenosis caused by calcified valve and restricted opening. There is moderately severe (3+) aortic valve regurgitation. Tricuspid aortic valve. There is moderate thickening. There is moderate calcification. The peak gradient is 73 mmHg (peak velocity = 426.8 cm/s). The mean gradient is 40 mmHg. The LVOT mean velocity is 71.8 cm/s. The LVOT diameter is 2.1 cm. The aortic VTI is 117.9 cm. The mean velocity in the aortic valve is 299.4 cm/s. The dimensionlessvalve index is 0.21. AV area is 0.91 cm (0.62 cm /m ) by continuity, Vmax. The LVOT stroke volume index is 60 ml/m . [place] CARDIOMYOPATHY QUESTIONNAIRE (KCCQ-12) Activity: A. Showering/bathing: Extremely limited Quite a bit limited Moderately limited Slightly limited Not at all limited Limited for other reasons or did not do the activity B. Walking 1 block on level ground: Extremely limited Quite a bit limited Moderately limited Slightly limited Not at all limited Limited for other reasons or did not do the activity C.Hurrying or jogging (as if to catch a bus): Extremely limited Quite a bit limited Moderately limited Slightly limited Not at all limited Limited for other reasons or did not do the activity 2. Over the past 2 weeks, how many times did you have swelling in your feet, ankles or legs when you woke up in the morning? Every morning 3 or more times per week but not every day 1-2 times per week less than once a week never over the past 2 weeks 3. Over the past 2 weeks, on average, how many times did you has fatigue limited your ability to dowhat you wanted? All of the time Several times per day At least once per day 3 or more times per week but not every day 1-2 times per week less than once a week never over the past 2 weeks 4. Over the past 2 weeks, on average, how many times has shortness of breath limited your ability to do what you wanted? All of the time Several times per day At least once per day 3 or more times per week but not every day 1-2 times per week less than once a week never over the past 2 weeks 5. Over the past 2 weeks, on average, how many times have your been forced to sleep sitting up in achair or with at least 3 pillows to prop you up because of shortness of breath? Every night 3 or more times per week but not every day 1-2 times per week less than once a week never over the past 2 weeks 6. Over the past 2 weeks, how much has your heart failure limited your enjoyment of life? It has extremely limited my enjoyment of life it has limited my enjoyment of life quite a bit it has moderately limited my enjoyment of life It has slightly limited my enjoyment of life It has not limited my enjoyment of life at all 7. If you had to spend the rest of your life with your heart failure the way it is right now, how would you feel about this? Not at all satisfied Mostly dissatisfied Somewhat satisfied Mostly satisfied Completely satisfied 8. How much does your heart failure affect your lifestyle? Please indicated how your heart failure may have limited your participation in the following activities over the past 2 weeks? A. Hobbies, recreational activities Severely limited Limited quite a bit Moderately limited Slightly limited Did not limit at all Does not apply or did not do for other reasons. B. 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 C. Visiting family or friends out of your home Severely limited Limited quite a bit Moderately limited Slightly limited Did not limit at all Does not apply or did not do for other reasons. 15 - Foot Walk: 5.84 seconds Cutoff off time to walk 15 feet criterion for frailty: Men Women Height < 173 cm > 7 seconds Height < 159 cm > 7 seconds Height > 173 cm > 6 seconds Height > 159 cm > 6 seconds HISTORY Ashley Alcantar is an 81 year old female with pmhx of: HTN CLL (stable, no therapy) Anemia (h/h- 12.2/37.8)- 08/03/2021 Tooth extraction- 11/01/2021 on azithromyocin ASSESSMENT: Ashley Alcantar has aortic valve stenosis without symptoms. Her was found on physical exam prior tocataract surgery. NYHA FC I/II. IMPRESSION/PLAN: I have spoken with Ashley Alcantar regarding the evaluation process for TAVR. I explained to Ashley Alcantar that this is a surgical evaluation to determine the best treatment plan for aortic valve stenosis. I reviewed the commercially available [employer] Lifesciences valve and Medtronic valve, including the valve model. I showed the animation of the TF procedure while explaining the procedure. I also reviewed the Sentinnel device. I also discussed possible complications which include: possible stroke,possible pacemaker and/or bleeding. We also discussed the use of daily Aspirin post TAVR. SDM: A formal shared decision making discussion was conducted with the patient during which the benefitsand risks of the TAVR procedure were discussed along with consideration of the patient s values, preferences and wishes. We discussed pre-op planning which includes the need to come 1-2 days prior to surgery to have the following: An updated H&P with a provider in our office; pre-surgical labs/testing and meet with anesthesia. The duration of the procedure will last about 2 hours. Hospital stay following TF-TAVR is generally1 day. Some patients may even be discharged the same day. Discharge time around 10:00 AM. Activity restriction is no heavy lifting of more than 10 pounds for 1 week following TAVR and no extensive walking. Also, post procedure no driving for up to 1-2 weeks. Follow-up after TAVR will be determined at the time of discharge. Dental clearance discussed. She had a tooth extraction last week. The dentist has not yet completedthe paperwork, but will be completed once she has a follow- up visit. Does patient have a Nickel allergy? No I have reviewed the following test results: CTA, ECHO,cardiac cath and carotid ultrasound. There also also other alternative access options that may be discussed and recommended depending onyour clinical condition. Hospital stay following an alternative access, such as subclavian TAVR or YOKO-TAVR , will vary upon the approach. I have discussed with Ashley Alcantar that once all of the testing has been completed, the results will be reviewed by the HR AVR team and He will be notified of the recommendations. If you are approvedfor TAVR, you may received a letter in the mail from the TAVR team to inform you of this recommendation. Phone notification following the team meeting could take up to 2-3 weeks. Scheduling of the TAVR procedure could take up to 6-8 weeks from the time of the team recommendations. We also discussed signs and symptoms of increased shortness of breath and peripheral edema should be reported to the local physician right away and be treated accordingly, If hospitalization is required, then it should be done. We can be notified with this information and all efforts will be made to expedite procedure accordingly. I spent a total of 35- minutes on the date of the service which included preparing to see the patient, [id number] patient care, completing clinical documentation, and counseling and educating the patient/family/caregiver. Janneth Peres APRN.DEANA documented in this encounterC[facility]08-[facility] History of Present illness Narrative* Monica Smith, AUTOCLAVE OPERATOR - 11/06/2021 10:52 AM EDT PULM FUNCTION SMARTBLOCK: Provider: Swapnil Serna MD Spirometry: 1 DLCO: 1 documented in this encounterC[facility] Clinic [facility]08-08-[facility] History of Present illness Narrative* Swapnil Serna MD - 11/06/2021 10:29 AM EDT Images from the original note were not included. [facility] [place] DEPARTMENT OF CARDIAC SURGERY OUTPATIENT VISIT DATE November 06, 2021 OUTPATIENT VISIT SERVICE DATE: 11/06/2021 SERVICE TIME: 10:32 AM PCP: Vern Bernardo [address] [place] [address] Referring Physician: SELF Patient Type: New Visit to Determine Surgery: Yes HPI: Ms. Ashley Alcantar is a 81 year old female seen regarding candidacy for cardiac surgery. She is currently symptomatic and complains of dyspnea on exertion. She has noticed dyspnea with stairs since approximately May 2021. This is inconsistent and not always a problem for her. She us functioning at an NYHA 2 level. She denies angina, syncope, PND, orthopnea, claudication, or edema. Her PCP heard a murmur, and further investigation revealed severe . Her case was initially reviewed by my colleague Dr. Freire, who referred her for a TAVR assessment. PAST MEDICAL HISTORY Diagnosis Date Anemia Aortic stenosis CLL (chronic lymphocytic leukemia) (HCC) Essential hypertension Ex-smoker Review Of Systems Skin: negative Eyes: cataracts removed recently Ears/Nose/Throat: negative Respiratory: No cough, hemoptysis, asthma, recent chest infection, wheezing Cardiovascular: See HPI Gastrointestinal: diarrhea Genitourinary: No burning with urination, blood in urine or incontinence and No change in vaginal discharge, burning, dryness or itching Musculoskeletal: complains her fingers occasionally lock Neurologic: No history of headaches, syncope, paralysis, seizures or tremors INVESTIGATIONS: Angiogram (OSH): Codominant without obstructive CAD Echo: LVEF 68% Mild MR / TR 3+ AI : MG 40, THALIA 0.91 Carotids (OSH): <50% ICA stenosis bilaterally CT: Tricuspid AV Aortic root geometry notable for somewhat shallow sinuses Coronary heights adequate Femoral access adquate PFTs: Pending Impression: Aortic Stenosis Plan: TAVR MDT meeting discussion Based on my evaluation she is an intermediate risk for cardiac surgery. These findings will be communicated back to the requesting physician via electronic medical record Swapnil Serna MD documented in this encounterC[facility] History of Present illness Narrative* RT Lilly(R) - 11/03/2021 12:15 PM EDT Radiology Service Progress Note PATIENT NAME: Ashley Alcantar DATE OF SERVICE: November 03, 2021 TIME: 12:09 PM PATIENT IDENTITY VERIFICATION COMPLETED USING TWO (2) IDENTIFIERS: Name and Date of confirmedby patient verbally. FALL SCREENING: Has the patient had 2 falls in the last year or 1 fall with injury or currently using an Ambulatory Assistive Device (Walker, Cane, Wheelchair, Crutches, etc.)? No PATIENT GENDER DATA: Female. status: : No status: NO. PATIENT RELEVANT IMPLANT DATA REVIEWED: Not Applicable RADIOLOGY DEPARTMENT: General X-ray: Exam(s) Completed: Chest X-Ray PERIPHERAL IV DATA: Not applicable SIGNED BY: RT Lilly(Zita) November 03, 2021 12:09 PM documented in this encounterCleveland Clinic [facility] History of Present illness Narrative* RT Antwon(R) - 11/03/2021 10:30 AM EDT Radiology Service Progress Note PATIENT NAME: Ashley Alcantar DATE OF SERVICE: November 03, 2021 TIME: 11:11 AM PATIENT IDENTITY VERIFICATION COMPLETED USING TWO (2) IDENTIFIERS: Name and Date of confirmedby patient verbally and Name and Date of confirmed by identification band. FALL SCREENING: Has the patient had 2 falls in the last year or 1 fall with injury or currently using an Ambulatory Assistive Device (Walker, Cane, Wheelchair, Crutches, etc.)? No PATIENT GENDER DATA: Female. status: : No status: NO. PATIENT RELEVANT IMPLANT DATA REVIEWED: Yes RADIOLOGY DEPARTMENT: CT; Exam(s) Completed: Cardiac PERIPHERAL IV DATA: Site assessment: Clean,Dry and Intact, Site disposition Discontinued SIGNED BY: RT Antwon(R) November 03, 2021 11:11 AM * Cynthia King RN - 11/03/2021 10:30 AM EDT Radiology Service Progress Note DATE OF SERVICE: November 03, 2021 TIME: 10:57 AM PATIENT WEIGHT: 116LBS PATIENT IDENTITY VERIFICATION COMPLETED USING TWO (2) STANDARD IDENTIFIERS: Name and Date of confirmed by patient verbally and Name and Date of confirmed by identification band. FALL SCREENING: Has the patient had 2 falls in the last year or 1 fall with injury or currently using an Ambulatory Assistive Device (Walker, Cane, Wheelchair, Crutches, etc.)? No PATIENT GENDER DATA: Female. status: : No status: NO. ALLERGIES: Reviewed and unchanged CONTRAST ALLERGY: No EXAM: CT -CONTRAST INDUCED NEPHROPATHY RISK FACTORS: Patient age > 60 years CREATININE: Creatinine Date Value Ref Range Status 08/03/2021 1.42 (H) 0.58 - 0.96 mg/dL Final Creatinine (POCT) Date Value Ref Range Status 11/03/2021 1.10 0.7 - 1.4 mg/dL Final eGFR (POCT) Date Value Ref Range Status 11/03/2021 50 mL/min/1.73 m2 Final P.O.C.T. RESULTS: POC done: Yes, See Lab Tab November 03, 2021 TREATMENT: No Hydration needed. IV SITE: Ambulatory: A peripheral IV was started in the Left antecubital site with a Angio cath: 20gauge. and A Saline lock was inserted per protocol IV SITE APPEARANCE: Clean,Dry and Intact SIGNATURE: Cynthia King RN PATIENT NAME: Ashley Alcantar DATE: November 03, 2021 TIME: 10:57 AM documented in this encounterCleveland Clinic [facility] History of Present illness Narrative* Nir Roth MD - 11/03/2021 9:00 AM EDT Images from the original note were not included. [facility] [place] [facility] Department of Cardiovascular Medicine SECTION OF INTERVENTIONAL CARDIOLOGY OUTPATIENT VISIT DATE November 02, 2021 OUTPATIENT VISIT TYPE NEW PRIMARY CARE PHYSICIAN: Vern Bernardo [address] [place] [address] REFERRING PHYSICIAN: Janneth Peres [address] [facility] [id number] CHIEF COMPLAINT: Severe symptomatic aortic stenosis CLL - stable, under observation HISTORY OF PRESENT ILLNESS: Ms. Alcantar is a fairly fit, energetic and active 82 year old woman lives independently in [place]. She is very independent with her ADLs and only occasionally she may feel dyspneic after a flight of stairs. She has no chest pain or syncope. Presents for an opinion on the management of severe aortic stenosis that has been diligently picked up by her local physician. She has no major comorbidities other than CLL that was diagnosed recently but is stable and under observation, manifested by an elevated white cell count. She is due for further testing/evaluation today including an echocardiogram, and most importantly a4D CT angiogram to evaluate her MALCOLM anatomy. She had a coronary angiogram outside that showed mild mid LAD disease at most. Blood test showed creatinine 1.42, white cell count of 35, platelets of 243 and hemoglobin 12.3. NURSING INTAKE: PMHx HTN CLL (stable, no therapy) Anemia (h/h- 12.2/37.8)- 08/03/2021 Tooth extraction- 11/01/2021 on azithromyocin Risk factors for coronary artery disease hypertension, history of smoking, family history of CAD She denies chest pain, shortness of breath, orthopnea, PND, palpitations, syncope, claudication, leg swelling and cough. Diet / Nutrition: No special diet Weight: no change since last visit Exercise: No exercise. PCP heard a murmur patient was referred to cardiology. She underwent ECHO, Carotid and LHC see reports below. ECHO revealed severe , moderate AI. She reports some SOB with stairs. Had one episdoe dizziness in the middle of the night. She works at [employer] in the [employer] de[employer] about 20-25 hours per week. She does not report any symptoms with with ADLs. She takes lisinopril 10 mg daily for BP. [facility] 09/29/2021 (syngo) Carotid US 08/23/2021: ECHO 06/05/2021: GFR: 37 PAST MEDICAL HISTORY Diagnosis Date Anemia Aortic stenosis CLL (chronic lymphocytic leukemia) (HCC) Essential hypertension PAST SURGICAL HISTORY Procedure Laterality Date ANESTH, SECTION 11/19/1970 REMV CATARACT EXTRACAP,INSERT LENS Right 06/20/2021 REMV CATARACT EXTRACAP,INSERT LENS Left 07/11/2021 TONSILLECTOMY & ADENOIDECTOMY <AGE 11 age 28 TOOTH EXTRACTION 11/01/2021 SOCIAL HISTORY Social History Tobacco Use Smoking status: Former Smoker Packs/day: 0.50 Years: 25.00 Pack years: 12.50 Types: Cigarettes Quit date: 06/03/2014 Years since quittin.4 Smokeless tobacco: Never Used Vaping Use Vaping Use: Never used Substance Use Topics Alcohol use: Never Drug use: Never FAMILY HISTORY Problem Relation Age of Onset other (ALS) Mother other (CHF) Mother Emphysema Father Heart Sister Heart Attack Sister Tuberculosis Sister Tuberculosis Sister Diabetes Sister Diabetes Brother Diabetes Brother Diabetes Brother other (atrial fibrillation) Child ALLERGIES: ALLERGIES No Known Allergies MEDICATIONS: lisinopril (ZESTRIL, PRINIVIL) 10 mg tablet Take 10 mg by mouth once daily. azithromycin (ZITHROMAX) 250 mg tablet 250 mg once daily. magnesium oxide 200 mg magnesium tab Take 200 mg by mouth once daily. ascorbic acid, vitamin C, 500 mg cap Take 500 mg by mouth once daily. calcium carbonate (CALTRATE) 600 mg calcium (1,500 mg) tab Take 600 mg by mouth once daily. Zinc Acetate, Oral, 25 mg (zinc) cap Take 25 mg by mouth once daily. REVIEW OF SYSTEMS: GENERAL: no fever, no chills and no change in weight HEENT: no headaches, no hearing loss, no difficulty swallowing, no visual changes, no nose bleeds, dentures SKIN: no rashes, no lesions and no ulcers RESPIRATORY: no cough, no shortness of breath, no dyspnea on exertion, no orthopnea, no paroxysmal nocturnal dyspnea, no asthma and no COPD CARDIOVASCULAR: no chest pain, no syncope, no claudication and no edema GASTROINTESTINAL: no abdominal pain, no nausea, no vomiting, no difficulty or painful swallowing and no melanotic stools GENITOURINARY: no dysuria, no frequency and no nocturia MUSCULOSKELETAL: no joint pain, no joint swelling, no muscle pain or myalgias and no pain with walking NEUROLOGIC: no numbness, no tingling and no sensation of pins and needles HEMATOLOGY: no bruising easily, no prolonged bleeding, anemia and cancer ENDOCRINE: no cold or heat intolerance, no polyuria, no polydipsia, no goiter, no diabetes and no thyroid disease PSYCH: no sleep disturbance, no mood disorders and no recent psychosocial stressors PHYSICAL EXAMINATION: BP 150/59 Pulse 54 Ht 4' 9.677 (1.47m) Wt 116 lb (52.6kg) SpO2 100% BMI 24.52 kg/(m^2). General: Well appearing, in no acute distress, speaking in complete sentences. Skin: No clubbing, no cyanosis. Head/Eyes: Extra ocular movements intact Mouth: Teeth in good repair. Neck: No jugular venous distention, no carotid bruits, carotids have a normal upstroke, no palpablethyromegaly. Lungs: Clear to auscultation and no rales Heart: Regular rhythm, PMI not displaced, S1, S2 normal, no S3, no S4, no heaves, no rub and late peaking ESM PV Pulses:Pulses intact Abdomen: Soft, nontender, bowel sounds normal, no palpable organomegaly, no bruits. Extremities: No peripheral edema . Grade 2/4 distal pulses bilaterally. Edema Scale: No Musculoskeletal: Normal gait and ambulation Neuro: Oriented to time, place and person CARDIOVASCULAR MEDICINE TESTING: No Cardiovascular testing perfomed today. I have personally reviewed the Cardiac Catheterization/Percutaneous Coronary Intervention (PCI). 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 She is in the midst of undergoing further imaging evaluation to determine her suitability for TF TAVR versus SAVR. PLAN AND RECOMMENDATIONS: She will continue with imaging evaluation and we will discuss her in upcoming aortic MDT. Nir Roth MD, PhD, FRACP Clinical Staff, Review Rn liquor grinding mill operator Director, [facility], [address] [facility] Department of Cardiovascular Medicine Heart [facility] [place] [facility] Desk [id number] [id number] Office This letter was dictated using a voice recognition program, please excuse any typos. I personally interviewed, confirmed and edited the above information as obtained by others. CONTACT INFORMATION: documented in this encounterCleveland Clinic [facility]07-13-2022 History of Present illness Narrative* Janneth Peres APRN.SENIOR CIVIL ENGINEER - 10/11/2021 3:19 PM EDT Images from the original note were not included. TAVR STRUCTURAL REVIEW FORM Records Reviewed: 10/11/[address] Freire on 10/06/2021 Appt request sent: 10/11/2021 Records in [facility] have been reviewed. Severe . Request has been sent to the stenographer secretary who will arrange an appointment schedule. A TAVR packet and schedule will be mailed to patient's home address in ~ 2-4 weeks. PLEASE NOTE: Appointment schedule being sent to the patient will be for CONSULTATION AND TESTING. All studies will be reviewed by the multidisciplinary valve team members and the TAVR procedure will be schedule at a later date. Scheduling Notes: 81 F ([place])- HTN, , CLL (stable, no therapy) [facility] 09/29/2021: Carotid US 08/23/2021: ECHO 06/05/2021: GFR: 37 Contrast Allergy: No Anticoagulation plan N/A DX: aortic valve disorder Referring physician: Dr. Freire DAY ONE: Dr. Harrison/Dr. Mcgee/Dr. Suarez/Dr. Cuevas/Dr. Draper/Dr. Thompson/Dr. Salmeron/ Dr. Leon/ Dr. Khoury/Dr. Roth (If a Saturday is needed, can schedule with Dr. Mcqueen or Dr. Canales). The following testing on same day as appointment with physician: EKG/CXR/Labs (CMP; CBC with diff, PT/INR, Pro-BNP, High Sensitivity Troponin) Echocardiogram CTA aorta DAY TWO: Nuclear Medicine- Amyloid SPECT Structural [facility] appointment PFT s (spirometry, diffusing capacity) Patient is also to be seen by Dr. Kumar/Dr. Araiza/Dr. Pride/Dr. Serna/Dr. Anne/Dr. Allen/Dr. Topete/Dr. Lopez (ONLY as 1st surgeon upon request) Janneth Peres APRN.SENIOR CIVIL ENGINEER documented in this encounterCleveland Clinic [facility]07-08-2022 Miscellaneous Notes* Telephone Encounter - Idalia Johnson - 10/06/2021 3:40 PM EDT Patient called back. Notified her of referral to TAVR team. She was agreeable. Idalia Johnson RN * Telephone Encounter - Idalia Johnson - 10/06/2021 2:04 PM EDT Patients referring provider sent records to Dr. Freire for review of patient for TAVR. Dr. Freire has reviewed the available records and is referring patient for TAVR. Contacted patient to discuss, unable to leave voicemail as mailbox was full. Will attempt again. Referral sent to TAVR team. Idalia Johnson RN documented in this encounterCleveland Clinic [facility]05-10-2022 Miscellaneous Notes* Telephone Encounter - Hayley Felix LPN - 08/08/2021 4:04 PM EDT Spoke with pt. , given information concerning results. Pt. Voiced understanding. Hayley Felix LPN documented in this encounterCleveland Clinic [facility]05-05-[facility] History of Present illness Narrative* Ruddy Patricio DO - 08/03/2021 3:13 PM EDT Patient referred by Dr. Bernardo for lymphocytosis. The impression and plan will be communicated byway of the shared electronic record or faxed under separate cover letter. HPI: The patient is an 81-year-old female has a past medical history significant for hypertension and aortic stenosis. She recently had a CBC on 06/05/2021 as part of work-up for cataract surgery. She was incidentally found to have a white count of 25,900. Hemoglobin was 11.7 g/dL and the platelet count was 229,000. Differential significant for an absolute lymphocyte count of 20,850. Flow cytometry in mid May identified 2 populations of CD5 positive, CD23 positive monoclonal B cells. 1 representing 98% was lambda light chain restricted and the other 2% was kappa light chain restricted. Chemistry panel revealed a normal total bilirubin, AST, ALT and alkaline phosphatase. Total protein, albumin and globulin levels were normal. Serum creatinine was 1.0 mg/dL. Serum calcium was 9.2 mg/dL. She has no complaints today. She is active. 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 She lives independently and is capable of all ADLs and IADLs. She has noticed some increase in shortness of breath over the last several weeks. She is scheduled to see a plastic die maker apprentice in August for the history of aortic stenosis. She has not had any unusual bleeding or unexplained bruising. PMH, medications and allergies personally reviewed by me today. Any changes documented in appropriate section. ROS: Constitutional: Denies episodes of fever and night sweats. Not significantly fatigued. Normal appetite. Neuro: Denies VELEZ, vertigo, dizziness and imbalance. Denies symptoms of neuropathy. HEENT: No recent change in voice, vision or hearing. Resp: Denies cough, wheeze and hemoptysis. Denies shortness of breath at rest. CVS: Denies exertional chest pain, PND, orthopnea and LE edema. GI: Denies dysgeusia. Denies symptoms of stomatitis. Denies dysphagia and odynophagia. Denies reflux, n/v, change in bowel habits and abdominal pain. : Denies dysuria or gross hematuria. No symptoms of bladder outlet obstruction. Endo: Denies hot flashes. Denies polyuria and polydipsia. Denies heat and cold intolerance. Musculoskeletal: Denies bone, back, joint and muscular pain. Derm: Denies rash. Denies jaundice and diffuse pruritis. Heme: Denies unusual bleeding and unexplained bruising. Psych: Normal mood. PHYSICAL EXAM: Vitals: Blood pressure 105/53, pulse 79, temperature 36.3 C (97.3 F), height 147 cm (4' 9.87), weight 53.3 kg (117 lb 8 oz), SpO2 98 %. Well-appearing and in no acute distress. EYES: Sclerae are anicteric bilaterally. LYMPHATIC: There is no palpable cervical, supraclavicular, axillary or inguinal adenopathy. RESPIRATORY: Inspiratory breath sounds are of normal intensity in all sweet. No rales, wheezes or rhonchi. CARDIOVASCULAR: Rhythm is regular. ABDOMEN: The abdomen is nondistended. No organomegaly. No tenderness. Extremities: No swelling or edema. SKIN: No jaundice or rash. No petechiae. ASSESSMENT/PLAN: (C91.10) CLL (chronic lymphocytic leukemia) (HCC) (primary encounter diagnosis) (D72.820) Lymphocytosis (D64.9) Anemia, unspecified type Assessment: -The patient is an 81-year-old female who was recently incidentally diagnosed with CLL when establishing medical care for need for cataract surgery. She was also diagnosed with aortic stenosis. -I reviewed the results of her outside CBC with her and her daughter in detail. I discussed the natural history, treated course, and prognosis of Ford stage 0 CLL. Also discussed general indications for treatment. She had mild anemia on the CBC from May. Unknown if this is worse at this time. Thiswill require further work-up. Plan: -Repeat CBC and flow cytometry. -Check hematinics. -We will contact her with the results of the above when completed. -Otherwise if hemoglobin stable then recheck in 3 months. I spent a total of 60 minutes on the date of the service which included preparing to see the patient, [id number] patient care, completing clinical documentation, obtaining and/or reviewing separately obtained history, performing a medically appropriate examination, counseling and educating the pat ient/family/caregiver, ordering medications, tests, or procedures and communicating results to the patient/family/caregiver. Ruddy Patricio DO documented in this encounterMetroHealth [facility] note Author Dr. Rdz [facility] April 30, 2022 2:41pm Note Date/Time April 30, 2022 2 :39pm [facility] Medical Records Department [address] [place] [address] Consultation - Infectious Dx 04/30/22 1437 MR#: [id number] Acct: [id number] Name: ASHLEY ALCANTAR Rep #:[id number] : 1940 81 From: Vince blanco MD PCP: Dr. Vern Bernardo MD Status:ADM IN [place] [id number] Assessment & Plan Assessment/Plan (1) CLL (chronic lymphocytic leukemia): (2) Ascites: PLAN: Mildly elevated peritoneal wbc count, suspect this is due to her high wbc from her CLL. Reviewed [facility] records. Fluid cx remains neg. Ok for d/c home offof abx. Will follow as needed, thank you, d/w Dr. Das HPI Consult Data Date of Consult: 04/30/22 HPI Narrative Reason for Consultation: abnormal peritoneal fluid HPI Narrative: ASHLEY ALCANTAR, is a 81 F with h/o CLL, presented due to abnormal paracentesis results. Reports about a month of progressive abd pain, distension. CT showed ascities, had tap done 04/27/22. Told to go to ED for iv abx. No fever. Abd fluid slowly returning. Full ROS performed and neg except as noted above. [facility] Medical History Anxiety Aortic regurgitation Aortic stenosis CKD (chronic kidney disease) Contact with and (suspected) exposure to other viral communicable diseases Diarrhea History of right and left heart catheterization (LHC) (~09/29/21) Incontinence Limb weakness Mixed hyperlipidemia Nonrheumatic aortic (valve) stenosis with insufficiency Shoulder pain Urinary tract infection with hematuria Home Medications aspirin 81 mg tablet,delayed release 81 mg PO DAILY #1 TAB 09/14/21 [Rx Last Taken 04/26/22] ferrous sulfate 325 mg (65 mg iron) tablet 325 mg PO QODAY 01/29/22 [History Last Taken 04/25/22] amoxicillin 500 mg capsule 500 mg PO TID sinus pain #21 caps 04/21/22 [Rx Last Taken 04/27/22] atorvastatin 20 mg tablet 20 mg PO QHS CHOLESTEROL 04/28/22 [History Last Taken Unknown] lisinopril 40 mg tablet 40 mg PO DAILY BP 04/28/22 [History Last Taken 04/23/22] Allergy/AdvReac Type Severity Reaction Status Date / Time cephalexin [From Keflex] Allergy Severe Other Verified 04/28/22 13:13 Family History Other Colon cancer Diabetes Myocardial infarction Surgical History History of bilateral cataract extraction S/P TAVR (transcatheter aortic valve replacement) (~12/14/21) Social History household members: other details: number of children: 4 current occupational status: employed 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 [employer] Smoking Status: Former smoker alcohol intake: never substance use type: does not use caffeine: Yes Type: tea Number of servings: 1 Physical Exam Const alert, oriented x3 and no apparent distress General Appearance: cooperative and well developed HEENT normocephalic and head/scalp atraumatic Eyes PERRL and EOMs intact bilaterally Neck supple and No nodes Resp normal air movement and clear to auscultation bilaterally Cardio regular rate and regular rhythm GI soft to palpation, non-tender and non-distended Extremity General Extremity: Negative for edema Skin no rashes or lesions noted Neuro CN's II-XII intact bilaterally Medical Records Data Attestation: I reviewed the patient's medical records Lab / Micro Data Result Diagrams: 04/30/22 08:12 04/28/22 11:05 Labs: Laboratory Results - last 24 hr 04/28/22 11:05: Diff Path Review Reviewed 04/29/22 04:30: Diff Path Review Reviewed 04/30/22 08:12: WBC 69.6 H*, RBC 4.01 L, Hgb 10.9 L, Hct 36.7 L, MCV 91.5, MCH 27.2, MCHC 29.7 L, RDW Std Deviation 46.5 H, RDW Coeff of Zack 14.1, Plt Count 726 H, MPV 9.1, Immature Gran % (Auto) 0.600, Neut % (Auto) 14.8 L, Lymph % (Auto) 82.5 H, [place] % (Auto) 1.1, Eos % (Auto) 0.8, Baso % (Auto) 0.2, Absolute Neuts (auto) 10.3 H, Absolute Lymphs (auto) 57.39 H, Nucleated RBC % 0, Differential Comment COMMENT, Diff Path Review Reviewed 04/30/22 1441 <Electronically signed by Vince Rdz MD> Cosigner Signature (if applicable): CC: Dr. Vern Bernardo MD; Dr. Vince Rdz MD~ Signed [facility] Work Phone: Discharge summary Author Dr. Das [facility] April 30, 2022 3:26pm Note Date/Time April 30, 2022 2 :52pm [facility] Medical Records Department [address] [place] [id number] Instructions for Home/Discharge Instructions 04/30/22 1450 MR#: [id number] Acct: [id number] Name: ASHLEY ALCANTAR Rep #:[id number] : 1940 81 From: Haim Das DO PCP: Dr. Vern Bernardo MD Status:ADM IN Discharge Instructions Diet Discharge Diet: No restrictions Activity Discharge Activity: Return to Normal Activity Weight Bearing Status: Full weight bearing Follow Up Care Test Results: Test results from this visit will be discussed in further detail at your follow- up appointment, if applicable. Discharge Plan Admission Admit Date/Time: 04/28/22 11:58 Primary Reason for Your Visit: white blood cell in ascitics Attending Provider: Haim Das Primary Care Provider: Vern Bernardo Consulting Providers: Vince Rdz Instructions Additional Instructions / Restrictions: Follow up with Dr. Borden as directed Discharge Orders/Prescriptions Prescriptions: Continued aspirin 81 mg tablet,delayed release (DR/EC) 81 mg PO DAILY Qty: 1 0RF ferrous sulfate 325 mg (65 mg iron) tablet 325 mg PO QODAY lisinopril 40 mg tablet 40 mg PO DAILY Label Comments: TAKE 1 TABLET BY MOUTH ONCE DAILY atorvastatin 20 mg tablet 20 mg PO QHS Discontinued amoxicillin 500 mg capsule 500 mg PO TID Qty: 21 0RF Referrals / Follow Up: Vern Bernardo MD [Primary Care Provider] - Disposition Disposition (needs filled in before D/C Order can be placed): Home, Self Care 04/30/22 1526<Electronically signed by Haim Das DO>Haim Das DO CC: Dr. Vern Bernardo MD; Dr. Vince Rdz MD ~ Signed [facility] [facility] Work Phone: Evaluation note* Diagnosis Onset Date Resolution Status Aortic regurgitation acute Aortic stenosis acute Elevated blood pressure read ing in office without diagnosis of hypertension acute Glaucoma acute Preop exam for internal medicine acute Aortic regurgitation acute Aortic stenosis acute Essential hypertension acute Preop exam for internal medicine acute CLL (chronic lymphocytic leukemia) [facility] [place] Work Phone: Evaluation note* Diagnosis CLL (chronic lymphocytic leukemia) (HCC)- Primary Chronic lymphoid leukemia, without mention of having achieved remission Lymphocytosis Lymphocytosis (symptomatic) Anemia, unspecified type [facility] Diagnosis Onset Date Resolution Status Elevated blood pressure read ing in office without diagnosis of hypertension acute Glaucoma acute Preop exam for internal medicine acute Essential hypertension acute Preop exam for internal medicine acute CLL (chronic lymphocytic leukemia) chronic Essential hypertension acute Soft tissue mass acute CLL (chronic lymphocytic leukemia) [facility] [place] Work Phone: Evaluation note* Diagnosis Onset Date Resolution Status Elevated blood pressure read ing in office without diagnosis of hypertension acute Glaucoma acute Preop exam for internal medicine acute Encounter to establish care noneactive Essential hypertension acute Preop exam for internal medicine acute CLL (chronic lymphocytic leukemia) chronic Essential hypertension acute Soft tissue mass acute CLL (chronic lymphocytic leukemia) chronic Carotid artery stenosis acut e Essential hypertension acute Nonrheumatic aortic (valve) stenosis with insufficiency acute CLL (chronic lymphocytic leukemia) [facility] [place] Work Phone: Evaluation note* Diagnosis Pre-operative cardiovascular examination Aortic valve disorder Aortic valve disorders documented in this encounter [place] note* Diagnosis Nonrheumatic aortic valve stenosis- Primary Aortic valve disorders Encounter for preprocedural cardiovascular examination Pre-operative cardiovascular examination Aortic valve disorder Aortic valve disorders Heart failure due to valvular disease, unspecified failure chronicity, combined (HCC) [facility] [place] [facility] Diagnosis Onset Date Resolution Status Essential hypertension acute Soft tissue mass acute CLL (chronic lymphocytic leukemia) chronic Carotid artery stenosis acut e Essential hypertension acute Nonrheumatic aortic (valve) stenosis with insufficienc y acute CLL (chronic lymphocytic leukemia) chronic Contact with and (suspected) exposure to other viral communicable diseases acute Urinary tract infection with hematuria acute [facility] Work Phone: Evaluation note* Diagnosis Encounter for preprocedural cardiovascular examination Pre-operative cardiovascular examination Aortic valve disorder Aortic valve disorders Nonrheumatic aortic valve stenosis- Primary Aortic valve disorders 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) CLL (chronic lymphocytic leukemia) (HCC) Chronic lymphoid leukemia, without mention of having achieved [facility] Encounter for preprocedural cardiovascular examination Pre-operative cardiovascular examination Aortic valve disorder Aortic valve disorders [facility] Encounter for preprocedural cardiovascular examination Pre-operative cardiovascular examination Aortic valve disorder Aortic valve disorders [facility] Diagnosis Nonrheumatic aortic valve stenosis- Primary Aortic valve disorders [facility] Diagnosis Encounter for preprocedural cardiovascular examination- Primary Pre-operative cardiovascular examination Aortic valve disorder Aortic valve disorders [facility] Diagnosis Encounter for preprocedural cardiovascular examination- Primary Pre-operative cardiovascular examination Aortic valve disorder Aortic valve disorders [facility] Diagnosis Nonrheumatic aortic valve stenosis- Primary Aortic valve disorders [facility] Diagnosis Lung nodule- Primary Solitary pulmonary nodule [facility] Diagnosis Nonrheumatic aortic valve stenosis- Primary Aortic valve disorders Aortic valve disorder Aortic valve disorders Acute diastolic (congestive) heart failure (HCC) [facility] Diagnosis Nonrheumatic aortic valve stenosis- Primary Aortic valve disorders Pre-op exam Preoperative examination, unspecified Other elevated white blood cell (WBC) count Aortic valve disorder Aortic valve disorders [facility] Diagnosis Encounter for preoperative anesthesiology assessment for cardiac surgery- Primary Aortic valve disorder Aortic valve disorders [facility] Diagnosis S/P TAVR (transcatheter aortic valve replacement)- Primary Heart valve replaced by other means 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) Unspecified hypertensive heart disease with heart failure [facility] Diagnosis Nonrheumatic aortic valve stenosis- Primary Aortic valve disorders 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) S/P TAVR (transcatheter aortic valve replacement) Heart valve replaced by other means Primary hypertension Unspecified essential hypertension CLL (chronic lymphocytic leukemia) (HCC) Chronic lymphoid leukemia, without mention of having achieved remission [facility] Diagnosis CLL (chronic lymphocytic leukemia) (HCC)- Primary Chronic lymphoid leukemia, without mention of having achieved remission Lymphocytosis Lymphocytosis (symptomatic) Anemia, unspecified type [facility] Diagnosis CLL (chronic lymphocytic leukemia) (HCC)- Primary Chronic lymphoid leukemia, without mention of having achieved remission Stage 3b chronic kidney disease (HCC) Other iron deficiency anemia [facility] Diagnosis S/P TAVR (transcatheter aortic valve replacement)- Primary Heart valve replaced by other means 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) Primary hypertension Unspecified essential hypertension [facility] Diagnosis Uterine leiomyoma, unspecified location- Primary Elevated cancer antigen 125 (CA-125) Elevated cancer antigen 125 [CA 125] Other ascites Generalized abdominal or pelvic swelling or mass or lump Abdominal or pelvic swelling, mass, or lump, generalized [facility] Diagnosis Generalized abdominal or pelvic swelling or mass or lump- Primary Abdominal or pelvic swelling, mass, or lump, generalized Other intra-abdominal and pelvic swelling, mass and lump- Primary Generalized abdominal or pelvic swelling or mass or lump Abdominal or pelvic swelling, mass, or lump, generalized [facility] Diagnosis Other intra-abdominal and pelvic swelling, mass and lump- Primary Other ascites [facility] Diagnosis Other intra-abdominal and pelvic swelling, mass and lump- Primary [facility] Diagnosis Lung nodules- Primary Other nonspecific abnormal finding of lung field [facility] Diagnosis Other intra-abdominal and pelvic swelling, mass and lump- Primary Other abnormal tumor markers Other abnormal tumor markers [facility] Diagnosis Other intra-abdominal and pelvic swelling, mass and lump [facility] [place] [facility] Diagnosis Other intra-abdominal and pelvic swelling, mass and lump- Primary Other abnormal tumor markers Neoplasm of unspecified behavior of unspecified site Preop examination Preoperative examination, unspecified Other intra-abdominal and pelvic swelling, mass and lump Other abnormal tumor markers Preop examination Preoperative examination, unspecified documented in this encounter [place] note* Diagnosis Educational circumstances- Primary Educational circumstance Other intra-abdominal and pelvic swelling, mass and lump Other abnormal tumor markers Preop examination Preoperative examination, unspecified [facility] [place] [facility]* Diagnosis Onset Date Resolution Status Cardiac dysrhythmia, unspecified acute Carotid artery stenosis acut e Essential hypertension acute CLL (chronic lymphocytic leukemia) chronic Cystitis acute Right inguinal hernia acute Abdominal pain acute Change in bowel habit acute Hernia noneactive Ascites acute CLL (chronic lymphocytic leukemia) [facility] [place] Work Phone: Evaluation note* Diagnosis Pre-operative examination- Primary Preoperative examination, unspecified S/P TAVR (transcatheter aortic valve replacement) Heart valve replaced by other means Primary hypertension Unspecified essential hypertension Nonrheumatic mitral valve regurgitation Nonrheumatic tricuspid valve regurgitation Tricuspid valve disorders, specified as nonrheumatic CLL (chronic lymphocytic leukemia) (HCC) Chronic lymphoid leukemia, without mention of having achieved remission Chronic diastolic heart failure (HCC) Chronic diastolic heart failure Former smoker Personal history of tobacco use, presenting hazards to health Coronary artery disease involving tangirnaq coronary artery of tangirnaq heart without angina pectoris Gastroesophageal reflux disease, unspecified whether esophagitis present Chronic kidney disease, unspecified CKD stage Iron deficiency anemia, unspecified iron deficiency anemia type Other ascites Other intra-abdominal and pelvic swelling, mass and lump Other abnormal tumor markers Preop examination Preoperative examination, unspecified documented in this encounter [place] note* Diagnosis Preop examination- Primary Preoperative examination, unspecified Other intra-abdominal and pelvic swelling, mass and lump Other abnormal tumor markers Preop examination Preoperative examination, unspecified [facility] [place] [facility]* Diagnosis Other intra-abdominal and pelvic swelling, mass and lump- Primary [facility] [place] [facility]* Diagnosis Post-operative state- Primary Other postprocedural status [facility] Diagnosis Onset Date Resolution Status Cardiac dysrhythmia, unspecified acute Carotid artery stenosis acut e Essential hypertension acute CLL (chronic lymphocytic leukemia) chronic Cystitis acute Right inguinal hernia acute Abdominal pain acute Change in bowel habit acute Hernia noneactive Ascites acute CLL (chronic lymphocytic leukemia) chronic Dyspnea acute Essential hypertension acute History of transcatheter aor tic valve replacement (TAVR) November, acute Leg edema acute Malignant ascites acute Pleural effusion acute CLL (chronic lymphocytic leukemia) chronic Abdominal ascites acute Abdominal mass acute Acute kidney insufficiency a cute Bilateral pleural effusion a cute Elevated CA-125 acute Hypoxia acute Malignant ascites acute CLL (chronic lymphocytic leukemia) [facility] [place] Work Phone: Evaluation note* Diagnosis Onset Date Resolution Status Cystitis acute Right inguinal hernia acute Abdominal pain acute Change in bowel habit acute Hernia noneactive Ascites acute CLL (chronic lymphocytic leukemia) chronic Essential hypertension acute History of transcatheter aor tic valve replacement (TAVR) November, acute Leg edema acute Malignant ascites acute CLL (chronic lymphocytic leukemia) chronic Abdominal ascites acute Abdominal mass acute Acute kidney insufficiency a cute RINA (acute kidney injury) ac [place] Bilateral pleural effusion a cute Elevated CA-125 acute Hypoalbuminemia acute Hypotension acute Hypoxia acute Malignant ascites acute Pelvic mass acute CLL (chronic lymphocytic leukemia) [facility] [place] Work Phone: Evaluation note* Diagnosis Uterine carcinosarcoma (HCC)- Primary Malignant neoplasm of uterus, part unspecified 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 Other ascites Pleural effusion Unspecified pleural effusion CLL (chronic lymphocytic leukemia) (HCC) Chronic lymphoid leukemia, without mention of having achieved remission S/P TAVR (transcatheter aortic valve replacement) Heart valve replaced by other means [facility] Diagnosis Uterine carcinosarcoma (HCC)- Primary Malignant neoplasm of uterus, part unspecified Other ascites Abnormal tumor markers Other abnormal tumor markers [facility] Diagnosis Encounter for education- Primary Counseling NOS [facility] Diagnosis Carcinosarcoma (HCC)- Primary Other malignant neoplasm without specification of site [facility] Diagnosis Uterine carcinosarcoma (HCC)- Primary Malignant neoplasm of uterus, part unspecified 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 Other ascites Pleural effusion Unspecified pleural effusion CLL (chronic lymphocytic leukemia) (HCC) Chronic lymphoid leukemia, without mention of having achieved remission [facility] Diagnosis Onset Date Resolution Status Cystitis acute Right inguinal hernia acute Abdominal pain acute Change in bowel habit acute Hernia noneactive Ascites acute CLL (chronic lymphocytic leukemia) chronic Essential hypertension acute History of transcatheter aor tic valve replacement (TAVR) November, acute Leg edema acute Malignant ascites acute CLL (chronic lymphocytic leukemia) chronic Abdominal ascites acute Bilateral pleural effusion a cute Elevated CA-125 acute Hypoxia acute Malignant ascites acute Pelvic mass acute CLL (chronic lymphocytic leukemia) chronic RINA (acute kidney injury) re 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 documented [facility] [place] [facility]* Diagnosis Uterine carcinosarcoma (HCC)- Primary Malignant neoplasm of uterus, part unspecified 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 Other ascites Pleural effusion Unspecified pleural effusion CLL (chronic lymphocytic leukemia) (HCC) Chronic lymphoid leukemia, without mention of having achieved remission S/P TAVR (transcatheter aortic valve replacement) Heart valve replaced by other means Elevated cancer antigen 125 (CA 125) Elevated cancer antigen 125 [CA 125] [facility] [place] [facility]* Diagnosis Pericardial effusion (noninflammatory)- Primary S/P TAVR (transcatheter aortic valve replacement) Heart valve replaced by other means Uterine carcinosarcoma (HCC) Malignant neoplasm of uterus, part unspecified [facility] [place] [facility]* Diagnosis Uterine carcinosarcoma (HCC)- Primary Malignant neoplasm of uterus, part unspecified 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 [facility] Diagnosis Onset Date Resolution Status Right inguinal hernia acute Abdominal pain acute Change in bowel habit acute Hernia noneactive Ascites acute CLL (chronic lymphocytic leukemia) chronic Essential hypertension acute History of transcatheter aor tic valve replacement (TAVR) November, acute Leg edema acute Malignant ascites acute CLL (chronic lymphocytic leukemia) chronic Abdominal ascites acute Bilateral pleural effusion a cute Elevated CA-125 acute Hypoxia acute Malignant ascites acute Pelvic mass acute RINA (acute kidney injury) re solved Recurrent right pleural effusion acute [facility] Work Phone: Evaluation note* Diagnosis Uterine carcinosarcoma (HCC)- Primary Malignant neoplasm of uterus, part unspecified CLL (chronic lymphocytic leukemia) (HCC) Chronic lymphoid leukemia, without mention of having achieved remission [facility] Diagnosis Uterine carcinosarcoma (HCC)- Primary Malignant neoplasm of uterus, part unspecified 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) [facility] Diagnosis Pleural effusion- Primary Unspecified pleural effusion Chest discomfort Other chest pain [facility] Diagnosis 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 [facility] Diagnosis Uterine carcinosarcoma (HCC)- Primary Malignant neoplasm of uterus, part unspecified 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) CLL (chronic lymphocytic leukemia) (HCC) Chronic lymphoid leukemia, without mention of having achieved remission Elevated cancer antigen 125 (CA 125) Elevated cancer antigen 125 [CA 125] [facility] Diagnosis Pleural effusion- Primary Unspecified pleural effusion [facility] Diagnosis Uterine carcinosarcoma (HCC)- Primary Malignant neoplasm of uterus, part unspecified 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) [facility] Diagnosis Pleural effusion- Primary Unspecified pleural effusion [facility] Diagnosis Uterine carcinosarcoma (HCC)- Primary Malignant neoplasm of uterus, part unspecified 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) Heart valve replaced by other means CLL (chronic lymphocytic leukemia) (HCC) Chronic lymphoid leukemia, without mention of having achieved remission [facility] Diagnosis Uterine carcinosarcoma (HCC)- Primary Malignant neoplasm of uterus, part unspecified 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) [facility] [place] [facility]* Diagnosis 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 [facility] Diagnosis Uterine carcinosarcoma (HCC)- Primary Malignant neoplasm of uterus, part unspecified 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) [facility] Diagnosis Uterine carcinosarcoma (HCC)- Primary Malignant neoplasm of uterus, part unspecified CLL (chronic lymphocytic leukemia) (HCC) Chronic lymphoid leukemia, without mention of having achieved remission [facility] Diagnosis Uterine carcinosarcoma (HCC)- Primary Malignant neoplasm of uterus, part unspecified 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) [facility] Diagnosis Uterine carcinosarcoma (HCC)- Primary Malignant neoplasm of uterus, part unspecified 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) CLL (chronic lymphocytic leukemia) (HCC) Chronic lymphoid leukemia, without mention of having achieved remission [facility] Diagnosis Uterine carcinosarcoma (HCC)- Primary Malignant neoplasm of uterus, part unspecified [facility] Diagnosis Uterine carcinosarcoma (HCC)- Primary Malignant neoplasm of uterus, part unspecified 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) [facility] Diagnosis Pleural effusion Unspecified pleural effusion [facility] Diagnosis Pleural effusion Unspecified pleural effusion Chest discomfort Other chest pain [facility] Diagnosis Pleural effusion Unspecified pleural effusion [facility] Diagnosis Uterine carcinosarcoma (HCC) Malignant neoplasm of uterus, part unspecified Pleural effusion Unspecified pleural effusion [facility] Diagnosis Uterine carcinosarcoma (HCC) Malignant neoplasm of uterus, part unspecified 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) [facility] Diagnosis Uterine carcinosarcoma (HCC)- Primary Malignant neoplasm of uterus, part unspecified 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) Malignant neoplasm of ovary, unspecified laterality (HCC) [facility] Diagnosis Uterine carcinosarcoma (HCC)- Primary Malignant neoplasm of uterus, part unspecified 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) Pleural effusion Unspecified pleural effusion RINA (acute kidney injury) (HCC) Acute kidney failure, unspecified CLL (chronic lymphocytic leukemia) (HCC) Chronic lymphoid leukemia, without mention of having achieved remission [facility] Diagnosis Pain of right hand Pain in limb [facility] [place] [facility]* Diagnosis 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 Pain of right hand Pain in limb Tendonitis of wrist, right Other tenosynovitis of hand and wrist Bilateral hand numbness Disturbance of skin sensation [facility] [place] [facility]* Diagnosis Pre-operative examination- Primary Preoperative examination, unspecified S/P TAVR (transcatheter aortic valve replacement) Heart valve replaced by other means Primary hypertension Unspecified essential hypertension Nonrheumatic mitral valve regurgitation Nonrheumatic tricuspid valve regurgitation Tricuspid valve disorders, specified as nonrheumatic CLL (chronic lymphocytic leukemia) (HCC) Chronic lymphoid leukemia, without mention of having achieved remission Chronic diastolic heart failure (HCC) Chronic diastolic heart failure Former smoker Personal history of tobacco use, presenting hazards to health Coronary artery disease involving tangirnaq coronary artery of tangirnaq heart without angina pectoris Gastroesophageal reflux disease, unspecified whether esophagitis present Chronic kidney disease, unspecified CKD stage Iron deficiency anemia, unspecified iron deficiency anemia type Other ascites Uterine carcinosarcoma (HCC)- Primary Malignant neoplasm of uterus, part unspecified 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) CLL (chronic lymphocytic leukemia) (HCC) Chronic lymphoid leukemia, without mention of having achieved remission [facility] [place] [facility] Diagnosis Pre-operative examination- Primary Preoperative examination, unspecified S/P TAVR (transcatheter aortic valve replacement) Heart valve replaced by other means Primary hypertension Unspecified essential hypertension Nonrheumatic mitral valve regurgitation Nonrheumatic tricuspid valve regurgitation Tricuspid valve disorders, specified as nonrheumatic CLL (chronic lymphocytic leukemia) (HCC) Chronic lymphoid leukemia, without mention of having achieved remission Chronic diastolic heart failure (HCC) Chronic diastolic heart failure Former smoker Personal history of tobacco use, presenting hazards to health Coronary artery disease involving tangirnaq coronary artery of tangirnaq heart without angina pectoris Gastroesophageal reflux disease, unspecified whether esophagitis present Chronic kidney disease, unspecified CKD stage Iron deficiency anemia, unspecified iron deficiency anemia type Other ascites Uterine carcinosarcoma (HCC) Malignant neoplasm of uterus, part unspecified 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) [facility] [place] [facility] Diagnosis Pre-operative examination- Primary Preoperative examination, unspecified S/P TAVR (transcatheter aortic valve replacement) Heart valve replaced by other means Primary hypertension Unspecified essential hypertension Nonrheumatic mitral valve regurgitation Nonrheumatic tricuspid valve regurgitation Tricuspid valve disorders, specified as nonrheumatic CLL (chronic lymphocytic leukemia) (HCC) Chronic lymphoid leukemia, without mention of having achieved remission Chronic diastolic heart failure (HCC) Chronic diastolic heart failure Former smoker Personal history of tobacco use, presenting hazards to health Coronary artery disease involving tangirnaq coronary artery of tangirnaq heart without angina pectoris Gastroesophageal reflux disease, unspecified whether esophagitis present Chronic kidney disease, unspecified CKD stage Iron deficiency anemia, unspecified iron deficiency anemia type Other ascites Uterine carcinosarcoma (HCC)- Primary Malignant neoplasm of uterus, part unspecified 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) Pleural effusion Unspecified pleural effusion CLL (chronic lymphocytic leukemia) (HCC) Chronic lymphoid leukemia, without mention of having achieved remission Chemotherapy-induced neuropathy (HCC) Polyneuropathy due to drugs Other chronic pulmonary embolism without acute cor pulmonale (HCC) [facility] [place] [facility] Diagnosis Pre-operative examination- Primary Preoperative examination, unspecified S/P TAVR (transcatheter aortic valve replacement) Heart valve replaced by other means Primary hypertension Unspecified essential hypertension Nonrheumatic mitral valve regurgitation Nonrheumatic tricuspid valve regurgitation Tricuspid valve disorders, specified as nonrheumatic CLL (chronic lymphocytic leukemia) (HCC) Chronic lymphoid leukemia, without mention of having achieved remission Chronic diastolic heart failure (HCC) Chronic diastolic heart failure Former smoker Personal history of tobacco use, presenting hazards to health Coronary artery disease involving tangirnaq coronary artery of tangirnaq heart without angina pectoris Gastroesophageal reflux disease, unspecified whether esophagitis present Chronic kidney disease, unspecified CKD stage Iron deficiency anemia, unspecified iron deficiency anemia type Other ascites 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) Malignant neoplasm of uterus, part unspecified Malignant neoplasm of ovary, unspecified laterality (HCC) [facility] [place] [facility]* Diagnosis Pre-operative examination- Primary Preoperative examination, unspecified S/P TAVR (transcatheter aortic valve replacement) Heart valve replaced by other means Primary hypertension Unspecified essential hypertension Nonrheumatic mitral valve regurgitation Nonrheumatic tricuspid valve regurgitation Tricuspid valve disorders, specified as nonrheumatic CLL (chronic lymphocytic leukemia) (HCC) Chronic lymphoid leukemia, without mention of having achieved remission Chronic diastolic heart failure (HCC) Chronic diastolic heart failure Former smoker Personal history of tobacco use, presenting hazards to health Coronary artery disease involving tangirnaq coronary artery of tangirnaq heart without angina pectoris Gastroesophageal reflux disease, unspecified whether esophagitis present Chronic kidney disease, unspecified CKD stage Iron deficiency anemia, unspecified iron deficiency anemia type Other ascites 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) Malignant neoplasm of uterus, part unspecified [facility] [place] [facility]* Diagnosis Pre-operative examination- Primary Preoperative examination, unspecified S/P TAVR (transcatheter aortic valve replacement) Heart valve replaced by other means Primary hypertension Unspecified essential hypertension Nonrheumatic mitral valve regurgitation Nonrheumatic tricuspid valve regurgitation Tricuspid valve disorders, specified as nonrheumatic CLL (chronic lymphocytic leukemia) (HCC) Chronic lymphoid leukemia, without mention of having achieved remission Chronic diastolic heart failure (HCC) Chronic diastolic heart failure Former smoker Personal history of tobacco use, presenting hazards to health Coronary artery disease involving tangirnaq coronary artery of tangirnaq heart without angina pectoris Gastroesophageal reflux disease, unspecified whether esophagitis present Chronic kidney disease, unspecified CKD stage Iron deficiency anemia, unspecified iron deficiency anemia type Other ascites Abnormal CT of liver- Primary Nonspecific (abnormal) findings on radiological and other examination of biliary tract documented in this encounter [place] note* Diagnosis Pre-operative examination- Primary Preoperative examination, unspecified S/P TAVR (transcatheter aortic valve replacement) Heart valve replaced by other means Primary hypertension Unspecified essential hypertension Nonrheumatic mitral valve regurgitation Nonrheumatic tricuspid valve regurgitation Tricuspid valve disorders, specified as nonrheumatic CLL (chronic lymphocytic leukemia) (HCC) Chronic lymphoid leukemia, without mention of having achieved remission Chronic diastolic heart failure (HCC) Chronic diastolic heart failure Former smoker Personal history of tobacco use, presenting hazards to health Coronary artery disease involving tangirnaq coronary artery of tangirnaq heart without angina pectoris Gastroesophageal reflux disease, unspecified whether esophagitis present Chronic kidney disease, unspecified CKD stage Iron deficiency anemia, unspecified iron deficiency anemia type Other ascites Abnormal CT of liver Nonspecific (abnormal) findings on radiological and other examination of biliary tract [facility] [place] [facility] Diagnosis Pre-operative examination- Primary Preoperative examination, unspecified S/P TAVR (transcatheter aortic valve replacement) Heart valve replaced by other means Primary hypertension Unspecified essential hypertension Nonrheumatic mitral valve regurgitation Nonrheumatic tricuspid valve regurgitation Tricuspid valve disorders, specified as nonrheumatic CLL (chronic lymphocytic leukemia) (HCC) Chronic lymphoid leukemia, without mention of having achieved remission Chronic diastolic heart failure (HCC) Chronic diastolic heart failure Former smoker Personal history of tobacco use, presenting hazards to health Coronary artery disease involving tangirnaq coronary artery of tangirnaq heart without angina pectoris Gastroesophageal reflux disease, unspecified whether esophagitis present Chronic kidney disease, unspecified CKD stage Iron deficiency anemia, unspecified iron deficiency anemia type Other ascites RINA (acute kidney injury) (HCC)- Primary Acute kidney failure, unspecified [facility] [place] [facility]* Diagnosis Pre-operative examination- Primary Preoperative examination, unspecified S/P TAVR (transcatheter aortic valve replacement) Heart valve replaced by other means Primary hypertension Unspecified essential hypertension Nonrheumatic mitral valve regurgitation Nonrheumatic tricuspid valve regurgitation Tricuspid valve disorders, specified as nonrheumatic CLL (chronic lymphocytic leukemia) (HCC) Chronic lymphoid leukemia, without mention of having achieved remission Chronic diastolic heart failure (HCC) Chronic diastolic heart failure Former smoker Personal history of tobacco use, presenting hazards to health Coronary artery disease involving tangirnaq coronary artery of tangirnaq heart without angina pectoris Gastroesophageal reflux disease, unspecified whether esophagitis present Chronic kidney disease, unspecified CKD stage Iron deficiency anemia, unspecified iron deficiency anemia type Other ascites Uterine carcinosarcoma (HCC)- Primary Malignant neoplasm of uterus, part unspecified 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) CLL (chronic lymphocytic leukemia) (HCC) Chronic lymphoid leukemia, without mention of having achieved remission Chemotherapy-induced neuropathy (HCC) Polyneuropathy due to drugs [facility] [place] [facility]* Diagnosis Pre-operative examination- Primary Preoperative examination, unspecified S/P TAVR (transcatheter aortic valve replacement) Heart valve replaced by other means Primary hypertension Unspecified essential hypertension Nonrheumatic mitral valve regurgitation Nonrheumatic tricuspid valve regurgitation Tricuspid valve disorders, specified as nonrheumatic CLL (chronic lymphocytic leukemia) (HCC) Chronic lymphoid leukemia, without mention of having achieved remission Chronic diastolic heart failure (HCC) Chronic diastolic heart failure Former smoker Personal history of tobacco use, presenting hazards to health Coronary artery disease involving tangirnaq coronary artery of tangirnaq heart without angina pectoris Gastroesophageal reflux disease, unspecified whether esophagitis present Chronic kidney disease, unspecified CKD stage Iron deficiency anemia, unspecified iron deficiency anemia type Other ascites RINA (acute kidney injury) (HCC) Acute kidney failure, unspecified [facility] [place] [facility]* Diagnosis Pre-operative examination- Primary Preoperative examination, unspecified S/P TAVR (transcatheter aortic valve replacement) Heart valve replaced by other means Primary hypertension Unspecified essential hypertension Nonrheumatic mitral valve regurgitation Nonrheumatic tricuspid valve regurgitation Tricuspid valve disorders, specified as nonrheumatic CLL (chronic lymphocytic leukemia) (HCC) Chronic lymphoid leukemia, without mention of having achieved remission Chronic diastolic heart failure (HCC) Chronic diastolic heart failure Former smoker Personal history of tobacco use, presenting hazards to health Coronary artery disease involving tangirnaq coronary artery of tangirnaq heart without angina pectoris Gastroesophageal reflux disease, unspecified whether esophagitis present Chronic kidney disease, unspecified CKD stage Iron deficiency anemia, unspecified iron deficiency anemia type Other ascites Uterine carcinosarcoma (HCC)- Primary Malignant neoplasm of uterus, part unspecified 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) CLL (chronic lymphocytic leukemia) (HCC) Chronic lymphoid leukemia, without mention of having achieved remission Chemotherapy-induced neuropathy (HCC) Polyneuropathy due to drugs Pleural effusion Unspecified pleural effusion Other chronic pulmonary embolism without acute cor pulmonale (HCC) documented in this encounter [place] note* Diagnosis Pre-operative examination- Primary Preoperative examination, unspecified S/P TAVR (transcatheter aortic valve replacement) Heart valve replaced by other means Primary hypertension Unspecified essential hypertension Nonrheumatic mitral valve regurgitation Nonrheumatic tricuspid valve regurgitation Tricuspid valve disorders, specified as nonrheumatic CLL (chronic lymphocytic leukemia) (HCC) Chronic lymphoid leukemia, without mention of having achieved remission Chronic diastolic heart failure (HCC) Chronic diastolic heart failure Former smoker Personal history of tobacco use, presenting hazards to health Coronary artery disease involving tangirnaq coronary artery of tangirnaq heart without angina pectoris Gastroesophageal reflux disease, unspecified whether esophagitis present Chronic kidney disease, unspecified CKD stage Iron deficiency anemia, unspecified iron deficiency anemia type Other ascites Uterine carcinosarcoma (HCC) Malignant neoplasm of uterus, part unspecified 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) documented in this encounter [facility] for referral (narrative)* Diagnostic Procedure Only (Routine) - Pending Review Specialty Diagnoses / Procedures Referred By Allison trejo Referred To Contact MOLECULAR [facility] FUNCTIONAL IMAGING Diagnoses Encounter for preprocedural cardiovascular examination Aortic valve disorder Procedures NM SPECT/CT CARDIAC AMYLOID RP LOCLZJ MIGUEL SPECT W/CT 1 AREA 1 DAY IMAGING Held, Janneth Stover APRN.SENIOR CIVIL ENGINEER [address] [place] [address] Molecular & Functional Imaging [address] [id number] Referral ID Status Reason Start Date Expiration Date Visits Requested Visits Authorized [id number] Pending Review Auto-Generat ed Referral 10/11/2021 11/10/2022 1 1 * Outpatient Procedure (Routine) - Pending Review Specialty Diagnoses / Procedures Referred By Contac t Referred To Contact [facility] Diagnoses Aortic valve disorder Procedures ECG COMPLETE ECG ROUTINE ECG W/LEAST 12 LDS W/I&R Janneth Peres APRN.SENIOR CIVIL ENGINEER [address] [place] [address] [address] Referral ID Status Reason Start Date Expiration Date Visits Requested Visits Authorized [id number] Pending Review Auto-Generat ed Referral 10/11/2021 10/11/2022 1 1 * Outpatient Procedure (Routine) - Pending Review Specialty Diagnoses / Procedures Referred By Contac t Referred To Contact [facility] Diagnoses Encounter for preprocedural cardiovascular examination Aortic valve disorder Procedures ECHO ECHO TTHRC R-T 2D W/WOM-MODE COMPL SPEC&COLR D Janneth Peres APRN.SENIOR CIVIL ENGINEER [address] [place] [address] [address] Referral ID Status Reason Start Date Expiration Date Visits Requested Visits Authorized [id number] Pending Review Auto-Generat ed Referral 10/11/2021 10/11/2022 1 1 * MRI/CT (Routine) - Pending Review Specialty Diagnoses / Procedures Referred By Contac t Referred To Contact CT IMAGING Diagnoses Encounter for preprocedural cardiovascular examination Aortic valve disorder Procedures CTA CHEST/ABD/PEL (GATED) W IVCON CT ANGIOGRAPHY CHEST W/CONTRAST/NONCONTRAST CT ANGIO ABD&PLVIS CNTRST MTRL W/WO CNTRST IMGES Janneth Peres APRN.CNS [address] [place] [address] Ct Imaging Referral ID Status Reason Start Date Expiration Date Visits Requested Visits Authorized [id number] Pending Review Auto-Generat ed Referral 10/11/2021 11/10/2022 1 1 * Outpatient Procedure (Routine) - Pending Review Specialty Diagnoses / Procedures Referred By Contac t Referred [facility] Diagnoses Encounter for preprocedural cardiovascular examination Aortic valve disorder Procedures LUNG DIFFUSION CAPACITY (DLCO) DIFFUSING CAPACITY Janneth Peres APRN.SENIOR CIVIL ENGINEER [address] [place] [address] Respiratory [facility] [address] [place] [address] Referral ID Status Reason Start Date Expiration Date Visits Requested Visits Authorized [id number] Pending Review Auto-Generat ed Referral 10/11/2021 11/10/2022 1 1 * Outpatient Procedure (Routine) - Pending Review Specialty Diagnoses / Procedures Referred By Contac t Referred To [facility] Diagnoses Encounter for preprocedural cardiovascular examination Aortic valve disorder Procedures SPIROMETRY BASELINE ONLY SPMTRY W/VC EXPIRATORY LORRI W/WO MXML VOL VNTJ Janneth Peres APRN.SENIOR CIVIL ENGINEER [address] [place] [address] [place] [address] Referral ID Status Reason Start Date Expiration Date Visits Requested Visits Authorized [id number] Pending Review Auto-Generat ed Referral 10/11/2021 11/10/2022 1 1 [facility] for referral (narrative)* Outpatient Procedure (Routine) - Pending Review Specialty Diagnoses / Procedures Referred By Contac t Referred To Contact [facility] Diagnoses Aortic valve disorder Procedures ECG COMPLETE ECG ROUTINE ECG W/LEAST 12 LDS W/I&R Mindi Ratliff APRN.STORE LOSS PREVENTION MANAGER [address] [place] [address] [address] [phone] Referral ID Status Reason Start Date Expiration Date Visits Requested Visits Authorized [id number] Pending Review Auto-Generat ed Referral 12/01/2021 12/01/2022 1 1 * Outpatient Procedure (Routine) - Pending Review Specialty Diagnoses / Procedures Referred By Contac t Referred To Contact [facility] Diagnoses Nonrheumatic aortic valve stenosis Procedures ECHO TRANSESOPHAGEAL ECHO TRANSESOPHAG R-T 2D W/PRB IMG ACQUISJ I&R Mindi Ratliff APRN.STORE LOSS PREVENTION MANAGER [address] [place] [address] [address] Referral ID Status Reason Start Date Expiration Date Visits Requested Visits Authorized [id number] Pending Review Auto-Generat ed Referral 12/01/2021 12/01/2022 1 1 [facility] for referral (narrative)* Outpatient Procedure (Routine) - Authorized Specialty Diagnoses / Procedures Referred By Contac t Referred To Contact [facility] Diagnoses S/P TAVR (transcatheter aortic valve replacement) Procedures ECHO ECHO TTHRC R-T 2D W/WOM-MODE COMPL SPEC&COLR Nir Ng MD [facility] [address] [place] [id number] [address] [phone] Referral ID Status Reason Start Date Expiration Date Visits Requested Visits Authorized [id number] Authorized Auto-Generat ed Referral 12/14/2021 12/14/2022 1 1 * Outpatient Procedure (Routine) - Authorized Specialty Diagnoses / Procedures Referred By Contac t Referred To Contact [facility] Diagnoses S/P TAVR (transcatheter aortic valve replacement) Procedures ECG COMPLETE ECG ROUTINE ECG W/LEAST 12 LDS W/I&R Nir Roth MD [address] [address] Referral ID Status Reason Start Date Expiration Date Visits Requested Visits Authorized [id number] Authorized Auto-Generat ed Referral 12/14/2021 12/14/2022 1 1 * Outpatient Procedure (Routine) - Authorized Specialty Diagnoses / Procedures Referred By Contac t Referred To Contact [facility] Diagnoses S/P TAVR (transcatheter aortic valve replacement) Procedures ECG COMPLETE ECG ROUTINE ECG W/LEAST 12 LDS W/I&R Nir Roth MD [address] [address] Referral ID Status Reason Start Date Expiration Date Visits Requested Visits Authorized [id number] Authorized Auto-Generat ed Referral 12/14/2021 12/14/2022 1 1 [facility] for referral (narrative)* Outpatient Procedure (Routine) - Pending Review Specialty Diagnoses / Procedures Referred By Contac t Referred To Contact [facility] Diagnoses S/P TAVR (transcatheter aortic valve replacement) Procedures ECHO ECHO TTHRC R-T 2D W/WOM-MODE COMPL SPEC&COLR D Nir Roth MD [address] [address] Referral ID Status Reason Start Date Expiration Date Visits Requested Visits Authorized [id number] Pending Review Auto-Generat ed Referral 12/22/2021 12/22/2022 1 1 [facility] for referral (narrative)* Outpatient Procedure (Routine) - Pending Review Specialty Diagnoses / Procedures Referred By Contac t Referred To Contact [facility] Diagnoses 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) Procedures ECHO ECHO TTHRC R-T 2D W/WOM-MODE COMPL SPEC&COLR D Nir Roth MD [address] [address] Referral ID Status Reason Start Date Expiration Date Visits Requested Visits Authorized [id number] Pending Review Auto-Generat ed Referral 02/23/2023 1 1 [facility] for referral (narrative)* Outpatient Procedure (Routine) - Authorized Specialty Diagnoses / Procedures Referred By Allison t Referred To Contact [facility] Diagnoses Other intra-abdominal and pelvic swelling, mass and lump Procedures ABDOM PARACENTESIS DX/THER W IMAGING GUIDANCE ABDOM PARACENTESIS DX/THER W IMAGING GUIDANCE Samra Cee, MULTICUT LINE OPERATOR.STORE LOSS PREVENTION MANAGER [address] [place] [address] [facility] [address] [place] [address] Referral ID Status Reason Start Date Expiration Date Visits Requested Visits Authorized [id number] Authorized Auto-Generat ed Referral 04/23/2022 04/23/2023 1 1 Electronically signed by Samra Cee MULTICUT LINE OPERATOR.STORE LOSS PREVENTION MANAGER at 04/23/2022 9:04 AM EST [facility] for referral (narrative)* Outpatient Procedure (Routine) - Closed Specialty Diagnoses / Procedures Referred By Contac t Referred To Contact [facility] Diagnoses Other intra-abdominal and pelvic swelling, mass and lump Procedures ABDOM PARACENTESIS DX/THER W IMAGING GUIDANCE ABDOM PARACENTESIS DX/THER W IMAGING GUIDANCE Samra Cee APRN.CNP [address] [place] [address] [facility] [address] [place] [address] Referral ID Status Reason Start Date Expiration Date V isits Requested Visits Authorized [id number] Closed Auto-Generate d Referral 04/23/2022 04/23/2023 1 1 [facility] for referral (narrative)* Outpatient Procedure (Routine) - Pending Review Specialty Diagnoses / Procedures Referred By Contac t Referred To Contact [facility] Diagnoses Other intra-abdominal and pelvic swelling, mass and lump Other abnormal tumor markers Preop examination Procedures ECG COMPLETE ECG ROUTINE ECG W/LEAST 12 LDS W/I&R Samra Cee APRN.STORE LOSS PREVENTION MANAGER [address] [place] [address] [address] Referral ID Status Reason Start Date Expiration Date Visits Requested Visits Authorized [id number] Pending Review Auto-Generat ed Referral 05/03/2022 05/03/2023 1 1 [facility] for referral (narrative)* Outpatient Procedure (Routine) - Authorized Specialty Diagnoses / Procedures Referred By Contac t Referred To Contact [facility] Diagnoses 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) Procedures ECHO ECHO TTHRC R-T 2D W/WOM-MODE COMPL SPEC&COLR D Ruddy Patricio, DO [address] [place] [address] [facility] [address] [address] Referral ID Status Reason Start Date Expiration Date Visits Requested Visits Authorized [id number] Authorized Auto-Generat ed Referral 06/01/2022 06/01/2023 1 1 [facility] for referral (narrative)* Outpatient Procedure (Urgent) - Authorized Specialty Diagnoses / Procedures Referred By Contac t Referred To Contact [facility] Diagnoses S/P TAVR (transcatheter aortic valve replacement) Pericardial effusion (noninflammatory) Uterine carcinosarcoma (HCC) Procedures ECHO ECHO TTHRC R-T 2D W/WOM-MODE COMPL SPEC&COLR D Ruddy Patricio DO [address] [place] [address] [address] Referral ID Status Reason Start Date Expiration Date Visits Requested Visits Authorized [id number] Authorized Auto-Generat ed Referral 06/26/2022 06/26/2023 1 1 [facility] for referral (narrative)* Diagnostic Procedure Only (Urgent) - Closed Specialty Diagnoses / Procedures Referred By Contac t Referred To Contact XR IMAGING Diagnoses Pleural effusion Chest discomfort Procedures XR CHEST 1V FRONTAL RADIOLOGIC EXAM CHEST SINGLE VIEW Regina Ramirez PA-C [address] [place] [address] Xr Imaging Referral ID Status Reason Start Date Expiration Date V isits Requested Visits Authorized [id number] Closed Auto-Generate d Referral 07/05/2022 08/04/2023 1 1 [facility] for referral (narrative)* Diagnostic Procedure Only (Urgent) - Closed Specialty Diagnoses / Procedures Referred By Contac t Referred To Contact XR IMAGING Diagnoses Pleural effusion Chest discomfort Procedures XR CHEST 1V FRONTAL RADIOLOGIC EXAM CHEST SINGLE VIEW Regina Ramirez PA-C [address] [place] [address] [place] [address] Referral ID Status Reason Start Date Expiration Date V isits Requested Visits Authorized [id number] Closed Auto-Generate d Referral 07/05/2022 08/04/2023 1 1 [facility] for referral (narrative)* Diagnostic Procedure Only (Routine) - Closed Specialty Diagnoses / Procedures Referred By Contac t Referred To Contact XR IMAGING Diagnoses Pain of right hand Procedures XR HAND GENERAL 3V PA/LAT/OBL RIGHT RADEX HAND MINIMUM 3 VIEWS Amarilis Garduno PA-C [address] [place] [address] Xr Imaging [facility] Referral ID Status Reason Start Date Expiration Date V isits Requested Visits Authorized [id number] Closed Auto-Generate d Referral 09/06/2023 10/05/2024 1 1 [facility] for referral (narrative)* Diagnostic Procedure Only (Routine) - Authorized Specialty Diagnoses / Procedures Referred By Allison t Referred To Contact US IMAGING Diagnoses Abnormal CT of liver Procedures US ABD RIGHT UPPER QUADRANT US ABDOMINAL REAL TIME W/IMAGE LIMITED Ruddy Patricio DO [address] [place] [address] Us Imaging [facility] Referral ID Status Reason Start Date Expiration Date Visits Requested Visits Authorized [id number] Authorized Auto-Generat ed Referral 04/23/2024 05/23/2025 1 1 [facility] for visit Narrative* Outpatient Procedure (Routine) - Closed Specialty Diagnoses / Procedures Referred By Allison t Referred To Contact [facility] Diagnoses Other intra-abdominal and pelvic swelling, mass and lump Procedures ABDOM PARACENTESIS DX/THER W IMAGING GUIDANCE ABDOM PARACENTESIS DX/THER W IMAGING GUIDANCE Samra Cee, MULTICUT LINE OPERATOR.STORE LOSS PREVENTION MANAGER [id number] [facility] [place] [address] Referral ID Status Reason Start Date Expiration Date V isits Requested Visits Authorized [id number] Closed Auto-Generate d Referral 04/23/2022 04/23/2023 1 1 [facility] for visit Narrative* Diagnostic Procedure Only (Urgent) - Closed Specialty Diagnoses / Procedures Referred By Contac t Referred To Contact XR IMAGING Diagnoses Pleural effusion Chest discomfort Procedures XR CHEST 1V FRONTAL RADIOLOGIC EXAM CHEST SINGLE VIEW Regina Ramirez PA-C [address] [place] [address] [place] [address] Referral ID Status Reason Start Date Expiration Date V isits Requested Visits Authorized [id number] Closed Auto-Generate d Referral 07/05/2022 08/04/2023 1 1 [facility] for visit Narrative* Diagnostic Procedure Only (Routine) - Closed Specialty Diagnoses / Procedures Referred By Contac t Referred To Contact XR IMAGING Diagnoses Pain of right hand Procedures XR HAND GENERAL 3V PA/LAT/OBL RIGHT RADEX HAND MINIMUM 3 VIEWS Amarilis Garduno PA-C [address] [place] [address] [place] [address] Referral ID Status Reason Start Date Expiration Date V isits Requested Visits Authorized [id number] Closed Auto-Generate d Referral 09/06/2023 10/05/2024 1 1 [facility] Chief Complaint and Reason for Visit Chief Complaint SINUS INFECTION SUPERVISOR BOTTLE MACHINES, EST. CARE, ALSO NEEDS SURGERY CLEARANCE SURGICAL CLEARANCE review labs Reason for Visit Aortic regurgitation Aortic stenosis Elevated blood pressure reading in office without diagnosis of hypertension Glaucoma Preop exam for internal medicine Aortic regurgitation Aortic stenosis Essential hypertension Preop exam for internal medicine CLL (chronic lymphocytic leukemia) Chief Complaint SUPERVISOR BOTTLE MACHINES, EST. CARE, ALSO NEEDS SURGERY CLEARANCE SURGICAL CLEARANCE review labs BP ISSUES 2 M FU HYPERTENSION, SOFT TISSUE LUMP LT INNER KNEE Amb Documentation Reason for Visit Elevated blood press ure reading in office without diagnosis of hypertension Glaucoma Preop exam for internal medicine Essential hypertension Preop exam for internal medicine CLL (chronic lymphocytic leukemia) Essential hypertension Soft tissue mass CLL (chronic lymphocytic leukemia) Chief Complaint SUPERVISOR BOTTLE MACHINES, EST. CARE, ALSO NEEDS SURGERY CLEARANCE SURGICAL CLEARANCE review labs BP ISSUES 2 M FU HYPERTENSION, SOFT TISSUE LUMP LT INNER KNEE Amb Documentation AORTIC STENOSIS/REF. ETHEL Reason for Visit Elevated blood press ure reading in office without diagnosis of hypertension Glaucoma Preop exam for internal medicine Encounter to establish care Essential hypertension Preop exam for internal medicine CLL (chronic lymphocytic leukemia) Essential hypertension Soft tissue mass CLL (chronic lymphocytic leukemia) Carotid artery stenosis Essential hypertension Nonrheumatic aortic (valve) stenosis with insufficiency CLL (chronic lymphocytic leukemia) Chief Complaint SUPERVISOR BOTTLE MACHINES, EST. CARE, ALSO NEEDS SURGERY CLEARANCE SURGICAL CLEARANCE review labs BP ISSUES 2 M FU HYPERTENSION, SOFT TISSUE LUMP LT INNER KNEE Amb Documentation AORTIC STENOSIS/REF. ETHEL NON AROTIC VALVE VIKA,CAROTID STENOSIS NON AROTIC VALVE VIKA,CAROTID STENOSIS Reason for Visit Elevated blood press ure reading in office without diagnosis of hypertension Glaucoma Preop exam for internal medicine Encounter to establish care Essential hypertension Preop exam for internal medicine CLL (chronic lymphocytic leukemia) Essential hypertension Soft tissue mass CLL (chronic lymphocytic leukemia) Carotid artery stenosis Essential hypertension Nonrheumatic aortic (valve) stenosis with insufficiency CLL (chronic lymphocytic leukemia) Chief Complaint BP ISSUES 2 M FU HYPERTENSION, SOFT TISSUE LUMP LT INNER KNEE Amb Documentation AORTIC STENOSIS/REF. ETHEL NON AROTIC VALVE VIKA,CAROTID STENOSIS NON AROTIC VALVE VIKA,CAROTID STENOSIS COVID TEST/PER PCP/CONCERN FOR UTI Reason for Visit Essential hypertensi on Soft tissue mass CLL (chronic lymphocytic leukemia) Carotid artery stenosis Essential hypertension Nonrheumatic aortic (valve) stenosis with insufficiency CLL (chronic lymphocytic leukemia) Contact with and (suspected) exposure to other viral communicable diseases Urinary tract infection with hematuria Chief Complaint POST TAVR CCF 1 m fu (request PFM) CONCERN FOR SINUS INFECTION Reason for Visit Carotid artery steno sis Essential hypertension S/P TAVR (transcatheter aortic valve replacement) CLL (chronic lymphocytic leukemia) Cardiac dysrhythmia, unspecified Carotid artery stenosis Essential hypertension S/P TAVR (transcatheter aortic valve replacement) CLL (chronic lymphocytic leukemia) Acute sinusitis Cystitis Chief Complaint POST TAVR CCF 1 m fu (request PFM) CONCERN FOR SINUS INFECTION Urinary tract infection Stomach Pain Hernia ABD PAIN MASS E-ORDER Reason for Visit Carotid artery steno sis Essential hypertension S/P TAVR (transcatheter aortic valve replacement) CLL (chronic lymphocytic leukemia) Cardiac dysrhythmia, unspecified Carotid artery stenosis Essential hypertension S/P TAVR (transcatheter aortic valve replacement) CLL (chronic lymphocytic leukemia) Acute sinusitis Cystitis UTI (urinary tract infection) Right inguinal hernia Abdominal pain Change in bowel habit Hernia Chief Complaint 1 m fu (request PFM) CONCERN FOR SINUS INFECTION Urinary tract infection Stomach Pain Hernia ABD PAIN MASS E-ORDER Reason for Visit Cardiac dysrhythmia, unspecified Carotid artery stenosis Essential hypertension S/P TAVR (transcatheter aortic valve replacement) CLL (chronic lymphocytic leukemia) Acute sinusitis Cystitis UTI (urinary tract infection) Right inguinal hernia Abdominal pain Change in bowel habit Hernia Chief Complaint 1 m fu (request PFM) CONCERN FOR SINUS INFECTION Urinary tract infection Stomach Pain Hernia ABD PAIN MASS E-ORDER 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 Reason for Visit Cardiac dysrhythmia, unspecified Carotid artery stenosis Essential hypertension S/P TAVR (transcatheter aortic valve replacement) CLL (chronic lymphocytic leukemia) Acute sinusitis Cystitis UTI (urinary tract infection) Right inguinal hernia Abdominal pain Change in bowel habit Hernia Peritonitis Chief Complaint 1 m fu (request PFM) CONCERN FOR SINUS INFECTION Urinary tract infection Stomach Pain Hernia ABD PAIN MASS E-ORDER 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 PERITONITIS PERITONITIS Reason for Visit Cardiac dysrhythmia, unspecified Carotid artery stenosis Essential hypertension S/P TAVR (transcatheter aortic valve replacement) CLL (chronic lymphocytic leukemia) Acute sinusitis Cystitis UTI (urinary tract infection) Right inguinal hernia Abdominal pain Change in bowel habit Hernia Ascites Peritonitis CLL (chronic lymphocytic leukemia) Chief Complaint 1 m fu (request PFM) CONCERN FOR SINUS INFECTION Urinary tract infection Stomach Pain Hernia ABD PAIN MASS E-ORDER 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 PERITONITIS PERITONITIS PERITONITIS Reason for Visit Cardiac dysrhythmia, unspecified Carotid artery stenosis Essential hypertension CLL (chronic lymphocytic leukemia) Cystitis Right inguinal hernia Abdominal pain Change in bowel habit Hernia Ascites CLL (chronic lymphocytic leukemia) Chief Complaint 1 m fu (request PFM) CONCERN FOR SINUS INFECTION Urinary tract infection Stomach Pain Hernia ABD PAIN MASS E-ORDER 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 PERITONITIS PERITONITIS PERITONITIS SOB Reason for Visit Cardiac dysrhythmia, unspecified Carotid artery stenosis Essential hypertension CLL (chronic lymphocytic leukemia) Cystitis Right inguinal hernia Abdominal pain Change in bowel habit Hernia Ascites CLL (chronic lymphocytic leukemia) Chief Complaint 1 m fu (request PFM) CONCERN FOR SINUS INFECTION Urinary tract infection Stomach Pain Hernia ABD PAIN MASS E-ORDER 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 PERITONITIS PERITONITIS PERITONITIS SOB Hospital FU HYPOXIA, MALIGNANT PLEURAL EFFUSION, MALIGNANT Reason for Visit Cardiac dysrhythmia, unspecified Carotid artery stenosis Essential hypertension CLL (chronic lymphocytic leukemia) Cystitis Right inguinal hernia Abdominal pain Change in bowel habit Hernia Ascites CLL (chronic lymphocytic leukemia) Dyspnea Essential hypertension History of transcatheter aortic valve replacement (TAVR) Leg edema Malignant ascites Pleural effusion CLL (chronic lymphocytic leukemia) Abdominal ascites Abdominal mass Acute kidney insufficiency Bilateral pleural effusion Elevated CA-125 Hypoxia Malignant ascites CLL (chronic lymphocytic leukemia) Chief Complaint CONCERN FOR SINUS IN FECTION Urinary tract infection Stomach Pain Hernia ABD PAIN MASS E-ORDER 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 PERITONITIS PERITONITIS PERITONITIS SOB Hospital FU HYPOXIA, MALIGNANT PLEURAL EFFUSION, MALIGNANT HYPOXIA, MALIGNANT PLEURAL EFFUSION, MALIGNANT HYPOXIA, MALIGNANT PLEURAL EFFUSION, MALIGNANT HYPOXIA, MALIGNANT PLEURAL EFFUSION, MALIGNANT HYPOXIA, MALIGNANT PLEURAL EFFUSION, MALIGNANT HYPOXIA, MALIGNANT PLEURAL EFFUSION, MALIGNANT HYPOXIA, MALIGNANT PLEURAL EFFUSION, MALIGNANT HYPOXIA, MALIGNANT PLEURAL EFFUSION, MALIGNANT HYPOXIA, MALIGNANT PLEURAL EFFUSION, MALIGNANT HYPOXIA, MALIGNANT PLEURAL EFFUSION, MALIGNANT HYPOXIA, MALIGNANT PLEURAL EFFUSION, MALIGNANT Reason for Visit Cystitis Right inguinal hernia Abdominal pain Change in bowel habit Hernia Ascites CLL (chronic lymphocytic leukemia) Essential hypertension History of transcatheter aortic valve replacement (TAVR) Leg edema Malignant ascites CLL (chronic lymphocytic leukemia) Abdominal ascites Abdominal mass Acute kidney insufficiency RINA (acute kidney injury) Bilateral pleural effusion Elevated CA-125 Hypoalbuminemia Hypotension Hypoxia Malignant ascites Pelvic mass CLL (chronic lymphocytic leukemia) Chief Complaint CONCERN FOR SINUS IN FECTION Urinary tract infection Stomach Pain Hernia ABD PAIN MASS E-ORDER 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 PERITONITIS PERITONITIS PERITONITIS SOB Hospital FU HYPOXIA, MALIGNANT PLEURAL EFFUSION, MALIGNANT HYPOXIA, MALIGNANT PLEURAL EFFUSION, MALIGNANT HYPOXIA, MALIGNANT PLEURAL EFFUSION, MALIGNANT HYPOXIA, MALIGNANT PLEURAL EFFUSION, MALIGNANT HYPOXIA, MALIGNANT PLEURAL EFFUSION, MALIGNANT HYPOXIA, MALIGNANT PLEURAL EFFUSION, MALIGNANT CP HYPOXIA, MALIGNANT PLEURAL EFFUSION, MALIGNANT HYPOXIA, MALIGNANT PLEURAL EFFUSION, MALIGNANT HYPOXIA, MALIGNANT PLEURAL EFFUSION, MALIGNANT HYPOXIA, MALIGNANT PLEURAL EFFUSION, MALIGNANT HYPOXIA, MALIGNANT PLEURAL EFFUSION, MALIGNANT 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 type not velez Reason for Visit Cystitis Right inguinal hernia Abdominal pain Change in bowel habit Hernia Ascites CLL (chronic lymphocytic leukemia) Essential hypertension History of transcatheter aortic valve replacement (TAVR) Leg edema Malignant ascites CLL (chronic lymphocytic leukemia) Abdominal ascites Bilateral pleural effusion Elevated CA-125 Hypoxia Malignant ascites Pelvic mass CLL (chronic lymphocytic leukemia) RINA (acute kidney injury) Chief Complaint CONCERN FOR SINUS IN FECTION Urinary tract infection Stomach Pain Hernia ABD PAIN MASS E-ORDER 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 PERITONITIS PERITONITIS PERITONITIS SOB Hospital FU HYPOXIA, MALIGNANT PLEURAL EFFUSION, MALIGNANT HYPOXIA, MALIGNANT PLEURAL EFFUSION, MALIGNANT HYPOXIA, MALIGNANT PLEURAL EFFUSION, MALIGNANT HYPOXIA, MALIGNANT PLEURAL EFFUSION, MALIGNANT HYPOXIA, MALIGNANT PLEURAL EFFUSION, MALIGNANT HYPOXIA, MALIGNANT PLEURAL EFFUSION, MALIGNANT CP HYPOXIA, MALIGNANT PLEURAL EFFUSION, MALIGNANT HYPOXIA, MALIGNANT PLEURAL EFFUSION, MALIGNANT HYPOXIA, MALIGNANT PLEURAL EFFUSION, MALIGNANT HYPOXIA, MALIGNANT PLEURAL EFFUSION, MALIGNANT HYPOXIA, MALIGNANT PLEURAL EFFUSION, MALIGNANT 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 type not velez Reason for Visit Cystitis Right inguinal hernia Abdominal pain Change in bowel habit Hernia Ascites CLL (chronic lymphocytic leukemia) Essential hypertension History of transcatheter aortic valve replacement (TAVR) Leg edema Malignant ascites CLL (chronic lymphocytic leukemia) Abdominal ascites Bilateral pleural effusion Elevated CA-125 Hypoxia Malignant ascites Pelvic mass CLL (chronic lymphocytic leukemia) RINA (acute kidney injury) Chief Complaint Urinary tract infect ion Stomach Pain Hernia ABD PAIN MASS E-ORDER 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 PERITONITIS PERITONITIS PERITONITIS SOB Hospital FU HYPOXIA, MALIGNANT PLEURAL EFFUSION, MALIGNANT HYPOXIA, MALIGNANT PLEURAL EFFUSION, MALIGNANT HYPOXIA, MALIGNANT PLEURAL EFFUSION, MALIGNANT HYPOXIA, MALIGNANT PLEURAL EFFUSION, MALIGNANT HYPOXIA, MALIGNANT PLEURAL EFFUSION, MALIGNANT HYPOXIA, MALIGNANT PLEURAL EFFUSION, MALIGNANT CP HYPOXIA, MALIGNANT PLEURAL EFFUSION, MALIGNANT HYPOXIA, MALIGNANT PLEURAL EFFUSION, MALIGNANT HYPOXIA, MALIGNANT PLEURAL EFFUSION, MALIGNANT HYPOXIA, MALIGNANT PLEURAL EFFUSION, MALIGNANT HYPOXIA, MALIGNANT PLEURAL EFFUSION, MALIGNANT 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 . 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 PERITONITIS PERITONITIS PERITONITIS SOB Hospital FU HYPOXIA, MALIGNANT PLEURAL EFFUSION, MALIGNANT HYPOXIA, MALIGNANT PLEURAL EFFUSION, MALIGNANT HYPOXIA, MALIGNANT PLEURAL EFFUSION, MALIGNANT HYPOXIA, MALIGNANT PLEURAL EFFUSION, MALIGNANT HYPOXIA, MALIGNANT PLEURAL EFFUSION, MALIGNANT HYPOXIA, MALIGNANT PLEURAL EFFUSION, MALIGNANT CP HYPOXIA, MALIGNANT PLEURAL EFFUSION, MALIGNANT HYPOXIA, MALIGNANT PLEURAL EFFUSION, MALIGNANT HYPOXIA, MALIGNANT PLEURAL EFFUSION, MALIGNANT HYPOXIA, MALIGNANT PLEURAL EFFUSION, MALIGNANT HYPOXIA, MALIGNANT PLEURAL EFFUSION, MALIGNANT 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 . CHEST PAIN UTERINE CARCINOMA, LEG SWELLING Reason for Visit Right inguinal herni a Abdominal pain Change in bowel habit Hernia Ascites CLL (chronic lymphocytic leukemia) Essential hypertension History of transcatheter aortic valve replacement (TAVR) Leg edema Malignant ascites CLL (chronic lymphocytic leukemia) Abdominal ascites Bilateral pleural effusion Elevated CA-125 Hypoxia Malignant ascites Pelvic mass RINA (acute kidney injury) Recurrent right pleural effusion Chief Complaint 6 M FU eorders Reason for Visit Essential hypertensi on History of transcatheter aortic valve replacement (TAVR) Hypothyroidism Uterine cancer CLL (chronic lymphocytic leukemia) Chief Complaint Sinus Congestion, So re Throat, Earache E ORDERS Reason for Visit History of transcath eter aortic valve replacement (TAVR) Hypothyroidism Need for influenza vaccination URI (upper respiratory infection) Uterine cancer CLL (chronic lymphocytic leukemia) Chief Complaint E ORDERS CONCERN FOR SHINGLES Possible Poison Harriett E ORDERS Reason for Visit Pruritic condition Contact dermatitis Essential hypertension History of transcatheter aortic valve replacement (TAVR) Hypothyroidism Uterine cancer CKD (chronic kidney disease) Chief Complaint Admit Date Arm Redness, Nausea July 09, 2024 2:3 2pm NAUSEA/BA/FEVER August 25, 2024 4:25p m Reason for Visit Admit Date Essential hypertension July 09, 2024 2:32pm Groin discomfort July 09, 2024 2:3 2pm Right inguinal hernia July 09, 2024 2 :32pm CKD (chronic kidney disease) July 09, 2024 2:32pm CLL (chronic lymphocytic leukemia) July 09, 2024 2:32pm Chief Complaint Admit Date Arm Redness, Nausea July 09, 2024 2:3 2pm NAUSEA/BA/FEVER August 25, 2024 4:25p m CONCERN FOR SINUS INFECTION October 16 025 10:41am Reason for Visit Admit Date Essential hypertension July 09, 2024 2:32pm Groin discomfort July 09, 2024 2:3 2pm Right inguinal hernia July 09, 2024 2 :32pm CKD (chronic kidney disease) July 09, 2024 2:32pm CLL (chronic lymphocytic leukemia) July 09, 2024 2:32pm Acute sinusitis October 16, 2024 10:4 1am Family History No Family History Records Found Relationship Condition Age at Onset Recorded Date/T jo Not Specified Malignant neoplasm of colon Unknown Diabetes mellitus Unknown Myocardial infarction Unknown Advance Directives No Advanced Directives Records Found Advance Directive Response Recorded Date/ Time Advance Directives No September 29 8:46am Living Will No September 29, 2021 8 :46am Power of Revolving Inventory Clerk No September 29, 2021 8:46am Advance Directive Response Recorded Date/ Time Advance Directives No September 29 7:46am Living Will No September 29, 2021 7 :46am Power of Revolving Inventory Clerk No September 29, 2021 7:46am Advance Directive Response Recorded Date/ Time Advance Directives No April 03, 2022 10:10am Living Will No April 03 10:10am Power of Revolving Inventory Clerk No April 03 10:10am Advance Directive Response Recorded Date/ Time Advance Directives No April 03, 2022 10:10am Living Will No April 28 11:17am Power of Revolving Inventory Clerk No April 28, 2022 11:17am Advance Directive Response Recorded Date/ Time Advance Directives No April 03, 2022 10:10am Living Will No April 28 12:43pm Power of Revolving Inventory Clerk No April 28, 2022 12:43pm Advance Directive Response Recorded Date/ Time Advance Directives No April 03, 2022 10:10am Living Will No May 20 023 1:54pm Power of Revolving Inventory Clerk No May 20, 2022 1:54pm Advance Directive Response Recorded Date/ Time Advance Directives No April 03, 2022 10:10am Living Will No May 24 12:39pm Power of Revolving Inventory Clerk No May 24, 2022 12:39pm Advance Directive Response Recorded Date/ Time Name of Medical Power of Revolving Inventory Clerk Giovanna Randall r May 24, 2022 4:44pm Advance Directives No April 03, 2022 10:10am Living Will Yes May 24 4:44pm Power of Revolving Inventory Clerk Yes May 24, 2022 4:44pm Advance Directive Response Recorded Date/ Time Name of Medical Power of Revolving Inventory Clerk Giovanna Randall r May 24, 2022 5:44pm Advance Directives No April 03, 2022 11:10am Living Will Yes May 24 5:44pm Power of Revolving Inventory Clerk Yes May 24, 2022 5:44pm Advance Directive Response Recorded Date/ Time Name of Medical Power of Revolving Inventory Clerk Giovanna Randall r May 24, 2022 5:44pm Advance Directives No April 03, 2022 11:10am Living Will No June 29, 2022 8:49pm Power of Revolving Inventory Clerk No June 29 8:49pm Advance Directive Response Recorded Date/ Time Advance Directives No April 03, 2022 11:10am Living Will No June 29, 2022 8:49pm Power of Revolving Inventory Clerk No June 29 8:49pm Advance Directive Response Recorded Date/ Time Advance Directives No November 8:24am Living Will No December 19, 2022 8:24am Power of Revolving Inventory Clerk No November 8:24am Advance Directive Response Recorded Date/ Time Advance Directives No July 17 8:58am Living Will No July 18, 2023 8:58am Power of Revolving Inventory Clerk No July 17 8:58am Advance Directive Response Recorded Date/ Time Advance Directives No July 17 8:58am Reason for Referral Specialty Diagnoses / Procedures Referred By Contac t Referred To Contact CT IMAGING Diagnoses Encounter for preprocedural cardiovascular examination Aortic valve disorder Procedures CTA CHEST/ABD/PEL (GATED) W IVCON CT ANGIOGRAPHY CHEST W/CONTRAST/NONCONTRAST CT ANGIO ABD&PLVIS CNTRST MTRL W/WO CNTRST Janneth Fuller, MULTICUT LINE OPERATOR.[facility] [address] [place] [address] Ct Imaging Referral ID Status Reason Start Date Expiration Date V isits Requested Visits Authorized [id number] Closed Auto-Generated Referral Financial Clearance Not Required 10/11/2021 03/31/2022 1 1 Specialty Diagnoses / Procedures Referred By Contac t Referred To Contact Diagnoses Uterine leiomyoma, unspecified location Elevated cancer antigen 125 (CA-125) Other ascites Procedures CONSULT TO GYNECOLOGIC/ONCOLOGY OFFICE/OUTPATIENT [facility] 60-74 MINUTES Emily Jacobs MD [address] [place] [address] reganKhadijah Euceda MD [address] [facility] [address] [place] [address] Referral ID Status Reason Start Date Expiration Date Visits Requested Visits Authorized [id number] Authorized PCP Requested Referral Auto-Generate d Referral 04/13/2022 04/13/2023 1 1 Specialty Diagnoses / Procedures Referred By Contac t Referred To Contact CT IMAGING Diagnoses Lung nodules Procedures CT CHEST W IVCON DIAGNOSTIC COMPUTED TOMOGRAPHY THORAX W/CONTRAST Samra Cee APRN.STORE LOSS PREVENTION MANAGER [address] [place] [address] Ct Imaging Referral ID Status Reason Start Date Expiration Date Visits Requested Visits Authorized [id number] Pending Review Auto-Generat ed Referral 04/23/2022 05/23/2023 1 1 Specialty Diagnoses / Procedures Referred By Contac t Referred To Contact CT IMAGING Diagnoses Carcinosarcoma (HCC) Procedures CT CHEST W IVCON DIAGNOSTIC COMPUTED TOMOGRAPHY THORAX W/CONTRAST Samra Cee APRN.STORE LOSS PREVENTION MANAGER [address] [place] [address] Ct Imaging Referral ID Status Reason Start Date Expiration Date Visits Requested Visits Authorized [id number] Pending Review Auto-Generat ed Referral 09/05/2022 07/05/2023 1 1 Specialty Diagnoses / Procedures Referred By Contac t Referred To Contact CT IMAGING Diagnoses Carcinosarcoma (HCC) Procedures CT ABD/PEL W IVCON CT ABD & PELVIS W/CONTRAST Samra Cee APRN.STORE LOSS PREVENTION MANAGER [id number] Imaging Referral ID Status Reason Start Date Expiration Date Visits Requested Visits Authorized [id number] Pending Review Auto-Generat ed Referral 09/05/2022 07/05/2023 1 1 Specialty Diagnoses / Procedures Referred By Contac t Referred To Contact CT IMAGING Diagnoses 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) Procedures CT ABD/PEL W IVCON CT ABD & PELVIS W/CONTRAST Ruddy Patricio, DO [address] [place] [address] [place] [address] Referral ID Status Reason Start Date Expiration Date Visits Requested Visits Authorized [id number] Authorized Auto-Generat ed Referral 04/13/2024 05/13/2025 1 1 Specialty Diagnoses / Procedures Referred By Contac t Referred To Contact CT IMAGING Diagnoses 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) Procedures CT CHEST WO IVCON DIAGNOSTIC COMPUTED TOMOGRAPHY THORAX W/O CNTRST Ruddy Patricio, DO [address] [place] [address] [place] [address] Referral ID Status Reason Start Date Expiration Date Visits Requested Visits Authorized [id number] Authorized Auto-Generat ed Referral 04/13/2024 05/13/2025 1 1 Health Concerns Infection Onset Date Last Indicated Resolved Time COVID-19 Rule-Out 12/13/2021 12/13/2021 12/13/2021 3:55 PM EDT Summary Purpose Medications Administered Section Inactive Administered Medications - up to 3 most recent administrations Medication Order MAR Action Action Date Dose Rate Site lidocaine (PF) 20 mg/mL (2 %) injection (XYLOCAINE) INTRADERMAL, X (OR/PROCEDURE) PRN, Starting on Sat04/27/22 at 1021, Until Sat04/27/22 at 1021, Intraprocedure Given 04/27/2022 10:21 AM EST 10 mL Abdomen, LLQ Inactive Administered Medications - up to 3 most recent administrations Medication Order MAR Action Action Date Dose Rate Site dexAMETHasone 20 mg in 0.9% NaCl 50 mL (DECADRON) 20 mg, INTRAVENOUS, Administer over 15 Minutes, ONCE, 1 dose, On Sat06/13/22 at 1400, Give prior to chemotherapy. Refrigerate. New Bag/Syringe/Bottle 06/13/2022 1:55 PM EDT 20 mg diphenhydrAMINE 50 mg injection (BENADRYL) 50 mg, INTRAVENOUS, ONCE, 1 dose, On Sat06/13/22 at 1400, Give prior to chemotherapy. Given 06/13/2022 1:51 PM EDT 50 mg famotidine 20 mg injection (PEPCID) 20 mg, INTRAVENOUS, ONCE, 1 dose, On Sat06/13/22 at 1400, Give prior to chemotherapy. REFRIGERATE Given 06/13/2022 1:53 PM EDT 20 mg PACLitaxel 117.6 mg in NaCl 0.9% 294.6 mL (TAXOL) 117.6 mg (80 mg/m2 1.47 m2 Treatment Plan BSA from Recorded weight), INTRAVENOUS, Administer over 1 Hours, ONCE, 1 dose, On Sat06/13/22 at 1400, exp 1600 06/14/22 (room temp) . Hazardous Chemotherapy Drug: Use appropriate PPE. Antineoplastic Irritant with Vesicant Potential. Administer with non-DEHP 0.2 micron filter and tubing. New Bag/Syringe/Bottle 06/13/2022 2:11 PM EDT 117.6 mg Inactive Administered Medications - up to 3 most recent administrations Medication Order MAR Action Action Date Dose Rate Site CARBOplatin 300.5 mg in NaCl 0.9% 305.05 mL (PARAPLATIN) 300.5 mg (Target AUC = 5), INTRAVENOUS, Administer over 30 Minutes, ONCE, 1 dose, On Sat06/27/22 at 0930, exp 1000 06/28/22 (room temp) Hazardous Chemotherapy Drug: Use appropriate PPE. Antineoplastic Irritant. New Bag/Syringe/Bottle 06/27/2022 10:47 AM EDT 300.5 mg dexAMETHasone 10 mg/NS 50 mL (PYXIS) 10 mg ivpb (DECADRON) 10 mg, INTRAVENOUS, ONCE, 1 dose, On Sat06/27/22 at 0900, Administer 30 minutes prior to infusion. Refrigerate. New Bag/Syringe/Bottle 06/27/2022 9:16 AM EDT 10 mg diphenhydrAMINE 50 mg injection (BENADRYL) 50 mg, INTRAVENOUS, ONCE, 1 dose, On Sat06/27/22 at 0900, Give prior to chemotherapy. Given 06/27/2022 9:16 AM EDT 50 mg famotidine 20 mg injection (PEPCID) 20 mg, INTRAVENOUS, ONCE, 1 dose, On Sat06/27/22 at 0900, Give prior to chemotherapy. REFRIGERATE Given 06/27/2022 9:17 AM EDT 20 mg ondansetron (PF) 8 mg injection (ZOFRAN) 8 mg, INTRAVENOUS, ONCE, 1 dose, On Sat06/27/22 at 0900, Administer 30 minutes prior to infusion. Given 06/27/2022 9:16 AM EDT 8 mg PACLitaxel 114.42 mg in NaCl 0.9% 294.07 mL (TAXOL) 114.42 mg (rounded from 114.4 mg = 80 mg/m2 1.43 m2 Treatment Plan BSA from Recorded weight), INTRAVENOUS, Administer over 1 Hours, ONCE, 1 dose, On Sat06/27/22 at 0900, exp 07/05/22 (refrigerated) Hazardous Chemotherapy Drug: Use appropriate PPE. Antineoplastic Irritant with Vesicant Potential. Administer with non-DEHP 0.2 micron filter and tubing. New Bag/Syringe/Bottle 06/27/2022 9:41 AM EDT 114.42 mg Inactive Administered Medications - up to 3 most recent administrations Medication Order MAR Action Action Date Dose Rate Site dexAMETHasone 10 mg/NS 50 mL (PYXIS) 10 mg ivpb (DECADRON) 10 mg, INTRAVENOUS, ONCE, 1 dose, On Sat07/04/22 at 0900, Administer 30 minutes prior to infusion. Refrigerate. New Bag/Syringe/Bottle 07/04/2022 9:28 AM EDT 10 mg diphenhydrAMINE 12.5 mg injection (BENADRYL) 12.5 mg, INTRAVENOUS, ONCE, 1 dose, On Sat07/04/22 at 0900, Give prior to chemotherapy. Given 07/04/2022 9:23 AM EDT 12.5 mg famotidine 20 mg injection (PEPCID) 20 mg, INTRAVENOUS, ONCE, 1 dose, On Sat07/04/22 at 0900, Give prior to chemotherapy. REFRIGERATE Given 07/04/2022 9:25 AM EDT 20 mg PACLitaxel 114.42 mg in NaCl 0.9% 294.07 mL (TAXOL) 114.42 mg (rounded from 114.4 mg = 80 mg/m2 1.43 m2 Treatment Plan BSA from Recorded weight), INTRAVENOUS, Administer over 1 Hours, ONCE, 1 dose, On Sat07/04/22 at 0900, 07/12/22 (refrigerated) Hazardous Chemotherapy Drug: Use appropriate PPE. Antineoplastic Irritant with Vesicant Potential. Administer with non-DEHP 0.2 micron filter and tubing. New Bag/Syringe/Bottle 07/04/2022 9:50 AM EDT 114.42 mg Inactive Administered Medications - up to 3 most recent administrations Medication Order MAR Action Action Date Dose Rate Site CARBOplatin 300.5 mg in NaCl 0.9% 305.05 mL (PARAPLATIN) 300.5 mg (Target AUC = 5), INTRAVENOUS, Administer over 30 Minutes, ONCE, 1 dose, On Sat07/25/22 at 0930, exp 92907/26/22 (room temp) Hazardous Chemotherapy Drug: Use appropriate PPE. Antineoplastic Irritant. New Bag/Syringe/Bottle 07/25/2022 10:37 AM EDT 300.5 mg dexAMETHasone 10 mg/NS 50 mL (PYXIS) 10 mg ivpb (DECADRON) 10 mg, INTRAVENOUS, ONCE, 1 dose, On Sat07/25/22 at 0830, Administer 30 minutes prior to infusion. Refrigerate. New Bag/Syringe/Bottle 07/25/2022 8:40 AM EDT 10 mg diphenhydrAMINE 12.5 mg injection (BENADRYL) 12.5 mg, INTRAVENOUS, ONCE, 1 dose, On Sat07/25/22 at 0830, Give prior to chemotherapy. Given 07/25/2022 8:40 AM EDT 12.5 mg famotidine 20 mg injection (PEPCID) 20 mg, INTRAVENOUS, ONCE, 1 dose, On Sat07/25/22 at 0830, Give prior to chemotherapy. REFRIGERATE Given 07/25/2022 8:40 AM EDT 20 mg ondansetron (PF) 8 mg injection (ZOFRAN) 8 mg, INTRAVENOUS, ONCE, 1 dose, On Sat07/25/22 at 0830, Administer 30 minutes prior to infusion. Given 07/25/2022 8:40 AM EDT 8 mg PACLitaxel 114.42 mg in NaCl 0.9% 294.07 mL (TAXOL) 114.42 mg (rounded from 114.4 mg = 80 mg/m2 1.43 m2 Treatment Plan BSA from Recorded weight), INTRAVENOUS, Administer over 1 Hours, ONCE, 1 dose, On Sat07/25/22 at 0830, exp 159907/26/22 (room temp) Hazardous Chemotherapy Drug: Use appropriate PPE. Antineoplastic Irritant with Vesicant Potential. Administer with non-DEHP 0.2 micron filter and tubing. New Bag/Syringe/Bottle 07/25/2022 9:16 AM EDT 114.42 mg Inactive Administered Medications - up to 3 most recent administrations Medication Order MAR Action Action Date Dose Rate Site dexAMETHasone 10 mg/NS 50 mL (PYXIS) 10 mg ivpb (DECADRON) 10 mg, INTRAVENOUS, ONCE, 1 dose, On Sat08/01/22 at 0930, Administer 30 minutes prior to infusion. Refrigerate. New Bag/Syringe/Bottle 08/01/2022 9:16 AM EDT 10 mg diphenhydrAMINE 12.5 mg injection (BENADRYL) 12.5 mg, INTRAVENOUS, ONCE, 1 dose, On Sat08/01/22 at 0930, Give prior to chemotherapy. Given 08/01/2022 9:16 AM EDT 12.5 mg famotidine 20 mg injection (PEPCID) 20 mg, INTRAVENOUS, ONCE, 1 dose, On Sat08/01/22 at 0930, Give prior to chemotherapy. REFRIGERATE Given 08/01/2022 9:16 AM EDT 20 mg PACLitaxel 114.42 mg in NaCl 0.9% 294.07 mL (TAXOL) 114.42 mg (rounded from 114.4 mg = 80 mg/m2 1.43 m2 Treatment Plan BSA from Recorded weight), INTRAVENOUS, Administer over 1 Hours, ONCE, 1 dose, On Sat08/01/22 at 0930, exp 08/07/22 (refrigerated) Hazardous Chemotherapy Drug: Use appropriate PPE. Antineoplastic Irritant with Vesicant Potential. Administer with non-DEHP 0.2 micron filter and tubing. New Bag/Syringe/Bottle 08/01/2022 9:36 AM EDT 114.42 mg Inactive Administered Medications - up to 3 most recent administrations Medication Order MAR Action Action Date Dose Rate Site CARBOplatin 250 mg in NaCl 0.9% 300 mL (PARAPLATIN) 250 mg (rounded from 271 mg, Target AUC = 5), INTRAVENOUS, Administer over 30 Minutes, ONCE, 1 dose, On Sat11/13/22 at 0830, exp 0911/14/22 (room temp) Hazardous Chemotherapy Drug: Use appropriate PPE. Antineoplastic Irritant. New Bag/Syringe/Bottle 11/13/2022 10:25 AM EDT 250 mg dexAMETHasone 10 mg/NS 50 mL (PYXIS) 10 mg ivpb (DECADRON) 10 mg, INTRAVENOUS, ONCE, 1 dose, On Sat11/13/22 at 0830, Administer 30 minutes prior to infusion. Refrigerate. New Bag/Syringe/Bottle 11/13/2022 8:46 AM EDT 10 mg diphenhydrAMINE 12.5 mg injection (BENADRYL) 12.5 mg, INTRAVENOUS, ONCE, 1 dose, On Sat11/13/22 at 0830, Give prior to chemotherapy. Given 11/13/2022 8:37 AM EDT 12.5 mg famotidine 20 mg injection (PEPCID) 20 mg, INTRAVENOUS, ONCE, 1 dose, On Sat11/13/22 at 0830, Give prior to chemotherapy. REFRIGERATE Given 11/13/2022 8:43 AM EDT 20 mg ondansetron (PF) 8 mg injection (ZOFRAN) 8 mg, INTRAVENOUS, ONCE, 1 dose, On Sat11/13/22 at 0830, Administer 30 minutes prior to infusion. Given 11/13/2022 8:39 AM EDT 8 mg PACLitaxel 114.4 mg in NaCl 0.9% 294.0667 mL (TAXOL) 114.4 mg (80 mg/m2 1.43 m2 Treatment Plan BSA from Recorded weight), INTRAVENOUS, Administer over 1 Hours, ONCE, 1 dose, On Sat11/13/22 at 0830, exp 11/22/22 (refrigerated) Hazardous Chemotherapy Drug: Use appropriate PPE. Antineoplastic Irritant with Vesicant Potential. Administer with non-DEHP 0.2 micron filter and tubing. New Bag/Syringe/Bottle 11/13/2022 9:13 AM EDT 114.4 mg Inactive Administered Medications - up to 3 most recent administrations Medication Order MAR Action Action Date Dose Rate Site CARBOplatin 250 mg in NaCl 0.9% 300 mL (PARAPLATIN) 250 mg (rounded from 271 mg, Target AUC = 5), INTRAVENOUS, Administer over 30 Minutes, ONCE, 1 dose, On Sat12/05/22 at 1000, exp 1000 12/06/22 (room temp) Hazardous Chemotherapy Drug: Use appropriate PPE. Antineoplastic Irritant. New Bag/Syringe/Bottle 12/05/2022 11:37 AM EDT 250 mg dexAMETHasone 10 mg in NaCl 0.9% 50 mL (DECADRON) 10 mg, INTRAVENOUS, ONCE, 1 dose, On Sat12/05/22 at 1000, Administer 30 minutes prior to infusion. Refrigerate. New Bag/Syringe/Bottle 12/05/2022 9:57 AM EDT 10 mg diphenhydrAMINE 12.5 mg injection (BENADRYL) 12.5 mg, INTRAVENOUS, ONCE, 1 dose, On Sat12/05/22 at 1000, Give prior to chemotherapy. Given 12/05/2022 9:54 AM EDT 12.5 mg famotidine 20 mg injection (PEPCID) 20 mg, INTRAVENOUS, ONCE, 1 dose, On Sat12/05/22 at 1000, Give prior to chemotherapy. REFRIGERATE Given 12/05/2022 9:54 AM EDT 20 mg ondansetron (PF) 8 mg injection (ZOFRAN) 8 mg, INTRAVENOUS, ONCE, 1 dose, On Sat12/05/22 at 1000, Administer 30 minutes prior to infusion. Given 12/05/2022 9:54 AM EDT 8 mg PACLitaxel 114.4 mg in NaCl 0.9% 294.0667 mL (TAXOL) 114.4 mg (80 mg/m2 1.43 m2 Treatment Plan BSA from Recorded weight), INTRAVENOUS, Administer over 1 Hours, ONCE, 1 dose, On Sat12/05/22 at 1000, exp 1600 12/06/22 (room temp) Hazardous Chemotherapy Drug: Use appropriate PPE. Antineoplastic Irritant with Vesicant Potential. Administer with non-DEHP 0.2 micron filter and tubing. New Bag/Syringe/Bottle 12/05/2022 10:25 AM EDT 114.4 mg Additional Source Comments Goals (unrecognized section and content) Goals may be documented in a n alternate sectionGoals may be documented in an alternate sectionGoals may be documented in an alternate sectionGoals may be documented in an alternate sectionGoals may be documented in an alternate sectionGoals may be documented in an alternate sectionGoals may be documented in an alternate sectionGoals may be documented in an alternate sectionGoals may be documented in an alternate sectionGoals may be documented in an alternate sectionGoals may be documented in an alternate sectionGoals may be documented in an alternate sectionGoals may be documented in an alternate sectionGoals may be documented in an alternate sectionGoals may be documented in an alternate section Source Comments (unrecognize d section and content) In the event this informatio n is protected by the Federal Confidentiality of Alcohol and Drug Abuse Patient Records regulations: The Federal rules restrict any use of the information to criminally investigate or prosecute any alcohol or drug abuse patient.[facility] the event this information is protected by the Federal Confidentiality of Alcohol and Drug Abuse Patient Records regulations: The Federal rules restrict any use of the information to criminally investigate or prosecute any alcohol or drug abuse patient.[facility]In the event this information is protected by the Federal Confidentiality of Alcohol and Drug Abuse Patient Records regulations: The Federal rules restrict any use of the information to criminally investigate or prosecute any alcohol or drug abuse patient.[facility]In the event this information is protected by the Federal Confidentiality of Alcohol and Drug Abuse Patient Records regulations: The Federal rules restrict any use of the information to criminally investigate or prosecute any alcohol or drug abuse patient.[facility]In the event this information is protected by the Federal Confidentiality of Alcohol and Drug Abuse Patient Records regulations: The Federal rules restrict any use of the information to criminally investigate or prosecute any alcohol or drug abuse patient.[facility]In the event this information is protected by the Federal Confidentiality of Alcohol and Drug Abuse Patient Records regulations: The Federal rules restrict any use of the information to criminally investigate or prosecute any alcohol or drug abuse patient.[facility]In the event this information is protected by the Federal Confidentiality of Alcohol and Drug Abuse Patient Records regulations: The Federal rules restrict any use of the information to criminally investigate or prosecute any alcohol or drug abuse patient.[facility] HospitalIn the event this information is protected by the Federal Confidentiality of Alcohol and Drug Abuse Patient Records regulations: The Federal rules restrict any use of the information to criminally investigate or prosecute any alcohol or drug abuse patient.[facility] HospitalIn the event this information is protected by the Federal Confidentiality of Alcohol and Drug Abuse Patient Records regulations: The Federal rules restrict any use of the information to criminally investigate or prosecute any alcohol or drug abuse patient.[facility] HospitalIn the event this information is protected by the Federal Confidentiality of Alcohol and Drug Abuse Patient Records regulations: The Federal rules restrict any use of the information to criminally investigate or prosecute any alcohol or drug abuse patient.[facility] HospitalIn the event this information is protected by the Federal Confidentiality of Alcohol and Drug Abuse Patient Records regulations: The Federal rules restrict any use of the information to criminally investigate or prosecute any alcohol or drug abuse patient.[facility] HospitalIn the event this information is protected by the Federal Confidentiality of Alcohol and Drug Abuse Patient Records regulations: The Federal rules restrict any use of the information to criminally investigate or prosecute any alcohol or drug abuse patient.[facility] HospitalIn the event this information is protected by the Federal Confidentiality of Alcohol and Drug Abuse Patient Records regulations: The Federal rules restrict any use of the information to criminally investigate or prosecute any alcohol or drug abuse patient.[facility] HospitalIn the event this information is protected by the Federal Confidentiality of Alcohol and Drug Abuse Patient Records regulations: The Federal rules restrict any use of the information to criminally investigate or prosecute any alcohol or drug abuse patient.[facility] HospitalIn the event this information is protected by the Federal Confidentiality of Alcohol and Drug Abuse Patient Records regulations: The Federal rules restrict any use of the information to criminally investigate or prosecute any alcohol or drug abuse patient.[facility] HospitalIn the event this information is protected by the Federal Confidentiality of Alcohol and Drug Abuse Patient Records regulations: The Federal rules restrict any use of the information to criminally investigate or prosecute any alcohol or drug abuse patient.[facility] HospitalIn the event this information is protected by the Federal Confidentiality of Alcohol and Drug Abuse Patient Records regulations: The Federal rules restrict any use of the information to criminally investigate or prosecute any alcohol or drug abuse patient.[facility] HospitalIn the event this information is protected by the Federal Confidentiality of Alcohol and Drug Abuse Patient Records regulations: The Federal rules restrict any use of the information to criminally investigate or prosecute any alcohol or drug abuse patient.[facility] HospitalIn the event this information is protected by the Federal Confidentiality of Alcohol and Drug Abuse Patient Records regulations: The Federal rules restrict any use of the information to criminally investigate or prosecute any alcohol or drug abuse patient.[facility] HospitalIn the event this information is protected by the Federal Confidentiality of Alcohol and Drug Abuse Patient Records regulations: The Federal rules restrict any use of the information to criminally investigate or prosecute any alcohol or drug abuse patient.[facility] HospitalIn the event this information is protected by the Federal Confidentiality of Alcohol and Drug Abuse Patient Records regulations: The Federal rules restrict any use of the information to criminally investigate or prosecute any alcohol or drug abuse patient.[facility] HospitalIn the event this information is protected by the Federal Confidentiality of Alcohol and Drug Abuse Patient Records regulations: The Federal rules restrict any use of the information to criminally investigate or prosecute any alcohol or drug abuse patient.[facility] HospitalIn the event this information is protected by the Federal Confidentiality of Alcohol and Drug Abuse Patient Records regulations: The Federal rules restrict any use of the information to criminally investigate or prosecute any alcohol or drug abuse patient.[facility] HospitalIn the event this information is protected by the Federal Confidentiality of Alcohol and Drug Abuse Patient Records regulations: The Federal rules restrict any use of the information to criminally investigate or prosecute any alcohol or drug abuse patient.[facility] HospitalIn the event this information is protected by the Federal Confidentiality of Alcohol and Drug Abuse Patient Records regulations: The Federal rules restrict any use of the information to criminally investigate or prosecute any alcohol or drug abuse patient.[facility] HospitalIn the event this information is protected by the Federal Confidentiality of Alcohol and Drug Abuse Patient Records regulations: The Federal rules restrict any use of the information to criminally investigate or prosecute any alcohol or drug abuse patient.[facility] HospitalIn the event this information is protected by the Federal Confidentiality of Alcohol and Drug Abuse Patient Records regulations: The Federal rules restrict any use of the information to criminally investigate or prosecute any alcohol or drug abuse patient.[facility] HospitalIn the event this information is protected by the Federal Confidentiality of Alcohol and Drug Abuse Patient Records regulations: The Federal rules restrict any use of the information to criminally investigate or prosecute any alcohol or drug abuse patient.[facility] HospitalIn the event this information is protected by the Federal Confidentiality of Alcohol and Drug Abuse Patient Records regulations: The Federal rules restrict any use of the information to criminally investigate or prosecute any alcohol or drug abuse patient.[facility] HospitalIn the event this information is protected by the Federal Confidentiality of Alcohol and Drug Abuse Patient Records regulations: The Federal rules restrict any use of the information to criminally investigate or prosecute any alcohol or drug abuse patient.[facility] HospitalIn the event this information is protected by the Federal Confidentiality of Alcohol and Drug Abuse Patient Records regulations: The Federal rules restrict any use of the information to criminally investigate or prosecute any alcohol or drug abuse patient.[facility] HospitalIn the event this information is protected by the Federal Confidentiality of Alcohol and Drug Abuse Patient Records regulations: The Federal rules restrict any use of the information to criminally investigate or prosecute any alcohol or drug abuse patient.[facility] HospitalIn the event this information is protected by the Federal Confidentiality of Alcohol and Drug Abuse Patient Records regulations: The Federal rules restrict any use of the information to criminally investigate or prosecute any alcohol or drug abuse patient.[facility] [facility]In the event this information is protected by the Federal Confidentiality of Alcohol and Drug Abuse Patient Records regulations: The Federal rules restrict any use of the information to criminally investigate or prosecute any alcohol or drug abuse patient.[facility]In the event this information is protected by the Federal Confidentiality of Alcohol and Drug Abuse Patient Records regulations: The Federal rules restrict any use of the information to criminally investigate or prosecute any alcohol or drug abuse patient.[facility]In the event this information is protected by the Federal Confidentiality of Alcohol and Drug Abuse Patient Records regulations: The Federal rules restrict any use of the information to criminally investigate or prosecute any alcohol or drug abuse patient.[facility]In the event this information is protected by the Federal Confidentiality of Alcohol and Drug Abuse Patient Records regulations: The Federal rules restrict any use of the information to criminally investigate or prosecute any alcohol or drug abuse patient.[facility]In the event this information is protected by the Federal Confidentiality of Alcohol and Drug Abuse Patient Records regulations: The Federal rules restrict any use of the information to criminally investigate or prosecute any alcohol or drug abuse patient.[facility]In the event this information is protected by the Federal Confidentiality of Alcohol and Drug Abuse Patient Records regulations: The Federal rules restrict any use of the information to criminally investigate or prosecute any alcohol or drug abuse patient.[facility]In the event this information is protected by the Federal Confidentiality of Alcohol and Drug Abuse Patient Records regulations: The Federal rules restrict any use of the information to criminally investigate or prosecute any alcohol or drug abuse patient.[facility] HospitalIn the event this information is protected by the Federal Confidentiality of Alcohol and Drug Abuse Patient Records regulations: The Federal rules restrict any use of the information to criminally investigate or prosecute any alcohol or drug abuse patient.[facility] HospitalIn the event this information is protected by the Federal Confidentiality of Alcohol and Drug Abuse Patient Records regulations: The Federal rules restrict any use of the information to criminally investigate or prosecute any alcohol or drug abuse patient.[facility] HospitalIn the event this information is protected by the Federal Confidentiality of Alcohol and Drug Abuse Patient Records regulations: The Federal rules restrict any use of the information to criminally investigate or prosecute any alcohol or drug abuse patient.[facility]In the event this information is protected by the Federal Confidentiality of Alcohol and Drug Abuse Patient Records regulations: The Federal rules restrict any use of the information to criminally investigate or prosecute any alcohol or drug abuse patient.[facility] HospitalIn the event this information is protected by the Federal Confidentiality of Alcohol and Drug Abuse Patient Records regulations: The Federal rules restrict any use of the information to criminally investigate or prosecute any alcohol or drug abuse patient.[facility] HospitalIn the event this information is protected by the Federal Confidentiality of Alcohol and Drug Abuse Patient Records regulations: The Federal rules restrict any use of the information to criminally investigate or prosecute any alcohol or drug abuse patient.[facility] HospitalIn the event this information is protected by the Federal Confidentiality of Alcohol and Drug Abuse Patient Records regulations: The Federal rules restrict any use of the information to criminally investigate or prosecute any alcohol or drug abuse patient.[facility] HospitalIn the event this information is protected by the Federal Confidentiality of Alcohol and Drug Abuse Patient Records regulations: The Federal rules restrict any use of the information to criminally investigate or prosecute any alcohol or drug abuse patient.[facility] HospitalIn the event this information is protected by the Federal Confidentiality of Alcohol and Drug Abuse Patient Records regulations: The Federal rules restrict any use of the information to criminally investigate or prosecute any alcohol or drug abuse patient.[facility] HospitalIn the event this information is protected by the Federal Confidentiality of Alcohol and Drug Abuse Patient Records regulations: The Federal rules restrict any use of the information to criminally investigate or prosecute any alcohol or drug abuse patient.[facility] HospitalIn the event this information is protected by the Federal Confidentiality of Alcohol and Drug Abuse Patient Records regulations: The Federal rules restrict any use of the information to criminally investigate or prosecute any alcohol or drug abuse patient.[facility] HospitalIn the event this information is protected by the Federal Confidentiality of Alcohol and Drug Abuse Patient Records regulations: The Federal rules restrict any use of the information to criminally investigate or prosecute any alcohol or drug abuse patient.[facility] HospitalIn the event this information is protected by the Federal Confidentiality of Alcohol and Drug Abuse Patient Records regulations: The Federal rules restrict any use of the information to criminally investigate or prosecute any alcohol or drug abuse patient.[facility] HospitalIn the event this information is protected by the Federal Confidentiality of Alcohol and Drug Abuse Patient Records regulations: The Federal rules restrict any use of the information to criminally investigate or prosecute any alcohol or drug abuse patient.[facility] HospitalIn the event this information is protected by the Federal Confidentiality of Alcohol and Drug Abuse Patient Records regulations: The Federal rules restrict any use of the information to criminally investigate or prosecute any alcohol or drug abuse patient.[facility] HospitalIn the event this information is protected by the Federal Confidentiality of Alcohol and Drug Abuse Patient Records regulations: The Federal rules restrict any use of the information to criminally investigate or prosecute any alcohol or drug abuse patient.[facility] HospitalIn the event this information is protected by the Federal Confidentiality of Alcohol and Drug Abuse Patient Records regulations: The Federal rules restrict any use of the information to criminally investigate or prosecute any alcohol or drug abuse patient.[facility] HospitalIn the event this information is protected by the Federal Confidentiality of Alcohol and Drug Abuse Patient Records regulations: The Federal rules restrict any use of the information to criminally investigate or prosecute any alcohol or drug abuse patient.[facility] HospitalIn the event this information is protected by the Federal Confidentiality of Alcohol and Drug Abuse Patient Records regulations: The Federal rules restrict any use of the information to criminally investigate or prosecute any alcohol or drug abuse patient.[facility] HospitalIn the event this information is protected by the Federal Confidentiality of Alcohol and Drug Abuse Patient Records regulations: The Federal rules restrict any use of the information to criminally investigate or prosecute any alcohol or drug abuse patient.[facility] HospitalIn the event this information is protected by the Federal Confidentiality of Alcohol and Drug Abuse Patient Records regulations: The Federal rules restrict any use of the information to criminally investigate or prosecute any alcohol or drug abuse patient.[facility] HospitalIn the event this information is protected by the Federal Confidentiality of Alcohol and Drug Abuse Patient Records regulations: The Federal rules restrict any use of the information to criminally investigate or prosecute any alcohol or drug abuse patient.[facility] HospitalIn the event this information is protected by the Federal Confidentiality of Alcohol and Drug Abuse Patient Records regulations: The Federal rules restrict any use of the information to criminally investigate or prosecute any alcohol or drug abuse patient.[facility] HospitalIn the event this information is protected by the Federal Confidentiality of Alcohol and Drug Abuse Patient Records regulations: The Federal rules restrict any use of the information to criminally investigate or prosecute any alcohol or drug abuse patient.[facility] HospitalIn the event this information is protected by the Federal Confidentiality of Alcohol and Drug Abuse Patient Records regulations: The Federal rules restrict any use of the information to criminally investigate or prosecute any alcohol or drug abuse patient.[facility] HospitalIn the event this information is protected by the Federal Confidentiality of Alcohol and Drug Abuse Patient Records regulations: The Federal rules restrict any use of the information to criminally investigate or prosecute any alcohol or drug abuse patient.[facility] HospitalIn the event this information is protected by the Federal Confidentiality of Alcohol and Drug Abuse Patient Records regulations: The Federal rules restrict any use of the information to criminally investigate or prosecute any alcohol or drug abuse patient.[facility] HospitalIn the event this information is protected by the Federal Confidentiality of Alcohol and Drug Abuse Patient Records regulations: The Federal rules restrict any use of the information to criminally investigate or prosecute any alcohol or drug abuse patient.[facility] HospitalIn the event this information is protected by the Federal Confidentiality of Alcohol and Drug Abuse Patient Records regulations: The Federal rules restrict any use of the information to criminally investigate or prosecute any alcohol or drug abuse patient.[facility] HospitalIn the event this information is protected by the Federal Confidentiality of Alcohol and Drug Abuse Patient Records regulations: The Federal rules restrict any use of the information to criminally investigate or prosecute any alcohol or drug abuse patient.[facility] HospitalIn the event this information is protected by the Federal Confidentiality of Alcohol and Drug Abuse Patient Records regulations: The Federal rules restrict any use of the information to criminally investigate or prosecute any alcohol or drug abuse patient.[facility] HospitalIn the event this information is protected by the Federal Confidentiality of Alcohol and Drug Abuse Patient Records regulations: The Federal rules restrict any use of the information to criminally investigate or prosecute any alcohol or drug abuse patient.[facility] HospitalIn the event this information is protected by the Federal Confidentiality of Alcohol and Drug Abuse Patient Records regulations: The Federal rules restrict any use of the information to criminally investigate or prosecute any alcohol or drug abuse patient.[facility] HospitalIn the event this information is protected by the Federal Confidentiality of Alcohol and Drug Abuse Patient Records regulations: The Federal rules restrict any use of the information to criminally investigate or prosecute any alcohol or drug abuse patient.[facility]In the event this information is protected by the Federal Confidentiality of Alcohol and Drug Abuse Patient Records regulations: The Federal rules restrict any use of the information to criminally investigate or prosecute any alcohol or drug abuse patient.[facility] HospitalIn the event this information is protected by the Federal Confidentiality of Alcohol and Drug Abuse Patient Records regulations: The Federal rules restrict any use of the information to criminally investigate or prosecute any alcohol or drug abuse patient.[facility] HospitalIn the event this information is protected by the Federal Confidentiality of Alcohol and Drug Abuse Patient Records regulations: The Federal rules restrict any use of the information to criminally investigate or prosecute any alcohol or drug abuse patient.[facility] HospitalIn the event this information is protected by the Federal Confidentiality of Alcohol and Drug Abuse Patient Records regulations: The Federal rules restrict any use of the information to criminally investigate or prosecute any alcohol or drug abuse patient.[facility] HospitalIn the event this information is protected by the Federal Confidentiality of Alcohol and Drug Abuse Patient Records regulations: The Federal rules restrict any use of the information to criminally investigate or prosecute any alcohol or drug abuse patient.[facility] HospitalIn the event this information is protected by the Federal Confidentiality of Alcohol and Drug Abuse Patient Records regulations: The Federal rules restrict any use of the information to criminally investigate or prosecute any alcohol or drug abuse patient.[facility] HospitalIn the event this information is protected by the Federal Confidentiality of Alcohol and Drug Abuse Patient Records regulations: The Federal rules restrict any use of the information to criminally investigate or prosecute any alcohol or drug abuse patient.[facility] HospitalIn the event this information is protected by the Federal Confidentiality of Alcohol and Drug Abuse Patient Records regulations: The Federal rules restrict any use of the information to criminally investigate or prosecute any alcohol or drug abuse patient.[facility] HospitalIn the event this information is protected by the Federal Confidentiality of Alcohol and Drug Abuse Patient Records regulations: The Federal rules restrict any use of the information to criminally investigate or prosecute any alcohol or drug abuse patient.[facility] HospitalIn the event this information is protected by the Federal Confidentiality of Alcohol and Drug Abuse Patient Records regulations: The Federal rules restrict any use of the information to criminally investigate or prosecute any alcohol or drug abuse patient.[facility] HospitalIn the event this information is protected by the Federal Confidentiality of Alcohol and Drug Abuse Patient Records regulations: The Federal rules restrict any use of the information to criminally investigate or prosecute any alcohol or drug abuse patient.[facility] HospitalIn the event this information is protected by the Federal Confidentiality of Alcohol and Drug Abuse Patient Records regulations: The Federal rules restrict any use of the information to criminally investigate or prosecute any alcohol or drug abuse patient.[facility] HospitalIn the event this information is protected by the Federal Confidentiality of Alcohol and Drug Abuse Patient Records regulations: The Federal rules restrict any use of the information to criminally investigate or prosecute any alcohol or drug abuse patient.[facility] HospitalIn the event this information is protected by the Federal Confidentiality of Alcohol and Drug Abuse Patient Records regulations: The Federal rules restrict any use of the information to criminally investigate or prosecute any alcohol or drug abuse patient.[facility] HospitalIn the event this information is protected by the Federal Confidentiality of Alcohol and Drug Abuse Patient Records regulations: The Federal rules restrict any use of the information to criminally investigate or prosecute any alcohol or drug abuse patient.[facility] HospitalIn the event this information is protected by the Federal Confidentiality of Alcohol and Drug Abuse Patient Records regulations: The Federal rules restrict any use of the information to criminally investigate or prosecute any alcohol or drug abuse patient.[facility] HospitalIn the event this information is protected by the Federal Confidentiality of Alcohol and Drug Abuse Patient Records regulations: The Federal rules restrict any use of the information to criminally investigate or prosecute any alcohol or drug abuse patient.[facility] HospitalIn the event this information is protected by the Federal Confidentiality of Alcohol and Drug Abuse Patient Records regulations: The Federal rules restrict any use of the information to criminally investigate or prosecute any alcohol or drug abuse patient.[facility] HospitalIn the event this information is protected by the Federal Confidentiality of Alcohol and Drug Abuse Patient Records regulations: The Federal rules restrict any use of the information to criminally investigate or prosecute any alcohol or drug abuse patient.[facility] HospitalIn the event this information is protected by the Federal Confidentiality of Alcohol and Drug Abuse Patient Records regulations: The Federal rules restrict any use of the information to criminally investigate or prosecute any alcohol or drug abuse patient.[facility] HospitalIn the event this information is protected by the Federal Confidentiality of Alcohol and Drug Abuse Patient Records regulations: The Federal rules restrict any use of the information to criminally investigate or prosecute any alcohol or drug abuse patient.[facility] HospitalIn the event this information is protected by the Federal Confidentiality of Alcohol and Drug Abuse Patient Records regulations: The Federal rules restrict any use of the information to criminally investigate or prosecute any alcohol or drug abuse patient.[facility] HospitalIn the event this information is protected by the Federal Confidentiality of Alcohol and Drug Abuse Patient Records regulations: The Federal rules restrict any use of the information to criminally investigate or prosecute any alcohol or drug abuse patient.[facility] HospitalIn the event this information is protected by the Federal Confidentiality of Alcohol and Drug Abuse Patient Records regulations: The Federal rules restrict any use of the information to criminally investigate or prosecute any alcohol or drug abuse patient.[facility] HospitalIn the event this information is protected by the Federal Confidentiality of Alcohol and Drug Abuse Patient Records regulations: The Federal rules restrict any use of the information to criminally investigate or prosecute any alcohol or drug abuse patient.[facility] HospitalIn the event this information is protected by the Federal Confidentiality of Alcohol and Drug Abuse Patient Records regulations: The Federal rules restrict any use of the information to criminally investigate or prosecute any alcohol or drug abuse patient.[facility] HospitalIn the event this information is protected by the Federal Confidentiality of Alcohol and Drug Abuse Patient Records regulations: The Federal rules restrict any use of the information to criminally investigate or prosecute any alcohol or drug abuse patient.[facility]In the event this information is protected by the Federal Confidentiality of Alcohol and Drug Abuse Patient Records regulations: The Federal rules restrict any use of the information to criminally investigate or prosecute any alcohol or drug abuse patient.[facility]In the event this information is protected by the Federal Confidentiality of Alcohol and Drug Abuse Patient Records regulations: The Federal rules restrict any use of the information to criminally investigate or prosecute any alcohol or drug abuse patient.[facility]In the event this information is protected by the Federal Confidentiality of Alcohol and Drug Abuse Patient Records regulations: The Federal rules restrict any use of the information to criminally investigate or prosecute any alcohol or drug abuse patient.[facility]In the event this information is protected by the Federal Confidentiality of Alcohol and Drug Abuse Patient Records regulations: The Federal rules restrict any use of the information to criminally investigate or prosecute any alcohol or drug abuse patient.[facility]In the event this information is protected by the Federal Confidentiality of Alcohol and Drug Abuse Patient Records regulations: The Federal rules restrict any use of the information to criminally investigate or prosecute any alcohol or drug abuse patient.[facility] HospitalIn the event this information is protected by the Federal Confidentiality of Alcohol and Drug Abuse Patient Records regulations: The Federal rules restrict any use of the information to criminally investigate or prosecute any alcohol or drug abuse patient.[facility] HospitalIn the event this information is protected by the Federal Confidentiality of Alcohol and Drug Abuse Patient Records regulations: The Federal rules restrict any use of the information to criminally investigate or prosecute any alcohol or drug abuse patient.[facility]In the event this information is protected by the Federal Confidentiality of Alcohol and Drug Abuse Patient Records regulations: The Federal rules restrict any use of the information to criminally investigate or prosecute any alcohol or drug abuse patient.[facility] HospitalIn the event this information is protected by the Federal Confidentiality of Alcohol and Drug Abuse Patient Records regulations: The Federal rules restrict any use of the information to criminally investigate or prosecute any alcohol or drug abuse patient.[facility] HospitalIn the event this information is protected by the Federal Confidentiality of Alcohol and Drug Abuse Patient Records regulations: The Federal rules restrict any use of the information to criminally investigate or prosecute any alcohol or drug abuse patient.[facility] HospitalIn the event this information is protected by the Federal Confidentiality of Alcohol and Drug Abuse Patient Records regulations: The Federal rules restrict any use of the information to criminally investigate or prosecute any alcohol or drug abuse patient.[facility] HospitalIn the event this information is protected by the Federal Confidentiality of Alcohol and Drug Abuse Patient Records regulations: The Federal rules restrict any use of the information to criminally investigate or prosecute any alcohol or drug abuse patient.[facility] [facility] HospitalIn the event this information is protected by the Federal Confidentiality of Alcohol and Drug Abuse Patient Records regulations: The Federal rules restrict any use of the information to criminally investigate or prosecute any alcohol or drug abuse patient.[facility] HospitalIn the event this information is protected by the Federal Confidentiality of Alcohol and Drug Abuse Patient Records regulations: The Federal rules restrict any use of the information to criminally investigate or prosecute any alcohol or drug abuse patient.[facility] HospitalIn the event this information is protected by the Federal Confidentiality of Alcohol and Drug Abuse Patient Records regulations: The Federal rules restrict any use of the information to criminally investigate or prosecute any alcohol or drug abuse patient.[facility] HospitalIn the event this information is protected by the Federal Confidentiality of Alcohol and Drug Abuse Patient Records regulations: The Federal rules restrict any use of the information to criminally investigate or prosecute any alcohol or drug abuse patient.[facility] HospitalIn the event this information is protected by the Federal Confidentiality of Alcohol and Drug Abuse Patient Records regulations: The Federal rules restrict any use of the information to criminally investigate or prosecute any alcohol or drug abuse patient.[facility] HospitalIn the event this information is protected by the Federal Confidentiality of Alcohol and Drug Abuse Patient Records regulations: The Federal rules restrict any use of the information to criminally investigate or prosecute any alcohol or drug abuse patient.[facility] HospitalIn the event this information is protected by the Federal Confidentiality of Alcohol and Drug Abuse Patient Records regulations: The Federal rules restrict any use of the information to criminally investigate or prosecute any alcohol or drug abuse patient.[facility] HospitalIn the event this information is protected by the Federal Confidentiality of Alcohol and Drug Abuse Patient Records regulations: The Federal rules restrict any use of the information to criminally investigate or prosecute any alcohol or drug abuse patient.[facility] HospitalIn the event this information is protected by the Federal Confidentiality of Alcohol and Drug Abuse Patient Records regulations: The Federal rules restrict any use of the information to criminally investigate or prosecute any alcohol or drug abuse patient.[facility] HospitalIn the event this information is protected by the Federal Confidentiality of Alcohol and Drug Abuse Patient Records regulations: The Federal rules restrict any use of the information to criminally investigate or prosecute any alcohol or drug abuse patient.[facility] HospitalIn the event this information is protected by the Federal Confidentiality of Alcohol and Drug Abuse Patient Records regulations: The Federal rules restrict any use of the information to criminally investigate or prosecute any alcohol or drug abuse patient.[facility] HospitalIn the event this information is protected by the Federal Confidentiality of Alcohol and Drug Abuse Patient Records regulations: The Federal rules restrict any use of the information to criminally investigate or prosecute any alcohol or drug abuse patient.[facility] HospitalIn the event this information is protected by the Federal Confidentiality of Alcohol and Drug Abuse Patient Records regulations: The Federal rules restrict any use of the information to criminally investigate or prosecute any alcohol or drug abuse patient.[facility] HospitalIn the event this information is protected by the Federal Confidentiality of Alcohol and Drug Abuse Patient Records regulations: The Federal rules restrict any use of the information to criminally investigate or prosecute any alcohol or drug abuse patient.[facility] HospitalIn the event this information is protected by the Federal Confidentiality of Alcohol and Drug Abuse Patient Records regulations: The Federal rules restrict any use of the information to criminally investigate or prosecute any alcohol or drug abuse patient.[facility] HospitalIn the event this information is protected by the Federal Confidentiality of Alcohol and Drug Abuse Patient Records regulations: The Federal rules restrict any use of the information to criminally investigate or prosecute any alcohol or drug abuse patient.[facility] HospitalIn the event this information is protected by the Federal Confidentiality of Alcohol and Drug Abuse Patient Records regulations: The Federal rules restrict any use of the information to criminally investigate or prosecute any alcohol or drug abuse patient.[facility] HospitalIn the event this information is protected by the Federal Confidentiality of Alcohol and Drug Abuse Patient Records regulations: The Federal rules restrict any use of the information to criminally investigate or prosecute any alcohol or drug abuse patient.[facility] HospitalIn the event this information is protected by the Federal Confidentiality of Alcohol and Drug Abuse Patient Records regulations: The Federal rules restrict any use of the information to criminally investigate or prosecute any alcohol or drug abuse patient.[facility] HospitalIn the event this information is protected by the Federal Confidentiality of Alcohol and Drug Abuse Patient Records regulations: The Federal rules restrict any use of the information to criminally investigate or prosecute any alcohol or drug abuse patient.[facility] HospitalIn the event this information is protected by the Federal Confidentiality of Alcohol and Drug Abuse Patient Records regulations: The Federal rules restrict any use of the information to criminally investigate or prosecute any alcohol or drug abuse patient.[facility] HospitalIn the event this information is protected by the Federal Confidentiality of Alcohol and Drug Abuse Patient Records regulations: The Federal rules restrict any use of the information to criminally investigate or prosecute any alcohol or drug abuse patient.[facility] HospitalIn the event this information is protected by the Federal Confidentiality of Alcohol and Drug Abuse Patient Records regulations: The Federal rules restrict any use of the information to criminally investigate or prosecute any alcohol or drug abuse patient.[facility] HospitalIn the event this information is protected by the Federal Confidentiality of Alcohol and Drug Abuse Patient Records regulations: The Federal rules restrict any use of the information to criminally investigate or prosecute any alcohol or drug abuse patient.[facility] HospitalIn the event this information is protected by the Federal Confidentiality of Alcohol and Drug Abuse Patient Records regulations: The Federal rules restrict any use of the information to criminally investigate or prosecute any alcohol or drug abuse patient.[facility] HospitalIn the event this information is protected by the Federal Confidentiality of Alcohol and Drug Abuse Patient Records regulations: The Federal rules restrict any use of the information to criminally investigate or prosecute any alcohol or drug abuse patient.[facility] HospitalIn the event this information is protected by the Federal Confidentiality of Alcohol and Drug Abuse Patient Records regulations: The Federal rules restrict any use of the information to criminally investigate or prosecute any alcohol or drug abuse patient.[facility] HospitalIn the event this information is protected by the Federal Confidentiality of Alcohol and Drug Abuse Patient Records regulations: The Federal rules restrict any use of the information to criminally investigate or prosecute any alcohol or drug abuse patient.[facility] HospitalIn the event this information is protected by the Federal Confidentiality of Alcohol and Drug Abuse Patient Records regulations: The Federal rules restrict any use of the information to criminally investigate or prosecute any alcohol or drug abuse patient.[facility] HospitalIn the event this information is protected by the Federal Confidentiality of Alcohol and Drug Abuse Patient Records regulations: The Federal rules restrict any use of the information to criminally investigate or prosecute any alcohol or drug abuse patient.[facility] HospitalIn the event this information is protected by the Federal Confidentiality of Alcohol and Drug Abuse Patient Records regulations: The Federal rules restrict any use of the information to criminally investigate or prosecute any alcohol or drug abuse patient.[facility] HospitalIn the event this information is protected by the Federal Confidentiality of Alcohol and Drug Abuse Patient Records regulations: The Federal rules restrict any use of the information to criminally investigate or prosecute any alcohol or drug abuse patient.[facility] HospitalIn the event this information is protected by the Federal Confidentiality of Alcohol and Drug Abuse Patient Records regulations: The Federal rules restrict any use of the information to criminally investigate or prosecute any alcohol or drug abuse patient.[facility] HospitalIn the event this information is protected by the Federal Confidentiality of Alcohol and Drug Abuse Patient Records regulations: The Federal rules restrict any use of the information to criminally investigate or prosecute any alcohol or drug abuse patient.[facility] Reason for Visit (unrecogniz ed section and content) Reason Comments New Patient Reason Comments Case Review Reason Comments tavr referral Reason Comments Radio Main J1 Specialty Diagnoses / Procedures Referred By Contac t Referred To Contact Radiology / [facility] GENER[facility] J Diagnoses Encounter for preprocedural cardiovascular examination [Z01.810] Aortic valve disorder [I35.9] Procedures XR CHEST Janneth Peres APRN.SENIOR CIVIL ENGINEER [address] [place] [address] Radio Gen Main J [address] [place] [address] Referral ID Status Reason Start Date Expiration Date Visits Re quested Visits Authorized [id number] Closed 11/03/2021 01/29/2022 [address] Specialty Diagnoses / Procedures Referred By Contac t Referred To Contact CT IMAGING Diagnoses Encounter for preprocedural cardiovascular examination Aortic valve disorder Procedures CTA CHEST/ABD/PEL (GATED) W IVCON CT ANGIOGRAPHY CHEST W/CONTRAST/NONCONTRAST CT ANGIO ABD&PLVIS CNTRST MTRL W/WO CNTRST IMGES Janneth Peres APRN.SENIOR CIVIL ENGINEER [address] [place] [address] Ct Imaging Referral ID Status Reason Start Date Expiration Date V isits Requested Visits Authorized [id number] Closed Auto-Generated Referral Financial Clearance Not Required 10/11/2021 03/31/2022 1 1 Reason Comments Spirometry Specialty Diagnoses / Procedures Referred By Contac t Referred To Contact [facility] Diagnoses Encounter for preprocedural cardiovascular examination Aortic valve disorder Procedures SPIROMETRY BASELINE ONLY SPMTRY W/VC EXPIRATORY LORRI W/WO MXML VOL VNTJ Janneth Peres, MULTICUT LINE OPERATOR.SENIOR CIVIL ENGINEER [address] [id number] [facility] [address] [place] [address] Referral ID Status Reason Start Date Expiration Date Visits Requested Visits Authorized [id number] Pending Review Auto-Generat ed Referral 10/11/2021 11/10/2022 1 1 Specialty Diagnoses / Procedures [facility] Diagnoses Encounter for preprocedural cardiovascular examination Aortic valve disorder Procedures LUNG DIFFUSION CAPACITY (DLCO) DIFFUSING CAPACITY Janneth Peres, MULTICUT LINE OPERATOR.SENIOR CIVIL ENGINEER [address] [place] [address] [place] [address] Referral ID Status Reason Start Date Expiration Date Visits Requested Visits Authorized [id number] Pending Review Auto-Generat ed Referral 10/11/2021 11/10/2022 1 1 Reason Comments Valvular Heart Disease Reason Comments [place] TAVR Reason Comments Pre-Op Exam Valvular Heart Disease Reason Comments Returning Patient's Call Reason Comments Follow Up Reason Comments Established Patient Reason Comments Follow Up Low iron Reason Comments Post Dc Program Call - Reason Comments Hospital F/U Reason Comments Results CBC and iron Reason Comments New Patient Abnormal results Reason Comments Appointment Reason Comments New Patient 2nd opinion Reason Comments Returning Patient's Call Returning daugh ter's call Reason Comments Results Paracentesis 04/27 po sitive for SBP Reason Comments Established Patient Reason Onset Date Comments Pre-Op Teaching 05/09/2022 Reason Comments Consult Reason Comments Question Reason Comments Returning Patient's Call Verified name a nd . Patient wanted to know what her Potassium level was because her PCP called in a script for potassium and should she take the potassium dose in the morning before her surgery. I informed the patient that her potassium level is 3.6 and she should take her dose tonight and tomorrow. Also that we will have her potassium level redrawn tomorrow. Patient was appreciative for the information. Viktoriya Gupta RNCare Coordinator Reason Comments Post-Op Visit Reason Comments Results Reason Comments Patient Update Reason Comments Patient Question Reason Comments Results Biopsy results Reason Comments Chief Of Service - Other Introduction Reason Comments Orders Reason Comments AVS 06/01/22 Reason Comments First Time Treatment Education Carboplat in/Taxol/Herceptin Reason Comments chemo appt. Reason Comments Cancer Reason Comments Chief Of Service - Other C1D1 Post Treat ment Call (Taxol/Carbo) Reason Comments Social Work Services Reason Comments Chemotherapy Treatment Specialty Diagnoses / Procedures Referred By [facility] Referred To Contact Diagnoses Uterine carcinosarcoma (HCC) Omental metastasis (HCC) Ruddy Patricio, DO [address] [place] [address] [facility] [address] [place] [address] Referral ID Status Reason Start Date Expiration Date V isits Requested Visits Authorized [id number] Authorized 06/05/2022 09/03/2022 99 99 Reason Comments Chief Of Service - Other Toxicity Check Reason Comments Nutrition Assessment Reason Comments Benefits Investigation Reason Comments Results Echocardiogram Specialty Diagnoses / Procedures Referred By [facility] Referred To Contact Diagnoses Uterine carcinosarcoma (HCC) Omental metastasis Ruddy Patricio, DO [address] [place] [address] [facility] [address] [place] [address] Reason Comments Nutrition Counseling Reason Comments Procedure Drain Pleurx cathete r per Dr. Patricio. Reason Comments Request Outside Medical Records Reason Comments Follow Up Pleural effusion Reason Comments Results Low potassium Reason Comments Patient Update CHEMO RESTART Reason Comments Chief Of Service - Other Oral Anti-Cance r Agents (Olaparib) Reason Onset Date Comments Refill Request 02/19/2023 Reason Comments Chief Of Service - Other Received olapar ib Reason Comments Chief Of Service - Other Oral Anti-Cance r Agents Follow-up (olaparib) Reason Comments New Pain Reason Comments Radiology CT Specialty Diagnoses / Procedures Referred By Contac t Referred To Contact CT IMAGING Diagnoses 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) Procedures CT ABD/PEL W IVCON CT ABD & PELVIS W/CONTRAST Ruddy Patricio, DO [address] [place] [address] [place] [address] Referral ID Status Reason Start Date Expiration Date V isits Requested Visits Authorized [id number] Closed Auto-Generate d Referral 04/13/2024 05/13/2025 1 1 Specialty Diagnoses / Procedures Referred By Contac t Referred To Contact CT IMAGING Diagnoses 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) Procedures CT ABD/PEL W IVCON CT ABD & PELVIS W/CONTRAST Ruddy Patricio, DO [address] [place] [address] [place] [address] Reason Comments Results Reason Comments 2024 Lynparza Assistance Reason Comments Radiology US Specialty Diagnoses / Procedures [facility] Ref[facility] To [facility] Diagnoses Abnormal CT of liver Procedures US ABD RIGHT UPPER QUADRANT US ABDOMINAL REAL TIME W/IMAGE LIMITED Ruddy Patricio, DO [address] [place] [address] [place] [address] Referral ID Status Reason Start Date Expiration Date V isits Requested Visits Authorized [id number] Closed Auto-Generate d Referral 04/23/2024 05/23/2025 1 1 Specialty Diagnoses / Procedures Referred By Contac t Referred To Contact [facility] Diagnoses RINA (acute kidney injury) (HCC) Procedures US KIDNEY/BLADDER US RETROPERITONEAL REAL TIME W/IMAGE COMPLETE Ruddy Patricio, DO [address] [place] [address] Phone: tel: fax: [place] [address] Referral ID Status Reason Start Date Expiration Date V isits Requested Visits Authorized [id number] Closed Auto-Generate d Referral 05/12/2024 06/11/2025 1 1 Reason Comments Blood Pressure Reason Comments Results Blood pressure Reason Comments Refill Request Care Teams (unrecognized sec tion and content) Deck Officer Relationship Specialty Start Date End Date Vern Bernardo MD [address] [place] [address] PCP - General Internal Medicine 08/03/21 Deck Officer Relationship Specialty Start Date End Date Vern Bernardo MD [address] [place] [address] PCP - General Internal Medicine 08/03/21 Deck Officer Relationship Specialty Start Date End Date Vern Bernardo MD [address] [place] [address] PCP - General Internal Medicine 08/03/21 Deck Officer Relationship Specialty Start Date End Date Vern Bernardo MD [address] [place] [address] PCP - General Internal Medicine 08/03/21 Deck Officer Relationship Specialty Start Date End Date Vern Bernardo MD [address] [place] [address] PCP - General Internal Medicine 08/03/21 Ruddy Puri [address] [facility] [place] [address] Referring Cardiology 10/25/21 Deck Officer Relationship Specialty Start Date End Date Vern Bernardo MD [address] [place] [address] PCP - General Internal Medicine 08/03/21 Ruddy Puri [facility] [place] [address] Referring Cardiology 10/25/21 Nir Roth MD [facility] [address] [place] [address] Primary Staff Physician Cardiology 11/03/21 Deck Officer Relationship Specialty Start Date End Date Vern Bernardo MD [address] [place] [address] PCP - General Internal Medicine 08/03/21 Ruddy Puri [address] [facility] [address] Referring Cardiology 10/25/21 Nir Roth MD [facility] [address] [place] [address] Primary Staff Physician Cardiology 11/03/21 Deck Officer Relationship Specialty Start Date End Date Vern Bernardo MD [address] [place] [address] PCP - General Internal Medicine 08/03/21 Ruddy Puri [address] [facility] [place] [place] [address] Referring Cardiology 10/25/21 Nir Roth MD [facility] [address] [place] [address] Primary Staff Physician Cardiology 11/03/21 Deck Officer Relationship Specialty Start Date End Date Vern Bernardo MD [address] [place] [address] PCP - General Internal Medicine 08/03/21 Ruddy Puri [address] [facility] [place] [address] Referring Cardiology 10/25/21 Nir Roth MD [facility] [address] [place] [address] Primary Staff Physician Cardiology 11/03/21 Deck Officer Relationship Specialty Start Date End Date Vern Bernardo MD [address] [place] [address] PCP - General Internal Medicine 08/03/21 Rudyd Puri [address] [facility] [place] [address] Referring Cardiology 10/25/21 Nir Roth MD [facility] [address] [place] [address] Primary Staff Physician Cardiology 11/03/21 Deck Officer Relationship Specialty Start Date End Date Vern Bernardo MD [address] [facility] [place] [address] PCP - General Internal Medicine 08/03/21 Ruddy Puri [address] [place] [address] Referring Cardiology 10/25/21 Nir Roth MD [facility] [address] [place] [address] Primary Staff Physician Cardiology 11/03/21 Deck Officer Relationship Specialty Start Date End Date Vern Bernardo MD [address] [place] [address] PCP - General Internal Medicine 08/03/21 Ruddy Puri [address] [facility] [place] [address] Referring Cardiology 10/25/21 Nir Roth MD [facility] [address] [place] [address] Primary Staff Physician Cardiology 11/03/21 Deck Officer Relationship Specialty Start Date End Date Vern Bernardo MD [address] [place] [address] PCP - General Internal Medicine 08/03/21 Ruddy Puri [address] [facility] [address] Referring Cardiology 10/25/21 Nir Roth MD [facility] [address] [place] [address] Primary Staff Physician Cardiology 11/03/21 Deck Officer Relationship Specialty Start Date End Date Vern Bernardo MD [address] [place] [address] PCP - General Internal Medicine 08/03/21 Ruddy Puri [address] [facility] [place] [address] Referring Cardiology 10/25/21 Nir Roth MD [facility] [address] [place] [address] Primary Staff Physician Cardiology 11/03/21 Deck Officer Relationship Specialty Start Date End Date Vern Bernardo MD [address] [place] [address] PCP - General Internal Medicine 08/03/21 Ruddy Puri [address] [facility] [place] [address] Referring Cardiology 10/25/21 Nir Roth MD [facility] [address] [place] [address] Primary Staff Physician Cardiology 11/03/21 Deck Officer Relationship Specialty Start Date End Date Vern Bernardo MD [address] [place] [address] PCP - General Internal Medicine 08/03/21 Ruddy Puri [address] [facility] [address] Referring Cardiology 10/25/21 Nir Roth MD [facility] [address] [place] [address] Primary Staff Physician Cardiology 11/03/21 Deck Officer Relationship Specialty Start Date End Date Vern Bernardo MD [address] [place] [address] PCP - General Internal Medicine 08/03/21 Ruddy Puri [address] [facility] [place] [address] Referring Cardiology 10/25/21 Nir Roth MD [facility] [address] [place] [address] Primary Staff Physician Cardiology 11/03/21 Deck Officer Relationship Specialty Start Date End Date Vern Bernardo MD [address] [place] [address] PCP - General Internal Medicine 08/03/21 Ruddy Puri [address] [facility] [place] [address] Referring Cardiology 10/25/21 Nir Roth MD [facility] [address] [place] [id number] Primary Staff Physician Cardiology 11/03/21 Deck Officer Relationship Specialty Start Date End Date Vern Bernardo MD [address] [place] [address] PCP - General Internal Medicine 08/03/21 Ruddy Puri [address] [facility] [address] Referring Cardiology 10/25/21 Nir Roth MD [facility] [address] [place] [address] Primary Staff Physician Cardiology 11/03/21 Deck Officer Relationship Specialty Start Date End Date Vern Bernardo MD [address] [place] [address] PCP - General Internal Medicine 08/03/21 Ruddy Puri [address] [facility] [address] Referring Cardiology 10/25/21 Nir Roth MD [facility] [address] [place] [address] Primary Staff Physician Cardiology 11/03/21 Deck Officer Relationship Specialty Start Date End Date Vern Bernardo MD [address] [place] [address] PCP - General Internal Medicine 08/03/21 Ruddy Puri [address] [place] [address] Referring Cardiology 10/25/21 Nir Roth MD [facility] [address] [place] [address] Primary Staff Physician Cardiology 11/03/21 Ruddy Patricio, DO [address] [place] [address] Hematology/Oncology 12/25/21 Deck Officer Relationship Specialty Start Date End Date Vern Bernardo MD [address] [place] [address] PCP - General Internal Medicine 08/03/21 Ruddy Puri [address] [facility] [place] [address] Referring Cardiology 10/25/21 Nir Roth MD [facility] [address] [place] [address] Primary Staff Physician Cardiology 11/03/21 Ruddy Patricio, DO [address] [place] [address] Hematology/Oncology 12/25/21 Deck Officer Relationship Specialty Start Date End Date Vern Bernardo MD [address] [place] [address] PCP - General Internal Medicine 08/03/21 Ruddy Puri [address] [facility] [place] [address] Referring Cardiology 10/25/21 Nir Roth MD [facility] [address] [place], [place] [address] Primary Staff Physician Cardiology 11/03/21 Ruddy Patricio, DO [address] [place] [address] Hematology/Oncology 12/25/21 Deck Officer Relationship Specialty Start Date End Date Vern eBrnardo MD [address] [place] [address] PCP - General Internal Medicine 08/03/21 Ruddy Puri [address] [facility] [place] [address] Referring Cardiology 10/25/21 Nir Roth MD [facility] [address] [place] [address] Primary Staff Physician Cardiology 11/03/21 Ruddy Patricio, DO [address] [place] [place] [address] Hematology/Oncology 12/25/21 Deck Officer Relationship Specialty Start Date End Date Vern Bernardo MD [address] [place] [address] PCP - General Internal Medicine 08/03/21 Ruddy Puri [address] [facility] [address] Referring Cardiology 10/25/21 Nir Roth MD [facility] [address] [place] [address] Primary Staff Physician Cardiology 11/03/21 Ruddy Patricio, DO [address] [place] [address] Hematology/Oncology 12/25/21 Deck Officer Relationship Specialty Start Date End Date Vern Bernardo MD [address] [place] [address] PCP - General Internal Medicine 08/03/21 Ruddy Puri [address] [facility] [place] [address] Referring Cardiology 10/25/21 Nir Roth MD [facility] [address] [place] [address] Primary Staff Physician Cardiology 11/03/21 Ruddy Patricio, DO [address] [place] [address] Hematology/Oncology 12/25/21 Deck Officer Relationship Specialty Start Date End Date Vern Bernardo MD [address] [place] [address] PCP - General Internal Medicine 08/03/21 Ruddy Puri [address] [place] [address] Referring Cardiology 10/25/21 Nir Roth MD [facility] [address] [place] [address] Primary Staff Physician Cardiology 11/03/21 Ruddy Patricio, DO [address] [place] [address] Hematology/Oncology 12/25/21 Deck Officer Relationship Specialty Start Date End Date Vern Bernardo MD [address] [place] [address] PCP - General Internal Medicine 08/03/21 Ruddy Puri [address] [facility] [place] [address] Referring Cardiology 10/25/21 Nir Roth MD [facility] [address] [place] [address] Primary Staff Physician Cardiology 11/03/21 Ruddy Patricio, DO [address] [place] [address] Hematology/Oncology 12/25/21 Team Status: Active Member Role Status Dates No Primary Care Physician Family Provider Active Dr. Vern Bernardo MD Primary Care Provider Active Team Status: Inactive Member Role Status Dates Dr. Vern Bernardo MD Primary Care Provider, Referri ng Provider Active Dr. Ruddy Puri MD Attending Provider Active Team Status: Inactive Member Role Status Dates Dr. Vern Bernardo MD Primary Care Provider, Referri ng Provider Active Armen CARTWRIGHT PA Attending Provider Active Team Status: Inactive Member Role Status Dates Dr. Vern Bernardo MD Primary Care Provider, Attendi ng Provider Active Team Status: Inactive Member Role Status Dates Dr. Vern Bernardo MD Primary Care Provider, Referri ng Provider Active Dr. Vince Morse MD Attending Provider Active Team Status: Inactive Member Role Status Dates Dr. Vern Bernardo MD Primary Care Provider Active Armen CARTWRIGHT PA Attending Provider, Referring Provi danial Active Team Status: Inactive Member Role Status Dates Dr. Vern Bernardo MD Primary Care Provider Active Armen CARTWRIGHT PA Attending Provider Active Team Status: Inactive Member Role Status Dates Dr. Vern Bernardo MD Primary Care Provider Active Dr. Vince Morse MD Attending Provider, Referring Provider Active Team Status: Active Member Role Status Dates Dr. Vern Bernardo MD Primary Care Provider Active Dr. Vince Morse MD Attending Provider, Referring Provider Active Deck Officer Relationship Specialty Start Date End Date Vern Bernardo MD [address] [place], [place] [id number] PCP - General Internal Medicine 08/03/21 Ruddy Puri [address] [place] [address] Referring Cardiology 10/25/21 Nir Roth MD [facility] [address] [place] [address] Primary Staff Physician Cardiology 11/03/21 Ruddy Patricio, DO [address] [place] [address] Hematology/Oncology 12/25/21 Deck Officer Relationship Specialty Start Date End Date Vern Bernardo MD [address] [place] [address] PCP - General Internal Medicine 08/03/21 Ruddy Puri [address] [facility] [place] [address] Referring Cardiology 10/25/21 Nir Roth MD [facility] [address] [place], [place] [address] Primary Staff Physician Cardiology 11/03/21 Ruddy Patricio, DO [address] [place] [address] Hematology/Oncology 12/25/21 Deck Officer Relationship Specialty Start Date End Date Vern Bernardo MD [address] [place] [address] PCP - General Internal Medicine 08/03/21 Ruddy Puri [address] [facility] [place] [address] Referring Cardiology 10/25/21 Nir Roth MD [facility] [address] [place], [place] [address] Primary Staff Physician Cardiology 11/03/21 Ruddy Patricio, DO [address] [place] [address] Hematology/Oncology 12/25/21 Deck Officer Relationship Specialty Start Date End Date Vern Bernardo MD [address] [place] [address] PCP - General Internal Medicine 08/03/21 Ruddy Puri [address] [facility] [place] [address] Referring Cardiology 10/25/21 Nir Roth MD [facility] [address] [place] [address] Primary Staff Physician Cardiology 11/03/21 Ruddy Patricio DO [address] [place], [place] [address] Hematology/Oncology 12/25/21 Team Status: Active Member Role Status Dates Dr. Vern Bernardo MD Primary Care Provider Active Dr. Ary Borden MD Attending Provider, Referring Prov ider Active Team Status: Active Member Role Status Dates Dr. Vern Bernardo MD Primary Care Provider Active Dr. Monica Dueñas MD Emergency Provider Active Dr. Haim Das DO Admit Provider, Attending Pro vider Active Team Status: Active Member Role Status Dates Dr. Vern Benrardo MD Primary Care Provider Active Dr. Monica Dueñas MD Emergency Provider Active Dr. Haim Das DO Admit Provider, Attending Provider, Other Provider Active Team Status: Active Member Role Status Dates Dr. Vern Bernardo MD Primary Care Provider Active Dr. Monica Dueñas MD Emergency Provider Active Dr. Haim Das DO Admit Provider, Attending Provider, Other Provider Active Dr. Vince Rdz MD Other Provider Active Team Status: Inactive Member Role Status Dates Dr. Vern Bernardo MD Primary Care Provider Active Dr. Monica Dueñas MD Emergency Provider Active Dr. Haim Das DO Admit Provider, Attending Pro vider Active Dr. Vince Rdz MD Other Provider Active Deck Officer Relationship Specialty Start Date End Date Vern Bernardo MD [address] [place], [place] [id number] PCP - General Internal Medicine 08/03/21 Ruddy Puri [address] [facility] [place] [address] Referring Cardiology 10/25/21 Nir Roth MD [facility] [address] [place] [address] Primary Staff Physician Cardiology 11/03/21 Ruddy Patricio, DO [address] [place] [address] Hematology/Oncology 12/25/21 Deck Officer Relationship Specialty Start Date End Date Vern Bernardo MD [address] [place] [address] PCP - General Internal Medicine 08/03/21 Ruddy Puri [address] [place] [address] Referring Cardiology 10/25/21 Nir Roth MD [facility] [address] [place] [address] Primary Staff Physician Cardiology 11/03/21 Ruddy Patricio, DO [address] [place] [place] [address] Hematology/Oncology 12/25/21 Team Status: Inactive Member Role Status Dates Dr. Vern Bernardo MD Primary Care Provider Active Dr. Ary Borden MD Attending Provider, Referring Prov ider Active Deck Officer Relationship Specialty Start Date End Date Vern Bernardo MD [address] [place] [address] PCP - General Internal Medicine 08/03/21 Ruddy Puri [address] [facility] [place] [address] Referring Cardiology 10/25/21 Nir Roth MD [facility] [address] [place] [address] Primary Staff Physician Cardiology 11/03/21 Ruddy Patricio, [address] [place] [place] [address] Hematology/Oncology 12/25/21 Deck Officer Relationship Specialty Start Date End Date Vern Bernardo MD [address] [place] [address] PCP - General Internal Medicine 08/03/21 Ruddy Puri [address] [place] [address] Referring Cardiology 10/25/21 Nir Roth MD [facility] [address] [place] [address] Primary Staff Physician Cardiology 11/03/21 Ruddy Patricio DO [address] [place] [address] Hematology/Oncology 12/25/21 Team Status: Inactive Member Role Status Dates Dr. Vern Bernardo MD Primary Care Provider Active Dr. Khari Clarke DO Emergency Provider Active Deck Officer Relationship Specialty Start Date End Date Vern Bernardo MD [address] [place] [address] PCP - General Internal Medicine 08/03/21 Ruddy Puri 176[facility] [facility]neyK[facility]ie[place] [address] Referring Cardiology 10/25/21 Nir Roth MD [facility] [address] [place] [address] Primary Staff Physician Cardiology 11/03/21 Ruddy Patricio, DO [address] [place] [address] Hematology/Oncology 12/25/21 Deck Officer Relationship Specialty Start Date End Date Vern Bernardo MD [address] [place] [address] PCP - General Internal Medicine 08/03/21 Ruddy Puri [address] [place] [address] Referring Cardiology 10/25/21 Nir Roth MD [facility] [address] [place] [address] Primary Staff Physician Cardiology 11/03/21 Ruddy Patricio, DO [address] [place] [address] Hematology/Oncology 12/25/21 Team Status: Active Member Role Status Dates Dr. Vern Beranrdo MD Primary Care Provider Active Dr. João Palacios MD Emergency Provider Active Dr. Sai Lee MD Admit Provider, Attending Provi danial Active Deck Officer Relationship Specialty Start Date End Date Vern Bernardo MD [address] [place] [address] PCP - General Internal Medicine 08/03/21 Ruddy Puri [address] [place] [address] Referring Cardiology 10/25/21 Nir Roth MD [facility] [address] [place] [address] Primary Staff Physician Cardiology 11/03/21 Ruddy Patricio, DO [address] [place], [place] [address] Hematology/Oncology 12/25/21 Deck Officer Relationship Specialty Start Date End Date Vern Bernardo MD [address] [place], [place] [id number] PCP - General Internal Medicine 08/03/21 Ruddy Puri [address] [facility] [place] [address] Referring Cardiology 10/25/21 Nir Roth MD [facility] [address] [place] [address] Primary Staff Physician Cardiology 11/03/21 Ruddy Patricio, DO [address] [place], [place] [id number] Hematology/Oncology 12/25/21 Alexandra Chavez, RN Registered Nurse Women's Health Specialist 05/25/22 Team Status: Active Member Role Status Dates Dr. Vern Bernardo MD Primary Care Provider Active Dr. João Palacios MD Emergency Provider Active Dr. Sai Lee MD Admit Provider, A ttending Provider, Other Provider Active Team Status: Active Member Role Status Dates Dr. Vern Bernardo MD Primary Care Provider Active Dr. João Palacios MD Emergency Provider Active Dr. Sai Lee MD Admit Provider, Other Provider Active Dr. Khari Oliva DO Attending Provider, Other Provid er Active Team Status: Active Member Role Status Dates Dr. Vern Bernardo MD Primary Care Provider Active Dr. João Palacios MD Emergency Provider Active Dr. Sai Lee MD Admit Provider, Other Provider Active Dr. Piedad Hester MD Attending Provider, Other Provid er Active Dr. Khari Oliva DO Other Provider Active Team Status: Active Member Role Status Dates Dr. Vern Bernardo MD Primary Care Provider Active Dr. João Palacios MD Emergency Provider Active Dr. Sai Lee MD Admit Provider, Other Provider Active Dr. Piedad Hester MD Other Provider Active Dr. Khari Oliva , DO Other Provider Active Dr. Pravin Martínez MD Attending Provider, Other Provid er Active Dr. Bud Hanna , DO Other Provider Active Dr. Wade Marcus MD Other Provider Active Dr. Kane Borges MD Other Provider Active Nani Crowder SUPERVISOR BOTTLE MACHINES, SUPERVISOR BOTTLE MACHINES-C Other Provider Active Team Status: Active Member Role Status Dates Dr. Vern Bernardo MD Primary Care Provider Active Dr. João Palacios MD Emergency Provider Active Dr. Sai Lee MD Admit Provider, Other Provider Active Dr. Piedad Hester MD Attending Provider, Other Provid er Active Dr. Khari Oliva , DO Other Provider Active Dr. Pravin Martínez MD Other Provider Active Dr. Bud Hanna , DO Other Provider Active Dr. Wade Marcus MD Other Provider Active Dr. Kane Borges MD Other Provider Active Nani Crowder NP, SUPERVISOR BOTTLE MACHINES-C Other Provider Active Team Status: Inactive Member Role Status Dates Dr. Vern Bernardo MD Primary Care Provider Active Dr. Khari Clarke , Attending Provider, Emergency P [facility] Active Team Status: Inactive Member Role Status Dates Dr. Vern Bernardo MD Primary Care Provider Active Dr. João Palacios MD Emergency Provider Active Dr. Sai Lee MD Admit Provider, Other Provider Active Dr. Piedad Hester MD Attending Provider Active Dr. Khari Oliva , DO Other Provider Active Dr. Pravin Martínez MD Other Provider Active Dr. Bud Hanna , DO Other Provider Active Dr. Wade Marcus MD Other Provider Active Dr. Kane Borges MD Other Provider Active Nani Crowder NP, SUPERVISOR BOTTLE MACHINES-C Other Provider Active Deck Officer Relationship Specialty Start Date End Date Vern Bernardo MD [address] [place], [place] [address] PCP - General Internal Medicine 08/03/21 Ruddy Puri [facility] [place] [address] Referring Cardiology 10/25/21 Nir Roth MD [facility] [address] [place] [address] Primary Staff Physician Cardiology 11/03/21 Ruddy Patricio, DO [address] [place] [address] Hematology/Oncology 12/25/21 Alexandra Chavez, RN Registered Nurse Women's Health Specialist 05/25/22 Ary Borden MD [address] [place] [address] Gynecology 06/01/22 Samra Cee, ARMANI.STORE LOSS PREVENTION MANAGER [address] [place] [address] Gynecology 06/01/22 Deck Officer Relationship Specialty Start Date End Date Vern Bernardo MD [address] [place] [address] PCP - General Internal Medicine 08/03/21 Ruddy Puri [address] [place] [address] Referring Cardiology 10/25/21 Nir Roth MD [facility] [address] [place] [address] Primary Staff Physician Cardiology 11/03/21 Ruddy Patricio, DO [address] [place] [address] Hematology/Oncology 12/25/21 Alexandra Chavez, RN Registered Nurse Women's Health Specialist 05/25/22 Ary Borden MD [address] [place] [address] Gynecology 06/01/22 Samra Cee APRN.STORE LOSS PREVENTION MANAGER [address] [place] [address] Gynecology 06/01/22 Deck Officer Relationship Specialty Start Date End Date Vern Bernardo MD [address] [place] [address] PCP - General Internal Medicine 08/03/21 Ruddy Puri [address] [place] [address] Referring Cardiology 10/25/21 Nir Roth MD [facility] [address] [place] [address] Primary Staff Physician Cardiology 11/03/21 Ruddy Patricio, [address] [place] [address] Hematology/Oncology 12/25/21 Alexandra Chavez, RN Registered Nurse Women's Health Specialist 05/25/22 Ary Borden MD [address] [place] [address] Gynecology 06/01/22 Samra Cee, MULTICUT LINE OPERATOR.STORE LOSS PREVENTION MANAGER [address] [place] [address] Gynecology 06/01/22 Deck Officer Relationship Specialty Start Date End Date Vern Bernardo MD [address] [place] [facility] [place] [address] PCP - General Internal Medicine 08/03/21 Ruddy Puri [address] [place] [address] Referring Cardiology 10/25/21 Nir Roth MD [facility] [address] [place] [address] Primary Staff Physician Cardiology 11/03/21 Ruddy Patricio, DO [address] [place] [address] Hematology/Oncology 12/25/21 Alexandra Chavez, RN Registered Nurse Women's Health Specialist 05/25/22 Ary Borden MD [address] [place] [address] Gynecology 06/01/22 Samra Cee, MULTICUT LINE OPERATOR.STORE LOSS PREVENTION MANAGER [address] [place] [address] Gynecology 06/01/22 Deck Officer Relationship Specialty Start Date End Date Vern Bernardo MD [address] [place], [place] [id number] PCP - General Internal Medicine 08/03/21 Ruddy Puri [address] [place] [address] Referring Cardiology 10/25/21 Nir Roth MD [facility] [address] [place] [address] Primary Staff Physician Cardiology 11/03/21 Ruddy Patricio, DO [address] [place] [address] Hematology/Oncology 12/25/21 Alexandra Chavez, RN Registered Nurse Women's Health Specialist 05/25/22 Ary Borden MD [address] [place] [address] Gynecology 06/01/22 Samra Cee, MULTICUT LINE OPERATOR.STORE LOSS PREVENTION MANAGER [address] [place] [address] Gynecology 06/01/22 Deck Officer Relationship Specialty Start Date End Date Vern Bernardo MD [address] [facility] [place] [address] PCP - General Internal Medicine 08/03/21 Ruddy Puri [address] [place] [address] Referring Cardiology 10/25/21 Nir Roth MD [facility] [address] [place] [address] Primary Staff Physician Cardiology 11/03/21 Ruddy Patricio, DO [address] [place] [address] Hematology/Oncology 12/25/21 Alexandra Chavez, RN Registered Nurse Women's Health Specialist 05/25/22 Ary Borden MD [address] [place] [address] Gynecology 06/01/22 Samra Cee, MULTICUT LINE OPERATOR.STORE LOSS PREVENTION MANAGER [address] [place] [address] Gynecology 06/01/22 Deck Officer Relationship Specialty Start Date End Date Vern Bernardo MD [address] [facility] [place] [address] PCP - General Internal Medicine 08/03/21 Ruddy Puri [address] [place] [address] Referring Cardiology 10/25/21 Nir Roth MD [facility] [address] [place] [address] Primary Staff Physician Cardiology 11/03/21 Ruddy Patricio, DO [address] [place] [address] Hematology/Oncology 12/25/21 Alexandra Chavez, RN Registered Nurse Women's Health Specialist 05/25/22 Ary Borden MD [address] [place] [address] Gynecology 06/01/22 Samra Cee, MULTICUT LINE OPERATOR.STORE LOSS PREVENTION MANAGER [address] [place] [address] Gynecology 06/01/22 Deck Officer Relationship Specialty Start Date End Date Vern Bernardo MD [address] [place] [address] PCP - General Internal Medicine 08/03/21 Ruddy Puri [address] [place] [address] Referring Cardiology 10/25/21 Nir Roth MD [facility] [address] [place] [address] Primary Staff Physician Cardiology 11/03/21 Ruddy Patricio, [address] [place] [address] Hematology/Oncology 12/25/21 Alexandra Chavez, RN Registered Nurse Women's Health Specialist 05/25/22 Ary Borden MD [address] [place] [address] Gynecology 06/01/22 Samra Cee, MULTICUT LINE OPERATOR.STORE LOSS PREVENTION MANAGER [address] [place] [address] Gynecology 06/01/22 Deck Officer Relationship Specialty Start Date End Date Vern Bernardo MD [address] [place] [address] PCP - General Internal Medicine 08/03/21 Ruddy Puri [address] [place] [address] Referring Cardiology 10/25/21 Nir Roth MD [facility] [address] [place] [address] Primary Staff Physician Cardiology 11/03/21 Ruddy Patricio, DO [address] [place], [place] [id number] Hematology/Oncology 12/25/21 Alexandra Chavez, RN Registered Nurse Women's Health Specialist 05/25/22 Ary Borden MD [address] [place] [address] Gynecology 06/01/22 Samra Cee, MULTICUT LINE OPERATOR.STORE LOSS PREVENTION MANAGER [address] [place] [address] Gynecology 06/01/22 Deck Officer Relationship Specialty Start Date End Date Vern Bernardo MD [address] [place], [place] [id number] PCP - General Internal Medicine 08/03/21 Ruddy Puri [address] [place] [address] Referring Cardiology 10/25/21 Nir Roth MD [facility] [address] [place] [address] Primary Staff Physician Cardiology 11/03/21 Ruddy Patricio, DO [address] [place] [address] Hematology/Oncology 12/25/21 Alexandra Chavez, RN Registered Nurse Women's Health Specialist 05/25/22 Ary Borden MD [address] [place], [place] [address] Gynecology 06/01/22 Samra Cee APRN.[facility] [address] [place] [address] Gynecology 06/01/22 Team Status: Active Member Role Status Dates Dr. Vern Bernardo MD Primary Care Provider Active Dr. Ruddy Puri MD Attending Provider, Referring Provider Active Team Status: Inactive Member Role Status Dates Dr. Vern Bernardo MD Primary Care Provider Active POP CABRALES Attending Provider, Referring Provider Active Team Status: Active Member Role Status Dates Dr. Vern Bernardo MD Primary Care Provider Active POP CABRALES Attending Provider Active Team Status: Active Member Role Status Dates Dr. Vern Bernardo MD Primary Care Provider Active Dr. Ruddy Patricio DO Attending Provider Active Team Status: Active Member Role Status Dates Dr. Vern Bernardo MD Primary Care Provider Active Dr. Ruddy Patricio DO Attending Provider Active SAMRA CEE SUPERVISOR BOTTLE MACHINES-C Referring Provider Active Deck Officer Relationship Specialty Start Date End Date Vern Bernardo MD [address] [place], [place] [id number] PCP - General Internal Medicine 08/03/21 Ruddy Puri [address] [place] [address] Referring Cardiology 10/25/21 Nir Roth MD [facility] [address] [place] [address] Primary Staff Physician Cardiology 11/03/21 Ruddy Patricio DO [address] [place], [place] [phone] Hematology/Oncology 12/25/21 Alexandra Chavez, REG Registered Nurse Women's Health Specialist 05/25/22 Ary Borden MD [address] [place] [address] Gynecology 06/01/22 Samra Cee APRN.STORE LOSS PREVENTION MANAGER [address] [place] [address] Gynecology 06/01/22 Team Status: Inactive Member Role Status Dates Dr. Vern Bernardo MD Primary Care Provider Active POP CABRALES Attending Provider Active Team Status: Inactive Member Role Status Dates Dr. Vern Bernardo MD Primary Care Provider Active Dr. Ruddy Patricio DO Attending Provider Active Deck Officer Relationship Specialty Start Date End Date Vern Bernardo MD [address] [place], [place] [phone] PCP - General Internal Medicine 08/03/21 Ruddy Puri [address] [place] [phone] Referring Cardiology 10/25/21 Nir Roth MD [facility] [address] [place] [address] Primary Staff Physician Cardiology 11/03/21 Ruddy Patricio DO [address] [facility] [place] [place] [address] Hematology/Oncology 12/25/21 Alexandra Chavez, RN Registered Nurse Women's Health Specialist 05/25/22 Ary Borden MD [address] [place] [address] Gynecology 06/01/22 Samra Cee, ARMANI.STORE LOSS PREVENTION MANAGER [address] [place] [address] Gynecology 06/01/22 Maegan Murguia RN Specialty Chief Of Service Oncology 06/14/22 Deck Officer Relationship Specialty Start Date End Date Vern Bernardo MD [address] [place] [place] [address] PCP - General Internal Medicine 08/03/21 Ruddy Puri [address] [place] [phone] Referring Cardiology 10/25/21 Nir Roth MD [facility] [address] [place], [place] [id number] Primary Staff Physician Cardiology 11/03/21 Ruddy Patricio DO [address] [place], [place] [phone] Hematology/Oncology 12/25/21 Alexandra Chavez, RN Registered Nurse Women's Health Specialist 05/25/22 Ary Borden MD [address] [place], [place] [phone] Gynecology 06/01/22 Samra Cee, MULTICUT LINE OPERATOR.STORE LOSS PREVENTION MANAGER [address] [place] [address] Gynecology 06/01/22 Team Status: Inactive Member Role Status Dates Dr. Vern Bernardo MD Primary Care Provider Active Dr. Ruddy Patricio DO Attending Provider Active ARLETH DAILEY Referring Provider Active Team Status: Active Member Role Status Dates Dr. Vern Bernardo MD Primary Care Provider Active ARLETH DAILEY Attending Provider, Referring P johanna Active Deck Officer Relationship Specialty Start Date End Date Vern Bernardo MD [address] [place] [phone] PCP - General Internal Medicine 08/03/21 Ruddy Puri [address] [place] [phone] Referring Cardiology 10/25/21 iNr Roth MD [facility] [address] [place] [address] Primary Staff Physician Cardiology 11/03/21 Ruddy Patricio DO [address] [place] [address] Hematology/Oncology 12/25/21 Alexandra Chavez, RN Registered Nurse Women's Health Specialist 05/25/22 Ary Borden MD [address] [place], [place] [phone] Gynecology 06/01/22 Samra Cee, MULTICUT LINE OPERATOR.STORE LOSS PREVENTION MANAGER [address] [place], [place] [phone] Gynecology 06/01/22 Maegan Murguia RN Specialty Chief Of Service Oncology 06/14/22 Team Status: Inactive Member Role Status Dates Dr. Vern Bernardo MD Primary Care Provider Active SAMRA CEE , MARIBELL-C Attending Provider, Referring P johanna Active Deck Officer Relationship Specialty Start Date End Date Vern Bernardo MD [address] [place], [place] [phone] PCP - General Internal Medicine 08/03/21 Ruddy Puri [address] [place] [address] Referring Cardiology 10/25/21 Nir Roth MD [facility] [address] [place] [address] Primary Staff Physician Cardiology 11/03/21 Ruddy Patricio DO [address] [place] [address] Hematology/Oncology 12/25/21 Alexandra Chavez, RN Registered Nurse Women's Health Specialist 05/25/22 Ary Borden MD [address] [place] [address] Gynecology 06/01/22 Samra Cee, MULTICUT LINE OPERATOR.STORE LOSS PREVENTION MANAGER [address] [place] [address] Gynecology 06/01/22 Maegan Murguia RN Specialty Chief Of Service Oncology 06/14/22 Deck Officer Relationship Specialty Start Date End Date Vern Bernardo MD [address] [place] [address] PCP - General Internal Medicine 08/03/21 Rdudy Puri [address] [facility] [address] Referring Cardiology 10/25/21 Nir Roth MD [facility] [address] [place] [address] Primary Staff Physician Cardiology 11/03/21 Ruddy Patricio, DO [address] [place], [place] 139461 Hematology/Oncology 12/25/21 Alexandra Chavez, RN Registered Nurse Women's Health Specialist 05/25/22 Ary Borden MD [address] [place], [place] [phone] Gynecology 06/01/22 Samra Cee, MULTICUT LINE OPERATOR.STORE LOSS PREVENTION MANAGER [address] [place] [address] Gynecology 06/01/22 Maegan Murguia, RN Specialty Chief Of Service Oncology 06/14/22 Deck Officer Relationship Specialty Start Date End Date Vern Bernardo MD [address] [place] [address] PCP - General Internal Medicine 08/03/21 Ruddy Puri [address] [place] [phone] Referring Cardiology 10/25/21 Nir Roth MD [facility] [address] [place], [place] 6184395 Primary Staff Physician Cardiology 11/03/21 Ruddy Patricio, DO [address] [place], [place] [phone] Hematology/Oncology 12/25/21 Alexandra Chavez, RN Registered Nurse Women's Health Specialist 05/25/22 Ary Borden MD [address] [place], [place] [phone] Gynecology 06/01/22 Samra Cee, MULTICUT LINE OPERATOR.STORE LOSS PREVENTION MANAGER [address] [place] [address] Gynecology 06/01/22 Maegan Murguia RN Specialty Chief Of Service Oncology 06/14/22 Deck Officer Relationship Specialty Start Date End Date Vern Bernardo MD [address] [place], [place] [id number] PCP - General Internal Medicine 08/03/21 Ruddy Puri [address] [place] [phone] Referring Cardiology 10/25/21 Nir Roth MD [facility] [address] [place] [address] Primary Staff Physician Cardiology 11/03/21 Ruddy Patricio, DO [address] [place], [place] [phone] Hematology/Oncology 12/25/21 Alexandra Chavez, RN Registered Nurse Women's Health Specialist 05/25/22 Ary Borden MD [address] [place] [address] Gynecology 06/01/22 Samra Cee, MULTICUT LINE OPERATOR.STORE LOSS PREVENTION MANAGER [address] [place] [address] Gynecology 06/01/22 Maegan Murguia RN Specialty Chief Of Service Oncology 06/14/22 Deck Officer Relationship Specialty Start Date End Date Vern Bernardo MD [address] [place], [place] [address] PCP - General Internal Medicine 08/03/21 Ruddy Puri [address] [place] [phone] Referring Cardiology 10/25/21 Nir Roth MD [facility] [address] [place], [place] 36[address] Primary Staff Physician Cardiology 11/03/21 Ruddy Patricio, [address] [place], [place] [phone] Hematology/Oncology 12/25/21 Alexandra Chavez, REG Registered Nurse Women's Health Specialist 05/25/22 Ary Borden MD [address] [place], [place] [phone] Gynecology 06/01/22 Samra Cee, MULTICUT LINE OPERATOR.STORE LOSS PREVENTION MANAGER [address] [place] [address] Gynecology 06/01/22 Maegan Murguia, REG Specialty Chief Of Service Oncology 06/14/22 Team Status: Inactive Member Role Status Dates Dr. Vern Bernardo MD Primary Care Provider, Referri Provider Active Terrell Gutiérrez PA, PA Attending Provider Active Team Status: Inactive Member Role Status Dates Dr. Vern Bernardo MD Primary Care Provider Active Dr. Constantnio Crisostomo MD Attending Provider Active Team Status: Inactive Member Role Status Dates Dr. Vern Bernardo MD Primary Care Provider Active ARLETH DAILEY Attending Provider Active Team Status: Active Member Role Status Dates Dr. Vern Bernardo MD Primary Care Provider Active ARLETH DAILEY Attending Provider Active Team Status: Inactive Member Role Status Dates Dr. Vern Bernardo MD Primary Care Provider Active Dr. Monica Dueñas MD Emergency Provider Active Deck Officer Relationship Specialty Start Date End Date Vern Bernardo MD [address] [place] [address] PCP - General Internal Medicine 08/03/21 Ruddy Puri [address] [place] [address] Referring Cardiology 10/25/21 Nir Roth MD [facility] [address] [place] [address] Primary Staff Physician Cardiology 11/03/21 Ruddy Patricio, DO [address] [place] [address] Hematology/Oncology 12/25/21 Alexandra Chavez, REG Registered Nurse Women's Health Specialist 05/25/22 Ary Borden MD [address] [place] [address] Gynecology 06/01/22 Samra Cee, MULTICUT LINE OPERATOR.[facility] [address] [place] [address] Gynecology 06/01/22 Maegan Murguia, RN Specialty Chief Of Service Oncology 06/14/22 Deck Officer Relationship Specialty Start Date End Date Vern Bernardo MD [address] [place] [address] PCP - General Internal Medicine 08/03/21 Ruddy Puri [address] [place] [phone] Referring Cardiology 10/25/21 Nir Roth MD [facility] [address] [place] [address] Primary Staff Physician Cardiology 11/03/21 Ruddy Patricio, DO [address] [facility] [place] [phone] Hematology/Oncology 12/25/21 Alexandra Chavez, RN Registered Nurse Women's Health Specialist 05/25/22 Ary Borden MD [address] [place] [address] Gynecology 06/01/22 Samra Cee, MULTICUT LINE OPERATOR.STORE LOSS PREVENTION MANAGER [address] [place] [address] Gynecology 06/01/22 Maegan Murguia RN Specialty Chief Of Service Oncology 06/14/22 Deck Officer Relationship Specialty Start Date End Date Vern Bernardo MD [address] [place], [place] [phone] PCP - General Internal Medicine 08/03/21 Ruddy Puri [address] [place] [phone] Referring Cardiology 10/25/21 Nir Roth MD [facility] [address] [place] [address] Primary Staff Physician Cardiology 11/03/21 Ruddy Patricio, DO [address] [facility] [place] [place] [address] Hematology/Oncology 12/25/21 Alexandra Chavez, RN Registered Nurse Women's Health Specialist 05/25/22 Ary Borden MD [address] [place], [place] [address]044595 Gynecology 06/01/22 Samra Cee APRN.STORE LOSS PREVENTION MANAGER [address] [place] [address] Gynecology 06/01/22 Maegan Murguia RN Specialty Chief Of Service Oncology 06/14/22 Team Status: Active Member Role Status Dates Dr. Vern Bernardo MD Primary Care Provider Active Dr. João Palacios MD Emergency Provider Active Dr. Sai Lee MD Admit Provider, Other Provider Active Dr. Piedad Hester MD Referring Provider, Other Provid er Active Dr. Khari Oliva , DO Other Provider Active Dr. Pravin Martínez MD Attending Provider, Other Provid er Active Dr. Bud Hanna , DO Other Provider Active Dr. Wade Marcus MD Other Provider Active Dr. Kane Borges MD Other Provider Active Nani Crowder SUPERVISOR BOTTLE MACHINES, SUPERVISOR BOTTLE MACHINES-C Other Provider Active Deck Officer Relationship Specialty Start Date End Date Vern Bernardo MD [address] [place] [address] PCP - General Internal Medicine 08/03/21 Ruddy Puri [address] [facility] [place] [address] Referring Cardiology 10/25/21 Nir Roth MD [facility] [address] [place] [address] Primary Staff Physician Cardiology 11/03/21 Ruddy Patricio DO [address] [place] [address] Hematology/Oncology 12/25/21 Alexandra Chavez, REG Registered Nurse Women's Health Specialist 05/25/22 Ary Borden MD [address] [place] [address] Gynecology 06/01/22 Samra Cee MULTICUT LINE OPERATOR.STORE LOSS PREVENTION MANAGER [address] [place] [address] Gynecology 06/01/22 Maegan Murguia RN Specialty Chief Of Service Oncology 06/14/22 Deck Officer Relationship Specialty Start Date End Date Vern Bernardo MD [address] [facility], [place] [address] PCP - General Internal Medicine 08/03/21 Ruddy Puri [address] [facility] [phone] 911- Referring Cardiology 10/25/21 Nir Roth MD [facility] [address] [place] [address] Primary Staff Physician Cardiology 11/03/21 Ruddy Patricio, DO [address] [place] [address] Hematology/Oncology 12/25/21 Alexandra Chavez, RN Registered Nurse Women's Health Specialist 05/25/22 Ary Borden MD [address] [place] [address] Gynecology 06/01/22 Samra Cee, MULTICUT LINE OPERATOR.STORE LOSS PREVENTION MANAGER [address] [place] [address] Gynecology 06/01/22 Maegan Murguia RN Specialty Chief Of Service Oncology 06/14/22 Deck Officer Relationship Specialty Start Date End Date Vern Bernardo MD [address] [facility] [place] [place] [address] PCP - General Internal Medicine 08/03/21 Ruddy Puri [address] [place] [phone] Referring Cardiology 10/25/21 Nir Roth MD [facility] [address] [place] [address] Primary Staff Physician Cardiology 11/03/21 Ruddy Patricio, DO [address] [place] [address] Hematology/Oncology 12/25/21 Alexandra Chavez, RN Registered Nurse Women's Health Specialist 05/25/22 Ary Borden MD [address] [place] [address] Gynecology 06/01/22 Samra Cee, ARMANI.STORE LOSS PREVENTION MANAGER [address] [place] [address] Gynecology 06/01/22 Maegan Murguia RN Specialty Chief Of Service Oncology 06/14/22 Deck Officer Relationship Specialty Start Date End Date Vern Bernardo MD [address] [place] [address] PCP - General Internal Medicine 08/03/21 Ruddy Puri [address] [place] [address] Referring Cardiology 10/25/21 Nir Roth MD [facility] [address] [place] [address] Primary Staff Physician Cardiology 11/03/21 Ruddy Patricio, DO [address] [place] [address] Hematology/Oncology 12/25/21 Alexandra Chavez, RN Registered Nurse Women's Health Specialist 05/25/22 Ary Borden MD [address] [place], [place] 1397[address] Gynecology 06/01/22 Samra Cee, MULTICUT LINE OPERATOR.STORE LOSS PREVENTION MANAGER [address] [place] [address] Gynecology 06/01/22 Maegan Murguia RN Specialty Chief Of Service Oncology 06/14/22 Deck Officer Relationship Specialty Start Date End Date Vern Bernardo MD [address] [place], [place] [address] PCP - General Internal Medicine 08/03/21 Ruddy Puri [address] [facility] [place] [address] Referring Cardiology 10/25/21 Nir Roth MD [facility] [address] [place] [address] Primary Staff Physician Cardiology 11/03/21 Ruddy Patricio DO [address] [place] [address] Hematology/Oncology 12/25/21 Alexandra Chavez, RN Registered Nurse Women's Health Specialist 05/25/22 Ary Borden MD [address] [place] [address] Gynecology 06/01/22 Samra Cee, MULTICUT LINE OPERATOR.STORE LOSS PREVENTION MANAGER [address] [place] [address] Gynecology 06/01/22 Maegan Murguia RN Specialty Chief Of Service Oncology 06/14/22 Team Status: Active Member Role Status Dates Dr. Vern Bernardo MD Primary Care Provider Active Dr. Vince Morse MD Attending Provider Active Team Status: Inactive Member Role Status Dates Dr. Vern Bernardo MD Primary Care Provider Active Dr. Monica Dueñas MD Attending Provider, Emergency Provider Active Team Status: Inactive Member Role Status Dates Dr. Vern Bernardo MD Primary Care Provider Active Dr. Ruddy Patricio DO Attending Provider, Referring Prov ider Active Deck Officer Relationship Specialty Start Date End Date Vern Bernardo MD [address] [place] [address] PCP - General Internal Medicine 08/03/21 Ruddy Puri [address] [place] [address] Referring Cardiology 10/25/21 Nir Roth MD [facility] [address] [place] [address] Primary Staff Physician Cardiology 11/03/21 Ruddy Patricio DO [address] [place] [address] Hematology/Oncology 12/25/21 Alexandra Chavez, RN Registered Nurse Women's Health Specialist 05/25/22 Ary Borden MD [address] [place] [address] Gynecology 06/01/22 Samra Cee, MULTICUT LINE OPERATOR.STORE LOSS PREVENTION MANAGER [address] [place] [address] Gynecology 06/01/22 Maegan Murguia, REG Specialty Chief Of Service Oncology 06/14/22 Deck Officer Relationship Specialty Start Date End Date Vern Bernardo MD [address] [place] [address] PCP - General Internal Medicine 08/03/21 Ruddy Puri [address] [place] [phone] Referring Cardiology 10/25/21 Nir Roth MD [facility] [address] [place], [place] [phone] Primary Staff Physician Cardiology 11/03/21 Ruddy Patricio, DO [address] [place] [address] Hematology/Oncology 12/25/21 Alexandra Chavez, RN Registered Nurse Women's Health Specialist 05/25/22 Ary Borden MD [address] [place] [address] Gynecology 06/01/22 Samra Cee, MULTICUT LINE OPERATOR.STORE LOSS PREVENTION MANAGER [address] [place] [address] Gynecology 06/01/22 Maegan Murguia RN Specialty Chief Of Service Oncology 06/14/22 Deck Officer Relationship Specialty Start Date End Date Vern Bernardo MD [address] [place] [address] PCP - General Internal Medicine 08/03/21 Ruddy Puri [address] [place] [address] Referring Cardiology 10/25/21 Nir Roth MD [facility] [address] [place] [address] Primary Staff Physician Cardiology 11/03/21 Ruddy Patricio, DO [address] [place] [address] Hematology/Oncology 12/25/21 Alexandra Chavez, RN Registered Nurse Women's Health Specialist 05/25/22 Ary Borden MD [address] [place] [address] Gynecology 06/01/22 Samra Cee, MULTICUT LINE OPERATOR.STORE LOSS PREVENTION MANAGER [address] [place] [address] Gynecology 06/01/22 Doup, Maegan, RN Specialty Chief Of Service Oncology 06/14/22 Deck Officer Relationship Specialty Start Date End Date Vern Bernardo MD [address] [facility] [place] [address] PCP - General Internal Medicine 08/03/21 Ruddy Puri [address] [place] [address] Referring Cardiology 10/25/21 Nir Roth MD [facility] [address] [place] [address] Primary Staff Physician Cardiology 11/03/21 Ruddy Patricio, [address] [place] [address] Hematology/Oncology 12/25/21 Alexandra Chavez, REG Registered Nurse Women's Health Specialist 05/25/22 Ary Borden MD [address] [place] [address] Gynecology 06/01/22 Samra Cee, MULTICUT LINE OPERATOR.STORE LOSS PREVENTION MANAGER [address] [place] [address] Gynecology 06/01/22 Maegan Murguia RN Specialty Chief Of Service Oncology 06/14/22 Deck Officer Relationship Specialty Start Date End Date Vern Bernardo MD [address] [facility] [place] [address] PCP - General Internal Medicine 08/03/21 Ruddy Puri [address] [place] [phone] Referring Cardiology 10/25/21 Nir Roth MD [facility] [address] [place] [address] Primary Staff Physician Cardiology 11/03/21 Ruddy Patricio DO [address] [place], [place] [address] Hematology/Oncology 12/25/21 Alexandra Chavez, RN Registered Nurse Women's Health Specialist 05/25/22 Ary Borden MD [address] [place] [address] Gynecology 06/01/22 Samra Cee APRN.STORE LOSS PREVENTION MANAGER [address] [place] [address] Gynecology 06/01/22 Maegan Murguia RN Specialty Chief Of Service Oncology 06/14/22 Deck Officer Relationship Specialty Start Date End Date Vern Bernardo MD [address] [place], [place] [id number] PCP - General Internal Medicine 08/03/21 Ruddy Puri [address] [place] [phone] Referring Cardiology 10/25/21 Nir Roth MD [facility] [address] [place], [place] 2436795 Primary Staff Physician Cardiology 11/03/21 Ruddy Patricio DO [address] [place] [address] Hematology/Oncology 12/25/21 Alexandra Chavez, RN Registered Nurse Women's Health Specialist 05/25/22 Ary Borden MD [address] [place] [address] Gynecology 06/01/22 Samra Cee APRN.STORE LOSS PREVENTION MANAGER [address] [place] [address] Gynecology 06/01/22 Maegan Murguia RN Specialty Chief Of Service Oncology 06/14/22 Deck Officer Relationship Specialty Start Date End Date Vern Bernardo MD [address] [place], [place] [address] PCP - General Internal Medicine 08/03/21 Ruddy Puri [address] [place] [phone] Referring Cardiology 10/25/21 Nir Roth MD [facility] [address] [place], [place] 829[address]95 Primary Staff Physician Cardiology 11/03/21 Ruddy Patricio DO [address] [place], [place] [phone] Hematology/Oncology 12/25/21 Alexandra Chavez, RN Registered Nurse Women's Health Specialist 05/25/22 Ary Borden MD [address] [place] [address] Gynecology 06/01/22 Samra Cee, MULTICUT LINE OPERATOR.STORE LOSS PREVENTION MANAGER [address] [place] [address] Gynecology 06/01/22 Maegan Murguia, RN Specialty Chief Of Service Oncology 06/14/22 Deck Officer Relationship Specialty Start Date End Date Vern Bernardo MD [address] [place], [place] [id number] PCP - General Internal Medicine 08/03/21 Ruddy Puri [address] [facility] [place] [phone] Referring Cardiology 10/25/21 Nir Roth MD [facility] [address] [place], [place] [phone] Primary Staff Physician Cardiology 11/03/21 Ruddy Patricio DO [address] [place], [place] [phone] Hematology/Oncology 12/25/21 Alexandra Chavez, RN Registered Nurse Women's Health Specialist 05/25/22 Ary Borden MD [address] [place], [place] [phone] Gynecology 06/01/22 Samra Cee, MULTICUT LINE OPERATOR.STORE LOSS PREVENTION MANAGER [address] [place], [place] [address]257395 Gynecology 06/01/22 Maegan Murguia RN Specialty Chief Of Service Oncology 06/14/22 Deck Officer Relationship Specialty Start Date End Date Vern Bernardo MD [address] [place], [place] [id number] PCP - General Internal Medicine 08/03/21 Ruddy Puri [address] [place] [address] Referring Cardiology 10/25/21 Nir Roth MD [facility] [address] [place] [address] Primary Staff Physician Cardiology 11/03/21 Ruddy Patricio DO [address] [place] [address] Hematology/Oncology 12/25/21 Alexandra Chavez, RN Registered Nurse Women's Health Specialist 05/25/22 Ary Borden MD [address] [place] [address] Gynecology 06/01/22 Samra Cee APRN.STORE LOSS PREVENTION MANAGER [address] [place] [address] Gynecology 06/01/22 Maegan Murguia RN Specialty Chief Of Service Oncology 06/14/22 Deck Officer Relationship Specialty Start Date End Date Vern Bernardo MD [address] [place], [place] [id number] PCP - General Internal Medicine 08/03/21 Ruddy Puri [address] [place] [phone] Referring Cardiology 10/25/21 Nir Roth MD [facility] [address] [place], [place] [phone] Primary Staff Physician Cardiology 11/03/21 Ruddy Patricio DO [address] [place] [address] Hematology/Oncology 12/25/21 Alexandra Chavez, RN Registered Nurse Women's Health Specialist 05/25/22 Ary Borden MD [address] [place], [place] 3000395 Gynecology 06/01/22 Samra Cee APRN.STORE LOSS PREVENTION MANAGER [address] [place] [address] Gynecology 06/01/22 Maegan Murguia, REG Specialty Chief Of Service Oncology 06/14/22 Deck Officer Relationship Specialty Start Date End Date Vern Bernardo MD [address] [place] [place], [place] [address] PCP - General Internal Medicine 08/03/21 Ruddy Puri [address] [place] [phone] Referring Cardiology 10/25/21 Nir Roth MD [facility] [address] [place], [place] 9938295 Primary Staff Physician Cardiology 11/03/21 Ruddy Patricio DO [address] [place], [place] [phone] Hematology/Oncology 12/25/21 Alexandra Chavez, RN Registered Nurse Women's Health Specialist 05/25/22 Ary Borden MD [address] [place] [address] Gynecology 06/01/22 Samra Cee, MULTICUT LINE OPERATOR.STORE LOSS PREVENTION MANAGER [address] [place] [address] Gynecology 06/01/22 Maegan Murguia, REG Specialty Chief Of Service Oncology 06/14/22 Team Status: Inactive Member Role Status Dates Dr. Vern Bernardo MD Primary Care Pro vider, Attending Provider, Referring Provider Active Deck Officer Relationship Specialty Start Date End Date Vern Bernardo MD [address] [place], [place] [id number] PCP - General Internal Medicine 08/03/21 Ruddy Puri [address] [place] [phone] Referring Cardiology 10/25/21 Nir Roth MD [facility] [address] [place] [address] Primary Staff Physician Cardiology 11/03/21 Ruddy Patricio DO [address] [place], [place] [id number] Hematology/Oncology 12/25/21 Alexandra Chavez, REG Registered Nurse Women's Health Specialist 05/25/22 Ary Borden MD [address] [place] [address] Gynecology 06/01/22 Samra Cee, MULTICUT LINE OPERATOR.STORE LOSS PREVENTION MANAGER [address] [place] [address] Gynecology 06/01/22 Maegan Murguia RN Specialty Chief Of Service Oncology 06/14/22 Deck Officer Relationship Specialty Start Date End Date Vern Bernardo MD [address] [place], [place] [id number] PCP - General Internal Medicine 08/03/21 Ruddy Puri [address] [facility] [place] [phone] Referring Cardiology 10/25/21 Nir Roth MD [facility] [address] [place] [address] Primary Staff Physician Cardiology 11/03/21 Ruddy Patricio DO [address] [place], [place] [address]761 Hematology/Oncology 12/25/21 Alexandra Chavez, RN Registered Nurse Women's Health Specialist 05/25/22 Ary Borden MD [address] [place] [address] Gynecology 06/01/22 Samra Cee, MULTICUT LINE OPERATOR.STORE LOSS PREVENTION MANAGER [address] [place] [address] Gynecology 06/01/22 Maegan Murguia RN Specialty Chief Of Service Oncology 06/14/22 Deck Officer Relationship Specialty Start Date End Date Vern Bernardo MD [address] [place], [place] [id number] PCP - General Internal Medicine 08/03/21 Ruddy Puri [address] [place] [phone] Referring Cardiology 10/25/21 Nir Roth MD [facility] [address] [place] [address] Primary Staff Physician Cardiology 11/03/21 Ruddy Patricio DO [address] [place], [place] 377201 Hematology/Oncology 12/25/21 Alexandra Chavez, RN Registered Nurse Women's Health Specialist 05/25/22 Ary Borden MD [address] [place] [address] Gynecology 06/01/22 Samra Cee APRN.STORE LOSS PREVENTION MANAGER [facility] [place] [address] Gynecology 06/01/22 Maegan Murguia RN Specialty Chief Of Service Oncology 06/14/22 Deck Officer Relationship Specialty Start Date End Date Vern Bernardo MD [address] [place] [place], [place] 158261 PCP - General Internal Medicine 08/03/21 Ruddy Puri [address] [place] [phone] Referring Cardiology 10/25/21 Nir Roth MD [facility] [address] [place] [address] Primary Staff Physician Cardiology 11/03/21 Ruddy Patricio DO [address] [place], [place] 005861 Hematology/Oncology 12/25/21 Alexandra Chavez, REG Registered Nurse Women's Health Specialist 05/25/22 Ary Borden MD [address] [place] [address] Gynecology 06/01/22 Samra Cee APRN.STORE LOSS PREVENTION MANAGER [facility] [place] [address] Gynecology 06/01/22 Maegan Murguia, RN Specialty Chief Of Service Oncology 06/14/22 Tiffany To LISW [address] [place] [address] Metal Shaping Machine Operator Hematology/Oncology 12/28/22 Deck Officer Relationship Specialty Start Date End Date Vern Bernardo MD [address] [place] [address] PCP - General Internal Medicine 08/03/21 Ruddy Puri [address] [place] [phone] Referring Cardiology 10/25/21 Nir Roth MD [facility] [address] [place], [place] [phone] Primary Staff Physician Cardiology 11/03/21 Ruddy Patricio DO [address] [place], [place] 235851 Hematology/Oncology 12/25/21 Alexandra Chavez, REG Registered Nurse Women's Health Specialist 05/25/22 Ary Borden MD [address] [place], [place] [phone] Gynecology 06/01/22 Samra Cee, MULTICUT LINE OPERATOR.STORE LOSS PREVENTION MANAGER [address] [place] [address] Gynecology 06/01/22 Maegan Murguia, REG Specialty Chief Of Service Oncology 06/14/22 Tiffany To LISW [address] [place] [address] Metal Shaping Machine Operator Hematology/Oncology 12/28/22 Deck Officer Relationship Specialty Start Date End Date Vern Bernardo MD [address] [place] [address] PCP - General Internal Medicine 08/03/21 Ruddy Puri MD [address] [place] [phone] Referring Cardiology 10/25/21 Nir Roth MD [facility] [address] [place], [place] [phone] Primary Staff Physician Cardiology 11/03/21 Ruddy Patricio DO [address] [place], [place] 528431 Hematology/Oncology 12/25/21 Alexandra Chavez, REG Registered Nurse Women's Health Specialist 05/25/22 Ary Borden MD [address] [place] [address] Gynecology 06/01/22 Samra Cee, MULTICUT LINE OPERATOR.STORE LOSS PREVENTION MANAGER [address] [place], [place] [phone] Gynecology 06/01/22 Maegan Murguia, REG Specialty Chief Of Service Oncology 06/14/22 Deck Officer Relationship Specialty Start Date End Date Vern Bernardo MD [address] [place], [place] [id number] PCP - General Internal Medicine 08/03/21 Ruddy Puri MD [address] [place] [phone] Referring Cardiology 10/25/21 Nir Roth MD [facility] [address] [place] [address] Primary Staff Physician Cardiology 11/03/21 Ruddy Patricio DO [address] [place] [address] Hematology/Oncology 12/25/21 Alexandra Chavez, RN Registered Nurse Women's Health Specialist 05/25/22 Ary Borden MD [address] [place] [address] Gynecology 06/01/22 Samra Cee APRN.STORE LOSS PREVENTION MANAGER [address] [place] [address] Gynecology 06/01/22 Maegan Murguia RN Specialty Chief Of Service Oncology 06/14/22 Deck Officer Relationship Specialty Start Date End Date Vern Bernardo MD [address] [place], [place] [id number] PCP - General Internal Medicine 08/03/21 Ruddy Puri MD [address] [place] [phone] Referring Cardiology 10/25/21 Nir Roth MD [facility] [address] [place], [place] [phone] Primary Staff Physician Cardiology 11/03/21 Ruddy Patricio DO [address] [place] [address] Hematology/Oncology 12/25/21 Alexandra Chavez, RN Registered Nurse Women's Health Specialist 05/25/22 Ary Borden MD [address] [facility] [place] [address] Gynecology 06/01/22 Samra Cee APRN.STORE LOSS PREVENTION MANAGER [address] [place] [address] Gynecology 06/01/22 Maegan Murguia RN Specialty Chief Of Service Oncology 06/14/22 Deck Officer Relationship Specialty Start Date End Date Vern Bernardo MD [address] [facility] Char [place], [place] [phone] PCP - General Internal Medicine 08/03/21 Ruddy Puri MD [address] [place] [phone] Referring Cardiology 10/25/21 Nir Roth MD [facility] [address] [place], [place] [phone] Primary Staff Physician Cardiology 11/03/21 Ruddy Patricio DO [address] [place], [place] [phone] Hematology/Oncology 12/25/21 Alexandra Chavez, RN Registered Nurse Women's Health Specialist 05/25/22 Ary Borden MD [address] [place] [address] Gynecology 06/01/22 Samra Cee, MULTICUT LINE OPERATOR.[facility] [address] [place] [address] Gynecology 06/01/22 Maegan Murguia RN Specialty Chief Of Service Oncology 06/14/22 Deck Officer Relationship Specialty Start Date End Date Vern Bernardo MD [address] [place], [place] [id number] PCP - General Internal Medicine 08/03/21 uRddy Puri MD [address] [place] [phone] Referring Cardiology 10/25/21 Nir Roth MD [facility] [address] [place] [address] Primary Staff Physician Cardiology 11/03/21 Ruddy Patricio DO [address] [place], [place] 506441 Hematology/Oncology 12/25/21 Alexandra Chavez, RN Registered Nurse Women's Health Specialist 05/25/22 Ary Borden MD [address] [place] [address] Gynecology 06/01/22 Samra Cee, MULTICUT LINE OPERATOR.STORE LOSS PREVENTION MANAGER [address] [place] [address] Gynecology 06/01/22 Maegan Murguia RN Specialty Chief Of Service Oncology 06/14/22 Tiffany oT LISW [address] [place] [address] Metal Shaping Machine Operator Hematology/Oncology 12/28/22 Deck Officer Relationship Specialty Start Date End Date Vern Bernardo MD [address] [place], [place] 053081 PCP - General Internal Medicine 08/03/21 Ruddy Puri MD [address] [place] [phone] Referring Cardiology 10/25/21 Nir Roth MD [facility] [address] [place] [address] Primary Staff Physician Cardiology 11/03/21 Ruddy Patricio DO [address] [place], [place] 475121 Hematology/Oncology 12/25/21 Alexandra Chavez, RN Registered Nurse Women's Health Specialist 05/25/22 Ary Borden MD [address] [place] [phone] Gynecology 06/01/22 Samra Cee, MULTICUT LINE OPERATOR.STORE LOSS PREVENTION MANAGER [address] [place] [phone] Gynecology 06/01/22 Maegan Murguia RN Specialty Chief Of Service Oncology 06/14/22 Tiffany To LISW [address] [place] [address] Metal Shaping Machine Operator Hematology/Oncology 12/28/22 Deck Officer Relationship Specialty Start Date End Date Vern Bernardo MD [address] [place], [place] [phone] PCP - General Internal Medicine 08/03/21 Ruddy Puri MD [address] [place] [phone] Referring Cardiology 10/25/21 Nir Roth MD [facility] [address] [place] [address] Primary Staff Physician Cardiology 11/03/21 Ruddy Patricio DO [address] [place] [address] Hematology/Oncology 12/25/21 Alexandra Chavez, RN Registered Nurse Women's Health Specialist 05/25/22 Ary Borden MD [address] [place] [address] Gynecology 06/01/22 Samra Cee APRN.STORE LOSS PREVENTION MANAGER [address] [place], [place] [phone] Gynecology 06/01/22 Maegan Murguia RN Specialty Chief Of Service Oncology 06/14/22 Tiffany To LISW [address] [place] [address] Metal Shaping Machine Operator Hematology/Oncology 12/28/22 Deck Officer Relationship Specialty Start Date End Date Vern Bernardo MD [address] [place], [place] 279441 PCP - General Internal Medicine 08/03/21 Ruddy Puri MD [address] [place] [phone] Referring Cardiology 10/25/21 Nir Roth MD [facility] [address] [place] [address] Primary Staff Physician Cardiology 11/03/21 Ruddy Patricio DO [address] [place] [address] Hematology/Oncology 12/25/21 Alexandra Chavez, REG Registered Nurse Women's Health Specialist 05/25/22 Ary Borden MD [address] [place] [address] Gynecology 06/01/22 Samra Cee MULTICUT LINE OPERATOR.STORE LOSS PREVENTION MANAGER [address] [place] [address] Gynecology 06/01/22 Maegan Murguia RN Specialty Chief Of Service Oncology 06/14/22 Tiffany To LISW [address] [place] [address] Metal Shaping Machine Operator Hematology/Oncology 12/28/22 Deck Officer Relationship Specialty Start Date End Date Vern Bernardo MD [address] [place], [place] 159401 PCP - General Internal Medicine 08/03/21 Ruddy Puri MD [address] [place] [address] Referring Cardiology 10/25/21 Nir Roth MD [facility] [address] [place] [address] Primary Staff Physician Cardiology 11/03/21 Ruddy Patricio DO [address] [place], [place] [phone] Hematology/Oncology 12/25/21 Alexandra Chavez, RN Registered Nurse Women's Health Specialist 05/25/22 Ary Borden MD [address] [place] [address] Gynecology 06/01/22 Samra Cee, MULTICUT LINE OPERATOR.STORE LOSS PREVENTION MANAGER [address] [place] [address] Gynecology 06/01/22 Maegan Murguia RN Specialty Chief Of Service Oncology 06/14/22 Tiffany To LISW [address] [place] [address] Metal Shaping Machine Operator Hematology/Oncology 12/28/22 Deck Officer Relationship Specialty Start Date End Date Vern Bernardo MD [address] [place] [address] PCP - General Internal Medicine 08/03/21 Ruddy Puri MD [address] [facility] [place] [phone] Referring Cardiology 10/25/21 Nir Roth MD [facility] [address] [place] [address] Primary Staff Physician Cardiology 11/03/21 Ruddy Patricio DO [address] [place], [place] 405211 Hematology/Oncology 12/25/21 Alexandra Chavez, REG Registered Nurse Women's Health Specialist 05/25/22 Ary Borden MD [address] [place] [address] Gynecology 06/01/22 Samra Cee, MULTICUT LINE OPERATOR.[facility] [address] [place] [address] Gynecology 06/01/22 Maegan Murguia RN Specialty Chief Of Service Oncology 06/14/22 Tiffany To LISW [address] [place] [address] Metal Shaping Machine Operator Hematology/Oncology 12/28/22 Deck Officer Relationship Specialty Start Date End Date Vern Bernardo MD [address] [place], [place] 064311 PCP - General Internal Medicine 08/03/21 Ruddy Puri MD [address] [place] [phone] Referring Cardiology 10/25/21 Nir Roth MD [facility] [address] [place] [address] Primary Staff Physician Cardiology 11/03/21 Ruddy Patricio DO [address] [place], [place] 428451 Hematology/Oncology 12/25/21 Alexandra Chavez, REG Registered Nurse Women's Health Specialist 05/25/22 Ary Borden MD [address] [place] [address] Gynecology 06/01/22 Samra Cee, MULTICUT LINE OPERATOR.STORE LOSS PREVENTION MANAGER [facility] [place], [place] [phone] Gynecology 06/01/22 Maegan Murguia RN Specialty Chief Of Service Oncology 06/14/22 Tiffany To LISW [address] [place] [address] Metal Shaping Machine Operator Hematology/Oncology 12/28/22 Deck Officer Relationship Specialty Start Date End Date Vern Bernardo MD [address] [place], [place] [id number] PCP - General Internal Medicine 08/03/21 Ruddy Puri MD [address] [place] [address] Referring Cardiology 10/25/21 Nir Roth MD [facility] [address] [place] [address] Primary Staff Physician Cardiology 11/03/21 Ruddy Patricio DO [address] [place] [address] Hematology/Oncology 12/25/21 Alexandra Chavez, RN Registered Nurse Women's Health Specialist 05/25/22 Ary Borden MD [address] [place] [address] Gynecology 06/01/22 Samra Cee APRN.STORE LOSS PREVENTION MANAGER [address] [place] [address] Gynecology 06/01/22 Maegan Murguia RN Specialty Chief Of Service Oncology 06/14/22 Tiffany To LISW [address] [place] [address] Metal Shaping Machine Operator Hematology/Oncology 12/28/22 Deck Officer Relationship Specialty Start Date End Date Vern Bernardo MD [address] [place] [address] PCP - General Internal Medicine 08/03/21 Ruddy Puri MD [address] [place] [address] Referring Cardiology 10/25/21 Nir Roth MD [facility] [address] [place], [place] [phone] Primary Staff Physician Cardiology 11/03/21 Ruddy Patricio DO [address] [place] [address] Hematology/Oncology 12/25/21 Alexandra Chavez, RN Registered Nurse Women's Health Specialist 05/25/22 Ary Borden MD [address] [place] [address] Gynecology 06/01/22 Samra Cee APRN.STORE LOSS PREVENTION MANAGER [address] [place] [address] Gynecology 06/01/22 Maegan Murguia RN Specialty Chief Of Service Oncology 06/14/22 Tiffany To, SILAS [address] [place] [address] Metal Shaping Machine Operator Hematology/Oncology 12/28/22 Deck Officer Relationship Specialty Start Date End Date Vern Bernardo MD [address] [place] [address] PCP - General Internal Medicine 08/03/21 Ruddy Puri MD [address] [place] [address] Referring Cardiology 10/25/21 Nir Roth MD [facility] [address] [place] [address] Primary Staff Physician Cardiology 11/03/21 Ruddy Patricio DO [address] [place] [address] Hematology/Oncology 12/25/21 Alexandra Chavez, RN Registered Nurse Women's Health Specialist 05/25/22 Ary Borden MD [address] [place] [address] Gynecology 06/01/22 Samra Cee, MULTICUT LINE OPERATOR.STORE LOSS PREVENTION MANAGER [address] [place] [address] Gynecology 06/01/22 Maegan Murguia RN Specialty Chief Of Service Oncology 06/14/22 Tiffany To, SILAS [address] [place] [address] Metal Shaping Machine Operator Hematology/Oncology 12/28/22 Deck Officer Relationship Specialty Start Date End Date Vern Bernardo MD [address] [place] [address] PCP - General Internal Medicine 08/03/21 Ruddy Puri MD [address] [place] [address] Referring Cardiology 10/25/21 Nir Roth MD [address] [address] Primary Staff Physician Cardiology 11/03/21 Ruddy Patricio DO [address] [place], [place] 423421 Hematology/Oncology 12/25/21 Alexandra Chavez RN Registered Nurse Women's Health Specialist 05/25/22 Ary Borden MD [address] [place] [address] Gynecology 06/01/22 Samra Cee, MULTICUT LINE OPERATOR.STORE LOSS PREVENTION MANAGER [address] [place] [address] Gynecology 06/01/22 Maegan Murguia RN Specialty Chief Of Service Oncology 06/14/22 Tiffany To LISW [address] [place] [address] Metal Shaping Machine Operator Hematology/Oncology 12/28/22 Deck Officer Relationship Specialty Start Date End Date Vern Bernardo MD [address] [place], [place] 020361 PCP - General Internal Medicine 08/03/21 Ruddy Puri MD [address] [place] [address] Referring Cardiology 10/25/21 Nir Roth MD [place] 023750 [place] [address] Primary Staff Physician Cardiology 11/03/21 Ruddy Patricio DO [address] [place], [place] 840231 Hematology/Oncology 12/25/21 Alexandra Chavez, REG Registered Nurse Women's Health Specialist 05/25/22 Ary Borden MD [address] [place] [address] Gynecology 06/01/22 Samra Cee, MULTICUT LINE OPERATOR.STORE LOSS PREVENTION MANAGER [facility] [place] [address] Gynecology 06/01/22 Maegan Murguia RN Specialty Chief Of Service Oncology 06/14/22 Tiffany To LISW [address] [place] [address] Metal Shaping Machine Operator Hematology/Oncology 12/28/22 Deck Officer Relationship Specialty Start Date End Date Vern Bernardo MD [address] [place] [address] PCP - General Internal Medicine 08/03/21 Ruddy Puri MD [address] [place] [address] Referring Cardiology 10/25/21 Nir Roth MD [facility] [address] [place] [address] Primary Staff Physician Cardiology 11/03/21 Ruddy Patricio DO [address] [place], [place] 182161 Hematology/Oncology 12/25/21 Alexandra Chavez, RN Registered Nurse Women's Health Specialist 05/25/22 Ary Borden MD [address] [place] [address] Gynecology 06/01/22 Samra Cee APRN.STORE LOSS PREVENTION MANAGER [address] [place] [address] Gynecology 06/01/22 Maegan Murguia RN Specialty Chief Of Service Oncology 06/14/22 Tiffany To LISW [address] [place] [address] Metal Shaping Machine Operator Hematology/Oncology 12/28/22 Deck Officer Relationship Specialty Start Date End Date Vern Bernardo MD [address] [place] [address] PCP - General Internal Medicine 08/03/21 Ruddy Puri MD [address] [place] [address] Referring Cardiology 10/25/21 Nir Roth MD [facility] [address] [place] [address] Primary Staff Physician Cardiology 11/03/21 Ruddy Patricio DO [address] [place] [address] Hematology/Oncology 12/25/21 Alexandra Chavez, RN Registered Nurse Women's Health Specialist 05/25/22 Ary Borden MD [address] [place] [address] Gynecology 06/01/22 Samra Cee APRN.STORE LOSS PREVENTION MANAGER [address] [place] [address] Gynecology 06/01/22 Maegan Murguia RN Specialty Chief Of Service Oncology 06/14/22 Tiffany To LISW [address] [place] [address] Metal Shaping Machine Operator Hematology/Oncology 12/28/22 Deck Officer Relationship Specialty Start Date End Date Vern Bernardo MD [address] [place] [address] PCP - General Internal Medicine 08/03/21 Ruddy Puri MD [address] [place] [address] Referring Cardiology 10/25/21 Nir Roth MD [facility] [address] [place] [address] Primary Staff Physician Cardiology 11/03/21 Ruddy Patricio DO [address] [place] [address] Hematology/Oncology 12/25/21 Alexandra Chavez, REG Registered Nurse Women's Health Specialist 05/25/22 Ary Borden MD [address] [place] [phone] Gynecology 06/01/22 Samra Cee, MULTICUT LINE OPERATOR.STORE LOSS PREVENTION MANAGER [address] [place] [address] Gynecology 06/01/22 Maegan Murguia RN Specialty Chief Of Service Oncology 06/14/22 Tiffany To LISW [address] [place] [address] Metal Shaping Machine Operator Hematology/Oncology 12/28/22 Deck Officer Relationship Specialty Start Date End Date Vern Bernardo MD [address] [place] [address] PCP - General Internal Medicine 08/03/21 Ruddy Puri MD [address] [place] [address] Referring Cardiology 10/25/21 Nir Roth MD [facility] [address] [place] [address] Primary Staff Physician Cardiology 11/03/21 Ruddy Patricio DO [address] [place] [address] Hematology/Oncology 12/25/21 Alexandra Chavez, REG Registered Nurse Women's Health Specialist 05/25/22 Ary Borden MD [address] [place] [address] Gynecology 06/01/22 Samra Cee, MULTICUT LINE OPERATOR.STORE LOSS PREVENTION MANAGER [address] [place] [address] Gynecology 06/01/22 Maegan Murguia RN Specialty Chief Of Service Oncology 06/14/22 Tiffany To LISW [address] [place] [address] Metal Shaping Machine Operator Hematology/Oncology 12/28/22 Deck Officer Relationship Specialty Start Date End Date Vern Bernardo MD [address] [place] [address] PCP - General Internal Medicine 08/03/21 Ruddy Puri MD [address] [place] [address] Referring Cardiology 10/25/21 Nir Roth MD [facility] [address] [place] [address] Primary Staff Physician Cardiology 11/03/21 Ruddy Patricio DO [address] [facility] [place], [place] 744311 Hematology/Oncology 12/25/21 Alexandra Chavez, REG Registered Nurse Women's Health Specialist 05/25/22 Ary Borden MD [address] [place] [address] Gynecology 06/01/22 Samra Cee, MULTICUT LINE OPERATOR.[facility] [address] [place] [address] Gynecology 06/01/22 Maegan Murguia RN Specialty Chief Of Service Oncology 06/14/22 Tiffany To LISW [address] [place] [address] Metal Shaping Machine Operator Hematology/Oncology 12/28/22 Deck Officer Relationship Specialty Start Date End Date Vern Bernardo MD [address] [place] [address] PCP - General Internal Medicine 08/03/21 Ruddy Puri MD [address] [place] [address] Referring Cardiology 10/25/21 Nir Roth MD [facility] [address] [place] [address] Primary Staff Physician Cardiology 11/03/21 Ruddy Patricio DO [address] [facility] [place], [place] 0[address]281 Hematology/Oncology 12/25/21 Alexandra Chavez, RN Registered Nurse Women's Health Specialist 05/25/22 Ary Borden MD [address] [place] [address] Gynecology 06/01/22 Samra Cee APRN.STORE LOSS PREVENTION MANAGER [address] [place], [place] [phone] Gynecology 06/01/22 Maegan Murguia RN Specialty Chief Of Service Oncology 06/14/22 Tiffany To LISW [address] [place] [address] Metal Shaping Machine Operator Hematology/Oncology 12/28/22 Deck Officer Relationship Specialty Start Date End Date Vern Bernardo MD [address] [place] [address] PCP - General Internal Medicine 08/03/21 Ruddy Puri MD [address] [place] [address] Referring Cardiology 10/25/21 Nir Roth MD [facility] [address] [place], [place] [phone] Primary Staff Physician Cardiology 11/03/21 Ruddy Patricio DO [address] [place] [address] Hematology/Oncology 12/25/21 Alexandra Chavez, RN Registered Nurse Women's Health Specialist 05/25/22 Ary Borden MD [address] [place] [address] Gynecology 06/01/22 Samra Cee APRN.STORE LOSS PREVENTION MANAGER [address] [place] [address] Gynecology 06/01/22 Maegan Murguia RN Specialty Chief Of Service Oncology 06/14/22 Tiffany To LISW [address] [place] [address] Metal Shaping Machine Operator Hematology/Oncology 12/28/22 Deck Officer Relationship Specialty Start Date End Date Vern Bernardo MD [address] [place] [address] PCP - General Internal Medicine 08/03/21 Ruddy Puri MD [address] [place] [address] Referring Cardiology 10/25/21 Nir Roth MD [facility] [address] [place] [phone] Primary Staff Physician Cardiology 11/03/21 Ruddy Patricio DO [address] [place] [address] Hematology/Oncology 12/25/21 Alexandra Chavez, REG Registered Nurse Women's Health Specialist 05/25/22 Ary Borden MD [address] [place] [id number] Gynecology 06/01/22 Samra Cee, ARMANI.STORE LOSS PREVENTION MANAGER [address] [place] [address] Gynecology 06/01/22 Maegan Murguia RN Specialty Chief Of Service Oncology 06/14/22 Tiffany To, SILAS [address] [place] [address] Metal Shaping Machine Operator Hematology/Oncology 12/28/22 Deck Officer Relationship Specialty Start Date End Date Vern Bernardo MD [address] [place], [place] 315101 PCP - General Internal Medicine 08/03/21 Ruddy Puri MD [address] [place] [address] Referring Cardiology 10/25/21 Nir Roth MD [facility] [address] [place] [address] Primary Staff Physician Cardiology 11/03/21 Ruddy Patricio DO [address] [place] [address] Hematology/Oncology 12/25/21 Alexandra Chavez, REG Registered Nurse Women's Health Specialist 05/25/22 Ary Borden MD [address] [place] [address] Gynecology 06/01/22 Samra Cee, MULTICUT LINE OPERATOR.[facility] [address] [place] [address] Gynecology 06/01/22 Maegan Murguia RN Specialty Chief Of Service Oncology 06/14/22 Tiffany To LISW [address] [place] [address] Metal Shaping Machine Operator Hematology/Oncology 12/28/22 Deck Officer Relationship Specialty Start Date End Date Vern Bernardo MD [address] [place], [place] [id number] PCP - General Internal Medicine 08/03/21 Ruddy Puri MD [address] [place] [address] Referring Cardiology 10/25/21 Nir Roth MD [facility] [address] [place] [address] Primary Staff Physician Cardiology 11/03/21 Ruddy Patricio DO [address] [place] [address] Hematology/Oncology 12/25/21 Alexandra Chavez, REG Registered Nurse Women's Health Specialist 05/25/22 Ary Borden MD [facility] [place] [id number] Gynecology 06/01/22 Samra Cee, MULTICUT LINE OPERATOR.STORE LOSS PREVENTION MANAGER [facility] [place] [id number] Gynecology 06/01/22 Maegan Murguia RN Specialty Chief Of Service Oncology 06/14/22 Tiffany To LISW [address] [place] [address] Metal Shaping Machine Operator Hematology/Oncology 12/28/22 Deck Officer Relationship Specialty Start Date End Date Vern Bernardo MD [address] [place] [address] PCP - General Internal Medicine 08/03/21 Ruddy Puri MD [address] [place] [address] Referring Cardiology 10/25/21 Nir Roth MD [facility] [address] [place] [address] Primary Staff Physician Cardiology 11/03/21 Ruddy Patricio DO [address] [place] [address] Hematology/Oncology 12/25/21 Alexandra Chavez, RN Registered Nurse Women's Health Specialist 05/25/22 Ary Borden MD [address] [place] [address] Gynecology 06/01/22 Samra Cee APRN.[facility] [address] [place] [address] Gynecology 06/01/22 Maegan Murguia RN Specialty Chief Of Service Oncology 06/14/22 Tifafny To LISW [address] [place] [address] Metal Shaping Machine Operator Hematology/Oncology 12/28/22 Deck Officer Relationship Specialty Start Date End Date Vern Bernardo MD [address] [place] [address] PCP - General Internal Medicine 08/03/21 Ruddy Puri MD [address] [place] [address] Referring Cardiology 10/25/21 Nir Roth MD [facility] [address] [place] [address] Primary Staff Physician Cardiology 11/03/21 Ruddy Patricio DO [address] [place] [address] Hematology/Oncology 12/25/21 Alexandra Chavez, RN Registered Nurse Women's Health Specialist 05/25/22 Ary Borden MD [address] [place] [address] Gynecology 06/01/22 Samra Cee, MULTICUT LINE OPERATOR.STORE LOSS PREVENTION MANAGER [address] [place] [address] Gynecology 06/01/22 Maegan Murguia RN Specialty Chief Of Service Oncology 06/14/22 Tiffany To LISW [address] [place] [address] Metal Shaping Machine Operator Hematology/Oncology 12/28/22 Deck Officer Relationship Specialty Start Date End Date Vern Bernardo MD [address] [place] [address] PCP - General Internal Medicine 08/03/21 Ruddy Puri MD [address] [place] [address] Referring Cardiology 10/25/21 Nir Roth MD [facility] [address] [place] [address] Primary Staff Physician Cardiology 11/03/21 Ruddy Patricio DO [address] [place] [address] Hematology/Oncology 12/25/21 Alexandra Chavez, REG Registered Nurse Women's Health Specialist 05/25/22 Ary Borden MD [address] [place] [address] Gynecology 06/01/22 Samra Cee, MULTICUT LINE OPERATOR.STORE LOSS PREVENTION MANAGER [address] [place] [address] Gynecology 06/01/22 Maegan Murguia RN Specialty Chief Of Service Oncology 06/14/22 Tiffany To LISW [address] [place] [address] Metal Shaping Machine Operator Hematology/Oncology 12/28/22 Deck Officer Relationship Specialty Start Date End Date Vern Bernardo MD [address] [place] [address] PCP - General Internal Medicine 08/03/21 Ruddy Puri MD [address] [place] [address] Referring Cardiology 10/25/21 Nir Roth MD [facility] [address] [place] [address] Primary Staff Physician Cardiology 11/03/21 Ruddy Patricio DO [address] [place] [address] Hematology/Oncology 12/25/21 Alexandra Chavez, REG Registered Nurse Women's Health Specialist 05/25/22 Ary Borden MD [address] [place] [address] Gynecology 06/01/22 Samra Cee, MULTICUT LINE OPERATOR.[facility] [address] [place] [address] Gynecology 06/01/22 Maegan Murguia RN Specialty Chief Of Service Oncology 06/14/22 Tiffany To LISW [address] [place] [address] Metal Shaping Machine Operator Hematology/Oncology 12/28/22 Deck Officer Relationship Specialty Start Date End Date Vern Bernardo MD [address] [place] [address] PCP - General Internal Medicine 08/03/21 Ruddy Puri MD [address] [place] [address] Referring Cardiology 10/25/21 Nir Roth MD [facility] [address] [place] [address] Primary Staff Physician Cardiology 11/03/21 Ruddy Patricio DO [address] [place] [address] Hematology/Oncology 12/25/21 Alexandra Chavez, REG Registered Nurse Women's Health Specialist 05/25/22 Ary Borden MD [facility] [place] [address] Gynecology 06/01/22 Samra Cee, MULTICUT LINE OPERATOR.STORE LOSS PREVENTION MANAGER [address] [place] [address] Gynecology 06/01/22 Maegan Murguia, REG Specialty Chief Of Service Oncology 06/14/22 Tiffany To LISW [address] [place] [address] Metal Shaping Machine Operator Hematology/Oncology 12/28/22 Deck Officer Relationship Specialty Start Date End Date Vern Bernardo MD [address] [place] [address] PCP - General Internal Medicine 08/03/21 Ruddy Puri MD [address] [place] [address] Referring Cardiology 10/25/21 Nir Roth MD [facility] [address] [place] [address] Primary Staff Physician Cardiology 11/03/21 Ruddy Patricio DO [address] [place] [address] Hematology/Oncology 12/25/21 Alexandra Chavez, RN Registered Nurse Women's Health Specialist 05/25/22 Ary Borden MD [address] [place] [address] Gynecology 06/01/22 Samra Cee, MULTICUT LINE OPERATOR.[facility] [address] [place] [address] Gynecology 06/01/22 Maegan Murguia RN Specialty Chief Of Service Oncology 06/14/22 Tiffany To LISW [address] [place] [address] Metal Shaping Machine Operator Hematology/Oncology 12/28/22 Deck Officer Relationship Specialty Start Date End Date Vern Bernrado MD [address] [place] [address] PCP - General Internal Medicine 08/03/21 Ruddy Puri MD [address] [place] [address] Referring Cardiology 10/25/21 Nir Roth MD [facility] [address] [place] [address] Primary Staff Physician Cardiology 11/03/21 Ruddy Patricio DO [address] [place], [place] [address] Hematology/Oncology 12/25/21 Alexandra Chavez, RN Registered Nurse Women's Health Specialist 05/25/22 Ary Borden MD [address] [place] [address] Gynecology 06/01/22 Samra Cee, MULTICUT LINE OPERATOR.STORE LOSS PREVENTION MANAGER [address] [place] [address] Gynecology 06/01/22 Maegan Murguia, RN Specialty Chief Of Service Oncology 06/14/22 Tiffany To LISW [address] [place] [address] Metal Shaping Machine Operator Hematology/Oncology 12/28/22 Team Status: Inactive Member Role Status Dates Dr. Vern Bernardo MD Primary Care Provider Active Start: May 01, 2024 End: May 01, 2024 Dr. Vern Bernardo MD Attending Provider Active Start: May 01, 2024 End: May 01, 2024 Dr. Vern Bernardo MD Referring Provider Active Start: May 01, 2024 End: May 01, 2024 Team Status: Inactive Member Role Status Dates Dr. Vern Bernardo MD Primary Care Provider Active Start: July 09, 2024 End: July 09, 2024 Dr. Vern Bernardo MD Attending Provider Active Start: July 09, 2024 End: July 09, 2024 Team Status: Inactive Member Role Status Dates Dr. Vern Bernardo MD Primary Care Provider Active Start: August 25, 2024 End: August 25, 2024 Dr. Vern Bernardo MD Referring Provider Active Start: August 25, 2024 End: August 25, 2024 Terrell Gutiérrez PA, PA Attending Provider Active Start: August 25, 2024 End: August 25, 2024 Deck Officer Relationship Specialty Start Date End Date Vern Bernardo MD [address] [place] [address] PCP - General Internal Medicine 08/03/21 Ruddy Puri MD [address] [place] [address] Referring Cardiology 10/25/21 Nir Roth MD [facility] [address] [place] [address] Primary Staff Physician Cardiology 11/03/21 Ruddy Patricio DO [address] [place] [address] Hematology/Oncology 12/25/21 Alexandra Chavez, REG Registered Nurse Women's Health Specialist 05/25/22 Ary Borden MD [address] [place] [address] Gynecology 06/01/22 Samra Cee APRN.[facility] [address] [place] [address] Gynecology 06/01/22 Maegan Murguia RN Specialty Chief Of Service Oncology 06/14/22 Tiffany To LISW [address] [place] [address] Metal Shaping Machine Operator Hematology/Oncology 12/28/22 Team Status: Active Member Role/Relationship Status Dates No Primary Care Physician Family Provider Active Dr. Vern Bernardo MD Primary Care Provider Active Team Status: Inactive Member Role/Relationship Status Dates Dr. Vern Bernardo MD Primary Care Provider Active Start: July 09, 2024 End: July 09, 2024 Dr. Vern Bernardo MD Attending Provider Active Start: July 09, 2024 End: July 09, 2024 Team Status: Inactive Member Role/Relationship Status Dates Dr. Vern Bernardo MD Primary Care Provider Active Start: August 25, 2024 End: August 25, 2024 Dr. Vern Bernardo MD Referring Provider Active Start: August 25, 2024 End: August 25, 2024 Terrell CARTWRIGHT, PA Attending Provider Active Start: August 25, 2024 End: August 25, 2024 Team Status: Inactive Member Role/Relationship Status Dates Dr. Vern Bernardo MD Primary Care Provider Active Start: October 16, 2024 End: October 16, 2024 Dr. Vern Bernardo MD Referring Provider Active Start: October 16, 2024 End: October 16, 2024 Armen CARTWRIGHT, PA Attending Provider Active Sta rt: October 16, 2024 End: October 16, 2024 Deck Officer Relationship Specialty Start Date End Date Vern Bernardo MD [address] [place] [address] PCP - General Internal Medicine 08/03/21 Ruddy Puri MD [address] [place] [address] Referring Cardiology 10/25/21 Nir Roth MD [facility] [address] [place] [address] Primary Staff Physician Cardiology 11/03/21 Ruddy Patricio DO [address] [place] [address] Hematology/Oncology 12/25/21 Alexandra Chavez, REG Registered Nurse Women's Health Specialist 05/25/22 Ary Borden MD [address] [place] [address] Gynecology 06/01/22 Samra Cee, MULTICUT LINE OPERATOR.STORE LOSS PREVENTION MANAGER [address] [place] [address] Gynecology 06/01/22 Maegan Murguia, REG Specialty Chief Of Service Oncology 06/14/22 Tiffany To LISW [address] [place] [address] Metal Shaping Machine Operator Hematology/Oncology 12/28/22 INFORMATION SOURCE (unrecogn ized section and content) DATE CREATED AUTHOR 04/24/2022 [facility] DATE CREATED AUTHOR AUTHOR'S ORGANIZ ATION 07/07/2022 [facility] DATE CREATED AUTHOR AUTHOR'S ORGANIZ ATION 10/19/2024 [facility] DATE CREATED AUTHOR AUTHOR'S ORGANIZ ATION 01/03/2025 [facility] FOR RECORDS PERTAINING TO PATIENTS WHO ARE OR HAVE BEEN ENROLLED IN A CHEMICAL DEPENDENCY/SUBSTANCEABUSE PROGRAM, SOME INFORMATION MAY BE OMITTED. This clinical summary was aggregated from multiple sources. Caution should be exercised in using it in the provision of clinical care. This summary normalizes information from multiple sources, and as a consequence, information in this document may materially change the coding, format and clinical context of patient data. In addition, data may be omitted in some cases. CLINICAL DECISIONS SHOULD BE BASED ON THE PRIMARY CLINICAL RECORDS. [facility] [employer] [facility]. provides no warranty or guarantee of the accuracy or completeness of information in this document.
[2025-01-24 16:52] LABS: AST(SGOT) 25 U/L (<=31); Alanine Aminotransfer ALT/SGPT 13 U/L (<=34); Albumin, Serum 4.2 g/dL (3.4-4.8); Alkaline Phosphatase 94 U/L (35-104); Anion Gap 13 (5-15); BUN 21 mg/dL (4-19); BUN/Creat Ratio 15.3 RATIO (10-20); Bilirubin, Direct 0.34 mg/dL (0.00-0.30); Calcium,Total 9.7 mg/dL (7.6-11.0); Carbon Dioxide 24.6 mmol/L (21.0-32.0); Chloride 101 mmol/L (98-108); Estimated Creatinine Clearance 23.35 ml/min (50-250); Globulin 3.3 g/dL (2.2-4.2); Glucose 119 mg/dL (70-99); Lipase 20 U/L (13-75); Potassium 3.9 mmol/L (3.3-5.1); Troponin T High Sensitivity 24 ng/L (<=14)
[2025-01-24 18:23] LABS: Differential Comment SCANNED
--- NOTE | 2025-01-24 18:45 | ED.RN ---
RADIOLOGY CALLED FOR DELAY IN CHEST X-RAY RESULTS. RESPONSE, WE WILL LOOK INTO IT
[2025-01-24 19:15] LABS: Troponin T High Sens 2 HR 23 ng/L (<=14)
--- NOTE | 2025-01-24 20:05 | CM.ED ---
Social Work Date of referral: 01/24/25 Reason for referral: No Advanced Care Directives (ACD's) on file. Referred by: Social Work Identification Patient provided consent to social work visit. clay processing factory worker asked patient to bring in a copy of ACD's which patient agreed to do. Monica Mcqueen, BATCH ROOM TECHNICIAN, FLATLOCK SEWING MACHINE OPERATOR
== END 2025-01-24 20:04 | disposition home or self-care (01) ==
PROVIDERS: Emergency Provider Emergency Medicine; PCP Internal Medicine; Visit Provider Emergency Medicine
DX: K21.9 Gastro-esophageal reflux disease without esophagitis (principal); R07.9 Chest pain, unspecified; E78.2 Mixed hyperlipidemia; N18.9 Chronic kidney disease, unspecified; Z79.01 Long term (current) use of anticoagulants; Z79.890 Hormone replacement therapy; Z79.899 Other long term (current) drug therapy; Z95.2 Presence of prosthetic heart valve; Z87.891 Personal history of nicotine dependence
CPT/HCPCS: 71045; 80048; 80076; 83690; 84484; 85025; 93005; 99284; A4216

== ENCOUNTER → 2025-02-10 | Outpatient (CLI) | payer MEDICARE, OTHER, SELFPAY ==
--- NOTE | 2025-02-10 10:14 | US_ITS ---
PROCEDURE: GALLBLADDER 02/10/2025 REASON FOR EXAM: ABDOMINAL BLOATING, UPPER AB PAIN TECHNIQUE: Procedure Code: USGB Modality: US Procedure: GALLBLADDER COMPARISON: None FINDINGS: Liver: Grossly normal size and echotexture. Gallbladder: No stones, sludge, wall thickening or tenderness. Common bile duct: Normal measuring 3.3 mm . Pancreas: Normal Other: The right kidney measures 11.7 cm x 5 cm 4.7 cm. Renal cortex measures 1.5 cm. Multiple right renal cysts are seen. The largest measures 3.6 cm 3.5 cm 2.7 cm. US/Gallbladder IMPRESSION: Right renal cysts. No other abnormality is seen. Reading Location: [facility]
== END | disposition home or self-care (01) ==
LOC: US 10:10
PROVIDERS: PCP Internal Medicine; Referring Provider Internal Medicine; Visit Provider Internal Medicine
DX: R10.10 Upper abdominal pain, unspecified (principal); R14.0 Abdominal distension (gaseous); K21.9 Gastro-esophageal reflux disease without esophagitis
CPT/HCPCS: 76705